=== PATIENT | female | born 1980 | race American Indian/Alaskan Native ===

== ENCOUNTER 2016-07-14 02:54 | Inpatient (IN) | payer MEDICARE, OTHER ==
[2016-07-14 02:54] VITALS: BMI 37.5
[2016-07-14] MEDS ORDERED: Sodium Chloride 0.9% 1,000 ML IV ONE ×2 (03:44→05:05)
[2016-07-14] MEDS ORDERED: Sodium Chloride 0.9% 1,000 ML ONE ×2 (04:02→06:30)
[2016-07-14 04:09] LABS: BASO % 0.5 % (0.0-2.0); EOS # 0.5 K/uL (0.0-0.7); HEMATOCRIT 38.5 % (34.0-47.0); LYMPH # 2.4 K/uL (1.0-4.3); LYMPH % 27.1 % (20.0-40.0); MEAN CELL VOLUME 81.5 fL (81.0-99.0); MEAN CORPUSCULAR HEMOGLOBIN 26.3 pg (27.0-31.0); MEAN CORPUSCULAR HGB CONC 32.2 g/dL (33.0-37.0); MEAN PLATELET VOLUME 7.5 fL (7.2-11.7); MONO # 0.7 K/uL (0.0-0.8); RED CELL DISTRIBUTION WIDTH 15.6 % (11.5-14.5); WHITE BLOOD COUNT 8.7 K/uL (4.8-10.8)
[2016-07-14 04:21] LABS: POTASSIUM 4.3 mmol/L (3.6-5.2)
[2016-07-14 04:24] LABS: ALB/GLOB RATIO 0.7 (1.0-2.1); BILIRUBIN,TOTAL 0.3 mg/dL (0.2-1.3); CALCIUM 8.9 mg/dl (8.6-10.4); TOTAL PROTEIN 8.3 g/dL (6.3-8.3)
--- NOTE | 2016-07-14 05:17 | C.PDOC ---
History Of Present Illness 35 year old patient, with a past medical history of diabetes, hypertension, DVT , HIV, and peripheral edema, presents to the ED complaining of multiple episodes of persistent diarrhea for the past 1 week. Patient also complains of occasional episodes of vomiting, as well as diaphoretis, (but unsure if had a fever). Patient denies any abdominal pain, chest pain, shortness of breath, dysuria/hematuria. She admits to being non-compliant with HAART and is unsure of her CD4 count or viral load. Time Seen by Provider: 07/14/16 03:04 Chief Complaint (Nursing): GI Problem History Per: Patient History/Exam Limitations: no limitations Onset/Duration Of Symptoms: Persistent (1 week) Current Symptoms Are (Timing): Still Present Severity: Moderate Quality Of Discomfort: "Pain" Associated Symptoms: Nausea, Vomiting, Diarrhea, Other Exacerbating Factors: None Alleviating Factors: None Last Bowel Movement: Today Past Medical History Reviewed: Historical Data, Nursing Documentation, Vital Signs Vital Signs: Last Vital Signs Temp 97.9 F 07/15/16 08:00 Pulse 98 H 07/15/16 08:00 Resp 20 07/15/16 08:00 BP 136/88 07/15/16 08:00 Pulse Ox 98 07/15/16 08:00 - Medical History PMH: Depression, Diabetes, Deep Vein Thrombosis, HIV, HTN, Peripheral Edema, Chronic Pain Surgical History: - [facility] Procedures ANAL FISTULOTOMY (03/15/13) CENTRAL VENOUS CATHETER PLACEMENT WITH GUIDANCE (08/24/13) DEBRIDEMENT OF NAIL, NAIL BED OR NAIL FOLD (07/09/14) DETACHMENT AT LEFT 1ST TOE, COMPLETE, OPEN APPROACH (02/12/16) DETACHMENT AT LEFT 3RD TOE, COMPLETE, OPEN APPROACH (03/20/15) DETACHMENT AT LEFT 4TH TOE, COMPLETE, OPEN APPROACH (03/20/15) DETACHMENT AT LEFT FOOT, PARTIAL 3RD RAY, OPEN APPROACH (10/23/15) DETACHMENT AT LEFT FOOT, PARTIAL 4TH RAY, OPEN APPROACH (10/23/15) DRAINAGE OF BUTTOCK SUBCU/FASCIA, OPEN APPROACH (05/16/15) DRAINAGE OF LEFT FOOT, OPEN APPROACH (06/11/15) ELECTROCOAG RECT LES NEC (03/15/13) EXCIS DEBRIDE OF WOUND, INFECT, OR BURN (08/28/14) EXCISION OF L FOOT SUBCU/FASCIA, OPEN APPROACH (10/23/15) EXCISION OF LEFT FOOT SKIN, EXTERNAL APPROACH (06/27/15) EXCISION OF LEFT METATARSAL, OPEN APPROACH (02/12/16) EXCISION OF LEFT TOE PHALANX, OPEN APPROACH (02/12/16) EXCISION OF TOE NAIL, EXTERNAL APPROACH (02/12/16) INJECT ANTIBIOTIC (02/08/14) INJECT STEROID (02/09/12) INJECTION INTO JOINT (02/09/12) INSERTION OF INFUSION DEV INTO L SUBCLAV VEIN, PERC APPROACH (10/23/15) INSERTION OF INFUSION DEV INTO SUP VENA CAVA, PERC APPROACH (02/12/16) LOC EXC LES METATAR/TAR (12/09/13) OTH LOCAL EXC OR DEST OF LESION OR TISSUE OF ANUS (03/15/13) OTHER SKIN & SUBQ I D (10/24/14) PART OSTECT-METATAR/TAR (07/09/14) VASCULAR CATH IRRIGATION (01/10/14) VENOUS CATHETERIZATION NEC (01/18/14) Family History: States: ID, CAD, Diabetes, Hypertension - Social History Hx Tobacco Use: No Hx Alcohol Use: Yes Hx Substance Use: No - Immunization History Hx Tetanus Toxoid Vaccination: Yes Hx Influenza Vaccination: No Hx Pneumococcal Vaccination: Yes Review Of Systems Except As Marked, All Systems Reviewed And Found Negative. Constitutional: Positive for: Sweats. Negative for: Fever Cardiovascular: Negative for: Chest Pain, Palpitations Respiratory: Negative for: Cough, Shortness of Breath Gastrointestinal: Positive for: Nausea, Vomiting, Diarrhea. Negative for: Abdominal Pain Genitourinary: Negative for: Dysuria, Hematuria Physical Exam - Physical Exam Appears: Well, Non-toxic, No Acute Distress Skin: Warm, Dry Head: Normacephalic Eye(s): bilateral: Normal Inspection Oral Mucosa: Moist Throat: Normal Neck: Normal, Normal ROM, Supple Cardiovascular: Rhythm Regular (tachycardic) Respiratory: Normal Breath Sounds, No Rales, No Rhonchi, No Wheezing Gastrointestinal/Abdominal: Normal Exam, Bowel Sounds, Soft, No Tenderness, No Guarding, No Rebound, Other (obese) Back: Normal Inspection, No CVA Tenderness Extremity: Normal ROM Neurological/Psych: Oriented x3 Gait: Steady ED Course And Treatment - Laboratory Results Result Diagrams: 07/14/16 04:04 07/14/16 04:04 O2 Sat by Pulse Oximetry: 100 (RA) Pulse Ox Interpretation: Normal Progress Note: Blood work ordered and reviewed. Patient given IV NS bolus. Patient without abdominal pain currently, did not need pain medication. - Physician Consult Information Physician Contacted: Art Nathan Outcome Of Conversation: Spoke with Dr. Haven Nathan, agrees with admission for dehydration, acute renal failure, persistent diarrhea, HIV noncompliant with HAART. Dr. Del Valle is ID. Disposition - Disposition Disposition: HOSPITALIZED Disposition Time: 06:14 Condition: STABLE - Clinical Impression Clinical Impression: Dehydration, GAEL (acute kidney injury), Diarrhea, HIV (human immunodeficiency virus infection), Noncompliance with medication regimen - Scribe Statement The provider has reviewed the documentation as recorded by the Scribe Linda Nathan Provider Attestation: All medical record entries made by the Scribe were at my direction and personally dictated by me. I have reviewed the chart and agree that the record accurately reflects my personal performance of the history, physical exam, medical decision making, and the department course for this patient. I have also personally directed, reviewed, and agree with the discharge instructions and disposition. Decision To Admit - Pt Status Changed To: Hospital Disposition Of: Inpatient - Admit Certification Admit to Inpatient:: After my assessment, the patient will require hospitalization for at least two midnights. This is because of the severity of symptoms shown, intensity of services needed, and/or the medical risk in this patient being treated as an outpatient. - InPatient: Physician Admission Certification: I certify that this patient requires 2 or more midnights of care for the following reason:: see notes - . Bed Request Type: Regular Admitting Physician: Art Nathan Patient Diagnosis: Dehydration, GAEL (acute kidney injury), Diarrhea, HIV (human immunodeficiency virus infection), Noncompliance with medication regimen
[2016-07-14] MEDS ORDERED: Sodium Chloride 0.9% 0 ML IV ONE (06:30)
--- NOTE | 2016-07-14 10:08 | HP ---
This is a 35-year-old female, came to the Emergency Room with history of multiple episodes of persist ent diarrhea for the past week. The patient also complains of subscapular episodes of vomiting. Per the patient, also diaphoretic. The patient is unsure about the fever. The patient denies having an y abdominal pain, chest pain, or shortness of breath. No dysuria or hematuria. The patient reports she is noncompliant with her medications, and unsure about her CD4 count. REVIEW OF SYSTEMS: CARDIOVASCULAR SYSTEM: Negative for chest pain. RESPIRATORY SYSTEM: Positive for cough. No shortness of breath. GASTROINTESTINAL SYSTEM: As mentioned above. CENTRAL NERVOUS SYSTEM: Generalized weakness present. No loss of consciousness. No edema of the le gs. The patient has a history of osteomyelitis. No urinary complaints. All other systems are negative. PSYCHIATRICALLY: The patient is stable. PAST HISTORY: History of HIV positive, diabetes, hypertension, deep vein thrombosis, peripheral new a. Depression. Chronic pain. ALLERGIES: THE PATIENT IS ALLERGIC TO TYLENOL, ASPIRIN, KETOROLAC. FAMILY HISTORY: No known inherited disease. SOCIAL HISTORY: Alcohol use present. No tobacco, and denies IVDA. MEDICATIONS: Reviewed by me. On physical examination, this is a 35-year-old female, awake, alert, weak, with fatigue. Temperature 97.8, pulse 95, respiration 18, and blood pressure 125/87 mmHg, pulse ox is 100 at room a ir. HENT: Normal. JVP is flat. Carotids, no bruits. LUNGS: No rales, no wheezing. HEART: S1, S2 normal. No gallop, no murmur. ABDOMEN: Soft, nontender, no organomegaly. CENTRAL NERVOUS SYSTEM: No focal neurological deficits. SKIN: Dry and warm. On admission, white cell count is within normal limit. Hemoglobin is 12.4. BUN is 28, and creatinin e is 2.9. Blood sugar is 224. Potassium is 4.3. Chest x-ray is within normal limits. IMPRESSION: Severe dehydration. Acute renal failure. Persistent diarrhea. HIV positive. PLAN: The patient will be admitted to the floor. Will give IV fluids. Consult Dr. Del Valle for ID. Other workup as needed. Art Nathan MD cc: [phone] TT: 07/14/2016 10:07:33 jn
[2016-07-14 10:54] VITALS: RESP 20
[2016-07-14] MEDS: Sodium Chloride 0.9% 1,000 ML IV SCH ×2 (11:55→19:15)
--- NOTE | 2016-07-14 13:38 | CP.PCM.PN ---
Subjective - Date & Time of Evaluation Date of Evaluation: 07/14/16 Time of Evaluation: 13:35 - Subjective Subjective: FOUL SMELLING LT FOOT INF. AFEBRILE. DIARRHOEA. Objective - Vital Signs/Intake and Output Vital Signs (last 24 hours): Temp Pulse Resp BP Pulse Ox 98.3 F 77 20 137/94 H 99 07/14/16 10:30 07/14/16 10:30 07/14/16 10:30 07/14/16 10:30 07/14/16 10:30 - Medications Medications: Current Medications Sodium Chloride (Sodium Chloride 0.9%) 1,000 mls @ 100 mls/hr IV .Q10H [facility] Last Admin: 07/14/16 11:55 Dose: 100 mls/hr Insulin Aspart (Novolog) 0 unit SC ACHS [facility] PRN Reason: Protocol - Constitutional Appears: No Acute Distress, Chronically Ill - Eye Exam Eye Exam: Normal appearance, PERRL - ENT Exam ENT Exam: Normal Exam - Respiratory Exam Respiratory Exam: Clear to Ausculation Bilateral, NORMAL BREATHING PATTERN - Cardiovascular Exam Cardiovascular Exam: REGULAR RHYTHM, +S1, +S2 - GI/Abdominal Exam GI & Abdominal Exam: Soft, Normal Bowel Sounds - Neurological Exam Neurological Exam: Alert - Psychiatric Exam Psychiatric exam: Normal Affect, Normal Mood - Additional Findings Additional findings: LT FOOT INF. Assessment and Plan - Assessment and Plan (Free Text) Assessment: DEHYDRATION. DIARRHOEA. ARG. DM. LT FOOT OSTEO. Plan: ID AND PODIATRY EVAL.
--- NOTE | 2016-07-14 16:39 | CP.PCM.CON ---
History of Present Illness - History of Present Illness History of Present Illness: 35 y/o female well known by podiatry with left foot ulcerations. Patient presents to the hospital today due to having persistant diarrhea and vomitting for the past week. Patient states that she hasnt been following up with Dr. Coy or Eligio but has been trying to manage her wounds and has been changing her dressings at home. Patient states that she doenst feel like her infection is coming from her foot this tmie but rather feels like she has symptoms of food poisining. Patient denies having any chills or feeling febrile at home. Denies any trauma to the foot. Denies any other pedal complaints. Is present in a [place] DSD. Past Patient History - Infectious Disease Hx of Infectious Diseases: None - Past Medical History & Family History Past Medical History?: Yes - Past Social History Smoking Status: Light Smoker < 10 Cigarettes Daily - CARDIAC Hx Hypertension: Yes Hx Peripheral Edema: Yes - PULMONARY Hx Respiratory Disorders: No - NEUROLOGICAL Hx Neurological Disorder: No - HEENT Hx HEENT Problems: No - RENAL Hx Chronic Kidney Disease: No - HEMATOLOGICAL/ONCOLOGICAL Hx Human Immunodeficiency Virus (HIV): Yes - INTEGUMENTARY Hx Dermatological Problems: Yes Other/Comment: ULCER BOTTOM LEFT FOOT LEFT FOOT SUTURE LINES TOES - MUSCULOSKELETAL/RHEUMATOLOGICAL Hx Musculoskeletal Disorders: Yes Hx Falls: No Hx Osteomyelitis: Yes (LEFT FOOT, receiving daily infusion) - GASTROINTESTINAL Hx Gastrointestinal Disorders: No - GENITOURINARY/GYNECOLOGICAL Hx Genitourinary Disorders: No - PSYCHIATRIC Hx Depression: Yes Hx Substance Use: No - ANESTHESIA Hx Anesthesia: Yes Hx Anesthesia Reactions: No (unknown) Hx Malignant Hyperthermia: No Meds Allergies/Adverse Reactions: Allergies Allergy/AdvReac Type Severity Reaction Status Date / Time acetaminophen [From Tylenol] Allergy RASH Verified 04/25/16 14:37 aspirin Allergy RASH Verified 04/25/16 14:37 ketorolac tromethamine Allergy RASH Verified 04/25/16 14:37 [From Toradol] meperidine HCl [From Demerol] Allergy RASH Verified 04/25/16 14:37 oxycodone HCl [From Percocet] Allergy RASH Verified 04/25/16 14:37 peas Allergy ANAPHYLAXIS Verified 04/25/16 14:37 propoxyphene napsylate Allergy RASH Verified 04/25/16 14:37 [From Darvocet-N] - Medications Medications: Current Medications Amlodipine Besylate (Norvasc) 5 mg PO DAILY [facility] Heparin Sodium (Porcine) (Heparin) 5,000 units SC Q12 [facility] Home Med (Descovy 200-25 Mg Tablet) 1 tab PO DAILY [facility] Sodium Chloride (Sodium Chloride 0.9%) 1,000 mls @ 100 mls/hr IV .Q10H [facility] Last Admin: 07/14/16 11:55 Dose: 100 mls/hr Insulin Aspart (Novolog) 0 unit SC ACHS [facility] PRN Reason: Protocol Insulin Aspart (Novolog) 16 unit SC BID [facility] Insulin Glargine (Lantus) 16 unit SC HS [facility] Pneumococcal Polyvalent Vaccine (Pneumovax 23 Vaccine) 0.5 ml IM .ONCE ONE Stop: 07/17/16 14:01 Sertraline HCl (Zoloft) 50 mg PO DAILY [facility] Physical Exam - Constitutional Appears: Well, Non-toxic, No Acute Distress - Neurological Exam Neurological exam: Alert, Oriented x3 - Psychiatric Exam Psychiatric exam: Normal Affect, Normal Mood - Skin Skin Exam: Warm - Additional Findings Additional findings: Vasc: DP/PT non palp, Temp gradient wnl, Cap fill time diminished Derm: Porter grade 2 (possible 3?) present on the plantar aspect of the patients left foot, does not prob to bone, soft tissue felt, no undermining, (+ ) odor, no drainage, no purulence, no erythema, mild non pitting edema noted, small superficial lesion noted on plantar lateral aspect of the left foot, does not probe deep, fissured lesion, Neuro: Grossly diminished Ortho: Previous amputation. Results - Vital Signs Recent Vital Signs: Last Vital Signs Temp 97.5 F L 07/14/16 15:32 Pulse 90 07/14/16 15:32 Resp 20 07/14/16 15:32 BP 163/111 H 07/14/16 15:32 Pulse Ox 96 07/14/16 15:32 - Labs Result Diagrams: 07/14/16 04:04 07/14/16 04:04 Labs: Laboratory Results - last 24 hr 07/14/16 13:01 POC Glucose (mg/dL) 158 H Assessment & Plan - Assessment and Plan (Free Text) Assessment: 35 y/o female seen and evaluated with left foot porter grade 2 possible 3 ulceration. Plan: Patient evaluated and chart reviewed Discussed with Dr. Coy At this time foot does not appear clinically infected; although may need MRI to r/o any underlying OM. Order placed for new set of x-rays to be taken for beginning evaluation. Wound culture taken. Wound was flushed with betadine/saline mixture and redressed with betadine wet to dry and DSD. Will continue to follow while admitted
[2016-07-14] MEDS: (Novolog) Insulin Aspart, Recombinant 100 u/ml 10 ml vial SC SCH ×3 (17:24→22:00)
[2016-07-14] MEDS ORDERED: (Lantus) Insulin Glargine, Recombinant SC SCH (22:00)
[2016-07-15] MEDS: Sodium Chloride 0.9% 1,000 ML IV SCH (06:12)
[2016-07-15 09:58] VITALS: BP 136/88; PULSE 98; TEMP 97.9
[2016-07-15] MEDS ORDERED: DESCOVY PO SCH (10:00)
[2016-07-15] MEDS: (Novolog) Insulin Aspart, Recombinant 100 u/ml 10 ml vial SC SCH ×2 (10:23→10:47)
--- NOTE | 2016-07-15 10:48 | CP.PCM.PN ---
Subjective - Date & Time of Evaluation Date of Evaluation: 07/15/16 Time of Evaluation: 10:45 - Subjective Subjective: 35 y/o female with left foot ulceration with previous amputation. Patient is awake in bed stating she is frustrated that no one is treating her stomach as her diarrhea is still the worst problem she is facing. States that her foot feels fine at this time. Denies any actue overnight events. Denies any f/c/n/sob. Objective - Vital Signs/Intake and Output Vital Signs (last 24 hours): Temp Pulse Resp BP Pulse Ox 97.9 F 98 H 20 136/88 98 07/15/16 08:00 07/15/16 08:00 07/15/16 08:00 07/15/16 08:00 07/15/16 08:00 - Medications Medications: Current Medications Amlodipine Besylate (Norvasc) 5 mg PO DAILY [facility] Heparin Sodium (Porcine) (Heparin) 5,000 units SC Q12 [facility] Last Admin: 07/14/16 22:00 Dose: Not Given Home Med (Descovy 200-25 Mg Tablet) 1 tab PO DAILY [facility] Sodium Chloride (Sodium Chloride 0.9%) 1,000 mls @ 100 mls/hr IV .Q10H [facility] Last Admin: 07/15/16 06:12 Dose: Not Given Insulin Aspart (Novolog) 0 unit SC ACHS [facility] PRN Reason: Protocol Last Admin: 07/15/16 10:23 Dose: Not Given Insulin Aspart (Novolog) 16 unit SC BID [facility] Last Admin: 07/14/16 17:24 Dose: Not Given Insulin Glargine (Lantus) 16 unit SC HS [facility] Last Admin: 07/14/16 22:00 Dose: Not Given Pneumococcal Polyvalent Vaccine (Pneumovax 23 Vaccine) 0.5 ml IM .ONCE ONE Stop: 07/17/16 14:01 Sertraline HCl (Zoloft) 50 mg PO DAILY [facility] - Constitutional Appears: Well, Non-toxic - Neurological Exam Neurological Exam: Alert, Awake, Oriented x3 - Psychiatric Exam Psychiatric exam: Normal Affect, Normal Mood - Skin Skin Exam: Normal Color, Warm - Additional Findings Additional findings: Vasc: DP/PT non palp, Temp gradient wnl, Cap fill time diminished Derm: Porter grade 2 present on the plantar aspect of the patients left foot, does not prob to bone, soft tissue felt, no undermining, (+) odor, no drainage, no purulence, no erythema, mild non pitting edema noted, small superficial lesion noted on plantar lateral aspect of the left foot, does not probe deep, fissured lesion, Neuro: Grossly diminished Ortho: Previous amputation. Assessment and Plan - Assessment and Plan (Free Text) Assessment: 35 y/o female with right foot ulcerations secondary to diabetes. Plan: Patient evaluated and chart reviewed. Discussed with Dr. Coy. Discussed with Dr. Del Valle Labs evaluated; x-rays evaluated; will await final read At this time foot appears to be stable clinically; there is some bony overgrowth /chronic osteo picture on the xrays Will await culture from foot; Redressed with betadine wet to dry and DSD. Will continue to follow while admitted.
--- NOTE | 2016-07-15 11:08 | CP.PCM.PN ---
Subjective - Date & Time of Evaluation Date of Evaluation: 07/15/16 Time of Evaluation: 11:08 - Subjective Subjective: alert and oriented x3, no acute distress noted. Objective - Vital Signs/Intake and Output Vital Signs (last 24 hours): Temp Pulse Resp BP Pulse Ox 97.9 F 98 H 20 136/88 98 07/15/16 08:00 07/15/16 08:00 07/15/16 08:00 07/15/16 08:00 07/15/16 08:00 - Medications Medications: Current Medications Amlodipine Besylate (Norvasc) 5 mg PO DAILY [facility] Last Admin: 07/15/16 10:42 Dose: 5 mg Heparin Sodium (Porcine) (Heparin) 5,000 units SC Q12 [facility] Last Admin: 07/15/16 10:47 Dose: Not Given Home Med (Descovy 200-25 Mg Tablet) 1 tab PO DAILY [facility] Sodium Chloride (Sodium Chloride 0.9%) 1,000 mls @ 100 mls/hr IV .Q10H [facility] Last Admin: 07/15/16 06:12 Dose: Not Given Insulin Aspart (Novolog) 0 unit SC ACHS [facility] PRN Reason: Protocol Last Admin: 07/15/16 10:23 Dose: Not Given Insulin Aspart (Novolog) 16 unit SC BID [facility] Last Admin: 07/15/16 10:47 Dose: Not Given Insulin Glargine (Lantus) 16 unit SC HS [facility] Last Admin: 07/14/16 22:00 Dose: Not Given Pneumococcal Polyvalent Vaccine (Pneumovax 23 Vaccine) 0.5 ml IM .ONCE ONE Stop: 07/17/16 14:01 Sertraline HCl (Zoloft) 50 mg PO DAILY [facility] Last Admin: 07/15/16 10:42 Dose: 50 mg Assessment and Plan - Assessment and Plan (Free Text) Assessment: Patient notified very angry and un co-operative with needed treatments and threatening to go home. Tried to help and support but says he is unhappy with everything here and will go to some other hospital. Refused sign AMA form also.
--- NOTE | 2016-07-15 12:53 | CP.PCM.PN ---
Subjective - Date & Time of Evaluation Date of Evaluation: 07/15/16 Time of Evaluation: 10:00 - Subjective Subjective: PT NON CO-OPERATIVE. REFUSING IV FLUIDS. NO COMPLAINTS. Objective - Vital Signs/Intake and Output Vital Signs (last 24 hours): Temp Pulse Resp BP Pulse Ox 97.9 F 98 H 20 136/88 98 07/15/16 08:00 07/15/16 08:00 07/15/16 08:00 07/15/16 08:00 07/15/16 08:00 - Constitutional Appears: Non-toxic, No Acute Distress, Chronically Ill - Eye Exam Eye Exam: Normal appearance - ENT Exam ENT Exam: Normal Exam - Respiratory Exam Respiratory Exam: Clear to Ausculation Bilateral, NORMAL BREATHING PATTERN - Cardiovascular Exam Cardiovascular Exam: REGULAR RHYTHM, +S1, +S2 - GI/Abdominal Exam GI & Abdominal Exam: Soft, Normal Bowel Sounds - Extremities Exam Extremities Exam: Full ROM, Normal Capillary Refill, Normal Inspection. absent : Joint Swelling, Pedal Edema - Back Exam Back Exam: NORMAL INSPECTION - Neurological Exam Neurological Exam: Alert, Awake, CN II-XII Intact, Normal Gait, Oriented x3 Assessment and Plan - Assessment and Plan (Free Text) Assessment: DEHYDRATION. Plan: PT SIGNED OUT AMA.
--- NOTE | 2016-07-16 09:58 | RAD ---
PROCEDURE: Left Foot Radiographs. HISTORY: eval OM left foot COMPARISON: 02/21/2016 FINDINGS: BONES: The patient is amputation the 1st distal phalanges. Postop partial bony resections of the 2nd 3rd 4th and 5th proximal phalanges and corresponding distal metatarsals are renoted. The callus formation is exuberant over the 2nd through 5th metatarsal postop sites. Since the prior exam, minimal increased sclerosis -affects proximal phalanx and generalized increased density/ sclerosis of the exuberant callus formation is suggested. No gross interval periosteal reaction is appreciated. No gross osseous interval focal destruction apparent. The findings are believe insensitive for assessing for chronic osteomyelitis. No gross focal acute aggressive osteomyelitis is appreciated. If there is concern for any ulcer and regional focal osteomyelitis, an MRI may be more sensitive in evaluating for possible osteomyelitis JOINTS: Altered as above SOFT TISSUES: Normal. Soft tissues are grossly altered with edema and probable plantar lateral ulcer formation suggested. This is likely if present much more clinically evident than radiographically. OTHER FINDINGS: None. IMPRESSION: Extensive postop bony and soft tissue changes as detailed . No gross osseous interval focal destruction apparent. The findings are believed insensitive for assessing for chronic osteomyelitis given the sclerotic changes. No gross focal acute aggressive appearing osteomyelitis is appreciated. If there is concern for any ulcer and an associated regional focal osteomyelitis, an MRI may be more sensitive in evaluating for possible osteomyelitis there.
[2016-07-17] MEDS ORDERED: Pneumococcal 23-Valent Vaccine IM ONE (14:00)
[2016-07-19 18:19] VITALS: O2SAT 100
== END 2016-07-15 11:30 | disposition left against medical advice (07) | DRG 683 ==
LOC: C.ER 02:54 → C.9E 06:14 → C.5T 09:58 → C.7T 07-15 02:00 → C.5T 07-15 08:11
PROVIDERS: ADMIT Internal Medicine; ATTEND Internal Medicine
DX: N17.9 Acute kidney failure, unspecified (principal); I82.409 Acute embolism and thrombosis of unspecified deep veins of unspecified lower extremity; E11.621 Type 2 diabetes mellitus with foot ulcer; M86.9 Osteomyelitis, unspecified; E86.0 Dehydration; I10 Essential (primary) hypertension; Z21 Asymptomatic human immunodeficiency virus [HIV] infection status; Z91.14 Patient's other noncompliance with medication regimen; F32.9 Major depressive disorder, single episode, unspecified; F17.210 Nicotine dependence, cigarettes, uncomplicated; L97.529 Non-pressure chronic ulcer of other part of left foot with unspecified severity; Z79.4 Long term (current) use of insulin; E11.69 Type 2 diabetes mellitus with other specified complication

== ENCOUNTER 2016-10-29 14:24 | Inpatient (IN) | payer MEDICARE ==
[2016-10-29 14:24] VITALS: BMI 37.5
[2016-10-29] MEDS ORDERED: Piperacillin/Tazobact 3.375 GM in Sodium Chloride 100 ML IVPB STA (16:33)
--- NOTE | 2016-10-29 16:34 | C.PDOC ---
History Of Present Illness 36-year-old transgender female, PMHx includes Depression, Diabetes, Deep Vein Thrombosis, HIV, HTN, Peripheral Edema, and Chronic Pain, presents to the emergency department with complaints of left foot pain and swelling for the past 3-4 days. Patient states she took a tablet of Augmentin with no improvement. Notes difficulty walking due to pain. Time Seen by Provider: 10/29/16 15:55 Chief Complaint (Nursing): Fever History Per: Patient History/Exam Limitations: no limitations Onset/Duration Of Symptoms: Days Current Symptoms Are (Timing): Still Present Past Medical History Reviewed: Historical Data, Nursing Documentation, Vital Signs Vital Signs: Last Vital Signs Temp 98.4 F 10/29/16 18:50 Pulse 106 H 10/29/16 18:50 Resp 20 10/29/16 18:50 BP 106/72 10/29/16 18:50 Pulse Ox 97 10/29/16 19:07 - Medical History PMH: Depression, Diabetes, Deep Vein Thrombosis, HIV, HTN, Peripheral Edema, Chronic Pain Surgical History: - [facility] Procedures ANAL FISTULOTOMY (03/15/13) CENTRAL VENOUS CATHETER PLACEMENT WITH GUIDANCE (08/24/13) DEBRIDEMENT OF NAIL, NAIL BED OR NAIL FOLD (07/09/14) DETACHMENT AT LEFT 1ST TOE, COMPLETE, OPEN APPROACH (02/12/16) DETACHMENT AT LEFT 3RD TOE, COMPLETE, OPEN APPROACH (03/20/15) DETACHMENT AT LEFT 4TH TOE, COMPLETE, OPEN APPROACH (03/20/15) DETACHMENT AT LEFT FOOT, PARTIAL 3RD RAY, OPEN APPROACH (10/23/15) DETACHMENT AT LEFT FOOT, PARTIAL 4TH RAY, OPEN APPROACH (10/23/15) DRAINAGE OF BUTTOCK SUBCU/FASCIA, OPEN APPROACH (05/16/15) DRAINAGE OF LEFT FOOT, OPEN APPROACH (06/11/15) ELECTROCOAG RECT LES NEC (03/15/13) EXCIS DEBRIDE OF WOUND, INFECT, OR BURN (08/28/14) EXCISION OF L FOOT SUBCU/FASCIA, OPEN APPROACH (10/23/15) EXCISION OF LEFT FOOT SKIN, EXTERNAL APPROACH (06/27/15) EXCISION OF LEFT METATARSAL, OPEN APPROACH (02/12/16) EXCISION OF LEFT TOE PHALANX, OPEN APPROACH (02/12/16) EXCISION OF TOE NAIL, EXTERNAL APPROACH (02/12/16) INJECT ANTIBIOTIC (02/08/14) INJECT STEROID (02/09/12) INJECTION INTO JOINT (02/09/12) INSERTION OF INFUSION DEV INTO L SUBCLAV VEIN, PERC APPROACH (10/23/15) INSERTION OF INFUSION DEV INTO SUP VENA CAVA, PERC APPROACH (02/12/16) LOC EXC LES METATAR/TAR (12/09/13) OTH LOCAL EXC OR DEST OF LESION OR TISSUE OF ANUS (03/15/13) OTHER SKIN & SUBQ I D (10/24/14) PART OSTECT-METATAR/TAR (07/09/14) VASCULAR CATH IRRIGATION (01/10/14) VENOUS CATHETERIZATION NEC (01/18/14) Family History: States: [place], CAD, Diabetes, Hypertension - Social History Hx Tobacco Use: No Hx Alcohol Use: Yes Hx Substance Use: No - Immunization History Hx Tetanus Toxoid Vaccination: Yes Hx Influenza Vaccination: No Hx Pneumococcal Vaccination: Yes Review Of Systems Constitutional: Negative for: Fever, Chills Cardiovascular: Negative for: Chest Pain Respiratory: Negative for: Shortness of Breath Gastrointestinal: Negative for: Nausea, Vomiting Musculoskeletal: Positive for: Foot Pain Neurological: Negative for: Weakness, Numbness Physical Exam - Physical Exam Appears: No Acute Distress, Other (awake and alert non-toxic appearing) Skin: Warm, Dry, No Rash Head: Atraumatic, Normacephalic Eye(s): bilateral: Normal Inspection Lips: Normal Appearing Neck: Normal ROM Chest: Symmetrical Cardiovascular: Rhythm Regular, No Murmur Respiratory: Normal Breath Sounds, No Accessory Muscle Use, No Rales, No Rhonchi Gastrointestinal/Abdominal: Soft, No Tenderness Extremity: Other (Left leg markedly enlarged compared to right, there is a healing large venous stasis ulcer to left lateral leg. Left foot: cracked ulcer with foul smelling discharge and swelling) Pulses: Left Dorsalis Pedis: Normal, Right Dorsalis Pedis: Normal Neurological/Psych: Oriented x3, Normal Speech, Normal Cognition ED Course And Treatment - Laboratory Results Result Diagrams: 10/29/16 17:12 10/29/16 17:12 O2 Sat by Pulse Oximetry: 97 Medical Decision Making Medical Decision Making: pt with foot ulcer; fever. dm, hiv. for admission for iv antibiotics and podiattry consult Disposition Discussed With : Art Nathan Doctor Will See Patient In The: Hospital - Disposition Disposition: HOSPITALIZED Disposition Time: 17:14 Condition: STABLE - Clinical Impression Clinical Impression: Ulcer of foot, Diabetic foot infection - PA / INBOUND CALL CENTER REPRESENTATIVE / Resident Statement MD/DO has reviewed & agrees with the documentation as recorded. - Scribe Statement The provider has reviewed the documentation as recorded by the Scribe (Gerald Dobbs) All medical record entries made by the Scribe were at my direction and personally dictated by me. I have reviewed the chart and agree that the record accurately reflects my personal performance of the history, physical exam, medical decision making, and the department course for this patient. I have also personally directed, reviewed, and agree with the discharge instructions and disposition. Decision To Admit - Pt Status Changed To: Hospital Disposition Of: Inpatient - Admit Certification Admit to Inpatient:: After my assessment, the patient will require hospitalization for at least two midnights. This is because of the severity of symptoms shown, intensity of services needed, and/or the medical risk in this patient being treated as an outpatient. - InPatient: Physician Admission Certification:: for parenteral antibiotics for foot infection - . Bed Request Type: Regular Admitting Physician: Art Nathan Patient Diagnosis: Ulcer of foot, Diabetic foot infection
[2016-10-29] MEDS ORDERED: Dakin's Topical 0.25%-Half Strength (480 ml) TOP STA (16:52)
[2016-10-29 17:16] LABS: BASO % 0.2 % (0.0-2.0); EOS # 0.1 K/uL (0.0-0.7); EOS % 0.8 % (0.0-4.0); HEMOGLOBIN 10.8 g/dL (11.0-16.0); LYMPH # 1.6 K/uL (1.0-4.3); LYMPH % 15.2 % (20.0-40.0); MEAN CELL VOLUME 83.5 fL (81.0-99.0); MEAN CORPUSCULAR HEMOGLOBIN 27.6 pg (27.0-31.0); MEAN PLATELET VOLUME 7.3 fL (7.2-11.7); MONO # 1.2 K/uL (0.0-0.8); NEUT # 7.9 K/uL (1.8-7.0); NEUT % 72.8 % (50.0-75.0); NRBC % 0.1 % (0.0-2.0); RBC 3.92 Mil/uL (3.80-5.20); RED CELL DISTRIBUTION WIDTH 15.2 % (11.5-14.5); WHITE BLOOD COUNT 10.8 K/uL (4.8-10.8)
[2016-10-29 17:23] LABS: ALBUMIN 3.1 g/dL (3.5-5.0)
[2016-10-29 17:26] LABS: ALB/GLOB RATIO 0.6 (1.0-2.1)
[2016-10-29 17:27] LABS: CALCIUM 8.3 mg/dl (8.6-10.4)
--- NOTE | 2016-10-29 18:03 | CP.PCM.CON ---
<HarshaAliyah - Last Filed: 10/29/16 17:58> History of Present Illness - History of Present Illness History of Present Illness: 36 y/o female with pmhx of Depression, Diabetes, Deep Vein Thrombosis, HIV, HTN , Peripheral Edema, Chronic Pain, seen at bedside in the ED for left foot/leg diabetic ulcerations. Patient is well known to Dr. Coy and has been admitted for the same condition many times in the past. Patient reports fever chills x 3 days and noticed pain in her foot. She states that she has not been able to keep her food down and therefore has not been taking any of her insulin. Patient denies any trauma to her feet. She denies any other pedal complaints at this time. Review of Systems - Constitutional Constitutional: As Per HPI Past Patient History - Infectious Disease Hx of Infectious Diseases: None - Past Medical History & Family History Past Medical History?: Yes - Past Social History Smoking Status: Light Smoker < 10 Cigarettes Daily - CARDIAC Hx Hypertension: Yes Hx Peripheral Edema: Yes - PULMONARY Hx Respiratory Disorders: No - NEUROLOGICAL Hx Neurological Disorder: No - HEENT Hx HEENT Problems: No - RENAL Hx Chronic Kidney Disease: No - HEMATOLOGICAL/ONCOLOGICAL Hx Human Immunodeficiency Virus (HIV): Yes - INTEGUMENTARY Hx Dermatological Problems: Yes Other/Comment: ULCER BOTTOM LEFT FOOT LEFT FOOT SUTURE LINES TOES - MUSCULOSKELETAL/RHEUMATOLOGICAL Hx Musculoskeletal Disorders: Yes Hx Falls: No Hx Osteomyelitis: Yes (LEFT FOOT, receiving daily infusion) - GASTROINTESTINAL Hx Gastrointestinal Disorders: No - GENITOURINARY/GYNECOLOGICAL Hx Genitourinary Disorders: No - PSYCHIATRIC Hx Depression: Yes Hx Substance Use: No - ANESTHESIA Hx Anesthesia: Yes Hx Anesthesia Reactions: No (unknown) Hx Malignant Hyperthermia: No Meds Allergies/Adverse Reactions: Allergies Allergy/AdvReac Type Severity Reaction Status Date / Time acetaminophen [From Tylenol] Allergy RASH Verified 10/29/16 14:43 aspirin Allergy RASH Verified 10/29/16 14:43 ketorolac tromethamine Allergy RASH Verified 10/29/16 14:43 [From Toradol] meperidine HCl [From Demerol] Allergy RASH Verified 10/29/16 14:43 oxycodone HCl [From Percocet] Allergy RASH Verified 10/29/16 14:43 peas Allergy ANAPHYLAXIS Verified 10/29/16 14:43 propoxyphene napsylate Allergy RASH Verified 10/29/16 14:43 [From Shan-[place]] - Medications Medications: Current Medications Vancomycin HCl 1 gm/ Sodium (Chloride) 250 mls @ 166.7 mls/hr IVPB STAT STA Stop: 10/29/16 18:02 Physical Exam - Constitutional Appears: Well, Non-toxic, No Acute Distress - Extremities Exam Additional comments: Vasc: DP/PT non palp, Temp gradient wnl, Cap fill time diminished Derm: Porter grade 2 present on the plantar aspect of the patients left foot, does not prob to bone, soft tissue felt, no undermining, (+) odor, no drainage, no purulence, no erythema, mild non pitting edema noted, superficial lesion noted on lateral aspect of the left leg, does not probe deep, mixed fibro- granular base Neuro: Grossly diminished Ortho: Previous amputation. - Neurological Exam Neurological exam: Alert, Oriented x3 - Psychiatric Exam Psychiatric exam: Normal Affect, Normal Mood Results - Vital Signs Recent Vital Signs: Last Vital Signs Temp 102.3 F H 10/29/16 14:40 Pulse 121 H 10/29/16 14:40 Resp 20 10/29/16 14:40 BP 154/100 H 10/29/16 14:40 Pulse Ox 97 10/29/16 17:22 - Labs Result Diagrams: 10/29/16 17:12 10/29/16 17:12 Labs: Laboratory Results - last 24 hr 10/29/16 10/29/16 17:12 17:12 WBC 10.8 RBC 3.92 Hgb 10.8 L Hct 32.7 L MCV 83.5 D MCH 27.6 MCHC 33.0 RDW 15.2 H Plt Count 258 MPV 7.3 Neut % (Auto) 72.8 Lymph % (Auto) 15.2 L Morrow % (Auto) 11.0 H Eos % (Auto) 0.8 Baso % (Auto) 0.2 Neut # 7.9 H Lymph # 1.6 Morrow # 1.2 H Eos # 0.1 Baso # 0.0 Sodium 134 Potassium 4.6 Chloride 103 Carbon Dioxide 17 L Anion Gap 19 BUN 27 H Creatinine 2.6 H Est GFR ( Amer) 25 Est GFR (Non-Af Amer) 21 Random Glucose 170 H Calcium 8.3 L Total Bilirubin 0.8 AST 31 ALT 27 Alkaline Phosphatase 111 Total Protein 8.6 H Albumin 3.1 L Globulin 5.5 H Albumin/Globulin Ratio 0.6 L Assessment & Plan - Assessment and Plan (Free Text) Assessment: 36 y/o female seen in the ED for left foot / leg ulceration secondary to diabetes Plan: patient evaluated and chart reviewed discussed in detail with attending Dr. Coy labs and vitals reviewed; WBC 10.8, Tmax 102.3 applied dakins solution, DSD to left leg wound cx taken f/u blood cx f/u x rays patient to be admitted for IV abx ID consulted- Dr. Del Valle will continue to follow while patient remains in house <Kalpesh Coy - Last Filed: 11/02/16 09:04> Meds - Medications Medications: Current Medications Amlodipine Besylate (Norvasc) 5 mg PO DAILY [facility] Last Admin: 11/01/16 09:10 Dose: Not Given Diphenhydramine HCl (Benadryl) 25 mg PO Q6 PRN PRN Reason: Itching / Pruritus Last Admin: 11/02/16 06:11 Dose: 25 mg Heparin Sodium (Porcine) (Heparin) 5,000 units SC Q12 [facility] Last Admin: 11/01/16 21:58 Dose: Not Given Piperacillin Sod/Tazobactam Sod (Zosyn 3.375 Gm Iv Premix) 3.375 gm in 50 mls @ 100 mls/hr IVPB Q8H [facility] Last Admin: 11/02/16 01:15 Dose: 100 mls/hr Daptomycin 860 mg/ Sodium (Chloride) 100 mls @ 100 mls/hr IV Q24H [facility] Stop: 11/04/16 21:01 Last Admin: 11/01/16 21:12 Dose: 100 mls/hr Lactated Ringer's (Lactated Ringer's) 1,000 mls @ 100 mls/hr IV .Q10H [facility] Last Admin: 11/01/16 18:33 Dose: 100 mls/hr Insulin Aspart (Novolog) 0 unit SC ACHS [facility] PRN Reason: Protocol Last Admin: 11/02/16 07:58 Dose: Not Given Insulin Glargine (Lantus) 12 unit SC HS [facility] Last Admin: 11/01/16 23:03 Dose: Not Given Morphine Sulfate (Morphine) 2 mg IVP Q6H PRN PRN Reason: Pain, moderate (4-7) Last Admin: 11/02/16 06:20 Dose: 2 mg Ondansetron HCl (Zofran Inj) 4 mg IVP Q6H PRN PRN Reason: nausea and vomiting Sertraline HCl (Zoloft) 50 mg PO DAILY [facility] Last Admin: 11/01/16 10:26 Dose: 50 mg Sodium Hypochlorite (Dakins Solution 0.25%) 0 ml TOP DAILY [facility] Last Admin: 11/01/16 09:08 Dose: Not Given Results - Vital Signs Recent Vital Signs: Last Vital Signs Temp 97.6 F 11/02/16 08:41 Pulse 79 11/02/16 08:41 Resp 20 11/02/16 08:41 BP 159/89 H 11/02/16 08:41 Pulse Ox 98 11/02/16 08:41 - Labs Result Diagrams: 10/29/16 17:12 11/02/16 07:13 Labs: Laboratory Results - last 24 hr 11/01/16 11/01/16 11/01/16 11:27 14:10 14:10 PT 12.9 H INR 1.2 Sodium 139 Potassium 4.3 Chloride 105 Carbon Dioxide 22 Anion Gap 16 BUN 29 H Creatinine 3.0 H Est GFR ( Amer) 21 Est GFR (Non-Af Amer) 18 POC Glucose (mg/dL) 99 Random Glucose 107 H Fasting Glucose 107 H Calcium 8.5 L Total Bilirubin 0.6 AST 23 ALT 24 Alkaline Phosphatase 104 Total Protein 7.9 Albumin 2.7 L Globulin 5.2 H Albumin/Globulin Ratio 0.5 L 11/01/16 11/01/16 11/01/16 16:53 21:06 22:55 PT INR Sodium Potassium Chloride Carbon Dioxide Anion Gap BUN Creatinine Est GFR ( Amer) Est GFR (Non-Af Amer) POC Glucose (mg/dL) 176 H 118 H 159 H Random Glucose Fasting Glucose Calcium Total Bilirubin AST ALT Alkaline Phosphatase Total Protein Albumin Globulin Albumin/Globulin Ratio 11/02/16 11/02/16 07:13 07:13 PT INR Sodium 139 Potassium 4.5 Chloride 104 Carbon Dioxide 24 Anion Gap 16 BUN 32 H Creatinine 3.0 H Est GFR ( Amer) 21 Est GFR (Non-Af Amer) 18 POC Glucose (mg/dL) 116 H Random Glucose 116 H Fasting Glucose Calcium 8.4 L Total Bilirubin 0.5 AST 22 ALT 20 Alkaline Phosphatase 95 Total Protein 7.7 Albumin 2.7 L Globulin 5.1 H Albumin/Globulin Ratio 0.5 L Assessment & Plan - Assessment and Plan (Free Text) Plan: labs and findings reviewed . will discuss with Dr Del Valle .Dr Coy .
[2016-10-29] MEDS ORDERED: Piperacillin/Tazobact 3.375 gm 100 ML IVPB ONE (18:22)
[2016-10-29] MEDS ORDERED: Morphine 4 MG/ML VIAL ONE (18:22)
--- NOTE | 2016-10-29 18:50 | CP.PCM.CON ---
History of Present Illness - History of Present Illness History of Present Illness: 36 y/o female with pmhx of Depression, Diabetes, Deep Vein Thrombosis, HIV, HTN , Peripheral Edema, Chronic Pain, seen at bedside in the ED for left foot/leg diabetic ulcerations. Review of Systems - Constitutional Constitutional: As Per HPI - EENT Eyes: absent: As Per HPI, Blind Spots, Blurred Vision, Change in Vision, Decreased Night Vision, Diplopia, Discharge, Dry Eye, Exophthalmos, Floaters, Irritation, Itchy Eyes, Loss of Peripheral Vision, Pain, Photophobia, Requires Corrective Lenses, Sees Flashes, Spots in Vision, Tunnel Vision, Other Visual Disturbances, Loss of Vision, Other Ears: absent: As Per HPI, Decreased Hearing, Ear Discharge, Ear Pain, Tinnitus, Abnormal Hearing, Disequilibrium, Dizziness, Other Nose/Mouth/Throat: absent: As Per HPI, Epistaxis, Nasal Congestion, Nasal Discharge, Nasal Obstruction, Nasal Trauma, Nose Pain, Post Nasal Drip, Sinus Pain, Sinus Pressure, Bleeding Gums, Change in Voice, Dental Pain, Dry Mouth, Dysphagia, Halitosis, Hoarsness, Lip Swelling, Mouth Lesions, Mouth Pain, Odynophagia, Sore Throat, Throat Swelling, Tongue Swelling, Facial Pain, Neck Pain, Neck Mass, Other - Breasts Breasts: absent: As Per HPI, Change in Shape, Mass, Pain, Nipple Discharge, Nipple Inversion, Skin Changes, Swelling, Other - Cardiovascular Cardiovascular: absent: As Per HPI, Acrocyanosis, Chest Pain, Chest Pain at Rest , Chest Pain with Activity, Claudication, Diaphoresis, Dyspnea, Dyspnea on Exertion, Edema, Irregular Heart Rhythm, Pain Radiating to Arm/Neck/Jaw, Leg Edema, Leg Ulcers, Lightheadedness, Orthopnea, Palpitations, Paroxysmal Nocturnal Dyspnea, Pedal Edema, Radiating Pain, Rapid Heart Rate, Slow Heart Rate, Syncope, Other - Respiratory Respiratory: absent: As Per HPI, Cough, Dyspnea, Hemoptysis, Dyspnea on Exertion , Wheezing, Snoring, Stridor, Pain on Inspiration, Chest Congestion, Excessive Mucous Production, Change in Mucous Color, Pain with Coughing, Other - Gastrointestinal Gastrointestinal: absent: As Per HPI, Abdominal Pain, Belching, Bloating, Change in Bowel Habits, Change in Stool Character, Coffee Ground Emesis, Constipation, Cramping, Diarrhea, Dyspepsia, Dysphagia, Early Satiety, Excessive Flatus, Fecal Incontinence, Heartburn, Hematemesis, Hematochezia, Loose Stools, Melena, Nausea, Odynophagia, Temesmus, Vomiting, Other - Genitourinary Genitourinary: absent: As Per HPI, Change in Urinary Stream, Difficulty Urinating, Dysuria, Flank Pain, Hematuria, Pyuria, Nocturia, Urinary Incontinence, Urinary Frequency, Urinary Hesitance, Urinary Urgency, Voiding Freq/Small Amts, Freq UTI, Hx Renal/Bladder Calculi, Hx /Renal Surgery, Bladder Distension, Other - Reproductive: Female Reproductive:Female: absent: As Per HPI, Amenorrhea, Amenorrhea/ Control, Currently Menstual, Cycle <21 Days, Cycle >35 Days, Cycle Variable, Menses 1-7 Days, Menses >/= 8 Days, Menses Variable, Cycle > 4 Weeks Between, No Menses for 6 Months, Heavy Menses, Light Menses, Normal Menses, Spotting Between Cycles , S/P Hysterectomy, Menopausal, Post Menopausal, Premenarche, Abnormal Vaginal Bleeding, Dysmenorrhea, Dyspareunia, Genital Lesions, Genital Pruritis, Pelvic Pain, Prolapse Symptoms, Sexual Dysfunction, Vaginal Discharge, Vaginal Dryness , Vaginal Odor, Vaginal Pruritis, Other - Menstruation Menstruation: absent: As Per HPI, Amenorrhea, Amenorrhea/ Control, Currently Menstual, Cycle <21 Days, Cycle >35 Days, Cycle Variable, Menses 1-7 Days, Menses >/= 8 Days, Menses Variable, Cycle > 4 Weeks Between, No Menses for 6 Months, Heavy Menses, Light Menses, Normal Menses, Spotting Between Cycles , S/P Hysterectomy, Menopausal, Post Menopausal, Premenarche, Abnormal Vaginal Bleeding, Dysmenorrhea, Other - Musculoskeletal Musculoskeletal: As Per HPI - Integumentary Integumentary: As Per HPI - Neurological Neurological: absent: As Per HPI, Abnormal Gait, Abnormal Hearing, Abnormal Movements, Abnormal Speech, Behavioral Changes, Burning Sensations, Confusion, Convulsions, Disequilibrium, Dizziness, Numbness, Focal Weakness, Frequent Falls , Headaches, Lack of Coordination, Loss of Vision, Memory Loss, Paresthesias, Radicular Pain, Restless Legs, Sensory Deficit, Syncope, Tingling, Tremor, Vertigo, Weakness, Other Visual Disturbances, Other - Psychiatric Psychiatric: absent: As Per HPI, Abnormal Sleep Pattern, Anhedonia, Anxiety, Auditory Hallucinations, Behavioral Changes, Change in Appetite, Change in Libido, Confusion, Depression, Difficulty Concentrating, Hallucinations, Homicidal Ideation, Hopelessness, Irritability, Memory Loss, Mood Swings, Panic Attacks, Paranoia, Suicidal Ideation, Visual Hallucinations, Tactile Hallucinations, Other - Endocrine Endocrine: absent: As Per HPI, Change in Body Appearance, Change in Libido, Cold Intolorance, Deepening of Voice, Excessive Sweating, Fatigue, Flushing, Heat Intolorance, Increase in Ring/Shoe/Hat Size, Palpitations, Polydipsia, Polyphagia, Polyuria, Other - Hematologic/Lymphatic Hematologic: absent: As Per HPI, Easy Bleeding, Easy Bruising, Lymphadenopathy, Other Past Patient History - Infectious Disease Hx of Infectious Diseases: None - Past Medical History & Family History Past Medical History?: Yes - Past Social History Smoking Status: Light Smoker < 10 Cigarettes Daily - CARDIAC Hx Hypertension: Yes Hx Peripheral Edema: Yes - PULMONARY Hx Respiratory Disorders: No - NEUROLOGICAL Hx Neurological Disorder: No - HEENT Hx HEENT Problems: No - RENAL Hx Chronic Kidney Disease: No - HEMATOLOGICAL/ONCOLOGICAL Hx Human Immunodeficiency Virus (HIV): Yes - INTEGUMENTARY Hx Dermatological Problems: Yes Other/Comment: ULCER BOTTOM LEFT FOOT LEFT FOOT SUTURE LINES TOES - MUSCULOSKELETAL/RHEUMATOLOGICAL Hx Musculoskeletal Disorders: Yes Hx Falls: No Hx Osteomyelitis: Yes (LEFT FOOT, receiving daily infusion) - GASTROINTESTINAL Hx Gastrointestinal Disorders: No - GENITOURINARY/GYNECOLOGICAL Hx Genitourinary Disorders: No - PSYCHIATRIC Hx Depression: Yes Hx Substance Use: No - ANESTHESIA Hx Anesthesia: Yes Hx Anesthesia Reactions: No (unknown) Hx Malignant Hyperthermia: No Meds Allergies/Adverse Reactions: Allergies Allergy/AdvReac Type Severity Reaction Status Date / Time acetaminophen [From Tylenol] Allergy RASH Verified 10/29/16 14:43 aspirin Allergy RASH Verified 10/29/16 14:43 ketorolac tromethamine Allergy RASH Verified 10/29/16 14:43 [From Toradol] meperidine HCl [From Demerol] Allergy RASH Verified 10/29/16 14:43 oxycodone HCl [From Percocet] Allergy RASH Verified 10/29/16 14:43 peas Allergy ANAPHYLAXIS Verified 10/29/16 14:43 propoxyphene napsylate Allergy RASH Verified 10/29/16 14:43 [From Darvocet-N] - Medications Medications: Current Medications Piperacillin Sod/Tazobactam (Sod 3.375 gm/ Sodium Chloride) 100 mls @ 200 mls/ hr IVPB Q8H [facility] Physical Exam - Constitutional Appears: Non-toxic, Chronically Ill - Head Exam Head Exam: NORMOCEPHALIC - Eye Exam Eye Exam: PERRL. absent: Scleral icterus - ENT Exam ENT Exam: Mucous Membranes Dry, Normal External Ear Exam - Neck Exam Neck exam: Negative for: Lymphadenopathy - Respiratory Exam Respiratory Exam: Decreased Breath Sounds, Rhonchi - Cardiovascular Exam Cardiovascular Exam: REGULAR RHYTHM, +S1, +S2 - GI/Abdominal Exam GI & Abdominal Exam: Diminished Bowel Sounds, Soft. absent: Tenderness - Rectal Exam Rectal Exam: Deferred - Exam Exam: NORMAL INSPECTION - Extremities Exam Extremities exam: Positive for: calf tenderness, pedal edema, tenderness. Negative for: pedal pulses present - Back Exam Back exam: absent: CVA tenderness (L), CVA tenderness (R) - Neurological Exam Neurological exam: Alert, CN II-XII Intact, Oriented x3, Reflexes Normal - Psychiatric Exam Psychiatric exam: Normal Mood - Skin Skin Exam: Dry Results - Vital Signs Recent Vital Signs: Last Vital Signs Temp 102.3 F H 10/29/16 14:40 Pulse 121 H 10/29/16 14:40 Resp 20 10/29/16 14:40 BP 154/100 H 10/29/16 14:40 Pulse Ox 97 10/29/16 17:22 - Labs Result Diagrams: 10/29/16 17:12 10/29/16 17:12 Labs: Laboratory Results - last 24 hr 10/29/16 10/29/16 17:12 17:12 WBC 10.8 RBC 3.92 Hgb 10.8 L Hct 32.7 L MCV 83.5 D MCH 27.6 MCHC 33.0 RDW 15.2 H Plt Count 258 MPV 7.3 Neut % (Auto) 72.8 Lymph % (Auto) 15.2 L Jack % (Auto) 11.0 H Eos % (Auto) 0.8 Baso % (Auto) 0.2 Neut # 7.9 H Lymph # 1.6 Jack # 1.2 H Eos # 0.1 Baso # 0.0 Sodium 134 Potassium 4.6 Chloride 103 Carbon Dioxide 17 L Anion Gap 19 BUN 27 H Creatinine 2.6 H Est GFR ( Amer) 25 Est GFR (Non-Af Amer) 21 Random Glucose 170 H Calcium 8.3 L Total Bilirubin 0.8 AST 31 ALT 27 Alkaline Phosphatase 111 Total Protein 8.6 H Albumin 3.1 L Globulin 5.5 H Albumin/Globulin Ratio 0.6 L Assessment & Plan (1) Diabetic foot infection Status: Acute (2) Ulcer of foot Status: Acute (3) GAEL (acute kidney injury) Status: Acute Priority: Medium (4) Abscess and cellulitis Status: Acute (5) Dehydration Status: Acute (6) Morbid obesity with BMI of 40.0-44.9, adult Status: Acute (7) Depression Status: Chronic (8) HIV (human immunodeficiency virus infection) Status: Chronic - Assessment and Plan (Free Text) Assessment: await cultures 'may need 6 weeks iv rx may need or DEBRIDEMENT
[2016-10-29] MEDS ORDERED: Vancomycin 1 GM 1 GM/250 ML BAG IVPB ONE (20:15)
[2016-10-29] MEDS: (Lantus) Insulin Glargine, Recombinant SC SCH (23:15)
[2016-10-29] MEDS: Morphine 4 MG/ML VIAL IVP PRN (23:22)
[2016-10-30] MEDS: Piperacill/Tazo 3.375gm in Dex 3.375 GM/50 ML BAG IVPB SCH ×3 (02:50→17:41)
[2016-10-30] MEDS: Morphine 4 MG/ML VIAL IVP PRN ×4 (05:40→23:41)
[2016-10-30] MEDS: (Novolog) Insulin Aspart, Recombinant 100 u/ml 10 ml vial SC SCH ×4 (07:40→21:19)
--- NOTE | 2016-10-30 11:44 | RAD ---
PROCEDURE: Left Foot Radiographs. HISTORY: swollen foot with ulcer COMPARISON: 07/15/2016. FINDINGS: BONES: No significant change with respect to osseous structures, multiple surgical sites with respect to osteotomies and 1st digit resection. JOINTS: No significant interval change compared to the prior examination(s). SOFT TISSUES: Profound soft tissue swelling, plantar ulcers again identified. No obvious/ apparent air within the soft tissues. OTHER FINDINGS: None. IMPRESSION: Markedly swollen soft tissues, plantar ulcer, no compelling evidence radiographically for acute osteomyelitis.
--- NOTE | 2016-10-30 12:16 | CP.PCM.PN ---
Subjective - Date & Time of Evaluation Date of Evaluation: 10/30/16 Time of Evaluation: 12:13 - Subjective Subjective: 36 y/o female seen at bedside in the ED for left foot/leg diabetic ulcerations. Patient denies any acute events overnight. She states she was able to get decent sleep last night. Patient denies any trauma to her feet. She denies any other pedal complaints at this time. Objective - Vital Signs/Intake and Output Vital Signs (last 24 hours): Temp Pulse Resp BP Pulse Ox 98 F 100 H 20 137/84 99 10/30/16 07:30 10/30/16 07:30 10/30/16 07:30 10/30/16 07:30 10/30/16 07:30 Intake and Output: 10/30/16 10/30/16 06:59 18:59 Intake Total 590 Output Total 650 Balance -60 - Medications Medications: Current Medications Amlodipine Besylate (Norvasc) 5 mg PO DAILY [facility] Last Admin: 10/30/16 09:35 Dose: 5 mg Diphenhydramine HCl (Benadryl) 25 mg PO Q6 PRN PRN Reason: Itching / Pruritus Last Admin: 10/30/16 11:41 Dose: 25 mg Heparin Sodium (Porcine) (Heparin) 5,000 units SC Q12 [facility] Last Admin: 10/30/16 09:36 Dose: Not Given Piperacillin Sod/Tazobactam Sod (Zosyn 3.375 Gm Iv Premix) 3.375 gm in 50 mls @ 100 mls/hr IVPB Q8H [facility] Last Admin: 10/30/16 09:35 Dose: 100 mls/hr Insulin Aspart (Novolog) 0 unit SC ACHS [facility] PRN Reason: Protocol Last Admin: 10/30/16 11:55 Dose: Not Given Insulin Glargine (Lantus) 12 unit SC HS [facility] Last Admin: 10/29/16 23:15 Dose: 12 units Morphine Sulfate (Morphine) 2 mg IVP Q6H PRN PRN Reason: Pain, moderate (4-7) Last Admin: 10/30/16 11:41 Dose: 2 mg Pneumococcal Polyvalent Vaccine (Pneumovax 23 Vaccine) 0.5 ml IM .ONCE ONE Stop: 11/01/16 10:01 Sertraline HCl (Zoloft) 50 mg PO DAILY [facility] Last Admin: 10/30/16 09:35 Dose: 50 mg - Labs Labs: 10/29/16 17:12 10/29/16 17:12 - Constitutional Appears: Well, Non-toxic, No Acute Distress - Extremities Exam Additional comments: Vasc: DP/PT non palp, Temp gradient wnl, Cap fill time diminished Derm: Porter grade 2 present on the plantar aspect of the patients left foot, does not prob to bone, soft tissue felt, no undermining, (+) odor, no drainage, no purulence, no erythema, mild non pitting edema noted, superficial lesion noted on lateral aspect of the left leg, does not probe deep, mixed fibro- granular base Neuro: Grossly diminished Ortho: Previous amputation. - Neurological Exam Neurological Exam: Alert, Awake, Oriented x3 - Psychiatric Exam Psychiatric exam: Normal Affect, Normal Mood Assessment and Plan - Assessment and Plan (Free Text) Assessment: 36 y/o female seen in the ED for left foot / leg ulceration secondary to diabetes Plan: patient evaluated and chart reviewed discussed in detail with attending Dr. Coy labs and vitals reviewed; WBC 10.8 (10/29/16), afebrile applied xeroform DSD to left leg wound cx taken- prelim gram negative rachell Rx dakins solution f/u blood cx x rays show soft tissue swelling, no evidence of acute OM cont. IV abx as per ID will continue to follow while patient remains in house
--- NOTE | 2016-10-30 12:30 | CP.PCM.PN ---
Subjective - Date & Time of Evaluation Date of Evaluation: 10/30/16 Time of Evaluation: 12:26 - Subjective Subjective: CONDITION SAME . LT FOOT INFECTION PRESENT AFEBRILE. LT FEMORAL DVT.. BUN/CREARININE ELEVATED. START COUMADIN PO. PT REFUSES IV MEDS. Objective - Vital Signs/Intake and Output Vital Signs (last 24 hours): Temp Pulse Resp BP Pulse Ox 98 F 100 H 20 137/84 99 10/30/16 07:30 10/30/16 07:30 10/30/16 07:30 10/30/16 07:30 10/30/16 07:30 Intake and Output: 10/30/16 10/30/16 06:59 18:59 Intake Total 590 Output Total 650 Balance -60 - Medications Medications: Current Medications Amlodipine Besylate (Norvasc) 5 mg PO DAILY [facility] Last Admin: 10/30/16 09:35 Dose: 5 mg Diphenhydramine HCl (Benadryl) 25 mg PO Q6 PRN PRN Reason: Itching / Pruritus Last Admin: 10/30/16 11:41 Dose: 25 mg Heparin Sodium (Porcine) (Heparin) 5,000 units SC Q12 [facility] Last Admin: 10/30/16 09:36 Dose: Not Given Piperacillin Sod/Tazobactam Sod (Zosyn 3.375 Gm Iv Premix) 3.375 gm in 50 mls @ 100 mls/hr IVPB Q8H [facility] Last Admin: 10/30/16 09:35 Dose: 100 mls/hr Insulin Aspart (Novolog) 0 unit SC ACHS [facility] PRN Reason: Protocol Last Admin: 10/30/16 11:55 Dose: Not Given Insulin Glargine (Lantus) 12 unit SC HS [facility] Last Admin: 10/29/16 23:15 Dose: 12 units Morphine Sulfate (Morphine) 2 mg IVP Q6H PRN PRN Reason: Pain, moderate (4-7) Last Admin: 10/30/16 11:41 Dose: 2 mg Pneumococcal Polyvalent Vaccine (Pneumovax 23 Vaccine) 0.5 ml IM .ONCE ONE Stop: 11/01/16 10:01 Sertraline HCl (Zoloft) 50 mg PO DAILY [facility] Last Admin: 10/30/16 09:35 Dose: 50 mg Sodium Hypochlorite (Dakins Solution 0.25%) 0 ml TOP DAILY [facility] - Labs Labs: 10/29/16 17:12 10/29/16 17:12 - Constitutional Appears: No Acute Distress, Chronically Ill - Eye Exam Eye Exam: Normal appearance, PERRL - ENT Exam ENT Exam: Mucous Membranes Moist - Respiratory Exam Respiratory Exam: Clear to Ausculation Bilateral, NORMAL BREATHING PATTERN - Cardiovascular Exam Cardiovascular Exam: REGULAR RHYTHM, +S1, +S2 - GI/Abdominal Exam GI & Abdominal Exam: Soft, Normal Bowel Sounds - Extremities Exam Additional comments: LT LOWER EXT SWELLING PRESENT. CELLULITIS AND ULCER. - Neurological Exam Neurological Exam: Alert, Awake, CN II-XII Intact, Normal Gait, Oriented x3 Assessment and Plan - Assessment and Plan (Free Text) Assessment: LT FOOT ULCER. DIABETIC ULCER. CRF. Plan: FOR IV ANTIBIOTIC AND PODIETRY F/U. COUMADIN PO.
[2016-10-30 13:52] LABS: INR 1.1; PROTHROMBIN TIME 12.4 SECONDS (9.7-12.2)
--- NOTE | 2016-10-30 14:45 | CP.PCM.CON ---
History of Present Illness - History of Present Illness History of Present Illness: 36 y/o transgender female with pmhx of Depression, Diabetes, Deep Vein Thrombosis, HIV, HTN, Peripheral Edema, Chronic Pain, seen at bedside in the ED for left foot/leg diabetic ulcerations. Patient is well known to Dr. Coy and has been admitted for the same condition many times in the past. Patient reports fever chills x 3 days and noticed pain in her foot. She states that she has not been able to keep her food down and therefore has not been taking any of her insulin. Patient denies any trauma to her feet. She denies any other pedal complaints at this time. PMH: CKD- STAGE UNKNOWN BY PATIENT HIV DM TYPE 2 MORBID OBESITY HTN PVD WITH CHRONIC LEFT FOOT ULCER DEPRESSION DVT left le in remote past PSH: LEFT TOE #1 AMPUTATION IVC FILTER Review of Systems - Constitutional Constitutional: As Per HPI, Weakness - EENT Eyes: Blurred Vision, Change in Vision Ears: absent: As Per HPI, Decreased Hearing, Ear Discharge, Ear Pain, Tinnitus, Abnormal Hearing, Disequilibrium, Dizziness, Other Nose/Mouth/Throat: absent: As Per HPI, Epistaxis, Nasal Congestion, Nasal Discharge, Nasal Obstruction, Nasal Trauma, Nose Pain, Post Nasal Drip, Sinus Pain, Sinus Pressure, Bleeding Gums, Change in Voice, Dental Pain, Dry Mouth, Dysphagia, Halitosis, Hoarsness, Lip Swelling, Mouth Lesions, Mouth Pain, Odynophagia, Sore Throat, Throat Swelling, Tongue Swelling, Facial Pain, Neck Pain, Neck Mass, Other - Cardiovascular Cardiovascular: Pedal Edema - Respiratory Respiratory: absent: As Per HPI, Cough, Dyspnea, Hemoptysis, Dyspnea on Exertion , Wheezing, Snoring, Stridor, Pain on Inspiration, Chest Congestion, Excessive Mucous Production, Change in Mucous Color, Pain with Coughing, Other - Gastrointestinal Gastrointestinal: absent: As Per HPI, Abdominal Pain, Belching, Bloating, Change in Bowel Habits, Change in Stool Character, Coffee Ground Emesis, Constipation, Cramping, Diarrhea, Dyspepsia, Dysphagia, Early Satiety, Excessive Flatus, Fecal Incontinence, Heartburn, Hematemesis, Hematochezia, Loose Stools, Melena, Nausea, Odynophagia, Temesmus, Vomiting, Other - Genitourinary Genitourinary: Urinary Frequency - Musculoskeletal Musculoskeletal: Muscle Weakness, Radiating Pain into Limb, Stiffness - Integumentary Integumentary: As Per HPI - Neurological Neurological: absent: As Per HPI, Abnormal Gait, Abnormal Hearing, Abnormal Movements, Abnormal Speech, Behavioral Changes, Burning Sensations, Confusion, Convulsions, Disequilibrium, Dizziness, Numbness, Focal Weakness, Frequent Falls , Headaches, Lack of Coordination, Loss of Vision, Memory Loss, Paresthesias, Radicular Pain, Restless Legs, Sensory Deficit, Syncope, Tingling, Tremor, Vertigo, Weakness, Other Visual Disturbances, Other - Psychiatric Psychiatric: Depression Past Patient History - Infectious Disease Hx of Infectious Diseases: None - Past Medical History & Family History Past Medical History?: Yes Past Family History: Reviewed and not pertinent - Past Social History Smoking Status: Current Some Days Smoker Chewing Tobacco Use: No Cigar Use: No Alcohol: Occasional Drugs: Cannabis Home Situation {Lives}: Alone - CARDIAC Hx Hypertension: Yes Hx Peripheral Edema: Yes - PULMONARY Hx Respiratory Disorders: No - NEUROLOGICAL Hx Neurological Disorder: No - HEENT Hx HEENT Problems: No - RENAL Hx Chronic Kidney Disease: Yes - ENDOCRINE/METABOLIC Hx Diabetes Mellitus Type 2: Yes - HEMATOLOGICAL/ONCOLOGICAL Hx Human Immunodeficiency Virus (HIV): Yes - INTEGUMENTARY Hx Dermatological Problems: Yes Other/Comment: ULCER BOTTOM LEFT FOOT LEFT FOOT SUTURE LINES TOES - MUSCULOSKELETAL/RHEUMATOLOGICAL Hx Musculoskeletal Disorders: Yes Hx Falls: No Hx Osteomyelitis: Yes (LEFT FOOT, receiving daily infusion) - GASTROINTESTINAL Hx Gastrointestinal Disorders: No - GENITOURINARY/GYNECOLOGICAL Hx Genitourinary Disorders: No - PSYCHIATRIC Hx Depression: Yes Hx Substance Use: No - SURGICAL HISTORY Hx Amputation: Yes (Left great toe) - ANESTHESIA Hx Anesthesia: Yes Hx Anesthesia Reactions: No (unknown) Hx Malignant Hyperthermia: No Meds Allergies/Adverse Reactions: Allergies Allergy/AdvReac Type Severity Reaction Status Date / Time acetaminophen [From Tylenol] Allergy RASH Verified 10/29/16 14:43 aspirin Allergy RASH Verified 10/29/16 14:43 ketorolac tromethamine Allergy RASH Verified 10/29/16 14:43 [From Toradol] meperidine HCl [From Demerol] Allergy RASH Verified 10/29/16 14:43 oxycodone HCl [From Percocet] Allergy RASH Verified 10/29/16 14:43 peas Allergy ANAPHYLAXIS Verified 10/29/16 14:43 propoxyphene napsylate Allergy RASH Verified 10/29/16 14:43 [From Kianna] - Medications Medications: Current Medications Amlodipine Besylate (Norvasc) 5 mg PO DAILY [facility] Last Admin: 10/30/16 09:35 Dose: 5 mg Diphenhydramine HCl (Benadryl) 25 mg PO Q6 PRN PRN Reason: Itching / Pruritus Last Admin: 10/30/16 11:41 Dose: 25 mg Heparin Sodium (Porcine) (Heparin) 5,000 units SC Q12 [facility] Last Admin: 10/30/16 09:36 Dose: Not Given Piperacillin Sod/Tazobactam Sod (Zosyn 3.375 Gm Iv Premix) 3.375 gm in 50 mls @ 100 mls/hr IVPB Q8H [facility] Last Admin: 10/30/16 09:35 Dose: 100 mls/hr Insulin Aspart (Novolog) 0 unit SC ACHS [facility] PRN Reason: Protocol Last Admin: 10/30/16 11:55 Dose: Not Given Insulin Glargine (Lantus) 12 unit SC HS [facility] Last Admin: 10/29/16 23:15 Dose: 12 units Morphine Sulfate (Morphine) 2 mg IVP Q6H PRN PRN Reason: Pain, moderate (4-7) Last Admin: 10/30/16 11:41 Dose: 2 mg Pneumococcal Polyvalent Vaccine (Pneumovax 23 Vaccine) 0.5 ml IM .ONCE ONE Stop: 11/01/16 10:01 Sertraline HCl (Zoloft) 50 mg PO DAILY [facility] Last Admin: 10/30/16 09:35 Dose: 50 mg Sodium Hypochlorite (Dakins Solution 0.25%) 0 ml TOP DAILY [facility] Warfarin Sodium (Coumadin) 10 mg PO 1800 [facility] Stop: 10/30/16 18:01 Physical Exam - Constitutional Appears: No Acute Distress, Chronically Ill - Head Exam Head Exam: ATRAUMATIC, NORMAL INSPECTION - Eye Exam Eye Exam: EOMI, Normal appearance - Neck Exam Neck exam: Positive for: Normal Inspection. Negative for: Tenderness - Respiratory Exam Respiratory Exam: Clear to Auscultation Bilateral, NORMAL BREATHING PATTERN - Cardiovascular Exam Cardiovascular Exam: REGULAR RHYTHM, +S1 - GI/Abdominal Exam GI & Abdominal Exam: Soft. absent: Tenderness - Extremities Exam Extremities exam: Positive for: pedal edema. Negative for: tenderness - Neurological Exam Neurological exam: CN II-XII Intact, Oriented x3 - Skin Skin Exam: Dry, Warm Results - Vital Signs Recent Vital Signs: Last Vital Signs Temp 98.6 F 10/30/16 08:00 Pulse 100 H 10/30/16 08:00 Resp 20 10/30/16 08:00 BP 137/84 10/30/16 08:00 Pulse Ox 99 10/30/16 08:00 - Labs Result Diagrams: 10/29/16 17:12 10/29/16 17:12 Labs: Laboratory Results - last 24 hr 10/29/16 10/29/16 10/29/16 17:12 17:12 22:49 WBC 10.8 RBC 3.92 Hgb 10.8 L Hct 32.7 L MCV 83.5 D MCH 27.6 MCHC 33.0 RDW 15.2 H Plt Count 258 MPV 7.3 Neut % (Auto) 72.8 Lymph % (Auto) 15.2 L Greene % (Auto) 11.0 H Eos % (Auto) 0.8 Baso % (Auto) 0.2 Neut # 7.9 H Lymph # 1.6 Greene # 1.2 H Eos # 0.1 Baso # 0.0 PT INR Sodium 134 Potassium 4.6 Chloride 103 Carbon Dioxide 17 L Anion Gap 19 BUN 27 H Creatinine 2.6 H Est GFR ( Amer) 25 Est GFR (Non-Af Amer) 21 POC Glucose (mg/dL) 302 H Random Glucose 170 H Calcium 8.3 L Total Bilirubin 0.8 AST 31 ALT 27 Alkaline Phosphatase 111 Total Protein 8.6 H Albumin 3.1 L Globulin 5.5 H Albumin/Globulin Ratio 0.6 L 10/30/16 10/30/16 10/30/16 07:16 11:33 13:38 WBC RBC Hgb Hct MCV MCH MCHC RDW Plt Count MPV Neut % (Auto) Lymph % (Auto) Greene % (Auto) Eos % (Auto) Baso % (Auto) Neut # Lymph # Greene # Eos # Baso # PT 12.4 H INR 1.1 Sodium Potassium Chloride Carbon Dioxide Anion Gap BUN Creatinine Est GFR ( Amer) Est GFR (Non-Af Amer) POC Glucose (mg/dL) 148 H 150 H Random Glucose Calcium Total Bilirubin AST ALT Alkaline Phosphatase Total Protein Albumin Globulin Albumin/Globulin Ratio Assessment & Plan (1) Diabetic foot infection Status: Acute (2) GAEL (acute kidney injury) Status: Acute Priority: Medium (3) HIV (human immunodeficiency virus infection) Status: Chronic - Assessment and Plan (Free Text) Plan: RECENT RENAL US- NORMAL CHECK FOR PROTEINURIA Serial chemistries Oral fluid hydration encouraged Wound care IV ABs as per ID
--- NOTE | 2016-10-30 15:22 | VASCLAB ---
PROCEDURE: Left Lower Extremity Venous Duplex Exam. HISTORY: calf pain PRIORS: None. TECHNIQUE: Left common femoral, femoral, popliteal and posterior tibial, peroneal and great saphenous veins were evaluated. Flow was assessed with color Doppler, compressibility, assessment of phasic flow and augmentation response. Report prepared by ALEX Chery, RVT FINDINGS: LEFT: 1. Common Femoral Vein: 1.1. Compressibility - Fully compressible: Thrombus - None : Flow - Phasic: Augmentation -Normal: Reflux - None. 2. Femoral Vein: 2.1. Compressibility - Partial: Thrombus - Chronic: Flow - Reduced : Augmentation -Reduced: Reflux - None. 3. Popliteal Vein: 3.1. Compressibility - Partial: Thrombus - Reduced : Flow - Reduced : Augmentation -Reduced: Reflux - None. 4. Posterior Tibial Vein: 4.1. Compressibility - Fully compressible: Thrombus - None: Flow - Phasic: Augmentation -Normal: Reflux - None. 5. Peroneal Vein: 5.1. Compressibility - Fully compressible: Thrombus - None: Flow - Phasic: Augmentation -Normal: Reflux - None. 6. Great Saphenous Vein: 6.1. Compressibility - Fully compressible: Thrombus - None: Flow - Phasic: Augmentation - Normal: Reflux - None. OTHER FINDINGS: Multiple vascular masses noted in the left groin. 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 Normal venous flow noted in the right common femoral vein.
--- NOTE | 2016-10-30 17:17 | CP.PCM.PN ---
Subjective - Date & Time of Evaluation Date of Evaluation: 10/30/16 Time of Evaluation: 07:00 - Subjective Subjective: 36 y/o transgender female with pmhx of Depression, Diabetes, Deep Vein Thrombosis, HIV, HTN, Peripheral Edema, Chronic Pain, seen at bedside in the ED for left foot/leg diabetic ulcerations. Patient is well known to Dr. Coy and has been admitted for the same condition many times in the past. ON MULTIPLE OCCASIONS HAS BEEN TREATED WITH IV ANTIBIOTICS OUT PT BUT WOULD FREQUENTLY MISS APPOINTMENTS AND NOT FOLLOW RECOMMENDATIONS Patient reports fever chills x 3 days and noticed pain in her foot. She states that she has not been able to keep her food down and therefore has not been taking any of her insulin. PMH: CKD HIV DM TYPE 2 MORBID OBESITY HTN PVD WITH CHRONIC LEFT FOOT ULCER DEPRESSION DVT left le in remote past PSH: LEFT TOE #1 AMPUTATION IVC FILTER Objective - Vital Signs/Intake and Output Vital Signs (last 24 hours): Temp Pulse Resp BP Pulse Ox 100.9 F H 119 H 20 172/101 H 99 10/30/16 17:03 10/30/16 17:03 10/30/16 17:03 10/30/16 17:03 10/30/16 17:03 Intake and Output: 10/30/16 10/30/16 06:59 18:59 Intake Total 590 530 Output Total 650 350 Balance -60 180 - Medications Medications: Current Medications Amlodipine Besylate (Norvasc) 5 mg PO DAILY [facility] Last Admin: 10/30/16 09:35 Dose: 5 mg Diphenhydramine HCl (Benadryl) 25 mg PO Q6 PRN PRN Reason: Itching / Pruritus Last Admin: 10/30/16 11:41 Dose: 25 mg Heparin Sodium (Porcine) (Heparin) 5,000 units SC Q12 [facility] Last Admin: 10/30/16 09:36 Dose: Not Given Piperacillin Sod/Tazobactam Sod (Zosyn 3.375 Gm Iv Premix) 3.375 gm in 50 mls @ 100 mls/hr IVPB Q8H [facility] Last Admin: 10/30/16 09:35 Dose: 100 mls/hr Insulin Aspart (Novolog) 0 unit SC ACHS [facility] PRN Reason: Protocol Last Admin: 10/30/16 11:55 Dose: Not Given Insulin Glargine (Lantus) 12 unit SC HS [facility] Last Admin: 10/29/16 23:15 Dose: 12 units Morphine Sulfate (Morphine) 2 mg IVP Q6H PRN PRN Reason: Pain, moderate (4-7) Last Admin: 10/30/16 11:41 Dose: 2 mg Pneumococcal Polyvalent Vaccine (Pneumovax 23 Vaccine) 0.5 ml IM .ONCE ONE Stop: 11/01/16 10:01 Sertraline HCl (Zoloft) 50 mg PO DAILY [facility] Last Admin: 10/30/16 09:35 Dose: 50 mg Sodium Hypochlorite (Dakins Solution 0.25%) 0 ml TOP DAILY [facility] Warfarin Sodium (Coumadin) 10 mg PO 1800 [facility] Stop: 10/30/16 18:01 - Labs Labs: 10/29/16 17:12 10/29/16 17:12 PT 12.4 SECONDS (9.7-12.2) H 10/30/16 13:38 INR 1.1 10/30/16 13:38 - Constitutional Appears: Non-toxic, Chronically Ill - Head Exam Head Exam: NORMOCEPHALIC - Eye Exam Eye Exam: PERRL. absent: Scleral icterus - ENT Exam ENT Exam: Mucous Membranes Dry - Neck Exam Neck Exam: absent: Lymphadenopathy - Respiratory Exam Respiratory Exam: Decreased Breath Sounds - Cardiovascular Exam Cardiovascular Exam: REGULAR RHYTHM - GI/Abdominal Exam GI & Abdominal Exam: Distended, Soft - Rectal Exam Rectal Exam: Deferred - Exam Exam: NORMAL INSPECTION - Extremities Exam Extremities Exam: Calf Tenderness, Pedal Edema, Tenderness Additional comments: Vasc: DP/PT non palp, Temp gradient wnl, Cap fill time diminished Derm: Porter grade 2 present on the plantar aspect of the patients left foot, does not prob to bone, soft tissue felt, no undermining, (+) odor, no drainage, no purulence, no erythema, mild non pitting edema noted, superficial lesion noted on lateral aspect of the left leg, does not probe deep, mixed fibro- granular base Neuro: Grossly diminished Ortho: Previous amputation. - Back Exam Back Exam: absent: CVA tenderness (L), CVA tenderness (R) Assessment and Plan (1) Diabetic foot infection Status: Acute (2) Ulcer of foot Status: Acute (3) GAEL (acute kidney injury) Status: Acute (4) Abscess and cellulitis Status: Acute (5) Dehydration Status: Acute (6) Morbid obesity with BMI of 40.0-44.9, adult Status: Acute (7) Depression Status: Chronic (8) HIV (human immunodeficiency virus infection) Status: Chronic - Assessment and Plan (Free Text) Assessment: CONSIDER MRI LEFT FOOT WILL NEED OR DEBRIDEMENT MAY NEED MARKETER ANTIBIOTICS HIV RX ON HOLD- PHARMACY DOESNT STOCK NON NEPHROTOXIC TAF
[2016-10-30 18:54] LABS: SQUAMOUS EPITHIAL < 1 /hpf (0-5); URINE BACTERIA RARE (<OCC); URINE BILIRUBIN NEGATIVE (NEGATIVE); URINE BLOOD 1+ (NEGATIVE); URINE CLARITY Clear (Clear); URINE COLOR Yellow (YELLOW); URINE GLUCOSE (UA) 1+ mg/dL (Normal); URINE LEUKOCYTE ESTERASE NEG Leu/uL (Negative); URINE NITRATE NEGATIVE (NEGATIVE); URINE PROTEIN 3+ mg/dL (NEGATIVE); URINE UROBILINOGEN NORMAL mg/dL (0.2-1.0)
--- NOTE | 2016-10-30 21:16 | HP ---
HISTORY OF PRESENT ILLNESS: This is a 36-year-old transgender female came to the emergency room with history of left leg swelling and severe pain. The patient also claims she has infection their. The patient was given Augmentin and it is not helping, so she came to the emergency room. The patient also complain of fever. No history of chest pain. No shortness of breath. REVIEW OF SYSTEMS: CARDIOVASCULAR: Negative for chest pain. RESPIRATORY: Negative for shortness of breath. GASTROINTESTINAL: Negative for nausea, vomiting or abdominal pain. CENTRAL NERVOUS SYSTEM: Negative for focal neurological complaints. EXTREMITIES: The patient has left foot infection and cellulitis. . PSYCHIATRIC: The patient is anxious. GENITOURINARY: No urinary complaints. All other systems negative. PAST MEDICAL HISTORY: History of depression, diabetes, deep vein thrombosis, HIV, hypertension, peripheral edema and chronic pain. ALLERGIES: THE PATIENT IS ALLERGIC TO ACETAMINOPHEN, ASPIRIN, KETOROLAC. FAMILY HISTORY: No known family history. SOCIAL HISTORY: No tobacco use. The patient uses alcohol. No substance abuse. MEDICATIONS: Diphenhydramine, morphine, ibuprofen, insulin, vancomycin, Zoloft and piperacillin. PHYSICAL EXAMINATION GENERAL: This is a 36-year-old transgender female, alert and oriented. VITAL SIGNS: Temperature 98.4, pulse 106, respirations 20, blood pressure 106/72 mmHg and pulse ox is 97% at room air. HEENT: Normal. NECK: JVP is flat. Carotids, no bruits. LUNGS: No rales. No wheezing. HEART: S1 and S2 normal. No gallop. No murmur. ABDOMEN: Soft and nontender. No organomegaly. CENTRAL NERVOUS SYSTEM: No focal neurological deficits. EXTREMITIES: Left lower extremity is markedly enlarged compare to the right. There is a healing large venostasis ulcer to left lateral leg. Left foot __DIABETIC___ ulcer with foul-smelling discharge and swelling. Peripheral pulses are normal. LABORATORY DATA: On admission, white cell count is normal and hemoglobin is 10.8. BUN 27 and creatinine is 2.6. Blood sugar 170. IMPRESSION: Left foot ulcer. Diabetic foot ulcer. Rule out osteomyelitis. PLAN: The patient will be admitted to the floor. We will get consult with Dr. Coy and Dr. Del Valle. We will give IV antibiotics. Other workup as advised by Dr. Del Valle and Dr. Coy. Art Nathan MD [facility] # [id number] [facility]
[2016-10-30] MEDS: (Lantus) Insulin Glargine, Recombinant SC SCH (21:40)
[2016-10-30 22:06] LABS: HEPATITIS B SURFACE AG NEGATIVE (NEGATIVE)
[2016-10-30 22:12] LABS: HEPATITIS A IGM NEGATIVE (NEGATIVE); HEPATITIS B CORE AB NEGATIVE (NEGATIVE)
[2016-10-30 22:24] LABS: HEPATITIS C ANTIBODY NEGATIVE (NEGATIVE)
[2016-10-31] MEDS: Piperacill/Tazo 3.375gm in Dex 3.375 GM/50 ML BAG IVPB SCH ×3 (01:39→17:57)
[2016-10-31] MEDS: Morphine 4 MG/ML VIAL IVP PRN ×3 (05:41→17:54)
[2016-10-31 07:13] LABS: INR 1.2; PROTHROMBIN TIME 13.3 SECONDS (9.7-12.2)
[2016-10-31 08:00] LABS: ALB/GLOB RATIO 0.6 (1.0-2.1); ALBUMIN 2.7 g/dL (3.5-5.0); ALT/SGPT 21 U/L (9-52); AST/SGOT 25 U/L (14-36); BLOOD UREA NITROGEN 30 mg/dL (7-17); CALCIUM 8.4 mg/dl (8.6-10.4); GFR AFRICAN-AMERICAN 22; GFR NON-AFRICAN AMERICAN 18; MAGNESIUM 1.7 mg/dL (1.6-2.3)
[2016-10-31] MEDS: (Novolog) Insulin Aspart, Recombinant 100 u/ml 10 ml vial SC SCH ×4 (08:12→21:54)
[2016-10-31 08:31] LABS: HEPATITIS B SURFACE AG NEGATIVE (NEGATIVE)
[2016-10-31 08:48] LABS: HEPATITIS C ANTIBODY NEGATIVE (NEGATIVE)
[2016-10-31] MEDS: Dakin's Topical 0.25%-Half Strength (480 ml) TOP SCH (10:12)
--- NOTE | 2016-10-31 10:52 | CP.PCM.PN ---
Subjective - Date & Time of Evaluation Date of Evaluation: 10/31/16 Time of Evaluation: 10:49 - Subjective Subjective: FEBRILE. LT FOOT SWOLLEN AND PAINFUL. ID, PODIETRY AND RENAL EVAL NOTED. Objective - Vital Signs/Intake and Output Vital Signs (last 24 hours): Temp Pulse Resp BP Pulse Ox 98.5 F 85 20 115/70 96 10/31/16 08:00 10/31/16 08:00 10/31/16 08:00 10/31/16 08:00 10/31/16 08:00 Intake and Output: 10/31/16 10/31/16 06:59 18:59 Intake Total 840 Output Total 1100 Balance -260 - Medications Medications: Current Medications Amlodipine Besylate (Norvasc) 5 mg PO DAILY [facility] Last Admin: 10/31/16 10:09 Dose: 5 mg Diphenhydramine HCl (Benadryl) 25 mg PO Q6 PRN PRN Reason: Itching / Pruritus Last Admin: 10/31/16 05:41 Dose: 25 mg Heparin Sodium (Porcine) (Heparin) 5,000 units SC Q12 [facility] Last Admin: 10/31/16 10:06 Dose: Not Given Piperacillin Sod/Tazobactam Sod (Zosyn 3.375 Gm Iv Premix) 3.375 gm in 50 mls @ 100 mls/hr IVPB Q8H [facility] Last Admin: 10/31/16 10:09 Dose: 100 mls/hr Daptomycin 860 mg/ Sodium (Chloride) 100 mls @ 100 mls/hr IV Q24H [facility] Stop: 11/04/16 21:01 Last Admin: 10/30/16 20:29 Dose: 100 mls/hr Ibuprofen (Motrin Tab) 400 mg PO Q8H PRN PRN Reason: Fever >100.4 F Last Admin: 10/30/16 20:15 Dose: 400 mg Insulin Aspart (Novolog) 0 unit SC ACHS [facility] PRN Reason: Protocol Last Admin: 10/31/16 08:12 Dose: Not Given Insulin Glargine (Lantus) 12 unit SC HS [facility] Last Admin: 10/30/16 21:40 Dose: Not Given Morphine Sulfate (Morphine) 2 mg IVP Q6H PRN PRN Reason: Pain, moderate (4-7) Last Admin: 10/31/16 05:41 Dose: 2 mg Ondansetron HCl (Zofran Inj) 4 mg IVP Q6H PRN PRN Reason: nausea and vomiting Pneumococcal Polyvalent Vaccine (Pneumovax 23 Vaccine) 0.5 ml IM .ONCE ONE Stop: 11/01/16 10:01 Sertraline HCl (Zoloft) 50 mg PO DAILY [facility] Last Admin: 10/31/16 10:09 Dose: 50 mg Sodium Hypochlorite (Dakins Solution 0.25%) 0 ml TOP DAILY [facility] Last Admin: 10/31/16 10:12 Dose: 1 applic - Labs Labs: 10/29/16 17:12 10/31/16 06:56 PT 13.3 SECONDS (9.7-12.2) H 10/31/16 06:56 INR 1.2 10/31/16 06:56 - Constitutional Appears: In Acute Distress, Chronically Ill - Eye Exam Eye Exam: Normal appearance, PERRL - ENT Exam ENT Exam: Mucous Membranes Moist - Respiratory Exam Respiratory Exam: Clear to Ausculation Bilateral, NORMAL BREATHING PATTERN - Cardiovascular Exam Cardiovascular Exam: REGULAR RHYTHM, +S1, +S2 - GI/Abdominal Exam GI & Abdominal Exam: Soft, Normal Bowel Sounds - Extremities Exam Extremities Exam: Pedal Edema - Back Exam Back Exam: NORMAL INSPECTION - Neurological Exam Neurological Exam: Alert, Awake, CN II-XII Intact, Normal Gait, Oriented x3 Assessment and Plan - Assessment and Plan (Free Text) Assessment: CELLULITIS LT FOOT , DIABETIC ULCER. Plan: FOR OR TOMORROW. I AND D. CT IV ANTIBIOTICS. HOLD COUMADIN TODAY.
--- NOTE | 2016-10-31 11:04 | CP.PCM.PN ---
<Claudia Guallpa - Last Filed: 10/31/16 14:32> Subjective - Date & Time of Evaluation Date of Evaluation: 10/31/16 Time of Evaluation: 11:03 - Subjective Subjective: 36 y/o female seen at bedside with Dr. Coy for left foot and posterior leg ulcerations. Patient denies any acute events overnight. Patient denies any trauma to her feet but states that she has been noticing the fluid blister on her left foot getting bigger. Patient notes that she has had decreased appetite over the last 24 hours. Patient admits to spiking a fever last night that has since gone down, and also admits to experiencing chills. Patient denies N/V/ SOB. She denies any other pedal complaints at this time. Objective - Vital Signs/Intake and Output Vital Signs (last 24 hours): Temp Pulse Resp BP Pulse Ox 98.5 F 85 20 115/70 96 10/31/16 08:00 10/31/16 08:00 10/31/16 08:00 10/31/16 08:00 10/31/16 08:00 Intake and Output: 10/31/16 10/31/16 06:59 18:59 Intake Total 840 Output Total 1100 Balance -260 - Medications Medications: Current Medications Amlodipine Besylate (Norvasc) 5 mg PO DAILY [facility] Last Admin: 10/31/16 10:09 Dose: 5 mg Diphenhydramine HCl (Benadryl) 25 mg PO Q6 PRN PRN Reason: Itching / Pruritus Last Admin: 10/31/16 05:41 Dose: 25 mg Heparin Sodium (Porcine) (Heparin) 5,000 units SC Q12 [facility] Last Admin: 10/31/16 10:06 Dose: Not Given Piperacillin Sod/Tazobactam Sod (Zosyn 3.375 Gm Iv Premix) 3.375 gm in 50 mls @ 100 mls/hr IVPB Q8H [facility] Last Admin: 10/31/16 10:09 Dose: 100 mls/hr Daptomycin 860 mg/ Sodium (Chloride) 100 mls @ 100 mls/hr IV Q24H [facility] Stop: 11/04/16 21:01 Last Admin: 10/30/16 20:29 Dose: 100 mls/hr Ibuprofen (Motrin Tab) 400 mg PO Q8H PRN PRN Reason: Fever >100.4 F Last Admin: 10/30/16 20:15 Dose: 400 mg Insulin Aspart (Novolog) 0 unit SC ACHS [facility] PRN Reason: Protocol Last Admin: 10/31/16 08:12 Dose: Not Given Insulin Glargine (Lantus) 12 unit SC HS [facility] Last Admin: 10/30/16 21:40 Dose: Not Given Morphine Sulfate (Morphine) 2 mg IVP Q6H PRN PRN Reason: Pain, moderate (4-7) Last Admin: 10/31/16 05:41 Dose: 2 mg Ondansetron HCl (Zofran Inj) 4 mg IVP Q6H PRN PRN Reason: nausea and vomiting Pneumococcal Polyvalent Vaccine (Pneumovax 23 Vaccine) 0.5 ml IM .ONCE ONE Stop: 11/01/16 10:01 Sertraline HCl (Zoloft) 50 mg PO DAILY [facility] Last Admin: 10/31/16 10:09 Dose: 50 mg Sodium Hypochlorite (Dakins Solution 0.25%) 0 ml TOP DAILY [facility] Last Admin: 10/31/16 10:12 Dose: 1 applic - Labs Labs: 10/29/16 17:12 10/31/16 06:56 PT 13.3 SECONDS (9.7-12.2) H 10/31/16 06:56 INR 1.2 10/31/16 06:56 - Constitutional Appears: Well, Non-toxic, No Acute Distress - Extremities Exam Additional comments: Left lower extremity focused examination: Vasc: DP/PT pulses non palpable, Temp gradient warm to cool from proximal to distal. Capillary fill time is diminished. Mild to moderate non-pitting edema noted to L foot Derm: Porter grade 2 ulceration present at plantar lateral midfoot. Adjacent soft tissue at plantar lateral midfoot exhibits bogginess and fluctuance with fluid-filled soft tissue pocket noted. Positive malodor. No active drainage, no purulence, no erythema, no undermining. Superficial ulceration noted on lateral aspect of the left leg, does not probe deep, mixed fibro-granular base Neuro: Protective sensation grossly diminished Ortho: Hx of hallux amputation - Neurological Exam Neurological Exam: Alert, Awake, Oriented x3 - Psychiatric Exam Psychiatric exam: Normal Affect, Normal Mood Assessment and Plan - Assessment and Plan (Free Text) Assessment: 36 y/o female seen at bedside for left foot and leg ulcerations secondary to diabetes Plan: Pt seen and evaluated at bedside with attending Dr. Coy Chart, labs and vitals reviewed- afebrile (102.5 last night, down to 98.5), WBC 10.8 Pt to go to OR tomorrow morning for I&D of L foot possible abscess at 8am Medical clearance requested- thank you Anticoagulants held at this time NPO order placed for midnight tonight CXR and EKG ordered PT eval ordered for non-WB status to L foot following surgery tomorrow Podiatry will see in AM prior to OR <Kalpesh Coy - Last Filed: 11/02/16 09:01> Subjective - Subjective Subjective: pt seen at bedside with resident . agree with finding .labs reviewed .Dr Coy Objective - Vital Signs/Intake and Output Vital Signs (last 24 hours): Temp Pulse Resp BP Pulse Ox 97.6 F 79 20 159/89 H 98 11/02/16 08:41 11/02/16 08:41 11/02/16 08:41 11/02/16 08:41 11/02/16 08:41 Intake and Output: 11/02/16 11/02/16 06:59 18:59 Intake Total 1840 Output Total 800 Balance 1040 - Medications Medications: Current Medications Amlodipine Besylate (Norvasc) 5 mg PO DAILY [facility] Last Admin: 11/01/16 09:10 Dose: Not Given Diphenhydramine HCl (Benadryl) 25 mg PO Q6 PRN PRN Reason: Itching / Pruritus Last Admin: 11/02/16 06:11 Dose: 25 mg Heparin Sodium (Porcine) (Heparin) 5,000 units SC Q12 [facility] Last Admin: 11/01/16 21:58 Dose: Not Given Piperacillin Sod/Tazobactam Sod (Zosyn 3.375 Gm Iv Premix) 3.375 gm in 50 mls @ 100 mls/hr IVPB Q8H [facility] Last Admin: 11/02/16 01:15 Dose: 100 mls/hr Daptomycin 860 mg/ Sodium (Chloride) 100 mls @ 100 mls/hr IV Q24H [facility] Stop: 11/04/16 21:01 Last Admin: 11/01/16 21:12 Dose: 100 mls/hr Lactated Ringer's (Lactated Ringer's) 1,000 mls @ 100 mls/hr IV .Q10H [facility] Last Admin: 11/01/16 18:33 Dose: 100 mls/hr Insulin Aspart (Novolog) 0 unit SC ACHS [facility] PRN Reason: Protocol Last Admin: 11/02/16 07:58 Dose: Not Given Insulin Glargine (Lantus) 12 unit SC HS [facility] Last Admin: 11/01/16 23:03 Dose: Not Given Morphine Sulfate (Morphine) 2 mg IVP Q6H PRN PRN Reason: Pain, moderate (4-7) Last Admin: 11/02/16 06:20 Dose: 2 mg Ondansetron HCl (Zofran Inj) 4 mg IVP Q6H PRN PRN Reason: nausea and vomiting Sertraline HCl (Zoloft) 50 mg PO DAILY [facility] Last Admin: 11/01/16 10:26 Dose: 50 mg Sodium Hypochlorite (Dakins Solution 0.25%) 0 ml TOP DAILY [facility] Last Admin: 11/01/16 09:08 Dose: Not Given - Labs Labs: 10/29/16 17:12 11/02/16 07:13 PT 12.9 SECONDS (9.7-12.2) H 11/01/16 14:10 INR 1.2 11/01/16 14:10
--- NOTE | 2016-10-31 11:39 | CP.PCM.PN ---
Subjective - Date & Time of Evaluation Date of Evaluation: 10/31/16 Time of Evaluation: 11:36 - Subjective Subjective: 36 y/o transgender female with pmhx of Depression, Diabetes, Deep Vein Thrombosis, HIV, HTN, Peripheral Edema, Chronic Pain, seen at bedside in the ED for left foot/leg diabetic ulcerations. Patient is well known to Dr. Coy and has been admitted for the same condition many times in the past. Patient reports fever chills x 3 days and noticed pain in her foot. She states that she has not been able to keep her food down and therefore has not been taking any of her insulin. Patient denies any trauma to her feet. She denies any other pedal complaints at this time. 10/31 Notes reviewed Comfortable in bed No overnight events No pain Tolerating diet No fever or chills reported No cp or palp, no sob or cough No n/v/d Discussed CKD with patient Ros: 12 point ros negative unless described in hpi PMH: CKD- STAGE UNKNOWN BY PATIENT HIV DM TYPE 2 MORBID OBESITY HTN PVD WITH CHRONIC LEFT FOOT ULCER DEPRESSION DVT left le in remote past PSH: LEFT TOE #1 AMPUTATION Objective - Vital Signs/Intake and Output Vital Signs (last 24 hours): Temp Pulse Resp BP Pulse Ox 98.5 F 85 20 115/70 96 10/31/16 08:00 10/31/16 08:00 10/31/16 08:00 10/31/16 08:00 10/31/16 08:00 Intake and Output: 10/31/16 10/31/16 06:59 18:59 Intake Total 840 Output Total 1100 Balance -260 - Medications Medications: Current Medications Amlodipine Besylate (Norvasc) 5 mg PO DAILY [facility] Last Admin: 10/31/16 10:09 Dose: 5 mg Diphenhydramine HCl (Benadryl) 25 mg PO Q6 PRN PRN Reason: Itching / Pruritus Last Admin: 10/31/16 05:41 Dose: 25 mg Heparin Sodium (Porcine) (Heparin) 5,000 units SC Q12 [facility] Last Admin: 10/31/16 10:06 Dose: Not Given Piperacillin Sod/Tazobactam Sod (Zosyn 3.375 Gm Iv Premix) 3.375 gm in 50 mls @ 100 mls/hr IVPB Q8H [facility] Last Admin: 10/31/16 10:09 Dose: 100 mls/hr Daptomycin 860 mg/ Sodium (Chloride) 100 mls @ 100 mls/hr IV Q24H [facility] Stop: 11/04/16 21:01 Last Admin: 10/30/16 20:29 Dose: 100 mls/hr Ibuprofen (Motrin Tab) 400 mg PO Q8H PRN PRN Reason: Fever >100.4 F Last Admin: 10/30/16 20:15 Dose: 400 mg Insulin Aspart (Novolog) 0 unit SC ACHS [facility] PRN Reason: Protocol Last Admin: 10/31/16 08:12 Dose: Not Given Insulin Glargine (Lantus) 12 unit SC HS [facility] Last Admin: 10/30/16 21:40 Dose: Not Given Morphine Sulfate (Morphine) 2 mg IVP Q6H PRN PRN Reason: Pain, moderate (4-7) Last Admin: 10/31/16 05:41 Dose: 2 mg Ondansetron HCl (Zofran Inj) 4 mg IVP Q6H PRN PRN Reason: nausea and vomiting Pneumococcal Polyvalent Vaccine (Pneumovax 23 Vaccine) 0.5 ml IM .ONCE ONE Stop: 11/01/16 10:01 Sertraline HCl (Zoloft) 50 mg PO DAILY [facility] Last Admin: 10/31/16 10:09 Dose: 50 mg Sodium Hypochlorite (Dakins Solution 0.25%) 0 ml TOP DAILY [facility] Last Admin: 10/31/16 10:12 Dose: 1 applic - Labs Labs: 10/29/16 17:12 10/31/16 06:56 PT 13.3 SECONDS (9.7-12.2) H 10/31/16 06:56 INR 1.2 10/31/16 06:56 - Constitutional Appears: Well, Non-toxic - Head Exam Head Exam: ATRAUMATIC, NORMAL INSPECTION - Eye Exam Eye Exam: EOMI, Normal appearance - ENT Exam ENT Exam: Mucous Membranes Moist, Normal Oropharynx - Neck Exam Neck Exam: absent: Lymphadenopathy, Thyromegaly - Respiratory Exam Respiratory Exam: Clear to Ausculation Bilateral. absent: Rales, Rhonchi, Wheezes - Cardiovascular Exam Cardiovascular Exam: RRR, +S1, +S2. absent: Rubs - GI/Abdominal Exam GI & Abdominal Exam: Soft, Normal Bowel Sounds - Neurological Exam Neurological Exam: Alert, Oriented x3 Assessment and Plan (1) Diabetic foot infection Status: Acute (2) GAEL (acute kidney injury) Status: Acute (3) Hypertension Status: Acute - Assessment and Plan (Free Text) Assessment: Acute on chronic kidney disease Renal function and electrolytes stable Bp controlled Stop nsaids Continue current care
--- NOTE | 2016-10-31 15:23 | RAD ---
HISTORY: medical clearance prior to sx tomorrow I D L foot COMPARISON: 02/12/2016. FINDINGS: LUNGS: The lungs are well inflated and clear. PLEURA: No significant pleural effusion identified, no pneumothorax apparent. CARDIOVASCULAR: There is borderline cardiomegaly. OSSEOUS STRUCTURES: No significant abnormalities. VISUALIZED UPPER ABDOMEN: Normal. OTHER FINDINGS: None. IMPRESSION: No active pulmonary disease.
[2016-10-31] MEDS ORDERED: Morphine 4 MG/ML VIAL IVP STA (21:41)
[2016-10-31] MEDS: (Lantus) Insulin Glargine, Recombinant SC SCH (21:55)
[2016-11-01] MEDS: Piperacill/Tazo 3.375gm in Dex 3.375 GM/50 ML BAG IVPB SCH ×3 (02:05→18:27)
[2016-11-01] MEDS: Morphine 4 MG/ML VIAL IVP PRN ×3 (03:10→18:26)
--- NOTE | 2016-11-01 07:53 | CP.PCM.PN ---
Subjective - Date & Time of Evaluation Date of Evaluation: 11/01/16 Time of Evaluation: 07:52 - Subjective Subjective: 36 y/o diabetic transgender female seen at bedside this morning prior to going to the OR for I&D of left foot infected ulceration with possible abscess. Patient confirms NPO status and has not had anything to eat or drink since last night. Objective - Vital Signs/Intake and Output Vital Signs (last 24 hours): Temp Pulse Resp BP Pulse Ox 98.6 F 88 18 113/69 100 10/31/16 23:00 10/31/16 23:00 10/31/16 23:00 10/31/16 23:00 10/31/16 23:00 Intake and Output: 11/01/16 11/01/16 06:59 18:59 Intake Total 710 Output Total 1500 Balance -790 - Medications Medications: Current Medications Amlodipine Besylate (Norvasc) 5 mg PO DAILY [facility] Last Admin: 10/31/16 10:09 Dose: 5 mg Diphenhydramine HCl (Benadryl) 25 mg PO Q6 PRN PRN Reason: Itching / Pruritus Last Admin: 11/01/16 03:10 Dose: 25 mg Heparin Sodium (Porcine) (Heparin) 5,000 units SC Q12 [facility] Last Admin: 10/31/16 21:54 Dose: Not Given Piperacillin Sod/Tazobactam Sod (Zosyn 3.375 Gm Iv Premix) 3.375 gm in 50 mls @ 100 mls/hr IVPB Q8H [facility] Last Admin: 11/01/16 02:05 Dose: 100 mls/hr Daptomycin 860 mg/ Sodium (Chloride) 100 mls @ 100 mls/hr IV Q24H [facility] Stop: 11/04/16 21:01 Last Admin: 10/31/16 21:45 Dose: 100 mls/hr Insulin Aspart (Novolog) 0 unit SC ACHS [facility] PRN Reason: Protocol Last Admin: 10/31/16 21:54 Dose: Not Given Insulin Glargine (Lantus) 12 unit SC HS [facility] Last Admin: 10/31/16 21:55 Dose: Not Given Morphine Sulfate (Morphine) 2 mg IVP Q6H PRN PRN Reason: Pain, moderate (4-7) Last Admin: 11/01/16 03:10 Dose: 2 mg Ondansetron HCl (Zofran Inj) 4 mg IVP Q6H PRN PRN Reason: nausea and vomiting Pneumococcal Polyvalent Vaccine (Pneumovax 23 Vaccine) 0.5 ml IM .ONCE ONE Stop: 11/01/16 10:01 Sertraline HCl (Zoloft) 50 mg PO DAILY [facility] Last Admin: 10/31/16 10:09 Dose: 50 mg Sodium Hypochlorite (Dakins Solution 0.25%) 0 ml TOP DAILY [facility] Last Admin: 10/31/16 10:12 Dose: 1 applic - Labs Labs: 10/29/16 17:12 10/31/16 06:56 PT 13.3 SECONDS (9.7-12.2) H 10/31/16 06:56 INR 1.2 10/31/16 06:56 - Constitutional Appears: Well, Non-toxic, No Acute Distress - Extremities Exam Additional comments: Vasc: DP/PT pulses non palpable, Temp gradient warm to cool from proximal to distal. Capillary fill time is diminished. Mild to moderate non-pitting edema noted to L foot Derm: Light brown strikethrough noted through entirety of dressing and on patient bed. Porter grade 2 ulceration present at plantar lateral midfoot. Adjacent soft tissue at plantar lateral midfoot exhibits bogginess and fluctuance with fluid-filled soft tissue pocket noted that is now open and draining light brown discharge. Lateral aspect of fluid pocket drains blood with extravasation of soft tissue through opening. Malodor noted to plantar lateral midfoot ulcerations. No purulence, no erythema, no undermining. Superficial ulceration noted on lateral aspect of the left leg, does not probe deep, mixed fibro-granular base Neuro: Protective sensation grossly diminished Ortho: Hx of hallux amputation - Neurological Exam Neurological Exam: Alert, Awake, Oriented x3 - Psychiatric Exam Psychiatric exam: Normal Affect, Normal Mood Assessment and Plan - Assessment and Plan (Free Text) Assessment: 36 y/o female seen at bedside for left foot and leg ulcerations secondary to diabetes Plan: Pt seen and evaluated at bedside prior to transport Discussed with attending Dr. Coy Dressed left foot and leg with ABD and DSD Pt to go to OR this morning for I&D of left foot ulceration with excisional debridement of non-viable soft tissue Addressed all questions and concerns of patient NPO status confirmed by patient - did not eat or drink anything since last night Pt will remain in house following procedure Podiatry will continue to follow
[2016-11-01] MEDS ORDERED: Bupivacaine HCl 0.5% PF (10 ml) Inj ONE (07:57)
[2016-11-01] MEDS ORDERED: Lidocaine 1% Inj (20ml) ONE (07:57)
[2016-11-01] MEDS: (Novolog) Insulin Aspart, Recombinant 100 u/ml 10 ml vial SC SCH ×4 (08:10→21:20)
[2016-11-01] MEDS ORDERED: Lactated Ringer's 1,000 ML IV ONE ×2 (08:10→09:08)
[2016-11-01] MEDS ORDERED: Propofol 10 mg/ml Inj (20 ML) ONE ×2 (08:15→08:32)
[2016-11-01] MEDS ORDERED: Midazolam 2 MG/2 ML VIAL ONE (08:15)
[2016-11-01] MEDS: Dakin's Topical 0.25%-Half Strength (480 ml) TOP SCH (09:08)
[2016-11-01] MEDS ORDERED: HYDROmorphone 0.5 mg/0.5 ml ISec IVP PRN (09:09)
--- NOTE | 2016-11-01 09:11 | PCM.SURG1 ---
Surgeon's Initial Post Op Note - Surgeon's Notes Surgeon: Dr. Kalpesh Coy Manager Company: Dr. Nathan PGY-1, Dr. Guallpa PGY-1 Type of Anesthesia: IV Sedation Anesthesia Administered By: Dr. Hernandez Pre-Operative Diagnosis: left foot infected diabetic ulcer with abscess Operative Findings: see operative report. I: 10 cc 1:1 mix of 1% Lidocaine plain and 0.5% Marcaine plain Post-Operative Diagnosis: left foot infected diabetic ulcer with abscess Operation Performed: incision and drainage of left foot infected diabetic ulcer with abscess Specimen/Specimens Removed: none Estimated Blood Loss: EBL {In ML}: 35 Blood Products Given: N/A Drains Used: No Drains Post-Op Condition: Good Date of Surgery/Procedure: 11/01/16 Time of Surgery/Procedure: 08:30
[2016-11-01] MEDS ORDERED: Pneumococcal 23-Valent Vaccine IM ONE (10:00)
[2016-11-01] MEDS: Lactated Ringer's 1,000 ML IV SCH ×2 (10:27→18:33)
--- NOTE | 2016-11-01 10:46 | RAD ---
PROCEDURE: Left Foot Radiographs. HISTORY: s/p left foot surgery COMPARISON: 10/29/2016. FINDINGS: BONES: There has been no significant change in the appearance of the foot with amputation of the little toe and great toe and chronic osteomyelitis in the heads of the 2nd 3rd and 4th metatarsals. JOINTS: Normal. SOFT TISSUES: There is severe soft tissue swelling in the foot with soft tissue irregularity in the forefoot. OTHER FINDINGS: None. IMPRESSION: Diffuse soft tissue swelling in the foot with soft tissue irregularity in the forefoot most compatible with cellulitis. No change in the appearance of the bones. No definite evidence of acute osteomyelitis.
[2016-11-01 14:31] LABS: ALBUMIN 2.7 g/dL (3.5-5.0)
[2016-11-01 14:32] LABS: INR 1.2; PROTHROMBIN TIME 12.9 SECONDS (9.7-12.2)
[2016-11-01 14:34] LABS: ALB/GLOB RATIO 0.5 (1.0-2.1)
[2016-11-01 14:35] LABS: CALCIUM 8.5 mg/dl (8.6-10.4)
--- NOTE | 2016-11-01 18:23 | CP.PCM.PN ---
Subjective - Date & Time of Evaluation Date of Evaluation: 11/01/16 Time of Evaluation: 07:00 - Subjective Subjective: S/P DEBRIDEMENT LEFT FOOT ABSCESS BLOOD C/S + WOUND GROWING PROTEUS IV RX IN PROGRESS ZYVOX ADDED Objective - Vital Signs/Intake and Output Vital Signs (last 24 hours): Temp Pulse Resp BP Pulse Ox 98.7 F 106 H 20 132/83 98 11/01/16 16:00 11/01/16 16:00 11/01/16 16:00 11/01/16 16:00 11/01/16 16:00 Intake and Output: 11/01/16 11/01/16 06:59 18:59 Intake Total 710 290 Output Total 1500 Balance -790 290 - Medications Medications: Current Medications Amlodipine Besylate (Norvasc) 5 mg PO DAILY [facility] Last Admin: 11/01/16 09:10 Dose: Not Given Diphenhydramine HCl (Benadryl) 25 mg PO Q6 PRN PRN Reason: Itching / Pruritus Last Admin: 11/01/16 12:15 Dose: 25 mg Heparin Sodium (Porcine) (Heparin) 5,000 units SC Q12 [facility] Last Admin: 11/01/16 09:08 Dose: Not Given Piperacillin Sod/Tazobactam Sod (Zosyn 3.375 Gm Iv Premix) 3.375 gm in 50 mls @ 100 mls/hr IVPB Q8H [facility] Last Admin: 11/01/16 10:25 Dose: 100 mls/hr Daptomycin 860 mg/ Sodium (Chloride) 100 mls @ 100 mls/hr IV Q24H [facility] Stop: 11/04/16 21:01 Last Admin: 10/31/16 21:45 Dose: 100 mls/hr Lactated Ringer's (Lactated Ringer's) 1,000 mls @ 100 mls/hr IV .Q10H [facility] Last Admin: 11/01/16 10:27 Dose: 100 mls/hr Insulin Aspart (Novolog) 0 unit SC ACHS [facility] PRN Reason: Protocol Last Admin: 11/01/16 11:44 Dose: Not Given Insulin Glargine (Lantus) 12 unit SC HS [facility] Last Admin: 10/31/16 21:55 Dose: Not Given Morphine Sulfate (Morphine) 2 mg IVP Q6H PRN PRN Reason: Pain, moderate (4-7) Last Admin: 11/01/16 12:15 Dose: 2 mg Ondansetron HCl (Zofran Inj) 4 mg IVP Q6H PRN PRN Reason: nausea and vomiting Sertraline HCl (Zoloft) 50 mg PO DAILY [facility] Last Admin: 11/01/16 10:26 Dose: 50 mg Sodium Hypochlorite (Dakins Solution 0.25%) 0 ml TOP DAILY [facility] Last Admin: 11/01/16 09:08 Dose: Not Given - Labs Labs: 10/29/16 17:12 11/01/16 14:10 PT 12.9 SECONDS (9.7-12.2) H 11/01/16 14:10 INR 1.2 11/01/16 14:10 - Constitutional Appears: Non-toxic, Chronically Ill - Head Exam Head Exam: NORMOCEPHALIC - Eye Exam Eye Exam: PERRL. absent: Scleral icterus - ENT Exam ENT Exam: Mucous Membranes Dry - Neck Exam Neck Exam: absent: Lymphadenopathy - Respiratory Exam Respiratory Exam: Decreased Breath Sounds, Clear to Ausculation Bilateral - Cardiovascular Exam Cardiovascular Exam: REGULAR RHYTHM, +S1, +S2 - GI/Abdominal Exam GI & Abdominal Exam: Distended - Rectal Exam Rectal Exam: Deferred - Exam Exam: NORMAL INSPECTION - Extremities Exam Extremities Exam: Pedal Edema, Tenderness. absent: Calf Tenderness - Back Exam Back Exam: absent: CVA tenderness (L), CVA tenderness (R) - Neurological Exam Neurological Exam: Alert, Awake, Oriented x3 - Psychiatric Exam Psychiatric exam: Normal Mood - Skin Skin Exam: Dry Assessment and Plan (1) Diabetic foot infection Status: Acute (2) Ulcer of foot Status: Acute (3) GAEL (acute kidney injury) Status: Acute (4) Abscess and cellulitis Status: Acute (5) Dehydration Status: Acute (6) Morbid obesity with BMI of 40.0-44.9, adult Status: Acute (7) Depression Status: Chronic (8) HIV (human immunodeficiency virus infection) Status: Chronic - Assessment and Plan (Free Text) Assessment: CONSIDER MRI LEFT FOOT MAY NEED FINANCIAL PLANNING ASSISTANT IV ANTIBIOTICS
[2016-11-01] MEDS: (Lantus) Insulin Glargine, Recombinant SC SCH (23:03)
[2016-11-02] MEDS: Morphine 4 MG/ML VIAL IVP PRN ×4 (00:26→18:24)
[2016-11-02] MEDS: Piperacill/Tazo 3.375gm in Dex 3.375 GM/50 ML BAG IVPB SCH ×3 (01:15→18:27)
[2016-11-02 07:48] LABS: ALBUMIN 2.7 g/dL (3.5-5.0)
[2016-11-02 07:51] LABS: ALB/GLOB RATIO 0.5 (1.0-2.1)
[2016-11-02 07:52] LABS: CALCIUM 8.4 mg/dl (8.6-10.4)
[2016-11-02] MEDS: (Novolog) Insulin Aspart, Recombinant 100 u/ml 10 ml vial SC SCH ×4 (07:58→21:43)
[2016-11-02] MEDS: Dakin's Topical 0.25%-Half Strength (480 ml) TOP SCH (10:41)
--- NOTE | 2016-11-02 11:48 | CP.PCM.PN ---
Subjective - Date & Time of Evaluation Date of Evaluation: 11/02/16 Time of Evaluation: 11:45 - Subjective Subjective: S/P LEFT FOOT DEBRIDEMENT OF WOUND/ABSCESS Feels same, lethargic No dyspnea, CPs, n, v, fevers, chills, HAs + cultures- on IV ABs Creat increased to 3.0 Urine spot protein elevated Objective - Vital Signs/Intake and Output Vital Signs (last 24 hours): Temp Pulse Resp BP Pulse Ox 97.6 F 79 20 159/89 H 98 11/02/16 08:41 11/02/16 08:41 11/02/16 08:41 11/02/16 08:41 11/02/16 08:41 Intake and Output: 11/02/16 11/02/16 06:59 18:59 Intake Total 1840 Output Total 800 Balance 1040 - Medications Medications: Current Medications Amlodipine Besylate (Norvasc) 5 mg PO DAILY [facility] Last Admin: 11/02/16 10:35 Dose: 5 mg Diphenhydramine HCl (Benadryl) 25 mg PO Q6 PRN PRN Reason: Itching / Pruritus Last Admin: 11/02/16 06:11 Dose: 25 mg Piperacillin Sod/Tazobactam Sod (Zosyn 3.375 Gm Iv Premix) 3.375 gm in 50 mls @ 100 mls/hr IVPB Q8H [facility] Last Admin: 11/02/16 10:35 Dose: 100 mls/hr Daptomycin 860 mg/ Sodium (Chloride) 100 mls @ 100 mls/hr IV Q24H [facility] Stop: 11/04/16 21:01 Last Admin: 11/01/16 21:12 Dose: 100 mls/hr Lactated Ringer's (Lactated Ringer's) 1,000 mls @ 100 mls/hr IV .Q10H [facility] Last Admin: 11/01/16 18:33 Dose: 100 mls/hr Insulin Aspart (Novolog) 0 unit SC ACHS [facility] PRN Reason: Protocol Last Admin: 11/02/16 07:58 Dose: Not Given Insulin Glargine (Lantus) 12 unit SC HS [facility] Last Admin: 11/01/16 23:03 Dose: Not Given Morphine Sulfate (Morphine) 2 mg IVP Q6H PRN PRN Reason: Pain, moderate (4-7) Last Admin: 11/02/16 06:20 Dose: 2 mg Ondansetron HCl (Zofran Inj) 4 mg IVP Q6H PRN PRN Reason: nausea and vomiting Sertraline HCl (Zoloft) 50 mg PO DAILY [facility] Last Admin: 11/02/16 10:35 Dose: 50 mg Sodium Hypochlorite (Dakins Solution 0.25%) 0 ml TOP DAILY [facility] Last Admin: 11/02/16 10:41 Dose: Not Given - Labs Labs: 10/29/16 17:12 11/02/16 07:13 PT 12.9 SECONDS (9.7-12.2) H 11/01/16 14:10 INR 1.2 11/01/16 14:10 - Constitutional Appears: No Acute Distress, Chronically Ill - Head Exam Head Exam: ATRAUMATIC, NORMAL INSPECTION - Eye Exam Eye Exam: EOMI, Normal appearance - Neck Exam Neck Exam: Normal Inspection. absent: Tenderness - Respiratory Exam Respiratory Exam: Clear to Ausculation Bilateral, NORMAL BREATHING PATTERN - Cardiovascular Exam Cardiovascular Exam: REGULAR RHYTHM, +S1 - GI/Abdominal Exam GI & Abdominal Exam: Soft. absent: Tenderness - Extremities Exam Extremities Exam: Normal Inspection, Pedal Edema - Neurological Exam Neurological Exam: Alert, CN II-XII Intact - Skin Skin Exam: Dry, Warm Assessment and Plan (1) Diabetic foot infection Status: Acute (2) GAEL (acute kidney injury) Status: Acute (3) HIV (human immunodeficiency virus infection) Status: Chronic - Assessment and Plan (Free Text) Plan: Trial fluids serial chemistries IV ABs check protein excretion rate
--- NOTE | 2016-11-02 12:23 | CP.PCM.PN ---
Subjective - Date & Time of Evaluation Date of Evaluation: 11/02/16 Time of Evaluation: 08:00 - Subjective Subjective: wound growing proteus blood isolate may be a contaminant Objective - Vital Signs/Intake and Output Vital Signs (last 24 hours): Temp Pulse Resp BP Pulse Ox 97.6 F 79 20 159/89 H 98 11/02/16 08:41 11/02/16 08:41 11/02/16 08:41 11/02/16 08:41 11/02/16 08:41 Intake and Output: 11/02/16 11/02/16 06:59 18:59 Intake Total 1840 Output Total 800 Balance 1040 - Medications Medications: Current Medications Amlodipine Besylate (Norvasc) 5 mg PO DAILY [facility] Last Admin: 11/02/16 10:35 Dose: 5 mg Diphenhydramine HCl (Benadryl) 25 mg PO Q6 PRN PRN Reason: Itching / Pruritus Last Admin: 11/02/16 06:11 Dose: 25 mg Piperacillin Sod/Tazobactam Sod (Zosyn 3.375 Gm Iv Premix) 3.375 gm in 50 mls @ 100 mls/hr IVPB Q8H [facility] Last Admin: 11/02/16 10:35 Dose: 100 mls/hr Daptomycin 860 mg/ Sodium (Chloride) 100 mls @ 100 mls/hr IV Q24H [facility] Stop: 11/04/16 21:01 Last Admin: 11/01/16 21:12 Dose: 100 mls/hr Lactated Ringer's (Lactated Ringer's) 1,000 mls @ 100 mls/hr IV .Q10H [facility] Last Admin: 11/01/16 18:33 Dose: 100 mls/hr Sodium Chloride (Sodium Chloride 0.9%) 1,000 mls @ 75 mls/hr IV .[id number] [facility] Stop: 11/03/16 12:00 Insulin Aspart (Novolog) 0 unit SC ACHS [facility] PRN Reason: Protocol Last Admin: 11/02/16 07:58 Dose: Not Given Insulin Glargine (Lantus) 12 unit SC HS [facility] Last Admin: 11/01/16 23:03 Dose: Not Given Morphine Sulfate (Morphine) 2 mg IVP Q6H PRN PRN Reason: Pain, moderate (4-7) Last Admin: 11/02/16 06:20 Dose: 2 mg Ondansetron HCl (Zofran Inj) 4 mg IVP Q6H PRN PRN Reason: nausea and vomiting Sertraline HCl (Zoloft) 50 mg PO DAILY [facility] Last Admin: 11/02/16 10:35 Dose: 50 mg Sodium Hypochlorite (Dakins Solution 0.25%) 0 ml TOP DAILY [facility] Last Admin: 11/02/16 10:41 Dose: Not Given - Labs Labs: 10/29/16 17:12 11/02/16 07:13 PT 12.9 SECONDS (9.7-12.2) H 11/01/16 14:10 INR 1.2 11/01/16 14:10 - Constitutional Appears: Non-toxic, Chronically Ill - Head Exam Head Exam: NORMOCEPHALIC - Eye Exam Eye Exam: PERRL. absent: Scleral icterus - ENT Exam ENT Exam: Mucous Membranes Dry - Neck Exam Neck Exam: absent: Lymphadenopathy - Respiratory Exam Respiratory Exam: Decreased Breath Sounds, Clear to Ausculation Bilateral - Cardiovascular Exam Cardiovascular Exam: REGULAR RHYTHM - GI/Abdominal Exam GI & Abdominal Exam: Distended, Soft - Rectal Exam Rectal Exam: Deferred Assessment and Plan (1) Diabetic foot infection Status: Acute (2) Ulcer of foot Status: Acute (3) GAEL (acute kidney injury) Status: Acute (4) Abscess and cellulitis Status: Acute (5) Dehydration Status: Acute (6) Morbid obesity with BMI of 40.0-44.9, adult Status: Acute (7) Depression Status: Chronic (8) HIV (human immunodeficiency virus infection) Status: Chronic - Assessment and Plan (Free Text) Plan: cont iv rx and wound care to discuss options with podiatry may need further debridement ?
--- NOTE | 2016-11-02 12:33 | CP.PCM.PN ---
Subjective - Date & Time of Evaluation Date of Evaluation: 11/02/16 Time of Evaluation: 12:28 - Subjective Subjective: RENAL W/U IN PROGRESS. RENAL FUNCTION DETERIORATING. LT FOOT INF PRESENT. CHRONIC. Objective - Vital Signs/Intake and Output Vital Signs (last 24 hours): Temp Pulse Resp BP Pulse Ox 97.6 F 79 20 159/89 H 98 11/02/16 08:41 11/02/16 08:41 11/02/16 08:41 11/02/16 08:41 11/02/16 08:41 Intake and Output: 11/02/16 11/02/16 06:59 18:59 Intake Total 1840 Output Total 800 Balance 1040 - Medications Medications: Current Medications Amlodipine Besylate (Norvasc) 5 mg PO DAILY [facility] Last Admin: 11/02/16 10:35 Dose: 5 mg Diphenhydramine HCl (Benadryl) 25 mg PO Q6 PRN PRN Reason: Itching / Pruritus Last Admin: 11/02/16 06:11 Dose: 25 mg Piperacillin Sod/Tazobactam Sod (Zosyn 3.375 Gm Iv Premix) 3.375 gm in 50 mls @ 100 mls/hr IVPB Q8H [facility] Last Admin: 11/02/16 10:35 Dose: 100 mls/hr Daptomycin 860 mg/ Sodium (Chloride) 100 mls @ 100 mls/hr IV Q24H [facility] Stop: 11/04/16 21:01 Last Admin: 11/01/16 21:12 Dose: 100 mls/hr Lactated Ringer's (Lactated Ringer's) 1,000 mls @ 100 mls/hr IV .Q10H [facility] Last Admin: 11/01/16 18:33 Dose: 100 mls/hr Sodium Chloride (Sodium Chloride 0.9%) 1,000 mls @ 75 mls/hr IV .[id number] [facility] Stop: 11/03/16 12:00 Insulin Aspart (Novolog) 0 unit SC ACHS [facility] PRN Reason: Protocol Last Admin: 11/02/16 07:58 Dose: Not Given Insulin Glargine (Lantus) 12 unit SC HS [facility] Last Admin: 11/01/16 23:03 Dose: Not Given Morphine Sulfate (Morphine) 2 mg IVP Q6H PRN PRN Reason: Pain, moderate (4-7) Last Admin: 11/02/16 06:20 Dose: 2 mg Ondansetron HCl (Zofran Inj) 4 mg IVP Q6H PRN PRN Reason: nausea and vomiting Sertraline HCl (Zoloft) 50 mg PO DAILY [facility] Last Admin: 11/02/16 10:35 Dose: 50 mg Sodium Hypochlorite (Dakins Solution 0.25%) 0 ml TOP DAILY [facility] Last Admin: 11/02/16 10:41 Dose: Not Given - Labs Labs: 10/29/16 17:12 11/02/16 07:13 PT 12.9 SECONDS (9.7-12.2) H 11/01/16 14:10 INR 1.2 11/01/16 14:10 - Constitutional Appears: No Acute Distress, Chronically Ill - Eye Exam Eye Exam: Normal appearance, PERRL - ENT Exam ENT Exam: Mucous Membranes Moist - Respiratory Exam Respiratory Exam: Clear to Ausculation Bilateral, NORMAL BREATHING PATTERN - Cardiovascular Exam Cardiovascular Exam: REGULAR RHYTHM, +S1, +S2 - GI/Abdominal Exam GI & Abdominal Exam: Soft, Normal Bowel Sounds. absent: Tenderness - Extremities Exam Additional comments: LT LEG ULCER, POST OP I AND D. - Back Exam Back Exam: NORMAL INSPECTION - Neurological Exam Neurological Exam: Alert, Awake, CN II-XII Intact, Normal Gait, Oriented x3 - Psychiatric Exam Psychiatric exam: Normal Affect, Normal Mood Assessment and Plan - Assessment and Plan (Free Text) Assessment: LT LEG ULCER. CRF. STAPH COAGULASE (BLOOD C/S POSITIVE.) WOUND C/S PROTEUS INF. Plan: DICCUSSED FOR PICK LINE. NEEDS TIME TO DECIDE. FOR IV ANTIBIOTICS.
[2016-11-02] MEDS: Sodium Chloride 0.9% 1,000 ML IV SCH (12:46)
[2016-11-02 14:16] LABS: INR 1.1
[2016-11-02 14:40] LABS: CALCIUM 8.4 mg/dl (8.6-10.4)
[2016-11-02] MEDS: Lactated Ringer's 1,000 ML IV SCH (15:32)
[2016-11-02] MEDS: (Lantus) Insulin Glargine, Recombinant SC SCH (21:44)
[2016-11-03] MEDS: Lactated Ringer's 1,000 ML IV SCH (01:15)
[2016-11-03] MEDS: Sodium Chloride 0.9% 1,000 ML IV SCH (01:40)
[2016-11-03] MEDS: Morphine 4 MG/ML VIAL IVP PRN ×4 (02:49→21:17)
[2016-11-03] MEDS: Piperacill/Tazo 3.375gm in Dex 3.375 GM/50 ML BAG IVPB SCH ×3 (02:49→18:13)
[2016-11-03] MEDS: (Novolog) Insulin Aspart, Recombinant 100 u/ml 10 ml vial SC SCH ×4 (07:30→21:21)
[2016-11-03 08:45] LABS: % CD4 (T HELPER CELL) 26 Percent (30-61); % CD8 (SUPPRESSOR T CELL) 60 Percent (12-42); ABSOLUTE CD4 CELLS 269 Cells/mcL (490-1740); ABSOLUTE CD8 CELLS 614 Cells/mcL (180-1170); ABSOLUTE LYMPHOCYTES 1030 Cells/mcL (850-3900); HELPER/SUPPRESSOR RATIO 0.44 Ratio (0.86-5.00)
[2016-11-03 08:55] LABS: ALBUMIN 2.9 g/dL (3.5-5.0)
[2016-11-03 08:58] LABS: ALB/GLOB RATIO 0.5 (1.0-2.1)
[2016-11-03 08:59] LABS: CALCIUM 8.9 mg/dl (8.6-10.4)
[2016-11-03] MEDS: Dakin's Topical 0.25%-Half Strength (480 ml) TOP SCH (09:00)
--- NOTE | 2016-11-03 09:22 | CP.PCM.PN ---
Addendum entered and electronically signed by Miranda Frausto DPM 11/03/16 17: 19: Pt to OR Wednesday afternoon for debridement Pt needs medical optimization prior to procedure Original Note: <Miranda Frausto - Last Filed: 11/03/16 14:30> Subjective - Date & Time of Evaluation Date of Evaluation: 11/03/16 Time of Evaluation: 09:22 - Subjective Subjective: 36 y/o diabetic transgender female seen at bedside this morning with attending, Dr. Coy 2 days s/p left foot I and D. Patient NAD and AAOx3. She admits to some pain to the left foot. She admits to some nausea this morning, but denies any v/f/c/sob/cp. Objective - Vital Signs/Intake and Output Vital Signs (last 24 hours): Temp Pulse Resp BP Pulse Ox 97.9 F 70 20 139/72 98 11/03/16 08:09 11/03/16 08:09 11/03/16 08:09 11/03/16 08:09 11/03/16 08:09 Intake and Output: 11/03/16 11/03/16 06:59 18:59 Intake Total 300 Output Total 800 Balance -500 - Medications Medications: Current Medications Amlodipine Besylate (Norvasc) 5 mg PO DAILY [facility] Last Admin: 11/02/16 10:35 Dose: 5 mg Diphenhydramine HCl (Benadryl) 25 mg PO Q6 PRN PRN Reason: Itching / Pruritus Last Admin: 11/02/16 18:47 Dose: 25 mg Piperacillin Sod/Tazobactam Sod (Zosyn 3.375 Gm Iv Premix) 3.375 gm in 50 mls @ 100 mls/hr IVPB Q8H [facility] Last Admin: 11/03/16 02:49 Dose: 100 mls/hr Daptomycin 860 mg/ Sodium (Chloride) 100 mls @ 100 mls/hr IV Q24H [facility] Stop: 11/04/16 21:01 Last Admin: 11/02/16 21:43 Dose: 100 mls/hr Lactated Ringer's (Lactated Ringer's) 1,000 mls @ 100 mls/hr IV .Q10H [facility] Last Admin: 11/03/16 01:15 Dose: Not Given Sodium Chloride (Sodium Chloride 0.9%) 1,000 mls @ 75 mls/hr IV .[id number] [facility] Stop: 11/03/16 12:00 Last Admin: 11/03/16 01:40 Dose: Not Given Insulin Aspart (Novolog) 0 unit SC ACHS [facility] PRN Reason: Protocol Last Admin: 11/03/16 07:30 Dose: Not Given Insulin Glargine (Lantus) 12 unit SC HS [facility] Last Admin: 11/02/16 21:44 Dose: 12 units Morphine Sulfate (Morphine) 2 mg IVP Q6H PRN PRN Reason: Pain, moderate (4-7) Last Admin: 11/03/16 08:39 Dose: 2 mg Ondansetron HCl (Zofran Inj) 4 mg IVP Q6H PRN PRN Reason: nausea and vomiting Last Admin: 11/03/16 08:45 Dose: 4 mg Sertraline HCl (Zoloft) 50 mg PO DAILY [facility] Last Admin: 11/02/16 10:35 Dose: 50 mg Sodium Hypochlorite (Dakins Solution 0.25%) 0 ml TOP DAILY [facility] Last Admin: 11/02/16 10:41 Dose: Not Given - Labs Labs: 10/29/16 17:12 11/03/16 08:04 PT 12.0 SECONDS (9.7-12.2) 11/02/16 13:55 INR 1.1 11/02/16 13:55 - Constitutional Appears: Non-toxic, No Acute Distress - Extremities Exam Additional comments: left lower extremity focused exam: Vasc: DPand PT pulses non palpable, Temp gradient warm to cool from proximal to distal. Capillary fill time is diminished. Mild to moderate non-pitting edema noted to L foot Derm: Ulceration noted to the lateral aspect of foot by the 5th metatarsal, measuring approximately 3 cm by 4 cm by 5 cm. No malodor noted. No purulence, no erythema, no undermining. Sanguineous drainage noted from the ulceration noted. Superficial ulceration noted on lateral aspect of the left leg, does not probe deep, mixed fibro-granular base Neuro: Protective sensation grossly diminished Ortho: Hx of hallux amputation - Neurological Exam Neurological Exam: Alert, Awake, Oriented x3 - Psychiatric Exam Psychiatric exam: Normal Affect, Normal Mood Assessment and Plan - Assessment and Plan (Free Text) Assessment: 36 y/o female 2 days s/p left foot I and D and left leg ulcerations secondary to diabetes Plan: Pt seen and evaluated at bedside with attending, Dr. Anneliese richardson, chart, vitals reviewed Left foot cleansed with normal sterile saline and dressed with 1/2 inch iodoform packing, xeroform, DSD, kerlix, RAFFY Left foot MRI ordered Continue IV abx per ID post op wound culture shows no growth Pt to get PICC Podiatry will continue to follow <Kalpesh Coy - Last Filed: 11/04/16 17:13> Objective - Vital Signs/Intake and Output Vital Signs (last 24 hours): Temp Pulse Resp BP Pulse Ox 97.8 F 75 20 148/01 L 100 11/04/16 08:00 11/04/16 08:00 11/04/16 08:00 11/04/16 08:00 11/04/16 08:00 Intake and Output: 11/04/16 11/04/16 06:59 18:59 Intake Total 1130 360 Output Total 800 700 Balance 330 -340 - Medications Medications: Current Medications Amlodipine Besylate (Norvasc) 5 mg PO DAILY [facility] Last Admin: 11/04/16 09:26 Dose: 5 mg Diphenhydramine HCl (Benadryl) 25 mg PO Q6 PRN PRN Reason: Itching / Pruritus Last Admin: 11/04/16 11:29 Dose: 25 mg Piperacillin Sod/Tazobactam Sod (Zosyn 3.375 Gm Iv Premix) 3.375 gm in 50 mls @ 100 mls/hr IVPB Q8H [facility] Last Admin: 11/04/16 09:27 Dose: 100 mls/hr Daptomycin 860 mg/ Sodium (Chloride) 100 mls @ 100 mls/hr IV Q24H [facility] Stop: 11/04/16 21:01 Last Admin: 11/03/16 21:22 Dose: 100 mls/hr Sodium Chloride (Sodium Chloride 0.45%) 1,000 mls @ 60 mls/hr IV .[id number] [facility] Last Admin: 11/04/16 09:22 Dose: Not Given Insulin Aspart (Novolog) 0 unit SC ACHS [facility] PRN Reason: Protocol Last Admin: 11/04/16 12:48 Dose: Not Given Insulin Glargine (Lantus) 12 unit SC HS [facility] Last Admin: 11/03/16 21:22 Dose: 12 units Morphine Sulfate (Morphine) 2 mg IVP Q6H PRN PRN Reason: Pain, moderate (4-7) Last Admin: 11/04/16 11:31 Dose: 2 mg Ondansetron HCl (Zofran Inj) 4 mg IVP Q6H PRN PRN Reason: nausea and vomiting Last Admin: 11/03/16 08:45 Dose: 4 mg Sertraline HCl (Zoloft) 50 mg PO DAILY [facility] Last Admin: 11/04/16 09:27 Dose: 50 mg Sodium Hypochlorite (Dakins Solution 0.25%) 0 ml TOP DAILY [facility] Last Admin: 11/04/16 11:34 Dose: Not Given - Labs Labs: 10/29/16 17:12 11/04/16 08:01 PT 12.0 SECONDS (9.7-12.2) 11/02/16 13:55 INR 1.1 11/02/16 13:55 Assessment and Plan - Assessment and Plan (Free Text) Plan: pt seen at bedside s/p debridement with resident . deep defect at 5th met area . to order MRI .continue rx as per Dr Del Valle. DR Coy
--- NOTE | 2016-11-03 09:36 | PCM.OP ---
Operative Report - Operative Report Date of Surgery/Procedure: 11/01/16 Time of Surgery/Procedure: 08:30 Surgeon: Dr. Kalpesh Coy Scrap Drop Engineer: Dr. Larisa Nathan, Dr. Claudia uGallpa Anesthesia/Sedation: IV Sedation Pre-Operative Diagnosis: left foot infected diabetic ulcer with abscess Post-Operative Diagnosis: left foot infected diabetic ulcer with abscess Indication for Surgery: The patient is a 36 year-old female with the above diagnoses. The patient signed the consent after careful explanation of risks, benefits, complication and alternatives for surgical procedure. No guarantees were given nor implied. Pt receiving IV zosyn on the floors and the last dose was given 6 hours before the procedure. NPO status was confirmed prior to taking pt to the OR. Operative Findings: See Operative report Procedure/Operation Description: Preparation: The patient was brought to the operating room and placed on the operating room table in supine position. No tourniquet was used. After induction of IV sedation, the patient received a total of 10 mL of 1:1 mixture of 0.5% Marcaine and 1% lidocaine plain in local block fashion to the left foot. Once local anesthesia was achieved, the left foot was then prepped and draped in usual sterile manner. Pt did not receive pre-operative IV antibiotic because patient was receiving IV zosyn on the floors. Procedure: Attention was then directed to the plantar lateral aspect of the left midfoot where fluid-filled soft tissue pocket noted with a small opening. There was minimal drainage noted from the site. A 4 cm linear longitudinal incision was made over the midfoot wound using a #15 blade. Wound cultures were taken from the site at this point. A curved hemostat was used next to open up the surrounding soft tissue. There was approximately 35 CC of serosanguinous drainage elicited from the site. At this time, there was tracking noted from the plantar lateral midfoot. Next utilizing a Simpulse of 3L of normal saline, the area was mechanically dbrded. Excisional debridement of hyperkeratotic tissue surrounding the wound was performed using sterile # 15 blade. The wound was packed with 1 inch iodoform packing, dressed with 4x4 gauze, kerlix and coban. The attending Dr. Coy was present during the case. Estimated Blood Loss: 35 cc Blood Replaced: none Sponge/Instrument Count: none Drains: none Complications: none Specimen: Wound cultures were taken Discharge & Condition: The patient tolerated the anesthesia and procedure well and was escorted to the recovery room with vital signs stable and neurovascular status intact to the left foot. This patient will follow up with Dr. Coy on the floor.
--- NOTE | 2016-11-03 11:39 | CP.PCM.PN ---
Subjective - Date & Time of Evaluation Date of Evaluation: 11/03/16 Time of Evaluation: 08:00 - Subjective Subjective: went for i and d rx renewed Objective - Vital Signs/Intake and Output Vital Signs (last 24 hours): Temp Pulse Resp BP Pulse Ox 97.9 F 70 20 139/72 98 11/03/16 08:09 11/03/16 08:09 11/03/16 08:09 11/03/16 08:09 11/03/16 08:09 Intake and Output: 11/03/16 11/03/16 06:59 18:59 Intake Total 300 Output Total 800 Balance -500 - Medications Medications: Current Medications Amlodipine Besylate (Norvasc) 5 mg PO DAILY [facility] Last Admin: 11/02/16 10:35 Dose: 5 mg Diphenhydramine HCl (Benadryl) 25 mg PO Q6 PRN PRN Reason: Itching / Pruritus Last Admin: 11/02/16 18:47 Dose: 25 mg Piperacillin Sod/Tazobactam Sod (Zosyn 3.375 Gm Iv Premix) 3.375 gm in 50 mls @ 100 mls/hr IVPB Q8H [facility] Last Admin: 11/03/16 02:49 Dose: 100 mls/hr Daptomycin 860 mg/ Sodium (Chloride) 100 mls @ 100 mls/hr IV Q24H [facility] Stop: 11/04/16 21:01 Last Admin: 11/02/16 21:43 Dose: 100 mls/hr Sodium Chloride (Sodium Chloride 0.9%) 1,000 mls @ 75 mls/hr IV .[id number] [facility] Stop: 11/03/16 12:00 Last Admin: 11/03/16 01:40 Dose: Not Given Insulin Aspart (Novolog) 0 unit SC ACHS [facility] PRN Reason: Protocol Last Admin: 11/03/16 07:30 Dose: Not Given Insulin Glargine (Lantus) 12 unit SC HS [facility] Last Admin: 11/02/16 21:44 Dose: 12 units Morphine Sulfate (Morphine) 2 mg IVP Q6H PRN PRN Reason: Pain, moderate (4-7) Last Admin: 11/03/16 08:39 Dose: 2 mg Ondansetron HCl (Zofran Inj) 4 mg IVP Q6H PRN PRN Reason: nausea and vomiting Last Admin: 11/03/16 08:45 Dose: 4 mg Sertraline HCl (Zoloft) 50 mg PO DAILY [facility] Last Admin: 11/02/16 10:35 Dose: 50 mg Sodium Hypochlorite (Dakins Solution 0.25%) 0 ml TOP DAILY [facility] Last Admin: 11/02/16 10:41 Dose: Not Given - Labs Labs: 10/29/16 17:12 11/03/16 08:04 PT 12.0 SECONDS (9.7-12.2) 11/02/16 13:55 INR 1.1 11/02/16 13:55 - Constitutional Appears: Non-toxic, Chronically Ill - Head Exam Head Exam: NORMOCEPHALIC - Eye Exam Eye Exam: absent: Scleral icterus - ENT Exam ENT Exam: Mucous Membranes Dry - Neck Exam Neck Exam: absent: Lymphadenopathy - Respiratory Exam Respiratory Exam: Decreased Breath Sounds - Cardiovascular Exam Cardiovascular Exam: REGULAR RHYTHM - GI/Abdominal Exam GI & Abdominal Exam: Distended - Rectal Exam Rectal Exam: Deferred - Exam Exam: NORMAL INSPECTION Assessment and Plan (1) Diabetic foot infection Status: Acute (2) Ulcer of foot Status: Acute (3) GAEL (acute kidney injury) Status: Acute (4) Abscess and cellulitis Status: Acute (5) Dehydration Status: Acute (6) Morbid obesity with BMI of 40.0-44.9, adult Status: Acute (7) Depression Status: Chronic (8) HIV (human immunodeficiency virus infection) Status: Chronic - Assessment and Plan (Free Text) Assessment: cont iv antibiotics and wound care may need ALBERT and PiCC to discuss with dr REYES
--- NOTE | 2016-11-03 12:46 | CP.PCM.PN ---
Subjective - Date & Time of Evaluation Date of Evaluation: 11/03/16 Time of Evaluation: 12:43 - Subjective Subjective: s/p I&D of left foot on iv fluids labs noted pt comfortable not in pain. doesnt want to talk or answer questions Objective - Vital Signs/Intake and Output Vital Signs (last 24 hours): Temp Pulse Resp BP Pulse Ox 97.9 F 70 20 139/72 98 11/03/16 08:09 11/03/16 08:09 11/03/16 08:09 11/03/16 08:09 11/03/16 08:09 Intake and Output: 11/03/16 11/03/16 06:59 18:59 Intake Total 300 Output Total 800 Balance -500 - Medications Medications: Current Medications Amlodipine Besylate (Norvasc) 5 mg PO DAILY [facility] Last Admin: 11/03/16 12:17 Dose: 5 mg Diphenhydramine HCl (Benadryl) 25 mg PO Q6 PRN PRN Reason: Itching / Pruritus Last Admin: 11/02/16 18:47 Dose: 25 mg Piperacillin Sod/Tazobactam Sod (Zosyn 3.375 Gm Iv Premix) 3.375 gm in 50 mls @ 100 mls/hr IVPB Q8H [facility] Last Admin: 11/03/16 12:16 Dose: 100 mls/hr Daptomycin 860 mg/ Sodium (Chloride) 100 mls @ 100 mls/hr IV Q24H [facility] Stop: 11/04/16 21:01 Last Admin: 11/02/16 21:43 Dose: 100 mls/hr Insulin Aspart (Novolog) 0 unit SC ACHS [facility] PRN Reason: Protocol Last Admin: 11/03/16 12:23 Dose: Not Given Insulin Glargine (Lantus) 12 unit SC HS [facility] Last Admin: 11/02/16 21:44 Dose: 12 units Morphine Sulfate (Morphine) 2 mg IVP Q6H PRN PRN Reason: Pain, moderate (4-7) Last Admin: 11/03/16 08:39 Dose: 2 mg Ondansetron HCl (Zofran Inj) 4 mg IVP Q6H PRN PRN Reason: nausea and vomiting Last Admin: 11/03/16 08:45 Dose: 4 mg Sertraline HCl (Zoloft) 50 mg PO DAILY [facility] Last Admin: 11/03/16 12:17 Dose: 50 mg Sodium Hypochlorite (Dakins Solution 0.25%) 0 ml TOP DAILY [facility] Last Admin: 11/02/16 10:41 Dose: Not Given - Labs Labs: 10/29/16 17:12 11/03/16 08:04 PT 12.0 SECONDS (9.7-12.2) 11/02/16 13:55 INR 1.1 11/02/16 13:55 - Constitutional Appears: Non-toxic, No Acute Distress - Head Exam Head Exam: NORMAL INSPECTION - Eye Exam Eye Exam: Normal appearance - ENT Exam ENT Exam: Mucous Membranes Moist, Normal Exam - Neck Exam Neck Exam: Normal Inspection - Respiratory Exam Respiratory Exam: Clear to Ausculation Bilateral, NORMAL BREATHING PATTERN - Cardiovascular Exam Cardiovascular Exam: RRR - GI/Abdominal Exam GI & Abdominal Exam: Distended, Soft - Extremities Exam Additional comments: Lt leg edematous, in dressing - Neurological Exam Neurological Exam: Alert, Oriented x3 Assessment and Plan (1) Diabetic foot infection Status: Acute (2) GAEL (acute kidney injury) Status: Acute (3) Abscess and cellulitis Status: Acute (4) Diabetes mellitus type 1, uncontrolled, insulin dependent Status: Acute (5) Hypertension Status: Acute - Assessment and Plan (Free Text) Assessment: improving renal function maintain iv fluids
--- NOTE | 2016-11-03 12:49 | CP.PCM.PN ---
Subjective - Date & Time of Evaluation Date of Evaluation: 11/03/16 Time of Evaluation: 12:47 - Subjective Subjective: CONDITION SAME. AGREED FOR PICC LINE. Objective - Vital Signs/Intake and Output Vital Signs (last 24 hours): Temp Pulse Resp BP Pulse Ox 97.9 F 70 20 139/72 98 11/03/16 08:09 11/03/16 08:09 11/03/16 08:09 11/03/16 08:09 11/03/16 08:09 Intake and Output: 11/03/16 11/03/16 06:59 18:59 Intake Total 300 Output Total 800 Balance -500 - Medications Medications: Current Medications Amlodipine Besylate (Norvasc) 5 mg PO DAILY [facility] Last Admin: 11/03/16 12:17 Dose: 5 mg Diphenhydramine HCl (Benadryl) 25 mg PO Q6 PRN PRN Reason: Itching / Pruritus Last Admin: 11/02/16 18:47 Dose: 25 mg Piperacillin Sod/Tazobactam Sod (Zosyn 3.375 Gm Iv Premix) 3.375 gm in 50 mls @ 100 mls/hr IVPB Q8H [facility] Last Admin: 11/03/16 12:16 Dose: 100 mls/hr Daptomycin 860 mg/ Sodium (Chloride) 100 mls @ 100 mls/hr IV Q24H [facility] Stop: 11/04/16 21:01 Last Admin: 11/02/16 21:43 Dose: 100 mls/hr Insulin Aspart (Novolog) 0 unit SC ACHS [facility] PRN Reason: Protocol Last Admin: 11/03/16 12:23 Dose: Not Given Insulin Glargine (Lantus) 12 unit SC HS [facility] Last Admin: 11/02/16 21:44 Dose: 12 units Morphine Sulfate (Morphine) 2 mg IVP Q6H PRN PRN Reason: Pain, moderate (4-7) Last Admin: 11/03/16 08:39 Dose: 2 mg Ondansetron HCl (Zofran Inj) 4 mg IVP Q6H PRN PRN Reason: nausea and vomiting Last Admin: 11/03/16 08:45 Dose: 4 mg Sertraline HCl (Zoloft) 50 mg PO DAILY [facility] Last Admin: 11/03/16 12:17 Dose: 50 mg Sodium Hypochlorite (Dakins Solution 0.25%) 0 ml TOP DAILY [facility] Last Admin: 11/02/16 10:41 Dose: Not Given - Labs Labs: 10/29/16 17:12 11/03/16 08:04 PT 12.0 SECONDS (9.7-12.2) 11/02/16 13:55 INR 1.1 11/02/16 13:55 - Constitutional Appears: No Acute Distress, Chronically Ill - Eye Exam Eye Exam: Normal appearance, PERRL - ENT Exam ENT Exam: Mucous Membranes Moist - Respiratory Exam Respiratory Exam: Clear to Ausculation Bilateral - Cardiovascular Exam Cardiovascular Exam: REGULAR RHYTHM, +S1, +S2 - GI/Abdominal Exam GI & Abdominal Exam: Soft, Normal Bowel Sounds - Extremities Exam Additional comments: SAME - Back Exam Back Exam: NORMAL INSPECTION - Neurological Exam Neurological Exam: Alert, Awake, CN II-XII Intact, Normal Gait, Oriented x3 Assessment and Plan - Assessment and Plan (Free Text) Assessment: LT FOOT ULCER. CELLULITIS. CRF. DM. Plan: FOR PICC LINE. MRI LT FOOT. IV ANTIBIOTICS.
--- NOTE | 2016-11-03 13:46 | MRI ---
MRI left foot History: Osteomyelitis. Comparison: 11/01/2016 Technique: Multi-echo multiplanar sequences were performed through the left foot without the use of intravenous contrast. Findings: Marked deformities of the left foot including resection of the 1st digit to the metatarsal head. Deformities of the 2nd through 5th metatarsal bones with osteotomies of the 2nd through 5th metatarsal heads and shafts. Marked cortical productive change and heterotopic bone seen at the metatarsal shafts and heads at that level. Adjacent bony destructive changes noted at the bases of the 2nd through 5th proximal phalanges. Prominent soft tissue ulceration seen at the lateral foot at the base of the 5th metatarsal bone extending into the volar soft tissues with prominent phlegmon and/or abscess collection measuring up to 5.9 x 1.9 centimeters. Prominent signal abnormality seen within the 5th metatarsal remnant demonstrating decreased T1 signal and increased STIR signal consistent with acute osteomyelitis. Patchy reactive bone marrow edema with mild patchy decreased T1 signal seen within 3rd and 4th metatarsal shafts, nonspecific. Prominent proliferative heterotopic bone formation at this level which may represent changes of chronic osteomyelitis and or neuropathic change. Prominent fluid collection noted at the volar base of the 2nd metatarsal shaft measuring up to 3.0 x 1.3 centimeters with internal synovial debris and hypertrophy. Reactive edema seen within the 2nd metatarsal shaft with some mild patchy decreased T1 signal, nonspecific ; although, superimposed acute on chronic osteomyelitic changes cannot be excluded. In addition, there is prominent signal abnormality seen within the 2nd proximal phalanx with patchy decreased T1 signal and increased STIR signal for which acute osteomyelitis cannot entirely be excluded. Resection of the 1st digit to the metatarsal head. Cortical destructive changes at the 1st distal metatarsal remnant with increased STIR signal. These changes may represent postsurgical changes however acute superimposed infectious changes cannot be excluded. Fraying with increased signal seen at the Lisfranc ligament suggestive for partial tearing. Nonspecific patchy reactive edema seen throughout the midfoot including the middle cuneiform bone, lateral aspect of the cuboid bone, lateral aspect of the navicular bone, and lateral aspect of the calcaneus. These changes are nonspecific and again superimposed acute infectious or inflammatory changes cannot be excluded. Impression: 1. Marked deformities of the left foot including resection of the 1st digit to the metatarsal head. Deformities of the 2nd through 5th metatarsal bones with osteotomies of the 2nd through 5th metatarsal heads and shafts. Marked cortical productive change and heterotopic bone seen at the metatarsal shafts and heads at that level. Adjacent bony destructive changes noted at the bases of the 2nd through 5th proximal phalanges. 2. Prominent soft tissue ulceration seen at the lateral foot at the base of the 5th metatarsal bone extending into the volar soft tissues with prominent phlegmon and/or abscess collection measuring up to 5.9 x 1.9 centimeters. 3. Prominent signal abnormality seen within the 5th metatarsal remnant demonstrating decreased T1 signal and increased STIR signal consistent with acute osteomyelitis. 4. Patchy reactive bone marrow edema with mild patchy decreased T1 signal seen within 3rd and 4th metatarsal shafts, nonspecific. Prominent proliferative heterotopic bone formation at this level which may represent changes of chronic osteomyelitis and or neuropathic change. 5. Prominent fluid collection noted at the volar base of the 2nd metatarsal shaft measuring up to 3.0 x 1.3 centimeters with internal synovial debris and hypertrophy. Reactive edema seen within the 2nd metatarsal shaft with some mild patchy decreased T1 signal, nonspecific ; although, superimposed acute on chronic osteomyelitic changes cannot be excluded. In addition, there is prominent signal abnormality seen within the 2nd proximal phalanx with patchy decreased T1 signal and increased STIR signal for which acute osteomyelitis cannot entirely be excluded. 6. Resection of the 1st digit to the metatarsal head. Cortical destructive changes at the 1st distal metatarsal remnant with increased STIR signal. These changes may represent postsurgical changes however acute superimposed infectious changes cannot be excluded. 7. Fraying with increased signal seen at the Lisfranc ligament suggestive for partial tearing. 8. Nonspecific patchy reactive edema seen throughout the midfoot including the middle cuneiform bone, lateral aspect of the cuboid bone, lateral aspect of the navicular bone, and lateral aspect of the calcaneus. These changes are nonspecific and again superimposed acute infectious or inflammatory changes cannot be excluded.
[2016-11-03] MEDS ORDERED: Sodium Chloride 0.9% 1,000 ML IV SCH (15:15)
[2016-11-03 15:52] LABS: URINE 24 HOUR TOTAL PROTEIN 14632.8 mg/24hr (42-225)
[2016-11-03] MEDS: Sodium Chloride 0.45% 1,000 ML IV SCH (18:12)
[2016-11-03] MEDS: (Lantus) Insulin Glargine, Recombinant SC SCH (21:22)
[2016-11-04] MEDS: Piperacill/Tazo 3.375gm in Dex 3.375 GM/50 ML BAG IVPB SCH ×3 (03:01→17:55)
[2016-11-04] MEDS: Morphine 4 MG/ML VIAL IVP PRN ×3 (03:10→18:01)
[2016-11-04] MEDS: (Novolog) Insulin Aspart, Recombinant 100 u/ml 10 ml vial SC SCH ×4 (08:07→21:49)
[2016-11-04 08:34] LABS: CALCIUM 8.8 mg/dl (8.6-10.4)
[2016-11-04] MEDS: Sodium Chloride 0.45% 1,000 ML IV SCH (09:22)
[2016-11-04] MEDS: Dakin's Topical 0.25%-Half Strength (480 ml) TOP SCH (11:34)
--- NOTE | 2016-11-04 12:36 | CP.PCM.PN ---
Subjective - Date & Time of Evaluation Date of Evaluation: 11/04/16 Time of Evaluation: 12:30 - Subjective Subjective: 36 y/o diabetic transgender female seen at bedside this morning 3 days s/p left foot I and D. Patient NAD and AAOx3. She admits to some pain to the left foot. She denies any n/v/f/c/sob/cp. SHe is aware that Wednesday afternoon she is going to the OR for a wound debridement and is agreeable. Objective - Vital Signs/Intake and Output Vital Signs (last 24 hours): Temp Pulse Resp BP Pulse Ox 97.8 F 75 20 148/01 L 100 11/04/16 08:00 11/04/16 08:00 11/04/16 08:00 11/04/16 08:00 11/04/16 08:00 Intake and Output: 11/04/16 11/04/16 06:59 18:59 Intake Total 1130 Output Total 800 Balance 330 - Medications Medications: Current Medications Amlodipine Besylate (Norvasc) 5 mg PO DAILY [facility] Last Admin: 11/04/16 09:26 Dose: 5 mg Diphenhydramine HCl (Benadryl) 25 mg PO Q6 PRN PRN Reason: Itching / Pruritus Last Admin: 11/04/16 11:29 Dose: 25 mg Piperacillin Sod/Tazobactam Sod (Zosyn 3.375 Gm Iv Premix) 3.375 gm in 50 mls @ 100 mls/hr IVPB Q8H [facility] Last Admin: 11/04/16 09:27 Dose: 100 mls/hr Daptomycin 860 mg/ Sodium (Chloride) 100 mls @ 100 mls/hr IV Q24H [facility] Stop: 11/04/16 21:01 Last Admin: 11/03/16 21:22 Dose: 100 mls/hr Sodium Chloride (Sodium Chloride 0.45%) 1,000 mls @ 60 mls/hr IV .[id number] [facility] Last Admin: 11/04/16 09:22 Dose: Not Given Insulin Aspart (Novolog) 0 unit SC ACHS [facility] PRN Reason: Protocol Last Admin: 11/04/16 08:07 Dose: Not Given Insulin Glargine (Lantus) 12 unit SC HS [facility] Last Admin: 11/03/16 21:22 Dose: 12 units Morphine Sulfate (Morphine) 2 mg IVP Q6H PRN PRN Reason: Pain, moderate (4-7) Last Admin: 11/04/16 11:31 Dose: 2 mg Ondansetron HCl (Zofran Inj) 4 mg IVP Q6H PRN PRN Reason: nausea and vomiting Last Admin: 11/03/16 08:45 Dose: 4 mg Sertraline HCl (Zoloft) 50 mg PO DAILY [facility] Last Admin: 11/04/16 09:27 Dose: 50 mg Sodium Hypochlorite (Dakins Solution 0.25%) 0 ml TOP DAILY [facility] Last Admin: 11/04/16 11:34 Dose: Not Given - Labs Labs: 10/29/16 17:12 11/04/16 08:01 PT 12.0 SECONDS (9.7-12.2) 11/02/16 13:55 INR 1.1 11/02/16 13:55 - Constitutional Appears: Well, Non-toxic, No Acute Distress - Extremities Exam Additional comments: left lower extremity focused exam: Vasc: DP and PT pulses non-palpable, Temp gradient warm to cool from proximal to distal. Capillary fill time is diminished. Mild to moderate non-pitting edema noted to L foot Derm: Ulceration noted to the lateral aspect of foot by the 5th metatarsal, measuring approximately 3 cm by 4 cm by 5 cm. No malodor noted. No purulence, no erythema, no undermining. Sanguineous drainage noted from the ulceration noted. Superficial ulceration noted on lateral aspect of the left leg, does not probe deep, mixed fibro-granular base Neuro: Protective sensation grossly diminished Ortho: Hx of hallux amputation - Neurological Exam Neurological Exam: Alert, Awake, Oriented x3 - Psychiatric Exam Psychiatric exam: Normal Affect, Normal Mood Assessment and Plan - Assessment and Plan (Free Text) Assessment: 36 y/o female 3 days s/p left foot I and D and left leg ulcerations secondary to diabetes Plan: Pt seen and evaluated Discussed with attending, Dr. Coy lab, chart, vitals reviewed Left foot cleansed with normal sterile saline and dressed with 1/2 inch iodoform packing, xeroform, DSD, kerlix, RAFFY Left foot MRI impressions include: Prominent soft tissue ulceration seen at the lateral foot at the base of the 5th metatarsal bone extending into the volar soft tissues with prominent phlegmon and/or abscess collection measuring up to 5.9 x 1.9 centimeters. Continue IV abx per ID Pt to get PICC Patient to OR Wednesday11/06/16 afternoon (after 3:30 pm) for left foot debridement Patient to be NPO after 6:30 am breakfast tray on 11/06/16 medical optimization needed Discussed with MADDIE Lopez anticoagulation to be held prior Podiatry will continue to follow
--- NOTE | 2016-11-04 12:38 | CP.PCM.PN ---
Subjective - Date & Time of Evaluation Date of Evaluation: 11/04/16 Time of Evaluation: 12:34 - Subjective Subjective: AFEBRILE. LRG PAIN PRESENT. CH CELLULITIS PRESENT. ABSCESS PRESENT. Objective - Vital Signs/Intake and Output Vital Signs (last 24 hours): Temp Pulse Resp BP Pulse Ox 97.8 F 75 20 148/01 L 100 11/04/16 08:00 11/04/16 08:00 11/04/16 08:00 11/04/16 08:00 11/04/16 08:00 Intake and Output: 11/04/16 11/04/16 06:59 18:59 Intake Total 1130 Output Total 800 Balance 330 - Medications Medications: Current Medications Amlodipine Besylate (Norvasc) 5 mg PO DAILY [facility] Last Admin: 11/04/16 09:26 Dose: 5 mg Diphenhydramine HCl (Benadryl) 25 mg PO Q6 PRN PRN Reason: Itching / Pruritus Last Admin: 11/04/16 11:29 Dose: 25 mg Piperacillin Sod/Tazobactam Sod (Zosyn 3.375 Gm Iv Premix) 3.375 gm in 50 mls @ 100 mls/hr IVPB Q8H [facility] Last Admin: 11/04/16 09:27 Dose: 100 mls/hr Daptomycin 860 mg/ Sodium (Chloride) 100 mls @ 100 mls/hr IV Q24H [facility] Stop: 11/04/16 21:01 Last Admin: 11/03/16 21:22 Dose: 100 mls/hr Sodium Chloride (Sodium Chloride 0.45%) 1,000 mls @ 60 mls/hr IV .[id number] [facility] Last Admin: 11/04/16 09:22 Dose: Not Given Insulin Aspart (Novolog) 0 unit SC ACHS [facility] PRN Reason: Protocol Last Admin: 11/04/16 08:07 Dose: Not Given Insulin Glargine (Lantus) 12 unit SC HS [facility] Last Admin: 11/03/16 21:22 Dose: 12 units Morphine Sulfate (Morphine) 2 mg IVP Q6H PRN PRN Reason: Pain, moderate (4-7) Last Admin: 11/04/16 11:31 Dose: 2 mg Ondansetron HCl (Zofran Inj) 4 mg IVP Q6H PRN PRN Reason: nausea and vomiting Last Admin: 11/03/16 08:45 Dose: 4 mg Sertraline HCl (Zoloft) 50 mg PO DAILY [facility] Last Admin: 11/04/16 09:27 Dose: 50 mg Sodium Hypochlorite (Dakins Solution 0.25%) 0 ml TOP DAILY [facility] Last Admin: 11/04/16 11:34 Dose: Not Given - Labs Labs: 10/29/16 17:12 11/04/16 08:01 PT 12.0 SECONDS (9.7-12.2) 11/02/16 13:55 INR 1.1 11/02/16 13:55 - Constitutional Appears: No Acute Distress, Chronically Ill - Eye Exam Eye Exam: Normal appearance, PERRL - ENT Exam ENT Exam: Mucous Membranes Moist - Respiratory Exam Respiratory Exam: Clear to Ausculation Bilateral, NORMAL BREATHING PATTERN - Cardiovascular Exam Cardiovascular Exam: REGULAR RHYTHM, +S1, +S2 - GI/Abdominal Exam GI & Abdominal Exam: Soft, Normal Bowel Sounds - Back Exam Back Exam: NORMAL INSPECTION - Neurological Exam Neurological Exam: Alert, Awake, CN II-XII Intact, Normal Gait, Oriented x3 - Psychiatric Exam Psychiatric exam: Normal Affect, Normal Mood Assessment and Plan - Assessment and Plan (Free Text) Assessment: ABSCESS LT FOOT. CH ULCER. HTN. HIV. Plan: WAS FOR PICC LINE. PT REFUSED, WANTED TO BE DONE BY [facility] ONLY. FOR I AND D ON WEDNESDAY. CT IV ANTIBIOTICS. PT MEDICALLY CLEARED FOR OR.
--- NOTE | 2016-11-04 14:49 | CP.PCM.PN ---
Subjective - Date & Time of Evaluation Date of Evaluation: 11/04/16 Time of Evaluation: 14:00 - Subjective Subjective: for OR on wednesday for picc line no acute events labs with improvement no fever no chest pain no sob good appetite no urinary issues no edema no rash no joint pain no headache Objective - Vital Signs/Intake and Output Vital Signs (last 24 hours): Temp Pulse Resp BP Pulse Ox 97.8 F 75 20 148/01 L 100 11/04/16 08:00 11/04/16 08:00 11/04/16 08:00 11/04/16 08:00 11/04/16 08:00 Intake and Output: 11/04/16 11/04/16 06:59 18:59 Intake Total 1130 360 Output Total 800 700 Balance 330 -340 - Medications Medications: Current Medications Amlodipine Besylate (Norvasc) 5 mg PO DAILY [facility] Last Admin: 11/04/16 09:26 Dose: 5 mg Diphenhydramine HCl (Benadryl) 25 mg PO Q6 PRN PRN Reason: Itching / Pruritus Last Admin: 11/04/16 11:29 Dose: 25 mg Piperacillin Sod/Tazobactam Sod (Zosyn 3.375 Gm Iv Premix) 3.375 gm in 50 mls @ 100 mls/hr IVPB Q8H [facility] Last Admin: 11/04/16 09:27 Dose: 100 mls/hr Daptomycin 860 mg/ Sodium (Chloride) 100 mls @ 100 mls/hr IV Q24H [facility] Stop: 11/04/16 21:01 Last Admin: 11/03/16 21:22 Dose: 100 mls/hr Sodium Chloride (Sodium Chloride 0.45%) 1,000 mls @ 60 mls/hr IV .[id number] [facility] Last Admin: 11/04/16 09:22 Dose: Not Given Insulin Aspart (Novolog) 0 unit SC ACHS [facility] PRN Reason: Protocol Last Admin: 11/04/16 12:48 Dose: Not Given Insulin Glargine (Lantus) 12 unit SC HS [facility] Last Admin: 11/03/16 21:22 Dose: 12 units Morphine Sulfate (Morphine) 2 mg IVP Q6H PRN PRN Reason: Pain, moderate (4-7) Last Admin: 11/04/16 11:31 Dose: 2 mg Ondansetron HCl (Zofran Inj) 4 mg IVP Q6H PRN PRN Reason: nausea and vomiting Last Admin: 11/03/16 08:45 Dose: 4 mg Sertraline HCl (Zoloft) 50 mg PO DAILY [facility] Last Admin: 11/04/16 09:27 Dose: 50 mg Sodium Hypochlorite (Dakins Solution 0.25%) 0 ml TOP DAILY [facility] Last Admin: 11/04/16 11:34 Dose: Not Given - Labs Labs: 10/29/16 17:12 11/04/16 08:01 PT 12.0 SECONDS (9.7-12.2) 11/02/16 13:55 INR 1.1 11/02/16 13:55 - Constitutional Appears: Non-toxic, No Acute Distress - Eye Exam Eye Exam: EOMI - ENT Exam ENT Exam: Mucous Membranes Moist - Neck Exam Neck Exam: Full ROM. absent: Lymphadenopathy - Respiratory Exam Respiratory Exam: Clear to Ausculation Bilateral. absent: Accessory Muscle Use - Cardiovascular Exam Cardiovascular Exam: REGULAR RHYTHM. absent: Rubs - GI/Abdominal Exam GI & Abdominal Exam: Soft, Normal Bowel Sounds. absent: Guarding - Neurological Exam Neurological Exam: Alert, Oriented x3 Assessment and Plan - Assessment and Plan (Free Text) Assessment: ckd diabetic foot ulcer on iv ab wound care ongoing OR on Wednesday avoid nephrotoxic agents trend labs
--- NOTE | 2016-11-04 16:19 | CP.PCM.PN ---
Subjective - Date & Time of Evaluation Date of Evaluation: 11/04/16 Time of Evaluation: 07:00 - Subjective Subjective: no new positive cultures c/o pain left foot iv rx in progress for OR on wednesday discussed with dr walters Objective - Vital Signs/Intake and Output Vital Signs (last 24 hours): Temp Pulse Resp BP Pulse Ox 97.8 F 75 20 148/01 L 100 11/04/16 08:00 11/04/16 08:00 11/04/16 08:00 11/04/16 08:00 11/04/16 08:00 Intake and Output: 11/04/16 11/04/16 06:59 18:59 Intake Total 1130 360 Output Total 800 700 Balance 330 -340 - Medications Medications: Current Medications Amlodipine Besylate (Norvasc) 5 mg PO DAILY [facility] Last Admin: 11/04/16 09:26 Dose: 5 mg Diphenhydramine HCl (Benadryl) 25 mg PO Q6 PRN PRN Reason: Itching / Pruritus Last Admin: 11/04/16 11:29 Dose: 25 mg Piperacillin Sod/Tazobactam Sod (Zosyn 3.375 Gm Iv Premix) 3.375 gm in 50 mls @ 100 mls/hr IVPB Q8H [facility] Last Admin: 11/04/16 09:27 Dose: 100 mls/hr Daptomycin 860 mg/ Sodium (Chloride) 100 mls @ 100 mls/hr IV Q24H [facility] Stop: 11/04/16 21:01 Last Admin: 11/03/16 21:22 Dose: 100 mls/hr Sodium Chloride (Sodium Chloride 0.45%) 1,000 mls @ 60 mls/hr IV .[id number] [facility] Last Admin: 11/04/16 09:22 Dose: Not Given Insulin Aspart (Novolog) 0 unit SC ACHS [facility] PRN Reason: Protocol Last Admin: 11/04/16 12:48 Dose: Not Given Insulin Glargine (Lantus) 12 unit SC HS [facility] Last Admin: 11/03/16 21:22 Dose: 12 units Morphine Sulfate (Morphine) 2 mg IVP Q6H PRN PRN Reason: Pain, moderate (4-7) Last Admin: 11/04/16 11:31 Dose: 2 mg Ondansetron HCl (Zofran Inj) 4 mg IVP Q6H PRN PRN Reason: nausea and vomiting Last Admin: 11/03/16 08:45 Dose: 4 mg Sertraline HCl (Zoloft) 50 mg PO DAILY [facility] Last Admin: 11/04/16 09:27 Dose: 50 mg Sodium Hypochlorite (Dakins Solution 0.25%) 0 ml TOP DAILY [facility] Last Admin: 11/04/16 11:34 Dose: Not Given - Labs Labs: 10/29/16 17:12 11/04/16 08:01 PT 12.0 SECONDS (9.7-12.2) 11/02/16 13:55 INR 1.1 11/02/16 13:55 - Constitutional Appears: Non-toxic - Head Exam Head Exam: NORMOCEPHALIC - Eye Exam Eye Exam: PERRL - ENT Exam ENT Exam: Mucous Membranes Dry - Neck Exam Neck Exam: absent: Lymphadenopathy - Respiratory Exam Respiratory Exam: Decreased Breath Sounds, Clear to Ausculation Bilateral - Cardiovascular Exam Cardiovascular Exam: REGULAR RHYTHM, +S1, +S2 - GI/Abdominal Exam GI & Abdominal Exam: Distended, Soft - Rectal Exam Rectal Exam: Deferred Assessment and Plan (1) Diabetic foot infection Status: Acute (2) Ulcer of foot Status: Acute (3) GAEL (acute kidney injury) Status: Acute (4) Abscess and cellulitis Status: Acute (5) Dehydration Status: Acute (6) Morbid obesity with BMI of 40.0-44.9, adult Status: Acute (7) Depression Status: Chronic (8) HIV (human immunodeficiency virus infection) Status: Chronic
[2016-11-04] MEDS: (Lantus) Insulin Glargine, Recombinant SC SCH (21:48)
[2016-11-05] MEDS: Piperacill/Tazo 3.375gm in Dex 3.375 GM/50 ML BAG IVPB SCH ×3 (02:05→17:07)
[2016-11-05] MEDS: Sodium Chloride 0.45% 1,000 ML IV SCH (02:08)
[2016-11-05 07:39] LABS: BASO # 0.1 K/uL (0.0-0.2); BASO % 0.8 % (0.0-2.0); EOS # 0.2 K/uL (0.0-0.7); EOS % 3.4 % (0.0-4.0); HEMOGLOBIN 9.8 g/dL (11.0-16.0); LYMPH % 32.7 % (20.0-40.0); MEAN CELL VOLUME 82.9 fL (81.0-99.0); MEAN CORPUSCULAR HEMOGLOBIN 26.7 pg (27.0-31.0); MEAN CORPUSCULAR HGB CONC 32.2 g/dL (33.0-37.0); MEAN PLATELET VOLUME 7.3 fL (7.2-11.7); MONO # 0.8 K/uL (0.0-0.8); MONO % 13.1 % (0.0-10.0); NEUT # 3.1 K/uL (1.8-7.0); NRBC % 0.2 % (0.0-2.0); RBC 3.68 Mil/uL (3.80-5.20); RED CELL DISTRIBUTION WIDTH 15.2 % (11.5-14.5); WHITE BLOOD COUNT 6.2 K/uL (4.8-10.8)
[2016-11-05 07:52] LABS: ALB/GLOB RATIO 0.6 (1.0-2.1); ALBUMIN 2.8 g/dL (3.5-5.0); CALCIUM 8.4 mg/dl (8.6-10.4)
[2016-11-05] MEDS: (Novolog) Insulin Aspart, Recombinant 100 u/ml 10 ml vial SC SCH ×4 (08:55→22:09)
[2016-11-05] MEDS: Dakin's Topical 0.25%-Half Strength (480 ml) TOP SCH (09:26)
--- NOTE | 2016-11-05 11:12 | CP.PCM.PN ---
Subjective - Date & Time of Evaluation Date of Evaluation: 11/05/16 Time of Evaluation: 11:10 - Subjective Subjective: plan for or on wednesday noted on iv fluids no n/v/d/cp/sob/rash/headache labs noted Objective - Vital Signs/Intake and Output Vital Signs (last 24 hours): Temp Pulse Resp BP Pulse Ox 98.6 F 71 20 163/76 H 99 11/05/16 00:00 11/05/16 00:00 11/05/16 00:00 11/05/16 00:00 11/05/16 00:00 Intake and Output: 11/05/16 11/05/16 06:59 18:59 Intake Total 800 Output Total 650 Balance 150 - Medications Medications: Current Medications Amlodipine Besylate (Norvasc) 5 mg PO DAILY [facility] Last Admin: 11/05/16 09:25 Dose: 5 mg Diphenhydramine HCl (Benadryl) 25 mg PO Q6 PRN PRN Reason: Itching / Pruritus Last Admin: 11/05/16 05:58 Dose: 25 mg Piperacillin Sod/Tazobactam Sod (Zosyn 3.375 Gm Iv Premix) 3.375 gm in 50 mls @ 100 mls/hr IVPB Q8H [facility] Last Admin: 11/05/16 09:25 Dose: 100 mls/hr Insulin Aspart (Novolog) 0 unit SC ACHS [facility] PRN Reason: Protocol Last Admin: 11/05/16 08:55 Dose: Not Given Insulin Glargine (Lantus) 12 unit SC HS [facility] Last Admin: 11/04/16 21:48 Dose: 12 units Morphine Sulfate (Morphine) 2 mg IVP Q6H PRN PRN Reason: Pain, moderate (4-7) Last Admin: 11/05/16 06:01 Dose: 2 mg Ondansetron HCl (Zofran Inj) 4 mg IVP Q6H PRN PRN Reason: nausea and vomiting Last Admin: 11/03/16 08:45 Dose: 4 mg Sertraline HCl (Zoloft) 50 mg PO DAILY [facility] Last Admin: 11/05/16 09:25 Dose: 50 mg Sodium Hypochlorite (Dakins Solution 0.25%) 0 ml TOP DAILY [facility] Last Admin: 11/05/16 09:26 Dose: Not Given - Labs Labs: 11/05/16 07:10 11/05/16 07:10 PT 12.0 SECONDS (9.7-12.2) 11/02/16 13:55 INR 1.1 11/02/16 13:55 - Constitutional Appears: Non-toxic, No Acute Distress - Head Exam Head Exam: NORMAL INSPECTION - Eye Exam Eye Exam: Normal appearance - ENT Exam ENT Exam: Mucous Membranes Moist, Normal Exam - Neck Exam Neck Exam: Normal Inspection - Respiratory Exam Respiratory Exam: Clear to Ausculation Bilateral, NORMAL BREATHING PATTERN - Cardiovascular Exam Cardiovascular Exam: REGULAR RHYTHM, RRR - GI/Abdominal Exam GI & Abdominal Exam: Soft, Normal Bowel Sounds - Extremities Exam Extremities Exam: Pedal Edema (L>R, left foot in dressing) - Neurological Exam Neurological Exam: Alert, Awake, Oriented x3 Assessment and Plan (1) Diabetic foot infection Status: Acute (2) GAEL (acute kidney injury) Status: Acute (3) Abscess and cellulitis Status: Acute (4) Diabetes mellitus type 1, uncontrolled, insulin dependent Status: Acute (5) Hypertension Status: Acute - Assessment and Plan (Free Text) Assessment: improving renal function, monitor daily chems dc iv fluids. may restart when npo
--- NOTE | 2016-11-05 11:36 | CP.PCM.PN ---
Subjective - Date & Time of Evaluation Date of Evaluation: 11/05/16 Time of Evaluation: 11:36 - Subjective Subjective: 36 y/o diabetic transgender female was seen at bedside with attending, Dr. Coy 4 days s/p left foot I and D. Patient NAD and AAOx3. She admits to some pain to the left foot. She denies any n/v/f/c/sob/cp. She is aware that tomorrow afternoon she is going to the OR for a wound debridement and is agreeable. Objective - Vital Signs/Intake and Output Vital Signs (last 24 hours): Temp Pulse Resp BP Pulse Ox 98.6 F 71 20 163/76 H 99 11/05/16 00:00 11/05/16 00:00 11/05/16 00:00 11/05/16 00:00 11/05/16 00:00 Intake and Output: 11/05/16 11/05/16 06:59 18:59 Intake Total 800 Output Total 650 Balance 150 - Medications Medications: Current Medications Amlodipine Besylate (Norvasc) 5 mg PO DAILY [facility] Last Admin: 11/05/16 09:25 Dose: 5 mg Diphenhydramine HCl (Benadryl) 25 mg PO Q6 PRN PRN Reason: Itching / Pruritus Last Admin: 11/05/16 05:58 Dose: 25 mg Piperacillin Sod/Tazobactam Sod (Zosyn 3.375 Gm Iv Premix) 3.375 gm in 50 mls @ 100 mls/hr IVPB Q8H [facility] Last Admin: 11/05/16 09:25 Dose: 100 mls/hr Insulin Aspart (Novolog) 0 unit SC ACHS [facility] PRN Reason: Protocol Last Admin: 11/05/16 08:55 Dose: Not Given Insulin Glargine (Lantus) 12 unit SC HS [facility] Last Admin: 11/04/16 21:48 Dose: 12 units Morphine Sulfate (Morphine) 2 mg IVP Q6H PRN PRN Reason: Pain, moderate (4-7) Last Admin: 11/05/16 06:01 Dose: 2 mg Ondansetron HCl (Zofran Inj) 4 mg IVP Q6H PRN PRN Reason: nausea and vomiting Last Admin: 11/03/16 08:45 Dose: 4 mg Sertraline HCl (Zoloft) 50 mg PO DAILY [facility] Last Admin: 11/05/16 09:25 Dose: 50 mg Sodium Hypochlorite (Dakins Solution 0.25%) 0 ml TOP DAILY [facility] Last Admin: 11/05/16 09:26 Dose: Not Given - Labs Labs: 11/05/16 07:10 11/05/16 07:10 PT 12.0 SECONDS (9.7-12.2) 11/02/16 13:55 INR 1.1 11/02/16 13:55 - Constitutional Appears: Well, Non-toxic, No Acute Distress - Extremities Exam Additional comments: left lower extremity focused exam: Vasc: DP and PT pulses non-palpable, Temp gradient warm to cool from proximal to distal. Capillary fill time is diminished. Mild to moderate non-pitting edema noted to L foot Derm: Ulceration noted to the lateral aspect of foot by the 5th metatarsal, measuring approximately 3 cm by 4 cm by 5 cm. No malodor noted. No purulence, no erythema, no undermining. Sanguineous drainage noted from the ulceration noted. 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 Coy lab, chart, vitals reviewed Left foot cleansed with normal sterile saline and dressed with 1/2 inch iodoform packing, xeroform, DSD, kerlix, RAFFY Left foot MRI impressions include: Prominent soft tissue ulceration seen at the lateral foot at the base of the 5th metatarsal bone extending into the volar soft tissues with prominent phlegmon and/or abscess collection measuring up to 5.9 x 1.9 centimeters. Continue IV abx per ID Patient to OR Wednesday11/06/16 afternoon (after 3:30 pm) for left foot debridement Patient to be NPO after 7 am breakfast tray on 11/06/16 medical optimization in chart Discussed with MADDIE Lopez anticoagulation to be held prior Podiatry will continue to follow
--- NOTE | 2016-11-05 12:43 | CP.PCM.PN ---
Subjective - Date & Time of Evaluation Date of Evaluation: 11/05/16 Time of Evaluation: 12:40 - Subjective Subjective: CONDITION SAME. FOR I AND D. TOMORROW LT FOOT INF. Objective - Vital Signs/Intake and Output Vital Signs (last 24 hours): Temp Pulse Resp BP Pulse Ox 98.6 F 71 20 163/76 H 99 11/05/16 00:00 11/05/16 00:00 11/05/16 00:00 11/05/16 00:00 11/05/16 00:00 Intake and Output: 11/05/16 11/05/16 06:59 18:59 Intake Total 800 Output Total 650 Balance 150 - Medications Medications: Current Medications Amlodipine Besylate (Norvasc) 5 mg PO DAILY [facility] Last Admin: 11/05/16 09:25 Dose: 5 mg Diphenhydramine HCl (Benadryl) 25 mg PO Q6 PRN PRN Reason: Itching / Pruritus Last Admin: 11/05/16 05:58 Dose: 25 mg Piperacillin Sod/Tazobactam Sod (Zosyn 3.375 Gm Iv Premix) 3.375 gm in 50 mls @ 100 mls/hr IVPB Q8H [facility] Last Admin: 11/05/16 09:25 Dose: 100 mls/hr Insulin Aspart (Novolog) 0 unit SC ACHS [facility] PRN Reason: Protocol Last Admin: 11/05/16 08:55 Dose: Not Given Insulin Glargine (Lantus) 12 unit SC HS [facility] Last Admin: 11/04/16 21:48 Dose: 12 units Morphine Sulfate (Morphine) 2 mg IVP Q6H PRN PRN Reason: Pain, moderate (4-7) Last Admin: 11/05/16 06:01 Dose: 2 mg Ondansetron HCl (Zofran Inj) 4 mg IVP Q6H PRN PRN Reason: nausea and vomiting Last Admin: 11/03/16 08:45 Dose: 4 mg Sertraline HCl (Zoloft) 50 mg PO DAILY [facility] Last Admin: 11/05/16 09:25 Dose: 50 mg Sodium Hypochlorite (Dakins Solution 0.25%) 0 ml TOP DAILY [facility] Last Admin: 11/05/16 09:26 Dose: Not Given - Labs Labs: 11/05/16 07:10 11/05/16 07:10 PT 12.0 SECONDS (9.7-12.2) 11/02/16 13:55 INR 1.1 11/02/16 13:55 - Constitutional Appears: No Acute Distress, Chronically Ill - Eye Exam Eye Exam: Normal appearance, PERRL - ENT Exam ENT Exam: Mucous Membranes Moist - Respiratory Exam Respiratory Exam: Clear to Ausculation Bilateral, NORMAL BREATHING PATTERN - Cardiovascular Exam Cardiovascular Exam: REGULAR RHYTHM, +S1, +S2 - GI/Abdominal Exam GI & Abdominal Exam: Soft, Normal Bowel Sounds - Back Exam Back Exam: NORMAL INSPECTION - Neurological Exam Neurological Exam: Alert, Awake, CN II-XII Intact, Normal Gait, Oriented x3 Assessment and Plan - Assessment and Plan (Free Text) Assessment: SAME. Plan: FOR I AND D. IV ABTS. PICC LINE.
[2016-11-05] MEDS: (Lantus) Insulin Glargine, Recombinant SC SCH (22:08)
[2016-11-06] MEDS: Piperacill/Tazo 3.375gm in Dex 3.375 GM/50 ML BAG IVPB SCH ×3 (01:11→18:57)
[2016-11-06] MEDS: (Novolog) Insulin Aspart, Recombinant 100 u/ml 10 ml vial SC SCH ×4 (08:00→22:35)
--- NOTE | 2016-11-06 09:09 | CP.PCM.PN ---
Subjective - Date & Time of Evaluation Date of Evaluation: 11/06/16 Time of Evaluation: 09:07 - Subjective Subjective: CONSENT (SIGNED BY ASSEMBLY MANAGER SAADIA AND PT ) IN CHART FROM 11/03/16 HOWEVER THERE IS NO WITNESS. NEW PICC LINE CONSENT SIGNED WITH PT AND PRIMARY RN STELLA. FINN PICC RN AT BEDSIDE FOR INSERTION NOW. RISKS AND BENEFITS OF PICC LINE INSERTION FOR IV ABX DISCUSSED AND PT VERBALIZES UNDERSTANDING. ALL CONCERNS AND QUESTIONS DISCUSSED. NO FURTHER ORDERS. Objective - Vital Signs/Intake and Output Vital Signs (last 24 hours): Temp Pulse Resp BP Pulse Ox 98 F 65 21 149/99 H 98 11/06/16 08:11 11/06/16 08:11 11/06/16 08:11 11/06/16 08:11 11/06/16 08:11 Intake and Output: 11/06/16 11/06/16 06:59 18:59 Intake Total 350 Output Total 1 Balance 349 - Medications Medications: Current Medications Amlodipine Besylate (Norvasc) 5 mg PO DAILY [facility] Last Admin: 11/05/16 09:25 Dose: 5 mg Diphenhydramine HCl (Benadryl) 25 mg PO Q6 PRN PRN Reason: Itching / Pruritus Last Admin: 11/06/16 07:06 Dose: 25 mg Piperacillin Sod/Tazobactam Sod (Zosyn 3.375 Gm Iv Premix) 3.375 gm in 50 mls @ 100 mls/hr IVPB Q8H [facility] Last Admin: 11/06/16 01:11 Dose: 100 mls/hr Insulin Aspart (Novolog) 0 unit SC ACHS [facility] PRN Reason: Protocol Last Admin: 11/05/16 22:09 Dose: Not Given Insulin Glargine (Lantus) 12 unit SC HS [facility] Last Admin: 11/05/16 22:08 Dose: Not Given Morphine Sulfate (Morphine) 2 mg IVP Q6H PRN PRN Reason: Pain, moderate (4-7) Last Admin: 11/06/16 07:11 Dose: 2 mg Ondansetron HCl (Zofran Inj) 4 mg IVP Q6H PRN PRN Reason: nausea and vomiting Last Admin: 11/03/16 08:45 Dose: 4 mg Sertraline HCl (Zoloft) 50 mg PO DAILY [facility] Last Admin: 11/05/16 09:25 Dose: 50 mg Sodium Hypochlorite (Dakins Solution 0.25%) 0 ml TOP DAILY [facility] Last Admin: 11/05/16 09:26 Dose: Not Given - Labs Labs: 11/05/16 07:10 11/05/16 07:10 PT 12.0 SECONDS (9.7-12.2) 11/02/16 13:55 INR 1.1 11/02/16 13:55
[2016-11-06] MEDS: Dakin's Topical 0.25%-Half Strength (480 ml) TOP SCH (11:00)
--- NOTE | 2016-11-06 11:10 | CP.PCM.PN ---
Subjective - Date & Time of Evaluation Date of Evaluation: 11/06/16 Time of Evaluation: 11:10 - Subjective Subjective: 36 year old transgender female patient was seen at bedside this morning regarding left foot ulcer. Patient NAD, AAOx3. Patient admits she has been NPO since 8:00 am. She is aware and agreeable for procedure today. She denies any n/v/f/c/sob/cp. Objective - Vital Signs/Intake and Output Vital Signs (last 24 hours): Temp Pulse Resp BP Pulse Ox 98 F 65 21 149/99 H 98 11/06/16 08:11 11/06/16 08:11 11/06/16 08:11 11/06/16 08:11 11/06/16 08:11 Intake and Output: 11/06/16 11/06/16 06:59 18:59 Intake Total 350 Output Total 1 Balance 349 - Medications Medications: Current Medications Amlodipine Besylate (Norvasc) 5 mg PO DAILY [facility] Last Admin: 11/05/16 09:25 Dose: 5 mg Diphenhydramine HCl (Benadryl) 25 mg PO Q6 PRN PRN Reason: Itching / Pruritus Last Admin: 11/06/16 07:06 Dose: 25 mg Piperacillin Sod/Tazobactam Sod (Zosyn 3.375 Gm Iv Premix) 3.375 gm in 50 mls @ 100 mls/hr IVPB Q8H [facility] Last Admin: 11/06/16 01:11 Dose: 100 mls/hr Insulin Aspart (Novolog) 0 unit SC [facility] PRN Reason: Protocol Last Admin: 11/06/16 08:00 Dose: Not Given Insulin Glargine (Lantus) 12 unit SC HS [facility] Last Admin: 11/05/16 22:08 Dose: Not Given Morphine Sulfate (Morphine) 2 mg IVP Q6H PRN PRN Reason: Pain, moderate (4-7) Last Admin: 11/06/16 07:11 Dose: 2 mg Ondansetron HCl (Zofran Inj) 4 mg IVP Q6H PRN PRN Reason: nausea and vomiting Last Admin: 11/03/16 08:45 Dose: 4 mg Sertraline HCl (Zoloft) 50 mg PO DAILY [facility] Last Admin: 11/05/16 09:25 Dose: 50 mg Sodium Hypochlorite (Dakins Solution 0.25%) 0 ml TOP DAILY [facility] Last Admin: 11/05/16 09:26 Dose: Not Given - Labs Labs: 11/05/16 07:10 11/05/16 07:10 PT 12.0 SECONDS (9.7-12.2) 11/02/16 13:55 INR 1.1 11/02/16 13:55 - Constitutional Appears: Well, Non-toxic, No Acute Distress - Extremities Exam Additional comments: dressing to left LE c/d/i - Neurological Exam Neurological Exam: Alert, Awake, Oriented x3 - Psychiatric Exam Psychiatric exam: Normal Affect, Normal Mood Assessment and Plan - Assessment and Plan (Free Text) Assessment: 36 y/o female 5 days s/p left foot I and D and left leg ulcerations secondary to diabetes Plan: Pt was seen and examined Pt NPO status was confirmed All Pre-op testing and clearance was in the chart Pt has exhausted all conservative treatment at this time and is opting for surgical intervention Pt was explained procedure and post-operative course All pt's questions were answered to satisfaction No guarantees were made Pt understands all risks, benefits and complications of procedure Pt to OR around 3:30 pm today for left foot debridement Pt will follow-up with Dr. Coy Podiatry will continue to follow patient while in house
--- NOTE | 2016-11-06 11:22 | RAD ---
HISTORY: Verify RIGHT PICC COMPARISON: 10/31/2016 FINDINGS: LUNGS: No active pulmonary disease. PLEURA: No significant pleural effusion identified, no pneumothorax apparent. CARDIOVASCULAR: Mild cardiomegaly. New right PICC catheter terminating in the region of the superior vena cava. OSSEOUS STRUCTURES: No significant abnormalities. VISUALIZED UPPER ABDOMEN: Normal. OTHER FINDINGS: None. IMPRESSION: New right PICC catheter terminating in the region of superior vena cava. Otherwise no change
[2016-11-06 13:43] LABS: HEMOGLOBIN 11.2 g/dL (11.0-16.0); MEAN CELL VOLUME 83.4 fL (81.0-99.0); MEAN CORPUSCULAR HEMOGLOBIN 27.9 pg (27.0-31.0); MEAN CORPUSCULAR HGB CONC 33.4 g/dL (33.0-37.0); MEAN PLATELET VOLUME 7.1 fL (7.2-11.7); RBC 4.01 Mil/uL (3.80-5.20); RED CELL DISTRIBUTION WIDTH 15.8 % (11.5-14.5); WHITE BLOOD COUNT 6.7 K/uL (4.8-10.8)
--- NOTE | 2016-11-06 13:44 | CP.PCM.PN ---
Subjective - Date & Time of Evaluation Date of Evaluation: 11/06/16 Time of Evaluation: 13:43 - Subjective Subjective: CONDITION SAME. ABSCESS LT FOOT. AFEBRILE. Objective - Vital Signs/Intake and Output Vital Signs (last 24 hours): Temp Pulse Resp BP Pulse Ox 98 F 65 21 149/99 H 98 11/06/16 08:11 11/06/16 08:11 11/06/16 08:11 11/06/16 08:11 11/06/16 08:11 Intake and Output: 11/06/16 11/06/16 06:59 18:59 Intake Total 350 Output Total 1 Balance 349 - Medications Medications: Current Medications Amlodipine Besylate (Norvasc) 5 mg PO DAILY [facility] Last Admin: 11/06/16 11:00 Dose: 5 mg Diphenhydramine HCl (Benadryl) 25 mg PO Q6 PRN PRN Reason: Itching / Pruritus Last Admin: 11/06/16 07:06 Dose: 25 mg Piperacillin Sod/Tazobactam Sod (Zosyn 3.375 Gm Iv Premix) 3.375 gm in 50 mls @ 100 mls/hr IVPB Q8H [facility] Last Admin: 11/06/16 11:00 Dose: 100 mls/hr Insulin Aspart (Novolog) 0 unit SC ACHS [facility] PRN Reason: Protocol Last Admin: 11/06/16 12:46 Dose: Not Given Insulin Glargine (Lantus) 12 unit SC HS [facility] Last Admin: 11/05/16 22:08 Dose: Not Given Morphine Sulfate (Morphine) 2 mg IVP Q6H PRN PRN Reason: Pain, moderate (4-7) Last Admin: 11/06/16 13:23 Dose: 2 mg Ondansetron HCl (Zofran Inj) 4 mg IVP Q6H PRN PRN Reason: nausea and vomiting Last Admin: 11/03/16 08:45 Dose: 4 mg Sertraline HCl (Zoloft) 50 mg PO DAILY [facility] Last Admin: 11/06/16 11:00 Dose: 50 mg Sodium Hypochlorite (Dakins Solution 0.25%) 0 ml TOP DAILY [facility] Last Admin: 11/06/16 11:00 Dose: Not Given - Labs Labs: 11/05/16 07:10 11/05/16 07:10 PT 12.0 SECONDS (9.7-12.2) 11/02/16 13:55 INR 1.1 11/02/16 13:55 - Constitutional Appears: No Acute Distress, Chronically Ill - Eye Exam Eye Exam: Normal appearance - ENT Exam ENT Exam: Mucous Membranes Moist - Neck Exam Neck Exam: Normal Inspection - Respiratory Exam Respiratory Exam: Clear to Ausculation Bilateral, NORMAL BREATHING PATTERN - Cardiovascular Exam Cardiovascular Exam: REGULAR RHYTHM, +S1, +S2 - GI/Abdominal Exam GI & Abdominal Exam: Soft, Normal Bowel Sounds - Back Exam Back Exam: NORMAL INSPECTION - Neurological Exam Neurological Exam: Alert, Awake, CN II-XII Intact, Normal Gait, Oriented x3 Assessment and Plan - Assessment and Plan (Free Text) Assessment: BEFORE. Plan: FOR OR TODAY.
[2016-11-06 13:58] LABS: CALCIUM 9.2 mg/dl (8.6-10.4)
[2016-11-06] MEDS ORDERED: Bupivacaine HCl 0.5% PF (10 ml) Inj ONE (15:46)
[2016-11-06] MEDS ORDERED: Lidocaine 1% Inj (20ml) ONE (15:46)
[2016-11-06] MEDS ORDERED: Propofol 10 mg/ml Inj (20 ML) ONE ×2 (16:36→17:00)
[2016-11-06] MEDS ORDERED: Midazolam 2 MG/2 ML VIAL ONE (16:36)
[2016-11-06] MEDS ORDERED: Lactated Ringer's 1,000 ML IV ONE (16:55)
[2016-11-06] MEDS ORDERED: HYDROmorphone 0.5 mg/0.5 ml ISec IVP PRN (17:42)
--- NOTE | 2016-11-06 17:50 | PCM.SURG1 ---
Surgeon's Initial Post Op Note - Surgeon's Notes Surgeon: Dr. Coy Milling Machine Set Up Operator: Dr. Lamine Lam PGY1, Dr. Miranda Frausto PGY2 Type of Anesthesia: IV Sedation, Local Anesthesia Administered By: Dr. Davis Pre-Operative Diagnosis: Ulceration with underlying abscess of left foot Operative Findings: None Post-Operative Diagnosis: Same Operation Performed: See dictation. I- 20 cc 1:1 lidocaine 1% plain, marcaine 0.5% plain. M- 1/4" iodoform packing Specimen/Specimens Removed: Bone left fifth metatarsal, soft tissue left foot Estimated Blood Loss: EBL {In ML}: 20 Drains Used: No Drains Post-Op Condition: Good Date of Surgery/Procedure: 11/06/16 Time of Surgery/Procedure: 17:50
--- NOTE | 2016-11-06 19:06 | CP.PCM.PN ---
Subjective - Date & Time of Evaluation Date of Evaluation: 11/06/16 Time of Evaluation: 08:00 - Subjective Subjective: await OR cultures cont iv rx for now Objective - Vital Signs/Intake and Output Vital Signs (last 24 hours): Temp Pulse Resp BP Pulse Ox 97.8 F 67 9 L 110/70 97 11/06/16 18:15 11/06/16 18:15 11/06/16 18:15 11/06/16 18:15 11/06/16 18:15 Intake and Output: 11/06/16 11/07/16 18:59 06:59 Intake Total 150 Balance 150 - Medications Medications: Current Medications Amlodipine Besylate (Norvasc) 5 mg PO DAILY [facility] Last Admin: 11/06/16 11:00 Dose: 5 mg Diphenhydramine HCl (Benadryl) 25 mg PO Q6 PRN PRN Reason: Itching / Pruritus Last Admin: 11/06/16 07:06 Dose: 25 mg Hydromorphone HCl (Dilaudid) 0.5 mg IVP Q10M PRN PRN Reason: Pain, moderate (4-7) Stop: 11/06/16 19:42 Piperacillin Sod/Tazobactam Sod (Zosyn 3.375 Gm Iv Premix) 3.375 gm in 50 mls @ 100 mls/hr IVPB Q8H [facility] Last Admin: 11/06/16 18:57 Dose: 100 mls/hr Daptomycin 860 mg/ Sodium (Chloride) 100 mls @ 100 mls/hr IV Q24H [facility] Last Admin: 11/06/16 15:04 Dose: 100 mls/hr Insulin Aspart (Novolog) 0 unit SC ACHS [facility] PRN Reason: Protocol Last Admin: 11/06/16 12:46 Dose: Not Given Insulin Glargine (Lantus) 12 unit SC HS [facility] Last Admin: 11/05/16 22:08 Dose: Not Given Morphine Sulfate (Morphine) 2 mg IVP Q6H PRN PRN Reason: Pain, moderate (4-7) Last Admin: 11/06/16 13:23 Dose: 2 mg Ondansetron HCl (Zofran Inj) 4 mg IVP Q6H PRN PRN Reason: nausea and vomiting Last Admin: 11/03/16 08:45 Dose: 4 mg Sertraline HCl (Zoloft) 50 mg PO DAILY [facility] Last Admin: 11/06/16 11:00 Dose: 50 mg Sodium Hypochlorite (Dakins Solution 0.25%) 0 ml TOP DAILY [facility] Last Admin: 11/06/16 11:00 Dose: Not Given - Labs Labs: 11/06/16 13:34 11/06/16 13:34 PT 12.0 SECONDS (9.7-12.2) 11/02/16 13:55 INR 1.1 11/02/16 13:55 - Constitutional Appears: Non-toxic, Chronically Ill - Head Exam Head Exam: NORMOCEPHALIC - Eye Exam Eye Exam: PERRL - ENT Exam ENT Exam: Mucous Membranes Dry, Normal External Ear Exam - Neck Exam Neck Exam: absent: Lymphadenopathy - Respiratory Exam Respiratory Exam: Decreased Breath Sounds - Cardiovascular Exam Cardiovascular Exam: REGULAR RHYTHM - GI/Abdominal Exam GI & Abdominal Exam: Distended, Soft Assessment and Plan (1) Diabetic foot infection Status: Acute (2) Ulcer of foot Status: Acute (3) GAEL (acute kidney injury) Status: Acute (4) Abscess and cellulitis Status: Acute (5) Dehydration Status: Acute (6) Morbid obesity with BMI of 40.0-44.9, adult Status: Acute (7) Depression Status: Chronic (8) HIV (human immunodeficiency virus infection) Status: Chronic
[2016-11-06] MEDS ORDERED: Vancomycin 1 gm/NS 200 ml 1 GM/200 ML BAG IVPB SCH (20:00)
[2016-11-06] MEDS: Morphine 4 MG/ML VIAL IVP PRN (20:38)
[2016-11-06] MEDS: (Lantus) Insulin Glargine, Recombinant SC SCH (22:16)
[2016-11-07] MEDS: Piperacill/Tazo 3.375gm in Dex 3.375 GM/50 ML BAG IVPB SCH ×3 (02:39→18:07)
[2016-11-07] MEDS: Morphine 4 MG/ML VIAL IVP PRN ×4 (02:43→23:58)
[2016-11-07 07:50] LABS: CALCIUM 8.4 mg/dl (8.6-10.4)
[2016-11-07] MEDS: (Novolog) Insulin Aspart, Recombinant 100 u/ml 10 ml vial SC SCH ×4 (07:59→22:23)
[2016-11-07 08:34] VITALS: RESP 20
[2016-11-07] MEDS: Dakin's Topical 0.25%-Half Strength (480 ml) TOP SCH (10:04)
--- NOTE | 2016-11-07 10:59 | CP.PCM.PN ---
Subjective - Date & Time of Evaluation Date of Evaluation: 11/07/16 Time of Evaluation: 10:56 - Subjective Subjective: CONDITION SAME. LT FOOT INF. CRF. DM. HIV. Objective - Vital Signs/Intake and Output Vital Signs (last 24 hours): Temp Pulse Resp BP Pulse Ox 98.1 F 87 20 161/98 H 98 11/07/16 08:00 11/07/16 08:00 11/07/16 08:00 11/07/16 08:00 11/07/16 08:00 Intake and Output: 11/07/16 11/07/16 06:59 18:59 Intake Total 1840 50 Output Total 800 300 Balance 1040 -250 - Medications Medications: Current Medications Amlodipine Besylate (Norvasc) 5 mg PO DAILY [facility] Last Admin: 11/07/16 09:55 Dose: 5 mg Diphenhydramine HCl (Benadryl) 25 mg PO Q6 PRN PRN Reason: Itching / Pruritus Last Admin: 11/07/16 09:55 Dose: 25 mg Piperacillin Sod/Tazobactam Sod (Zosyn 3.375 Gm Iv Premix) 3.375 gm in 50 mls @ 100 mls/hr IVPB Q8H [facility] Last Admin: 11/07/16 09:55 Dose: 100 mls/hr Vancomycin/Sodium Chloride (Vancocin) 1 gm in 200 mls @ 133 mls/hr IVPB Q72H [facility] Stop: 11/11/16 20:01 Last Admin: 11/06/16 20:34 Dose: 133 mls/hr Insulin Aspart (Novolog) 0 unit SC [facility] PRN Reason: Protocol Last Admin: 11/07/16 07:59 Dose: Not Given Insulin Glargine (Lantus) 12 unit SC HS [facility] Last Admin: 11/06/16 22:16 Dose: 12 units Morphine Sulfate (Morphine) 2 mg IVP Q6H PRN PRN Reason: Pain, moderate (4-7) Last Admin: 11/07/16 09:55 Dose: 2 mg Ondansetron HCl (Zofran Inj) 4 mg IVP Q6H PRN PRN Reason: nausea and vomiting Last Admin: 11/03/16 08:45 Dose: 4 mg Sertraline HCl (Zoloft) 50 mg PO DAILY [facility] Last Admin: 11/07/16 09:55 Dose: 50 mg Sodium Hypochlorite (Dakins Solution 0.25%) 0 ml TOP DAILY [facility] Last Admin: 11/07/16 10:04 Dose: Not Given Warfarin Sodium (Coumadin) 10 mg PO 1800 [facility] Stop: 11/07/16 18:01 - Labs Labs: 11/06/16 13:34 11/07/16 07:15 PT 12.0 SECONDS (9.7-12.2) 11/02/16 13:55 INR 1.1 11/02/16 13:55 - Constitutional Appears: No Acute Distress, Chronically Ill - Eye Exam Eye Exam: Normal appearance Pupil Exam: PERRL - ENT Exam ENT Exam: Mucous Membranes Moist - Neck Exam Neck Exam: Normal Inspection - Respiratory Exam Respiratory Exam: Clear to Ausculation Bilateral, NORMAL BREATHING PATTERN - Cardiovascular Exam Cardiovascular Exam: REGULAR RHYTHM, +S1, +S2 - GI/Abdominal Exam GI & Abdominal Exam: Soft, Normal Bowel Sounds - Back Exam Back Exam: NORMAL INSPECTION - Neurological Exam Neurological Exam: Alert, Awake, CN II-XII Intact, Normal Gait, Oriented x3 Assessment and Plan - Assessment and Plan (Free Text) Assessment: LT FOOT INF. Plan: FOR IV ANTIBIOTICS. COUMADIN FOR DVT.
--- NOTE | 2016-11-07 12:18 | CP.PCM.PN ---
Subjective - Date & Time of Evaluation Date of Evaluation: 11/07/16 Time of Evaluation: 12:16 - Subjective Subjective: 36 y/o transgender female with pmhx of Depression, Diabetes, Deep Vein Thrombosis, HIV, HTN, Peripheral Edema, Chronic Pain, seen at bedside in the ED for left foot/leg diabetic ulcerations. Patient is well known to Dr. Coy and has been admitted for the same condition many times in the past. Patient reports fever chills x 3 days and noticed pain in her foot. She states that she has not been able to keep her food down and therefore has not been taking any of her insulin. Patient denies any trauma to her feet. She denies any other pedal complaints at this time. 11/07 Notes reviewed Comfortable in bed No overnight events No pain Surgical menagement noted Tolerating diet No fever or chills reported No cp or palp, no sob or cough No n/v/d Discussed CKD with patient again Tolerating all medication Ros: 12 point ros negative unless described in hpi Objective - Vital Signs/Intake and Output Vital Signs (last 24 hours): Temp Pulse Resp BP Pulse Ox 98.1 F 87 20 161/98 H 98 11/07/16 08:00 11/07/16 08:00 11/07/16 08:00 11/07/16 08:00 11/07/16 08:00 Intake and Output: 11/07/16 11/07/16 06:59 18:59 Intake Total 1840 50 Output Total 800 300 Balance 1040 -250 - Medications Medications: Current Medications Amlodipine Besylate (Norvasc) 5 mg PO DAILY [facility] Last Admin: 11/07/16 09:55 Dose: 5 mg Diphenhydramine HCl (Benadryl) 25 mg PO Q6 PRN PRN Reason: Itching / Pruritus Last Admin: 11/07/16 09:55 Dose: 25 mg Piperacillin Sod/Tazobactam Sod (Zosyn 3.375 Gm Iv Premix) 3.375 gm in 50 mls @ 100 mls/hr IVPB Q8H [facility] Last Admin: 11/07/16 09:55 Dose: 100 mls/hr Vancomycin/Sodium Chloride (Vancocin) 1 gm in 200 mls @ 133 mls/hr IVPB Q72H [facility] Stop: 11/11/16 20:01 Last Admin: 11/06/16 20:34 Dose: 133 mls/hr Insulin Aspart (Novolog) 0 unit SC ACHS [facility] PRN Reason: Protocol Last Admin: 11/07/16 07:59 Dose: Not Given Insulin Glargine (Lantus) 12 unit SC HS [facility] Last Admin: 11/06/16 22:16 Dose: 12 units Morphine Sulfate (Morphine) 2 mg IVP Q6H PRN PRN Reason: Pain, moderate (4-7) Last Admin: 11/07/16 09:55 Dose: 2 mg Ondansetron HCl (Zofran Inj) 4 mg IVP Q6H PRN PRN Reason: nausea and vomiting Last Admin: 11/03/16 08:45 Dose: 4 mg Sertraline HCl (Zoloft) 50 mg PO DAILY [facility] Last Admin: 11/07/16 09:55 Dose: 50 mg Sodium Hypochlorite (Dakins Solution 0.25%) 0 ml TOP DAILY [facility] Last Admin: 11/07/16 10:04 Dose: Not Given Warfarin Sodium (Coumadin) 10 mg PO 1800 [facility] Stop: 11/07/16 18:01 - Labs Labs: 11/06/16 13:34 11/07/16 07:15 PT 12.0 SECONDS (9.7-12.2) 11/02/16 13:55 INR 1.1 11/02/16 13:55 - Constitutional Appears: Well, Non-toxic - Head Exam Head Exam: ATRAUMATIC, NORMOCEPHALIC - Eye Exam Eye Exam: EOMI, Normal appearance - ENT Exam ENT Exam: Mucous Membranes Moist, Normal Oropharynx - Respiratory Exam Respiratory Exam: NORMAL BREATHING PATTERN. absent: Rales, Rhonchi, Wheezes - Cardiovascular Exam Cardiovascular Exam: REGULAR RHYTHM, +S1, +S2 - GI/Abdominal Exam GI & Abdominal Exam: Soft, Normal Bowel Sounds - Extremities Exam Extremities Exam: absent: Joint Swelling, Pedal Edema - Neurological Exam Neurological Exam: Alert, Awake, Oriented x3 - Skin Skin Exam: Intact Additional comments: dressings in place Assessment and Plan (1) Diabetic foot infection Status: Acute (2) GAEL (acute kidney injury) Status: Acute (3) Hypertension Status: Acute - Assessment and Plan (Free Text) Assessment: Renal function improving slowly Stable ckd Electrolytes acceptable Bp labile Maintain current medications Wound care per surgery Complete abx
[2016-11-07 14:28] LABS: PROTHROMBIN TIME 11.6 SECONDS (9.7-12.2)
--- NOTE | 2016-11-07 15:07 | CP.PCM.PN ---
Subjective - Date & Time of Evaluation Date of Evaluation: 11/07/16 Time of Evaluation: 12:04 - Subjective Subjective: Patient is a 36 year old female who is 1 day s/p right foot wound debridement. Patient states that she is feeling well and denies any acute overnight events. Patient states that pain at surgical site is mild. Patient is AAOx3 and NAD. Patient denies any further pedal complaints at this time. Patient denies N/V/F/C /CP/SOB. Objective - Vital Signs/Intake and Output Vital Signs (last 24 hours): Temp Pulse Resp BP Pulse Ox 98.1 F 87 20 161/98 H 98 11/07/16 08:00 11/07/16 08:00 11/07/16 08:00 11/07/16 08:00 11/07/16 08:00 Intake and Output: 11/07/16 11/07/16 06:59 18:59 Intake Total 1840 50 Output Total 800 300 Balance 1040 -250 - Medications Medications: Current Medications Amlodipine Besylate (Norvasc) 5 mg PO DAILY [facility] Last Admin: 11/07/16 09:55 Dose: 5 mg Diphenhydramine HCl (Benadryl) 25 mg PO Q6 PRN PRN Reason: Itching / Pruritus Last Admin: 11/07/16 09:55 Dose: 25 mg Piperacillin Sod/Tazobactam Sod (Zosyn 3.375 Gm Iv Premix) 3.375 gm in 50 mls @ 100 mls/hr IVPB Q8H [facility] Last Admin: 11/07/16 09:55 Dose: 100 mls/hr Vancomycin/Sodium Chloride (Vancocin) 1 gm in 200 mls @ 133 mls/hr IVPB Q72H [facility] Stop: 11/11/16 20:01 Last Admin: 11/06/16 20:34 Dose: 133 mls/hr Insulin Aspart (Novolog) 0 unit SC ACHS [facility] PRN Reason: Protocol Last Admin: 11/07/16 12:35 Dose: Not Given Insulin Glargine (Lantus) 12 unit SC HS [facility] Last Admin: 11/06/16 22:16 Dose: 12 units Morphine Sulfate (Morphine) 2 mg IVP Q6H PRN PRN Reason: Pain, moderate (4-7) Last Admin: 11/07/16 09:55 Dose: 2 mg Ondansetron HCl (Zofran Inj) 4 mg IVP Q6H PRN PRN Reason: nausea and vomiting Last Admin: 11/03/16 08:45 Dose: 4 mg Sertraline HCl (Zoloft) 50 mg PO DAILY [facility] Last Admin: 11/07/16 09:55 Dose: 50 mg Sodium Hypochlorite (Dakins Solution 0.25%) 0 ml TOP DAILY [facility] Last Admin: 11/07/16 10:04 Dose: Not Given Warfarin Sodium (Coumadin) 10 mg PO 1800 [facility] Stop: 11/07/16 18:01 - Labs Labs: 11/06/16 13:34 11/07/16 07:15 PT 11.6 SECONDS (9.7-12.2) 11/07/16 14:11 INR 1.0 11/07/16 14:11 - Constitutional Appears: Well, Non-toxic, No Acute Distress - Extremities Exam Additional comments: left lower extremity focused exam: Vasc: DP and PT pulses non-palpable, Temp gradient warm to cool from proximal to distal. Capillary fill time is diminished. Mild to moderate non-pitting edema noted to L foot Derm: Ulceration noted to the lateral aspect of left foot by the 5th metatarsal , measuring approximately 3 cm by 4 cm by 5 cm. No malodor noted. No purulence, no erythema, no undermining. Packing noted within surgical site. 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 Coy Labs, charts and vitals reviewed Left foot wound dressed with xeroform, DSD, kirlix and RAFFY Patient to continue IV abx per ID Intraoperative wound and bone cx pending Patient clear to be D/C from podiatric stand point Podiatry will continue to monitor while in house
--- NOTE | 2016-11-07 15:21 | RAD ---
Left foot three views History: Status post left foot surgery. Comparison: 11/01/2016 Findings: Postsurgical changes with reticulation and bandaging seen at the lateral mid foot. Again identified is the 1st digit resected to the metatarsal head. Prominent bony destructive changes at the 2nd through 4th metatarsal heads with proliferative bone formation seen at that level. Bony destructive changes noted at the 2nd MTP as well as DIP joint spaces. Patchy increased sclerosis with productive change at the base of the 4th proximal phalanx. Resection of the 5th digit to the metatarsal base. Patchy sclerosis within the remnant 5th metatarsal base. Prominent air in the subcutaneous edema within the overlying subcutaneous soft tissues. Prominent soft tissue swelling throughout the mid and forefoot. Impression: Postsurgical changes as described above.
[2016-11-07] MEDS: (Lantus) Insulin Glargine, Recombinant SC SCH (22:24)
--- NOTE | 2016-11-07 23:42 | OP ---
PROCEDURE DATE: 11/06/2016 PREOPERATIVE DIAGNOSIS: Ulceration with underlying abscess of the left foot. POSTOPERATIVE DIAGNOSIS: Ulceration with underlying abscess of the left foot. PROCEDURE: Left foot wound and bone debridement. SURGEON: Kalpesh Coy DPM [employer] TECHNICIAN: Dr. Lamine Lam, PGY1 and Dr. Miranda rFausto, PGY2. TYPE OF ANESTHESIA: IV sedation with local. ANESTHESIA ADMINISTERED BY: Dr. Rooney. INDICATIONS: The patient is a 36-year-old female with the above diagnosis. The patient has exhausted all conservative treatment at this time and now requires surgical intervention. The patient signed the consent after careful explanation of risks, benefits, complications and alternatives for surgical procedure. No guarantees were given nor implied. NPO status was confirmed prior to taking the patient to the OR. PREPARATION: The patient was brought into the operating room and placed on the operating room table in a supine position. Timeout was performed for identification of the correct patient and procedure. After induction of IV sedation a local block consisting of 20 mL of 1:1 mixture of 1% Lidocaine plain and 0.5% Marcaine plain was administered to the soft tissue surrounding the patient's left foot ulceration. Left lower extremity was then prepped and draped in a normal sterile manner and procedure was begun. No Tourniquet was used during the procedure. DESCRIPTION OF PROCEDURE: Attention was then directed to the lateral aspect of the left mid foot where the ulcer was located. The ulcer measures approximately 5 cm x 3 cm x 0.4 cm with tunneling noted plantarly. Using Misonix curette handle on setting 7 the ulcer was excisionally debrided of all nonviable tissue until fresh and healthy bleeding, granular tissue appeared. No purulent drainage was expressed from the ulcer. Attention was then directed to the exposed bone within the ulceration. Using the Misonix bone rasp handle on setting 7 all visible, nonviable bone was debrided until only healthy viable bone remained. This area was then copiously irrigated with normal sterile saline utilizing a bulb syringe. Surgical site was then packed with 1/4 inch Iodosorb packing and dressed with Xeroform, 4x4 gauze, two ABDs, Kerlix and Coban. POSTOPERATIVE CONDITION: The patient tolerated the anesthesia and procedure well and was escorted to the recovery room with vital signs stable and neurovascular status intact to the left lower extremity. The patient is to be nonweightbearing to left lower extremity. The patient will continue to be followed while in-house. Lamine Lam DPM [facility]
[2016-11-08] MEDS: Piperacill/Tazo 3.375gm in Dex 3.375 GM/50 ML BAG IVPB SCH ×2 (02:06→10:27)
[2016-11-08] MEDS: Morphine 4 MG/ML VIAL IVP PRN ×3 (05:48→18:08)
[2016-11-08] MEDS: (Novolog) Insulin Aspart, Recombinant 100 u/ml 10 ml vial SC SCH ×4 (08:20→21:50)
[2016-11-08] MEDS: Dakin's Topical 0.25%-Half Strength (480 ml) TOP SCH (10:30)
--- NOTE | 2016-11-08 15:37 | CP.PCM.PN ---
Subjective - Date & Time of Evaluation Date of Evaluation: 11/08/16 Time of Evaluation: 09:00 - Subjective Subjective: afebrile rx in progress Objective - Vital Signs/Intake and Output Vital Signs (last 24 hours): Temp Pulse Resp BP Pulse Ox 97.7 F 70 20 138/86 100 11/08/16 08:00 11/08/16 08:00 11/08/16 08:00 11/08/16 08:00 11/08/16 08:00 - Medications Medications: Current Medications Amlodipine Besylate (Norvasc) 5 mg PO DAILY [facility] Last Admin: 11/08/16 10:26 Dose: 5 mg Diphenhydramine HCl (Benadryl) 25 mg PO Q6 PRN PRN Reason: Itching / Pruritus Last Admin: 11/08/16 12:04 Dose: 25 mg Piperacillin Sod/Tazobactam Sod (Zosyn 3.375 Gm Iv Premix) 3.375 gm in 50 mls @ 100 mls/hr IVPB Q8H [facility] Last Admin: 11/08/16 10:27 Dose: 100 mls/hr Vancomycin/Sodium Chloride (Vancocin) 1 gm in 200 mls @ 133 mls/hr IVPB Q72H [facility] Stop: 11/11/16 20:01 Last Admin: 11/06/16 20:34 Dose: 133 mls/hr Insulin Aspart (Novolog) 0 unit SC ACHS [facility] PRN Reason: Protocol Last Admin: 11/08/16 11:54 Dose: Not Given Insulin Glargine (Lantus) 12 unit SC HS [facility] Last Admin: 11/07/16 22:24 Dose: 12 units Morphine Sulfate (Morphine) 2 mg IVP Q6H PRN PRN Reason: Pain, moderate (4-7) Last Admin: 11/08/16 12:03 Dose: 2 mg Ondansetron HCl (Zofran Inj) 4 mg IVP Q6H PRN PRN Reason: nausea and vomiting Last Admin: 11/03/16 08:45 Dose: 4 mg Sertraline HCl (Zoloft) 50 mg PO DAILY [facility] Last Admin: 11/08/16 10:26 Dose: 50 mg Sodium Hypochlorite (Dakins Solution 0.25%) 0 ml TOP DAILY [facility] Last Admin: 11/08/16 10:30 Dose: Not Given - Labs Labs: 08/04/17 13:34 11/07/16 07:15 PT 11.6 SECONDS (9.7-12.2) 11/07/16 14:11 INR 1.0 11/07/16 14:11 - Constitutional Appears: Non-toxic, Chronically Ill - Head Exam Head Exam: NORMOCEPHALIC - Eye Exam Eye Exam: PERRL - ENT Exam ENT Exam: Mucous Membranes Dry - Neck Exam Neck Exam: absent: Lymphadenopathy, Thyromegaly - Respiratory Exam Respiratory Exam: Decreased Breath Sounds, Clear to Ausculation Bilateral - Cardiovascular Exam Cardiovascular Exam: REGULAR RHYTHM - GI/Abdominal Exam GI & Abdominal Exam: Distended - Rectal Exam Rectal Exam: Deferred - Exam Exam: NORMAL INSPECTION - Extremities Exam Extremities Exam: Pedal Edema Additional comments: left lower extremity focused exam: Vasc: DP and PT pulses non-palpable, Temp gradient warm to cool from proximal to distal. Capillary fill time is diminished. Mild to moderate non-pitting edema noted to L foot Derm: Ulceration noted to the lateral aspect of left foot by the 5th metatarsal , measuring approximately 3 cm by 4 cm by 5 cm. No malodor noted. No purulence, no erythema, no undermining. Packing noted within surgical site. 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 - Back Exam Back Exam: absent: CVA tenderness (L), CVA tenderness (R) - Neurological Exam Neurological Exam: Alert, Awake, Oriented x3 - Psychiatric Exam Psychiatric exam: Normal Mood - Skin Skin Exam: Dry Assessment and Plan (1) Diabetic foot infection Status: Acute (2) Ulcer of foot Status: Acute (3) GAEL (acute kidney injury) Status: Acute (4) Abscess and cellulitis Status: Acute (5) Dehydration Status: Acute (6) Morbid obesity with BMI of 40.0-44.9, adult Status: Acute (7) Depression Status: Chronic (8) HIV (human immunodeficiency virus infection) Status: Chronic - Assessment and Plan (Free Text) Assessment: for d/c on IV Vanco/ Cefepime once cleared by Dr Haven Nathan and Dr Coy rx for 6 weeks
--- NOTE | 2016-11-08 15:43 | CP.PCM.PN ---
Subjective - Date & Time of Evaluation Date of Evaluation: 11/08/16 Time of Evaluation: 12:00 - Subjective Subjective: CONDITION SAME. AFEBRILE. Objective - Vital Signs/Intake and Output Vital Signs (last 24 hours): Temp Pulse Resp BP Pulse Ox 97.7 F 70 20 138/86 100 11/08/16 08:00 11/08/16 08:00 11/08/16 08:00 11/08/16 08:00 11/08/16 08:00 - Medications Medications: Current Medications Amlodipine Besylate (Norvasc) 5 mg PO DAILY [facility] Last Admin: 11/08/16 10:26 Dose: 5 mg Diphenhydramine HCl (Benadryl) 25 mg PO Q6 PRN PRN Reason: Itching / Pruritus Last Admin: 11/08/16 12:04 Dose: 25 mg Vancomycin/Sodium Chloride (Vancocin) 1 gm in 200 mls @ 133 mls/hr IVPB Q72H [facility] Stop: 11/11/16 20:01 Last Admin: 11/06/16 20:34 Dose: 133 mls/hr Cefepime HCl 2 gm/ Sodium (Chloride) 50 mls @ 100 mls/hr IVPB Q24H [facility] Insulin Aspart (Novolog) 0 unit SC ACHS [facility] PRN Reason: Protocol Last Admin: 11/08/16 11:54 Dose: Not Given Insulin Glargine (Lantus) 12 unit SC HS [facility] Last Admin: 11/07/16 22:24 Dose: 12 units Morphine Sulfate (Morphine) 2 mg IVP Q6H PRN PRN Reason: Pain, moderate (4-7) Last Admin: 11/08/16 12:03 Dose: 2 mg Ondansetron HCl (Zofran Inj) 4 mg IVP Q6H PRN PRN Reason: nausea and vomiting Last Admin: 11/03/16 08:45 Dose: 4 mg Sertraline HCl (Zoloft) 50 mg PO DAILY [facility] Last Admin: 11/08/16 10:26 Dose: 50 mg Sodium Hypochlorite (Dakins Solution 0.25%) 0 ml TOP DAILY [facility] Last Admin: 11/08/16 10:30 Dose: Not Given - Labs Labs: 11/06/16 13:34 11/07/16 07:15 PT 11.6 SECONDS (9.7-12.2) 11/07/16 14:11 INR 1.0 11/07/16 14:11 - Constitutional Appears: Non-toxic, No Acute Distress, Chronically Ill - Eye Exam Eye Exam: Normal appearance, PERRL - ENT Exam ENT Exam: Mucous Membranes Moist - Respiratory Exam Respiratory Exam: Clear to Ausculation Bilateral, NORMAL BREATHING PATTERN - Cardiovascular Exam Cardiovascular Exam: REGULAR RHYTHM, +S1, +S2 - GI/Abdominal Exam GI & Abdominal Exam: Soft, Normal Bowel Sounds - Back Exam Back Exam: NORMAL INSPECTION - Neurological Exam Neurological Exam: Alert, Awake, CN II-XII Intact, Normal Gait, Oriented x3 - Psychiatric Exam Psychiatric exam: Normal Affect, Normal Mood
--- NOTE | 2016-11-08 15:48 | CP.PCM.PN ---
Subjective - Date & Time of Evaluation Date of Evaluation: 11/08/16 Time of Evaluation: 12:45 - Subjective Subjective: Patient is a 36 year old female who is 2 days s/p left foot wound debridement. Patient states that she is feeling well and denies any acute overnight events. Patient states that pain at surgical site is mild. Patient is AAOx3 and NAD. Patient denies any further pedal complaints at this time. Patient denies N/V/F/C /CP/SOB. Objective - Vital Signs/Intake and Output Vital Signs (last 24 hours): Temp Pulse Resp BP Pulse Ox 97.7 F 70 20 138/86 100 11/08/16 08:00 11/08/16 08:00 11/08/16 08:00 11/08/16 08:00 11/08/16 08:00 - Medications Medications: Current Medications Amlodipine Besylate (Norvasc) 5 mg PO DAILY [facility] Last Admin: 11/08/16 10:26 Dose: 5 mg Diphenhydramine HCl (Benadryl) 25 mg PO Q6 PRN PRN Reason: Itching / Pruritus Last Admin: 11/08/16 12:04 Dose: 25 mg Vancomycin/Sodium Chloride (Vancocin) 1 gm in 200 mls @ 133 mls/hr IVPB Q72H [facility] Stop: 11/11/16 20:01 Last Admin: 11/06/16 20:34 Dose: 133 mls/hr Cefepime HCl 2 gm/ Sodium (Chloride) 50 mls @ 100 mls/hr IVPB Q24H [facility] Insulin Aspart (Novolog) 0 unit SC ACHS [facility] PRN Reason: Protocol Last Admin: 11/08/16 11:54 Dose: Not Given Insulin Glargine (Lantus) 12 unit SC HS [facility] Last Admin: 11/07/16 22:24 Dose: 12 units Morphine Sulfate (Morphine) 2 mg IVP Q6H PRN PRN Reason: Pain, moderate (4-7) Last Admin: 11/08/16 12:03 Dose: 2 mg Ondansetron HCl (Zofran Inj) 4 mg IVP Q6H PRN PRN Reason: nausea and vomiting Last Admin: 11/03/16 08:45 Dose: 4 mg Sertraline HCl (Zoloft) 50 mg PO DAILY [facility] Last Admin: 11/08/16 10:26 Dose: 50 mg Sodium Hypochlorite (Dakins Solution 0.25%) 0 ml TOP DAILY [facility] Last Admin: 11/08/16 10:30 Dose: Not Given - Labs Labs: 11/06/16 13:34 11/07/16 07:15 PT 11.6 SECONDS (9.7-12.2) 11/07/16 14:11 INR 1.0 11/07/16 14:11 - Constitutional Appears: Well, Non-toxic, No Acute Distress - Extremities Exam Additional comments: left lower extremity focused exam: Vasc: DP and PT pulses non-palpable, Temp gradient warm to cool from proximal to distal. Capillary fill time is diminished. Mild to moderate non-pitting edema noted to L foot Derm: Ulceration noted to the lateral aspect of left foot by the 5th metatarsal , measuring approximately 2.8 cm by 3.7 cm by 4.5 cm. No malodor noted. No purulence, no erythema, no undermining. Packing noted within surgical site. 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 Coy Packing advanced from surgical site Left foot wound dressed with xeroform, DSD, kirlix and ARFFY Intraoperative wound and bone cx pending Patient to be DC home tomorrow on IV Vanco and Cefepime x [address] Del Valle Patient clear to be D/C from podiatric stand point Podiatry will continue to monitor while in house
[2016-11-08] MEDS ORDERED: Cefepime 2 GM in Sodium Chloride 0.9% 100 ML IVPB SCH (17:00)
[2016-11-08] MEDS: (Lantus) Insulin Glargine, Recombinant SC SCH (21:49)
[2016-11-09] MEDS: Morphine 4 MG/ML VIAL IVP PRN ×3 (00:01→11:46)
[2016-11-09] MEDS: (Novolog) Insulin Aspart, Recombinant 100 u/ml 10 ml vial SC SCH ×2 (08:34→11:44)
--- NOTE | 2016-11-09 11:19 | CP.PCM.PN ---
Subjective - Date & Time of Evaluation Date of Evaluation: 11/09/16 Time of Evaluation: 11:16 - Subjective Subjective: Wounds bandaged; no c/o pains from wound Urine study confirms nephrotic syndrome- over 14 gms proteinuria last creat 2.2 stable CKD HTN mod high Objective - Vital Signs/Intake and Output Vital Signs (last 24 hours): Temp Pulse Resp BP Pulse Ox 98.9 F 112 H 20 147/94 H 98 11/08/16 16:00 11/08/16 16:00 11/08/16 16:00 11/08/16 16:00 11/08/16 16:00 Intake and Output: 11/09/16 11/09/16 06:59 18:59 Intake Total 350 Output Total 700 Balance -350 - Medications Medications: Current Medications Amlodipine Besylate (Norvasc) 5 mg PO DAILY [facility] Last Admin: 11/08/16 10:26 Dose: 5 mg Diphenhydramine HCl (Benadryl) 25 mg PO Q6 PRN PRN Reason: Itching / Pruritus Last Admin: 11/09/16 06:09 Dose: 25 mg Vancomycin/Sodium Chloride (Vancocin) 1 gm in 200 mls @ 133 mls/hr IVPB Q72H [facility] Stop: 11/11/16 20:01 Last Admin: 11/06/16 20:34 Dose: 133 mls/hr Cefepime HCl 2 gm/ Sodium (Chloride) 100 mls @ 100 mls/hr IVPB Q24H [facility] Last Admin: 11/08/16 18:07 Dose: 100 mls/hr Insulin Aspart (Novolog) 0 unit SC ACHS [facility] PRN Reason: Protocol Last Admin: 11/09/16 08:34 Dose: Not Given Insulin Glargine (Lantus) 12 unit SC HS [facility] Last Admin: 11/08/16 21:49 Dose: 12 units Morphine Sulfate (Morphine) 2 mg IVP Q6H PRN PRN Reason: Pain, moderate (4-7) Last Admin: 11/09/16 06:09 Dose: 2 mg Ondansetron HCl (Zofran Inj) 4 mg IVP Q6H PRN PRN Reason: nausea and vomiting Last Admin: 11/03/16 08:45 Dose: 4 mg Sertraline HCl (Zoloft) 50 mg PO DAILY [facility] Last Admin: 11/08/16 10:26 Dose: 50 mg Sodium Hypochlorite (Dakins Solution 0.25%) 0 ml TOP DAILY [facility] Last Admin: 11/08/16 10:30 Dose: Not Given - Labs Labs: 11/06/16 13:34 11/07/16 07:15 PT 11.6 SECONDS (9.7-12.2) 11/07/16 14:11 INR 1.0 11/07/16 14:11 - Constitutional Appears: No Acute Distress, Chronically Ill - Head Exam Head Exam: ATRAUMATIC, NORMAL INSPECTION - Eye Exam Eye Exam: EOMI, Normal appearance - Neck Exam Neck Exam: Normal Inspection. absent: Tenderness - Respiratory Exam Respiratory Exam: Clear to Ausculation Bilateral, NORMAL BREATHING PATTERN - Cardiovascular Exam Cardiovascular Exam: REGULAR RHYTHM, +S1 - GI/Abdominal Exam GI & Abdominal Exam: Soft. absent: Tenderness - Extremities Exam Extremities Exam: Pedal Edema. absent: Tenderness - Neurological Exam Neurological Exam: Awake, CN II-XII Intact - Skin Skin Exam: Dry, Warm Assessment and Plan (1) Diabetic foot infection Status: Acute (2) GAEL (acute kidney injury) Status: Acute (3) HIV (human immunodeficiency virus infection) Status: Chronic (4) Type 2 diabetes mellitus with diabetic nephropathy Status: Acute (5) Nephrotic syndrome Status: Acute - Assessment and Plan (Free Text) Plan: Repeat chemistries If renal function stable- add small dose diuretics for HTN, edema control
[2016-11-09] MEDS: Dakin's Topical 0.25%-Half Strength (480 ml) TOP SCH (11:32)
--- NOTE | 2016-11-09 12:43 | CP.PCM.PN ---
Subjective - Date & Time of Evaluation Date of Evaluation: 11/09/16 Time of Evaluation: 12:40 - Subjective Subjective: CONDITION SAME. AFEBRILE. ID EVAL NOTED. FOR DISCHARGE HOME WITH IV ABTS VANCO AND CEFIPIME FOR 6 WKS. Objective - Vital Signs/Intake and Output Vital Signs (last 24 hours): Temp Pulse Resp BP Pulse Ox 98.9 F 112 H 20 147/94 H 98 11/08/16 16:00 11/08/16 16:00 11/08/16 16:00 11/08/16 16:00 11/08/16 16:00 Intake and Output: 11/09/16 11/09/16 06:59 18:59 Intake Total 350 Output Total 700 Balance -350 - Medications Medications: Current Medications Amlodipine Besylate (Norvasc) 5 mg PO DAILY [facility] Last Admin: 11/09/16 11:31 Dose: 5 mg Diphenhydramine HCl (Benadryl) 25 mg PO Q6 PRN PRN Reason: Itching / Pruritus Last Admin: 11/09/16 11:46 Dose: 25 mg Vancomycin/Sodium Chloride (Vancocin) 1 gm in 200 mls @ 133 mls/hr IVPB Q72H [facility] Stop: 11/11/16 20:01 Last Admin: 11/06/16 20:34 Dose: 133 mls/hr Cefepime HCl 2 gm/ Sodium (Chloride) 100 mls @ 100 mls/hr IVPB Q24H [facility] Last Admin: 11/08/16 18:07 Dose: 100 mls/hr Insulin Aspart (Novolog) 0 unit SC ACHS [facility] PRN Reason: Protocol Last Admin: 11/09/16 11:44 Dose: 2 unit Insulin Glargine (Lantus) 12 unit SC HS [facility] Last Admin: 11/08/16 21:49 Dose: 12 units Morphine Sulfate (Morphine) 2 mg IVP Q6H PRN PRN Reason: Pain, moderate (4-7) Last Admin: 11/09/16 11:46 Dose: 2 mg Ondansetron HCl (Zofran Inj) 4 mg IVP Q6H PRN PRN Reason: nausea and vomiting Last Admin: 11/03/16 08:45 Dose: 4 mg Sertraline HCl (Zoloft) 50 mg PO DAILY [facility] Last Admin: 11/09/16 11:31 Dose: 50 mg Sodium Hypochlorite (Dakins Solution 0.25%) 0 ml TOP DAILY [facility] Last Admin: 11/09/16 11:32 Dose: Not Given - Labs Labs: 11/06/16 13:34 11/07/16 07:15 PT 11.6 SECONDS (9.7-12.2) 11/07/16 14:11 INR 1.0 11/07/16 14:11 - Constitutional Appears: No Acute Distress, Chronically Ill - Eye Exam Eye Exam: Normal appearance - ENT Exam ENT Exam: Mucous Membranes Moist - Respiratory Exam Respiratory Exam: Clear to Ausculation Bilateral, NORMAL BREATHING PATTERN - Cardiovascular Exam Cardiovascular Exam: REGULAR RHYTHM, +S1, +S2 - GI/Abdominal Exam GI & Abdominal Exam: Soft, Normal Bowel Sounds - Extremities Exam Additional comments: LT FOOT ULCER IMPROVING. - Neurological Exam Neurological Exam: Alert, Awake, CN II-XII Intact, Normal Gait, Oriented x3 Assessment and Plan - Assessment and Plan (Free Text) Assessment: LT FOOT ULCER. HIV. DM. HTN. CRF. NEPHROTIC SYNDROME. Plan: FOR D/C HOME. IV ANTIBIOTICS FOR 6 WKS. COUMADIN MANOHAR DVT LT LEG. F/U DR. MCKEON AND DR. REYES.
[2016-11-09 13:30] LABS: CALCIUM 8.7 mg/dl (8.6-10.4)
--- NOTE | 2016-11-09 13:40 | CP.PCM.PN ---
Subjective - Date & Time of Evaluation Date of Evaluation: 11/09/16 Time of Evaluation: 13:40 - Subjective Subjective: PT SEEN BY DR. Haven ZEE AND CLEARED FOR D/C HOME TODAY. PER DR. ZEE GIVE RX FOR COUMADIN 5 MG PO QD WITH INR CHECK ON WEDNESDAY (11/16/16); TO [facility]. HAND HEEL SEAT FITTER DISCUSSED WITH DR. MCKEON REGARDING ABX DURATION; PT TO BE ON MAXIPIME 2 GM IV QD X6 WEEKS (11/09/16 UNTIL 12/21/16) AND VANCO 1 GM IV Q72 HRS X6 WEEKS (11/09/16 UNTIL 12/21/16). PER DR. MCKEON, ALSO HAVE [facility] DO WEEKLY BMP FOR RENAL FX AND VANCO TROUGH. HAND HEEL SEAT FITTER WROTE AND GAVE CM MIKIE P. RX FOR ALL LABS. PT TO BE D/C WITH PICC LINE. I DISCUSSED ALL D/C PLANS AND INFORMATION WITH PT AND PT VERBALIZES UNDERSTANDING. TO F/U WITH DR. MCKEON AND DR. REYES IN 1 WEEK. NO FURTHER ORDERS. Objective - Vital Signs/Intake and Output Vital Signs (last 24 hours): Temp Pulse Resp BP Pulse Ox 98.9 F 112 H 20 147/94 H 98 11/08/16 16:00 11/08/16 16:00 11/08/16 16:00 11/08/16 16:00 11/08/16 16:00 Intake and Output: 11/09/16 11/09/16 06:59 18:59 Intake Total 350 Output Total 700 Balance -350 - Medications Medications: Current Medications Amlodipine Besylate (Norvasc) 5 mg PO DAILY [facility] Last Admin: 11/09/16 11:31 Dose: 5 mg Diphenhydramine HCl (Benadryl) 25 mg PO Q6 PRN PRN Reason: Itching / Pruritus Last Admin: 11/09/16 11:46 Dose: 25 mg Vancomycin/Sodium Chloride (Vancocin) 1 gm in 200 mls @ 133 mls/hr IVPB Q72H [facility] Stop: 11/11/16 20:01 Last Admin: 11/06/16 20:34 Dose: 133 mls/hr Cefepime HCl 2 gm/ Sodium (Chloride) 100 mls @ 100 mls/hr IVPB Q24H [facility] Last Admin: 11/08/16 18:07 Dose: 100 mls/hr Insulin Aspart (Novolog) 0 unit SC ACHS [facility] PRN Reason: Protocol Last Admin: 11/09/16 11:44 Dose: 2 unit Insulin Glargine (Lantus) 12 unit SC HS [facility] Last Admin: 11/08/16 21:49 Dose: 12 units Morphine Sulfate (Morphine) 2 mg IVP Q6H PRN PRN Reason: Pain, moderate (4-7) Last Admin: 11/09/16 11:46 Dose: 2 mg Ondansetron HCl (Zofran Inj) 4 mg IVP Q6H PRN PRN Reason: nausea and vomiting Last Admin: 11/03/16 08:45 Dose: 4 mg Sertraline HCl (Zoloft) 50 mg PO DAILY [facility] Last Admin: 11/09/16 11:31 Dose: 50 mg Sodium Hypochlorite (Dakins Solution 0.25%) 0 ml TOP DAILY [facility] Last Admin: 11/09/16 11:32 Dose: Not Given - Labs Labs: 11/06/16 13:34 11/09/16 13:08 PT 11.6 SECONDS (9.7-12.2) 11/07/16 14:11 INR 1.0 11/07/16 14:11
--- NOTE | 2016-11-09 14:25 | CP.PCM.PN ---
Subjective - Date & Time of Evaluation Date of Evaluation: 11/09/16 Time of Evaluation: 14:22 - Subjective Subjective: 36 year old transgender female was seen at bedside 3 days s/p left foot wound debridement. Patient states that she is feeling well and denies any acute overnight events. Patient is AAOx3 and NAD. Patient denies any further pedal complaints at this time. Patient states that she is going home today. Patient denies N/V/F/C/CP/SOB. Objective - Vital Signs/Intake and Output Vital Signs (last 24 hours): Temp Pulse Resp BP Pulse Ox 98.9 F 112 H 20 147/94 H 98 11/08/16 16:00 11/08/16 16:00 11/08/16 16:00 11/08/16 16:00 11/08/16 16:00 Intake and Output: 11/09/16 11/09/16 06:59 18:59 Intake Total 350 480 Output Total 700 400 Balance -350 80 - Medications Medications: Current Medications Amlodipine Besylate (Norvasc) 5 mg PO DAILY [facility] Last Admin: 11/09/16 11:31 Dose: 5 mg Diphenhydramine HCl (Benadryl) 25 mg PO Q6 PRN PRN Reason: Itching / Pruritus Last Admin: 11/09/16 11:46 Dose: 25 mg Vancomycin/Sodium Chloride (Vancocin) 1 gm in 200 mls @ 133 mls/hr IVPB Q72H [facility] Stop: 11/11/16 20:01 Last Admin: 11/06/16 20:34 Dose: 133 mls/hr Cefepime HCl 2 gm/ Sodium (Chloride) 100 mls @ 100 mls/hr IVPB Q24H [facility] Last Admin: 11/08/16 18:07 Dose: 100 mls/hr Insulin Aspart (Novolog) 0 unit SC ACHS [facility] PRN Reason: Protocol Last Admin: 11/09/16 11:44 Dose: 2 unit Insulin Glargine (Lantus) 12 unit SC HS [facility] Last Admin: 11/08/16 21:49 Dose: 12 units Morphine Sulfate (Morphine) 2 mg IVP Q6H PRN PRN Reason: Pain, moderate (4-7) Last Admin: 11/09/16 11:46 Dose: 2 mg Ondansetron HCl (Zofran Inj) 4 mg IVP Q6H PRN PRN Reason: nausea and vomiting Last Admin: 11/03/16 08:45 Dose: 4 mg Sertraline HCl (Zoloft) 50 mg PO DAILY [facility] Last Admin: 11/09/16 11:31 Dose: 50 mg Sodium Hypochlorite (Dakins Solution 0.25%) 0 ml TOP DAILY [facility] Last Admin: 11/09/16 11:32 Dose: Not Given - Labs Labs: 11/06/16 13:34 11/09/16 13:08 PT 11.6 SECONDS (9.7-12.2) 11/07/16 14:11 INR 1.0 11/07/16 14:11 - Constitutional Appears: Well, Non-toxic, No Acute Distress - Extremities Exam Additional comments: left lower extremity focused exam: Vasc: DP and PT pulses non-palpable, Temp gradient warm to cool from proximal to distal. Capillary fill time is diminished. Mild to moderate non-pitting edema noted to L foot Derm: Ulceration noted to the lateral aspect of left foot by the 5th metatarsal , measuring approximately 2.8 cm by 3.7 cm by 4.5 cm. No malodor noted. No purulence, no erythema, no undermining. Packing noted within surgical site. 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 Coy lab, chart, vitals reviewed left foot surgical site cleansed with normal sterile saline Left foot wound dressed with 1/2 inch packing, xeroform, DSD, kerlix and RAFFY Patient to be DC home today on IV Vanco and Cefepime x [address] Del Valle Surgical shoe ordered and to be warn at all times while ambulating Patient to follow up with Dr. Coy on Wednesday in the [facility] Patient clear to be D/C from podiatry stand point Podiatry will continue to monitor while in house
[2016-11-09 16:37] VITALS: BP 142/105; PULSE 92; TEMP 98.4; O2SAT 99
== END 2016-11-09 17:30 | disposition home or self-care (01) | DRG 264 ==
LOC: C.ER 14:24 → C.9E 17:11 → C.5T 19:23 → C.9E 20:09 → C.3T 21:00
PROVIDERS: ADMIT Internal Medicine; ATTEND Internal Medicine
PROC: 0HBNXZZ Excision of Left Foot Skin, External Approach (ICD-10-PCS; 2016-11-01)
PROC: 0QBP0ZZ Excision of Left Metatarsal, Open Approach (ICD-10-PCS; 2016-11-06)
PROC: 02HV33Z Insertion of Infusion Device into Superior Vena Cava, Percutaneous Approach (ICD-10-PCS; principal; 2016-11-06 17:15)
DX: E11.51 Type 2 diabetes mellitus with diabetic peripheral angiopathy without gangrene (principal); N17.9 Acute kidney failure, unspecified; B20 Human immunodeficiency virus [HIV] disease; L03.116 Cellulitis of left lower limb; Z68.41 Body mass index [BMI] 40.0-44.9, adult; E11.21 Type 2 diabetes mellitus with diabetic nephropathy; L02.612 Cutaneous abscess of left foot; E11.22 Type 2 diabetes mellitus with diabetic chronic kidney disease; E11.621 Type 2 diabetes mellitus with foot ulcer; E66.01 Morbid (severe) obesity due to excess calories; L97.529 Non-pressure chronic ulcer of other part of left foot with unspecified severity; F32.9 Major depressive disorder, single episode, unspecified; Z21 Asymptomatic human immunodeficiency virus [HIV] infection status; L98.499 Non-pressure chronic ulcer of skin of other sites with unspecified severity; Z79.4 Long term (current) use of insulin; I87.2 Venous insufficiency (chronic) (peripheral); Z86.718 Personal history of other venous thrombosis and embolism; Z79.01 Long term (current) use of anticoagulants; I12.9 Hypertensive chronic kidney disease with stage 1 through stage 4 chronic kidney disease, or unspecified chronic kidney disease; N18.9 Chronic kidney disease, unspecified; F17.210 Nicotine dependence, cigarettes, uncomplicated; Z89.422 Acquired absence of other left toe(s); E11.628 Type 2 diabetes mellitus with other skin complications; E86.0 Dehydration; E11.65 Type 2 diabetes mellitus with hyperglycemia

== ENCOUNTER 2017-03-01 14:07 | Emergency (ER) | payer MEDICARE ==
[2017-03-01 14:07] VITALS: BMI 37.1
[2017-03-01 14:47] VITALS: BP 156/96; PULSE 118; RESP 18; TEMP 98.4; O2SAT 97
--- NOTE | 2017-03-01 15:58 | C.PDOC ---
History Of Present Illness 35 year old patient, with a past medical history of IDDM,HTN, DVT, HIV, and peripheral edema, presents to the ED complaining of multiple episodes of persistent watery diarrhea associated with intermittent vomiting 2-3 times daily for the past 3 week. Patient denies fever, chills, change in appetite, CP , SOB, dyspnea, diaphoresis, abdominal pain, hematemesis, melena, hematoschezia , denies dysuria/hematuria. She admits to being non-compliant with HAART and is unsure of her CD4 count or viral load. While interview patient, pt eating skittles, drinking water. FYI: Pt was seen in ED multiple times due to same complaints. After my initial evaluation, was told by RN, pt became agitated , aggressive, yelling at multiple ED staff, " Im going to administration to complaint. I am regular here". Time Seen by Provider: 03/01/17 15:27 Chief Complaint (Nursing): GI Problem History Per: Patient Past Medical History Reviewed: Historical Data, Nursing Documentation, Vital Signs Vital Signs: Last Vital Signs Temp 98.4 F 03/01/17 14:44 Pulse 118 H 03/01/17 14:44 Resp 18 03/01/17 14:44 BP 156/96 H 03/01/17 14:44 Pulse Ox 97 03/01/17 17:05 - Medical History PMH: Depression, Diabetes, Deep Vein Thrombosis, HIV, HTN, Peripheral Edema, Chronic Pain Denies: Chronic Kidney Disease Other PMH: Obesity Surgical History: - [facility] Procedures ANAL FISTULOTOMY (03/15/13) CENTRAL VENOUS CATHETER PLACEMENT WITH GUIDANCE (08/24/13) DEBRIDEMENT OF NAIL, NAIL BED OR NAIL FOLD (07/09/14) DETACHMENT AT LEFT 1ST TOE, COMPLETE, OPEN APPROACH (02/12/16) DETACHMENT AT LEFT 3RD TOE, COMPLETE, OPEN APPROACH (03/20/15) DETACHMENT AT LEFT 4TH TOE, COMPLETE, OPEN APPROACH (03/20/15) DETACHMENT AT LEFT FOOT, PARTIAL 3RD RAY, OPEN APPROACH (10/23/15) DETACHMENT AT LEFT FOOT, PARTIAL 4TH RAY, OPEN APPROACH (10/23/15) DRAINAGE OF BUTTOCK SUBCU/FASCIA, OPEN APPROACH (05/16/15) DRAINAGE OF LEFT FOOT, OPEN APPROACH (06/11/15) ELECTROCOAG RECT LES NEC (03/15/13) EXCIS DEBRIDE OF WOUND, INFECT, OR BURN (08/28/14) EXCISION OF L FOOT SUBCU/FASCIA, OPEN APPROACH (10/23/15) EXCISION OF LEFT FOOT SKIN, EXTERNAL APPROACH (10/29/16) EXCISION OF LEFT METATARSAL, OPEN APPROACH (10/29/16) EXCISION OF LEFT TOE PHALANX, OPEN APPROACH (02/12/16) EXCISION OF TOE NAIL, EXTERNAL APPROACH (02/12/16) INJECT ANTIBIOTIC (02/08/14) INJECT STEROID (02/09/12) INJECTION INTO JOINT (02/09/12) INSERTION OF INFUSION DEV INTO L SUBCLAV VEIN, PERC APPROACH (10/23/15) INSERTION OF INFUSION DEV INTO SUP VENA CAVA, PERC APPROACH (10/29/16) LOC EXC LES METATAR/TAR (12/09/13) OTH LOCAL EXC OR DEST OF LESION OR TISSUE OF ANUS (03/15/13) OTHER SKIN & SUBQ I D (10/24/14) PART OSTECT-METATAR/TAR (07/09/14) VASCULAR CATH IRRIGATION (01/10/14) VENOUS CATHETERIZATION NEC (01/18/14) Family History: States: [place], CAD, Diabetes, Hypertension - Social History Hx Tobacco Use: No Hx Alcohol Use: Yes Hx Substance Use: No - Immunization History Hx Tetanus Toxoid Vaccination: Yes Hx Influenza Vaccination: No Hx Pneumococcal Vaccination: Yes Review Of Systems Except As Marked, All Systems Reviewed And Found Negative. Constitutional: Negative for: Fever, Chills Eyes: Negative for: Vision Change ENT: Negative for: Throat Pain Cardiovascular: Negative for: Chest Pain, Palpitations Respiratory: Negative for: Cough, Shortness of Breath, Wheezing Gastrointestinal: Positive for: Vomiting, Diarrhea. Negative for: Abdominal Pain, Melena, Hematochezia, Hematemesis Genitourinary: Negative for: Dysuria, Frequency Musculoskeletal: Negative for: Neck Pain, Back Pain Skin: Negative for: Rash Neurological: Negative for: Weakness, Numbness, Altered Mental Status Physical Exam - Physical Exam Appears: Well, No Acute Distress Skin: Normal Color, Warm, Dry, No Rash Head: Normacephalic Eye(s): bilateral: PERRL Ear(s): Bilateral: Normal Nose: No Flaring, No Discharge Oral Mucosa: Moist, No Drooling Throat: No Drooling Neck: Supple Cardiovascular: Rhythm Regular Respiratory: No Decreased Breath Sounds, No Accessory Muscle Use, No Stridor, No Wheezing Gastrointestinal/Abdominal: Soft, No Tenderness, No Distention, No Guarding, No Rebound Back: No CVA Tenderness Extremity: No Calf Tenderness Neurological/Psych: Oriented x3, Normal Speech ED Course And Treatment O2 Sat by Pulse Oximetry: 97 Progress Note: I tried to talk to patient and explain the process in ED, slight delay in care due to volume. Pt became moew agressive, calling people names " asshole". Pt eloped ED prior complete medical evaluation and treatment. Disposition - Disposition Disposition: ELOPEMENT - ER ONLY Disposition Time: 15:45 Condition: GOOD Forms: [facility] (Haitian) - Clinical Impression Clinical Impression: Vomiting, Diarrhea
[2017-03-01] MEDS ORDERED: Sodium Chloride 0.9% 1,000 ML IV ONE (15:59)
== END 2017-03-01 15:45 | disposition left against medical advice (07) ==
LOC: C.ER 14:07
DX: R19.7 Diarrhea, unspecified (principal); R11.10 Vomiting, unspecified

== ENCOUNTER 2017-06-02 18:19 | Inpatient (IN) | payer MEDICARE ==
[2017-06-02 18:20] VITALS: BMI 41.8
--- NOTE | 2017-06-02 19:31 | C.PDOC ---
History Of Present Illness 36 y/o female, with history of diabetes, presents to the ER for evaluation of left foot pain. Patient states that the pain is constant. Patient reports that her osteomylitis is not controlled. Patient denies having fever and chills. Of note,patient states that he has been sent by Dr. Del Valle to the ER who would like for him to be admitted under Dr. Haven Nathan. Time Seen by Provider: 06/02/17 19:30 Chief Complaint (Nursing): Lower Extremity Problem/Injury History Per: Patient History/Exam Limitations: no limitations Onset/Duration Of Symptoms: Hrs Current Symptoms Are (Timing): Still Present Severity: Moderate Pain Scale Rating Of: 4 Recent travel outside of the [place]: No Additional History Per: Patient - Ankle/Foot Description Of Injury: Other (ulceration) Past Medical History Reviewed: Historical Data, Nursing Documentation, Vital Signs Vital Signs: Last Vital Signs Temp 98.4 F 06/02/17 18:56 Pulse 98 H 06/02/17 18:56 Resp 16 06/02/17 18:56 BP 165/113 H 06/02/17 18:56 Pulse Ox 100 06/02/17 20:16 - Medical History PMH: Depression, Diabetes, Deep Vein Thrombosis, HIV, HTN, Peripheral Edema, Chronic Pain Denies: Chronic Kidney Disease Surgical History: Other Surgeries: Hx of surgeries - [facility] Procedures ANAL FISTULOTOMY (03/15/13) CENTRAL VENOUS CATHETER PLACEMENT WITH GUIDANCE (08/24/13) DEBRIDEMENT OF NAIL, NAIL BED OR NAIL FOLD (07/09/14) DETACHMENT AT LEFT 1ST TOE, COMPLETE, OPEN APPROACH (02/12/16) DETACHMENT AT LEFT 3RD TOE, COMPLETE, OPEN APPROACH (03/20/15) DETACHMENT AT LEFT 4TH TOE, COMPLETE, OPEN APPROACH (03/20/15) DETACHMENT AT LEFT FOOT, PARTIAL 3RD RAY, OPEN APPROACH (10/23/15) DETACHMENT AT LEFT FOOT, PARTIAL 4TH RAY, OPEN APPROACH (10/23/15) DRAINAGE OF BUTTOCK SUBCU/FASCIA, OPEN APPROACH (05/16/15) DRAINAGE OF LEFT FOOT, OPEN APPROACH (06/11/15) ELECTROCOAG RECT LES NEC (03/15/13) EXCIS DEBRIDE OF WOUND, INFECT, OR BURN (08/28/14) EXCISION OF L FOOT SUBCU/FASCIA, OPEN APPROACH (10/23/15) EXCISION OF LEFT FOOT SKIN, EXTERNAL APPROACH (10/29/16) EXCISION OF LEFT METATARSAL, OPEN APPROACH (10/29/16) EXCISION OF LEFT TOE PHALANX, OPEN APPROACH (02/12/16) EXCISION OF TOE NAIL, EXTERNAL APPROACH (02/12/16) INJECT ANTIBIOTIC (02/08/14) INJECT STEROID (02/09/12) INJECTION INTO JOINT (02/09/12) INSERTION OF INFUSION DEV INTO L SUBCLAV VEIN, PERC APPROACH (10/23/15) INSERTION OF INFUSION DEV INTO SUP VENA CAVA, PERC APPROACH (10/29/16) LOC EXC LES METATAR/TAR (12/09/13) OTH LOCAL EXC OR DEST OF LESION OR TISSUE OF ANUS (03/15/13) OTHER SKIN & SUBQ I D (10/24/14) PART OSTECT-METATAR/TAR (07/09/14) VASCULAR CATH IRRIGATION (01/10/14) VENOUS CATHETERIZATION NEC (01/18/14) Family History: States: [place], CAD, Diabetes, Hypertension - Social History Hx Tobacco Use: No Hx Alcohol Use: Yes Hx Substance Use: No - Immunization History Hx Tetanus Toxoid Vaccination: Yes Hx Influenza Vaccination: No Hx Pneumococcal Vaccination: Yes Review Of Systems Constitutional: Negative for: Fever, Chills Cardiovascular: Negative for: Chest Pain Respiratory: Negative for: Shortness of Breath Gastrointestinal: Negative for: Nausea, Vomiting, Abdominal Pain Musculoskeletal: Positive for: Foot Pain (left foot pain) Skin: Positive for: Lesions Neurological: Negative for: Weakness Psych: Negative for: Anxiety Physical Exam - Physical Exam Appears: Non-toxic, No Acute Distress Skin: Warm Head: Normacephalic Eye(s): bilateral: Normal Inspection Neck: Supple Chest: Symmetrical Cardiovascular: Rhythm Regular Respiratory: No Decreased Breath Sounds, No Accessory Muscle Use, No Rales, No Rhonchi, No Wheezing Gastrointestinal/Abdominal: Soft, No Tenderness, Other (obese) Back: Normal Inspection Extremity: Other (patient does not want left foot to be unwrapped because she is afraid of developing a greater infection) Pulses: Right Dorsalis Pedis: Normal Neurological/Psych: Oriented x3, Normal Speech, Normal Motor, Normal Sensation Gait: Steady ED Course And Treatment - Laboratory Results Result Diagrams: 06/02/17 19:48 06/02/17 19:48 O2 Sat by Pulse Oximetry: 100 (RA) Pulse Ox Interpretation: Normal Progress Note: Labs and UA ordered. Disposition Discussed With Dr.: Art Nathan Comment: accepted the pt on his service and took over the care at 9 PM Doctor Will See Patient In The: Hospital Counseled Patient/Family Regarding: Studies Performed, Diagnosis - Disposition Disposition: HOSPITALIZED Disposition Time: 19:31 Condition: FAIR Forms: [facility] (Korean) - POA Present On Arrival: Poor Glycemic Control - Clinical Impression Clinical Impression: Chronic ulcer of left leg, Uncontrolled diabetes mellitus, Osteomyelitis of ankle or foot, acute, Diabetic foot infection - Scribe Statement The provider has reviewed the documentation as recorded by the Hughibe Mary Grace Unger Provider Attestation: All medical record entries made by the Scribe were at my direction and personally dictated by me. I have reviewed the chart and agree that the record accurately reflects my personal performance of the history, physical exam, medical decision making, and the department course for this patient. I have also personally directed, reviewed, and agree with the discharge instructions and disposition. Decision To Admit - Pt Status Changed To: Hospital Disposition Of: Inpatient - Admit Certification Admit to Inpatient:: After my assessment, the patient will require hospitalization for at least two midnights. This is because of the severity of symptoms shown, intensity of services needed, and/or the medical risk in this patient being treated as an outpatient. - InPatient: Physician Admission Certification: I certify that this patient requires 2 or more midnights of care for the following reason:: After my assessment, the patient will require hospitalization for at least two midnights. This is because of the severity of symptoms shown, intensity of services needed, and/or the medical risk in this patient being treated as an outpatient. - . Bed Request Type: Regular Admitting Physician: Art Nathan Patient Diagnosis: Chronic ulcer of left leg, Uncontrolled diabetes mellitus, Osteomyelitis of ankle or foot, acute, Diabetic foot infection
[2017-06-02 19:53] LABS: BASO # 0.1 K/uL (0.0-0.2); BASO % 1.1 % (0.0-2.0); EOS # 0.2 K/uL (0.0-0.7); EOS % 3.5 % (0.0-4.0); HEMOGLOBIN 11.9 g/dL (11.0-16.0); LYMPH # 2.3 K/uL (1.0-4.3); LYMPH % 32.5 % (20.0-40.0); MEAN CELL VOLUME 87.7 fL (81.0-99.0); MEAN PLATELET VOLUME 7.5 fL (7.2-11.7); MONO # 0.6 K/uL (0.0-0.8); MONO % 8.4 % (0.0-10.0); NEUT # 3.9 K/uL (1.8-7.0); NEUT % 54.5 % (50.0-75.0); NRBC % 0.1 % (0.0-2.0); RBC 4.11 Mil/uL (3.80-5.20); RED CELL DISTRIBUTION WIDTH 15.5 % (11.5-14.5); WHITE BLOOD COUNT 7.1 K/uL (4.8-10.8)
[2017-06-02 20:01] LABS: PROTHROMBIN TIME 11.3 SECONDS (9.7-12.2)
[2017-06-02 20:04] LABS: VENOUS BLOOD GAS BASE EXCESS -4.3 mmol/L (0.0-2.0); VENOUS BLOOD GAS PCO2 52 mmHg (40-60); VENOUS BLOOD GAS PO2 18 mm/Hg (30-55); VENOUS BLOOD PH 7.26 (7.32-7.43)
[2017-06-02 20:05] LABS: ALB/GLOB RATIO 0.7 (1.0-2.1); ALBUMIN 3.5 g/dL (3.5-5.0); CALCIUM 8.8 mg/dl (8.6-10.4)
--- NOTE | 2017-06-02 21:27 | CP.PCM.CON ---
History of Present Illness - History of Present Illness History of Present Illness: Podiatry Consult note for Dr. Coy 36 year old female with PMHx including DM, DVT, HIV, HTN was seen in the ED for complaint of left foot pain. Patient is well known to Dr. Coy. She states that she is having fevers but denies any n/v/c/sob/cp. Patient states that she does not want her dressing removed at this time as she is not in a private room but agrees that in the morning she will have the dressing taken off and her foot examined. She states that she feels the infection coming on, and admits to pain in her foot. Past Patient History - Infectious Disease Hx of Infectious Diseases: None - Past Medical History & Family History Past Medical History?: Yes - Past Social History Smoking Status: Light Smoker < 10 Cigarettes Daily - CARDIAC Hx Hypertension: Yes Hx Peripheral Edema: Yes - PULMONARY Hx Respiratory Disorders: No - NEUROLOGICAL Hx Neurological Disorder: No - HEENT Hx HEENT Problems: No - RENAL Hx Chronic Kidney Disease: No - HEMATOLOGICAL/ONCOLOGICAL Hx Human Immunodeficiency Virus (HIV): Yes - INTEGUMENTARY Hx Dermatological Problems: Yes Other/Comment: ULCER BOTTOM LEFT FOOT LEFT FOOT SUTURE LINES TOES - MUSCULOSKELETAL/RHEUMATOLOGICAL Hx Musculoskeletal Disorders: Yes Hx Falls: No Hx Osteomyelitis: Yes (LEFT FOOT, receiving daily infusion) - GASTROINTESTINAL Hx Gastrointestinal Disorders: No - GENITOURINARY/GYNECOLOGICAL Hx Genitourinary Disorders: No - PSYCHIATRIC Hx Depression: Yes Hx Substance Use: No - ANESTHESIA Hx Anesthesia: Yes Hx Anesthesia Reactions: No (unknown) Hx Malignant Hyperthermia: No Meds Allergies/Adverse Reactions: Allergies Allergy/AdvReac Type Severity Reaction Status Date / Time acetaminophen [From Tylenol] Allergy RASH Verified 06/02/17 19:00 aspirin Allergy RASH Verified 06/02/17 19:00 ketorolac tromethamine Allergy RASH Verified 06/02/17 19:00 [From Toradol] meperidine HCl [From Demerol] Allergy RASH Verified 06/02/17 19:00 oxycodone HCl [From Percocet] Allergy RASH Verified 06/02/17 19:00 peas Allergy ANAPHYLAXIS Verified 06/02/17 19:00 propoxyphene napsylate Allergy RASH Verified 06/02/17 19:00 [From Darvocet-N] - Medications Medications: Current Medications Amlodipine Besylate (Norvasc) 5 mg PO DAILY [facility] Home Med (Descovy 200-25 Mg Tablet) 1 tab PO DAILY [facility] Home Med (Insulin Lispro [Humalog]) 16 units SQ BID [facility] Insulin Glargine (Lantus) 16 unit SC HS [facility] Sertraline HCl (Zoloft) 50 mg PO DAILY [facility] Physical Exam - Constitutional Appears: Well, Non-toxic, No Acute Distress - Extremities Exam Additional comments: patient seen with shoes on both feet - Neurological Exam Neurological exam: Alert, Oriented x3 - Psychiatric Exam Psychiatric exam: Normal Affect, Normal Mood Results - Vital Signs Recent Vital Signs: Last Vital Signs Temp 98.4 F 06/02/17 18:56 Pulse 98 H 06/02/17 18:56 Resp 16 06/02/17 18:56 BP 165/113 H 06/02/17 18:56 Pulse Ox 100 06/02/17 21:11 - Labs Result Diagrams: 06/02/17 19:48 06/02/17 19:48 Labs: Laboratory Results - last 24 hr 06/02/17 06/02/17 06/02/17 19:48 19:48 19:48 WBC 7.1 RBC 4.11 Hgb 11.9 Hct 36.0 MCV 87.7 D MCH 29.0 MCHC 33.0 RDW 15.5 H Plt Count 295 D MPV 7.5 Neut % (Auto) 54.5 Lymph % (Auto) 32.5 [place] % (Auto) 8.4 Eos % (Auto) 3.5 Baso % (Auto) 1.1 Neut # (Auto) 3.9 Lymph # (Auto) 2.3 [place] # (Auto) 0.6 Eos # (Auto) 0.2 Baso # (Auto) 0.1 PT 11.3 INR 1.0 APTT 30 pO2 VBG pH VBG pCO2 VBG HCO3 VBG Total CO2 VBG O2 Sat (Calc) VBG Base Excess VBG Potassium Glucose Lactate Sodium 139 Potassium 3.7 Chloride 108 H Carbon Dioxide 22 Anion Gap 14 BUN 19 H Creatinine 2.7 H Est GFR ( Amer) 24 Est GFR (Non-Af Amer) 20 Random Glucose 191 H Calcium 8.8 Total Bilirubin 0.4 AST 26 ALT 27 Alkaline Phosphatase 103 Total Protein 8.6 H Albumin 3.5 D Globulin 5.1 H Albumin/Globulin Ratio 0.7 L Venous Blood Potassium 02/28/18 20:00 WBC RBC Hgb Hct MCV MCH MCHC RDW Plt Count MPV Neut % (Auto) Lymph % (Auto) [place] % (Auto) Eos % (Auto) Baso % (Auto) Neut # (Auto) Lymph # (Auto) [place] # (Auto) Eos # (Auto) Baso # (Auto) PT INR APTT pO2 18 L VBG pH 7.26 L VBG pCO2 52 VBG HCO3 19.5 VBG Total CO2 24.9 VBG O2 Sat (Calc) 30.2 L VBG Base Excess -4.3 L VBG Potassium 3.6 Glucose 194 H Lactate 1.2 Sodium 139.0 Potassium Chloride 107.0 Carbon Dioxide Anion Gap BUN Creatinine Est GFR ( Amer) Est GFR (Non-Af Amer) Random Glucose Calcium Total Bilirubin AST ALT Alkaline Phosphatase Total Protein Albumin Globulin Albumin/Globulin Ratio Venous Blood Potassium 3.6 Assessment & Plan - Assessment and Plan (Free Text) Assessment: 36 year old female with chronic ulcers of the left lower extremity Plan: patient examined and evaluated discussed in detail with attending, Dr. Coy lab, chart, vitals reviewed pain medication per primary podiatry will continue to follow patient while in house
[2017-06-02] MEDS ORDERED: Morphine 4 MG/ML VIAL ONE (22:02)
[2017-06-02] MEDS ORDERED: (Lantus) Insulin Glargine, Recombinant SC ONE (22:17)
[2017-06-02] MEDS: (Lantus) Insulin Glargine, Recombinant SC SCH (22:17)
--- NOTE | 2017-06-03 08:06 | HP ---
HISTORY OF PRESENT ILLNESS: This is a 36-year-old black female, who came to the emergency room. The patient was sent to the emergency room by Dr. Del Valle for possible osteomyelitis. The patient states that she has pain in the left foot, which is constant. The patient reports that her osteomyelitis is not controlled. The patient denies having any fever or chills. No history of chest pain. REVIEW OF SYSTEMS: CARDIOVASCULAR: Negative for chest pain. RESPIRATORY: Negative for shortness of breath. GI: Negative for nausea, vomiting, abdominal pain. [employer]ING ROOM: No focal neurological complaints offered. EXTREMITIES: No edema of the leg. Left leg, pain present. BACK: No back ache. GENITOURINARY: No urinary complaints. PSYCHIATRIC: The patient is stable. PAST HISTORY: History of hypertension, diabetes, depression, deep vein thrombosis, HIV positive, peripheral edema, chronic pain, mild renal insufficiency. The patient's medications are reviewed by me. FAMILY HISTORY: No known inherited disease. ALLERGIES: THE PATIENT IS ALLERGIC TO TYLENOL, ASPIRIN, AND KETOROLAC. SOCIAL HISTORY: Nonsmoker. Nonalcoholic. No IVDA. PHYSICAL EXAMINATION GENERAL: This is a 36-year-old black female, awake, alert, comfortable. VITAL SIGNS: Temperature 98.4, pulse 98, respirations 16, blood pressure 165/113 mmHg, pulse ox is 100% on room air. HEENT: Normal. NECK: JVP is flat. Carotids, no bruits. LUNGS: No rales. No wheezing. HEART: S1, S2 normal. No gallop. No murmur. ABDOMEN: Soft, nontender, no organomegaly. [employer]ING ROOM: No focal neurological deficits. EXTREMITIES: Left foot infection present and she has bandage around. LABORATORY DATA: On admission, lab work shows normal white cell count, hemoglobin 11.9, BUN 19, and creatinine is 2.7. Potassium is 3.7, blood sugar is 191. IMPRESSION: Chronic left leg ulcer, uncontrolled diabetes mellitus, osteomyelitis of left foot, acute diabetic foot infection, accelerated blood pressure, and renal insufficiency. PLAN: The patient will be admitted to the floor. We will get consult with Dr. Del Valle and Dr. Coy. We will continue on the medications. Other workup as needed. Art Nathan MD
[2017-06-03] MEDS ORDERED: DESCOVY PO SCH (10:00)
[2017-06-03] MEDS ORDERED: INSULIN LISPRO 16 UNIT SQ SCH ×2 (10:00→18:00)
[2017-06-03] MEDS ORDERED: (Novolog) Insulin Aspart, Recombinant 100 u/ml 10 ml vial ONE (10:11)
--- NOTE | 2017-06-03 11:27 | CP.PCM.PN ---
Subjective - Date & Time of Evaluation Date of Evaluation: 06/03/17 Time of Evaluation: 11:27 - Subjective Subjective: Podiatry Progress note for Dr. Coy 36 year old female was seen at bedside with attending, Dr. Coy regarding left foot ulcerations. Patient is AAOx3 and NAD. Patient denies any further pedal complaints at this time. Patient denies N/V/F/C/CP/SOB. Objective - Vital Signs/Intake and Output Vital Signs (last 24 hours): Temp Pulse Resp BP Pulse Ox 98.4 F 96 H 18 162/88 H 98 06/02/17 18:56 06/03/17 07:21 06/03/17 07:21 06/03/17 07:21 06/03/17 07:21 - Medications Medications: Current Medications Amlodipine Besylate (Norvasc) 5 mg PO DAILY [facility] Last Admin: 06/03/17 10:04 Dose: 5 mg Heparin Sodium (Porcine) (Heparin) 5,000 units SC Q12 [facility] Last Admin: 06/03/17 10:12 Dose: Not Given Home Med (Insulin Lispro [Humalog]) 16 units SQ BID [facility] Last Admin: 06/03/17 10:12 Dose: 16 units Home Med (Descovy 200-25 Mg Tablet) 1 tab PO DAILY [facility] Insulin Aspart (Novolog) 0 unit SC ACHS [facility] PRN Reason: Protocol Insulin Glargine (Lantus) 16 unit SC HS [facility] Last Admin: 06/02/17 22:17 Dose: 16 units Morphine Sulfate (Morphine) 4 mg IVP Q6 PRN PRN Reason: Pain, severe (8-10) Sertraline HCl (Zoloft) 50 mg PO DAILY [facility] Last Admin: 06/03/17 10:04 Dose: 50 mg - Labs Labs: 06/02/17 19:48 06/02/17 19:48 PT 11.3 SECONDS (9.7-12.2) 06/02/17 19:48 INR 1.0 06/02/17 19:48 APTT 30 SECONDS (21-34) 06/02/17 19:48 - Constitutional Appears: Well, Non-toxic, No Acute Distress - Extremities Exam Additional comments: left lower extremity focused exam: Vasc: DP and PT pulses non-palpable, Temp gradient warm to cool from proximal to distal. Capillary fill time is diminished. Mild to moderate non-pitting edema noted to L foot Derm: Ulceration noted to the lateral aspect of left foot by the 5th metatarsal. No malodor noted. No purulence, no erythema, no undermining. Superficial ulceration noted on lateral aspect of the left leg measuring approximately 10 cm by 5 cm with a granular/fibrotic base, no maldor, no drainage noted. Open ulceration noted to the plantar aspect of the left foot measuring approximately 5 cm by 5 cm with granular/fibrotic base, mild amount of drainage noted, mild malodor odor, Neuro: Protective sensation grossly diminished Ortho: Tenderness on palpation to plantar aspect of left foot - Neurological Exam Neurological Exam: Alert, Awake, Oriented x3 - Psychiatric Exam Psychiatric exam: Normal Affect, Normal Mood Assessment and Plan - Assessment and Plan (Free Text) Assessment: 36 year old female with left foot ulcerations with a history of OM Plan: Patient seen and evaluated at bedside,with Dr. Coy lab, chart, vitals reviewed left foot surgical site cleansed with normal sterile saline Left foot wound dressed with xeroform, DSD, kerlix and RAFFY Surgical shoe ordered and to be warn at all times while ambulating Wound culture obtained Xray pending Patient to OR tomorrow afternoon for left foot bone spur removal pending medical optimization Podiatry will continue to monitor while in house
[2017-06-03] MEDS: (Novolog) Insulin Aspart, Recombinant 100 u/ml 10 ml vial SC SCH ×3 (11:43→22:00)
[2017-06-03] MEDS ORDERED: Morphine 4 MG/ML VIAL ONE (11:55)
[2017-06-03] MEDS: Morphine 4 MG/ML VIAL IVP PRN ×2 (12:05→20:27)
--- NOTE | 2017-06-03 12:07 | CP.PCM.PN ---
Subjective - Date & Time of Evaluation Date of Evaluation: 06/03/17 Time of Evaluation: 12:05 - Subjective Subjective: PT C/O MILD LT FOOT PAIN. EVALUATED BY DR. REYES. FOR BONE SPUR REMOVAL YESTERDAY. AFEBRILE. Objective - Vital Signs/Intake and Output Vital Signs (last 24 hours): Temp Pulse Resp BP Pulse Ox 98.4 F 95 H 18 152/94 H 100 06/02/17 18:56 06/03/17 11:42 06/03/17 11:42 06/03/17 11:42 06/03/17 11:42 - Medications Medications: Current Medications Amlodipine Besylate (Norvasc) 5 mg PO DAILY [facility] Last Admin: 06/03/17 10:04 Dose: 5 mg Heparin Sodium (Porcine) (Heparin) 5,000 units SC Q12 [facility] Last Admin: 06/03/17 10:12 Dose: Not Given Home Med (Insulin Lispro [Humalog]) 16 units SQ BID [facility] Last Admin: 06/03/17 10:12 Dose: 16 units Home Med (Descovy 200-25 Mg Tablet) 1 tab PO DAILY [facility] Insulin Aspart (Novolog) 0 unit SC ACHS [facility] PRN Reason: Protocol Last Admin: 06/03/17 11:43 Dose: Not Given Insulin Glargine (Lantus) 16 unit SC HS [facility] Last Admin: 06/02/17 22:17 Dose: 16 units Morphine Sulfate (Morphine) 4 mg IVP Q6 PRN PRN Reason: Pain, severe (8-10) Sertraline HCl (Zoloft) 50 mg PO DAILY [facility] Last Admin: 06/03/17 10:04 Dose: 50 mg - Labs Labs: 06/02/17 19:48 06/02/17 19:48 PT 11.3 SECONDS (9.7-12.2) 06/02/17 19:48 INR 1.0 06/02/17 19:48 APTT 30 SECONDS (21-34) 06/02/17 19:48 - Constitutional Appears: No Acute Distress, Chronically Ill - Eye Exam Eye Exam: Normal appearance, PERRL - ENT Exam ENT Exam: Mucous Membranes Moist - Respiratory Exam Respiratory Exam: Clear to Ausculation Bilateral, NORMAL BREATHING PATTERN - Cardiovascular Exam Cardiovascular Exam: REGULAR RHYTHM, +S1, +S2 - GI/Abdominal Exam GI & Abdominal Exam: Soft, Normal Bowel Sounds - Back Exam Additional comments: LT FOOT INF. CELLULITIS. R/O OSTEOMYELITIS. - Neurological Exam Neurological Exam: Alert, Awake, CN II-XII Intact, Normal Gait, Oriented x3 - Psychiatric Exam Psychiatric exam: Normal Affect, Normal Mood Assessment and Plan - Assessment and Plan (Free Text) Assessment: LT FOOT ULCER, DIABETIC, R/O OSTEO. Plan: CT PRESENT MANAGEMENT.
--- NOTE | 2017-06-03 12:55 | CP.PCM.PN ---
Subjective - Date & Time of Evaluation Date of Evaluation: 06/03/17 Time of Evaluation: 12:52 - Subjective Subjective: PT SEEN IN THE ER (HOLDING FOR BED ON THE FLOOR) BY PODIATRY AND ADMITTING MDS. PT IS SCHEDULED FOR OR PROCEDURE TOMORROW AFTERNOON WITH DR. REYES. WILL HOLD HEPARIN OF NOW UNTIL AFTER PROCEDURE AND CLEARED BY PODIATRY TO RESTART. ALSO, PER DR. Alanna ZEE, THE PT IS MEDICALLY STABLE AND CLEARED FOR SURGICAL PROCEDURE TOMORROW. NO FURTHER ORDERS AT THIS TIME. Objective - Vital Signs/Intake and Output Vital Signs (last 24 hours): Temp Pulse Resp BP Pulse Ox 98.4 F 95 H 18 152/94 H 100 06/02/17 18:56 06/03/17 11:42 06/03/17 11:42 06/03/17 11:42 06/03/17 11:42 - Medications Medications: Current Medications Amlodipine Besylate (Norvasc) 5 mg PO DAILY [facility] Last Admin: 06/03/17 10:04 Dose: 5 mg Heparin Sodium (Porcine) (Heparin) 5,000 units SC Q12 [facility] Last Admin: 06/03/17 10:12 Dose: Not Given Home Med (Insulin Lispro [Humalog]) 16 units SQ BID [facility] Last Admin: 06/03/17 10:12 Dose: 16 units Home Med (Descovy 200-25 Mg Tablet) 1 tab PO DAILY [facility] Insulin Aspart (Novolog) 0 unit SC ACHS [facility] PRN Reason: Protocol Last Admin: 06/03/17 11:43 Dose: Not Given Insulin Glargine (Lantus) 16 unit SC HS [facility] Last Admin: 06/02/17 22:17 Dose: 16 units Morphine Sulfate (Morphine) 4 mg IVP Q6 PRN PRN Reason: Pain, severe (8-10) Last Admin: 06/03/17 12:05 Dose: 4 mg Sertraline HCl (Zoloft) 50 mg PO DAILY [facility] Last Admin: 06/03/17 10:04 Dose: 50 mg - Labs Labs: 06/02/17 19:48 06/02/17 19:48 PT 11.3 SECONDS (9.7-12.2) 06/02/17 19:48 INR 1.0 06/02/17 19:48 APTT 30 SECONDS (21-34) 06/02/17 19:48
--- NOTE | 2017-06-03 13:19 | RAD ---
PROCEDURE: Left Foot Radiographs. HISTORY: left foot ulcer COMPARISON: 10/29/2006 FINDINGS: BONES: Status post 1st digit station for metatarsal phalangeal joint level. The 2nd 3rd 4th 5th metatarsal prior surgical changes including portions of the 4th and 5th proximal phalanx are similar in appearance Distal post resected osseous sclerotic fusion from 2nd through 4th digit JOINTS: Tibiotalar joint arthrosis SOFT TISSUES: Exuberant soft tissue swelling with multiple ulcers mostly plantar mostly lateral apparent. Overlying bandaging present OTHER FINDINGS: None. IMPRESSION: No interval periosteal reaction or interval cortical destruction seen to strongly suggest interval osteomyelitis. Soft tissue findings consistent with ulcers and cellulitis
--- NOTE | 2017-06-03 18:53 | CP.PCM.CON ---
History of Present Illness - History of Present Illness History of Present Illness: 36 year old female with PMHx including DM, DVT, HIV, HTN was seen in the ED for complaint of left foot pain. Patient is well known to Dr. Coy. She states that she is having fevers but denies any n/v/c/sob/cp. long hx of noncompliance last seen approx 3 mos ago- never followed up now with worsening infection left foot/ chronic OM and renal failure will adjust antivirals, check t cells and viral load poor prognosis may need 6 weeks iv rx await or cultures Review of Systems - Review of Systems All systems: reviewed and no additional remarkable complaints except - Constitutional Constitutional: As Per HPI - EENT Eyes: Blurred Vision, Decreased Night Vision. absent: As Per HPI, Blind Spots, Change in Vision, Diplopia, Discharge, Dry Eye, Exophthalmos, Floaters, Irritation, Itchy Eyes, Loss of Peripheral Vision, Pain, Photophobia, Requires Corrective Lenses, Sees Flashes, Spots in Vision, Tunnel Vision, Other Visual Disturbances, Loss of Vision, Other Ears: absent: As Per HPI, Decreased Hearing, Ear Discharge, Ear Pain, Tinnitus, Abnormal Hearing, Disequilibrium, Dizziness, Other Nose/Mouth/Throat: absent: As Per HPI, Epistaxis, Nasal Congestion, Nasal Discharge, Nasal Obstruction, Nasal Trauma, Nose Pain, Post Nasal Drip, Sinus Pain, Sinus Pressure, Bleeding Gums, Change in Voice, Dental Pain, Dry Mouth, Dysphagia, Halitosis, Hoarsness, Lip Swelling, Mouth Lesions, Mouth Pain, Odynophagia, Sore Throat, Throat Swelling, Tongue Swelling, Facial Pain, Neck Pain, Neck Mass, Other - Breasts Breasts: absent: As Per HPI, Change in Shape, Mass, Pain, Nipple Discharge, Nipple Inversion, Skin Changes, Swelling, Other - Cardiovascular Cardiovascular: absent: As Per HPI, Acrocyanosis, Chest Pain, Chest Pain at Rest , Chest Pain with Activity, Claudication, Diaphoresis, Dyspnea, Dyspnea on Exertion, Edema, Irregular Heart Rhythm, Pain Radiating to Arm/Neck/Jaw, Leg Edema, Leg Ulcers, Lightheadedness, Orthopnea, Palpitations, Paroxysmal Nocturnal Dyspnea, Pedal Edema, Radiating Pain, Rapid Heart Rate, Slow Heart Rate, Syncope, Other - Respiratory Respiratory: absent: As Per HPI, Cough, Dyspnea, Hemoptysis, Dyspnea on Exertion , Wheezing, Snoring, Stridor, Pain on Inspiration, Chest Congestion, Excessive Mucous Production, Change in Mucous Color, Pain with Coughing, Other - Gastrointestinal Gastrointestinal: absent: As Per HPI, Abdominal Pain, Belching, Bloating, Change in Bowel Habits, Change in Stool Character, Coffee Ground Emesis, Constipation, Cramping, Diarrhea, Dyspepsia, Dysphagia, Early Satiety, Excessive Flatus, Fecal Incontinence, Heartburn, Hematemesis, Hematochezia, Loose Stools, Melena, Nausea, Odynophagia, Temesmus, Vomiting, Other - Genitourinary Genitourinary: absent: As Per HPI, Change in Urinary Stream, Difficulty Urinating, Dysuria, Flank Pain, Hematuria, Pyuria, Nocturia, Urinary Incontinence, Urinary Frequency, Urinary Hesitance, Urinary Urgency, Voiding Freq/Small Amts, Freq UTI, Hx Renal/Bladder Calculi, Hx /Renal Surgery, Bladder Distension, Other - Reproductive: Female Reproductive:Female: absent: As Per HPI, Amenorrhea, Amenorrhea/ Control, Currently Menstual, Cycle <21 Days, Cycle >35 Days, Cycle Variable, Menses 1-7 Days, Menses >/= 8 Days, Menses Variable, Cycle > 4 Weeks Between, No Menses for 6 Months, Heavy Menses, Light Menses, Normal Menses, Spotting Between Cycles , S/P Hysterectomy, Menopausal, Post Menopausal, Premenarche, Abnormal Vaginal Bleeding, Dysmenorrhea, Dyspareunia, Genital Lesions, Genital Pruritis, Pelvic Pain, Prolapse Symptoms, Sexual Dysfunction, Vaginal Discharge, Vaginal Dryness , Vaginal Odor, Vaginal Pruritis, Other - Menstruation Menstruation: absent: As Per HPI, Amenorrhea, Amenorrhea/ Control, Currently Menstual, Cycle <21 Days, Cycle >35 Days, Cycle Variable, Menses 1-7 Days, Menses >/= 8 Days, Menses Variable, Cycle > 4 Weeks Between, No Menses for 6 Months, Heavy Menses, Light Menses, Normal Menses, Spotting Between Cycles , S/P Hysterectomy, Menopausal, Post Menopausal, Premenarche, Abnormal Vaginal Bleeding, Dysmenorrhea, Other - Musculoskeletal Musculoskeletal: As Per HPI - Integumentary Integumentary: As Per HPI, Skin Pain, Wounds - Neurological Neurological: absent: As Per HPI, Abnormal Gait, Abnormal Hearing, Abnormal Movements, Abnormal Speech, Behavioral Changes, Burning Sensations, Confusion, Convulsions, Disequilibrium, Dizziness, Numbness, Focal Weakness, Frequent Falls , Headaches, Lack of Coordination, Loss of Vision, Memory Loss, Paresthesias, Radicular Pain, Restless Legs, Sensory Deficit, Syncope, Tingling, Tremor, Vertigo, Weakness, Other Visual Disturbances, Other - Psychiatric Psychiatric: absent: As Per HPI, Abnormal Sleep Pattern, Anhedonia, Anxiety, Auditory Hallucinations, Behavioral Changes, Change in Appetite, Change in Libido, Confusion, Depression, Difficulty Concentrating, Hallucinations, Homicidal Ideation, Hopelessness, Irritability, Memory Loss, Mood Swings, Panic Attacks, Paranoia, Suicidal Ideation, Visual Hallucinations, Tactile Hallucinations, Other - Endocrine Endocrine: absent: As Per HPI, Change in Body Appearance, Change in Libido, Cold Intolorance, Deepening of Voice, Excessive Sweating, Fatigue, Flushing, Heat Intolorance, Increase in Ring/Shoe/Hat Size, Palpitations, Polydipsia, Polyphagia, Polyuria, Other - Hematologic/Lymphatic Hematologic: absent: As Per HPI, Easy Bleeding, Easy Bruising, Lymphadenopathy, Other Past Patient History - Infectious Disease Hx of Infectious Diseases: None - Past Medical History & Family History Past Medical History?: Yes - Past Social History Smoking Status: Light Smoker < 10 Cigarettes Daily - CARDIAC Hx Cardiac Disorders: Yes Hx Hypertension: Yes Hx Peripheral Edema: Yes - PULMONARY Hx Respiratory Disorders: No - NEUROLOGICAL Hx Neurological Disorder: No - HEENT Hx HEENT Problems: No - RENAL Hx Chronic Kidney Disease: No - ENDOCRINE/METABOLIC Hx Endocrine Disorders: Yes Hx Diabetes Mellitus Type 2: Yes - HEMATOLOGICAL/ONCOLOGICAL Hx Blood Disorders: Yes Hx Human Immunodeficiency Virus (HIV): Yes - INTEGUMENTARY Hx Dermatological Problems: Yes Other/Comment: ULCER BOTTOM LEFT FOOT LEFT FOOT SUTURE LINES TOES - MUSCULOSKELETAL/RHEUMATOLOGICAL Hx Musculoskeletal Disorders: Yes Hx Falls: No Hx Osteomyelitis: Yes (LEFT FOOT, receiving daily infusion) - GASTROINTESTINAL Hx Gastrointestinal Disorders: No - GENITOURINARY/GYNECOLOGICAL Hx Genitourinary Disorders: No - PSYCHIATRIC Hx Psychophysiologic Disorder: Yes Hx Depression: Yes Hx Substance Use: No - SURGICAL HISTORY Other/Comment: left big toe amputation - ANESTHESIA Hx Anesthesia Reactions: No (unknown) Meds Allergies/Adverse Reactions: Allergies Allergy/AdvReac Type Severity Reaction Status Date / Time acetaminophen [From Tylenol] Allergy RASH Verified 06/02/17 19:00 aspirin Allergy RASH Verified 06/02/17 19:00 ketorolac tromethamine Allergy RASH Verified 06/02/17 19:00 [From Toradol] meperidine HCl [From Demerol] Allergy RASH Verified 06/02/17 19:00 oxycodone HCl [From Percocet] Allergy RASH Verified 06/02/17 19:00 peas Allergy ANAPHYLAXIS Verified 06/02/17 19:00 propoxyphene napsylate Allergy RASH Verified 06/02/17 19:00 [From Darvocet-N] - Medications Medications: Current Medications Abacavir Sulfate (Ziagen) 300 mg PO BID [facility] TO [facility] Amlodipine Besylate (Norvasc) 5 mg PO DAILY [facility] Last Admin: 06/03/17 10:04 Dose: 5 mg Diphenhydramine HCl (Benadryl) 50 mg PO Q6 PRN PRN Reason: itchiness Dolutegravir Sodium (Tivicay) 50 mg PO ONCE NR Heparin Sodium (Porcine) (Heparin) 5,000 units SC Q12 [facility] Last Admin: 06/03/17 10:12 Dose: Not Given Home Med (Descovy 200-25 Mg Tablet) 1 tab PO DAILY [facility] Insulin Aspart (Novolog) 0 unit SC ACHS [facility] PRN Reason: Protocol Last Admin: 06/03/17 11:43 Dose: Not Given Insulin Glargine (Lantus) 16 unit SC HS [facility] Last Admin: 06/02/17 22:17 Dose: 16 units Lamivudine (Epivir) 150 mg PO DAILY [facility] Morphine Sulfate (Morphine) 4 mg IVP Q6 PRN PRN Reason: Pain, severe (8-10) Last Admin: 06/03/17 12:05 Dose: 4 mg Sertraline HCl (Zoloft) 50 mg PO DAILY [facility] Last Admin: 06/03/17 10:04 Dose: 50 mg Physical Exam - Constitutional Appears: Non-toxic, Chronically Ill - Head Exam Head Exam: NORMOCEPHALIC - Eye Exam Eye Exam: PERRL. absent: Scleral icterus - ENT Exam ENT Exam: Mucous Membranes Dry - Neck Exam Neck exam: Negative for: Lymphadenopathy - Respiratory Exam Respiratory Exam: Decreased Breath Sounds, Clear to Auscultation Bilateral - Cardiovascular Exam Cardiovascular Exam: REGULAR RHYTHM, +S1, +S2 - GI/Abdominal Exam GI & Abdominal Exam: Diminished Bowel Sounds, Soft. absent: Tenderness - Rectal Exam Rectal Exam: Deferred - Exam Exam: NORMAL INSPECTION - Extremities Exam Extremities exam: Positive for: pedal edema, tenderness. Negative for: calf tenderness, pedal pulses present - Back Exam Back exam: absent: CVA tenderness (L), CVA tenderness (R) - Neurological Exam Neurological exam: Alert, CN II-XII Intact, Oriented x3, Reflexes Normal - Psychiatric Exam Psychiatric exam: Depressed - Skin Skin Exam: Dry Results - Vital Signs Recent Vital Signs: Last Vital Signs Temp 98.2 F 06/03/17 15:13 Pulse 88 06/03/17 15:13 Resp 18 06/03/17 15:13 BP 162/90 H 06/03/17 15:13 Pulse Ox 97 06/03/17 15:13 - Labs Result Diagrams: 06/02/17 19:48 06/02/17 19:48 Labs: Laboratory Results - last 24 hr 06/02/17 06/02/17 06/02/17 19:48 19:48 19:48 WBC 7.1 RBC 4.11 Hgb 11.9 Hct 36.0 MCV 87.7 D MCH 29.0 MCHC 33.0 RDW 15.5 H Plt Count 295 D MPV 7.5 Neut % (Auto) 54.5 Lymph % (Auto) 32.5 Stark % (Auto) 8.4 Eos % (Auto) 3.5 Baso % (Auto) 1.1 Neut # (Auto) 3.9 Lymph # (Auto) 2.3 Stark # (Auto) 0.6 Eos # (Auto) 0.2 Baso # (Auto) 0.1 PT 11.3 INR 1.0 APTT 30 pO2 VBG pH VBG pCO2 VBG HCO3 VBG Total CO2 VBG O2 Sat (Calc) VBG Base Excess VBG Potassium Glucose Lactate Sodium 139 Potassium 3.7 Chloride 108 H Carbon Dioxide 22 Anion Gap 14 BUN 19 H Creatinine 2.7 H Est GFR ( Amer) 24 Est GFR (Non-Af Amer) 20 POC Glucose (mg/dL) Random Glucose 191 H Calcium 8.8 Total Bilirubin 0.4 AST 26 ALT 27 Alkaline Phosphatase 103 Total Protein 8.6 H Albumin 3.5 D Globulin 5.1 H Albumin/Globulin Ratio 0.7 L Venous Blood Potassium 06/02/17 06/03/17 06/03/17 20:00 00:17 07:22 WBC RBC Hgb Hct MCV MCH MCHC RDW Plt Count MPV Neut % (Auto) Lymph % (Auto) Stark % (Auto) Eos % (Auto) Baso % (Auto) Neut # (Auto) Lymph # (Auto) Stark # (Auto) Eos # (Auto) Baso # (Auto) PT INR APTT pO2 18 L VBG pH 7.26 L VBG pCO2 52 VBG HCO3 19.5 VBG Total CO2 24.9 VBG O2 Sat (Calc) 30.2 L VBG Base Excess -4.3 L VBG Potassium 3.6 Glucose 194 H Lactate 1.2 Sodium 139.0 Potassium Chloride 107.0 Carbon Dioxide Anion Gap BUN Creatinine Est GFR ( Amer) Est GFR (Non-Af Amer) POC Glucose (mg/dL) 163 H 140 H Random Glucose Calcium Total Bilirubin AST ALT Alkaline Phosphatase Total Protein Albumin Globulin Albumin/Globulin Ratio Venous Blood Potassium 3.6 06/03/17 11:40 WBC RBC Hgb Hct MCV MCH MCHC RDW Plt Count MPV Neut % (Auto) Lymph % (Auto) Stark % (Auto) Eos % (Auto) Baso % (Auto) Neut # (Auto) Lymph # (Auto) Stark # (Auto) Eos # (Auto) Baso # (Auto) PT INR APTT pO2 VBG pH VBG pCO2 VBG HCO3 VBG Total CO2 VBG O2 Sat (Calc) VBG Base Excess VBG Potassium Glucose Lactate Sodium Potassium Chloride Carbon Dioxide Anion Gap BUN Creatinine Est GFR ( Amer) Est GFR (Non-Af Amer) POC Glucose (mg/dL) 114 H Random Glucose Calcium Total Bilirubin AST ALT Alkaline Phosphatase Total Protein Albumin Globulin Albumin/Globulin Ratio Venous Blood Potassium Assessment & Plan (1) Diabetic foot infection Status: Acute (2) Osteomyelitis of ankle or foot, acute Status: Acute (3) Chronic ulcer of left leg Status: Chronic Priority: Medium Onset Date: 02/13/16 (4) Uncontrolled diabetes mellitus Status: Chronic (5) GAEL (acute kidney injury) Status: Acute Priority: Medium (6) Abscess and cellulitis Status: Acute - Assessment and Plan (Free Text) Assessment: poor prognosis from outset may need BKA adjust iv antibiotics consider 6 weeks iv rx consider vascular consult
[2017-06-03] MEDS: Piperacill/Tazo 2.25gm in Dex 2.25 GM/50 ML BAG IVPB SCH (20:00)
[2017-06-03] MEDS: (Lantus) Insulin Glargine, Recombinant SC SCH (22:03)
[2017-06-04] MEDS: Piperacill/Tazo 2.25gm in Dex 2.25 GM/50 ML BAG IVPB SCH ×3 (02:48→17:59)
[2017-06-04] MEDS: Morphine 4 MG/ML VIAL IVP PRN ×4 (02:51→21:58)
[2017-06-04] MEDS: (Novolog) Insulin Aspart, Recombinant 100 u/ml 10 ml vial SC SCH ×4 (08:10→21:55)
--- NOTE | 2017-06-04 08:27 | CP.PCM.PN ---
Subjective - Date & Time of Evaluation Date of Evaluation: 06/04/17 Time of Evaluation: 08:27 - Subjective Subjective: Podiatry Progress note for Dr. Coy 36 year old female was seen resting comfortably at bedside regarding left foot ulcers. Patient states that she does not want to have surgery today as she did not get breakfast and does not want to wait until 5 pm to eat. Patient understands that surgery will be rescheduled for Wednesday06/07/17, will be NPO after midnight Wednesday. Denies any n/v/f/c/sob/cp. Objective - Vital Signs/Intake and Output Vital Signs (last 24 hours): Temp Pulse Resp BP Pulse Ox 98.5 F 99 H 20 162/90 H 97 06/04/17 00:00 06/04/17 00:00 06/04/17 00:00 06/03/17 15:13 06/04/17 00:00 - Medications Medications: Current Medications Abacavir Sulfate (Ziagen) 300 mg PO BID [facility] Last Admin: 06/03/17 19:00 Dose: Not Given Amlodipine Besylate (Norvasc) 5 mg PO DAILY [facility] Last Admin: 06/03/17 10:04 Dose: 5 mg Diphenhydramine HCl (Benadryl) 50 mg PO Q6 PRN PRN Reason: itchiness Last Admin: 06/03/17 20:27 Dose: 50 mg Dolutegravir Sodium (Tivicay) 50 mg PO DAILY [facility] Last Admin: 06/03/17 17:00 Dose: Not Given Heparin Sodium (Porcine) (Heparin) 5,000 units SC Q12 [facility] Last Admin: 06/03/17 10:12 Dose: Not Given Piperacillin Sod/Tazobactam Sod (Zosyn 2.25 Gm Iv Premix) 2.25 gm in 50 mls @ 100 mls/hr IVPB Q8H [facility] Last Admin: 06/04/17 02:48 Dose: 100 mls/hr Insulin Aspart (Novolog) 0 unit SC ACHS [facility] PRN Reason: Protocol Last Admin: 06/04/17 08:10 Dose: Not Given Insulin Glargine (Lantus) 16 unit SC HS [facility] Last Admin: 06/03/17 22:03 Dose: 16 units Lamivudine (Epivir) 150 mg PO DAILY [facility] Morphine Sulfate (Morphine) 4 mg IVP Q6 PRN PRN Reason: Pain, severe (8-10) Last Admin: 06/04/17 02:51 Dose: 4 mg Sertraline HCl (Zoloft) 50 mg PO DAILY [facility] Last Admin: 06/03/17 10:04 Dose: 50 mg - Labs Labs: 06/02/17 19:48 06/02/17 19:48 PT 11.3 SECONDS (9.7-12.2) 06/02/17 19:48 INR 1.0 06/02/17 19:48 APTT 30 SECONDS (21-34) 06/02/17 19:48 - Constitutional Appears: Well, Non-toxic, No Acute Distress - Extremities Exam Additional comments: dressing c/d/i - Neurological Exam Neurological Exam: Alert, Awake, Oriented x3 - Psychiatric Exam Psychiatric exam: Normal Affect, Normal Mood Assessment and Plan - Assessment and Plan (Free Text) Assessment: 36 year old female with left foot ulcers Plan: Patient seen and evaluated at bedside,with Dr. Coy lab, chart, vitals reviewed dressing left intact Surgical shoe ordered and to be warn at all times while ambulating Wound culture-pending Xray IMPRESSION:No interval periosteal reaction or interval cortical destruction seen to strongly suggest interval osteomyelitis. Soft tissue findings consistent with ulcers and cellulitis Patient to OR Wednesday06/07/17 at 7:45 for left foot bone spur removal optimization in chart NPO after midnight Wednesday Podiatry will continue to monitor while in house
[2017-06-04] MEDS ORDERED: DESCOVY PO SCH (10:00)
--- NOTE | 2017-06-04 13:15 | CP.PCM.PN ---
Subjective - Date & Time of Evaluation Date of Evaluation: 06/04/17 Time of Evaluation: 13:12 - Subjective Subjective: PT WAS FOR OR THIS AM. ATE FOOD. SO CANCELLED. AFEBRILE. Objective - Vital Signs/Intake and Output Vital Signs (last 24 hours): Temp Pulse Resp BP Pulse Ox 98.2 F 95 H 20 182/126 H 99 06/04/17 08:00 06/04/17 08:00 06/04/17 08:00 06/04/17 08:00 06/04/17 08:00 - Medications Medications: Current Medications Abacavir Sulfate (Ziagen) 300 mg PO BID [facility]PLAC[facility] BY [facility] Last Admin: 06/04/17 09:23 Dose: Not Given Amlodipine Besylate (Norvasc) 5 mg PO DAILY [facility] Last Admin: 06/04/17 09:18 Dose: 5 mg Diphenhydramine HCl (Benadryl) 50 mg PO Q6 PRN PRN Reason: itchiness Last Admin: 06/03/17 20:27 Dose: 50 mg Dolutegravir Sodium (Tivicay) 50 mg PO DAILY [facility] BY [facility] Last Admin: 06/04/17 09:23 Dose: Not Given Heparin Sodium (Porcine) (Heparin) 5,000 units SC Q12 [facility]PLACED BY [facility] Last Admin: 06/04/17 09:55 Dose: Not Given Piperacillin Sod/Tazobactam Sod (Zosyn 2.25 Gm Iv Premix) 2.25 gm in 50 mls @ 100 mls/hr IVPB Q8H REPLACED BY [facility] Last Admin: 06/04/17 11:45 Dose: 100 mls/hr Insulin Aspart (Novolog) 0 unit SC ACHS REPLACED BY [facility] PRN Reason: Protocol Last Admin: 06/04/17 12:28 Dose: Not Given Insulin Glargine (Lantus) 16 unit SC HS REPLACED BY [facility] Last Admin: 06/03/17 22:03 Dose: 16 units Lamivudine (Epivir) 150 mg PO DAILY [facility] Last Admin: 06/04/17 09:24 Dose: Not Given Morphine Sulfate (Morphine) 4 mg IVP Q6 PRN PRN Reason: Pain, severe (8-10) Last Admin: 06/04/17 09:25 Dose: 4 mg Sertraline HCl (Zoloft) 50 mg PO DAILY [facility] Last Admin: 06/04/17 09:18 Dose: 50 mg - Labs Labs: 06/02/17 19:48 06/02/17 19:48 PT 11.3 SECONDS (9.7-12.2) 06/02/17 19:48 INR 1.0 06/02/17 19:48 APTT 30 SECONDS (21-34) 06/02/17 19:48 - Constitutional Appears: No Acute Distress, Chronically Ill - Eye Exam Eye Exam: PERRL - ENT Exam ENT Exam: Mucous Membranes Moist - Neck Exam Neck Exam: Full ROM, Normal Inspection. absent: Lymphadenopathy - Respiratory Exam Respiratory Exam: Clear to Ausculation Bilateral, NORMAL BREATHING PATTERN - Cardiovascular Exam Cardiovascular Exam: REGULAR RHYTHM, +S1, +S2. absent: Murmur - GI/Abdominal Exam GI & Abdominal Exam: Soft, Normal Bowel Sounds. absent: Tenderness - Extremities Exam Additional comments: LT FOOT ULCER. - Neurological Exam Neurological Exam: Alert, Awake, CN II-XII Intact, Normal Gait, Oriented x3 - Psychiatric Exam Psychiatric exam: Normal Affect, Normal Mood Assessment and Plan - Assessment and Plan (Free Text) Assessment: OSTEO LT FOOT. CRF. Plan: CT PRESENT TREATMENT.
[2017-06-04 14:04] LABS: SQUAMOUS EPITHIAL 5 /hpf (0-5); URINE BILIRUBIN NEGATIVE (NEGATIVE); URINE BLOOD 1+ (NEGATIVE); URINE CLARITY Hazy (Clear); URINE COLOR Yellow (YELLOW); URINE GLUCOSE (UA) NORMAL (Normal); URINE LEUKOCYTE ESTERASE NEG Leu/uL (Negative); URINE PROTEIN 3+ mg/dL (NEGATIVE); URINE UROBILINOGEN NORMAL mg/dL (0.2-1.0)
--- NOTE | 2017-06-04 18:36 | CP.PCM.PN ---
Subjective - Date & Time of Evaluation Date of Evaluation: 06/04/17 Time of Evaluation: 09:00 - Subjective Subjective: c/o severe pain + GAEL rx in prggress for infected foot refusing antivirals - very non compliant Objective - Vital Signs/Intake and Output Vital Signs (last 24 hours): Temp Pulse Resp BP Pulse Ox 98.1 F 91 H 20 146/79 93 L 06/04/17 16:22 06/04/17 16:22 06/04/17 16:22 06/04/17 16:22 06/04/17 16:22 Intake and Output: 06/04/17 06/04/17 06:59 18:59 Intake Total 530 Balance 530 - Medications Medications: Current Medications Abacavir Sulfate (Ziagen) 300 mg PO BID [facility] Last Admin: 06/04/17 17:58 Dose: Not Given Amlodipine Besylate (Norvasc) 5 mg PO DAILY [facility] Last Admin: 06/04/17 09:18 Dose: 5 mg Carvedilol (Coreg) 6.25 mg PO BID [facility] Last Admin: 06/04/17 17:56 Dose: 6.25 mg Diphenhydramine HCl (Benadryl) 50 mg PO Q6 PRN PRN Reason: itchiness Last Admin: 06/03/17 20:27 Dose: 50 mg Dolutegravir Sodium (Tivicay) 50 mg PO DAILY [facility] Last Admin: 06/04/17 09:23 Dose: Not Given Heparin Sodium (Porcine) (Heparin) 5,000 units SC Q12 [facility] Last Admin: 06/04/17 09:55 Dose: Not Given Piperacillin Sod/Tazobactam Sod (Zosyn 2.25 Gm Iv Premix) 2.25 gm in 50 mls @ 100 mls/hr IVPB Q8H [facility] Last Admin: 06/04/17 17:59 Dose: 100 mls/hr Insulin Aspart (Novolog) 0 unit SC ACHS [facility] PRN Reason: Protocol Last Admin: 06/04/17 16:30 Dose: Not Given Insulin Glargine (Lantus) 16 unit SC HS [facility] Last Admin: 06/03/17 22:03 Dose: 16 units Lamivudine (Epivir) 150 mg PO DAILY [facility] Last Admin: 06/04/17 09:24 Dose: Not Given Morphine Sulfate (Morphine) 4 mg IVP Q6 PRN PRN Reason: Pain, severe (8-10) Last Admin: 06/04/17 15:35 Dose: 4 mg Sertraline HCl (Zoloft) 50 mg PO DAILY [facility] Last Admin: 06/04/17 09:18 Dose: 50 mg - Labs Labs: 06/02/17 19:48 06/02/17 19:48 PT 11.3 SECONDS (9.7-12.2) 06/02/17 19:48 INR 1.0 06/02/17 19:48 APTT 30 SECONDS (21-34) 06/02/17 19:48 - Constitutional Appears: Non-toxic, Chronically Ill - Head Exam Head Exam: NORMOCEPHALIC - Eye Exam Eye Exam: PERRL. absent: Scleral icterus - ENT Exam ENT Exam: Mucous Membranes Dry - Neck Exam Neck Exam: absent: Lymphadenopathy - Respiratory Exam Respiratory Exam: Decreased Breath Sounds - Cardiovascular Exam Cardiovascular Exam: REGULAR RHYTHM - GI/Abdominal Exam GI & Abdominal Exam: Distended - Rectal Exam Rectal Exam: Deferred - Exam Exam: NORMAL INSPECTION - Extremities Exam Extremities Exam: Pedal Edema, Tenderness. absent: Calf Tenderness Additional comments: left foot infected ++ pulses + - Back Exam Back Exam: absent: CVA tenderness (L), CVA tenderness (R), paraspinal tenderness - Neurological Exam Neurological Exam: Alert, Awake, Oriented x3 Neuro motor strength exam: Left Upper Extremity: 5, Right Upper Extremity: 5, Left Lower Extremity: 5, Right Lower Extremity: 5 - Psychiatric Exam Psychiatric exam: Depressed - Skin Skin Exam: Dry Assessment and Plan (1) Diabetic foot infection Status: Acute (2) Osteomyelitis of ankle or foot, acute Status: Acute (3) Chronic ulcer of left leg Status: Chronic (4) Uncontrolled diabetes mellitus Status: Chronic (5) GAEL (acute kidney injury) Status: Acute (6) Abscess and cellulitis Status: Acute - Assessment and Plan (Free Text) Assessment: consider vascular eval await renal eval and endocrine cont iv rx poor prognosis for ;limb salvage
--- NOTE | 2017-06-04 19:22 | CP.PCM.CON ---
History of Present Illness - History of Present Illness History of Present Illness: pt is seen and examined, full consult is dictated #[id number] Past Patient History - Infectious Disease Hx of Infectious Diseases: None - Past Medical History & Family History Past Medical History?: Yes - Past Social History Smoking Status: Light Smoker < 10 Cigarettes Daily - CARDIAC Hx Cardiac Disorders: Yes Hx Hypertension: Yes Hx Peripheral Edema: Yes - PULMONARY Hx Respiratory Disorders: No - NEUROLOGICAL Hx Neurological Disorder: No - HEENT Hx HEENT Problems: No - RENAL Hx Chronic Kidney Disease: No - ENDOCRINE/METABOLIC Hx Endocrine Disorders: Yes Hx Diabetes Mellitus Type 2: Yes - HEMATOLOGICAL/ONCOLOGICAL Hx Blood Disorders: Yes Hx Human Immunodeficiency Virus (HIV): Yes - INTEGUMENTARY Hx Dermatological Problems: Yes Other/Comment: ULCER BOTTOM LEFT FOOT LEFT FOOT SUTURE LINES TOES - MUSCULOSKELETAL/RHEUMATOLOGICAL Hx Musculoskeletal Disorders: Yes Hx Falls: No Hx Osteomyelitis: Yes (LEFT FOOT, receiving daily infusion) - GASTROINTESTINAL Hx Gastrointestinal Disorders: No - GENITOURINARY/GYNECOLOGICAL Hx Genitourinary Disorders: No - PSYCHIATRIC Hx Psychophysiologic Disorder: Yes Hx Depression: Yes Hx Substance Use: No - SURGICAL HISTORY Other/Comment: left big toe amputation - ANESTHESIA Hx Anesthesia Reactions: No (unknown) Meds Allergies/Adverse Reactions: Allergies Allergy/AdvReac Type Severity Reaction Status Date / Time acetaminophen [From Tylenol] Allergy RASH Verified 06/02/17 19:00 aspirin Allergy RASH Verified 06/02/17 19:00 ketorolac tromethamine Allergy RASH Verified 06/02/17 19:00 [From Toradol] meperidine HCl [From Demerol] Allergy RASH Verified 06/02/17 19:00 oxycodone HCl [From Percocet] Allergy RASH Verified 06/02/17 19:00 peas Allergy ANAPHYLAXIS Verified 06/02/17 19:00 propoxyphene napsylate Allergy RASH Verified 06/02/17 19:00 [From Darvocet-N] - Medications Medications: Current Medications Abacavir Sulfate (Ziagen) 300 mg PO BID [facility] Last Admin: 06/04/17 17:58 Dose: Not Given Amlodipine Besylate (Norvasc) 5 mg PO DAILY [facility] Last Admin: 06/04/17 09:18 Dose: 5 mg Carvedilol (Coreg) 6.25 mg PO BID [facility] Last Admin: 06/04/17 17:56 Dose: 6.25 mg Diphenhydramine HCl (Benadryl) 50 mg PO Q6 PRN PRN Reason: itchiness Last Admin: 06/03/17 20:27 Dose: 50 mg Dolutegravir Sodium (Tivicay) 50 mg PO DAILY [facility] Last Admin: 06/04/17 09:23 Dose: Not Given Heparin Sodium (Porcine) (Heparin) 5,000 units SC Q12 [facility] Last Admin: 06/04/17 09:55 Dose: Not Given Piperacillin Sod/Tazobactam Sod (Zosyn 2.25 Gm Iv Premix) 2.25 gm in 50 mls @ 100 mls/hr IVPB Q8H [facility] Last Admin: 06/04/17 17:59 Dose: 100 mls/hr Insulin Aspart (Novolog) 0 unit SC ACHS [facility] PRN Reason: Protocol Last Admin: 06/04/17 16:30 Dose: Not Given Insulin Glargine (Lantus) 16 unit SC HS [facility] Last Admin: 06/03/17 22:03 Dose: 16 units Lamivudine (Epivir) 150 mg PO DAILY [facility] Last Admin: 06/04/17 09:24 Dose: Not Given Morphine Sulfate (Morphine) 4 mg IVP Q6 PRN PRN Reason: Pain, severe (8-10) Last Admin: 06/04/17 15:35 Dose: 4 mg Sertraline HCl (Zoloft) 50 mg PO DAILY [facility] Last Admin: 06/04/17 09:18 Dose: 50 mg Results - Vital Signs Recent Vital Signs: Last Vital Signs Temp 98.1 F 06/04/17 16:22 Pulse 91 H 06/04/17 16:22 Resp 20 06/04/17 16:22 BP 146/79 06/04/17 16:22 Pulse Ox 93 L 06/04/17 16:22 - Labs Result Diagrams: 06/02/17 19:48 06/02/17 19:48 Labs: Laboratory Results - last 24 hr 06/03/17 06/03/17 06/04/17 17:04 22:00 07:25 POC Glucose (mg/dL) 127 H 132 H 87 Urine Color Urine Clarity Urine pH Ur Specific [place] Urine Protein Urine Glucose (UA) Urine Ketones Urine Blood Urine Nitrate Urine Bilirubin Urine Urobilinogen Ur Leukocyte Esterase Urine WBC (Auto) Urine RBC (Auto) Ur Squamous Epith Cells 06/04/17 06/04/17 06/04/17 11:56 13:55 16:14 POC Glucose (mg/dL) 128 H 128 H Urine Color Yellow Urine Clarity Hazy Urine pH 5.0 Ur Specific [place] 1.016 Urine Protein 3+ H Urine Glucose (UA) Normal Urine Ketones Negative Urine Blood 1+ H Urine Nitrate Negative Urine Bilirubin Negative Urine Urobilinogen Normal Ur Leukocyte Esterase Neg Urine WBC (Auto) 2 Urine RBC (Auto) 5 H Ur Squamous Epith Cells 5
[2017-06-04] MEDS: (Lantus) Insulin Glargine, Recombinant SC SCH (21:53)
[2017-06-04 23:08] LABS: URINE CREATININE 62.4 mg/dL
[2017-06-05] MEDS: Piperacill/Tazo 2.25gm in Dex 2.25 GM/50 ML BAG IVPB SCH ×3 (02:20→21:00)
[2017-06-05] MEDS: Morphine 4 MG/ML VIAL IVP PRN ×2 (07:50→14:17)
[2017-06-05] MEDS: (Novolog) Insulin Aspart, Recombinant 100 u/ml 10 ml vial SC SCH ×4 (07:50→21:35)
--- NOTE | 2017-06-05 09:50 | CON ---
DATE: RENAL CONSULTATION LOCATION: The patient is located in room 354, bed A. REQUESTED BY: Art Nathan MD REASON FOR RENAL CONSULTATION: Increased BUN and creatinine; proteinuria, massive; for further evaluation. HISTORY OF PRESENT ILLNESS: Mrs. Johnson is a 36-year-old obese, young, transgender female with a past medical history significant for longstanding diabetes since age of about 17, hypertension, HIV positive, and osteomyelitis of the right leg, was admitted with right leg pain and pain is constant. Denies any fever or chills. Denies any nausea, vomiting or diarrhea. Denies any abdominal pain. Denies any dysuria or frequency. PAST MEDICAL HISTORY: Significant for longstanding hypertension, diabetes, depression, DVT, peripheral edema, chronic kidney disease, and HIV positive. PAST SURGICAL HISTORY: Status post detachment of the left first toe, third toe, and fourth toe, and left foot partial third ray and also left foot partial fourth ray amputation; and also drainage of gluteal abscess. ALLERGIES: ALLERGIC TO ASPIRIN, TYLENOL, KETOROLAC, TROMETHAMINE, AND MEPERIDINE. SOCIAL HISTORY: The patient is a smoker, smokes half-a-pack a day since age 15 and also social alcohol use and also uses marijuana. PERSONAL HISTORY: Transgender female. FAMILY HISTORY: Nonsignificant. CURRENT MEDICATIONS: Include as follows: Benadryl 50 mg p.o. q.6 hours, Coreg 6.25 mg p.o. b.i.d., Epivir 150 mg p.o. daily, subcutaneous heparin 5000 q.12 hours, Lantus 16 units subcutaneously at bedtime, morphine 4 mg IV q.6 hours, Norvasc 5 mg p.o. daily, NovoLog, Tivicay 50 mg p.o. daily, Ziagen 300 mg p.o. b.i.d., Zoloft 50 mg p.o. daily, and Zosyn 2.25 gm IV q.8 hours. REVIEW OF THE SYSTEMS: Significant for leg pain, right leg. All other review of systems are reviewed and negative. Also noncompliant with the medications. The patient does not like to take the pills and any medications as per the patient. PHYSICAL EXAMINATION: VITAL SIGNS: As follows: Blood pressure 146/79, pulse 91, respirations 20, temperature 98.1, and saturations 93%. Height 6 feet 3 inches and weight is 296 pounds. GENERAL: Ms. Johnson is a 36-year-old transgender female, well built, well nourished, not in any distress. HEENT: Pupils normal, reactive to light and accommodation. Conjunctivae pink. Sclerae anicteric. Tongue is moist. Trachea is midline. LUNGS: Symmetric on both sides. Bilateral breath sounds present. Clear on auscultation. CARDIOVASCULAR: Vaughan at the fifth intercostal space, midclavicular line. S1 and S2 audible. No murmur or gallop. ABDOMEN: Normal in appearance, soft, tympanic. No guarding. No rigidity. No hepatosplenomegaly. CENTRAL NERVOUS SYSTEM: The patient is alert, awake, and oriented x3. Nonfocal neuro examination. Cranial nerves II through XII grossly intact. Sensory and motor system is within normal limits. EXTREMITIES: No cyanosis, no clubbing, no edema. The patient has dressing done on the left foot.rt leg normal LABORATORY DATA: Includes as follows: As of 06/02/2017: WBC 7.1, hemoglobin 11.9, hematocrit is 36, and platelets 295. PT 11.3, PTT 30. ABG; pH 7.26, pO2 of 18, pCO2 of 52, bicarb 19, and saturation 30. Sodium 139, potassium is 3.7, chloride 108, CO2 of 22, BUN 19, creatinine 2.7, glucose 181, and calcium 8.8. Total bili 0.4, AST 26, ALT 27, alkaline phosphatase 103. Total protein 8.6. Albumin is 3.5. Urinalysis as of 06/04/2017, yellow, hazy, pH 5, specific gravity 1.013, protein 3+, glucose normal, ketones negative, blood 1+, nitrites negative, bilirubin negative, urobilinogen normal, leukocyte esterase negative, wbc 2, rbc 5. Review of other labs from the previous admissions and review of the EMR: Serology as of 10/31/2016: HIV-1 RNA PCR 4.39 logs and hepatitis A IgM antibody is negative and hepatitis B surface antigen negative. Hepatitis B core antibody IgM is negative and hep C antibody is negative. CD4 count and T-cell count as of 10/31/2016: CD4 is 26% and absolute CD4 count is 269. CD4/CD8 ratio is 0.44. Other reports as of 02/09/2012, serum creatinine is 1.0. As of 12/14/2013, serum creatinine 1.6, and as of 08/31/2014, serum creatinine is 1.6, and as of 10/27/2014, serum creatinine 2.0. As of 07/14/2016, serum creatinine 2.9. As of 11/01/2016, creatinine was 3.0. 11/02/2016, creatinine 3.1. As of 11/09/2016, serum creatinine was 2.3. Other reports: Renal ultrasound as of 02/24/2016: Right kidney measures 11.4 x 5 cm, normal echogenicity. No calculus, mass, or hydronephrosis. Left kidney, 12.9 x 6.6 cm, normal echogenicity, no calculus, mass, or hydronephrosis. Lower extremity MRI as of 11/03/2016: Impression: Marked deformities of the left foot including resection of the first digit to the metatarsal head and deformities of the second through fifth metatarsal bones with osteotomies of the second through fifth metatarsal heads and shafts, marked cortical productive changes and heterotrophic bone seen in the metatarsal shafts and heads at level, adjacent bony destructive changes noted at the base of the second through fifth proximal phalanges. Prominent soft tissue ulceration seen at the lateral foot at the base of the fifth metatarsal bone extending into the volar soft tissue with prominent phlegmon and/or abscess collection measuring up to 5.0 x 1.0 cm. Prominent signal abnormality seen within the fifth metatarsal remnant, demarcating decreased T1 signal and increased STIR signal consistent with acute osteomyelitis, patchy reactive bone marrow edema with mild patchy decreased T1 signal seen within the third and fourth metatarsal shafts, nonspecific prominent proliferative heterotropic bone formation at this level which may represent changes of chronic osteomyelitis and again neuropathic change. Prominent fluid collection noted at the volar base of the second metatarsal shaft measuring 3.0 x 1.3 cm with internal synovial debris and hypertropic reactive edema seen within the second metatarsal shaft with some mild patchy decreased T1 signal, nonspecific, although superimposed [id number] osteomyelitis changes cannot be excluded. In addition, there is a prominent signal abnormality seen within the second proximal phalanx with patchy decreased T1 signal and increased STIR signal for which acute osteomyelitis cannot be entirely excluded. X-ray of the foot as of 06/03/2017: X-ray of the left foot radiograph, status post first digitization of metatarsal phalanges joint level and second, third, fourth, fifth metatarsal prior surgical changes including portion of the fourth and fifth proximal phalanx are similar in appearance. No interval periosteal reaction or interval cortical destructions seen to strongly suggest interval osteomyelitic soft tissue findings consistent with the ulcers and cellulitis. As of 06/03/2017, wound cultures are pending. As of 04/21/2017, wound cultures positive for staph, coagulase negative. ASSESSMENT AND PLAN: In summary, Mrs. Johnson is a 36-year-old young female transgender with hypertension, diabetes, human immunodeficiency virus positive, and massive proteinuria. 24-hour urine protein more than 14.6 gm on 11/03/2016 with increasing BUN and creatinine. 1. Chronic kidney disease 3 most likely secondary to diabetic nephropathy. Cannot rule out underlying human immunodeficiency virus associated nephropathy. 2. Chronic osteomyelitis of left leg, rule out neuropathic joint. 3. Uncontrolled diabetes. 4. Hypertension. 5. Human immunodeficiency virus, noncompliant with any of the medications as per the patient. The patient had partial workup in the past with hepatitis was negative. Consider to check MIKIE, C3, C4, and UPEP if the patient allows and also check PTH intact level. Discussed with the patient regarding the need for controlling the blood pressure and diabetes. Otherwise, the patient can lose renal function about 1% every month due to massive proteinuria with other comorbid conditions. We will follow up with you. The patient does not want any kidney biopsy at this time. Thank you for allowing me to participate in your patient's care. Weston Brambila MD [facility]
--- NOTE | 2017-06-05 10:58 | CP.PCM.PN ---
Subjective - Date & Time of Evaluation Date of Evaluation: 06/05/17 Time of Evaluation: 10:55 - Subjective Subjective: PT HAS HIGH BP. NO HEADACHES. CRF. CH OM OF LT FOOT. DM. HIV. Objective - Vital Signs/Intake and Output Vital Signs (last 24 hours): Temp Pulse Resp BP Pulse Ox 97.9 F 95 H 20 172/105 H 96 06/05/17 07:00 06/05/17 07:00 06/05/17 07:00 06/05/17 07:00 06/05/17 07:00 Intake and Output: 06/05/17 06/05/17 06:59 18:59 Intake Total 800 Balance 800 - Medications Medications: Current Medications Abacavir Sulfate (Ziagen) 300 mg PO BID [facility] Last Admin: 06/05/17 09:55 Dose: Not Given Amlodipine Besylate (Norvasc) 5 mg PO DAILY [facility] Last Admin: 06/05/17 09:35 Dose: 5 mg Carvedilol (Coreg) 6.25 mg PO BID [facility] Last Admin: 06/05/17 09:35 Dose: 6.25 mg Diphenhydramine HCl (Benadryl) 50 mg PO Q6 PRN PRN Reason: itchiness Last Admin: 06/04/17 21:58 Dose: 50 mg Dolutegravir Sodium (Tivicay) 50 mg PO DAILY [facility] Last Admin: 06/05/17 09:55 Dose: Not Given Heparin Sodium (Porcine) (Heparin) 5,000 units SC Q12 [facility] Last Admin: 06/05/17 09:54 Dose: Not Given Piperacillin Sod/Tazobactam Sod (Zosyn 2.25 Gm Iv Premix) 2.25 gm in 50 mls @ 100 mls/hr IVPB Q8H [facility] Last Admin: 06/05/17 10:16 Dose: 100 mls/hr Insulin Aspart (Novolog) 0 unit SC ACHS [facility] PRN Reason: Protocol Last Admin: 06/05/17 07:50 Dose: Not Given Insulin Glargine (Lantus) 16 unit SC HS [facility] Last Admin: 06/04/17 21:53 Dose: 16 units Lamivudine (Epivir) 150 mg PO DAILY [facility] Last Admin: 06/05/17 09:54 Dose: Not Given Morphine Sulfate (Morphine) 4 mg IVP Q6 PRN PRN Reason: Pain, severe (8-10) Last Admin: 06/05/17 07:50 Dose: 4 mg Sertraline HCl (Zoloft) 50 mg PO DAILY [facility] Last Admin: 06/05/17 09:35 Dose: 50 mg - Labs Labs: 06/02/17 19:48 06/04/17 22:51 PT 11.3 SECONDS (9.7-12.2) 06/02/17 19:48 INR 1.0 06/02/17 19:48 APTT 30 SECONDS (21-34) 06/02/17 19:48 - Constitutional Appears: Well - Head Exam Head Exam: ATRAUMATIC, NORMAL INSPECTION, NORMOCEPHALIC - Eye Exam Eye Exam: EOMI, Normal appearance, PERRL Pupil Exam: NORMAL ACCOMODATION, PERRL - ENT Exam ENT Exam: Mucous Membranes Moist, Normal Exam - Neck Exam Neck Exam: Full ROM, Normal Inspection. absent: Lymphadenopathy - Respiratory Exam Respiratory Exam: Clear to Ausculation Bilateral, NORMAL BREATHING PATTERN - Cardiovascular Exam Cardiovascular Exam: REGULAR RHYTHM, +S1, +S2. absent: Murmur - GI/Abdominal Exam GI & Abdominal Exam: Soft, Normal Bowel Sounds. absent: Tenderness - Neurological Exam Neurological Exam: Alert, Awake, CN II-XII Intact, Normal Gait, Oriented x3 - Psychiatric Exam Psychiatric exam: Normal Affect, Normal Mood Assessment and Plan - Assessment and Plan (Free Text) Assessment: HTN. OM LT FOOT. DM CRF. Plan: FOR BP MEDS. PODIETRY F/U.
[2017-06-05 12:14] LABS: BASO % 0.5 % (0.0-2.0); EOS # 0.4 K/uL (0.0-0.7); EOS % 5.9 % (0.0-4.0); HEMOGLOBIN 11.4 g/dL (11.0-16.0); LYMPH # 2.2 K/uL (1.0-4.3); MEAN CELL VOLUME 87.6 fL (81.0-99.0); MEAN CORPUSCULAR HEMOGLOBIN 29.6 pg (27.0-31.0); MEAN CORPUSCULAR HGB CONC 33.7 g/dL (33.0-37.0); MEAN PLATELET VOLUME 7.5 fL (7.2-11.7); MONO # 0.6 K/uL (0.0-0.8); MONO % 9.8 % (0.0-10.0); NEUT # 2.8 K/uL (1.8-7.0); NEUT % 46.8 % (50.0-75.0); RBC 3.84 Mil/uL (3.80-5.20); RED CELL DISTRIBUTION WIDTH 15.6 % (11.5-14.5)
[2017-06-05 12:33] LABS: CALCIUM 8.8 mg/dl (8.6-10.4)
--- NOTE | 2017-06-05 16:43 | CP.PCM.PN ---
Subjective - Date & Time of Evaluation Date of Evaluation: 06/05/17 Time of Evaluation: 16:42 - Subjective Subjective: pt is seen and examined, follow up consult is dictated #[id number] Objective - Vital Signs/Intake and Output Vital Signs (last 24 hours): Temp Pulse Resp BP Pulse Ox 97.9 F 95 H 20 172/105 H 96 06/05/17 07:00 06/05/17 07:00 06/05/17 07:00 06/05/17 07:00 06/05/17 07:00 Intake and Output: 06/05/17 06/05/17 06:59 18:59 Intake Total 800 650 Balance 800 650 - Medications Medications: Current Medications Abacavir Sulfate (Ziagen) 300 mg PO BID [facility] Last Admin: 06/05/17 09:55 Dose: Not Given Amlodipine Besylate (Norvasc) 5 mg PO DAILY [facility] Last Admin: 06/05/17 09:35 Dose: 5 mg Carvedilol (Coreg) 12.5 mg PO BID [facility] Diphenhydramine HCl (Benadryl) 50 mg PO Q6 PRN PRN Reason: itchiness Last Admin: 06/04/17 21:58 Dose: 50 mg Dolutegravir Sodium (Tivicay) 50 mg PO DAILY [facility] Last Admin: 06/05/17 09:55 Dose: Not Given Heparin Sodium (Porcine) (Heparin) 5,000 units SC Q12 [facility] Last Admin: 06/05/17 09:54 Dose: Not Given Piperacillin Sod/Tazobactam Sod (Zosyn 2.25 Gm Iv Premix) 2.25 gm in 50 mls @ 100 mls/hr IVPB Q8H [facility] Last Admin: 06/05/17 10:16 Dose: 100 mls/hr Insulin Aspart (Novolog) 0 unit SC ACHS [facility] PRN Reason: Protocol Last Admin: 06/05/17 12:16 Dose: Not Given Insulin Glargine (Lantus) 16 unit SC HS [facility] Last Admin: 06/04/17 21:53 Dose: 16 units Lamivudine (Epivir) 150 mg PO DAILY [facility] Last Admin: 06/05/17 09:54 Dose: Not Given Morphine Sulfate (Morphine) 4 mg IVP Q6 PRN PRN Reason: Pain, severe (8-10) Last Admin: 03/03/18 14:17 Dose: 4 mg Sertraline HCl (Zoloft) 50 mg PO DAILY [facility] Last Admin: 06/05/17 09:35 Dose: 50 mg - Labs Labs: 06/05/17 12:03 06/05/17 12:03 PT 11.3 SECONDS (9.7-12.2) 06/02/17 19:48 INR 1.0 06/02/17 19:48 APTT 30 SECONDS (21-34) 06/02/17 19:48
--- NOTE | 2017-06-05 17:47 | CP.PCM.PN ---
Subjective - Date & Time of Evaluation Date of Evaluation: 06/05/17 Time of Evaluation: 11:35 - Subjective Subjective: Podiatry Progress Note - Dr. Coy 36 year old female patient seen and evaluated at bedside for left lower extremity ulcerations. Patient hemodynamically stable and NAD. Patient offers no complaints to LLE today. States she has been ambulating without any issues, but has been ambulating on her dressing without any shoes. Patient also reports 2 days ago she noticed that her nail on her right 2nd digit fell off; unknown if she hit her toe. Patient noticed bleeding yesterday however bleeding has stopped today. Patient denies any pain to right 2nd toe. Patient aware she is scheduled for surgery 06/07/17, and will be NPO after midnight. Denies N/V /F/D/C/SOB. Objective - Vital Signs/Intake and Output Vital Signs (last 24 hours): Temp Pulse Resp BP Pulse Ox 97.9 F 95 H 20 160/88 H 96 06/05/17 07:00 06/05/17 07:00 06/05/17 07:00 06/05/17 17:41 06/05/17 07:00 Intake and Output: 06/05/17 06/05/17 06:59 18:59 Intake Total 800 650 Balance 800 650 - Medications Medications: Current Medications Abacavir Sulfate (Ziagen) 300 mg PO BID [facility] Last Admin: 06/05/17 17:41 Dose: 300 mg Amlodipine Besylate (Norvasc) 5 mg PO DAILY [facility] Last Admin: 06/05/17 09:35 Dose: 5 mg Carvedilol (Coreg) 12.5 mg PO BID [facility] Last Admin: 06/05/17 17:41 Dose: 12.5 mg Diphenhydramine HCl (Benadryl) 50 mg PO Q6 PRN PRN Reason: itchiness Last Admin: 06/04/17 21:58 Dose: 50 mg Dolutegravir Sodium (Tivicay) 50 mg PO DAILY [facility] Last Admin: 06/05/17 09:55 Dose: Not Given Heparin Sodium (Porcine) (Heparin) 5,000 units SC Q12 [facility] Last Admin: 06/05/17 09:54 Dose: Not Given Piperacillin Sod/Tazobactam Sod (Zosyn 2.25 Gm Iv Premix) 2.25 gm in 50 mls @ 100 mls/hr IVPB Q8H [facility] Last Admin: 06/05/17 10:16 Dose: 100 mls/hr Insulin Aspart (Novolog) 0 unit SC ACHS [facility] PRN Reason: Protocol Last Admin: 06/05/17 16:30 Dose: Not Given Insulin Glargine (Lantus) 16 unit SC HS [facility] Last Admin: 06/04/17 21:53 Dose: 16 units Lamivudine (Epivir) 150 mg PO DAILY [facility] Last Admin: 06/05/17 09:54 Dose: Not Given Morphine Sulfate (Morphine) 4 mg IVP Q6 PRN PRN Reason: Pain, severe (8-10) Last Admin: 06/05/17 14:17 Dose: 4 mg Sertraline HCl (Zoloft) 50 mg PO DAILY [facility] Last Admin: 06/05/17 09:35 Dose: 50 mg - Labs Labs: 06/05/17 12:03 06/05/17 12:03 PT 11.3 SECONDS (9.7-12.2) 06/02/17 19:48 INR 1.0 06/02/17 19:48 APTT 30 SECONDS (21-34) 06/02/17 19:48 - Constitutional Appears: Well, Non-toxic, No Acute Distress - Extremities Exam Additional comments: Dressing to LLE dirty, intact Vasc: DP and PT pulses non-palpable , Temp gradient warm to warm from proximal to distal. Capillary fill time is diminished. Mild to moderate non-pitting edema noted to L foot. No edema noted to right 2nd digit. Derm: Ulceration noted to the lateral aspect of left foot sub 5th metatarsal. No malodor noted. No purulence, no erythema, no undermining. Superficial ulceration noted on lateral aspect of the left leg measuring approximately 10 cm by 5 cm with a granular/fibrotic base with minimal serosanguinous drainage noted; absent purulence and malodor. Ulceration noted to the plantar aspect of the left foot measuring approximately 5 cm by 5 cm with granular/fibrotic base, mild amount of drainage noted, mild malodor odor present. Total avulsion of right nail 2 with exposed nail bed; dried, crusted blood present along nail grooves; absent erythema; no drainage, no purulence, no fluctuance, no clinical suspicions for active infection. Neuro: Protective sensation grossly diminished Ortho: Tenderness on palpation to plantar aspect of left foot - Neurological Exam Neurological Exam: Alert, Awake, Oriented x3 - Psychiatric Exam Psychiatric exam: Normal Affect, Normal Mood Assessment and Plan - Assessment and Plan (Free Text) Assessment: 36 year old female with left lower extremity ulcerations Plan: Patient seen and evaluated at bedside with attending, Dr. Coy Afebrile, WBC 6.0 Xray IMPRESSION:No interval periosteal reaction or interval cortical destruction seen to strongly suggest interval osteomyelitis. Soft tissue findings consistent with ulcers and cellulitis Continue local wound care - saline flush, xeroform, DSD LLE; saline flush, 4x4 right 2nd digit Patient to keep dressing clean/dry/intact, no WB on dressing Patient to WBAT in surgical shoe LLE, to be worn at all times - patient remains noncompliant despite education Left foot wound culture (prelim) - gram negative rachell, gram positive cocci, corynebacterium Patient to OR Wednesday06/07/17 at 7:45 for left foot bone spur removal optimization in chart NPO after midnight Wednesday Heparin held however patient continues to refuse administration despite education Podiatry will continue to follow while patient in house
[2017-06-05] MEDS: (Lantus) Insulin Glargine, Recombinant SC SCH (21:35)
[2017-06-06] MEDS: Morphine 4 MG/ML VIAL IVP PRN ×4 (02:50→23:28)
[2017-06-06] MEDS: Piperacill/Tazo 2.25gm in Dex 2.25 GM/50 ML BAG IVPB SCH ×3 (02:50→19:00)
--- NOTE | 2017-06-06 03:15 | PN ---
DATE: 06/05/2017 The patient is located in room 354, bed A. REQUESTED BY: Art Nathan M.D. SUBJECTIVE: Ms. Johnson is a 36-year-old young transgender female with past medical history significant for longstanding diabetes, hypertension, HIV positive, nephrotic range proteinuria, noncompliant to medication, was admitted with chronic osteomyelitis of the left leg and the patient denies any dizziness. Denies any chest pain or palpitation. Denies any fever or cough. No abdominal pain. No nausea, vomiting, or diarrhea. PHYSICAL EXAMINATION VITAL SIGNS: Include as follows: Blood pressure 149/91, pulse 89, respirations 20, temperature 98, and saturations 98%. Height 6 feet 3 inches and weight is 296 pounds. GENERAL: Ms. Johnson is a 36-year-old young transgender female, well built, well nourished, not in any distress. HEENT: Pupils normal, reactive to light and accommodation. Conjunctivae pink. Sclerae anicteric. Tongue is moist. Trachea is midline. LUNGS: Symmetric on both sides. Bilateral breath sounds present. Clear on auscultation. CARDIOVASCULAR: [place] at the fifth intercostal space, midclavicular line. S1 and S2 audible. No murmur or gallop. ABDOMEN: Normal in appearance, soft, tympanic. No guarding. No rigidity. No hepatosplenomegaly. CENTRAL NERVOUS SYSTEM: The patient is alert, awake, and oriented x3. Nonfocal neuro examination. Cranial nerves II through XII grossly intact. Sensory and motor system is within normal limits. EXTREMITIES: The patient has a dressing to the left leg. Leg was slightly swollen. Right leg, no edema. CURRENT MEDICATIONS: Include as follows: Benadryl 50 mg p.o. q.6 hours, Coreg 12.5 mg p.o. b.i.d., Epivir 150 mg p.o. daily, subcutaneous heparin 5000 units q.12 hours on hold, Lantus 16 units subcutaneously at bedtime, morphine 4 mg IV q.6 hours, Norvasc 5 mg daily, Tivicay 50 mg p.o. daily, Ziagen 300 mg p.o. b.i.d., Zoloft 50 mg p.o. daily, and Zosyn 2.25 gm IV q.8 hours. LABORATORY DATA: Include as follows: As of 06/05/2017, WBC 6.0, hemoglobin 11.4, hematocrit is 33.7, platelets 272, sodium 141, potassium 4.6, chloride 108, CO2 27, BUN 30, creatinine 2.9, glucose 145, calcium 8.8, and 24-hour urine collection volume is 2300 and creatinine clearance is 3.6, and serum creatinine 2.7. As of 06/05/2018, compliment level C3 is 104, C4 is 16 and 24-hour urine protein is pending and UPEP is pending. X-ray of the foot as of 06/03/2017, left foot radiograph status post first digit station for metatarsophalangeal joint level and the second, third, fourth, and fifth metatarsal prior surgical changes including portions of the fourth and fifth proximal phalanx similar in appearance. No interval periosteal reaction or interval cortical destruction seen strongly suggest interval osteomyelitis. Soft tissue findings consistent with ulcers and cellulitis. ASSESSMENT AND PLAN: In summary, Ms. Johnson is a 36-year-old young transgender female with hypertension, diabetes, human immunodeficiency virus-positive, depression, chronic osteomyelitis of the left leg with ulcers and cellulitis, was admitted with pain and low GFR, proteinuria, and increased BUN and creatinine. 1. Chronic kidney disease, stage III big, most likely secondary to diabetic nephropathy, cannot rule out underlying chronic human immunodeficiency virus associated nephropathy. 2. Uncontrolled diabetes. 3. Hypertension. 4. Human immunodeficiency virus. 5. Chronic osteomyelitis of the leg. Continue antibiotics and ask for Infectious Disease recommendation, Dr. Del Valle. Continue antiretroviral medications. We will follow up with you. Thank you for allowing me to participate in you patient's care. Weston Brambila MD [facility]
[2017-06-06 05:10] LABS: % CD4 (T HELPER CELL) 17 Percent (30-61); % CD8 (SUPPRESSOR T CELL) 70 Percent (12-42); ABSOLUTE CD4 CELLS 267 Cells/mcL (490-1740); ABSOLUTE CD8 CELLS 1125 Cells/mcL (180-1170); ABSOLUTE LYMPHOCYTES 1612 Cells/mcL (850-3900); HELPER/SUPPRESSOR RATIO 0.24 Ratio (0.86-5.00)
[2017-06-06] MEDS: (Novolog) Insulin Aspart, Recombinant 100 u/ml 10 ml vial SC SCH ×4 (08:23→22:00)
--- NOTE | 2017-06-06 12:11 | CP.PCM.PN ---
Subjective - Date & Time of Evaluation Date of Evaluation: 06/06/17 Time of Evaluation: 12:11 - Subjective Subjective: Podiatry Progress Note - Dr. Coy 36 year old female patient seen and evaluated at bedside for left lower extremity ulcerations and traumatically avulsed right 2nd digit nail. Patient resting in bed comfortably, NAD. No acute events overnight. Patient refusing dressing change today despite maximal encouragement. Patient aware she is scheduled for surgery tomorrow, and will be NPO after midnight. Denies N/V/F/D/C /SOB. Objective - Vital Signs/Intake and Output Vital Signs (last 24 hours): Temp Pulse Resp BP Pulse Ox 97.9 F 69 20 169/94 H 100 06/06/17 09:46 06/06/17 09:46 06/06/17 09:46 06/06/17 09:46 06/06/17 09:46 Intake and Output: 06/06/17 06/06/17 06:59 18:59 Intake Total 820 Output Total 850 Balance -30 - Medications Medications: Current Medications Abacavir Sulfate (Ziagen) 300 mg PO BID [facility] Last Admin: 06/06/17 10:08 Dose: Not Given Amlodipine Besylate (Norvasc) 5 mg PO DAILY [facility] Last Admin: 06/06/17 09:35 Dose: 5 mg Carvedilol (Coreg) 12.5 mg PO BID [facility] Last Admin: 06/06/17 09:35 Dose: 12.5 mg Diphenhydramine HCl (Benadryl) 50 mg PO Q6 PRN PRN Reason: itchiness Last Admin: 06/04/17 21:58 Dose: 50 mg Dolutegravir Sodium (Tivicay) 50 mg PO DAILY [facility] Last Admin: 06/06/17 10:08 Dose: Not Given Heparin Sodium (Porcine) (Heparin) 5,000 units SC Q12 [facility] Last Admin: 06/05/17 21:34 Dose: 5,000 units Piperacillin Sod/Tazobactam Sod (Zosyn 2.25 Gm Iv Premix) 2.25 gm in 50 mls @ 100 mls/hr IVPB Q8H [facility] Last Admin: 06/06/17 11:05 Dose: 100 mls/hr Insulin Aspart (Novolog) 0 unit SC ACHS [facility] PRN Reason: Protocol Last Admin: 06/06/17 08:23 Dose: Not Given Insulin Glargine (Lantus) 16 unit SC HS [facility] Last Admin: 06/05/17 21:35 Dose: 16 units Lamivudine (Epivir) 150 mg PO DAILY [facility] Last Admin: 06/06/17 10:07 Dose: Not Given Morphine Sulfate (Morphine) 4 mg IVP Q6 PRN PRN Reason: Pain, severe (8-10) Last Admin: 06/06/17 09:35 Dose: 4 mg Sertraline HCl (Zoloft) 50 mg PO DAILY [facility] Last Admin: 06/06/17 09:35 Dose: 50 mg - Labs Labs: 06/05/17 12:03 06/05/17 12:03 PT 11.3 SECONDS (9.7-12.2) 06/02/17 19:48 INR 1.0 06/02/17 19:48 APTT 30 SECONDS (21-34) 06/02/17 19:48 - Constitutional Appears: Well, Non-toxic, No Acute Distress - Extremities Exam Additional comments: Dressings intact - Neurological Exam Neurological Exam: Alert, Awake, Oriented x3 - Psychiatric Exam Psychiatric exam: Normal Affect, Normal Mood Assessment and Plan - Assessment and Plan (Free Text) Assessment: 36 year old female with 1) left lower extremity ulcerations 2) traumatically avulsed right 2nd digit nail, stable Plan: Patient seen and evaluated at bedside Discussed with attending, Dr. Coy Afebriarchana Xray IMPRESSION:No interval periosteal reaction or interval cortical destruction seen to strongly suggest interval osteomyelitis. Soft tissue findings consistent with ulcers and cellulitis Patient refused physical exam and dressing change despite maximal encouragement Patient to keep dressing clean/dry/intact, no WB on dressing Patient to WBAT in surgical shoe LLE, to be worn at all times - patient remains noncompliant despite education Left foot wound culture - (prelim) pseudomonas paucimobilis, gram positive cocci , corynebacterium species Patient to OR tomorrow, Wednesday06/07/17 @ 7:45 for left foot bone spur removal optimization in chart NPO @ mn Heparin held however patient continues to refuse administration despite education Podiatry will continue to follow while patient in house
--- NOTE | 2017-06-06 14:02 | CP.PCM.PN ---
Subjective - Date & Time of Evaluation Date of Evaluation: 06/06/17 Time of Evaluation: 08:00 - Subjective Subjective: STATES SHE IS REFUSING ANTIVIRALS IV ANTIBIOTICS REORDERED Objective - Vital Signs/Intake and Output Vital Signs (last 24 hours): Temp Pulse Resp BP Pulse Ox 97.9 F 69 20 169/94 H 100 06/06/17 09:46 06/06/17 09:46 06/06/17 09:46 06/06/17 09:46 06/06/17 09:46 Intake and Output: 06/06/17 06/06/17 06:59 18:59 Intake Total 820 Output Total 850 Balance -30 - Medications Medications: Current Medications Abacavir Sulfate (Ziagen) 300 mg PO BID [facility] Last Admin: 06/06/17 10:08 Dose: Not Given Amlodipine Besylate (Norvasc) 5 mg PO DAILY [facility] Last Admin: 06/06/17 09:35 Dose: 5 mg Carvedilol (Coreg) 12.5 mg PO BID [facility] Last Admin: 06/06/17 09:35 Dose: 12.5 mg Diphenhydramine HCl (Benadryl) 50 mg PO Q6 PRN PRN Reason: itchiness Last Admin: 06/04/17 21:58 Dose: 50 mg Dolutegravir Sodium (Tivicay) 50 mg PO DAILY [facility] Last Admin: 06/06/17 10:08 Dose: Not Given Heparin Sodium (Porcine) (Heparin) 5,000 units SC Q12 [facility] Last Admin: 06/05/17 21:34 Dose: 5,000 units Piperacillin Sod/Tazobactam Sod (Zosyn 2.25 Gm Iv Premix) 2.25 gm in 50 mls @ 100 mls/hr IVPB Q8H [facility] Last Admin: 06/06/17 11:05 Dose: 100 mls/hr Insulin Aspart (Novolog) 0 unit SC ACHS [facility] PRN Reason: Protocol Last Admin: 06/06/17 12:30 Dose: Not Given Insulin Glargine (Lantus) 16 unit SC HS [facility] Last Admin: 06/05/17 21:35 Dose: 16 units Lamivudine (Epivir) 150 mg PO DAILY [facility] Last Admin: 06/06/17 10:07 Dose: Not Given Morphine Sulfate (Morphine) 4 mg IVP Q6 PRN PRN Reason: Pain, severe (8-10) Last Admin: 06/06/17 09:35 Dose: 4 mg Sertraline HCl (Zoloft) 50 mg PO DAILY [facility] Last Admin: 06/06/17 09:35 Dose: 50 mg - Labs Labs: 06/05/17 12:03 06/05/17 12:03 PT 11.3 SECONDS (9.7-12.2) 06/02/17 19:48 INR 1.0 06/02/17 19:48 APTT 30 SECONDS (21-34) 06/02/17 19:48 - Constitutional Appears: Chronically Ill - Head Exam Head Exam: NORMAL INSPECTION - Eye Exam Eye Exam: PERRL - ENT Exam ENT Exam: Mucous Membranes Dry - Neck Exam Neck Exam: absent: Lymphadenopathy - Respiratory Exam Respiratory Exam: Decreased Breath Sounds - Cardiovascular Exam Cardiovascular Exam: REGULAR RHYTHM - GI/Abdominal Exam GI & Abdominal Exam: Distended, Soft - Rectal Exam Rectal Exam: Deferred - Exam Exam: NORMAL INSPECTION - Extremities Exam Extremities Exam: Full ROM. absent: Normal Capillary Refill Additional comments: Dressing to LLE dirty, intact Vasc: DP and PT pulses non-palpable , Temp gradient warm to warm from proximal to distal. Capillary fill time is diminished. Mild to moderate non-pitting edema noted to L foot. No edema noted to right 2nd digit. Derm: Ulceration noted to the lateral aspect of left foot sub 5th metatarsal. No malodor noted. No purulence, no erythema, no undermining. Superficial ulceration noted on lateral aspect of the left leg measuring approximately 10 cm by 5 cm with a granular/fibrotic base with minimal serosanguinous drainage noted; absent purulence and malodor. Ulceration noted to the plantar aspect of the left foot measuring approximately 5 cm by 5 cm with granular/fibrotic base, mild amount of drainage noted, mild malodor odor present. Total avulsion of right nail 2 with exposed nail bed; dried, crusted blood present along nail grooves; absent erythema; no drainage, no purulence, no fluctuance, no clinical suspicions for active infection. Neuro: Protective sensation grossly diminished - Back Exam Back Exam: absent: CVA tenderness (L), CVA tenderness (R) Assessment and Plan (1) Diabetic foot infection Status: Acute (2) Osteomyelitis of ankle or foot, acute Status: Acute (3) Chronic ulcer of left leg Status: Chronic (4) Uncontrolled diabetes mellitus Status: Chronic (5) GAEL (acute kidney injury) Status: Acute (6) Abscess and cellulitis Status: Acute - Assessment and Plan (Free Text) Assessment: CONT IV ANTIBIOTICS AND WOUND CARE AWAIT T CELLS AND VIRAL LOAD FOR OR IN AM
[2017-06-06] MEDS: (Lantus) Insulin Glargine, Recombinant SC SCH (23:28)
[2017-06-07] MEDS: Piperacill/Tazo 2.25gm in Dex 2.25 GM/50 ML BAG IVPB SCH ×3 (03:45→19:00)
[2017-06-07] MEDS: Morphine 4 MG/ML VIAL IVP PRN ×4 (05:00→23:30)
[2017-06-07] MEDS ORDERED: ceFAZolin 1 gm in NS 0 GM/0 ML BAG IVPB ONE (07:31)
[2017-06-07] MEDS ORDERED: Lidocaine 1% Inj (20ml) ONE (07:31)
[2017-06-07] MEDS ORDERED: Bupivacaine HCl 0.5% PF (10 ml) Inj ONE (07:31)
--- NOTE | 2017-06-07 07:47 | CP.PCM.PN ---
Subjective - Date & Time of Evaluation Date of Evaluation: 06/07/17 Time of Evaluation: 08:48 - Subjective Subjective: Podiatry Progress Note - Dr. Coy 36 year old female patient seen and evaluated at bedside for left lower extremity ulcerations and traumatically avulsed right 2nd digit nail. Patient resting in bed comfortably, NAD. No acute events overnight. Patient is due for Left foot wound debridement with resection of bone today 7: 45am. Anesthesiologist Dr. Luke had noticed that patient was chewing gum and then swallowed it while obtaining anesthesia consent. Anesthesiologist recommends to push surgery to 9:30am for any deep sedation. Patient was again advised not to eat or drink anything before the surgery. Patient and podiatry team agrees with the surgery plan for 9:30am. Denies N/V/F/D/C/SOB. Objective - Vital Signs/Intake and Output Vital Signs (last 24 hours): Temp Pulse Resp BP Pulse Ox 98.6 F 84 20 167/98 H 99 06/07/17 06:00 06/07/17 06:00 06/07/17 06:00 06/07/17 06:15 06/07/17 06:00 Intake and Output: 06/07/17 06/07/17 06:59 18:59 Intake Total 570 Balance 570 - Medications Medications: Current Medications Abacavir Sulfate (Ziagen) 300 mg PO BID [facility] Last Admin: 06/06/17 17:50 Dose: 300 mg Amlodipine Besylate (Norvasc) 5 mg PO DAILY [facility] Last Admin: 06/06/17 09:35 Dose: 5 mg Carvedilol (Coreg) 12.5 mg PO BID [facility] Last Admin: 06/07/17 06:15 Dose: 12.5 mg Diphenhydramine HCl (Benadryl) 50 mg PO Q6 PRN PRN Reason: itchiness Last Admin: 06/04/17 21:58 Dose: 50 mg Dolutegravir Sodium (Tivicay) 50 mg PO DAILY [facility] Last Admin: 06/06/17 10:08 Dose: Not Given Heparin Sodium (Porcine) (Heparin) 5,000 units SC Q12 [facility] Last Admin: 06/05/17 21:34 Dose: 5,000 units Piperacillin Sod/Tazobactam Sod (Zosyn 2.25 Gm Iv Premix) 2.25 gm in 50 mls @ 100 mls/hr IVPB Q8H [facility] Last Admin: 06/07/17 03:45 Dose: 100 mls/hr Insulin Aspart (Novolog) 0 unit SC ACHS [facility] PRN Reason: Protocol Last Admin: 06/06/17 17:51 Dose: Not Given Insulin Glargine (Lantus) 16 unit SC HS [facility] Last Admin: 06/06/17 23:28 Dose: Not Given Lamivudine (Epivir) 150 mg PO DAILY [facility] Last Admin: 06/06/17 10:07 Dose: Not Given Morphine Sulfate (Morphine) 4 mg IVP Q6 PRN PRN Reason: Pain, severe (8-10) Last Admin: 06/07/17 05:00 Dose: 4 mg Sertraline HCl (Zoloft) 50 mg PO DAILY [facility] Last Admin: 06/06/17 09:35 Dose: 50 mg - Labs Labs: 06/05/17 12:03 06/05/17 12:03 PT 11.3 SECONDS (9.7-12.2) 06/02/17 19:48 INR 1.0 06/02/17 19:48 APTT 30 SECONDS (21-34) 06/02/17 19:48 - Constitutional Appears: Well, Non-toxic, No Acute Distress - Head Exam Head Exam: ATRAUMATIC - Extremities Exam Additional comments: Left lower extremity exam Dressings intact - Neurological Exam Neurological Exam: Alert, Awake - Psychiatric Exam Psychiatric exam: Normal Affect, Normal Mood - Skin Skin Exam: Normal Color, Warm Assessment and Plan - Assessment and Plan (Free Text) Assessment: 36 year old female with 1) left lower extremity ulcerations 2) traumatically avulsed right 2nd digit nail, stable Plan: Patient seen and evaluated at bedside Discussed with attending, Dr. Coy Afebrile Xray IMPRESSION: Possible osteomyelitis; not definitive. Soft tissue findings consistent with ulcers and cellulitis Patient refused physical exam and dressing change despite maximal encouragement Patient to keep dressing clean/dry/intact, no WB on dressing Patient to WBAT in surgical shoe LLE, to be worn at all times - patient remains noncompliant despite repeated education Left foot wound culture - (prelim) pseudomonas paucimobilis, gram positive cocci , corynebacterium species Patient to OR today 9:30am; case pushed 2hours per anesthesiologist Dr. Luke ( Patient swallowed gum) optimization in chart NPO @ mn Heparin held Podiatry will continue to follow while patient in house
[2017-06-07] MEDS: (Novolog) Insulin Aspart, Recombinant 100 u/ml 10 ml vial SC SCH ×4 (08:14→22:35)
[2017-06-07] MEDS ORDERED: Piperacillin/Tazobact 3.375 gm 100 ML IVPB ONE (09:39)
[2017-06-07] MEDS ORDERED: Midazolam 2 MG/2 ML VIAL ONE ×2 (09:42→10:16)
[2017-06-07] MEDS ORDERED: Propofol 10 mg/ml Inj (20 ML) ONE ×2 (09:42→10:03)
--- NOTE | 2017-06-07 11:07 | PCM.SURG1 ---
Surgeon's Initial Post Op Note - Surgeon's Notes Surgeon: Dr. Kalpesh Coy DPM [employer] Data Entry: Dr. Larisa Nathan DPM PGY-1 Type of Anesthesia: IV Sedation, Local Anesthesia Administered By: Dr. Ti COPPOLA Pre-Operative Diagnosis: Osteomyelitis of the left foot 5th metatarsal Operative Findings: See dictation. M: 1/4 inch iodoform packing, 3-0 vicryl, 3- 0 nylone. I: 18 cc of 1:1 1% lidocaine plain : 0.5% marcain plain - pre-op. T : 39 min at midcal[place] level Post-Operative Diagnosis: Same Operation Performed: Left foot 5th metatarsal resection Specimen/Specimens Removed: left foot 5th metatarsal Estimated Blood Loss: EBL {In ML}: 30 Blood Products Given: N/A Drains Used: No Drains Post-Op Condition: Good Date of Surgery/Procedure: 06/07/17 Time of Surgery/Procedure: 11:11
[2017-06-07] MEDS ORDERED: HYDROmorphone 0.5 mg/0.5 ml ISec IVP PRN (11:10)
--- NOTE | 2017-06-07 12:19 | CP.PCM.PN ---
Subjective - Date & Time of Evaluation Date of Evaluation: 06/06/17 Time of Evaluation: 11:00 - Subjective Subjective: CONDITION SAME. AFEBRILE. FOR OR IN THE MORNING. Objective - Vital Signs/Intake and Output Vital Signs (last 24 hours): Temp Pulse Resp BP Pulse Ox 97.6 F 64 10 L 141/88 98 06/07/17 11:30 06/07/17 11:30 06/07/17 11:30 06/07/17 11:30 06/07/17 11:30 Intake and Output: 06/07/17 06/07/17 06:59 18:59 Intake Total 570 450 Balance 570 450 - Medications Medications: Current Medications Abacavir Sulfate (Ziagen) 300 mg PO BID [facility] Last Admin: 06/07/17 10:05 Dose: Not Given Amlodipine Besylate (Norvasc) 5 mg PO DAILY [facility] Last Admin: 06/07/17 10:05 Dose: Not Given Carvedilol (Coreg) 12.5 mg PO BID [facility] Last Admin: 06/07/17 10:05 Dose: Not Given Diphenhydramine HCl (Benadryl) 50 mg PO Q6 PRN PRN Reason: itchiness Last Admin: 06/04/17 21:58 Dose: 50 mg Dolutegravir Sodium (Tivicay) 50 mg PO DAILY [facility] Last Admin: 06/07/17 10:05 Dose: Not Given Heparin Sodium (Porcine) (Heparin) 5,000 units SC Q12 [facility] Last Admin: 06/05/17 21:34 Dose: 5,000 units Hydromorphone HCl (Dilaudid) 0.5 mg IVP Q10M PRN PRN Reason: Pain, moderate (4-7) Stop: 06/07/17 13:11 Piperacillin Sod/Tazobactam Sod (Zosyn 2.25 Gm Iv Premix) 2.25 gm in 50 mls @ 100 mls/hr IVPB Q8H [facility] Last Admin: 06/07/17 10:15 Dose: 50 mls Lactated Ringer's (Lactated Ringer's) 1,000 mls @ 150 mls/hr IV .Q6H40M [facility] Insulin Aspart (Novolog) 0 unit SC ACHS [facility] PRN Reason: Protocol Last Admin: 06/07/17 08:14 Dose: Not Given Insulin Glargine (Lantus) 16 unit SC HS [facility] Last Admin: 06/06/17 23:28 Dose: Not Given Lamivudine (Epivir) 150 mg PO DAILY [facility] Last Admin: 06/07/17 10:05 Dose: Not Given Morphine Sulfate (Morphine) 4 mg IVP Q6 PRN PRN Reason: Pain, severe (8-10) Ondansetron HCl (Zofran Inj) 4 mg IVP ONCE PRN PRN Reason: Nausea/Vomiting Stop: 06/07/17 13:12 Sertraline HCl (Zoloft) 50 mg PO DAILY [facility] Last Admin: 06/07/17 10:06 Dose: Not Given - Labs Labs: 06/05/17 12:03 06/05/17 12:03 PT 11.3 SECONDS (9.7-12.2) 06/02/17 19:48 INR 1.0 06/02/17 19:48 APTT 30 SECONDS (21-34) 06/02/17 19:48 - Constitutional Appears: No Acute Distress, Chronically Ill - Eye Exam Eye Exam: PERRL - ENT Exam ENT Exam: Mucous Membranes Moist, Normal Exam - Neck Exam Neck Exam: Full ROM, Normal Inspection. absent: Lymphadenopathy - Respiratory Exam Respiratory Exam: Clear to Ausculation Bilateral, NORMAL BREATHING PATTERN - Cardiovascular Exam Cardiovascular Exam: REGULAR RHYTHM, +S1, +S2. absent: Murmur - GI/Abdominal Exam GI & Abdominal Exam: Soft, Normal Bowel Sounds. absent: Tenderness - Extremities Exam Extremities Exam: Full ROM, Normal Capillary Refill, Normal Inspection. absent : Joint Swelling, Pedal Edema - Back Exam Back Exam: NORMAL INSPECTION Assessment and Plan - Assessment and Plan (Free Text) Assessment: OM LT FOOT. Plan: FOR OR BY DR. REYES.
--- NOTE | 2017-06-07 12:21 | CP.PCM.PN ---
Subjective - Date & Time of Evaluation Date of Evaluation: 06/07/17 Time of Evaluation: 12:19 - Subjective Subjective: POST OP. AWAKE COMFORTABLE. MILD FOOT PAIN. AFEBRILE. BP WNL. Objective - Vital Signs/Intake and Output Vital Signs (last 24 hours): Temp Pulse Resp BP Pulse Ox 97.6 F 64 10 L 141/88 98 06/07/17 11:30 06/07/17 11:30 06/07/17 11:30 06/07/17 11:30 06/07/17 11:30 Intake and Output: 06/07/17 06/07/17 06:59 18:59 Intake Total 570 450 Balance 570 450 - Medications Medications: Current Medications Abacavir Sulfate (Ziagen) 300 mg PO BID [facility] Last Admin: 06/07/17 10:05 Dose: Not Given Amlodipine Besylate (Norvasc) 5 mg PO DAILY [facility] Last Admin: 06/07/17 10:05 Dose: Not Given Carvedilol (Coreg) 12.5 mg PO BID [facility] Last Admin: 06/07/17 10:05 Dose: Not Given Diphenhydramine HCl (Benadryl) 50 mg PO Q6 PRN PRN Reason: itchiness Last Admin: 06/04/17 21:58 Dose: 50 mg Dolutegravir Sodium (Tivicay) 50 mg PO DAILY [facility] Last Admin: 06/07/17 10:05 Dose: Not Given Heparin Sodium (Porcine) (Heparin) 5,000 units SC Q12 [facility] Last Admin: 06/05/17 21:34 Dose: 5,000 units Hydromorphone HCl (Dilaudid) 0.5 mg IVP Q10M PRN PRN Reason: Pain, moderate (4-7) Stop: 06/07/17 13:11 Piperacillin Sod/Tazobactam Sod (Zosyn 2.25 Gm Iv Premix) 2.25 gm in 50 mls @ 100 mls/hr IVPB Q8H [facility] Last Admin: 06/07/17 10:15 Dose: 50 mls Lactated Ringer's (Lactated Ringer's) 1,000 mls @ 150 mls/hr IV .Q6H40M [facility] Insulin Aspart (Novolog) 0 unit SC ACHS [facility] PRN Reason: Protocol Last Admin: 06/07/17 08:14 Dose: Not Given Insulin Glargine (Lantus) 16 unit SC HS [facility] Last Admin: 06/06/17 23:28 Dose: Not Given Lamivudine (Epivir) 150 mg PO DAILY [facility] Last Admin: 06/07/17 10:05 Dose: Not Given Morphine Sulfate (Morphine) 4 mg IVP Q6 PRN PRN Reason: Pain, severe (8-10) Ondansetron HCl (Zofran Inj) 4 mg IVP ONCE PRN PRN Reason: Nausea/Vomiting Stop: 06/07/17 13:12 Sertraline HCl (Zoloft) 50 mg PO DAILY [facility] Last Admin: 06/07/17 10:06 Dose: Not Given - Labs Labs: 06/05/17 12:03 06/05/17 12:03 PT 11.3 SECONDS (9.7-12.2) 06/02/17 19:48 INR 1.0 06/02/17 19:48 APTT 30 SECONDS (21-34) 06/02/17 19:48 - Constitutional Appears: No Acute Distress, Chronically Ill - Eye Exam Eye Exam: EOMI, Normal appearance, PERRL Pupil Exam: NORMAL ACCOMODATION, PERRL - ENT Exam ENT Exam: Mucous Membranes Moist, Normal Exam - Neck Exam Neck Exam: Full ROM, Normal Inspection. absent: Lymphadenopathy - Respiratory Exam Respiratory Exam: Clear to Ausculation Bilateral, NORMAL BREATHING PATTERN - Cardiovascular Exam Cardiovascular Exam: REGULAR RHYTHM, +S1, +S2. absent: Murmur - GI/Abdominal Exam GI & Abdominal Exam: Soft, Normal Bowel Sounds. absent: Tenderness - Extremities Exam Extremities Exam: Full ROM, Normal Capillary Refill, Normal Inspection. absent : Joint Swelling, Pedal Edema - Back Exam Back Exam: NORMAL INSPECTION Assessment and Plan - Assessment and Plan (Free Text) Assessment: STABLE. Plan: CT IV ANTIBIOTICS.
--- NOTE | 2017-06-07 12:37 | CP.PCM.PN ---
Subjective - Date & Time of Evaluation Date of Evaluation: 06/07/17 Time of Evaluation: 06:00 - Subjective Subjective: s/p OR cont IV rx Objective - Vital Signs/Intake and Output Vital Signs (last 24 hours): Temp Pulse Resp BP Pulse Ox 97.6 F 64 10 L 141/88 98 06/07/17 11:30 06/07/17 11:30 06/07/17 11:30 06/07/17 11:30 06/07/17 11:30 Intake and Output: 06/07/17 06/07/17 06:59 18:59 Intake Total 570 450 Balance 570 450 - Medications Medications: Current Medications Abacavir Sulfate (Ziagen) 300 mg PO BID [facility] Last Admin: 06/07/17 10:05 Dose: Not Given Amlodipine Besylate (Norvasc) 5 mg PO DAILY [facility] Last Admin: 06/07/17 10:05 Dose: Not Given Carvedilol (Coreg) 12.5 mg PO BID [facility] Last Admin: 06/07/17 10:05 Dose: Not Given Diphenhydramine HCl (Benadryl) 50 mg PO Q6 PRN PRN Reason: itchiness Last Admin: 06/04/17 21:58 Dose: 50 mg Dolutegravir Sodium (Tivicay) 50 mg PO DAILY [facility] Last Admin: 06/07/17 10:05 Dose: Not Given Heparin Sodium (Porcine) (Heparin) 5,000 units SC Q12 [facility] Last Admin: 06/05/17 21:34 Dose: 5,000 units Hydromorphone HCl (Dilaudid) 0.5 mg IVP Q10M PRN PRN Reason: Pain, moderate (4-7) Stop: 06/07/17 13:11 Piperacillin Sod/Tazobactam Sod (Zosyn 2.25 Gm Iv Premix) 2.25 gm in 50 mls @ 100 mls/hr IVPB Q8H [facility] Last Admin: 06/07/17 10:15 Dose: 50 mls Lactated Ringer's (Lactated Ringer's) 1,000 mls @ 150 mls/hr IV .Q6H40M [facility] Insulin Aspart (Novolog) 0 unit SC ACHS [facility] PRN Reason: Protocol Last Admin: 06/07/17 12:31 Dose: Not Given Insulin Glargine (Lantus) 16 unit SC HS [facility] Last Admin: 06/06/17 23:28 Dose: Not Given Lamivudine (Epivir) 150 mg PO DAILY [facility] Last Admin: 06/07/17 10:05 Dose: Not Given Morphine Sulfate (Morphine) 4 mg IVP Q6 PRN PRN Reason: Pain, severe (8-10) Ondansetron HCl (Zofran Inj) 4 mg IVP ONCE PRN PRN Reason: Nausea/Vomiting Stop: 06/07/17 13:12 Sertraline HCl (Zoloft) 50 mg PO DAILY [facility] Last Admin: 06/07/17 10:06 Dose: Not Given - Labs Labs: 06/05/17 12:03 06/05/17 12:03 PT 11.3 SECONDS (9.7-12.2) 06/02/17 19:48 INR 1.0 06/02/17 19:48 APTT 30 SECONDS (21-34) 06/02/17 19:48 - Constitutional Appears: Non-toxic, Chronically Ill - Head Exam Head Exam: NORMOCEPHALIC - Eye Exam Eye Exam: PERRL - ENT Exam ENT Exam: Mucous Membranes Dry - Neck Exam Neck Exam: absent: Lymphadenopathy - Respiratory Exam Respiratory Exam: Decreased Breath Sounds - Cardiovascular Exam Cardiovascular Exam: REGULAR RHYTHM - GI/Abdominal Exam GI & Abdominal Exam: Distended, Soft - Rectal Exam Rectal Exam: Deferred Assessment and Plan (1) Diabetic foot infection Status: Acute (2) Osteomyelitis of ankle or foot, acute Status: Acute (3) Chronic ulcer of left leg Status: Chronic (4) Uncontrolled diabetes mellitus Status: Chronic (5) GAEL (acute kidney injury) Status: Acute (6) Abscess and cellulitis Status: Acute
[2017-06-07] MEDS: Lactated Ringer's 1,000 ML IV SCH (12:38)
[2017-06-07 17:16] VITALS: RESP 20
--- NOTE | 2017-06-07 17:33 | RAD ---
Left foot radiographs Indication: Status post left foot surgery Comparison: Left foot radiographs performed 06/03/17 Findings: Extensive postsurgical changes and abnormalities of the left foot. The patient has undergone 1st digit amputation at the metatarsophalangeal joint level. The 2nd, 3rd, 4th, and 5th metatarsals demonstrate prior surgical changes. Apparent interval additional resection at the level of the 5th metatarsal. Marked soft tissue swelling. Lucency at the level of the 5th metatarsal may reflect air status post recent surgery. No evidence of radiopaque foreign body. Regions of patchy increased sclerosis and productive changes re-identified. Impression: Postsurgical changes as described above.
--- NOTE | 2017-06-07 18:10 | CP.PCM.PN ---
Subjective - Date & Time of Evaluation Date of Evaluation: 06/07/17 Time of Evaluation: 18:09 - Subjective Subjective: pt is seen and examined, follow up consult is dictated #[id number] Objective - Vital Signs/Intake and Output Vital Signs (last 24 hours): Temp Pulse Resp BP Pulse Ox 98.8 F 90 20 161/91 H 98 06/07/17 17:13 06/07/17 17:13 06/07/17 17:13 06/07/17 17:46 06/07/17 17:13 Intake and Output: 06/07/17 06/07/17 06:59 18:59 Intake Total 570 1350 Balance 570 1350 - Medications Medications: Current Medications Abacavir Sulfate (Ziagen) 300 mg PO BID [facility] Last Admin: 06/07/17 17:45 Dose: 300 mg Amlodipine Besylate (Norvasc) 5 mg PO DAILY [facility] Last Admin: 06/07/17 10:05 Dose: Not Given Carvedilol (Coreg) 12.5 mg PO BID [facility] Last Admin: 06/07/17 17:46 Dose: 12.5 mg Diphenhydramine HCl (Benadryl) 50 mg PO Q6 PRN PRN Reason: itchiness Last Admin: 06/04/17 21:58 Dose: 50 mg Dolutegravir Sodium (Tivicay) 50 mg PO DAILY [facility] Last Admin: 06/07/17 10:05 Dose: Not Given Heparin Sodium (Porcine) (Heparin) 5,000 units SC Q12 [facility] Last Admin: 06/05/17 21:34 Dose: 5,000 units Piperacillin Sod/Tazobactam Sod (Zosyn 2.25 Gm Iv Premix) 2.25 gm in 50 mls @ 100 mls/hr IVPB Q8H [facility] Last Admin: 06/07/17 10:15 Dose: 50 mls Lactated Ringer's (Lactated Ringer's) 1,000 mls @ 150 mls/hr IV .Q6H40M [facility] Last Admin: 06/07/17 12:38 Dose: 150 mls/hr Insulin Aspart (Novolog) 0 unit SC ACHS [facility] PRN Reason: Protocol Last Admin: 06/07/17 17:47 Dose: Not Given Insulin Glargine (Lantus) 16 unit SC HS [facility] Last Admin: 06/06/17 23:28 Dose: Not Given Lamivudine (Epivir) 150 mg PO DAILY [facility] Last Admin: 06/07/17 10:05 Dose: Not Given Morphine Sulfate (Morphine) 4 mg IVP Q6 PRN PRN Reason: Pain, severe (8-10) Last Admin: 06/07/17 17:43 Dose: 4 mg Sertraline HCl (Zoloft) 50 mg PO DAILY [facility] Last Admin: 06/07/17 10:06 Dose: Not Given - Labs Labs: 06/05/17 12:03 06/05/17 12:03 PT 11.3 SECONDS (9.7-12.2) 06/02/17 19:48 INR 1.0 06/02/17 19:48 APTT 30 SECONDS (21-34) 06/02/17 19:48
[2017-06-07] MEDS: (Lantus) Insulin Glargine, Recombinant SC SCH (22:34)
[2017-06-08] MEDS: Lactated Ringer's 1,000 ML IV SCH ×4 (00:30→20:35)
[2017-06-08] MEDS: Piperacill/Tazo 2.25gm in Dex 2.25 GM/50 ML BAG IVPB SCH ×3 (03:43→19:36)
[2017-06-08] MEDS: Morphine 4 MG/ML VIAL IVP PRN ×4 (04:35→19:40)
--- NOTE | 2017-06-08 06:49 | PN ---
DATE: 06/07/2017 FOLLOWUP RENAL CONSULTATION HISTORY OF PRESENT ILLNESS: Mrs. Johnson is a 36 years old young obese female transgender with past medical history significant for hypertension, diabetes, HIV positive, chronic kidney disease, massive proteinuria more than 4 grams in the last 24-hour urine collection with chronic osteomyelitis of the leg who was admitted with pain and swelling of the left leg. The patient is not in distress, complains of cough and feeling chills this evening. No fever. No chest pain. No palpitation. No nausea, vomiting, or diarrhea. PHYSICAL EXAMINATION: VITAL SIGNS: As follows, blood pressure 160/91, pulse 90, respirations 20, temperature 98.8, saturation 98%. Height 6 feet 3 inches and weight is 296 pounds. GENERAL: Mrs. Johnson is 36 years old young female, transgender, well built, well nourished, not in distress. HEENT: Pupils normal and reactive to light and accommodation. Conjunctivae pink. Sclerae anicteric. Tongue is moist. Trachea midline. LUNGS: Symmetric on both sides. Bilateral breath sounds present. Clear on auscultation. CVS: [place] at the fifth intercostal space of intermediate midclavicular line. S1, S2 audible. No murmur. No gallop. ABDOMEN: Normal in appearance, soft, tympanic. No guarding. No rigidity. No hepatosplenomegaly. MEDICAL INSURANCE CLAIMS SPECIALIST: The patient is alert, awake, and oriented x3. Nonfocal neuro examination. Cranial nerves II through XII grossly intact. Sensory and motor system is within normal limits. EXTREMITIES: The patient has a dressing to the left leg and left leg was slightly swollen. CURRENT MEDICATIONS: Include as follows, Benadryl 50 mg p.o. q.6 hours, Coreg 12.5 mg p.o. b.i.d., Epivir 150 mg p.o. daily, heparin on hold, Ringer's lactate at 150 mL per hour, Lantus 60 units subcu at bedtime, morphine 4 mg IV q.6 hours p.r.n., amlodipine 5 mg p.o. daily, 50 mg p.o. daily, Abacavir Sulfate which is Ziagen 300 mg p.o. b.i.d., Zoloft 50 mg p.o. daily, Zosyn 2.25 gm IV q.8 hours. LABORATORY DATA: No new labs are available for today, and Accu-Cheks 113, 96, and 122. X-ray of the foot as of 06/07/2017, extensive postsurgical changes and abnormalities of the left foot. The patient has undergone first digit amputation at the metatarsophalangeal joint level; and second, third, fourth, fifth metatarsal demonstrate prior surgical changes at apparent interval, additional resection at the level of the fifth metatarsal, marked soft tissue swelling and lucency at the level of the fifth metatarsal may reflect status post recent surgery, no a evidence of radio-opaque foreign body. IMPRESSION: In summary, Mrs. Johnson is 36 years old young transgender female with hypertension, diabetes, chronic kidney disease, proteinuria, human immunodeficiency virus positive, chronic osteomyelitis of the leg who was admitted with pain and swelling of the left foot, found to have osteomyelitis of the left fifth metatarsal. The patient underwent left fifth metatarsal resection today. 1. Chronic kidney disease stage III, most likely secondary to diabetic nephropathy, cannot rule out underlying human immunodeficiency virus associated nephropathy. 2. Hypertension. 3. Human immunodeficiency virus. Continue antiretroviral medication as per Dr. Del Valle. 4. Left foot osteomyelitis, status post amputation of the left fifth metatarsal. Continue the analgesics as needed and follow with Podiatry. We will follow with you. Thank you for allowing me to participate in your patient's care. MIKIE was negative. C3 and C4 within normal limits. Awaiting for the 24-hour urine collection and UPEP results. Weston Brambila MD
[2017-06-08] MEDS: (Novolog) Insulin Aspart, Recombinant 100 u/ml 10 ml vial SC SCH ×4 (08:13→21:36)
--- NOTE | 2017-06-08 09:48 | OP ---
PROCEDURE DATE: 06/07/2017 SURGEON: Kalpesh Coy DPM INVENTORY ANALYST: Larisa Nathan DPM, PGY-1 ANESTHESIA ADMINISTERED BY: Dr. Luke. TYPE OF ANESTHESIA: IV sedation with local. PREOPERATIVE DIAGNOSIS: Left foot fifth metatarsal osteomyelitis. POSTOPERATIVE DIAGNOSIS: Left foot fifth metatarsal osteomyelitis. NAME OF THE PROCEDURE: Left foot fifth metatarsal resection. INDICATIONS: The patient is a 36-year-old female with the above diagnosis. The patient has exhausted all conservative treatment at this time and now requires surgical intervention. The patient signed the consent after careful explanation of risks, benefits, complications, and alternatives for surgical procedure. No guarantees were given nor implied, n.p.o. status was confirmed prior to taking the patient to the OR. PREPARATION: The patient was brought into the operating room table and was placed on the operating room table in supine position. A timeout was performed for identification of the correct patient and the procedure. The patient received a total of 18 mL of 1:1 mixture of 1% lidocaine plain and 0.5% Marcaine plain in a local ring block fashion to the left lateral foot. Tourniquet was applied at the mid calf level. Once the anesthesia was achieved, the left foot was then prepped and draped in a normal sterile manner and the procedure began. DESCRIPTION OF PROCEDURE: Esmarch was used to exsanguinate the blood and the tourniquet was inflated at 250 mmHg pressure. Attention was then directed to the patient's left lateral foot where an incision was planned using a marking pen, which extended from the level of MTPJ to the base of the fifth metatarsal. Using a #15 blade, a linear incision was made down to the level of the bone on the planned incision site. Next utilizing a periosteal ibarra elevator, all the periosteal tissue was carefully resected off fifth metatarsal. At this time, a towel clamp was utilized to stabilize the fifth metatarsal and a sagittal saw was used to resect the fifth metatarsal. The fifth metatarsal was resected into multiple fragments due to the incision placement and scar and thickened subcutaneous tissue. All the devitalized tissue and the bone were then passed from the operative field to pathology. All the spicules were removed using Rongeur. All the bony edges were smoothened using sagittal saw to prevent any pressure points. The wound was then flushed with copious amount of sterile normal saline. The subcutaneous tissue was then reapproximated with 3-0 Vicryl. Next, a 3-0 Prolene was used to reapproximate the skin with the simple suture technique. Small incision was left open proximally where a 0.25 inch iodoform packing was inserted. The surgical site was then dressed with Xeroform, 4x4 gauze, ABD cling and Coban. Another layer of Kerlix and Coban was used. The tourniquet was then let down at 39 minutes. POSTOPERATIVE CONDITION: The patient tolerated the anesthesia and procedure well and was escorted to the recovery room with vital signs stable and neurovascular status intact to the left foot. The patient will return to the floor where the patient will be followed up daily. Larisa Nathan DPM Kalpesh Coy DPM [facility]
--- NOTE | 2017-06-08 10:58 | CP.PCM.PN ---
Subjective - Date & Time of Evaluation Date of Evaluation: 06/08/17 Time of Evaluation: 10:58 - Subjective Subjective: pt is seen and examined, follow up consult is dictated #[id number] Objective - Vital Signs/Intake and Output Vital Signs (last 24 hours): Temp Pulse Resp BP Pulse Ox 101 F H 91 H 20 165/85 H 97 06/08/17 08:34 06/08/17 08:34 06/08/17 08:34 06/08/17 10:12 06/08/17 08:34 Intake and Output: 06/08/17 06/08/17 06:59 18:59 Intake Total 600 290 Output Total 1800 Balance -1200 290 - Medications Medications: Current Medications Abacavir Sulfate (Ziagen) 300 mg PO BID [facility] Last Admin: 06/08/17 10:13 Dose: 300 mg Amlodipine Besylate (Norvasc) 5 mg PO DAILY [facility] Last Admin: 06/08/17 10:12 Dose: 5 mg Carvedilol (Coreg) 12.5 mg PO BID [facility] Last Admin: 06/08/17 10:12 Dose: 12.5 mg Diphenhydramine HCl (Benadryl) 50 mg PO Q6 PRN PRN Reason: itchiness Last Admin: 06/04/17 21:58 Dose: 50 mg Dolutegravir Sodium (Tivicay) 50 mg PO DAILY [facility] Last Admin: 06/08/17 10:13 Dose: 50 mg Heparin Sodium (Porcine) (Heparin) 5,000 units SC Q12 [facility] Last Admin: 06/05/17 21:34 Dose: 5,000 units Piperacillin Sod/Tazobactam Sod (Zosyn 2.25 Gm Iv Premix) 2.25 gm in 50 mls @ 100 mls/hr IVPB Q8H [facility] Last Admin: 06/08/17 10:17 Dose: 100 mls/hr Lactated Ringer's (Lactated Ringer's) 1,000 mls @ 150 mls/hr IV .Q6H40M [facility] Last Admin: 06/08/17 07:17 Dose: Not Given Insulin Aspart (Novolog) 0 unit SC ACHS [facility] PRN Reason: Protocol Last Admin: 06/08/17 08:13 Dose: Not Given Insulin Glargine (Lantus) 16 unit SC HS [facility] Last Admin: 06/07/17 22:34 Dose: Not Given Lamivudine (Epivir) 150 mg PO DAILY [facility] Last Admin: 06/08/17 10:25 Dose: 150 mg Morphine Sulfate (Morphine) 4 mg IVP Q6 PRN PRN Reason: Pain, severe (8-10) Last Admin: 06/08/17 10:41 Dose: 4 mg Sertraline HCl (Zoloft) 50 mg PO DAILY [facility] Last Admin: 06/08/17 10:12 Dose: 50 mg - Labs Labs: 06/05/17 12:03 06/05/17 12:03 PT 11.3 SECONDS (9.7-12.2) 06/02/17 19:48 INR 1.0 06/02/17 19:48 APTT 30 SECONDS (21-34) 06/02/17 19:48
[2017-06-08 11:27] LABS: HEMOGLOBIN 10.2 g/dL (11.0-16.0); MEAN CELL VOLUME 86.8 fL (81.0-99.0); MEAN CORPUSCULAR HEMOGLOBIN 29.2 pg (27.0-31.0); MEAN CORPUSCULAR HGB CONC 33.7 g/dL (33.0-37.0); MEAN PLATELET VOLUME 7.7 fL (7.2-11.7); RBC 3.49 Mil/uL (3.80-5.20); RED CELL DISTRIBUTION WIDTH 14.7 % (11.5-14.5); WHITE BLOOD COUNT 7.1 K/uL (4.8-10.8)
--- NOTE | 2017-06-08 11:36 | CP.PCM.PN ---
Subjective - Date & Time of Evaluation Date of Evaluation: 06/08/17 Time of Evaluation: 11:33 - Subjective Subjective: C/O LOSS OF APPETITE. FATIGUE. FEBRILE AND COUGH. S/P FOOT SURGERY. Objective - Vital Signs/Intake and Output Vital Signs (last 24 hours): Temp Pulse Resp BP Pulse Ox 101 F H 91 H 20 165/85 H 97 06/08/17 08:34 06/08/17 08:34 06/08/17 08:34 06/08/17 10:12 06/08/17 08:34 Intake and Output: 06/08/17 06/08/17 06:59 18:59 Intake Total 600 290 Output Total 1800 Balance -1200 290 - Medications Medications: Current Medications Abacavir Sulfate (Ziagen) 300 mg PO BID [facility] Last Admin: 06/08/17 10:13 Dose: 300 mg Amlodipine Besylate (Norvasc) 5 mg PO DAILY [facility] Last Admin: 06/08/17 10:12 Dose: 5 mg Carvedilol (Coreg) 12.5 mg PO BID [facility] Last Admin: 06/08/17 10:12 Dose: 12.5 mg Diphenhydramine HCl (Benadryl) 50 mg PO Q6 PRN PRN Reason: itchiness Last Admin: 06/04/17 21:58 Dose: 50 mg Dolutegravir Sodium (Tivicay) 50 mg PO DAILY [facility] Last Admin: 06/08/17 10:13 Dose: 50 mg Guaifenesin (Robitussin) 200 mg PO Q6H PRN PRN Reason: Cough and congestion Heparin Sodium (Porcine) (Heparin) 5,000 units SC Q12 [facility] Last Admin: 06/05/17 21:34 Dose: 5,000 units Piperacillin Sod/Tazobactam Sod (Zosyn 2.25 Gm Iv Premix) 2.25 gm in 50 mls @ 100 mls/hr IVPB Q8H [facility] Last Admin: 06/08/17 10:17 Dose: 100 mls/hr Lactated Ringer's (Lactated Ringer's) 1,000 mls @ 150 mls/hr IV .Q6H40M [facility] Last Admin: 06/08/17 07:17 Dose: Not Given Ibuprofen (Motrin Tab) 400 mg PO Q6H PRN PRN Reason: Fever >100.4 F Insulin Aspart (Novolog) 0 unit SC ACHS [facility] PRN Reason: Protocol Last Admin: 06/08/17 08:13 Dose: Not Given Insulin Glargine (Lantus) 16 unit SC HS [facility] Last Admin: 06/07/17 22:34 Dose: Not Given Lamivudine (Epivir) 150 mg PO DAILY [facility] Last Admin: 06/08/17 10:25 Dose: 150 mg Morphine Sulfate (Morphine) 4 mg IVP Q6 PRN PRN Reason: Pain, severe (8-10) Last Admin: 06/08/17 10:41 Dose: 4 mg Sertraline HCl (Zoloft) 50 mg PO DAILY [facility] Last Admin: 06/08/17 10:12 Dose: 50 mg - Labs Labs: 06/08/17 11:18 06/05/17 12:03 PT 11.3 SECONDS (9.7-12.2) 06/02/17 19:48 INR 1.0 06/02/17 19:48 APTT 30 SECONDS (21-34) 06/02/17 19:48 - Constitutional Appears: No Acute Distress, Chronically Ill - Eye Exam Eye Exam: Normal appearance, PERRL - ENT Exam ENT Exam: Mucous Membranes Moist - Respiratory Exam Respiratory Exam: Clear to Ausculation Bilateral, NORMAL BREATHING PATTERN - Cardiovascular Exam Cardiovascular Exam: REGULAR RHYTHM, +S1, +S2. absent: Murmur - GI/Abdominal Exam GI & Abdominal Exam: Soft, Normal Bowel Sounds. absent: Tenderness - Extremities Exam Extremities Exam: Full ROM, Normal Capillary Refill, Normal Inspection. absent : Joint Swelling, Pedal Edema - Back Exam Back Exam: NORMAL INSPECTION - Neurological Exam Neurological Exam: Alert, Awake, CN II-XII Intact, Normal Gait, Oriented x3 Assessment and Plan - Assessment and Plan (Free Text) Assessment: FEVER. COUGH. S/P FOOT SURGERY. CRF. DM. HIV. Plan: FOR IV ANTIBIOTICS. FOOT CARE.
[2017-06-08 11:40] LABS: CALCIUM 8.1 mg/dl (8.6-10.4)
[2017-06-08] MEDS: guaiFENesin DM 100 mg-10 mg/5 ml UD PO PRN (11:52)
--- NOTE | 2017-06-08 13:05 | CP.PCM.PN ---
Subjective - Date & Time of Evaluation Date of Evaluation: 06/08/17 Time of Evaluation: 13:01 - Subjective Subjective: Podiatry Progress Note - Dr. Coy 36 year old female patient 1 day s/p Left foot 1st ray resection was seen at bedside today. Patient resting in bed comfortably, NAD. No acute events overnight. Patient states he feels mild pain to the surgical site, tolerable with current medication. Patient in better mood today, and is cooperative with dressing changes. No other pedal complaints. Denies N/V/F/D/C/SOB. Objective - Vital Signs/Intake and Output Vital Signs (last 24 hours): Temp Pulse Resp BP Pulse Ox 101 F H 91 H 20 165/85 H 97 06/08/17 08:34 06/08/17 08:34 06/08/17 08:34 06/08/17 10:12 06/08/17 08:34 Intake and Output: 06/08/17 06/08/17 06:59 18:59 Intake Total 600 290 Output Total 1800 Balance -1200 290 - Medications Medications: Current Medications Abacavir Sulfate (Ziagen) 300 mg PO BID [facility] Last Admin: 06/08/17 10:13 Dose: 300 mg Amlodipine Besylate (Norvasc) 5 mg PO DAILY [facility] Last Admin: 06/08/17 10:12 Dose: 5 mg Carvedilol (Coreg) 12.5 mg PO BID [facility] Last Admin: 06/08/17 10:12 Dose: 12.5 mg Diphenhydramine HCl (Benadryl) 50 mg PO Q6 PRN PRN Reason: itchiness Last Admin: 06/04/17 21:58 Dose: 50 mg Dolutegravir Sodium (Tivicay) 50 mg PO DAILY [facility] Last Admin: 06/08/17 10:13 Dose: 50 mg Guaifenesin (Robitussin) 200 mg PO Q6H PRN PRN Reason: Cough and congestion Guaifenesin/Dextromethorphan (Robitussin Dm) 5 ml PO Q4H PRN PRN Reason: Cough Last Admin: 06/08/17 11:52 Dose: 5 ml Heparin Sodium (Porcine) (Heparin) 5,000 units SC Q12 [facility] Last Admin: 06/05/17 21:34 Dose: 5,000 units Piperacillin Sod/Tazobactam Sod (Zosyn 2.25 Gm Iv Premix) 2.25 gm in 50 mls @ 100 mls/hr IVPB Q8H [facility] Last Admin: 06/08/17 10:17 Dose: 100 mls/hr Lactated Ringer's (Lactated Ringer's) 1,000 mls @ 150 mls/hr IV .Q6H40M [facility] Last Admin: 06/08/17 07:17 Dose: Not Given Ibuprofen (Motrin Tab) 400 mg PO Q6H PRN PRN Reason: Fever >100.4 F Last Admin: 06/08/17 11:49 Dose: 400 mg Insulin Aspart (Novolog) 0 unit SC ACHS [facility] PRN Reason: Protocol Last Admin: 06/08/17 11:38 Dose: Not Given Insulin Glargine (Lantus) 16 unit SC HS [facility] Last Admin: 06/07/17 22:34 Dose: Not Given Lamivudine (Epivir) 150 mg PO DAILY [facility] Last Admin: 06/08/17 10:25 Dose: 150 mg Morphine Sulfate (Morphine) 4 mg IVP Q4 [facility] Sertraline HCl (Zoloft) 50 mg PO DAILY [facility] Last Admin: 06/08/17 10:12 Dose: 50 mg - Labs Labs: 06/08/17 11:18 06/08/17 11:18 PT 11.3 SECONDS (9.7-12.2) 06/02/17 19:48 INR 1.0 06/02/17 19:48 APTT 30 SECONDS (21-34) 06/02/17 19:48 - Constitutional Appears: Well, Non-toxic, No Acute Distress - Head Exam Head Exam: ATRAUMATIC - Extremities Exam Additional comments: Dressing to LLE dirty, intact Derm: Medial foot: Incision site to medial aspect of Left foot well coapted with all sutures intact. Packing strip still intact. No purulent discharge noted. Slight mal-odor present. Mild sero-sanguinous drainage noted. Mild erythema noted around the surgical site. Lateral leg: Superficial ulceration noted on lateral aspect of the left leg measuring approximately 10 cm by 5 cm with a granular/fibrotic base with minimal serosanguinous drainage noted; absent purulence and malodor. Total avulsion of right nail 2 with exposed nail bed; dried, crusted blood present along nail grooves; absent erythema; no drainage, no purulence, no fluctuance, no clinical suspicions for active infection. Vasc: DP and PT pulses non-palpable , Temp gradient warm to warm from proximal to distal. Capillary fill time is diminished. Mild to moderate non-pitting edema noted to L foot. No edema noted to right 2nd digit. Neuro: Protective sensation grossly diminished Ortho: Tenderness on palpation to plantar aspect of left foot - Neurological Exam Neurological Exam: Alert, Awake, Oriented x3 - Psychiatric Exam Psychiatric exam: Normal Affect, Normal Mood - Skin Skin Exam: Normal Color, Warm Assessment and Plan - Assessment and Plan (Free Text) Assessment: 36 year old female 1 day s/p Left 1st ray amputation Plan: Patient seen and evaluated at bedside with attending, Dr. Coy Afebrile, WBC 7.1 Continue local wound care - saline flush, xeroform, DSD, RAFFY Patient to keep dressing clean/dry/intact, no WB on dressing Patient to WBAT in surgical shoe LLE, to be worn at all times - patient remains noncompliant despite education Left foot wound culture (prelim) - gram negative rachell, gram positive cocci, corynebacterium Podiatry will continue to follow while patient in house
[2017-06-08] MEDS: guaiFENesin 200 mg/10 ml Syrup UD PO PRN (18:52)
--- NOTE | 2017-06-08 20:17 | CP.PCM.PN ---
Subjective - Date & Time of Evaluation Date of Evaluation: 06/08/17 Time of Evaluation: 09:00 - Subjective Subjective: 1 day s/p Left foot 1st ray resection Objective - Vital Signs/Intake and Output Vital Signs (last 24 hours): Temp Pulse Resp BP Pulse Ox 97.9 F 73 20 157/85 H 98 06/08/17 17:28 06/08/17 17:28 06/08/17 17:28 06/08/17 18:52 06/08/17 17:28 Intake and Output: 06/08/17 06/09/17 18:59 06:59 Intake Total 840 Output Total 450 Balance 390 - Medications Medications: Current Medications Abacavir Sulfate (Ziagen) 300 mg PO BID [facility] Last Admin: 06/08/17 18:52 Dose: 300 mg Amlodipine Besylate (Norvasc) 5 mg PO DAILY [facility] Last Admin: 06/08/17 10:12 Dose: 5 mg Carvedilol (Coreg) 12.5 mg PO BID [facility] Last Admin: 06/08/17 18:52 Dose: 12.5 mg Diphenhydramine HCl (Benadryl) 50 mg PO Q6 PRN PRN Reason: itchiness Last Admin: 06/04/17 21:58 Dose: 50 mg Dolutegravir Sodium (Tivicay) 50 mg PO DAILY [facility] Last Admin: 06/08/17 10:13 Dose: 50 mg Guaifenesin (Robitussin) 200 mg PO Q6H PRN PRN Reason: Cough and congestion Last Admin: 06/08/17 18:52 Dose: 200 mg Guaifenesin/Dextromethorphan (Robitussin Dm) 5 ml PO Q4H PRN PRN Reason: Cough Last Admin: 06/08/17 11:52 Dose: 5 ml Heparin Sodium (Porcine) (Heparin) 5,000 units SC Q12 [facility] Last Admin: 06/05/17 21:34 Dose: 5,000 units Piperacillin Sod/Tazobactam Sod (Zosyn 2.25 Gm Iv Premix) 2.25 gm in 50 mls @ 100 mls/hr IVPB Q8H [facility] Last Admin: 06/08/17 19:36 Dose: 100 mls/hr Lactated Ringer's (Lactated Ringer's) 1,000 mls @ 150 mls/hr IV .Q6H40M [facility] Last Admin: 06/08/17 14:26 Dose: Not Given Ibuprofen (Motrin Tab) 400 mg PO Q6H PRN PRN Reason: Fever >100.4 F Last Admin: 06/08/17 11:49 Dose: 400 mg Insulin Aspart (Novolog) 0 unit SC ACHS [facility] PRN Reason: Protocol Last Admin: 06/08/17 16:55 Dose: Not Given Insulin Glargine (Lantus) 16 unit SC HS [facility] Last Admin: 06/07/17 22:34 Dose: Not Given Lamivudine (Epivir) 150 mg PO DAILY [facility] Last Admin: 06/08/17 10:25 Dose: 150 mg Morphine Sulfate (Morphine) 4 mg IVP Q4 PRN PRN Reason: Pain, severe (8-10) Last Admin: 06/08/17 14:25 Dose: 4 mg Sertraline HCl (Zoloft) 50 mg PO DAILY [facility] Last Admin: 06/08/17 10:12 Dose: 50 mg - Labs Labs: 06/08/17 11:18 06/08/17 11:18 PT 11.3 SECONDS (9.7-12.2) 06/02/17 19:48 INR 1.0 06/02/17 19:48 APTT 30 SECONDS (21-34) 06/02/17 19:48 - Constitutional Appears: Non-toxic, Chronically Ill - Head Exam Head Exam: NORMOCEPHALIC - Eye Exam Eye Exam: absent: Scleral icterus - ENT Exam ENT Exam: Mucous Membranes Dry - Neck Exam Neck Exam: absent: Lymphadenopathy - Respiratory Exam Respiratory Exam: Decreased Breath Sounds - Cardiovascular Exam Cardiovascular Exam: REGULAR RHYTHM - GI/Abdominal Exam GI & Abdominal Exam: Distended, Soft - Rectal Exam Rectal Exam: Deferred Assessment and Plan (1) Diabetic foot infection Status: Acute (2) Osteomyelitis of ankle or foot, acute Status: Acute (3) Chronic ulcer of left leg Status: Chronic (4) Uncontrolled diabetes mellitus Status: Chronic (5) GAEL (acute kidney injury) Status: Acute (6) Abscess and cellulitis Status: Acute - Assessment and Plan (Free Text) Assessment: noncompliant with antivirals- offered alternative regimen refusing IV antibiotics in progress consider ALBERT for 6 weeks rx if OK with Dr Coy
[2017-06-08] MEDS: (Lantus) Insulin Glargine, Recombinant SC SCH (21:37)
[2017-06-09] MEDS: Morphine 4 MG/ML VIAL IVP PRN ×5 (02:39→21:36)
[2017-06-09] MEDS: guaiFENesin 200 mg/10 ml Syrup UD PO PRN (02:39)
[2017-06-09] MEDS: Piperacill/Tazo 2.25gm in Dex 2.25 GM/50 ML BAG IVPB SCH ×3 (02:40→18:00)
--- NOTE | 2017-06-09 03:00 | PN ---
DATE: 06/08/2017 FOLLOWUP RENAL CONSULTATION LOCATION: The patient is located in room 354 bed A. REQUESTED BY: Art Nathan M.D. REASON FOR FOLLOWUP: Chronic kidney disease and proteinuria, for further evaluation. HISTORY OF PRESENT ILLNESS: Ms. Johnson is a 36-year-old young transgender female with past medical history significant for longstanding hypertension, diabetes, HIV positive, chronic osteomyelitis of the left leg, was admitted with pain and swelling of the leg. The patient is being treated for possible osteomyelitis and status post left fifth metatarsal resection yesterday. The patient complains of decreased appetite. No chest pain. No palpitation. No fever. No cough. No shortness of breath. No nausea or vomiting. PHYSICAL EXAMINATION: VITAL SIGNS: As follows, blood pressure this morning 165/85, pulse 91, respirations 20, temperature 101, saturation 97%. Height 6 feet 3 inches and weight is 296 pounds. BMI 37. GENERAL: Ms. Johnson is a 36-year-old young transgender female, well built, well nourished, not in distress. HEENT: Pupils normal, reactive to light and accommodation. Conjunctivae pink. Sclerae anicteric. Tongue is moist. Trachea is midline. LUNGS: Symmetric on both sides. Bilateral breath sounds present. Clear on auscultation. CVS: [place] at the fifth intercostal space, midclavicular area. S1 and S1 audible. No murmur or gallop. ABDOMEN: Normal in appearance, soft, tympanic. No guarding. No rigidity. No hepatosplenomegaly. SHAREPOINT SPECIALIST: The patient is alert, awake, oriented x3. Nonfocal neuro examination. Cranial nerves II through XII grossly intact. Sensory and motor system is within normal limits. EXTREMITIES: No cyanosis, no clubbing, no edema on the right leg. The patient has swelling of the left leg and also the patient has a dressing to the left foot. MEDICATIONS: Her current medications include as follows; Benadryl 50 mg p.o. q.6h., Coreg 12.5 mg p.o. b.i.d., Epivir 150 mg p.o. daily, subcu heparin on hold, Ringer's lactate IV fluids 150 mL/hour, Lantus 16 units subcu at bedtime, morphine 4 mg IV q. 4h. p.r.n., ibuprofen 400 mg p.o. q.6h. p.r.n., Norvasc 5 mg p.o. daily, NovoLog insulin per sliding scale, guaifenesin 200 mg p.o. q.6h., Robitussin DM 5 mL p.o. q. 4h., Tivicay 50 mg p.o. daily, Ziagen which is abacavir 300 mg p.o. b.i.d., Zoloft 50 mg p.o. daily, and Zosyn 2.25 g IV q. 8h. LABORATORY DATA: Include as follows, as of 06/08/2017, WBC 7.1, hemoglobin 10.0, hematocrit is 30.3, platelets 221,000. Sodium 136, potassium 4.4, chloride 105, CO2 24, BUN 35, creatinine is 3, glucose 108, calcium is 8.1 and Accu-Chek 105 and 137. Wound culture from the left foot positive for Pseudomonas and also staph coag negative and Corynebacterium species. HIV-1 RNA PCR 4.9 log copies/mL and MIKIE is negative. C3 and C4 is within normal. C3 is 104, C4 is 116. ASSESSMENT: In summary, Ms. Johnson is a 36-year-old young transgender female with hypertension, diabetes, HIV positive, noncompliance with medications, chronic osteomyelitis, and multiple surgeries was admitted with swelling and pain and status post amputation of the left fifth metatarsal on 06/07/2017 with massive proteinuria, increased BUN and creatinine. 1. Chronic kidney disease stage IV, most likely secondary to diabetic nephropathy, cannot rule out HIV associated nephropathy. 2. Hypertension. 3. Diabetes. 4. Osteomyelitis of the leg, status post amputation of the left fifth metatarsal. PLAN: Continue IV antibiotics, Zosyn, and follow the wound culture reports. Continue her blood pressure medications Coreg 12.5 mg p.o. b.i.d. and titrate as needed. Consider ARBs for massive proteinuria. Avoid nephrotoxic agents. We will follow with you. Follow up with ID. Thank you for allowing me to participate in your patient's care. Weston Brambila MD
[2017-06-09] MEDS: Lactated Ringer's 1,000 ML IV SCH ×4 (03:15→19:51)
[2017-06-09] MEDS: (Novolog) Insulin Aspart, Recombinant 100 u/ml 10 ml vial SC SCH ×4 (08:04→22:00)
[2017-06-09] MEDS: guaiFENesin DM 100 mg-10 mg/5 ml UD PO PRN (09:38)
--- NOTE | 2017-06-09 09:40 | CP.PCM.PN ---
Subjective - Date & Time of Evaluation Date of Evaluation: 06/09/17 Time of Evaluation: 09:40 - Subjective Subjective: pt is seen and examined,follow up consult is dictated #[id number] consider to increase norvasc to 10 qd, add losartan Objective - Vital Signs/Intake and Output Vital Signs (last 24 hours): Temp Pulse Resp BP Pulse Ox 98.4 F 98 H 20 163/119 H 95 06/09/17 09:39 06/09/17 09:39 06/09/17 09:39 06/09/17 09:39 06/09/17 09:39 Intake and Output: 06/09/17 06/09/17 06:59 18:59 Intake Total 1090 Balance 1090 - Medications Medications: Current Medications Abacavir Sulfate (Ziagen) 300 mg PO BID [facility] Last Admin: 06/09/17 09:36 Dose: 300 mg Amlodipine Besylate (Norvasc) 5 mg PO DAILY [facility] Last Admin: 06/09/17 09:37 Dose: 5 mg Carvedilol (Coreg) 12.5 mg PO BID [facility] Last Admin: 06/09/17 09:37 Dose: 12.5 mg Diphenhydramine HCl (Benadryl) 50 mg PO Q6 PRN PRN Reason: itchiness Last Admin: 06/09/17 02:58 Dose: 50 mg Dolutegravir Sodium (Tivicay) 50 mg PO DAILY [facility] Last Admin: 06/09/17 09:37 Dose: 50 mg Guaifenesin (Robitussin) 200 mg PO Q6H PRN PRN Reason: Cough and congestion Last Admin: 06/09/17 02:39 Dose: 200 mg Guaifenesin/Dextromethorphan (Robitussin Dm) 5 ml PO Q4H PRN PRN Reason: Cough Last Admin: 06/09/17 09:38 Dose: 5 ml Heparin Sodium (Porcine) (Heparin) 5,000 units SC Q12 [facility] Last Admin: 06/05/17 21:34 Dose: 5,000 units Piperacillin Sod/Tazobactam Sod (Zosyn 2.25 Gm Iv Premix) 2.25 gm in 50 mls @ 100 mls/hr IVPB Q8H [facility] Last Admin: 06/09/17 02:40 Dose: 100 mls/hr Lactated Ringer's (Lactated Ringer's) 1,000 mls @ 150 mls/hr IV .Q6H40M [facility] Last Admin: 06/09/17 03:15 Dose: Not Given Ibuprofen (Motrin Tab) 400 mg PO Q6H PRN PRN Reason: Fever >100.4 F Last Admin: 06/08/17 11:49 Dose: 400 mg Insulin Aspart (Novolog) 0 unit SC ACHS [facility] PRN Reason: Protocol Last Admin: 06/09/17 08:04 Dose: Not Given Insulin Glargine (Lantus) 16 unit SC HS [facility] Last Admin: 06/08/17 21:37 Dose: Not Given Lamivudine (Epivir) 150 mg PO DAILY [facility] Last Admin: 06/09/17 09:39 Dose: 150 mg Morphine Sulfate (Morphine) 4 mg IVP Q4 PRN PRN Reason: Pain, severe (8-10) Last Admin: 06/09/17 06:34 Dose: 4 mg Sertraline HCl (Zoloft) 50 mg PO DAILY [facility] Last Admin: 06/09/17 09:38 Dose: 50 mg - Labs Labs: 06/08/17 11:18 06/08/17 11:18 PT 11.3 SECONDS (9.7-12.2) 06/02/17 19:48 INR 1.0 06/02/17 19:48 APTT 30 SECONDS (21-34) 06/02/17 19:48
--- NOTE | 2017-06-09 10:26 | CP.PCM.PN ---
Subjective - Date & Time of Evaluation Date of Evaluation: 06/09/17 Time of Evaluation: 10:23 - Subjective Subjective: Podiatry Progress Note - Dr. Coy 36 year old female patient 2 days s/p Left foot 1st ray resection was seen at bedside today. Patient resting in bed comfortably, NAD. No acute events overnight. Dressing to Left lower extremity remains c/d/i. Patient admits to mild pain to left foot surgical site. No other pedal complaints. Denies N/V/F/D/ C/SOB. Objective - Vital Signs/Intake and Output Vital Signs (last 24 hours): Temp Pulse Resp BP Pulse Ox 98.4 F 98 H 20 163/119 H 95 06/09/17 09:39 06/09/17 09:39 06/09/17 09:39 06/09/17 09:39 06/09/17 09:39 Intake and Output: 06/09/17 06/09/17 06:59 18:59 Intake Total 1090 Balance 1090 - Medications Medications: Current Medications Abacavir Sulfate (Ziagen) 300 mg PO BID [facility] Last Admin: 06/09/17 09:36 Dose: 300 mg Amlodipine Besylate (Norvasc) 5 mg PO DAILY [facility] Last Admin: 06/09/17 09:37 Dose: 5 mg Carvedilol (Coreg) 12.5 mg PO BID [facility] Last Admin: 06/09/17 09:37 Dose: 12.5 mg Diphenhydramine HCl (Benadryl) 50 mg PO Q6 PRN PRN Reason: itchiness Last Admin: 06/09/17 02:58 Dose: 50 mg Dolutegravir Sodium (Tivicay) 50 mg PO DAILY [facility] Last Admin: 06/09/17 09:37 Dose: 50 mg Guaifenesin (Robitussin) 200 mg PO Q6H PRN PRN Reason: Cough and congestion Last Admin: 06/09/17 02:39 Dose: 200 mg Guaifenesin/Dextromethorphan (Robitussin Dm) 5 ml PO Q4H PRN PRN Reason: Cough Last Admin: 06/09/17 09:38 Dose: 5 ml Heparin Sodium (Porcine) (Heparin) 5,000 units SC Q12 [facility] Last Admin: 06/05/17 21:34 Dose: 5,000 units Piperacillin Sod/Tazobactam Sod (Zosyn 2.25 Gm Iv Premix) 2.25 gm in 50 mls @ 100 mls/hr IVPB Q8H [facility] Last Admin: 06/09/17 02:40 Dose: 100 mls/hr Lactated Ringer's (Lactated Ringer's) 1,000 mls @ 150 mls/hr IV .Q6H40M [facility] Last Admin: 06/09/17 03:15 Dose: Not Given Ibuprofen (Motrin Tab) 400 mg PO Q6H PRN PRN Reason: Fever >100.4 F Last Admin: 06/08/17 11:49 Dose: 400 mg Insulin Aspart (Novolog) 0 unit SC ACHS [facility] PRN Reason: Protocol Last Admin: 06/09/17 08:04 Dose: Not Given Insulin Glargine (Lantus) 16 unit SC HS [facility] Last Admin: 06/08/17 21:37 Dose: Not Given Lamivudine (Epivir) 150 mg PO DAILY [facility] Last Admin: 06/09/17 09:39 Dose: 150 mg Morphine Sulfate (Morphine) 4 mg IVP Q4 PRN PRN Reason: Pain, severe (8-10) Last Admin: 06/09/17 06:34 Dose: 4 mg Sertraline HCl (Zoloft) 50 mg PO DAILY [facility] Last Admin: 06/09/17 09:38 Dose: 50 mg - Labs Labs: 06/08/17 11:18 06/08/17 11:18 PT 11.3 SECONDS (9.7-12.2) 06/02/17 19:48 INR 1.0 06/02/17 19:48 APTT 30 SECONDS (21-34) 06/02/17 19:48 - Constitutional Appears: Well, Non-toxic, No Acute Distress - Head Exam Head Exam: ATRAUMATIC - Extremities Exam Additional comments: Dressing to LLE dirty, intact Derm: Medial foot: Incision site to medial aspect of Left foot well coapted with all sutures intact. Packing strip still intact. No purulent discharge noted. Slight mal-odor present. Mild sero-sanguinous drainage noted. Mild erythema noted around the surgical site. Lateral leg: Superficial ulceration noted on lateral aspect of the left leg measuring approximately 10 cm by 5 cm with a granular/fibrotic base with minimal serosanguinous drainage noted; absent purulence and malodor. Total avulsion of right nail 2 with exposed nail bed; dried, crusted blood present along nail grooves; absent erythema; no drainage, no purulence, no fluctuance, no clinical suspicions for active infection. Vasc: DP and PT pulses non-palpable , Temp gradient warm to warm from proximal to distal. Capillary fill time is diminished. Mild to moderate non-pitting edema noted to L foot. No edema noted to right 2nd digit. Neuro: Protective sensation grossly diminished Ortho: Tenderness on palpation to plantar aspect of left foot - Neurological Exam Neurological Exam: Alert, Awake, Oriented x3 - Psychiatric Exam Psychiatric exam: Normal Affect, Normal Mood - Skin Skin Exam: Normal Color, Warm Assessment and Plan - Assessment and Plan (Free Text) Assessment: 36 year old female 2 day s/p Left 1st ray amputation Plan: Patient seen and evaluated at bedside with attending, Dr. Coy Afebrile Continue local wound care - saline flush, xeroform, DSD, RAFFY Patient to keep dressing clean/dry/intact, no WB on dressing Patient to WBAT in surgical shoe LLE, to be worn at all times - patient remains noncompliant despite education Left foot wound culture (prelim) - gram negative rachell, gram positive cocci, corynebacterium Podiatry will continue to follow while patient in house
--- NOTE | 2017-06-09 17:54 | CP.PCM.PN ---
Subjective - Date & Time of Evaluation Date of Evaluation: 06/09/17 Time of Evaluation: 14:00 - Subjective Subjective: CONDITION REMAINS STABLE. PODIETRY EVAL NOTED. AFEBRILE. NON COMPLIENT TO THE TREATMENT. Objective - Vital Signs/Intake and Output Vital Signs (last 24 hours): Temp Pulse Resp BP Pulse Ox 98.3 F 90 20 134/85 97 06/09/17 15:35 06/09/17 15:35 06/09/17 15:35 06/09/17 15:35 06/09/17 15:35 Intake and Output: 06/09/17 06/09/17 06:59 18:59 Intake Total 1090 650 Balance 1090 650 - Medications Medications: Current Medications Abacavir Sulfate (Ziagen) 300 mg PO BID [facility] Last Admin: 06/09/17 09:36 Dose: 300 mg Amlodipine Besylate (Norvasc) 5 mg PO DAILY [facility] Last Admin: 06/09/17 09:37 Dose: 5 mg Carvedilol (Coreg) 12.5 mg PO BID [facility] Last Admin: 06/09/17 09:37 Dose: 12.5 mg Diphenhydramine HCl (Benadryl) 50 mg PO Q6 PRN PRN Reason: itchiness Last Admin: 06/09/17 16:27 Dose: 50 mg Dolutegravir Sodium (Tivicay) 50 mg PO DAILY [facility] Last Admin: 06/09/17 09:37 Dose: 50 mg Guaifenesin (Robitussin) 200 mg PO Q6H PRN PRN Reason: Cough and congestion Last Admin: 06/09/17 02:39 Dose: 200 mg Guaifenesin/Dextromethorphan (Robitussin Dm) 5 ml PO Q4H PRN PRN Reason: Cough Last Admin: 06/09/17 09:38 Dose: 5 ml Heparin Sodium (Porcine) (Heparin) 5,000 units SC Q12 [facility] Last Admin: 06/05/17 21:34 Dose: 5,000 units Piperacillin Sod/Tazobactam Sod (Zosyn 2.25 Gm Iv Premix) 2.25 gm in 50 mls @ 100 mls/hr IVPB Q8H [facility] Last Admin: 06/09/17 11:09 Dose: 100 mls/hr Lactated Ringer's (Lactated Ringer's) 1,000 mls @ 150 mls/hr IV .Q6H40M [facility] Last Admin: 06/09/17 12:32 Dose: 150 mls/hr Ibuprofen (Motrin Tab) 400 mg PO Q6H PRN PRN Reason: Fever >100.4 F Last Admin: 06/08/17 11:49 Dose: 400 mg Insulin Aspart (Novolog) 0 unit SC ACHS [facility] PRN Reason: Protocol Last Admin: 06/09/17 16:37 Dose: 1 unit Insulin Glargine (Lantus) 16 unit SC HS [facility] Last Admin: 06/08/17 21:37 Dose: Not Given Lamivudine (Epivir) 150 mg PO DAILY [facility] Last Admin: 06/09/17 09:39 Dose: 150 mg Morphine Sulfate (Morphine) 4 mg IVP Q4 PRN PRN Reason: Pain, severe (8-10) Last Admin: 06/09/17 16:25 Dose: 4 mg Sertraline HCl (Zoloft) 50 mg PO DAILY [facility] Last Admin: 06/09/17 09:38 Dose: 50 mg - Labs Labs: 06/08/17 11:18 06/08/17 11:18 PT 11.3 SECONDS (9.7-12.2) 06/02/17 19:48 INR 1.0 06/02/17 19:48 APTT 30 SECONDS (21-34) 06/02/17 19:48 - Constitutional Appears: No Acute Distress, Chronically Ill - Eye Exam Eye Exam: PERRL - ENT Exam ENT Exam: Mucous Membranes Moist, Normal Exam - Neck Exam Neck Exam: Full ROM, Normal Inspection. absent: Lymphadenopathy - Respiratory Exam Respiratory Exam: Clear to Ausculation Bilateral, NORMAL BREATHING PATTERN - Cardiovascular Exam Cardiovascular Exam: REGULAR RHYTHM, +S1, +S2. absent: Murmur - GI/Abdominal Exam GI & Abdominal Exam: Soft, Normal Bowel Sounds. absent: Tenderness - Extremities Exam Extremities Exam: Full ROM, Normal Capillary Refill, Normal Inspection. absent : Joint Swelling, Pedal Edema - Back Exam Back Exam: NORMAL INSPECTION - Neurological Exam Neurological Exam: Alert, Awake, CN II-XII Intact, Normal Gait, Oriented x3 Assessment and Plan - Assessment and Plan (Free Text) Assessment: WOUND INF. OSTEOMYELITIS FOOT. S/P SURGERY. Plan: WILL DISCUSS WITH DR. MCKEON FOR FURTHER PLAN.
[2017-06-09] MEDS: (Lantus) Insulin Glargine, Recombinant SC SCH (21:47)
[2017-06-10] MEDS: Morphine 4 MG/ML VIAL IVP PRN ×5 (01:25→19:46)
[2017-06-10] MEDS: Piperacill/Tazo 2.25gm in Dex 2.25 GM/50 ML BAG IVPB SCH ×3 (02:37→18:35)
[2017-06-10] MEDS: Lactated Ringer's 1,000 ML IV SCH ×5 (02:37→19:45)
--- NOTE | 2017-06-10 07:19 | PN ---
DATE: 06/09/2017 FOLLOWUP RENAL CONSULTATION LOCATION: Patient is located in room 354, bed A. REQUESTED BY: Dr. Art Nathan. REASON FOR FOLLOWUP: Chronic kidney disease and massive proteinuria. HISTORY OF PRESENT ILLNESS: Mrs. Johnson is 36 years old young transgender female with a past medical history significant for longstanding diabetes, HIV positive, chronic osteomyelitis who was admitted with pain and swelling of the left foot, multiple ambulation in the past, was found to have osteomyelitis and status post fifth metatarsal resection. The patient is not in acute distress. Denies any complaints today except occasional cough. PHYSICAL EXAMINATION: VITAL SIGNS: Include as follows: Blood pressure 151/86, pulse 89, respirations 20, temperature 98.4, saturation 97%. Height 6 feet 2 inches. Weight is 296 pounds. GENERAL: Mrs. Johnson is 36 years old young transgender female, well built, well nourished, not in acute distress. HEENT: Pupils normal and reactive to light and accommodation. Conjunctivae pink. Sclerae anicteric. Tongue is moist. Trachea is midline. LUNGS: Symmetric on both sides. Bilateral breath sounds present. Clear on auscultation. CVS: [place] at the fifth intercostal space midclavicular line. S1, S2 audible. No murmur. No gallop. ABDOMEN: Normal in appearance, soft, tympanic. No guarding. No rigidity. No hepatosplenomegaly. OUTSIDE PARTS SALESMAN: The patient is alert, awake, and oriented x3. Nonfocal neuro examination. Cranial nerves II through XII grossly intact. Sensory and motor system is within normal limits. EXTREMITIES: No cyanosis, no clubbing, no edema on the right leg, patient has a swelling in the left foot and left leg. MEDICATIONS: Her current medications include as follows: Benadryl 50 mg p.o. q.6 hours, Coreg 12.5 mg p.o. b.i.d., Epivir 50 mg p.o. daily, subcu heparin on hold, Ringer's lactate 150 mL IV q.6 hours, Lantus 16 units subcu at bedtime, morphine sulphate 4 mg IV q.4 hours, ibuprofen 400 mg p.o. q.6 hours p.r.n. for pain, Norvasc 5 mg p.o. daily, Robitussin 200 mg p.o. q.6 hours, Robitussin DM 5 mL p.o. q.4 hours p.r.n., Tivicay 50 mg p.o. daily, and abacavir sulphate 300 mg p.o. b.i.d., Zoloft 50 mg p.o. daily, and Zosyn 2.25 gm IV q.8 hours. LABORATORY DATA: No new labs are available; and Accu-Cheks 96, 192, 158 IMPRESSION: In summary, Mrs. Johnson is 36 years old young female transgender, who was admitted with a longstanding hypertension, diabetes, chronic kidney disease, proteinuria more than 14 grams, human immunodeficiency virus positive, noncompliance with medication, depression who was admitted with a pain and swelling of the left leg and found to have osteomyelitis questionable, status post resection of the left fifth metatarsal. 1. Chronic kidney disease stage IIIB, most likely secondary to diabetic nephropathy, cannot rule out underlying human immunodeficiency virus associated nephropathy. 2. Hypertension. 3. Left foot infection, questionable osteomyelitis, status post resection of the left fifth metatarsal. Continue intravenous antibiotics as per Infectious Disease recommendation, Zosyn 2.25 gm intravenous q.8 hours and check urine protein electrophoresis and increase Norvasc to 10 mg as needed for control of the blood pressure and consider to add Losartan 25 mg and titrate as needed. We will follow with you. Thank you for allowing me to participate in your patient's care. Weston Brambila MD cc: 06/10/2017 AARON
[2017-06-10] MEDS: (Novolog) Insulin Aspart, Recombinant 100 u/ml 10 ml vial SC SCH ×4 (08:21→22:09)
--- NOTE | 2017-06-10 09:25 | CP.PCM.PN ---
Subjective - Date & Time of Evaluation Date of Evaluation: 06/10/17 Time of Evaluation: 09:22 - Subjective Subjective: Podiatry Progress Note - Dr. Coy 36 year old female patient 3 days s/p Left foot 1st ray resection was seen at bedside today. Dressing to Left lower extremity remains c/d/i. Patient resting in bed comfortably, AAOx3, NAD. Patient admits to mild pain to left foot surgical site. No other pedal complaints. Denies N/V/F/D/C/SOB. Objective - Vital Signs/Intake and Output Vital Signs (last 24 hours): Temp Pulse Resp BP Pulse Ox 98.6 F 91 H 20 161/100 H 97 06/10/17 07:50 06/10/17 07:50 06/10/17 07:50 06/10/17 07:50 06/10/17 07:50 Intake and Output: 06/10/17 06/10/17 06:59 18:59 Intake Total 1650 1200 Output Total 1400 Balance 1650 -200 - Medications Medications: Current Medications Abacavir Sulfate (Ziagen) 300 mg PO BID [facility] Last Admin: 06/09/17 18:09 Dose: Not Given Amlodipine Besylate (Norvasc) 5 mg PO DAILY [facility] Last Admin: 06/09/17 09:37 Dose: 5 mg Carvedilol (Coreg) 12.5 mg PO BID [facility] Last Admin: 06/09/17 17:57 Dose: 12.5 mg Diphenhydramine HCl (Benadryl) 50 mg PO Q6 PRN PRN Reason: itchiness Last Admin: 06/10/17 01:25 Dose: 50 mg Dolutegravir Sodium (Tivicay) 50 mg PO DAILY [facility] Last Admin: 06/09/17 09:37 Dose: 50 mg Guaifenesin (Robitussin) 200 mg PO Q6H PRN PRN Reason: Cough and congestion Last Admin: 06/09/17 02:39 Dose: 200 mg Guaifenesin/Dextromethorphan (Robitussin Dm) 5 ml PO Q4H PRN PRN Reason: Cough Last Admin: 06/09/17 09:38 Dose: 5 ml Heparin Sodium (Porcine) (Heparin) 5,000 units SC Q12 [facility] Last Admin: 06/05/17 21:34 Dose: 5,000 units Piperacillin Sod/Tazobactam Sod (Zosyn 2.25 Gm Iv Premix) 2.25 gm in 50 mls @ 100 mls/hr IVPB Q8H [facility] Last Admin: 06/10/17 02:37 Dose: 100 mls/hr Lactated Ringer's (Lactated Ringer's) 1,000 mls @ 150 mls/hr IV .Q6H40M [facility] Last Admin: 06/10/17 05:46 Dose: Not Given Ibuprofen (Motrin Tab) 400 mg PO Q6H PRN PRN Reason: Fever >100.4 F Last Admin: 06/08/17 11:49 Dose: 400 mg Insulin Aspart (Novolog) 0 unit SC ACHS [facility] PRN Reason: Protocol Last Admin: 06/10/17 08:21 Dose: Not Given Insulin Glargine (Lantus) 16 unit SC HS [facility] Last Admin: 06/09/17 21:47 Dose: Not Given Lamivudine (Epivir) 150 mg PO DAILY [facility] Last Admin: 06/09/17 09:39 Dose: 150 mg Morphine Sulfate (Morphine) 4 mg IVP Q4 PRN PRN Reason: Pain, severe (8-10) Last Admin: 06/10/17 05:15 Dose: 4 mg Sertraline HCl (Zoloft) 50 mg PO DAILY [facility] Last Admin: 06/09/17 09:38 Dose: 50 mg - Labs Labs: 06/08/17 11:18 06/08/17 11:18 PT 11.3 SECONDS (9.7-12.2) 06/02/17 19:48 INR 1.0 06/02/17 19:48 APTT 30 SECONDS (21-34) 06/02/17 19:48 - Constitutional Appears: Well, Non-toxic, No Acute Distress - Head Exam Head Exam: ATRAUMATIC - Extremities Exam Additional comments: Dressing to LLE dirty, intact Derm: Medial foot: Incision site to medial aspect of Left foot well coapted with all sutures intact. Packing strip still intact. No purulent discharge noted. Slight mal-odor present. Mild sero-sanguinous drainage noted. Mild erythema noted around the surgical site. Lateral leg: Superficial ulceration noted on lateral aspect of the left leg measuring approximately 10 cm by 5 cm with a granular/fibrotic base with minimal serosanguinous drainage noted; absent purulence and malodor. Total avulsion of right nail 2 with exposed nail bed; dried, crusted blood present along nail grooves; absent erythema; no drainage, no purulence, no fluctuance, no clinical suspicions for active infection. Vasc: DP and PT pulses non-palpable , Temp gradient warm to warm from proximal to distal. Capillary fill time is diminished. Mild to moderate non-pitting edema noted to L foot. No edema noted to right 2nd digit. Neuro: Protective sensation grossly diminished Ortho: Tenderness on palpation to plantar aspect of left foot - Neurological Exam Neurological Exam: Alert, Awake, Oriented x3 - Psychiatric Exam Psychiatric exam: Normal Affect, Normal Mood Assessment and Plan - Assessment and Plan (Free Text) Assessment: 36 year old female 3 days s/p Left 1st ray Partial amputation Plan: Patient seen and evaluated at bedside with attending, Dr. Coy Afebrile Continue local wound care - saline flush, xeroform, DSD, RAFFY Patient to keep dressing clean/dry/intact, no WB on dressing Patient to WBAT in surgical shoe LLE, to be worn at all times - patient remains noncompliant despite education Left foot wound culture FINAL - psedumonas Paucimobilis, coagulase Neg Staphylococcus, corynebacterium Podiatry will continue to follow while patient in house
--- NOTE | 2017-06-10 09:48 | CP.PCM.PN ---
Subjective - Date & Time of Evaluation Date of Evaluation: 06/10/17 Time of Evaluation: 09:48 - Subjective Subjective: pt is seen and examined, follow up consult is dictated #[id number] daisy on ckd-3, anemia, d/c nsaids check urine lytes, od=sm cr, esinophils Objective - Vital Signs/Intake and Output Vital Signs (last 24 hours): Temp Pulse Resp BP Pulse Ox 98.6 F 91 H 20 161/100 H 97 06/10/17 07:50 06/10/17 07:50 06/10/17 07:50 06/10/17 07:50 06/10/17 07:50 Intake and Output: 06/10/17 06/10/17 06:59 18:59 Intake Total 1650 1200 Output Total 1400 Balance 1650 -200 - Medications Medications: Current Medications Abacavir Sulfate (Ziagen) 300 mg PO BID [facility] Last Admin: 06/09/17 18:09 Dose: Not Given Amlodipine Besylate (Norvasc) 5 mg PO DAILY [facility] Last Admin: 06/09/17 09:37 Dose: 5 mg Carvedilol (Coreg) 12.5 mg PO BID [facility] Last Admin: 06/09/17 17:57 Dose: 12.5 mg Diphenhydramine HCl (Benadryl) 50 mg PO Q6 PRN PRN Reason: itchiness Last Admin: 06/10/17 01:25 Dose: 50 mg Dolutegravir Sodium (Tivicay) 50 mg PO DAILY [facility] Last Admin: 06/09/17 09:37 Dose: 50 mg Guaifenesin (Robitussin) 200 mg PO Q6H PRN PRN Reason: Cough and congestion Last Admin: 06/09/17 02:39 Dose: 200 mg Guaifenesin/Dextromethorphan (Robitussin Dm) 5 ml PO Q4H PRN PRN Reason: Cough Last Admin: 06/09/17 09:38 Dose: 5 ml Heparin Sodium (Porcine) (Heparin) 5,000 units SC Q12 [facility] Last Admin: 06/05/17 21:34 Dose: 5,000 units Piperacillin Sod/Tazobactam Sod (Zosyn 2.25 Gm Iv Premix) 2.25 gm in 50 mls @ 100 mls/hr IVPB Q8H [facility] Last Admin: 06/10/17 02:37 Dose: 100 mls/hr Lactated Ringer's (Lactated Ringer's) 1,000 mls @ 150 mls/hr IV .Q6H40M [facility] Last Admin: 06/10/17 05:46 Dose: Not Given Ibuprofen (Motrin Tab) 400 mg PO Q6H PRN PRN Reason: Fever >100.4 F Last Admin: 06/08/17 11:49 Dose: 400 mg Insulin Aspart (Novolog) 0 unit SC ACHS [facility] PRN Reason: Protocol Last Admin: 06/10/17 08:21 Dose: Not Given Insulin Glargine (Lantus) 16 unit SC HS [facility] Last Admin: 06/09/17 21:47 Dose: Not Given Lamivudine (Epivir) 150 mg PO DAILY [facility] Last Admin: 06/09/17 09:39 Dose: 150 mg Morphine Sulfate (Morphine) 4 mg IVP Q4 PRN PRN Reason: Pain, severe (8-10) Last Admin: 06/10/17 05:15 Dose: 4 mg Sertraline HCl (Zoloft) 50 mg PO DAILY [facility] Last Admin: 06/09/17 09:38 Dose: 50 mg - Labs Labs: 06/08/17 11:18 06/08/17 11:18 PT 11.3 SECONDS (9.7-12.2) 06/02/17 19:48 INR 1.0 06/02/17 19:48 APTT 30 SECONDS (21-34) 06/02/17 19:48
[2017-06-10 11:26] LABS: BASO % 0.7 % (0.0-2.0); EOS # 0.3 K/uL (0.0-0.7); EOS % 5.1 % (0.0-4.0); HEMOGLOBIN 9.8 g/dL (11.0-16.0); LYMPH # 1.9 K/uL (1.0-4.3); LYMPH % 35.6 % (20.0-40.0); MEAN CELL VOLUME 87.2 fL (81.0-99.0); MEAN CORPUSCULAR HEMOGLOBIN 29.6 pg (27.0-31.0); MEAN CORPUSCULAR HGB CONC 33.9 g/dL (33.0-37.0); MEAN PLATELET VOLUME 7.7 fL (7.2-11.7); MONO # 0.7 K/uL (0.0-0.8); MONO % 13.6 % (0.0-10.0); NEUT # 2.4 K/uL (1.8-7.0); RBC 3.32 Mil/uL (3.80-5.20); RED CELL DISTRIBUTION WIDTH 14.8 % (11.5-14.5); WHITE BLOOD COUNT 5.3 K/uL (4.8-10.8)
[2017-06-10 11:39] LABS: CALCIUM 8.2 mg/dl (8.6-10.4)
--- NOTE | 2017-06-10 12:11 | CP.PCM.PN ---
Subjective - Date & Time of Evaluation Date of Evaluation: 06/10/17 Time of Evaluation: 12:07 - Subjective Subjective: DISCUSSED WITH PT FOR FURTHER MANAGEMENT. NEEDS ALBERT OR OUT PATIENT IV ABT THERAPY. PATIENT FLATLY REFUSES BOTH. AND CLAIMS HE WILL NOT TAKE ANTIBIOTICS AT HOME ALSO. MEDICALLY STABLE. GETTING LOCAL DRESSING DONE AND IV ANTIBIOTICS. HE WILL GO HOME WEDNESDAY. REFUSES PICC LINE. Objective - Vital Signs/Intake and Output Vital Signs (last 24 hours): Temp Pulse Resp BP Pulse Ox 98.6 F 91 H 20 161/100 H 97 06/10/17 07:50 06/10/17 07:50 06/10/17 07:50 06/10/17 10:42 06/10/17 07:50 Intake and Output: 06/10/17 06/10/17 06:59 18:59 Intake Total 1650 1200 Output Total 1400 Balance 1650 -200 - Medications Medications: Current Medications Abacavir Sulfate (Ziagen) 300 mg PO BID [facility] Last Admin: 06/10/17 10:41 Dose: 300 mg Amlodipine Besylate (Norvasc) 5 mg PO DAILY [facility] Last Admin: 06/10/17 10:42 Dose: 5 mg Carvedilol (Coreg) 12.5 mg PO BID [facility] Last Admin: 06/10/17 10:42 Dose: 12.5 mg Diphenhydramine HCl (Benadryl) 50 mg PO Q6 PRN PRN Reason: itchiness Last Admin: 06/10/17 10:43 Dose: 50 mg Dolutegravir Sodium (Tivicay) 50 mg PO DAILY [facility] Last Admin: 06/10/17 10:41 Dose: 50 mg Guaifenesin (Robitussin) 200 mg PO Q6H PRN PRN Reason: Cough and congestion Last Admin: 06/09/17 02:39 Dose: 200 mg Guaifenesin/Dextromethorphan (Robitussin Dm) 5 ml PO Q4H PRN PRN Reason: Cough Last Admin: 06/09/17 09:38 Dose: 5 ml Heparin Sodium (Porcine) (Heparin) 5,000 units SC Q12 [facility] Last Admin: 06/10/17 10:44 Dose: Not Given Piperacillin Sod/Tazobactam Sod (Zosyn 2.25 Gm Iv Premix) 2.25 gm in 50 mls @ 100 mls/hr IVPB Q8H [facility] Last Admin: 06/10/17 10:50 Dose: 100 mls/hr Lactated Ringer's (Lactated Ringer's) 1,000 mls @ 150 mls/hr IV .Q6H40M [facility] Last Admin: 06/10/17 10:43 Dose: 150 mls/hr Ibuprofen (Motrin Tab) 400 mg PO Q6H PRN PRN Reason: Fever >100.4 F Last Admin: 06/08/17 11:49 Dose: 400 mg Insulin Aspart (Novolog) 0 unit SC ACHS [facility] PRN Reason: Protocol Last Admin: 06/10/17 08:21 Dose: Not Given Insulin Glargine (Lantus) 16 unit SC HS [facility] Last Admin: 06/09/17 21:47 Dose: Not Given Lamivudine (Epivir) 150 mg PO DAILY [facility] Last Admin: 06/10/17 10:42 Dose: 150 mg Morphine Sulfate (Morphine) 4 mg IVP Q4 PRN PRN Reason: Pain, severe (8-10) Last Admin: 06/10/17 10:40 Dose: 4 mg Sertraline HCl (Zoloft) 50 mg PO DAILY [facility] Last Admin: 06/10/17 10:43 Dose: 50 mg - Labs Labs: 06/10/17 11:12 06/10/17 11:12 PT 11.3 SECONDS (9.7-12.2) 06/02/17 19:48 INR 1.0 06/02/17 19:48 APTT 30 SECONDS (21-34) 06/02/17 19:48 - Constitutional Appears: No Acute Distress, Chronically Ill - Eye Exam Eye Exam: EOMI, Normal appearance, PERRL Pupil Exam: NORMAL ACCOMODATION, PERRL - ENT Exam ENT Exam: Mucous Membranes Moist, Normal Exam - Neck Exam Neck Exam: Full ROM, Normal Inspection. absent: Lymphadenopathy - Respiratory Exam Respiratory Exam: Clear to Ausculation Bilateral, NORMAL BREATHING PATTERN - Cardiovascular Exam Cardiovascular Exam: REGULAR RHYTHM, +S1, +S2. absent: Murmur - GI/Abdominal Exam GI & Abdominal Exam: Soft, Normal Bowel Sounds. absent: Tenderness - Extremities Exam Additional comments: LT FOOT INF PRESENT. - Neurological Exam Neurological Exam: Alert, Awake, CN II-XII Intact, Normal Gait, Oriented x3 Assessment and Plan - Assessment and Plan (Free Text) Assessment: LT FOOT ULCER WITH OM. Plan: CT PRESENT TREATMENT. IV ANTIBIOTICS.
[2017-06-10] MEDS: guaiFENesin 200 mg/10 ml Syrup UD PO PRN (12:47)
--- NOTE | 2017-06-10 18:23 | CP.PCM.PN ---
Subjective - Date & Time of Evaluation Date of Evaluation: 06/10/17 Time of Evaluation: 09:00 - Subjective Subjective: refusing ARV rx now refusing PICC for OM will cont IV rx here for jnow- to discuss with Dr Coy Objective - Vital Signs/Intake and Output Vital Signs (last 24 hours): Temp Pulse Resp BP Pulse Ox 98.6 F 91 H 20 163/100 H 97 06/10/17 07:50 06/10/17 07:50 06/10/17 07:50 06/10/17 17:28 06/10/17 07:50 Intake and Output: 06/10/17 06/10/17 06:59 18:59 Intake Total 1650 2775 Output Total 1400 Balance 1650 1375 - Medications Medications: Current Medications Abacavir Sulfate (Ziagen) 300 mg PO BID [facility] Last Admin: 06/10/17 17:29 Dose: 300 mg Amlodipine Besylate (Norvasc) 10 mg PO DAILY [facility] Carvedilol (Coreg) 25 mg PO BID [facility] Last Admin: 06/10/17 17:28 Dose: 25 mg Diphenhydramine HCl (Benadryl) 50 mg PO Q6 PRN PRN Reason: itchiness Last Admin: 06/10/17 10:43 Dose: 50 mg Dolutegravir Sodium (Tivicay) 50 mg PO DAILY [facility] Last Admin: 06/10/17 10:41 Dose: 50 mg Guaifenesin/Dextromethorphan (Robitussin Dm) 5 ml PO Q4H PRN PRN Reason: Cough Last Admin: 06/09/17 09:38 Dose: 5 ml Heparin Sodium (Porcine) (Heparin) 5,000 units SC Q12 [facility] Last Admin: 06/10/17 10:44 Dose: Not Given Piperacillin Sod/Tazobactam Sod (Zosyn 2.25 Gm Iv Premix) 2.25 gm in 50 mls @ 100 mls/hr IVPB Q8H [facility] Last Admin: 06/10/17 10:50 Dose: 100 mls/hr Ibuprofen (Motrin Tab) 400 mg PO Q6H PRN PRN Reason: Fever >100.4 F Last Admin: 06/08/17 11:49 Dose: 400 mg Insulin Aspart (Novolog) 0 unit SC ACHS [facility] PRN Reason: Protocol Last Admin: 06/10/17 17:32 Dose: 2 unit Insulin Glargine (Lantus) 16 unit SC HS [facility] Last Admin: 06/09/17 21:47 Dose: Not Given Lamivudine (Epivir) 150 mg PO DAILY [facility] Last Admin: 06/10/17 10:42 Dose: 150 mg Morphine Sulfate (Morphine) 4 mg IVP Q4 PRN PRN Reason: Pain, severe (8-10) Last Admin: 06/10/17 15:52 Dose: 4 mg Pantoprazole Sodium (Protonix Inj) 40 mg IVP DAILY [facility] Last Admin: 06/10/17 15:00 Dose: Not Given Sertraline HCl (Zoloft) 50 mg PO DAILY [facility] Last Admin: 06/10/17 10:43 Dose: 50 mg - Labs Labs: 06/10/17 11:12 06/10/17 11:12 PT 11.3 SECONDS (9.7-12.2) 06/02/17 19:48 INR 1.0 06/02/17 19:48 APTT 30 SECONDS (21-34) 06/02/17 19:48 - Constitutional Appears: Non-toxic, Chronically Ill - Head Exam Head Exam: NORMOCEPHALIC - Eye Exam Eye Exam: PERRL - ENT Exam ENT Exam: Mucous Membranes Dry - Neck Exam Neck Exam: absent: Lymphadenopathy - Respiratory Exam Respiratory Exam: Decreased Breath Sounds - Cardiovascular Exam Cardiovascular Exam: REGULAR RHYTHM - GI/Abdominal Exam GI & Abdominal Exam: Distended - Rectal Exam Rectal Exam: Deferred - Exam Exam: NORMAL INSPECTION - Extremities Exam Extremities Exam: Pedal Edema, Tenderness. absent: Calf Tenderness - Back Exam Back Exam: absent: CVA tenderness (L), CVA tenderness (R) - Neurological Exam Neurological Exam: Alert, Awake, CN II-XII Intact, Oriented x3 Neuro motor strength exam: Left Upper Extremity: 4, Right Upper Extremity: 4, Left Lower Extremity: 4, Right Lower Extremity: 4 - Psychiatric Exam Psychiatric exam: Normal Mood - Skin Skin Exam: Dry Assessment and Plan (1) Diabetic foot infection Status: Acute (2) Osteomyelitis of ankle or foot, acute Status: Acute (3) Chronic ulcer of left leg Status: Chronic (4) Uncontrolled diabetes mellitus Status: Chronic (5) GAEL (acute kidney injury) Status: Acute (6) Abscess and cellulitis Status: Acute - Assessment and Plan (Free Text) Assessment: refusing iv picc line for om discussed risks/ options including , amputation
[2017-06-10] MEDS: (Lantus) Insulin Glargine, Recombinant SC SCH (22:11)
[2017-06-11] MEDS: Morphine 4 MG/ML VIAL IVP PRN ×6 (00:19→21:48)
--- NOTE | 2017-06-11 03:16 | PN ---
DATE: 06/10/2017 FOLLOWUP RENAL CONSULTATION LOCATION: Room 354, bed A. REQUESTED BY: Art Nathan MD REASON FOR FOLLOWUP: Chronic kidney disease and for further evaluation. HISTORY OF PRESENT ILLNESS: Ms. Johnson is a 36-year-old young transgender female with a past medical history significant for longstanding hypertension, diabetes, HIV positive, depression and chronic osteomyelitis of the left leg, multiple surgeries, who was admitted with swelling and pain and status post fifth metatarsal amputation. The patient is not in acute distress. Complains of occasional cough. No chest pain. No palpitation. No fever. No cough. The patient has cough but no expectoration. No abdominal pain. No nausea, vomiting, or diarrhea. PHYSICAL EXAMINATION: VITAL SIGNS: As follows; this morning, blood pressure 161/100, pulse 91, respirations 20, temperature 98.6, saturation 97%. Height 6 feet 3 inches and weight is 296. GENERAL: Ms. Johnson is a 36-year-old young transgender female, well built, well nourished, not in acute distress. HEENT: Pupils normal, reactive to accommodation. Conjunctivae pink. Sclerae anicteric. Tongue is moist and trachea is midline. LUNGS: Symmetric on both sides. Bilateral breath sounds present. Clear on auscultation. CVS: [place] at the fifth intercostal space, midclavicular line. S1, S2 audible. No murmur or gallop. ABDOMEN: Normal in appearance, soft, tympanitic. No guarding, no rigidity. No hepatosplenomegaly. CHARGE AUDITOR: The patient is alert, awake and oriented x3. Nonfocal. On examination cranial nerves II through grossly intact. Sensory and motor system is within normal limits. EXTREMITIES: No cyanosis, no clubbing, no edema on the right leg. The patient has swelling of the left leg and the patient has a dressing to the left foot. CURRENT MEDICATIONS: Include as follows, Benadryl 50 mg p.o. every 6 hours p.r.n. and Coreg 25 mg p.o. b.i.d. and Epivir 150 mg p.o. daily and subcu heparin 5000 every 12 hours and Lantus 16 units subcu at bedtime, morphine 4 mg IV every 4 hours p.r.n. and ibuprofen 400 mg of p.o. every 6 hours p.r.n. amlodipine 10 mg p.o. daily and Zosyn 2.25 g IV every 8 hours and Protonix 40 mg IV daily, Robitussin DM 5 mL p.o. every 4 hours p.r.n. and Tivicay 50 mg p.o. daily and abacavir 300 mg p.o. b.i.d. and Zoloft 50 mg p.o. daily. LABORATORY DATA: Include as follows as of 06/10/2017, WBC 5.3, hemoglobin 9.8, hematocrit is 29, platelets 191. Sodium 137, potassium is 4.4, chloride 105, CO2 of 23, BUN 33, creatinine 3.5, glucose 163, calcium 8.2. SUMMARY: Ms. Johnson is a 36-year-old young obese transgender female with hypertension, diabetes and human immunodeficiency virus positive, depression and osteomyelitis of the foot and multiple surgeries with a baseline creatinine 2.7 on admission 06/02/2017 and on 06/05/2017 went up to 2.0, on 06/08/2017 went up to 3.0, and as of 06/10/2017 creatinine 3.5. 1. Acute renal failure on chronic kidney disease most likely secondary to foot infection. 2. Anemia secondary to chronic kidney disease rule out iron-deficiency anemia. 3. Osteomyelitis, status post amputation of the left fifth metatarsal. 4. Hypertension. 5. Uncontrolled diabetes. 6. Human immunodeficiency virus. Increasing serum creatinine most likely secondary to acute tubular necrosis secondary to sepsis secondary to the left foot infection, cannot rule out interstitial nephritis secondary to antibiotics. PLAN: We will check urine lytes, osmolality, urine creatinine and urine for eosinophils and DC on steroids at this time. We will follow with you. Thank you for allowing me to participate in your patient's care and will followup BMP in a.m., and also we will add Epogen 10,000 units three times a week Wednesday, Wednesday and Wednesday, hold for hemoglobin more than 11. Weston Brambila MD
[2017-06-11] MEDS: Piperacill/Tazo 2.25gm in Dex 2.25 GM/50 ML BAG IVPB SCH ×3 (04:00→18:59)
[2017-06-11 07:55] LABS: CALCIUM 8.6 mg/dl (8.6-10.4)
[2017-06-11] MEDS: (Novolog) Insulin Aspart, Recombinant 100 u/ml 10 ml vial SC SCH ×4 (08:18→22:34)
--- NOTE | 2017-06-11 13:03 | CP.PCM.PN ---
Subjective - Date & Time of Evaluation Date of Evaluation: 06/11/17 Time of Evaluation: 13:00 - Subjective Subjective: CONDITION SAME. AFEBRILE. REFUSES ALBERT, PICC LINE, OUT PT ABTS. STABLE. Objective - Vital Signs/Intake and Output Vital Signs (last 24 hours): Temp Pulse Resp BP Pulse Ox 98.7 F 88 20 172/113 H 99 06/11/17 08:23 06/11/17 08:23 06/11/17 08:23 06/11/17 09:07 06/11/17 08:23 Intake and Output: 06/11/17 06/11/17 06:59 18:59 Intake Total 450 Output Total 800 Balance -350 - Medications Medications: Current Medications Abacavir Sulfate (Ziagen) 300 mg PO BID [facility] Last Admin: 06/11/17 09:16 Dose: 300 mg Amlodipine Besylate (Norvasc) 10 mg PO DAILY [facility] Last Admin: 06/11/17 09:06 Dose: 10 mg Carvedilol (Coreg) 25 mg PO BID [facility] Last Admin: 06/11/17 09:07 Dose: 25 mg Clonidine HCl (Catapres) 0.1 mg PO BID [facility] Last Admin: 06/11/17 09:06 Dose: 0.1 mg Diphenhydramine HCl (Benadryl) 50 mg PO Q6 PRN PRN Reason: itchiness Last Admin: 06/11/17 12:25 Dose: 50 mg Dolutegravir Sodium (Tivicay) 50 mg PO DAILY [facility] Last Admin: 06/11/17 09:17 Dose: 50 mg Guaifenesin/Dextromethorphan (Robitussin Dm) 5 ml PO Q4H PRN PRN Reason: Cough Last Admin: 06/09/17 09:38 Dose: 5 ml Heparin Sodium (Porcine) (Heparin) 5,000 units SC Q12 [facility] Last Admin: 06/11/17 09:07 Dose: 5,000 units Piperacillin Sod/Tazobactam Sod (Zosyn 2.25 Gm Iv Premix) 2.25 gm in 50 mls @ 100 mls/hr IVPB Q8H [facility] Last Admin: 06/11/17 11:18 Dose: 100 mls/hr Ibuprofen (Motrin Tab) 400 mg PO Q6H PRN PRN Reason: Fever >100.4 F Last Admin: 06/08/17 11:49 Dose: 400 mg Insulin Aspart (Novolog) 0 unit SC ACHS [facility] PRN Reason: Protocol Last Admin: 06/11/17 12:25 Dose: 4 unit Insulin Glargine (Lantus) 16 unit SC HS [facility] Last Admin: 06/10/17 22:11 Dose: 16 units Lamivudine (Epivir) 150 mg PO DAILY [facility] Last Admin: 06/11/17 09:33 Dose: 150 mg Morphine Sulfate (Morphine) 4 mg IVP Q4 PRN PRN Reason: Pain, severe (8-10) Last Admin: 06/11/17 12:24 Dose: 4 mg Pantoprazole Sodium (Protonix Inj) 40 mg IVP DAILY [facility] Last Admin: 06/11/17 09:20 Dose: Not Given Sertraline HCl (Zoloft) 50 mg PO DAILY [facility] Last Admin: 06/11/17 09:06 Dose: 50 mg - Labs Labs: 06/10/17 11:12 06/11/17 07:09 PT 11.3 SECONDS (9.7-12.2) 06/02/17 19:48 INR 1.0 06/02/17 19:48 APTT 30 SECONDS (21-34) 06/02/17 19:48 - Constitutional Appears: No Acute Distress, Chronically Ill - Eye Exam Eye Exam: EOMI, Normal appearance, PERRL Pupil Exam: NORMAL ACCOMODATION, PERRL - ENT Exam ENT Exam: Mucous Membranes Moist, Normal Exam - Respiratory Exam Respiratory Exam: Clear to Ausculation Bilateral, NORMAL BREATHING PATTERN - Cardiovascular Exam Cardiovascular Exam: REGULAR RHYTHM, +S1, +S2. absent: Murmur - GI/Abdominal Exam GI & Abdominal Exam: Soft, Normal Bowel Sounds. absent: Tenderness - Extremities Exam Extremities Exam: Full ROM, Normal Capillary Refill, Normal Inspection. absent : Joint Swelling, Pedal Edema - Back Exam Back Exam: NORMAL INSPECTION - Neurological Exam Neurological Exam: Alert, Awake, CN II-XII Intact, Normal Gait, Oriented x3 Assessment and Plan - Assessment and Plan (Free Text) Assessment: SAME. WOUND INF [place]. Plan: DISCUSSED WITH PT. WILL BE DISCHARGED HOME IN AM. PO ANTIBIOTICS.
--- NOTE | 2017-06-11 14:34 | CP.PCM.PN ---
Subjective - Date & Time of Evaluation Date of Evaluation: 06/11/17 Time of Evaluation: 14:31 - Subjective Subjective: Podiatry Progress Note - Dr. Coy 36 year old female patient 4 days s/p Left foot 1st ray resection was seen at bedside today. Patient resting in bed comfortably, AAOx3, NAD. Patient admits to mild pain to left foot surgical site. Dressing to Left lower extremity remains c/d/i. No other pedal complaints. Denies N/V/F/D/C/SOB. Objective - Vital Signs/Intake and Output Vital Signs (last 24 hours): Temp Pulse Resp BP Pulse Ox 98.7 F 88 20 172/113 H 99 06/11/17 08:23 06/11/17 08:23 06/11/17 08:23 06/11/17 09:07 06/11/17 08:23 Intake and Output: 06/11/17 06/11/17 06:59 18:59 Intake Total 450 Output Total 800 Balance -350 - Medications Medications: Current Medications Abacavir Sulfate (Ziagen) 300 mg PO BID [facility] Last Admin: 06/11/17 09:16 Dose: 300 mg Amlodipine Besylate (Norvasc) 10 mg PO DAILY [facility] Last Admin: 06/11/17 09:06 Dose: 10 mg Carvedilol (Coreg) 25 mg PO BID [facility] Last Admin: 06/11/17 09:07 Dose: 25 mg Clonidine HCl (Catapres) 0.1 mg PO BID [facility] Last Admin: 06/11/17 09:06 Dose: 0.1 mg Diphenhydramine HCl (Benadryl) 50 mg PO Q6 PRN PRN Reason: itchiness Last Admin: 06/11/17 12:25 Dose: 50 mg Dolutegravir Sodium (Tivicay) 50 mg PO DAILY [facility] Last Admin: 06/11/17 09:17 Dose: 50 mg Guaifenesin/Dextromethorphan (Robitussin Dm) 5 ml PO Q4H PRN PRN Reason: Cough Last Admin: 06/09/17 09:38 Dose: 5 ml Heparin Sodium (Porcine) (Heparin) 5,000 units SC Q12 [facility] Last Admin: 06/11/17 09:07 Dose: 5,000 units Piperacillin Sod/Tazobactam Sod (Zosyn 2.25 Gm Iv Premix) 2.25 gm in 50 mls @ 100 mls/hr IVPB Q8H [facility] Last Admin: 06/11/17 11:18 Dose: 100 mls/hr Ibuprofen (Motrin Tab) 400 mg PO Q6H PRN PRN Reason: Fever >100.4 F Last Admin: 06/08/17 11:49 Dose: 400 mg Insulin Aspart (Novolog) 0 unit SC ACHS [facility] PRN Reason: Protocol Last Admin: 06/11/17 12:25 Dose: 4 unit Insulin Glargine (Lantus) 16 unit SC HS [facility] Last Admin: 06/10/17 22:11 Dose: 16 units Lamivudine (Epivir) 150 mg PO DAILY [facility] Last Admin: 06/11/17 09:33 Dose: 150 mg Morphine Sulfate (Morphine) 4 mg IVP Q4 PRN PRN Reason: Pain, severe (8-10) Last Admin: 06/11/17 12:24 Dose: 4 mg Pantoprazole Sodium (Protonix Inj) 40 mg IVP DAILY [facility] Last Admin: 06/11/17 09:20 Dose: Not Given Sertraline HCl (Zoloft) 50 mg PO DAILY [facility] Last Admin: 06/11/17 09:06 Dose: 50 mg - Labs Labs: 06/10/17 11:12 06/11/17 07:09 PT 11.3 SECONDS (9.7-12.2) 06/02/17 19:48 INR 1.0 06/02/17 19:48 APTT 30 SECONDS (21-34) 06/02/17 19:48 - Constitutional Appears: Well, Non-toxic, No Acute Distress - Head Exam Head Exam: ATRAUMATIC - Extremities Exam Additional comments: Dressing to LLE dirty, intact Derm: Medial foot: Incision site to medial aspect of Left foot well coapted with all sutures intact. Packing strip still intact. No purulent discharge noted. Slight mal-odor present. Mild sero-sanguinous drainage noted. Mild erythema noted around the surgical site. Lateral leg: Superficial ulceration noted on lateral aspect of the left leg measuring approximately 10 cm by 5 cm with a granular/fibrotic base with minimal serosanguinous drainage noted; absent purulence and malodor. Total avulsion of right nail 2 with exposed nail bed; dried, crusted blood present along nail grooves; absent erythema; no drainage, no purulence, no fluctuance, no clinical suspicions for active infection. Vasc: DP and PT pulses non-palpable , Temp gradient warm to warm from proximal to distal. Capillary fill time is diminished. Mild to moderate non-pitting edema noted to L foot. No edema noted to right 2nd digit. Neuro: Protective sensation grossly diminished Ortho: Tenderness on palpation to plantar aspect of left foot - Neurological Exam Neurological Exam: Alert, Awake, Oriented x3 - Psychiatric Exam Psychiatric exam: Normal Affect, Normal Mood Assessment and Plan - Assessment and Plan (Free Text) Assessment: 36 year old female 4 days s/p Left 1st ray Partial amputation Plan: Patient seen and evaluated at bedside this AM discussed in detail with attending, Dr. Coy Afebrile Continue local wound care - saline flush, xeroform, DSD, RAFFY Patient to keep dressing clean/dry/intact, no WB on dressing Patient to WBAT in surgical shoe LLE, to be worn at all times - patient remains noncompliant despite education Continue IV Abx Left foot wound culture FINAL - psedumonas Paucimobilis, coagulase Neg Staphylococcus, corynebacterium Podiatry will continue to follow while patient in house
--- NOTE | 2017-06-11 15:18 | CP.PCM.PN ---
Subjective - Date & Time of Evaluation Date of Evaluation: 06/11/17 Time of Evaluation: 15:32 - Subjective Subjective: Alert, orientedx3, NAD. Objective - Vital Signs/Intake and Output Vital Signs (last 24 hours): Temp Pulse Resp BP Pulse Ox 98.7 F 88 20 110/70 99 06/11/17 08:23 06/11/17 08:23 06/11/17 08:23 06/11/17 10:00 06/11/17 08:23 Intake and Output: 06/11/17 06/11/17 06:59 18:59 Intake Total 450 Output Total 800 Balance -350 - Medications Medications: Current Medications Abacavir Sulfate (Ziagen) 300 mg PO BID [facility] Last Admin: 06/11/17 09:16 Dose: 300 mg Amlodipine Besylate (Norvasc) 10 mg PO DAILY [facility] Last Admin: 06/11/17 09:06 Dose: 10 mg Carvedilol (Coreg) 25 mg PO BID [facility] Last Admin: 06/11/17 09:07 Dose: 25 mg Clonidine HCl (Catapres) 0.1 mg PO BID [facility] Last Admin: 06/11/17 09:06 Dose: 0.1 mg Diphenhydramine HCl (Benadryl) 50 mg PO Q6 PRN PRN Reason: itchiness Last Admin: 06/11/17 12:25 Dose: 50 mg Dolutegravir Sodium (Tivicay) 50 mg PO DAILY [facility] Last Admin: 06/11/17 09:17 Dose: 50 mg Guaifenesin/Dextromethorphan (Robitussin Dm) 5 ml PO Q4H PRN PRN Reason: Cough Last Admin: 06/09/17 09:38 Dose: 5 ml Heparin Sodium (Porcine) (Heparin) 5,000 units SC Q12 [facility] Last Admin: 06/11/17 14:32 Dose: Not Given Piperacillin Sod/Tazobactam Sod (Zosyn 2.25 Gm Iv Premix) 2.25 gm in 50 mls @ 100 mls/hr IVPB Q8H [facility] Last Admin: 06/11/17 11:18 Dose: 100 mls/hr Ibuprofen (Motrin Tab) 400 mg PO Q6H PRN PRN Reason: Fever >100.4 F Last Admin: 06/08/17 11:49 Dose: 400 mg Insulin Aspart (Novolog) 0 unit SC ACHS [facility] PRN Reason: Protocol Last Admin: 06/11/17 12:25 Dose: 4 unit Insulin Glargine (Lantus) 16 unit SC HS [facility] Last Admin: 06/10/17 22:11 Dose: 16 units Lamivudine (Epivir) 150 mg PO DAILY [facility] Last Admin: 06/11/17 09:33 Dose: 150 mg Morphine Sulfate (Morphine) 4 mg IVP Q4 PRN PRN Reason: Pain, severe (8-10) Last Admin: 06/11/17 12:24 Dose: 4 mg Pantoprazole Sodium (Protonix Inj) 40 mg IVP DAILY [facility] Last Admin: 06/11/17 09:20 Dose: Not Given Sertraline HCl (Zoloft) 50 mg PO DAILY [facility] Last Admin: 06/11/17 09:06 Dose: 50 mg - Labs Labs: 06/10/17 11:12 06/11/17 07:09 PT 11.3 SECONDS (9.7-12.2) 06/02/17 19:48 INR 1.0 06/02/17 19:48 APTT 30 SECONDS (21-34) 06/02/17 19:48 Assessment and Plan - Assessment and Plan (Free Text) Assessment: Patient with osteomyelitis to left foot, post op, on iv antibiotics , noncompliant, refusing the PICC line and 6weeks antibiotics treatment as advised by DR Del Valle. Expressed that she wants to go home in the morning. Will put discharge orders as per DR Haven Nathan with 6 weeks of cipro as per DR Del Valle. Advised to follow up with DR Coy in the office Wednesday or Wednesday. To wear the surgical shoe to left foot all the time. Advised to follow up with PMD in 1 week.
--- NOTE | 2017-06-11 18:23 | CP.PCM.PN ---
Subjective - Date & Time of Evaluation Date of Evaluation: 06/11/17 Time of Evaluation: 07:00 - Subjective Subjective: refusing Home IV rx and ALBERT laquita fever / chills Objective - Vital Signs/Intake and Output Vital Signs (last 24 hours): Temp Pulse Resp BP Pulse Ox 98.1 F 84 20 131/75 97 06/11/17 15:15 06/11/17 15:15 06/11/17 15:15 06/11/17 15:15 06/11/17 15:15 Intake and Output: 06/11/17 06/11/17 06:59 18:59 Intake Total 1000 Output Total 800 Balance 200 - Medications Medications: Current Medications Abacavir Sulfate (Ziagen) 300 mg PO BID [facility] Last Admin: 06/11/17 09:16 Dose: 300 mg Amlodipine Besylate (Norvasc) 10 mg PO DAILY [facility] Last Admin: 06/11/17 09:06 Dose: 10 mg Carvedilol (Coreg) 25 mg PO BID [facility] Last Admin: 06/11/17 09:07 Dose: 25 mg Clonidine HCl (Catapres) 0.1 mg PO BID [facility] Last Admin: 06/11/17 09:06 Dose: 0.1 mg Diphenhydramine HCl (Benadryl) 50 mg PO Q6 PRN PRN Reason: itchiness Last Admin: 06/11/17 12:25 Dose: 50 mg Dolutegravir Sodium (Tivicay) 50 mg PO DAILY [facility] Last Admin: 06/11/17 09:17 Dose: 50 mg Guaifenesin/Dextromethorphan (Robitussin Dm) 5 ml PO Q4H PRN PRN Reason: Cough Last Admin: 06/09/17 09:38 Dose: 5 ml Heparin Sodium (Porcine) (Heparin) 5,000 units SC Q12 [facility] Last Admin: 06/11/17 14:32 Dose: Not Given Piperacillin Sod/Tazobactam Sod (Zosyn 2.25 Gm Iv Premix) 2.25 gm in 50 mls @ 100 mls/hr IVPB Q8H [facility] Last Admin: 06/11/17 11:18 Dose: 100 mls/hr Ibuprofen (Motrin Tab) 400 mg PO Q6H PRN PRN Reason: Fever >100.4 F Last Admin: 06/08/17 11:49 Dose: 400 mg Insulin Aspart (Novolog) 0 unit SC ACHS [facility] PRN Reason: Protocol Last Admin: 06/11/17 17:12 Dose: Not Given Insulin Glargine (Lantus) 16 unit SC HS [facility] Last Admin: 06/10/17 22:11 Dose: 16 units Lamivudine (Epivir) 150 mg PO DAILY [facility] Last Admin: 06/11/17 09:33 Dose: 150 mg Morphine Sulfate (Morphine) 4 mg IVP Q4 PRN PRN Reason: Pain, severe (8-10) Last Admin: 06/11/17 17:11 Dose: 4 mg Pantoprazole Sodium (Protonix Inj) 40 mg IVP DAILY [facility] Last Admin: 06/11/17 09:20 Dose: Not Given Sertraline HCl (Zoloft) 50 mg PO DAILY [facility] Last Admin: 06/11/17 09:06 Dose: 50 mg - Labs Labs: 06/10/17 11:12 06/11/17 07:09 PT 11.3 SECONDS (9.7-12.2) 06/02/17 19:48 INR 1.0 06/02/17 19:48 APTT 30 SECONDS (21-34) 06/02/17 19:48 - Constitutional Appears: Non-toxic, Chronically Ill - Head Exam Head Exam: NORMOCEPHALIC - Eye Exam Eye Exam: PERRL - ENT Exam ENT Exam: Mucous Membranes Dry - Neck Exam Neck Exam: absent: Lymphadenopathy - Respiratory Exam Respiratory Exam: Decreased Breath Sounds - Cardiovascular Exam Cardiovascular Exam: REGULAR RHYTHM - GI/Abdominal Exam GI & Abdominal Exam: Distended, Soft - Rectal Exam Rectal Exam: Deferred - Exam Exam: NORMAL INSPECTION Assessment and Plan (1) Diabetic foot infection Status: Acute (2) Osteomyelitis of ankle or foot, acute Status: Acute (3) Chronic ulcer of left leg Status: Chronic (4) Uncontrolled diabetes mellitus Status: Chronic (5) GAEL (acute kidney injury) Status: Acute (6) Abscess and cellulitis Status: Acute - Assessment and Plan (Free Text) Assessment: poor prognosis for limb salvage pt to follow with dr Coy
[2017-06-11] MEDS: (Lantus) Insulin Glargine, Recombinant SC SCH (22:33)
[2017-06-12] MEDS: Morphine 4 MG/ML VIAL IVP PRN ×4 (01:37→14:03)
[2017-06-12] MEDS: guaiFENesin DM 100 mg-10 mg/5 ml UD PO PRN ×3 (01:38→14:04)
[2017-06-12] MEDS: Piperacill/Tazo 2.25gm in Dex 2.25 GM/50 ML BAG IVPB SCH ×2 (02:07→10:10)
[2017-06-12 08:25] VITALS: BP 167/96; PULSE 88; TEMP 98.6; O2SAT 96
[2017-06-12] MEDS: (Novolog) Insulin Aspart, Recombinant 100 u/ml 10 ml vial SC SCH ×2 (10:11→12:52)
--- NOTE | 2017-06-12 10:41 | CP.PCM.PN ---
Subjective - Date & Time of Evaluation Date of Evaluation: 06/12/17 Time of Evaluation: 10:38 - Subjective Subjective: STABLE Objective - Vital Signs/Intake and Output Vital Signs (last 24 hours): Temp Pulse Resp BP Pulse Ox 98.6 F 88 20 167/96 H 96 06/12/17 08:24 06/12/17 08:24 06/12/17 08:24 06/12/17 10:03 06/12/17 08:24 Intake and Output: 06/12/17 06/12/17 06:59 18:59 Intake Total 700 Balance 700 - Medications Medications: Current Medications Abacavir Sulfate (Ziagen) 300 mg PO BID [facility] Last Admin: 06/12/17 10:04 Dose: 300 mg Amlodipine Besylate (Norvasc) 10 mg PO DAILY [facility] Last Admin: 06/12/17 10:00 Dose: 10 mg Carvedilol (Coreg) 25 mg PO BID [facility] Last Admin: 06/12/17 10:03 Dose: 25 mg Clonidine HCl (Catapres) 0.1 mg PO BID [facility] Last Admin: 06/12/17 10:00 Dose: 0.1 mg Diphenhydramine HCl (Benadryl) 50 mg PO Q6 PRN PRN Reason: itchiness Last Admin: 06/12/17 01:37 Dose: 50 mg Dolutegravir Sodium (Tivicay) 50 mg PO DAILY [facility] Last Admin: 06/12/17 10:04 Dose: 50 mg Guaifenesin/Dextromethorphan (Robitussin Dm) 5 ml PO Q4H PRN PRN Reason: Cough Last Admin: 06/12/17 10:05 Dose: 5 ml Heparin Sodium (Porcine) (Heparin) 5,000 units SC Q12 [facility] Last Admin: 06/12/17 10:11 Dose: Not Given Piperacillin Sod/Tazobactam Sod (Zosyn 2.25 Gm Iv Premix) 2.25 gm in 50 mls @ 100 mls/hr IVPB Q8H [facility] Last Admin: 06/12/17 10:10 Dose: 100 mls/hr Ibuprofen (Motrin Tab) 400 mg PO Q6H PRN PRN Reason: Fever >100.4 F Last Admin: 06/08/17 11:49 Dose: 400 mg Insulin Aspart (Novolog) 0 unit SC ACHS [facility] PRN Reason: Protocol Last Admin: 06/12/17 10:11 Dose: Not Given Insulin Glargine (Lantus) 16 unit SC HS [facility] Last Admin: 06/11/17 22:33 Dose: Not Given Lamivudine (Epivir) 150 mg PO DAILY [facility] Last Admin: 06/12/17 10:04 Dose: 150 mg Morphine Sulfate (Morphine) 4 mg IVP Q4 PRN PRN Reason: Pain, severe (8-10) Last Admin: 06/12/17 10:00 Dose: 4 mg Pantoprazole Sodium (Protonix Inj) 40 mg IVP DAILY [facility] Last Admin: 06/12/17 10:11 Dose: Not Given Sertraline HCl (Zoloft) 50 mg PO DAILY [facility] Last Admin: 06/12/17 10:00 Dose: 50 mg - Labs Labs: 06/10/17 11:12 06/11/17 07:09 PT 11.3 SECONDS (9.7-12.2) 06/02/17 19:48 INR 1.0 06/02/17 19:48 APTT 30 SECONDS (21-34) 06/02/17 19:48 - Constitutional Appears: No Acute Distress, Chronically Ill - Eye Exam Eye Exam: EOMI, Normal appearance, PERRL Pupil Exam: NORMAL ACCOMODATION, PERRL - ENT Exam ENT Exam: Mucous Membranes Moist, Normal Exam - Neck Exam Neck Exam: Full ROM, Normal Inspection. absent: Lymphadenopathy - Respiratory Exam Respiratory Exam: Clear to Ausculation Bilateral, NORMAL BREATHING PATTERN - Cardiovascular Exam Cardiovascular Exam: REGULAR RHYTHM, +S1, +S2. absent: Murmur - GI/Abdominal Exam GI & Abdominal Exam: Soft, Normal Bowel Sounds. absent: Tenderness - Exam Exam: Circumcision, NORMAL INSPECTION External exam: NORMAL EXTERNAL EXAM Speculum exam: NORMAL SPECULUM EXAM Bimanual exam: NORMAL BIMANUAL EXAM - Extremities Exam Extremities Exam: Full ROM, Normal Capillary Refill, Normal Inspection. absent : Joint Swelling, Pedal Edema - Back Exam Back Exam: NORMAL INSPECTION Assessment and Plan - Assessment and Plan (Free Text) Assessment: DIABETIC FOOT ULCER. OM. Plan: DISCHARGE HOME. F/U WITH DR. MCKEON.
--- NOTE | 2017-06-12 11:22 | CP.PCM.PN ---
Subjective - Date & Time of Evaluation Date of Evaluation: 06/12/17 Time of Evaluation: 11:19 - Subjective Subjective: Podiatry Progress Note - Dr. Coy 36 year old female patient 5 days s/p Left foot 1st ray resection was seen at bedside today. Patient resting in bed comfortably, AAOx3, NAD. Patient admits to mild pain to left foot surgical site. Dressing to Left lower extremity remains c/d/i. No other pedal complaints. Denies N/V/F/D/C/SOB. Objective - Vital Signs/Intake and Output Vital Signs (last 24 hours): Temp Pulse Resp BP Pulse Ox 98.6 F 88 20 167/96 H 96 06/12/17 08:24 06/12/17 08:24 06/12/17 08:24 06/12/17 10:03 06/12/17 08:24 Intake and Output: 06/12/17 06/12/17 06:59 18:59 Intake Total 700 Balance 700 - Medications Medications: Current Medications Abacavir Sulfate (Ziagen) 300 mg PO BID [facility] Last Admin: 06/12/17 10:04 Dose: 300 mg Amlodipine Besylate (Norvasc) 10 mg PO DAILY [facility] Last Admin: 06/12/17 10:00 Dose: 10 mg Carvedilol (Coreg) 25 mg PO BID [facility] Last Admin: 06/12/17 10:03 Dose: 25 mg Clonidine HCl (Catapres) 0.1 mg PO BID [facility] Last Admin: 06/12/17 10:00 Dose: 0.1 mg Diphenhydramine HCl (Benadryl) 50 mg PO Q6 PRN PRN Reason: itchiness Last Admin: 06/12/17 01:37 Dose: 50 mg Dolutegravir Sodium (Tivicay) 50 mg PO DAILY [facility] Last Admin: 06/12/17 10:04 Dose: 50 mg Guaifenesin/Dextromethorphan (Robitussin Dm) 5 ml PO Q4H PRN PRN Reason: Cough Last Admin: 06/12/17 10:05 Dose: 5 ml Heparin Sodium (Porcine) (Heparin) 5,000 units SC Q12 [facility] Last Admin: 06/12/17 10:11 Dose: Not Given Piperacillin Sod/Tazobactam Sod (Zosyn 2.25 Gm Iv Premix) 2.25 gm in 50 mls @ 100 mls/hr IVPB Q8H [facility] Last Admin: 06/12/17 10:10 Dose: 100 mls/hr Ibuprofen (Motrin Tab) 400 mg PO Q6H PRN PRN Reason: Fever >100.4 F Last Admin: 06/08/17 11:49 Dose: 400 mg Insulin Aspart (Novolog) 0 unit SC ACHS [facility] PRN Reason: Protocol Last Admin: 06/12/17 10:11 Dose: Not Given Insulin Glargine (Lantus) 16 unit SC HS [facility] Last Admin: 06/11/17 22:33 Dose: Not Given Lamivudine (Epivir) 150 mg PO DAILY [facility] Last Admin: 06/12/17 10:04 Dose: 150 mg Morphine Sulfate (Morphine) 4 mg IVP Q4 PRN PRN Reason: Pain, severe (8-10) Last Admin: 06/12/17 10:00 Dose: 4 mg Pantoprazole Sodium (Protonix Inj) 40 mg IVP DAILY [facility] Last Admin: 06/12/17 10:11 Dose: Not Given Sertraline HCl (Zoloft) 50 mg PO DAILY [facility] Last Admin: 06/12/17 10:00 Dose: 50 mg - Labs Labs: 06/10/17 11:12 06/11/17 07:09 PT 11.3 SECONDS (9.7-12.2) 06/02/17 19:48 INR 1.0 06/02/17 19:48 APTT 30 SECONDS (21-34) 06/02/17 19:48 - Constitutional Appears: Well, Non-toxic, No Acute Distress - Extremities Exam Additional comments: Dressing to LLE dirty, intact Derm: Medial foot: Incision site to medial aspect of Left foot well coapted with all sutures intact. Packing strip still intact. No purulent discharge noted. Slight mal-odor present. Mild sero-sanguinous drainage noted. Mild erythema noted around the surgical site. Lateral leg: Superficial ulceration noted on lateral aspect of the left leg measuring approximately 10 cm by 5 cm with a granular/fibrotic base with minimal serosanguinous drainage noted; absent purulence and malodor. Total avulsion of right nail 2 with exposed nail bed; dried, crusted blood present along nail grooves; absent erythema; no drainage, no purulence, no fluctuance, no clinical suspicions for active infection. Vasc: DP and PT pulses non-palpable , Temp gradient warm to warm from proximal to distal. Capillary fill time is diminished. Mild to moderate non-pitting edema noted to L foot. No edema noted to right 2nd digit. Neuro: Protective sensation grossly diminished Ortho: Tenderness on palpation to plantar aspect of left foot - Neurological Exam Neurological Exam: Alert, Awake, Oriented x3 - Psychiatric Exam Psychiatric exam: Normal Affect, Normal Mood Assessment and Plan - Assessment and Plan (Free Text) Assessment: 36 year old female 5 days s/p Left 1st ray Partial amputation Plan: Patient seen and evaluated at bedside this AM with attending Dr. Anneliese Raman applied xeroform, DSD, RAFFY Patient to keep dressing clean/dry/intact, no WB on dressing Patient to WBAT in surgical shoe LLE, to be worn at all times - patient remains noncompliant despite education Continue IV Abx Left foot wound culture FINAL - psedumonas Paucimobilis, coagulase Neg Staphylococcus, corynebacterium bone cx- negative for acute OM patient stable from podiatry standpoint Podiatry will continue to follow while patient in house
--- NOTE | 2017-06-12 14:19 | CP.PCM.PN ---
Subjective - Date & Time of Evaluation Date of Evaluation: 06/12/17 Time of Evaluation: 14:18 - Subjective Subjective: pt is seen and examined, follow up consult is dictated #[id number] Objective - Vital Signs/Intake and Output Vital Signs (last 24 hours): Temp Pulse Resp BP Pulse Ox 98.6 F 88 20 167/96 H 96 06/12/17 08:24 06/12/17 08:24 06/12/17 08:24 06/12/17 10:03 06/12/17 08:24 Intake and Output: 06/12/17 06/12/17 06:59 18:59 Intake Total 700 Balance 700 - Medications Medications: Current Medications Abacavir Sulfate (Ziagen) 300 mg PO BID [facility] Last Admin: 06/12/17 10:04 Dose: 300 mg Amlodipine Besylate (Norvasc) 10 mg PO DAILY [facility] Last Admin: 06/12/17 10:00 Dose: 10 mg Carvedilol (Coreg) 25 mg PO BID [facility] Last Admin: 06/12/17 10:03 Dose: 25 mg Clonidine HCl (Catapres) 0.1 mg PO BID [facility] Last Admin: 06/12/17 10:00 Dose: 0.1 mg Diphenhydramine HCl (Benadryl) 50 mg PO Q6 PRN PRN Reason: itchiness Last Admin: 06/12/17 14:04 Dose: 50 mg Dolutegravir Sodium (Tivicay) 50 mg PO DAILY [facility] Last Admin: 06/12/17 10:04 Dose: 50 mg Guaifenesin/Dextromethorphan (Robitussin Dm) 5 ml PO Q4H PRN PRN Reason: Cough Last Admin: 06/12/17 14:04 Dose: 5 ml Heparin Sodium (Porcine) (Heparin) 5,000 units SC Q12 [facility] Last Admin: 06/12/17 10:11 Dose: Not Given Piperacillin Sod/Tazobactam Sod (Zosyn 2.25 Gm Iv Premix) 2.25 gm in 50 mls @ 100 mls/hr IVPB Q8H [facility] Last Admin: 06/12/17 10:10 Dose: 100 mls/hr Ibuprofen (Motrin Tab) 400 mg PO Q6H PRN PRN Reason: Fever >100.4 F Last Admin: 06/08/17 11:49 Dose: 400 mg Insulin Aspart (Novolog) 0 unit SC ACHS [facility] PRN Reason: Protocol Last Admin: 06/12/17 12:52 Dose: 2 unit Insulin Glargine (Lantus) 16 unit SC HS [facility] Last Admin: 06/11/17 22:33 Dose: Not Given Lamivudine (Epivir) 150 mg PO DAILY [facility] Last Admin: 06/12/17 10:04 Dose: 150 mg Morphine Sulfate (Morphine) 4 mg IVP Q4 PRN PRN Reason: Pain, severe (8-10) Last Admin: 06/12/17 14:03 Dose: 4 mg Pantoprazole Sodium (Protonix Inj) 40 mg IVP DAILY [facility] Last Admin: 06/12/17 10:11 Dose: Not Given Sertraline HCl (Zoloft) 50 mg PO DAILY [facility] Last Admin: 06/12/17 10:00 Dose: 50 mg - Labs Labs: 06/10/17 11:12 06/11/17 07:09 PT 11.3 SECONDS (9.7-12.2) 06/02/17 19:48 INR 1.0 06/02/17 19:48 APTT 30 SECONDS (21-34) 06/02/17 19:48
--- NOTE | 2017-06-13 00:06 | CON ---
DATE: 06/12/2017 FOLLOWUP RENAL CONSULTATION LOCATION: The patient is located in room 354, bed A. REQUESTED BY: Art Nathan MD REASON FOR RENAL CONSULTATION: Acute renal failure, chronic kidney disease, and nephrotic-range proteinuria. HISTORY OF PRESENT ILLNESS: Mrs. Johnson is a 36-year-old young transgender -Wallis[place] female with a past medical history significant for longstanding hypertension, diabetes, osteomyelitis of the foot on the left side, multiple surgeries and HIV positive, was admitted with a pain and swelling of the left foot and subsequently the patient underwent amputation of the left fifth metatarsal resection. The patient is on IV antibiotics. Patient is not in acute distress. Denies any headache, dizziness. Denies any chest pain or palpitation. Denies any fever or cough. No abdominal pain. No nausea, vomiting, diarrhea. PHYSICAL EXAMINATION: VITAL SIGNS: As follows; blood pressure 130/80 and repeat 167/96, pulse 88, respirations 20, temperature 98.6, saturation 96%. Height 6 feet 3 inches and weight is 296. GENERAL: Mrs. Johnson is a 36-year-old young transgender female, well built, well nourished, not in distress. HEENT: Pupils normal and reactive to light and accommodation. Conjunctivae pink. Sclerae anicteric. Tongue is moist. NECK: Trachea is midline. LUNGS: Symmetric on both sides. Bilateral breath sounds present. Clear on auscultation. CVS: [place] at the fifth intercostal space of intermediate midclavicular line. S1, S2 audible. No murmur or gallop. ABDOMEN: Normal in appearance, soft, tympanic. No guarding. No rigidity. No hepatosplenomegaly. SECURITY ALARM TECHNICIAN: The patient is alert, awake, oriented x3. Nonfocal neuro examination. Cranial nerves II through XII grossly intact. Sensory and motor system is within normal limits. EXTREMITIES: No cyanosis, no clubbing, no edema on the right side. The patient has swelling of the left leg and dressing to the left foot. CURRENT MEDICATIONS: Include as follows; amlodipine 5 mg p.o. daily, Zoloft 50 mg p.o. daily, Humalog 16 units subcu b.i.d., Lantus 16 units subcu at bedtime, and ciprofloxacin 250 mg p.o. b.i.d. LABORATORY DATA: Include as follows, as of 06/11/2017; sodium 138, potassium 4.6, chloride 104, CO of 23, BUN 36, creatinine 3.6, glucose 136, and calcium 8.6. Accu-Cheks 175, 335, 170, 144 and 131 today. This morning Accu-Chek is 131 and her creatinine as of 06/02/2017 of 2.7, as of 06/05/2017 creatinine 2.9, as of 06/10/2017 creatinine 3.5, as of 06/11/2017 creatinine 3.6. Wound cultures from the left foot is positive for Pseudomonas, staph coag negative and Corynebacterium. Blood culture x2 negative day #5. IMPRESSION: In summary, Mrs. Johnson is a 36-year-old young transgender -Wallis[place] female with hypertension, diabetes, human immunodeficiency virus positive, osteomyelitis of the foot status post resection of the fifth metatarsal, on IV antibiotics with increased BUN, creatinine and proteinuria, 3+ in UA and blood 1+. 1. Acute renal failure on chronic kidney disease, cannot rule out acute tubular necrosis versus interstitial nephritis secondary to medications. 2. Hypertension. 3. Uncontrolled diabetes. 4. Osteomyelitis of the foot status post resection of the fifth metatarsal. 5. Human immunodeficiency virus positive. PLAN: Continue her current medications. Follow up with PMD after discharge. The patient can be followed as an outpatient in the office. Cannot rule out underlying diabetic nephropathy versus HIV-associated nephropathy. We will follow with you. Thank you for allowing me to participate in your patient's care. Weston Brambila MD [facility]
--- NOTE | 2017-06-19 06:41 | DS ---
HISTORY OF PRESENT ILLNESS: This is a 36-year-old black female with transgender history, was referred to the emergency room for left foot pain. The patient was seen by Dr. Del Valle and Dr. Coy. The patient has chronic left toe infections with diabetic ulcer and minimal discharge. No history of fever. The patient is HIV positive. The patient's medications are reviewed. The patient was admitted in the hospital for osteomyelitis of the left big toe. During the hospital course, the patient was awake, alert, oriented, and comfortable. No fever. PHYSICAL EXAMINATION: VITAL SIGNS: Within normal limits. LUNGS: Clear. HEART: Within normal limits. ABDOMEN: No nausea or vomiting. EXTREMITIES: Left foot, the patient has chronic cellulitis and dry skin with open ulcer on the big toe. Dr. Coy and Dr. Del Valle were consulted. The patient has partial amputation of the big toe done. The patient continued on IV antibiotics. The patient needed to be on IV antibiotics for longer time, but patient refused PICC line and subacute and outpatient management for IV antibiotics. The patient was discharged home with followup by Dr. Del Valle and Dr. Coy. FINAL DIAGNOSES: 1. Left big toe chronic diabetic ulcer. 2. Osteomyelitis of the big toe. 3. Diabetes. 4. Chronic renal failure. 5. Human immunodeficiency virus positive. Art Nathan MD
== END 2017-06-12 17:20 | disposition home or self-care (01) | DRG 987 ==
LOC: C.ER 18:19 → C.9E 21:05 → C.3T 06-03 15:03
PROVIDERS: ADMIT Internal Medicine; ATTEND Internal Medicine
PROC: 0QTP0ZZ Resection of Left Metatarsal, Open Approach (ICD-10-PCS; principal; 2017-06-07 07:45)
DX: E11.621 Type 2 diabetes mellitus with foot ulcer (principal); A41.9 Sepsis, unspecified organism; M86.172 Other acute osteomyelitis, left ankle and foot; N17.0 Acute kidney failure with tubular necrosis; R65.20 Severe sepsis without septic shock; N18.4 Chronic kidney disease, stage 4 (severe); I82.402 Acute embolism and thrombosis of unspecified deep veins of left lower extremity; L03.116 Cellulitis of left lower limb; E11.21 Type 2 diabetes mellitus with diabetic nephropathy; L97.929 Non-pressure chronic ulcer of unspecified part of left lower leg with unspecified severity; L97.529 Non-pressure chronic ulcer of other part of left foot with unspecified severity; E11.69 Type 2 diabetes mellitus with other specified complication; E11.622 Type 2 diabetes mellitus with other skin ulcer; E11.40 Type 2 diabetes mellitus with diabetic neuropathy, unspecified; S91.204A Unspecified open wound of right lesser toe(s) with damage to nail, initial encounter; D63.1 Anemia in chronic kidney disease; E11.22 Type 2 diabetes mellitus with diabetic chronic kidney disease; F32.9 Major depressive disorder, single episode, unspecified; E11.65 Type 2 diabetes mellitus with hyperglycemia; I12.9 Hypertensive chronic kidney disease with stage 1 through stage 4 chronic kidney disease, or unspecified chronic kidney disease; F17.210 Nicotine dependence, cigarettes, uncomplicated; Z91.19 Patient's noncompliance with other medical treatment and regimen; Z89.412 Acquired absence of left great toe; Z88.6 Allergy status to analgesic agent; F64.9 Gender identity disorder, unspecified; R80.9 Proteinuria, unspecified; X58.XXXA Exposure to other specified factors, initial encounter; B96.5 Pseudomonas (aeruginosa) (mallei) (pseudomallei) as the cause of diseases classified elsewhere; Z79.4 Long term (current) use of insulin; Z21 Asymptomatic human immunodeficiency virus [HIV] infection status

== ENCOUNTER 2017-07-05 21:14 | Inpatient (IN) | payer MEDICARE ==
[2017-07-05 21:14] VITALS: BMI 41.8
[2017-07-05] MEDS ORDERED: Piperacillin/Tazobact 3.375 gm 100 ML IV STA (22:10)
--- NOTE | 2017-07-05 22:12 | C.PDOC ---
History Of Present Illness 36-year-old genetic female presents to the ED with chronic left foot osteomyelitis. Of note, patient is transgender and identifies as male. Patient was recently admitted 06/07-06/12 and left AMA refusing a PICC line for chronic antibiotics and subacute rehab. Pt does not know any meds she is on. States she is being seen by Dr. Coy every Wednesday. Patient has chronically swollen left leg with pain that she states is only relieved by Morphine. Left lower leg with IVC filter, and hx of DVT. Time Seen by Provider: 07/05/17 21:39 Chief Complaint (Nursing): Lower Extremity Problem/Injury History Per: Patient History/Exam Limitations: no limitations Onset/Duration Of Symptoms: Days Current Symptoms Are (Timing): Still Present Past Medical History Reviewed: Historical Data, Nursing Documentation, Vital Signs Vital Signs: Last Vital Signs Temp 102 F H 07/05/17 21:32 Pulse 91 H 07/05/17 21:32 Resp 20 07/05/17 21:32 BP 163/86 H 07/05/17 21:32 Pulse Ox 98 07/05/17 22:59 - Medical History PMH: Depression, Diabetes, Deep Vein Thrombosis, HIV, HTN, Peripheral Edema, Chronic Pain Denies: Chronic Kidney Disease Surgical History: Other Surgeries: Left foot surgery, Left toe amputation - [facility] Procedures ANAL FISTULOTOMY (03/15/13) CENTRAL VENOUS CATHETER PLACEMENT WITH GUIDANCE (08/24/13) DEBRIDEMENT OF NAIL, NAIL BED OR NAIL FOLD (07/09/14) DETACHMENT AT LEFT 1ST TOE, COMPLETE, OPEN APPROACH (02/12/16) DETACHMENT AT LEFT 3RD TOE, COMPLETE, OPEN APPROACH (03/20/15) DETACHMENT AT LEFT 4TH TOE, COMPLETE, OPEN APPROACH (03/20/15) DETACHMENT AT LEFT FOOT, PARTIAL 3RD RAY, OPEN APPROACH (10/23/15) DETACHMENT AT LEFT FOOT, PARTIAL 4TH RAY, OPEN APPROACH (10/23/15) DRAINAGE OF BUTTOCK SUBCU/FASCIA, OPEN APPROACH (05/16/15) DRAINAGE OF LEFT FOOT, OPEN APPROACH (06/11/15) ELECTROCOAG RECT LES NEC (03/15/13) EXCIS DEBRIDE OF WOUND, INFECT, OR BURN (08/28/14) EXCISION OF L FOOT SUBCU/FASCIA, OPEN APPROACH (10/23/15) EXCISION OF LEFT FOOT SKIN, EXTERNAL APPROACH (10/29/16) EXCISION OF LEFT METATARSAL, OPEN APPROACH (10/29/16) EXCISION OF LEFT TOE PHALANX, OPEN APPROACH (02/12/16) EXCISION OF TOE NAIL, EXTERNAL APPROACH (02/12/16) INJECT ANTIBIOTIC (02/08/14) INJECT STEROID (02/09/12) INJECTION INTO JOINT (02/09/12) INSERTION OF INFUSION DEV INTO L SUBCLAV VEIN, PERC APPROACH (10/23/15) INSERTION OF INFUSION DEV INTO SUP VENA CAVA, PERC APPROACH (10/29/16) LOC EXC LES METATAR/TAR (12/09/13) OTH LOCAL EXC OR DEST OF LESION OR TISSUE OF ANUS (03/15/13) OTHER SKIN & SUBQ I D (10/24/14) PART OSTECT-METATAR/TAR (07/09/14) RESECTION OF LEFT METATARSAL, OPEN APPROACH (06/02/17) VASCULAR CATH IRRIGATION (01/10/14) VENOUS CATHETERIZATION NEC (01/18/14) Family History: States: ID, CAD, Diabetes, Hypertension - Social History Hx Tobacco Use: No Hx Alcohol Use: Yes Hx Substance Use: Yes (OCCASIONALLY) - Immunization History Hx Tetanus Toxoid Vaccination: Yes Hx Influenza Vaccination: No Hx Pneumococcal Vaccination: Yes Review Of Systems Except As Marked, All Systems Reviewed And Found Negative. Constitutional: Positive for: Fever. Negative for: Chills Respiratory: Negative for: Shortness of Breath Musculoskeletal: Positive for: Leg Pain (and chronic swelling, left leg) Neurological: Negative for: Weakness, Numbness Physical Exam - Physical Exam Appears: Non-toxic, No Acute Distress, Other (Morbidly obese) Skin: Warm, Dry Head: Atraumatic, Normacephalic Eye(s): bilateral: Normal Inspection, PERRL, EOMI Oral Mucosa: Moist Neck: Normal ROM, Supple Chest: Symmetrical Cardiovascular: Rhythm Regular, No Murmur Respiratory: Normal Breath Sounds, No Accessory Muscle Use, No Rhonchi, No Wheezing Gastrointestinal/Abdominal: Soft, No Tenderness, No Guarding Extremity: Tenderness (of the left lower extremity from the mid-tibia up), Swelling (chronic increased swelling of left upper leg, no erythema), Other ( left lower leg with lichenification, foul smelling flap to the plantar surface, sutures in place. + Amputated left toes, foul-smelling pus coming from the wound ) Pulses: Left Dorsalis Pedis: Normal, Right Dorsalis Pedis: Normal Neurological/Psych: Oriented x3, Normal Speech ED Course And Treatment - Laboratory Results Result Diagrams: 07/05/17 23:07 07/05/17 23:07 Lab Interpretation: Abnormal (+ anemia, + leukocytosis, + reactive elev plts, + chronic renal failure) ECG: Interpreted By Me ECG Rhythm: Sinus Tachycardia ECG Interpretation: Abnormal Rate From EC O2 Sat by Pulse Oximetry: 98 (RA) Pulse Ox Interpretation: Normal - Radiology CXR: Interpreted by Me, Viewed By Me CXR Interpretation: Yes: Cardiomegaly - Other Rad Left foot X-ray X-Ray: Interpreted by Me, Viewed By Me Interpretation: + osteomyelitis Reevaluation Time: 23:58 Reassessment Condition: Improved Medical Decision Making Medical Decision Makin:00 Discussed case w/ Dr. Del Valle, ID consult, recommends IV vanco and zosyn Time: 22:07 Initial Plan: * EKG * Labs * CXR * X-ray of left foot * NSS IV fluids * Morphine 4 mg IV * IV Vancomycin * IV Zosyn Spoke with Dr. Coy for podiatry consult, will see patient in the AM 22:[address] Haven Nathan, recommends Lovenox 40mg subq and will ultrasound leg in the morning to rule out DVT. OK to admit 0000: L foot osteomyelitis: persistent with leukocytosis and foul smelling discharge restart Vanco/Zosyn Dr Del Valle to follow for ID Dr. Coy recommends amputation, pt has refused in light of failing tx for osteomyelitis this may be a best option. L leg edema elevated d-dimer may be related to infection or new DVT pt refused lovenox SQ w informed consent, "because it makes me nauseated" consider doppler US L leg in AM Uncontrolled DM RISS Anemia: Chronic Chronic renal failure ? related to HIV, DM, HTN prior Renal consults appreciated Disposition Doctor Will See Patient In The: Hospital Counseled Patient/Family Regarding: Studies Performed, Diagnosis - Disposition Disposition: HOSPITALIZED Disposition Time: 22:17 Condition: FAIR - Clinical Impression Clinical Impression: Obesities, morbid, HIV (human immunodeficiency virus infection), Diabetic foot infection, Diabetes mellitus type 1, uncontrolled, insulin dependent, Leg edema , left - Scribe Statement The provider has reviewed the documentation as recorded by the Scribe (Padma Altman) Provider Attestation: All medical record entries made by the Scribe were at my direction and personally dictated by me. I have reviewed the chart and agree that the record accurately reflects my personal performance of the history, physical exam, medical decision making, and the department course for this patient. I have also personally directed, reviewed, and agree with the discharge instructions and disposition.
[2017-07-05] MEDS ORDERED: Vancomycin 1 GM 1 GM/250 ML BAG IV SCH (22:15)
[2017-07-05] MEDS ORDERED: Sodium Chloride 0.9% 1,000 ML IV ONE (22:18)
[2017-07-05] MEDS ORDERED: Enoxaparin 40 mg Syringe SC STA (22:18)
[2017-07-05] MEDS ORDERED: Piperacill/Tazo 3.375gm in Dex 3.375 GM/50 ML BAG IVPB ONE (23:00)
[2017-07-05 23:09] LABS: BASO # 0.1 K/uL (0.0-0.2); BASO % 0.6 % (0.0-2.0); EOS # 0.5 K/uL (0.0-0.7); EOS % 3.5 % (0.0-4.0); HEMOGLOBIN 8.1 g/dL (11.0-16.0); LYMPH # 2.2 K/uL (1.0-4.3); LYMPH % 14.7 % (20.0-40.0); MEAN CELL VOLUME 85.8 fL (81.0-99.0); MEAN CORPUSCULAR HEMOGLOBIN 28.7 pg (27.0-31.0); MEAN CORPUSCULAR HGB CONC 33.5 g/dL (33.0-37.0); MEAN PLATELET VOLUME 6.9 fL (7.2-11.7); MONO # 1.3 K/uL (0.0-0.8); MONO % 8.7 % (0.0-10.0); NEUT # 10.7 K/uL (1.8-7.0); NEUT % 72.5 % (50.0-75.0); NRBC % 0.1 % (0.0-2.0); RBC 2.82 Mil/uL (3.80-5.20); RED CELL DISTRIBUTION WIDTH 14.7 % (11.5-14.5); WHITE BLOOD COUNT 14.7 K/uL (4.8-10.8)
[2017-07-05] MEDS ORDERED: Morphine 4 MG/ML VIAL ONE (23:14)
[2017-07-05] MEDS ORDERED: Enoxaparin 40 mg Syringe ONE (23:14)
[2017-07-05] MEDS ORDERED: Vancomycin 1 gm/NS 200 ml 1 GM/200 ML BAG IVPB ONE (23:15)
[2017-07-05 23:22] LABS: ALB/GLOB RATIO 0.5 (1.0-2.1); ALBUMIN 3.1 g/dL (3.5-5.0); CALCIUM 8.7 mg/dl (8.6-10.4)
[2017-07-05 23:25] LABS: INR 1.3; PROTHROMBIN TIME 14.4 SECONDS (9.7-12.2)
[2017-07-05 23:34] LABS: TROPONIN I 0.061 ng/mL (0.00-0.120)
[2017-07-05 23:34] LABS: SQUAMOUS EPITHIAL 1 /hpf (0-5); URINE AMORPHOUS SEDIMENT RARE /ul (<OCC); URINE BACTERIA RARE (<OCC); URINE BILIRUBIN NEGATIVE (NEGATIVE); URINE BLOOD 2+ (NEGATIVE); URINE CLARITY Hazy (Clear); URINE COLOR Yellow (YELLOW); URINE GLUCOSE (UA) 1+ mg/dL (Normal); URINE LEUKOCYTE ESTERASE NEG Leu/uL (Negative); URINE PROTEIN 3+ mg/dL (NEGATIVE); URINE UROBILINOGEN NORMAL mg/dL (0.2-1.0)
[2017-07-05 23:47] LABS: BARBITURATES, UR NEGATIVE (NEGATIVE); BENZODIAZEPINES, UR NEGATIVE (NEGATIVE); OPIATES, UR NEGATIVE (NEGATIVE); PHENCYCLIDINE, UR NEGATIVE (NEGATIVE)
[2017-07-06] MEDS ORDERED: Morphine 4 MG/ML VIAL IV ONE (04:00)
--- NOTE | 2017-07-06 09:55 | RAD ---
PROCEDURE: Left Foot Radiographs. HISTORY: COMPARISON: None06/03/2017. FINDINGS: BONES: Extensive postsurgical changes along the 2nd 3rd 4th and 5th metatarsal phalangeal joints renoted. Compared to the 06/03/2017 study the mineralization of the proximal 5th metatarsal as seen previously is not appreciated on this exam as dense in its mineralization. Surgical resection here and/or interval progressive osteomyelitis, accentuated at this site is a consideration. This patient has clinically suspect chronic osteomyelitis. There are lucencies in the soft tissues consistent with interval surgical intervention. No diffuse tiny bubbles of gas-forming cellulitis seen. However a gas-forming cellulitis is not excluded -clinical correlation is needed particularly regarding any interval surgical intervention bordering the 5th metatarsal. The history is not available regarding any additional recent surgery since the prior exam. JOINTS: Postsurgical changes as above SOFT TISSUES: Abnormal fuse soft tissue swelling with multiple large pockets of gas present. Interval surgical intervention and or focal gas forming collections are not excluded. Clinical correlation is essential with regard to any interval surgical intervention here. No tiny diffuse bubbles of gas-forming cellulitis noted OTHER FINDINGS: None. IMPRESSION: Interval changes in this patient with prior extensive postsurgical changes an a clinically suspect chronic osteomyelitis status are noted. The interval changes are accentuated around the 5th metatarsal proximal base as detailed above. Clinical correlation is essential particular regarding any interval surgical intervention since the 06/03/2017 study if no such interval surgical intervention has occurred and interval progressive osteomyelitis particularly affecting this 5th metatarsal base needs to be considered with extensive overlying soft tissue changes consistent with concomitant cellulitis detailed above.
[2017-07-06] MEDS ORDERED: [UNRECOGNIZED DRUG - OTHER] PO SCH (10:00)
[2017-07-06] MEDS: Morphine 4 MG/ML VIAL IV PRN ×3 (10:19→23:55)
[2017-07-06] MEDS: (Novolog) Insulin Aspart, Recombinant 100 u/ml 10 ml vial SC SCH ×2 (10:46→17:52)
--- NOTE | 2017-07-06 11:00 | CP.PCM.CON ---
History of Present Illness - History of Present Illness History of Present Illness: pt is seen and examined, full consult is dictated #[id number] 1. Justin on ckd 2. nephrotic range proteinuria r/o DM nephropathy 3. left foot infection, r/o OM 4. Fever, r/o sepsis 5. HTN 6. DM 7. nausea, vomitings, r/o gastroparesis start ivf 1/2 ns at 100 ml/hr check blood c/s, urine c/s iv abx a sper ID follow up with podiatry Past Patient History - Infectious Disease Hx of Infectious Diseases: None - Past Medical History & Family History Past Medical History?: Yes - Past Social History Smoking Status: Former Smoker - CARDIAC Hx Hypertension: Yes Hx Peripheral Edema: Yes - PULMONARY Hx Respiratory Disorders: No - NEUROLOGICAL Hx Neurological Disorder: No - HEENT Hx HEENT Problems: No - RENAL Hx Chronic Kidney Disease: No - HEMATOLOGICAL/ONCOLOGICAL Hx Human Immunodeficiency Virus (HIV): Yes - INTEGUMENTARY Hx Dermatological Problems: Yes Other/Comment: ULCER BOTTOM LEFT FOOT LEFT FOOT SUTURE LINES TOES - MUSCULOSKELETAL/RHEUMATOLOGICAL Hx Musculoskeletal Disorders: Yes Hx Falls: No Hx Osteomyelitis: Yes (LEFT FOOT, receiving daily infusion) - GASTROINTESTINAL Hx Gastrointestinal Disorders: No - GENITOURINARY/GYNECOLOGICAL Hx Genitourinary Disorders: No - PSYCHIATRIC Hx Depression: Yes Hx Substance Use: Yes (OCCASIONALLY) - ANESTHESIA Hx Anesthesia: Yes Hx Anesthesia Reactions: No (unknown) Meds Allergies/Adverse Reactions: Allergies Allergy/AdvReac Type Severity Reaction Status Date / Time acetaminophen [From Tylenol] Allergy RASH Verified 07/05/17 21:39 aspirin Allergy RASH Verified 07/05/17 21:39 hydromorphone [From Dilaudid] Allergy Verified 07/05/17 21:39 ketorolac tromethamine Allergy RASH Verified 07/05/17 21:39 [From Toradol] meperidine HCl [From Demerol] Allergy RASH Verified 07/05/17 21:39 oxycodone HCl [From Percocet] Allergy RASH Verified 07/05/17 21:39 peas Allergy ANAPHYLAXIS Verified 07/05/17 21:39 propoxyphene napsylate Allergy RASH Verified 07/05/17 21:39 [From Darvocet-N] - Medications Medications: Current Medications Amlodipine Besylate (Norvasc) 5 mg PO DAILY [facility]OMARA Last Admin: 07/06/17 10:19 Dose: 5 mg Home Med (Emtricitab/Rilpiviri/Tenof Ala [Odefsey Tablet]) 1 each PO DAILY [facility] Insulin Aspart (Novolog) 16 unit SC BID [facility] Insulin Glargine (Lantus) 16 unit SC HS [facility] Morphine Sulfate (Morphine) 4 mg IV Q6 PRN PRN Reason: Pain, severe (8-10) Last Admin: 07/06/17 10:19 Dose: 4 mg Sertraline HCl (Zoloft) 50 mg PO DAILY [facility] Last Admin: 07/06/17 10:19 Dose: 50 mg Results - Vital Signs Recent Vital Signs: Last Vital Signs Temp 98.2 F 07/06/17 07:00 Pulse 96 H 07/06/17 07:00 Resp 18 07/06/17 07:00 BP 132/82 07/06/17 07:00 Pulse Ox 96 07/06/17 07:00 - Labs Result Diagrams: 07/05/17 23:07 07/05/17 23:07 Labs: Laboratory Results - last 24 hr 07/05/17 07/05/17 07/05/17 23:07 23:07 23:07 WBC 14.7 H D RBC 2.82 L Hgb 8.1 L Hct 24.2 L MCV 85.8 MCH 28.7 MCHC 33.5 RDW 14.7 H Plt Count 423 H D MPV 6.9 L Neut % (Auto) 72.5 Lymph % (Auto) 14.7 L [place] % (Auto) 8.7 Eos % (Auto) 3.5 Baso % (Auto) 0.6 Neut # (Auto) 10.7 H Lymph # (Auto) 2.2 [place] # (Auto) 1.3 H Eos # (Auto) 0.5 Baso # (Auto) 0.1 PT 14.4 H INR 1.3 APTT 25 D-Dimer, Quantitative 2892 H Sodium 142 Potassium 4.7 Chloride 105 Carbon Dioxide 21 L Anion Gap 21 H BUN 33 H Creatinine 3.9 H Est GFR ( Amer) 16 Est GFR (Non-Af Amer) 13 POC Glucose (mg/dL) Random Glucose 111 H Calcium 8.7 Total Bilirubin 0.9 AST 27 ALT 11 Alkaline Phosphatase 103 Troponin I 0.0610 NT-Pro-B Natriuret Pep 1770 H Total Protein 9.1 H Albumin 3.1 L Globulin 6.0 H Albumin/Globulin Ratio 0.5 L Urine Color Urine Clarity Urine pH Ur Specific [place] Urine Protein Urine Glucose (UA) Urine Ketones Urine Blood Urine Nitrate Urine Bilirubin Urine Urobilinogen Ur Leukocyte Esterase Urine WBC (Auto) Urine RBC (Auto) Ur Squamous Epith Cells Amorphous Sediment Urine Bacteria Urine Opiates Screen Urine Methadone Screen Ur Barbiturates Screen Ur Phencyclidine Scrn Ur Amphetamines Screen U Benzodiazepines Scrn U Oth Cocaine Metabols U Cannabinoids Screen 07/05/17 07/05/17 07/06/17 23:27 23:27 06:34 WBC RBC Hgb Hct MCV MCH MCHC RDW Plt Count MPV Neut % (Auto) Lymph % (Auto) [place] % (Auto) Eos % (Auto) Baso % (Auto) Neut # (Auto) Lymph # (Auto) [place] # (Auto) Eos # (Auto) Baso # (Auto) PT INR APTT D-Dimer, Quantitative Sodium Potassium Chloride Carbon Dioxide Anion Gap BUN Creatinine Est GFR ( Amer) Est GFR (Non-Af Amer) POC Glucose (mg/dL) 160 H Random Glucose Calcium Total Bilirubin AST ALT Alkaline Phosphatase Troponin I NT-Pro-B Natriuret Pep Total Protein Albumin Globulin Albumin/Globulin Ratio Urine Color Yellow Urine Clarity Hazy Urine pH 6.0 Ur Specific [place] 1.017 Urine Protein 3+ H Urine Glucose (UA) 1+ Urine Ketones Negative Urine Blood 2+ H Urine Nitrate Negative Urine Bilirubin Negative Urine Urobilinogen Normal Ur Leukocyte Esterase Neg Urine WBC (Auto) 4 Urine RBC (Auto) 29 H Ur Squamous Epith Cells 1 Amorphous Sediment Rare H Urine Bacteria Rare Urine Opiates Screen Negative Urine Methadone Screen Negative Ur Barbiturates Screen Negative Ur Phencyclidine Scrn Negative Ur Amphetamines Screen Negative U Benzodiazepines Scrn Negative U Oth Cocaine Metabols Negative U Cannabinoids Screen Positive H
--- NOTE | 2017-07-06 11:06 | CP.PCM.CON ---
History of Present Illness - History of Present Illness History of Present Illness: 36 year old female with PMHx including DM, DVT, HIV, HTN was seen in the ED for complaint of left foot pain., assoc nausea and vomiting x 3 weeks Patient is well known to Dr. Coy. She states that she is having fevers but denies any n/v /c/sob/cp. refused IV antibiotics and ALBERT last admission long hx of noncompliance last seen approx 3 mos ago- never followed up now with worsening infection left foot/ chronic OM and renal failure will adjust antivirals, check t cells and viral load poor prognosis may need 6 weeks iv rx await or cultures Review of Systems - Review of Systems All systems: reviewed and no additional remarkable complaints except - Constitutional Constitutional: As Per HPI - EENT Eyes: Blurred Vision, Decreased Night Vision. absent: As Per HPI, Blind Spots, Change in Vision, Diplopia, Discharge, Dry Eye, Exophthalmos, Floaters, Irritation, Itchy Eyes, Loss of Peripheral Vision, Pain, Photophobia, Requires Corrective Lenses, Sees Flashes, Spots in Vision, Tunnel Vision, Other Visual Disturbances, Loss of Vision, Other Ears: absent: As Per HPI, Decreased Hearing, Ear Discharge, Ear Pain, Tinnitus, Abnormal Hearing, Disequilibrium, Dizziness, Other Nose/Mouth/Throat: absent: As Per HPI, Epistaxis, Nasal Congestion, Nasal Discharge, Nasal Obstruction, Nasal Trauma, Nose Pain, Post Nasal Drip, Sinus Pain, Sinus Pressure, Bleeding Gums, Change in Voice, Dental Pain, Dry Mouth, Dysphagia, Halitosis, Hoarsness, Lip Swelling, Mouth Lesions, Mouth Pain, Odynophagia, Sore Throat, Throat Swelling, Tongue Swelling, Facial Pain, Neck Pain, Neck Mass, Other - Breasts Breasts: absent: As Per HPI, Change in Shape, Mass, Pain, Nipple Discharge, Nipple Inversion, Skin Changes, Swelling, Other - Cardiovascular Cardiovascular: absent: As Per HPI, Acrocyanosis, Chest Pain, Chest Pain at Rest , Chest Pain with Activity, Claudication, Diaphoresis, Dyspnea, Dyspnea on Exertion, Edema, Irregular Heart Rhythm, Pain Radiating to Arm/Neck/Jaw, Leg Edema, Leg Ulcers, Lightheadedness, Orthopnea, Palpitations, Paroxysmal Nocturnal Dyspnea, Pedal Edema, Radiating Pain, Rapid Heart Rate, Slow Heart Rate, Syncope, Other - Respiratory Respiratory: absent: As Per HPI, Cough, Dyspnea, Hemoptysis, Dyspnea on Exertion , Wheezing, Snoring, Stridor, Pain on Inspiration, Chest Congestion, Excessive Mucous Production, Change in Mucous Color, Pain with Coughing, Other - Gastrointestinal Gastrointestinal: absent: As Per HPI, Abdominal Pain, Belching, Bloating, Change in Bowel Habits, Change in Stool Character, Coffee Ground Emesis, Constipation, Cramping, Diarrhea, Dyspepsia, Dysphagia, Early Satiety, Excessive Flatus, Fecal Incontinence, Heartburn, Hematemesis, Hematochezia, Loose Stools, Melena, Nausea, Odynophagia, Temesmus, Vomiting, Other - Genitourinary Genitourinary: absent: As Per HPI, Change in Urinary Stream, Difficulty Urinating, Dysuria, Flank Pain, Hematuria, Pyuria, Nocturia, Urinary Incontinence, Urinary Frequency, Urinary Hesitance, Urinary Urgency, Voiding Freq/Small Amts, Freq UTI, Hx Renal/Bladder Calculi, Hx /Renal Surgery, Bladder Distension, Other - Reproductive: Female Reproductive:Female: absent: As Per HPI, Amenorrhea, Amenorrhea/ Control, Currently Menstual, Cycle <21 Days, Cycle >35 Days, Cycle Variable, Menses 1-7 Days, Menses >/= 8 Days, Menses Variable, Cycle > 4 Weeks Between, No Menses for 6 Months, Heavy Menses, Light Menses, Normal Menses, Spotting Between Cycles , S/P Hysterectomy, Menopausal, Post Menopausal, Premenarche, Abnormal Vaginal Bleeding, Dysmenorrhea, Dyspareunia, Genital Lesions, Genital Pruritis, Pelvic Pain, Prolapse Symptoms, Sexual Dysfunction, Vaginal Discharge, Vaginal Dryness , Vaginal Odor, Vaginal Pruritis, Other - Menstruation Menstruation: absent: As Per HPI, Amenorrhea, Amenorrhea/ Control, Currently Menstual, Cycle <21 Days, Cycle >35 Days, Cycle Variable, Menses 1-7 Days, Menses >/= 8 Days, Menses Variable, Cycle > 4 Weeks Between, No Menses for 6 Months, Heavy Menses, Light Menses, Normal Menses, Spotting Between Cycles , S/P Hysterectomy, Menopausal, Post Menopausal, Premenarche, Abnormal Vaginal Bleeding, Dysmenorrhea, Other - Musculoskeletal Musculoskeletal: As Per HPI - Integumentary Integumentary: As Per HPI, Skin Pain, Wounds - Neurological Neurological: absent: As Per HPI, Abnormal Gait, Abnormal Hearing, Abnormal Movements, Abnormal Speech, Behavioral Changes, Burning Sensations, Confusion, Convulsions, Disequilibrium, Dizziness, Numbness, Focal Weakness, Frequent Falls , Headaches, Lack of Coordination, Loss of Vision, Memory Loss, Paresthesias, Radicular Pain, Restless Legs, Sensory Deficit, Syncope, Tingling, Tremor, Vertigo, Weakness, Other Visual Disturbances, Other - Psychiatric Psychiatric: absent: As Per HPI, Abnormal Sleep Pattern, Anhedonia, Anxiety, Auditory Hallucinations, Behavioral Changes, Change in Appetite, Change in Libido, Confusion, Depression, Difficulty Concentrating, Hallucinations, Homicidal Ideation, Hopelessness, Irritability, Memory Loss, Mood Swings, Panic Attacks, Paranoia, Suicidal Ideation, Visual Hallucinations, Tactile Hallucinations, Other - Endocrine Endocrine: absent: As Per HPI, Change in Body Appearance, Change in Libido, Cold Intolorance, Deepening of Voice, Excessive Sweating, Fatigue, Flushing, Heat Intolorance, Increase in Ring/Shoe/Hat Size, Palpitations, Polydipsia, Polyphagia, Polyuria, Other - Hematologic/Lymphatic Hematologic: absent: As Per HPI, Easy Bleeding, Easy Bruising, Lymphadenopathy, Other Past Patient History - Infectious Disease Hx of Infectious Diseases: None - Past Medical History & Family History Past Medical History?: Yes - Past Social History Smoking Status: Former Smoker - CARDIAC Hx Hypertension: Yes Hx Peripheral Edema: Yes - PULMONARY Hx Respiratory Disorders: No - NEUROLOGICAL Hx Neurological Disorder: No - HEENT Hx HEENT Problems: No - RENAL Hx Chronic Kidney Disease: No - HEMATOLOGICAL/ONCOLOGICAL Hx Human Immunodeficiency Virus (HIV): Yes - INTEGUMENTARY Hx Dermatological Problems: Yes Other/Comment: ULCER BOTTOM LEFT FOOT LEFT FOOT SUTURE LINES TOES - MUSCULOSKELETAL/RHEUMATOLOGICAL Hx Musculoskeletal Disorders: Yes Hx Falls: No Hx Osteomyelitis: Yes (LEFT FOOT, receiving daily infusion) - GASTROINTESTINAL Hx Gastrointestinal Disorders: No - GENITOURINARY/GYNECOLOGICAL Hx Genitourinary Disorders: No - PSYCHIATRIC Hx Depression: Yes Hx Substance Use: Yes (OCCASIONALLY) - ANESTHESIA Hx Anesthesia: Yes Hx Anesthesia Reactions: No (unknown) Meds Allergies/Adverse Reactions: Allergies Allergy/AdvReac Type Severity Reaction Status Date / Time acetaminophen [From Tylenol] Allergy RASH Verified 07/05/17 21:39 aspirin Allergy RASH Verified 07/05/17 21:39 hydromorphone [From Dilaudid] Allergy Verified 07/05/17 21:39 ketorolac tromethamine Allergy RASH Verified 07/05/17 21:39 [From Toradol] meperidine HCl [From Demerol] Allergy RASH Verified 07/05/17 21:39 oxycodone HCl [From Percocet] Allergy RASH Verified 07/05/17 21:39 peas Allergy ANAPHYLAXIS Verified 07/05/17 21:39 propoxyphene napsylate Allergy RASH Verified 07/05/17 21:39 [From Darvocet-N] - Medications Medications: Current Medications Amlodipine Besylate (Norvasc) 5 mg PO DAILY [facility] Last Admin: 07/06/17 10:19 Dose: 5 mg Home Med (Emtricitab/Rilpiviri/Tenof Ala [Odefsey Tablet]) 1 each PO DAILY [facility] Sodium Chloride (Sodium Chloride 0.45%) 1,000 mls @ 100 mls/hr IV .Q10H [facility] Insulin Aspart (Novolog) 16 unit SC BID [facility] Insulin Glargine (Lantus) 16 unit SC HS [facility] Morphine Sulfate (Morphine) 4 mg IV Q6 PRN PRN Reason: Pain, severe (8-10) Last Admin: 07/06/17 10:19 Dose: 4 mg Sertraline HCl (Zoloft) 50 mg PO DAILY [facility] Last Admin: 07/06/17 10:19 Dose: 50 mg Physical Exam - Constitutional Appears: Non-toxic, Chronically Ill - Head Exam Head Exam: ATRAUMATIC, NORMOCEPHALIC - Eye Exam Eye Exam: PERRL. absent: Scleral icterus - ENT Exam ENT Exam: Mucous Membranes Dry, Normal External Ear Exam, Normal Oropharynx - Neck Exam Neck exam: Negative for: Lymphadenopathy, Thyromegaly - Respiratory Exam Respiratory Exam: Decreased Breath Sounds, Rhonchi - Cardiovascular Exam Cardiovascular Exam: REGULAR RHYTHM, +S1, +S2 - GI/Abdominal Exam GI & Abdominal Exam: Diminished Bowel Sounds, Soft. absent: Guarding, Rebound, Rigid - Rectal Exam Rectal Exam: Deferred - Exam Exam: NORMAL INSPECTION - Extremities Exam Extremities exam: Positive for: pedal pulses present. Negative for: calf tenderness, pedal edema, tenderness - Neurological Exam Neurological exam: Alert, CN II-XII Intact, Oriented x3, Reflexes Normal - Psychiatric Exam Psychiatric exam: Depressed - Skin Additional comments: swelling and deformity Left foot with foul smelling drainge Results - Vital Signs Recent Vital Signs: Last Vital Signs Temp 98.2 F 07/06/17 07:00 Pulse 96 H 07/06/17 07:00 Resp 18 07/06/17 07:00 BP 132/82 07/06/17 07:00 Pulse Ox 96 07/06/17 07:00 - Labs Result Diagrams: 07/05/17 23:07 07/05/17 23:07 Labs: Laboratory Results - last 24 hr 07/05/17 07/05/17 07/05/17 23:07 23:07 23:07 WBC 14.7 H D RBC 2.82 L Hgb 8.1 L Hct 24.2 L MCV 85.8 MCH 28.7 MCHC 33.5 RDW 14.7 H Plt Count 423 H D MPV 6.9 L Neut % (Auto) 72.5 Lymph % (Auto) 14.7 L [place] % (Auto) 8.7 Eos % (Auto) 3.5 Baso % (Auto) 0.6 Neut # (Auto) 10.7 H Lymph # (Auto) 2.2 [place] # (Auto) 1.3 H Eos # (Auto) 0.5 Baso # (Auto) 0.1 PT 14.4 H INR 1.3 APTT 25 D-Dimer, Quantitative 2892 H Sodium 142 Potassium 4.7 Chloride 105 Carbon Dioxide 21 L Anion Gap 21 H BUN 33 H Creatinine 3.9 H Est GFR ( Amer) 16 Est GFR (Non-Af Amer) 13 POC Glucose (mg/dL) Random Glucose 111 H Calcium 8.7 Total Bilirubin 0.9 AST 27 ALT 11 Alkaline Phosphatase 103 Troponin I 0.0610 NT-Pro-B Natriuret Pep 1770 H Total Protein 9.1 H Albumin 3.1 L Globulin 6.0 H Albumin/Globulin Ratio 0.5 L Urine Color Urine Clarity Urine pH Ur Specific [place] Urine Protein Urine Glucose (UA) Urine Ketones Urine Blood Urine Nitrate Urine Bilirubin Urine Urobilinogen Ur Leukocyte Esterase Urine WBC (Auto) Urine RBC (Auto) Ur Squamous Epith Cells Amorphous Sediment Urine Bacteria Urine Opiates Screen Urine Methadone Screen Ur Barbiturates Screen Ur Phencyclidine Scrn Ur Amphetamines Screen U Benzodiazepines Scrn U Oth Cocaine Metabols U Cannabinoids Screen 07/05/17 07/05/17 07/06/17 23:27 23:27 06:34 WBC RBC Hgb Hct MCV MCH MCHC RDW Plt Count MPV Neut % (Auto) Lymph % (Auto) [place] % (Auto) Eos % (Auto) Baso % (Auto) Neut # (Auto) Lymph # (Auto) [place] # (Auto) Eos # (Auto) Baso # (Auto) PT INR APTT D-Dimer, Quantitative Sodium Potassium Chloride Carbon Dioxide Anion Gap BUN Creatinine Est GFR ( Amer) Est GFR (Non-Af Amer) POC Glucose (mg/dL) 160 H Random Glucose Calcium Total Bilirubin AST ALT Alkaline Phosphatase Troponin I NT-Pro-B Natriuret Pep Total Protein Albumin Globulin Albumin/Globulin Ratio Urine Color Yellow Urine Clarity Hazy Urine pH 6.0 Ur Specific [place] 1.017 Urine Protein 3+ H Urine Glucose (UA) 1+ Urine Ketones Negative Urine Blood 2+ H Urine Nitrate Negative Urine Bilirubin Negative Urine Urobilinogen Normal Ur Leukocyte Esterase Neg Urine WBC (Auto) 4 Urine RBC (Auto) 29 H Ur Squamous Epith Cells 1 Amorphous Sediment Rare H Urine Bacteria Rare Urine Opiates Screen Negative Urine Methadone Screen Negative Ur Barbiturates Screen Negative Ur Phencyclidine Scrn Negative Ur Amphetamines Screen Negative U Benzodiazepines Scrn Negative U Oth Cocaine Metabols Negative U Cannabinoids Screen Positive H Assessment & Plan (1) Gangrene associated with type 2 diabetes mellitus Status: Acute (2) Gangrene associated with type 2 diabetes mellitus Status: Acute (3) Diabetes mellitus type 1, uncontrolled, insulin dependent Status: Acute (4) Diabetic foot infection Status: Acute (5) Leg edema, left Status: Acute (6) HIV (human immunodeficiency virus infection) Status: Chronic (7) Obesities, morbid Status: Chronic (8) GAEL (acute kidney injury) Status: Acute Priority: Medium (9) Abscess and cellulitis Status: Acute - Assessment and Plan (Free Text) Assessment: recc : GI Renal and psych eval checjk cultures IV antibiotics hydration poor prognosis
--- NOTE | 2017-07-06 11:14 | CARD ---
APPROVED REPORT EKG Measurement Heart [id number] ND [id number] <Conclusion> Sinus tachycardia Rightward axis Septal infarct, age undetermined Abnormal ECG
--- NOTE | 2017-07-06 11:39 | RAD ---
PROCEDURE: CHEST RADIOGRAPH, 1 VIEW HISTORY: SOB COMPARISON: None available. FINDINGS: LUNGS: Clear. PLEURA: No pneumothorax or pleural fluid seen. CARDIOVASCULAR: Cardiomegaly. No evidence of acute, significant cardiovascular disease. OSSEOUS STRUCTURES: No significant abnormalities. VISUALIZED UPPER ABDOMEN: Normal. OTHER FINDINGS: None. IMPRESSION: No active disease. No acute/significant interval changes. Concordant results with the preliminary interpretation rendered by the emergency department physician procedure.
[2017-07-06] MEDS: Sodium Chloride 0.45% 1,000 ML IV SCH ×3 (12:00→22:42)
[2017-07-06] MEDS: Cefepime IV 1 gm in Dextrose 1 GM/50 ML BAG IVPB SCH (13:14)
--- NOTE | 2017-07-06 13:27 | CP.PCM.PN ---
Subjective - Date & Time of Evaluation Date of Evaluation: 07/06/17 Time of Evaluation: 13:25 - Subjective Subjective: CONDITION SAME. FOOT PAIN PRESENT. LT FOOT INF. O/M. Objective - Vital Signs/Intake and Output Vital Signs (last 24 hours): Temp Pulse Resp BP Pulse Ox 98.2 F 96 H 18 132/82 96 07/06/17 07:00 07/06/17 07:00 07/06/17 07:00 07/06/17 07:00 07/06/17 07:00 - Medications Medications: Current Medications Amlodipine Besylate (Norvasc) 5 mg PO DAILY [facility] Last Admin: 07/06/17 10:19 Dose: 5 mg Home Med (Patient's Own Medication) 1 tab PO DAILY [facility] Sodium Chloride (Sodium Chloride 0.45%) 1,000 mls @ 100 mls/hr IV .Q10H [facility] Last Admin: 07/06/17 12:00 Dose: 100 mls/hr Cefepime HCl (Maxipime Iv 1 Gm Premix) 1 gm in 50 mls @ 100 mls/hr IVPB Q24H [id number] PRN Reason: Protocol Last Admin: 07/06/17 13:14 Dose: 100 mls/hr Insulin Aspart (Novolog) 16 unit SC BID [facility] Last Admin: 07/06/17 10:46 Dose: Not Given Insulin Glargine (Lantus) 16 unit SC HS [facility] Morphine Sulfate (Morphine) 4 mg IV Q6 PRN PRN Reason: Pain, severe (8-10) Last Admin: 07/06/17 10:19 Dose: 4 mg Sertraline HCl (Zoloft) 50 mg PO DAILY [facility] Last Admin: 07/06/17 10:19 Dose: 50 mg - Labs Labs: 07/05/17 23:07 07/05/17 23:07 PT 14.4 SECONDS (9.7-12.2) H 07/05/17 23:07 INR 1.3 07/05/17 23:07 APTT 25 SECONDS (21-34) 07/05/17 23:07 - Constitutional Appears: No Acute Distress, Chronically Ill - Eye Exam Eye Exam: PERRL - ENT Exam ENT Exam: Mucous Membranes Moist - Respiratory Exam Respiratory Exam: Clear to Ausculation Bilateral, NORMAL BREATHING PATTERN - Cardiovascular Exam Cardiovascular Exam: REGULAR RHYTHM, +S1, +S2. absent: Murmur - GI/Abdominal Exam GI & Abdominal Exam: Soft, Normal Bowel Sounds. absent: Tenderness - Extremities Exam Extremities Exam: Full ROM, Normal Capillary Refill, Normal Inspection. absent : Joint Swelling, Pedal Edema - Back Exam Back Exam: NORMAL INSPECTION - Neurological Exam Neurological Exam: Alert, Awake, CN II-XII Intact, Normal Gait, Oriented x3 Assessment and Plan - Assessment and Plan (Free Text) Assessment: LT FOOT OPEN ULCER. CRF. HIV. NON COMPLIANCE. Plan: PER DR. MCKEON.
[2017-07-06] MEDS: ODEFSEY PO SCH (13:35)
--- NOTE | 2017-07-06 13:47 | CP.PCM.CON ---
History of Present Illness - History of Present Illness History of Present Illness: Podiatry consult note- Dr. Coy This is a 36 yo transgender patient (identified as female) w/ pmhx DM, DVT, HIV , HTN who was seen at the bedside today for left foot infection. Pt is well- known to Dr. Coy. Patient has been non-compliant and has refused Dr. Coy's recommendations or a partial foot amputation and refuses to go to [facility]. Pt says she last saw Dr. Coy last week in the wound care center but her left foot is now getting worse and complains of a foul odor. She reports minimal pain to the foot but has noticed drainage. Of note pt had surgery 06/07/17 for resection of infected 5th metatarsal. Pt admits to nausea and vomitting, denies f,c,sob,cp or weakness. offers no further complaints. Review of Systems - Review of Systems Review of Systems: all systems reviewed and found negative outside hpi Past Patient History - Infectious Disease Hx of Infectious Diseases: None - Past Medical History & Family History Past Medical History?: Yes - Past Social History Smoking Status: Former Smoker - CARDIAC Hx Hypertension: Yes Hx Peripheral Edema: Yes - PULMONARY Hx Respiratory Disorders: No - NEUROLOGICAL Hx Neurological Disorder: No - HEENT Hx HEENT Problems: No - RENAL Hx Chronic Kidney Disease: No - HEMATOLOGICAL/ONCOLOGICAL Hx Human Immunodeficiency Virus (HIV): Yes - INTEGUMENTARY Hx Dermatological Problems: Yes Other/Comment: ULCER BOTTOM LEFT FOOT LEFT FOOT SUTURE LINES TOES - MUSCULOSKELETAL/RHEUMATOLOGICAL Hx Musculoskeletal Disorders: Yes Hx Falls: No Hx Osteomyelitis: Yes (LEFT FOOT, receiving daily infusion) - GASTROINTESTINAL Hx Gastrointestinal Disorders: No - GENITOURINARY/GYNECOLOGICAL Hx Genitourinary Disorders: No - PSYCHIATRIC Hx Depression: Yes Hx Substance Use: Yes (OCCASIONALLY) - ANESTHESIA Hx Anesthesia: Yes Hx Anesthesia Reactions: No (unknown) Meds Allergies/Adverse Reactions: Allergies Allergy/AdvReac Type Severity Reaction Status Date / Time acetaminophen [From Tylenol] Allergy RASH Verified 07/05/17 21:39 aspirin Allergy RASH Verified 07/05/17 21:39 hydromorphone [From Dilaudid] Allergy Verified 07/05/17 21:39 ketorolac tromethamine Allergy RASH Verified 07/05/17 21:39 [From Toradol] meperidine HCl [From Demerol] Allergy RASH Verified 07/05/17 21:39 oxycodone HCl [From Percocet] Allergy RASH Verified 07/05/17 21:39 peas Allergy ANAPHYLAXIS Verified 07/05/17 21:39 propoxyphene napsylate Allergy RASH Verified 07/05/17 21:39 [From Darvocet-N] - Medications Medications: Current Medications Amlodipine Besylate (Norvasc) 5 mg PO DAILY [facility] Last Admin: 07/06/17 10:19 Dose: 5 mg Home Med (Patient's Own Medication) 1 tab PO DAILY [facility] Last Admin: 07/06/17 13:35 Dose: 1 tab Sodium Chloride (Sodium Chloride 0.45%) 1,000 mls @ 100 mls/hr IV .Q10H [facility] Last Admin: 07/06/17 12:00 Dose: 100 mls/hr Cefepime HCl (Maxipime Iv 1 Gm Premix) 1 gm in 50 mls @ 100 mls/hr IVPB Q24H [facility] PRN Reason: Protocol Last Admin: 07/06/17 13:14 Dose: 100 mls/hr Insulin Aspart (Novolog) 16 unit SC BID [facility] Last Admin: 07/06/17 10:46 Dose: Not Given Insulin Glargine (Lantus) 16 unit SC HS [facility] Morphine Sulfate (Morphine) 4 mg IV Q6 PRN PRN Reason: Pain, severe (8-10) Last Admin: 07/06/17 10:19 Dose: 4 mg Sertraline HCl (Zoloft) 50 mg PO DAILY [facility] Last Admin: 07/06/17 10:19 Dose: 50 mg Physical Exam - Constitutional Appears: Non-toxic, No Acute Distress - Extremities Exam Extremities exam: Negative for: calf tenderness Additional comments: Left lower ext exam: VASC- DP pulse is palpable, PT pulses is non-palpable due to edema, cap refill < 3 sec to digits 1-4, 3+ pitting edema is noted to dorsum of foot and anterior leg NEURO- gross and protective pedal sensation are intact DERM- surgical site to plantar-lateral foot is coapted with sutures intact, there is slight serous drainage noted from surgical site, there is an ulceration noted to distal lateral leg meausres approx. 3.0x5.0x0.3cm with mixed fibrogranular base, neg PTB, + malodor, neg fluctuance MSK-slight tenderness to palp of leg and foot wounds - Neurological Exam Neurological exam: Alert, CN II-XII Intact, Oriented x3 - Psychiatric Exam Psychiatric exam: Normal Affect, Normal Mood Results - Vital Signs Recent Vital Signs: Last Vital Signs Temp 98.2 F 07/06/17 07:00 Pulse 96 H 07/06/17 07:00 Resp 18 07/06/17 07:00 BP 132/82 07/06/17 07:00 Pulse Ox 96 07/06/17 07:00 - Labs Result Diagrams: 07/05/17 23:07 07/05/17 23:07 Labs: Laboratory Results - last 24 hr 07/05/17 07/05/17 07/05/17 23:07 23:07 23:07 WBC 14.7 H D RBC 2.82 L Hgb 8.1 L Hct 24.2 L MCV 85.8 MCH 28.7 MCHC 33.5 RDW 14.7 H Plt Count 423 H D MPV 6.9 L Neut % (Auto) 72.5 Lymph % (Auto) 14.7 L [place] % (Auto) 8.7 Eos % (Auto) 3.5 Baso % (Auto) 0.6 Neut # (Auto) 10.7 H Lymph # (Auto) 2.2 [place] # (Auto) 1.3 H Eos # (Auto) 0.5 Baso # (Auto) 0.1 PT 14.4 H INR 1.3 APTT 25 D-Dimer, Quantitative 2892 H Sodium 142 Potassium 4.7 Chloride 105 Carbon Dioxide 21 L Anion Gap 21 H BUN 33 H Creatinine 3.9 H Est GFR ( Amer) 16 Est GFR (Non-Af Amer) 13 POC Glucose (mg/dL) Random Glucose 111 H Calcium 8.7 Total Bilirubin 0.9 AST 27 ALT 11 Alkaline Phosphatase 103 Troponin I 0.0610 NT-Pro-B Natriuret Pep 1770 H Total Protein 9.1 H Albumin 3.1 L Globulin 6.0 H Albumin/Globulin Ratio 0.5 L Urine Color Urine Clarity Urine pH Ur Specific [place] Urine Protein Urine Glucose (UA) Urine Ketones Urine Blood Urine Nitrate Urine Bilirubin Urine Urobilinogen Ur Leukocyte Esterase Urine WBC (Auto) Urine RBC (Auto) Ur Squamous Epith Cells Amorphous Sediment Urine Bacteria Urine Opiates Screen Urine Methadone Screen Ur Barbiturates Screen Ur Phencyclidine Scrn Ur Amphetamines Screen U Benzodiazepines Scrn U Oth Cocaine Metabols U Cannabinoids Screen 07/05/17 07/05/17 07/06/17 23:27 23:27 06:34 WBC RBC Hgb Hct MCV MCH MCHC RDW Plt Count MPV Neut % (Auto) Lymph % (Auto) [place] % (Auto) Eos % (Auto) Baso % (Auto) Neut # (Auto) Lymph # (Auto) [place] # (Auto) Eos # (Auto) Baso # (Auto) PT INR APTT D-Dimer, Quantitative Sodium Potassium Chloride Carbon Dioxide Anion Gap BUN Creatinine Est GFR ( Amer) Est GFR (Non-Af Amer) POC Glucose (mg/dL) 160 H Random Glucose Calcium Total Bilirubin AST ALT Alkaline Phosphatase Troponin I NT-Pro-B Natriuret Pep Total Protein Albumin Globulin Albumin/Globulin Ratio Urine Color Yellow Urine Clarity Hazy Urine pH 6.0 Ur Specific [place] 1.017 Urine Protein 3+ H Urine Glucose (UA) 1+ Urine Ketones Negative Urine Blood 2+ H Urine Nitrate Negative Urine Bilirubin Negative Urine Urobilinogen Normal Ur Leukocyte Esterase Neg Urine WBC (Auto) 4 Urine RBC (Auto) 29 H Ur Squamous Epith Cells 1 Amorphous Sediment Rare H Urine Bacteria Rare Urine Opiates Screen Negative Urine Methadone Screen Negative Ur Barbiturates Screen Negative Ur Phencyclidine Scrn Negative Ur Amphetamines Screen Negative U Benzodiazepines Scrn Negative U Oth Cocaine Metabols Negative U Cannabinoids Screen Positive H 07/06/17 11:05 WBC RBC Hgb Hct MCV MCH MCHC RDW Plt Count MPV Neut % (Auto) Lymph % (Auto) [place] % (Auto) Eos % (Auto) Baso % (Auto) Neut # (Auto) Lymph # (Auto) [place] # (Auto) Eos # (Auto) Baso # (Auto) PT INR APTT D-Dimer, Quantitative Sodium Potassium Chloride Carbon Dioxide Anion Gap BUN Creatinine Est GFR ( Amer) Est GFR (Non-Af Amer) POC Glucose (mg/dL) 166 H Random Glucose Calcium Total Bilirubin AST ALT Alkaline Phosphatase Troponin I NT-Pro-B Natriuret Pep Total Protein Albumin Globulin Albumin/Globulin Ratio Urine Color Urine Clarity Urine pH Ur Specific [place] Urine Protein Urine Glucose (UA) Urine Ketones Urine Blood Urine Nitrate Urine Bilirubin Urine Urobilinogen Ur Leukocyte Esterase Urine WBC (Auto) Urine RBC (Auto) Ur Squamous Epith Cells Amorphous Sediment Urine Bacteria Urine Opiates Screen Urine Methadone Screen Ur Barbiturates Screen Ur Phencyclidine Scrn Ur Amphetamines Screen U Benzodiazepines Scrn U Oth Cocaine Metabols U Cannabinoids Screen Assessment & Plan - Assessment and Plan (Free Text) Assessment: 36 yo female patient with chronic left foot OM 2/2 uncontrolled diabetic neuropathy Plan: Pt S&E at bedside with Dr. Coy present Chart, labs and vitals reviewed: tmax overnight 102.4, afebrile currently. L foot x-rays reviewed: signal changes consistent with possible OM of 5th metatarsal base. LLE MRI ordered (r/o abscess) IV abx as per ID Wound dressed with betadine, DSD Podiatry will follow
--- NOTE | 2017-07-06 15:58 | CP.PCM.CON ---
<William Yeboah - Last Filed: 07/06/17 15:46> History of Present Illness - History of Present Illness History of Present Illness: PGY5 GI Fellow Consult Note Patient is a 36yo transgender female with PMHx significant for uncontrolled DM ( most recent A1c 11.1 in 2016), HIV (CD4 267 on 06/04/17), HIV, HTN, CKD, osteomyelitis, DVT who presented to the ED with complaint of fever/chills and non-healing left foot wounds. Our service has been consulted for assistance with the patient's ongoing nausea and vomiting. The patient states that 3-4 weeks ago she developed productive cough while hospitalized for ongoing issues with her left foot. In the time since, she has developed significant posttussive emesis, often times with undigested food. For the last year, patient admits to difficulty with digestion of meals, feeling like food "sits" in her upper abdomen and won't pass. Heartburn/reflux occurs with typical triggers such as citrus fruit, onion and alcohol and she was using Prilosec as needed with modest relief. Since admission, the patient has been again started on antibiotics and podiatry, infectious disease and nephrology are following her case. She denies constipation, fever, chills, abdominal pain, dysphagia, odynophagia, NSAID use. PMHx: See HPI PSHx: Left 3-5th metatarsal amputation, IVC filter FHx: Multiple non-first degree relatives with unknown cancers Social: +Tobacco use, +marijuana use, Rare EtOH use Endo: No prior endoscopic evaluations 12 system ROS performed and negative except where stated. Past Patient History - Infectious Disease Hx of Infectious Diseases: None - Past Medical History & Family History Past Medical History?: Yes - Past Social History Smoking Status: Former Smoker - CARDIAC Hx Hypertension: Yes Hx Peripheral Edema: Yes - PULMONARY Hx Respiratory Disorders: No - NEUROLOGICAL Hx Neurological Disorder: No - HEENT Hx HEENT Problems: No - RENAL Hx Chronic Kidney Disease: No - HEMATOLOGICAL/ONCOLOGICAL Hx Human Immunodeficiency Virus (HIV): Yes - INTEGUMENTARY Hx Dermatological Problems: Yes Other/Comment: ULCER BOTTOM LEFT FOOT LEFT FOOT SUTURE LINES TOES - MUSCULOSKELETAL/RHEUMATOLOGICAL Hx Musculoskeletal Disorders: Yes Hx Falls: No Hx Osteomyelitis: Yes (LEFT FOOT, receiving daily infusion) - GASTROINTESTINAL Hx Gastrointestinal Disorders: No - GENITOURINARY/GYNECOLOGICAL Hx Genitourinary Disorders: No - PSYCHIATRIC Hx Depression: Yes Hx Substance Use: Yes (OCCASIONALLY) - ANESTHESIA Hx Anesthesia: Yes Hx Anesthesia Reactions: No (unknown) Meds Allergies/Adverse Reactions: Allergies Allergy/AdvReac Type Severity Reaction Status Date / Time acetaminophen [From Tylenol] Allergy RASH Verified 07/05/17 21:39 aspirin Allergy RASH Verified 07/05/17 21:39 hydromorphone [From Dilaudid] Allergy Verified 07/05/17 21:39 ketorolac tromethamine Allergy RASH Verified 07/05/17 21:39 [From Toradol] meperidine HCl [From Demerol] Allergy RASH Verified 07/05/17 21:39 oxycodone HCl [From Percocet] Allergy RASH Verified 07/05/17 21:39 peas Allergy ANAPHYLAXIS Verified 07/05/17 21:39 propoxyphene napsylate Allergy RASH Verified 07/05/17 21:39 [From Darvocet-N] - Medications Medications: Current Medications Amlodipine Besylate (Norvasc) 5 mg PO DAILY [facility] Last Admin: 07/06/17 10:19 Dose: 5 mg Home Med (Patient's Own Medication) 1 tab PO DAILY [facility] Last Admin: 07/06/17 13:35 Dose: 1 tab Sodium Chloride (Sodium Chloride 0.45%) 1,000 mls @ 100 mls/hr IV .Q10H [facility] Last Admin: 07/06/17 12:00 Dose: 100 mls/hr Cefepime HCl (Maxipime Iv 1 Gm Premix) 1 gm in 50 mls @ 100 mls/hr IVPB Q24H [facility] PRN Reason: Protocol Last Admin: 07/06/17 13:14 Dose: 100 mls/hr Insulin Aspart (Novolog) 16 unit SC BID [facility] Last Admin: 07/06/17 10:46 Dose: Not Given Insulin Glargine (Lantus) 16 unit SC HS [facility] Morphine Sulfate (Morphine) 4 mg IV Q6 PRN PRN Reason: Pain, severe (8-10) Last Admin: 07/06/17 10:19 Dose: 4 mg Sertraline HCl (Zoloft) 50 mg PO DAILY [facility] Last Admin: 07/06/17 10:19 Dose: 50 mg Physical Exam - Constitutional Appears: Non-toxic, No Acute Distress, Other (obese) - Eye Exam Eye Exam: EOMI, PERRL - ENT Exam ENT Exam: Mucous Membranes Moist - Respiratory Exam Respiratory Exam: Rales (L>R). absent: Clear to Auscultation Bilateral, Rhonchi , Wheezes - Cardiovascular Exam Cardiovascular Exam: RRR, +S1, +S2 - GI/Abdominal Exam GI & Abdominal Exam: Normal Bowel Sounds, Soft. absent: Distended, Firm, Guarding, Organomegaly, Rigid, Tenderness - Extremities Exam Additional comments: Left leg with significant edema, absent 3-5th digits on left foot - Neurological Exam Neurological exam: Alert, Oriented x3 - Psychiatric Exam Psychiatric exam: Normal Affect, Normal Mood - Skin Skin Exam: Dry, Warm Additional comments: excoriations on arms, abdomen Results - Vital Signs Recent Vital Signs: Last Vital Signs Temp 98.2 F 07/06/17 07:00 Pulse 96 H 07/06/17 07:00 Resp 18 07/06/17 07:00 BP 132/82 07/06/17 07:00 Pulse Ox 96 07/06/17 07:00 - Labs Result Diagrams: 07/05/17 23:07 07/05/17 23:07 Labs: Laboratory Results - last 24 hr 07/05/17 07/05/17 07/05/17 23:07 23:07 23:07 WBC 14.7 H D RBC 2.82 L Hgb 8.1 L Hct 24.2 L MCV 85.8 MCH 28.7 MCHC 33.5 RDW 14.7 H Plt Count 423 H D MPV 6.9 L Neut % (Auto) 72.5 Lymph % (Auto) 14.7 L [place] % (Auto) 8.7 Eos % (Auto) 3.5 Baso % (Auto) 0.6 Neut # (Auto) 10.7 H Lymph # (Auto) 2.2 [place] # (Auto) 1.3 H Eos # (Auto) 0.5 Baso # (Auto) 0.1 PT 14.4 H INR 1.3 APTT 25 D-Dimer, Quantitative 2892 H Sodium 142 Potassium 4.7 Chloride 105 Carbon Dioxide 21 L Anion Gap 21 H BUN 33 H Creatinine 3.9 H Est GFR ( Amer) 16 Est GFR (Non-Af Amer) 13 POC Glucose (mg/dL) Random Glucose 111 H Calcium 8.7 Total Bilirubin 0.9 AST 27 ALT 11 Alkaline Phosphatase 103 Troponin I 0.0610 NT-Pro-B Natriuret Pep 1770 H Total Protein 9.1 H Albumin 3.1 L Globulin 6.0 H Albumin/Globulin Ratio 0.5 L Urine Color Urine Clarity Urine pH Ur Specific Lithia Urine Protein Urine Glucose (UA) Urine Ketones Urine Blood Urine Nitrate Urine Bilirubin Urine Urobilinogen Ur Leukocyte Esterase Urine WBC (Auto) Urine RBC (Auto) Ur Squamous Epith Cells Amorphous Sediment Urine Bacteria Urine Opiates Screen Urine Methadone Screen Ur Barbiturates Screen Ur Phencyclidine Scrn Ur Amphetamines Screen U Benzodiazepines Scrn U Oth Cocaine Metabols U Cannabinoids Screen 07/05/17 07/05/17 07/06/17 23:27 23:27 06:34 WBC RBC Hgb Hct MCV MCH MCHC RDW Plt Count MPV Neut % (Auto) Lymph % (Auto) [place] % (Auto) Eos % (Auto) Baso % (Auto) Neut # (Auto) Lymph # (Auto) [place] # (Auto) Eos # (Auto) Baso # (Auto) PT INR APTT D-Dimer, Quantitative Sodium Potassium Chloride Carbon Dioxide Anion Gap BUN Creatinine Est GFR ( Amer) Est GFR (Non-Af Amer) POC Glucose (mg/dL) 160 H Random Glucose Calcium Total Bilirubin AST ALT Alkaline Phosphatase Troponin I NT-Pro-B Natriuret Pep Total Protein Albumin Globulin Albumin/Globulin Ratio Urine Color Yellow Urine Clarity Hazy Urine pH 6.0 Ur Specific Lithia 1.017 Urine Protein 3+ H Urine Glucose (UA) 1+ Urine Ketones Negative Urine Blood 2+ H Urine Nitrate Negative Urine Bilirubin Negative Urine Urobilinogen Normal Ur Leukocyte Esterase Neg Urine WBC (Auto) 4 Urine RBC (Auto) 29 H Ur Squamous Epith Cells 1 Amorphous Sediment Rare H Urine Bacteria Rare Urine Opiates Screen Negative Urine Methadone Screen Negative Ur Barbiturates Screen Negative Ur Phencyclidine Scrn Negative Ur Amphetamines Screen Negative U Benzodiazepines Scrn Negative U Oth Cocaine Metabols Negative U Cannabinoids Screen Positive H 07/06/17 11:05 WBC RBC Hgb Hct MCV MCH MCHC RDW Plt Count MPV Neut % (Auto) Lymph % (Auto) [place] % (Auto) Eos % (Auto) Baso % (Auto) Neut # (Auto) Lymph # (Auto) [place] # (Auto) Eos # (Auto) Baso # (Auto) PT INR APTT D-Dimer, Quantitative Sodium Potassium Chloride Carbon Dioxide Anion Gap BUN Creatinine Est GFR ( Amer) Est GFR (Non-Af Amer) POC Glucose (mg/dL) 166 H Random Glucose Calcium Total Bilirubin AST ALT Alkaline Phosphatase Troponin I NT-Pro-B Natriuret Pep Total Protein Albumin Globulin Albumin/Globulin Ratio Urine Color Urine Clarity Urine pH Ur Specific Lithia Urine Protein Urine Glucose (UA) Urine Ketones Urine Blood Urine Nitrate Urine Bilirubin Urine Urobilinogen Ur Leukocyte Esterase Urine WBC (Auto) Urine RBC (Auto) Ur Squamous Epith Cells Amorphous Sediment Urine Bacteria Urine Opiates Screen Urine Methadone Screen Ur Barbiturates Screen Ur Phencyclidine Scrn Ur Amphetamines Screen U Benzodiazepines Scrn U Oth Cocaine Metabols U Cannabinoids Screen Assessment & Plan - Assessment and Plan (Free Text) Assessment: Patient is a 36yo transgender female with PMHx significant for uncontrolled DM ( most recent A1c 11.1 in 2015), HIV (CD4 267 on 06/04/17), HIV, HTN, CKD, osteomyelitis, DVT who presented to the ED with complaint of fever/chills and non-healing left foot wounds. Our service has been consulted for assistance with the patient's ongoing nausea and vomiting. -Posttussive emesis -Nausea/vomiting -Early satiety -GERD -Uncontrolled DM -GAEL on CKD -HIV Plan: -Ongoing nausea/vomiting - noted at bedside with differential including diabetic gastroparesis, uremia, medication side effect (antibiotics), GERD -Recommend symptomatic treatment of cough - cough suppressants/lozenges as tolerated -Pantoprazole 40mg PO QAMAC -Strict glycemic control, check A1c -Appreciate nephrology consultation and ongoing treatment of GAEL with uremia and one possible underlying cause of nausea/vomiting -6 small meals, low fiber/fat diet -If symptoms do not improve, consider changing antibiotic coverage if possible -Given multitude of symptoms, would benefit from EGD once acute medical issues have improved/stabilized - Date & Time Date: 07/06/17 Time: 15:30 <Napoleon Hdez - Last Filed: 07/06/17 16:18> Meds - Medications Medications: Current Medications Amlodipine Besylate (Norvasc) 5 mg PO DAILY [facility] Last Admin: 07/06/17 10:19 Dose: 5 mg Home Med (Patient's Own Medication) 1 tab PO DAILY [facility] Last Admin: 07/06/17 13:35 Dose: 1 tab Sodium Chloride (Sodium Chloride 0.45%) 1,000 mls @ 100 mls/hr IV .Q10H [facility] Last Admin: 07/06/17 12:00 Dose: 100 mls/hr Cefepime HCl (Maxipime Iv 1 Gm Premix) 1 gm in 50 mls @ 100 mls/hr IVPB Q24H [facility] PRN Reason: Protocol Last Admin: 07/06/17 13:14 Dose: 100 mls/hr Insulin Aspart (Novolog) 16 unit SC BID [facility] Last Admin: 07/06/17 10:46 Dose: Not Given Insulin Glargine (Lantus) 16 unit SC HS [facility] Morphine Sulfate (Morphine) 4 mg IV Q6 PRN PRN Reason: Pain, severe (8-10) Last Admin: 07/06/17 10:19 Dose: 4 mg Sertraline HCl (Zoloft) 50 mg PO DAILY [facility] Last Admin: 07/06/17 10:19 Dose: 50 mg Results - Vital Signs Recent Vital Signs: Last Vital Signs Temp 98.2 F 07/06/17 07:00 Pulse 96 H 07/06/17 07:00 Resp 18 07/06/17 07:00 BP 132/82 07/06/17 07:00 Pulse Ox 96 07/06/17 07:00 - Labs Result Diagrams: 07/05/17 23:07 07/05/17 23:07 Labs: Laboratory Results - last 24 hr 07/05/17 07/05/17 07/05/17 23:07 23:07 23:07 WBC 14.7 H D RBC 2.82 L Hgb 8.1 L Hct 24.2 L MCV 85.8 MCH 28.7 MCHC 33.5 RDW 14.7 H Plt Count 423 H D MPV 6.9 L Neut % (Auto) 72.5 Lymph % (Auto) 14.7 L [place] % (Auto) 8.7 Eos % (Auto) 3.5 Baso % (Auto) 0.6 Neut # (Auto) 10.7 H Lymph # (Auto) 2.2 [place] # (Auto) 1.3 H Eos # (Auto) 0.5 Baso # (Auto) 0.1 PT 14.4 H INR 1.3 APTT 25 D-Dimer, Quantitative 2892 H Sodium 142 Potassium 4.7 Chloride 105 Carbon Dioxide 21 L Anion Gap 21 H BUN 33 H Creatinine 3.9 H Est GFR ( Amer) 16 Est GFR (Non-Af Amer) 13 POC Glucose (mg/dL) Random Glucose 111 H Calcium 8.7 Total Bilirubin 0.9 AST 27 ALT 11 Alkaline Phosphatase 103 Troponin I 0.0610 NT-Pro-B Natriuret Pep 1770 H Total Protein 9.1 H Albumin 3.1 L Globulin 6.0 H Albumin/Globulin Ratio 0.5 L Urine Color Urine Clarity Urine pH Ur Specific Lithia Urine Protein Urine Glucose (UA) Urine Ketones Urine Blood Urine Nitrate Urine Bilirubin Urine Urobilinogen Ur Leukocyte Esterase Urine WBC (Auto) Urine RBC (Auto) Ur Squamous Epith Cells Amorphous Sediment Urine Bacteria Urine Opiates Screen Urine Methadone Screen Ur Barbiturates Screen Ur Phencyclidine Scrn Ur Amphetamines Screen U Benzodiazepines Scrn U Oth Cocaine Metabols U Cannabinoids Screen 07/05/17 07/05/17 07/06/17 23:27 23:27 06:34 WBC RBC Hgb Hct MCV MCH MCHC RDW Plt Count MPV Neut % (Auto) Lymph % (Auto) [place] % (Auto) Eos % (Auto) Baso % (Auto) Neut # (Auto) Lymph # (Auto) [place] # (Auto) Eos # (Auto) Baso # (Auto) PT INR APTT D-Dimer, Quantitative Sodium Potassium Chloride Carbon Dioxide Anion Gap BUN Creatinine Est GFR ( Amer) Est GFR (Non-Af Amer) POC Glucose (mg/dL) 160 H Random Glucose Calcium Total Bilirubin AST ALT Alkaline Phosphatase Troponin I NT-Pro-B Natriuret Pep Total Protein Albumin Globulin Albumin/Globulin Ratio Urine Color Yellow Urine Clarity Hazy Urine pH 6.0 Ur Specific Lithia 1.017 Urine Protein 3+ H Urine Glucose (UA) 1+ Urine Ketones Negative Urine Blood 2+ H Urine Nitrate Negative Urine Bilirubin Negative Urine Urobilinogen Normal Ur Leukocyte Esterase Neg Urine WBC (Auto) 4 Urine RBC (Auto) 29 H Ur Squamous Epith Cells 1 Amorphous Sediment Rare H Urine Bacteria Rare Urine Opiates Screen Negative Urine Methadone Screen Negative Ur Barbiturates Screen Negative Ur Phencyclidine Scrn Negative Ur Amphetamines Screen Negative U Benzodiazepines Scrn Negative U Oth Cocaine Metabols Negative U Cannabinoids Screen Positive H 07/06/17 11:05 WBC RBC Hgb Hct MCV MCH MCHC RDW Plt Count MPV Neut % (Auto) Lymph % (Auto) [place] % (Auto) Eos % (Auto) Baso % (Auto) Neut # (Auto) Lymph # (Auto) [place] # (Auto) Eos # (Auto) Baso # (Auto) PT INR APTT D-Dimer, Quantitative Sodium Potassium Chloride Carbon Dioxide Anion Gap BUN Creatinine Est GFR ( Amer) Est GFR (Non-Af Amer) POC Glucose (mg/dL) 166 H Random Glucose Calcium Total Bilirubin AST ALT Alkaline Phosphatase Troponin I NT-Pro-B Natriuret Pep Total Protein Albumin Globulin Albumin/Globulin Ratio Urine Color Urine Clarity Urine pH Ur Specific Lithia Urine Protein Urine Glucose (UA) Urine Ketones Urine Blood Urine Nitrate Urine Bilirubin Urine Urobilinogen Ur Leukocyte Esterase Urine WBC (Auto) Urine RBC (Auto) Ur Squamous Epith Cells Amorphous Sediment Urine Bacteria Urine Opiates Screen Urine Methadone Screen Ur Barbiturates Screen Ur Phencyclidine Scrn Ur Amphetamines Screen U Benzodiazepines Scrn U Oth Cocaine Metabols U Cannabinoids Screen Attending/Attestation - Attestation I have personally seen and examined this patient.: Yes I have fully participated in the care of the patient.: Yes I have reviewed all pertinent clinical information: Yes Notes (Text): 07/06/17 16:09 I have seen and examined patient with GI fellow. Agree with above documentation with the following additions. In brief, this is a 36 year old transgender female with medical history of obesity (BMI 35), uncontrolled DM, CKD, PVD, HIV (last CD4 count 267 one month ago), polysubstance abuse, who presented to hospital with complaint of fever/chills, and non-healing lower extremity wound, currently undergoing treatment for osteomyelitis. GI called for evaluation of nausea and vomiting. She describes persistent symptoms over the past one month that began with cough which would eventually lead to vomiting. She also reports difficulty with digestion over the past one year along with intermittent heartburn symptoms. She reports a significant weight loss which has been intentional over the past one year but otherwise denies diarrhea, rectal bleeding, change in bowel habits. Uncontrolled DM HIV CKD PVD Osteomyelitis Nausea, vomiting - differential includes gastroparesis, uremia, peptic ulcer disease, medication related (antibiotics), etc. - Suggest small frequent meals throughout the course of the day - Optimize blood glucose control - Begin once daily PPI therapy - Anti-emetic therapy PRN - Would consider anti-tussive medication, continue with lozenges for time being - Continue with antibiotic therapy, consider adjusting medication if symptoms persist - Patient would likely benefit from EGD given long standing reflux symptoms in setting of HIV, though would defer procedure until patient medically optimized. Will continue to monitor patient clinical course
[2017-07-06 18:41] LABS: CREATININE, RANDOM URINE 92.1 mg/dL
--- NOTE | 2017-07-06 18:46 | HP ---
HISTORY OF PRESENT ILLNESS: This is a 36-year-old transgender female, who came to the emergency room with history of chronic left foot osteomyelitis. The patient claims she has a foul smell from the left foot ulcer. The patient has this chronic left foot diabetic ulcer for a while. The patient is being treated for osteomyelitis. The patient was admitted in June from 06/07/2017 to 06/12/2017 for the same and she refused to continue treatment with PICC line or at subacute rehab. The patient was discharged home on p.o. antibiotics. The patient does not remember her medications. The patient states that she is being seen by Dr. Coy every Wednesday. The patient has chronically swollen left leg and pain that she states is only relieved by morphine. Left lower leg with inferior vena cava filter and history of DVT. No history of fever. REVIEW OF SYSTEMS: CARDIOVASCULAR: Negative for chest pain. RESPIRATORY: Negative for shortness of breath. GI: Negative for nausea, vomiting, abdominal pain. TIRE TRUCKER: No focal neurological complaints offered. EXTREMITIES: The patient has left foot chronic ulcer with osteomyelitis of the big toe. FAMILY HISTORY: No known inherited disease. SOCIAL HISTORY: The patient denies smoking. No IVD abuse. ALLERGIES: THE PATIENT IS ALLERGIC TO TYLENOL, HYDROMORPHONE, ASPIRIN. PAST MEDICAL HISTORY: History of hypertension, chronic renal failure, deep vein thrombosis with inferior vena cava filter. HIV positive. Hypertension. Chronic pain. MEDICATIONS: Reviewed by me. PHYSICAL EXAMINATION: GENERAL/VITAL SIGNS: This is a 36-year-old female transgender with temperature 102 degrees Fahrenheit, pulse 91 per minute, respirations 20, and blood pressure 163/86 mmHg, pulse ox is 98% on room air. HEENT: Normal. JVP is flat. Carotids, no bruits. LUNGS: No rales, no wheezing. HEART: S1, S2 normal. No gallop, no murmur. ABDOMEN: Soft, nontender. No organomegaly seen. TIRE TRUCKER: No focal neurological deficit. EXTREMITIES: Left foot chronic ulcer with osteomyelitis. Cellulitis is present. LABORATORY DATA: On admission, white cell count is elevated at 14.7. BUN 33, creatinine 3.9, potassium is 4.7. Blood sugar 111. EKG: Sinus tachycardia. IMPRESSION: 1. Chronic left foot diabetic ulcer. 2. Osteomyelitis. 3. Chronic renal failure. 4. Hypertension. 5. Diabetes. 6. Human Immunodeficiency Virus positive. PLAN: The patient will be admitted to the floor. We will get consult with Dr. Coy and Dr. Del Valle. We will give IV antibiotics. Other workup as needed. Art Nathan MD
[2017-07-06] MEDS: (Lantus) Insulin Glargine, Recombinant SC SCH (22:42)
[2017-07-07] MEDS: Morphine 4 MG/ML VIAL IV PRN ×5 (06:16→23:24)
[2017-07-07] MEDS: Sodium Chloride 0.45% 1,000 ML IV SCH ×4 (08:15→22:11)
--- NOTE | 2017-07-07 08:54 | CON ---
DATE: 07/06/2017 RENAL CONSULTATION LOCATION: The patient is located in room 568, bed B. REASON FOR CONSULTATION AND FOLLOWUP: Acute renal failure, chronic kidney disease, diabetic nephropathy, fever, osteomyelitis of the left foot, and Charcot's foot. HISTORY OF PRESENT ILLNESS: Mrs. Johnson is a 36-year-old, but transgender female with a past medical history significant for longstanding diabetes, hypertension, DVT, depression, HIV positive, Charcot's left foot, and chronic osteomyelitis of the foot, status post debridement a few weeks ago, left toe amputation, who was admitted with chief complaints of chronic left foot pain and swelling and drainage, who was recently admitted on 06/07/2017 and discharged on 06/12/2017, left AMA, refusing PICC line and chronic antibiotics and subacute rehab. Now, the patient was admitted with fever of 102, and also associated with nausea and vomiting for the last 3 weeks, unable to hold any food. Denies any dysphagia or odynophagia. Renal consult was requested for increase in BUN and creatinine. Her baseline creatinine is about 2.2, 2.5. The patient is not in acute distress, sometimes very irritable. PAST MEDICAL HISTORY: Significant for depression, diabetes, DVT, hypertension, HIV positive, osteomyelitis of the leg, and also Charcot's left foot and amputation of the toes. Amputation of the left first toe on 02/12/2016 and third toe amputation on 03/20/2015, and fourth toe amputation on 03/20/2015, partial third ray amputation on 10/23/2015 and partial fourth toe amputation fourth ray on 10/23/2015. ALLERGIES: The patient is allergic to aspirin, acetaminophen, hydromorphone, ketorolac, oxycodone, peas, Darvocet, and aspirin. SOCIAL HISTORY: Denies smoking. Occasional alcohol use and drug abuse occasional. FAMILY HISTORY: Not significant. PERSONAL HISTORY: A transgender female. CURRENT MEDICATIONS: Include as follows: Lantus 16 units subcu at bedtime, cefepime 1 gm every 24 hours, and morphine 4 mg IV every 6 hours p.r.n., amlodipine 5 mg p.o. daily, NovoLog 16 units subcu b.i.d., IV fluids, half-normal saline at 100 mL/hour, Zoloft 50 mg p.o. daily, Odefsey 200 mg/25 mg/25 mg one tablet p.o. daily. REVIEW OF SYSTEMS: Significant for fever, pain and swelling of the left foot, and drainage, and also fever, nausea, vomiting for 3 weeks. All other review of systems reviewed and are negative except as mentioned. PHYSICAL EXAMINATION: VITAL SIGNS: As follows: Blood pressure this morning 132/82, pulse 96, respirations 18, temperature 98.2, and T-max is 102.6. Height is 6 feet 3 inches, and weight is 280 pounds. GENERAL: Mrs. Johnson is a 36-year-old young obese transgender female. HEENT: Pupils normal and reactive to light and accommodation. Conjunctivae pink. Sclerae anicteric. Tongue is moist and trachea is midline. LUNGS: Symmetric on both sides. Bilateral breath sounds present. Clear to auscultation. CVS: [place] at the fifth intercostal space, midclavicular line. S1, S2 audible. No murmur or gallop. ABDOMEN: Normal in appearance. Soft, tympanic. No guarding. No rigidity. No hepatosplenomegaly. PASSENGER BRAKEMAN: The patient is alert, awake, and oriented x3. NEUROLOGIC: Nonfocal neuro examination. Cranial nerves II through XII grossly intact. Sensory and motor system is within normal limits. EXTREMITIES: No cyanosis, no clubbing, no edema on the right leg. The patient has swelling of the left leg up to the knee joint and also left foot is also swollen and foul-smelling drainage. LABORATORY DATA: Include as follows: As of 07/05/2017, WBC 14.7, hemoglobin 8.1, hematocrit is 24.2, platelets of 423. PT 14.4, INR 1.3, PTT 25, and D-dimer 2896. Sodium 142, potassium 4.7, chloride 105, CO2 21, BUN 33, creatinine 3.9, glucose is 111, calcium is 8.7. Total bili 0.9, AST 27, ALT 11, alkaline phosphatase 103. Troponin 0.061. ProBNP was 1770. Total protein 9.1, albumin is 3.1, globulin 6.0. Urinalysis: Yellow, hazy, pH 6, and specific gravity 1.017, protein 3+, glucose 1+, ketones negative, blood 2+, nitrites negative, bilirubin negative, urobilinogen normal, leukocyte esterase negative, wbc's 4, rbc's 29, bacteria is rare. Urine toxic screen positive for cannabinoids and urine osmolality 360. Urine sodium is 67, and urine creatinine is 92.1. Other laboratory data as of 07/05/2017: Chest x-ray: No active disease. No acute significant interval change. X-ray of the foot as of 07/05/2017, extensive postsurgical changes along the second, third, fourth, and fifth metatarsophalangeal joints re-noted. IMPRESSION: Interval changes in this patient with prior extensive postsurgical changes and clinical suspicion of chronic osteomyelitis, status noted. The interval changes are accentuated around the fifth metatarsal proximal base as detailed and clinical correlation is essential, particularly regarding any interval surgical interventions since 06/03/2017 study. If no such interval surgical interventions have occurred, an interval progressive osteomyelitis particularly affecting this fifth metatarsal base needs to be considered with extensive overlying soft tissue changes consistent with a concomitant cellulitis. Review of the labs from the last admission: HIV RNA, quantitative, PCR 4.19 and MIKIE was negative as of 06/05/2017, C3 104 and C4 is 16. CD-4 count was 267 and CD4/CD8 ratio was 0.24. As of 06/04/2017, creatinine clearance was 36 mL. As of 05/13/2017, serum creatinine 2.7. As of 06/05/2017, 2.9. As of 06/10/2017, serum creatinine was 3.5. As of 06/11/2017, serum creatinine 3.6. As of 07/05/2017, serum creatinine 3.9. RPR was nonreactive as of 08/29/2014 and hepatitis C antibody IgM is negative as of 10/30/2016, hepatitis B surface antigen was negative, hepatitis B core antibody was negative. Hepatitis C antibody was negative as of 10/31/2016. As of 11/03/2016, 24-hour urine volume was 4675 and 24-hour urine protein was 14.63 gm. In summary, Mrs. Johnson is a 36-year-old young transgender female with longstanding diabetes, hypertension, Human Immunodeficiency Virus positive, drug abuse, ethanol abuse, chronic osteomyelitis of the left foot, multiple surgeries and amputation of the toes, was admitted with fever and also nausea, vomiting, unable to hold food for the last 2 to 3 weeks since discharge from the hospital and also fever and foul-smelling drainage from the left foot and swelling of the left foot. 1. Acute renal failure on chronic kidney disease stage IIIB. 2. Nephrotic range proteinuria, rule out diabetic nephropathy, rule out chronic glomerulonephritis, such as focal segmental glomerulosclerosis or Human Immunodeficiency Virus associated nephropathy. 3. Hypertension. 4. Anemia, most likely secondary to chronic kidney disease. 5. Uncontrolled diabetes. 5. Osteomyelitis of the left foot. PLAN: Continue IV fluids and half-normal saline at 100 mL/hour and continue antibiotics as per ID recommendations, Dr. Del Valle. Follow up with GI consult to rule out gastroparesis, rule out gastritis, rule out H. pylori. Check hemoglobin A1c and follow BMP. Follow up with Psych. Continue Zoloft. Overall prognosis is guarded. We will follow with you. Check hemoglobin A1c and lipid profile also. Case discussed with Dr. Del Valle in rounds. Thank you for allowing me to participate in your patient's care. Weston Brambila MD
[2017-07-07] MEDS: ODEFSEY PO SCH (09:43)
[2017-07-07] MEDS: Pantoprazole 40 mg EC Tab PO SCH (09:44)
[2017-07-07] MEDS: (Novolog) Insulin Aspart, Recombinant 100 u/ml 10 ml vial SC SCH ×2 (09:47→18:47)
--- NOTE | 2017-07-07 11:08 | CP.PCM.PN ---
Subjective - Date & Time of Evaluation Date of Evaluation: 07/07/17 Time of Evaluation: 10:00 - Subjective Subjective: Podiatry progress note- Dr. Coy 36 yo transgender patient seen at bedside today regarding diabetic infection of the left foot. Pt denies any pain or discomfort to the leg or foot today. Pt says she feels a little better today, however does admit to a fever overnight and vomitting. Pt refuses dressing change this morning as it was already done earlier today. She denies c/sob/cp/weakness or dizziness at this time. Objective - Vital Signs/Intake and Output Vital Signs (last 24 hours): Temp Pulse Resp BP Pulse Ox 97.8 F 105 H 18 151/94 H 96 07/07/17 07:00 07/07/17 07:00 07/07/17 07:00 07/07/17 07:00 07/07/17 07:00 Intake and Output: 07/07/17 07/07/17 06:59 18:59 Intake Total 900 800 Output Total 800 Balance 100 800 - Medications Medications: Current Medications Amlodipine Besylate (Norvasc) 5 mg PO DAILY [facility] [place] Last Admin: 07/07/17 09:44 Dose: 5 mg Home Med (Patient's Own Medication) 1 tab PO DAILY [facility] [place] Last Admin: 07/07/17 09:43 Dose: 1 tab Sodium Chloride (Sodium Chloride 0.45%) 1,000 mls @ 100 mls/hr IV .Q10H [facility] Last Admin: 07/07/17 09:49 Dose: 100 mls/hr Cefepime HCl (Maxipime Iv 1 Gm Premix) 1 gm in 50 mls @ 100 mls/hr IVPB Q24H [facility] PRN Reason: Protocol Last Admin: 07/06/17 13:14 Dose: 100 mls/hr Insulin Aspart (Novolog) 16 unit SC BID [facility] [place] Last Admin: 07/07/17 09:47 Dose: 16 unit Insulin Glargine (Lantus) 16 unit SC HS [facility] [place] Last Admin: 07/06/17 22:42 Dose: Not Given Morphine Sulfate (Morphine) 4 mg IV Q4 PRN PRN Reason: Pain, severe (8-10) Last Admin: 07/07/17 11:05 Dose: 4 mg Ondansetron HCl (Zofran Tab) 4 mg PO Q6H PRN PRN Reason: Nausea/Vomiting Last Admin: 07/07/17 06:17 Dose: 4 mg Pantoprazole Sodium (Protonix Ec Tab) 40 mg PO DAILY [facility] [place] Last Admin: 07/07/17 09:44 Dose: 40 mg Sertraline HCl (Zoloft) 50 mg PO DAILY [facility] [place] Last Admin: 07/07/17 09:44 Dose: 50 mg - Labs Labs: 07/05/17 23:07 07/05/17 23:07 PT 14.4 SECONDS (9.7-12.2) H 07/05/17 23:07 INR 1.3 07/05/17 23:07 APTT 25 SECONDS (21-34) 07/05/17 23:07 - Constitutional Appears: Non-toxic, No Acute Distress - Neurological Exam Neurological Exam: Alert, Awake, Oriented x3 - Psychiatric Exam Psychiatric exam: Normal Affect, Normal Mood Assessment and Plan - Assessment and Plan (Free Text) Assessment: 36 yo female patient with chronic left foot OM 2/2 uncontrolled diabetic neuropathy Plan: Pt S&E at bedside Plan discussed with attending Dr. Coy chart, labs and vitals reviewed: tmax overnight 101.4 (Afebrile now) LLE MRI taken: Findings suggestive of extensive OM affecting the tarsal bones diffusely an the proximal to mid 2nd and 3rd metatarsals w/o definite fracture apparent. Extensive tenosynovitis affects the 2nd extensor digitorum tendon complex and mild to mildly affects the 3rd and 4th extensor digitorum tendons. Possible sympathetic plantar fasciitis. Dorsal greater than plantar cellulitis without definitive abscess. MRI or CT with contrast is more sensitive for abscess than unenhanced MRI. Podiatry recommends TMA, however patient continues to refuse this and refuses ALBERT IV abx as per ID Podiatry will follow
--- NOTE | 2017-07-07 11:30 | CP.PCM.PN ---
<William Yeboah - Last Filed: 07/07/17 13:45> Subjective - Date & Time of Evaluation Date of Evaluation: 07/07/17 Time of Evaluation: 06:45 - Subjective Subjective: PGY5 GI Fellow Progress Note Patient seen and examined bedside this morning. The patient states that she is feeling somewhat better today and has had no episodes of vomiting since our last visit. Denies any issues overnight. 12 system ROS performed and negative except where stated. Objective - Vital Signs/Intake and Output Vital Signs (last 24 hours): Temp Pulse Resp BP Pulse Ox 97.8 F 105 H 18 151/94 H 96 07/07/17 07:00 07/07/17 07:00 07/07/17 07:00 07/07/17 07:00 07/07/17 07:00 Intake and Output: 07/07/17 07/07/17 06:59 18:59 Intake Total 900 800 Output Total 800 Balance 100 800 - Medications Medications: Current Medications Amlodipine Besylate (Norvasc) 5 mg PO DAILY [facility] Last Admin: 07/07/17 09:44 Dose: 5 mg Home Med (Patient's Own Medication) 1 tab PO DAILY [facility] Last Admin: 07/07/17 09:43 Dose: 1 tab Sodium Chloride (Sodium Chloride 0.45%) 1,000 mls @ 100 mls/hr IV .Q10H [facility] Last Admin: 07/07/17 09:49 Dose: 100 mls/hr Cefepime HCl (Maxipime Iv 1 Gm Premix) 1 gm in 50 mls @ 100 mls/hr IVPB Q24H [facility] PRN Reason: Protocol Last Admin: 07/06/17 13:14 Dose: 100 mls/hr Insulin Aspart (Novolog) 16 unit SC BID [facility] Last Admin: 07/07/17 09:47 Dose: 16 unit Insulin Glargine (Lantus) 16 unit SC HS [facility] Last Admin: 07/06/17 22:42 Dose: Not Given Morphine Sulfate (Morphine) 4 mg IV Q4 PRN PRN Reason: Pain, severe (8-10) Last Admin: 07/07/17 11:05 Dose: 4 mg Ondansetron HCl (Zofran Tab) 4 mg PO Q6H PRN PRN Reason: Nausea/Vomiting Last Admin: 07/07/17 06:17 Dose: 4 mg Pantoprazole Sodium (Protonix Ec Tab) 40 mg PO DAILY [facility] Last Admin: 07/07/17 09:44 Dose: 40 mg Sertraline HCl (Zoloft) 50 mg PO DAILY [facility] Last Admin: 07/07/17 09:44 Dose: 50 mg - Labs Labs: 07/05/17 23:07 07/05/17 23:07 PT 14.4 SECONDS (9.7-12.2) H 07/05/17 23:07 INR 1.3 07/05/17 23:07 APTT 25 SECONDS (21-34) 07/05/17 23:07 - Constitutional Appears: Non-toxic, No Acute Distress - Eye Exam Eye Exam: EOMI, PERRL - ENT Exam ENT Exam: Mucous Membranes Moist - Respiratory Exam Respiratory Exam: Rales. absent: Clear to Ausculation Bilateral, Rhonchi, Wheezes - Cardiovascular Exam Cardiovascular Exam: RRR, +S1, +S2 - GI/Abdominal Exam GI & Abdominal Exam: Soft, Normal Bowel Sounds. absent: Distended, Firm, Guarding, Rigid, Tenderness, Organomegaly - Extremities Exam Additional comments: left LE edema noted, left LE digits 3-5 amputated - Neurological Exam Neurological Exam: Alert, Awake, Oriented x3 - Psychiatric Exam Psychiatric exam: Normal Affect, Normal Mood - Skin Skin Exam: Dry, Warm Assessment and Plan - Assessment and Plan (Free Text) Assessment: Patient is a 36yo transgender female with PMHx significant for uncontrolled DM ( most recent A1c 11.1 in 2015), HIV (CD4 267 on 06/04/17), HIV, HTN, CKD, osteomyelitis, DVT who presented to the ED with complaint of fever/chills and non-healing left foot wounds. Our service has been consulted for assistance with the patient's ongoing nausea and vomiting. -Posttussive emesis -Nausea/vomiting -Early satiety -GERD -Uncontrolled DM -GAEL on CKD -HIV Plan: -Symptoms improved with symptomatic treatment thusfar -Continue conservative therapy with antiemetics as tolerated by patient -Pantoprazole 40mg PO QAMAC -A1c noted to be 8.8, significantly improved from prior -6 small meals, low fat/fiber -Strict glycemic control, check A1c -Consider cough suppressant if needed -Nephrology consult for ongoing GAEL/CKD -May benefit from outpatient endoscopic evaluation <Napoleon Hdez - Last Filed: 07/07/17 16:05> Objective - Vital Signs/Intake and Output Vital Signs (last 24 hours): Temp Pulse Resp BP Pulse Ox 97.8 F 105 H 18 151/94 H 96 07/07/17 07:00 07/07/17 07:00 07/07/17 07:00 07/07/17 07:00 07/07/17 07:00 Intake and Output: 07/07/17 07/07/17 06:59 18:59 Intake Total 900 1100 Output Total 800 400 Balance 100 700 - Medications Medications: Current Medications Amlodipine Besylate (Norvasc) 5 mg PO DAILY [facility] Last Admin: 07/07/17 09:44 Dose: 5 mg Home Med (Patient's Own Medication) 1 tab PO DAILY [facility] Last Admin: 07/07/17 09:43 Dose: 1 tab Sodium Chloride (Sodium Chloride 0.45%) 1,000 mls @ 100 mls/hr IV .Q10H [facility] Last Admin: 07/07/17 09:49 Dose: 100 mls/hr Cefepime HCl (Maxipime Iv 1 Gm Premix) 1 gm in 50 mls @ 100 mls/hr IVPB Q24H [facility] PRN Reason: Protocol Last Admin: 07/07/17 12:03 Dose: 100 mls/hr Insulin Aspart (Novolog) 16 unit SC BID [facility] Last Admin: 07/07/17 09:47 Dose: 16 unit Insulin Glargine (Lantus) 16 unit SC HS [facility] Last Admin: 07/06/17 22:42 Dose: Not Given Morphine Sulfate (Morphine) 4 mg IV Q4 PRN PRN Reason: Pain, severe (8-10) Last Admin: 07/07/17 15:08 Dose: 4 mg Ondansetron HCl (Zofran Tab) 4 mg PO Q6H PRN PRN Reason: Nausea/Vomiting Last Admin: 07/07/17 15:07 Dose: 4 mg Pantoprazole Sodium (Protonix Ec Tab) 40 mg PO DAILY [facility] Last Admin: 07/07/17 09:44 Dose: 40 mg Sertraline HCl (Zoloft) 50 mg PO DAILY [facility] Last Admin: 07/07/17 09:44 Dose: 50 mg - Labs Labs: 07/05/17 23:07 04/02/18 23:07 PT 14.4 SECONDS (9.7-12.2) H 07/05/17 23:07 INR 1.3 07/05/17 23:07 APTT 25 SECONDS (21-34) 07/05/17 23:07 Attending/Attestation - Attestation I have personally seen and examined this patient.: Yes I have fully participated in the care of the patient.: Yes I have reviewed all pertinent clinical information, including history, physical exam and plan: Yes Notes (Text): 07/07/17 16:01 I have seen and examined patient with GI fellow. No acute events overnight, she is seen resting in bed comfortably. Her abdominal pain has subsided and she has not had any recurrent vomiting over the past 24 hours. She denies nausea, fever/chills. Tolerating PO diet without difficulty. Review of vitals from today shows tachycardia and elevated BP. HIV DM Obesity CKD DVT Osteomyelitis Nausea, vomiting - resolved - Continue with small frequent meals throughout the day - Anti-emetic therapy PRN - Continue with PPI therapy - Maintain strict glycemic control - Follow up nephrology recommendations regarding CKD - Discussed with patient regarding need to be seated upright during and following meal consumption as well as specific dietary modification. No further planned GI interventions, will sign off case. Suggest additional outpatient follow up, please reconsult as necessary, thank you.
[2017-07-07] MEDS: Cefepime IV 1 gm in Dextrose 1 GM/50 ML BAG IVPB SCH (12:03)
--- NOTE | 2017-07-07 13:06 | CP.PCM.PN ---
Subjective - Date & Time of Evaluation Date of Evaluation: 07/07/17 Time of Evaluation: 13:04 - Subjective Subjective: CONDITION REMAINS SAME. FOOT INF PRESENT. AFEBRILE. Objective - Vital Signs/Intake and Output Vital Signs (last 24 hours): Temp Pulse Resp BP Pulse Ox 97.8 F 105 H 18 151/94 H 96 07/07/17 07:00 07/07/17 07:00 07/07/17 07:00 07/07/17 07:00 07/07/17 07:00 Intake and Output: 07/07/17 07/07/17 06:59 18:59 Intake Total 900 800 Output Total 800 Balance 100 800 - Medications Medications: Current Medications Amlodipine Besylate (Norvasc) 5 mg PO DAILY [facility] Last Admin: 07/07/17 09:44 Dose: 5 mg Home Med (Patient's Own Medication) 1 tab PO DAILY [facility] Last Admin: 07/07/17 09:43 Dose: 1 tab Sodium Chloride (Sodium Chloride 0.45%) 1,000 mls @ 100 mls/hr IV .Q10H [facility] Last Admin: 07/07/17 09:49 Dose: 100 mls/hr Cefepime HCl (Maxipime Iv 1 Gm Premix) 1 gm in 50 mls @ 100 mls/hr IVPB Q24H [facility] PRN Reason: Protocol Last Admin: 07/07/17 12:03 Dose: 100 mls/hr Insulin Aspart (Novolog) 16 unit SC BID [facility] Last Admin: 07/07/17 09:47 Dose: 16 unit Insulin Glargine (Lantus) 16 unit SC HS [facility] Last Admin: 07/06/17 22:42 Dose: Not Given Morphine Sulfate (Morphine) 4 mg IV Q4 PRN PRN Reason: Pain, severe (8-10) Last Admin: 07/07/17 11:05 Dose: 4 mg Ondansetron HCl (Zofran Tab) 4 mg PO Q6H PRN PRN Reason: Nausea/Vomiting Last Admin: 07/07/17 06:17 Dose: 4 mg Pantoprazole Sodium (Protonix Ec Tab) 40 mg PO DAILY [facility] Last Admin: 07/07/17 09:44 Dose: 40 mg Sertraline HCl (Zoloft) 50 mg PO DAILY [facility] Last Admin: 07/07/17 09:44 Dose: 50 mg - Labs Labs: 07/05/17 23:07 07/05/17 23:07 PT 14.4 SECONDS (9.7-12.2) H 07/05/17 23:07 INR 1.3 07/05/17 23:07 APTT 25 SECONDS (21-34) 07/05/17 23:07 - Constitutional Appears: No Acute Distress, Chronically Ill - Eye Exam Eye Exam: EOMI, Normal appearance, PERRL Pupil Exam: NORMAL ACCOMODATION, PERRL - ENT Exam ENT Exam: Mucous Membranes Moist, Normal Exam - Neck Exam Neck Exam: Full ROM, Normal Inspection. absent: Lymphadenopathy - Respiratory Exam Respiratory Exam: Clear to Ausculation Bilateral, NORMAL BREATHING PATTERN - Cardiovascular Exam Cardiovascular Exam: REGULAR RHYTHM, +S1, +S2. absent: Murmur - GI/Abdominal Exam GI & Abdominal Exam: Soft, Normal Bowel Sounds. absent: Tenderness - Neurological Exam Neurological Exam: Alert, Awake, CN II-XII Intact, Normal Gait, Oriented x3 - Psychiatric Exam Psychiatric exam: Normal Affect, Normal Mood Assessment and Plan - Assessment and Plan (Free Text) Assessment: LT FOOT INF. O/M. CRF. HTN. Plan: MRI FOOT DONE REPORT AWAITING. FOR PAIN MANAGEMENT. IV ANTIBIOTICS.
--- NOTE | 2017-07-07 15:15 | MRI ---
PROCEDURE: MRI Left Foot HISTORY: Pain. COMPARISON: None available. TECHNIQUE: Multiecho multiplanar sequences were performed through the left foot without the use of intravenous contrast. FINDINGS: BONES: No fracture. Normal marrow signal. Markedly abnormal Marrow signal is identified suspicious for edema throughout all the tarsal bones with the navicular affected but less so than all the remaining tarsal bones. Further, edematous changes seen associated with the proximal 2nd and 3rd metatarsals extending to the mid diaphysis level. The pattern does not appear to affect the 1st metatarsal bone. Edematous changes within the Marrow are suggestive of likely osteomyelitis, especially given light of the extensive cellulitis pattern throughout the dorsal greater than plantar foot subcutaneous and deep soft tissues. Myositis is not excluded throughout the musculature of the plantar foot however. MUSCLES: As above. SOFT TISSUES: As above. LISFRANC LIGAMENT: No definitive disruption or appreciable. PLANTAR PLATE: Plantar plate is difficult to identify on this may be a function of edema related to local cellulitis, sympathetic plantar fasciitis potentially. EXTENSOR TENDONS: Prominent fluid has collected surrounding the 2nd, 3rd and 4th extensor digitorum tendons suggestive of tenosynovitis without definite tear. FLEXOR TENDONS: No definite flexor tendon tear appreciable. OTHER FINDINGS: None. CARTILAGE:: Relatively prominent chondromalacia is appreciate throughout the remaining midfoot joints diffusely. IMPRESSION: Findings suggestive of extensive osteomyelitis affecting the tarsal bones diffusely an the proximal to mid 2nd and 3rd metatarsals without definite fracture apparent. Extensive tenosynovitis affects the 2nd extensor digitorum tendon complex and mild to mildly affects the 3rd and 4th extensor digitorum tendons. Possible sympathetic plantar fasciitis. Dorsal greater than plantar cellulitis without definitive abscess. MRI or CT with contrast is more sensitive for abscess than unenhanced MRI. Great toe and 5th metatarsal prior amputations reiterated.
--- NOTE | 2017-07-07 18:06 | CP.PCM.PN ---
Subjective - Date & Time of Evaluation Date of Evaluation: 07/07/17 Time of Evaluation: 08:00 - Subjective Subjective: improving with zofran and treatment of necrotizing infection left foot would consider repeat imaging and OR debridement recc: endocrine eval Cont iv antibiotics consider eval for dedicated AIDS facility in [place] Objective - Vital Signs/Intake and Output Vital Signs (last 24 hours): Temp Pulse Resp BP Pulse Ox 99.0 F 111 H 21 168/92 H 95 07/07/17 15:00 07/07/17 15:00 07/07/17 15:00 07/07/17 15:00 07/07/17 15:00 Intake and Output: 07/07/17 07/07/17 06:59 18:59 Intake Total 900 1100 Output Total 800 400 Balance 100 700 - Medications Medications: Current Medications Amlodipine Besylate (Norvasc) 5 mg PO DAILY [facility] Last Admin: 07/07/17 09:44 Dose: 5 mg Home Med (Patient's Own Medication) 1 tab PO DAILY [facility] Last Admin: 07/07/17 09:43 Dose: 1 tab Sodium Chloride (Sodium Chloride 0.45%) 1,000 mls @ 100 mls/hr IV .Q10H [facility] Last Admin: 07/07/17 09:49 Dose: 100 mls/hr Cefepime HCl (Maxipime Iv 1 Gm Premix) 1 gm in 50 mls @ 100 mls/hr IVPB Q24H [facility] PRN Reason: Protocol Last Admin: 07/07/17 12:03 Dose: 100 mls/hr Insulin Aspart (Novolog) 16 unit SC BID [facility] Last Admin: 07/07/17 09:47 Dose: 16 unit Insulin Glargine (Lantus) 16 unit SC HS [facility] Last Admin: 07/06/17 22:42 Dose: Not Given Morphine Sulfate (Morphine) 4 mg IV Q4 PRN PRN Reason: Pain, severe (8-10) Last Admin: 07/07/17 15:08 Dose: 4 mg Ondansetron HCl (Zofran Tab) 4 mg PO Q6H PRN PRN Reason: Nausea/Vomiting Last Admin: 07/07/17 15:07 Dose: 4 mg Pantoprazole Sodium (Protonix Ec Tab) 40 mg PO DAILY [facility] Last Admin: 07/07/17 09:44 Dose: 40 mg Sertraline HCl (Zoloft) 50 mg PO DAILY [facility] Last Admin: 07/07/17 09:44 Dose: 50 mg - Labs Labs: 07/05/17 23:07 07/05/17 23:07 PT 14.4 SECONDS (9.7-12.2) H 07/05/17 23:07 INR 1.3 07/05/17 23:07 APTT 25 SECONDS (21-34) 07/05/17 23:07 - Constitutional Appears: Non-toxic, Chronically Ill - Head Exam Head Exam: NORMOCEPHALIC - Eye Exam Eye Exam: PERRL - ENT Exam ENT Exam: Mucous Membranes Dry - Neck Exam Neck Exam: absent: Lymphadenopathy - Respiratory Exam Respiratory Exam: Decreased Breath Sounds - Cardiovascular Exam Cardiovascular Exam: REGULAR RHYTHM - GI/Abdominal Exam GI & Abdominal Exam: Distended - Rectal Exam Rectal Exam: Deferred - Exam Exam: NORMAL INSPECTION - Extremities Exam Extremities Exam: Pedal Edema Additional comments: foul smelling wound left foot - Back Exam Back Exam: absent: CVA tenderness (L), CVA tenderness (R) Assessment and Plan (1) Gangrene associated with type 2 diabetes mellitus Status: Acute (2) Gangrene associated with type 2 diabetes mellitus Status: Acute (3) Diabetes mellitus type 1, uncontrolled, insulin dependent Status: Acute (4) Diabetic foot infection Status: Acute (5) Leg edema, left Status: Acute (6) HIV (human immunodeficiency virus infection) Status: Chronic (7) Obesities, morbid Status: Chronic (8) GAEL (acute kidney injury) Status: Acute (9) Abscess and cellulitis Status: Acute
--- NOTE | 2017-07-07 19:31 | CP.PCM.PN ---
Subjective - Date & Time of Evaluation Date of Evaluation: 07/07/17 Time of Evaluation: 19:30 - Subjective Subjective: pt is seen and examined, follow up consult is dictated #[id number] Objective - Vital Signs/Intake and Output Vital Signs (last 24 hours): Temp Pulse Resp BP Pulse Ox 99.0 F 111 H 21 168/92 H 95 07/07/17 15:00 07/07/17 15:00 07/07/17 15:00 07/07/17 15:00 07/07/17 15:00 Intake and Output: 07/07/17 07/08/17 18:59 06:59 Intake Total 1100 Output Total 400 Balance 700 - Medications Medications: Current Medications Amlodipine Besylate (Norvasc) 5 mg PO DAILY [facility] Last Admin: 07/07/17 09:44 Dose: 5 mg Home Med (Patient's Own Medication) 1 tab PO DAILY [facility] Last Admin: 07/07/17 09:43 Dose: 1 tab Sodium Chloride (Sodium Chloride 0.45%) 1,000 mls @ 100 mls/hr IV .Q10H [facility] Last Admin: 07/07/17 18:49 Dose: Not Given Cefepime HCl (Maxipime Iv 1 Gm Premix) 1 gm in 50 mls @ 100 mls/hr IVPB Q24H [facility] PRN Reason: Protocol Last Admin: 07/07/17 12:03 Dose: 100 mls/hr Insulin Aspart (Novolog) 16 unit SC BID [facility] Last Admin: 07/07/17 18:47 Dose: 16 unit Insulin Glargine (Lantus) 16 unit SC HS [facility] Last Admin: 07/06/17 22:42 Dose: Not Given Morphine Sulfate (Morphine) 4 mg IV Q4 PRN PRN Reason: Pain, severe (8-10) Last Admin: 07/07/17 19:10 Dose: 4 mg Ondansetron HCl (Zofran Tab) 4 mg PO Q6H PRN PRN Reason: Nausea/Vomiting Last Admin: 07/07/17 15:07 Dose: 4 mg Pantoprazole Sodium (Protonix Ec Tab) 40 mg PO DAILY [facility] Last Admin: 07/07/17 09:44 Dose: 40 mg Sertraline HCl (Zoloft) 50 mg PO DAILY [facility] Last Admin: 07/07/17 09:44 Dose: 50 mg - Labs Labs: 07/05/17 23:07 07/05/17 23:07 PT 14.4 SECONDS (9.7-12.2) H 07/05/17 23:07 INR 1.3 07/05/17 23:07 APTT 25 SECONDS (21-34) 07/05/17 23:07
[2017-07-07] MEDS: (Lantus) Insulin Glargine, Recombinant SC SCH (22:10)
[2017-07-08] MEDS: Morphine 4 MG/ML VIAL IV PRN ×5 (03:29→19:27)
[2017-07-08] MEDS: Sodium Chloride 0.45% 1,000 ML IV SCH ×4 (03:36→23:15)
--- NOTE | 2017-07-08 03:58 | PN ---
DATE: FOLLOWUP RENAL CONSULTATION LOCATION: The patient is located in room 568, bed B. REQUESTED BY: Art Nathan MD REASON FOR FOLLOWUP: Acute renal failure, chronic kidney disease, nephrotic range proteinuria. HISTORY OF PRESENT ILLNESS: Mrs. Johnson is a 36 years old young transgender female with a past medical history significant for longstanding hypertension, diabetes, Charcot's foot osteomyelitis of the left foot with multiple amputations who was admitted and discharged against AMA few weeks ago after treating osteomyelitis and refusing antibiotics and PICC line. Now, the patient was admitted with chief complaints of nausea and vomiting for 3 weeks and fever on and off and T-max 102.6 on admission, and also swelling of the leg and drainage. Initial renal consult requested for worsening renal function. The patient is not in distress. Complains of vomiting x1 this evening. Denies any chest pain or palpitation. Denies any headache, dizziness. Denies any dysuria or frequency. PHYSICAL EXAMINATION: VITAL SINGS: As follows, blood pressure 168/92, pulse 111, respirations 21, temperature 99, saturation 95%. Height 6 feet 3 inches and weight is 280 pounds. BMI 35. GENERAL: Mrs. Johnson is 36 years old young, transgender female, well built, well nourished, not in distress, masculine appearance. HEENT: Pupils normal and reactive to light and accommodation. Conjunctivae pink. Sclerae anicteric. Tongue is moist. Trachea is midline. LUNGS: Bilateral breath sounds present. Clear on auscultation. CVS: [place] at the fifth intercostal space, midclavicular line. S1, S2 audible. No murmur or gallop. ABDOMEN: Normal in appearance. Soft, tympanic. No guarding. No rigidity. No hepatosplenomegaly. LIVESTOCK RANCH HAND: The patient is alert, awake, and oriented x3. Nonfocal neuro examination. Cranial nerves II through XII grossly intact. Sensory and motor system is within normal limits. EXTREMITIES: No cyanosis, no clubbing, no edema of the right leg, and the patient has swelling of the left leg and also left foot. The patient has a dressing to the foot. CURRENT MEDICATIONS: Include as follows: Lantus 60 units subcutaneously at bedtime, cefepime 1 gm every 24 hours, morphine sulfate 4 mg IV every 4 hours p.r.n., Nephro-Rosario 1 tablet daily, amlodipine 5 mg p.o. daily, NovoLog 16 units subcu b.i.d., Procrit 10,000 units 3 times a week, Protonix 40 mg p.o. daily, and IV fluids half-normal saline at 100 mL/hour, Zofran 4 mg p.o. every 6 hours p.r.n., and Zoloft 50 mg p.o. daily, and also the patient is on Odefsey 1 tablet daily. LABORATORY DATA: Hemoglobin A1c 8.8. Accu-Cheks today, 220, 150, 79, 145, and 159. Blood culture x2 negative day one, and urine culture negative. MRI of the lower extremity as of 07/07/2017, impression, findings suggestive of extensive osteomyelitis affecting the tarsal bones diffusely and the proximal to mid second and third metatarsals without definite fracture. Apparent extensive tenosynovitis affects the second extensor digitorum tendon complex and mildly affects the third and fourth extensor digitorum tendons. Possible sympathetic plantar fascia, dorsal greater than plantar cellulitis without definitive abscess. MRI and CT with contrast is more sensitive for abscess than unenhanced MRI. Great toe and fifth metatarsal prior amputations reiterated. IMPRESSION: In summary, Mrs. Johnson is a 36 years old transgender female with longstanding hypertension, diabetes, and Charcot's foot with multiple surgeries and osteomyelitis who was recently admitted and signed out AMA, refusing IV antibiotics and PICC line placement, now admitted with fever and worsening left leg pain and swelling and increased BUN and creatinine, low H and H. 1. Acute renal failure, on chronic kidney disease stage III and nephrotic range proteinuria, most likely secondary to diabetic nephropathy, cannot rule out underlying chronic glomerulonephritis, human immunodeficiency virus associated nephropathy, or focal segmental glomerulosclerosis. 2. Hypertension. 3. Anemia most likely secondary to multifactorial, secondary to sepsis, and chronic kidney disease, cannot rule out iron-deficiency anemia. 4. Uncontrolled diabetes. 5. Osteomyelitis of the foot with Charcot's foot on the left side. Continue IV antibiotics as per Dr. Del Valle and follow with Podiatry for further management. We will start Procrit 10,000 units three times a week, Wednesday, , Wednesday, and Nephrocaps 1 tablet p.o. daily. We will check iron TIBC, ferritin level, PTH, and phosphorus level. CBC and BMP in a.m. We will follow with you. Thank you for allowing me to participate in your patient's care Weston Brambila MD
[2017-07-08 07:54] LABS: HEMOGLOBIN 7.5 g/dL (11.0-16.0); MEAN CELL VOLUME 86.2 fL (81.0-99.0); MEAN CORPUSCULAR HEMOGLOBIN 28.5 pg (27.0-31.0); RBC 2.63 Mil/uL (3.80-5.20); RED CELL DISTRIBUTION WIDTH 15.1 % (11.5-14.5); WHITE BLOOD COUNT 11.5 K/uL (4.8-10.8)
[2017-07-08] MEDS: Multivitamin Vitamin B Complex (Nephro-Vite) Tab PO SCH (08:04)
[2017-07-08 08:09] LABS: IRON 15 ug/dL (37-170)
[2017-07-08 08:18] LABS: ALB/GLOB RATIO 0.5 (1.0-2.1); ALBUMIN 2.7 g/dL (3.5-5.0); CALCIUM 8.5 mg/dl (8.6-10.4)
[2017-07-08 08:19] LABS: % IRON SATURATION 8 (20-55); TOTAL IRON BINDING CAPACITY 191 ug/dL (250-450)
[2017-07-08] MEDS: (Novolog) Insulin Aspart, Recombinant 100 u/ml 10 ml vial SC SCH ×2 (09:16→17:16)
[2017-07-08] MEDS: Pantoprazole 40 mg EC Tab PO SCH (09:16)
[2017-07-08] MEDS: ODEFSEY PO SCH (09:18)
[2017-07-08] MEDS: Epoetin Alfa 10,000 unit/ml Dialysis SC SCH (09:18)
--- NOTE | 2017-07-08 10:39 | CP.PCM.PN ---
Subjective - Date & Time of Evaluation Date of Evaluation: 07/08/17 Time of Evaluation: 12:00 - Subjective Subjective: Podiatry progress note- Dr. Coy 36 yo transgender patient seen at bedside today w/ Dr. Coy present for diabetic infection L foot. Pt reports some minimal clear drainage from the left leg. Says that she had a fever again last night (tmax 102.1), however feels better now. Denies any pain or discomfort to the left leg. Pt continues to adamantly refuse against any amputations of L foot, however she says she may "think about doing it in the future". Objective - Vital Signs/Intake and Output Vital Signs (last 24 hours): Temp Pulse Resp BP Pulse Ox 98.4 F 103 H 18 138/84 97 07/08/17 07:15 07/08/17 07:15 07/08/17 07:15 07/08/17 07:15 07/08/17 07:15 - Medications Medications: Current Medications Amlodipine Besylate (Norvasc) 5 mg PO DAILY [facility] Last Admin: 07/08/17 09:15 Dose: 5 mg Epoetin Anival (Procrit) 10,000 unit SC TTS [facility] Last Admin: 07/08/17 09:18 Dose: 10,000 unit Home Med (Patient's Own Medication) 1 tab PO DAILY [facility] Last Admin: 07/08/17 09:18 Dose: 1 tab Sodium Chloride (Sodium Chloride 0.45%) 1,000 mls @ 100 mls/hr IV .Q10H [facility] Last Admin: 07/08/17 03:36 Dose: Not Given Cefepime HCl (Maxipime Iv 1 Gm Premix) 1 gm in 50 mls @ 100 mls/hr IVPB Q24H [facility] PRN Reason: Protocol Last Admin: 07/07/17 12:03 Dose: 100 mls/hr Insulin Aspart (Novolog) 16 unit SC BID [facility] Last Admin: 07/08/17 09:16 Dose: 16 unit Insulin Glargine (Lantus) 16 unit SC HS [facility] Last Admin: 07/07/17 22:10 Dose: 16 unit Morphine Sulfate (Morphine) 4 mg IV Q4 PRN PRN Reason: Pain, severe (8-10) Last Admin: 07/08/17 07:33 Dose: 4 mg Ondansetron HCl (Zofran Tab) 4 mg PO Q6H PRN PRN Reason: Nausea/Vomiting Last Admin: 07/07/17 23:32 Dose: 4 mg Pantoprazole Sodium (Protonix Ec Tab) 40 mg PO DAILY [facility] Last Admin: 07/08/17 09:16 Dose: 40 mg Sertraline HCl (Zoloft) 50 mg PO DAILY [facility] Last Admin: 07/08/17 09:15 Dose: 50 mg Vitamin B Complex/Vit C/Folic Acid (Nephro-Rosario) 1 tab PO 0800 [facility] Last Admin: 07/08/17 08:04 Dose: 1 tab - Labs Labs: 07/08/17 07:48 07/08/17 07:48 PT 14.4 SECONDS (9.7-12.2) H 07/05/17 23:07 INR 1.3 07/05/17 23:07 APTT 25 SECONDS (21-34) 07/05/17 23:07 - Constitutional Appears: Non-toxic, No Acute Distress - Extremities Exam Extremities Exam: absent: Calf Tenderness Additional comments: LLE: dressing appears c/d/i VASC- DP pulse is palpable, PT pulses is non-palpable due to edema, cap refill < 3 sec to digits 1-4, 3+ pitting edema is noted to dorsum of foot and anterior leg NEURO- gross and protective pedal sensation are intact DERM- surgical site to plantar-lateral foot is coapted with sutures intact, there is slight serous drainage noted from surgical site, there is an ulceration noted to distal lateral leg meausres approx. 3.0x5.0x0.3cm with mixed fibrogranular base, neg PTB, + malodor, neg fluctuance MSK-slight tenderness to palp of leg and foot wounds - Neurological Exam Neurological Exam: Alert, Awake, Oriented x3 - Psychiatric Exam Psychiatric exam: Normal Affect, Normal Mood Assessment and Plan - Assessment and Plan (Free Text) Assessment: 36 yo female patient with chronic left foot OM 2/2 uncontrolled diabetic neuropathy Plan: Pt S&E at bedside with Dr. Coy present chart, labs and vitals reviewed: tmax overnight 102.1 (Afebrile now), wbc 11.5 LLE MRI: Findings suggestive of extensive OM affecting the tarsal bones diffusely an the proximal to mid 2nd and 3rd metatarsals w/o definite fracture apparent. Extensive tenosynovitis affects the 2nd extensor digitorum tendon complex and mild to mildly affects the 3rd and 4th extensor digitorum tendons. Possible sympathetic plantar fasciitis. Dorsal greater than plantar cellulitis without definitive abscess. MRI or CT with contrast is more sensitive for abscess than unenhanced MRI. Podiatry continues to recommend TMA L foot in light of MRI findings, however pt continues to refuse c/w IV abx, f/u ID recs, may need PICC line? No plans for surgical intervention at this time will follow
[2017-07-08] MEDS: Cefepime IV 1 gm in Dextrose 1 GM/50 ML BAG IVPB SCH (11:54)
--- NOTE | 2017-07-08 13:00 | CP.PCM.PN ---
Subjective - Date & Time of Evaluation Date of Evaluation: 07/08/17 Time of Evaluation: 12:57 - Subjective Subjective: DISCUSSED WITH ROLLER BEARING INSPECTOR, PATIENT FEBRILE. LT FOOT CELLULITIS+O/M. ANEMIA HB 7.5. DISCUSSED WITH DR. Nic LONDON AND DR. HERNANDEZ. Objective - Vital Signs/Intake and Output Vital Signs (last 24 hours): Temp Pulse Resp BP Pulse Ox 98.4 F 98 H 18 120/76 97 07/08/17 07:15 07/08/17 09:19 07/08/17 07:15 07/08/17 09:19 07/08/17 07:15 - Medications Medications: Current Medications Amlodipine Besylate (Norvasc) 5 mg PO DAILY [facility] Last Admin: 07/08/17 09:15 Dose: 5 mg Epoetin Anival (Procrit) 10,000 unit SC TTS [facility] Last Admin: 07/08/17 09:18 Dose: 10,000 unit Home Med (Patient's Own Medication) 1 tab PO DAILY [facility] Last Admin: 07/08/17 09:18 Dose: 1 tab Sodium Chloride (Sodium Chloride 0.45%) 1,000 mls @ 100 mls/hr IV .Q10H [facility] Last Admin: 07/08/17 03:36 Dose: Not Given Cefepime HCl (Maxipime Iv 1 Gm Premix) 1 gm in 50 mls @ 100 mls/hr IVPB Q24H [facility] PRN Reason: Protocol Last Admin: 07/08/17 11:54 Dose: 100 mls/hr Insulin Aspart (Novolog) 16 unit SC BID [facility] Last Admin: 07/08/17 09:16 Dose: 16 unit Insulin Glargine (Lantus) 16 unit SC HS [facility] Last Admin: 07/07/17 22:10 Dose: 16 unit Morphine Sulfate (Morphine) 4 mg IV Q4 PRN PRN Reason: Pain, severe (8-10) Last Admin: 07/08/17 11:26 Dose: 4 mg Ondansetron HCl (Zofran Tab) 4 mg PO Q6H PRN PRN Reason: Nausea/Vomiting Last Admin: 07/07/17 23:32 Dose: 4 mg Pantoprazole Sodium (Protonix Ec Tab) 40 mg PO DAILY [facility] Last Admin: 07/08/17 09:16 Dose: 40 mg Sertraline HCl (Zoloft) 50 mg PO DAILY [facility] Last Admin: 07/08/17 09:15 Dose: 50 mg Vitamin B Complex/Vit C/Folic Acid (Nephro-Roasrio) 1 tab PO 0800 [facility] Last Admin: 07/08/17 08:04 Dose: 1 tab - Labs Labs: 07/08/17 07:48 07/08/17 07:48 PT 14.4 SECONDS (9.7-12.2) H 07/05/17 23:07 INR 1.3 07/05/17 23:07 APTT 25 SECONDS (21-34) 07/05/17 23:07 - Constitutional Appears: No Acute Distress, Chronically Ill - Head Exam Head Exam: ATRAUMATIC, NORMAL INSPECTION, NORMOCEPHALIC - Eye Exam Eye Exam: EOMI, Normal appearance, PERRL Pupil Exam: NORMAL ACCOMODATION, PERRL - ENT Exam ENT Exam: Mucous Membranes Moist, Normal Exam - Neck Exam Neck Exam: Full ROM, Normal Inspection. absent: Lymphadenopathy - Respiratory Exam Respiratory Exam: Clear to Ausculation Bilateral, NORMAL BREATHING PATTERN - Cardiovascular Exam Cardiovascular Exam: REGULAR RHYTHM, +S1, +S2. absent: Murmur - GI/Abdominal Exam GI & Abdominal Exam: Soft, Normal Bowel Sounds. absent: Tenderness - Extremities Exam Additional comments: CELLULITIS AND ULCER LT FOOT. - Neurological Exam Neurological Exam: Alert, Awake, CN II-XII Intact, Normal Gait, Oriented x3 - Psychiatric Exam Psychiatric exam: Normal Affect, Normal Mood Assessment and Plan - Assessment and Plan (Free Text) Assessment: O/M LT FOOT. CRF. ANEMIA. Plan: CT PRESENT TREATMENT. MAY NEED BLOOD TRANSFUSION. CT OTHER TREATMENT.
--- NOTE | 2017-07-08 16:23 | CP.PCM.PN ---
Subjective - Date & Time of Evaluation Date of Evaluation: 07/08/17 Time of Evaluation: 16:23 - Subjective Subjective: pt is seen and examined, follow up consult is dictated #[id number] Objective - Vital Signs/Intake and Output Vital Signs (last 24 hours): Temp Pulse Resp BP Pulse Ox 105 F H 105 H 18 125/79 96 07/08/17 16:00 07/08/17 16:00 07/08/17 16:00 07/08/17 16:00 07/08/17 16:00 Intake and Output: 07/08/17 07/08/17 06:59 18:59 Intake Total 650 Output Total 350 Balance 300 - Medications Medications: Current Medications Amlodipine Besylate (Norvasc) 5 mg PO DAILY [facility] Last Admin: 07/08/17 09:15 Dose: 5 mg Epoetin Anival (Procrit) 10,000 unit SC TTS [facility] Last Admin: 07/08/17 09:18 Dose: 10,000 unit Home Med (Patient's Own Medication) 1 tab PO DAILY [facility] Last Admin: 07/08/17 09:18 Dose: 1 tab Sodium Chloride (Sodium Chloride 0.45%) 1,000 mls @ 100 mls/hr IV .Q10H [facility] Last Admin: 07/08/17 15:56 Dose: 100 mls/hr Cefepime HCl (Maxipime Iv 1 Gm Premix) 1 gm in 50 mls @ 100 mls/hr IVPB Q24H [facility] PRN Reason: Protocol Last Admin: 07/08/17 11:54 Dose: 100 mls/hr Ibuprofen (Motrin Tab) 400 mg PO Q6 PRN PRN Reason: Fever >100.4 F Insulin Aspart (Novolog) 16 unit SC BID [facility] Last Admin: 07/08/17 09:16 Dose: 16 unit Insulin Glargine (Lantus) 16 unit SC HS [facility] Last Admin: 07/07/17 22:10 Dose: 16 unit Morphine Sulfate (Morphine) 4 mg IV Q4 PRN PRN Reason: Pain, severe (8-10) Last Admin: 07/08/17 15:25 Dose: 4 mg Ondansetron HCl (Zofran Tab) 4 mg PO Q6H PRN PRN Reason: Nausea/Vomiting Last Admin: 07/07/17 23:32 Dose: 4 mg Pantoprazole Sodium (Protonix Ec Tab) 40 mg PO DAILY [facility] Last Admin: 07/08/17 09:16 Dose: 40 mg Sertraline HCl (Zoloft) 50 mg PO DAILY [facility] Last Admin: 07/08/17 09:15 Dose: 50 mg Vitamin B Complex/Vit C/Folic Acid (Nephro-Rosario) 1 tab PO 0800 [facility] Last Admin: 07/08/17 08:04 Dose: 1 tab - Labs Labs: 07/08/17 07:48 07/08/17 07:48 PT 14.4 SECONDS (9.7-12.2) H 07/05/17 23:07 INR 1.3 07/05/17 23:07 APTT 25 SECONDS (21-34) 07/05/17 23:07
[2017-07-08] MEDS: (Lantus) Insulin Glargine, Recombinant SC SCH (22:01)
[2017-07-09] MEDS: Morphine 4 MG/ML VIAL IV PRN ×6 (00:28→20:51)
--- NOTE | 2017-07-09 02:59 | PN ---
DATE: FOLLOWUP RENAL CONSULTATION LOCATION: The patient is located in room 568, bed B. REQUESTED BY: Art Nathan MD REASON FOR FOLLOWUP: Acute renal failure, chronic kidney disease, nephrotic range proteinuria, anemia, left foot infection. HISTORY OF PRESENT ILLNESS: Mrs. Johnson is a 36-year-old young transgender female with a past medical history significant for longstanding hypertension, diabetes, Charcot's foot on the left, and also osteomyelitis with multiple surgeries and amputation of the toes, who was admitted with fever and also nausea, vomiting, and swelling of the left foot. The patient refused previously IV antibiotics and PICC line placement prior to this admission. The patient is not in any acute distress. Denies any vomiting. Denies any nausea. Denies any chest pain or palpitation. Denies any shortness of breath. PHYSICAL EXAMINATION: VITAL SIGNS: Her vital signs include as follows, blood pressure 125/79, pulse 105, respirations 18, temperature 98.2, saturation 96%. Height of 6 feet 3 inches and weight is 280 pounds. GENERAL: Mrs. Johnson is a 36-year-old young transgender female, well built, well nourished, not in distress. HEENT: Pupils normal and reactive to light and accommodation. Conjunctivae pink. Sclerae anicteric. Tongue is moist. Trachea is midline. LUNGS: Symmetric on both sides. Bilateral breath sounds present. Clear on auscultation. CVS: [place] at the fifth intercostal space, midclavicular line. S1, S2 audible. No murmur or gallop. ABDOMEN: Normal in appearance, soft, tympanic. No guarding. No rigidity. No hepatosplenomegaly. INVESTIGATIONS CHIEF: The patient is alert, awake, oriented x3. Nonfocal neuro examination. Cranial nerves II through XII grossly intact. Sensory and motor system within normal limits. EXTREMITIES: No edema, no cyanosis on the right leg. The patient has swelling of the left leg and also the patient has a dressing to the left foot. Right leg is normal. MEDICATIONS: Her current medications include as follows: Lantus 16 units subcu at bedtime, cefepime 1 gm every 24 hours, morphine 4 mg IV every 4 hours p.r.n., ibuprofen 400 mg p.o. every 6 hours p.r.n., Nephro-Rosario 1 tablet daily, amlodipine 5 mg p.o. daily, Odefsey 1 tablet daily, Procrit 10,000 units subcu three times a week, Protonix 40 mg p.o. daily, IV fluids half-normal saline at 100 mL/hour, Zofran 4 mg p.o. every 6 hours p.r.n., Zoloft 50 mg p.o. daily. LABORATORY DATA: Other laboratory data as of 07/08/2017, WBC 11.5, hemoglobin 7.5, hematocrit is 22.7, platelets 450. Sodium 137, potassium 4.5, chloride 107, CO2 of 20, BUN 32, creatinine 3.8, glucose 168, calcium 8.5, phosphorus 4.1, iron is 15, TIBC is 195, saturation is 8%, ferritin 248. Total bili 0.4. AST 25, ALT 13, alkaline phos of 127, total protein 7.9, albumin is 2.7. Hemoglobin A1c as of 07/07/2017 is 8.8. IMPRESSION: In summary, Mrs. Johnson is a 36-year-old young transgender female with history of hypertension, diabetes, human immunodeficiency virus positive, proteinuria, massive anemia, Charcot's left foot, and osteomyelitis, multiple surgeries with fever, nausea, vomiting, and worsening renal function, and swelling of the left foot. 1. Acute renal failure on chronic kidney disease, most likely secondary to acute tubular necrosis versus progression of the chronic kidney disease. 2. Chronic kidney disease is most likely secondary to having nephropathy, cannot rule out human immunodeficiency virus associated nephropathy or focal segmental glomerulosclerosis. 3. Hypertension. 4. Anemia secondary to renal failure and also iron-deficiency anemia. 5. Osteomyelitis of the left foot. PLAN: Continue IV antibiotics as per ID recommendations and also we will continue Procrit three times a week and Nephro-Rosario and also we will start IV iron, Ferrlecit 125 mg IV piggyback daily, starting from tomorrow. We will follow with you. Thank you for allowing me to participate in your patient's care, and consider to transfuse as needed if H and H continued to drop. Case discussed with nurse practitioner in rounds also. Weston Brambila MD
[2017-07-09] MEDS: Sodium Chloride 0.45% 1,000 ML IV SCH ×3 (04:28→11:55)
[2017-07-09] MEDS: Pantoprazole 40 mg EC Tab PO SCH (09:21)
[2017-07-09] MEDS: Multivitamin Vitamin B Complex (Nephro-Vite) Tab PO SCH (09:22)
[2017-07-09] MEDS: (Novolog) Insulin Aspart, Recombinant 100 u/ml 10 ml vial SC SCH ×2 (09:22→17:10)
[2017-07-09] MEDS: ODEFSEY PO SCH ×2 (09:23→09:49)
--- NOTE | 2017-07-09 10:07 | CP.PCM.PN ---
Subjective - Date & Time of Evaluation Date of Evaluation: 07/09/17 Time of Evaluation: 10:06 - Subjective Subjective: pt is seen and examined, follow up consult is dictated #[id number] Objective - Vital Signs/Intake and Output Vital Signs (last 24 hours): Temp Pulse Resp BP Pulse Ox 99.6 F 113 H 18 120/73 96 07/09/17 07:05 07/09/17 07:05 07/09/17 07:05 07/09/17 07:05 07/09/17 07:05 Intake and Output: 07/09/17 07/09/17 06:59 18:59 Intake Total 1800 Output Total 800 Balance 1000 - Medications Medications: Current Medications Amlodipine Besylate (Norvasc) 5 mg PO DAILY [facility] Last Admin: 07/09/17 09:21 Dose: 5 mg Epoetin Anival (Procrit) 10,000 unit SC TTS [facility] Last Admin: 07/08/17 09:18 Dose: 10,000 unit Home Med (Patient's Own Medication) 1 tab PO DAILY [facility] Last Admin: 07/09/17 09:49 Dose: Not Given Sodium Chloride (Sodium Chloride 0.45%) 1,000 mls @ 100 mls/hr IV .Q10H [facility] Last Admin: 07/09/17 04:28 Dose: 100 mls/hr Cefepime HCl (Maxipime Iv 1 Gm Premix) 1 gm in 50 mls @ 100 mls/hr IVPB Q24H [facility] PRN Reason: Protocol Last Admin: 07/08/17 11:54 Dose: 100 mls/hr Ibuprofen (Motrin Tab) 400 mg PO Q6 PRN PRN Reason: Fever >100.4 F Insulin Aspart (Novolog) 16 unit SC BID [facility] Last Admin: 07/09/17 09:22 Dose: 16 unit Insulin Glargine (Lantus) 16 unit SC HS [facility] Last Admin: 07/08/17 22:01 Dose: Not Given Morphine Sulfate (Morphine) 4 mg IV Q4 PRN PRN Reason: Pain, severe (8-10) Last Admin: 07/09/17 04:23 Dose: 4 mg Ondansetron HCl (Zofran Tab) 4 mg PO Q6H PRN PRN Reason: Nausea/Vomiting Last Admin: 07/09/17 00:31 Dose: 4 mg Pantoprazole Sodium (Protonix Ec Tab) 40 mg PO DAILY [facility] Last Admin: 07/09/17 09:21 Dose: 40 mg Sertraline HCl (Zoloft) 50 mg PO DAILY [facility] Last Admin: 07/09/17 09:21 Dose: 50 mg Vitamin B Complex/Vit C/Folic Acid (Nephro-Rosario) 1 tab PO 0800 [facility] Last Admin: 07/09/17 09:22 Dose: 1 tab - Labs Labs: 07/08/17 07:48 07/08/17 07:48 PT 14.4 SECONDS (9.7-12.2) H 07/05/17 23:07 INR 1.3 07/05/17 23:07 APTT 25 SECONDS (21-34) 07/05/17 23:07
--- NOTE | 2017-07-09 11:49 | RAD ---
HISTORY: verify right PICC COMPARISON: No prior. FINDINGS: Interval placement right-sided PICC line the tip of which lies in the right subclavian vein subjacent to the proximal 1/3 of the right clavicle. LUNGS: The there appears to be mild bibasilar atelectasis right greater than left. PLEURA: No significant pleural effusion identified, no pneumothorax apparent. CARDIOVASCULAR: Marked cardiomegaly. OSSEOUS STRUCTURES: No significant abnormalities. VISUALIZED UPPER ABDOMEN: Normal. OTHER FINDINGS: None. IMPRESSION: Interval placement right-sided PICC line the tip of which lies in the right subclavian vein subjacent 2 the proximal 1/3 of the right clavicle. Marked cardiomegaly. Mild bibasilar atelectasis right greater than left.
[2017-07-09] MEDS: Cefepime IV 1 gm in Dextrose 1 GM/50 ML BAG IVPB SCH (11:54)
--- NOTE | 2017-07-09 12:19 | CP.PCM.PN ---
Subjective - Date & Time of Evaluation Date of Evaluation: 07/09/17 Time of Evaluation: 12:17 - Subjective Subjective: PT HAS PICC LINE DONE BUT NEEDS REPOSITIONING. FEBRILE. O/M LT FOOT. Objective - Vital Signs/Intake and Output Vital Signs (last 24 hours): Temp Pulse Resp BP Pulse Ox 99.6 F 113 H 18 120/73 96 07/09/17 07:05 07/09/17 07:05 07/09/17 07:05 07/09/17 07:05 07/09/17 07:05 Intake and Output: 07/09/17 07/09/17 06:59 18:59 Intake Total 1800 Output Total 800 Balance 1000 - Medications Medications: Current Medications Amlodipine Besylate (Norvasc) 5 mg PO DAILY [facility] Last Admin: 07/09/17 09:21 Dose: 5 mg Epoetin Anival (Procrit) 10,000 unit SC TTS [facility] Last Admin: 07/08/17 09:18 Dose: 10,000 unit Home Med (Patient's Own Medication) 1 tab PO DAILY [facility] Last Admin: 07/09/17 09:49 Dose: Not Given Cefepime HCl (Maxipime Iv 1 Gm Premix) 1 gm in 50 mls @ 100 mls/hr IVPB Q24H [facility] PRN Reason: Protocol Last Admin: 07/09/17 11:54 Dose: 100 mls/hr Ibuprofen (Motrin Tab) 400 mg PO Q6 PRN PRN Reason: Fever >100.4 F Insulin Aspart (Novolog) 16 unit SC BID [facility] Last Admin: 07/09/17 09:22 Dose: 16 unit Insulin Glargine (Lantus) 16 unit SC HS [facility] Last Admin: 07/08/17 22:01 Dose: Not Given Morphine Sulfate (Morphine) 4 mg IV Q4 PRN PRN Reason: Pain, severe (8-10) Last Admin: 07/09/17 11:48 Dose: 4 mg Ondansetron HCl (Zofran Tab) 4 mg PO Q6H PRN PRN Reason: Nausea/Vomiting Last Admin: 07/09/17 00:31 Dose: 4 mg Pantoprazole Sodium (Protonix Ec Tab) 40 mg PO DAILY [facility] Last Admin: 07/09/17 09:21 Dose: 40 mg Sertraline HCl (Zoloft) 50 mg PO DAILY [facility] Last Admin: 07/09/17 09:21 Dose: 50 mg Vitamin B Complex/Vit C/Folic Acid (Nephro-Rosario) 1 tab PO 0800 [facility] Last Admin: 07/09/17 09:22 Dose: 1 tab - Labs Labs: 07/08/17 07:48 07/08/17 07:48 PT 14.4 SECONDS (9.7-12.2) H 07/05/17 23:07 INR 1.3 07/05/17 23:07 APTT 25 SECONDS (21-34) 07/05/17 23:07 - Constitutional Appears: No Acute Distress, Chronically Ill - Eye Exam Eye Exam: PERRL - ENT Exam ENT Exam: Mucous Membranes Moist, Normal Exam - Respiratory Exam Respiratory Exam: Clear to Ausculation Bilateral, NORMAL BREATHING PATTERN - Cardiovascular Exam Cardiovascular Exam: REGULAR RHYTHM, +S1, +S2. absent: Murmur - GI/Abdominal Exam GI & Abdominal Exam: Soft, Normal Bowel Sounds. absent: Tenderness - Extremities Exam Additional comments: SAME. - Back Exam Back Exam: NORMAL INSPECTION - Neurological Exam Neurological Exam: Alert, Awake, CN II-XII Intact, Normal Gait, Oriented x3 Assessment and Plan - Assessment and Plan (Free Text) Assessment: O/M LT FOOT. ANEMIA. Plan: CT PRESENT TREATMENT.
[2017-07-09 12:37] LABS: BASO % 0.3 % (0.0-2.0); EOS # 0.6 K/uL (0.0-0.7); EOS % 4.1 % (0.0-4.0); HEMOGLOBIN 7.7 g/dL (11.0-16.0); LYMPH # 2.4 K/uL (1.0-4.3); MEAN CELL VOLUME 86.4 fL (81.0-99.0); MEAN CORPUSCULAR HEMOGLOBIN 28.4 pg (27.0-31.0); MEAN CORPUSCULAR HGB CONC 32.9 g/dL (33.0-37.0); MEAN PLATELET VOLUME 6.7 fL (7.2-11.7); MONO # 1.4 K/uL (0.0-0.8); MONO % 9.9 % (0.0-10.0); NEUT # 9.8 K/uL (1.8-7.0); NEUT % 68.7 % (50.0-75.0); NRBC % 0.1 % (0.0-2.0); RBC 2.71 Mil/uL (3.80-5.20); RED CELL DISTRIBUTION WIDTH 14.9 % (11.5-14.5); WHITE BLOOD COUNT 14.2 K/uL (4.8-10.8)
[2017-07-09 12:57] LABS: ALB/GLOB RATIO 0.5 (1.0-2.1)
--- NOTE | 2017-07-09 18:34 | CP.PCM.PN ---
Subjective - Date & Time of Evaluation Date of Evaluation: 07/09/17 Time of Evaluation: 07:00 - Subjective Subjective: c/o no food all day left foot swollen with foul smelling drainage / pus needs BKA but refuses has been off HAART rx for weaks due to vomiting but never called ON multiple occasions skipped infusions of antibiotics in past refuses [facility] Objective - Vital Signs/Intake and Output Vital Signs (last 24 hours): Temp Pulse Resp BP Pulse Ox 99.6 F 125 H 20 139/82 95 07/09/17 18:09 07/09/17 18:09 07/09/17 18:09 07/09/17 18:09 07/09/17 16:28 Intake and Output: 07/09/17 07/09/17 06:59 18:59 Intake Total 1800 Output Total 800 200 Balance 1000 -200 - Medications Medications: Current Medications Amlodipine Besylate (Norvasc) 5 mg PO DAILY [facility] BEDS [facility] Last Admin: 07/09/17 09:21 Dose: 5 mg Epoetin Anival (Procrit) 10,000 unit SC TTS [facility]S [facility] 234 BEDS AT [facility] Last Admin: 07/08/17 09:18 Dose: 10,000 unit Home Med (Patient's Own Medication) 1 tab PO DAILY [facility] 234 BEDS AT [facility] Last Admin: 07/09/17 09:49 Dose: Not Given Cefepime HCl (Maxipime Iv 1 Gm Premix) 1 gm in 50 mls @ 100 mls/hr IVPB Q24H [facility] PRN Reason: Protocol Last Admin: 07/09/17 11:54 Dose: 100 mls/hr Ibuprofen (Motrin Tab) 400 mg PO Q6 PRN PRN Reason: Fever >100.4 F Last Admin: 07/09/17 16:56 Dose: 400 mg Insulin Aspart (Novolog) 16 unit SC BID [facility] 234 BEDS AT [facility] Last Admin: 07/09/17 17:10 Dose: Not Given Insulin Glargine (Lantus) 16 unit SC HS COUNTS [facility]CLUDE 234 BEDS AT [facility] Last Admin: 07/08/17 22:01 Dose: Not Given Morphine Sulfate (Morphine) 4 mg IV Q4 PRN PRN Reason: Pain, severe (8-10) Last Admin: 07/09/17 16:50 Dose: 4 mg Ondansetron HCl (Zofran Tab) 4 mg PO Q6H PRN PRN Reason: Nausea/Vomiting Last Admin: 07/09/17 16:50 Dose: 4 mg Pantoprazole Sodium (Protonix Ec Tab) 40 mg PO DAILY [facility] 234 BEDS [facility] Last Admin: 07/09/17 09:21 Dose: 40 mg Sertraline HCl (Zoloft) 50 mg PO DAILY [facility] 234 BEDS [facility] Last Admin: 07/09/17 09:21 Dose: 50 mg Vitamin B Complex/Vit C/Folic Acid (Nephro-Rosario) 1 tab PO 0800 [facility] 234 BEDS [facility] Last Admin: 07/09/17 09:22 Dose: 1 tab - Labs Labs: 07/09/17 12:33 07/09/17 12:33 PT 14.4 SECONDS (9.7-12.2) H 07/05/17 23:07 INR 1.3 07/05/17 23:07 APTT 25 SECONDS (21-34) 07/05/17 23:07 - Constitutional Appears: Chronically Ill - Head Exam Head Exam: NORMOCEPHALIC - Eye Exam Eye Exam: absent: Scleral icterus - ENT Exam ENT Exam: Mucous Membranes Dry - Neck Exam Neck Exam: absent: Lymphadenopathy - Respiratory Exam Respiratory Exam: Decreased Breath Sounds, Rhonchi - Cardiovascular Exam Cardiovascular Exam: REGULAR RHYTHM, +S1, +S2 - GI/Abdominal Exam GI & Abdominal Exam: Distended, Soft. absent: Tenderness - Rectal Exam Rectal Exam: Deferred - Exam Exam: NORMAL INSPECTION - Extremities Exam Extremities Exam: Pedal Edema - Back Exam Back Exam: absent: CVA tenderness (L), CVA tenderness (R) - Neurological Exam Neurological Exam: Alert, Awake - Psychiatric Exam Psychiatric exam: Depressed Assessment and Plan (1) Gangrene associated with type 2 diabetes mellitus Status: Acute (2) Gangrene associated with type 2 diabetes mellitus Status: Acute (3) Diabetes mellitus type 1, uncontrolled, insulin dependent Status: Acute (4) Diabetic foot infection Status: Acute (5) Leg edema, left Status: Acute (6) HIV (human immunodeficiency virus infection) Status: Chronic (7) Obesities, morbid Status: Chronic (8) GAEL (acute kidney injury) Status: Acute (9) Abscess and cellulitis Status: Acute - Assessment and Plan (Free Text) Assessment: consider psych eval cont IV rx and wound care consider BKA
[2017-07-09] MEDS: (Lantus) Insulin Glargine, Recombinant SC SCH (21:43)
[2017-07-10] MEDS: Morphine 4 MG/ML VIAL IV PRN ×7 (00:49→20:15)
--- NOTE | 2017-07-10 02:46 | PN ---
DATE: 07/09/2017 FOLLOWUP RENAL CONSULTATION LOCATION: The patient is located in room 568, bed B. REQUESTED BY: Art Nathan MD REASON FOR FOLLOWUP: Acute renal failure, chronic kidney disease. HISTORY OF PRESENT ILLNESS: Mrs. Johnson is 36 years old young transgender female with a past medical history significant for HIV positive, hypertension, diabetes, nephrotic range proteinuria, chronic kidney disease, Charcot's foot and osteomyelitis of the left foot who was admitted with fever, nausea, vomiting. The patient is being treated for possible left foot infection and osteomyelitis. The patient is not feeling well and patient is upset this morning. Denies any chest pain or palpitation. Denies any fever or cough. No shortness of breath. PHYSICAL EXAMINATION: VITAL SIGNS: As follows, blood pressure this morning 120/73, pulse 113, respirations 18, temperature 99.6, saturation 96%. Height 6 feet 3 inches and weight is 280 pounds. BMI 35. GENERAL: Mrs. Johnson is 36 years old young transgender female, well-built, well-nourished, not in distress. Looks male in external appearance. HEENT: Pupils normal and reactive to light and accommodation. Conjunctivae pink. Sclerae anicteric. Tongue is moist. Trachea is midline. LUNGS: Symmetric on both sides. Bilateral breath sounds present. Clear on auscultation. CVS: Mongo at the fifth intercostal space, midclavicular line. S1, S2 audible. No murmur or gallop. ABDOMEN: Normal in appearance. Soft. Tympanic. No guarding. No rigidity. No hepatosplenomegaly. [employer]: The patient is alert, awake, and oriented x3. Nonfocal neuro examination. Cranial nerves II through XII grossly intact. Sensory and motor system within normal limits. EXTREMITIES: No cyanosis, no clubbing, no edema on the right leg. The patient has swelling of the left leg up to knee joint, and also has swelling of the left foot. Also the patient has a dressing to the left foot. CURRENT MEDICATIONS: Include as follows, Lantus 16 units subcu at bedtime, cefepime 1 gm every 24 hours, morphine sulfate 4 mg IV every 4 hours, ibuprofen 400 mg p.o. every 6 hours, Nephro-Rosario 1 tablet daily, amlodipine 5 mg daily, NovoLog for sliding scale, Odefsey 1 tablet daily, Procrit 10,000 units three times a week, Protonix 40 mg p.o. daily, Zofran 4 mg p.o. every 4 hours p.r.n., Zoloft 50 mg p.o. daily. LABORATORY DATA: Include as follows, as of 07/09/2017, WBC 14.2, hemoglobin 7.7, hematocrit is 23.4, platelets 478. Sodium 137, potassium 4.7, chloride 107, CO2 of 19, BUN 33, creatinine 3.9, glucose 99, calcium is 9, total bili 0.4, AST 27, ALT 7, alkaline phosphatase 159, total protein 8.7, albumin is 3, iron is 15, TIBC is 191, saturation is 8%, ferritin 248 and PTH intact level is 138. IMPRESSION: In summary, Mrs. Johnson is a 36 years old young transgender female with hypertension, diabetes, HIV positive, Charcot's foot, and osteomyelitis of the left foot who was admitted with fever, nausea, vomiting, and also history of depression. 1. Acute renal failure, on chronic kidney disease stage III, cannot rule out progression of the chronic kidney disease to stage IV, rule out diabetic nephropathy versus chronic glomerulonephritis such as focal segmental glomerulosclerosis versus human immunodeficiency virus associated nephropathy. 2. Hypertension. 3. Osteomyelitis of the left foot. 4. Anemia secondary to renal failure and iron deficiency. 5. Secondary hyperparathyroidism secondary to renal failure. PLAN: Continue Procrit three times a week. Continue Nephro-Rosario 1 tablet daily. We will add Ferrlecit 125 mg IV daily x8 doses. Consider transfusion of 1 unit packed RBC. The patient agrees. Continue IV antibiotics as per ID recommendations. We will follow with you. Thank you for allowing me to participate in your patient's care. We will also order calcitriol 0.25 mcg p.o. daily three times a week. Weston Brambila MD
[2017-07-10] MEDS: Multivitamin Vitamin B Complex (Nephro-Vite) Tab PO SCH (08:50)
[2017-07-10] MEDS: Pantoprazole 40 mg EC Tab PO SCH (09:10)
[2017-07-10] MEDS: (Novolog) Insulin Aspart, Recombinant 100 u/ml 10 ml vial SC SCH ×2 (09:10→17:34)
[2017-07-10] MEDS: Ferric Sodium Gluconat Complex 62.5 mg/5 ml Vial IVPB SCH (09:11)
[2017-07-10] MEDS: Epoetin Alfa 10,000 unit/ml Dialysis SC SCH (09:11)
[2017-07-10] MEDS: ODEFSEY PO SCH (09:12)
[2017-07-10] MEDS: Cefepime IV 1 gm in Dextrose 1 GM/50 ML BAG IVPB SCH (11:07)
--- NOTE | 2017-07-10 11:09 | CP.PCM.PN ---
Subjective - Date & Time of Evaluation Date of Evaluation: 07/10/17 Time of Evaluation: 11:07 - Subjective Subjective: CONDITION REMAINS SAME. DISCUSSED WITH PLAN OF TREATMENT. AGREES FOR OUT PT IV ABT THERAPY. PICC LINE FIXING IN PROGRESS. AFEBRILE. Objective - Vital Signs/Intake and Output Vital Signs (last 24 hours): Temp Pulse Resp BP Pulse Ox 98.7 F 106 H 18 157/98 H 95 07/10/17 07:25 07/10/17 07:25 07/10/17 07:25 07/10/17 07:25 07/10/17 07:25 Intake and Output: 07/10/17 07/10/17 06:59 18:59 Intake Total 600 Balance 600 - Medications Medications: Current Medications Amlodipine Besylate (Norvasc) 5 mg PO DAILY [facility] Last Admin: 07/10/17 09:10 Dose: 5 mg Calcitriol (Rocaltrol) 0.25 mcg PO TTS [facility] Last Admin: 07/10/17 09:10 Dose: 0.25 mcg Epoetin Anival (Procrit) 10,000 unit SC TTS [facility] Last Admin: 07/10/17 09:11 Dose: 10,000 unit Ferric Sodium Gluconate Complex (Ferrlecit) 125 mg IVPB DAILY [facility] Stop: 07/18/17 10:01 Last Admin: 07/10/17 09:11 Dose: 125 mg Home Med (Patient's Own Medication) 1 tab PO DAILY [facility] Last Admin: 07/10/17 09:12 Dose: 1 tab Cefepime HCl (Maxipime Iv 1 Gm Premix) 1 gm in 50 mls @ 100 mls/hr IVPB Q24H [facility] PRN Reason: Protocol Last Admin: 07/09/17 11:54 Dose: 100 mls/hr Ibuprofen (Motrin Tab) 400 mg PO Q6 PRN PRN Reason: Fever >100.4 F Last Admin: 07/09/17 16:56 Dose: 400 mg Insulin Aspart (Novolog) 16 unit SC BID [facility] Last Admin: 07/10/17 09:10 Dose: 16 unit Insulin Glargine (Lantus) 16 unit SC HS [facility] Last Admin: 07/09/17 21:43 Dose: 16 unit Morphine Sulfate (Morphine) 4 mg IV Q4 PRN PRN Reason: Pain, severe (8-10) Last Admin: 07/10/17 09:11 Dose: 4 mg Ondansetron HCl (Zofran Tab) 4 mg PO Q6H PRN PRN Reason: Nausea/Vomiting Last Admin: 07/09/17 16:50 Dose: 4 mg Pantoprazole Sodium (Protonix Ec Tab) 40 mg PO DAILY [facility] Last Admin: 07/10/17 09:10 Dose: 40 mg Sertraline HCl (Zoloft) 50 mg PO DAILY [facility] Last Admin: 07/10/17 09:10 Dose: 50 mg Vitamin B Complex/Vit C/Folic Acid (Nephro-Rosario) 1 tab PO 0800 [facility] Last Admin: 07/10/17 08:50 Dose: 1 tab - Labs Labs: 07/09/17 12:33 07/09/17 12:33 PT 14.4 SECONDS (9.7-12.2) H 07/05/17 23:07 INR 1.3 07/05/17 23:07 APTT 25 SECONDS (21-34) 07/05/17 23:07 - Constitutional Appears: No Acute Distress, Chronically Ill - Eye Exam Eye Exam: PERRL - ENT Exam ENT Exam: Mucous Membranes Moist, Normal Exam - Neck Exam Neck Exam: Full ROM, Normal Inspection. absent: Lymphadenopathy - Respiratory Exam Respiratory Exam: Clear to Ausculation Bilateral, NORMAL BREATHING PATTERN - Cardiovascular Exam Cardiovascular Exam: REGULAR RHYTHM, +S1, +S2. absent: Murmur - GI/Abdominal Exam GI & Abdominal Exam: Soft, Normal Bowel Sounds. absent: Tenderness - Extremities Exam Extremities Exam: Full ROM, Normal Capillary Refill, Normal Inspection. absent : Joint Swelling, Pedal Edema - Neurological Exam Neurological Exam: Alert, Awake, CN II-XII Intact, Normal Gait, Oriented x3 - Psychiatric Exam Psychiatric exam: Normal Affect, Normal Mood Assessment and Plan - Assessment and Plan (Free Text) Assessment: SAME O/M LT FOOT. CRF. HTN. Plan: FOR IV ABTS.
--- NOTE | 2017-07-10 12:01 | CP.PCM.PN ---
Subjective - Date & Time of Evaluation Date of Evaluation: 07/10/17 Time of Evaluation: 12:01 - Subjective Subjective: Podiatry progress note- Dr. Coy 36F seen and evaluated at bedside for left foot diabetic infection. Patient agitated, complaining of moderate pain to LLE today. Refusing dressing change to right great toe; when asked about R toe injury patient refusing to disclose HPI. Still refusing amputations to LLE. Objective - Vital Signs/Intake and Output Vital Signs (last 24 hours): Temp Pulse Resp BP Pulse Ox 98.7 F 106 H 18 157/98 H 95 07/10/17 07:25 07/10/17 07:25 07/10/17 07:25 07/10/17 07:25 07/10/17 07:25 Intake and Output: 07/10/17 07/10/17 06:59 18:59 Intake Total 600 Balance 600 - Medications Medications: Current Medications Amlodipine Besylate (Norvasc) 5 mg PO DAILY [facility] Last Admin: 07/10/17 09:10 Dose: 5 mg Calcitriol (Rocaltrol) 0.25 mcg PO TTS [facility] Last Admin: 07/10/17 09:10 Dose: 0.25 mcg Epoetin Anival (Procrit) 10,000 unit SC TTS [facility] Last Admin: 07/10/17 09:11 Dose: 10,000 unit Ferric Sodium Gluconate Complex (Ferrlecit) 125 mg IVPB DAILY [facility] Stop: 07/18/17 10:01 Last Admin: 07/10/17 09:11 Dose: 125 mg Home Med (Patient's Own Medication) 1 tab PO DAILY [facility] Last Admin: 07/10/17 09:12 Dose: 1 tab Cefepime HCl (Maxipime Iv 1 Gm Premix) 1 gm in 50 mls @ 100 mls/hr IVPB Q24H [facility] PRN Reason: Protocol Last Admin: 07/10/17 11:07 Dose: 100 mls/hr Ibuprofen (Motrin Tab) 400 mg PO Q6 PRN PRN Reason: Fever >100.4 F Last Admin: 07/09/17 16:56 Dose: 400 mg Insulin Aspart (Novolog) 16 unit SC BID [facility] Last Admin: 07/10/17 09:10 Dose: 16 unit Insulin Glargine (Lantus) 16 unit SC HS [facility] Last Admin: 07/09/17 21:43 Dose: 16 unit Morphine Sulfate (Morphine) 4 mg IV Q4 PRN PRN Reason: Pain, severe (8-10) Last Admin: 07/10/17 09:11 Dose: 4 mg Ondansetron HCl (Zofran Tab) 4 mg PO Q6H PRN PRN Reason: Nausea/Vomiting Last Admin: 07/09/17 16:50 Dose: 4 mg Pantoprazole Sodium (Protonix Ec Tab) 40 mg PO DAILY [facility] Last Admin: 07/10/17 09:10 Dose: 40 mg Sertraline HCl (Zoloft) 50 mg PO DAILY [facility] Last Admin: 07/10/17 09:10 Dose: 50 mg Vitamin B Complex/Vit C/Folic Acid (Nephro-Rosario) 1 tab PO 0800 [facility] Last Admin: 07/10/17 08:50 Dose: 1 tab - Labs Labs: 07/09/17 12:33 07/09/17 12:33 PT 14.4 SECONDS (9.7-12.2) H 07/05/17 23:07 INR 1.3 07/05/17 23:07 APTT 25 SECONDS (21-34) 07/05/17 23:07 - Constitutional Appears: Well, Non-toxic, No Acute Distress - Extremities Exam Additional comments: LLE: dressing appears c/d/i VASC- DP pulse is palpable, PT pulses is non-palpable due to edema, cap refill < 3 sec to digits 1-4, 3+ pitting edema is noted to dorsum of foot and anterior leg NEURO- gross and protective pedal sensation are intact DERM- surgical site to plantar-lateral foot is coapted with sutures intact with moderate amount of maceration periwound, there is slight serous drainage noted from surgical site with foul odor present. Ulceration noted to distal lateral leg meausres approx. 3.0x5.0x0.3cm with mixed fibrogranular base, neg PTB, + malodor, neg fluctuance MSK-PAin on palp of leg and foot wounds - Neurological Exam Neurological Exam: Alert, Awake, Oriented x3 - Psychiatric Exam Psychiatric exam: Agitated Assessment and Plan - Assessment and Plan (Free Text) Assessment: 36 yo female patient with chronic left foot OM 2/2 uncontrolled diabetic neuropathy Plan: Pt S&E at bedside with Dr. Coy present Afebrile, WBC trending upwards @ 14.5 LLE MRI: Findings suggestive of extensive OM affecting the tarsal bones diffusely an the proximal to mid 2nd and 3rd metatarsals w/o definite fracture apparent. Extensive tenosynovitis affects the 2nd extensor digitorum tendon complex and mild to mildly affects the 3rd and 4th extensor digitorum tendons. Possible sympathetic plantar fasciitis. Dorsal greater than plantar cellulitis without definitive abscess. MRI or CT with contrast is more sensitive for abscess than unenhanced MRI. Podiatry continues to recommend TMA L foot in light of MRI findings, however refusing despite education therefore no plans for surgical intervention at present C/w abx per ID - Cefepime 1g IV qd; patient has extensive history of skipping infusions of abx Podiatry will continue to follow
[2017-07-10 14:06] LABS: BASO # 0.1 K/uL (0.0-0.2); BASO % 0.8 % (0.0-2.0); EOS # 0.8 K/uL (0.0-0.7); EOS % 5.4 % (0.0-4.0); HEMOGLOBIN 8.6 g/dL (11.0-16.0); LYMPH # 2.8 K/uL (1.0-4.3); LYMPH % 19.6 % (20.0-40.0); MEAN CELL VOLUME 87.3 fL (81.0-99.0); MEAN CORPUSCULAR HEMOGLOBIN 28.1 pg (27.0-31.0); MEAN CORPUSCULAR HGB CONC 32.2 g/dL (33.0-37.0); MEAN PLATELET VOLUME 7.9 fL (7.2-11.7); MONO # 1.3 K/uL (0.0-0.8); MONO % 9.2 % (0.0-10.0); NEUT # 9.4 K/uL (1.8-7.0); NRBC % 0.3 % (0.0-2.0); RBC 3.08 Mil/uL (3.80-5.20); RED CELL DISTRIBUTION WIDTH 15.7 % (11.5-14.5); WHITE BLOOD COUNT 14.5 K/uL (4.8-10.8)
[2017-07-10 14:16] LABS: ALB/GLOB RATIO 0.5 (1.0-2.1); ALBUMIN 3.1 g/dL (3.5-5.0); CALCIUM 9.3 mg/dl (8.6-10.4)
--- NOTE | 2017-07-10 17:00 | CP.PCM.PN ---
Subjective - Date & Time of Evaluation Date of Evaluation: 07/10/17 Time of Evaluation: 16:59 - Subjective Subjective: pt is seen and examined, follow up consult is dictated #[id number] Objective - Vital Signs/Intake and Output Vital Signs (last 24 hours): Temp Pulse Resp BP Pulse Ox 98.7 F 106 H 18 157/98 H 95 07/10/17 07:25 07/10/17 07:25 07/10/17 07:25 07/10/17 07:25 07/10/17 07:25 Intake and Output: 07/10/17 07/10/17 06:59 18:59 Intake Total 600 550 Balance 600 550 - Medications Medications: Current Medications Amlodipine Besylate (Norvasc) 5 mg PO DAILY [facility] Last Admin: 07/10/17 09:10 Dose: 5 mg Calcitriol (Rocaltrol) 0.25 mcg PO TTS [facility] Last Admin: 07/10/17 09:10 Dose: 0.25 mcg Epoetin Anival (Procrit) 10,000 unit SC TTS [facility] Last Admin: 07/10/17 09:11 Dose: 10,000 unit Ferric Sodium Gluconate Complex (Ferrlecit) 125 mg IVPB DAILY [facility] Stop: 07/18/17 10:01 Last Admin: 07/10/17 09:11 Dose: 125 mg Home Med (Patient's Own Medication) 1 tab PO DAILY [facility] Last Admin: 07/10/17 09:12 Dose: 1 tab Cefepime HCl (Maxipime Iv 1 Gm Premix) 1 gm in 50 mls @ 100 mls/hr IVPB Q24H XIOMARA PRN Reason: Protocol Last Admin: 07/10/17 11:07 Dose: 100 mls/hr Ibuprofen (Motrin Tab) 400 mg PO Q6 PRN PRN Reason: Fever >100.4 F Last Admin: 07/10/17 16:51 Dose: 400 mg Insulin Aspart (Novolog) 16 unit SC BID [facility] Last Admin: 07/10/17 09:10 Dose: 16 unit Insulin Glargine (Lantus) 16 unit SC HS [facility] Last Admin: 07/09/17 21:43 Dose: 16 unit Morphine Sulfate (Morphine) 4 mg IV Q4 PRN PRN Reason: Pain, severe (8-10) Last Admin: 07/10/17 16:15 Dose: 4 mg Ondansetron HCl (Zofran Tab) 4 mg PO Q6H PRN PRN Reason: Nausea/Vomiting Last Admin: 07/10/17 16:15 Dose: 4 mg Pantoprazole Sodium (Protonix Ec Tab) 40 mg PO DAILY [facility] Last Admin: 07/10/17 09:10 Dose: 40 mg Sertraline HCl (Zoloft) 50 mg PO DAILY [facility] Last Admin: 07/10/17 09:10 Dose: 50 mg Vitamin B Complex/Vit C/Folic Acid (Nephro-Rosario) 1 tab PO 0800 [facility] Last Admin: 07/10/17 08:50 Dose: 1 tab - Labs Labs: 07/10/17 13:57 07/10/17 13:57 PT 14.4 SECONDS (9.7-12.2) H 07/05/17 23:07 INR 1.3 07/05/17 23:07 APTT 25 SECONDS (21-34) 07/05/17 23:07
[2017-07-10] MEDS: (Lantus) Insulin Glargine, Recombinant SC SCH (22:16)
[2017-07-11] MEDS: Morphine 4 MG/ML VIAL IV PRN ×6 (00:13→23:50)
--- NOTE | 2017-07-11 03:47 | PN ---
DATE: 07/10/2017 The patient is located in room 568, bed B. SUBJECTIVE: Mrs. Johnson is a 36-year-old young transgender female with a past medical history significant for HIV positive, hypertension, diabetes for more than 20 years with Charcot's foot, was noncompliant with medications, and depression, was admitted with fever, nausea, vomiting, worsening renal function, low H and H, and also left leg swelling and pain. The patient is being treated for possible left foot infection and osteomyelitis, on IV antibiotics. The patient is not in distress today. Denies any nausea or vomiting. Today, he able to tolerate p.o. intake. Denies any urinary symptoms. PHYSICAL EXAMINATION; VITAL SIGNS: As follows: Blood pressure 149/79, pulse 125, respiration 20, temperature 101.7, saturation 94%, height 6 feet 3 inches and weight is 280 pounds. GENERAL: Mrs. Johnson is a 36-year-old transgender female, well built, well nourished, not in distress. HEENT: Pupils normal and reactive to light and accommodation. Conjunctivae pink. Sclerae anicteric. Tongue is moist. Trachea is midline. LUNGS: Symmetric on both sides. Bilateral breath sounds present. Clear on auscultation. CVS: [place] at the fifth intercostal space, midclavicular line. S1 and S2 audible. No murmur or gallop. ABDOMEN: Normal in appearance, soft, tympanic. No guarding. No hepatosplenomegaly. ORTHODONTIST ASSISTANT: The patient is alert, awake, oriented x3. Nonfocal neuro examination. Cranial nerves II-XII grossly intact. Sensory and motor system is within normal limits. EXTREMITIES: No cyanosis, no clubbing, no edema on the right leg. The patient has swelling of the left leg up to the knee joint and also dressing to the left foot. CURRENT MEDICATIONS: Include as follows: Ferrlecit 125 mg IV piggyback daily, Lantus 16 units at bedtime, cefepime 1 gm daily, morphine sulfate 4 mg IV q.4 hours, ibuprofen 400 mg p.o. q.6 hours, Nephro-Rosario 1 tablet daily, Norvasc 5 mg p.o. daily, Odefsey 1 tablet p.o. daily, Procrit 10,000 units three times a week, Protonix 40 mg p.o. daily, Rocaltrol 0.25 mcg p.o. three times a week, Zofran 4 mg p.o. q.4 hours p.r.n., and Zoloft 50 mg p.o. daily. LABORATORY DATA: Include as follows: WBC 14, hemoglobin 8.6, hematocrit is 26.9, platelets 527. Sodium 140, potassium 4.9, chloride 107, CO2 is 17, BUN 35, creatinine 3.8, glucose 69, calcium 9.3. Total bili 0.4, AST 30, ALT 18, alkaline phos of 199, total protein 9.5, albumin is 3.1. In summary, Mrs. Johnson is a 36-year-old young transgender female with HIV positive, hypertension, diabetes, nephrotic range proteinuria, increased BUN and creatinine and low H and H and low bicarb, and left foot infection. 1. Acute renal failure on chronic kidney disease most likely secondary to diabetic nephropathy, cannot rule out underlying HIV associated nephropathy of FSGS. 2. Hypertension. 3. Anemia secondary to renal failure and iron deficiency. 4. Metabolic acidosis secondary to renal failure. 5. Left foot infection, rule out osteomyelitis. We will continue cefepime as per ID recommendation. Continue Epogen, Nephro-Rosario, and IV Ferrlecit. 6. Secondary hyperparathyroidism. We will continue calcitriol 0.25 mcg p.o. three times a week. Continue to monitor electrolytes and also H and H. We will add sodium bicarbonate 650 mg p.o. t.i.d. Thank you for allowing me to participate in your patient's care. Weston Brambila MD
[2017-07-11] MEDS: Multivitamin Vitamin B Complex (Nephro-Vite) Tab PO SCH (08:00)
[2017-07-11] MEDS ORDERED: Vancomycin 1 gm/NS 200 ml 1 GM/200 ML BAG IVPB STA (08:14)
[2017-07-11] MEDS ORDERED: Sulfamethoxazole/Trimethoprim 160 MG in Dextrose 5% In Water 250 ML IVPB SCH (08:30)
[2017-07-11 08:46] LABS: VENOUS BLOOD GAS BASE EXCESS -15.3 mmol/L (0.0-2.0); VENOUS BLOOD GAS PCO2 24 mmHg (40-60); VENOUS BLOOD GAS PO2 57 mm/Hg (30-55); VENOUS BLOOD PH 7.24 (7.32-7.43)
--- NOTE | 2017-07-11 08:56 | PCM.RRT ---
SECRETARY Nurses Assessment - Situation SECRETARY Location:: Med/Surg SECRETARY Reason for Call: Tachycardia, Hypertension SECRETARY Called By: RN - Respiratory SECRETARY Delivery Method: Face Mask @% - Diagnostic Test Ordered EKG: Yes Chest X-Ray: Yes - Stat Labs Ordered SECRETARY Stat Labs Ordered: LACTIC ACID, BLOOD C&S X2 - Sepsis Screen Part 1 Sepsis Screen Part 1: Temperature over 100.6F - Constitutional Appears: Non-toxic, Agitated, Chronically Ill - Head Head Exam: ATRAUMATIC, NORMOCEPHALIC - Eyes Eye Exam: EOMI - Cardiovascular Exam Cardiovascular Exam: Tachycardia - GI/Abdominal Exam GI & Abdominal Exam: Soft - Neurological Exam Neurological Exam: Alert, Awake - Extremities Exam Additional comments: left foot wrapped in gauze with betadyne Plan - Assessment of Findings&Treatment Plan SECRETARY called for HR 170s, temp 102.9, BP 141/86. Patient allergic to Tylenol and toradol. Patient confirms these allergies. Patient cooled with ice packs in b/ l axillae. Patient given fluid bolus, one dose vancomycin IVPB. Patient given bactrim IVPB for pneumocystis coverage due to history HIV and lapse in HAART therapy, for which patient follows with ID, Dr. Del Valle. Prior chest xray reviewed from 07/09/17, which was done to evaluate midline placement, sub-optimal study. Repeat chest xray ordered. Stat EKG performed, showing sinus tachycardia at 153bpm. Patient began vomiting and was given reglan 10mg IVP. Patient also given ativan 2mg IVP. Patient resting comfortably and hear rate decreased to 130s, 140s. VBG shock drawn, blood cultures drawn, urine culture ordered, as well as procalcitonin. VBG shock shows lactate 0.9, other labs pending. Call placed to primary attending, Dr. Art Nathan.
--- NOTE | 2017-07-11 09:27 | RAD ---
Chest x-ray single frontal view History: Sepsis. Comparison: 07/09/2017 Findings: Right midaxillary line extending into the right mid axillary vein. Clinical correlation as to positioning. Devices project over the left vivian thorax. Diffuse increased interstitial lung markings suggestive for edema and or infiltrate. More confluent consolidative changes seen within the right infrahilar region and left lung base. Cardiomegaly. Impression: Right midaxillary line extending into the right mid axillary vein. Clinical correlation as to positioning. Devices project over the left vivian thorax. Diffuse increased interstitial lung markings suggestive for edema and or infiltrate. More confluent consolidative changes seen within the right infrahilar region and left lung base. Cardiomegaly.
[2017-07-11] MEDS: (Novolog) Insulin Aspart, Recombinant 100 u/ml 10 ml vial SC SCH ×2 (10:59→17:19)
[2017-07-11] MEDS: Sulfamethoxazole/Trimethoprim 80 MG in Dextrose 5% In Water 100 ML IVPB SCH ×2 (11:00→21:25)
[2017-07-11] MEDS: Pantoprazole 40 mg EC Tab PO SCH (11:00)
[2017-07-11] MEDS: Saccharomyces Boulardi 250 mg Cap PO SCH ×2 (11:00→17:27)
[2017-07-11] MEDS: Ferric Sodium Gluconat Complex 62.5 mg/5 ml Vial IVPB SCH (11:00)
[2017-07-11] MEDS: ODEFSEY PO SCH (11:01)
[2017-07-11 12:02] LABS: ALB/GLOB RATIO 0.5 (1.0-2.1); ALBUMIN 2.7 g/dL (3.5-5.0); BASO % 0.4 % (0.0-2.0); CALCIUM 8.7 mg/dl (8.6-10.4); EOS # 0.5 K/uL (0.0-0.7); EOS % 3.7 % (0.0-4.0); HEMOGLOBIN 7.2 g/dL (11.0-16.0); LYMPH # 1.5 K/uL (1.0-4.3); LYMPH % 10.6 % (20.0-40.0); MEAN CORPUSCULAR HGB CONC 32.5 g/dL (33.0-37.0); MONO # 1.9 K/uL (0.0-0.8); MONO % 13.7 % (0.0-10.0); NEUT % 71.6 % (50.0-75.0); NRBC % 0.4 % (0.0-2.0); RBC 2.59 Mil/uL (3.80-5.20); RED CELL DISTRIBUTION WIDTH 15.4 % (11.5-14.5)
[2017-07-11] MEDS: Cefepime IV 1 gm in Dextrose 1 GM/50 ML BAG IVPB SCH (14:03)
--- NOTE | 2017-07-11 15:26 | CP.PCM.PN ---
Subjective - Date & Time of Evaluation Date of Evaluation: 07/11/17 Time of Evaluation: 15:25 - Subjective Subjective: pt is seen and examined, follow up consult is dictated #[id number] d/c ivf, ibuprofen add lasix 40 mg po qd check echo for lvef, r/o vegetations Objective - Vital Signs/Intake and Output Vital Signs (last 24 hours): Temp Pulse Resp BP Pulse Ox 99.4 F 105 H 18 141/86 91 L 07/11/17 10:10 07/11/17 10:10 07/11/17 10:10 07/11/17 07:15 07/11/17 07:15 Intake and Output: 07/11/17 07/11/17 06:59 18:59 Intake Total 800 650 Output Total 500 Balance 800 150 - Medications Medications: Current Medications Amlodipine Besylate (Norvasc) 5 mg PO DAILY [facility] Last Admin: 07/11/17 11:01 Dose: 5 mg Calcitriol (Rocaltrol) 0.25 mcg PO TTS [facility] Last Admin: 07/10/17 09:10 Dose: 0.25 mcg Epoetin Anival (Procrit) 10,000 unit SC TTS [facility] Last Admin: 07/10/17 09:11 Dose: 10,000 unit Ferric Sodium Gluconate Complex (Ferrlecit) 125 mg IVPB DAILY [facility] Stop: 07/18/17 10:01 Last Admin: 07/11/17 11:00 Dose: 125 mg Home Med (Patient's Own Medication) 1 tab PO DAILY [facility] Last Admin: 07/11/17 11:01 Dose: 1 tab Cefepime HCl (Maxipime Iv 1 Gm Premix) 1 gm in 50 mls @ 100 mls/hr IVPB Q24H XIOMARA PRN Reason: Protocol Last Admin: 07/11/17 14:03 Dose: 100 mls/hr Trimethoprim/Sulfamethoxazole (80 mg/ Dextrose) 100 mls @ 100 mls/hr IVPB Q12H XIOMARA PRN Reason: Protocol Last Admin: 07/11/17 11:00 Dose: 100 mls/hr Ibuprofen (Motrin Tab) 400 mg PO Q6 PRN PRN Reason: Fever >100.4 F Last Admin: 07/10/17 16:51 Dose: 400 mg Insulin Aspart (Novolog) 16 unit SC BID [facility] Last Admin: 07/11/17 10:59 Dose: 16 unit Insulin Glargine (Lantus) 16 unit SC HS [facility] Last Admin: 07/10/17 22:16 Dose: 16 unit Metoclopramide HCl (Reglan) 10 mg IVP ACHS PRN PRN Reason: Nausea/Vomiting Last Admin: 07/11/17 08:30 Dose: 10 mg Morphine Sulfate (Morphine) 4 mg IV Q4 PRN PRN Reason: Pain, severe (8-10) Last Admin: 07/11/17 14:49 Dose: 4 mg Ondansetron HCl (Zofran Tab) 4 mg PO Q6H PRN PRN Reason: Nausea/Vomiting Last Admin: 07/10/17 16:15 Dose: 4 mg Pantoprazole Sodium (Protonix Ec Tab) 40 mg PO DAILY [facility] Last Admin: 07/11/17 11:00 Dose: 40 mg Saccharomyces Boulardii (Florastor) 250 mg PO BID [facility] Last Admin: 07/11/17 11:00 Dose: 250 mg Sertraline HCl (Zoloft) 50 mg PO DAILY [facility] Last Admin: 07/11/17 11:00 Dose: 50 mg Vitamin B Complex/Vit C/Folic Acid (Nephro-Rosario) 1 tab PO 0800 [facility] Last Admin: 07/11/17 08:00 Dose: 1 tab - Labs Labs: 07/11/17 11:30 07/11/17 11:30 PT 14.4 SECONDS (9.7-12.2) H 07/05/17 23:07 INR 1.3 07/05/17 23:07 APTT 25 SECONDS (21-34) 07/05/17 23:07
--- NOTE | 2017-07-11 15:39 | CP.PCM.PN ---
Subjective - Date & Time of Evaluation Date of Evaluation: 07/11/17 Time of Evaluation: 08:00 - Subjective Subjective: S/P RAPID RESPONSE HAS PUS AND BLOOD DRAINING =FROM LEFT FOOT IV RX IN PROGRESS REFUSED AMPUTATION NEEDS I AND D POOR PROGNOSIS CARDIO ON BOARD Objective - Vital Signs/Intake and Output Vital Signs (last 24 hours): Temp Pulse Resp BP Pulse Ox 99.4 F 105 H 18 141/86 91 L 07/11/17 10:10 07/11/17 10:10 07/11/17 10:10 07/11/17 07:15 07/11/17 07:15 Intake and Output: 07/11/17 07/11/17 06:59 18:59 Intake Total 800 650 Output Total 500 Balance 800 150 - Medications Medications: Current Medications Amlodipine Besylate (Norvasc) 5 mg PO DAILY [facility] Last Admin: 07/11/17 11:01 Dose: 5 mg Calcitriol (Rocaltrol) 0.25 mcg PO TTS [facility] Last Admin: 07/10/17 09:10 Dose: 0.25 mcg Epoetin Anival (Procrit) 10,000 unit SC TTS [facility] Last Admin: 07/10/17 09:11 Dose: 10,000 unit Ferric Sodium Gluconate Complex (Ferrlecit) 125 mg IVPB DAILY [facility] Stop: 07/18/17 10:01 Last Admin: 07/11/17 11:00 Dose: 125 mg Home Med (Patient's Own Medication) 1 tab PO DAILY [facility] Last Admin: 07/11/17 11:01 Dose: 1 tab Cefepime HCl (Maxipime Iv 1 Gm Premix) 1 gm in 50 mls @ 100 mls/hr IVPB Q24H XIOMARA PRN Reason: Protocol Last Admin: 07/11/17 14:03 Dose: 100 mls/hr Trimethoprim/Sulfamethoxazole (80 mg/ Dextrose) 100 mls @ 100 mls/hr IVPB Q12H XIOMARA PRN Reason: Protocol Last Admin: 07/11/17 11:00 Dose: 100 mls/hr Ibuprofen (Motrin Tab) 400 mg PO Q6 PRN PRN Reason: Fever >100.4 F Last Admin: 07/10/17 16:51 Dose: 400 mg Insulin Aspart (Novolog) 16 unit SC BID [facility] Last Admin: 07/11/17 10:59 Dose: 16 unit Insulin Glargine (Lantus) 16 unit SC HS [facility] Last Admin: 07/10/17 22:16 Dose: 16 unit Metoclopramide HCl (Reglan) 10 mg IVP ACHS PRN PRN Reason: Nausea/Vomiting Last Admin: 07/11/17 08:30 Dose: 10 mg Morphine Sulfate (Morphine) 4 mg IV Q4 PRN PRN Reason: Pain, severe (8-10) Last Admin: 07/11/17 14:49 Dose: 4 mg Ondansetron HCl (Zofran Tab) 4 mg PO Q6H PRN PRN Reason: Nausea/Vomiting Last Admin: 07/10/17 16:15 Dose: 4 mg Pantoprazole Sodium (Protonix Ec Tab) 40 mg PO DAILY [facility] Last Admin: 07/11/17 11:00 Dose: 40 mg Saccharomyces Boulardii (Florastor) 250 mg PO BID [facility] Last Admin: 07/11/17 11:00 Dose: 250 mg Sertraline HCl (Zoloft) 50 mg PO DAILY [facility] Last Admin: 07/11/17 11:00 Dose: 50 mg Vitamin B Complex/Vit C/Folic Acid (Nephro-Rosario) 1 tab PO 0800 [facility] Last Admin: 07/11/17 08:00 Dose: 1 tab - Labs Labs: 07/11/17 11:30 07/11/17 11:30 PT 14.4 SECONDS (9.7-12.2) H 07/05/17 23:07 INR 1.3 07/05/17 23:07 APTT 25 SECONDS (21-34) 07/05/17 23:07 - Constitutional Appears: Toxic, No Acute Distress - Head Exam Head Exam: NORMOCEPHALIC - Eye Exam Eye Exam: PERRL. absent: Scleral icterus - ENT Exam ENT Exam: Mucous Membranes Dry, Normal External Ear Exam - Neck Exam Neck Exam: absent: Lymphadenopathy - Respiratory Exam Respiratory Exam: Decreased Breath Sounds - Cardiovascular Exam Cardiovascular Exam: REGULAR RHYTHM, +S1, +S2 - GI/Abdominal Exam GI & Abdominal Exam: Distended, Soft - Rectal Exam Rectal Exam: Deferred - Exam Exam: NORMAL INSPECTION - Extremities Exam Extremities Exam: Pedal Edema, Tenderness. absent: Calf Tenderness - Back Exam Back Exam: absent: CVA tenderness (L), CVA tenderness (R) - Neurological Exam Neurological Exam: Alert, Awake, CN II-XII Intact - Psychiatric Exam Psychiatric exam: Depressed - Skin Skin Exam: Dry Assessment and Plan (1) Gangrene associated with type 2 diabetes mellitus Status: Acute (2) Gangrene associated with type 2 diabetes mellitus Status: Acute (3) Diabetes mellitus type 1, uncontrolled, insulin dependent Status: Acute (4) Diabetic foot infection Status: Acute (5) Leg edema, left Status: Acute (6) HIV (human immunodeficiency virus infection) Status: Chronic (7) Obesities, morbid Status: Chronic (8) GAEL (acute kidney injury) Status: Acute (9) Abscess and cellulitis Status: Acute - Assessment and Plan (Free Text) Assessment: S/P RAPID RESPONSE HAS PUS AND BLOOD DRAINING =FROM LEFT FOOT IV RX IN PROGRESS REFUSED AMPUTATION NEEDS I AND D POOR PROGNOSIS CARDIO ON BOARD
--- NOTE | 2017-07-11 19:08 | CP.PCM.PN ---
Subjective - Date & Time of Evaluation Date of Evaluation: 07/11/17 Time of Evaluation: 19:08 - Subjective Subjective: Podiatry progress note- Dr. Figueroa/Anneliese 36F seen and evaluated at bedside for left foot diabetic infection. Pt had HSE MANAGER called this AM. Patient reports increased pain and drainage from left foot. Patient previously refusing amputations to LLE however since HSE MANAGER was called patient agreeable to I&D and TMA L foot. Offers no other complaints. Objective - Vital Signs/Intake and Output Vital Signs (last 24 hours): Temp Pulse Resp BP Pulse Ox 98.4 F 106 H 20 124/81 94 L 07/11/17 16:16 07/11/17 16:16 07/11/17 16:16 07/11/17 16:16 07/11/17 16:16 Intake and Output: 07/11/17 07/12/17 18:59 06:59 Intake Total 650 Output Total 500 Balance 150 - Medications Medications: Current Medications Amlodipine Besylate (Norvasc) 5 mg PO DAILY [facility] Last Admin: 07/11/17 11:01 Dose: 5 mg Calcitriol (Rocaltrol) 0.25 mcg PO TTS [facility] Last Admin: 07/10/17 09:10 Dose: 0.25 mcg Epoetin Anival (Procrit) 10,000 unit SC TTS [facility] Last Admin: 07/10/17 09:11 Dose: 10,000 unit Ferric Sodium Gluconate Complex (Ferrlecit) 125 mg IVPB DAILY [facility] Stop: 07/18/17 10:01 Last Admin: 07/11/17 11:00 Dose: 125 mg Home Med (Patient's Own Medication) 1 tab PO DAILY [facility] Last Admin: 07/11/17 11:01 Dose: 1 tab Cefepime HCl (Maxipime Iv 1 Gm Premix) 1 gm in 50 mls @ 100 mls/hr IVPB Q24H XIOMARA PRN Reason: Protocol Last Admin: 07/11/17 14:03 Dose: 100 mls/hr Trimethoprim/Sulfamethoxazole (80 mg/ Dextrose) 100 mls @ 100 mls/hr IVPB Q12H XIOMARA PRN Reason: Protocol Last Admin: 07/11/17 11:00 Dose: 100 mls/hr Ibuprofen (Motrin Tab) 400 mg PO Q6 PRN PRN Reason: Fever >100.4 F Last Admin: 07/10/17 16:51 Dose: 400 mg Insulin Aspart (Novolog) 16 unit SC BID [facility] Last Admin: 07/11/17 17:19 Dose: Not Given Insulin Glargine (Lantus) 16 unit SC HS [facility] Last Admin: 07/10/17 22:16 Dose: 16 unit Metoclopramide HCl (Reglan) 10 mg IVP ACHS PRN PRN Reason: Nausea/Vomiting Last Admin: 07/11/17 08:30 Dose: 10 mg Morphine Sulfate (Morphine) 4 mg IV Q4 PRN PRN Reason: Pain, severe (8-10) Last Admin: 07/11/17 14:49 Dose: 4 mg Ondansetron HCl (Zofran Tab) 4 mg PO Q6H PRN PRN Reason: Nausea/Vomiting Last Admin: 07/10/17 16:15 Dose: 4 mg Pantoprazole Sodium (Protonix Ec Tab) 40 mg PO DAILY [facility] Last Admin: 07/11/17 11:00 Dose: 40 mg Saccharomyces Boulardii (Florastor) 250 mg PO BID [facility] Last Admin: 07/11/17 17:27 Dose: 250 mg Sertraline HCl (Zoloft) 50 mg PO DAILY [facility] Last Admin: 07/11/17 11:00 Dose: 50 mg Vitamin B Complex/Vit C/Folic Acid (Nephro-Rosario) 1 tab PO 0800 [facility] Last Admin: 07/11/17 08:00 Dose: 1 tab - Labs Labs: 07/11/17 11:30 07/11/17 11:30 PT 14.4 SECONDS (9.7-12.2) H 07/05/17 23:07 INR 1.3 07/05/17 23:07 APTT 25 SECONDS (21-34) 07/05/17 23:07 - Constitutional Appears: Well, Non-toxic, No Acute Distress - Extremities Exam Additional comments: LLE: Dressing saturated with purulence in left foot VASC- DP pulse non-palpable secondary to edema, PT pulses is non-palpable due to edema, cap refill < 3 sec to digits 1-4, 3+ pitting edema is noted to dorsum of foot and anterior leg NEURO- gross and protective pedal sensation are intact DERM- Abscess noted dorsally at base of digits; when lanced approximately 5cc of purulence was able to be expressed. Surgical site to plantar-lateral foot is coapted with sutures intact with moderate amount of maceration periwound, there is moderate purulent drainage noted from surgical site with foul odor present. Ulceration noted dorsally over surgical incision extending down to bone, noted to have a 100% granular base and maceration periwound; malodor present; serosanguinous drainage able to be expressed. Ulceration noted to distal lateral leg meausres approx. 3.0x5.0x0.3cm with mixed fibrogranular base, neg PTB, + malodor, neg fluctuance. MSK- Pain on palpation leg ulcer, surgical incision, foot ulcer, and absces - Neurological Exam Neurological Exam: Alert, Awake, Oriented x3 - Psychiatric Exam Psychiatric exam: Normal Affect, Normal Mood Assessment and Plan - Assessment and Plan (Free Text) Assessment: 36 yo female patient with L foot abscess abscess and chronic OM 2/2 uncontrolled diabetic neuropathy Plan: Patient seen and evaluated at bedside Discussed with attending, Dr. Figueroa who is covering for Dr. Coy Febrile Tmax 102.9, leukocytosis 14.0 LLE MRI: Findings suggestive of extensive OM affecting the tarsal bones diffusely an the proximal to mid 2nd and 3rd metatarsals w/o definite fracture apparent. Extensive tenosynovitis affects the 2nd extensor digitorum tendon complex and mild to mildly affects the 3rd and 4th extensor digitorum tendons. Possible sympathetic plantar fasciitis. Dorsal greater than plantar cellulitis without definitive abscess. MRI or CT with contrast is more sensitive for abscess than unenhanced MRI. L foot and tib/fib XR (07/11/17) reveals ST emphysema along dorsum of foot, no emphysema noted proximally in leg Bedside I&D performed, approximately 5cc of purulence able to be expressed; WCx taken Patient agreeable to surgical intervention. Discussed with patient risks, benefits, alternatives, and complications to procedure and she wishes to proceed To OR tomorrow w/plan for 7:45 start L foot I&D with possible TMA -NPO @ [place] -Per Dr. Figueroa, due to severity of patient's condition, surgical intervention must proceed despite pre-operative workup; discussed with Dr. Nathan who agrees with plan Continue abx per ID - Cefepime 1g IV qd, Bactrim 80mg IV Prognosis poor Podiatry will continue to follow
[2017-07-11] MEDS: (Lantus) Insulin Glargine, Recombinant SC SCH (21:00)
--- NOTE | 2017-07-11 21:09 | CP.PCM.PN ---
Subjective - Date & Time of Evaluation Date of Evaluation: 07/11/17 Time of Evaluation: 11:20 - Subjective Subjective: FEBRILE. TACHYCARDIC. LEG PAIN. Objective - Vital Signs/Intake and Output Vital Signs (last 24 hours): Temp Pulse Resp BP Pulse Ox 98.4 F 106 H 20 124/81 94 L 07/11/17 16:16 07/11/17 16:16 07/11/17 16:16 07/11/17 16:16 07/11/17 16:16 Intake and Output: 07/11/17 07/12/17 18:59 06:59 Intake Total 650 Output Total 500 Balance 150 - Medications Medications: Current Medications Amlodipine Besylate (Norvasc) 5 mg PO DAILY [facility] Last Admin: 07/11/17 11:01 Dose: 5 mg Calcitriol (Rocaltrol) 0.25 mcg PO TTS [facility] Last Admin: 07/10/17 09:10 Dose: 0.25 mcg Epoetin Anival (Procrit) 10,000 unit SC TTS [facility] Last Admin: 07/10/17 09:11 Dose: 10,000 unit Ferric Sodium Gluconate Complex (Ferrlecit) 125 mg IVPB DAILY [facility] Stop: 07/18/17 10:01 Last Admin: 07/11/17 11:00 Dose: 125 mg Home Med (Patient's Own Medication) 1 tab PO DAILY [facility] Last Admin: 07/11/17 11:01 Dose: 1 tab Cefepime HCl (Maxipime Iv 1 Gm Premix) 1 gm in 50 mls @ 100 mls/hr IVPB Q24H [facility] PRN Reason: Protocol Last Admin: 07/11/17 14:03 Dose: 100 mls/hr Trimethoprim/Sulfamethoxazole (80 mg/ Dextrose) 100 mls @ 100 mls/hr IVPB Q12H [facility] PRN Reason: Protocol Last Admin: 07/11/17 11:00 Dose: 100 mls/hr Insulin Aspart (Novolog) 16 unit SC BID [facility] Last Admin: 07/11/17 17:19 Dose: Not Given Insulin Glargine (Lantus) 16 unit SC HS [facility] Last Admin: 07/11/17 21:00 Dose: Not Given Metoclopramide HCl (Reglan) 10 mg IVP ACHS PRN PRN Reason: Nausea/Vomiting Last Admin: 07/11/17 08:30 Dose: 10 mg Morphine Sulfate (Morphine) 4 mg IV Q4 PRN PRN Reason: Pain, severe (8-10) Last Admin: 07/11/17 19:51 Dose: 4 mg Ondansetron HCl (Zofran Tab) 4 mg PO Q6H PRN PRN Reason: Nausea/Vomiting Last Admin: 07/11/17 19:51 Dose: 4 mg Pantoprazole Sodium (Protonix Ec Tab) 40 mg PO DAILY [facility] Last Admin: 07/11/17 11:00 Dose: 40 mg Saccharomyces Boulardii (Florastor) 250 mg PO BID [facility] Last Admin: 07/11/17 17:27 Dose: 250 mg Sertraline HCl (Zoloft) 50 mg PO DAILY [facility] Last Admin: 07/11/17 11:00 Dose: 50 mg Vitamin B Complex/Vit C/Folic Acid (Nephro-Rosario) 1 tab PO 0800 [facility] Last Admin: 07/11/17 08:00 Dose: 1 tab - Labs Labs: 07/11/17 11:30 07/11/17 11:30 PT 14.4 SECONDS (9.7-12.2) H 07/05/17 23:07 INR 1.3 07/05/17 23:07 APTT 25 SECONDS (21-34) 07/05/17 23:07 - Constitutional Appears: No Acute Distress, Chronically Ill - Eye Exam Eye Exam: EOMI, Normal appearance, PERRL Pupil Exam: NORMAL ACCOMODATION, PERRL - ENT Exam ENT Exam: Mucous Membranes Moist, Normal Exam - Neck Exam Neck Exam: Full ROM, Normal Inspection. absent: Lymphadenopathy - Respiratory Exam Respiratory Exam: Clear to Ausculation Bilateral, NORMAL BREATHING PATTERN - Cardiovascular Exam Cardiovascular Exam: REGULAR RHYTHM, +S1, +S2. absent: Murmur - GI/Abdominal Exam GI & Abdominal Exam: Soft, Normal Bowel Sounds. absent: Tenderness - Back Exam Back Exam: NORMAL INSPECTION - Neurological Exam Neurological Exam: Alert, Awake, CN II-XII Intact, Normal Gait, Oriented x3 Assessment and Plan - Assessment and Plan (Free Text) Assessment: O/M LT FOOT. CRF. R/O SEPSIS. Plan: FOR OR TOMORROW. MEDICALLY CLEARED. IV ANTIBIOTICS.
--- NOTE | 2017-07-12 00:36 | PN ---
DATE: 07/11/2017 FOLLOWUP RENAL CONSULTATION LOCATION: The patient is located in room 568, bed B. REQUESTED BY: Art Nathan MD REASON FOR FOLLOWUP: Acute renal failure, chronic kidney disease. HISTORY OF PRESENT ILLNESS: Mrs. Johnson is a 36 years old young transgender female, with a past medical history significant for HIV positive, hypertension, diabetes, nephrotic range proteinuria, chronic kidney disease, Charcot's left foot with swelling and pain who was admitted with fever, nausea, vomiting, initially was started on IV antibiotics for possible osteomyelitis and infected left foot, so foot cultures are negative. 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 The patient is not in distress at this time. Denies resting comfortably. Denies any chest pain. Denies any abdominal pain. PHYSICAL EXAMINATION: VITAL SIGNS: This afternoon as follows, blood pressure 124/81, pulse 106, respirations 20, temperature 98.4, saturation 94%. Height 6 feet 3 inches and weight is 280 pounds. GENERAL: Mrs. Johnson is 36 years old young transgender female, well-built, well-nourished, not in distress. HEENT: Pupils normal and reactive to light and accommodation. Conjunctivae pink. Sclerae anicteric. Tongue is moist. Trachea is midline. LUNGS: Symmetric on both sides. Bilateral breath sounds present. Clear to auscultation. CVS: [place]illiard at the fifth intercostal space, midclavicular line. S1, S2 audible. No murmur or gallop. ABDOMEN: Normal in appearance, soft, tympanic. No guarding. No rigidity. No hepatosplenomegaly. 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 Nonfocal neuro examination. Cranial nerves II through XII grossly intact. Sensory and motor system is within normal limits. EXTREMITIES: No cyanosis, no clubbing, no edema on the right leg, and the patient has swelling of the left leg, and also left foot. MEDICATIONS: Her current medications include as follows, Ativan 2 mg IV x1 dose, Bactrim 80 mg every 12 hours, ferric gluconate 125 mg IV piggyback daily, Florastor 250 mg p.o. b.i.d., Lantus 16 units subcu at bedtime, cefepime 1 gm every 24 hours, morphine 4 mg IV every 4 hours p.r.n., ibuprofen 400 mg p.o. every 6 hours p.r.n., Nephro-Rosario 1 tablet daily, amlodipine 5 mg p.o. daily, Odefsey 1 tablet p.o. daily, Procrit 10,000 units 3 times a week, Protonix 40 mg daily, Reglan 10 mg IV p.r.n., Rocaltrol 0.25 mcg p.o. three times a week, and vancomycin 1 gm stat, Zofran 4 mg p.o. every 6 hours p.r.n., and Zoloft 50 mg p.o. daily. LABORATORY DATA: Include as follows, WBC 14, hemoglobin 7.2, hematocrit is 22.3, platelets 499. VBG, pH 7.24, pO2 of 57, pCO2 of 24, bicarb 12.6, and saturation 92.5. Sodium 136, potassium 5.2, chloride 105, CO2 of 21, BUN 37, creatinine 4.3, glucose 150, and calcium 8.7. Total bili 0.5, AST 24, ALT 18, alkaline phosphatase 167, total protein 8.3, albumin is 2.7. Influenza A and B antibodies negative. Chest x-ray as of 07/11/2017, right mid axillary line extending into the right mid axillary vein and diffuse increased interstitial lung markings suggestive for edema and/or infiltrate, more confluent conservative changes seen within the right infrahilar region and left lung base, cardiomegaly. IMPRESSION: In summary, Mrs. Johnson is a 36 years old young transgender female with human immunodeficiency virus positive, hypertension, diabetes, nephrotic range proteinuria, chronic kidney disease, Charcot's foot with osteomyelitis of the left foot who was admitted with fever and nausea, vomiting, low H and H. 1. Acute renal failure, on chronic kidney disease, most likely secondary to secondary to acute tubular necrosis, secondary to sepsis, secondary to chronic osteomyelitis of the fifth left foot. 2. Anemia secondary to renal failure and iron deficiency. 3. Mild metabolic acidosis. 4. Nephrotic range proteinuria, most likely secondary to underlying diabetic nephropathy, cannot rule out human immunodeficiency virus associated nephropathy or focal segmental glomerulosclerosis. 5. Uncontrolled diabetes. 6. Secondary hyperparathyroidism. Continue calcitriol 3 times a week. PLAN: Continue IV antibiotics as per ID recommendation. Continue Procrit, Nephro-Rosario. Discontinue IV fluids. Discontinue ibuprofen, and continue to monitor the potassium and renal function. We will add Lasix 40 mg p.o. daily and check echocardiogram for left ventricle ejection fraction and to rule out any vegetation. Thank you for allowing me to participate in your patient's care. Weston Brambila MD
[2017-07-12] MEDS: Morphine 4 MG/ML VIAL IV PRN ×4 (03:45→20:26)
[2017-07-12] MEDS ORDERED: Bupivacaine 0.25% Inj(30mL) ONE (07:33)
[2017-07-12] MEDS ORDERED: Propofol 10 mg/ml Inj (20 ML) ONE (07:57)
[2017-07-12] MEDS ORDERED: Midazolam 2 MG/2 ML VIAL ONE (07:57)
[2017-07-12] MEDS ORDERED: VANCOMYCIN IVPB SCH (08:00)
[2017-07-12] MEDS ORDERED: VANCOMYCIN IR SCH (08:00)
[2017-07-12] MEDS ORDERED: SODIUM CHLORIDE 0.9% IVPB SCH (08:00)
[2017-07-12] MEDS ORDERED: Bupivacaine HCl 0.5% PF (30 ml) Inj ONE (08:00)
[2017-07-12] MEDS ORDERED: SODIUM CHLORIDE 0.9% IR SCH (08:00)
[2017-07-12] MEDS: Lidocaine 2% MPF (5 ml) Inj ONE ×2 (08:15→11:00)
[2017-07-12] MEDS: Multivitamin Vitamin B Complex (Nephro-Vite) Tab PO SCH (08:30)
--- NOTE | 2017-07-12 08:31 | RAD ---
PROCEDURE: Left Foot Radiographs. HISTORY: left foot infection r/o gas COMPARISON: Left foot radiographs 07/05/2017. FINDINGS: BONES: Limited emphysematous changes remain at the midfoot laterally, proximal to it a bony deformity which fuses the 2nd through 5th metatarsal bones distally. Trace gas is also questioned at the interface between [place] axillary osteotomy highest cortex surrounding the 2nd metatarsal phalangeal joint. No increased gas production is appreciated though diffuse soft tissue edema is seen throughout the left foot once again. Multifocal osteotomies are again seen throughout the bases of the 2nd through proximal phalanges and the distal 1st metatarsal bone and likely the 2nd 3rd and 4th metatarsal bones distally with great toe again seen resected as well as the 5th metatarsal bone. JOINTS: As above. SOFT TISSUES: As above. OTHER FINDINGS: None. IMPRESSION: Postoperative changes are seen primarily throughout the forefoot including including amputation great toe and the 5th metatarsal bone. Numerous osteotomies as discussed above with residual gas seen at the midfoot laterally as well as likely in the interspace between osteotomies of the distal 2nd metatarsal bone and proximal phalanx 2nd digit. If osteomyelitis is of concern follow-up MRI is strongly advised. Diffuse cellulitis again evident.
[2017-07-12] MEDS ORDERED: Morphine 4 MG/ML VIAL IVP PRN (08:32)
[2017-07-12] MEDS ORDERED: Phenylephrine 10 mg/ml Inj ONE (08:33)
--- NOTE | 2017-07-12 08:34 | RAD ---
PROCEDURE: Radiographs of the left tibia and fibula. HISTORY: LLE infection r/o gas COMPARISON: None available. TECHNIQUE: Frontal and lateral views obtained. FINDINGS: BONES: No fracture or destructive lesion. JOINT SPACES: Unremarkable. OTHER FINDINGS: Mild soft tissue edema surrounds the ankle in the subcutaneous fat of the distal leg diffusely. Dermal calcifications are appreciated medial to the medial malleolus and incidental note is made of gas in the dorsal midfoot soft tissues UE postoperative or potentially infectious unless there is some history of penetrating injury here. Clinically correlate further. IMPRESSION: No acute fracture dislocation left tibia or fibula. No periosteal changes are appreciated or erosive changes to suggest osteomyelitis of either of these structures either. Diffuse the cellulitis seen at the distal leg soft tissues as well as nonspecific dermal calcifications likely in the skin overlying the medial malleolus. Emphysematous changes in the midfoot dorsal soft tissues may in fact and may indicate infectious or posttraumatic change. Clinically correlate further.
--- NOTE | 2017-07-12 08:51 | PCM.SURG1 ---
Surgeon's Initial Post Op Note - Surgeon's Notes Surgeon: Dr. Ken Tilley DPM Operating System Programmer: Dr. Larisa Nathan DPM PGY-1 Type of Anesthesia: General LMA, Local Anesthesia Administered By: Dr. 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 M: 1/4 inch iodoform packing. 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
[2017-07-12] MEDS ORDERED: SODIUM CHLORIDE 0.9% IR ONE (09:15)
[2017-07-12] MEDS ORDERED: VANCOMYCIN IR ONE (09:15)
[2017-07-12] MEDS: (Novolog) Insulin Aspart, Recombinant 100 u/ml 10 ml vial SC SCH ×2 (10:30→18:45)
[2017-07-12] MEDS: ODEFSEY PO SCH (11:00)
[2017-07-12] MEDS: Pantoprazole 40 mg EC Tab PO SCH (11:00)
[2017-07-12] MEDS: Sulfamethoxazole/Trimethoprim 80 MG in Dextrose 5% In Water 100 ML IVPB SCH ×2 (11:07)
[2017-07-12] MEDS: Saccharomyces Boulardi 250 mg Cap PO SCH ×2 (11:11→17:55)
--- NOTE | 2017-07-12 11:30 | CP.PCM.PN ---
Subjective - Date & Time of Evaluation Date of Evaluation: 07/09/17 Time of Evaluation: 16:24 - Subjective Subjective: DISCUSSED WITH AAKASH PICC RN THIS AFTERNOON NEED FOR IR TO EVALUATE PT'S PICC LINE THAT WAS INSERTED AT THE BEDSIDE. PER AAKASH IT IS NOT IN THE PROPER PLACE AND NEEDS TO BE ADJUSTED OR REMOVED/REINSERTED BY VITALIY COPPOLA. RN HOSPITAL CALLED BY IR , DR. VIVAR, AND PER DR. VIVAR THE PICC IS IN THE PROPER PLACE FOR IVFS AND IV ABX , WHICH THE PT IS RECEIVING. PER DR. VIVAR, NO NEED TO REMOVE OR ADJUST THE PLACEMENT OF THE EXISTING PICC LINE AND REQUESTED RN HOSPITAL D/C ORDER FOR IR. ORDER STOPPED. I DISCUSSED THIS WITH THE 3P-11P RN CARING FOR PT. NO FURTHER ORDERS. Objective - Vital Signs/Intake and Output Vital Signs (last 24 hours): Temp Pulse Resp BP Pulse Ox 97.8 F 99 H 20 143/81 96 07/12/17 10:28 07/12/17 10:28 07/12/17 10:28 07/12/17 10:28 07/12/17 10:28 Intake and Output: 07/12/17 07/12/17 06:59 18:59 Intake Total 600 100 Balance 600 100 - Medications Medications: Current Medications Amlodipine Besylate (Norvasc) 5 mg PO DAILY [facility] Last Admin: 07/12/17 11:00 Dose: 5 mg Calcitriol (Rocaltrol) 0.25 mcg PO TTS [facility] Last Admin: 07/10/17 09:10 Dose: 0.25 mcg Epoetin Anival (Procrit) 10,000 unit SC TTS [facility] Last Admin: 07/10/17 09:11 Dose: 10,000 unit Ferric Sodium Gluconate Complex (Ferrlecit) 125 mg IVPB DAILY [facility] Stop: 07/18/17 10:01 Last Admin: 07/11/17 11:00 Dose: 125 mg Home Med (Patient's Own Medication) 1 tab PO DAILY [facility] Last Admin: 07/12/17 11:00 Dose: 1 tab Cefepime HCl (Maxipime Iv 1 Gm Premix) 1 gm in 50 mls @ 100 mls/hr IVPB Q24H [facility] PRN Reason: Protocol Last Admin: 07/11/17 14:03 Dose: 100 mls/hr Vancomycin HCl 1 gm/ Sodium (Chloride) 1,000 mls @ 166.7 mls/hr IR ONCE ONE PRN Reason: Protocol Stop: 07/12/17 15:14 Insulin Aspart (Novolog) 16 unit SC BID [facility] Last Admin: 07/12/17 10:30 Dose: Not Given Insulin Glargine (Lantus) 16 unit SC HS [facility] Last Admin: 07/11/17 21:00 Dose: Not Given Metoclopramide HCl (Reglan) 10 mg IVP ACHS PRN PRN Reason: Nausea/Vomiting Last Admin: 07/11/17 08:30 Dose: 10 mg Morphine Sulfate (Morphine) 4 mg IV Q4 PRN PRN Reason: Pain, severe (8-10) Last Admin: 07/12/17 03:45 Dose: 4 mg Ondansetron HCl (Zofran Tab) 4 mg PO Q6H PRN PRN Reason: Nausea/Vomiting Last Admin: 07/11/17 19:51 Dose: 4 mg Pantoprazole Sodium (Protonix Ec Tab) 40 mg PO DAILY [facility] Last Admin: 07/12/17 11:00 Dose: 40 mg Saccharomyces Boulardii (Florastor) 250 mg PO BID [facility] Last Admin: 07/12/17 11:11 Dose: 250 mg Sertraline HCl (Zoloft) 50 mg PO DAILY [facility] Last Admin: 07/12/17 11:00 Dose: 50 mg Vitamin B Complex/Vit C/Folic Acid (Nephro-Rosario) 1 tab PO 0800 [facility] Last Admin: 07/12/17 08:30 Dose: Not Given - Labs Labs: 07/11/17 11:30 07/11/17 11:30 PT 14.4 SECONDS (9.7-12.2) H 07/05/17 23:07 INR 1.3 07/05/17 23:07 APTT 25 SECONDS (21-34) 07/05/17 23:07
--- NOTE | 2017-07-12 11:40 | CP.PCM.PN ---
Subjective - Date & Time of Evaluation Date of Evaluation: 07/12/17 Time of Evaluation: 10:00 - Subjective Subjective: events noted s/p debridement await OR cultures Objective - Vital Signs/Intake and Output Vital Signs (last 24 hours): Temp Pulse Resp BP Pulse Ox 97.8 F 99 H 20 143/81 96 07/12/17 10:28 07/12/17 10:28 07/12/17 10:28 07/12/17 10:28 07/12/17 10:28 Intake and Output: 07/12/17 07/12/17 06:59 18:59 Intake Total 600 100 Balance 600 100 - Medications Medications: Current Medications Amlodipine Besylate (Norvasc) 5 mg PO DAILY [facility] Last Admin: 07/12/17 11:00 Dose: 5 mg Calcitriol (Rocaltrol) 0.25 mcg PO TTS [facility] Last Admin: 07/10/17 09:10 Dose: 0.25 mcg Epoetin Anival (Procrit) 10,000 unit SC TTS [facility] Last Admin: 07/10/17 09:11 Dose: 10,000 unit Ferric Sodium Gluconate Complex (Ferrlecit) 125 mg IVPB DAILY [facility] Stop: 07/18/17 10:01 Last Admin: 07/11/17 11:00 Dose: 125 mg Home Med (Patient's Own Medication) 1 tab PO DAILY [facility] Last Admin: 07/12/17 11:00 Dose: 1 tab Cefepime HCl (Maxipime Iv 1 Gm Premix) 1 gm in 50 mls @ 100 mls/hr IVPB Q24H [facility] PRN Reason: Protocol Last Admin: 07/11/17 14:03 Dose: 100 mls/hr Vancomycin HCl 1 gm/ Sodium (Chloride) 1,000 mls @ 166.7 mls/hr IR ONCE ONE PRN Reason: Protocol Stop: 07/12/17 15:14 Insulin Aspart (Novolog) 16 unit SC BID [facility] Last Admin: 07/12/17 10:30 Dose: Not Given Insulin Glargine (Lantus) 16 unit SC HS [facility] Last Admin: 07/11/17 21:00 Dose: Not Given Metoclopramide HCl (Reglan) 10 mg IVP ACHS PRN PRN Reason: Nausea/Vomiting Last Admin: 07/11/17 08:30 Dose: 10 mg Morphine Sulfate (Morphine) 4 mg IV Q4 PRN PRN Reason: Pain, severe (8-10) Last Admin: 07/12/17 03:45 Dose: 4 mg Ondansetron HCl (Zofran Tab) 4 mg PO Q6H PRN PRN Reason: Nausea/Vomiting Last Admin: 07/11/17 19:51 Dose: 4 mg Pantoprazole Sodium (Protonix Ec Tab) 40 mg PO DAILY [facility] Last Admin: 07/12/17 11:00 Dose: 40 mg Saccharomyces Boulardii (Florastor) 250 mg PO BID [facility] Last Admin: 07/12/17 11:11 Dose: 250 mg Sertraline HCl (Zoloft) 50 mg PO DAILY [facility] Last Admin: 07/12/17 11:00 Dose: 50 mg Vitamin B Complex/Vit C/Folic Acid (Nephro-Rosario) 1 tab PO 0800 [facility] Last Admin: 07/12/17 08:30 Dose: Not Given - Labs Labs: 07/11/17 11:30 07/11/17 11:30 PT 14.4 SECONDS (9.7-12.2) H 07/05/17 23:07 INR 1.3 07/05/17 23:07 APTT 25 SECONDS (21-34) 07/05/17 23:07 Assessment and Plan (1) Gangrene associated with type 2 diabetes mellitus Status: Acute (2) Gangrene associated with type 2 diabetes mellitus Status: Acute (3) Diabetes mellitus type 1, uncontrolled, insulin dependent Status: Acute (4) Diabetic foot infection Status: Acute (5) Leg edema, left Status: Acute (6) HIV (human immunodeficiency virus infection) Status: Chronic (7) Obesities, morbid Status: Chronic (8) GAEL (acute kidney injury) Status: Acute (9) Abscess and cellulitis Status: Acute
[2017-07-12] MEDS: Ferric Sodium Gluconat Complex 62.5 mg/5 ml Vial IVPB SCH (12:00)
[2017-07-12] MEDS: Cefepime IV 1 gm in Dextrose 1 GM/50 ML BAG IVPB SCH (12:00)
--- NOTE | 2017-07-12 13:04 | CP.PCM.PN ---
Subjective - Date & Time of Evaluation Date of Evaluation: 07/12/17 Time of Evaluation: 13:02 - Subjective Subjective: PT WENT FOR OR, ID DONE. AFEBRILE. LEG PAIN PRESENT. Objective - Vital Signs/Intake and Output Vital Signs (last 24 hours): Temp Pulse Resp BP Pulse Ox 97.8 F 99 H 20 143/81 96 07/12/17 10:28 07/12/17 10:28 07/12/17 10:28 07/12/17 10:28 07/12/17 10:28 Intake and Output: 07/12/17 07/12/17 06:59 18:59 Intake Total 600 100 Balance 600 100 - Medications Medications: Current Medications Amlodipine Besylate (Norvasc) 5 mg PO DAILY [facility] Last Admin: 07/12/17 11:00 Dose: 5 mg Calcitriol (Rocaltrol) 0.25 mcg PO TTS [facility] Last Admin: 07/10/17 09:10 Dose: 0.25 mcg Epoetin Anival (Procrit) 10,000 unit SC TTS [facility] Last Admin: 07/10/17 09:11 Dose: 10,000 unit Ferric Sodium Gluconate Complex (Ferrlecit) 125 mg IVPB DAILY [facility] Stop: 07/18/17 10:01 Last Admin: 07/11/17 11:00 Dose: 125 mg Home Med (Patient's Own Medication) 1 tab PO DAILY [facility] Last Admin: 07/12/17 11:00 Dose: 1 tab Cefepime HCl (Maxipime Iv 1 Gm Premix) 1 gm in 50 mls @ 100 mls/hr IVPB Q24H [facility] PRN Reason: Protocol Last Admin: 07/11/17 14:03 Dose: 100 mls/hr Vancomycin HCl 1 gm/ Sodium (Chloride) 1,000 mls @ 166.7 mls/hr IR ONCE ONE PRN Reason: Protocol Stop: 07/12/17 15:14 Insulin Aspart (Novolog) 16 unit SC BID [facility] Last Admin: 07/12/17 10:30 Dose: Not Given Insulin Glargine (Lantus) 16 unit SC HS [facility] Last Admin: 07/11/17 21:00 Dose: Not Given Metoclopramide HCl (Reglan) 10 mg IVP ACHS PRN PRN Reason: Nausea/Vomiting Last Admin: 07/11/17 08:30 Dose: 10 mg Morphine Sulfate (Morphine) 4 mg IV Q4 PRN PRN Reason: Pain, severe (8-10) Last Admin: 07/12/17 12:23 Dose: 4 mg Ondansetron HCl (Zofran Tab) 4 mg PO Q6H PRN PRN Reason: Nausea/Vomiting Last Admin: 07/11/17 19:51 Dose: 4 mg Pantoprazole Sodium (Protonix Ec Tab) 40 mg PO DAILY [facility] Last Admin: 07/12/17 11:00 Dose: 40 mg Saccharomyces Boulardii (Florastor) 250 mg PO BID [facility] Last Admin: 07/12/17 11:11 Dose: 250 mg Sertraline HCl (Zoloft) 50 mg PO DAILY [facility] Last Admin: 07/12/17 11:00 Dose: 50 mg Vitamin B Complex/Vit C/Folic Acid (Nephro-Rosario) 1 tab PO 0800 [facility] Last Admin: 07/12/17 08:30 Dose: Not Given - Labs Labs: 07/11/17 11:30 07/11/17 11:30 PT 14.4 SECONDS (9.7-12.2) H 07/05/17 23:07 INR 1.3 07/05/17 23:07 APTT 25 SECONDS (21-34) 07/05/17 23:07 - Constitutional Appears: No Acute Distress, Chronically Ill - Eye Exam Eye Exam: EOMI, Normal appearance, PERRL Pupil Exam: NORMAL ACCOMODATION, PERRL - ENT Exam ENT Exam: Mucous Membranes Moist, Normal Exam - Neck Exam Neck Exam: Full ROM, Normal Inspection. absent: Lymphadenopathy - Respiratory Exam Respiratory Exam: Clear to Ausculation Bilateral, NORMAL BREATHING PATTERN - Cardiovascular Exam Cardiovascular Exam: REGULAR RHYTHM, +S1, +S2. absent: Murmur - GI/Abdominal Exam GI & Abdominal Exam: Soft, Normal Bowel Sounds. absent: Tenderness - Extremities Exam Extremities Exam: Full ROM, Normal Capillary Refill, Normal Inspection. absent : Joint Swelling, Pedal Edema - Back Exam Back Exam: NORMAL INSPECTION - Neurological Exam Neurological Exam: Alert, Awake, CN II-XII Intact, Normal Gait, Oriented x3 Assessment and Plan - Assessment and Plan (Free Text) Assessment: LT FOOT O/M AND ABSCESS. CRF ANEMIA. 7.2. Plan: FOR IV ANTIBIOTICS.
[2017-07-12 14:01] LABS: BASO % 0.3 % (0.0-2.0); EOS # 0.6 K/uL (0.0-0.7); EOS % 4.4 % (0.0-4.0); HEMOGLOBIN 7.5 g/dL (11.0-16.0); LYMPH # 1.6 K/uL (1.0-4.3); LYMPH % 11.2 % (20.0-40.0); MEAN CELL VOLUME 86.4 fL (81.0-99.0); MEAN CORPUSCULAR HEMOGLOBIN 28.4 pg (27.0-31.0); MEAN CORPUSCULAR HGB CONC 32.9 g/dL (33.0-37.0); MONO # 1.4 K/uL (0.0-0.8); MONO % 9.6 % (0.0-10.0); NEUT # 10.9 K/uL (1.8-7.0); NEUT % 74.5 % (50.0-75.0); NRBC % 0.1 % (0.0-2.0); RBC 2.64 Mil/uL (3.80-5.20); RED CELL DISTRIBUTION WIDTH 15.5 % (11.5-14.5); WHITE BLOOD COUNT 14.6 K/uL (4.8-10.8)
[2017-07-12 14:23] LABS: ALB/GLOB RATIO 0.5 (1.0-2.1); CALCIUM 9.1 mg/dl (8.6-10.4)
[2017-07-12] MEDS ORDERED: Sod Polystyrene Sulf 15 gm/60 ml Susp PO ONE (15:38)
--- NOTE | 2017-07-12 16:42 | CP.PCM.CON ---
<Trey Nichols - Last Filed: 07/12/17 20:12> History of Present Illness - History of Present Illness History of Present Illness: PGY-[address] Mcneal's cardiology service: 36yo transgender female with PMHx significant for uncontrolled DM (most recent A1c 11.1 in 2015), HIV (CD4 267 on 06/04/17), HIV, HTN, CKD, osteomyelitis, DVT ( IVC filter placement in LLE) who presented to the ED on 07/05/17 for treatment of left foot diabetic infection/osteomyelitis. Patient was recently admitted 06/07- and left AMA refusing a PICC line for chronic antibiotics. Patient has been non-compliant as outpatient and has refused Dr. Coy's recommendations of partial foot amputation and refuses to go to [facility]. Through course pt has been treated on IV antibiotics by ID Dr. Del Valle. On 07/11, PRODUCTION ADMINISTRATIVE ASSISTANT called for HR in 170s, fever (Tmax 102.9). Patient given bactrim IVPB for pneumocystis coverage due to history HIV and lapse in HAART therapy. Stat EKG performed, showing sinus tachycardia at 153bpm. VBG shock showed lactate of 0.9. Procalcitonin 18. Pt seen and examined at bedside. Pt denies chest pain, SOB, palpitations, but admits /10 leg pain and some anxiety pre-procedure. She is for debridement today with Dr. Coy's team. HR better controlled today. Nursing reports pt afebrile overnight. PMHx: uncontrolled DM (most recent A1c 11.1 in 2015), HIV (CD4 267 on 06/04/17), HIV, HTN, CKD, osteomyelitis, DVT (IVC filter placement in LLE) PSHx: Left 3-5th metatarsal amputation, IVC filter FHx: Multiple non-first degree relatives with unknown cancers Social: +Tobacco use, +marijuana use, Rare EtOH use Endo: No prior endoscopic evaluations Review of Systems - Constitutional Constitutional: absent: Chills, Fever, Night Sweats - EENT Eyes: absent: Change in Vision Nose/Mouth/Throat: absent: Post Nasal Drip - Cardiovascular Cardiovascular: absent: Chest Pain, Dyspnea - Respiratory Respiratory: absent: Cough, Dyspnea - Gastrointestinal Gastrointestinal: Nausea. absent: Abdominal Pain, Vomiting - Genitourinary Genitourinary: absent: Dysuria - Musculoskeletal Musculoskeletal: absent: Numbness, Tingling - Neurological Neurological: absent: Confusion - Psychiatric Psychiatric: Anxiety - Endocrine Endocrine: absent: Fatigue Past Patient History - Infectious Disease Hx of Infectious Diseases: None - Past Medical History & Family History Past Medical History?: Yes - Past Social History Smoking Status: Former Smoker - CARDIAC Hx Hypertension: Yes Hx Peripheral Edema: Yes - PULMONARY Hx Respiratory Disorders: No - NEUROLOGICAL Hx Neurological Disorder: No - HEENT Hx HEENT Problems: No - RENAL Hx Chronic Kidney Disease: No - HEMATOLOGICAL/ONCOLOGICAL Hx Human Immunodeficiency Virus (HIV): Yes - INTEGUMENTARY Hx Dermatological Problems: Yes Other/Comment: ULCER BOTTOM LEFT FOOT LEFT FOOT SUTURE LINES TOES - MUSCULOSKELETAL/RHEUMATOLOGICAL Hx Musculoskeletal Disorders: Yes Hx Falls: No Hx Osteomyelitis: Yes (LEFT FOOT, receiving daily infusion) - GASTROINTESTINAL Hx Gastrointestinal Disorders: No - GENITOURINARY/GYNECOLOGICAL Hx Genitourinary Disorders: No - PSYCHIATRIC Hx Depression: Yes Hx Substance Use: Yes (OCCASIONALLY) - ANESTHESIA Hx Anesthesia: Yes Hx Anesthesia Reactions: No (unknown) Meds Allergies/Adverse Reactions: Allergies Allergy/AdvReac Type Severity Reaction Status Date / Time acetaminophen [From Tylenol] Allergy RASH Verified 07/05/17 21:39 aspirin Allergy RASH Verified 07/05/17 21:39 hydromorphone [From Dilaudid] Allergy Verified 07/05/17 21:39 ketorolac tromethamine Allergy RASH Verified 07/05/17 21:39 [From Toradol] meperidine HCl [From Demerol] Allergy RASH Verified 07/05/17 21:39 oxycodone HCl [From Percocet] Allergy RASH Verified 07/05/17 21:39 peas Allergy ANAPHYLAXIS Verified 07/05/17 21:39 propoxyphene napsylate Allergy RASH Verified 07/05/17 21:39 [From Darvocet-N] - Medications Medications: Current Medications Amlodipine Besylate (Norvasc) 5 mg PO DAILY [facility] Last Admin: 07/12/17 11:00 Dose: 5 mg Calcitriol (Rocaltrol) 0.25 mcg PO TTS [facility] Last Admin: 07/10/17 09:10 Dose: 0.25 mcg Epoetin Anival (Procrit) 10,000 unit SC TTS [facility] Last Admin: 07/10/17 09:11 Dose: 10,000 unit Ferric Sodium Gluconate Complex (Ferrlecit) 125 mg IVPB DAILY [facility] Stop: 07/18/17 10:01 Last Admin: 07/12/17 12:00 Dose: Not Given Home Med (Patient's Own Medication) 1 tab PO DAILY [facility] Last Admin: 07/12/17 11:00 Dose: 1 tab Cefepime HCl (Maxipime Iv 1 Gm Premix) 1 gm in 50 mls @ 100 mls/hr IVPB Q24H [facility] PRN Reason: Protocol Last Admin: 07/12/17 12:00 Dose: Not Given Insulin Aspart (Novolog) 16 unit SC BID [facility] Last Admin: 07/12/17 10:30 Dose: Not Given Insulin Glargine (Lantus) 16 unit SC HS [facility] Last Admin: 07/11/17 21:00 Dose: Not Given Metoclopramide HCl (Reglan) 10 mg IVP ACHS PRN PRN Reason: Nausea/Vomiting Last Admin: 07/11/17 08:30 Dose: 10 mg Morphine Sulfate (Morphine) 4 mg IV Q4 PRN PRN Reason: Pain, severe (8-10) Last Admin: 07/12/17 16:26 Dose: 4 mg Ondansetron HCl (Zofran Tab) 4 mg PO Q6H PRN PRN Reason: Nausea/Vomiting Last Admin: 07/11/17 19:51 Dose: 4 mg Pantoprazole Sodium (Protonix Ec Tab) 40 mg PO DAILY [facility] Last Admin: 07/12/17 11:00 Dose: 40 mg Saccharomyces Boulardii (Florastor) 250 mg PO BID [facility] Last Admin: 07/12/17 11:11 Dose: 250 mg Sertraline HCl (Zoloft) 50 mg PO DAILY [facility] Last Admin: 07/12/17 11:00 Dose: 50 mg Vitamin B Complex/Vit C/Folic Acid (Nephro-Rosario) 1 tab PO 0800 [facility] Last Admin: 07/12/17 08:30 Dose: Not Given Physical Exam - Constitutional Appears: No Acute Distress, Chronically Ill - Head Exam Head Exam: ATRAUMATIC, NORMAL INSPECTION - Eye Exam Eye Exam: EOMI. absent: Scleral icterus Pupil Exam: PERRL - ENT Exam ENT Exam: Mucous Membranes Moist - Respiratory Exam Respiratory Exam: Clear to Auscultation Bilateral, NORMAL BREATHING PATTERN - Cardiovascular Exam Cardiovascular Exam: Tachycardia, +S1, +S2. absent: Systolic Murmur - GI/Abdominal Exam GI & Abdominal Exam: Normal Bowel Sounds, Soft. absent: Tenderness - Extremities Exam Extremities exam: Positive for: pedal edema, tenderness. Negative for: normal inspection Additional comments: Dressing recently changed - purulent left foot drainage, odor DP/PT pulses non-palpable - Back Exam Back exam: absent: CVA tenderness (L), CVA tenderness (R) - Neurological Exam Neurological exam: Alert, Oriented x3 - Psychiatric Exam Psychiatric exam: Normal Affect - Skin Skin Exam: Normal Color, Warm Results - Vital Signs Recent Vital Signs: Last Vital Signs Temp 98.6 F 07/12/17 15:58 Pulse 100 H 07/12/17 15:58 Resp 18 07/12/17 15:58 BP 139/75 07/12/17 15:58 Pulse Ox 95 07/12/17 15:58 - Labs Result Diagrams: 07/12/17 13:50 07/12/17 13:50 Labs: Laboratory Results - last 24 hr 07/11/17 07/11/17 07/12/17 11:30 21:05 10:08 WBC RBC Hgb Hct MCV MCH MCHC RDW Plt Count MPV Neut % (Auto) Lymph % (Auto) [place] % (Auto) Eos % (Auto) Baso % (Auto) Neut # (Auto) Lymph # (Auto) [place] # (Auto) Eos # (Auto) Baso # (Auto) Sodium Potassium Chloride Carbon Dioxide Anion Gap BUN Creatinine Est GFR ( Amer) Est GFR (Non-Af Amer) POC Glucose (mg/dL) 111 H 144 H Random Glucose Calcium Total Bilirubin AST ALT Alkaline Phosphatase Total Protein Albumin Globulin Albumin/Globulin Ratio Procalcitonin 18.34 H TSH 3rd Generation 07/12/17 07/12/17 07/12/17 11:19 13:50 13:50 WBC 14.6 H RBC 2.64 L Hgb 7.5 L Hct 22.8 L MCV 86.4 MCH 28.4 MCHC 32.9 L RDW 15.5 H Plt Count 566 H MPV 7.0 L Neut % (Auto) 74.5 Lymph % (Auto) 11.2 L [place] % (Auto) 9.6 Eos % (Auto) 4.4 H Baso % (Auto) 0.3 Neut # (Auto) 10.9 H Lymph # (Auto) 1.6 [place] # (Auto) 1.4 H Eos # (Auto) 0.6 Baso # (Auto) 0.0 Sodium 141 Potassium 5.5 H Chloride 106 Carbon Dioxide 21 L Anion Gap 20 BUN 46 H Creatinine 4.8 H Est GFR ( Amer) 12 Est GFR (Non-Af Amer) 10 POC Glucose (mg/dL) 129 H Random Glucose 134 H Calcium 9.1 Total Bilirubin 0.5 AST 32 ALT 15 Alkaline Phosphatase 214 H D Total Protein 8.9 H Albumin 3.0 L Globulin 5.9 H Albumin/Globulin Ratio 0.5 L Procalcitonin TSH 3rd Generation 5.65 H 07/12/17 16:16 WBC RBC Hgb Hct MCV MCH MCHC RDW Plt Count MPV Neut % (Auto) Lymph % (Auto) [place] % (Auto) Eos % (Auto) Baso % (Auto) Neut # (Auto) Lymph # (Auto) [place] # (Auto) Eos # (Auto) Baso # (Auto) Sodium Potassium Chloride Carbon Dioxide Anion Gap BUN Creatinine Est GFR ( Amer) Est GFR (Non-Af Amer) POC Glucose (mg/dL) 205 H Random Glucose Calcium Total Bilirubin AST ALT Alkaline Phosphatase Total Protein Albumin Globulin Albumin/Globulin Ratio Procalcitonin TSH 3rd Generation Assessment & Plan - Assessment and Plan (Free Text) Plan: Tachyacrdia Etiology: Sepsis-based, non-cardiogenic EKG (07/11/17): 153 bpm; sinus tach; no acute ST/T wave changes CXR (07/11/17): Diffuse increased interstitial lung markings suggestive for edema/ infiltrate. More confluent consolidative changes within right infrahilar region/ left lung base. TSH 5.65 (elevated) f/u troponin, ECHO f/u pancultures continue IV antibiotics per ID continue treatment of leg wounds per Dr. Tilley/Anneliese Nichols PGY-2 Discussed with attending, Dr. Mcneal <Ja Mcneal - Last Filed: 07/12/17 23:41> Meds - Medications Medications: Current Medications Amlodipine Besylate (Norvasc) 5 mg PO DAILY [facility] Last Admin: 07/12/17 11:00 Dose: 5 mg Calcitriol (Rocaltrol) 0.25 mcg PO TTS [facility] Last Admin: 07/10/17 09:10 Dose: 0.25 mcg Epoetin Anival (Procrit) 10,000 unit SC TTS [facility] Last Admin: 07/10/17 09:11 Dose: 10,000 unit Ferric Sodium Gluconate Complex (Ferrlecit) 125 mg IVPB DAILY [facility] Stop: 07/18/17 10:01 Last Admin: 07/12/17 12:00 Dose: Not Given Home Med (Patient's Own Medication) 1 tab PO DAILY [facility] Last Admin: 07/12/17 11:00 Dose: 1 tab Cefepime HCl (Maxipime Iv 1 Gm Premix) 1 gm in 50 mls @ 100 mls/hr IVPB Q24H [facility] PRN Reason: Protocol Last Admin: 07/12/17 12:00 Dose: Not Given Insulin Aspart (Novolog) 16 unit SC BID [facility] Last Admin: 07/12/17 18:45 Dose: 16 unit Insulin Glargine (Lantus) 16 unit SC HS [facility] Last Admin: 07/12/17 21:49 Dose: Not Given Metoclopramide HCl (Reglan) 10 mg IVP ACHS PRN PRN Reason: Nausea/Vomiting Last Admin: 07/11/17 08:30 Dose: 10 mg Morphine Sulfate (Morphine) 4 mg IV Q4 PRN PRN Reason: Pain, severe (8-10) Last Admin: 07/12/17 20:26 Dose: 4 mg Ondansetron HCl (Zofran Tab) 4 mg PO Q6H PRN PRN Reason: Nausea/Vomiting Last Admin: 07/11/17 19:51 Dose: 4 mg Pantoprazole Sodium (Protonix Ec Tab) 40 mg PO DAILY [facility] Last Admin: 07/12/17 11:00 Dose: 40 mg Saccharomyces Boulardii (Florastor) 250 mg PO BID [facility] Last Admin: 07/12/17 17:55 Dose: 250 mg Sertraline HCl (Zoloft) 50 mg PO DAILY [facility] Last Admin: 07/12/17 11:00 Dose: 50 mg Vitamin B Complex/Vit C/Folic Acid (Nephro-Rosario) 1 tab PO 0800 [facility] Last Admin: 07/12/17 08:30 Dose: Not Given Results - Vital Signs Recent Vital Signs: Last Vital Signs Temp 98.6 F 07/12/17 15:58 Pulse 100 H 07/12/17 15:58 Resp 18 07/12/17 15:58 BP 139/75 07/12/17 15:58 Pulse Ox 95 07/12/17 15:58 - Labs Result Diagrams: 07/12/17 13:50 07/12/17 13:50 Labs: Laboratory Results - last 24 hr 07/12/17 07/12/17 07/12/17 10:08 11:19 13:50 WBC 14.6 H RBC 2.64 L Hgb 7.5 L Hct 22.8 L MCV 86.4 MCH 28.4 MCHC 32.9 L RDW 15.5 H Plt Count 566 H MPV 7.0 L Neut % (Auto) 74.5 Lymph % (Auto) 11.2 L [place] % (Auto) 9.6 Eos % (Auto) 4.4 H Baso % (Auto) 0.3 Neut # (Auto) 10.9 H Lymph # (Auto) 1.6 [place] # (Auto) 1.4 H Eos # (Auto) 0.6 Baso # (Auto) 0.0 Sodium Potassium Chloride Carbon Dioxide Anion Gap BUN Creatinine Est GFR ( Amer) Est GFR (Non-Af Amer) POC Glucose (mg/dL) 144 H 129 H Random Glucose Calcium Total Bilirubin AST ALT Alkaline Phosphatase Total Creatine Kinase CK-MB (Mass) Troponin I Total Protein Albumin Globulin Albumin/Globulin Ratio TSH 3rd Generation 07/12/17 07/12/17 07/12/17 13:50 16:16 18:41 WBC RBC Hgb Hct MCV MCH MCHC RDW Plt Count MPV Neut % (Auto) Lymph % (Auto) [place] % (Auto) Eos % (Auto) Baso % (Auto) Neut # (Auto) Lymph # (Auto) [place] # (Auto) Eos # (Auto) Baso # (Auto) Sodium 141 Potassium 5.5 H Chloride 106 Carbon Dioxide 21 L Anion Gap 20 BUN 46 H Creatinine 4.8 H Est GFR ( Amer) 12 Est GFR (Non-Af Amer) 10 POC Glucose (mg/dL) 205 H Random Glucose 134 H Calcium 9.1 Total Bilirubin 0.5 AST 32 ALT 15 Alkaline Phosphatase 214 H D Total Creatine Kinase 121 CK-MB (Mass) 2.25 Troponin I 0.0440 Total Protein 8.9 H Albumin 3.0 L Globulin 5.9 H Albumin/Globulin Ratio 0.5 L TSH 3rd Generation 5.65 H 07/12/17 07/12/17 07/12/17 21:41 21:43 22:02 WBC RBC Hgb Hct MCV MCH MCHC RDW Plt Count MPV Neut % (Auto) Lymph % (Auto) [place] % (Auto) Eos % (Auto) Baso % (Auto) Neut # (Auto) Lymph # (Auto) [place] # (Auto) Eos # (Auto) Baso # (Auto) Sodium Potassium Chloride Carbon Dioxide Anion Gap BUN Creatinine Est GFR ( Amer) Est GFR (Non-Af Amer) POC Glucose (mg/dL) 67 64 L 75 Random Glucose Calcium Total Bilirubin AST ALT Alkaline Phosphatase Total Creatine Kinase CK-MB (Mass) Troponin I Total Protein Albumin Globulin Albumin/Globulin Ratio TSH 3rd Generation Assessment & Plan - Assessment and Plan (Free Text) Plan: Patient seen and evaluated by me Plan of care d/w the durable medical equipment technician and as documented
--- NOTE | 2017-07-12 16:50 | CP.PCM.PN ---
Subjective - Date & Time of Evaluation Date of Evaluation: 07/12/17 Time of Evaluation: 12:00 - Subjective Subjective: NIGHT CUSTODIAN CALLED BY AAKASH PICC RN QUESTIONING WHY PICC NOT ADJUSTED ON WEDNESDAY REQUESTED. I NOTIFIED AAKASH OF MY CONVERSATION WITH DR. VIVAR IN [facility] (SEE MY PREVIOUS PROGRESS NOTE). PER AAKASH PICC MUST BE REMOVED. NEW ORDER PLACED TODAY WITH IR. LEFT NOTE IN ORDER COMMENT SECTION FOR IR TO CONTACT AAKASH FOR ANY QUESTIONS REGARDING ORDER. NO FURTHER ORDERS. Objective - Vital Signs/Intake and Output Vital Signs (last 24 hours): Temp Pulse Resp BP Pulse Ox 98.6 F 100 H 18 139/75 95 07/12/17 15:58 07/12/17 15:58 07/12/17 15:58 07/12/17 15:58 07/12/17 15:58 Intake and Output: 07/12/17 07/12/17 06:59 18:59 Intake Total 600 100 Balance 600 100 - Medications Medications: Current Medications Amlodipine Besylate (Norvasc) 5 mg PO DAILY [facility] Last Admin: 07/12/17 11:00 Dose: 5 mg Calcitriol (Rocaltrol) 0.25 mcg PO TTS [facility] Last Admin: 07/10/17 09:10 Dose: 0.25 mcg Epoetin Anival (Procrit) 10,000 unit SC TTS [facility] Last Admin: 07/10/17 09:11 Dose: 10,000 unit Ferric Sodium Gluconate Complex (Ferrlecit) 125 mg IVPB DAILY [facility] Stop: 07/18/17 10:01 Last Admin: 07/12/17 12:00 Dose: Not Given Home Med (Patient's Own Medication) 1 tab PO DAILY [facility] Last Admin: 07/12/17 11:00 Dose: 1 tab Cefepime HCl (Maxipime Iv 1 Gm Premix) 1 gm in 50 mls @ 100 mls/hr IVPB Q24H [facility] PRN Reason: Protocol Last Admin: 07/12/17 12:00 Dose: Not Given Insulin Aspart (Novolog) 16 unit SC BID [facility] Last Admin: 07/12/17 10:30 Dose: Not Given Insulin Glargine (Lantus) 16 unit SC HS [facility] Last Admin: 07/11/17 21:00 Dose: Not Given Metoclopramide HCl (Reglan) 10 mg IVP ACHS PRN PRN Reason: Nausea/Vomiting Last Admin: 07/11/17 08:30 Dose: 10 mg Morphine Sulfate (Morphine) 4 mg IV Q4 PRN PRN Reason: Pain, severe (8-10) Last Admin: 07/12/17 16:26 Dose: 4 mg Ondansetron HCl (Zofran Tab) 4 mg PO Q6H PRN PRN Reason: Nausea/Vomiting Last Admin: 07/11/17 19:51 Dose: 4 mg Pantoprazole Sodium (Protonix Ec Tab) 40 mg PO DAILY [facility] Last Admin: 07/12/17 11:00 Dose: 40 mg Saccharomyces Boulardii (Florastor) 250 mg PO BID [facility] Last Admin: 07/12/17 11:11 Dose: 250 mg Sertraline HCl (Zoloft) 50 mg PO DAILY [facility] Last Admin: 07/12/17 11:00 Dose: 50 mg Vitamin B Complex/Vit C/Folic Acid (Nephro-Rosario) 1 tab PO 0800 [facility] Last Admin: 07/12/17 08:30 Dose: Not Given - Labs Labs: 07/12/17 13:50 07/12/17 13:50 PT 14.4 SECONDS (9.7-12.2) H 07/05/17 23:07 INR 1.3 07/05/17 23:07 APTT 25 SECONDS (21-34) 07/05/17 23:07
--- NOTE | 2017-07-12 18:58 | CP.PCM.PN ---
Subjective - Date & Time of Evaluation Date of Evaluation: 07/12/17 Time of Evaluation: 18:58 - Subjective Subjective: pt is seen and examined, follow up consult is dictated #[id number] Objective - Vital Signs/Intake and Output Vital Signs (last 24 hours): Temp Pulse Resp BP Pulse Ox 98.6 F 100 H 18 139/75 95 07/12/17 15:58 07/12/17 15:58 07/12/17 15:58 07/12/17 15:58 07/12/17 15:58 Intake and Output: 07/12/17 07/12/17 06:59 18:59 Intake Total 600 100 Balance 600 100 - Medications Medications: Current Medications Amlodipine Besylate (Norvasc) 5 mg PO DAILY [facility] Last Admin: 07/12/17 11:00 Dose: 5 mg Calcitriol (Rocaltrol) 0.25 mcg PO TTS [facility] Last Admin: 07/10/17 09:10 Dose: 0.25 mcg Epoetin Anival (Procrit) 10,000 unit SC TTS [facility] Last Admin: 07/10/17 09:11 Dose: 10,000 unit Ferric Sodium Gluconate Complex (Ferrlecit) 125 mg IVPB DAILY [facility] Stop: 07/18/17 10:01 Last Admin: 07/12/17 12:00 Dose: Not Given Home Med (Patient's Own Medication) 1 tab PO DAILY [facility] Last Admin: 07/12/17 11:00 Dose: 1 tab Cefepime HCl (Maxipime Iv 1 Gm Premix) 1 gm in 50 mls @ 100 mls/hr IVPB Q24H [facility] PRN Reason: Protocol Last Admin: 07/12/17 12:00 Dose: Not Given Insulin Aspart (Novolog) 16 unit SC BID [facility] Last Admin: 07/12/17 10:30 Dose: Not Given Insulin Glargine (Lantus) 16 unit SC HS [facility] Last Admin: 07/11/17 21:00 Dose: Not Given Metoclopramide HCl (Reglan) 10 mg IVP ACHS PRN PRN Reason: Nausea/Vomiting Last Admin: 07/11/17 08:30 Dose: 10 mg Morphine Sulfate (Morphine) 4 mg IV Q4 PRN PRN Reason: Pain, severe (8-10) Last Admin: 07/12/17 16:26 Dose: 4 mg Ondansetron HCl (Zofran Tab) 4 mg PO Q6H PRN PRN Reason: Nausea/Vomiting Last Admin: 07/11/17 19:51 Dose: 4 mg Pantoprazole Sodium (Protonix Ec Tab) 40 mg PO DAILY [facility] Last Admin: 07/12/17 11:00 Dose: 40 mg Saccharomyces Boulardii (Florastor) 250 mg PO BID [facility] Last Admin: 07/12/17 17:55 Dose: 250 mg Sertraline HCl (Zoloft) 50 mg PO DAILY [facility] Last Admin: 07/12/17 11:00 Dose: 50 mg Vitamin B Complex/Vit C/Folic Acid (Nephro-Rosario) 1 tab PO 0800 [facility] Last Admin: 07/12/17 08:30 Dose: Not Given - Labs Labs: 07/12/17 13:50 07/12/17 13:50 PT 14.4 SECONDS (9.7-12.2) H 07/05/17 23:07 INR 1.3 07/05/17 23:07 APTT 25 SECONDS (21-34) 07/05/17 23:07
[2017-07-12 19:04] LABS: CK-MB 2.25 ng/mL (0.0-3.38); TROPONIN I 0.044 ng/mL (0.00-0.120)
[2017-07-12] MEDS: (Lantus) Insulin Glargine, Recombinant SC SCH (21:49)
[2017-07-13] MEDS: Morphine 4 MG/ML VIAL IV PRN ×6 (00:25→23:09)
--- NOTE | 2017-07-13 01:19 | PN ---
DATE: 07/12/2017 FOLLOWUP RENAL [id number]/09/2018LOCATION: The patient is located in room 568, bed B. REQUESTED BY: Art Nathan MD HISTORY OF PRESENT ILLNESS: Mrs. Johnson is a 36 years old young transgender female with history of HIV positive, hypertension, diabetes, Charcot's foot, chronic osteomyelitis of the left foot who was admitted with fever, nausea, vomiting on and off, and also found to have low H and H and worsening renal function. The patient underwent debridement of the left leg this afternoon. The patient is not in distress. Denies any vomiting today. No chest pain or palpitation. No shortness of breath. PHYSICAL EXAMINATION: VITAL SIGNS: This afternoon as follows, blood pressure 139/75, pulse 100, respirations 18, temperature 98.6, saturation 95%. Height 6 feet 3 inches and weight is 280 pounds. GENERAL: Mrs. Johnson is a 36 years old young transgender female, well-built, well-nourished, not in acute distress. HEENT: Pupils normal and reactive to light and accommodation. Conjunctivae pink. Sclerae anicteric. Tongue is moist. Trachea is midline. LUNGS: Symmetric on both sides. Bilateral breath sounds present. Clear to auscultation. CVS: [place] at the fifth intercostal space, midclavicular line. S1, S2 audible. No murmur or gallop. ABDOMEN: Normal in appearance, soft, tympanic. No guarding. No rigidity. No hepatosplenomegaly. PIGMENT MAKING SUPERVISOR: The patient is alert, awake, oriented x3. Nonfocal neuro examination. Cranial nerves II through XII grossly intact. Sensory and motor system is within normal limits. EXTREMITIES: No cyanosis, no clubbing, no edema on the right leg. The patient has a dressing to the left leg and it is slightly soaked with fresh blood. MEDICATIONS: Her current medications include as follows: Ferrlecit 125 mg IV daily, Florastor 250 mg p.o. b.i.d., Lantus 16 units subcu at bedtime, cefepime 1 gm every 24 hours, morphine 400 mg IV every 4 hours, Nephro-Rosario 1 tablet daily, amlodipine 5 mg daily, NovoLog 16 units subcu b.i.d., Odefsey 1 tablet daily, Procrit 10,000 units 3 times a week, Protonix 40 mg p.o. daily, Reglan 10 mg IV a.c. at bedtime, Rocaltrol 0.25 mcg p.o. three times a week, Zofran 4 mg p.o. every 6 hours, and Zoloft 50 mg p.o. daily. The patient is off of Bactrim. LABORATORY DATA: Include as follows, as of 07/12/2017, WBC 14.6, hemoglobin 7.5, hematocrit is 22.8, platelets 566. Sodium 141, potassium 5.5, chloride 106, CO2 of 21, BUN 46, creatinine 4.8, glucose 134, calcium 9.1. Total bili 0.5, AST 32, ALT 15, alkaline phosphatase 214, CPK 121. CK-MB 2.25. Troponin 0.044. Total protein 8.9, albumin is 3.0. TSH is 5.65. As of 07/05/2017, blood culture x2 negative day five and urine culture is negative as of 07/06/2017, and blood culture x1, two sets are negative as of 07/11/2017. Urine culture again is negative as of 07/11/2017. Wound culture from the left foot is pending from 07/11/2017 and also from 07/12/2017. IMPRESSION: In summary, Mrs. Johnson is a 36 years old young transgender female with human immunodeficiency virus positive, hypertension, diabetes, Charcot's foot, osteomyelitis of the left foot with fever on and off, was admitted with nausea, vomiting, and increased BUN and creatinine. 1. Acute renal failure on chronic kidney disease, rule out acute tubular necrosis secondary to sepsis. 2. Chronic kidney disease, most likely secondary to diabetic nephropathy, cannot rule out underlying chronic glomerulonephritis such as focal segmental glomerulosclerosis or human immunodeficiency virus associated nephropathy. 3. Hypertension. 4. Anemia. 5. Left foot infection. 6. Hyperkalemia, most likely secondary to worsening renal function and Bactrim. The patient is off Bactrim now and continue IV antibiotics as per Dr. Del Valle. Continue Procrit. Continue Nephro-Rosario. Continue calcitriol for secondary hyperparathyroidism. Consider to transfuse if needed. Thank you for allowing me to participate in your patient's care. Check echocardiogram for left ventricle ejection fraction Weston Brambila MD [facility] # [id number]
--- NOTE | 2017-07-13 05:17 | OP ---
PROCEDURE DATE: 07/12/2017 PREOPERATIVE DIAGNOSIS: Left foot soft tissue emphysema. POSTOPERATIVE DIAGNOSIS: Left foot soft tissue emphysema. PROCEDURE: Incision and drainage with removal of nonviable soft tissue of the left foot. SURGEON: Ken Figueroa DPM COW TESTER: Larisa Nathan DPM, PGY-1. TYPE OF ANESTHESIA: LMA with local. ANESTHESIOLOGIST: Dr. Lopez. INDICATIONS: The patient is a 36-year-old female with the above diagnosis. The patient had exhausted all conservative treatment at this time, and now required surgical intervention. The patient signed the consent after careful explanation of risks, benefits, complications, and alternatives for the surgical procedure. No guarantees were given nor implied. PREPARATION: The patient was brought into the operating room and placed on the operating room table in supine position. Timeout was performed for identification of the correct patient and procedure. DESCRIPTION OF PROCEDURE: After the induction of LMA, the patient received total of 20 mL of 1:1 mixture of 2% lidocaine plain and 0.5% Marcaine plain in a local block type fashion to the left forefoot. Once local anesthesia was achieved, the left foot was then prepped and draped in normal sterile manner. No tourniquet was used during this procedure of incision and drainage with the removal of nonviable soft tissue of the left foot. Attention was directed towards the dorsum of the left foot at the level of the second metatarsal where a bulla with fluctuance in the subcutaneous tissue was noted. Straight incision down to the subdermal level was made over the bulla using a #10 blade, using a straight fat pocket of abscess was found and punctured. All of the sinus tract were opened. Sinus tract was exposed to the lateral aspect of the foot, where another open wound was noted. Pressures were applied in all directions from proximal to distal and distal to proximal to remove all of the purulent drainage from the incision site of the wound, approximately 15 mL of purulent drainage was expressed. All of the nonviable soft tissue was surgically debrided using iris scissors. At that time, using a pulse lavage, the incision was irrigated with vancomycin and through saline. Deep wound cultures were taken at this time. Surgical site was left open and tacked with 0.25 inch iodoform packing and dressed with 4 x 4 ABD Kerlix. POSTOPERATIVE CONDITION: The patient tolerated the anesthesia and the procedure well and was escorted to the recovery room with vital signs stable and neurovascular status intact to the left foot. This patient to weight bear as tolerated to the left foot with surgical shoe. The patient will return to the floor where she will be followed up by Podiatry. Larisa Nathan DPM
[2017-07-13 08:07] LABS: BASO # 0.1 K/uL (0.0-0.2); BASO % 1.1 % (0.0-2.0); EOS # 0.7 K/uL (0.0-0.7); EOS % 5.2 % (0.0-4.0); LYMPH # 2.2 K/uL (1.0-4.3); LYMPH % 16.6 % (20.0-40.0); MEAN CELL VOLUME 85.4 fL (81.0-99.0); MEAN CORPUSCULAR HEMOGLOBIN 28.4 pg (27.0-31.0); MEAN CORPUSCULAR HGB CONC 33.3 g/dL (33.0-37.0); MEAN PLATELET VOLUME 7.1 fL (7.2-11.7); MONO # 1.6 K/uL (0.0-0.8); MONO % 12.5 % (0.0-10.0); NEUT # 8.5 K/uL (1.8-7.0); NEUT % 64.6 % (50.0-75.0); NRBC % 0.2 % (0.0-2.0); RBC 2.32 Mil/uL (3.80-5.20); RED CELL DISTRIBUTION WIDTH 15.7 % (11.5-14.5); WHITE BLOOD COUNT 13.2 K/uL (4.8-10.8)
[2017-07-13 08:15] LABS: ALB/GLOB RATIO 0.5 (1.0-2.1); ALBUMIN 2.6 g/dL (3.5-5.0); CALCIUM 8.5 mg/dl (8.6-10.4)
[2017-07-13 08:17] LABS: HEMOGLOBIN 6.6 g/dL (11.0-16.0)
[2017-07-13] MEDS: Multivitamin Vitamin B Complex (Nephro-Vite) Tab PO SCH (08:37)
--- NOTE | 2017-07-13 10:35 | PCM.SURG1 ---
Surgeon's Initial Post Op Note - Surgeon's Notes Surgeon: Tremaine Barnes MD Professor Of Theatre: NONE Type of Anesthesia: Local Pre-Operative Diagnosis: Gangrene foot Operative Findings: Existing picc is coilied at entry site and axilla. Patent right basilic vein on US. Post-Operative Diagnosis: Gangrene foot Operation Performed: Dual lumen picc placement right basilic vein, 47 cm. Tip is in the SVC. Specimen/Specimens Removed: Existing picc Estimated Blood Loss: EBL {In ML}: 15 Blood Products Given: N/A Drains Used: No Drains Post-Op Condition: Fair Date of Surgery/Procedure: 07/13/17 Time of Surgery/Procedure: 10:30
--- NOTE | 2017-07-13 10:36 | CP.PCM.PN ---
Subjective - Date & Time of Evaluation Date of Evaluation: 07/13/17 Time of Evaluation: 10:36 - Subjective Subjective: follow up consult is dictated #[id number] Objective - Vital Signs/Intake and Output Vital Signs (last 24 hours): Temp Pulse Resp BP Pulse Ox 99.5 F 110 H 20 130/76 95 07/13/17 07:41 07/13/17 07:41 07/13/17 07:41 07/13/17 07:41 07/13/17 07:41 Intake and Output: 07/13/17 07/13/17 06:59 18:59 Intake Total 500 Output Total 1000 Balance -500 - Medications Medications: Current Medications Amlodipine Besylate (Norvasc) 5 mg PO DAILY [facility] Last Admin: 07/12/17 11:00 Dose: 5 mg Calcitriol (Rocaltrol) 0.25 mcg PO TTS [facility] Last Admin: 07/10/17 09:10 Dose: 0.25 mcg Epoetin Anival (Procrit) 10,000 unit SC TTS [facility] Last Admin: 07/10/17 09:11 Dose: 10,000 unit Ferric Sodium Gluconate Complex (Ferrlecit) 125 mg IVPB DAILY [facility] Stop: 07/18/17 10:01 Last Admin: 07/12/17 12:00 Dose: Not Given Home Med (Patient's Own Medication) 1 tab PO DAILY [facility] Last Admin: 07/12/17 11:00 Dose: 1 tab Cefepime HCl (Maxipime Iv 1 Gm Premix) 1 gm in 50 mls @ 100 mls/hr IVPB Q24H XIOMARA PRN Reason: Protocol Last Admin: 07/12/17 12:00 Dose: Not Given Insulin Aspart (Novolog) 16 unit SC BID [facility] Last Admin: 07/12/17 18:45 Dose: 16 unit Insulin Glargine (Lantus) 16 unit SC HS [facility] Last Admin: 07/12/17 21:49 Dose: Not Given Metoclopramide HCl (Reglan) 10 mg IVP ACHS PRN PRN Reason: Nausea/Vomiting Last Admin: 07/11/17 08:30 Dose: 10 mg Morphine Sulfate (Morphine) 4 mg IV Q4 PRN PRN Reason: Pain, severe (8-10) Last Admin: 07/13/17 08:33 Dose: 4 mg Ondansetron HCl (Zofran Tab) 4 mg PO Q6H PRN PRN Reason: Nausea/Vomiting Last Admin: 07/11/17 19:51 Dose: 4 mg Pantoprazole Sodium (Protonix Ec Tab) 40 mg PO DAILY [facility] Last Admin: 07/12/17 11:00 Dose: 40 mg Saccharomyces Boulardii (Florastor) 250 mg PO BID [facility] Last Admin: 07/12/17 17:55 Dose: 250 mg Sertraline HCl (Zoloft) 50 mg PO DAILY [facility] Last Admin: 07/12/17 11:00 Dose: 50 mg Vitamin B Complex/Vit C/Folic Acid (Nephro-Rosario) 1 tab PO 0800 [facility] Last Admin: 07/13/17 08:37 Dose: 1 tab - Labs Labs: 07/13/17 07:57 07/13/17 07:57 PT 14.4 SECONDS (9.7-12.2) H 07/05/17 23:07 INR 1.3 07/05/17 23:07 APTT 25 SECONDS (21-34) 07/05/17 23:07
[2017-07-13] MEDS ORDERED: Morphine 4 MG/ML VIAL IVP STA (10:58)
--- NOTE | 2017-07-13 11:05 | CP.PCM.PN ---
Subjective - Date & Time of Evaluation Date of Evaluation: 07/13/17 Time of Evaluation: 11:02 - Subjective Subjective: BACK FROM IR. PICC LINE DONE. C/O SEVERE LEG PAIN LEVEL8 ANEMIA PRESENT. HB 6.5 Objective - Vital Signs/Intake and Output Vital Signs (last 24 hours): Temp Pulse Resp BP Pulse Ox 99.5 F 110 H 20 130/76 95 07/13/17 07:41 07/13/17 07:41 07/13/17 07:41 07/13/17 07:41 07/13/17 07:41 Intake and Output: 07/13/17 07/13/17 06:59 18:59 Intake Total 500 Output Total 1000 Balance -500 - Medications Medications: Current Medications Amlodipine Besylate (Norvasc) 5 mg PO DAILY [facility] Last Admin: 07/12/17 11:00 Dose: 5 mg Calcitriol (Rocaltrol) 0.25 mcg PO TTS [facility] Last Admin: 07/10/17 09:10 Dose: 0.25 mcg Epoetin Anivla (Procrit) 10,000 unit SC TTS [facility] Last Admin: 07/10/17 09:11 Dose: 10,000 unit Ferric Sodium Gluconate Complex (Ferrlecit) 125 mg IVPB DAILY [facility] Stop: 07/18/17 10:01 Last Admin: 07/12/17 12:00 Dose: Not Given Home Med (Patient's Own Medication) 1 tab PO DAILY [facility] Last Admin: 07/12/17 11:00 Dose: 1 tab Cefepime HCl (Maxipime Iv 1 Gm Premix) 1 gm in 50 mls @ 100 mls/hr IVPB Q24H XIOMARA PRN Reason: Protocol Last Admin: 07/12/17 12:00 Dose: Not Given Insulin Aspart (Novolog) 16 unit SC BID [facility] Last Admin: 07/12/17 18:45 Dose: 16 unit Insulin Glargine (Lantus) 16 unit SC HS [facility] Last Admin: 07/12/17 21:49 Dose: Not Given Metoclopramide HCl (Reglan) 10 mg IVP ACHS PRN PRN Reason: Nausea/Vomiting Last Admin: 07/11/17 08:30 Dose: 10 mg Morphine Sulfate (Morphine) 4 mg IV Q4 PRN PRN Reason: Pain, severe (8-10) Last Admin: 07/13/17 08:33 Dose: 4 mg Ondansetron HCl (Zofran Tab) 4 mg PO Q6H PRN PRN Reason: Nausea/Vomiting Last Admin: 07/11/17 19:51 Dose: 4 mg Pantoprazole Sodium (Protonix Ec Tab) 40 mg PO DAILY [facility] Last Admin: 07/12/17 11:00 Dose: 40 mg Saccharomyces Boulardii (Florastor) 250 mg PO BID [facility] Last Admin: 07/12/17 17:55 Dose: 250 mg Sertraline HCl (Zoloft) 50 mg PO DAILY [facility] Last Admin: 07/12/17 11:00 Dose: 50 mg Vitamin B Complex/Vit C/Folic Acid (Nephro-Rosario) 1 tab PO 0800 [facility] Last Admin: 07/13/17 08:37 Dose: 1 tab - Labs Labs: 07/13/17 07:57 07/13/17 07:57 PT 14.4 SECONDS (9.7-12.2) H 07/05/17 23:07 INR 1.3 07/05/17 23:07 APTT 25 SECONDS (21-34) 07/05/17 23:07 - Constitutional Appears: No Acute Distress, Chronically Ill - Eye Exam Eye Exam: EOMI, Normal appearance, PERRL Pupil Exam: NORMAL ACCOMODATION, PERRL - ENT Exam ENT Exam: Mucous Membranes Moist, Normal Exam - Neck Exam Neck Exam: Full ROM, Normal Inspection. absent: Lymphadenopathy - Respiratory Exam Respiratory Exam: Clear to Ausculation Bilateral, NORMAL BREATHING PATTERN - Cardiovascular Exam Cardiovascular Exam: REGULAR RHYTHM, +S1, +S2. absent: Murmur - GI/Abdominal Exam GI & Abdominal Exam: Soft, Normal Bowel Sounds. absent: Tenderness - Extremities Exam Extremities Exam: Full ROM, Normal Capillary Refill, Normal Inspection. absent : Joint Swelling, Pedal Edema - Back Exam Back Exam: NORMAL INSPECTION - Neurological Exam Neurological Exam: Alert, Awake, CN II-XII Intact, Normal Gait, Oriented x3 - Psychiatric Exam Psychiatric exam: Normal Affect, Normal Mood Assessment and Plan - Assessment and Plan (Free Text) Assessment: O/M LT FOOT. ANEMIA. CRF. Plan: FOR BLOOD TRANSFUSION. CT IV ABTS. PODIETRY F/U.
[2017-07-13] MEDS: (Novolog) Insulin Aspart, Recombinant 100 u/ml 10 ml vial SC SCH ×2 (11:09→18:00)
[2017-07-13] MEDS: Epoetin Alfa 10,000 unit/ml Dialysis SC SCH (11:10)
[2017-07-13] MEDS: Ferric Sodium Gluconat Complex 62.5 mg/5 ml Vial IVPB SCH (11:11)
[2017-07-13] MEDS: ODEFSEY PO SCH (11:13)
[2017-07-13] MEDS: Saccharomyces Boulardi 250 mg Cap PO SCH ×2 (11:13→19:00)
[2017-07-13] MEDS: Pantoprazole 40 mg EC Tab PO SCH (11:14)
--- NOTE | 2017-07-13 11:41 | CP.PCM.PN ---
Subjective - Date & Time of Evaluation Date of Evaluation: 07/13/17 Time of Evaluation: 10:00 - Subjective Subjective: discussed on rounds vanco random ordered may need HD discussed with dr Hauser Objective - Vital Signs/Intake and Output Vital Signs (last 24 hours): Temp Pulse Resp BP Pulse Ox 99.5 F 110 H 20 130/76 95 07/13/17 07:41 07/13/17 07:41 07/13/17 07:41 07/13/17 07:41 07/13/17 07:41 Intake and Output: 07/13/17 07/13/17 06:59 18:59 Intake Total 500 Output Total 1000 Balance -500 - Medications Medications: Current Medications Amlodipine Besylate (Norvasc) 5 mg PO DAILY [facility] Last Admin: 07/13/17 11:12 Dose: 5 mg Calcitriol (Rocaltrol) 0.25 mcg PO TTS [facility] Last Admin: 07/13/17 11:12 Dose: 0.25 mcg Epoetin Anival (Procrit) 10,000 unit SC TTS [facility] Last Admin: 07/13/17 11:10 Dose: 10,000 unit Ferric Sodium Gluconate Complex (Ferrlecit) 125 mg IVPB DAILY [facility] Stop: 07/18/17 10:01 Last Admin: 07/13/17 11:11 Dose: 125 mg Home Med (Patient's Own Medication) 1 tab PO DAILY [facility] Last Admin: 07/13/17 11:13 Dose: 1 tab Cefepime HCl (Maxipime Iv 1 Gm Premix) 1 gm in 50 mls @ 100 mls/hr IVPB Q24H XIOMARA PRN Reason: Protocol Last Admin: 07/12/17 12:00 Dose: Not Given Insulin Aspart (Novolog) 16 unit SC BID [facility] Last Admin: 07/13/17 11:09 Dose: 16 unit Insulin Glargine (Lantus) 16 unit SC HS [facility] Last Admin: 07/12/17 21:49 Dose: Not Given Metoclopramide HCl (Reglan) 10 mg IVP ACHS PRN PRN Reason: Nausea/Vomiting Last Admin: 07/11/17 08:30 Dose: 10 mg Morphine Sulfate (Morphine) 4 mg IV Q4 PRN PRN Reason: Pain, severe (8-10) Last Admin: 07/13/17 08:33 Dose: 4 mg Ondansetron HCl (Zofran Tab) 4 mg PO Q6H PRN PRN Reason: Nausea/Vomiting Last Admin: 07/11/17 19:51 Dose: 4 mg Pantoprazole Sodium (Protonix Ec Tab) 40 mg PO DAILY [facility] Last Admin: 07/13/17 11:14 Dose: 40 mg Saccharomyces Boulardii (Florastor) 250 mg PO BID [facility] Last Admin: 07/13/17 11:13 Dose: 250 mg Sertraline HCl (Zoloft) 50 mg PO DAILY [facility] Last Admin: 07/13/17 11:13 Dose: 50 mg Vitamin B Complex/Vit C/Folic Acid (Nephro-Rosario) 1 tab PO 0800 [facility] Last Admin: 07/13/17 08:37 Dose: 1 tab - Labs Labs: 07/13/17 07:57 07/13/17 07:57 PT 14.4 SECONDS (9.7-12.2) H 07/05/17 23:07 INR 1.3 07/05/17 23:07 APTT 25 SECONDS (21-34) 07/05/17 23:07 - Constitutional Appears: Non-toxic, Chronically Ill - Head Exam Head Exam: NORMOCEPHALIC - Eye Exam Eye Exam: PERRL. absent: Scleral icterus - ENT Exam ENT Exam: Mucous Membranes Dry - Neck Exam Neck Exam: absent: Lymphadenopathy - Respiratory Exam Respiratory Exam: Decreased Breath Sounds - Cardiovascular Exam Cardiovascular Exam: REGULAR RHYTHM - GI/Abdominal Exam GI & Abdominal Exam: Distended - Rectal Exam Rectal Exam: Deferred - Exam Exam: NORMAL INSPECTION - Extremities Exam Extremities Exam: Pedal Edema - Back Exam Back Exam: absent: CVA tenderness (L), CVA tenderness (R) - Neurological Exam Neurological Exam: Alert, Awake, Oriented x3 Assessment and Plan (1) Gangrene associated with type 2 diabetes mellitus Status: Acute (2) Gangrene associated with type 2 diabetes mellitus Status: Acute (3) Diabetes mellitus type 1, uncontrolled, insulin dependent Status: Acute (4) Diabetic foot infection Status: Acute (5) Leg edema, left Status: Acute (6) HIV (human immunodeficiency virus infection) Status: Chronic (7) Obesities, morbid Status: Chronic (8) GAEL (acute kidney injury) Status: Acute (9) Abscess and cellulitis Status: Acute
--- NOTE | 2017-07-13 11:45 | CP.PCM.PN ---
Subjective - Date & Time of Evaluation Date of Evaluation: 07/13/17 Time of Evaluation: 12:45 - Subjective Subjective: Podiatry Progress Note- Dr. Figueroa Pt seen at bedside today 1 day s/p I&D in OR for L diabetic foot infection with Dr. Figueroa. Pt just returned from IR for replacement of PICC line at time of visit. Pt does complain of some tenderness to the left leg and foot today, well controlled with pain meds. Denies f/n/v/c/sob/cp/deep calf pain at this time. Reports an uneventful overnight course. No other complaints today. Objective - Vital Signs/Intake and Output Vital Signs (last 24 hours): Temp Pulse Resp BP Pulse Ox 99.5 F 110 H 20 130/76 95 07/13/17 07:41 07/13/17 07:41 07/13/17 07:41 07/13/17 07:41 07/13/17 07:41 Intake and Output: 07/13/17 07/13/17 06:59 18:59 Intake Total 500 Output Total 1000 Balance -500 - Medications Medications: Current Medications Amlodipine Besylate (Norvasc) 5 mg PO DAILY [facility] Last Admin: 07/13/17 11:12 Dose: 5 mg Calcitriol (Rocaltrol) 0.25 mcg PO TTS [facility] Last Admin: 07/13/17 11:12 Dose: 0.25 mcg Epoetin Anival (Procrit) 10,000 unit SC TTS [facility] Last Admin: 07/13/17 11:10 Dose: 10,000 unit Ferric Sodium Gluconate Complex (Ferrlecit) 125 mg IVPB DAILY [facility] Stop: 07/18/17 10:01 Last Admin: 07/13/17 11:11 Dose: 125 mg Home Med (Patient's Own Medication) 1 tab PO DAILY [facility] Last Admin: 07/13/17 11:13 Dose: 1 tab Cefepime HCl (Maxipime Iv 1 Gm Premix) 1 gm in 50 mls @ 100 mls/hr IVPB Q24H [facility] PRN Reason: Protocol Last Admin: 07/12/17 12:00 Dose: Not Given Insulin Aspart (Novolog) 16 unit SC BID [facility] Last Admin: 07/13/17 11:09 Dose: 16 unit Insulin Glargine (Lantus) 16 unit SC HS [facility] Last Admin: 07/12/17 21:49 Dose: Not Given Metoclopramide HCl (Reglan) 10 mg IVP ACHS PRN PRN Reason: Nausea/Vomiting Last Admin: 07/11/17 08:30 Dose: 10 mg Morphine Sulfate (Morphine) 4 mg IV Q4 PRN PRN Reason: Pain, severe (8-10) Last Admin: 07/13/17 08:33 Dose: 4 mg Ondansetron HCl (Zofran Tab) 4 mg PO Q6H PRN PRN Reason: Nausea/Vomiting Last Admin: 07/11/17 19:51 Dose: 4 mg Pantoprazole Sodium (Protonix Ec Tab) 40 mg PO DAILY [facility] Last Admin: 07/13/17 11:14 Dose: 40 mg Saccharomyces Boulardii (Florastor) 250 mg PO BID [facility] Last Admin: 07/13/17 11:13 Dose: 250 mg Sertraline HCl (Zoloft) 50 mg PO DAILY [facility] Last Admin: 07/13/17 11:13 Dose: 50 mg Vitamin B Complex/Vit C/Folic Acid (Nephro-Rosario) 1 tab PO 0800 [facility] Last Admin: 07/13/17 08:37 Dose: 1 tab - Labs Labs: 07/13/17 07:57 07/13/17 07:57 PT 14.4 SECONDS (9.7-12.2) H 07/05/17 23:07 INR 1.3 07/05/17 23:07 APTT 25 SECONDS (21-34) 07/05/17 23:07 - Constitutional Appears: Non-toxic, No Acute Distress - Extremities Exam Extremities Exam: absent: Calf Tenderness Additional comments: LLE: VASC- DP pulse faintly palpable, skin temp runs warm to warm, cap refill < 4 sec , 3+ pitting edema is noted to dorsum of foot DERM- moderate serosanguinous drainage is noted to bandage, there is a full- thickness ulceration noted to dorsal aspect of foot which measures 0.5x4.0x1.5cm (no active drainage, neg purulence, neg malodor with mixed fibrogranular base which tracks proximally 0.5cm , macerated border), there is a 2nd full-thickness ulceration noted to dorsal-lateral aspect of 5th metatarsal amputation site measures 1.0x4.0x1.5cm with mixed fibrogranular base and somewhat macerated border (no active drainage, no purulence, neg malodor, neg tracking), third ulceration noted just plantar to the 2nd wound measures 0.5x1.0x1.0 cm (mixed fibrogranular base, macerated border, neg tracking, minimal serosang drainage), superficial lceration noted to distal lateral leg meausres approx. 3.0x5.0x0.3cm with mixed fibrogranular base, neg PTB, neg fluctuance, gross lichenification of pedal skin NEURO- gross and protective pedal sensation are diminished MSK- tenderness noted to palp of wound sites - Neurological Exam Neurological Exam: Alert, Awake, Oriented x3 - Psychiatric Exam Psychiatric exam: Normal Affect, Normal Mood Assessment and Plan - Assessment and Plan (Free Text) Assessment: 36 yo female pt POD #1 I&D L foot 2/2 diabetic foot infection Plan: Pt S&E at bedside Plan discussed with Dr. Figueroa (covering for Dr. Coy while out of [facility]) Chart reviewed: wbc trending down 13.2 today (down from 14.6) afeb (tmax this AM 99.5) Wounds flushed with sterile saline and redressed with betadine soaked gauze, ABD , kerlix c/w IV abx per ID, s/p replacement PICC today f/u intra-op wound cultures f/u ID recs will follow
[2017-07-13] MEDS: Cefepime IV 1 gm in Dextrose 1 GM/50 ML BAG IVPB SCH (12:11)
--- NOTE | 2017-07-13 12:51 | US ---
PROCEDURE: Date of procedure: 07/13/2017 Procedure: 1. Placement of a right arm PICC with ultrasound and fluoroscopic guidance, CPT 73196 2. PICC tip confirmation with spot radiograph and is in the superior vena cava Medications: 3cc 1 percent lidocaine Total Fluoro time: 52.6 seconds Radiation: 3.15 MGy EBL: 10 cc HISTORY: Infection requiring long-term IV antibiotics TECHNIQUE: Following informed consent and procedure time-out, the patient was placed supine on the interventional table and the right arm prepped and draped in the usual sterile fashion. Ultrasound showed a patent and compressible right basilic vein. After the skin was anesthetized with lidocaine, the basilic vein was accessed with micro micropuncture technique using ultrasound guidance. A guidewire was then advanced under fluoroscopic guidance into the superior vena cava. An image documenting ultrasound guidance for vascular access was permanently saved. The length of the dual-lumen 5 K[place]ili PICC was trimmed to 47 centimeters and advanced through a peel-away sheath. The PICC was position with tip of PICC confirm a spot radiograph the superior vena cava. The PICC was secured to the patient's skin. The PICC was flushed. A biopatch and sterile dressing was applied. IMPRESSION: Placement of a dual-lumen 5 Kisw[place]ili PICC trimmed to 47 centimeters via right basilic vein. The tip of the PICC is confirmed with spot radiograph and is in the superior vena cava.
--- NOTE | 2017-07-13 18:41 | CARD ---
APPROVED REPORT EXAM: Two-dimensional and M-mode echocardiogram with Doppler and color Doppler. Other Information Quality : GoodRhythm : Tachycardia INDICATION HIV RISK FACTORS Hypertension Obesity Diabetes 2D DIMENSIONS IVSd1.9 (0.7-1.1cm)LVDd4.8 (3.9-5.9cm) PWd2.1 (0.7-1.1cm)LVDs2.9 (2.5-4.0cm) FS (%) 40.4 %LVEF (%)71.0 (>50%) M-Mode DIMENSIONS RVDd2.57 (2.1-3.2cm)Left Atrium (MM)4.10 (2.5-4.0cm) IVSd1.44 (0.7-1.1cm)Aortic Root3.59 (2.2-3.7cm) LVDd6.11 (4.0-5.6cm)Aortic Cusp Exc.2.45 (1.5-2.0cm) PWd1.41 (0.7-1.1cm)FS (%) 40 % LVDs3.65 (2.0-3.8cm)LVEF (%)70 (>50%) Mitral Valve MV E Zabhujoi54.9cm/sMV A Smfhjept052.2cm/sE/A ratio0.6 TDI E/Lateral E'0.0E/Medial E'0.0 Tricuspid Valve TR Peak [id number]/sTR Peak Gr.[id number] LEFT VENTRICLE The left ventricle is normal size. There is mild to moderate concentric left ventricular hypertrophy. Left ventricle systolic function is normal. The Ejection Fraction is >70%. There is normal LV segmental wall motion. Tissue Doppler imaging reveals abnormal left ventricular diastolic dysfunction. RIGHT VENTRICLE The right ventricle is normal size. There is normal right ventricular wall thickness. The right ventricular systolic function is normal. ATRIA The left atrium size is normal. The right atrium size is normal. The interatrial septum is intact with no evidence for an atrial septal defect. AORTIC VALVE The aortic valve is normal in structure. No aortic regurgitation is present. There is no aortic valvular stenosis. MITRAL VALVE The mitral valve is normal in structure. There is no evidence of mitral valve prolapse. There is no mitral valve stenosis. Mitral regurgitation is mild. TRICUSPID VALVE The tricuspid valve is normal in structure. There is mild tricuspid regurgitation. Right ventricular systolic pressure is estimated at 50-60 mmHg. There is moderate pulmonary hypertension. PULMONIC VALVE The pulmonic valve is not well visualized. There is mild pulmonic valvular regurgitation. GREAT VESSELS The aortic root is normal in size. PERICARDIAL EFFUSION There is no significant pericardial effusion. <Conclusion> Left ventricle systolic function is normal. The Ejection Fraction is >70%. Hypertensive heart disease. Diastolic dysfunction. No aortic regurgitation is present. Mitral regurgitation is mild. There is mild tricuspid regurgitation. There is moderate pulmonary hypertension. There is mild pulmonic valvular regurgitation.
--- NOTE | 2017-07-13 19:30 | CARD ---
APPROVED REPORT EKG Measurement Heart [id number] <Conclusion> Sinus tachycardia Nonspecific ST abnormality Abnormal ECG
[2017-07-13] MEDS: (Lantus) Insulin Glargine, Recombinant SC SCH (21:40)
--- NOTE | 2017-07-14 01:04 | CP.PCM.PN ---
Subjective - Date & Time of Evaluation Date of Evaluation: 07/13/17 Time of Evaluation: 18:10 - Subjective Subjective: Patient seen and evaluated Denies chest pain and dyspnea Stable hemodynamics Objective - Vital Signs/Intake and Output Vital Signs (last 24 hours): Temp Pulse Resp BP Pulse Ox 98.3 F 105 H 18 161/93 H 95 07/13/17 23:10 07/13/17 23:10 07/13/17 23:10 07/13/17 23:10 07/13/17 15:41 Intake and Output: 07/13/17 07/14/17 18:59 06:59 Intake Total 325 1275 Balance 325 1275 - Medications Medications: Current Medications Amlodipine Besylate (Norvasc) 5 mg PO DAILY [facility] Last Admin: 07/13/17 11:12 Dose: 5 mg Calcitriol (Rocaltrol) 0.25 mcg PO TTS [facility] Last Admin: 07/13/17 11:12 Dose: 0.25 mcg Epoetin Anival (Procrit) 10,000 unit SC TTS [facility] Last Admin: 07/13/17 11:10 Dose: 10,000 unit Ferric Sodium Gluconate Complex (Ferrlecit) 125 mg IVPB DAILY [facility] Stop: 07/18/17 10:01 Last Admin: 07/13/17 11:11 Dose: 125 mg Home Med (Patient's Own Medication) 1 tab PO DAILY [facility] Last Admin: 07/13/17 11:13 Dose: 1 tab Cefepime HCl (Maxipime Iv 1 Gm Premix) 1 gm in 50 mls @ 100 mls/hr IVPB Q24H [facility] PRN Reason: Protocol Last Admin: 07/13/17 12:11 Dose: 100 mls/hr Insulin Aspart (Novolog) 16 unit SC BID [facility] Last Admin: 07/13/17 18:00 Dose: Not Given Insulin Glargine (Lantus) 16 unit SC HS [facility] Last Admin: 07/13/17 21:40 Dose: 16 unit Metoclopramide HCl (Reglan) 10 mg IVP ACHS PRN PRN Reason: Nausea/Vomiting Last Admin: 07/11/17 08:30 Dose: 10 mg Morphine Sulfate (Morphine) 4 mg IV Q4 PRN PRN Reason: Pain, severe (8-10) Last Admin: 07/13/17 23:09 Dose: 4 mg Ondansetron HCl (Zofran Tab) 4 mg PO Q6H PRN PRN Reason: Nausea/Vomiting Last Admin: 07/11/17 19:51 Dose: 4 mg Pantoprazole Sodium (Protonix Ec Tab) 40 mg PO DAILY [facility] Last Admin: 07/13/17 11:14 Dose: 40 mg Saccharomyces Boulardii (Florastor) 250 mg PO BID [facility] Last Admin: 07/13/17 19:00 Dose: 250 mg Sertraline HCl (Zoloft) 50 mg PO DAILY [facility] Last Admin: 07/13/17 11:13 Dose: 50 mg Vitamin B Complex/Vit C/Folic Acid (Nephro-Rosario) 1 tab PO 0800 [facility] Last Admin: 07/13/17 08:37 Dose: 1 tab - Labs Labs: 07/13/17 07:57 07/13/17 07:57 PT 14.4 SECONDS (9.7-12.2) H 07/05/17 23:07 INR 1.3 07/05/17 23:07 APTT 25 SECONDS (21-34) 07/05/17 23:07
--- NOTE | 2017-07-14 02:54 | PN ---
DATE: 07/13/2017 FOLLOWUP RENAL CONSULTATION LOCATION: The patient is located in room 568, bed B. HISTORY OF PRESENT ILLNESS: Mrs. Johnson is a 36 years old young, transgender female with a past medical history significant for HIV positive, hypertension, diabetes, Charcot's foot, nephrotic range proteinuria, chronic kidney disease, anemia, secondary hyperparathyroidism who was admitted with a fever and pain and swelling of the left foot, noncompliance with medications and IV antibiotics, signed out AMA during her last admission, refused IV antibiotics and PICC line. The patient was admitted with fever, nausea, vomiting. The patient underwent debridement of the left foot yesterday. The patient is very upset this morning, does not want to be examined, does not want to talk to anybody this morning, asks to leave the room. PHYSICAL EXAMINATION: VITAL SIGNS: This morning, blood pressure 130/76, pulse 110, respirations 20, temperature 99.5, saturation 95%. Height 6 feet 3 inches, weight is 280 pounds. GENERAL: Refused to be examined. The patient has a dressing to the left foot. The patient is alert, awake, and oriented x3. NEUROLOGIC: Nonfocal neuro examination. Grossly refusing to be examined at this time. MEDICATIONS: Include Ferrlecit 125 mg daily, Florastor 250 mg p.o. b.i.d., Lantus 16 units subcu at bedtime, cefepime 1 gm daily, morphine sulfate 4 mg IV every 4 hours p.r.n., Nephro-Rosario 1 tablet daily, amlodipine 5 mg daily, Odefsey 1 tablet p.o. daily, Procrit 10,000 units three times a week, Protonix 40 mg p.o. daily, Reglan 10 mg IV a.c. and at bedtime, Rocaltrol 0.25 mcg p.o. three times a week, Zoloft 50 mg p.o. daily, Zofran 4 mg p.o. every 6 hours. LABORATORY DATA: Include as follows, as of 07/13/2017, WBC 13.2, hemoglobin 6.6, hematocrit is 19.8, platelets 531. Sodium 138, potassium 5.2, chloride 108, CO2 of 21, BUN 44, creatinine 4.7, glucose 179, calcium 8.5. Total bili 0.4, AST 28, ALT 12, alkaline phosphatase 208. Total protein 7.8, albumin is 2.6. IMPRESSION: In summary, Mrs. Johnson is a 36 years old young transgender female with human immunodeficiency virus positive, hypertension, diabetes, chronic kidney disease, anemia, second hyperparathyroidism, osteomyelitis of the foot, fever on and off, status post debridement of the left foot. 1. Acute renal failure, on chronic kidney disease stage III versus progression of chronic kidney disease. 2. Nephrotic range proteinuria, rule out diabetic nephropathy versus human immunodeficiency virus associated nephropathy versus chronic glomerulonephritis such as focal segmental glomerulonephritis. 3. Anemia. H and H are very low. Consider type and cross and transfuse as needed. Consider GI loss or bleeding. We will consider GI evaluation and followup, and also consider hematology evaluation. 4. Secondary hyperparathyroidism. Continue calcitriol three times a week. 5. Hypertension. 6. Osteomyelitis of the foot. Continue IV antibiotics as per ID recommendations. Overall prognosis is guarded. The patient is very noncompliant. The patient is screaming, and she is claiming she is going to [facility] and requesting to get out of the room this morning. Consider to follow up with Psych for further evaluation. Thank you for allowing me to participate in your patient's care. Weston Brambila MD
[2017-07-14] MEDS: Morphine 4 MG/ML VIAL IV PRN ×5 (04:24→21:07)
[2017-07-14 07:57] LABS: MEAN CORPUSCULAR HGB CONC 34.1 g/dL (33.0-37.0); RED CELL DISTRIBUTION WIDTH 15.6 % (11.5-14.5)
[2017-07-14 08:14] LABS: BASO # 0.1 K/uL (0.0-0.2); BASO % 0.8 % (0.0-2.0); EOS % 5.5 % (0.0-4.0); HEMOGLOBIN 8.4 g/dL (11.0-16.0); LYMPH # 3.1 K/uL (1.0-4.3); LYMPH % 16.8 % (20.0-40.0); MEAN CELL VOLUME 85.9 fL (81.0-99.0); MEAN CORPUSCULAR HEMOGLOBIN 29.3 pg (27.0-31.0); MEAN PLATELET VOLUME 7.6 fL (7.2-11.7); MONO # 1.9 K/uL (0.0-0.8); MONO % 10.2 % (0.0-10.0); NEUT # 12.4 K/uL (1.8-7.0); NEUT % 66.7 % (50.0-75.0); NRBC % 0.6 % (0.0-2.0); RBC 2.85 Mil/uL (3.80-5.20); WHITE BLOOD COUNT 18.6 K/uL (4.8-10.8)
[2017-07-14 08:19] LABS: ALB/GLOB RATIO 0.5 (1.0-2.1); ALBUMIN 2.7 g/dL (3.5-5.0); CALCIUM 8.9 mg/dl (8.6-10.4)
[2017-07-14] MEDS: Multivitamin Vitamin B Complex (Nephro-Vite) Tab PO SCH (08:26)
--- NOTE | 2017-07-14 09:30 | CP.PCM.PN ---
Subjective - Date & Time of Evaluation Date of Evaluation: 07/14/17 Time of Evaluation: 09:26 - Subjective Subjective: Patient seen . full note will be dictated..clinically improving.. Objective - Vital Signs/Intake and Output Vital Signs (last 24 hours): Temp Pulse Resp BP Pulse Ox 98.3 F 120 H 18 152/101 H 96 07/14/17 07:25 07/14/17 07:25 07/14/17 07:25 07/14/17 07:25 07/14/17 07:25 Intake and Output: 07/14/17 07/14/17 06:59 18:59 Intake Total 1375 Output Total 2200 750 Balance -825 -750 - Medications Medications: Current Medications Amlodipine Besylate (Norvasc) 5 mg PO DAILY [facility] Last Admin: 07/13/17 11:12 Dose: 5 mg Calcitriol (Rocaltrol) 0.25 mcg PO TTS [facility] Last Admin: 07/13/17 11:12 Dose: 0.25 mcg Epoetin Anival (Procrit) 10,000 unit SC TTS [facility] Last Admin: 07/13/17 11:10 Dose: 10,000 unit Ferric Sodium Gluconate Complex (Ferrlecit) 125 mg IVPB DAILY [facility] Stop: 07/18/17 10:01 Last Admin: 07/13/17 11:11 Dose: 125 mg Home Med (Patient's Own Medication) 1 tab PO DAILY [facility] Last Admin: 07/13/17 11:13 Dose: 1 tab Cefepime HCl (Maxipime Iv 1 Gm Premix) 1 gm in 50 mls @ 100 mls/hr IVPB Q24H [facility] PRN Reason: Protocol Last Admin: 07/13/17 12:11 Dose: 100 mls/hr Insulin Aspart (Novolog) 16 unit SC BID [facility] Last Admin: 07/13/17 18:00 Dose: Not Given Insulin Glargine (Lantus) 16 unit SC HS [facility] Last Admin: 07/13/17 21:40 Dose: 16 unit Metoclopramide HCl (Reglan) 10 mg IVP ACHS PRN PRN Reason: Nausea/Vomiting Last Admin: 07/11/17 08:30 Dose: 10 mg Morphine Sulfate (Morphine) 4 mg IV Q4 PRN PRN Reason: Pain, severe (8-10) Last Admin: 07/14/17 08:25 Dose: 4 mg Ondansetron HCl (Zofran Tab) 4 mg PO Q6H PRN PRN Reason: Nausea/Vomiting Last Admin: 07/11/17 19:51 Dose: 4 mg Pantoprazole Sodium (Protonix Ec Tab) 40 mg PO DAILY [facility] Last Admin: 07/13/17 11:14 Dose: 40 mg Saccharomyces Boulardii (Florastor) 250 mg PO BID [facility] Last Admin: 07/13/17 19:00 Dose: 250 mg Sertraline HCl (Zoloft) 50 mg PO DAILY [facility] Last Admin: 07/13/17 11:13 Dose: 50 mg Vitamin B Complex/Vit C/Folic Acid (Nephro-Rosario) 1 tab PO 0800 [facility] Last Admin: 07/13/17 08:37 Dose: 1 tab - Labs Labs: 07/14/17 07:25 07/14/17 07:25 PT 14.4 SECONDS (9.7-12.2) H 07/05/17 23:07 INR 1.3 07/05/17 23:07 APTT 25 SECONDS (21-34) 07/05/17 23:07 Assessment and Plan - Assessment and Plan (Free Text) Assessment: ANEMIA ...MULTIFACTORIAL ANEMIA OF CHRONIC DISEASE ANEMIA 2* CHRONIC KIDNEY DISEASE SUGGEST: AGREE WITH IRON AND FOLIC ACID SUPPLEMENTS SUGGEST PROCRIT 01017 UNITS MON, WED AND WEDNESDAY UNTILL HEMOGLOBIN IS AROUND 11 ..
[2017-07-14] MEDS ORDERED: Morphine 4 MG/ML VIAL IVP STA (10:00)
[2017-07-14] MEDS: Ferric Sodium Gluconat Complex 62.5 mg/5 ml Vial IVPB SCH (10:17)
[2017-07-14] MEDS: Saccharomyces Boulardi 250 mg Cap PO SCH ×2 (10:17→17:06)
[2017-07-14] MEDS: Pantoprazole 40 mg EC Tab PO SCH (10:18)
[2017-07-14] MEDS: ODEFSEY PO SCH (10:19)
[2017-07-14] MEDS: (Novolog) Insulin Aspart, Recombinant 100 u/ml 10 ml vial SC SCH ×2 (10:20→17:14)
--- NOTE | 2017-07-14 10:36 | CP.PCM.PN ---
Subjective - Date & Time of Evaluation Date of Evaluation: 07/14/17 Time of Evaluation: 11:45 - Subjective Subjective: Podiatry Progress Note- Dr. Figueroa Pt seen at bedside today 2 days s/p I&D in OR for L diabetic foot infection with Dr. Figueroa. Pt seen at bedside. Pt reports 7/10 pain to the left leg today, relieved with morphine. Denies any acute overnight events. Denies f/n/v/c /sob/cp at this time. No further complaints. Objective - Vital Signs/Intake and Output Vital Signs (last 24 hours): Temp Pulse Resp BP Pulse Ox 98.3 F 120 H 18 152/101 H 96 07/14/17 07:25 07/14/17 07:25 07/14/17 07:25 07/14/17 07:25 07/14/17 07:25 Intake and Output: 07/14/17 07/14/17 06:59 18:59 Intake Total 1375 Output Total 2200 750 Balance -825 -750 - Medications Medications: Current Medications Amlodipine Besylate (Norvasc) 5 mg PO DAILY [facility] Last Admin: 07/14/17 10:17 Dose: 5 mg Calcitriol (Rocaltrol) 0.25 mcg PO TTS [facility] Last Admin: 07/13/17 11:12 Dose: 0.25 mcg Epoetin Anival (Procrit) 10,000 unit SC TTS [facility] Last Admin: 07/13/17 11:10 Dose: 10,000 unit Ferric Sodium Gluconate Complex (Ferrlecit) 125 mg IVPB DAILY [facility] Stop: 07/18/17 10:01 Last Admin: 07/14/17 10:17 Dose: 125 mg Home Med (Patient's Own Medication) 1 tab PO DAILY [facility] Last Admin: 07/14/17 10:19 Dose: 1 tab Cefepime HCl (Maxipime Iv 1 Gm Premix) 1 gm in 50 mls @ 100 mls/hr IVPB Q24H [facility] PRN Reason: Protocol Last Admin: 07/13/17 12:11 Dose: 100 mls/hr Insulin Aspart (Novolog) 16 unit SC BID [facility] Last Admin: 07/14/17 10:20 Dose: 16 unit Insulin Glargine (Lantus) 16 unit SC HS [facility] Last Admin: 07/13/17 21:40 Dose: 16 unit Metoclopramide HCl (Reglan) 10 mg IVP ACHS PRN PRN Reason: Nausea/Vomiting Last Admin: 07/11/17 08:30 Dose: 10 mg Morphine Sulfate (Morphine) 4 mg IV Q4 PRN PRN Reason: Pain, severe (8-10) Last Admin: 07/14/17 08:25 Dose: 4 mg Ondansetron HCl (Zofran Tab) 4 mg PO Q6H PRN PRN Reason: Nausea/Vomiting Last Admin: 07/11/17 19:51 Dose: 4 mg Pantoprazole Sodium (Protonix Ec Tab) 40 mg PO DAILY [facility] Last Admin: 07/14/17 10:18 Dose: 40 mg Saccharomyces Boulardii (Florastor) 250 mg PO BID [facility] Last Admin: 07/14/17 10:17 Dose: 250 mg Sertraline HCl (Zoloft) 50 mg PO DAILY [facility] Last Admin: 07/14/17 10:18 Dose: 50 mg Vitamin B Complex/Vit C/Folic Acid (Nephro-Rosario) 1 tab PO 0800 [facility] Last Admin: 07/14/17 08:26 Dose: 1 tab - Labs Labs: 07/14/17 07:25 07/14/17 07:25 PT 14.4 SECONDS (9.7-12.2) H 07/05/17 23:07 INR 1.3 07/05/17 23:07 APTT 25 SECONDS (21-34) 07/05/17 23:07 - Constitutional Appears: Non-toxic, No Acute Distress - Extremities Exam Extremities Exam: absent: Calf Tenderness Additional comments: LLE: moderate sero-sanguinous drainage noted to outer bandage today VASC- DP pulse faintly palpable, skin temp runs warm to warm, cap refill < 4 sec , 3+ pitting edema is noted to dorsum of foot DERM- there is a full-thickness ulceration noted to dorsal aspect of foot which measures 0.5x4.0x1.5cm (no active drainage, neg purulence, neg malodor with mixed fibrogranular base which tracks proximally 0.5cm , macerated border) , there is a 2nd full-thickness ulceration noted to dorsal-lateral aspect of 5th metatarsal amputation site measures 1.0x4.0x1.5cm with mixed fibrogranular base and somewhat macerated border (no active drainage, no purulence, neg malodor, neg tracking), third ulceration noted just plantar to the 2nd wound measures 0.5x1.0x1.0 cm (mixed fibrogranular base, macerated border, neg tracking, minimal serosang drainage), superficial lceration noted to distal lateral leg meausres approx. 3.0x5.0x0.3cm with mixed fibrogranular base, neg PTB, neg fluctuance, gross lichenification of pedal skin NEURO- gross and protective pedal sensation are diminished MSK- tenderness noted to palp of wound sites - Neurological Exam Neurological Exam: Alert, Awake, Oriented x3 - Psychiatric Exam Psychiatric exam: Normal Affect, Normal Mood Assessment and Plan - Assessment and Plan (Free Text) Assessment: 36 yo female pt POD #2 I&D L foot 2/2 diabetic foot infection Plan: Pt S&E at bedside Discussed with attending Dr. Figueroa (covering Dr. Coy) Wounds flushed with sterile saline and redressed with betadine soaked gauze, extra ABD's, kerlix c/w IV abx per ID (cefepime) will require outpatient PICC line antibiotics Pt refused any amputations at this time. will follow
[2017-07-14] MEDS: Cefepime IV 1 gm in Dextrose 1 GM/50 ML BAG IVPB SCH (11:49)
--- NOTE | 2017-07-14 11:56 | CP.PCM.PN ---
Subjective - Date & Time of Evaluation Date of Evaluation: 07/14/17 Time of Evaluation: 11:53 - Subjective Subjective: CONDITIION IMPROVING. AFEBRILE. GENERAL DEBILITY PRESENT. ANEMIA MULTI FACTORIAL. HB 8.4. PICC LINE IN PLACE. Objective - Vital Signs/Intake and Output Vital Signs (last 24 hours): Temp Pulse Resp BP Pulse Ox 98.3 F 120 H 18 124/62 96 07/14/17 07:25 07/14/17 07:25 07/14/17 07:25 07/14/17 10:42 07/14/17 07:25 Intake and Output: 07/14/17 07/14/17 06:59 18:59 Intake Total 1375 Output Total 2200 750 Balance -825 -750 - Medications Medications: Current Medications Amlodipine Besylate (Norvasc) 5 mg PO DAILY [facility] Last Admin: 07/14/17 10:17 Dose: 5 mg Calcitriol (Rocaltrol) 0.25 mcg PO TTS [facility] Last Admin: 07/13/17 11:12 Dose: 0.25 mcg Epoetin Anival (Procrit) 10,000 unit SC TTS [facility] Last Admin: 07/13/17 11:10 Dose: 10,000 unit Ferric Sodium Gluconate Complex (Ferrlecit) 125 mg IVPB DAILY [facility] Stop: 07/18/17 10:01 Last Admin: 07/14/17 10:17 Dose: 125 mg Home Med (Patient's Own Medication) 1 tab PO DAILY [facility] Last Admin: 07/14/17 10:19 Dose: 1 tab Cefepime HCl (Maxipime Iv 1 Gm Premix) 1 gm in 50 mls @ 100 mls/hr IVPB Q24H [facility] PRN Reason: Protocol Last Admin: 07/14/17 11:49 Dose: 100 mls/hr Insulin Aspart (Novolog) 16 unit SC BID [facility] Last Admin: 07/14/17 10:20 Dose: 16 unit Insulin Glargine (Lantus) 16 unit SC HS [facility] Last Admin: 07/13/17 21:40 Dose: 16 unit Metoclopramide HCl (Reglan) 10 mg IVP ACHS PRN PRN Reason: Nausea/Vomiting Last Admin: 07/11/17 08:30 Dose: 10 mg Morphine Sulfate (Morphine) 4 mg IV Q4 PRN PRN Reason: Pain, severe (8-10) Last Admin: 07/14/17 08:25 Dose: 4 mg Ondansetron HCl (Zofran Tab) 4 mg PO Q6H PRN PRN Reason: Nausea/Vomiting Last Admin: 07/11/17 19:51 Dose: 4 mg Pantoprazole Sodium (Protonix Ec Tab) 40 mg PO DAILY [facility] Last Admin: 07/14/17 10:18 Dose: 40 mg Saccharomyces Boulardii (Florastor) 250 mg PO BID [facility] Last Admin: 07/14/17 10:17 Dose: 250 mg Sertraline HCl (Zoloft) 50 mg PO DAILY [facility] Last Admin: 07/14/17 10:18 Dose: 50 mg Vitamin B Complex/Vit C/Folic Acid (Nephro-Rosario) 1 tab PO 0800 [facility] Last Admin: 07/14/17 08:26 Dose: 1 tab - Labs Labs: 07/14/17 07:25 07/14/17 07:25 PT 14.4 SECONDS (9.7-12.2) H 07/05/17 23:07 INR 1.3 07/05/17 23:07 APTT 25 SECONDS (21-34) 07/05/17 23:07 - Constitutional Appears: No Acute Distress, Chronically Ill - Eye Exam Eye Exam: EOMI, Normal appearance, PERRL Pupil Exam: NORMAL ACCOMODATION, PERRL - ENT Exam ENT Exam: Mucous Membranes Moist, Normal Exam - Neck Exam Neck Exam: Full ROM, Normal Inspection. absent: Lymphadenopathy - Respiratory Exam Respiratory Exam: Clear to Ausculation Bilateral, NORMAL BREATHING PATTERN - Cardiovascular Exam Cardiovascular Exam: REGULAR RHYTHM, +S1, +S2. absent: Murmur - GI/Abdominal Exam GI & Abdominal Exam: Soft, Normal Bowel Sounds. absent: Tenderness - Extremities Exam Additional comments: PER PODIETRY. - Neurological Exam Neurological Exam: Alert, Awake, CN II-XII Intact, Normal Gait, Oriented x3 - Psychiatric Exam Psychiatric exam: Normal Affect, Normal Mood Assessment and Plan - Assessment and Plan (Free Text) Assessment: O/M LT FOOT. CRF. Plan: CT PRESENT TREATMENT. FOR OUT PT IV ABTS.
--- NOTE | 2017-07-14 15:56 | CP.PCM.PN ---
Subjective - Date & Time of Evaluation Date of Evaluation: 07/14/17 Time of Evaluation: 15:56 - Subjective Subjective: DISCUSSED D/C PLANNING AND ABX WITH DR. MCKEON. CEFEPIME 1 GM IV DAILY AND VANCO 500 MG Q72 HOURS X 6-[address] MCKEON. MUST GET NEPHRO CLEARANCE FOR VANCO X 6-8 WEEKS FIRST; LEFT MESSAGE FOR DR. RIVERA BUT NO RESPONSE YET. + PICC IN PLACE NOW. PT C/O NOT BEING ABLE TO WALK; HAS BEEN IN BED MOST DAYS OF THIS ADMISSION. PHYSICAL THERAPY EVAL AND RECOMMENDATIONS REQUESTED, STILL PENDING EVAL. PT HAS A CANE AT HOME BUT MAY NEED WALKER FOR ASSISTANCE SHORT-TERM. PT AWARE OF THIS PLAN; STILL REFUSING REHAB FOR WOUND CARE AND IV ABX. PT ONLY AGREES FOR HOME WITH OUTPATIENT INFUSION CENTER FOR ABX AND WOUND CARE CENTER AT [place]. POOR SUPPORT SYSTEM. DISCUSSED AT LENGTH AND RECOMMENDED ORGANIZATIONS LIKE [facility]; HOWEVER, PT STATES SHE USED TO WORK WITH THEM AND LEFT ON "BAD TERMS." WILL F/U WITH PT TOMORROW. LABS ORDERED FOR THE AM. PENDING RANDOM VANCO LEVEL (ORDERED AND DONE, NO RESULT SEEN). PENDING VANCO RESULT, WILL ORDER DOSE TOMORROW (LAST DOSE GIVEN ON 07/12/17). NO FURTHER ORDERS. Objective - Vital Signs/Intake and Output Vital Signs (last 24 hours): Temp Pulse Resp BP Pulse Ox 98.3 F 107 H 18 153/89 H 96 07/14/17 07:25 07/14/17 10:16 07/14/17 07:25 07/14/17 10:16 07/14/17 07:25 Intake and Output: 07/14/17 07/14/17 06:59 18:59 Intake Total 1375 Output Total 2200 750 Balance -825 -750 - Medications Medications: Current Medications Amlodipine Besylate (Norvasc) 5 mg PO DAILY [facility] Last Admin: 07/14/17 10:17 Dose: 5 mg Calcitriol (Rocaltrol) 0.25 mcg PO TTS [facility] Last Admin: 07/13/17 11:12 Dose: 0.25 mcg Epoetin Anival (Procrit) 10,000 unit SC TTS [facility] Last Admin: 07/13/17 11:10 Dose: 10,000 unit Ferric Sodium Gluconate Complex (Ferrlecit) 125 mg IVPB DAILY [facility] Stop: 07/18/17 10:01 Last Admin: 07/14/17 10:17 Dose: 125 mg Home Med (Patient's Own Medication) 1 tab PO DAILY [facility] Last Admin: 07/14/17 10:19 Dose: 1 tab Cefepime HCl (Maxipime Iv 1 Gm Premix) 1 gm in 50 mls @ 100 mls/hr IVPB Q24H [facility] PRN Reason: Protocol Last Admin: 07/14/17 11:49 Dose: 100 mls/hr Insulin Aspart (Novolog) 16 unit SC BID [facility] Last Admin: 07/14/17 10:20 Dose: 16 unit Insulin Glargine (Lantus) 16 unit SC HS [facility] Last Admin: 07/13/17 21:40 Dose: 16 unit Metoclopramide HCl (Reglan) 10 mg IVP ACHS PRN PRN Reason: Nausea/Vomiting Last Admin: 07/11/17 08:30 Dose: 10 mg Morphine Sulfate (Morphine) 4 mg IV Q4 PRN PRN Reason: Pain, severe (8-10) Last Admin: 07/14/17 12:50 Dose: 4 mg Ondansetron HCl (Zofran Tab) 4 mg PO Q6H PRN PRN Reason: Nausea/Vomiting Last Admin: 07/11/17 19:51 Dose: 4 mg Pantoprazole Sodium (Protonix Ec Tab) 40 mg PO DAILY [facility] Last Admin: 07/14/17 10:18 Dose: 40 mg Saccharomyces Boulardii (Florastor) 250 mg PO BID [facility] Last Admin: 07/14/17 10:17 Dose: 250 mg Sertraline HCl (Zoloft) 50 mg PO DAILY [facility] Last Admin: 07/14/17 10:18 Dose: 50 mg Vitamin B Complex/Vit C/Folic Acid (Nephro-Rosario) 1 tab PO 0800 [facility] Last Admin: 07/14/17 08:26 Dose: 1 tab - Labs Labs: 07/14/17 07:25 07/14/17 07:25 PT 14.4 SECONDS (9.7-12.2) H 07/05/17 23:07 INR 1.3 07/05/17 23:07 APTT 25 SECONDS (21-34) 07/05/17 23:07
--- NOTE | 2017-07-14 17:43 | CP.PCM.PN ---
Subjective - Date & Time of Evaluation Date of Evaluation: 07/14/17 Time of Evaluation: 08:00 - Subjective Subjective: c/o pain awake alert NAD Objective - Vital Signs/Intake and Output Vital Signs (last 24 hours): Temp Pulse Resp BP Pulse Ox 99.2 F 106 H 21 156/99 H 95 07/14/17 16:07 07/14/17 16:34 07/14/17 16:07 07/14/17 16:34 07/14/17 16:07 Intake and Output: 07/14/17 07/14/17 06:59 18:59 Intake Total 1375 650 Output Total 2200 750 Balance -825 -100 - Medications Medications: Current Medications Amlodipine Besylate (Norvasc) 5 mg PO DAILY [facility] Last Admin: 07/14/17 10:17 Dose: 5 mg Calcitriol (Rocaltrol) 0.25 mcg PO TTS [facility] Last Admin: 07/13/17 11:12 Dose: 0.25 mcg Epoetin Anival (Procrit) 10,000 unit SC TTS [facility] Last Admin: 07/13/17 11:10 Dose: 10,000 unit Ferric Sodium Gluconate Complex (Ferrlecit) 125 mg IVPB DAILY [facility] Stop: 07/18/17 10:01 Last Admin: 07/14/17 10:17 Dose: 125 mg Home Med (Patient's Own Medication) 1 tab PO DAILY [facility] Last Admin: 07/14/17 10:19 Dose: 1 tab Cefepime HCl (Maxipime Iv 1 Gm Premix) 1 gm in 50 mls @ 100 mls/hr IVPB Q24H [facility] PRN Reason: Protocol Last Admin: 07/14/17 11:49 Dose: 100 mls/hr Insulin Aspart (Novolog) 16 unit SC BID [facility] Last Admin: 07/14/17 17:14 Dose: Not Given Insulin Glargine (Lantus) 16 unit SC HS [facility] Last Admin: 07/13/17 21:40 Dose: 16 unit Metoclopramide HCl (Reglan) 10 mg IVP ACHS PRN PRN Reason: Nausea/Vomiting Last Admin: 07/11/17 08:30 Dose: 10 mg Morphine Sulfate (Morphine) 4 mg IV Q4 PRN PRN Reason: Pain, severe (8-10) Last Admin: 07/14/17 17:06 Dose: 4 mg Ondansetron HCl (Zofran Tab) 4 mg PO Q6H PRN PRN Reason: Nausea/Vomiting Last Admin: 07/11/17 19:51 Dose: 4 mg Pantoprazole Sodium (Protonix Ec Tab) 40 mg PO DAILY [facility] Last Admin: 07/14/17 10:18 Dose: 40 mg Saccharomyces Boulardii (Florastor) 250 mg PO BID [facility] Last Admin: 07/14/17 17:06 Dose: 250 mg Sertraline HCl (Zoloft) 50 mg PO DAILY [facility] Last Admin: 07/14/17 10:18 Dose: 50 mg Vitamin B Complex/Vit C/Folic Acid (Nephro-Rosario) 1 tab PO 0800 [facility] Last Admin: 07/14/17 08:26 Dose: 1 tab - Labs Labs: 07/14/17 07:25 07/14/17 07:25 PT 14.4 SECONDS (9.7-12.2) H 07/05/17 23:07 INR 1.3 07/05/17 23:07 APTT 25 SECONDS (21-34) 07/05/17 23:07 - Constitutional Appears: Non-toxic, Chronically Ill - Head Exam Head Exam: NORMOCEPHALIC - Eye Exam Eye Exam: PERRL - ENT Exam ENT Exam: Mucous Membranes Dry - Neck Exam Neck Exam: absent: Lymphadenopathy - Respiratory Exam Respiratory Exam: Decreased Breath Sounds - Cardiovascular Exam Cardiovascular Exam: REGULAR RHYTHM - GI/Abdominal Exam GI & Abdominal Exam: Distended, Soft - Rectal Exam Rectal Exam: Deferred - Exam Exam: NORMAL INSPECTION - Extremities Exam Extremities Exam: Pedal Edema, Tenderness. absent: Calf Tenderness Additional comments: left foot and leg are massively swollen - Back Exam Back Exam: absent: CVA tenderness (L), CVA tenderness (R) - Neurological Exam Neurological Exam: Alert, Awake, Oriented x3 - Psychiatric Exam Psychiatric exam: Depressed Assessment and Plan (1) Gangrene associated with type 2 diabetes mellitus Status: Acute (2) Gangrene associated with type 2 diabetes mellitus Status: Acute (3) Diabetes mellitus type 1, uncontrolled, insulin dependent Status: Acute (4) Diabetic foot infection Status: Acute (5) Leg edema, left Status: Acute (6) HIV (human immunodeficiency virus infection) Status: Chronic (7) Obesities, morbid Status: Chronic (8) GAEL (acute kidney injury) Status: Acute (9) Abscess and cellulitis Status: Acute - Assessment and Plan (Free Text) Assessment: consider venous doppler r/o DVT cont iv rx 6-8 weeks poor prognosis refuseds amputation at this time
--- NOTE | 2017-07-14 18:54 | CP.PCM.PN ---
Subjective - Date & Time of Evaluation Date of Evaluation: 07/14/17 Time of Evaluation: 18:54 - Subjective Subjective: pt is seen and examined, follow up consult is dictated #[id number] Objective - Vital Signs/Intake and Output Vital Signs (last 24 hours): Temp Pulse Resp BP Pulse Ox 99.2 F 106 H 21 156/99 H 95 07/14/17 16:07 07/14/17 16:34 07/14/17 16:07 07/14/17 16:34 07/14/17 16:07 Intake and Output: 07/14/17 07/14/17 06:59 18:59 Intake Total 1375 650 Output Total 2200 750 Balance -825 -100 - Medications Medications: Current Medications Amlodipine Besylate (Norvasc) 5 mg PO DAILY [facility] Last Admin: 07/14/17 10:17 Dose: 5 mg Calcitriol (Rocaltrol) 0.25 mcg PO TTS [facility] Last Admin: 07/13/17 11:12 Dose: 0.25 mcg Epoetin Anival (Procrit) 10,000 unit SC TTS [facility] Last Admin: 07/13/17 11:10 Dose: 10,000 unit Ferric Sodium Gluconate Complex (Ferrlecit) 125 mg IVPB DAILY [facility] Stop: 07/18/17 10:01 Last Admin: 07/14/17 10:17 Dose: 125 mg Home Med (Patient's Own Medication) 1 tab PO DAILY [facility] Last Admin: 07/14/17 10:19 Dose: 1 tab Cefepime HCl (Maxipime Iv 1 Gm Premix) 1 gm in 50 mls @ 100 mls/hr IVPB Q24H [facility] PRN Reason: Protocol Last Admin: 07/14/17 11:49 Dose: 100 mls/hr Vancomycin/Sodium Chloride (Vancomycin 1 Gm/Ns 200 Ml) 1 gm in 200 mls @ 133.333 mls/hr IVPB Q48H [facility] PRN Reason: Protocol Stop: 07/19/17 19:01 Insulin Aspart (Novolog) 16 unit SC BID [facility] Last Admin: 07/14/17 17:14 Dose: Not Given Insulin Glargine (Lantus) 16 unit SC HS [facility] Last Admin: 07/13/17 21:40 Dose: 16 unit Metoclopramide HCl (Reglan) 10 mg IVP ACHS PRN PRN Reason: Nausea/Vomiting Last Admin: 07/11/17 08:30 Dose: 10 mg Morphine Sulfate (Morphine) 4 mg IV Q4 PRN PRN Reason: Pain, severe (8-10) Last Admin: 07/14/17 17:06 Dose: 4 mg Ondansetron HCl (Zofran Tab) 4 mg PO Q6H PRN PRN Reason: Nausea/Vomiting Last Admin: 07/11/17 19:51 Dose: 4 mg Pantoprazole Sodium (Protonix Ec Tab) 40 mg PO DAILY [facility] Last Admin: 07/14/17 10:18 Dose: 40 mg Saccharomyces Boulardii (Florastor) 250 mg PO BID [facility] Last Admin: 07/14/17 17:06 Dose: 250 mg Sertraline HCl (Zoloft) 50 mg PO DAILY [facility] Last Admin: 07/14/17 10:18 Dose: 50 mg Vitamin B Complex/Vit C/Folic Acid (Nephro-Rosario) 1 tab PO 0800 [facility] Last Admin: 07/14/17 08:26 Dose: 1 tab - Labs Labs: 07/14/17 07:25 07/14/17 07:25 PT 14.4 SECONDS (9.7-12.2) H 07/05/17 23:07 INR 1.3 07/05/17 23:07 APTT 25 SECONDS (21-34) 07/05/17 23:07
[2017-07-14] MEDS: Vancomycin 1 gm/NS 200 ml 1 GM/200 ML BAG IVPB SCH (19:07)
[2017-07-14] MEDS: (Lantus) Insulin Glargine, Recombinant SC SCH (21:14)
[2017-07-14 21:20] LABS: ALPHA-1-GLOBULIN (PEP) 0.7 g/dL (0.2-0.3)
[2017-07-15] MEDS: Morphine 4 MG/ML VIAL IV PRN ×6 (01:03→21:50)
--- NOTE | 2017-07-15 02:23 | PN ---
DATE: 07/14/2017 FOLLOWUP RENAL CONSULTATION LOCATION: The patient is located in room 568, bed B. REQUESTED BY: Art Nathan MD REASON FOR FOLLOWUP: Acute renal failure, chronic kidney disease, for further evaluation. HISTORY OF PRESENT ILLNESS: Mrs. Johnson is 36 years old young transgender female with a past medical history significant for longstanding hypertension, diabetes, HIV positive, Charcot's foot left side, osteomyelitis, nephrotic range proteinuria, chronic kidney disease stage III who was admitted with initially fever, cough, nausea, vomiting, and subsequently, the patient was found to have worsening renal function and being treated for possible osteomyelitis of the left foot, status post wound debridement 2 days ago. The patient was found to have a low H and H yesterday, and does have 2 units of packed RBC, now H and H is stable. The patient is not in acute distress today. The patient is more cooperative, not in distress, still complains of severe pain in the left leg. PHYSICAL EXAMINATION: VITAL SIGNS: As follows, blood pressure 156/99, pulse 106, respiratory rate 21, temperature 99.2. Height 6 feet 3 inches and weight is 280 pounds. GENERAL: Mrs. Johnson is a 36 years old young transgender female, moderately built, moderately nourished, not in distress. HEENT: Pupils normal and reactive to light and accommodation. Conjunctivae pink. Sclerae anicteric. Tongue is moist. Trachea is midline. LUNGS: Symmetric on both sides. Bilateral breath sounds present. Clear to auscultation. CVS: Strang at the fifth intercostal space, midclavicular line. S1, S2 audible. No murmur or gallop. ABDOMEN: Normal in appearance, soft, tympanic. No guarding. No rigidity. No hepatosplenomegaly. HEAD OF QUALITY: The patient is alert, awake, and oriented x3. Nonfocal neuro examination. Cranial nerves II through XII grossly intact. Sensory and motor system is within normal limit. EXTREMITIES: No cyanosis, no clubbing, no edema on the right leg. The patient has a swelling of the left leg and left foot, up to the knee joint. MEDICATIONS: Current medications include as follows, ferrous gluconate 125 mg IV daily, Florastor 250 mg p.o. b.i.d., Lantus 16 units subcu at bedtime, cefepime 1 gm IV piggyback every 24 hours, morphine sulfate 4 mg IV every 4 hours p.r.n., Nephro-Rosario 1 tablet daily, Norvasc 5 mg p.o. daily, NovoLog 16 units subcu b.i.d., Odefsey 1 tablet daily, Procrit 10,000 units three times a week, Protonix 40 mg p.o. daily, Reglan 10 mg IV , Rocaltrol 0.25 mcg p.o. three times a week, vancomycin 1 gm every 48 hours, Zofran 4 mg p.o. every 6 hours p.r.n., Zoloft 50 mg p.o. daily. LABORATORY DATA: Include as follows, as of 07/14/2017, WBC 18.6, hemoglobin 8.5, hematocrit is 24.5, platelets 523. Sodium 140, potassium 5.2, chloride 107, CO of 23, BUN 46, creatinine 4.4, glucose 131, calcium 8.9. Total bili 0.5, AST 28, ALT 17, alkaline phosphatase 196, total protein 8.6, albumin 2.7. Random vancomycin level less than 5. Left foot wound culture positive for gram positive cocci. IMPRESSION: In summary, Mrs. Johnson is a 36 years old young transgender female with human immunodeficiency virus positive, hypertension, diabetes, Charcot's foot, osteomyelitis of the left foot, increased BUN and creatinine, low H and H. 1. Acute renal failure, on chronic kidney disease versus progression of the chronic kidney disease. 2. Proteinuria. Rule out diabetic nephropathy, rule out human immunodeficiency virus associated nephropathy, rule out chronic glomerulonephritis such as focal segmental glomerulonephritis. 3. Anemia, status post transfusion of 2 units of packed RBC, H and H are stable. 4. Secondary hyperparathyroidism. 5. Hypertension. 6. Uncontrolled diabetes. 7. Human immunodeficiency virus positive. PLAN: We will continue Procrit. Continue IV Ferrlecit and also continue Rocaltrol. Followup H and H and repeat BMP in a.m. We will follow with you. Thank you for allowing me to participate in your patient's care. Weston Brambila MD [facility] # [phone]
--- NOTE | 2017-07-15 06:07 | CP.PCM.PN ---
Subjective - Date & Time of Evaluation Date of Evaluation: 07/14/17 Time of Evaluation: 19:35 - Subjective Subjective: Patient seen and evaluated Cardiac point of view stable HR and BP under control No cardiac syptoms Objective - Vital Signs/Intake and Output Vital Signs (last 24 hours): Temp Pulse Resp BP Pulse Ox 99.1 F 106 H 20 158/94 H 99 07/14/17 23:00 07/14/17 23:00 07/14/17 23:00 07/14/17 23:00 07/14/17 23:00 Intake and Output: 07/14/17 07/15/17 18:59 06:59 Intake Total 650 1200 Output Total 750 Balance -100 1200 - Medications Medications: Current Medications Amlodipine Besylate (Norvasc) 5 mg PO DAILY [facility] Last Admin: 07/14/17 10:17 Dose: 5 mg Calcitriol (Rocaltrol) 0.25 mcg PO TTS [facility] Last Admin: 07/13/17 11:12 Dose: 0.25 mcg Epoetin Anival (Procrit) 10,000 unit SC TTS [facility] Last Admin: 07/13/17 11:10 Dose: 10,000 unit Ferric Sodium Gluconate Complex (Ferrlecit) 125 mg IVPB DAILY [facility] Stop: 07/18/17 10:01 Last Admin: 07/14/17 10:17 Dose: 125 mg Home Med (Patient's Own Medication) 1 tab PO DAILY [facility] Last Admin: 07/14/17 10:19 Dose: 1 tab Cefepime HCl (Maxipime Iv 1 Gm Premix) 1 gm in 50 mls @ 100 mls/hr IVPB Q24H [facility] PRN Reason: Protocol Last Admin: 07/14/17 11:49 Dose: 100 mls/hr Vancomycin/Sodium Chloride (Vancomycin 1 Gm/Ns 200 Ml) 1 gm in 200 mls @ 133.333 mls/hr IVPB Q48H [facility] PRN Reason: Protocol Stop: 07/19/17 19:01 Last Admin: 07/14/17 19:07 Dose: 133.333 mls/hr Insulin Aspart (Novolog) 16 unit SC BID [facility] Last Admin: 07/14/17 17:14 Dose: Not Given Insulin Glargine (Lantus) 16 unit SC HS [facility] Last Admin: 07/14/17 21:14 Dose: 16 unit Metoclopramide HCl (Reglan) 10 mg IVP ACHS PRN PRN Reason: Nausea/Vomiting Last Admin: 07/11/17 08:30 Dose: 10 mg Morphine Sulfate (Morphine) 4 mg IV Q4 PRN PRN Reason: Pain, severe (8-10) Last Admin: 07/15/17 04:58 Dose: 4 mg Ondansetron HCl (Zofran Tab) 4 mg PO Q6H PRN PRN Reason: Nausea/Vomiting Last Admin: 07/11/17 19:51 Dose: 4 mg Pantoprazole Sodium (Protonix Ec Tab) 40 mg PO DAILY [facility] Last Admin: 07/14/17 10:18 Dose: 40 mg Saccharomyces Boulardii (Florastor) 250 mg PO BID [facility] Last Admin: 07/14/17 17:06 Dose: 250 mg Sertraline HCl (Zoloft) 50 mg PO DAILY [facility] Last Admin: 07/14/17 10:18 Dose: 50 mg Vitamin B Complex/Vit C/Folic Acid (Nephro-Rosario) 1 tab PO 0800 [facility] Last Admin: 07/14/17 08:26 Dose: 1 tab - Labs Labs: 07/14/17 07:25 07/14/17 07:25 PT 14.4 SECONDS (9.7-12.2) H 07/05/17 23:07 INR 1.3 07/05/17 23:07 APTT 25 SECONDS (21-34) 07/05/17 23:07
[2017-07-15] MEDS: Multivitamin Vitamin B Complex (Nephro-Vite) Tab PO SCH (08:07)
[2017-07-15] MEDS: Ferric Sodium Gluconat Complex 62.5 mg/5 ml Vial IVPB SCH (09:29)
[2017-07-15] MEDS: Saccharomyces Boulardi 250 mg Cap PO SCH ×2 (09:29→17:35)
[2017-07-15] MEDS: ODEFSEY PO SCH (09:30)
[2017-07-15] MEDS: Pantoprazole 40 mg EC Tab PO SCH (09:39)
[2017-07-15] MEDS: Epoetin Alfa 10,000 unit/ml Dialysis SC SCH ×2 (10:57→10:58)
[2017-07-15] MEDS: (Novolog) Insulin Aspart, Recombinant 100 u/ml 10 ml vial SC SCH ×3 (11:00→21:18)
[2017-07-15] MEDS: Cefepime IV 1 gm in Dextrose 1 GM/50 ML BAG IVPB SCH (12:04)
--- NOTE | 2017-07-15 12:05 | CP.PCM.PN ---
Subjective - Date & Time of Evaluation Date of Evaluation: 07/15/17 Time of Evaluation: 12:05 - Subjective Subjective: pt is seen and examined, follow up consult is dictated #[id number] Objective - Vital Signs/Intake and Output Vital Signs (last 24 hours): Temp Pulse Resp BP Pulse Ox 98.6 F 102 H 20 149/88 97 07/15/17 09:09 07/15/17 10:56 07/15/17 09:09 07/15/17 10:56 07/15/17 09:09 Intake and Output: 07/15/17 07/15/17 06:59 18:59 Intake Total 1200 Output Total 2900 Balance -1700 - Medications Medications: Current Medications Amlodipine Besylate (Norvasc) 10 mg PO DAILY [facility] Last Admin: 07/15/17 10:10 Dose: Not Given Calcitriol (Rocaltrol) 0.25 mcg PO TTS [facility] Last Admin: 07/15/17 09:28 Dose: 0.25 mcg Epoetin Anival (Procrit) 10,000 unit SC TTS [facility] Last Admin: 07/15/17 10:58 Dose: Not Given Ferric Sodium Gluconate Complex (Ferrlecit) 125 mg IVPB DAILY [facility] Stop: 07/18/17 10:01 Last Admin: 07/15/17 09:29 Dose: 125 mg Home Med (Patient's Own Medication) 1 tab PO DAILY [facility] Last Admin: 07/15/17 09:30 Dose: 1 tab Cefepime HCl (Maxipime Iv 1 Gm Premix) 1 gm in 50 mls @ 100 mls/hr IVPB Q24H [facility] PRN Reason: Protocol Last Admin: 07/15/17 12:04 Dose: 100 mls/hr Vancomycin/Sodium Chloride (Vancomycin 1 Gm/Ns 200 Ml) 1 gm in 200 mls @ 133.333 mls/hr IVPB Q48H [facility] PRN Reason: Protocol Stop: 07/19/17 19:01 Last Admin: 07/14/17 19:07 Dose: 133.333 mls/hr Insulin Aspart (Novolog) 16 unit SC BID [facility] Last Admin: 07/15/17 11:00 Dose: Not Given Insulin Glargine (Lantus) 16 unit SC HS [facility] Last Admin: 07/14/17 21:14 Dose: 16 unit Labetalol HCl (Trandate) 200 mg PO Q8H [facility] Last Admin: 07/15/17 10:57 Dose: 200 mg Metoclopramide HCl (Reglan) 10 mg IVP ACHS PRN PRN Reason: Nausea/Vomiting Last Admin: 07/15/17 09:41 Dose: 10 mg Morphine Sulfate (Morphine) 4 mg IV Q4 PRN PRN Reason: Pain, severe (8-10) Last Admin: 07/15/17 09:29 Dose: 4 mg Ondansetron HCl (Zofran Tab) 4 mg PO Q6H PRN PRN Reason: Nausea/Vomiting Last Admin: 07/11/17 19:51 Dose: 4 mg Pantoprazole Sodium (Protonix Ec Tab) 40 mg PO DAILY [facility] Last Admin: 07/15/17 09:39 Dose: 40 mg Saccharomyces Boulardii (Florastor) 250 mg PO BID [facility] Last Admin: 07/15/17 09:29 Dose: 250 mg Sertraline HCl (Zoloft) 50 mg PO DAILY [facility] Last Admin: 07/15/17 09:29 Dose: 50 mg Vitamin B Complex/Vit C/Folic Acid (Nephro-Rosario) 1 tab PO 0800 [facility] Last Admin: 07/15/17 08:07 Dose: 1 tab - Labs Labs: 07/14/17 07:25 07/14/17 07:25 PT 14.4 SECONDS (9.7-12.2) H 07/05/17 23:07 INR 1.3 07/05/17 23:07 APTT 25 SECONDS (21-34) 07/05/17 23:07
--- NOTE | 2017-07-15 12:43 | CP.PCM.PN ---
Subjective - Date & Time of Evaluation Date of Evaluation: 07/15/17 Time of Evaluation: 11:00 - Subjective Subjective: Podiatry Progress Note- Dr. Figueroa Pt seen at bedside today 3 days s/p I&D in OR for L diabetic foot infection with Dr. Figueroa. Pt seen at bedside today. Reports L leg pain, however controlled with the morphine. Pt states that she was started on vanco yesterday. Denies f/n/v/c/sob/cp at this time. Objective - Vital Signs/Intake and Output Vital Signs (last 24 hours): Temp Pulse Resp BP Pulse Ox 98.6 F 102 H 20 149/88 97 07/15/17 09:09 07/15/17 10:56 07/15/17 09:09 07/15/17 10:56 07/15/17 09:09 Intake and Output: 07/15/17 07/15/17 06:59 18:59 Intake Total 1200 Output Total 2900 Balance -1700 - Medications Medications: Current Medications Amlodipine Besylate (Norvasc) 10 mg PO DAILY [facility] Last Admin: 07/15/17 10:10 Dose: Not Given Calcitriol (Rocaltrol) 0.25 mcg PO TTS [facility] Last Admin: 07/15/17 09:28 Dose: 0.25 mcg Epoetin Anival (Procrit) 10,000 unit SC TTS [facility] Last Admin: 07/15/17 10:58 Dose: Not Given Ferric Sodium Gluconate Complex (Ferrlecit) 125 mg IVPB DAILY [facility] Stop: 07/18/17 10:01 Last Admin: 07/15/17 09:29 Dose: 125 mg Home Med (Patient's Own Medication) 1 tab PO DAILY [facility] Last Admin: 07/15/17 09:30 Dose: 1 tab Cefepime HCl (Maxipime Iv 1 Gm Premix) 1 gm in 50 mls @ 100 mls/hr IVPB Q24H [facility] PRN Reason: Protocol Last Admin: 07/15/17 12:04 Dose: 100 mls/hr Vancomycin/Sodium Chloride (Vancomycin 1 Gm/Ns 200 Ml) 1 gm in 200 mls @ 133.333 mls/hr IVPB Q48H [facility] PRN Reason: Protocol Stop: 07/19/17 19:01 Last Admin: 07/14/17 19:07 Dose: 133.333 mls/hr Insulin Aspart (Novolog) 16 unit SC BID [facility] Last Admin: 07/15/17 11:00 Dose: Not Given Insulin Aspart (Novolog) 0 unit SC ACHS [facility] PRN Reason: Protocol Insulin Glargine (Lantus) 16 unit SC HS [facility] Last Admin: 07/14/17 21:14 Dose: 16 unit Labetalol HCl (Trandate) 200 mg PO Q8H [facility] Last Admin: 07/15/17 10:57 Dose: 200 mg Metoclopramide HCl (Reglan) 10 mg IVP ACHS PRN PRN Reason: Nausea/Vomiting Last Admin: 07/15/17 09:41 Dose: 10 mg Morphine Sulfate (Morphine) 4 mg IV Q4 PRN PRN Reason: Pain, severe (8-10) Last Admin: 07/15/17 09:29 Dose: 4 mg Ondansetron HCl (Zofran Tab) 4 mg PO Q6H PRN PRN Reason: Nausea/Vomiting Last Admin: 07/11/17 19:51 Dose: 4 mg Pantoprazole Sodium (Protonix Ec Tab) 40 mg PO DAILY [facility] Last Admin: 07/15/17 09:39 Dose: 40 mg Saccharomyces Boulardii (Florastor) 250 mg PO BID [facility] Last Admin: 07/15/17 09:29 Dose: 250 mg Sertraline HCl (Zoloft) 50 mg PO DAILY [facility] Last Admin: 07/15/17 09:29 Dose: 50 mg Vitamin B Complex/Vit C/Folic Acid (Nephro-Rosario) 1 tab PO 0800 [facility] Last Admin: 07/15/17 08:07 Dose: 1 tab - Labs Labs: 07/14/17 07:25 07/14/17 07:25 PT 14.4 SECONDS (9.7-12.2) H 07/05/17 23:07 INR 1.3 07/05/17 23:07 APTT 25 SECONDS (21-34) 07/05/17 23:07 - Constitutional Appears: Non-toxic, No Acute Distress - Extremities Exam Extremities Exam: absent: Calf Tenderness Additional comments: LLE: moderate sero-sanguinous drainage noted to outer bandage today VASC- DP pulse faintly palpable, skin temp runs warm to warm, cap refill < 4 sec , 3+ pitting edema is noted to dorsum of foot DERM- there is a full-thickness ulceration noted to dorsal aspect of foot which measures 0.5x4.0x1.5cm (no active drainage, neg purulence, neg malodor with mixed fibrogranular base which tracks proximally 0.5cm , macerated border) , there is a 2nd full-thickness ulceration noted to dorsal-lateral aspect of 5th metatarsal amputation site measures 1.0x4.0x1.5cm with mixed fibrogranular base and somewhat macerated border (no active drainage, no purulence, neg malodor, neg tracking), third ulceration noted just plantar to the 2nd wound measures 0.5x1.0x1.0 cm (mixed fibrogranular base, macerated border, neg tracking, minimal serosang drainage), superficial lceration noted to distal lateral leg meausres approx. 3.0x5.0x0.3cm with mixed fibrogranular base, neg PTB, neg fluctuance, gross lichenification of pedal skin NEURO- gross and protective pedal sensation are diminished MSK- tenderness noted to palp of wound sites - Neurological Exam Neurological Exam: Alert, Awake, Oriented x3 - Psychiatric Exam Psychiatric exam: Normal Affect, Normal Mood Assessment and Plan - Assessment and Plan (Free Text) Assessment: 36 yo female pt POD #3 I&D L foot 2/2 diabetic foot infection (improving) Plan: Pt S&E at bedside d/w Dr. Figueroa Wounds flushed with sterile saline and redressed with betadine soaked gauze, extra ABD's, kerlix c/w IV abx per ID (cefepime and vanco) Per Dr. Del Valle, will require 6-8 weeks IV abx stable, will follow
--- NOTE | 2017-07-15 12:48 | CP.PCM.PN ---
Subjective - Date & Time of Evaluation Date of Evaluation: 07/15/17 Time of Evaluation: 12:46 - Subjective Subjective: PT FELT UNEASINESS IN THE AM. BS LOW. BP HIGH. LT FOOT SAME. BMP PT REFUSED.A AFEBRILE. Objective - Vital Signs/Intake and Output Vital Signs (last 24 hours): Temp Pulse Resp BP Pulse Ox 98.6 F 102 H 20 149/88 97 07/15/17 09:09 07/15/17 10:56 07/15/17 09:09 07/15/17 10:56 07/15/17 09:09 Intake and Output: 07/15/17 07/15/17 06:59 18:59 Intake Total 1200 Output Total 2900 Balance -1700 - Medications Medications: Current Medications Amlodipine Besylate (Norvasc) 10 mg PO DAILY [facility] Last Admin: 07/15/17 10:10 Dose: Not Given Calcitriol (Rocaltrol) 0.25 mcg PO TTS [facility] Last Admin: 07/15/17 09:28 Dose: 0.25 mcg Epoetin Anival (Procrit) 10,000 unit SC TTS [facility] Last Admin: 07/15/17 10:58 Dose: Not Given Ferric Sodium Gluconate Complex (Ferrlecit) 125 mg IVPB DAILY [facility] Stop: 07/18/17 10:01 Last Admin: 07/15/17 09:29 Dose: 125 mg Home Med (Patient's Own Medication) 1 tab PO DAILY [facility] Last Admin: 07/15/17 09:30 Dose: 1 tab Cefepime HCl (Maxipime Iv 1 Gm Premix) 1 gm in 50 mls @ 100 mls/hr IVPB Q24H [facility] PRN Reason: Protocol Last Admin: 07/15/17 12:04 Dose: 100 mls/hr Vancomycin/Sodium Chloride (Vancomycin 1 Gm/Ns 200 Ml) 1 gm in 200 mls @ 133.333 mls/hr IVPB Q48H [facility] PRN Reason: Protocol Stop: 07/19/17 19:01 Last Admin: 07/14/17 19:07 Dose: 133.333 mls/hr Insulin Aspart (Novolog) 16 unit SC BID [facility] Last Admin: 07/15/17 11:00 Dose: Not Given Insulin Aspart (Novolog) 0 unit SC ACHS [facility] PRN Reason: Protocol Insulin Glargine (Lantus) 16 unit SC HS [facility] Last Admin: 07/14/17 21:14 Dose: 16 unit Labetalol HCl (Trandate) 200 mg PO Q8H [facility] Last Admin: 07/15/17 10:57 Dose: 200 mg Metoclopramide HCl (Reglan) 10 mg IVP ACHS PRN PRN Reason: Nausea/Vomiting Last Admin: 07/15/17 09:41 Dose: 10 mg Morphine Sulfate (Morphine) 4 mg IV Q4 PRN PRN Reason: Pain, severe (8-10) Last Admin: 07/15/17 09:29 Dose: 4 mg Ondansetron HCl (Zofran Tab) 4 mg PO Q6H PRN PRN Reason: Nausea/Vomiting Last Admin: 07/11/17 19:51 Dose: 4 mg Pantoprazole Sodium (Protonix Ec Tab) 40 mg PO DAILY [facility] Last Admin: 07/15/17 09:39 Dose: 40 mg Saccharomyces Boulardii (Florastor) 250 mg PO BID [facility] Last Admin: 07/15/17 09:29 Dose: 250 mg Sertraline HCl (Zoloft) 50 mg PO DAILY [facility] Last Admin: 07/15/17 09:29 Dose: 50 mg Vitamin B Complex/Vit C/Folic Acid (Nephro-Rosario) 1 tab PO 0800 [facility] Last Admin: 07/15/17 08:07 Dose: 1 tab - Labs Labs: 07/14/17 07:25 07/14/17 07:25 PT 14.4 SECONDS (9.7-12.2) H 07/05/17 23:07 INR 1.3 07/05/17 23:07 APTT 25 SECONDS (21-34) 07/05/17 23:07 - Constitutional Appears: No Acute Distress, Chronically Ill - Eye Exam Eye Exam: EOMI, Normal appearance, PERRL Pupil Exam: NORMAL ACCOMODATION, PERRL - ENT Exam ENT Exam: Mucous Membranes Moist, Normal Exam - Neck Exam Neck Exam: Full ROM, Normal Inspection. absent: Lymphadenopathy - Respiratory Exam Respiratory Exam: Clear to Ausculation Bilateral, NORMAL BREATHING PATTERN - Cardiovascular Exam Cardiovascular Exam: REGULAR RHYTHM, +S1, +S2. absent: Murmur - Extremities Exam Extremities Exam: Full ROM, Normal Capillary Refill, Normal Inspection. absent : Joint Swelling, Pedal Edema - Neurological Exam Neurological Exam: Alert, Awake, CN II-XII Intact, Normal Gait, Oriented x3 - Psychiatric Exam Psychiatric exam: Normal Affect, Normal Mood Assessment and Plan - Assessment and Plan (Free Text) Assessment: O/M LT FOOT. CRF. HTN HYPOGLYCEMIA. ANEMIA. Plan: CONTROL BS AND BP. IV ABTS.
--- NOTE | 2017-07-15 18:50 | CP.PCM.PN ---
Subjective - Date & Time of Evaluation Date of Evaluation: 07/15/17 Time of Evaluation: 07:00 - Subjective Subjective: wound still oozing iv rx in progress cultures noted may need OR / debridement again poor prognosis Objective - Vital Signs/Intake and Output Vital Signs (last 24 hours): Temp Pulse Resp BP Pulse Ox 98.5 F 92 H 20 148/91 H 96 07/15/17 16:04 07/15/17 17:37 07/15/17 16:04 07/15/17 17:37 07/15/17 16:04 Intake and Output: 07/15/17 07/15/17 06:59 18:59 Intake Total 1200 600 Output Total 2900 1500 Balance -1700 -900 - Medications Medications: Current Medications Amlodipine Besylate (Norvasc) 10 mg PO DAILY [facility] Last Admin: 07/15/17 10:10 Dose: Not Given Calcitriol (Rocaltrol) 0.25 mcg PO TTS [facility] Last Admin: 07/15/17 09:28 Dose: 0.25 mcg Epoetin Anival (Procrit) 10,000 unit SC TTS [facility] Last Admin: 07/15/17 10:58 Dose: Not Given Ferric Sodium Gluconate Complex (Ferrlecit) 125 mg IVPB DAILY [facility] Stop: 07/18/17 10:01 Last Admin: 07/15/17 09:29 Dose: 125 mg Home Med (Patient's Own Medication) 1 tab PO DAILY [facility] Last Admin: 07/15/17 09:30 Dose: 1 tab Cefepime HCl (Maxipime Iv 1 Gm Premix) 1 gm in 50 mls @ 100 mls/hr IVPB Q24H [facility] PRN Reason: Protocol Last Admin: 07/15/17 12:04 Dose: 100 mls/hr Vancomycin/Sodium Chloride (Vancomycin 1 Gm/Ns 200 Ml) 1 gm in 200 mls @ 133.333 mls/hr IVPB Q48H [facility] PRN Reason: Protocol Stop: 07/19/17 19:01 Last Admin: 07/14/17 19:07 Dose: 133.333 mls/hr Insulin Aspart (Novolog) 16 unit SC BID [facility] Last Admin: 07/15/17 11:00 Dose: Not Given Insulin Aspart (Novolog) 0 unit SC ACHS [facility] PRN Reason: Protocol Last Admin: 07/15/17 17:36 Dose: 1 unit Insulin Glargine (Lantus) 16 unit SC HS [facility] Last Admin: 07/14/17 21:14 Dose: 16 unit Labetalol HCl (Trandate) 200 mg PO Q8H [facility] Last Admin: 07/15/17 17:36 Dose: 200 mg Metoclopramide HCl (Reglan) 10 mg IVP ACHS PRN PRN Reason: Nausea/Vomiting Last Admin: 07/15/17 09:41 Dose: 10 mg Morphine Sulfate (Morphine) 4 mg IV Q4 PRN PRN Reason: Pain, severe (8-10) Last Admin: 07/15/17 17:36 Dose: 4 mg Ondansetron HCl (Zofran Tab) 4 mg PO Q6H PRN PRN Reason: Nausea/Vomiting Last Admin: 07/11/17 19:51 Dose: 4 mg Pantoprazole Sodium (Protonix Ec Tab) 40 mg PO DAILY [facility] Last Admin: 07/15/17 09:39 Dose: 40 mg Saccharomyces Boulardii (Florastor) 250 mg PO BID [facility] Last Admin: 07/15/17 17:35 Dose: 250 mg Sertraline HCl (Zoloft) 50 mg PO DAILY [facility] Last Admin: 07/15/17 09:29 Dose: 50 mg Vitamin B Complex/Vit C/Folic Acid (Nephro-Rosario) 1 tab PO 0800 [facility] Last Admin: 07/15/17 08:07 Dose: 1 tab - Labs Labs: 07/14/17 07:25 07/14/17 07:25 PT 14.4 SECONDS (9.7-12.2) H 07/05/17 23:07 INR 1.3 07/05/17 23:07 APTT 25 SECONDS (21-34) 07/05/17 23:07 - Constitutional Appears: Non-toxic, Chronically Ill - Head Exam Head Exam: NORMOCEPHALIC - Eye Exam Eye Exam: PERRL. absent: Scleral icterus - ENT Exam ENT Exam: Mucous Membranes Dry - Neck Exam Neck Exam: absent: Lymphadenopathy - Respiratory Exam Respiratory Exam: Decreased Breath Sounds - Cardiovascular Exam Cardiovascular Exam: REGULAR RHYTHM - GI/Abdominal Exam GI & Abdominal Exam: Distended Assessment and Plan (1) Gangrene associated with type 2 diabetes mellitus Status: Acute (2) Gangrene associated with type 2 diabetes mellitus Status: Acute (3) Diabetes mellitus type 1, uncontrolled, insulin dependent Status: Acute (4) Diabetic foot infection Status: Acute (5) Leg edema, left Status: Acute (6) HIV (human immunodeficiency virus infection) Status: Chronic (7) Obesities, morbid Status: Chronic (8) GAEL (acute kidney injury) Status: Acute (9) Abscess and cellulitis Status: Acute - Assessment and Plan (Free Text) Assessment: await podiatry re-eval cont iv rx and wound care refuses amputation
[2017-07-15 19:33] LABS: BASO # 0.1 K/uL (0.0-0.2); BASO % 0.6 % (0.0-2.0); EOS # 0.5 K/uL (0.0-0.7); EOS % 4.7 % (0.0-4.0); LYMPH # 2.1 K/uL (1.0-4.3); LYMPH % 18.5 % (20.0-40.0); MEAN CELL VOLUME 85.9 fL (81.0-99.0); MEAN CORPUSCULAR HEMOGLOBIN 28.4 pg (27.0-31.0); MEAN CORPUSCULAR HGB CONC 33.1 g/dL (33.0-37.0); MEAN PLATELET VOLUME 6.4 fL (7.2-11.7); MONO # 1.2 K/uL (0.0-0.8); MONO % 10.3 % (0.0-10.0); NEUT # 7.6 K/uL (1.8-7.0); NEUT % 65.9 % (50.0-75.0); NRBC % 0.1 % (0.0-2.0); RBC 2.81 Mil/uL (3.80-5.20); RED CELL DISTRIBUTION WIDTH 15.5 % (11.5-14.5); WHITE BLOOD COUNT 11.6 K/uL (4.8-10.8)
[2017-07-15 19:46] LABS: CALCIUM 8.6 mg/dl (8.6-10.4)
[2017-07-15] MEDS: (Lantus) Insulin Glargine, Recombinant SC SCH (21:50)
--- NOTE | 2017-07-15 23:32 | CP.PCM.PN ---
Subjective - Date & Time of Evaluation Date of Evaluation: 07/15/17 Time of Evaluation: 20:35 - Subjective Subjective: Patient remains hemodynamically stable Objective - Vital Signs/Intake and Output Vital Signs (last 24 hours): Temp Pulse Resp BP Pulse Ox 98.5 F 86 20 120/87 96 07/15/17 16:04 07/15/17 20:35 07/15/17 16:04 07/15/17 20:35 07/15/17 16:04 Intake and Output: 07/15/17 07/16/17 18:59 06:59 Intake Total 600 800 Output Total 1500 Balance -900 800 - Medications Medications: Current Medications Amlodipine Besylate (Norvasc) 10 mg PO DAILY [facility] Last Admin: 07/15/17 10:10 Dose: Not Given Calcitriol (Rocaltrol) 0.25 mcg PO TTS [facility] Last Admin: 07/15/17 09:28 Dose: 0.25 mcg Epoetin Anival (Procrit) 10,000 unit SC TTS [facility] Last Admin: 07/15/17 10:58 Dose: Not Given Ferric Sodium Gluconate Complex (Ferrlecit) 125 mg IVPB DAILY [facility] Stop: 07/18/17 10:01 Last Admin: 07/15/17 09:29 Dose: 125 mg Home Med (Patient's Own Medication) 1 tab PO DAILY [facility] Last Admin: 07/15/17 09:30 Dose: 1 tab Cefepime HCl (Maxipime Iv 1 Gm Premix) 1 gm in 50 mls @ 100 mls/hr IVPB Q24H [facility] PRN Reason: Protocol Last Admin: 07/15/17 12:04 Dose: 100 mls/hr Vancomycin/Sodium Chloride (Vancomycin 1 Gm/Ns 200 Ml) 1 gm in 200 mls @ 133.333 mls/hr IVPB Q48H [facility] PRN Reason: Protocol Stop: 07/19/17 19:01 Last Admin: 07/14/17 19:07 Dose: 133.333 mls/hr Insulin Aspart (Novolog) 16 unit SC BID [facility] Last Admin: 07/15/17 11:00 Dose: Not Given Insulin Aspart (Novolog) 0 unit SC ACHS [facility] PRN Reason: Protocol Last Admin: 07/15/17 21:18 Dose: Not Given Insulin Glargine (Lantus) 16 unit SC HS [facility] Last Admin: 07/15/17 21:50 Dose: 16 unit Labetalol HCl (Trandate) 200 mg PO Q8H [facility] Last Admin: 07/15/17 17:36 Dose: 200 mg Metoclopramide HCl (Reglan) 10 mg IVP ACHS PRN PRN Reason: Nausea/Vomiting Last Admin: 07/15/17 09:41 Dose: 10 mg Morphine Sulfate (Morphine) 4 mg IV Q4 PRN PRN Reason: Pain, severe (8-10) Last Admin: 07/15/17 21:50 Dose: 4 mg Ondansetron HCl (Zofran Tab) 4 mg PO Q6H PRN PRN Reason: Nausea/Vomiting Last Admin: 07/11/17 19:51 Dose: 4 mg Pantoprazole Sodium (Protonix Ec Tab) 40 mg PO DAILY [facility] Last Admin: 07/15/17 09:39 Dose: 40 mg Saccharomyces Boulardii (Florastor) 250 mg PO BID [facility] Last Admin: 07/15/17 17:35 Dose: 250 mg Sertraline HCl (Zoloft) 50 mg PO DAILY [facility] Last Admin: 07/15/17 09:29 Dose: 50 mg Vitamin B Complex/Vit C/Folic Acid (Nephro-Rosario) 1 tab PO 0800 [facility] Last Admin: 07/15/17 08:07 Dose: 1 tab - Labs Labs: 07/15/17 19:29 07/15/17 19:29 PT 14.4 SECONDS (9.7-12.2) H 07/05/17 23:07 INR 1.3 07/05/17 23:07 APTT 25 SECONDS (21-34) 07/05/17 23:07
[2017-07-16] MEDS: Morphine 4 MG/ML VIAL IV PRN ×6 (01:45→22:12)
--- NOTE | 2017-07-16 06:35 | PN ---
DATE: 07/15/2017. FOLLOWUP RENAL CONSULTATION LOCATION: Room 568, bed B. REQUESTED BY: Dr. Art Nathan. HISTORY OF PRESENT ILLNESS: Mrs. Johnson is a 36 years old young transgender female with a history of hypertension, diabetes, Charcot's foot, osteomyelitis, anemia, acute renal failure, chronic kidney disease, proteinuria was admitted with fever and nausea, vomiting and also left leg swelling. The patient is being treated for the left foot infection, possible osteomyelitis, status post debridement and also found to have a worsening renal function and low H and H is status post transfusion of 2 units packed RBC. The patient is feeling much better this morning, not in distress. Denies any chest pain or palpitation. Denies any fever or cough. No abdominal pain. No nausea, vomiting, diarrhea. PHYSICAL EXAMINATION: VITAL SIGNS: As follows; blood pressure this morning 149/88, pulse 102, respiration 20, temperature 98.5, saturation 96%. Height 6 feet 3 inches and weight is 280 pounds. GENERAL: Mrs. Johnson is 36 years old young transgender female, well-built, well-nourished, not in distress. HEENT: Pupils normal, reactive to light and accommodation. Conjunctivae pink. Sclerae anicteric. Tongue is moist. Trachea is midline. LUNGS: Symmetric on both sides. Bilateral breath sounds present. Clear to auscultation. CVS: [place] at the fifth intercostal space, midclavicular line. S1 and S2 audible. No murmur or gallop. ABDOMEN: Normal in appearance, soft, tympanic. No guarding, no rigidity. No hepatosplenomegaly. PROFESSOR OF SURGERY: The patient is alert, awake, oriented x3. Nonfocal neuro examination. Cranial nerves II through XII grossly intact. Sensory and motor system is within normal limits. EXTREMITIES: No cyanosis, no clubbing, no edema on the right leg. The patient has swelling of the left leg and also up to the knee joint. CURRENT MEDICATIONS: Include as follows; Ferrlecit 125 mg IV daily, Florastor 250 mg p.o. b.i.d., Lantus 16 units subcu at bedtime, cefepime 1 gm daily, morphine sulfate 4 mg IV every 4 hours p.r.n., Nephro-Rosario 1 tablet daily, amlodipine 10 mg p.o. daily, NovoLog on hold, Odefsey 1 tablet daily, Procrit 10,000 units three times a week, Reglan 10 mg IV a.c. and at bedtime, Rocaltrol 0.25 mcg p.o. three times a week, labetalol 200 mg p.o. every 8 hours, vancomycin 1 gm every 48 hours, Zofran 4 mg p.o. every 6 hours, Zoloft 10 mg p.o. daily and amlodipine was increased from 5 mg to 10 mg this morning. LABORATORY DATA: Include as follows as of 07/15/2017; WBC 11.6, hemoglobin 8, hematocrit is 24.1, platelets 559. Sodium 139, potassium 5.3, chloride 107, CO2 21, BUN 44, creatinine 3.8, glucose 178, calcium 8.6. ASSESSMENT AND PLAN: In summary, Mrs. Johnson is 36 years old young transgender female with hypertension and diabetes uncontrolled, human immunodeficiency virus positive, Charcot's foot, renal failure, anemia, proteinuria and left foot infection. 1. Acute renal failure on chronic kidney disease most likely secondary to acute tubular necrosis secondary to left foot infection. 2. Anemia secondary to renal failure and iron-deficiency, rule-out gastrointestinal bleed, ulcer. 3. Hypertension. 4. Uncontrolled diabetes. 5. Left foot infection. Continue antibiotics, meropenem and vancomycin as per Dr. Del Valle . Started on labetalol 200 mg p.o. every 8 hours. Will continue to monitor BMP. Continue calcitriol, continue IV Ferrlecit, continue Procrit and also Nephro-Rosario. 6. 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 Continue calcitriol three times a week. We will follow with you. Thank you for allowing me to participate in your patient's care. Weston Brambila MD
[2017-07-16] MEDS: (Novolog) Insulin Aspart, Recombinant 100 u/ml 10 ml vial SC SCH ×4 (07:54→21:35)
[2017-07-16 07:57] LABS: HEMOGLOBIN 7.7 g/dL (11.0-16.0); MEAN CELL VOLUME 86.2 fL (81.0-99.0); MEAN CORPUSCULAR HGB CONC 33.7 g/dL (33.0-37.0); MEAN PLATELET VOLUME 6.7 fL (7.2-11.7); RBC 2.66 Mil/uL (3.80-5.20); RED CELL DISTRIBUTION WIDTH 15.6 % (11.5-14.5); WHITE BLOOD COUNT 12.5 K/uL (4.8-10.8)
[2017-07-16 08:13] LABS: CALCIUM 8.6 mg/dl (8.6-10.4)
[2017-07-16] MEDS ORDERED: Sod Polystyrene Sulf 15 gm/60 ml Susp PO ONE (08:46)
[2017-07-16] MEDS: Multivitamin Vitamin B Complex (Nephro-Vite) Tab PO SCH (08:47)
[2017-07-16] MEDS: Pantoprazole 40 mg EC Tab PO SCH (10:04)
[2017-07-16] MEDS: Saccharomyces Boulardi 250 mg Cap PO SCH ×2 (10:04→17:03)
[2017-07-16] MEDS: Ferric Sodium Gluconat Complex 62.5 mg/5 ml Vial IVPB SCH (10:04)
[2017-07-16] MEDS: ODEFSEY PO SCH (10:05)
--- NOTE | 2017-07-16 10:33 | CP.PCM.PN ---
Subjective - Date & Time of Evaluation Date of Evaluation: 07/16/17 Time of Evaluation: 11:00 - Subjective Subjective: Podiatry Progress Note- Dr. Figueroa Pt seen at bedside today 4 days s/p I&D in OR for L diabetic foot infection with Dr. Figueroa. Pt denies any acute events overnight. Reports improved leg and foot pain today. Denies f/n/v/c/sob/cp at this time. No other complaints. Objective - Vital Signs/Intake and Output Vital Signs (last 24 hours): Temp Pulse Resp BP Pulse Ox 99.8 F H 97 H 20 142/88 97 07/15/17 23:00 07/15/17 23:00 07/15/17 23:00 07/15/17 23:00 07/15/17 23:00 Intake and Output: 07/16/17 07/16/17 06:59 18:59 Intake Total 800 Output Total 1800 Balance -1000 - Medications Medications: Current Medications Amlodipine Besylate (Norvasc) 10 mg PO DAILY [facility] Last Admin: 07/16/17 10:03 Dose: 10 mg Calcitriol (Rocaltrol) 0.25 mcg PO TTS [facility] Last Admin: 07/15/17 09:28 Dose: 0.25 mcg Epoetin Anival (Procrit) 10,000 unit SC TTS [facility] Last Admin: 07/15/17 10:58 Dose: Not Given Ferric Sodium Gluconate Complex (Ferrlecit) 125 mg IVPB DAILY [facility] Stop: 07/18/17 10:01 Last Admin: 07/16/17 10:04 Dose: 125 mg Home Med (Patient's Own Medication) 1 tab PO DAILY [facility] Last Admin: 07/16/17 10:05 Dose: 1 tab Cefepime HCl (Maxipime Iv 1 Gm Premix) 1 gm in 50 mls @ 100 mls/hr IVPB Q24H [facility] PRN Reason: Protocol Last Admin: 07/15/17 12:04 Dose: 100 mls/hr Vancomycin/Sodium Chloride (Vancomycin 1 Gm/Ns 200 Ml) 1 gm in 200 mls @ 133.333 mls/hr IVPB Q48H [facility] PRN Reason: Protocol Stop: 07/19/17 19:01 Last Admin: 07/14/17 19:07 Dose: 133.333 mls/hr Insulin Aspart (Novolog) 16 unit SC BID [facility] Last Admin: 07/15/17 11:00 Dose: Not Given Insulin Aspart (Novolog) 0 unit SC ACHS [facility] PRN Reason: Protocol Last Admin: 07/16/17 07:54 Dose: Not Given Insulin Glargine (Lantus) 16 unit SC HS [facility] Last Admin: 07/15/17 21:50 Dose: 16 unit Labetalol HCl (Trandate) 200 mg PO Q8H [facility] Last Admin: 07/16/17 10:04 Dose: 200 mg Metoclopramide HCl (Reglan) 10 mg IVP ACHS PRN PRN Reason: Nausea/Vomiting Last Admin: 07/16/17 10:09 Dose: 10 mg Morphine Sulfate (Morphine) 4 mg IV Q4 PRN PRN Reason: Pain, severe (8-10) Last Admin: 07/16/17 09:59 Dose: 4 mg Ondansetron HCl (Zofran Tab) 4 mg PO Q6H PRN PRN Reason: Nausea/Vomiting Last Admin: 07/11/17 19:51 Dose: 4 mg Pantoprazole Sodium (Protonix Ec Tab) 40 mg PO DAILY [facility] Last Admin: 07/16/17 10:04 Dose: 40 mg Saccharomyces Boulardii (Florastor) 250 mg PO BID [facility] Last Admin: 07/16/17 10:04 Dose: 250 mg Sertraline HCl (Zoloft) 50 mg PO DAILY [facility] Last Admin: 07/16/17 10:04 Dose: 50 mg Vitamin B Complex/Vit C/Folic Acid (Nephro-Rosario) 1 tab PO 0800 [facility] Last Admin: 07/16/17 08:47 Dose: Not Given - Labs Labs: 07/16/17 07:49 07/16/17 07:49 PT 14.4 SECONDS (9.7-12.2) H 07/05/17 23:07 INR 1.3 07/05/17 23:07 APTT 25 SECONDS (21-34) 07/05/17 23:07 - Constitutional Appears: Non-toxic, No Acute Distress - Extremities Exam Extremities Exam: absent: Calf Tenderness Additional comments: LLE: light sero-sanguinous drainage noted to outer bandage today VASC- DP pulse faintly palpable, skin temp runs warm to warm, cap refill < 4 sec , 3+ pitting edema is noted to dorsum of foot DERM- there is a full-thickness ulceration noted to dorsal aspect of foot which measures 0.5x4.0x1.5cm (no active drainage, neg purulence, neg malodor with mixed fibrogranular base which tracks proximally 0.5cm , macerated border) , there is a 2nd full-thickness ulceration noted to dorsal-lateral aspect of 5th metatarsal amputation site measures 1.0x4.0x1.5cm with mixed fibrogranular base and somewhat macerated border (no active drainage, no purulence, neg malodor, neg tracking), third ulceration noted just plantar to the 2nd wound measures 0.5x1.0x1.0 cm (mixed fibrogranular base, macerated border, neg tracking, minimal serosang drainage), superficial ulceration noted to distal lateral leg measures approx. 3.0x5.0x0.3cm with mixed fibrogranular base, neg PTB, neg fluctuance, gross lichenification of pedal skin NEURO- gross and protective pedal sensation are diminished MSK- tenderness noted to palp of wound sites - Neurological Exam Neurological Exam: Alert, Awake, Oriented x3 - Psychiatric Exam Psychiatric exam: Normal Affect, Normal Mood Assessment and Plan - Assessment and Plan (Free Text) Assessment: 36 yo female pt POD #4 I&D L foot 2/2 diabetic foot infection (improving) Plan: Pt S&E at bedside d/w Dr. Figueroa pt is cleared for PWB to L heel as tolerated with surgical shoe Wounds flushed with sterile saline and redressed with betadine soaked gauze, extra ABD's, kerlix c/w IV abx per ID (cefepime and vanco) will require 6-8 weeks IV abx Pt will need to f/u with Dr. Coy in the wound care center next wednesday stable, will follow
--- NOTE | 2017-07-16 11:23 | CP.PCM.PN ---
Subjective - Date & Time of Evaluation Date of Evaluation: 07/16/17 Time of Evaluation: 11:23 - Subjective Subjective: pt is seen and examined, follow up consult is dictated #[phone] agree with kayexalate will increase epogen check stool for ob f/u cbc, bmp in am low, low k+ diet Objective - Vital Signs/Intake and Output Vital Signs (last 24 hours): Temp Pulse Resp BP Pulse Ox 99.8 F H 97 H 20 142/88 97 07/15/17 23:00 07/15/17 23:00 07/15/17 23:00 07/15/17 23:00 07/15/17 23:00 Intake and Output: 07/16/17 07/16/17 06:59 18:59 Intake Total 800 Output Total 1800 Balance -1000 - Medications Medications: Current Medications Amlodipine Besylate (Norvasc) 10 mg PO DAILY [facility] Last Admin: 07/16/17 10:03 Dose: 10 mg Calcitriol (Rocaltrol) 0.25 mcg PO TTS [facility] Last Admin: 07/15/17 09:28 Dose: 0.25 mcg Epoetin Anival (Procrit) 10,000 unit SC TTS [facility] Last Admin: 07/15/17 10:58 Dose: Not Given Ferric Sodium Gluconate Complex (Ferrlecit) 125 mg IVPB DAILY [facility] Stop: 07/18/17 10:01 Last Admin: 07/16/17 10:04 Dose: 125 mg Home Med (Patient's Own Medication) 1 tab PO DAILY [facility] Last Admin: 07/16/17 10:05 Dose: 1 tab Cefepime HCl (Maxipime Iv 1 Gm Premix) 1 gm in 50 mls @ 100 mls/hr IVPB Q24H [facility] PRN Reason: Protocol Last Admin: 07/15/17 12:04 Dose: 100 mls/hr Vancomycin/Sodium Chloride (Vancomycin 1 Gm/Ns 200 Ml) 1 gm in 200 mls @ 133.333 mls/hr IVPB Q48H [facility] PRN Reason: Protocol Stop: 07/19/17 19:01 Last Admin: 07/14/17 19:07 Dose: 133.333 mls/hr Insulin Aspart (Novolog) 16 unit SC BID [facility] Last Admin: 07/15/17 11:00 Dose: Not Given Insulin Aspart (Novolog) 0 unit SC ACHS [facility] PRN Reason: Protocol Last Admin: 07/16/17 07:54 Dose: Not Given Insulin Glargine (Lantus) 16 unit SC HS [facility] Last Admin: 07/15/17 21:50 Dose: 16 unit Labetalol HCl (Trandate) 200 mg PO Q8H [facility] Last Admin: 07/16/17 10:04 Dose: 200 mg Metoclopramide HCl (Reglan) 10 mg IVP ACHS PRN PRN Reason: Nausea/Vomiting Last Admin: 07/16/17 10:09 Dose: 10 mg Morphine Sulfate (Morphine) 4 mg IV Q4 PRN PRN Reason: Pain, severe (8-10) Last Admin: 07/16/17 09:59 Dose: 4 mg Ondansetron HCl (Zofran Tab) 4 mg PO Q6H PRN PRN Reason: Nausea/Vomiting Last Admin: 07/11/17 19:51 Dose: 4 mg Pantoprazole Sodium (Protonix Ec Tab) 40 mg PO DAILY [facility] Last Admin: 07/16/17 10:04 Dose: 40 mg Saccharomyces Boulardii (Florastor) 250 mg PO BID [facility] Last Admin: 07/16/17 10:04 Dose: 250 mg Sertraline HCl (Zoloft) 50 mg PO DAILY [facility] Last Admin: 07/16/17 10:04 Dose: 50 mg Vitamin B Complex/Vit C/Folic Acid (Nephro-Rosario) 1 tab PO 0800 [facility] Last Admin: 07/16/17 08:47 Dose: Not Given - Labs Labs: 07/16/17 07:49 07/16/17 07:49 PT 14.4 SECONDS (9.7-12.2) H 07/05/17 23:07 INR 1.3 07/05/17 23:07 APTT 25 SECONDS (21-34) 07/05/17 23:07
--- NOTE | 2017-07-16 12:28 | CP.PCM.PN ---
Subjective - Date & Time of Evaluation Date of Evaluation: 07/16/17 Time of Evaluation: 12:24 - Subjective Subjective: CONDITION REMAINS SAME. AFEBRILE. BP HIGH. BUN CREATININE 44/3.8 K 5.6 LT FOOT SAME. ANEMIA PRESENT HB DROPPED TO 7.7 Objective - Vital Signs/Intake and Output Vital Signs (last 24 hours): Temp Pulse Resp BP Pulse Ox 98.5 F 98 H 18 166/98 H 98 07/16/17 10:02 07/16/17 10:02 07/16/17 10:02 07/16/17 10:02 07/16/17 10:02 Intake and Output: 07/16/17 07/16/17 06:59 18:59 Intake Total 800 Output Total 1800 Balance -1000 - Medications Medications: Current Medications Amlodipine Besylate (Norvasc) 10 mg PO DAILY [facility] Last Admin: 07/16/17 10:03 Dose: 10 mg Calcitriol (Rocaltrol) 0.25 mcg PO TTS [facility] Last Admin: 07/15/17 09:28 Dose: 0.25 mcg Epoetin Anival (Procrit) 10,000 unit SC TTS [facility] Last Admin: 07/15/17 10:58 Dose: Not Given Ferric Sodium Gluconate Complex (Ferrlecit) 125 mg IVPB DAILY [facility] Stop: 07/18/17 10:01 Last Admin: 07/16/17 10:04 Dose: 125 mg Home Med (Patient's Own Medication) 1 tab PO DAILY [facility] Last Admin: 07/16/17 10:05 Dose: 1 tab Cefepime HCl (Maxipime Iv 1 Gm Premix) 1 gm in 50 mls @ 100 mls/hr IVPB Q24H [facility] PRN Reason: Protocol Last Admin: 07/15/17 12:04 Dose: 100 mls/hr Vancomycin/Sodium Chloride (Vancomycin 1 Gm/Ns 200 Ml) 1 gm in 200 mls @ 133.333 mls/hr IVPB Q48H [facility] PRN Reason: Protocol Stop: 07/19/17 19:01 Last Admin: 07/14/17 19:07 Dose: 133.333 mls/hr Insulin Aspart (Novolog) 16 unit SC BID [facility] Last Admin: 07/15/17 11:00 Dose: Not Given Insulin Aspart (Novolog) 0 unit SC ACHS [facility] PRN Reason: Protocol Last Admin: 07/16/17 07:54 Dose: Not Given Insulin Glargine (Lantus) 16 unit SC HS [facility] Last Admin: 07/15/17 21:50 Dose: 16 unit Labetalol HCl (Trandate) 200 mg PO Q8H [facility] Last Admin: 07/16/17 10:04 Dose: 200 mg Metoclopramide HCl (Reglan) 10 mg IVP ACHS PRN PRN Reason: Nausea/Vomiting Last Admin: 07/16/17 10:09 Dose: 10 mg Morphine Sulfate (Morphine) 4 mg IV Q4 PRN PRN Reason: Pain, severe (8-10) Last Admin: 07/16/17 09:59 Dose: 4 mg Ondansetron HCl (Zofran Tab) 4 mg PO Q6H PRN PRN Reason: Nausea/Vomiting Last Admin: 07/11/17 19:51 Dose: 4 mg Pantoprazole Sodium (Protonix Ec Tab) 40 mg PO DAILY [facility] Last Admin: 07/16/17 10:04 Dose: 40 mg Saccharomyces Boulardii (Florastor) 250 mg PO BID [facility] Last Admin: 07/16/17 10:04 Dose: 250 mg Sertraline HCl (Zoloft) 50 mg PO DAILY [facility] Last Admin: 07/16/17 10:04 Dose: 50 mg Vitamin B Complex/Vit C/Folic Acid (Nephro-Rosario) 1 tab PO 0800 [facility] Last Admin: 07/16/17 08:47 Dose: Not Given - Labs Labs: 07/16/17 07:49 07/16/17 07:49 PT 14.4 SECONDS (9.7-12.2) H 07/05/17 23:07 INR 1.3 07/05/17 23:07 APTT 25 SECONDS (21-34) 07/05/17 23:07 - Constitutional Appears: No Acute Distress, Chronically Ill - Eye Exam Eye Exam: EOMI, Normal appearance, PERRL Pupil Exam: NORMAL ACCOMODATION, PERRL - ENT Exam ENT Exam: Mucous Membranes Moist, Normal Exam - Neck Exam Neck Exam: Full ROM, Normal Inspection. absent: Lymphadenopathy - Respiratory Exam Respiratory Exam: Clear to Ausculation Bilateral, NORMAL BREATHING PATTERN - Cardiovascular Exam Cardiovascular Exam: REGULAR RHYTHM, +S1, +S2. absent: Murmur - GI/Abdominal Exam GI & Abdominal Exam: Soft, Normal Bowel Sounds. absent: Tenderness - Extremities Exam Extremities Exam: Full ROM, Normal Capillary Refill, Normal Inspection. absent : Joint Swelling, Pedal Edema - Back Exam Back Exam: NORMAL INSPECTION - Neurological Exam Neurological Exam: Alert, Awake, CN II-XII Intact, Normal Gait, Oriented x3 - Psychiatric Exam Psychiatric exam: Normal Affect, Normal Mood Assessment and Plan - Assessment and Plan (Free Text) Assessment: LT FOOT O/M. CRF. Plan: STOOL FOR GUIAC. OBSERVE RENAL FUNCTION. IV ANTIBIOTICS.
[2017-07-16] MEDS: Cefepime IV 1 gm in Dextrose 1 GM/50 ML BAG IVPB SCH (14:17)
--- NOTE | 2017-07-16 15:23 | CP.PCM.PN ---
Subjective - Date & Time of Evaluation Date of Evaluation: 07/16/17 Time of Evaluation: 09:00 - Subjective Subjective: seen on rounds iv rx renewed Objective - Vital Signs/Intake and Output Vital Signs (last 24 hours): Temp Pulse Resp BP Pulse Ox 98.5 F 98 H 18 166/98 H 98 07/16/17 10:02 07/16/17 10:02 07/16/17 10:02 07/16/17 10:02 07/16/17 10:02 Intake and Output: 07/16/17 07/16/17 06:59 18:59 Intake Total 800 Output Total 1800 1500 Balance -1000 -1500 - Medications Medications: Current Medications Amlodipine Besylate (Norvasc) 10 mg PO DAILY [facility] Last Admin: 07/16/17 10:03 Dose: 10 mg Calcitriol (Rocaltrol) 0.25 mcg PO TTS [facility] Last Admin: 07/15/17 09:28 Dose: 0.25 mcg Epoetin Anival (Procrit) 10,000 unit SC TTS [facility] Last Admin: 07/15/17 10:58 Dose: Not Given Ferric Sodium Gluconate Complex (Ferrlecit) 125 mg IVPB DAILY [facility] Stop: 07/18/17 10:01 Last Admin: 07/16/17 10:04 Dose: 125 mg Home Med (Patient's Own Medication) 1 tab PO DAILY [facility] Last Admin: 07/16/17 10:05 Dose: 1 tab Cefepime HCl (Maxipime Iv 1 Gm Premix) 1 gm in 50 mls @ 100 mls/hr IVPB Q24H [facility] PRN Reason: Protocol Last Admin: 07/16/17 14:17 Dose: 100 mls/hr Vancomycin/Sodium Chloride (Vancomycin 1 Gm/Ns 200 Ml) 1 gm in 200 mls @ 133.333 mls/hr IVPB Q48H [facility] PRN Reason: Protocol Stop: 07/19/17 19:01 Last Admin: 07/14/17 19:07 Dose: 133.333 mls/hr Insulin Aspart (Novolog) 16 unit SC BID [facility] Last Admin: 07/15/17 11:00 Dose: Not Given Insulin Aspart (Novolog) 0 unit SC ACHS [facility] PRN Reason: Protocol Last Admin: 07/16/17 12:24 Dose: Not Given Insulin Glargine (Lantus) 16 unit SC HS [facility] Last Admin: 07/15/17 21:50 Dose: 16 unit Labetalol HCl (Trandate) 200 mg PO Q8H [facility] Last Admin: 07/16/17 10:04 Dose: 200 mg Metoclopramide HCl (Reglan) 10 mg IVP ACHS PRN PRN Reason: Nausea/Vomiting Last Admin: 07/16/17 10:09 Dose: 10 mg Morphine Sulfate (Morphine) 4 mg IV Q4 PRN PRN Reason: Pain, severe (8-10) Last Admin: 07/16/17 14:07 Dose: 4 mg Ondansetron HCl (Zofran Tab) 4 mg PO Q6H PRN PRN Reason: Nausea/Vomiting Last Admin: 07/11/17 19:51 Dose: 4 mg Pantoprazole Sodium (Protonix Ec Tab) 40 mg PO DAILY [facility] Last Admin: 07/16/17 10:04 Dose: 40 mg Saccharomyces Boulardii (Florastor) 250 mg PO BID [facility] Last Admin: 07/16/17 10:04 Dose: 250 mg Sertraline HCl (Zoloft) 50 mg PO DAILY [facility] Last Admin: 07/16/17 10:04 Dose: 50 mg Vitamin B Complex/Vit C/Folic Acid (Nephro-Rosario) 1 tab PO 0800 [facility] Last Admin: 07/16/17 08:47 Dose: Not Given - Labs Labs: 07/16/17 07:49 07/16/17 07:49 PT 14.4 SECONDS (9.7-12.2) H 07/05/17 23:07 INR 1.3 07/05/17 23:07 APTT 25 SECONDS (21-34) 07/05/17 23:07 - Constitutional Appears: Non-toxic, Chronically Ill - Head Exam Head Exam: NORMOCEPHALIC - Eye Exam Eye Exam: absent: Scleral icterus - ENT Exam ENT Exam: Mucous Membranes Dry - Neck Exam Neck Exam: absent: Lymphadenopathy - Respiratory Exam Respiratory Exam: Decreased Breath Sounds - Cardiovascular Exam Cardiovascular Exam: REGULAR RHYTHM - GI/Abdominal Exam GI & Abdominal Exam: Distended - Rectal Exam Rectal Exam: Deferred - Exam Exam: NORMAL INSPECTION - Extremities Exam Extremities Exam: Pedal Edema, Tenderness - Back Exam Back Exam: absent: CVA tenderness (L), paraspinal tenderness - Neurological Exam Neurological Exam: Alert, Awake, Oriented x3 Assessment and Plan (1) Gangrene associated with type 2 diabetes mellitus Status: Acute (2) Gangrene associated with type 2 diabetes mellitus Status: Acute (3) Diabetes mellitus type 1, uncontrolled, insulin dependent Status: Acute (4) Diabetic foot infection Status: Acute (5) Leg edema, left Status: Acute (6) HIV (human immunodeficiency virus infection) Status: Chronic (7) Obesities, morbid Status: Chronic (8) GAEL (acute kidney injury) Status: Acute (9) Abscess and cellulitis Status: Acute
--- NOTE | 2017-07-16 16:04 | CP.PCM.PN ---
Subjective - Date & Time of Evaluation Date of Evaluation: 07/16/17 Time of Evaluation: 16:00 - Subjective Subjective: DISCHARGE PLANNING DISCUSSED WITH DR. MCKEON, DR. RIVERA, AND DR. Alanna EZE. PER DR. MCKEON, WE WILL CONTINUE CEFEPIME 1GM IV DAIOY X8 WEEKS AND VANCO (DOSE TO BE DETERMINED IF OK PER DR. RIVERA). I DISCUSSED WITH DR. KWAN AND HE IS IN AGREEMENT WITH THE 8 WEEKS OF CEFEPIME AND VANCO 1 GM IV Q48 HOURS X8 WEEKS WITH WEEKLY CBC, BMP, AND RANDOM VANCO LEVELS. RX PRINTED BY ME AND LEFT IN PT'S CHART. ALSO DISCUSSED WITH DR. IRVING, POD RESIDENT, AND OK TO DO WEIGHT BEARING TO HEEL WITH PHY THER. DISCUSSED PLAN WITH Darrell ZEE; WILL D/C PT WEDNESDAY OR WEDNESDAY THE LATEST, [facility] DOES NOT START NEW PTTS OVER WEEKENDS. WILL F/U ON WEDNESDAY. NO FURTHER ORDERS. Objective - Vital Signs/Intake and Output Vital Signs (last 24 hours): Temp Pulse Resp BP Pulse Ox 98.5 F 98 H 18 166/98 H 98 07/16/17 10:02 07/16/17 10:02 07/16/17 10:02 07/16/17 10:02 07/16/17 10:02 Intake and Output: 07/16/17 07/16/17 06:59 18:59 Intake Total 800 Output Total 1800 1500 Balance -1000 -1500 - Medications Medications: Current Medications Amlodipine Besylate (Norvasc) 10 mg PO DAILY [facility] Last Admin: 07/16/17 10:03 Dose: 10 mg Calcitriol (Rocaltrol) 0.25 mcg PO TTS [facility] Last Admin: 07/15/17 09:28 Dose: 0.25 mcg Epoetin Anival (Procrit) 10,000 unit SC TTS [facility] Last Admin: 07/15/17 10:58 Dose: Not Given Ferric Sodium Gluconate Complex (Ferrlecit) 125 mg IVPB DAILY [facility] Stop: 07/18/17 10:01 Last Admin: 07/16/17 10:04 Dose: 125 mg Home Med (Patient's Own Medication) 1 tab PO DAILY [facility] Last Admin: 07/16/17 10:05 Dose: 1 tab Cefepime HCl (Maxipime Iv 1 Gm Premix) 1 gm in 50 mls @ 100 mls/hr IVPB Q24H [facility] PRN Reason: Protocol Last Admin: 07/16/17 14:17 Dose: 100 mls/hr Vancomycin/Sodium Chloride (Vancomycin 1 Gm/Ns 200 Ml) 1 gm in 200 mls @ 133.333 mls/hr IVPB Q48H [facility] PRN Reason: Protocol Stop: 07/19/17 19:01 Last Admin: 07/14/17 19:07 Dose: 133.333 mls/hr Insulin Aspart (Novolog) 16 unit SC BID [facility] Last Admin: 07/15/17 11:00 Dose: Not Given Insulin Aspart (Novolog) 0 unit SC ACHS [facility] PRN Reason: Protocol Last Admin: 07/16/17 12:24 Dose: Not Given Insulin Glargine (Lantus) 16 unit SC HS [facility] Last Admin: 07/15/17 21:50 Dose: 16 unit Labetalol HCl (Trandate) 200 mg PO Q8H [facility] Last Admin: 07/16/17 10:04 Dose: 200 mg Metoclopramide HCl (Reglan) 10 mg IVP ACHS PRN PRN Reason: Nausea/Vomiting Last Admin: 07/16/17 10:09 Dose: 10 mg Morphine Sulfate (Morphine) 4 mg IV Q4 PRN PRN Reason: Pain, severe (8-10) Last Admin: 07/16/17 14:07 Dose: 4 mg Ondansetron HCl (Zofran Tab) 4 mg PO Q6H PRN PRN Reason: Nausea/Vomiting Last Admin: 07/11/17 19:51 Dose: 4 mg Pantoprazole Sodium (Protonix Ec Tab) 40 mg PO DAILY [facility] Last Admin: 07/16/17 10:04 Dose: 40 mg Saccharomyces Boulardii (Florastor) 250 mg PO BID [facility] Last Admin: 07/16/17 10:04 Dose: 250 mg Sertraline HCl (Zoloft) 50 mg PO DAILY [facility] Last Admin: 07/16/17 10:04 Dose: 50 mg Vitamin B Complex/Vit C/Folic Acid (Nephro-Rosario) 1 tab PO 0800 [facility] Last Admin: 07/16/17 08:47 Dose: Not Given - Labs Labs: 07/16/17 07:49 07/16/17 07:49 PT 14.4 SECONDS (9.7-12.2) H 07/05/17 23:07 INR 1.3 07/05/17 23:07 APTT 25 SECONDS (21-34) 07/05/17 23:07
[2017-07-16] MEDS: Vancomycin 1 gm/NS 200 ml 1 GM/200 ML BAG IVPB SCH (18:08)
[2017-07-16] MEDS: (Lantus) Insulin Glargine, Recombinant SC SCH (22:26)
[2017-07-17] MEDS: Morphine 4 MG/ML VIAL IV PRN ×6 (02:11→23:49)
--- NOTE | 2017-07-17 05:01 | PN ---
DATE: 07/16/2017 FOLLOWUP RENAL CONSULTATION LOCATION: The patient is located in room 568, bed B. REQUESTED BY: Art Nathan MD REASON FOR FOLLOWUP: Acute renal failure, chronic kidney disease, anemia, secondary hyperparathyroidism. SUBJECTIVE: Mrs. Mazariegos is a 36-year-old young transgender female with a past medical history significant for hypertension, HIV positive, diabetes, Charcot's foot, osteomyelitis, anemia, proteinuria, chronic kidney disease, was admitted with fever, nausea, vomiting, status post debridement of the left foot and also status post transfusion of 2 units packed RBCs. The patient is not in acute distress. Denies any headache or dizziness. Denies any chest pain or palpitation. Denies any fever or cough today. No abdominal pain. No nausea, vomiting, or diarrhea. The patient is on IV antibiotics. PHYSICAL EXAMINATION: VITAL SIGNS: As follows: Blood pressure this morning 166/98, pulse 98, respirations 18, temperature 98.5, saturation 98%. Height 6 feet 3 inches, and weight is 280 pounds. GENERAL: Mrs. mazariegos is a 36-year-old young transgender female, well-built, well-nourished, not in distress. HEENT: Pupils normal and reactive to light and accommodation. Conjunctivae pink. Sclerae are anicteric. Tongue is moist. NECK: Trachea is midline. LUNGS: Symmetric on both sides. Bilateral breath sounds present. Clear on auscultation. CVS: [place] at the fifth intercostal space, midclavicular line. S1, S2 audible. No murmur or gallop. ABDOMEN: Normal in appearance, soft, tympanic. No guarding. No rigidity. No hepatosplenomegaly. ROAD OILER: The patient is alert, awake, and oriented x3. NEUROLOGIC: Nonfocal neuro examination. Cranial nerves II through XII grossly intact. Sensory and motor system is within normal limits. EXTREMITIES: No cyanosis, no clubbing, no edema on the right leg. The patient has a swelling of the left foot and Charcot's foot and also has swelling of the left leg up to the knee joint. CURRENT MEDICATIONS: Include as follows: Ferrous gluconate 125 mg IV piggyback daily, Florastor 250 mg p.o. b.i.d., Lantus 60 units subcu at bedtime, cefepime 1 gm daily, morphine sulfate 4 mg IV every 4 hours p.r.n., Nephro-Rosario 1 tablet daily, amlodipine 10 mg daily, NovoLog insulin per sliding scale, 1 tablet p.o. daily, Procrit 10,000 units three times a week, Protonix 40 mg p.o. daily, Reglan 10 mg IV at bedtime, and Rocaltrol 0.25 mcg three times a week, labetalol 200 mg p.o. every 8 hours, vancomycin 1 gm every 48 hours, Zofran 4 mg p.o. every 6 hours p.r.n., Zoloft 50 mg p.o. daily. LABORATORY DATA: Include as follows: As of 07/16/2017, WBC 12.5, hemoglobin 7.7, hematocrit 22.9, platelets 581. Sodium 139, potassium 5.6, chloride 104, 123, BUN 43, creatinine 3.2, glucose 125, calcium 8.6. ASSESSMENT AND PLAN: In summary, Mrs. Mazariegos is 36-year-old young transgender female with HIV positive, hypertension, diabetes, proteinuria, anemia, chronic kidney disease, Charcot's foot, osteomyelitis of the left foot, on IV antibiotics, meropenem, and vancomycin. 1. Acute renal failure on chronic kidney disease, stage 3, most likely secondary to acute tubular necrosis secondary to sepsis. 2. Nephrotic range proteinuria, most likely secondary to diabetic nephropathy, cannot rule out underlying human immunodeficiency, nephropathy, or focal segmental glomerulosclerosis. 3. Anemia secondary to renal failure, and also iron deficiency anemia. Continue Ferrlecit and Nephro-Rosario and Procrit. We will increase Procrit to 20,000 units three times a week and check stool for occult blood. 4. Hypertension, blood pressure is still high. Continue amlodipine and continue labetalol 200 mg p.o. every 8 hours, and low sodium, low potassium diet. 5. Osteomyelitis of the left foot, status post debridement. Continue antibiotics, vancomycin and meropenem. 6. Diabetes. Continue Lantus and follow-up Accu-Cheks. 7. Secondary hyperparathyroidism. Continue calcitriol three times a week, for possible discharge early next week once she is set up for outpatient IV antibiotic therapy. We will follow with you. Thank you for allowing me to participate in your patient's care. Overall prognosis is guarded. Case discussed with the nurse practitioner regarding the plan and also discussed with Dr. Art Nathan in rounds. Weston Brambila MD
[2017-07-17] MEDS: (Novolog) Insulin Aspart, Recombinant 100 u/ml 10 ml vial SC SCH ×4 (07:40→23:00)
[2017-07-17] MEDS: Multivitamin Vitamin B Complex (Nephro-Vite) Tab PO SCH (10:01)
[2017-07-17] MEDS: Ferric Sodium Gluconat Complex 62.5 mg/5 ml Vial IVPB SCH (10:01)
[2017-07-17] MEDS: Pantoprazole 40 mg EC Tab PO SCH (10:01)
[2017-07-17] MEDS: Saccharomyces Boulardi 250 mg Cap PO SCH ×2 (10:01→17:47)
[2017-07-17] MEDS: ODEFSEY PO SCH (10:02)
[2017-07-17] MEDS: Epoetin Alfa 10,000 unit/ml Dialysis SC SCH (10:02)
[2017-07-17 10:20] LABS: HEMOGLOBIN 7.7 g/dL (11.0-16.0); MEAN CELL VOLUME 86.7 fL (81.0-99.0); MEAN CORPUSCULAR HEMOGLOBIN 29.2 pg (27.0-31.0); MEAN CORPUSCULAR HGB CONC 33.6 g/dL (33.0-37.0); MEAN PLATELET VOLUME 6.6 fL (7.2-11.7); RBC 2.64 Mil/uL (3.80-5.20); RED CELL DISTRIBUTION WIDTH 15.8 % (11.5-14.5); WHITE BLOOD COUNT 11.5 K/uL (4.8-10.8)
[2017-07-17 10:43] LABS: CALCIUM 8.6 mg/dl (8.6-10.4)
--- NOTE | 2017-07-17 10:50 | CP.PCM.PN ---
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 AGREE WITH THE PLAN. FOR OUT PT ANTIBIOTIC THERAPY. ANRICIPATE DISCHARGE WEDNESDAY. AFEBRILE. BP STILL HIGH. Objective - Vital Signs/Intake and Output Vital Signs (last 24 hours): Temp Pulse Resp BP Pulse Ox 98.6 F 92 H 18 175/95 H 99 07/17/17 07:00 07/17/17 09:57 07/17/17 07:00 07/17/17 09:57 07/17/17 07:00 Intake and Output: 07/17/17 07/17/17 06:59 18:59 Intake Total 1600 Output Total 800 Balance 800 - Medications Medications: Current Medications Amlodipine Besylate (Norvasc) 10 mg PO DAILY [facility] Last Admin: 07/17/17 10:01 Dose: 10 mg Calcitriol (Rocaltrol) 0.25 mcg PO TTS [facility] Last Admin: 07/17/17 10:01 Dose: 0.25 mcg Epoetin Anival (Procrit) 10,000 unit SC TTS [facility] Last Admin: 07/17/17 10:02 Dose: 10,000 unit Ferric Sodium Gluconate Complex (Ferrlecit) 125 mg IVPB DAILY [facility] Stop: 07/18/17 10:01 Last Admin: 07/17/17 10:01 Dose: 125 mg Home Med (Patient's Own Medication) 1 tab PO DAILY [facility] Last Admin: 07/17/17 10:02 Dose: 1 tab Cefepime HCl (Maxipime Iv 1 Gm Premix) 1 gm in 50 mls @ 100 mls/hr IVPB Q24H [facility] PRN Reason: Protocol Last Admin: 07/16/17 14:17 Dose: 100 mls/hr Vancomycin/Sodium Chloride (Vancomycin 1 Gm/Ns 200 Ml) 1 gm in 200 mls @ 133.333 mls/hr IVPB Q48H [facility] PRN Reason: Protocol Stop: 07/19/17 19:01 Last Admin: 07/16/17 18:08 Dose: 133.333 mls/hr Insulin Aspart (Novolog) 16 unit SC BID [facility] Last Admin: 07/15/17 11:00 Dose: Not Given Insulin Aspart (Novolog) 0 unit SC ACHS [facility] PRN Reason: Protocol Last Admin: 07/17/17 07:40 Dose: Not Given Insulin Glargine (Lantus) 16 unit SC HS [facility] Last Admin: 07/16/17 22:26 Dose: 16 unit Labetalol HCl (Trandate) 200 mg PO Q8H [facility] Last Admin: 07/17/17 10:01 Dose: 200 mg Metoclopramide HCl (Reglan) 10 mg IVP ACHS PRN PRN Reason: Nausea/Vomiting Last Admin: 07/16/17 10:09 Dose: 10 mg Morphine Sulfate (Morphine) 4 mg IV Q4 PRN PRN Reason: Pain, severe (8-10) Last Admin: 07/17/17 09:58 Dose: 4 mg Ondansetron HCl (Zofran Tab) 4 mg PO Q6H PRN PRN Reason: Nausea/Vomiting Last Admin: 07/11/17 19:51 Dose: 4 mg Pantoprazole Sodium (Protonix Ec Tab) 40 mg PO DAILY [facility] Last Admin: 07/17/17 10:01 Dose: 40 mg Saccharomyces Boulardii (Florastor) 250 mg PO BID [facility] Last Admin: 07/17/17 10:01 Dose: 250 mg Sertraline HCl (Zoloft) 50 mg PO DAILY [facility] Last Admin: 07/17/17 10:01 Dose: 50 mg Vitamin B Complex/Vit C/Folic Acid (Nephro-Rosario) 1 tab PO 0800 [facility] Last Admin: 07/17/17 10:01 Dose: 1 tab - Labs Labs: 07/17/17 10:17 07/17/17 10:17 PT 14.4 SECONDS (9.7-12.2) H 07/05/17 23:07 INR 1.3 07/05/17 23:07 APTT 25 SECONDS (21-34) 07/05/17 23:07 - Constitutional Appears: No Acute Distress, Chronically Ill - Eye Exam Eye Exam: EOMI, Normal appearance, PERRL Pupil Exam: NORMAL ACCOMODATION, PERRL - ENT Exam ENT Exam: Mucous Membranes Moist, Normal Exam - Neck Exam Neck Exam: Full ROM, Normal Inspection. absent: Lymphadenopathy - Respiratory Exam Respiratory Exam: Clear to Ausculation Bilateral, NORMAL BREATHING PATTERN - Cardiovascular Exam Cardiovascular Exam: REGULAR RHYTHM, +S1, +S2. absent: Murmur - GI/Abdominal Exam GI & Abdominal Exam: Soft, Normal Bowel Sounds. absent: Tenderness - Neurological Exam Neurological Exam: Alert, Awake, CN II-XII Intact, Normal Gait, Oriented x3 - Psychiatric Exam Psychiatric exam: Normal Affect, Normal Mood Assessment and Plan - Assessment and Plan (Free Text) Assessment: SAME. Plan: CT PRESENT TREATMENT.
[2017-07-17] MEDS: Cefepime IV 1 gm in Dextrose 1 GM/50 ML BAG IVPB SCH (11:35)
[2017-07-17] MEDS ORDERED: EPOETIN ALFA 10,000 UNIT/ML ML SC ONE (14:43)
--- NOTE | 2017-07-17 14:46 | CP.PCM.PN ---
Subjective - Date & Time of Evaluation Date of Evaluation: 07/17/17 Time of Evaluation: 14:45 - Subjective Subjective: pt is seen and examined, follow up consult is dictated #[id number] add lasix 40 mg po daily Objective - Vital Signs/Intake and Output Vital Signs (last 24 hours): Temp Pulse Resp BP Pulse Ox 98.6 F 92 H 18 175/95 H 99 07/17/17 07:00 07/17/17 09:57 07/17/17 07:00 07/17/17 09:57 07/17/17 07:00 Intake and Output: 07/17/17 07/17/17 06:59 18:59 Intake Total 1600 550 Output Total 800 Balance 800 550 - Medications Medications: Current Medications Amlodipine Besylate (Norvasc) 10 mg PO DAILY [facility] Last Admin: 07/17/17 10:01 Dose: 10 mg Calcitriol (Rocaltrol) 0.25 mcg PO TTS [facility] Last Admin: 07/17/17 10:01 Dose: 0.25 mcg Epoetin Anival (Procrit) 10,000 unit SC ONCE ONE Stop: 07/17/17 14:44 Epoetin Anival (Procrit) 20,000 unit SC TTS [facility] Ferric Sodium Gluconate Complex (Ferrlecit) 125 mg IVPB DAILY [facility] Stop: 07/18/17 10:01 Last Admin: 07/17/17 10:01 Dose: 125 mg Home Med (Patient's Own Medication) 1 tab PO DAILY [facility] Last Admin: 07/17/17 10:02 Dose: 1 tab Cefepime HCl (Maxipime Iv 1 Gm Premix) 1 gm in 50 mls @ 100 mls/hr IVPB Q24H [facility] PRN Reason: Protocol Last Admin: 07/17/17 11:35 Dose: 100 mls/hr Vancomycin/Sodium Chloride (Vancomycin 1 Gm/Ns 200 Ml) 1 gm in 200 mls @ 133.333 mls/hr IVPB Q48H [facility] PRN Reason: Protocol Stop: 07/19/17 19:01 Last Admin: 07/16/17 18:08 Dose: 133.333 mls/hr Insulin Aspart (Novolog) 16 unit SC BID [facility] Last Admin: 07/15/17 11:00 Dose: Not Given Insulin Aspart (Novolog) 0 unit SC ACHS [facility] PRN Reason: Protocol Last Admin: 07/17/17 11:18 Dose: Not Given Insulin Glargine (Lantus) 16 unit SC HS [facility] Last Admin: 07/16/17 22:26 Dose: 16 unit Labetalol HCl (Trandate) 200 mg PO Q8H [facility] Last Admin: 07/17/17 10:01 Dose: 200 mg Metoclopramide HCl (Reglan) 10 mg IVP ACHS PRN PRN Reason: Nausea/Vomiting Last Admin: 07/16/17 10:09 Dose: 10 mg Morphine Sulfate (Morphine) 4 mg IV Q4 PRN PRN Reason: Pain, severe (8-10) Last Admin: 07/17/17 13:59 Dose: 4 mg Ondansetron HCl (Zofran Tab) 4 mg PO Q6H PRN PRN Reason: Nausea/Vomiting Last Admin: 07/11/17 19:51 Dose: 4 mg Pantoprazole Sodium (Protonix Ec Tab) 40 mg PO DAILY [facility] Last Admin: 07/17/17 10:01 Dose: 40 mg Saccharomyces Boulardii (Florastor) 250 mg PO BID [facility] Last Admin: 07/17/17 10:01 Dose: 250 mg Sertraline HCl (Zoloft) 50 mg PO DAILY [facility] Last Admin: 07/17/17 10:01 Dose: 50 mg Vitamin B Complex/Vit C/Folic Acid (Nephro-Rosario) 1 tab PO 0800 [facility] Last Admin: 07/17/17 10:01 Dose: 1 tab - Labs Labs: 07/17/17 10:17 07/17/17 10:17 PT 14.4 SECONDS (9.7-12.2) H 07/05/17 23:07 INR 1.3 07/05/17 23:07 APTT 25 SECONDS (21-34) 07/05/17 23:07
--- NOTE | 2017-07-17 15:54 | CP.PCM.PN ---
Subjective - Date & Time of Evaluation Date of Evaluation: 07/17/17 Time of Evaluation: 13:00 - Subjective Subjective: Podiatry Progress Note- Dr. Reynolds/Dr. Coy 36 year old female seen and evaluated at bedside 5 days s/p I&D in OR for L diabetic foot infection with Dr. Figueroa. Patient seen resting comfortably in bed, in NAD, and AA0x3. Patient reports she is doing well. Denies acute overnight events. Complains of same pain to the left LE, reports have improved since admission. Denies f/n/v/c/sob/cp at this time. No pain with calf squeeze. No other complaints. Objective - Vital Signs/Intake and Output Vital Signs (last 24 hours): Temp Pulse Resp BP Pulse Ox 98.6 F 92 H 18 175/95 H 99 07/17/17 07:00 07/17/17 09:57 07/17/17 07:00 07/17/17 09:57 07/17/17 07:00 Intake and Output: 07/17/17 07/17/17 06:59 18:59 Intake Total 1600 550 Output Total 800 Balance 800 550 - Medications Medications: Current Medications Amlodipine Besylate (Norvasc) 10 mg PO DAILY [facility] Last Admin: 07/17/17 10:01 Dose: 10 mg Calcitriol (Rocaltrol) 0.25 mcg PO TTS [facility] Last Admin: 07/17/17 10:01 Dose: 0.25 mcg Epoetin Anival (Procrit) 20,000 unit SC TTS [facility] Ferric Sodium Gluconate Complex (Ferrlecit) 125 mg IVPB DAILY [facility] Stop: 07/18/17 10:01 Last Admin: 07/17/17 10:01 Dose: 125 mg Home Med (Patient's Own Medication) 1 tab PO DAILY [facility] Last Admin: 07/17/17 10:02 Dose: 1 tab Cefepime HCl (Maxipime Iv 1 Gm Premix) 1 gm in 50 mls @ 100 mls/hr IVPB Q24H [facility] PRN Reason: Protocol Last Admin: 07/17/17 11:35 Dose: 100 mls/hr Vancomycin/Sodium Chloride (Vancomycin 1 Gm/Ns 200 Ml) 1 gm in 200 mls @ 133.333 mls/hr IVPB Q48H [facility] PRN Reason: Protocol Stop: 07/19/17 19:01 Last Admin: 07/16/17 18:08 Dose: 133.333 mls/hr Insulin Aspart (Novolog) 16 unit SC BID [facility] Last Admin: 07/15/17 11:00 Dose: Not Given Insulin Aspart (Novolog) 0 unit SC ACHS [facility] PRN Reason: Protocol Last Admin: 07/17/17 11:18 Dose: Not Given Insulin Glargine (Lantus) 16 unit SC HS [facility] Last Admin: 07/16/17 22:26 Dose: 16 unit Labetalol HCl (Trandate) 200 mg PO Q8H [facility] Last Admin: 07/17/17 10:01 Dose: 200 mg Metoclopramide HCl (Reglan) 10 mg IVP ACHS PRN PRN Reason: Nausea/Vomiting Last Admin: 07/16/17 10:09 Dose: 10 mg Morphine Sulfate (Morphine) 4 mg IV Q4 PRN PRN Reason: Pain, severe (8-10) Last Admin: 07/17/17 13:59 Dose: 4 mg Ondansetron HCl (Zofran Tab) 4 mg PO Q6H PRN PRN Reason: Nausea/Vomiting Last Admin: 07/11/17 19:51 Dose: 4 mg Pantoprazole Sodium (Protonix Ec Tab) 40 mg PO DAILY [facility] Last Admin: 07/17/17 10:01 Dose: 40 mg Saccharomyces Boulardii (Florastor) 250 mg PO BID [facility] Last Admin: 07/17/17 10:01 Dose: 250 mg Sertraline HCl (Zoloft) 50 mg PO DAILY [facility] Last Admin: 07/17/17 10:01 Dose: 50 mg Vitamin B Complex/Vit C/Folic Acid (Nephro-Rosario) 1 tab PO 0800 [facility] Last Admin: 07/17/17 10:01 Dose: 1 tab - Labs Labs: 07/17/17 10:17 07/17/17 10:17 PT 14.4 SECONDS (9.7-12.2) H 07/05/17 23:07 INR 1.3 07/05/17 23:07 APTT 25 SECONDS (21-34) 07/05/17 23:07 - Constitutional Appears: Well, Non-toxic, No Acute Distress - Extremities Exam Extremities Exam: absent: Calf Tenderness Additional comments: LLE: light sero-sanguinous drainage noted to outer bandage VASC- DP pulse faintly palpable, skin temp runs warm to warm, cap refill < 4 sec , 3+ pitting edema is noted to dorsum of foot DERM- there is a full-thickness ulceration noted to dorsal aspect of foot which measures 0.5x4.0x1.5cm (no active drainage, neg purulence, neg malodor with mixed fibrogranular base which tracks proximally 0.5cm , macerated border) , there is a 2nd full-thickness ulceration noted to dorsal-lateral aspect of 5th metatarsal amputation site measures 1.0x4.0x1.5cm with mixed fibrogranular base and somewhat macerated border (no active drainage, no purulence, neg malodor, neg tracking), third ulceration noted just plantar to the 2nd wound measures 0.5x1.0x1.0 cm (mixed fibrogranular base, macerated border, neg tracking, minimal serosang drainage), superficial ulceration noted to distal lateral leg measures approx. 3.0x5.0x0.3cm with mixed fibrogranular base, neg PTB, neg fluctuance, gross lichenification of pedal skin NEURO- gross and protective pedal sensation are diminished MSK- tenderness noted to palp of wound sites - Neurological Exam Neurological Exam: Alert, Awake, Oriented x3 - Psychiatric Exam Psychiatric exam: Normal Affect, Normal Mood Assessment and Plan - Assessment and Plan (Free Text) Assessment: 36 yo female POD #5 I&D L foot 2/2 diabetic foot infection (improving) Plan: Pt S&E at bedside d/w Dr. Figueroa pt is cleared for PWB to L heel as tolerated with surgical shoe Wounds flushed with sterile saline and redressed with betadine soaked gauze, extra ABD's, kerlix c/w IV abx per ID (cefepime and vanco) will require 6-8 weeks IV abx Pt will need to f/u with Dr. Coy in the wound care center next wednesday stable, will follow
[2017-07-17] MEDS: (Lantus) Insulin Glargine, Recombinant SC SCH (22:33)
--- NOTE | 2017-07-18 03:16 | PN ---
DATE: 07/17/2017 The patient is located in room 568, bed B. REQUESTED BY: Dr. Art Nathan. REASON FOR FOLLOWUP: Acute renal failure, chronic kidney disease, anemia. SUBJECTIVE: Mrs. Johnson is a 36-year-old young transgender female with a past medical history significant for longstanding hypertension, diabetes, Charcot foot, nephrotic range proteinuria, anemia, osteomyelitis of the foot, was admitted with fever, nausea, vomiting on admission, and subsequently, the patient was found to have worsening renal function, anemia requiring transfusion. The patient is feeling better today, not in distress. Good urine output. No chest pain or palpitation. No fever. No cough. No abdominal pain. No nausea, vomiting, diarrhea. PHYSICAL EXAMINATION: VITAL SIGNS: Blood pressure 177/100, pulse 91, respirations 18, temperature 98.6, saturation 99%. Height 6 feet 3 inches and weight is 280 pounds. GENERAL: Mrs. Johnson is a 36-year-old young transgender female, looks male in external appearance, well built, well nourished, not in distress. HEENT: Pupils normal and reactive to light and accommodation. Conjunctivae pink. Sclerae anicteric. Tongue is moist. Trachea is midline. LUNGS: Symmetric on both sides. Bilateral breath sounds present. Clear to auscultation. CVS: [place] at the fifth intercostal space, midclavicular area. S1 and S2 audible. No murmur or gallop. ABDOMEN: Normal in appearance, soft, tympanic. No guarding. No rigidity. No hepatosplenomegaly. HOSPICE [employer]ICAL MARKETER: The patient is alert, awake, and oriented x3. Nonfocal neuro examination. Cranial nerves II through XII grossly intact. Sensory and motor system is within normal limits. EXTREMITIES: No cyanosis, no clubbing, no edema on the right leg. The patient has swelling of the left leg and left foot. The patient also has a dressing to the left foot. MEDICATIONS: Her current medications include as follows; Ferrlecit 125 mg IV daily, Florastor 250 mg p.o. b.i.d., Lantus 60 units subcu at bedtime, cefepime 1 gm daily, morphine sulfate 4 mg IV every 4 hours, Nephro-Rosario 1 tablet daily, amlodipine 10 mg daily, NovoLog for sliding scale, Odefsey 1 tablet p.o. daily, Procrit 20,000 units three times a week, Protonix 40 mg daily, Reglan 10 mg daily, Rocaltrol 0.25 mcg p.o. three times a week, labetalol 200 mg p.o. every 8 hours, vancomycin 1 gm daily, Zoloft 4 mg p.o. every 6 hours, sertraline 50 mg p.o. daily. LABORATORY DATA: Her laboratory data include as follows: WBC 11.5, hemoglobin 7.7, hematocrit is 22.9, platelets 538. Sodium 138, potassium 5.1, chloride 107, CO2 is 24, BUN 39, creatinine 3.3, glucose 110, calcium 8.6. Stool for occult blood is negative. Vancomycin random level is 10.97. ASSESSMENT/PLAN: In summary, Mrs. Johnson is a 36-year-old young transgender female with hypertension, diabetes, human immunodeficiency virus positive, anemia, proteinuria, and chronic renal failure, being treated for osteomyelitis of the left foot and Charcot foot. 1. Acute renal failure on chronic kidney disease, most likely secondary to left foot infection and sepsis. Renal function is slightly better. 2. Status post hyperkalemia. 3. Hypertension, uncontrolled. Increase the labetalol to 400 mg p.o. every 8 hours and add Lasix 20 mg p.o. b.i.d. for better control of hypertension. 4. Uncontrolled diabetes. 5. Anemia. 6. Second hyperparathyroidism. 7. Charcot's foot and osteomyelitis. Continue vancomycin and get Zosyn. Continue Procrit, Ferrlecit, and then calcitriol. We will follow with you. Thank you for allowing me to participate in your patient's care. Weston Brambila MD
[2017-07-18] MEDS: Morphine 4 MG/ML VIAL IV PRN ×6 (03:22→23:48)
[2017-07-18] MEDS: (Novolog) Insulin Aspart, Recombinant 100 u/ml 10 ml vial SC SCH ×4 (07:47→21:40)
[2017-07-18 07:50] LABS: MEAN CORPUSCULAR HEMOGLOBIN 29.3 pg (27.0-31.0); MEAN CORPUSCULAR HGB CONC 33.6 g/dL (33.0-37.0); MEAN PLATELET VOLUME 6.5 fL (7.2-11.7); RBC 2.74 Mil/uL (3.80-5.20); RED CELL DISTRIBUTION WIDTH 15.5 % (11.5-14.5); WHITE BLOOD COUNT 12.4 K/uL (4.8-10.8)
[2017-07-18 08:01] LABS: CALCIUM 8.8 mg/dl (8.6-10.4)
[2017-07-18] MEDS: Pantoprazole 40 mg EC Tab PO SCH (10:04)
[2017-07-18] MEDS: Saccharomyces Boulardi 250 mg Cap PO SCH ×2 (10:04→18:37)
[2017-07-18] MEDS: ODEFSEY PO SCH (10:05)
[2017-07-18] MEDS: Multivitamin Vitamin B Complex (Nephro-Vite) Tab PO SCH (10:05)
[2017-07-18] MEDS: Ferric Sodium Gluconat Complex 62.5 mg/5 ml Vial IVPB SCH (10:05)
[2017-07-18] MEDS: Cefepime IV 1 gm in Dextrose 1 GM/50 ML BAG IVPB SCH (11:23)
--- NOTE | 2017-07-18 16:22 | CP.PCM.PN ---
Subjective - Date & Time of Evaluation Date of Evaluation: 07/18/17 Time of Evaluation: 16:21 - Subjective Subjective: CONDITION REMAINS SAME. Objective - Vital Signs/Intake and Output Vital Signs (last 24 hours): Temp Pulse Resp BP Pulse Ox 98.5 F 93 H 18 143/88 96 07/18/17 15:00 07/18/17 15:00 07/18/17 15:00 07/18/17 15:00 07/18/17 15:00 Intake and Output: 07/18/17 07/18/17 06:59 18:59 Output Total 750 Balance -750 - Medications Medications: Current Medications Amlodipine Besylate (Norvasc) 10 mg PO DAILY [facility] Last Admin: 07/18/17 10:05 Dose: 10 mg Calcitriol (Rocaltrol) 0.25 mcg PO TTS [facility] Last Admin: 07/17/17 10:01 Dose: 0.25 mcg Epoetin Anival (Procrit) 20,000 unit SC TTS [facility] Home Med (Patient's Own Medication) 1 tab PO DAILY [facility] Last Admin: 07/18/17 10:05 Dose: 1 tab Cefepime HCl (Maxipime Iv 1 Gm Premix) 1 gm in 50 mls @ 100 mls/hr IVPB Q24H [facility] PRN Reason: Protocol Last Admin: 07/18/17 11:23 Dose: 100 mls/hr Vancomycin/Sodium Chloride (Vancomycin 1 Gm/Ns 200 Ml) 1 gm in 200 mls @ 133.333 mls/hr IVPB Q48H [facility] PRN Reason: Protocol Stop: 07/19/17 19:01 Last Admin: 07/16/17 18:08 Dose: 133.333 mls/hr Insulin Aspart (Novolog) 16 unit SC BID [facility] Last Admin: 07/15/17 11:00 Dose: Not Given Insulin Aspart (Novolog) 0 unit SC ACHS [facility] PRN Reason: Protocol Last Admin: 07/18/17 11:24 Dose: Not Given Insulin Glargine (Lantus) 16 unit SC HS [facility] Last Admin: 07/17/17 22:33 Dose: 16 unit Labetalol HCl (Trandate) 200 mg PO Q8H [facility] Last Admin: 07/18/17 10:04 Dose: 200 mg Metoclopramide HCl (Reglan) 10 mg IVP ACHS PRN PRN Reason: Nausea/Vomiting Last Admin: 07/18/17 15:25 Dose: 10 mg Morphine Sulfate (Morphine) 4 mg IV Q4 PRN PRN Reason: Pain, severe (8-10) Last Admin: 07/18/17 15:25 Dose: 4 mg Ondansetron HCl (Zofran Tab) 4 mg PO Q6H PRN PRN Reason: Nausea/Vomiting Last Admin: 07/11/17 19:51 Dose: 4 mg Pantoprazole Sodium (Protonix Ec Tab) 40 mg PO DAILY [facility] Last Admin: 07/18/17 10:04 Dose: 40 mg Saccharomyces Boulardii (Florastor) 250 mg PO BID [facility] Last Admin: 07/18/17 10:04 Dose: 250 mg Sertraline HCl (Zoloft) 50 mg PO DAILY [facility] Last Admin: 07/18/17 10:05 Dose: 50 mg Vitamin B Complex/Vit C/Folic Acid (Nephro-Rosario) 1 tab PO 0800 [facility] Last Admin: 07/18/17 10:05 Dose: 1 tab - Labs Labs: 07/18/17 07:41 07/18/17 07:41 PT 14.4 SECONDS (9.7-12.2) H 07/05/17 23:07 INR 1.3 07/05/17 23:07 APTT 25 SECONDS (21-34) 07/05/17 23:07 - Constitutional Appears: No Acute Distress, Chronically Ill - Eye Exam Eye Exam: EOMI, Normal appearance, PERRL Pupil Exam: NORMAL ACCOMODATION, PERRL - ENT Exam ENT Exam: Mucous Membranes Moist, Normal Exam - Neck Exam Neck Exam: Full ROM, Normal Inspection. absent: Lymphadenopathy - Respiratory Exam Respiratory Exam: Clear to Ausculation Bilateral, NORMAL BREATHING PATTERN - Cardiovascular Exam Cardiovascular Exam: REGULAR RHYTHM, +S1, +S2. absent: Murmur - Extremities Exam Extremities Exam: Full ROM, Normal Capillary Refill, Normal Inspection. absent : Joint Swelling, Pedal Edema - Neurological Exam Neurological Exam: Alert, Awake, CN II-XII Intact, Normal Gait, Oriented x3 Assessment and Plan - Assessment and Plan (Free Text) Assessment: OM LT FOOT CRF. Plan: CT PRESENT TREATMENT.
--- NOTE | 2017-07-18 16:34 | CP.PCM.PN ---
Subjective - Date & Time of Evaluation Date of Evaluation: 07/18/17 Time of Evaluation: 16:59 - Subjective Subjective: Podiatry Progress Note- Dr. Reynolds/Dr. Coy 36 year old female seen and evaluated at bedside 6 days s/p I&D in OR for L diabetic foot infection with Dr. Figuerao. Patient seen resting comfortably in bed, in NAD, and AA0x3. Patient reports that she is feeling tired today. Denies acute overnight events. Complains of same pain to the left LE, reports have improved since admission. Denies f/n/v/c/sob/cp at this time. No pain with calf squeeze. No other complaints. Objective - Vital Signs/Intake and Output Vital Signs (last 24 hours): Temp Pulse Resp BP Pulse Ox 98.5 F 93 H 18 143/88 96 07/18/17 15:00 07/18/17 15:00 07/18/17 15:00 07/18/17 15:00 07/18/17 15:00 Intake and Output: 07/18/17 07/18/17 06:59 18:59 Output Total 750 Balance -750 - Medications Medications: Current Medications Amlodipine Besylate (Norvasc) 10 mg PO DAILY [facility] Last Admin: 07/18/17 10:05 Dose: 10 mg Calcitriol (Rocaltrol) 0.25 mcg PO TTS [facility] Last Admin: 07/17/17 10:01 Dose: 0.25 mcg Epoetin Anival (Procrit) 20,000 unit SC TTS [facility] Home Med (Patient's Own Medication) 1 tab PO DAILY [facility] Last Admin: 07/18/17 10:05 Dose: 1 tab Cefepime HCl (Maxipime Iv 1 Gm Premix) 1 gm in 50 mls @ 100 mls/hr IVPB Q24H [facility] PRN Reason: Protocol Last Admin: 07/18/17 11:23 Dose: 100 mls/hr Vancomycin/Sodium Chloride (Vancomycin 1 Gm/Ns 200 Ml) 1 gm in 200 mls @ 133.333 mls/hr IVPB Q48H [facility] PRN Reason: Protocol Stop: 07/19/17 19:01 Last Admin: 07/16/17 18:08 Dose: 133.333 mls/hr Insulin Aspart (Novolog) 16 unit SC BID [facility] Last Admin: 07/15/17 11:00 Dose: Not Given Insulin Aspart (Novolog) 0 unit SC ACHS [facility] PRN Reason: Protocol Last Admin: 07/18/17 11:24 Dose: Not Given Insulin Glargine (Lantus) 16 unit SC HS [facility] Last Admin: 07/17/17 22:33 Dose: 16 unit Labetalol HCl (Trandate) 200 mg PO Q8H [facility] Last Admin: 07/18/17 10:04 Dose: 200 mg Metoclopramide HCl (Reglan) 10 mg IVP ACHS PRN PRN Reason: Nausea/Vomiting Last Admin: 07/18/17 15:25 Dose: 10 mg Morphine Sulfate (Morphine) 4 mg IV Q4 PRN PRN Reason: Pain, severe (8-10) Last Admin: 07/18/17 15:25 Dose: 4 mg Ondansetron HCl (Zofran Tab) 4 mg PO Q6H PRN PRN Reason: Nausea/Vomiting Last Admin: 07/11/17 19:51 Dose: 4 mg Pantoprazole Sodium (Protonix Ec Tab) 40 mg PO DAILY [facility] Last Admin: 07/18/17 10:04 Dose: 40 mg Saccharomyces Boulardii (Florastor) 250 mg PO BID [facility] Last Admin: 07/18/17 10:04 Dose: 250 mg Sertraline HCl (Zoloft) 50 mg PO DAILY [facility] Last Admin: 07/18/17 10:05 Dose: 50 mg Vitamin B Complex/Vit C/Folic Acid (Nephro-Rosario) 1 tab PO 0800 [facility] Last Admin: 07/18/17 10:05 Dose: 1 tab - Labs Labs: 07/18/17 07:41 07/18/17 07:41 PT 14.4 SECONDS (9.7-12.2) H 07/05/17 23:07 INR 1.3 07/05/17 23:07 APTT 25 SECONDS (21-34) 07/05/17 23:07 - Constitutional Appears: Well, Non-toxic, No Acute Distress - Extremities Exam Extremities Exam: absent: Calf Tenderness Additional comments: LLE: light sero-sanguinous drainage noted to outer bandage VASC- DP pulse faintly palpable, skin temp runs warm to warm, cap refill < 4 sec , 3+ pitting edema is noted to dorsum of foot DERM- there is a full-thickness ulceration noted to dorsal aspect of foot which measures 0.5x4.0x1.5cm (no active drainage, neg purulence, neg malodor with mixed fibrogranular base which tracks proximally 0.5cm , macerated border) , there is a 2nd full-thickness ulceration noted to dorsal-lateral aspect of 5th metatarsal amputation site measures 1.0x4.0x1.5cm with mixed fibrogranular base and somewhat macerated border (no active drainage, no purulence, neg malodor, neg tracking), third ulceration noted just plantar to the 2nd wound measures 0.5x1.0x1.0 cm (mixed fibrogranular base, macerated border, neg tracking, minimal serosang drainage), superficial ulceration noted to distal lateral leg measures approx. 3.0x5.0x0.3cm with mixed fibrogranular base, neg PTB, neg fluctuance, gross lichenification of pedal skin NEURO- gross and protective pedal sensation are diminished MSK- tenderness noted to palp of wound sites - Neurological Exam Neurological Exam: Alert, Awake Neuro motor strength exam: Left Upper Extremity: 0, Right Upper Extremity: 0, Left Lower Extremity: 0, Right Lower Extremity: 0 Assessment and Plan - Assessment and Plan (Free Text) Assessment: 36 yo female POD #5 I&D L foot 2/2 diabetic foot infection (improving) Plan: Pt S&E at bedside d/w Dr. Figueroa pt is cleared for PWB to L heel as tolerated with surgical shoe Leukocytosis at 12.4, afebrile Wounds flushed with sterile saline and redressed with betadine soaked gauze, extra ABD's, kerlix c/w IV abx per ID (cefepime and vanco) will require 6-8 weeks IV abx Pt will need to f/u with Dr. Coy in the wound care center next wednesday stable, will follow
--- NOTE | 2017-07-18 17:58 | CP.PCM.PN ---
Subjective - Date & Time of Evaluation Date of Evaluation: 07/18/17 Time of Evaluation: 10:00 - Subjective Subjective: 36 year old female seen and evaluated at bedside 6 days s/p I&D in OR for L diabetic foot infection with Dr. Figueroa. Patient seen resting comfortably in bed, in NAD, and AA0x3. Objective - Vital Signs/Intake and Output Vital Signs (last 24 hours): Temp Pulse Resp BP Pulse Ox 98.5 F 93 H 18 143/88 96 07/18/17 15:00 07/18/17 15:00 07/18/17 15:00 07/18/17 15:00 07/18/17 15:00 Intake and Output: 07/18/17 07/18/17 06:59 18:59 Output Total 750 Balance -750 - Medications Medications: Current Medications Amlodipine Besylate (Norvasc) 10 mg PO DAILY [facility] Last Admin: 07/18/17 10:05 Dose: 10 mg Artificial Tears (Artificial Tears) 0 ml OU QID PRN PRN Reason: DRY EYES Calcitriol (Rocaltrol) 0.25 mcg PO TTS [facility] Last Admin: 07/17/17 10:01 Dose: 0.25 mcg Epoetin Anival (Procrit) 20,000 unit SC TTS [facility] Home Med (Patient's Own Medication) 1 tab PO DAILY [facility] Last Admin: 07/18/17 10:05 Dose: 1 tab Cefepime HCl (Maxipime Iv 1 Gm Premix) 1 gm in 50 mls @ 100 mls/hr IVPB Q24H [facility] PRN Reason: Protocol Last Admin: 07/18/17 11:23 Dose: 100 mls/hr Vancomycin/Sodium Chloride (Vancomycin 1 Gm/Ns 200 Ml) 1 gm in 200 mls @ 133.333 mls/hr IVPB Q48H [facility] PRN Reason: Protocol Stop: 07/19/17 19:01 Last Admin: 07/16/17 18:08 Dose: 133.333 mls/hr Insulin Aspart (Novolog) 16 unit SC BID [facility] Last Admin: 07/15/17 11:00 Dose: Not Given Insulin Aspart (Novolog) 0 unit SC ACHS [facility] PRN Reason: Protocol Last Admin: 07/18/17 11:24 Dose: Not Given Insulin Glargine (Lantus) 16 unit SC HS [facility] Last Admin: 07/17/17 22:33 Dose: 16 unit Labetalol HCl (Trandate) 200 mg PO Q8H [facility] Last Admin: 07/18/17 10:04 Dose: 200 mg Metoclopramide HCl (Reglan) 10 mg IVP ACHS PRN PRN Reason: Nausea/Vomiting Last Admin: 07/18/17 15:25 Dose: 10 mg Morphine Sulfate (Morphine) 4 mg IV Q4 PRN PRN Reason: Pain, severe (8-10) Last Admin: 07/18/17 15:25 Dose: 4 mg Ondansetron HCl (Zofran Tab) 4 mg PO Q6H PRN PRN Reason: Nausea/Vomiting Last Admin: 07/11/17 19:51 Dose: 4 mg Pantoprazole Sodium (Protonix Ec Tab) 40 mg PO DAILY [facility] Last Admin: 07/18/17 10:04 Dose: 40 mg Saccharomyces Boulardii (Florastor) 250 mg PO BID [facility] Last Admin: 07/18/17 10:04 Dose: 250 mg Sertraline HCl (Zoloft) 50 mg PO DAILY [facility] Last Admin: 07/18/17 10:05 Dose: 50 mg Vitamin B Complex/Vit C/Folic Acid (Nephro-Rosario) 1 tab PO 0800 [facility] Last Admin: 07/18/17 10:05 Dose: 1 tab - Labs Labs: 07/18/17 07:41 07/18/17 07:41 PT 14.4 SECONDS (9.7-12.2) H 07/05/17 23:07 INR 1.3 07/05/17 23:07 APTT 25 SECONDS (21-34) 07/05/17 23:07 - Constitutional Appears: Non-toxic, Chronically Ill - Head Exam Head Exam: NORMOCEPHALIC - Eye Exam Eye Exam: PERRL. absent: Scleral icterus - ENT Exam ENT Exam: Mucous Membranes Dry - Neck Exam Neck Exam: absent: Lymphadenopathy - Respiratory Exam Respiratory Exam: Decreased Breath Sounds - Cardiovascular Exam Cardiovascular Exam: REGULAR RHYTHM - GI/Abdominal Exam GI & Abdominal Exam: Distended - Rectal Exam Rectal Exam: Deferred - Exam Exam: NORMAL INSPECTION - Extremities Exam Extremities Exam: absent: Pedal Edema - Back Exam Back Exam: absent: CVA tenderness (L), CVA tenderness (R) - Neurological Exam Neurological Exam: Alert, Awake, Oriented x3 Neuro motor strength exam: Left Upper Extremity: 3, Right Upper Extremity: 3, Left Lower Extremity: 3, Right Lower Extremity: 3 - Psychiatric Exam Psychiatric exam: Depressed - Skin Skin Exam: Dry Assessment and Plan (1) Gangrene associated with type 2 diabetes mellitus Status: Acute (2) Gangrene associated with type 2 diabetes mellitus Status: Acute (3) Diabetes mellitus type 1, uncontrolled, insulin dependent Status: Acute (4) Diabetic foot infection Status: Acute (5) Leg edema, left Status: Acute (6) HIV (human immunodeficiency virus infection) Status: Chronic (7) Obesities, morbid Status: Chronic (8) GAEL (acute kidney injury) Status: Acute (9) Abscess and cellulitis Status: Acute - Assessment and Plan (Free Text) Assessment: cont iv antibiotics and wound care
[2017-07-18] MEDS: Aritificial Tears (15ml) OU PRN (18:37)
[2017-07-18] MEDS: Vancomycin 1 gm/NS 200 ml 1 GM/200 ML BAG IVPB SCH (18:37)
--- NOTE | 2017-07-18 19:23 | CP.PCM.PN ---
Subjective - Date & Time of Evaluation Date of Evaluation: 07/18/17 Time of Evaluation: 19:23 - Subjective Subjective: pt is seen and examined, follow up consult is dictated #[id number] Objective - Vital Signs/Intake and Output Vital Signs (last 24 hours): Temp Pulse Resp BP Pulse Ox 98.5 F 93 H 18 143/88 96 07/18/17 15:00 07/18/17 15:00 07/18/17 15:00 07/18/17 15:00 07/18/17 15:00 Intake and Output: 07/18/17 07/19/17 18:59 06:59 Output Total 750 400 Balance -750 -400 - Medications Medications: Current Medications Amlodipine Besylate (Norvasc) 10 mg PO DAILY [facility] Last Admin: 07/18/17 10:05 Dose: 10 mg Artificial Tears (Artificial Tears) 0 ml OU QID PRN PRN Reason: DRY EYES Last Admin: 07/18/17 18:37 Dose: 1 drop Calcitriol (Rocaltrol) 0.25 mcg PO TTS [facility] Last Admin: 07/17/17 10:01 Dose: 0.25 mcg Epoetin Anival (Procrit) 20,000 unit SC TTS [facility] Home Med (Patient's Own Medication) 1 tab PO DAILY [facility] Last Admin: 07/18/17 10:05 Dose: 1 tab Cefepime HCl (Maxipime Iv 1 Gm Premix) 1 gm in 50 mls @ 100 mls/hr IVPB Q24H [facility] PRN Reason: Protocol Last Admin: 07/18/17 11:23 Dose: 100 mls/hr Vancomycin/Sodium Chloride (Vancomycin 1 Gm/Ns 200 Ml) 1 gm in 200 mls @ 133.333 mls/hr IVPB Q48H [facility] PRN Reason: Protocol Stop: 07/19/17 19:01 Last Admin: 07/18/17 18:37 Dose: 133.333 mls/hr Insulin Aspart (Novolog) 16 unit SC BID [facility] Last Admin: 07/15/17 11:00 Dose: Not Given Insulin Aspart (Novolog) 0 unit SC ACHS [facility] PRN Reason: Protocol Last Admin: 07/18/17 11:24 Dose: Not Given Insulin Glargine (Lantus) 16 unit SC HS [facility] Last Admin: 07/17/17 22:33 Dose: 16 unit Labetalol HCl (Trandate) 300 mg PO Q8H [facility] Metoclopramide HCl (Reglan) 10 mg IVP ACHS PRN PRN Reason: Nausea/Vomiting Last Admin: 07/18/17 15:25 Dose: 10 mg Morphine Sulfate (Morphine) 4 mg IV Q4 PRN PRN Reason: Pain, severe (8-10) Last Admin: 07/18/17 15:25 Dose: 4 mg Ondansetron HCl (Zofran Tab) 4 mg PO Q6H PRN PRN Reason: Nausea/Vomiting Last Admin: 07/11/17 19:51 Dose: 4 mg Pantoprazole Sodium (Protonix Ec Tab) 40 mg PO DAILY [facility] Last Admin: 07/18/17 10:04 Dose: 40 mg Saccharomyces Boulardii (Florastor) 250 mg PO BID [facility] Last Admin: 07/18/17 18:37 Dose: 250 mg Sertraline HCl (Zoloft) 50 mg PO DAILY [facility] Last Admin: 07/18/17 10:05 Dose: 50 mg Vitamin B Complex/Vit C/Folic Acid (Nephro-Rosario) 1 tab PO 0800 [facility] Last Admin: 07/18/17 10:05 Dose: 1 tab - Labs Labs: 07/18/17 07:41 07/18/17 07:41 PT 14.4 SECONDS (9.7-12.2) H 07/05/17 23:07 INR 1.3 07/05/17 23:07 APTT 25 SECONDS (21-34) 07/05/17 23:07
[2017-07-18] MEDS: (Lantus) Insulin Glargine, Recombinant SC SCH (21:41)
[2017-07-19] MEDS: Morphine 4 MG/ML VIAL IV PRN ×3 (03:36→11:51)
--- NOTE | 2017-07-19 04:16 | PN ---
DATE: 07/18/2017 FOLLOWUP RENAL CONSULTATION LOCATION: The patient is located in room 568, bed B. REQUESTED BY: Art Nathan MD REASON FOR FOLLOWUP: Acute renal failure, chronic kidney disease, anemia, for followup. HISTORY OF PRESENT ILLNESS: Mrs. Johnson is a 36 years old young transgender female with a past medical history significant for hypertension, diabetes, HIV positive with Charcot's left foot and osteomyelitis who was admitted with fever, cough, nausea and vomiting. Subsequently, the patient was found to have elevated BUN and creatinine and left foot infection and anemia, status post transfusion of 2 units of packed RBC during this admission and also worsening renal function, status post hyperkalemia, being treated for osteomyelitis, status post debridement of the wound left foot. The patient denies any complaints today. PHYSICAL EXAMINATION: VITAL SIGNS: As follows, blood pressure 143/88, pulse 93, respirations 18, temperature 98.5, saturation 96%, height 6 feet 3 inches, and weight is 280 pounds. HEENT: On physical exam, Mrs. Johnson is 36 years old young transgender female, well-built, well-nourished, not in distress. HEENT: Pupils normal and reactive to light and accommodation. Conjunctivae pink. Sclerae anicteric. Tongue is moist. Trachea is midline. LUNGS: Symmetric on both sides. Bilateral breath sounds present. Clear to auscultation. CVS: [place] at the fifth intercostal space, midclavicular line. S1, S2 audible. No murmur or gallop. ABDOMEN: Normal in appearance. Soft, tympanic. No guarding. No rigidity. No hepatosplenomegaly. 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 Nonfocal neuro examination. Cranial nerves II through XII grossly intact. Sensory and motor system is within normal limits. EXTREMITIES : No cyanosis, no clubbing, no edema of the right leg. The patient has a swelling of the left leg and dressing to the left foot. MEDICATIONS: His current medications include as follows, Artificial Tears, Florastor 250 mg p.o. b.i.d., Lantus 16 units subcu at bedtime, cefepime 1 gm daily, morphine sulfate 4 mg IV every 4 hours, Nephro-Rosario 1 tablet daily, amlodipine 10 mg daily, NovoLog on hold, Odefsey 1 tablet daily, Epogen 10,000 units three times a week, Protonix 40 mg p.o. daily, Reglan 10 mg IV push p.r.n., Rocaltrol 0.25 mcg three times a week, labetalol 200 mg p.o. every 8 hours, vancomycin 1 gm daily, Zofran 4 mg p.o. every 6 hours, Zoloft 50 mg p.o. daily. LABORATORY DATA: Include as follows, as of 07/18/2017, WBC 12.4, hemoglobin 8, hematocrit is 23.8, platelets 581. Sodium 137, potassium 5, chloride 106, CO of 24, BUN 40, creatinine 3.5, glucose 105, calcium 8.8. IMPRESSION: In summary, Mrs. Johnson is 36 years old young transgender female with hypertension, diabetes, human immunodeficiency virus positive, Charcot's foot, osteomyelitis of the left foot, low hemoglobin and hematocrit, increased BUN and creatinine, massive proteinuria, and status post hyperkalemia. 1. Acute renal failure on chronic kidney disease, most likely secondary to secondary to acute tubular necrosis and infection of the left foot. 2. Uncontrolled hypertension. 3. Uncontrolled diabetes. 4. Anemia secondary to iron-deficiency and renal failure and infection. Continue amlodipine 10 mg daily and will increase labetalol to 300 mg p.o. every 8 hours. Continue Procrit. Continue Nephro-Rosario. 5. Secondary hyperparathyroidism. Continue calcitriol three times a week. 6. Osteomyelitis of the left foot. Continue antibiotics, meropenem 1 gm and also vancomycin as per ID recommendations. Renal function is relatively stable at this time. Thank you for allowing me to participate in your patient's care. Weston Brambila MD
[2017-07-19 07:55] LABS: MEAN CELL VOLUME 88.4 fL (81.0-99.0); MEAN CORPUSCULAR HEMOGLOBIN 29.5 pg (27.0-31.0); MEAN CORPUSCULAR HGB CONC 33.3 g/dL (33.0-37.0); MEAN PLATELET VOLUME 6.8 fL (7.2-11.7); RBC 2.71 Mil/uL (3.80-5.20); RED CELL DISTRIBUTION WIDTH 15.7 % (11.5-14.5); WHITE BLOOD COUNT 12.3 K/uL (4.8-10.8)
[2017-07-19] MEDS: (Novolog) Insulin Aspart, Recombinant 100 u/ml 10 ml vial SC SCH ×4 (08:13→21:23)
[2017-07-19 08:16] LABS: CALCIUM 8.7 mg/dl (8.6-10.4)
[2017-07-19] MEDS: Saccharomyces Boulardi 250 mg Cap PO SCH ×3 (09:27→17:00)
[2017-07-19] MEDS: Multivitamin Vitamin B Complex (Nephro-Vite) Tab PO SCH (09:28)
[2017-07-19] MEDS: Pantoprazole 40 mg EC Tab PO SCH (09:28)
[2017-07-19] MEDS: ODEFSEY PO SCH (09:29)
[2017-07-19] MEDS ORDERED: Sod Polystyrene Sulf 15 gm/60 ml Susp PO ONE (10:00)
[2017-07-19] MEDS: Cefepime IV 1 gm in Dextrose 1 GM/50 ML BAG IVPB SCH (11:54)
--- NOTE | 2017-07-19 12:51 | CP.PCM.PN ---
Subjective - Date & Time of Evaluation Date of Evaluation: 07/19/17 Time of Evaluation: 12:49 - Subjective Subjective: condition remains same. afebrile. bun 44/creat 4.3 k 5.9 bp fluctuating. lt foot same. Objective - Vital Signs/Intake and Output Vital Signs (last 24 hours): Temp Pulse Resp BP Pulse Ox 98.3 F 90 20 142/76 95 07/19/17 07:40 07/19/17 07:40 07/19/17 07:40 07/19/17 07:40 07/19/17 07:40 Intake and Output: 07/19/17 07/19/17 06:59 18:59 Output Total 400 1000 Balance -400 -1000 - Medications Medications: Current Medications Amlodipine Besylate (Norvasc) 10 mg PO DAILY [facility] Last Admin: 07/19/17 09:28 Dose: 10 mg Artificial Tears (Artificial Tears) 0 ml OU QID PRN PRN Reason: DRY EYES Last Admin: 07/18/17 18:37 Dose: 1 drop Calcitriol (Rocaltrol) 0.25 mcg PO TTS [facility] Last Admin: 07/17/17 10:01 Dose: 0.25 mcg Epoetin Anival (Procrit) 20,000 unit SC TTS [facility] Home Med (Patient's Own Medication) 1 tab PO DAILY [facility] Last Admin: 07/19/17 09:29 Dose: 1 tab Cefepime HCl (Maxipime Iv 1 Gm Premix) 1 gm in 50 mls @ 100 mls/hr IVPB Q24H [facility] PRN Reason: Protocol Last Admin: 07/19/17 11:54 Dose: 100 mls/hr Vancomycin/Sodium Chloride (Vancomycin 1 Gm/Ns 200 Ml) 1 gm in 200 mls @ 133.333 mls/hr IVPB Q48H [facility] PRN Reason: Protocol Stop: 07/19/17 19:01 Last Admin: 07/18/17 18:37 Dose: 133.333 mls/hr Insulin Aspart (Novolog) 16 unit SC BID [facility] Last Admin: 07/15/17 11:00 Dose: Not Given Insulin Aspart (Novolog) 0 unit SC ACHS [facility] PRN Reason: Protocol Last Admin: 07/19/17 08:13 Dose: Not Given Insulin Glargine (Lantus) 16 unit SC HS [facility] Last Admin: 07/18/17 21:41 Dose: 16 unit Labetalol HCl (Trandate) 300 mg PO Q8H [facility] Last Admin: 07/19/17 11:55 Dose: 300 mg Metoclopramide HCl (Reglan) 10 mg IVP ACHS PRN PRN Reason: Nausea/Vomiting Last Admin: 07/19/17 09:40 Dose: 10 mg Morphine Sulfate (Morphine) 4 mg IV Q4 PRN PRN Reason: Pain, severe (8-10) Last Admin: 07/19/17 11:51 Dose: 4 mg Ondansetron HCl (Zofran Tab) 4 mg PO Q6H PRN PRN Reason: Nausea/Vomiting Last Admin: 07/11/17 19:51 Dose: 4 mg Pantoprazole Sodium (Protonix Ec Tab) 40 mg PO DAILY [facility] Last Admin: 07/19/17 09:28 Dose: 40 mg Saccharomyces Boulardii (Florastor) 250 mg PO BID [facility] Last Admin: 07/19/17 09:27 Dose: 250 mg Sertraline HCl (Zoloft) 50 mg PO DAILY [facility] Last Admin: 07/19/17 09:28 Dose: 50 mg Vitamin B Complex/Vit C/Folic Acid (Nephro-Rosario) 1 tab PO 0800 [facility] Last Admin: 07/19/17 09:28 Dose: 1 tab - Labs Labs: 07/19/17 07:48 07/19/17 07:48 PT 14.4 SECONDS (9.7-12.2) H 07/05/17 23:07 INR 1.3 07/05/17 23:07 APTT 25 SECONDS (21-34) 07/05/17 23:07 - Constitutional Appears: No Acute Distress, Chronically Ill - Eye Exam Eye Exam: EOMI, Normal appearance, PERRL Pupil Exam: NORMAL ACCOMODATION, PERRL - ENT Exam ENT Exam: Mucous Membranes Moist, Normal Exam - Neck Exam Neck Exam: Full ROM, Normal Inspection. absent: Lymphadenopathy - Respiratory Exam Respiratory Exam: Clear to Ausculation Bilateral, NORMAL BREATHING PATTERN - Cardiovascular Exam Cardiovascular Exam: REGULAR RHYTHM, +S1, +S2. absent: Murmur - GI/Abdominal Exam GI & Abdominal Exam: Soft, Normal Bowel Sounds. absent: Tenderness - Neurological Exam Neurological Exam: Alert, Awake, CN II-XII Intact, Normal Gait, Oriented x3 - Psychiatric Exam Psychiatric exam: Normal Affect, Normal Mood Assessment and Plan - Assessment and Plan (Free Text) Assessment: om lt foot. crf. htn. Plan: ct present management. for out pt abts.
[2017-07-19 15:04] LABS: ALBUMIN 39.7 Relative %; ALPHA-1 GLOBULIN 5.4 Relative %
[2017-07-19 15:23] LABS: BARBITURATES, UR NEGATIVE (NEGATIVE); BENZODIAZEPINES, UR NEGATIVE (NEGATIVE); PHENCYCLIDINE, UR NEGATIVE (NEGATIVE)
[2017-07-19 15:36] LABS: OPIATES, UR POSITIVE (NEGATIVE)
[2017-07-19] MEDS: Morphine 4 MG/ML VIAL IVP PRN ×2 (16:00→20:13)
--- NOTE | 2017-07-19 18:41 | CP.PCM.PN ---
Subjective - Date & Time of Evaluation Date of Evaluation: 07/19/17 Time of Evaluation: 18:40 - Subjective Subjective: pt is seen and examined, follow up consult is dictated #[id number] Objective - Vital Signs/Intake and Output Vital Signs (last 24 hours): Temp Pulse Resp BP Pulse Ox 98.3 F 85 20 160/80 H 95 07/19/17 15:00 07/19/17 15:00 07/19/17 15:00 07/19/17 15:00 07/19/17 15:00 Intake and Output: 07/19/17 07/19/17 06:59 18:59 Intake Total 840 Output Total 400 1000 Balance -400 -160 - Medications Medications: Current Medications Amlodipine Besylate (Norvasc) 10 mg PO DAILY [facility] Last Admin: 07/19/17 09:28 Dose: 10 mg Artificial Tears (Artificial Tears) 0 ml OU QID PRN PRN Reason: DRY EYES Last Admin: 07/18/17 18:37 Dose: 1 drop Calcitriol (Rocaltrol) 0.25 mcg PO TTS [facility] Last Admin: 07/17/17 10:01 Dose: 0.25 mcg Epoetin Anival (Procrit) 20,000 unit SC TTS [facility] Home Med (Patient's Own Medication) 1 tab PO DAILY [facility] Last Admin: 07/19/17 09:29 Dose: 1 tab Cefepime HCl (Maxipime Iv 1 Gm Premix) 1 gm in 50 mls @ 100 mls/hr IVPB Q24H [facility] PRN Reason: Protocol Last Admin: 07/19/17 11:54 Dose: 100 mls/hr Vancomycin/Sodium Chloride (Vancomycin 1 Gm/Ns 200 Ml) 1 gm in 200 mls @ 133.333 mls/hr IVPB Q48H [facility] PRN Reason: Protocol Stop: 07/19/17 19:01 Last Admin: 07/18/17 18:37 Dose: 133.333 mls/hr Insulin Aspart (Novolog) 16 unit SC BID [facility] Last Admin: 07/15/17 11:00 Dose: Not Given Insulin Aspart (Novolog) 0 unit SC ACHS [facility] PRN Reason: Protocol Last Admin: 07/19/17 16:37 Dose: Not Given Insulin Glargine (Lantus) 16 unit SC HS [facility] Last Admin: 07/18/17 21:41 Dose: 16 unit Labetalol HCl (Trandate) 300 mg PO Q8H [facility] Last Admin: 07/19/17 11:55 Dose: 300 mg Metoclopramide HCl (Reglan) 10 mg IVP ACHS PRN PRN Reason: Nausea/Vomiting Last Admin: 07/19/17 09:40 Dose: 10 mg Morphine Sulfate (Morphine) 4 mg IVP Q4 PRN PRN Reason: Pain, severe (8-10) Last Admin: 07/19/17 16:00 Dose: 4 mg Ondansetron HCl (Zofran Tab) 4 mg PO Q6H PRN PRN Reason: Nausea/Vomiting Last Admin: 07/11/17 19:51 Dose: 4 mg Pantoprazole Sodium (Protonix Ec Tab) 40 mg PO DAILY [facility] Last Admin: 07/19/17 09:28 Dose: 40 mg Saccharomyces Boulardii (Florastor) 250 mg PO BID [facility] Last Admin: 07/19/17 17:00 Dose: 250 mg Sertraline HCl (Zoloft) 50 mg PO DAILY [facility] Last Admin: 07/19/17 09:28 Dose: 50 mg Vitamin B Complex/Vit C/Folic Acid (Nephro-Rosario) 1 tab PO 0800 [facility] Last Admin: 07/19/17 09:28 Dose: 1 tab - Labs Labs: 07/19/17 07:48 07/19/17 07:48 PT 14.4 SECONDS (9.7-12.2) H 07/05/17 23:07 INR 1.3 07/05/17 23:07 APTT 25 SECONDS (21-34) 07/05/17 23:07
[2017-07-19] MEDS: Sodium Chloride 0.45% 1,000 ML IV SCH (19:04)
[2017-07-19] MEDS: Aritificial Tears (15ml) OU PRN (20:17)
[2017-07-19] MEDS: (Lantus) Insulin Glargine, Recombinant SC SCH (21:29)
[2017-07-20] MEDS: Morphine 4 MG/ML VIAL IVP PRN ×4 (00:05→12:41)
--- NOTE | 2017-07-20 03:30 | PN ---
DATE: 07/19/2017 FOLLOWUP RENAL CONSULTATION LOCATION: Te patient is located in room 568, bed B. REQUESTED BY: Art Nathan MD REASON FOR FOLLOWUP: Acute renal failure, hyperkalemia, uncontrolled hypertension. HISTORY OF PRESENT ILLNESS: Mrs. Johnson is a 36 years old young transgender female with a past medical history significant for longstanding hypertension, diabetes, HIV positive, nephrotic range proteinuria, anemia, second hyperparathyroidism, chronic kidney disease who was admitted with nonhealing left leg infection and also Charcot's foot, fever, nausea, vomiting. The patient is being treated for possible osteomyelitis of the left foot, status post debridement, and also status post transfusion of packed RBC for low H and H. The patient is noncompliant with diet, and the patient is being treated for hyperkalemia. His potassium this morning is 5.9. The patient is not in acute distress. Denies any chest pain or palpitation. Denies any fever, cough. No abdominal pain. No nausea, vomiting, diarrhea. PHYSICAL EXAMINATION: Vital signs: As follows, blood pressure this afternoon 160/80, pulse 85, respirations 20, temperature 98.3, saturation 95%. Height 6 feet 3 inches and weight is 280 pounds. GENERAL: On physical exam, Mrs. Johnson is a 36-year-old transgender female, well-built, well-nourished, not in distress. HEENT: Pupils normal and reactive to light and accommodation. Conjunctiva pink. Sclerae anicteric. Tongue is moist. Trachea is midline. LUNGS: Symmetric on both sides. Bilateral breath sounds present. Clear to auscultation. CVS: [place] at the fifth intercostal space, midclavicular line. S1, S2 audible. No murmur or gallop. ABDOMEN: Normal in appearance, soft, tympanic. No guarding. No rigidity. No hepatosplenomegaly. 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 Nonfocal neuro examination. Cranial nerves II through XII grossly intact. Sensory and motor system is within normal limits. EXTREMITIES: No cyanosis, no clubbing, no edema on the right leg. The patient's left leg is swollen and also the patient has a dressing to the left foot. MEDICATIONS: His current medications include as follows, Artificial Tears, Florastor 250 mg p.o. b.i.d., Lantus 16 units subcu at bedtime, cefepime 1 gm daily, morphine 4 mg IV every 4 hours p.r.n., Nephro-Rosario 1 tablet daily, amlodipine 10 mg p.o. daily, NovoLog, Odefsey 1 tablet daily, Epogen 20,000 units subcu three times a week, Protonix 40 mg p.o. daily, and Reglan 10 mg IV at a.c. and at bedtime, Rocaltrol 0.25 mcg three times a week, and labetalol 300 mg p.o. every 8 hours, Zofran 4 mg p.o. every 4 hours p.r.n., and Zoloft 50 mg p.o. daily. LABORATORY DATA: Include as follows: WBC is 12.3, hemoglobin 8, hematocrit is 23.9, platelets 558. Sodium 136, potassium 5.9, chloride 105, CO2 of 22, BUN 44, creatinine 4.3, glucose 149, calcium 8.7. Urine toxic screen is positive for opiates. IMPRESSION: In summary, Mrs. Johnson is 36 years old young transgender female with human immunodeficiency virus positive, hypertension, diabetes, anemia, proteinuria, chronic kidney disease, secondary hyperparathyroidism, status post transfusion with increasing BUN, creatinine, and Charcot's foot and osteomyelitis. 1. Acute renal failure, on chronic kidney disease, rule out acute tubular necrosis, rule out acute interstitial nephritis secondary to antibiotic. 2. Hypertension. Blood pressure is still uncontrolled. 3. Anemia secondary to renal failure, rule out iron-deficiency anemia. 5. Second hyperparathyroidism. Continue Rocaltrol 0.25 mg three times a week. 6. Anemia. Continue Epogen 20,000 units and also Nephro-Rosario 1 tablet p.o. daily. 7. Hyperkalemia, secondary to renal function and also noncompliance with diet. We will give Kayexalate 30 gm p.o. x1 dose and we will start IV fluids, half-normal saline at 70 mL/hour, and repeat BMP in a.m., and also we will place him on a low-sodium, low-potassium diet. Discussed with the patient regarding directed complaints. We will follow with you. Thank you for allowing me to participate in your patient's care. Continue antibiotics as per ID recommendation. Weston Brambila MD
[2017-07-20 07:36] VITALS: BP 151/85; PULSE 87; RESP 18; TEMP 98.4; O2SAT 97
[2017-07-20] MEDS: (Novolog) Insulin Aspart, Recombinant 100 u/ml 10 ml vial SC SCH ×2 (07:49→11:34)
[2017-07-20 08:27] LABS: CALCIUM 8.9 mg/dl (8.6-10.4)
[2017-07-20] MEDS: Saccharomyces Boulardi 250 mg Cap PO SCH (09:04)
[2017-07-20] MEDS: Pantoprazole 40 mg EC Tab PO SCH (09:04)
[2017-07-20] MEDS: Multivitamin Vitamin B Complex (Nephro-Vite) Tab PO SCH (09:04)
[2017-07-20] MEDS: Sodium Chloride 0.45% 1,000 ML IV SCH (09:11)
[2017-07-20] MEDS: ODEFSEY PO SCH (09:12)
[2017-07-20] MEDS ORDERED: Epoetin Alfa 10,000 unit/ml Dialysis SC SCH (10:00)
--- NOTE | 2017-07-20 10:58 | CP.PCM.PN ---
Subjective - Date & Time of Evaluation Date of Evaluation: 07/20/17 Time of Evaluation: 08:00 - Subjective Subjective: pain less no fever Objective - Vital Signs/Intake and Output Vital Signs (last 24 hours): Temp Pulse Resp BP Pulse Ox 98.4 F 87 18 151/85 H 97 07/20/17 07:00 07/20/17 07:00 07/20/17 07:00 07/20/17 07:00 07/20/17 07:00 Intake and Output: 07/20/17 07/20/17 06:59 18:59 Intake Total 1280 Output Total 800 500 Balance 480 -500 - Medications Medications: Current Medications Amlodipine Besylate (Norvasc) 10 mg PO DAILY [facility] Last Admin: 07/20/17 09:04 Dose: 10 mg Artificial Tears (Artificial Tears) 0 ml OU QID PRN PRN Reason: DRY EYES Last Admin: 07/19/17 20:17 Dose: 1 drop Calcitriol (Rocaltrol) 0.25 mcg PO TTS [facility] Last Admin: 07/20/17 09:04 Dose: 0.25 mcg Epoetin Anival (Procrit) 20,000 unit SC TTS [facility] Last Admin: 07/20/17 09:04 Dose: 20,000 unit Home Med (Patient's Own Medication) 1 tab PO DAILY [facility] Last Admin: 07/20/17 09:12 Dose: 1 tab Cefepime HCl (Maxipime Iv 1 Gm Premix) 1 gm in 50 mls @ 100 mls/hr IVPB Q24H [facility] PRN Reason: Protocol Last Admin: 07/19/17 11:54 Dose: 100 mls/hr Sodium Chloride (Sodium Chloride 0.45%) 1,000 mls @ 70 mls/hr IV .[id number] [facility] Last Admin: 07/20/17 09:11 Dose: Not Given Insulin Aspart (Novolog) 16 unit SC BID [facility] Last Admin: 07/15/17 11:00 Dose: Not Given Insulin Aspart (Novolog) 0 unit SC ACHS [facility] PRN Reason: Protocol Last Admin: 07/20/17 07:49 Dose: Not Given Insulin Glargine (Lantus) 16 unit SC HS [facility] Last Admin: 07/19/17 21:29 Dose: 16 unit Labetalol HCl (Trandate) 300 mg PO Q8H [facility] Last Admin: 07/20/17 04:29 Dose: 300 mg Metoclopramide HCl (Reglan) 10 mg IVP ACHS PRN PRN Reason: Nausea/Vomiting Last Admin: 07/19/17 09:40 Dose: 10 mg Morphine Sulfate (Morphine) 4 mg IVP Q4 PRN PRN Reason: Pain, severe (8-10) Last Admin: 07/20/17 09:04 Dose: 4 mg Ondansetron HCl (Zofran Tab) 4 mg PO Q6H PRN PRN Reason: Nausea/Vomiting Last Admin: 07/11/17 19:51 Dose: 4 mg Pantoprazole Sodium (Protonix Ec Tab) 40 mg PO DAILY [facility] Last Admin: 07/20/17 09:04 Dose: 40 mg Saccharomyces Boulardii (Florastor) 250 mg PO BID [facility] Last Admin: 07/20/17 09:04 Dose: 250 mg Sertraline HCl (Zoloft) 50 mg PO DAILY [facility] Last Admin: 07/20/17 09:04 Dose: 50 mg Vitamin B Complex/Vit C/Folic Acid (Nephro-Rosario) 1 tab PO 0800 [facility] Last Admin: 07/20/17 09:04 Dose: 1 tab - Labs Labs: 07/19/17 07:48 07/20/17 07:53 PT 14.4 SECONDS (9.7-12.2) H 07/05/17 23:07 INR 1.3 07/05/17 23:07 APTT 25 SECONDS (21-34) 07/05/17 23:07 - Constitutional Appears: Non-toxic, Chronically Ill - Head Exam Head Exam: NORMOCEPHALIC - Eye Exam Eye Exam: PERRL - ENT Exam ENT Exam: Mucous Membranes Dry - Neck Exam Neck Exam: absent: Lymphadenopathy - Respiratory Exam Respiratory Exam: Decreased Breath Sounds - Cardiovascular Exam Cardiovascular Exam: REGULAR RHYTHM - GI/Abdominal Exam GI & Abdominal Exam: Distended - Rectal Exam Rectal Exam: Deferred Assessment and Plan (1) Gangrene associated with type 2 diabetes mellitus Status: Acute (2) Gangrene associated with type 2 diabetes mellitus Status: Acute (3) Diabetes mellitus type 1, uncontrolled, insulin dependent Status: Acute (4) Diabetic foot infection Status: Acute (5) Leg edema, left Status: Acute (6) HIV (human immunodeficiency virus infection) Status: Chronic (7) Obesities, morbid Status: Chronic (8) GAEL (acute kidney injury) Status: Acute (9) Abscess and cellulitis Status: Acute
[2017-07-20] MEDS: Cefepime IV 1 gm in Dextrose 1 GM/50 ML BAG IVPB SCH (11:37)
--- NOTE | 2017-07-20 12:10 | CP.PCM.PN ---
Subjective - Date & Time of Evaluation Date of Evaluation: 07/20/17 Time of Evaluation: 12:09 - Subjective Subjective: pt is seen and examined, follow up consult is dictated #[id number] Objective - Vital Signs/Intake and Output Vital Signs (last 24 hours): Temp Pulse Resp BP Pulse Ox 98.4 F 87 18 151/85 H 97 07/20/17 07:00 07/20/17 07:00 07/20/17 07:00 07/20/17 07:00 07/20/17 07:00 Intake and Output: 07/20/17 07/20/17 06:59 18:59 Intake Total 1280 Output Total 800 500 Balance 480 -500 - Medications Medications: Current Medications Amlodipine Besylate (Norvasc) 10 mg PO DAILY [facility] Last Admin: 07/20/17 09:04 Dose: 10 mg Artificial Tears (Artificial Tears) 0 ml OU QID PRN PRN Reason: DRY EYES Last Admin: 07/19/17 20:17 Dose: 1 drop Calcitriol (Rocaltrol) 0.25 mcg PO TTS [facility] Last Admin: 07/20/17 09:04 Dose: 0.25 mcg Epoetin Anival (Procrit) 20,000 unit SC TTS [facility] Last Admin: 07/20/17 09:04 Dose: 20,000 unit Home Med (Patient's Own Medication) 1 tab PO DAILY [facility] Last Admin: 07/20/17 09:12 Dose: 1 tab Cefepime HCl (Maxipime Iv 1 Gm Premix) 1 gm in 50 mls @ 100 mls/hr IVPB Q24H [facility] PRN Reason: Protocol Last Admin: 07/20/17 11:37 Dose: 100 mls/hr Sodium Chloride (Sodium Chloride 0.45%) 1,000 mls @ 70 mls/hr IV .[id number] [facility] Last Admin: 07/20/17 09:11 Dose: Not Given Insulin Aspart (Novolog) 16 unit SC BID [facility] Last Admin: 07/15/17 11:00 Dose: Not Given Insulin Aspart (Novolog) 0 unit SC ACHS [facility] PRN Reason: Protocol Last Admin: 07/20/17 11:34 Dose: Not Given Insulin Glargine (Lantus) 16 unit SC HS [facility] Last Admin: 07/19/17 21:29 Dose: 16 unit Labetalol HCl (Trandate) 300 mg PO Q8H [facility] Last Admin: 07/20/17 11:37 Dose: 300 mg Metoclopramide HCl (Reglan) 10 mg IVP ACHS PRN PRN Reason: Nausea/Vomiting Last Admin: 07/19/17 09:40 Dose: 10 mg Morphine Sulfate (Morphine) 4 mg IVP Q4 PRN PRN Reason: Pain, severe (8-10) Last Admin: 07/20/17 09:04 Dose: 4 mg Ondansetron HCl (Zofran Tab) 4 mg PO Q6H PRN PRN Reason: Nausea/Vomiting Last Admin: 07/11/17 19:51 Dose: 4 mg Pantoprazole Sodium (Protonix Ec Tab) 40 mg PO DAILY [facility] Last Admin: 07/20/17 09:04 Dose: 40 mg Saccharomyces Boulardii (Florastor) 250 mg PO BID [facility] Last Admin: 07/20/17 09:04 Dose: 250 mg Sertraline HCl (Zoloft) 50 mg PO DAILY [facility] Last Admin: 07/20/17 09:04 Dose: 50 mg Vitamin B Complex/Vit C/Folic Acid (Nephro-Rosario) 1 tab PO 0800 [facility] Last Admin: 07/20/17 09:04 Dose: 1 tab - Labs Labs: 07/19/17 07:48 07/20/17 07:53 PT 14.4 SECONDS (9.7-12.2) H 07/05/17 23:07 INR 1.3 07/05/17 23:07 APTT 25 SECONDS (21-34) 07/05/17 23:07
--- NOTE | 2017-07-20 12:18 | CP.PCM.PN ---
Subjective - Date & Time of Evaluation Date of Evaluation: 07/20/17 Time of Evaluation: 12:18 - Subjective Subjective: PT SEEN BY DR. MCKEON TODAY AND CLEARED FOR D/C. ALSO CLEARED BY DR. Haven ZEE AND DR. RENE. WILL START [facility] TOMORROW MORNING AT 0830. ALL ARRANGEMENTS MADE BY EMILIANA WELCH. QUAD CANE AT BEDSIDE FOR AMBULATION ASSISTANCE. ALL RX GIVEN TO PT AND DISCUSSED AT LENGTH. PT ALREADY HAS F/U APPT WITH DR. MCKEON FOR AUGUST 17 AT 1645 (THIS WAS THE EARLIEST APPT PER BULLDOZER/LOADER/COMPACTOR/SCRAPER). PT TO ALSO F/U WITH DR. REYES IN THE OFFICE ON WEDNESDAY; DRESSING CHANGED TODAY BY PODIATRY RESIDENT. 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 NO FURTHER ORDERS. -FOLLOW UP WITH DR. MCKEON IN THE OFFICE WITHIN 7 DAYS OF DISCHARGE---CALL THE OFFICE TOMORROW TO MAKE AN APPT. -YOU HAVE ALREADY BEEN SCHEDULED TO START 8 WEEKS OF IV ANTIBIOTICS AT THE INFUSION CENTER. MAKE SURE YOU COME EVERYDAY TO GET THE ANTIBIOTICS THAT HAVE BEEN ORDERED BY DR. MCKEON. -EVERY WEDNESDAY THE INFUSION CENTER NURSE WILL COLLECT BLOOD WORK AND SEND TO DR. MCKEON'S OFFICE. THE BLOOD WORK WILL CHECK YOU ANEMIA, KIDNEY FUNCTION, AND VANCOMYCIN LEVELS. -FOLLOW UP WITH DR. REYES IN THE WOUND CARE CENTER IN [place] ON WEDNESDAY. -TRAIN BRAKE OPERATOR YOUR PRESCRIPTIONS THIS AFTERNOON. -IF YOU HAVE ANY FURTHER QUESTIONS OR CONCERNS, CONTACT DR. MCKEON. Objective - Vital Signs/Intake and Output Vital Signs (last 24 hours): Temp Pulse Resp BP Pulse Ox 98.4 F 87 18 151/85 H 97 07/20/17 07:00 07/20/17 07:00 07/20/17 07:00 07/20/17 07:00 07/20/17 07:00 Intake and Output: 07/20/17 07/20/17 06:59 18:59 Intake Total 1280 Output Total 800 500 Balance 480 -500 - Medications Medications: Current Medications Amlodipine Besylate (Norvasc) 10 mg PO DAILY [facility] Last Admin: 07/20/17 09:04 Dose: 10 mg Artificial Tears (Artificial Tears) 0 ml OU QID PRN PRN Reason: DRY EYES Last Admin: 07/19/17 20:17 Dose: 1 drop Calcitriol (Rocaltrol) 0.25 mcg PO TTS [facility] Last Admin: 07/20/17 09:04 Dose: 0.25 mcg Epoetin Anival (Procrit) 20,000 unit SC TTS [facility] Last Admin: 07/20/17 09:04 Dose: 20,000 unit Home Med (Patient's Own Medication) 1 tab PO DAILY [facility] Last Admin: 07/20/17 09:12 Dose: 1 tab Cefepime HCl (Maxipime Iv 1 Gm Premix) 1 gm in 50 mls @ 100 mls/hr IVPB Q24H [facility] PRN Reason: Protocol Last Admin: 07/20/17 11:37 Dose: 100 mls/hr Sodium Chloride (Sodium Chloride 0.45%) 1,000 mls @ 70 mls/hr IV .[id number] [facility] Last Admin: 07/20/17 09:11 Dose: Not Given Insulin Aspart (Novolog) 16 unit SC BID [facility] Last Admin: 07/15/17 11:00 Dose: Not Given Insulin Aspart (Novolog) 0 unit SC ACHS [facility] PRN Reason: Protocol Last Admin: 07/20/17 11:34 Dose: Not Given Insulin Glargine (Lantus) 16 unit SC HS [facility] Last Admin: 07/19/17 21:29 Dose: 16 unit Labetalol HCl (Trandate) 300 mg PO Q8H [facility] Last Admin: 07/20/17 11:37 Dose: 300 mg Metoclopramide HCl (Reglan) 10 mg IVP ACHS PRN PRN Reason: Nausea/Vomiting Last Admin: 07/19/17 09:40 Dose: 10 mg Morphine Sulfate (Morphine) 4 mg IVP Q4 PRN PRN Reason: Pain, severe (8-10) Last Admin: 07/20/17 09:04 Dose: 4 mg Ondansetron HCl (Zofran Tab) 4 mg PO Q6H PRN PRN Reason: Nausea/Vomiting Last Admin: 07/11/17 19:51 Dose: 4 mg Pantoprazole Sodium (Protonix Ec Tab) 40 mg PO DAILY [facility] Last Admin: 07/20/17 09:04 Dose: 40 mg Saccharomyces Boulardii (Florastor) 250 mg PO BID [facility] Last Admin: 07/20/17 09:04 Dose: 250 mg Sertraline HCl (Zoloft) 50 mg PO DAILY [facility] Last Admin: 07/20/17 09:04 Dose: 50 mg Vitamin B Complex/Vit C/Folic Acid (Nephro-Rosario) 1 tab PO 0800 [facility] Last Admin: 07/20/17 09:04 Dose: 1 tab - Labs Labs: 07/19/17 07:48 07/20/17 07:53 PT 14.4 SECONDS (9.7-12.2) H 07/05/17 23:07 INR 1.3 07/05/17 23:07 APTT 25 SECONDS (21-34) 07/05/17 23:07
--- NOTE | 2017-07-20 12:47 | CP.PCM.PN ---
Subjective - Date & Time of Evaluation Date of Evaluation: 07/20/17 Time of Evaluation: 12:45 - Subjective Subjective: AFEBRILE. LT FOOT OM AND ULCER OK. LABS OK. Objective - Vital Signs/Intake and Output Vital Signs (last 24 hours): Temp Pulse Resp BP Pulse Ox 98.4 F 87 18 151/85 H 97 07/20/17 07:00 07/20/17 07:00 07/20/17 07:00 07/20/17 07:00 07/20/17 07:00 Intake and Output: 07/20/17 07/20/17 06:59 18:59 Intake Total 1280 Output Total 800 500 Balance 480 -500 - Medications Medications: Current Medications Amlodipine Besylate (Norvasc) 10 mg PO DAILY [facility] Last Admin: 07/20/17 09:04 Dose: 10 mg Artificial Tears (Artificial Tears) 0 ml OU QID PRN PRN Reason: DRY EYES Last Admin: 07/19/17 20:17 Dose: 1 drop Calcitriol (Rocaltrol) 0.25 mcg PO TTS [facility] Last Admin: 07/20/17 09:04 Dose: 0.25 mcg Epoetin Anival (Procrit) 20,000 unit SC TTS [facility] Last Admin: 07/20/17 09:04 Dose: 20,000 unit Home Med (Patient's Own Medication) 1 tab PO DAILY [facility] Last Admin: 07/20/17 09:12 Dose: 1 tab Cefepime HCl (Maxipime Iv 1 Gm Premix) 1 gm in 50 mls @ 100 mls/hr IVPB Q24H [facility] PRN Reason: Protocol Last Admin: 07/20/17 11:37 Dose: 100 mls/hr Sodium Chloride (Sodium Chloride 0.45%) 1,000 mls @ 70 mls/hr IV .[id number] [facility] Last Admin: 07/20/17 09:11 Dose: Not Given Insulin Aspart (Novolog) 16 unit SC BID [facility] Last Admin: 07/15/17 11:00 Dose: Not Given Insulin Aspart (Novolog) 0 unit SC ACHS [facility] PRN Reason: Protocol Last Admin: 07/20/17 11:34 Dose: Not Given Insulin Glargine (Lantus) 16 unit SC HS [facility] Last Admin: 07/19/17 21:29 Dose: 16 unit Labetalol HCl (Trandate) 300 mg PO Q8H [facility] Last Admin: 07/20/17 11:37 Dose: 300 mg Metoclopramide HCl (Reglan) 10 mg IVP ACHS PRN PRN Reason: Nausea/Vomiting Last Admin: 07/19/17 09:40 Dose: 10 mg Morphine Sulfate (Morphine) 4 mg IVP Q4 PRN PRN Reason: Pain, severe (8-10) Last Admin: 07/20/17 12:41 Dose: 4 mg Ondansetron HCl (Zofran Tab) 4 mg PO Q6H PRN PRN Reason: Nausea/Vomiting Last Admin: 07/11/17 19:51 Dose: 4 mg Pantoprazole Sodium (Protonix Ec Tab) 40 mg PO DAILY [facility] Last Admin: 07/20/17 09:04 Dose: 40 mg Saccharomyces Boulardii (Florastor) 250 mg PO BID [facility] Last Admin: 07/20/17 09:04 Dose: 250 mg Sertraline HCl (Zoloft) 50 mg PO DAILY [facility] Last Admin: 07/20/17 09:04 Dose: 50 mg Vitamin B Complex/Vit C/Folic Acid (Nephro-Rosario) 1 tab PO 0800 [facility] Last Admin: 07/20/17 09:04 Dose: 1 tab - Labs Labs: 07/19/17 07:48 07/20/17 07:53 PT 14.4 SECONDS (9.7-12.2) H 07/05/17 23:07 INR 1.3 07/05/17 23:07 APTT 25 SECONDS (21-34) 07/05/17 23:07 - Constitutional Appears: No Acute Distress, Chronically Ill - Eye Exam Eye Exam: EOMI, Normal appearance, PERRL Pupil Exam: NORMAL ACCOMODATION, PERRL - ENT Exam ENT Exam: Mucous Membranes Moist, Normal Exam - Neck Exam Neck Exam: Full ROM, Normal Inspection. absent: Lymphadenopathy - Respiratory Exam Respiratory Exam: Clear to Ausculation Bilateral, NORMAL BREATHING PATTERN - Cardiovascular Exam Cardiovascular Exam: REGULAR RHYTHM, +S1, +S2. absent: Murmur - GI/Abdominal Exam GI & Abdominal Exam: Soft, Normal Bowel Sounds. absent: Tenderness - Back Exam Back Exam: NORMAL INSPECTION - Neurological Exam Neurological Exam: Alert, Awake, CN II-XII Intact, Normal Gait, Oriented x3 Assessment and Plan - Assessment and Plan (Free Text) Assessment: OM LT FOOT. CHRONIC ULCER DM. CRF. HTN. Plan: FOR IV ABTS OUT PT. FOR DISCHARGE HOME. F/U WITH DR. MCKEON AND DR. REYES.
--- NOTE | 2017-07-20 14:52 | CP.PCM.PN ---
Subjective - Date & Time of Evaluation Date of Evaluation: 07/20/17 Time of Evaluation: 12:00 - Subjective Subjective: Podiatry Progress Note- Dr. Reynolds/Dr. Coy 36 year old female seen and evaluated at bedside 8 days s/p I&D in OR for L diabetic foot infection. Patient seen resting comfortably in bed, in NAD, and AA0x3. Patient reports that she is feeling tired today. Denies acute overnight events. Complains of same pain to the left LE, reports have improved since procedure. Denies f/n/v/c/sob/cp at this time. No pain with calf squeeze. No other complaints. Objective - Vital Signs/Intake and Output Vital Signs (last 24 hours): Temp Pulse Resp BP Pulse Ox 98.4 F 87 18 151/85 H 97 07/20/17 07:00 07/20/17 07:00 07/20/17 07:00 07/20/17 07:00 07/20/17 07:00 Intake and Output: 07/20/17 07/20/17 06:59 18:59 Intake Total 1280 Output Total 800 500 Balance 480 -500 - Labs Labs: 07/19/17 07:48 07/20/17 07:53 PT 14.4 SECONDS (9.7-12.2) H 07/05/17 23:07 INR 1.3 07/05/17 23:07 APTT 25 SECONDS (21-34) 07/05/17 23:07 - Constitutional Appears: Well, Non-toxic, No Acute Distress - Extremities Exam Additional comments: LLE: light sero-sanguinous drainage noted to outer bandage VASC- DP pulse faintly palpable, skin temp runs warm to warm, cap refill < 4 sec , 3+ pitting edema is noted to dorsum of foot DERM- Full-thickness ulceration noted to dorsal aspect of foot which measures 0.5x4.0x1.5cm (no active drainage, neg purulence, neg malodor with mixed fibrogranular base which tracks proximally 0.5cm , macerated border), there is a 2nd full-thickness ulceration noted to dorsal-lateral aspect of 5th metatarsal amputation site measures 1.0x4.0x1.5cm with mixed fibrogranular base and somewhat macerated border (no active drainage, no purulence, neg malodor, neg tracking), third ulceration noted just plantar to the 2nd wound measures 0.5x1.0x1.0 cm (mixed fibrogranular base, macerated border, neg tracking, minimal serosang drainage), superficial ulceration noted to distal lateral leg measures approx. 3.0x5.0x0.3cm with mixed fibrogranular base. Lateral midfoot surgical site with all sutrures intact, boggy periwound maceration noted, no productive drainage or discharge expressed. neg PTB, neg fluctuance, gross lichenification of pedal skin NEURO- gross and protective pedal sensation are diminished MSK- tenderness noted to palp of wound sites - Neurological Exam Neurological Exam: Alert, Awake, Oriented x3 - Psychiatric Exam Psychiatric exam: Normal Affect, Normal Mood Assessment and Plan - Assessment and Plan (Free Text) Assessment: 36 yo female POD #8 I&D L foot 2/2 diabetic foot infection (improving) Plan: Pt S&E at bedside. Discussed with attending, Dr. Coy, who endorsed the following plan. pt is cleared for PWB to L heel as tolerated with surgical shoe Leukocytosis at 12.3, afebrile Wounds flushed with sterile saline and redressed with betadine soaked gauze, extra ABD's, kerlix. Cane assisted ambulation recommended. 8 weekd of IV abx per ID at infusion center. Pt will f/u with Dr. Coy in [facility] wednesday07/21/17 after discharge. Pt is stable form podiatry standpoint for discharge.
--- NOTE | 2017-07-21 01:35 | PN ---
DATE: 07/20/2017 FOLLOWUP RENAL CONSULTATION LOCATION: The patient is located in room 568, bed B. REQUESTED BY: Art Nathan MD REASON FOR FOLLOWUP: Acute renal failure, chronic kidney disease, anemia, second hyperparathyroidism, nephrotic range proteinuria. HISTORY OF PRESENT ILLNESS: Mrs. Johnson is a 36 years old transgender female with a past medical history significant for HIV positive, hypertension, diabetes, nephrotic range proteinuria, anemia, secondary hyperparathyroidism, Charcot's foot, status post debridement of the left foot, being treated for osteomyelitis, on antibiotics, vancomycin and cefepime. The patient is not in acute distress. Denies any headache, dizziness. Denies any chest pain or palpitation. Denies any fever or cough. No abdominal pain. No nausea, vomiting, diarrhea. PHYSICAL EXAMINATION: VITAL SIGNS: As follows, blood pressure 129/74, pulse 85, respirations 20, temperature 98. Vital signs this morning, blood pressure 151/85, pulse 87, respirations 18, temperature 98.4. GENERAL: Mrs. Johnson is a 36 years old young transgender female, well-built, well-nourished, not in distress. HEENT: Pupils normal and reactive to light and accommodation. Conjunctivae pink. Sclerae anicteric. Tongue is moist. Trachea is midline. LUNGS: Symmetric on both sides. Bilateral breath sounds present. Clear to auscultation. CVS: [place] at the fifth intercostal space, midclavicular line. S1, S2 audible. No murmur or gallop. ABDOMEN: Normal in appearance, soft, tympanic. No guarding. No rigidity. No hepatosplenomegaly. 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 Nonfocal neuro examination. Cranial nerves II through XII grossly intact. Sensory and motor system is within normal limits. EXTREMITIES: No cyanosis, no clubbing, no edema on the right leg. The patient has a dressing to the left foot and also swelling of the left leg. MEDICATIONS: Her medications include amlodipine 5 mg daily, Odefsey, vancomycin 1 gm every 48 hours, Zoloft 50 mg p.o. daily, calcitriol 0.25 mcg three times a week, cefepime 1 gm daily, labetalol 300 mg p.o. every 8 hours, Zoloft 4 mg p.o. every 6 hours p.r.n., Nephro-Rosario 1 tablet p.o. daily, also Epogen 20,000 units subcu three times a week. LABORATORY DATA: This morning as follows: Sodium of 137, potassium 4.7, chloride 104, CO2 of 21, BUN 43, creatinine 4, glucose 78, calcium 8.9. IMPRESSION: In summary, Mrs. Johnson is 36 years old transgender female with human immunodeficiency virus positive, hypertension, diabetes, nephrotic range proteinuria, anemia, secondary hyperparathyroidism, Charcot's foot, osteomyelitis of the left foot, hyperkalemia. 1. Acute renal failure, chronic kidney disease, most likely secondary to acute tubular necrosis secondary to left foot infection. 2. Hypertension. 3. Uncontrolled diabetes. 4. Anemia secondary to renal failure and infection and iron deficiency anemia, status post IV iron x8 doses. Continue the Epogen three times a week 20,000 units and continue Nephro-Rosario. 5. Secondary hyperparathyroidism. Continue calcitriol three times a week 0.25 mcg. 6. Charcot's foot with osteomyelitis. Continue cefepime and vancomycin. Renal function is stable. is slightly better today. Continue low sodium, low potassium diet. Discussed with the patient regarding the possible need to monitor her diet and dietary compliance. Overall prognosis is guarded at this time. The patient may need to go on renal replacement therapy in the near future if renal function does not improve. Thank you for allowing me to participate in your patient's care and for possible discharge to home and will come to the outpatient IV antibiotic therapy as per ID recommendations and follow the vancomycin level. Follow up BMP. Discuss with the nurse practitioner in rounds. Weston Brambila MD
== END 2017-07-20 13:40 | disposition home or self-care (01) | DRG 969 ==
LOC: C.ER 21:14 → C.9E 22:17 → C.5S 22:17
PROVIDERS: ADMIT Internal Medicine; ATTEND Internal Medicine
PROC: 02HV33Z Insertion of Infusion Device into Superior Vena Cava, Percutaneous Approach (ICD-10-PCS; principal; 2017-07-09)
PROC: 0J9R00Z Drainage of Left Foot Subcutaneous Tissue and Fascia with Drainage Device, Open Approach (ICD-10-PCS; 2017-07-12)
PROC: 0JBR0ZZ Excision of Left Foot Subcutaneous Tissue and Fascia, Open Approach (ICD-10-PCS; 2017-07-12)
PROC: 02HV33Z Insertion of Infusion Device into Superior Vena Cava, Percutaneous Approach (ICD-10-PCS; 2017-07-13)
PROC: B548ZZA Ultrasonography of Superior Vena Cava, Guidance (ICD-10-PCS; 2017-07-13)
DX: A41.9 Sepsis, unspecified organism (principal); B20 Human immunodeficiency virus [HIV] disease; N17.0 Acute kidney failure with tubular necrosis; M86.672 Other chronic osteomyelitis, left ankle and foot; L03.116 Cellulitis of left lower limb; E11.52 Type 2 diabetes mellitus with diabetic peripheral angiopathy with gangrene; I96 Gangrene, not elsewhere classified; E87.2 Acidosis; N25.81 Secondary hyperparathyroidism of renal origin; N17.9 Acute kidney failure, unspecified; E11.69 Type 2 diabetes mellitus with other specified complication; M14.679 Charcot's joint, unspecified ankle and foot; N18.3 Chronic kidney disease, stage 3 (moderate); Z79.4 Long term (current) use of insulin; I25.10 Atherosclerotic heart disease of native coronary artery without angina pectoris; I12.9 Hypertensive chronic kidney disease with stage 1 through stage 4 chronic kidney disease, or unspecified chronic kidney disease; F64.9 Gender identity disorder, unspecified; F41.9 Anxiety disorder, unspecified; E11.65 Type 2 diabetes mellitus with hyperglycemia; D50.9 Iron deficiency anemia, unspecified; D63.1 Anemia in chronic kidney disease; E11.22 Type 2 diabetes mellitus with diabetic chronic kidney disease; N18.9 Chronic kidney disease, unspecified; Z87.891 Personal history of nicotine dependence; E87.5 Hyperkalemia; E66.01 Morbid (severe) obesity due to excess calories; L97.529 Non-pressure chronic ulcer of other part of left foot with unspecified severity; F12.10 Cannabis abuse, uncomplicated; F11.10 Opioid abuse, uncomplicated

== ENCOUNTER 2017-07-30 15:54 | Inpatient (IN) | payer MEDICARE ==
[2017-07-30 15:54] VITALS: BMI 36.2
--- NOTE | 2017-07-30 16:41 | C.PDOC ---
History Of Present Illness 36 y/o transgender female with history of DM, DVT, HTN, HIV, and Osteomyelitis on left foot presents to ED for draining unhealed wound to left foot. Patient states she saw Dr. Coy 2 days ago and everything was "ok". Today she notes that the wound is draining "everywhere". (+) subjective "low grade fever" Denies chest pain, sob, nausea, vomiting or any other complaints at this time. Time Seen by Provider: 07/30/17 16:15 Chief Complaint (Nursing): Abnormal Skin Integrity History Per: Patient History/Exam Limitations: no limitations Onset/Duration Of Symptoms: Days Current Symptoms Are (Timing): Still Present Location Of Injury: Left: Foot Past Medical History Reviewed: Historical Data, Nursing Documentation, Vital Signs Vital Signs: Last Vital Signs Temp 98.2 F 08/01/17 15:25 Pulse 96 H 08/01/17 15:25 Resp 20 08/01/17 15:25 BP 143/84 08/01/17 15:25 Pulse Ox 99 08/01/17 22:30 - Medical History PMH: Depression, Diabetes, Deep Vein Thrombosis, HIV, HTN, Peripheral Edema, Chronic Pain Surgical History: No Surg Hx - [facility] Procedures ANAL FISTULOTOMY (03/15/13) CENTRAL VENOUS CATHETER PLACEMENT WITH GUIDANCE (08/24/13) DEBRIDEMENT OF NAIL, NAIL BED OR NAIL FOLD (07/09/14) DETACHMENT AT LEFT 1ST TOE, COMPLETE, OPEN APPROACH (02/12/16) DETACHMENT AT LEFT 3RD TOE, COMPLETE, OPEN APPROACH (03/20/15) DETACHMENT AT LEFT 4TH TOE, COMPLETE, OPEN APPROACH (03/20/15) DETACHMENT AT LEFT FOOT, PARTIAL 3RD RAY, OPEN APPROACH (10/23/15) DETACHMENT AT LEFT FOOT, PARTIAL 4TH RAY, OPEN APPROACH (10/23/15) DRAIN OF L FOOT SUBCU/FASCIA WITH DRAIN DEV, OPEN APPROACH (07/05/17) DRAINAGE OF BUTTOCK SUBCU/FASCIA, OPEN APPROACH (05/16/15) DRAINAGE OF LEFT FOOT, OPEN APPROACH (06/11/15) ELECTROCOAG RECT LES NEC (03/15/13) EXCIS DEBRIDE OF WOUND, INFECT, OR BURN (08/28/14) EXCISION OF L FOOT SUBCU/FASCIA, OPEN APPROACH (07/05/17) EXCISION OF LEFT FOOT SKIN, EXTERNAL APPROACH (10/29/16) EXCISION OF LEFT METATARSAL, OPEN APPROACH (10/29/16) EXCISION OF LEFT TOE PHALANX, OPEN APPROACH (02/12/16) EXCISION OF TOE NAIL, EXTERNAL APPROACH (02/12/16) INJECT ANTIBIOTIC (02/08/14) INJECT STEROID (02/09/12) INJECTION INTO JOINT (02/09/12) INSERTION OF INFUSION DEV INTO L SUBCLAV VEIN, PERC APPROACH (10/23/15) INSERTION OF INFUSION DEV INTO SUP VENA CAVA, PERC APPROACH (07/05/17) LOC EXC LES METATAR/TAR (12/09/13) OTH LOCAL EXC OR DEST OF LESION OR TISSUE OF ANUS (03/15/13) OTHER SKIN & SUBQ I D (10/24/14) PART OSTECT-METATAR/TAR (07/09/14) RESECTION OF LEFT METATARSAL, OPEN APPROACH (06/02/17) ULTRASONOGRAPHY OF SUPERIOR VENA CAVA, GUIDANCE (07/05/17) VASCULAR CATH IRRIGATION (01/10/14) VENOUS CATHETERIZATION NEC (01/18/14) Family History: States: [place], CAD, Diabetes, Hypertension - Social History Hx Tobacco Use: No Hx Alcohol Use: No Hx Substance Use: Yes (OCCASIONALLY) - Immunization History Hx Tetanus Toxoid Vaccination: Yes Hx Influenza Vaccination: No Hx Pneumococcal Vaccination: Yes Review Of Systems Constitutional: Positive for: Fever. Negative for: Chills Cardiovascular: Negative for: Chest Pain Respiratory: Negative for: Shortness of Breath Gastrointestinal: Negative for: Nausea, Vomiting Skin: Negative for: Rash Physical Exam - Physical Exam Appears: Well, Non-toxic, No Acute Distress Skin: Warm, Dry Head: Atraumatic, Normacephalic Eye(s): bilateral: Normal Inspection, EOMI Nose: Normal Oral Mucosa: Moist Neck: Normal, Normal ROM, Supple Chest: Symmetrical Cardiovascular: Rhythm Regular Respiratory: Normal Breath Sounds Gastrointestinal/Abdominal: Normal Exam, Soft, No Tenderness, Other (obese) Back: Normal Inspection Extremity: Other ((+) large left foot with foul odor and wet dressing. When dressing removed multiple ulcerations. (+) discharge (+) multiple toe amputation ) Neurological/Psych: Oriented x3, Normal Speech ED Course And Treatment - Laboratory Results Result Diagrams: 08/01/17 11:16 08/01/17 09:17 O2 Sat by Pulse Oximetry: 99 (RA) Progress Note: Pt request Morphine for pain, "Im allergic to everything else.". Case discussed with Dr. coy, who instructs admission for OR tomorrow. Notes pt has not been complaint with infusions. Case discussed with Dr Del Valle who requests admission to Dr Haven Nathan. Case discussed with Dr Nathan, agreed upon admission. Labs evaluated. Anemia baseline: 8, today 7.5 mildly below. BUN/CR elevated baseline. Carbon dioxide 17: maintance fluids ordered. No WBC. Pt was given Maxipime and Vanco today at infusion center. Disposition - Disposition Disposition: HOSPITALIZED Disposition Time: 18:36 Condition: STABLE - Clinical Impression Clinical Impression: Anemia, Chronic ulcer of left leg, HIV disease, Osteomyelitis of ankle or foot , acute - PA / PHOTOGRAPHIC SPECIALIST / Resident Statement MD/DO has reviewed & agrees with the documentation as recorded. - Scribe Statement The provider has reviewed the documentation as recorded by the Hughibjoey Hahn All medical record entries made by the Hughibjoey were at my direction and personally dictated by me. I have reviewed the chart and agree that the record accurately reflects my personal performance of the history, physical exam, medical decision making, and the department course for this patient. I have also personally directed, reviewed, and agree with the discharge instructions and disposition.
[2017-07-30] MEDS ORDERED: Sodium Chloride 0.9% 1,000 ML IV SCH (16:45)
[2017-07-30 17:46] LABS: BASO # 0.1 K/uL (0.0-0.2); BASO % 0.7 % (0.0-2.0); EOS # 0.5 K/uL (0.0-0.7); EOS % 4.9 % (0.0-4.0); HEMOGLOBIN 7.5 g/dL (11.0-16.0); LYMPH # 1.7 K/uL (1.0-4.3); LYMPH % 15.7 % (20.0-40.0); MEAN CORPUSCULAR HEMOGLOBIN 28.7 pg (27.0-31.0); MEAN CORPUSCULAR HGB CONC 33.4 g/dL (33.0-37.0); MEAN PLATELET VOLUME 6.5 fL (7.2-11.7); MONO % 9.5 % (0.0-10.0); NEUT # 7.4 K/uL (1.8-7.0); NEUT % 69.2 % (50.0-75.0); RBC 2.63 Mil/uL (3.80-5.20); WHITE BLOOD COUNT 10.7 K/uL (4.8-10.8)
[2017-07-30 17:47] LABS: MEAN CELL VOLUME 85.8 fL (81.0-99.0)
[2017-07-30 18:07] LABS: ALB/GLOB RATIO 0.5 (1.0-2.1); ALBUMIN 2.6 g/dL (3.5-5.0); ALT/SGPT < 6 U/L (9-52); AST/SGOT 23 U/L (14-36); BLOOD UREA NITROGEN 48 mg/dL (7-17); CALCIUM 8.2 mg/dl (8.6-10.4); GFR AFRICAN-AMERICAN 18; GFR NON-AFRICAN AMERICAN 15
[2017-07-30] MEDS ORDERED: Morphine 4 MG/ML VIAL ONE (18:27)
[2017-07-30] MEDS ORDERED: Sodium Chloride 0.9% 1,000 ML ONE (18:28)
[2017-07-30] MEDS ORDERED: Sodium Chloride 0.9% 1,000 ML IV ONE (18:32)
--- NOTE | 2017-07-30 18:45 | RAD ---
PROCEDURE: CHEST RADIOGRAPH, 1 VIEW HISTORY: picc placement COMPARISON: 07/11/2017 FINDINGS: LUNGS: Clear. PLEURA: No pneumothorax or pleural fluid seen. CARDIOVASCULAR: Normal heart size. New right PICC catheter terminates in the region of superior vena cava. OSSEOUS STRUCTURES: No significant abnormalities. VISUALIZED UPPER ABDOMEN: Normal. OTHER FINDINGS: None. IMPRESSION: New right PICC catheter terminating in the region of the superior vena cava. No infiltrate.
[2017-07-30] MEDS ORDERED: Morphine 4 MG/ML VIAL IV PRN (21:23)
[2017-07-30] MEDS: Vancomycin 1 gm/NS 200 ml 1 GM/200 ML BAG IVPB STA ×2 (22:47→22:55)
--- NOTE | 2017-07-31 02:41 | HP ---
HISTORY OF PRESENT ILLNESS: This is a 36-year-old transgender female, came to the emergency room with history of diabetes, DVT, hypertension, HIV positive, osteomyelitis of the left foot and depression, presented ____ Infusion Center of draining unhealed wound of left foot. The patient states that she saw Dr. Coy 2 days ago and reports low-grade fever. Denies chest pain, shortness of breath, nausea, vomiting or abdominal pain. REVIEW OF SYSTEMS: CARDIOVASCULAR: Negative for chest pain. RESPIRATORY: Negative for shortness of breath. GI: Negative for nausea, vomiting,abdominal pain. [employer]: No focal neurological complaints offered. EXTREMITIES: Chronic left foot infection present with osteomyelitis. : No urinary complaints. PAST HISTORY: History of chronic osteomyelitis of the left foot, depression, diabetes, deep vein thrombosis, HIV, positive, hypertension, peripheral edema, diabetes and chronic renal failure. ALLERGIES: THE PATIENT IS ALLERGIC TO TYLENOL, ASPIRIN AND HYDROMORPHONE. FAMILY HISTORY: No known inherited disease. SOCIAL HISTORY: Nonsmoker. Nonalcoholic. No IVDA. PHYSICAL EXAMINATION: GENERAL: This is a 36-year-old transgender female, alert, oriented,comfortable. VITAL SIGNS: Temperature 99.5, pulse 112, respirations 18, blood pressure 137/86 mmHg, pulse ox is 99% on room air. HEENT: Normal. NECK: JVP is flat. Carotids, no bruits. LUNGS: No rales, no wheezing. HEART: S1 and S2 normal. No gallops, no murmurs. ABDOMEN: Soft, nontender. No organomegaly. [employer]: Nonfocal. NEUROLOGIC: No deficits. EXTREMITIES: Left foot has chronic infection with osteomyelitis. LABORATORY DATA: Repeat lab work shows hemoglobin is 7.5, hematocrit 22.5. BUN 48, creatinine 3.4, potassium 4.7. IMPRESSION: Left foot osteomyelitis, nonhealing diabetic foot ulcer, chronic renal failure, hypertension. PLAN: The patient will be admitted to the floor. We will give IV antibiotics. Consult with Dr. Del Valle. Consult with Dr. Coy. The patient is cleared for OR tomorrow. Art Nathan MD
[2017-07-31] MEDS: (Novolog) Insulin Aspart, Recombinant 100 u/ml 10 ml vial SC SCH ×4 (07:35→18:34)
[2017-07-31] MEDS: (Novolin R) Insulin Human Regular 100 units/ml vial SC SCH ×4 (07:35→22:45)
[2017-07-31] MEDS: Multivitamin Vitamin B Complex (Nephro-Vite) Tab PO SCH (08:00)
[2017-07-31] MEDS: Labetalol Hydrochloride 300 mg Tab PO SCH ×2 (08:58→16:33)
[2017-07-31] MEDS ORDERED: Bupivacaine HCl 0.5% PF (30 ml) Inj ONE (09:22)
[2017-07-31] MEDS ORDERED: Lidocaine 2% MPF (5 ml) Inj ONE (09:22)
[2017-07-31] MEDS ORDERED: Midazolam 2 MG/2 ML VIAL ONE (09:26)
[2017-07-31] MEDS ORDERED: Propofol 10 mg/ml Inj (20 ML) ONE ×2 (09:26→10:06)
[2017-07-31] MEDS: Saccharomyces Boulardi 250 mg Cap PO SCH ×2 (10:15→17:52)
--- NOTE | 2017-07-31 10:24 | PCM.SURG1 ---
Surgeon's Initial Post Op Note - Surgeon's Notes Surgeon: Dr. Coy Principal Investigator: Dr. Claudia Guallpa PGY-1 Type of Anesthesia: IV Sedation, Local Anesthesia Administered By: Dr. Lopez Pre-Operative Diagnosis: left foot non-healing infected diabetic ulceration with abscess formation and underlying osteomyelitis Operative Findings: I: 20cc 0.5% Marcaine plain, 10cc 1% Lidocaine plain. M: 1/ 2" iodoform packing, 2 deep wound cultures. DSD, FLORINDA, Janak Post-Operative Diagnosis: same Operation Performed: left foot incision and drainage of ulceration with abscess and sinus tract Specimen/Specimens Removed: none Estimated Blood Loss: EBL {In ML}: 20 Blood Products Given: N/A Drains Used: No Drains Post-Op Condition: Good Date of Surgery/Procedure: 07/31/17 Time of Surgery/Procedure: 10:24
--- NOTE | 2017-07-31 10:36 | CP.PCM.PN ---
Subjective - Date & Time of Evaluation Date of Evaluation: 07/31/17 Time of Evaluation: 10:34 - Subjective Subjective: PT WENT TO OR FOR SURGERY LT FOOT . NO FEVER. Objective - Vital Signs/Intake and Output Vital Signs (last 24 hours): Temp Pulse Resp BP Pulse Ox 97 F L 83 18 110/68 98 07/31/17 10:15 07/31/17 10:15 07/31/17 10:15 07/31/17 10:15 07/31/17 10:15 Intake and Output: 07/31/17 07/31/17 06:59 18:59 Output Total 1000 Balance -1000 - Medications Medications: Current Medications Abacavir Sulfate (Ziagen) 300 mg PO BID [facility] PRN Reason: Protocol Last Admin: 07/31/17 10:18 Dose: Not Given Amlodipine Besylate (Norvasc) 10 mg PO DAILY [facility] Last Admin: 07/31/17 08:58 Dose: 10 mg Calcitriol (Rocaltrol) 0.25 mcg PO TTS [facility] Last Admin: 07/31/17 10:17 Dose: Not Given Dolutegravir Sodium (Tivicay) 50 mg PO DAILY [facility] PRN Reason: Protocol Last Admin: 07/31/17 10:18 Dose: Not Given Cefepime HCl 1 gm/ Dextrose 50 mls @ 100 mls/hr IVPB DAILY [facility] PRN Reason: Protocol Last Admin: 07/31/17 10:15 Dose: Not Given Insulin Aspart (Novolog) 16 unit SC BID [facility] Last Admin: 07/31/17 10:17 Dose: Not Given Insulin Glargine (Lantus) 16 unit SC HS [facility] Insulin Human Regular (Novolin R) 0 unit SC ACHS [facility] PRN Reason: Protocol Last Admin: 07/31/17 07:35 Dose: Not Given Labetalol HCl (Normodyne) 300 mg PO Q8H [facility] Last Admin: 07/31/17 08:58 Dose: 300 mg Lamivudine (Epivir) 150 mg PO DAILY [facility] PRN Reason: Protocol Last Admin: 07/31/17 10:15 Dose: Not Given Morphine Sulfate (Morphine) 2 mg IV Q4 PRN PRN Reason: Pain, severe (8-10) Last Admin: 07/31/17 03:38 Dose: 2 mg Morphine Sulfate (Morphine) 1 mg IVP Q15M PRN PRN Reason: Pain, severe (8-10) Stop: 07/31/17 11:19 Ondansetron HCl (Zofran Inj) 4 mg IVP Q8 [facility] Last Admin: 07/31/17 08:13 Dose: 4 mg Ondansetron HCl (Zofran Inj) 4 mg IVP ONCE PRN PRN Reason: Nausea/Vomiting Stop: 07/31/17 11:12 Saccharomyces Boulardii (Florastor) 250 mg PO BID [facility] Last Admin: 07/31/17 10:15 Dose: Not Given Sertraline HCl (Zoloft) 50 mg PO DAILY [facility] Last Admin: 07/31/17 10:18 Dose: Not Given Vitamin B Complex/Vit C/Folic Acid (Nephro-Rosario) 1 tab PO 0800 [facility] - Labs Labs: 07/30/17 17:43 07/30/17 17:43 - Constitutional Appears: No Acute Distress, Chronically Ill - Eye Exam Eye Exam: EOMI, Normal appearance, PERRL Pupil Exam: NORMAL ACCOMODATION, PERRL - ENT Exam ENT Exam: Mucous Membranes Moist, Normal Exam - Respiratory Exam Respiratory Exam: Clear to Ausculation Bilateral, NORMAL BREATHING PATTERN - Cardiovascular Exam Cardiovascular Exam: REGULAR RHYTHM, +S1, +S2. absent: Murmur - GI/Abdominal Exam GI & Abdominal Exam: Soft, Normal Bowel Sounds. absent: Tenderness - Extremities Exam Extremities Exam: Full ROM, Normal Capillary Refill, Normal Inspection. absent : Joint Swelling, Pedal Edema - Back Exam Back Exam: NORMAL INSPECTION Assessment and Plan - Assessment and Plan (Free Text) Assessment: OM LT FOOT. CRF. ANEMIA. Plan: CT PRESENT TREATMENT.
--- NOTE | 2017-07-31 14:06 | CP.PCM.PN ---
Subjective - Date & Time of Evaluation Date of Evaluation: 07/31/17 Time of Evaluation: 14:06 - Subjective Subjective: pt is seen and examined, follow up consult is dictated #[id number] Objective - Vital Signs/Intake and Output Vital Signs (last 24 hours): Temp Pulse Resp BP Pulse Ox 97 F L 83 19 135/72 99 07/31/17 10:15 07/31/17 10:45 07/31/17 10:45 07/31/17 10:45 07/31/17 10:45 Intake and Output: 07/31/17 07/31/17 06:59 18:59 Intake Total 50 Output Total 1000 Balance -950 - Medications Medications: Current Medications Abacavir Sulfate (Ziagen) 300 mg PO BID [facility] PRN Reason: Protocol Last Admin: 07/31/17 10:18 Dose: Not Given Amlodipine Besylate (Norvasc) 10 mg PO DAILY [facility] Last Admin: 07/31/17 08:58 Dose: 10 mg Calcitriol (Rocaltrol) 0.25 mcg PO TTS [facility] Last Admin: 07/31/17 10:17 Dose: Not Given Dolutegravir Sodium (Tivicay) 50 mg PO DAILY [facility] PRN Reason: Protocol Last Admin: 07/31/17 10:18 Dose: Not Given Cefepime HCl 1 gm/ Dextrose 50 mls @ 100 mls/hr IVPB DAILY [facility] PRN Reason: Protocol Last Admin: 07/31/17 10:15 Dose: Not Given Insulin Aspart (Novolog) 16 unit SC BID [facility] Last Admin: 07/31/17 10:17 Dose: Not Given Insulin Glargine (Lantus) 16 unit SC HS [facility] Insulin Human Regular (Novolin R) 0 unit SC ACHS [facility] PRN Reason: Protocol Last Admin: 07/31/17 12:11 Dose: Not Given Labetalol HCl (Normodyne) 300 mg PO Q8H [facility] Last Admin: 07/31/17 08:58 Dose: 300 mg Lamivudine (Epivir) 150 mg PO DAILY [facility] PRN Reason: Protocol Last Admin: 07/31/17 10:15 Dose: Not Given Morphine Sulfate (Morphine) 2 mg IV Q4 PRN PRN Reason: Pain, severe (8-10) Last Admin: 07/31/17 03:38 Dose: 2 mg Ondansetron HCl (Zofran Inj) 4 mg IVP Q8 [facility] Last Admin: 07/31/17 08:13 Dose: 4 mg Saccharomyces Boulardii (Florastor) 250 mg PO BID [facility] Last Admin: 07/31/17 10:15 Dose: Not Given Sertraline HCl (Zoloft) 50 mg PO DAILY [facility] Last Admin: 07/31/17 10:18 Dose: Not Given Vitamin B Complex/Vit C/Folic Acid (Nephro-Rosario) 1 tab PO 0800 [facility] Last Admin: 07/31/17 08:00 Dose: Not Given - Labs Labs: 07/30/17 17:43 07/30/17 17:43
[2017-07-31] MEDS ORDERED: Epoetin Alfa Dialysis 20000 UNIT/ML Inj SC ONE (14:07)
[2017-07-31] MEDS: (Lantus) Insulin Glargine, Recombinant SC SCH (22:45)
[2017-08-01] MEDS: Labetalol Hydrochloride 300 mg Tab PO SCH ×3 (00:28→16:00)
[2017-08-01] MEDS: Multivitamin Vitamin B Complex (Nephro-Vite) Tab PO SCH (08:09)
[2017-08-01] MEDS: (Novolin R) Insulin Human Regular 100 units/ml vial SC SCH ×4 (08:10→22:00)
[2017-08-01 09:51] LABS: ALB/GLOB RATIO 0.5 (1.0-2.1); ALBUMIN 2.5 g/dL (3.5-5.0); CALCIUM 8.4 mg/dl (8.6-10.4)
[2017-08-01] MEDS: (Novolog) Insulin Aspart, Recombinant 100 u/ml 10 ml vial SC SCH ×2 (10:48→17:52)
[2017-08-01] MEDS: Saccharomyces Boulardi 250 mg Cap PO SCH ×2 (10:48→17:50)
[2017-08-01 11:19] LABS: BASO % 0.4 % (0.0-2.0); EOS # 0.5 K/uL (0.0-0.7); EOS % 4.4 % (0.0-4.0); LYMPH # 1.9 K/uL (1.0-4.3); LYMPH % 18.7 % (20.0-40.0); MEAN CELL VOLUME 86.3 fL (81.0-99.0); MEAN CORPUSCULAR HEMOGLOBIN 28.7 pg (27.0-31.0); MEAN CORPUSCULAR HGB CONC 33.3 g/dL (33.0-37.0); MEAN PLATELET VOLUME 6.5 fL (7.2-11.7); MONO % 9.7 % (0.0-10.0); NEUT # 6.8 K/uL (1.8-7.0); NEUT % 66.8 % (50.0-75.0); RBC 2.28 Mil/uL (3.80-5.20); RED CELL DISTRIBUTION WIDTH 16.2 % (11.5-14.5); WHITE BLOOD COUNT 10.1 K/uL (4.8-10.8)
[2017-08-01 11:30] LABS: HEMOGLOBIN 6.6 g/dL (11.0-16.0)
--- NOTE | 2017-08-01 12:41 | CP.PCM.CON ---
History of Present Illness - History of Present Illness History of Present Illness: 36 y/o transgender female with history of DM, DVT, HTN, HIV, Osteomyelitis on left foot and depression presents to ED sent from Infusion center for draining unhealed wound to left foot. Patient states she saw Dr. Coy 2 days ago and reports low grade fever, denies chest pain, sob, nausea, vomiting or any other complaints at this time. Went to OR for I and D now back on IV antibiotics Missed several doses IV rx refuses amputation despite explained risks - Medical History PMH: Depression, Diabetes, Deep Vein Thrombosis, HIV, HTN, Peripheral Edema, Chronic Pain long hx of noncompliance now with worsening infection left foot/ chronic OM and renal failure Review of Systems - Review of Systems All systems: reviewed and no additional remarkable complaints except - Constitutional Constitutional: As Per HPI - EENT Eyes: Blurred Vision, Decreased Night Vision. absent: As Per HPI, Blind Spots, Change in Vision, Diplopia, Discharge, Dry Eye, Exophthalmos, Floaters, Irritation, Itchy Eyes, Loss of Peripheral Vision, Pain, Photophobia, Requires Corrective Lenses, Sees Flashes, Spots in Vision, Tunnel Vision, Other Visual Disturbances, Loss of Vision, Other Ears: absent: As Per HPI, Decreased Hearing, Ear Discharge, Ear Pain, Tinnitus, Abnormal Hearing, Disequilibrium, Dizziness, Other Nose/Mouth/Throat: absent: As Per HPI, Epistaxis, Nasal Congestion, Nasal Discharge, Nasal Obstruction, Nasal Trauma, Nose Pain, Post Nasal Drip, Sinus Pain, Sinus Pressure, Bleeding Gums, Change in Voice, Dental Pain, Dry Mouth, Dysphagia, Halitosis, Hoarsness, Lip Swelling, Mouth Lesions, Mouth Pain, Odynophagia, Sore Throat, Throat Swelling, Tongue Swelling, Facial Pain, Neck Pain, Neck Mass, Other - Breasts Breasts: absent: As Per HPI, Change in Shape, Mass, Pain, Nipple Discharge, Nipple Inversion, Skin Changes, Swelling, Other - Cardiovascular Cardiovascular: absent: As Per HPI, Acrocyanosis, Chest Pain, Chest Pain at Rest , Chest Pain with Activity, Claudication, Diaphoresis, Dyspnea, Dyspnea on Exertion, Edema, Irregular Heart Rhythm, Pain Radiating to Arm/Neck/Jaw, Leg Edema, Leg Ulcers, Lightheadedness, Orthopnea, Palpitations, Paroxysmal Nocturnal Dyspnea, Pedal Edema, Radiating Pain, Rapid Heart Rate, Slow Heart Rate, Syncope, Other - Respiratory Respiratory: absent: As Per HPI, Cough, Dyspnea, Hemoptysis, Dyspnea on Exertion , Wheezing, Snoring, Stridor, Pain on Inspiration, Chest Congestion, Excessive Mucous Production, Change in Mucous Color, Pain with Coughing, Other - Gastrointestinal Gastrointestinal: absent: As Per HPI, Abdominal Pain, Belching, Bloating, Change in Bowel Habits, Change in Stool Character, Coffee Ground Emesis, Constipation, Cramping, Diarrhea, Dyspepsia, Dysphagia, Early Satiety, Excessive Flatus, Fecal Incontinence, Heartburn, Hematemesis, Hematochezia, Loose Stools, Melena, Nausea, Odynophagia, Temesmus, Vomiting, Other - Genitourinary Genitourinary: absent: As Per HPI, Change in Urinary Stream, Difficulty Urinating, Dysuria, Flank Pain, Hematuria, Pyuria, Nocturia, Urinary Incontinence, Urinary Frequency, Urinary Hesitance, Urinary Urgency, Voiding Freq/Small Amts, Freq UTI, Hx Renal/Bladder Calculi, Hx /Renal Surgery, Bladder Distension, Other - Reproductive: Female Reproductive:Female: absent: As Per HPI, Amenorrhea, Amenorrhea/ Control, Currently Menstual, Cycle <21 Days, Cycle >35 Days, Cycle Variable, Menses 1-7 Days, Menses >/= 8 Days, Menses Variable, Cycle > 4 Weeks Between, No Menses for 6 Months, Heavy Menses, Light Menses, Normal Menses, Spotting Between Cycles , S/P Hysterectomy, Menopausal, Post Menopausal, Premenarche, Abnormal Vaginal Bleeding, Dysmenorrhea, Dyspareunia, Genital Lesions, Genital Pruritis, Pelvic Pain, Prolapse Symptoms, Sexual Dysfunction, Vaginal Discharge, Vaginal Dryness , Vaginal Odor, Vaginal Pruritis, Other - Menstruation Menstruation: absent: As Per HPI, Amenorrhea, Amenorrhea/ Control, Currently Menstual, Cycle <21 Days, Cycle >35 Days, Cycle Variable, Menses 1-7 Days, Menses >/= 8 Days, Menses Variable, Cycle > 4 Weeks Between, No Menses for 6 Months, Heavy Menses, Light Menses, Normal Menses, Spotting Between Cycles , S/P Hysterectomy, Menopausal, Post Menopausal, Premenarche, Abnormal Vaginal Bleeding, Dysmenorrhea, Other - Musculoskeletal Musculoskeletal: As Per HPI - Integumentary Integumentary: As Per HPI, Skin Pain, Wounds - Neurological Neurological: absent: As Per HPI, Abnormal Gait, Abnormal Hearing, Abnormal Movements, Abnormal Speech, Behavioral Changes, Burning Sensations, Confusion, Convulsions, Disequilibrium, Dizziness, Numbness, Focal Weakness, Frequent Falls , Headaches, Lack of Coordination, Loss of Vision, Memory Loss, Paresthesias, Radicular Pain, Restless Legs, Sensory Deficit, Syncope, Tingling, Tremor, Vertigo, Weakness, Other Visual Disturbances, Other - Psychiatric Psychiatric: absent: As Per HPI, Abnormal Sleep Pattern, Anhedonia, Anxiety, Auditory Hallucinations, Behavioral Changes, Change in Appetite, Change in Libido, Confusion, Depression, Difficulty Concentrating, Hallucinations, Homicidal Ideation, Hopelessness, Irritability, Memory Loss, Mood Swings, Panic Attacks, Paranoia, Suicidal Ideation, Visual Hallucinations, Tactile Hallucinations, Other - Endocrine Endocrine: absent: As Per HPI, Change in Body Appearance, Change in Libido, Cold Intolorance, Deepening of Voice, Excessive Sweating, Fatigue, Flushing, Heat Intolorance, Increase in Ring/Shoe/Hat Size, Palpitations, Polydipsia, Polyphagia, Polyuria, Other - Hematologic/Lymphatic Hematologic: absent: As Per HPI, Easy Bleeding, Easy Bruising, Lymphadenopathy, Other Past Patient History - Infectious Disease Hx of Infectious Diseases: None - Past Medical History & Family History Past Medical History?: Yes - Past Social History Smoking Status: cigars - CARDIAC Hx Hypertension: Yes Hx Peripheral Edema: Yes - PULMONARY Hx Respiratory Disorders: No - NEUROLOGICAL Hx Neurological Disorder: No - HEENT Hx HEENT Problems: No - RENAL Hx Chronic Kidney Disease: No - HEMATOLOGICAL/ONCOLOGICAL Hx Human Immunodeficiency Virus (HIV): Yes - INTEGUMENTARY Hx Dermatological Problems: Yes Other/Comment: ULCER BOTTOM LEFT FOOT LEFT FOOT SUTURE LINES TOES - MUSCULOSKELETAL/RHEUMATOLOGICAL Hx Musculoskeletal Disorders: Yes Hx Falls: Yes Hx Osteomyelitis: Yes (LEFT FOOT, receiving daily infusion) - GASTROINTESTINAL Hx Gastrointestinal Disorders: No - GENITOURINARY/GYNECOLOGICAL Hx Genitourinary Disorders: No - PSYCHIATRIC Hx Depression: Yes Hx Substance Use: Yes (OCCASIONALLY) - ANESTHESIA Hx Anesthesia: Yes Hx Anesthesia Reactions: No (unknown) Meds Allergies/Adverse Reactions: Allergies Allergy/AdvReac Type Severity Reaction Status Date / Time acetaminophen [From Tylenol] Allergy RASH Verified 07/30/17 16:06 aspirin Allergy RASH Verified 07/30/17 16:06 hydromorphone [From Dilaudid] Allergy Verified 07/30/17 16:06 ketorolac tromethamine Allergy RASH Verified 07/30/17 16:06 [From Toradol] meperidine HCl [From Demerol] Allergy RASH Verified 07/30/17 16:06 oxycodone HCl [From Percocet] Allergy RASH Verified 07/30/17 16:06 peas Allergy ANAPHYLAXIS Verified 07/30/17 16:06 propoxyphene napsylate Allergy RASH Verified 07/30/17 16:06 [From Darvocet-N] - Medications Medications: Current Medications Abacavir Sulfate (Ziagen) 300 mg PO BID [facility] PRN Reason: Protocol Last Admin: 08/01/17 10:50 Dose: 300 mg Amlodipine Besylate (Norvasc) 10 mg PO DAILY [facility] Last Admin: 08/01/17 10:53 Dose: Not Given Calcitriol (Rocaltrol) 0.25 mcg PO TTS [facility] Last Admin: 07/31/17 10:17 Dose: Not Given Dolutegravir Sodium (Tivicay) 50 mg PO DAILY [facility] PRN Reason: Protocol Last Admin: 08/01/17 10:50 Dose: 50 mg Epoetin Anival (Procrit) 20,000 unit SC TTS [facility] Cefepime HCl 1 gm/ Dextrose 50 mls @ 100 mls/hr IVPB DAILY [facility] PRN Reason: Protocol Last Admin: 08/01/17 10:49 Dose: 100 mls/hr Insulin Aspart (Novolog) 16 unit SC BID [facility] Last Admin: 08/01/17 10:48 Dose: Not Given Insulin Glargine (Lantus) 16 unit SC HS [facility] Last Admin: 07/31/17 22:45 Dose: Not Given Insulin Human Regular (Novolin R) 0 unit SC ACHS [facility] PRN Reason: Protocol Last Admin: 08/01/17 12:06 Dose: 3 unit Labetalol HCl (Normodyne) 300 mg PO Q8H [facility] Last Admin: 08/01/17 08:10 Dose: 300 mg Lamivudine (Epivir) 150 mg PO DAILY [facility] PRN Reason: Protocol Last Admin: 08/01/17 10:50 Dose: 150 mg Morphine Sulfate (Morphine) 2 mg IV Q4 PRN PRN Reason: Pain, severe (8-10) Last Admin: 08/01/17 11:50 Dose: 2 mg Ondansetron HCl (Zofran Inj) 4 mg IVP Q6H PRN PRN Reason: Nausea/Vomiting Last Admin: 08/01/17 08:08 Dose: 4 mg Saccharomyces Boulardii (Florastor) 250 mg PO BID [facility] Last Admin: 08/01/17 10:48 Dose: 250 mg Sertraline HCl (Zoloft) 50 mg PO DAILY [facility] Last Admin: 08/01/17 10:48 Dose: 50 mg Sodium Bicarbonate (Sodium Bicarbonate Tab) 650 mg PO Q8 [facility] Last Admin: 08/01/17 06:11 Dose: 650 mg Vitamin B Complex/Vit C/Folic Acid (Nephro-Rosario) 1 tab PO 0800 [facility] Last Admin: 08/01/17 08:09 Dose: 1 tab Physical Exam - Constitutional Appears: Chronically Ill - Head Exam Head Exam: ATRAUMATIC - Eye Exam Eye Exam: PERRL - ENT Exam ENT Exam: Mucous Membranes Dry - Neck Exam Neck exam: Negative for: Lymphadenopathy - Respiratory Exam Respiratory Exam: Decreased Breath Sounds - Cardiovascular Exam Cardiovascular Exam: REGULAR RHYTHM - GI/Abdominal Exam GI & Abdominal Exam: Diminished Bowel Sounds, Soft. absent: Tenderness - Rectal Exam Rectal Exam: Deferred - Exam Exam: NORMAL INSPECTION - Extremities Exam Extremities exam: Positive for: pedal edema, tenderness, pedal pulses present. Negative for: calf tenderness - Back Exam Back exam: absent: CVA tenderness (L), CVA tenderness (R) - Neurological Exam Neurological exam: Alert, CN II-XII Intact, Oriented x3, Reflexes Normal - Psychiatric Exam Psychiatric exam: Normal Mood - Skin Skin Exam: Dry Results - Vital Signs Recent Vital Signs: Last Vital Signs Temp 98.8 F 08/01/17 08:00 Pulse 92 H 08/01/17 08:00 Resp 20 08/01/17 08:00 BP 146/88 08/01/17 08:00 Pulse Ox 100 08/01/17 08:00 - Labs Result Diagrams: 08/01/17 11:16 08/01/17 09:17 Labs: Laboratory Results - last 24 hr 07/31/17 07/31/17 08/01/17 16:59 21:33 08:03 WBC RBC Hgb Hct MCV MCH MCHC RDW Plt Count MPV Neut % (Auto) Lymph % (Auto) Fannin % (Auto) Eos % (Auto) Baso % (Auto) Neut # (Auto) Lymph # (Auto) Fannin # (Auto) Eos # (Auto) Baso # (Auto) Sodium Potassium Chloride Carbon Dioxide Anion Gap BUN Creatinine Est GFR ( Amer) Est GFR (Non-Af Amer) POC Glucose (mg/dL) 207 H 164 H 126 H Random Glucose Calcium Total Bilirubin AST ALT Alkaline Phosphatase Total Protein Albumin Globulin Albumin/Globulin Ratio 08/01/17 08/01/17 08/01/17 09:17 11:00 11:16 WBC 10.1 RBC 2.28 L Hgb 6.6 L Hct 19.7 L MCV 86.3 MCH 28.7 MCHC 33.3 RDW 16.2 H Plt Count 443 H MPV 6.5 L Neut % (Auto) 66.8 Lymph % (Auto) 18.7 L Fannin % (Auto) 9.7 Eos % (Auto) 4.4 H Baso % (Auto) 0.4 Neut # (Auto) 6.8 Lymph # (Auto) 1.9 Fannin # (Auto) 1.0 H Eos # (Auto) 0.5 Baso # (Auto) 0.0 Sodium 138 Potassium 4.6 Chloride 109 H Carbon Dioxide 21 L Anion Gap 13 BUN 43 H Creatinine 3.2 H Est GFR ( Amer) 20 Est GFR (Non-Af Amer) 16 POC Glucose (mg/dL) 217 H Random Glucose 125 H Calcium 8.4 L Total Bilirubin 0.3 AST 33 ALT 14 Alkaline Phosphatase 141 H Total Protein 8.1 Albumin 2.5 L Globulin 5.6 H Albumin/Globulin Ratio 0.5 L Assessment & Plan (1) Anemia Status: Acute (2) Chronic ulcer of left leg Status: Chronic Priority: Medium Onset Date: 02/13/16 (3) HIV disease Status: Chronic (4) GAEL (acute kidney injury) Status: Acute Priority: Medium (5) Abscess and cellulitis Status: Acute - Assessment and Plan (Free Text) Assessment: unstable on feet- left foot needs amputation which pt refuses poor prognosis unsafe discharge
[2017-08-01] MEDS ORDERED: Vancomycin 1 gm/NS 200 ml 1 GM/200 ML BAG IVPB STA (12:48)
--- NOTE | 2017-08-01 12:53 | CP.PCM.PN ---
Subjective - Date & Time of Evaluation Date of Evaluation: 08/01/17 Time of Evaluation: 12:53 - Subjective Subjective: 36 y/o female seen at bedside 1 day s/p left foot incision and drainage of abscess and sinus tract with multiple infected diabetic ulcerations. Admits to having pain yesterday postoperatively and had a loraine night of sleep. At present is not having any pain and does not want dressing change as she does not want to feel more pain. Denies F/C/N/V/CP/SOB Objective - Vital Signs/Intake and Output Vital Signs (last 24 hours): Temp Pulse Resp BP Pulse Ox 98.8 F 92 H 20 146/88 100 08/01/17 08:00 08/01/17 08:00 08/01/17 08:00 08/01/17 08:00 08/01/17 08:00 Intake and Output: 08/01/17 08/01/17 06:59 18:59 Intake Total 240 200 Output Total 500 Balance 240 -300 - Medications Medications: Current Medications Abacavir Sulfate (Ziagen) 300 mg PO BID [facility] PRN Reason: Protocol Last Admin: 08/01/17 10:50 Dose: 300 mg Amlodipine Besylate (Norvasc) 10 mg PO DAILY [facility] Last Admin: 08/01/17 10:53 Dose: Not Given Calcitriol (Rocaltrol) 0.25 mcg PO TTS [facility] Last Admin: 07/31/17 10:17 Dose: Not Given Dolutegravir Sodium (Tivicay) 50 mg PO DAILY [facility] PRN Reason: Protocol Last Admin: 08/01/17 10:50 Dose: 50 mg Epoetin Anival (Procrit) 20,000 unit SC TTS [facility] Cefepime HCl 1 gm/ Dextrose 50 mls @ 100 mls/hr IVPB DAILY [facility] PRN Reason: Protocol Last Admin: 08/01/17 10:49 Dose: 100 mls/hr Vancomycin/Sodium Chloride (Vancomycin 1 Gm/Ns 200 Ml) 1 gm in 200 mls @ 133.333 mls/hr IVPB STAT STA PRN Reason: Protocol Stop: 08/01/17 14:17 Insulin Aspart (Novolog) 16 unit SC BID [facility] Last Admin: 08/01/17 10:48 Dose: Not Given Insulin Glargine (Lantus) 16 unit SC HS [facility] Last Admin: 07/31/17 22:45 Dose: Not Given Insulin Human Regular (Novolin R) 0 unit SC ACHS [facility] PRN Reason: Protocol Last Admin: 08/01/17 12:06 Dose: 3 unit Labetalol HCl (Normodyne) 300 mg PO Q8H [facility] Last Admin: 08/01/17 08:10 Dose: 300 mg Lamivudine (Epivir) 150 mg PO DAILY [facility] PRN Reason: Protocol Last Admin: 08/01/17 10:50 Dose: 150 mg Morphine Sulfate (Morphine) 2 mg IV Q4 PRN PRN Reason: Pain, severe (8-10) Last Admin: 08/01/17 11:50 Dose: 2 mg Ondansetron HCl (Zofran Inj) 4 mg IVP Q6H PRN PRN Reason: Nausea/Vomiting Last Admin: 08/01/17 08:08 Dose: 4 mg Saccharomyces Boulardii (Florastor) 250 mg PO BID [facility] Last Admin: 08/01/17 10:48 Dose: 250 mg Sertraline HCl (Zoloft) 50 mg PO DAILY [facility] Last Admin: 08/01/17 10:48 Dose: 50 mg Sodium Bicarbonate (Sodium Bicarbonate Tab) 650 mg PO Q8 [facility] Last Admin: 08/01/17 06:11 Dose: 650 mg Vitamin B Complex/Vit C/Folic Acid (Nephro-Rosario) 1 tab PO 0800 [facility] Last Admin: 08/01/17 08:09 Dose: 1 tab - Labs Labs: 08/01/17 11:16 08/01/17 09:17 - Constitutional Appears: Well, Non-toxic, No Acute Distress - Extremities Exam Additional comments: Left lower extremity dressing clean, dry and intact No strikethrough present - Neurological Exam Neurological Exam: Alert, Awake, Oriented x3 - Psychiatric Exam Psychiatric exam: Normal Affect, Normal Mood Assessment and Plan - Assessment and Plan (Free Text) Assessment: 36 y/o female 1 day s/p left foot incision and drainage of sinus tract and abscess secondary to infected diabetic ulcerations Plan: Pt seen and evaluated at bedside Discussed with attending Dr. Coy Labs and vitals reviewed - afebrile, WBC 10.1 Pt refusing dressing change - left intact Pt continues to refusing transmetatarsal amputation - informed that this will likely lead to eventual below knee amputation of wounds remain infected Pt known for noncompliance with IV abx infusions ID Dr. Del Valle on board, appreciate recs Continue pain mgt per primary team Informed patient that dressing must be changed tomorrow, pt agreed Will continue to follow patient while in house
--- NOTE | 2017-08-01 14:18 | CP.PCM.PN ---
Subjective - Date & Time of Evaluation Date of Evaluation: 08/01/17 Time of Evaluation: 14:18 - Subjective Subjective: pt is seen an examined, follow up consult is dictated #[phone] Objective - Vital Signs/Intake and Output Vital Signs (last 24 hours): Temp Pulse Resp BP Pulse Ox 98.8 F 92 H 20 146/88 100 08/01/17 08:00 08/01/17 08:00 08/01/17 08:00 08/01/17 08:00 08/01/17 08:00 Intake and Output: 08/01/17 08/01/17 06:59 18:59 Intake Total 240 200 Output Total 500 Balance 240 -300 - Medications Medications: Current Medications Abacavir Sulfate (Ziagen) 300 mg PO BID [facility] PRN Reason: Protocol Last Admin: 08/01/17 10:50 Dose: 300 mg Amlodipine Besylate (Norvasc) 10 mg PO DAILY [facility] Last Admin: 08/01/17 10:53 Dose: Not Given Calcitriol (Rocaltrol) 0.25 mcg PO TTS [facility] Last Admin: 07/31/17 10:17 Dose: Not Given Dolutegravir Sodium (Tivicay) 50 mg PO DAILY [facility] PRN Reason: Protocol Last Admin: 08/01/17 10:50 Dose: 50 mg Epoetin Anival (Procrit) 20,000 unit SC TTS [facility] Cefepime HCl 1 gm/ Dextrose 50 mls @ 100 mls/hr IVPB DAILY [facility] PRN Reason: Protocol Last Admin: 08/01/17 10:49 Dose: 100 mls/hr Insulin Aspart (Novolog) 16 unit SC BID [facility] Last Admin: 08/01/17 10:48 Dose: Not Given Insulin Glargine (Lantus) 16 unit SC HS [facility] Last Admin: 07/31/17 22:45 Dose: Not Given Insulin Human Regular (Novolin R) 0 unit SC ACHS [facility] PRN Reason: Protocol Last Admin: 08/01/17 12:06 Dose: 3 unit Labetalol HCl (Normodyne) 300 mg PO Q8H [facility] Last Admin: 08/01/17 08:10 Dose: 300 mg Lamivudine (Epivir) 150 mg PO DAILY [facility] PRN Reason: Protocol Last Admin: 08/01/17 10:50 Dose: 150 mg Morphine Sulfate (Morphine) 2 mg IV Q4 PRN PRN Reason: Pain, severe (8-10) Last Admin: 08/01/17 11:50 Dose: 2 mg Ondansetron HCl (Zofran Inj) 4 mg IVP Q6H PRN PRN Reason: Nausea/Vomiting Last Admin: 08/01/17 08:08 Dose: 4 mg Saccharomyces Boulardii (Florastor) 250 mg PO BID [facility] Last Admin: 08/01/17 10:48 Dose: 250 mg Sertraline HCl (Zoloft) 50 mg PO DAILY [facility] Last Admin: 08/01/17 10:48 Dose: 50 mg Sodium Bicarbonate (Sodium Bicarbonate Tab) 650 mg PO Q8 [facility] Last Admin: 08/01/17 06:11 Dose: 650 mg Vitamin B Complex/Vit C/Folic Acid (Nephro-Rosario) 1 tab PO 0800 [facility] Last Admin: 08/01/17 08:09 Dose: 1 tab - Labs Labs: 08/01/17 11:16 08/01/17 09:17
[2017-08-01 15:52] LABS: IRON 16 ug/dL (37-170)
[2017-08-01 16:01] LABS: % IRON SATURATION 9 (20-55); TOTAL IRON BINDING CAPACITY 188 ug/dL (250-450)
[2017-08-01 16:59] LABS: FOLATE 13.2 ng/mL
--- NOTE | 2017-08-01 19:31 | CP.PCM.PN ---
Subjective - Date & Time of Evaluation Date of Evaluation: 08/01/17 Time of Evaluation: 12:00 - Subjective Subjective: CHRONIC INF PRESENT. ANEMIA CRF. HTN. OM LT FOOT. Objective - Vital Signs/Intake and Output Vital Signs (last 24 hours): Temp Pulse Resp BP Pulse Ox 98.2 F 96 H 20 143/84 99 08/01/17 15:25 08/01/17 15:25 08/01/17 15:25 08/01/17 15:25 08/01/17 15:25 Intake and Output: 08/01/17 08/02/17 18:59 06:59 Intake Total 200 Output Total 500 Balance -300 - Medications Medications: Current Medications Abacavir Sulfate (Ziagen) 300 mg PO BID [facility] PRN Reason: Protocol Last Admin: 08/01/17 17:52 Dose: Not Given Amlodipine Besylate (Norvasc) 10 mg PO DAILY [facility] Last Admin: 08/01/17 10:53 Dose: Not Given Calcitriol (Rocaltrol) 0.25 mcg PO TTS [facility] Last Admin: 07/31/17 10:17 Dose: Not Given Dolutegravir Sodium (Tivicay) 50 mg PO DAILY [facility] PRN Reason: Protocol Last Admin: 08/01/17 10:50 Dose: 50 mg Epoetin Anival (Procrit) 20,000 unit SC TTS [facility] Ferric Sodium Gluconate Complex (Ferrlecit) 125 mg IVPB DAILY [facility] Stop: 08/10/17 10:01 Cefepime HCl 1 gm/ Dextrose 50 mls @ 100 mls/hr IVPB DAILY [facility] PRN Reason: Protocol Last Admin: 08/01/17 10:49 Dose: 100 mls/hr Insulin Aspart (Novolog) 16 unit SC BID [facility] Last Admin: 08/01/17 17:52 Dose: Not Given Insulin Glargine (Lantus) 16 unit SC HS [facility] Last Admin: 07/31/17 22:45 Dose: Not Given Insulin Human Regular (Novolin R) 0 unit SC ACHS [facility] PRN Reason: Protocol Last Admin: 08/01/17 16:30 Dose: Not Given Labetalol HCl (Normodyne) 300 mg PO Q8H [facility] Last Admin: 08/01/17 16:00 Dose: Not Given Lamivudine (Epivir) 150 mg PO DAILY [facility] PRN Reason: Protocol Last Admin: 08/01/17 10:50 Dose: 150 mg Morphine Sulfate (Morphine) 2 mg IV Q4 PRN PRN Reason: Pain, severe (8-10) Last Admin: 08/01/17 15:45 Dose: 2 mg Ondansetron HCl (Zofran Inj) 4 mg IVP Q6H PRN PRN Reason: Nausea/Vomiting Last Admin: 08/01/17 15:45 Dose: 4 mg Saccharomyces Boulardii (Florastor) 250 mg PO BID [facility] Last Admin: 08/01/17 17:50 Dose: Not Given Sertraline HCl (Zoloft) 50 mg PO DAILY [facility] Last Admin: 08/01/17 10:48 Dose: 50 mg Sodium Bicarbonate (Sodium Bicarbonate Tab) 650 mg PO Q8 [facility] Last Admin: 08/01/17 14:21 Dose: 650 mg Vitamin B Complex/Vit C/Folic Acid (Nephro-Rosario) 1 tab PO 0800 [facility] Last Admin: 08/01/17 08:09 Dose: 1 tab - Labs Labs: 08/01/17 11:16 08/01/17 09:17 - Constitutional Appears: No Acute Distress, Chronically Ill - Eye Exam Eye Exam: EOMI, Normal appearance, PERRL Pupil Exam: NORMAL ACCOMODATION, PERRL - ENT Exam ENT Exam: Mucous Membranes Moist, Normal Exam - Neck Exam Neck Exam: Full ROM, Normal Inspection. absent: Lymphadenopathy - Respiratory Exam Respiratory Exam: Clear to Ausculation Bilateral, NORMAL BREATHING PATTERN - Cardiovascular Exam Cardiovascular Exam: REGULAR RHYTHM, +S1, +S2. absent: Murmur - GI/Abdominal Exam GI & Abdominal Exam: Soft, Normal Bowel Sounds. absent: Tenderness - Extremities Exam Extremities Exam: Full ROM, Normal Capillary Refill, Normal Inspection. absent : Joint Swelling, Pedal Edema - Neurological Exam Neurological Exam: Alert, Awake, CN II-XII Intact, Normal Gait, Oriented x3 - Psychiatric Exam Psychiatric exam: Normal Affect, Normal Mood Assessment and Plan - Assessment and Plan (Free Text) Assessment: SAME. Plan: CT PRESENT MANAGEMENT. ABTS.
[2017-08-01] MEDS: (Lantus) Insulin Glargine, Recombinant SC SCH (21:48)
[2017-08-02] MEDS: Labetalol Hydrochloride 300 mg Tab PO SCH ×2 (00:11→16:37)
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
[2017-08-02] MEDS: (Novolin R) Insulin Human Regular 100 units/ml vial SC SCH ×4 (07:41→22:53)
[2017-08-02] MEDS: Ferric Sodium Gluconat Complex 62.5 mg/5 ml Vial IVPB SCH (09:20)
[2017-08-02] MEDS: (Novolog) Insulin Aspart, Recombinant 100 u/ml 10 ml vial SC SCH ×2 (09:22→17:53)
--- NOTE | 2017-08-02 10:34 | CP.PCM.PN ---
<Miranda Frausto - Last Filed: 08/02/17 16:26> Subjective - Date & Time of Evaluation Date of Evaluation: 08/02/17 Time of Evaluation: 10:32 - Subjective Subjective: Podiatry Progress note for Dr. Coy 36 y/o female seen at bedside with Dr. Coy 2 day s/p left foot incision and drainage of abscess and sinus tract with multiple infected diabetic ulcerations. Denies F/C/N/V/CP/SOB Objective - Vital Signs/Intake and Output Vital Signs (last 24 hours): Temp Pulse Resp BP Pulse Ox 98.4 F 79 18 179/79 H 95 08/02/17 07:10 08/02/17 07:10 08/02/17 07:10 08/02/17 07:10 08/02/17 07:10 Intake and Output: 08/02/17 08/02/17 06:59 18:59 Intake Total 150 Output Total 450 Balance -300 - Medications Medications: Current Medications Abacavir Sulfate (Ziagen) 300 mg PO BID [facility] PRN Reason: Protocol Last Admin: 08/01/17 17:52 Dose: Not Given Amlodipine Besylate (Norvasc) 10 mg PO DAILY REPLACED BY [facility] Last Admin: 08/01/17 10:53 Dose: Not Given Calcitriol (Rocaltrol) 0.25 mcg PO TTS REPLACED BY [facility] Last Admin: 07/31/17 10:17 Dose: Not Given Dolutegravir Sodium (Tivicay) 50 mg PO DAILY [facility]PLACED BY [facility] PRN Reason: Protocol Last Admin: 08/01/17 10:50 Dose: 50 mg Epoetin Anival (Procrit) 20,000 unit SC TTS REPLACED BY [facility] Ferric Sodium Gluconate Complex (Ferrlecit) 125 mg IVPB DAILY REPLACED BY [facility] Stop: 08/10/17 10:01 Last Admin: 08/02/17 09:20 Dose: 125 mg Cefepime HCl 1 gm/ Dextrose 50 mls @ 100 mls/hr IVPB DAILY REPLACED BY [facility] PRN Reason: Protocol Last Admin: 08/01/17 10:49 Dose: 100 mls/hr Insulin Aspart (Novolog) 16 unit SC BID REPLACED BY [facility] Last Admin: 08/02/17 09:22 Dose: Not Given Insulin Glargine (Lantus) 16 unit SC HS REPLACED BY [facility] Last Admin: 08/01/17 21:48 Dose: Not Given Insulin Human Regular (Novolin R) [address] [facility] REPLACED BY [facility] PRN Reason: Protocol Last Admin: 08/02/17 07:41 Dose: Not Given Labetalol HCl (Normodyne) 300 mg PO Q8H REPLACED BY [facility] Last Admin: 08/02/17 00:11 Dose: Not Given Lamivudine (Epivir) 150 mg PO DAILY REPLACED BY [facility] PRN Reason: Protocol Last Admin: 08/01/17 10:50 Dose: 150 mg Morphine Sulfate (Morphine) 2 mg IV Q4 PRN PRN Reason: Pain, severe (8-10) Last Admin: 08/02/17 09:17 Dose: 2 mg Ondansetron HCl (Zofran Inj) 4 mg IVP Q6H PRN PRN Reason: Nausea/Vomiting Last Admin: 08/01/17 15:45 Dose: 4 mg Saccharomyces Boulardii (Florastor) 250 mg PO BID REPLACED BY [facility] Last Admin: 08/01/17 17:50 Dose: Not Given Sertraline HCl (Zoloft) 50 mg PO DAILY REPLACED BY [facility] Last Admin: 08/01/17 10:48 Dose: 50 mg Sodium Bicarbonate (Sodium Bicarbonate Tab) 650 mg PO Q8 REPLACED BY [facility] Last Admin: 08/02/17 05:11 Dose: 650 mg Vitamin B Complex/Vit C/Folic Acid (Nephro-Rosario) 1 tab PO 0800 REPLACED BY [facility] Last Admin: 08/01/17 08:09 Dose: 1 tab - Labs Labs: 08/01/17 11:16 08/01/17 09:17 - Constitutional Appears: Well, Non-toxic, No Acute Distress - Extremities Exam Additional comments: Left lower extremity focused exam: VASC- DP pulse faintly palpable, skin temp runs warm to warm, cap refill < 4 sec , 3+ pitting edema is noted to dorsum of foot DERM- Full-thickness ulceration noted to dorsal aspect of foot which measures approximately 0.5x4.0x1.5cm (no active drainage, neg purulence, neg malodor with mixed fibrogranular base which tracks proximally 0.5cm , macerated border) , there is a 2nd full-thickness ulceration noted to dorsal-lateral aspect of 5th metatarsal amputation site measures 1.0x4.0x1.5cm with mixed fibrogranular base and somewhat macerated border (no active drainage, no purulence, neg malodor, neg tracking), third ulceration noted just plantar to the 2nd wound measures 0.5x1.0x1.0 cm (mixed fibrogranular base, macerated border, neg tracking, minimal serosang drainage), superficial ulceration noted to distal lateral leg measures approx. 3.0x5.0x0.3cm with mixed fibrogranular base. Lateral midfoot surgical site with all sutrures intact, boggy periwound maceration noted, no productive drainage or discharge expressed. neg PTB, neg fluctuance, gross lichenification of pedal skin NEURO- gross and protective pedal sensation are diminished MSK- tenderness noted to palp of wound sites - Neurological Exam Neurological Exam: Alert, Awake, Oriented x3 - Psychiatric Exam Psychiatric exam: Normal Affect, Normal Mood Assessment and Plan - Assessment and Plan (Free Text) Assessment: 36 y/o female 2 day s/p left foot incision and drainage of sinus tract and abscess secondary to infected diabetic ulcerations Plan: Pt seen and evaluated at bedside with attending Dr. Coy Labs and vitals reviewed - afebrile, WBC 10.1 Dressing changed with packing, 4x4, ABD, kerlix, RAFFY Pt continues to refusing transmetatarsal amputation - informed that this will likely lead to eventual below knee amputation of wounds remain infected Pt known for noncompliance with IV abx infusions ID Dr. Del Valle on board, appreciate recs Continue pain mgt per primary team Will continue to follow patient while in house <Kalpesh Coy - Last Filed: 08/02/17 21:15> Objective - Vital Signs/Intake and Output Vital Signs (last 24 hours): Temp Pulse Resp BP Pulse Ox 98.7 F 89 20 135/80 96 08/02/17 20:15 08/02/17 20:15 08/02/17 20:15 08/02/17 20:15 08/02/17 15:00 Intake and Output: 08/02/17 08/03/17 18:59 06:59 Intake Total 500 Output Total 450 Balance 50 - Medications Medications: Current Medications Abacavir Sulfate (Ziagen) 300 mg PO BID [facility] PRN Reason: Protocol Last Admin: 08/02/17 17:59 Dose: 300 mg Amlodipine Besylate (Norvasc) 10 mg PO DAILY [facility] Last Admin: 08/02/17 18:00 Dose: 10 mg Calcitriol (Rocaltrol) 0.25 mcg PO TTS [facility] Last Admin: 07/31/17 10:17 Dose: Not Given Dolutegravir Sodium (Tivicay) 50 mg PO DAILY REPLACED BY [facility] PRN Reason: Protocol Last Admin: 08/02/17 18:05 Dose: 50 mg Epoetin Anival (Procrit) 20,000 unit SC TTS REPLACED BY [facility] Ferric Sodium Gluconate Complex (Ferrlecit) 125 mg IVPB DAILY REPLACED BY [facility] Stop: 08/10/17 10:01 Last Admin: 08/02/17 09:20 Dose: 125 mg Cefepime HCl 1 gm/ Dextrose 50 mls @ 100 mls/hr IVPB DAILY REPLACED BY [facility] PRN Reason: Protocol Last Admin: 08/02/17 10:25 Dose: 100 mls/hr Insulin Aspart (Novolog) 16 unit SC BID REPLACED BY [facility] Last Admin: 08/02/17 17:53 Dose: Not Given Insulin Glargine (Lantus) 16 unit SC HS REPLACED BY [facility] Last Admin: 08/01/17 21:48 Dose: Not Given Insulin Human Regular (Novolin R) [address] [facility] REPLACED BY [facility] PRN Reason: Protocol Last Admin: 08/02/17 16:30 Dose: Not Given Labetalol HCl (Normodyne) 300 mg PO Q8H REPLACED BY [facility] Last Admin: 08/02/17 16:37 Dose: Not Given Lamivudine (Epivir) 150 mg PO DAILY REPLACED BY [facility] PRN Reason: Protocol Last Admin: 08/02/17 18:04 Dose: 150 mg Morphine Sulfate (Morphine) 2 mg IV Q4 PRN PRN Reason: Pain, severe (8-10) Last Admin: 08/02/17 18:00 Dose: 2 mg Ondansetron HCl (Zofran Inj) 4 mg IVP Q6H PRN PRN Reason: Nausea/Vomiting Last Admin: 08/02/17 17:59 Dose: 4 mg Saccharomyces Boulardii (Florastor) 250 mg PO BID REPLACED BY [facility] Last Admin: 08/02/17 17:59 Dose: 250 mg Sertraline HCl (Zoloft) 50 mg PO DAILY REPLACED BY [facility] Last Admin: 08/02/17 18:05 Dose: 50 mg Sodium Bicarbonate (Sodium Bicarbonate Tab) 650 mg PO Q8 REPLACED BY [facility] Last Admin: 08/02/17 16:36 Dose: 650 mg Vitamin B Complex/Vit C/Folic Acid (Nephro-Rosario) 1 tab PO 0800 REPLACED BY [facility] Last Admin: 08/02/17 17:59 Dose: 1 tab - Labs Labs: 08/02/17 14:21 08/02/17 14:21
--- NOTE | 2017-08-02 10:41 | CP.PCM.PN ---
Subjective - Date & Time of Evaluation Date of Evaluation: 08/02/17 Time of Evaluation: 07:00 - Subjective Subjective: await OR cultures IV rx in progress Objective - Vital Signs/Intake and Output Vital Signs (last 24 hours): Temp Pulse Resp BP Pulse Ox 98.4 F 79 18 179/79 H 95 08/02/17 07:10 08/02/17 07:10 08/02/17 07:10 08/02/17 07:10 08/02/17 07:10 Intake and Output: 08/02/17 08/02/17 06:59 18:59 Intake Total 150 Output Total 450 Balance -300 - Medications Medications: Current Medications Abacavir Sulfate (Ziagen) 300 mg PO BID [facility] PRN Reason: Protocol Last Admin: 08/01/17 17:52 Dose: Not Given Amlodipine Besylate (Norvasc) 10 mg PO DAILY [facility] Last Admin: 08/01/17 10:53 Dose: Not Given Calcitriol (Rocaltrol) 0.25 mcg PO TTS [facility] Last Admin: 07/31/17 10:17 Dose: Not Given Dolutegravir Sodium (Tivicay) 50 mg PO DAILY [facility] PRN Reason: Protocol Last Admin: 08/01/17 10:50 Dose: 50 mg Epoetin Anival (Procrit) 20,000 unit SC TTS [facility] Ferric Sodium Gluconate Complex (Ferrlecit) 125 mg IVPB DAILY [facility] Stop: 08/10/17 10:01 Last Admin: 08/02/17 09:20 Dose: 125 mg Cefepime HCl 1 gm/ Dextrose 50 mls @ 100 mls/hr IVPB DAILY [facility] PRN Reason: Protocol Last Admin: 08/01/17 10:49 Dose: 100 mls/hr Insulin Aspart (Novolog) 16 unit SC BID [facility] Last Admin: 08/02/17 09:22 Dose: Not Given Insulin Glargine (Lantus) 16 unit SC HS [facility] Last Admin: 08/01/17 21:48 Dose: Not Given Insulin Human Regular (Novolin R) 0 unit SC ACHS [facility] PRN Reason: Protocol Last Admin: 08/02/17 07:41 Dose: Not Given Labetalol HCl (Normodyne) 300 mg PO Q8H [facility] Last Admin: 08/02/17 00:11 Dose: Not Given Lamivudine (Epivir) 150 mg PO DAILY [facility] PRN Reason: Protocol Last Admin: 08/01/17 10:50 Dose: 150 mg Morphine Sulfate (Morphine) 2 mg IV Q4 PRN PRN Reason: Pain, severe (8-10) Last Admin: 08/02/17 09:17 Dose: 2 mg Ondansetron HCl (Zofran Inj) 4 mg IVP Q6H PRN PRN Reason: Nausea/Vomiting Last Admin: 08/01/17 15:45 Dose: 4 mg Saccharomyces Boulardii (Florastor) 250 mg PO BID [facility] Last Admin: 08/01/17 17:50 Dose: Not Given Sertraline HCl (Zoloft) 50 mg PO DAILY [facility] Last Admin: 08/01/17 10:48 Dose: 50 mg Sodium Bicarbonate (Sodium Bicarbonate Tab) 650 mg PO Q8 [facility] Last Admin: 08/02/17 05:11 Dose: 650 mg Vitamin B Complex/Vit C/Folic Acid (Nephro-Rosario) 1 tab PO 0800 [facility] Last Admin: 08/01/17 08:09 Dose: 1 tab - Labs Labs: 08/01/17 11:16 08/01/17 09:17 - Constitutional Appears: Non-toxic, Chronically Ill - Head Exam Head Exam: NORMOCEPHALIC - Eye Exam Eye Exam: PERRL - ENT Exam ENT Exam: Mucous Membranes Dry - Neck Exam Neck Exam: absent: Lymphadenopathy - Respiratory Exam Respiratory Exam: Decreased Breath Sounds - Cardiovascular Exam Cardiovascular Exam: REGULAR RHYTHM - GI/Abdominal Exam GI & Abdominal Exam: Distended - Rectal Exam Rectal Exam: Deferred - Exam Exam: NORMAL INSPECTION - Extremities Exam Extremities Exam: absent: Pedal Edema - Back Exam Back Exam: absent: CVA tenderness (L), CVA tenderness (R) - Neurological Exam Neurological Exam: Alert, Awake, Oriented x3 Neuro motor strength exam: Left Upper Extremity: 3, Right Upper Extremity: 3, Left Lower Extremity: 3, Right Lower Extremity: 3 - Psychiatric Exam Psychiatric exam: Depressed Assessment and Plan (1) Anemia Status: Acute (2) Chronic ulcer of left leg Status: Chronic (3) HIV disease Status: Chronic (4) GAEL (acute kidney injury) Status: Acute (5) Abscess and cellulitis Status: Acute
--- NOTE | 2017-08-02 12:24 | CP.PCM.PN ---
Subjective - Date & Time of Evaluation Date of Evaluation: 08/02/17 Time of Evaluation: 12:21 - Subjective Subjective: C/O LT FOOT PAIN. NO FEVER. ANEMIA PRESENT. CRF. Objective - Vital Signs/Intake and Output Vital Signs (last 24 hours): Temp Pulse Resp BP Pulse Ox 98.4 F 79 18 179/79 H 95 08/02/17 07:10 08/02/17 07:10 08/02/17 07:10 08/02/17 07:10 08/02/17 07:10 Intake and Output: 08/02/17 08/02/17 06:59 18:59 Intake Total 150 Output Total 450 Balance -300 - Medications Medications: Current Medications Abacavir Sulfate (Ziagen) 300 mg PO BID [facility] PRN Reason: Protocol Last Admin: 08/01/17 17:52 Dose: Not Given Amlodipine Besylate (Norvasc) 10 mg PO DAILY [facility] Last Admin: 08/01/17 10:53 Dose: Not Given Calcitriol (Rocaltrol) 0.25 mcg PO TTS [facility] Last Admin: 07/31/17 10:17 Dose: Not Given Dolutegravir Sodium (Tivicay) 50 mg PO DAILY [facility] PRN Reason: Protocol Last Admin: 08/01/17 10:50 Dose: 50 mg Epoetin Anival (Procrit) 20,000 unit SC TTS [facility] Ferric Sodium Gluconate Complex (Ferrlecit) 125 mg IVPB DAILY [facility] Stop: 08/10/17 10:01 Last Admin: 08/02/17 09:20 Dose: 125 mg Cefepime HCl 1 gm/ Dextrose 50 mls @ 100 mls/hr IVPB DAILY [facility] PRN Reason: Protocol Last Admin: 08/02/17 10:25 Dose: 100 mls/hr Insulin Aspart (Novolog) 16 unit SC BID [facility] Last Admin: 08/02/17 09:22 Dose: Not Given Insulin Glargine (Lantus) 16 unit SC HS [facility] Last Admin: 08/01/17 21:48 Dose: Not Given Insulin Human Regular (Novolin R) 0 unit SC ACHS [facility] PRN Reason: Protocol Last Admin: 08/02/17 12:03 Dose: Not Given Labetalol HCl (Normodyne) 300 mg PO Q8H [facility] Last Admin: 08/02/17 00:11 Dose: Not Given Lamivudine (Epivir) 150 mg PO DAILY [facility] PRN Reason: Protocol Last Admin: 08/01/17 10:50 Dose: 150 mg Morphine Sulfate (Morphine) 2 mg IV Q4 PRN PRN Reason: Pain, severe (8-10) Last Admin: 08/02/17 09:17 Dose: 2 mg Ondansetron HCl (Zofran Inj) 4 mg IVP Q6H PRN PRN Reason: Nausea/Vomiting Last Admin: 08/02/17 11:36 Dose: 4 mg Saccharomyces Boulardii (Florastor) 250 mg PO BID [facility] Last Admin: 08/01/17 17:50 Dose: Not Given Sertraline HCl (Zoloft) 50 mg PO DAILY [facility] Last Admin: 08/01/17 10:48 Dose: 50 mg Sodium Bicarbonate (Sodium Bicarbonate Tab) 650 mg PO Q8 [facility] Last Admin: 08/02/17 05:11 Dose: 650 mg Vitamin B Complex/Vit C/Folic Acid (Nephro-Rosario) 1 tab PO 0800 [facility] Last Admin: 08/01/17 08:09 Dose: 1 tab - Labs Labs: 08/01/17 11:16 08/01/17 09:17 - Constitutional Appears: No Acute Distress, Chronically Ill - Eye Exam Eye Exam: EOMI, Normal appearance, PERRL Pupil Exam: NORMAL ACCOMODATION, PERRL - ENT Exam ENT Exam: Mucous Membranes Moist, Normal Exam - Neck Exam Neck Exam: Full ROM, Normal Inspection. absent: Lymphadenopathy - Respiratory Exam Respiratory Exam: Clear to Ausculation Bilateral, NORMAL BREATHING PATTERN - Cardiovascular Exam Cardiovascular Exam: REGULAR RHYTHM, +S1, +S2. absent: Murmur - GI/Abdominal Exam GI & Abdominal Exam: Soft, Normal Bowel Sounds. absent: Tenderness - Extremities Exam Additional comments: SAME - Neurological Exam Neurological Exam: Alert, Awake, CN II-XII Intact, Normal Gait, Oriented x3 - Psychiatric Exam Psychiatric exam: Normal Affect, Normal Mood Assessment and Plan - Assessment and Plan (Free Text) Assessment: PT NOT COOPERATIVE. OM LT FOOT. ANEMIA. Plan: FOR BLOOD TRANSFUSION. CT IV ABTS.
[2017-08-02 14:30] LABS: BASO % 0.4 % (0.0-2.0); EOS # 0.5 K/uL (0.0-0.7); EOS % 4.4 % (0.0-4.0); HEMOGLOBIN 6.6 g/dL (11.0-16.0); LYMPH # 2.2 K/uL (1.0-4.3); LYMPH % 20.9 % (20.0-40.0); MEAN CELL VOLUME 85.4 fL (81.0-99.0); MEAN CORPUSCULAR HEMOGLOBIN 28.7 pg (27.0-31.0); MEAN CORPUSCULAR HGB CONC 33.6 g/dL (33.0-37.0); MONO # 1.1 K/uL (0.0-0.8); NEUT # 6.8 K/uL (1.8-7.0); NEUT % 64.3 % (50.0-75.0); RBC 2.31 Mil/uL (3.80-5.20); RED CELL DISTRIBUTION WIDTH 16.8 % (11.5-14.5); WHITE BLOOD COUNT 10.5 K/uL (4.8-10.8)
[2017-08-02 14:44] LABS: ALB/GLOB RATIO 0.5 (1.0-2.1); ALBUMIN 2.6 g/dL (3.5-5.0); CALCIUM 8.8 mg/dl (8.6-10.4)
--- NOTE | 2017-08-02 15:41 | RAD ---
PROCEDURE: Left Foot Radiographs. HISTORY: infection left foot COMPARISON: 11/06/2016, 06/03/2017, [id number] radiographs left foot FINDINGS: BONES: Stable postoperative changes. JOINTS: No significant interval change compared to the prior examination(s). SOFT TISSUES: The visualized left lower extremity including foot and ankle are markedly edematous, progressive compared to the prior study. There appear to be both plantar and ventral ulcers. There also appears to be air within the soft tissues at the tarsal metatarsal junctions. OTHER FINDINGS: None. IMPRESSION: Profound edema of progressive compared to the prior study. Deep ulcers particularly laterally. Air within the soft tissues suggestive of acute infectious process.
[2017-08-02] MEDS: Multivitamin Vitamin B Complex (Nephro-Vite) Tab PO SCH (17:59)
[2017-08-02] MEDS: Saccharomyces Boulardi 250 mg Cap PO SCH (17:59)
--- NOTE | 2017-08-02 20:14 | CP.PCM.PN ---
Subjective - Date & Time of Evaluation Date of Evaluation: 08/02/17 Time of Evaluation: 20:14 - Subjective Subjective: pt is seen and examined, follow up consult is dictated #[id number] will request hematology consult for anemia r/o MM Objective - Vital Signs/Intake and Output Vital Signs (last 24 hours): Temp Pulse Resp BP Pulse Ox 98.1 F 93 H 20 147/84 96 08/02/17 19:15 08/02/17 19:15 08/02/17 19:15 08/02/17 19:15 08/02/17 15:00 Intake and Output: 08/02/17 08/03/17 18:59 06:59 Intake Total 500 Output Total 450 Balance 50 - Medications Medications: Current Medications Abacavir Sulfate (Ziagen) 300 mg PO BID [facility] PRN Reason: Protocol Last Admin: 08/02/17 17:59 Dose: 300 mg Amlodipine Besylate (Norvasc) 10 mg PO DAILY [facility] Last Admin: 08/02/17 18:00 Dose: 10 mg Calcitriol (Rocaltrol) 0.25 mcg PO TTS [facility] Last Admin: 07/31/17 10:17 Dose: Not Given Dolutegravir Sodium (Tivicay) 50 mg PO DAILY [facility] PRN Reason: Protocol Last Admin: 08/02/17 18:05 Dose: 50 mg Epoetin Anival (Procrit) 20,000 unit SC TTS [facility] Ferric Sodium Gluconate Complex (Ferrlecit) 125 mg IVPB DAILY [facility] Stop: 08/10/17 10:01 Last Admin: 08/02/17 09:20 Dose: 125 mg Cefepime HCl 1 gm/ Dextrose 50 mls @ 100 mls/hr IVPB DAILY [facility] PRN Reason: Protocol Last Admin: 08/02/17 10:25 Dose: 100 mls/hr Insulin Aspart (Novolog) 16 unit SC BID [facility] Last Admin: 08/02/17 17:53 Dose: Not Given Insulin Glargine (Lantus) 16 unit SC HS [facility] Last Admin: 08/01/17 21:48 Dose: Not Given Insulin Human Regular (Novolin R) 0 unit SC ACHS [facility] PRN Reason: Protocol Last Admin: 08/02/17 16:30 Dose: Not Given Labetalol HCl (Normodyne) 300 mg PO Q8H [facility] Last Admin: 08/02/17 16:37 Dose: Not Given Lamivudine (Epivir) 150 mg PO DAILY [facility] PRN Reason: Protocol Last Admin: 08/02/17 18:04 Dose: 150 mg Morphine Sulfate (Morphine) 2 mg IV Q4 PRN PRN Reason: Pain, severe (8-10) Last Admin: 08/02/17 18:00 Dose: 2 mg Ondansetron HCl (Zofran Inj) 4 mg IVP Q6H PRN PRN Reason: Nausea/Vomiting Last Admin: 08/02/17 17:59 Dose: 4 mg Saccharomyces Boulardii (Florastor) 250 mg PO BID [facility] Last Admin: 08/02/17 17:59 Dose: 250 mg Sertraline HCl (Zoloft) 50 mg PO DAILY [facility] Last Admin: 08/02/17 18:05 Dose: 50 mg Sodium Bicarbonate (Sodium Bicarbonate Tab) 650 mg PO Q8 [facility] Last Admin: 08/02/17 16:36 Dose: 650 mg Vitamin B Complex/Vit C/Folic Acid (Nephro-Rosario) 1 tab PO 0800 [facility] Last Admin: 08/02/17 17:59 Dose: 1 tab - Labs Labs: 08/02/17 14:21 08/02/17 14:21
[2017-08-02] MEDS: (Lantus) Insulin Glargine, Recombinant SC SCH (22:22)
--- NOTE | 2017-08-02 22:24 | CP.PCM.CON ---
History of Present Illness - History of Present Illness History of Present Illness: 36 year old transgender female with a history of DM, HTN, HIV, CKD, chronic left foot osteomyelitis, admitted with worsening drainage from the left foot s/p I+D, with anemia, and monoclonal gammopathy. The patient hgb was found to be 6.6. She is currently s/p 1U PRBC and scheduled to receive a 2nd unit overnight. She does note to some oozing of blood from her infected foot. Otherwise, denies abnormal bleeding and bruising. Past medical history: DM, HTN, HIV, CKD, chronic left foot osteomyelitis Past surgical history: left foot I+D Family history: Denies hematologic and oncologic problems Social history: Smokes cigars, denies alcohol, smokes marijuana Allergies: Several, see list. Review of systems: All remaining review of systems including HEENT, cardiovascular, respiratory, gastrointestinal, genitourinary, musculoskeletal, dermatologic, neurologic, and psychiatric are negative unless mentioned in the HPI. Past Patient History - Infectious Disease Hx of Infectious Diseases: None - Past Medical History & Family History Past Medical History?: Yes - Past Social History Smoking Status: cigars - CARDIAC Hx Hypertension: Yes Hx Peripheral Edema: Yes - PULMONARY Hx Respiratory Disorders: No - NEUROLOGICAL Hx Neurological Disorder: No - HEENT Hx HEENT Problems: No - RENAL Hx Chronic Kidney Disease: No - HEMATOLOGICAL/ONCOLOGICAL Hx Human Immunodeficiency Virus (HIV): Yes - INTEGUMENTARY Hx Dermatological Problems: Yes Other/Comment: ULCER BOTTOM LEFT FOOT LEFT FOOT SUTURE LINES TOES - MUSCULOSKELETAL/RHEUMATOLOGICAL Hx Musculoskeletal Disorders: Yes Hx Falls: Yes Hx Osteomyelitis: Yes (LEFT FOOT, receiving daily infusion) - GASTROINTESTINAL Hx Gastrointestinal Disorders: No - GENITOURINARY/GYNECOLOGICAL Hx Genitourinary Disorders: No - PSYCHIATRIC Hx Depression: Yes Hx Substance Use: Yes (OCCASIONALLY) - ANESTHESIA Hx Anesthesia: Yes Hx Anesthesia Reactions: No (unknown) Meds Allergies/Adverse Reactions: Allergies Allergy/AdvReac Type Severity Reaction Status Date / Time acetaminophen [From Tylenol] Allergy RASH Verified 07/30/17 16:06 aspirin Allergy RASH Verified 07/30/17 16:06 hydromorphone [From Dilaudid] Allergy Verified 07/30/17 16:06 ketorolac tromethamine Allergy RASH Verified 07/30/17 16:06 [From Toradol] meperidine HCl [From Demerol] Allergy RASH Verified 07/30/17 16:06 oxycodone HCl [From Percocet] Allergy RASH Verified 07/30/17 16:06 peas Allergy ANAPHYLAXIS Verified 07/30/17 16:06 propoxyphene napsylate Allergy RASH Verified 07/30/17 16:06 [From Darvocet-N] - Medications Medications: Current Medications Abacavir Sulfate (Ziagen) 300 mg PO BID [facility] PRN Reason: Protocol Last Admin: 08/02/17 17:59 Dose: 300 mg Amlodipine Besylate (Norvasc) 10 mg PO DAILY [facility] Last Admin: 08/02/17 18:00 Dose: 10 mg Calcitriol (Rocaltrol) 0.25 mcg PO TTS [facility] Last Admin: 07/31/17 10:17 Dose: Not Given Dolutegravir Sodium (Tivicay) 50 mg PO DAILY [facility] PRN Reason: Protocol Last Admin: 08/02/17 18:05 Dose: 50 mg Epoetin Anival (Procrit) 20,000 unit SC TTS [facility] Ferric Sodium Gluconate Complex (Ferrlecit) 125 mg IVPB DAILY [facility] Stop: 08/10/17 10:01 Last Admin: 08/02/17 09:20 Dose: 125 mg Cefepime HCl 1 gm/ Dextrose 50 mls @ 100 mls/hr IVPB DAILY [facility] PRN Reason: Protocol Last Admin: 08/02/17 10:25 Dose: 100 mls/hr Insulin Aspart (Novolog) 16 unit SC BID [facility] Last Admin: 08/02/17 17:53 Dose: Not Given Insulin Glargine (Lantus) 16 unit SC HS [facility] Last Admin: 08/02/17 22:22 Dose: Not Given Insulin Human Regular (Novolin R) 0 unit SC ACHS [facility] PRN Reason: Protocol Last Admin: 08/02/17 16:30 Dose: Not Given Labetalol HCl (Normodyne) 300 mg PO Q8H [facility] Last Admin: 08/02/17 16:37 Dose: Not Given Lamivudine (Epivir) 150 mg PO DAILY [facility] PRN Reason: Protocol Last Admin: 08/02/17 18:04 Dose: 150 mg Morphine Sulfate (Morphine) 2 mg IV Q4 PRN PRN Reason: Pain, severe (8-10) Last Admin: 08/02/17 18:00 Dose: 2 mg Ondansetron HCl (Zofran Inj) 4 mg IVP Q6H PRN PRN Reason: Nausea/Vomiting Last Admin: 08/02/17 17:59 Dose: 4 mg Saccharomyces Boulardii (Florastor) 250 mg PO BID [facility] Last Admin: 08/02/17 17:59 Dose: 250 mg Sertraline HCl (Zoloft) 50 mg PO DAILY [facility] Last Admin: 08/02/17 18:05 Dose: 50 mg Sodium Bicarbonate (Sodium Bicarbonate Tab) 650 mg PO Q8 [facility] Last Admin: 08/02/17 22:22 Dose: Not Given Vitamin B Complex/Vit C/Folic Acid (Nephro-Rosario) 1 tab PO 0800 [facility] Last Admin: 08/02/17 17:59 Dose: 1 tab Physical Exam - Head Exam Head Exam: ATRAUMATIC - Eye Exam Eye Exam: Normal appearance - ENT Exam ENT Exam: Mucous Membranes Dry - Respiratory Exam Respiratory Exam: NORMAL BREATHING PATTERN - Cardiovascular Exam Cardiovascular Exam: +S1, +S2 - Extremities Exam Additional comments: left foot dressing - Neurological Exam Neurological exam: Oriented x3 - Psychiatric Exam Psychiatric exam: Normal Affect, Normal Mood - Skin Skin Exam: Warm Results - Vital Signs Recent Vital Signs: Last Vital Signs Temp 98.3 F 08/02/17 22:17 Pulse 99 H 08/02/17 22:17 Resp 20 08/02/17 22:17 BP 143/91 H 08/02/17 22:17 Pulse Ox 96 08/02/17 15:00 - Labs Result Diagrams: 08/02/17 14:21 08/02/17 14:21 Labs: Laboratory Results - last 24 hr 08/02/17 08/02/17 08/02/17 06:33 11:52 14:21 WBC 10.5 RBC 2.31 L Hgb 6.6 L Hct 19.7 L MCV 85.4 MCH 28.7 MCHC 33.6 RDW 16.8 H Plt Count 499 H MPV 6.0 L Neut % (Auto) 64.3 Lymph % (Auto) 20.9 [place] % (Auto) 10.0 Eos % (Auto) 4.4 H Baso % (Auto) 0.4 Neut # (Auto) 6.8 Lymph # (Auto) 2.2 [place] # (Auto) 1.1 H Eos # (Auto) 0.5 Baso # (Auto) 0.0 Sodium Potassium Chloride Carbon Dioxide Anion Gap BUN Creatinine Est GFR ( Amer) Est GFR (Non-Af Amer) POC Glucose (mg/dL) 114 H 105 Random Glucose Calcium Total Bilirubin AST ALT Alkaline Phosphatase Total Protein Albumin Globulin Albumin/Globulin Ratio Blood Type Antibody Screen 08/02/17 08/02/17 08/02/17 14:21 14:21 16:20 WBC RBC Hgb Hct MCV MCH MCHC RDW Plt Count MPV Neut % (Auto) Lymph % (Auto) [place] % (Auto) Eos % (Auto) Baso % (Auto) Neut # (Auto) Lymph # (Auto) [place] # (Auto) Eos # (Auto) Baso # (Auto) Sodium 143 Potassium 5.1 Chloride 110 H Carbon Dioxide 22 Anion Gap 16 BUN 40 H Creatinine 3.6 H Est GFR ( Amer) 17 Est GFR (Non-Af Amer) 14 POC Glucose (mg/dL) 142 H Random Glucose 113 H Calcium 8.8 Total Bilirubin 0.4 AST 32 ALT 16 Alkaline Phosphatase 151 H Total Protein 8.2 Albumin 2.6 L Globulin 5.5 H Albumin/Globulin Ratio 0.5 L Blood Type AB POSITIVE Antibody Screen Negative Assessment & Plan (1) Anemia Assessment and Plan: multifactorial anemia of chronic disease from osteomyelitis anemia of CKD anemia of HIV okay to add KIT to decrease transfusion requirements. Status: Acute (2) Monoclonal gammopathy Assessment and Plan: + monoclonal protein detected in urine will add free light chain assay will add skeletal survey to evaluate for lytic lesions will discuss with nephrology if the patient would benefit from a renal biopsy ? monoclonal protein deposition. Thank you for this interesting consult. Status: Acute
[2017-08-03] MEDS: Labetalol Hydrochloride 300 mg Tab PO SCH ×3 (00:43→16:11)
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
[2017-08-03 07:07] LABS: BASO # 0.1 K/uL (0.0-0.2); BASO % 0.5 % (0.0-2.0); EOS # 0.5 K/uL (0.0-0.7); HEMOGLOBIN 8.2 g/dL (11.0-16.0); LYMPH # 2.6 K/uL (1.0-4.3); LYMPH % 24.3 % (20.0-40.0); MEAN CELL VOLUME 84.6 fL (81.0-99.0); MEAN CORPUSCULAR HGB CONC 34.3 g/dL (33.0-37.0); MEAN PLATELET VOLUME 6.4 fL (7.2-11.7); MONO % 9.6 % (0.0-10.0); NEUT # 6.5 K/uL (1.8-7.0); NEUT % 60.6 % (50.0-75.0); NRBC % 0.1 % (0.0-2.0); RBC 2.83 Mil/uL (3.80-5.20); RED CELL DISTRIBUTION WIDTH 16.3 % (11.5-14.5); WHITE BLOOD COUNT 10.7 K/uL (4.8-10.8)
[2017-08-03 07:48] LABS: ALB/GLOB RATIO 0.5 (1.0-2.1); ALBUMIN 2.9 g/dL (3.5-5.0)
[2017-08-03] MEDS: (Novolin R) Insulin Human Regular 100 units/ml vial SC SCH ×4 (07:51→22:19)
[2017-08-03] MEDS: Multivitamin Vitamin B Complex (Nephro-Vite) Tab PO SCH (08:20)
--- NOTE | 2017-08-03 09:13 | CP.PCM.PN ---
Subjective - Date & Time of Evaluation Date of Evaluation: 08/03/17 Time of Evaluation: 09:12 - Subjective Subjective: pt is seen and examined, follow up consult is dictated #[id number] 1.ckd-4 2.anmia 3.htn 4.dm 5.om of left foot 6. sec.hpth check uif,sif, srum free light chains, b2 microglobulin to r/o MM may need bone marrow bx or kidney bx Objective - Vital Signs/Intake and Output Vital Signs (last 24 hours): Temp Pulse Resp BP Pulse Ox 98.3 F 92 H 18 149/98 H 98 08/03/17 07:40 08/03/17 07:40 08/03/17 07:40 08/03/17 07:40 08/03/17 07:40 Intake and Output: 08/03/17 08/03/17 06:59 18:59 Intake Total 975 Balance 975 - Medications Medications: Current Medications Abacavir Sulfate (Ziagen) 300 mg PO BID [facility] PRN Reason: Protocol Last Admin: 08/02/17 17:59 Dose: 300 mg Amlodipine Besylate (Norvasc) 10 mg PO DAILY [facility] Last Admin: 08/02/17 18:00 Dose: 10 mg Calcitriol (Rocaltrol) 0.25 mcg PO TTS [facility] Last Admin: 07/31/17 10:17 Dose: Not Given Dolutegravir Sodium (Tivicay) 50 mg PO DAILY [facility] PRN Reason: Protocol Last Admin: 08/02/17 18:05 Dose: 50 mg Epoetin Anival (Procrit) 20,000 unit SC TTS [facility] Ferric Sodium Gluconate Complex (Ferrlecit) 125 mg IVPB DAILY [facility] Stop: 08/10/17 10:01 Last Admin: 08/02/17 09:20 Dose: 125 mg Cefepime HCl 1 gm/ Dextrose 50 mls @ 100 mls/hr IVPB DAILY [facility] PRN Reason: Protocol Last Admin: 08/02/17 10:25 Dose: 100 mls/hr Insulin Aspart (Novolog) 16 unit SC BID [facility] Last Admin: 08/02/17 17:53 Dose: Not Given Insulin Glargine (Lantus) 16 unit SC HS [facility] Last Admin: 08/02/17 22:22 Dose: Not Given Insulin Human Regular (Novolin R) 0 unit SC ACHS [facility] PRN Reason: Protocol Last Admin: 08/03/17 07:51 Dose: Not Given Labetalol HCl (Normodyne) 300 mg PO Q8H [facility] Last Admin: 08/03/17 08:21 Dose: 300 mg Lamivudine (Epivir) 150 mg PO DAILY [facility] PRN Reason: Protocol Last Admin: 08/02/17 18:04 Dose: 150 mg Morphine Sulfate (Morphine) 2 mg IV Q4 PRN PRN Reason: Pain, severe (8-10) Last Admin: 08/03/17 08:21 Dose: 2 mg Ondansetron HCl (Zofran Inj) 4 mg IVP Q6H [facility] PRN Reason: Nausea/Vomiting Last Admin: 08/03/17 06:33 Dose: 4 mg Saccharomyces Boulardii (Florastor) 250 mg PO BID [facility] Last Admin: 08/02/17 17:59 Dose: 250 mg Sertraline HCl (Zoloft) 50 mg PO DAILY [facility] Last Admin: 08/02/17 18:05 Dose: 50 mg Sodium Bicarbonate (Sodium Bicarbonate Tab) 650 mg PO Q8 [facility] Last Admin: 08/03/17 06:13 Dose: 650 mg Vitamin B Complex/Vit C/Folic Acid (Nephro-Rosario) 1 tab PO 0800 [facility] Last Admin: 08/03/17 08:20 Dose: 1 tab - Labs Labs: 08/03/17 06:53 08/03/17 06:53
--- NOTE | 2017-08-03 10:20 | OP ---
PROCEDURE DATE: 07/31/2017 PREOPERATIVE DIAGNOSES: Left foot nonhealing infected diabetic ulceration with abscess and sinus tract formation with underlying osteomyelitis. POSTOPERATIVE DIAGNOSES: Left foot nonhealing infected diabetic ulceration with abscess and sinus tract formation with underlying osteomyelitis. SURGEON: Kalpesh Coy DPM OTR DRIVER: Claudia Guallpa PGY1 TYPE OF ANESTHESIA: IV sedation with local. ANESTHESIA ADMINISTERED BY: Dr. Lopez OPERATION PERFORMED: Left foot incision and drainage of ulceration with abscess and sinus tract formation. INDICATIONS: The patient is a 36-year-old female with the above diagnoses. The patient has exhausted all conservative measures at this time and now requires surgical intervention. The patient had signed the consent after careful explanation of risks, benefits, complications, and alternatives for surgical procedure. No guarantees were given or implied. N.p.o. status was confirmed prior to taking the patient to the operating room. The patient acknowledges that she has bone infection and adamantly refuses a transmetatarsal amputation. The patient has been repeatedly educated on the risk of sepsis and the high risk of her lower extremity recurrent infection eventually leading to a below-knee amputation. The patient acknowledges this information and still refuses any lower extremity amputation at this time. PREPARATION: The patient was brought into the operating room and placed on the operating room table in a supine position. A time-out was performed for identification of the correct patient and procedure. After induction of IV sedation, the patient received a total of 20 mL of 0.5% Marcaine plain and 10 mL of 1% lidocaine plain in an ankle block fashion to the left lower extremity. The left lower extremity was then prepped and draped in normal sterile manner and the procedure began. No tourniquet was used during that procedure. PROCEDURE: Attention was then directed to the dorsal and dorsolateral aspect of the patient's left foot, where three open ulcerations were noted. With the use of a freer elevator, it was noted that the dorsal central ulceration, measuring approximately 2 cm x 2 cm x 0.9 cm, probed and connected laterally to two additional open ulcerations on the lateral aspect of the patient's left mid foot. These two ulcerations measured 3 cm x 2cm x x 0.9 cm and 2 cm x 3.5 cm x 0.7 cm, respectively. All ulcerations probed down to the level of bone and connected, forming a sinus tract across the dorsal foot going laterally. At this time, a #15 blade was utilized to create an incision to the most medial ulceration, which lie at the dorsocentral mid foot. The incision extended the ulceration approximately 1 cm proximally in length and was carried down to the level of bone. At this time, approximately 10 mL of purulent drainage was expressed from the dorsocentral ulcerations where the incision was made. Next, attention was directed to the most lateral ulceration on the dorsal lateral mid foot at approximately at the level of the fifth metatarsal base. Once again, a #15 blade was utilized to create an incision, extending the proximal side of the ulceration approximately 1 cm in length. This incision was made down to the level of bone. An additional 5 mL of purulent drainage was expressed at this time from this ulceration site. Next, pulse lavage was utilized to copiously irrigate the ulceration sites and sinus tract with sterile saline. Two deep wound cultures were then obtained, one from the dorsocentral mid foot ulceration and one from the most lateral ulceration at the level of the fifth metatarsal base. At this time, half inch iodoform packing was utilized to pack sinus tract as well as all ulcerations. The left foot was then dressed with a dry sterile dressing, abdominal pad, and a [place] outer dressing. POSTOPERATIVE CONDITION: The patient tolerated the anesthesia and procedure well and was escorted to the recovery room with vital signs stable and neurovascular status intact to the left foot. The patient will return to floor and Dr. Coy will continue to follow up. Upon discharge, the patient will follow up with Dr. Coy in the wound care center in one week. Claudia Guallpa DPM [facility]
[2017-08-03] MEDS: Saccharomyces Boulardi 250 mg Cap PO SCH ×2 (10:51→17:32)
[2017-08-03] MEDS: Ferric Sodium Gluconat Complex 62.5 mg/5 ml Vial IVPB SCH (10:52)
[2017-08-03] MEDS: (Novolog) Insulin Aspart, Recombinant 100 u/ml 10 ml vial SC SCH ×2 (10:53→18:11)
--- NOTE | 2017-08-03 10:57 | CP.PCM.PN ---
Subjective - Date & Time of Evaluation Date of Evaluation: 08/03/17 Time of Evaluation: 07:00 - Subjective Subjective: needs TMA Objective - Vital Signs/Intake and Output Vital Signs (last 24 hours): Temp Pulse Resp BP Pulse Ox 98.3 F 92 H 18 149/98 H 98 08/03/17 07:40 08/03/17 07:40 08/03/17 07:40 08/03/17 07:40 08/03/17 07:40 Intake and Output: 08/03/17 08/03/17 06:59 18:59 Intake Total 975 Balance 975 - Medications Medications: Current Medications Abacavir Sulfate (Ziagen) 300 mg PO BID [facility] PRN Reason: Protocol Last Admin: 08/03/17 10:51 Dose: 300 mg Amlodipine Besylate (Norvasc) 10 mg PO DAILY [facility] Last Admin: 08/03/17 10:51 Dose: 10 mg Calcitriol (Rocaltrol) 0.25 mcg PO TTS [facility] Last Admin: 08/03/17 10:51 Dose: 0.25 mcg Dolutegravir Sodium (Tivicay) 50 mg PO DAILY [facility] PRN Reason: Protocol Last Admin: 08/03/17 10:51 Dose: 50 mg Epoetin Anival (Procrit) 20,000 unit SC TTS [facility] Ferric Sodium Gluconate Complex (Ferrlecit) 125 mg IVPB DAILY [facility] Stop: 08/10/17 10:01 Last Admin: 08/03/17 10:52 Dose: 125 mg Cefepime HCl 1 gm/ Dextrose 50 mls @ 100 mls/hr IVPB DAILY [facility] PRN Reason: Protocol Last Admin: 08/03/17 10:52 Dose: 100 mls/hr Insulin Aspart (Novolog) 16 unit SC BID [facility] Last Admin: 08/03/17 10:53 Dose: 16 unit Insulin Glargine (Lantus) 16 unit SC HS [facility] Last Admin: 08/02/17 22:22 Dose: Not Given Insulin Human Regular (Novolin R) 0 unit SC ACHS [facility] PRN Reason: Protocol Last Admin: 08/03/17 07:51 Dose: Not Given Labetalol HCl (Normodyne) 300 mg PO Q8H [facility] Last Admin: 08/03/17 08:21 Dose: 300 mg Lamivudine (Epivir) 150 mg PO DAILY [facility] PRN Reason: Protocol Last Admin: 08/03/17 10:51 Dose: 150 mg Morphine Sulfate (Morphine) 2 mg IV Q4 PRN PRN Reason: Pain, severe (8-10) Last Admin: 08/03/17 08:21 Dose: 2 mg Ondansetron HCl (Zofran Inj) 4 mg IVP Q6H [facility] PRN Reason: Nausea/Vomiting Last Admin: 08/03/17 06:33 Dose: 4 mg Saccharomyces Boulardii (Florastor) 250 mg PO BID [facility] Last Admin: 08/03/17 10:51 Dose: 250 mg Sertraline HCl (Zoloft) 50 mg PO DAILY [facility] Last Admin: 08/03/17 10:51 Dose: 50 mg Sodium Bicarbonate (Sodium Bicarbonate Tab) 650 mg PO Q8 [facility] Last Admin: 08/03/17 06:13 Dose: 650 mg Sodium Hypochlorite (Dakins Solution 0.125%) 0 appl TOP DAILY [facility] Last Admin: 08/03/17 10:54 Dose: 20 appl Vitamin B Complex/Vit C/Folic Acid (Nephro-Rosario) 1 tab PO 0800 [facility] Last Admin: 08/03/17 08:20 Dose: 1 tab - Labs Labs: 08/03/17 06:53 08/03/17 06:53 - Constitutional Appears: Non-toxic, Chronically Ill - Head Exam Head Exam: NORMOCEPHALIC - Eye Exam Eye Exam: PERRL. absent: Scleral icterus - ENT Exam ENT Exam: Mucous Membranes Dry - Neck Exam Neck Exam: absent: Lymphadenopathy - Respiratory Exam Respiratory Exam: Decreased Breath Sounds - Cardiovascular Exam Cardiovascular Exam: REGULAR RHYTHM - GI/Abdominal Exam GI & Abdominal Exam: Distended - Rectal Exam Rectal Exam: Deferred - Exam Exam: NORMAL INSPECTION - Extremities Exam Extremities Exam: Pedal Edema - Back Exam Back Exam: absent: CVA tenderness (L), CVA tenderness (R) Assessment and Plan (1) Anemia Status: Acute (2) Chronic ulcer of left leg Status: Chronic (3) HIV disease Status: Chronic (4) GAEL (acute kidney injury) Status: Acute (5) Abscess and cellulitis Status: Acute
--- NOTE | 2017-08-03 11:18 | CP.PCM.PN ---
Subjective - Date & Time of Evaluation Date of Evaluation: 08/03/17 Time of Evaluation: 11:18 - Subjective Subjective: Podiatry Progress note for Dr. Coy 36 year old female seen at bedside 3 day s/p left foot incision and drainage of abscess and sinus tract with multiple infected diabetic ulcerations. She currently denies any pain to her foot. She is seen resting comfortably at bedside. Denies F/C/N/V/CP/SOB Objective - Vital Signs/Intake and Output Vital Signs (last 24 hours): Temp Pulse Resp BP Pulse Ox 98.3 F 92 H 18 149/98 H 98 08/03/17 07:40 08/03/17 07:40 08/03/17 07:40 08/03/17 07:40 08/03/17 07:40 Intake and Output: 08/03/17 08/03/17 06:59 18:59 Intake Total 975 Balance 975 - Medications Medications: Current Medications Abacavir Sulfate (Ziagen) 300 mg PO BID [facility] PRN Reason: Protocol Last Admin: 08/03/17 10:51 Dose: 300 mg Amlodipine Besylate (Norvasc) 10 mg PO DAILY [facility] Last Admin: 08/03/17 10:51 Dose: 10 mg Calcitriol (Rocaltrol) 0.25 mcg PO TTS [facility] Last Admin: 08/03/17 10:51 Dose: 0.25 mcg Dolutegravir Sodium (Tivicay) 50 mg PO DAILY [facility] PRN Reason: Protocol Last Admin: 08/03/17 10:51 Dose: 50 mg Epoetin Anival (Procrit) 20,000 unit SC TTS [facility] Ferric Sodium Gluconate Complex (Ferrlecit) 125 mg IVPB DAILY [facility] Stop: 08/10/17 10:01 Last Admin: 08/03/17 10:52 Dose: 125 mg Cefepime HCl 1 gm/ Dextrose 50 mls @ 100 mls/hr IVPB DAILY [facility] PRN Reason: Protocol Last Admin: 08/03/17 10:52 Dose: 100 mls/hr Insulin Aspart (Novolog) 16 unit SC BID [facility] Last Admin: 08/03/17 10:53 Dose: Not Given Insulin Glargine (Lantus) 16 unit SC HS [facility] Last Admin: 08/02/17 22:22 Dose: Not Given Insulin Human Regular (Novolin R) 0 unit SC ACHS [facility] PRN Reason: Protocol Last Admin: 08/03/17 07:51 Dose: Not Given Labetalol HCl (Normodyne) 300 mg PO Q8H [facility] Last Admin: 08/03/17 08:21 Dose: 300 mg Lamivudine (Epivir) 150 mg PO DAILY [facility] PRN Reason: Protocol Last Admin: 08/03/17 10:51 Dose: 150 mg Morphine Sulfate (Morphine) 2 mg IV Q4 PRN PRN Reason: Pain, severe (8-10) Last Admin: 08/03/17 08:21 Dose: 2 mg Ondansetron HCl (Zofran Inj) 4 mg IVP Q6H PRN PRN Reason: Nausea/Vomiting Last Admin: 08/03/17 06:33 Dose: 4 mg Saccharomyces Boulardii (Florastor) 250 mg PO BID [facility] Last Admin: 08/03/17 10:51 Dose: 250 mg Sertraline HCl (Zoloft) 50 mg PO DAILY [facility] Last Admin: 08/03/17 10:51 Dose: 50 mg Sodium Bicarbonate (Sodium Bicarbonate Tab) 650 mg PO Q8 [facility] Last Admin: 08/03/17 06:13 Dose: 650 mg Sodium Hypochlorite (Dakins Solution 0.125%) 0 appl TOP DAILY [facility] Last Admin: 08/03/17 10:54 Dose: 20 appl Vitamin B Complex/Vit C/Folic Acid (Nephro-Rosario) 1 tab PO 0800 [facility] Last Admin: 08/03/17 08:20 Dose: 1 tab - Labs Labs: 08/03/17 06:53 08/03/17 06:53 - Constitutional Appears: Well, Non-toxic, No Acute Distress - Extremities Exam Additional comments: Left lower extremity focused exam: VASC- DP pulse faintly palpable, skin temp runs warm to warm, cap refill < 4 sec , 3+ pitting edema is noted to dorsum of foot DERM- Malodor noted to the entire foot. Full-thickness ulceration noted to dorsal aspect of foot which measures approximately 0.5 x 4.0 x1.5cm (no active drainage, neg purulence, with mixed fibrogranular base which tracks proximally 0.5 cm , macerated border), there is a 2nd full-thickness ulceration noted to dorsal-lateral aspect of 5th metatarsal amputation site measures 1.0x4.0x1.5cm with mixed fibrogranular base and somewhat macerated border (no active drainage , + purulence, ), third ulceration noted just plantar to the 2nd wound measures 0.5x1.0x1.0 cm (mixed fibrogranular base, macerated border, neg tracking, + purulent drainage), superficial ulceration noted to distal lateral leg measures approx. 3.0x5.0x0.3cm with mixed fibrogranular base. Lateral midfoot surgical site with all sutrures intact, boggy periwound maceration noted, gross lichenification of pedal skin NEURO- gross and protective pedal sensation are diminished MSK- tenderness noted to palp of wound sites - Neurological Exam Neurological Exam: Alert, Awake, Oriented x3 - Psychiatric Exam Psychiatric exam: Normal Affect, Normal Mood Assessment and Plan - Assessment and Plan (Free Text) Assessment: 36 y/o female 3 day s/p left foot incision and drainage of sinus tract and abscess secondary to infected diabetic ulcerations Plan: Pt seen and evaluated at bedside Discussed with attending Dr. Coy Labs and vitals reviewed - afebrile, WBC 10.7 Dressing changed with dakins W2D, 4x4, ABD, kerlix, RAFFY MRI of left foot ordered Discussed TMA with Dr. Del Valle presents, patient states that she will think about it Pt known for noncompliance with IV abx infusions ID Dr. Del Valle on board, appreciate recs Continue pain mgt per primary team Will continue to follow patient while in house
--- NOTE | 2017-08-03 11:47 | CP.PCM.PN ---
Subjective - Date & Time of Evaluation Date of Evaluation: 08/03/17 Time of Evaluation: 11:45 - Subjective Subjective: CONDITION SAME. AFEBRILE. BLOOD AND WOUND C/S COAGULASE NEG STAPH. Objective - Vital Signs/Intake and Output Vital Signs (last 24 hours): Temp Pulse Resp BP Pulse Ox 98.3 F 92 H 18 149/98 H 98 08/03/17 07:40 08/03/17 07:40 08/03/17 07:40 08/03/17 07:40 08/03/17 07:40 Intake and Output: 08/03/17 08/03/17 06:59 18:59 Intake Total 975 Balance 975 - Medications Medications: Current Medications Abacavir Sulfate (Ziagen) 300 mg PO BID [facility] PRN Reason: Protocol Last Admin: 08/03/17 10:51 Dose: 300 mg Amlodipine Besylate (Norvasc) 10 mg PO DAILY [facility] Last Admin: 08/03/17 10:51 Dose: 10 mg Calcitriol (Rocaltrol) 0.25 mcg PO TTS [facility] Last Admin: 08/03/17 10:51 Dose: 0.25 mcg Dolutegravir Sodium (Tivicay) 50 mg PO DAILY [facility] PRN Reason: Protocol Last Admin: 08/03/17 10:51 Dose: 50 mg Epoetin Anival (Procrit) 20,000 unit SC TTS [facility] Ferric Sodium Gluconate Complex (Ferrlecit) 125 mg IVPB DAILY [facility] Stop: 08/10/17 10:01 Last Admin: 08/03/17 10:52 Dose: 125 mg Cefepime HCl 1 gm/ Dextrose 50 mls @ 100 mls/hr IVPB DAILY [facility] PRN Reason: Protocol Last Admin: 08/03/17 10:52 Dose: 100 mls/hr Insulin Aspart (Novolog) 16 unit SC BID [facility] Last Admin: 08/03/17 10:53 Dose: Not Given Insulin Glargine (Lantus) 16 unit SC HS [facility] Last Admin: 08/02/17 22:22 Dose: Not Given Insulin Human Regular (Novolin R) 0 unit SC ACHS [facility] PRN Reason: Protocol Last Admin: 08/03/17 07:51 Dose: Not Given Labetalol HCl (Normodyne) 300 mg PO Q8H [facility] Last Admin: 08/03/17 08:21 Dose: 300 mg Lamivudine (Epivir) 150 mg PO DAILY [facility] PRN Reason: Protocol Last Admin: 08/03/17 10:51 Dose: 150 mg Morphine Sulfate (Morphine) 2 mg IV Q4 PRN PRN Reason: Pain, severe (8-10) Last Admin: 08/03/17 08:21 Dose: 2 mg Ondansetron HCl (Zofran Inj) 4 mg IVP Q6H PRN PRN Reason: Nausea/Vomiting Last Admin: 08/03/17 06:33 Dose: 4 mg Saccharomyces Boulardii (Florastor) 250 mg PO BID [facility] Last Admin: 08/03/17 10:51 Dose: 250 mg Sertraline HCl (Zoloft) 50 mg PO DAILY [facility] Last Admin: 08/03/17 10:51 Dose: 50 mg Sodium Bicarbonate (Sodium Bicarbonate Tab) 650 mg PO Q8 [facility] Last Admin: 08/03/17 06:13 Dose: 650 mg Sodium Hypochlorite (Dakins Solution 0.125%) 0 appl TOP DAILY [facility] Last Admin: 08/03/17 10:54 Dose: 20 appl Vitamin B Complex/Vit C/Folic Acid (Nephro-Rosario) 1 tab PO 0800 [facility] Last Admin: 08/03/17 08:20 Dose: 1 tab - Labs Labs: 08/03/17 06:53 08/03/17 06:53 - Constitutional Appears: No Acute Distress, Chronically Ill - Eye Exam Eye Exam: EOMI, Normal appearance, PERRL Pupil Exam: NORMAL ACCOMODATION, PERRL - ENT Exam ENT Exam: Mucous Membranes Moist, Normal Exam - Neck Exam Neck Exam: Full ROM, Normal Inspection. absent: Lymphadenopathy - Respiratory Exam Respiratory Exam: Clear to Ausculation Bilateral, NORMAL BREATHING PATTERN - Cardiovascular Exam Cardiovascular Exam: REGULAR RHYTHM, +S1, +S2. absent: Murmur - GI/Abdominal Exam GI & Abdominal Exam: Soft, Normal Bowel Sounds. absent: Tenderness - Extremities Exam Extremities Exam: Full ROM, Normal Capillary Refill, Normal Inspection. absent : Joint Swelling, Pedal Edema - Back Exam Back Exam: NORMAL INSPECTION Assessment and Plan - Assessment and Plan (Free Text) Assessment: SEPSIS COAG NEG STAPH. CRF. OM LT FOOT. ANEMIA. Plan: FOR IV ANTIBIOTICS. PT.
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
[2017-08-03] MEDS ORDERED: Morphine 4 MG/ML VIAL IV ONE (14:00)
[2017-08-03] MEDS: Epoetin Alfa Dialysis 20000 UNIT/ML Inj SC SCH (14:06)
--- NOTE | 2017-08-03 14:52 | MRI ---
MRI left foot History: Left foot wound. Comparison: None available. Technique: Multi-echo multiplanar sequences were performed through the left foot without the use of intravenous contrast. Findings: Markedly limited study as only the coronal T1 and STIR sequences were performed. The patient could not tolerate the study and the remainder of the sequences were not obtained. This is essentially a nondiagnostic study. Repeat study and or correlation with three-phase bone scan would be helpful if clinically indicated. Resection of the 1st digit to the level of the metatarsal. Prominent bony dysplastic changes with heterotopic bone formation seen at the level of the 2nd 3rd and 4th metatarsal bones. The 5th metatarsal shaft is not well visualized. Bony deformity of 2nd and 5th proximal phalanges. Prominent bony destructive changes seen at the level of the tarsal bones throughout which may represent an underlying Charcot arthropathy. Prominence of the interval of the 2nd 1st metatarsal bases suggestive for Lisfranc fracture dislocation. Prominent reticulation and edema seen within the circumferential subcutaneous soft tissues suggestive for cellulitis. Prominent soft tissue defect seen at the dorsal and lateral foot consistent with ulceration. Extensive signal abnormality seen throughout the visualized musculature suggestive for a myositis. Prominent signal abnormality seen within the mid to anterior calcaneus with patchy decreased T1 signal and increased STIR seen concerning for a possible acute osteomyelitis. Milder patchy reactive edema with some patchy decreased T1 signal seen within the mid to anterior talus which may represent an early acute and or developing acute osteomyelitis. Clinical correlation. Evaluation of the distal tibia and fibula is markedly limited given the lack coronal and sagittal sequences. Severe signal abnormality with exuberant reactive edema and prominent decreased T1 signal noted within the visualized tarsal bones including the cuneiform bones, navicular bone, and cuboid bones as well as the remnant 2nd 3rd 4th and 5th metatarsal bones which is suggestive for osteomyelitis possibly acute on chronic with superimposed osteonecrotic changes. Please note there is Lisfranc fracture dislocation and superimposed Charcot arthropathy. Patchy reactive edema noted in the 1st metatarsal shaft as well as scattered edema in the remnant phalanges of the 2nd through 5th digits which may be the sequelae of acute infectious and or inflammatory changes. Again repeat study and or correlation with three-phase bone scan may be helpful if clinically indicated. Mild tenosynovitis of the posterior tibial tendon sheath. Moderate tenosynovitis of the peroneal tendon sheaths. Impression: 1. Markedly limited study as only the coronal T1 and STIR sequences were performed. The patient could not tolerate the study and the remainder of the sequences were not obtained. This is essentially a nondiagnostic study. Repeat study and or correlation with three-phase bone scan would be helpful if clinically indicated. 2. Resection of the 1st digit to the level of the metatarsal. Prominent bony dysplastic changes with heterotopic bone formation seen at the level of the 2nd 3rd and 4th metatarsal bones. The 5th metatarsal shaft is not well visualized. Bony deformity of 2nd and 5th proximal phalanges. Prominent bony destructive changes seen at the level of the tarsal bones throughout which may represent an underlying Charcot arthropathy. Prominence of the interval of the 2nd 1st metatarsal bases suggestive for Lisfranc fracture dislocation. 3. Prominent reticulation and edema seen within the circumferential subcutaneous soft tissues suggestive for cellulitis. Prominent soft tissue defect seen at the dorsal and lateral foot consistent with ulceration. 4. Extensive signal abnormality seen throughout the visualized musculature suggestive for a myositis. 5. Prominent signal abnormality seen within the mid to anterior calcaneus with patchy decreased T1 signal and increased STIR seen concerning for a possible acute osteomyelitis. Milder patchy reactive edema with some patchy decreased T1 signal seen within the mid to anterior talus which may represent an early acute and or developing acute osteomyelitis. Clinical correlation. 6. Evaluation of the distal tibia and fibula is markedly limited given the lack coronal and sagittal sequences. 7. Severe signal abnormality with exuberant reactive edema and prominent decreased T1 signal noted within the visualized tarsal bones including the cuneiform bones, navicular bone, and cuboid bones as well as the remnant 2nd 3rd 4th and 5th metatarsal bones which is suggestive for osteomyelitis possibly acute on chronic with superimposed osteonecrotic changes. Please note there is Lisfranc fracture dislocation and superimposed Charcot arthropathy. 8. Patchy reactive edema noted in the 1st metatarsal shaft as well as scattered edema in the remnant phalanges of the 2nd through 5th digits which may be the sequelae of acute infectious and or inflammatory changes. Again repeat study and or correlation with three-phase bone scan may be helpful if clinically indicated. 9. Mild tenosynovitis of the posterior tibial tendon sheath. 10. Moderate tenosynovitis of the peroneal tendon sheaths.
[2017-08-03] MEDS ORDERED: Sod Polystyrene Sulf 15 gm/60 ml Susp PO ONE (16:15)
[2017-08-03] MEDS: (Lantus) Insulin Glargine, Recombinant SC SCH ×2 (22:12→22:14)
[2017-08-04] MEDS: Labetalol Hydrochloride 300 mg Tab PO SCH ×4 (00:39→23:40)
[2017-08-04] MEDS: (Novolin R) Insulin Human Regular 100 units/ml vial SC SCH ×4 (07:32→22:31)
[2017-08-04 07:49] LABS: BASO # 0.1 K/uL (0.0-0.2); BASO % 0.5 % (0.0-2.0); EOS # 0.4 K/uL (0.0-0.7); EOS % 3.9 % (0.0-4.0); HEMOGLOBIN 7.7 g/dL (11.0-16.0); LYMPH # 2.7 K/uL (1.0-4.3); LYMPH % 24.5 % (20.0-40.0); MEAN CELL VOLUME 84.9 fL (81.0-99.0); MEAN CORPUSCULAR HEMOGLOBIN 29.5 pg (27.0-31.0); MEAN CORPUSCULAR HGB CONC 34.7 g/dL (33.0-37.0); MEAN PLATELET VOLUME 6.4 fL (7.2-11.7); MONO # 1.3 K/uL (0.0-0.8); MONO % 11.4 % (0.0-10.0); NEUT # 6.5 K/uL (1.8-7.0); NEUT % 59.7 % (50.0-75.0); NRBC % 0.1 % (0.0-2.0); RBC 2.6 Mil/uL (3.80-5.20); RED CELL DISTRIBUTION WIDTH 16.3 % (11.5-14.5)
[2017-08-04] MEDS: Multivitamin Vitamin B Complex (Nephro-Vite) Tab PO SCH (08:13)
[2017-08-04 08:14] LABS: ALB/GLOB RATIO 0.5 (1.0-2.1); ALBUMIN 2.8 g/dL (3.5-5.0); CALCIUM 8.9 mg/dl (8.6-10.4)
[2017-08-04] MEDS: Saccharomyces Boulardi 250 mg Cap PO SCH ×2 (10:14→18:46)
[2017-08-04] MEDS: (Novolog) Insulin Aspart, Recombinant 100 u/ml 10 ml vial SC SCH ×2 (10:15→17:57)
[2017-08-04] MEDS: Ferric Sodium Gluconat Complex 62.5 mg/5 ml Vial IVPB SCH (10:15)
--- NOTE | 2017-08-04 10:40 | CP.PCM.PN ---
Subjective - Date & Time of Evaluation Date of Evaluation: 08/04/17 Time of Evaluation: 10:40 - Subjective Subjective: Podiatry Progress note for Dr. Cyo 36 year old female seen at bedside 4 day s/p left foot incision and drainage of abscess and sinus tract with multiple infected diabetic ulcerations. She currently denies any pain to her foot. She is seen resting comfortably at bedside. She states that she was unable to tolerate the MRI yesterday. Denies F/ C/N/V/CP/SOB Objective - Vital Signs/Intake and Output Vital Signs (last 24 hours): Temp Pulse Resp BP Pulse Ox 98.4 F 88 18 135/73 96 08/04/17 07:30 08/04/17 07:30 08/04/17 07:30 08/04/17 07:30 08/04/17 07:30 Intake and Output: 08/04/17 08/04/17 06:59 18:59 Intake Total 400 Balance 400 - Medications Medications: Current Medications Abacavir Sulfate (Ziagen) 300 mg PO BID [facility] PRN Reason: Protocol Last Admin: 08/04/17 10:14 Dose: 300 mg Amlodipine Besylate (Norvasc) 10 mg PO DAILY [facility] Last Admin: 08/04/17 10:14 Dose: 10 mg Calcitriol (Rocaltrol) 0.25 mcg PO TTS [facility] Last Admin: 08/03/17 10:51 Dose: 0.25 mcg Dolutegravir Sodium (Tivicay) 50 mg PO DAILY [facility] PRN Reason: Protocol Last Admin: 08/04/17 10:13 Dose: 50 mg Epoetin Anival (Procrit) 20,000 unit SC TTS [facility] Last Admin: 08/03/17 14:06 Dose: 20,000 unit Ferric Sodium Gluconate Complex (Ferrlecit) 125 mg IVPB DAILY [facility] Stop: 08/10/17 10:01 Last Admin: 08/04/17 10:15 Dose: 125 mg Cefepime HCl 1 gm/ Dextrose 50 mls @ 100 mls/hr IVPB DAILY [facility] PRN Reason: Protocol Last Admin: 08/04/17 10:16 Dose: 100 mls/hr Insulin Aspart (Novolog) 16 unit SC BID [facility] Last Admin: 08/04/17 10:15 Dose: Not Given Insulin Glargine (Lantus) 16 unit SC HS [facility] Last Admin: 08/03/17 22:14 Dose: Not Given Insulin Human Regular (Novolin R) 0 unit SC ACHS [facility] PRN Reason: Protocol Last Admin: 08/04/17 07:32 Dose: Not Given Labetalol HCl (Normodyne) 300 mg PO Q8H [facility] Last Admin: 08/04/17 10:14 Dose: 300 mg Lamivudine (Epivir) 150 mg PO DAILY [facility] PRN Reason: Protocol Last Admin: 08/04/17 10:13 Dose: 150 mg Morphine Sulfate (Morphine) 2 mg IV Q4 PRN PRN Reason: Pain, severe (8-10) Last Admin: 08/04/17 10:15 Dose: 2 mg Ondansetron HCl (Zofran Inj) 4 mg IVP Q6H PRN PRN Reason: Nausea/Vomiting Last Admin: 08/04/17 06:03 Dose: 4 mg Saccharomyces Boulardii (Florastor) 250 mg PO BID [facility] Last Admin: 08/04/17 10:14 Dose: 250 mg Sertraline HCl (Zoloft) 50 mg PO DAILY [facility] Last Admin: 08/04/17 10:13 Dose: 50 mg Sodium Bicarbonate (Sodium Bicarbonate Tab) 650 mg PO Q8 [facility] Last Admin: 08/03/17 22:12 Dose: 650 mg Sodium Hypochlorite (Dakins Solution 0.125%) 0 appl TOP DAILY [facility] Last Admin: 08/04/17 10:18 Dose: 20 appl Vitamin B Complex/Vit C/Folic Acid (Nephro-Rosario) 1 tab PO 0800 [facility] Last Admin: 08/04/17 08:13 Dose: 1 tab - Labs Labs: 08/04/17 07:38 08/04/17 07:38 - Constitutional Appears: Well, Non-toxic, No Acute Distress - Extremities Exam Additional comments: Left lower extremity focused exam:strikethrough noted to the dressing with foul odor VASC- DP pulse faintly palpable, skin temp runs warm to warm, cap refill < 4 sec , 3+ pitting edema is noted to dorsum of foot DERM- Foul malodor noted to the entire foot. Full-thickness ulceration noted to dorsal aspect of foot which measures approximately 0.5 x 4.0 x1.5cm (no active drainage, neg purulence, with mixed fibrogranular base which tracks proximally 0.5 cm , macerated border), there is a 2nd full-thickness ulceration noted to dorsal-lateral aspect of 5th metatarsal amputation site measures 1.0x4.0x1.5cm with mixed fibrogranular base and somewhat macerated border ( + purulence, ), third ulceration noted just plantar to the 2nd wound measures 0.5x1.0x1.0 cm ( mixed fibrogranular base, macerated border, neg tracking, + purulent drainage), superficial ulceration noted to distal lateral leg measures approx. 3.0x5.0x0.3cm with mixed fibrogranular base. Lateral midfoot surgical site with all sutrures intact, boggy periwound maceration noted, gross lichenification of pedal skin NEURO- gross and protective pedal sensation are diminished MSK- tenderness noted to palp of wound sites - Neurological Exam Neurological Exam: Alert, Awake, Oriented x3 - Psychiatric Exam Psychiatric exam: Normal Affect, Normal Mood Assessment and Plan - Assessment and Plan (Free Text) Assessment: 36 y/o female 4 day s/p left foot incision and drainage of sinus tract and abscess secondary to infected diabetic ulcerations Plan: Pt seen and evaluated at bedside Discussed with attending Dr. Coy Labs and vitals reviewed - afebrile, WBC 11 Dressing changed with dakins W2D, 4x4, ABD, kerlix, RAFFY MRI of left foot ordered- study limited Discussed TMA with Dr. Del Valle presents, patient states that she will think about it Pt known for noncompliance with IV abx infusions ID Dr. Del Valle on board, appreciate recs Continue pain mgt per primary team Will continue to follow patient while in house
--- NOTE | 2017-08-04 13:09 | CP.PCM.PN ---
Subjective - Date & Time of Evaluation Date of Evaluation: 08/04/17 Time of Evaluation: 13:07 - Subjective Subjective: CONDITION REMAINS SAME. PICC LINE , NO BLOOD RETURN. FIXED. ANEMIA PRESENT. CRF STABLE. HTN WNL. AFEBRILE. SEPTIC. LT FOOT OM. Objective - Vital Signs/Intake and Output Vital Signs (last 24 hours): Temp Pulse Resp BP Pulse Ox 98.4 F 88 18 135/73 96 08/04/17 07:30 08/04/17 07:30 08/04/17 07:30 08/04/17 07:30 08/04/17 07:30 Intake and Output: 08/04/17 08/04/17 06:59 18:59 Intake Total 400 Balance 400 - Medications Medications: Current Medications Abacavir Sulfate (Ziagen) 300 mg PO BID [facility] PRN Reason: Protocol Last Admin: 08/04/17 10:14 Dose: 300 mg Amlodipine Besylate (Norvasc) 10 mg PO DAILY [facility] Last Admin: 08/04/17 10:14 Dose: 10 mg Calcitriol (Rocaltrol) 0.25 mcg PO TTS [facility] Last Admin: 08/03/17 10:51 Dose: 0.25 mcg Dolutegravir Sodium (Tivicay) 50 mg PO DAILY [facility] PRN Reason: Protocol Last Admin: 08/04/17 10:13 Dose: 50 mg Epoetin Anival (Procrit) 20,000 unit SC TTS [facility] Last Admin: 08/03/17 14:06 Dose: 20,000 unit Ferric Sodium Gluconate Complex (Ferrlecit) 125 mg IVPB DAILY [facility] Stop: 08/10/17 10:01 Last Admin: 08/04/17 10:15 Dose: 125 mg Cefepime HCl 1 gm/ Dextrose 50 mls @ 100 mls/hr IVPB DAILY [facility] PRN Reason: Protocol Last Admin: 08/04/17 10:16 Dose: 100 mls/hr Insulin Aspart (Novolog) 16 unit SC BID [facility] Last Admin: 08/04/17 10:15 Dose: Not Given Insulin Glargine (Lantus) 16 unit SC HS [facility] Last Admin: 08/03/17 22:14 Dose: Not Given Insulin Human Regular (Novolin R) 0 unit SC ACHS [facility] PRN Reason: Protocol Last Admin: 08/04/17 12:06 Dose: Not Given Labetalol HCl (Normodyne) 300 mg PO Q8H [facility] Last Admin: 08/04/17 10:14 Dose: 300 mg Lamivudine (Epivir) 150 mg PO DAILY [facility] PRN Reason: Protocol Last Admin: 08/04/17 10:13 Dose: 150 mg Morphine Sulfate (Morphine) 2 mg IV Q4 PRN PRN Reason: Pain, severe (8-10) Last Admin: 08/04/17 10:15 Dose: 2 mg Ondansetron HCl (Zofran Inj) 4 mg IVP Q6H PRN PRN Reason: Nausea/Vomiting Last Admin: 08/04/17 06:03 Dose: 4 mg Saccharomyces Boulardii (Florastor) 250 mg PO BID [facility] Last Admin: 08/04/17 10:14 Dose: 250 mg Sertraline HCl (Zoloft) 50 mg PO DAILY [facility] Last Admin: 08/04/17 10:13 Dose: 50 mg Sodium Bicarbonate (Sodium Bicarbonate Tab) 650 mg PO Q8 [facility] Last Admin: 08/03/17 22:12 Dose: 650 mg Sodium Hypochlorite (Dakins Solution 0.125%) 0 appl TOP DAILY [facility] Last Admin: 08/04/17 10:18 Dose: 20 appl Vitamin B Complex/Vit C/Folic Acid (Nephro-Rosario) 1 tab PO 0800 [facility] Last Admin: 08/04/17 08:13 Dose: 1 tab - Labs Labs: 08/04/17 07:38 08/04/17 07:38 - Constitutional Appears: No Acute Distress, Chronically Ill - Eye Exam Eye Exam: EOMI, Normal appearance, PERRL Pupil Exam: NORMAL ACCOMODATION, PERRL - ENT Exam ENT Exam: Mucous Membranes Moist, Normal Exam - Neck Exam Neck Exam: Full ROM, Normal Inspection. absent: Lymphadenopathy - Respiratory Exam Respiratory Exam: Clear to Ausculation Bilateral, NORMAL BREATHING PATTERN - Cardiovascular Exam Cardiovascular Exam: REGULAR RHYTHM, +S1, +S2. absent: Murmur - GI/Abdominal Exam GI & Abdominal Exam: Soft, Normal Bowel Sounds. absent: Tenderness - Extremities Exam Extremities Exam: Full ROM, Normal Capillary Refill, Normal Inspection. absent : Joint Swelling, Pedal Edema - Back Exam Back Exam: NORMAL INSPECTION - Neurological Exam Neurological Exam: Alert, Awake, CN II-XII Intact, Normal Gait, Oriented x3 - Psychiatric Exam Psychiatric exam: Normal Affect, Normal Mood Assessment and Plan - Assessment and Plan (Free Text) Assessment: ABOVE. Plan: CT IV ABTS.
--- NOTE | 2017-08-04 13:50 | CP.PCM.PN ---
Subjective - Date & Time of Evaluation Date of Evaluation: 08/04/17 Time of Evaluation: 10:00 - Subjective Subjective: events noted IV rx in progress to decide on amputuation Objective - Vital Signs/Intake and Output Vital Signs (last 24 hours): Temp Pulse Resp BP Pulse Ox 98.4 F 88 18 135/73 96 08/04/17 07:30 08/04/17 07:30 08/04/17 07:30 08/04/17 07:30 08/04/17 07:30 Intake and Output: 08/04/17 08/04/17 06:59 18:59 Intake Total 400 Balance 400 - Medications Medications: Current Medications Abacavir Sulfate (Ziagen) 300 mg PO BID [facility] PRN Reason: Protocol Last Admin: 08/04/17 10:14 Dose: 300 mg Amlodipine Besylate (Norvasc) 10 mg PO DAILY [facility] Last Admin: 08/04/17 10:14 Dose: 10 mg Calcitriol (Rocaltrol) 0.25 mcg PO TTS [facility] Last Admin: 08/03/17 10:51 Dose: 0.25 mcg Dolutegravir Sodium (Tivicay) 50 mg PO DAILY [facility] PRN Reason: Protocol Last Admin: 08/04/17 10:13 Dose: 50 mg Epoetin Anival (Procrit) 20,000 unit SC TTS [facility] Last Admin: 08/03/17 14:06 Dose: 20,000 unit Ferric Sodium Gluconate Complex (Ferrlecit) 125 mg IVPB DAILY [facility] Stop: 08/10/17 10:01 Last Admin: 08/04/17 10:15 Dose: 125 mg Cefepime HCl 1 gm/ Dextrose 50 mls @ 100 mls/hr IVPB DAILY [facility] PRN Reason: Protocol Last Admin: 08/04/17 10:16 Dose: 100 mls/hr Insulin Aspart (Novolog) 16 unit SC BID [facility] Last Admin: 08/04/17 10:15 Dose: Not Given Insulin Glargine (Lantus) 16 unit SC HS [facility] Last Admin: 08/03/17 22:14 Dose: Not Given Insulin Human Regular (Novolin R) 0 unit SC ACHS [facility] PRN Reason: Protocol Last Admin: 08/04/17 12:06 Dose: Not Given Labetalol HCl (Normodyne) 300 mg PO Q8H [facility] Last Admin: 08/04/17 10:14 Dose: 300 mg Lamivudine (Epivir) 150 mg PO DAILY [facility] PRN Reason: Protocol Last Admin: 08/04/17 10:13 Dose: 150 mg Morphine Sulfate (Morphine) 2 mg IV Q4 PRN PRN Reason: Pain, severe (8-10) Last Admin: 08/04/17 10:15 Dose: 2 mg Ondansetron HCl (Zofran Inj) 4 mg IVP Q6H PRN PRN Reason: Nausea/Vomiting Last Admin: 08/04/17 06:03 Dose: 4 mg Saccharomyces Boulardii (Florastor) 250 mg PO BID [facility] Last Admin: 08/04/17 10:14 Dose: 250 mg Sertraline HCl (Zoloft) 50 mg PO DAILY [facility] Last Admin: 08/04/17 10:13 Dose: 50 mg Sodium Bicarbonate (Sodium Bicarbonate Tab) 650 mg PO Q8 [facility] Last Admin: 08/03/17 22:12 Dose: 650 mg Sodium Hypochlorite (Dakins Solution 0.125%) 0 appl TOP DAILY [facility] Last Admin: 08/04/17 10:18 Dose: 20 appl Vitamin B Complex/Vit C/Folic Acid (Nephro-Rosario) 1 tab PO 0800 [facility] Last Admin: 08/04/17 08:13 Dose: 1 tab - Labs Labs: 08/04/17 07:38 08/04/17 07:38 - Constitutional Appears: Older Than Stated Age - Head Exam Head Exam: NORMOCEPHALIC - Eye Exam Eye Exam: absent: Scleral icterus - ENT Exam ENT Exam: Mucous Membranes Dry - Neck Exam Neck Exam: absent: Lymphadenopathy - Respiratory Exam Respiratory Exam: Decreased Breath Sounds - Cardiovascular Exam Cardiovascular Exam: REGULAR RHYTHM - GI/Abdominal Exam GI & Abdominal Exam: Distended Assessment and Plan (1) Anemia Status: Acute (2) Chronic ulcer of left leg Status: Chronic (3) HIV disease Status: Chronic (4) GAEL (acute kidney injury) Status: Acute (5) Abscess and cellulitis Status: Acute
[2017-08-04] MEDS: Vancomycin 1 gm/NS 200 ml 1 GM/200 ML BAG IVPB SCH (14:46)
--- NOTE | 2017-08-04 20:07 | CP.PCM.PN ---
Subjective - Date & Time of Evaluation Date of Evaluation: 08/04/17 Time of Evaluation: 20:07 - Subjective Subjective: pt is seen and examined, follow up consult is dictated #[id number] Objective - Vital Signs/Intake and Output Vital Signs (last 24 hours): Temp Pulse Resp BP Pulse Ox 98.7 F 97 H 18 155/91 H 97 08/04/17 15:00 08/04/17 15:00 08/04/17 15:00 08/04/17 15:00 08/04/17 15:00 Intake and Output: 08/04/17 08/05/17 18:59 06:59 Intake Total 550 Balance 550 - Medications Medications: Current Medications Abacavir Sulfate (Ziagen) 300 mg PO BID [facility] PRN Reason: Protocol Last Admin: 08/04/17 18:46 Dose: 300 mg Amlodipine Besylate (Norvasc) 10 mg PO DAILY [facility] Last Admin: 08/04/17 10:14 Dose: 10 mg Calcitriol (Rocaltrol) 0.25 mcg PO TTS [facility] Last Admin: 08/03/17 10:51 Dose: 0.25 mcg Dolutegravir Sodium (Tivicay) 50 mg PO DAILY [facility] PRN Reason: Protocol Last Admin: 08/04/17 10:13 Dose: 50 mg Epoetin Anival (Procrit) 20,000 unit SC TTS [facility] Last Admin: 08/03/17 14:06 Dose: 20,000 unit Ferric Sodium Gluconate Complex (Ferrlecit) 125 mg IVPB DAILY [facility] Stop: 08/10/17 10:01 Last Admin: 08/04/17 10:15 Dose: 125 mg Cefepime HCl 1 gm/ Dextrose 50 mls @ 100 mls/hr IVPB DAILY [facility] PRN Reason: Protocol Last Admin: 08/04/17 10:16 Dose: 100 mls/hr Vancomycin/Sodium Chloride (Vancomycin 1 Gm/Ns 200 Ml) 1 gm in 200 mls @ 133.333 mls/hr IVPB Q48H [facility] PRN Reason: Protocol Last Admin: 08/04/17 14:46 Dose: 133.333 mls/hr Insulin Aspart (Novolog) 16 unit SC BID [facility] Last Admin: 08/04/17 17:57 Dose: Not Given Insulin Glargine (Lantus) 16 unit SC HS [facility] Last Admin: 08/03/17 22:14 Dose: Not Given Insulin Human Regular (Novolin R) 0 unit SC ACHS [facility] PRN Reason: Protocol Last Admin: 08/04/17 18:53 Dose: 2 unit Labetalol HCl (Normodyne) 300 mg PO Q8H [facility] Last Admin: 08/04/17 16:45 Dose: 300 mg Lamivudine (Epivir) 150 mg PO DAILY [facility] PRN Reason: Protocol Last Admin: 08/04/17 10:13 Dose: 150 mg Morphine Sulfate (Morphine) 2 mg IV Q4 PRN PRN Reason: Pain, severe (8-10) Last Admin: 08/04/17 18:47 Dose: 2 mg Ondansetron HCl (Zofran Inj) 4 mg IVP Q6H PRN PRN Reason: Nausea/Vomiting Last Admin: 08/04/17 06:03 Dose: 4 mg Saccharomyces Boulardii (Florastor) 250 mg PO BID [facility] Last Admin: 08/04/17 18:46 Dose: 250 mg Sertraline HCl (Zoloft) 50 mg PO DAILY [facility] Last Admin: 08/04/17 10:13 Dose: 50 mg Sodium Bicarbonate (Sodium Bicarbonate Tab) 650 mg PO Q8 [facility] Last Admin: 08/04/17 14:46 Dose: 650 mg Sodium Hypochlorite (Dakins Solution 0.125%) 0 appl TOP DAILY [facility] Last Admin: 08/04/17 10:18 Dose: 20 appl Vitamin B Complex/Vit C/Folic Acid (Nephro-Rosario) 1 tab PO 0800 [facility] Last Admin: 08/04/17 08:13 Dose: 1 tab - Labs Labs: 08/04/17 07:38 08/04/17 07:38
--- NOTE | 2017-08-04 22:28 | CP.PCM.PN ---
Subjective - Date & Time of Evaluation Date of Evaluation: 08/04/17 Time of Evaluation: 13:20 - Subjective Subjective: Has pain in legs Objective - Vital Signs/Intake and Output Vital Signs (last 24 hours): Temp Pulse Resp BP Pulse Ox 98.7 F 97 H 18 155/91 H 97 08/04/17 15:00 08/04/17 15:00 08/04/17 15:00 08/04/17 15:00 08/04/17 15:00 Intake and Output: 08/04/17 08/05/17 18:59 06:59 Intake Total 550 Balance 550 - Medications Medications: Current Medications Abacavir Sulfate (Ziagen) 300 mg PO BID [facility] PRN Reason: Protocol Last Admin: 08/04/17 18:46 Dose: 300 mg Amlodipine Besylate (Norvasc) 10 mg PO DAILY [facility] Last Admin: 08/04/17 10:14 Dose: 10 mg Calcitriol (Rocaltrol) 0.25 mcg PO TTS [facility] Last Admin: 08/03/17 10:51 Dose: 0.25 mcg Dolutegravir Sodium (Tivicay) 50 mg PO DAILY [facility] PRN Reason: Protocol Last Admin: 08/04/17 10:13 Dose: 50 mg Epoetin Anival (Procrit) 20,000 unit SC TTS [facility] Last Admin: 08/03/17 14:06 Dose: 20,000 unit Ferric Sodium Gluconate Complex (Ferrlecit) 125 mg IVPB DAILY [facility] Stop: 08/10/17 10:01 Last Admin: 08/04/17 10:15 Dose: 125 mg Cefepime HCl 1 gm/ Dextrose 50 mls @ 100 mls/hr IVPB DAILY [facility] PRN Reason: Protocol Last Admin: 08/04/17 10:16 Dose: 100 mls/hr Vancomycin/Sodium Chloride (Vancomycin 1 Gm/Ns 200 Ml) 1 gm in 200 mls @ 133.333 mls/hr IVPB Q48H [facility] PRN Reason: Protocol Last Admin: 08/04/17 14:46 Dose: 133.333 mls/hr Insulin Aspart (Novolog) 16 unit SC BID [facility] Last Admin: 08/04/17 17:57 Dose: Not Given Insulin Glargine (Lantus) 16 unit SC HS [facility] Last Admin: 08/03/17 22:14 Dose: Not Given Insulin Human Regular (Novolin R) 0 unit SC [facility] PRN Reason: Protocol Last Admin: 08/04/17 18:53 Dose: 2 unit Labetalol HCl (Normodyne) 300 mg PO Q8H [facility] Last Admin: 08/04/17 16:45 Dose: 300 mg Lamivudine (Epivir) 150 mg PO DAILY [facility] PRN Reason: Protocol Last Admin: 08/04/17 10:13 Dose: 150 mg Morphine Sulfate (Morphine) 2 mg IV Q4 PRN PRN Reason: Pain, severe (8-10) Last Admin: 08/04/17 18:47 Dose: 2 mg Ondansetron HCl (Zofran Inj) 4 mg IVP Q6H PRN PRN Reason: Nausea/Vomiting Last Admin: 08/04/17 06:03 Dose: 4 mg Saccharomyces Boulardii (Florastor) 250 mg PO BID [facility] Last Admin: 08/04/17 18:46 Dose: 250 mg Sertraline HCl (Zoloft) 50 mg PO DAILY [facility] Last Admin: 08/04/17 10:13 Dose: 50 mg Sodium Bicarbonate (Sodium Bicarbonate Tab) 650 mg PO Q8 [facility] Last Admin: 08/04/17 14:46 Dose: 650 mg Sodium Hypochlorite (Dakins Solution 0.125%) 0 appl TOP DAILY [facility] Last Admin: 08/04/17 10:18 Dose: 20 appl Vitamin B Complex/Vit C/Folic Acid (Nephro-Rosario) 1 tab PO 0800 [facility] Last Admin: 08/04/17 08:13 Dose: 1 tab - Labs Labs: 08/04/17 07:38 08/04/17 07:38 - Head Exam Head Exam: ATRAUMATIC - Eye Exam Eye Exam: Normal appearance - ENT Exam ENT Exam: Mucous Membranes Dry - Respiratory Exam Respiratory Exam: NORMAL BREATHING PATTERN - Cardiovascular Exam Cardiovascular Exam: +S1, +S2 - GI/Abdominal Exam GI & Abdominal Exam: Normal Bowel Sounds Assessment and Plan (1) Anemia Assessment & Plan: multifactorial anemia of chronic disease from osteomyelitis anemia of CKD anemia of HIV on KIT to decrease transfusion requirements. Status: Acute (2) Monoclonal gammopathy Assessment & Plan: + monoclonal protein detected in urine f/u free light chain assay skeletal survey to evaluate for lytic lesions possible bone marrow +/- kidney biopsy pending above w/u Status: Acute
[2017-08-04] MEDS: (Lantus) Insulin Glargine, Recombinant SC SCH (22:52)
--- NOTE | 2017-08-05 03:44 | PN ---
DATE: 08/04/2017 LOCATION: The patient is located room 570, bed A. REQUESTED BY: Art Nathan MD REASON FOR FOLLOWUP: Acute renal failure, anemia. HISTORY OF PRESENT ILLNESS: Mrs. Johnson is a 36 years old young transgender female with a history of longstanding hypertension, diabetes, HIV positive, osteomyelitis of the left foot, Charcot's foot, anemia, renal failure, proteinuria, is being treated for possible osteomyelitis. The patient is not in acute distress and denies any chest pain or palpitation. Denies any fever or cough. No abdominal pain. No nausea, vomiting, diarrhea. PHYSICAL EXAMINATION: VITAL SIGNS: As follows, blood pressure 155/91, pulse 97, respirations 18, temperature 98.7, saturation 97%. Height 6 feet 3 inches, weight is 280 pounds. GENERAL: Mrs. Johnson is 36 years old young transgender female, well-built, well-nourished, not in distress. HEENT: Pupils normal and reactive to light and accommodation. Conjunctivae slightly pale. Sclerae anicteric. Tongue is moist. Trachea is midline. LUNGS: Symmetric on both sides. Bilateral breath sounds present. Clear to auscultation. CVS: [place] at the fifth intercostal space, midclavicular line. S1, S2 audible. No murmur or gallop. ABDOMEN: Normal in appearance, soft, tympanic. No guarding. No rigidity. No hepatosplenomegaly. DIGITIZER OPERATOR: The patient is alert, awake, and oriented x3. Nonfocal neuro examination. Cranial nerves II through XII grossly intact. Sensory and motor system is within normal limits. EXTREMITIES: No cyanosis, no clubbing, no edema on the right leg. The patient has a dressing to the left foot and also left leg was swollen below the knee joint. MEDICATIONS: Her current medications include as follows, cefepime 1 gm daily, Epivir 150 mg p.o. daily, Ferrlecit 125 mg daily, Florastor 250 mg p.o. b.i.d., Lantus 16 units subcu at bedtime, Nephro-Rosario 1 tablet daily, labetalol 300 mg p.o. every 8 hours, amlodipine 10 mg daily, Novolin R for sliding scale, NovoLog 16 units subcu b.i.d., Procrit 20,000 units subcu three times a week, sodium bicarb 650 mg p.o. every 8 hours, Tivicay 50 mg p.o. daily, vancomycin 1 gm every 48 hours, abacavir 300 mg p.o. b.i.d. LABORATORY DATA: Other laboratory data, WBC 11, hemoglobin 7.7, hematocrit is 22, platelets 498. Sodium 139, potassium 5.2, chloride 108, CO of 22, BUN 40, creatinine 4.2, glucose 105, calcium 8.9. Total bili 0.5, AST 40, ALT 18, alkaline phosphatase 190, total protein 8.4, albumin is 5.8, globulin 5.6. IMPRESSION: In summary, Mrs. Johnson is 36 years old young transgender female with diabetes, hypertension, human immunodeficiency virus positive, osteomyelitis of left foot, Charcot's foot, proteinuria, anemia, metabolic acidosis, and hyperkalemia, status post transfusion. 1. Acute renal failure on chronic kidney disease versus progression of the chronic kidney disease. Rule out diabetic nephropathy versus chronic glomerulonephritis as such as focal segmental glomerulonephritis, rule out multiple myeloma. 2. Anemia secondary to multifactorial iron-deficiency anemia, chronic kidney disease, and also with abnormal UPEP, rule out multiple myeloma. 3. Metabolic acidosis. 4. Second hyperparathyroidism. 5. Osteomyelitis of the foot. Continue cefepime and vancomycin. Follow up with human resources district manager, Dr. Mcfarlane. Follow up serum immunofixation, urine immunofixation, and serum free light chains, and beta-2 microglobulin. Overall prognosis is guarded. Thank you for allowing me to participate in your patient's care. Weston Brambila MD
[2017-08-05] MEDS: (Novolin R) Insulin Human Regular 100 units/ml vial SC SCH ×4 (07:30→21:57)
[2017-08-05 07:32] LABS: BASO # 0.1 K/uL (0.0-0.2); BASO % 0.5 % (0.0-2.0); EOS # 0.4 K/uL (0.0-0.7); EOS % 2.6 % (0.0-4.0); LYMPH # 1.9 K/uL (1.0-4.3); LYMPH % 13.8 % (20.0-40.0); MEAN CELL VOLUME 86.1 fL (81.0-99.0); MEAN CORPUSCULAR HEMOGLOBIN 28.7 pg (27.0-31.0); MEAN CORPUSCULAR HGB CONC 33.3 g/dL (33.0-37.0); MEAN PLATELET VOLUME 6.7 fL (7.2-11.7); MONO # 1.1 K/uL (0.0-0.8); MONO % 7.9 % (0.0-10.0); NEUT # 10.4 K/uL (1.8-7.0); NEUT % 75.2 % (50.0-75.0); NRBC % 0.1 % (0.0-2.0); RBC 2.77 Mil/uL (3.80-5.20); RED CELL DISTRIBUTION WIDTH 16.6 % (11.5-14.5); WHITE BLOOD COUNT 13.9 K/uL (4.8-10.8)
[2017-08-05 08:07] LABS: ALB/GLOB RATIO 0.5 (1.0-2.1); ALBUMIN 2.9 g/dL (3.5-5.0); CALCIUM 8.9 mg/dl (8.6-10.4)
[2017-08-05] MEDS: Multivitamin Vitamin B Complex (Nephro-Vite) Tab PO SCH (08:07)
[2017-08-05] MEDS: Labetalol Hydrochloride 300 mg Tab PO SCH ×2 (08:07→15:53)
[2017-08-05] MEDS: Ferric Sodium Gluconat Complex 62.5 mg/5 ml Vial IVPB SCH (10:39)
[2017-08-05] MEDS: Saccharomyces Boulardi 250 mg Cap PO SCH ×2 (10:40→18:54)
[2017-08-05] MEDS: (Novolog) Insulin Aspart, Recombinant 100 u/ml 10 ml vial SC SCH ×2 (10:48→18:00)
[2017-08-05] MEDS ORDERED: Sod Polystyrene Sulf 15 gm/60 ml Susp PO ONE (10:58)
--- NOTE | 2017-08-05 11:19 | CP.PCM.PN ---
Subjective - Date & Time of Evaluation Date of Evaluation: 08/05/17 Time of Evaluation: 11:18 - Subjective Subjective: pt is seen and examined, follow up consult is dictated #[id number] Objective - Vital Signs/Intake and Output Vital Signs (last 24 hours): Temp Pulse Resp BP Pulse Ox 98.5 F 94 H 20 135/81 97 08/05/17 08:00 08/05/17 08:00 08/05/17 08:00 08/05/17 08:00 08/05/17 08:00 Intake and Output: 08/05/17 08/05/17 06:59 18:59 Output Total 2100 Balance -2100 - Medications Medications: Current Medications Amlodipine Besylate (Norvasc) 10 mg PO DAILY [facility] Last Admin: 08/05/17 10:39 Dose: 10 mg Calcitriol (Rocaltrol) 0.25 mcg PO TTS [facility] Last Admin: 08/05/17 10:39 Dose: 0.25 mcg Dolutegravir Sodium (Tivicay) 50 mg PO DAILY [facility] PRN Reason: Protocol Last Admin: 08/05/17 10:49 Dose: Not Given Epoetin Anival (Procrit) 20,000 unit SC TTS [facility] Last Admin: 08/03/17 14:06 Dose: 20,000 unit Ferric Sodium Gluconate Complex (Ferrlecit) 125 mg IVPB DAILY [facility] Stop: 08/10/17 10:01 Last Admin: 08/05/17 10:39 Dose: 125 mg Cefepime HCl 1 gm/ Dextrose 50 mls @ 100 mls/hr IVPB DAILY [facility] PRN Reason: Protocol Last Admin: 08/05/17 10:39 Dose: 100 mls/hr Vancomycin/Sodium Chloride (Vancomycin 1 Gm/Ns 200 Ml) 1 gm in 200 mls @ 133.333 mls/hr IVPB Q48H [facility] PRN Reason: Protocol Last Admin: 08/04/17 14:46 Dose: 133.333 mls/hr Insulin Aspart (Novolog) 16 unit SC BID [facility] Last Admin: 08/05/17 10:48 Dose: Not Given Insulin Glargine (Lantus) 16 unit SC HS [facility] Last Admin: 08/04/17 22:52 Dose: Not Given Insulin Human Regular (Novolin R) 0 unit SC ACHS [facility] PRN Reason: Protocol Last Admin: 08/05/17 07:30 Dose: Not Given Labetalol HCl (Normodyne) 300 mg PO Q8H [facility] Last Admin: 08/05/17 08:07 Dose: 300 mg Morphine Sulfate (Morphine) 2 mg IV Q4 PRN PRN Reason: Pain, severe (8-10) Last Admin: 08/05/17 08:07 Dose: 2 mg Ondansetron HCl (Zofran Inj) 4 mg IVP Q6H PRN PRN Reason: Nausea/Vomiting Last Admin: 08/05/17 05:03 Dose: 4 mg Saccharomyces Boulardii (Florastor) 250 mg PO BID [facility] Last Admin: 08/05/17 10:40 Dose: 250 mg Sertraline HCl (Zoloft) 50 mg PO DAILY [facility] Last Admin: 08/05/17 10:39 Dose: 50 mg Sodium Bicarbonate (Sodium Bicarbonate Tab) 650 mg PO Q8 [facility] Last Admin: 08/05/17 06:22 Dose: 650 mg Sodium Hypochlorite (Dakins Solution 0.125%) 0 appl TOP DAILY [facility] Last Admin: 08/05/17 10:40 Dose: 20 appl Vitamin B Complex/Vit C/Folic Acid (Nephro-Rosario) 1 tab PO 0800 [facility] Last Admin: 08/05/17 08:07 Dose: 1 tab - Labs Labs: 08/05/17 07:13 08/05/17 07:13
--- NOTE | 2017-08-05 11:31 | CP.PCM.PN ---
Subjective - Date & Time of Evaluation Date of Evaluation: 08/05/17 Time of Evaluation: 11:31 - Subjective Subjective: Podiatry Progress note for Dr. Coy 36 year old female seen at bedside with attending, Dr. Coy 5 day s/p left foot incision and drainage of abscess and sinus tract with multiple infected diabetic ulcerations. She currently admits to pain in her foot. She is seen resting comfortably at bedside. She states that today she doesnt feel well and had a fever overnight. Denies F/C/N/V/CP/SOB Objective - Vital Signs/Intake and Output Vital Signs (last 24 hours): Temp Pulse Resp BP Pulse Ox 98.5 F 94 H 20 135/81 97 08/05/17 08:00 08/05/17 08:00 08/05/17 08:00 08/05/17 08:00 08/05/17 08:00 Intake and Output: 08/05/17 08/05/17 06:59 18:59 Output Total 2100 Balance -2100 - Medications Medications: Current Medications Amlodipine Besylate (Norvasc) 10 mg PO DAILY [facility] Last Admin: 08/05/17 10:39 Dose: 10 mg Calcitriol (Rocaltrol) 0.25 mcg PO TTS [facility] Last Admin: 08/05/17 10:39 Dose: 0.25 mcg Dolutegravir Sodium (Tivicay) 50 mg PO DAILY [facility] PRN Reason: Protocol Last Admin: 08/05/17 10:49 Dose: Not Given Epoetin Anival (Procrit) 20,000 unit SC TTS [facility] Last Admin: 08/03/17 14:06 Dose: 20,000 unit Ferric Sodium Gluconate Complex (Ferrlecit) 125 mg IVPB DAILY [facility] Stop: 08/10/17 10:01 Last Admin: 08/05/17 10:39 Dose: 125 mg Cefepime HCl 1 gm/ Dextrose 50 mls @ 100 mls/hr IVPB DAILY [facility] PRN Reason: Protocol Last Admin: 08/05/17 10:39 Dose: 100 mls/hr Vancomycin/Sodium Chloride (Vancomycin 1 Gm/Ns 200 Ml) 1 gm in 200 mls @ 133.333 mls/hr IVPB Q48H [facility] PRN Reason: Protocol Last Admin: 08/04/17 14:46 Dose: 133.333 mls/hr Insulin Aspart (Novolog) 16 unit SC BID [facility] Last Admin: 08/05/17 10:48 Dose: Not Given Insulin Glargine (Lantus) 16 unit SC HS [facility] Last Admin: 08/04/17 22:52 Dose: Not Given Insulin Human Regular (Novolin R) 0 unit SC ACHS [facility] PRN Reason: Protocol Last Admin: 08/05/17 07:30 Dose: Not Given Labetalol HCl (Normodyne) 300 mg PO Q8H [facility] Last Admin: 08/05/17 08:07 Dose: 300 mg Morphine Sulfate (Morphine) 2 mg IV Q4 PRN PRN Reason: Pain, severe (8-10) Last Admin: 08/05/17 08:07 Dose: 2 mg Ondansetron HCl (Zofran Inj) 4 mg IVP Q6H PRN PRN Reason: Nausea/Vomiting Last Admin: 08/05/17 05:03 Dose: 4 mg Saccharomyces Boulardii (Florastor) 250 mg PO BID [facility] Last Admin: 08/05/17 10:40 Dose: 250 mg Sertraline HCl (Zoloft) 50 mg PO DAILY [facility] Last Admin: 08/05/17 10:39 Dose: 50 mg Sodium Bicarbonate (Sodium Bicarbonate Tab) 650 mg PO Q8 [facility] Last Admin: 08/05/17 06:22 Dose: 650 mg Sodium Hypochlorite (Dakins Solution 0.125%) 0 appl TOP DAILY [facility] Last Admin: 08/05/17 10:40 Dose: 20 appl Vitamin B Complex/Vit C/Folic Acid (Nephro-Rosario) 1 tab PO 0800 [facility] Last Admin: 08/05/17 08:07 Dose: 1 tab - Labs Labs: 08/05/17 07:13 08/05/17 07:13 - Constitutional Appears: Non-toxic, No Acute Distress - Extremities Exam Additional comments: Left lower extremity focused exam:strikethrough noted to the dressing with foul odor VASC- DP pulse faintly palpable, skin temp runs warm to warm, cap refill < 4 sec , 3+ pitting edema is noted to dorsum of foot DERM- Foul malodor noted to the entire foot. Full-thickness ulceration noted to dorsal aspect of foot which measures approximately 0.5 x 4.0 x1.5cm (no active drainage, + purulence, with mixed fibrogranular base which tracks proximally 0.5 cm , macerated border), there is a 2nd full-thickness ulceration noted to dorsal-lateral aspect of 5th metatarsal amputation site measures 1.0x4.0x1.5cm with mixed fibrogranular base and somewhat macerated border ( + purulence, ), third ulceration noted just plantar to the 2nd wound measures 0.5x1.0x1.0 cm ( mixed fibrogranular base, macerated border, neg tracking, + purulent drainage), superficial ulceration noted to distal lateral leg measures approx. 3.0x5.0x0.3cm with mixed fibrogranular base. Lateral midfoot surgical site with all sutrures intact, boggy periwound maceration noted, gross lichenification of pedal skin NEURO- gross and protective pedal sensation are diminished MSK- tenderness noted to palp of wound sites - Neurological Exam Neurological Exam: Alert, Awake, Oriented x3 - Psychiatric Exam Psychiatric exam: Normal Affect, Normal Mood Assessment and Plan - Assessment and Plan (Free Text) Assessment: 36 y/o female 5 day s/p left foot incision and drainage of sinus tract and abscess secondary to infected diabetic ulcerations Plan: Pt seen and evaluated at bedside with attending Dr. Coy Labs and vitals reviewed - febrile overnight, WBC 13.9 Dressing changed with dakins W2D, 4x4, ABD, kerlix, RAFFY Patient is agreeable for TMA Patient to have TMA tomorrow at 7:30 am NPO after midnight medical optimization needed anti-coags held ID Dr. Del Valle on board, appreciate recs Continue pain mgt per primary team Will continue to follow patient while in house
--- NOTE | 2017-08-05 11:50 | CP.PCM.PN ---
Subjective - Date & Time of Evaluation Date of Evaluation: 08/05/17 Time of Evaluation: 11:47 - Subjective Subjective: FEBRILE. LEG PAIN PRESENT. SEPTIC. RECENT CULTURES ARE NEG. LEUKOCYTOSIS PRESENT. BP WNL.LT FOOT SAME. Objective - Vital Signs/Intake and Output Vital Signs (last 24 hours): Temp Pulse Resp BP Pulse Ox 98.5 F 94 H 20 135/81 97 08/05/17 08:00 08/05/17 08:00 08/05/17 08:00 08/05/17 08:00 08/05/17 08:00 Intake and Output: 08/05/17 08/05/17 06:59 18:59 Output Total 2100 Balance -2100 - Medications Medications: Current Medications Amlodipine Besylate (Norvasc) 10 mg PO DAILY [facility] Last Admin: 08/05/17 10:39 Dose: 10 mg Calcitriol (Rocaltrol) 0.25 mcg PO TTS [facility] Last Admin: 08/05/17 10:39 Dose: 0.25 mcg Dolutegravir Sodium (Tivicay) 50 mg PO DAILY [facility] PRN Reason: Protocol Last Admin: 08/05/17 10:49 Dose: Not Given Epoetin Anival (Procrit) 20,000 unit SC TTS [facility] Last Admin: 08/03/17 14:06 Dose: 20,000 unit Ferric Sodium Gluconate Complex (Ferrlecit) 125 mg IVPB DAILY [facility] Stop: 08/10/17 10:01 Last Admin: 08/05/17 10:39 Dose: 125 mg Cefepime HCl 1 gm/ Dextrose 50 mls @ 100 mls/hr IVPB DAILY [facility] PRN Reason: Protocol Last Admin: 08/05/17 10:39 Dose: 100 mls/hr Vancomycin/Sodium Chloride (Vancomycin 1 Gm/Ns 200 Ml) 1 gm in 200 mls @ 133.333 mls/hr IVPB Q48H [facility] PRN Reason: Protocol Last Admin: 08/04/17 14:46 Dose: 133.333 mls/hr Insulin Aspart (Novolog) 16 unit SC BID [facility] Last Admin: 08/05/17 10:48 Dose: Not Given Insulin Glargine (Lantus) 16 unit SC HS [facility] Last Admin: 08/04/17 22:52 Dose: Not Given Insulin Human Regular (Novolin R) 0 unit SC ACHS [facility] PRN Reason: Protocol Last Admin: 08/05/17 07:30 Dose: Not Given Labetalol HCl (Normodyne) 300 mg PO Q8H [facility] Last Admin: 08/05/17 08:07 Dose: 300 mg Morphine Sulfate (Morphine) 2 mg IV Q4 PRN PRN Reason: Pain, severe (8-10) Last Admin: 08/05/17 08:07 Dose: 2 mg Ondansetron HCl (Zofran Inj) 4 mg IVP Q6H PRN PRN Reason: Nausea/Vomiting Last Admin: 08/05/17 05:03 Dose: 4 mg Saccharomyces Boulardii (Florastor) 250 mg PO BID [facility] Last Admin: 08/05/17 10:40 Dose: 250 mg Sertraline HCl (Zoloft) 50 mg PO DAILY [facility] Last Admin: 08/05/17 10:39 Dose: 50 mg Sodium Bicarbonate (Sodium Bicarbonate Tab) 650 mg PO Q8 [facility] Last Admin: 08/05/17 06:22 Dose: 650 mg Sodium Hypochlorite (Dakins Solution 0.125%) 0 appl TOP DAILY [facility] Last Admin: 08/05/17 10:40 Dose: 20 appl Vitamin B Complex/Vit C/Folic Acid (Nephro-Rosario) 1 tab PO 0800 [facility] Last Admin: 08/05/17 08:07 Dose: 1 tab - Labs Labs: 08/05/17 07:13 08/05/17 07:13 - Constitutional Appears: No Acute Distress, Chronically Ill - Eye Exam Eye Exam: EOMI, Normal appearance, PERRL Pupil Exam: NORMAL ACCOMODATION, PERRL - ENT Exam ENT Exam: Mucous Membranes Moist, Normal Exam - Neck Exam Neck Exam: Full ROM, Normal Inspection. absent: Lymphadenopathy - Respiratory Exam Respiratory Exam: Clear to Ausculation Bilateral, NORMAL BREATHING PATTERN - Cardiovascular Exam Cardiovascular Exam: REGULAR RHYTHM, +S1, +S2. absent: Murmur - GI/Abdominal Exam GI & Abdominal Exam: Soft, Normal Bowel Sounds. absent: Tenderness - Extremities Exam Extremities Exam: Full ROM, Normal Capillary Refill, Normal Inspection. absent : Joint Swelling, Pedal Edema - Neurological Exam Neurological Exam: Alert, Awake, CN II-XII Intact, Normal Gait, Oriented x3 Assessment and Plan - Assessment and Plan (Free Text) Assessment: ABOVE. Plan: FOR IV ABTS. F/U WITH DR. MCKEON AND DR. REYES.
[2017-08-05] MEDS: Epoetin Alfa Dialysis 20000 UNIT/ML Inj SC SCH (13:42)
--- NOTE | 2017-08-05 14:13 | CP.PCM.PN ---
Subjective - Date & Time of Evaluation Date of Evaluation: 08/05/17 Time of Evaluation: 13:00 - Subjective Subjective: Has pain in leg Objective - Vital Signs/Intake and Output Vital Signs (last 24 hours): Temp Pulse Resp BP Pulse Ox 98.5 F 94 H 20 135/81 97 08/05/17 08:00 08/05/17 08:00 08/05/17 08:00 08/05/17 08:00 08/05/17 08:00 Intake and Output: 08/05/17 08/05/17 06:59 18:59 Output Total 2100 Balance -2100 - Medications Medications: Current Medications Amlodipine Besylate (Norvasc) 10 mg PO DAILY [facility] Last Admin: 08/05/17 10:39 Dose: 10 mg Calcitriol (Rocaltrol) 0.25 mcg PO TTS [facility] Last Admin: 08/05/17 10:39 Dose: 0.25 mcg Dolutegravir Sodium (Tivicay) 50 mg PO DAILY [facility] PRN Reason: Protocol Last Admin: 08/05/17 10:49 Dose: Not Given Epoetin Naival (Procrit) 20,000 unit SC TTS [facility] Last Admin: 08/05/17 13:42 Dose: 20,000 unit Ferric Sodium Gluconate Complex (Ferrlecit) 125 mg IVPB DAILY [facility] Stop: 08/10/17 10:01 Last Admin: 08/05/17 10:39 Dose: 125 mg Cefepime HCl 1 gm/ Dextrose 50 mls @ 100 mls/hr IVPB DAILY [facility] PRN Reason: Protocol Last Admin: 08/05/17 10:39 Dose: 100 mls/hr Vancomycin/Sodium Chloride (Vancomycin 1 Gm/Ns 200 Ml) 1 gm in 200 mls @ 133.333 mls/hr IVPB Q48H [facility] PRN Reason: Protocol Last Admin: 08/04/17 14:46 Dose: 133.333 mls/hr Insulin Aspart (Novolog) 16 unit SC BID [facility] Last Admin: 08/05/17 10:48 Dose: Not Given Insulin Glargine (Lantus) 16 unit SC HS [facility] Last Admin: 08/04/17 22:52 Dose: Not Given Insulin Human Regular (Novolin R) 0 unit SC ACHS [facility] PRN Reason: Protocol Last Admin: 08/05/17 11:58 Dose: 2 unit Labetalol HCl (Normodyne) 300 mg PO Q8H [facility] Last Admin: 08/05/17 08:07 Dose: 300 mg Morphine Sulfate (Morphine) 2 mg IV Q4 PRN PRN Reason: Pain, severe (8-10) Last Admin: 08/05/17 11:58 Dose: 2 mg Ondansetron HCl (Zofran Inj) 4 mg IVP Q6H PRN PRN Reason: Nausea/Vomiting Last Admin: 08/05/17 05:03 Dose: 4 mg Saccharomyces Boulardii (Florastor) 250 mg PO BID [facility] Last Admin: 08/05/17 10:40 Dose: 250 mg Sertraline HCl (Zoloft) 50 mg PO DAILY [facility] Last Admin: 08/05/17 10:39 Dose: 50 mg Sodium Bicarbonate (Sodium Bicarbonate Tab) 650 mg PO Q8 [facility] Last Admin: 08/05/17 06:22 Dose: 650 mg Sodium Hypochlorite (Dakins Solution 0.125%) 0 appl TOP DAILY [facility] Last Admin: 08/05/17 10:40 Dose: 20 appl Vitamin B Complex/Vit C/Folic Acid (Nephro-Rosario) 1 tab PO 0800 [facility] Last Admin: 08/05/17 08:07 Dose: 1 tab - Labs Labs: 08/05/17 07:13 08/05/17 07:13 - Head Exam Head Exam: ATRAUMATIC - Eye Exam Eye Exam: Normal appearance - ENT Exam ENT Exam: Mucous Membranes Dry - Respiratory Exam Respiratory Exam: NORMAL BREATHING PATTERN - Cardiovascular Exam Cardiovascular Exam: +S1, +S2 - GI/Abdominal Exam GI & Abdominal Exam: Normal Bowel Sounds Assessment and Plan (1) Anemia Assessment & Plan: multifactorial anemia of chronic disease from osteomyelitis anemia of CKD anemia of HIV on KIT to decrease transfusion requirements. Status: Acute (2) Monoclonal gammopathy Assessment & Plan: + monoclonal protein detected in urine f/u free light chain assay skeletal survey to evaluate for lytic lesions possible bone marrow +/- kidney biopsy pending above w/u Status: Acute
[2017-08-05 14:19] LABS: INR 1.3; PROTHROMBIN TIME 14.4 SECONDS (9.7-12.2)
--- NOTE | 2017-08-05 14:44 | CP.PCM.PN ---
Subjective - Date & Time of Evaluation Date of Evaluation: 08/05/17 Time of Evaluation: 14:44 - Subjective Subjective: PATIENT IS ADMITTING FOR DIABETIC FOOT ULCER/OSTEOMYELITIS AAOX3/ DENIES CHEST PAIN OR SOB NO SIGN OF DISTRESS NOTED AT THIS TIME Objective - Vital Signs/Intake and Output Vital Signs (last 24 hours): Temp Pulse Resp BP Pulse Ox 98.5 F 94 H 20 135/81 97 08/05/17 08:00 08/05/17 08:00 08/05/17 08:00 08/05/17 08:00 08/05/17 08:00 Intake and Output: 08/05/17 08/05/17 06:59 18:59 Output Total 2100 Balance -2100 - Medications Medications: Current Medications Amlodipine Besylate (Norvasc) 10 mg PO DAILY [facility] Last Admin: 08/05/17 10:39 Dose: 10 mg Calcitriol (Rocaltrol) 0.25 mcg PO TTS [facility] Last Admin: 08/05/17 10:39 Dose: 0.25 mcg Dolutegravir Sodium (Tivicay) 50 mg PO DAILY [facility] PRN Reason: Protocol Last Admin: 08/05/17 10:49 Dose: Not Given Epoetin Anival (Procrit) 20,000 unit SC TTS [facility] Last Admin: 08/05/17 13:42 Dose: 20,000 unit Ferric Sodium Gluconate Complex (Ferrlecit) 125 mg IVPB DAILY [facility] Stop: 08/10/17 10:01 Last Admin: 08/05/17 10:39 Dose: 125 mg Cefepime HCl 1 gm/ Dextrose 50 mls @ 100 mls/hr IVPB DAILY [facility] PRN Reason: Protocol Last Admin: 08/05/17 10:39 Dose: 100 mls/hr Vancomycin/Sodium Chloride (Vancomycin 1 Gm/Ns 200 Ml) 1 gm in 200 mls @ 133.333 mls/hr IVPB Q48H [facility] PRN Reason: Protocol Last Admin: 08/04/17 14:46 Dose: 133.333 mls/hr Insulin Aspart (Novolog) 16 unit SC BID [facility] Last Admin: 08/05/17 10:48 Dose: Not Given Insulin Glargine (Lantus) 16 unit SC HS [facility] Last Admin: 08/04/17 22:52 Dose: Not Given Insulin Human Regular (Novolin R) 0 unit SC ACHS [facility] PRN Reason: Protocol Last Admin: 08/05/17 11:58 Dose: 2 unit Labetalol HCl (Normodyne) 300 mg PO Q8H [facility] Last Admin: 08/05/17 08:07 Dose: 300 mg Morphine Sulfate (Morphine) 2 mg IV Q4 PRN PRN Reason: Pain, severe (8-10) Last Admin: 08/05/17 11:58 Dose: 2 mg Ondansetron HCl (Zofran Inj) 4 mg IVP Q6H PRN PRN Reason: Nausea/Vomiting Last Admin: 08/05/17 05:03 Dose: 4 mg Saccharomyces Boulardii (Florastor) 250 mg PO BID [facility] Last Admin: 08/05/17 10:40 Dose: 250 mg Sertraline HCl (Zoloft) 50 mg PO DAILY [facility] Last Admin: 08/05/17 10:39 Dose: 50 mg Sodium Bicarbonate (Sodium Bicarbonate Tab) 650 mg PO Q8 [facility] Last Admin: 08/05/17 14:18 Dose: 650 mg Sodium Hypochlorite (Dakins Solution 0.125%) 0 appl TOP DAILY [facility] Last Admin: 08/05/17 10:40 Dose: 20 appl Vitamin B Complex/Vit C/Folic Acid (Nephro-Rosario) 1 tab PO 0800 [facility] Last Admin: 08/05/17 08:07 Dose: 1 tab - Labs Labs: 08/05/17 07:13 08/05/17 07:13 PT 14.4 SECONDS (9.7-12.2) H 08/05/17 14:01 INR 1.3 08/05/17 14:01 APTT 34 SECONDS (21-34) 08/05/17 14:01 Assessment and Plan - Assessment and Plan (Free Text) Assessment: PATIENT SEEN AFEBRILE. LEG PAIN PRESENT. SEPTIC. RECENT CULTURES ARE NEG. LEUKOCYTOSIS PRESENT. BP WNL.LT FOOT SAME. PER DR MCKEON PATIENT IS CLEAR FOR SX PER DR RENE IS CLEAR FOR SX/ PATIENT REFUSED ANY INVASIVE RENAL INTERVENTION AT THIS TIME/ THE PROCEDURE OUTWEIGH THE RISK THEREFORE PATIENT WILL BENEFIT FROM IT AND CREATININE CANNOT BE IMPROVE AT THIS TIME. PER DR Alanna ZEE PATIENT IS MEDICALLY CLEAR FOR TMA TOMORROW
--- NOTE | 2017-08-05 19:14 | CP.PCM.PN ---
Subjective - Date & Time of Evaluation Date of Evaluation: 08/05/17 Time of Evaluation: 10:00 - Subjective Subjective: discussed on rounds agrres to TMA iv rx renewed Objective - Vital Signs/Intake and Output Vital Signs (last 24 hours): Temp Pulse Resp BP Pulse Ox 99.1 F 94 H 20 144/86 96 08/05/17 16:00 08/05/17 16:00 08/05/17 16:00 08/05/17 16:00 08/05/17 16:00 Intake and Output: 08/05/17 08/06/17 18:59 06:59 Intake Total 550 Balance 550 - Medications Medications: Current Medications Amlodipine Besylate (Norvasc) 10 mg PO DAILY [facility] Last Admin: 08/05/17 10:39 Dose: 10 mg Calcitriol (Rocaltrol) 0.25 mcg PO TTS [facility] Last Admin: 08/05/17 10:39 Dose: 0.25 mcg Dolutegravir Sodium (Tivicay) 50 mg PO DAILY [facility] PRN Reason: Protocol Last Admin: 08/05/17 10:49 Dose: Not Given Epoetin Anival (Procrit) 20,000 unit SC TTS [facility] Last Admin: 08/05/17 13:42 Dose: 20,000 unit Ferric Sodium Gluconate Complex (Ferrlecit) 125 mg IVPB DAILY [facility] Stop: 08/10/17 10:01 Last Admin: 08/05/17 10:39 Dose: 125 mg Cefepime HCl 1 gm/ Dextrose 50 mls @ 100 mls/hr IVPB DAILY [facility] PRN Reason: Protocol Last Admin: 08/05/17 10:39 Dose: 100 mls/hr Vancomycin/Sodium Chloride (Vancomycin 1 Gm/Ns 200 Ml) 1 gm in 200 mls @ 133.333 mls/hr IVPB Q48H [facility] PRN Reason: Protocol Last Admin: 08/04/17 14:46 Dose: 133.333 mls/hr Insulin Aspart (Novolog) 16 unit SC BID [facility] Last Admin: 08/05/17 18:00 Dose: Not Given Insulin Glargine (Lantus) 16 unit SC HS [facility] Last Admin: 08/04/17 22:52 Dose: Not Given Insulin Human Regular (Novolin R) 0 unit SC ACHS [facility] PRN Reason: Protocol Last Admin: 08/05/17 16:30 Dose: Not Given Labetalol HCl (Normodyne) 300 mg PO Q8H [facility] Last Admin: 08/05/17 15:53 Dose: 300 mg Morphine Sulfate (Morphine) 2 mg IV Q4 PRN PRN Reason: Pain, severe (8-10) Last Admin: 08/05/17 15:51 Dose: 2 mg Ondansetron HCl (Zofran Inj) 4 mg IVP Q6H PRN PRN Reason: Nausea/Vomiting Last Admin: 08/05/17 05:03 Dose: 4 mg Saccharomyces Boulardii (Florastor) 250 mg PO BID [facility] Last Admin: 08/05/17 10:40 Dose: 250 mg Sertraline HCl (Zoloft) 50 mg PO DAILY [facility] Last Admin: 08/05/17 10:39 Dose: 50 mg Sodium Bicarbonate (Sodium Bicarbonate Tab) 650 mg PO Q8 [facility] Last Admin: 08/05/17 14:18 Dose: 650 mg Sodium Hypochlorite (Dakins Solution 0.125%) 0 appl TOP DAILY [facility] Last Admin: 08/05/17 10:40 Dose: 20 appl Vitamin B Complex/Vit C/Folic Acid (Nephro-Rosario) 1 tab PO 0800 [facility] Last Admin: 08/05/17 08:07 Dose: 1 tab - Labs Labs: 08/05/17 07:13 08/05/17 07:13 PT 14.4 SECONDS (9.7-12.2) H 08/05/17 14:01 INR 1.3 08/05/17 14:01 APTT 34 SECONDS (21-34) 08/05/17 14:01 - Constitutional Appears: Non-toxic, Chronically Ill - Head Exam Head Exam: NORMOCEPHALIC - Eye Exam Eye Exam: PERRL - ENT Exam ENT Exam: Mucous Membranes Dry - Neck Exam Neck Exam: absent: Lymphadenopathy - Respiratory Exam Respiratory Exam: Decreased Breath Sounds - Cardiovascular Exam Cardiovascular Exam: REGULAR RHYTHM - GI/Abdominal Exam GI & Abdominal Exam: Distended Assessment and Plan (1) Anemia Status: Acute (2) Chronic ulcer of left leg Status: Chronic (3) HIV disease Status: Chronic (4) GAEL (acute kidney injury) Status: Acute (5) Abscess and cellulitis Status: Acute
[2017-08-05] MEDS: (Lantus) Insulin Glargine, Recombinant SC SCH (21:57)
[2017-08-06] MEDS: Labetalol Hydrochloride 300 mg Tab PO SCH ×4 (00:04→17:05)
--- NOTE | 2017-08-06 03:20 | PN ---
DATE: 08/05/2017 LOCATION: The patient is located in room 570, Bed A. REQUESTED BY: Art Nathan MD REASON FOR FOLLOWUP: Acute renal failure, hyperkalemia, chronic kidney disease, metabolic acidosis. HISTORY OF PRESENT ILLNESS: Mrs. Johnson is a 36-year-old young transgender female with hypertension, diabetes, noncompliance with medication, HIV positive, Charcot's foot, osteomyelitis of the left foot, nephrotic range proteinuria, anemia, metabolic acidosis, hyperkalemia secondary to hyperparathyroidism, worsening renal function who was admitted with left foot infection with noncompliance of IV antibiotics. The patient was not able to get IV antibiotics since discharged from the hospital last admission. The patient is also noncompliant with diet. Denies any complaints. Denies any shortness of breath. Denies any chest pain or palpitations. Denies any fever or cough. PHYSICAL EXAMINATION: VITAL SIGNS: As follows, this morning, blood pressure 135/81, pulse 94, respirations 20, temperature 98.5, saturation 97%. Height 6 feet 3 inches and weight is 280 pounds. GENERAL: Mrs. Johnson is a 36-year-old young transgender female, well built, well nourished, not in distress. Appears externally male. HEENT: Pupils are normal and reactive to accommodation. Conjunctivae pink. Sclerae anicteric. Tongue is moist. Trachea is midline. LUNGS: Symmetry on both sides. Bilateral breath sounds present. Clear to auscultation. CVS: [place] at the fifth intercostal space, midclavicular line. S1 and S2 audible. No murmur or gallop. ABDOMEN: Normal in appearance. Soft. Tympanic. No guarding. No rigidity. No hepatosplenomegaly. [employer]: The patient is alert, awake, and oriented x3. Nonfocal neuro examination. Cranial nerves II through XII grossly intact. Sensory and motor system is within normal limits. EXTREMITIES: No cyanosis, no clubbing, no edema on the right leg. The patient has a swelling of the left leg below the knee joint and also the patient has dressing to the right foot. CURRENT MEDICATIONS: Include as follows, cefepime 1 gm daily, Ferrlecit 125 mg daily, Florastor 250 mg p.o. b.i.d., Lantus 16 units subcu at bedtime, morphine sulfate 2 mg IV every 4 hours, Nephro-Benjamin one tablet daily, labetalol 300 mg p.o. every 8 hours, Norvasc 10 mg, Novolin R for sliding scale, NovoLog 16 units subcu b.i.d., Procrit 20,000 units three times a weeks, Rocaltrol 0.25 mcg three times a week, sodium bicarbonate 650 every 8 hours, Tivicay 50 mg daily, vancomycin 1 gm every 48 hours, Zofran 4 mg IV every 6 hours, Zoloft 50 mg p.o. daily, and Kayexalate 30 gm p.o. x1 dose this morning. LABORATORY DATA: Include as follows, as of 08/05/2017, WBC 13.9, hemoglobin 8, hematocrit 23.9, platelets 469. Sodium 137, potassium 5.6, chloride 105, CO2 of 21, BUN 41, creatinine 4.1, glucose 141, calcium 8.9, total bilirubin 0.6. AST 45, ALT 23, alkaline phosphatase 219, total protein 8.7, albumin 2.9. Stool for occult blood is 92. Serum immunofixation ____ lambda is present. dense follicular background while this may represent reactive or inflammatory process, developing plasma cell disorder cannot be excluded. Clinical correlation is suggested and if indicated repeat immunofixation testing in 3 to 6 months. [place]/Lambda ratio is 2.14 and kappa light chain is 885 and lambda light chain is 414. IMPRESSION: In summary, Mrs. Johnson is a 36-year-old young transgender female with hypertension, diabetes, human immunodeficiency virus positive, noncompliance with medication, Charcot's foot, osteomyelitis of the left foot, proteinuria, anemia, secondary hyperparathyroidism, metabolic acidosis, hyperkalemia, worsening renal function. ASSESSMENT: 1. Acute renal failure on chronic kidney disease versus progression of the chronic kidney disease, rule out diabetic nephropathy, rule out chronic glomerulonephritis, rule out multiple myeloma. 2. Anemia, secondary to iron deficiency and chronic kidney disease, cannot rule out multiple myeloma. 3. Hypertension. 4. Diabetes. 5. Secondary hyperparathyroidism. 6. Metabolic acidosis. 7. Hyperkalemia secondary to renal failure and noncompliance of the diet. 8 Agree with Kayexalate 30 gm p.o. x1 dose. Repeat potassium in a.m. Now the patient is agreeing for the left foot surgery, possible TMA. 9. Continue antihypertensive medication. 10. Continue using Epogen, Nephro-benjamin, and sodium bicarbonate. The patient is stable from the renal standpoint for surgery. Thank you for allowing me to participate in our patient's care. Follow up with Dr. Alanna Nathan for cardiology clearance and medical clearance and discussed with nurse practitioner in rounds. Weston Brambila MD
[2017-08-06 06:02] LABS: BASO # 0.1 K/uL (0.0-0.2); BASO % 0.4 % (0.0-2.0); EOS # 0.4 K/uL (0.0-0.7); EOS % 3.1 % (0.0-4.0); HEMOGLOBIN 7.4 g/dL (11.0-16.0); LYMPH % 20.7 % (20.0-40.0); MEAN CELL VOLUME 86.9 fL (81.0-99.0); MEAN CORPUSCULAR HEMOGLOBIN 28.1 pg (27.0-31.0); MEAN CORPUSCULAR HGB CONC 32.3 g/dL (33.0-37.0); MEAN PLATELET VOLUME 6.2 fL (7.2-11.7); MONO # 1.8 K/uL (0.0-0.8); MONO % 12.7 % (0.0-10.0); NEUT % 63.1 % (50.0-75.0); NRBC % 0.1 % (0.0-2.0); RBC 2.63 Mil/uL (3.80-5.20); WHITE BLOOD COUNT 14.2 K/uL (4.8-10.8)
[2017-08-06 06:15] LABS: ALB/GLOB RATIO 0.5 (1.0-2.1); ALBUMIN 2.8 g/dL (3.5-5.0); CALCIUM 8.7 mg/dl (8.6-10.4)
[2017-08-06] MEDS: (Novolin R) Insulin Human Regular 100 units/ml vial SC SCH ×4 (07:19→22:05)
[2017-08-06] MEDS: Multivitamin Vitamin B Complex (Nephro-Vite) Tab PO SCH (07:22)
[2017-08-06] MEDS ORDERED: Propofol 10 mg/ml Inj (20 ML) ONE ×3 (07:40→09:01)
[2017-08-06] MEDS ORDERED: Midazolam 2 MG/2 ML VIAL ONE ×2 (07:40→07:57)
[2017-08-06] MEDS: Lidocaine 2% MPF (5 ml) Inj ONE ×4 (08:09→08:33)
[2017-08-06] MEDS: Bupivacaine HCl 0.5% PF (30 ml) Inj ONE ×2 (08:09→08:32)
[2017-08-06] MEDS ORDERED: Lactated Ringer's 500 ML IV ONE (09:58)
--- NOTE | 2017-08-06 09:58 | PCM.SURG1 ---
Surgeon's Initial Post Op Note - Surgeon's Notes Surgeon: Dr. Coy, DPM Dough Braker: Jose Brand PGY1 Type of Anesthesia: IV Sedation, Local (30cc 1:1 mixture 2% lidocaine plain & 0.5% marcaine plain) Anesthesia Administered By: Dr. Starkey Pre-Operative Diagnosis: left foot non-healing infected diabetic ulceration with abscess formation and underlying osteomyelitis Operative Findings: See dictation. Materials: 2-0 vicryl, 3-0 vicryl, 3-0 nylon , 1/2" iodoform Post-Operative Diagnosis: Same Operation Performed: Left foot forefoot amputation Specimen/Specimens Removed: 1) left foot abscess wound culture #1. 2) left foot abscess wound culture #2. 3) left forefoot Estimated Blood Loss: EBL {In ML}: 15 Blood Products Given: N/A Post-Op Condition: Good Date of Surgery/Procedure: 08/06/17 Time of Surgery/Procedure: 10:00
[2017-08-06] MEDS: Ferric Sodium Gluconat Complex 62.5 mg/5 ml Vial IVPB SCH (10:18)
[2017-08-06] MEDS: Saccharomyces Boulardi 250 mg Cap PO SCH ×2 (10:18→17:05)
[2017-08-06] MEDS: (Novolog) Insulin Aspart, Recombinant 100 u/ml 10 ml vial SC SCH ×2 (10:19→17:20)
[2017-08-06] MEDS ORDERED: Morphine 4 MG/ML VIAL ONE (10:28)
--- NOTE | 2017-08-06 10:33 | RAD ---
PROCEDURE: Left Foot Radiographs. HISTORY: S/P LEFT FOREFOOT AMPUTATION COMPARISON: None. FINDINGS: BONES: S/p midfoot amputation. Irregular soft tissue with subcutaneous gas at the level of the amputation, consistent with recent surgical change. No acute fracture. JOINTS: Normal. SOFT TISSUES: Normal. OTHER FINDINGS: None. IMPRESSION: Midfoot amputation.
--- NOTE | 2017-08-06 11:33 | CP.PCM.PN ---
Subjective - Date & Time of Evaluation Date of Evaluation: 08/06/17 Time of Evaluation: 11:31 - Subjective Subjective: PT WENT FOR OR AMPUTATION OF TOE. SEPTIC CRF ANEMIA OF [facility] INF. DM HTN. Objective - Vital Signs/Intake and Output Vital Signs (last 24 hours): Temp Pulse Resp BP Pulse Ox 99.5 F 90 20 154/89 H 97 08/06/17 06:39 08/06/17 06:39 08/06/17 06:39 08/06/17 06:39 08/05/17 23:55 Intake and Output: 08/06/17 08/06/17 06:59 18:59 Intake Total 500 Output Total 1000 Balance -1000 500 - Medications Medications: Current Medications Amlodipine Besylate (Norvasc) 10 mg PO DAILY [facility] Last Admin: 08/06/17 10:19 Dose: Not Given Calcitriol (Rocaltrol) 0.25 mcg PO TTS [facility] Last Admin: 08/05/17 10:39 Dose: 0.25 mcg Dolutegravir Sodium (Tivicay) 50 mg PO DAILY [facility] PRN Reason: Protocol Last Admin: 08/06/17 10:19 Dose: Not Given Epoetin Anival (Procrit) 20,000 unit SC TTS [facility] Last Admin: 08/05/17 13:42 Dose: 20,000 unit Ferric Sodium Gluconate Complex (Ferrlecit) 125 mg IVPB DAILY [facility] Stop: 08/10/17 10:01 Last Admin: 08/06/17 10:18 Dose: Not Given Cefepime HCl 1 gm/ Dextrose 50 mls @ 100 mls/hr IVPB DAILY [facility] PRN Reason: Protocol Last Admin: 08/06/17 08:13 Dose: 50 mls Vancomycin/Sodium Chloride (Vancomycin 1 Gm/Ns 200 Ml) 1 gm in 200 mls @ 133.333 mls/hr IVPB Q48H [facility] PRN Reason: Protocol Last Admin: 08/04/17 14:46 Dose: 133.333 mls/hr Insulin Aspart (Novolog) 16 unit SC BID [facility] Last Admin: 08/06/17 10:19 Dose: Not Given Insulin Glargine (Lantus) 16 unit SC HS [facility] Last Admin: 08/05/17 21:57 Dose: Not Given Insulin Human Regular (Novolin R) 0 unit SC ACHS [facility] PRN Reason: Protocol Last Admin: 08/06/17 07:19 Dose: Not Given Labetalol HCl (Normodyne) 300 mg PO Q8H [facility] Last Admin: 08/06/17 07:22 Dose: Not Given Morphine Sulfate (Morphine) 2 mg IV Q4 PRN PRN Reason: Pain, severe (8-10) Last Admin: 08/06/17 05:57 Dose: 2 mg Ondansetron HCl (Zofran Inj) 4 mg IVP Q6H PRN PRN Reason: Nausea/Vomiting Last Admin: 08/05/17 05:03 Dose: 4 mg Saccharomyces Boulardii (Florastor) 250 mg PO BID [facility] Last Admin: 08/06/17 10:18 Dose: Not Given Sertraline HCl (Zoloft) 50 mg PO DAILY [facility] Last Admin: 08/06/17 10:19 Dose: Not Given Sodium Bicarbonate (Sodium Bicarbonate Tab) 650 mg PO Q8 [facility] Last Admin: 08/06/17 06:40 Dose: 650 mg Sodium Hypochlorite (Dakins Solution 0.125%) 0 appl TOP DAILY [facility] Last Admin: 08/06/17 10:18 Dose: Not Given Vitamin B Complex/Vit C/Folic Acid (Nephro-Rosario) 1 tab PO 0800 [facility] Last Admin: 08/06/17 07:22 Dose: Not Given - Labs Labs: 08/06/17 05:58 08/06/17 05:58 PT 14.4 SECONDS (9.7-12.2) H 08/05/17 14:01 INR 1.3 08/05/17 14:01 APTT 34 SECONDS (21-34) 08/05/17 14:01 - Constitutional Appears: No Acute Distress, Chronically Ill - Eye Exam Eye Exam: EOMI, Normal appearance, PERRL Pupil Exam: NORMAL ACCOMODATION, PERRL - ENT Exam ENT Exam: Mucous Membranes Moist, Normal Exam - Neck Exam Neck Exam: Full ROM, Normal Inspection. absent: Lymphadenopathy - Respiratory Exam Respiratory Exam: Clear to Ausculation Bilateral, NORMAL BREATHING PATTERN - Cardiovascular Exam Cardiovascular Exam: REGULAR RHYTHM, +S1, +S2. absent: Murmur - GI/Abdominal Exam GI & Abdominal Exam: Soft, Normal Bowel Sounds. absent: Tenderness - Back Exam Back Exam: NORMAL INSPECTION - Neurological Exam Neurological Exam: Alert, Awake, CN II-XII Intact, Normal Gait, Oriented x3 Assessment and Plan - Assessment and Plan (Free Text) Assessment: OM LT FOOT WITH SEPSIS. ANEMIA. Plan: PER DR. REYES. AND DR. MCKEON. IV ABTS.
--- NOTE | 2017-08-06 11:51 | CP.PCM.PN ---
Subjective - Date & Time of Evaluation Date of Evaluation: 08/06/17 Time of Evaluation: 11:50 - Subjective Subjective: pt is seen and examined, follow up consult is dictated #[id number] s/p surgery , Objective - Vital Signs/Intake and Output Vital Signs (last 24 hours): Temp Pulse Resp BP Pulse Ox 97.1 F L 67 73 H 111/54 L 96 08/06/17 11:00 08/06/17 11:00 08/06/17 11:00 08/06/17 11:00 08/06/17 11:00 Intake and Output: 08/06/17 08/06/17 06:59 18:59 Intake Total 500 Output Total 1000 Balance -1000 500 - Medications Medications: Current Medications Amlodipine Besylate (Norvasc) 10 mg PO DAILY [facility] Last Admin: 08/06/17 10:19 Dose: Not Given Calcitriol (Rocaltrol) 0.25 mcg PO TTS [facility] Last Admin: 08/05/17 10:39 Dose: 0.25 mcg Dolutegravir Sodium (Tivicay) 50 mg PO DAILY [facility] PRN Reason: Protocol Last Admin: 08/06/17 10:19 Dose: Not Given Epoetin Anival (Procrit) 20,000 unit SC TTS [facility] Last Admin: 08/05/17 13:42 Dose: 20,000 unit Ferric Sodium Gluconate Complex (Ferrlecit) 125 mg IVPB DAILY [facility] Stop: 08/10/17 10:01 Last Admin: 08/06/17 10:18 Dose: Not Given Cefepime HCl 1 gm/ Dextrose 50 mls @ 100 mls/hr IVPB DAILY [facility] PRN Reason: Protocol Last Admin: 08/06/17 08:13 Dose: 50 mls Vancomycin/Sodium Chloride (Vancomycin 1 Gm/Ns 200 Ml) 1 gm in 200 mls @ 133.333 mls/hr IVPB Q48H [facility] PRN Reason: Protocol Last Admin: 08/04/17 14:46 Dose: 133.333 mls/hr Insulin Aspart (Novolog) 16 unit SC BID [facility] Last Admin: 08/06/17 10:19 Dose: Not Given Insulin Glargine (Lantus) 16 unit SC HS [facility] Last Admin: 08/05/17 21:57 Dose: Not Given Insulin Human Regular (Novolin R) 0 unit SC ACHS [facility] PRN Reason: Protocol Last Admin: 08/06/17 07:19 Dose: Not Given Labetalol HCl (Normodyne) 300 mg PO Q8H [facility] Last Admin: 08/06/17 07:22 Dose: Not Given Morphine Sulfate (Morphine) 2 mg IV Q4 PRN PRN Reason: Pain, severe (8-10) Last Admin: 08/06/17 05:57 Dose: 2 mg Ondansetron HCl (Zofran Inj) 4 mg IVP Q6H PRN PRN Reason: Nausea/Vomiting Last Admin: 08/05/17 05:03 Dose: 4 mg Saccharomyces Boulardii (Florastor) 250 mg PO BID [facility] Last Admin: 08/06/17 10:18 Dose: Not Given Sertraline HCl (Zoloft) 50 mg PO DAILY [facility] Last Admin: 08/06/17 10:19 Dose: Not Given Sodium Bicarbonate (Sodium Bicarbonate Tab) 650 mg PO Q8 [facility] Last Admin: 08/06/17 06:40 Dose: 650 mg Sodium Hypochlorite (Dakins Solution 0.125%) 0 appl TOP DAILY [facility] Last Admin: 08/06/17 10:18 Dose: Not Given Vitamin B Complex/Vit C/Folic Acid (Nephro-Rosario) 1 tab PO 0800 [facility] Last Admin: 08/06/17 07:22 Dose: Not Given - Labs Labs: 08/06/17 05:58 08/06/17 05:58 PT 14.4 SECONDS (9.7-12.2) H 08/05/17 14:01 INR 1.3 08/05/17 14:01 APTT 34 SECONDS (21-34) 08/05/17 14:01
[2017-08-06] MEDS: Vancomycin 1 gm/NS 200 ml 1 GM/200 ML BAG IVPB SCH (13:48)
--- NOTE | 2017-08-06 18:04 | CP.PCM.PN ---
Subjective - Date & Time of Evaluation Date of Evaluation: 08/06/17 Time of Evaluation: 08:00 - Subjective Subjective: afeb c/o pain iv rx renewed Objective - Vital Signs/Intake and Output Vital Signs (last 24 hours): Temp Pulse Resp BP Pulse Ox 99.2 F 100 H 20 165/95 H 98 08/06/17 15:00 08/06/17 15:00 08/06/17 15:00 08/06/17 15:00 08/06/17 15:00 Intake and Output: 08/06/17 08/06/17 06:59 18:59 Intake Total 1100 Output Total 1000 500 Balance -1000 600 - Medications Medications: Current Medications Acetaminophen (Tylenol 325mg Tab) 650 mg PO ONCE PRN PRN Reason: Fever >100.4 F Amlodipine Besylate (Norvasc) 10 mg PO DAILY [facility] Last Admin: 08/06/17 10:19 Dose: Not Given Calcitriol (Rocaltrol) 0.25 mcg PO TTS [facility] Last Admin: 08/05/17 10:39 Dose: 0.25 mcg Dolutegravir Sodium (Tivicay) 50 mg PO DAILY [facility] PRN Reason: Protocol Last Admin: 08/06/17 10:19 Dose: Not Given Epoetin Anival (Procrit) 20,000 unit SC TTS [facility] Last Admin: 08/05/17 13:42 Dose: 20,000 unit Ferric Sodium Gluconate Complex (Ferrlecit) 125 mg IVPB DAILY [facility] Stop: 08/10/17 10:01 Last Admin: 08/06/17 10:18 Dose: Not Given Heparin Sodium (Porcine) (Heparin) 5,000 units SC Q12H [facility] Cefepime HCl 1 gm/ Dextrose 50 mls @ 100 mls/hr IVPB DAILY [facility] PRN Reason: Protocol Last Admin: 08/06/17 08:13 Dose: 50 mls Vancomycin/Sodium Chloride (Vancomycin 1 Gm/Ns 200 Ml) 1 gm in 200 mls @ 133.333 mls/hr IVPB Q48H [facility] PRN Reason: Protocol Last Admin: 08/06/17 13:48 Dose: 133.333 mls/hr Insulin Aspart (Novolog) 16 unit SC BID [facility] Last Admin: 08/06/17 17:20 Dose: Not Given Insulin Glargine (Lantus) 16 unit SC HS [facility] Last Admin: 08/05/17 21:57 Dose: Not Given Insulin Human Regular (Novolin R) 0 unit SC ACHS [facility] PRN Reason: Protocol Last Admin: 08/06/17 17:20 Dose: Not Given Labetalol HCl (Normodyne) 300 mg PO Q8H [facility] Last Admin: 08/06/17 17:05 Dose: 300 mg Morphine Sulfate (Morphine) 2 mg IV Q4 PRN PRN Reason: Pain, severe (8-10) Last Admin: 08/06/17 17:50 Dose: 2 mg Ondansetron HCl (Zofran Inj) 4 mg IVP Q6H PRN PRN Reason: Nausea/Vomiting Last Admin: 08/05/17 05:03 Dose: 4 mg Saccharomyces Boulardii (Florastor) 250 mg PO BID [facility] Last Admin: 08/06/17 17:05 Dose: 250 mg Sertraline HCl (Zoloft) 50 mg PO DAILY [facility] Last Admin: 08/06/17 10:19 Dose: Not Given Sodium Bicarbonate (Sodium Bicarbonate Tab) 650 mg PO Q8 [facility] Last Admin: 08/06/17 13:48 Dose: 650 mg Sodium Hypochlorite (Dakins Solution 0.125%) 0 appl TOP DAILY [facility] Last Admin: 08/06/17 10:18 Dose: Not Given Vitamin B Complex/Vit C/Folic Acid (Nephro-Rosario) 1 tab PO 0800 [facility] Last Admin: 08/06/17 07:22 Dose: Not Given - Labs Labs: 08/06/17 05:58 08/06/17 05:58 PT 14.4 SECONDS (9.7-12.2) H 08/05/17 14:01 INR 1.3 08/05/17 14:01 APTT 34 SECONDS (21-34) 08/05/17 14:01 - Constitutional Appears: Non-toxic, Chronically Ill - Head Exam Head Exam: NORMOCEPHALIC - Eye Exam Eye Exam: PERRL - ENT Exam ENT Exam: Mucous Membranes Dry - Neck Exam Neck Exam: absent: Lymphadenopathy - Respiratory Exam Respiratory Exam: Decreased Breath Sounds - Cardiovascular Exam Cardiovascular Exam: REGULAR RHYTHM - GI/Abdominal Exam GI & Abdominal Exam: Distended Assessment and Plan (1) Anemia Status: Acute (2) Chronic ulcer of left leg Status: Chronic (3) HIV disease Status: Chronic (4) GAEL (acute kidney injury) Status: Acute (5) Abscess and cellulitis Status: Acute
--- NOTE | 2017-08-06 21:46 | CP.PCM.PN ---
Subjective - Date & Time of Evaluation Date of Evaluation: 08/06/17 Time of Evaluation: 12:25 - Subjective Subjective: Has foot pain s/p amputation Objective - Vital Signs/Intake and Output Vital Signs (last 24 hours): Temp Pulse Resp BP Pulse Ox 99.2 F 100 H 20 165/95 H 98 08/06/17 15:00 08/06/17 15:00 08/06/17 15:00 08/06/17 15:00 08/06/17 15:00 Intake and Output: 08/06/17 08/07/17 18:59 06:59 Intake Total 1100 500 Output Total 500 Balance 600 500 - Medications Medications: Current Medications Acetaminophen (Tylenol 325mg Tab) 650 mg PO ONCE PRN PRN Reason: Fever >100.4 F Amlodipine Besylate (Norvasc) 10 mg PO DAILY [facility] Last Admin: 08/06/17 10:19 Dose: Not Given Calcitriol (Rocaltrol) 0.25 mcg PO TTS [facility] Last Admin: 08/05/17 10:39 Dose: 0.25 mcg Dolutegravir Sodium (Tivicay) 50 mg PO DAILY [facility] PRN Reason: Protocol Last Admin: 08/06/17 10:19 Dose: Not Given Epoetin Anival (Procrit) 20,000 unit SC TTS [facility] Last Admin: 08/05/17 13:42 Dose: 20,000 unit Ferric Sodium Gluconate Complex (Ferrlecit) 125 mg IVPB DAILY [facility] Stop: 08/10/17 10:01 Last Admin: 08/06/17 10:18 Dose: Not Given Heparin Sodium (Porcine) (Heparin) 5,000 units SC Q12H [facility] Cefepime HCl 1 gm/ Dextrose 50 mls @ 100 mls/hr IVPB DAILY [facility] PRN Reason: Protocol Last Admin: 08/06/17 08:13 Dose: 50 mls Vancomycin/Sodium Chloride (Vancomycin 1 Gm/Ns 200 Ml) 1 gm in 200 mls @ 133.333 mls/hr IVPB Q48H [facility] PRN Reason: Protocol Last Admin: 08/06/17 13:48 Dose: 133.333 mls/hr Insulin Aspart (Novolog) 16 unit SC BID [facility] Last Admin: 08/06/17 17:20 Dose: Not Given Insulin Glargine (Lantus) 16 unit SC HS [facility] Last Admin: 08/05/17 21:57 Dose: Not Given Insulin Human Regular (Novolin R) 0 unit SC ACHS [facility] PRN Reason: Protocol Last Admin: 08/06/17 17:20 Dose: Not Given Labetalol HCl (Normodyne) 300 mg PO Q8H [facility] Last Admin: 08/06/17 17:05 Dose: 300 mg Morphine Sulfate (Morphine) 2 mg IV Q4 PRN PRN Reason: Pain, severe (8-10) Last Admin: 08/06/17 17:50 Dose: 2 mg Ondansetron HCl (Zofran Inj) 4 mg IVP Q6H PRN PRN Reason: Nausea/Vomiting Last Admin: 08/06/17 19:22 Dose: 4 mg Saccharomyces Boulardii (Florastor) 250 mg PO BID [facility] Last Admin: 08/06/17 17:05 Dose: 250 mg Sertraline HCl (Zoloft) 50 mg PO DAILY [facility] Last Admin: 08/06/17 10:19 Dose: Not Given Sodium Bicarbonate (Sodium Bicarbonate Tab) 650 mg PO Q8 [facility] Last Admin: 08/06/17 13:48 Dose: 650 mg Sodium Hypochlorite (Dakins Solution 0.125%) 0 appl TOP DAILY [facility] Last Admin: 08/06/17 10:18 Dose: Not Given Vitamin B Complex/Vit C/Folic Acid (Nephro-Rosario) 1 tab PO 0800 [facility] Last Admin: 08/06/17 07:22 Dose: Not Given - Labs Labs: 08/06/17 05:58 08/06/17 05:58 PT 14.4 SECONDS (9.7-12.2) H 08/05/17 14:01 INR 1.3 08/05/17 14:01 APTT 34 SECONDS (21-34) 08/05/17 14:01 - Head Exam Head Exam: ATRAUMATIC - Eye Exam Eye Exam: Normal appearance - ENT Exam ENT Exam: Mucous Membranes Dry - Respiratory Exam Respiratory Exam: NORMAL BREATHING PATTERN - Cardiovascular Exam Cardiovascular Exam: +S1, +S2 - GI/Abdominal Exam GI & Abdominal Exam: Normal Bowel Sounds Assessment and Plan (1) Anemia Assessment & Plan: multifactorial anemia of chronic disease from osteomyelitis anemia of CKD anemia of HIV on KIT to decrease transfusion requirements. Status: Acute (2) Monoclonal gammopathy Assessment & Plan: + monoclonal protein detected in urine abnormal free light chain ratio skeletal survey to evaluate for lytic lesions possible bone marrow +/- kidney biopsy Status: Acute
[2017-08-06] MEDS: (Lantus) Insulin Glargine, Recombinant SC SCH (22:14)
[2017-08-07] MEDS: Labetalol Hydrochloride 300 mg Tab PO SCH ×3 (00:19→16:29)
--- NOTE | 2017-08-07 00:34 | PN ---
DATE: 08/06/2017 FOLLOWUP RENAL CONSULTATION LOCATION: The patient is located in room 570, Bed A. REQUESTED BY: Art Nathan MD REASON FOR CONSULTATION: Acute renal failure, chronic kidney disease. HISTORY OF PRESENT ILLNESS: Mrs. Johnson is a 36-year-old young transgender female with a past medical history significant for longstanding hypertension, diabetes, nephrotic range proteinuria, chronic kidney disease, anemia, hyperkalemia, metabolic acidosis, secondary hyperparathyroidism, HIV positive, noncompliance with medications who was admitted with worsening left foot infection and noncompliance with IV antibiotics. The patient is not in acute distress. The patient underwent left foot surgery this morning, status post forefoot amputation as per the Podiatry this morning. The patient is not in acute distress. PHYSICAL EXAMINATION: VITAL SIGNS: As follows, blood pressure 109/68, pulse 72, respirations 15, temperature 97.1, saturation 97%, height 6 feet 3 inches, and weight is 280 pounds, saturation 97%. GENERAL: Mrs. Johnson is 36 years old young transgender female, well-built, well-nourished, looks male external appearance. HEENT: Pupils normal and reactive to light and accommodation. Conjunctivae pink. Sclerae anicteric. Tongue is moist. Trachea is midline. LUNGS: Symmetric on both sides. Bilateral breath sounds present. Clear to auscultation. CVS: [place] at the fifth intercostal space, midclavicular line. S1, S2 audible. No murmur or gallop. ABDOMEN: Normal in appearance, soft, tympanic. No guarding. No rigidity. No hepatosplenomegaly. 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 Nonfocal neuro examination. Cranial nerves II through XII grossly intact. Sensory and motor system is within normal limits. EXTREMITIES: No cyanosis, no clubbing, no edema on the right leg. The patient has a dressing to the left foot, status post forefoot amputation. MEDICATIONS: Include as follows: Cefepime 1 gm daily, Ferrlecit 125 mg IV daily, Florastor 250 mg p.o. b.i.d., subcu heparin 5000 every 12 hours, Lantus 16 units subcu at bedtime, morphine 2 mg IV every 4 hours p.r.n., Nephro-Rosario 1 tablet daily, labetalol 300 mg p.o. every 8 hours, Norvasc 10 mg daily, Novolin R for sliding scale, NovoLog 16 units subcu b.i.d., Procrit 20,000 units three times a week, Rocaltrol 0.25 mcg p.o. three times a week, sodium bicarb 650 mg p.o. every 8 hours, Tivicay 50 mg p.o. daily, Tylenol, vancomycin, Zofran, and also Zoloft. LABORATORY DATA: Include as follows, as of 08/06/2017, WBC 14.2, hemoglobin 7.4, hematocrit is 22.9, platelets 456. Sodium 138, potassium 4.7, chloride 105, CO2 of 23, BUN of 38, creatinine 4.3, glucose 103, calcium 8.7. Total bili 0.5, AST 32, ALT 23, alkaline phosphatase 206, total protein 8.5, albumin is 2.8. Serum immunofixation lambda is present dense follicular background. [place]/Lambda ratio is 2.22. IMPRESSION: In summary, Mrs. Johnson is a 36 years old young transgender female with hypertension, diabetes, proteinuria, renal failure, anemia, secondary hyperparathyroidism, metabolic acidosis, hyperkalemia, human immunodeficiency virus, noncompliance with medications, Charcot's foot, osteomyelitis of the left foot, underwent forefoot amputation this morning. 1. Acute renal failure, chronic kidney disease versus progression of the chronic kidney disease secondary to chronic infection. 2. Anemia secondary to renal failure and iron deficiency. Cannot rule out human immunodeficiency virus, rule out multiple myeloma. 3. Hypertension. 4. Uncontrolled diabetes. 5. Charcot's foot with osteomyelitis, status post forefoot amputation this morning. Continue IV antibiotics as per ID recommendations. Continue to monitor BMP. Follow up with Hematology for further recommendation. Case discussed with Dr. Mcfarlane in rounds this morning. Thank you for allowing me to participate in your patient's care. Continue Procrit. Continue Nephro-Rosario, and also Rocaltrol, sodium bicarb, and Procrit. Weston Brambila MD
[2017-08-07 07:10] LABS: BASO # 0.1 K/uL (0.0-0.2); BASO % 0.7 % (0.0-2.0); EOS # 0.3 K/uL (0.0-0.7); EOS % 2.4 % (0.0-4.0); HEMOGLOBIN 6.6 g/dL (11.0-16.0); LYMPH % 21.2 % (20.0-40.0); MEAN CELL VOLUME 86.6 fL (81.0-99.0); MEAN CORPUSCULAR HEMOGLOBIN 28.7 pg (27.0-31.0); MEAN CORPUSCULAR HGB CONC 33.2 g/dL (33.0-37.0); MEAN PLATELET VOLUME 6.5 fL (7.2-11.7); MONO # 1.9 K/uL (0.0-0.8); MONO % 13.4 % (0.0-10.0); NEUT # 8.9 K/uL (1.8-7.0); NEUT % 62.3 % (50.0-75.0); NRBC % 0.1 % (0.0-2.0); RBC 2.3 Mil/uL (3.80-5.20); RED CELL DISTRIBUTION WIDTH 16.1 % (11.5-14.5); WHITE BLOOD COUNT 14.3 K/uL (4.8-10.8)
[2017-08-07 07:32] LABS: ALB/GLOB RATIO 0.5 (1.0-2.1); ALBUMIN 2.6 g/dL (3.5-5.0); CALCIUM 8.4 mg/dl (8.6-10.4)
[2017-08-07] MEDS: (Novolin R) Insulin Human Regular 100 units/ml vial SC SCH ×4 (08:28→22:03)
[2017-08-07] MEDS: Multivitamin Vitamin B Complex (Nephro-Vite) Tab PO SCH (09:00)
[2017-08-07] MEDS: Ferric Sodium Gluconat Complex 62.5 mg/5 ml Vial IVPB SCH (09:06)
[2017-08-07] MEDS: Saccharomyces Boulardi 250 mg Cap PO SCH ×2 (09:07→17:07)
[2017-08-07] MEDS: (Novolog) Insulin Aspart, Recombinant 100 u/ml 10 ml vial SC SCH ×2 (09:20→17:06)
--- NOTE | 2017-08-07 10:15 | CP.PCM.PN ---
Subjective - Date & Time of Evaluation Date of Evaluation: 08/07/17 Time of Evaluation: 10:13 - Subjective Subjective: AFEBRILE. LEG PAIN PRESENT. ANEMIA 6.6 LEUCOCYTOSIS. CRF. OM LEFT FOOT. TRANSMETA TARSAL AMP. Objective - Vital Signs/Intake and Output Vital Signs (last 24 hours): Temp Pulse Resp BP Pulse Ox 98.4 F 88 18 137/78 97 08/07/17 07:35 08/07/17 07:35 08/07/17 07:35 08/07/17 07:35 08/07/17 07:35 Intake and Output: 08/07/17 08/07/17 06:59 18:59 Intake Total 500 Balance 500 - Medications Medications: Current Medications Acetaminophen (Tylenol 325mg Tab) 650 mg PO ONCE PRN PRN Reason: Fever >100.4 F Amlodipine Besylate (Norvasc) 10 mg PO DAILY [facility] Last Admin: 08/07/17 09:07 Dose: 10 mg Calcitriol (Rocaltrol) 0.25 mcg PO TTS [facility] Last Admin: 08/07/17 09:27 Dose: 0.25 mcg Dolutegravir Sodium (Tivicay) 50 mg PO DAILY [facility] PRN Reason: Protocol Last Admin: 08/07/17 09:07 Dose: 50 mg Epoetin Anival (Procrit) 20,000 unit SC TTS [facility] Last Admin: 08/05/17 13:42 Dose: 20,000 unit Ferric Sodium Gluconate Complex (Ferrlecit) 125 mg IVPB DAILY [facility] Stop: 08/10/17 10:01 Last Admin: 08/07/17 09:06 Dose: 125 mg Heparin Sodium (Porcine) (Heparin) 5,000 units SC Q12H [facility] Last Admin: 08/07/17 09:07 Dose: 5,000 units Cefepime HCl 1 gm/ Dextrose 50 mls @ 100 mls/hr IVPB DAILY [facility] PRN Reason: Protocol Last Admin: 08/07/17 09:11 Dose: 100 mls/hr Vancomycin/Sodium Chloride (Vancomycin 1 Gm/Ns 200 Ml) 1 gm in 200 mls @ 133.333 mls/hr IVPB Q48H [facility] PRN Reason: Protocol Last Admin: 08/06/17 13:48 Dose: 133.333 mls/hr Insulin Aspart (Novolog) 16 unit SC BID [facility] Last Admin: 08/07/17 09:20 Dose: Not Given Insulin Glargine (Lantus) 16 unit SC HS [facility] Last Admin: 08/06/17 22:14 Dose: Not Given Insulin Human Regular (Novolin R) 0 unit SC ACHS [facility] PRN Reason: Protocol Last Admin: 08/07/17 08:28 Dose: Not Given Labetalol HCl (Normodyne) 300 mg PO Q8H [facility] Last Admin: 08/07/17 09:00 Dose: 300 mg Morphine Sulfate (Morphine) 2 mg IV Q4 PRN PRN Reason: Pain, severe (8-10) Last Admin: 08/07/17 06:14 Dose: 2 mg Ondansetron HCl (Zofran Inj) 4 mg IVP Q6H PRN PRN Reason: Nausea/Vomiting Last Admin: 08/06/17 19:22 Dose: 4 mg Saccharomyces Boulardii (Florastor) 250 mg PO BID [facility] Last Admin: 08/07/17 09:07 Dose: 250 mg Sertraline HCl (Zoloft) 50 mg PO DAILY [facility] Last Admin: 08/07/17 09:08 Dose: 50 mg Sodium Bicarbonate (Sodium Bicarbonate Tab) 650 mg PO Q8 [facility] Last Admin: 08/07/17 06:03 Dose: 650 mg Sodium Hypochlorite (Dakins Solution 0.125%) 0 appl TOP DAILY [facility] Last Admin: 08/06/17 10:18 Dose: Not Given Vitamin B Complex/Vit C/Folic Acid (Nephro-Rosario) 1 tab PO 0800 [facility] Last Admin: 08/07/17 09:00 Dose: 1 tab - Labs Labs: 08/07/17 07:00 08/07/17 07:00 PT 14.4 SECONDS (9.7-12.2) H 08/05/17 14:01 INR 1.3 08/05/17 14:01 APTT 34 SECONDS (21-34) 08/05/17 14:01 - Constitutional Appears: No Acute Distress, Chronically Ill - Eye Exam Eye Exam: EOMI, Normal appearance, PERRL Pupil Exam: NORMAL ACCOMODATION, PERRL - ENT Exam ENT Exam: Mucous Membranes Moist, Normal Exam - Neck Exam Neck Exam: Full ROM, Normal Inspection. absent: Lymphadenopathy - Respiratory Exam Respiratory Exam: Clear to Ausculation Bilateral, NORMAL BREATHING PATTERN - Cardiovascular Exam Cardiovascular Exam: REGULAR RHYTHM, +S1, +S2. absent: Murmur - GI/Abdominal Exam GI & Abdominal Exam: Soft, Normal Bowel Sounds. absent: Tenderness - Extremities Exam Extremities Exam: Full ROM, Normal Capillary Refill, Normal Inspection. absent : Joint Swelling, Pedal Edema - Neurological Exam Neurological Exam: Alert, Awake, CN II-XII Intact, Normal Gait, Oriented x3 - Psychiatric Exam Psychiatric exam: Normal Affect, Normal Mood Assessment and Plan - Assessment and Plan (Free Text) Assessment: ABOVE. Plan: CT PRESENT TREATMENT.
[2017-08-07] MEDS: Epoetin Alfa Dialysis 20000 UNIT/ML Inj SC SCH (10:22)
--- NOTE | 2017-08-07 13:06 | CP.PCM.PN ---
Subjective - Date & Time of Evaluation Date of Evaluation: 08/07/17 Time of Evaluation: 13:05 - Subjective Subjective: pt is seen and examined, follow up consult is dictated #[id number] consider transfusion Objective - Vital Signs/Intake and Output Vital Signs (last 24 hours): Temp Pulse Resp BP Pulse Ox 98.4 F 88 18 137/78 97 08/07/17 07:35 08/07/17 07:35 08/07/17 07:35 08/07/17 07:35 08/07/17 07:35 Intake and Output: 08/07/17 08/07/17 06:59 18:59 Intake Total 500 Balance 500 - Medications Medications: Current Medications Acetaminophen (Tylenol 325mg Tab) 650 mg PO ONCE PRN PRN Reason: Fever >100.4 F Amlodipine Besylate (Norvasc) 10 mg PO DAILY [facility] Last Admin: 08/07/17 09:07 Dose: 10 mg Calcitriol (Rocaltrol) 0.25 mcg PO TTS [facility] Last Admin: 08/07/17 09:27 Dose: 0.25 mcg Dolutegravir Sodium (Tivicay) 50 mg PO DAILY [facility] PRN Reason: Protocol Last Admin: 08/07/17 09:07 Dose: 50 mg Epoetin Anival (Procrit) 20,000 unit SC TTS [facility] Last Admin: 08/07/17 10:22 Dose: 20,000 unit Ferric Sodium Gluconate Complex (Ferrlecit) 125 mg IVPB DAILY [facility] Stop: 08/10/17 10:01 Last Admin: 08/07/17 09:06 Dose: 125 mg Heparin Sodium (Porcine) (Heparin) 5,000 units SC Q12H [facility] Last Admin: 08/07/17 09:07 Dose: 5,000 units Cefepime HCl 1 gm/ Dextrose 50 mls @ 100 mls/hr IVPB DAILY [facility] PRN Reason: Protocol Last Admin: 08/07/17 09:11 Dose: 100 mls/hr Vancomycin/Sodium Chloride (Vancomycin 1 Gm/Ns 200 Ml) 1 gm in 200 mls @ 133.333 mls/hr IVPB Q48H [facility] PRN Reason: Protocol Last Admin: 08/06/17 13:48 Dose: 133.333 mls/hr Insulin Aspart (Novolog) 16 unit SC BID [facility] Last Admin: 08/07/17 09:20 Dose: Not Given Insulin Glargine (Lantus) 16 unit SC HS [facility] Last Admin: 08/06/17 22:14 Dose: Not Given Insulin Human Regular (Novolin R) 0 unit SC ACHS [facility] PRN Reason: Protocol Last Admin: 08/07/17 12:16 Dose: Not Given Labetalol HCl (Normodyne) 300 mg PO Q8H [facility] Last Admin: 08/07/17 09:00 Dose: 300 mg Morphine Sulfate (Morphine) 2 mg IV Q4 PRN PRN Reason: Pain, severe (8-10) Last Admin: 08/07/17 10:17 Dose: 2 mg Ondansetron HCl (Zofran Inj) 4 mg IVP Q6H PRN PRN Reason: Nausea/Vomiting Last Admin: 08/06/17 19:22 Dose: 4 mg Saccharomyces Boulardii (Florastor) 250 mg PO BID [facility] Last Admin: 08/07/17 09:07 Dose: 250 mg Sertraline HCl (Zoloft) 50 mg PO DAILY [facility] Last Admin: 08/07/17 09:08 Dose: 50 mg Sodium Bicarbonate (Sodium Bicarbonate Tab) 650 mg PO Q8 [facility] Last Admin: 08/07/17 06:03 Dose: 650 mg Sodium Hypochlorite (Dakins Solution 0.125%) 0 appl TOP DAILY [facility] Last Admin: 08/07/17 10:24 Dose: Not Given Vitamin B Complex/Vit C/Folic Acid (Nephro-Rosario) 1 tab PO 0800 [facility] Last Admin: 08/07/17 09:00 Dose: 1 tab - Labs Labs: 08/07/17 07:00 08/07/17 07:00 PT 14.4 SECONDS (9.7-12.2) H 08/05/17 14:01 INR 1.3 08/05/17 14:01 APTT 34 SECONDS (21-34) 08/05/17 14:01
--- NOTE | 2017-08-07 15:52 | CP.PCM.PN ---
Subjective - Date & Time of Evaluation Date of Evaluation: 08/07/17 Time of Evaluation: 15:49 - Subjective Subjective: Podiatry Progress note for Dr. Coy 36 year old female seen at bedside 1 day s/p left foot Chopart's amputation. She is seen resting comfortably at bedside. Patient is AAOx3 and is in NAD. Denies of acute overnight events. Denies of putting any weight on the foot. Denies F/C/N/V/CP/SOB. Denies other pedal complains. Objective - Vital Signs/Intake and Output Vital Signs (last 24 hours): Temp Pulse Resp BP Pulse Ox 98.4 F 88 18 137/78 97 08/07/17 07:35 08/07/17 07:35 08/07/17 07:35 08/07/17 07:35 08/07/17 07:35 Intake and Output: 08/07/17 08/07/17 06:59 18:59 Intake Total 500 Balance 500 - Medications Medications: Current Medications Acetaminophen (Tylenol 325mg Tab) 650 mg PO ONCE PRN PRN Reason: Fever >100.4 F Amlodipine Besylate (Norvasc) 10 mg PO DAILY [facility] Last Admin: 08/07/17 09:07 Dose: 10 mg Calcitriol (Rocaltrol) 0.25 mcg PO TTS [facility] Last Admin: 08/07/17 09:27 Dose: 0.25 mcg Dolutegravir Sodium (Tivicay) 50 mg PO DAILY [facility] PRN Reason: Protocol Last Admin: 08/07/17 09:07 Dose: 50 mg Epoetin Anival (Procrit) 20,000 unit SC TTS [facility] Last Admin: 08/07/17 10:22 Dose: 20,000 unit Ferric Sodium Gluconate Complex (Ferrlecit) 125 mg IVPB DAILY [facility] Stop: 08/10/17 10:01 Last Admin: 08/07/17 09:06 Dose: 125 mg Heparin Sodium (Porcine) (Heparin) 5,000 units SC Q12H [facility] Last Admin: 08/07/17 09:07 Dose: 5,000 units Cefepime HCl 1 gm/ Dextrose 50 mls @ 100 mls/hr IVPB DAILY [facility] PRN Reason: Protocol Last Admin: 08/07/17 09:11 Dose: 100 mls/hr Vancomycin/Sodium Chloride (Vancomycin 1 Gm/Ns 200 Ml) 1 gm in 200 mls @ 133.333 mls/hr IVPB Q48H [facility] PRN Reason: Protocol Last Admin: 08/06/17 13:48 Dose: 133.333 mls/hr Insulin Aspart (Novolog) 16 unit SC BID [facility] Last Admin: 08/07/17 09:20 Dose: Not Given Insulin Glargine (Lantus) 16 unit SC HS [facility] Last Admin: 08/06/17 22:14 Dose: Not Given Insulin Human Regular (Novolin R) 0 unit SC ACHS [facility] PRN Reason: Protocol Last Admin: 08/07/17 12:16 Dose: Not Given Labetalol HCl (Normodyne) 300 mg PO Q8H [facility] Last Admin: 08/07/17 09:00 Dose: 300 mg Morphine Sulfate (Morphine) 2 mg IV Q4 PRN PRN Reason: Pain, severe (8-10) Last Admin: 08/07/17 14:17 Dose: 2 mg Ondansetron HCl (Zofran Inj) 4 mg IVP Q6H PRN PRN Reason: Nausea/Vomiting Last Admin: 08/06/17 19:22 Dose: 4 mg Saccharomyces Boulardii (Florastor) 250 mg PO BID [facility] Last Admin: 08/07/17 09:07 Dose: 250 mg Sertraline HCl (Zoloft) 50 mg PO DAILY [facility] Last Admin: 08/07/17 09:08 Dose: 50 mg Sodium Bicarbonate (Sodium Bicarbonate Tab) 650 mg PO Q8 [facility] Last Admin: 08/07/17 14:22 Dose: 650 mg Sodium Hypochlorite (Dakins Solution 0.125%) 0 appl TOP DAILY [facility] Last Admin: 08/07/17 10:24 Dose: Not Given Vitamin B Complex/Vit C/Folic Acid (Nephro-Rosario) 1 tab PO 0800 [facility] Last Admin: 08/07/17 09:00 Dose: 1 tab - Labs Labs: 08/07/17 07:00 08/07/17 07:00 PT 14.4 SECONDS (9.7-12.2) H 08/05/17 14:01 INR 1.3 08/05/17 14:01 APTT 34 SECONDS (21-34) 08/05/17 14:01 - Constitutional Appears: Well, Non-toxic, No Acute Distress - Extremities Exam Additional comments: Dressing is clean, dry intact with no strike through noted - Neurological Exam Neurological Exam: Alert, Awake, Oriented x3 - Psychiatric Exam Psychiatric exam: Normal Affect, Normal Mood Assessment and Plan - Assessment and Plan (Free Text) Assessment: 36 year old female patient seen 1 day s/p Chopart's amputation Plan: Pt seen and evaluated Discussed plan with attending Dr. Coy Labs and vitals reviewed - afebrile; WBC @ 14.3 Dressing from the OR remains c/d/i with no strike through ID Dr. Del Valle on board, appreciate recs Continue pain mgt per primary team Will continue to follow patient while in house
--- NOTE | 2017-08-07 19:17 | PN ---
DATE: 08/07/2017 The patient is located in room 570, bed A. Requested by Art Nathan MD REASON FOR FOLLOWUP Acute renal failure, anemia, chronic kidney disease, proteinuria. SUBJECTIVE: Mrs. Johnson is a 36-year-old young transgender female with a past medical history significant for longstanding hypertension, diabetes, HIV positive, chronic kidney disease stage IV, proteinuria, anemia, secondary hyperparathyroidism, metabolic acidosis, hyperkalemia on and off, Charcot's foot with a nonhealing left leg ulcer, being treated for osteomyelitis, noncompliant to medication and IV antibiotics, was admitted again with a nonhealing ulcer and left foot infection. The patient underwent transmetatarsal amputation yesterday, that is on 08/06/2017. The patient is not in acute distress. Denies any headache, dizziness. Denies any chest pain or palpitation. Denies any fever or cough. No abdominal pain. No nausea, vomiting, diarrhea. Denies any bleeding per rectum or any black stool or melena. PHYSICAL EXAMINATION: VITAL SIGNS: As follows: Blood pressure this morning 137/78, pulse 88, respiration 18, temperature 98.4, saturation 97%. Height 6 feet 3 inches and weight is 280 pounds. HEENT: Mrs. Johnson is a 36-year-old young transgender female, well built, well nourished, not in distress. External appearance as male, not in distress. HEENT: Pupils normal and reactive to light and accommodation. Conjunctivae pale. Sclerae anicteric. Tongue is moist. Trachea is midline. LUNGS: Symmetric on both sides. Bilateral breath sounds present. Clear to auscultation. CVS: [place] at the fifth intercostal space, midclavicular line. S1 and S2 audible. No murmur or gallop. ABDOMEN: Normal in appearance, soft, tympanic. No guarding. No rigidity. No hepatosplenomegaly. TYING MACHINE OPERATOR: The patient is alert, awake, oriented x3. Nonfocal neuro examination. Cranial nerves II through XII grossly intact. Sensory and motor systems are within normal limits. EXTREMITIES: No cyanosis, no clubbing, no edema on the right leg. Status post amputation of the left forefoot. The patient has a dressing present. CURRENT MEDICATIONS: Include as follows: Cefepime 1 gm daily, Ferrlecit 125 mg daily, Florastor 250 mg b.i.d., subcu heparin 5000 every 12 hours, Lantus 16 units subcu at bedtime, morphine 2 mg IV every 4 hours p.r.n., Nephro-Rosario 1 tablet daily, labetalol 300 mg p.o. every 8 hours, amlodipine 10 mg daily, Novolin R per sliding scale, NovoLog 16 units subcu b.i.d., Epogen 20,000 units three times a week, Rocaltrol 0.25 mcg three times a week, sodium bicarbonate 650 mg p.o. every 8 hours. 50 mg p.o. daily, Tylenol, vancomycin 1 gm IV piggyback every 48 hours, Zofran 4 mg IV every 6 hours. Zoloft 50 mg p.o. daily. LABORATORY DATA: Include as follows: As of 08/07/2017: WBC 14.3, hemoglobin 6.6, hematocrit is 19.9, platelets are 398. Sodium 135, potassium 4.7, chloride 104, CO2 is 21, BUN 36, creatinine 4.2, glucose 115, calcium 8.4. Total bilirubin 0.4, AST 42, ALT 19, alkaline phosphatase 231, total protein 7.8, albumin is 2.6, and vancomycin random level is 11.2. Stool for occult blood is negative as of 08/05/2017. In summary, Ms. Johnson is a 36-year-old young transgender female with hypertension, diabetes, proteinuria, renal failure, anemia, metabolic acidosis, and secondary hyperparathyroidism with Charcot's foot, status post amputation of the left forefoot with decreasing H and H. 1. Renal failure. [id number] kidney disease stage 4. Rule out ATN versus rule out progression of the chronic kidney disease. Rule out diabetic nephropathy. Rule out chronic GN such as FSGN, rule out multiple myeloma. 2. Anemia secondary to renal failure, iron deficiency and cannot rule out secondary to HIV. Rule out multiple myeloma. 3. Secondary hyperparathyroidism. 4. Metabolic acidosis. 5. Charcot's foot, status post amputation of the left forefoot. Continue her current medications, Procrit, calcitriol, sodium bicarbonate, antiretroviral medications, and IV Ferrlecit. Follow up with formation testing operator for further management regarding the anemia, may need a transfusion again. Rule out hemolysis. Consider to do hemodialysis workup. Overall prognosis is guarded. Consider to transfuse if formation testing operator agrees. Weston Brambila MD
[2017-08-07] MEDS: (Lantus) Insulin Glargine, Recombinant SC SCH (22:22)
[2017-08-08] MEDS: Labetalol Hydrochloride 300 mg Tab PO SCH ×3 (00:30→16:58)
--- NOTE | 2017-08-08 01:20 | CP.PCM.PN ---
Subjective - Date & Time of Evaluation Date of Evaluation: 08/07/17 Time of Evaluation: 16:00 - Subjective Subjective: Has some surgical site pain. Objective - Vital Signs/Intake and Output Vital Signs (last 24 hours): Temp Pulse Resp BP Pulse Ox 98.5 F 91 H 20 156/67 H 97 08/07/17 23:27 08/07/17 23:27 08/07/17 23:27 08/07/17 23:27 08/07/17 23:27 Intake and Output: 08/07/17 08/08/17 18:59 06:59 Intake Total 600 Balance 600 - Medications Medications: Current Medications Acetaminophen (Tylenol 325mg Tab) 650 mg PO ONCE PRN PRN Reason: Fever >100.4 F Amlodipine Besylate (Norvasc) 10 mg PO DAILY [facility] Last Admin: 08/07/17 09:07 Dose: 10 mg Calcitriol (Rocaltrol) 0.25 mcg PO TTS [facility] Last Admin: 08/07/17 09:27 Dose: 0.25 mcg Dolutegravir Sodium (Tivicay) 50 mg PO DAILY [facility] PRN Reason: Protocol Last Admin: 08/07/17 09:07 Dose: 50 mg Epoetin Anival (Procrit) 20,000 unit SC TTS [facility] Last Admin: 08/07/17 10:22 Dose: 20,000 unit Ferric Sodium Gluconate Complex (Ferrlecit) 125 mg IVPB DAILY [facility] Stop: 08/10/17 10:01 Last Admin: 08/07/17 09:06 Dose: 125 mg Heparin Sodium (Porcine) (Heparin) 5,000 units SC Q12H [facility] Last Admin: 08/07/17 22:21 Dose: 5,000 units Cefepime HCl 1 gm/ Dextrose 50 mls @ 100 mls/hr IVPB DAILY [facility] PRN Reason: Protocol Last Admin: 08/07/17 09:11 Dose: 100 mls/hr Vancomycin/Sodium Chloride (Vancomycin 1 Gm/Ns 200 Ml) 1 gm in 200 mls @ 133.333 mls/hr IVPB Q48H [facility] PRN Reason: Protocol Last Admin: 08/06/17 13:48 Dose: 133.333 mls/hr Insulin Aspart (Novolog) 16 unit SC BID [facility] Last Admin: 08/07/17 17:06 Dose: Not Given Insulin Glargine (Lantus) 16 unit SC HS [facility] Last Admin: 08/07/17 22:22 Dose: Not Given Insulin Human Regular (Novolin R) 0 unit SC ACHS [facility] PRN Reason: Protocol Last Admin: 08/07/17 22:03 Dose: Not Given Labetalol HCl (Normodyne) 300 mg PO Q8H [facility] Last Admin: 08/08/17 00:30 Dose: 300 mg Morphine Sulfate (Morphine) 2 mg IV Q4 PRN PRN Reason: Pain, severe (8-10) Last Admin: 08/07/17 22:20 Dose: 2 mg Ondansetron HCl (Zofran Inj) 4 mg IVP Q6H PRN PRN Reason: Nausea/Vomiting Last Admin: 08/06/17 19:22 Dose: 4 mg Saccharomyces Boulardii (Florastor) 250 mg PO BID [facility] Last Admin: 08/07/17 17:07 Dose: 250 mg Sertraline HCl (Zoloft) 50 mg PO DAILY [facility] Last Admin: 08/07/17 09:08 Dose: 50 mg Sodium Bicarbonate (Sodium Bicarbonate Tab) 650 mg PO Q8 [facility] Last Admin: 08/07/17 22:20 Dose: 650 mg Sodium Hypochlorite (Dakins Solution 0.125%) 0 appl TOP DAILY [facility] Last Admin: 08/07/17 10:24 Dose: Not Given Vitamin B Complex/Vit C/Folic Acid (Nephro-Rosario) 1 tab PO 0800 [facility] Last Admin: 08/07/17 09:00 Dose: 1 tab - Labs Labs: 08/07/17 07:00 08/07/17 07:00 PT 14.4 SECONDS (9.7-12.2) H 08/05/17 14:01 INR 1.3 08/05/17 14:01 APTT 34 SECONDS (21-34) 08/05/17 14:01 - Head Exam Head Exam: ATRAUMATIC - Eye Exam Eye Exam: Normal appearance - ENT Exam ENT Exam: Mucous Membranes Dry - Respiratory Exam Respiratory Exam: NORMAL BREATHING PATTERN - Cardiovascular Exam Cardiovascular Exam: +S1, +S2 - GI/Abdominal Exam GI & Abdominal Exam: Normal Bowel Sounds Assessment and Plan (1) Anemia Assessment & Plan: multifactorial anemia of chronic disease from osteomyelitis anemia of CKD anemia of HIV on KIT to decrease transfusion requirements. for 2U PRBC in AM Status: Acute (2) Monoclonal gammopathy Assessment & Plan: + monoclonal protein detected in urine abnormal free light chain ratio skeletal survey to evaluate for lytic lesions possible bone marrow +/- kidney biopsy Status: Acute
[2017-08-08] MEDS ORDERED: DiphenhydrAMINE 50 mg/ml Inj IVP STA (03:29)
[2017-08-08] MEDS: (Novolin R) Insulin Human Regular 100 units/ml vial SC SCH ×4 (07:46→22:02)
[2017-08-08] MEDS: Multivitamin Vitamin B Complex (Nephro-Vite) Tab PO SCH (08:39)
[2017-08-08] MEDS: Saccharomyces Boulardi 250 mg Cap PO SCH ×2 (10:33→16:59)
[2017-08-08] MEDS: Ferric Sodium Gluconat Complex 62.5 mg/5 ml Vial IVPB SCH (10:33)
[2017-08-08] MEDS: (Novolog) Insulin Aspart, Recombinant 100 u/ml 10 ml vial SC SCH ×2 (10:48→17:06)
--- NOTE | 2017-08-08 11:52 | CP.PCM.PN ---
Subjective - Date & Time of Evaluation Date of Evaluation: 08/08/17 Time of Evaluation: 10:20 - Subjective Subjective: afebrile. condition same. Objective - Vital Signs/Intake and Output Vital Signs (last 24 hours): Temp Pulse Resp BP Pulse Ox 98 F 89 18 117/74 99 08/08/17 11:02 08/08/17 11:02 08/08/17 11:02 08/08/17 11:02 08/08/17 08:42 Intake and Output: 08/08/17 08/08/17 06:59 18:59 Intake Total 600 325 Balance 600 325 - Medications Medications: Current Medications Acetaminophen (Tylenol 325mg Tab) 650 mg PO ONCE PRN PRN Reason: Fever >100.4 F Amlodipine Besylate (Norvasc) 10 mg PO DAILY [facility] Last Admin: 08/08/17 10:33 Dose: 10 mg Calcitriol (Rocaltrol) 0.25 mcg PO TTS [facility] Last Admin: 08/07/17 09:27 Dose: 0.25 mcg Epoetin Anival (Procrit) 20,000 unit SC TTS [facility] Last Admin: 08/07/17 10:22 Dose: 20,000 unit Ferric Sodium Gluconate Complex (Ferrlecit) 125 mg IVPB DAILY [facility] Stop: 08/10/17 10:01 Last Admin: 08/08/17 10:33 Dose: 125 mg Heparin Sodium (Porcine) (Heparin) 5,000 units SC Q12H [facility] Last Admin: 08/08/17 10:33 Dose: 5,000 units Cefepime HCl 1 gm/ Dextrose 50 mls @ 100 mls/hr IVPB DAILY [facility] PRN Reason: Protocol Last Admin: 08/08/17 10:34 Dose: 100 mls/hr Vancomycin/Sodium Chloride (Vancomycin 1 Gm/Ns 200 Ml) 1 gm in 200 mls @ 133.333 mls/hr IVPB Q48H [facility] PRN Reason: Protocol Last Admin: 08/06/17 13:48 Dose: 133.333 mls/hr Insulin Aspart (Novolog) 16 unit SC BID [facility] Last Admin: 08/08/17 10:48 Dose: Not Given Insulin Glargine (Lantus) 16 unit SC HS [facility] Last Admin: 08/07/17 22:22 Dose: Not Given Insulin Human Regular (Novolin R) 0 unit SC ACHS [facility] PRN Reason: Protocol Last Admin: 08/08/17 07:46 Dose: Not Given Labetalol HCl (Normodyne) 300 mg PO Q8H [facility] Last Admin: 08/08/17 08:39 Dose: 300 mg Morphine Sulfate (Morphine) 2 mg IV Q4 PRN PRN Reason: Pain, severe (8-10) Last Admin: 08/08/17 10:35 Dose: 2 mg Ondansetron HCl (Zofran Inj) 4 mg IVP Q6H PRN PRN Reason: Nausea/Vomiting Last Admin: 08/06/17 19:22 Dose: 4 mg Saccharomyces Boulardii (Florastor) 250 mg PO BID [facility] Last Admin: 08/08/17 10:33 Dose: 250 mg Sertraline HCl (Zoloft) 50 mg PO DAILY [facility] Last Admin: 08/08/17 10:33 Dose: 50 mg Sodium Bicarbonate (Sodium Bicarbonate Tab) 650 mg PO Q8 [facility] Last Admin: 08/08/17 06:29 Dose: 650 mg Sodium Hypochlorite (Dakins Solution 0.125%) 0 appl TOP DAILY [facility] Last Admin: 08/08/17 10:48 Dose: Not Given Vitamin B Complex/Vit C/Folic Acid (Nephro-Rosario) 1 tab PO 0800 [facility] Last Admin: 08/08/17 08:39 Dose: 1 tab - Labs Labs: 08/07/17 07:00 08/07/17 07:00 PT 14.4 SECONDS (9.7-12.2) H 08/05/17 14:01 INR 1.3 08/05/17 14:01 APTT 34 SECONDS (21-34) 08/05/17 14:01 - Constitutional Appears: No Acute Distress, Chronically Ill - Eye Exam Eye Exam: EOMI, Normal appearance, PERRL Pupil Exam: NORMAL ACCOMODATION, PERRL - ENT Exam ENT Exam: Mucous Membranes Moist, Normal Exam - Respiratory Exam Respiratory Exam: Clear to Ausculation Bilateral, NORMAL BREATHING PATTERN - Cardiovascular Exam Cardiovascular Exam: REGULAR RHYTHM, +S1, +S2. absent: Murmur - GI/Abdominal Exam GI & Abdominal Exam: Soft, Normal Bowel Sounds. absent: Tenderness - Extremities Exam Extremities Exam: Full ROM, Normal Capillary Refill, Normal Inspection. absent : Joint Swelling, Pedal Edema - Back Exam Back Exam: NORMAL INSPECTION - Neurological Exam Neurological Exam: Alert, Awake, CN II-XII Intact, Normal Gait, Oriented x3 Assessment and Plan - Assessment and Plan (Free Text) Assessment: same. Plan: ct present treatment.
--- NOTE | 2017-08-08 12:24 | CP.PCM.PN ---
Subjective - Date & Time of Evaluation Date of Evaluation: 08/08/17 Time of Evaluation: 12:24 - Subjective Subjective: pt is seen and examined, follow up consult is dictated #[id number] for prbc transfusion f/u bmp, cbc in am Objective - Vital Signs/Intake and Output Vital Signs (last 24 hours): Temp Pulse Resp BP Pulse Ox 98 F 89 18 117/74 99 08/08/17 11:02 08/08/17 11:02 08/08/17 11:02 08/08/17 11:02 08/08/17 08:42 Intake and Output: 08/08/17 08/08/17 06:59 18:59 Intake Total 600 325 Balance 600 325 - Medications Medications: Current Medications Acetaminophen (Tylenol 325mg Tab) 650 mg PO ONCE PRN PRN Reason: Fever >100.4 F Amlodipine Besylate (Norvasc) 10 mg PO DAILY [facility] Last Admin: 08/08/17 10:33 Dose: 10 mg Calcitriol (Rocaltrol) 0.25 mcg PO TTS [facility] Last Admin: 08/07/17 09:27 Dose: 0.25 mcg Epoetin Anival (Procrit) 20,000 unit SC TTS [facility] Last Admin: 08/07/17 10:22 Dose: 20,000 unit Ferric Sodium Gluconate Complex (Ferrlecit) 125 mg IVPB DAILY [facility] Stop: 08/10/17 10:01 Last Admin: 08/08/17 10:33 Dose: 125 mg Heparin Sodium (Porcine) (Heparin) 5,000 units SC Q12H [facility] Last Admin: 08/08/17 10:33 Dose: 5,000 units Cefepime HCl 1 gm/ Dextrose 50 mls @ 100 mls/hr IVPB DAILY [facility] PRN Reason: Protocol Last Admin: 08/08/17 10:34 Dose: 100 mls/hr Vancomycin/Sodium Chloride (Vancomycin 1 Gm/Ns 200 Ml) 1 gm in 200 mls @ 133.333 mls/hr IVPB Q48H [facility] PRN Reason: Protocol Last Admin: 08/06/17 13:48 Dose: 133.333 mls/hr Insulin Aspart (Novolog) 16 unit SC BID [facility] Last Admin: 08/08/17 10:48 Dose: Not Given Insulin Glargine (Lantus) 16 unit SC HS [facility] Last Admin: 08/07/17 22:22 Dose: Not Given Insulin Human Regular (Novolin R) 0 unit SC ACHS [facility] PRN Reason: Protocol Last Admin: 08/08/17 07:46 Dose: Not Given Labetalol HCl (Normodyne) 300 mg PO Q8H [facility] Last Admin: 08/08/17 08:39 Dose: 300 mg Morphine Sulfate (Morphine) 2 mg IV Q4 PRN PRN Reason: Pain, severe (8-10) Last Admin: 08/08/17 10:35 Dose: 2 mg Ondansetron HCl (Zofran Inj) 4 mg IVP Q6H PRN PRN Reason: Nausea/Vomiting Last Admin: 08/06/17 19:22 Dose: 4 mg Saccharomyces Boulardii (Florastor) 250 mg PO BID [facility] Last Admin: 08/08/17 10:33 Dose: 250 mg Sertraline HCl (Zoloft) 50 mg PO DAILY [facility] Last Admin: 08/08/17 10:33 Dose: 50 mg Sodium Bicarbonate (Sodium Bicarbonate Tab) 650 mg PO Q8 [facility] Last Admin: 08/08/17 06:29 Dose: 650 mg Sodium Hypochlorite (Dakins Solution 0.125%) 0 appl TOP DAILY [facility] Last Admin: 08/08/17 10:48 Dose: Not Given Vitamin B Complex/Vit C/Folic Acid (Nephro-Rosario) 1 tab PO 0800 [facility] Last Admin: 08/08/17 08:39 Dose: 1 tab - Labs Labs: 08/07/17 07:00 08/07/17 07:00 PT 14.4 SECONDS (9.7-12.2) H 08/05/17 14:01 INR 1.3 08/05/17 14:01 APTT 34 SECONDS (21-34) 08/05/17 14:01
[2017-08-08] MEDS: Vancomycin 1 gm/NS 200 ml 1 GM/200 ML BAG IVPB SCH (13:41)
--- NOTE | 2017-08-08 15:41 | CP.PCM.PN ---
Subjective - Date & Time of Evaluation Date of Evaluation: 08/08/17 Time of Evaluation: 11:00 - Subjective Subjective: rx renewed iv rx in progress Objective - Vital Signs/Intake and Output Vital Signs (last 24 hours): Temp Pulse Resp BP Pulse Ox 98 F 89 18 117/74 99 08/08/17 11:02 08/08/17 11:02 08/08/17 11:02 08/08/17 11:02 08/08/17 08:42 Intake and Output: 08/08/17 08/08/17 06:59 18:59 Intake Total 600 1450 Balance 600 1450 - Medications Medications: Current Medications Acetaminophen (Tylenol 325mg Tab) 650 mg PO ONCE PRN PRN Reason: Fever >100.4 F Amlodipine Besylate (Norvasc) 10 mg PO DAILY [facility] Last Admin: 08/08/17 10:33 Dose: 10 mg Calcitriol (Rocaltrol) 0.25 mcg PO TTS [facility] Last Admin: 08/07/17 09:27 Dose: 0.25 mcg Epoetin Anival (Procrit) 20,000 unit SC TTS [facility] Last Admin: 08/07/17 10:22 Dose: 20,000 unit Ferric Sodium Gluconate Complex (Ferrlecit) 125 mg IVPB DAILY [facility] Stop: 08/10/17 10:01 Last Admin: 08/08/17 10:33 Dose: 125 mg Heparin Sodium (Porcine) (Heparin) 5,000 units SC Q12H [facility] Last Admin: 08/08/17 10:33 Dose: 5,000 units Cefepime HCl 1 gm/ Dextrose 50 mls @ 100 mls/hr IVPB DAILY [facility] PRN Reason: Protocol Last Admin: 08/08/17 10:34 Dose: 100 mls/hr Vancomycin/Sodium Chloride (Vancomycin 1 Gm/Ns 200 Ml) 1 gm in 200 mls @ 133.333 mls/hr IVPB Q48H [facility] PRN Reason: Protocol Last Admin: 08/08/17 13:41 Dose: 133.333 mls/hr Insulin Aspart (Novolog) 16 unit SC BID [facility] Last Admin: 08/08/17 10:48 Dose: Not Given Insulin Glargine (Lantus) 16 unit SC HS [facility] Last Admin: 08/07/17 22:22 Dose: Not Given Insulin Human Regular (Novolin R) 0 unit SC ACHS [facility] PRN Reason: Protocol Last Admin: 08/08/17 12:25 Dose: 2 unit Labetalol HCl (Normodyne) 300 mg PO Q8H [facility] Last Admin: 08/08/17 08:39 Dose: 300 mg Morphine Sulfate (Morphine) 2 mg IV Q4 PRN PRN Reason: Pain, severe (8-10) Last Admin: 08/08/17 14:25 Dose: 2 mg Ondansetron HCl (Zofran Inj) 4 mg IVP Q6H PRN PRN Reason: Nausea/Vomiting Last Admin: 08/06/17 19:22 Dose: 4 mg Saccharomyces Boulardii (Florastor) 250 mg PO BID [facility] Last Admin: 08/08/17 10:33 Dose: 250 mg Sertraline HCl (Zoloft) 50 mg PO DAILY [facility] Last Admin: 08/08/17 10:33 Dose: 50 mg Sodium Bicarbonate (Sodium Bicarbonate Tab) 650 mg PO Q8 [facility] Last Admin: 08/08/17 13:41 Dose: 650 mg Sodium Hypochlorite (Dakins Solution 0.125%) 0 appl TOP DAILY [facility] Last Admin: 08/08/17 10:48 Dose: Not Given Vitamin B Complex/Vit C/Folic Acid (Nephro-Rosario) 1 tab PO 0800 [facility] Last Admin: 08/08/17 08:39 Dose: 1 tab - Labs Labs: 08/07/17 07:00 08/07/17 07:00 PT 14.4 SECONDS (9.7-12.2) H 08/05/17 14:01 INR 1.3 08/05/17 14:01 APTT 34 SECONDS (21-34) 08/05/17 14:01 - Constitutional Appears: Non-toxic - Head Exam Head Exam: NORMOCEPHALIC - Eye Exam Eye Exam: PERRL - ENT Exam ENT Exam: Mucous Membranes Dry - Neck Exam Neck Exam: absent: Lymphadenopathy - Respiratory Exam Respiratory Exam: Decreased Breath Sounds - Cardiovascular Exam Cardiovascular Exam: REGULAR RHYTHM Assessment and Plan (1) Anemia Status: Acute (2) Chronic ulcer of left leg Status: Chronic (3) HIV disease Status: Chronic (4) GAEL (acute kidney injury) Status: Acute (5) Abscess and cellulitis Status: Acute
--- NOTE | 2017-08-08 16:30 | CP.PCM.PN ---
Subjective - Date & Time of Evaluation Date of Evaluation: 08/08/17 Time of Evaluation: 16:21 - Subjective Subjective: Podiatry Progress note for Dr. Coy 36 year old female seen at bedside 2 days s/p left foot Chopart's amputation. She is seen resting comfortably at bedside. Patient is AAOx3 and is in NAD. Denies of acute overnight events. Reports that she walked a little today coming out of the bathroom. At the time of the visit there was sero-sanguineous drainage streaks on the floor from walking. Dressing had bloody discharge strike -through on the plantar lateral side. Denies of having pain at this time. Denies F/C/N/V/CP/SOB. Denies other pedal complains. Objective - Vital Signs/Intake and Output Vital Signs (last 24 hours): Temp Pulse Resp BP Pulse Ox 98.3 F 82 20 129/80 90 L 08/08/17 16:16 08/08/17 16:16 08/08/17 16:16 08/08/17 16:16 08/08/17 15:00 Intake and Output: 08/08/17 08/08/17 06:59 18:59 Intake Total 600 1450 Balance 600 1450 - Medications Medications: Current Medications Acetaminophen (Tylenol 325mg Tab) 650 mg PO ONCE PRN PRN Reason: Fever >100.4 F Amlodipine Besylate (Norvasc) 10 mg PO DAILY [facility] Last Admin: 08/08/17 10:33 Dose: 10 mg Calcitriol (Rocaltrol) 0.25 mcg PO TTS [facility] Last Admin: 08/07/17 09:27 Dose: 0.25 mcg Epoetin Anival (Procrit) 20,000 unit SC TTS [facility] Last Admin: 08/07/17 10:22 Dose: 20,000 unit Ferric Sodium Gluconate Complex (Ferrlecit) 125 mg IVPB DAILY [facility] Stop: 08/10/17 10:01 Last Admin: 08/08/17 10:33 Dose: 125 mg Heparin Sodium (Porcine) (Heparin) 5,000 units SC Q12H [facility] Last Admin: 08/08/17 10:33 Dose: 5,000 units Cefepime HCl 1 gm/ Dextrose 50 mls @ 100 mls/hr IVPB DAILY [facility] PRN Reason: Protocol Last Admin: 08/08/17 10:34 Dose: 100 mls/hr Vancomycin/Sodium Chloride (Vancomycin 1 Gm/Ns 200 Ml) 1 gm in 200 mls @ 133.333 mls/hr IVPB Q48H [facility] PRN Reason: Protocol Last Admin: 08/08/17 13:41 Dose: 133.333 mls/hr Insulin Aspart (Novolog) 16 unit SC BID [facility] Last Admin: 08/08/17 10:48 Dose: Not Given Insulin Glargine (Lantus) 16 unit SC HS [facility] Last Admin: 08/07/17 22:22 Dose: Not Given Insulin Human Regular (Novolin R) 0 unit SC ACHS [facility] PRN Reason: Protocol Last Admin: 08/08/17 12:25 Dose: 2 unit Labetalol HCl (Normodyne) 300 mg PO Q8H [facility] Last Admin: 08/08/17 08:39 Dose: 300 mg Morphine Sulfate (Morphine) 2 mg IV Q4 PRN PRN Reason: Pain, severe (8-10) Last Admin: 08/08/17 14:25 Dose: 2 mg Ondansetron HCl (Zofran Inj) 4 mg IVP Q6H PRN PRN Reason: Nausea/Vomiting Last Admin: 08/06/17 19:22 Dose: 4 mg Saccharomyces Boulardii (Florastor) 250 mg PO BID [facility] Last Admin: 08/08/17 10:33 Dose: 250 mg Sertraline HCl (Zoloft) 50 mg PO DAILY [facility] Last Admin: 08/08/17 10:33 Dose: 50 mg Sodium Bicarbonate (Sodium Bicarbonate Tab) 650 mg PO Q8 [facility] Last Admin: 08/08/17 13:41 Dose: 650 mg Sodium Hypochlorite (Dakins Solution 0.125%) 0 appl TOP DAILY [facility] Last Admin: 08/08/17 10:48 Dose: Not Given Vitamin B Complex/Vit C/Folic Acid (Nephro-Rosario) 1 tab PO 0800 [facility] Last Admin: 08/08/17 08:39 Dose: 1 tab - Labs Labs: 08/07/17 07:00 08/07/17 07:00 PT 14.4 SECONDS (9.7-12.2) H 08/05/17 14:01 INR 1.3 08/05/17 14:01 APTT 34 SECONDS (21-34) 08/05/17 14:01 - Constitutional Appears: Well, Non-toxic, No Acute Distress - Extremities Exam Additional comments: Left lower extremity focused exam: strikethrough noted to the dressing VASC- DP pulse faintly palpable, skin temp runs warm to warm, minimal non- pitting edema noted on the distal extremity proximal to the ankle joint DERM- Surgical site remains intact with surgical site well coapted, no dehiscence, capri surgical site appears macerated with gross lichenification of pedal skin, medial surgical site appears to less macerated, the lateral distal stump site has a circular opening which measures approx 1 cm x 1 cm with a significant amount of depth, sinus track through the open site tracks medially dorso-medially, proximally and distally, no active drainage up on pressure from all direction towards the opening, no malodor present NEURO- gross and protective pedal sensation are diminished MSK- minimal tenderness noted to palp of the surgical site - Neurological Exam Neurological Exam: Alert, Awake, Oriented x3 - Psychiatric Exam Psychiatric exam: Normal Affect, Normal Mood Assessment and Plan - Assessment and Plan (Free Text) Assessment: 36 year old female patient seen 2 days s/p Chopart's amputation Plan: Pt seen and evaluated Discussed plan with attending Dr. Coy Labs and vitals reviewed - afebrile; WBC @ 14.3 as of yesterday Dressing changed using 1/4 inch packing, betadine, xeroform, DSD, RAFFY Intra-op wound cultures: Coagulase Neg Staph ID Dr. Del Valle on board, appreciate recs Continue pain mgt per primary team Will continue to follow patient while in house
[2017-08-08] MEDS: (Lantus) Insulin Glargine, Recombinant SC SCH (22:02)
[2017-08-09] MEDS: Labetalol Hydrochloride 300 mg Tab PO SCH ×3 (00:04→17:52)
[2017-08-09] MEDS ORDERED: DiphenhydrAMINE 50 mg/ml Inj IVP STA ×2 (00:15→23:43)
--- NOTE | 2017-08-09 01:24 | PN ---
DATE: 08/08/2017 FOLLOWUP RENAL CONSULTATION LOCATION: The patient is located in room 570, bed A. REQUESTED BY: Art Nathan MD REASON FOR FOLLOWUP: Acute renal failure, chronic kidney disease. HISTORY OF PRESENT ILLNESS: Mrs. Johnson is 36 years old young transgender female with a past medical history significant for hypertension, diabetes, chronic kidney disease, proteinuria, HIV positive, noncompliance with medications, Charcot's foot, and osteomyelitis of the left foot with multiple admissions and worsening renal function who was admitted with chief complaints of unable to receive antibiotics and also drainage from the left foot. The patient subsequently underwent left forefoot amputation on Wednesday. The patient is not in acute distress, and denies any complaints. No chest pain. No palpitation. No fever. No cough. No abdominal nausea, vomiting, diarrhea. The patient was also found to have a low H and H again postop, and scheduled to receive 2 units of packed RBC. PHYSICAL EXAMINATION: VITAL SIGNS: As follows, blood pressure 117/74, pulse 81, respirations 20, temperature 98, saturation 90% on room air. Height 6 feet 3 inches and weight is 280 pounds. GENERAL: Mrs. Johnson is a 36 years old young old transgender female, well-built, well-nourished, not in distress. External appearance as a male. HEENT: Pupils normal and reactive to light and accommodation. Conjunctivae pale. Sclerae anicteric. Tongue is moist. Trachea is midline. LUNGS: Symmetric on both sides. Bilateral breath sounds present. Clear to auscultation. CVS: Centrahoma at the fifth intercostal space, midclavicular line. S1, S2 audible. No murmur or gallop. ABDOMEN: Normal in appearance, soft, tympanic. No guarding. No rigidity. No hepatosplenomegaly. PARTS MANAGER: The patient is alert, awake, and oriented x3. Nonfocal neuro examination. EXTREMITIES: No cyanosis, no clubbing, no edema on the right leg. The patient has a dressing to the left foot. MEDICATIONS: Current medications include as follows, cefepime 1 gm daily, Ferrlecit 125 mg IV piggyback daily, Florastor 250 mg p.o. b.i.d., subcu heparin 5000 every 12 hours, Lantus 16 units subcu at bedtime, morphine 2 mg IV every 4 hours, Nephro-Rosario 1 tablet daily, labetalol 300 mg p.o. every 8 hours, Norvasc 10 mg daily, Novolin R for sliding scale, NovoLog 16 units subcu b.i.d., Procrit 20,000 units subcu three times a week, calcitriol 0.25 mcg, sodium bicarb 650 mg p.o. every 8 hours, Tylenol, vancomycin 1 gm every 48 hours, Zofran 4 mg IV every 6 hours, Zoloft 50 mg p.o. daily. No new labs are available for today. Accu-Chek 179 and 90. Blood culture as of 08/03/2017 is negative x2 day 5, and wound culture positive for coag negative staphylococcus as of 08/06/2017. IMPRESSION: In summary, Mrs. Johnson is a 36 years old young transgender female with hypertension, diabetes, nephrotic range proteinuria, anemia, metabolic acidosis, hyperkalemia, secondary hyperparathyroidism, human immunodeficiency virus positive, Charcot's foot, status post amputation of the left forefoot and decreasing H and H, and scheduled for transfusion. 1. Acute renal failure, on chronic kidney disease versus progression of the chronic kidney disease, rule out acute tubular necrosis, rule out diabetic nephropathy, rule out chronic glomerulonephritis such as focal segmental glomerulonephritis. 2. Anemia most likely multifactorial, human immunodeficiency virus, chronic osteomyelitis, iron deficiency, and chronic kidney disease, cannot rule out myeloma. 3. Hypertension. 4. Diabetes. 5. Secondary hyperparathyroidism. Continue Procrit. Continue Nephro-Rosario. Continue Rocaltrol. 6. Osteomyelitis of the foot, status post amputation of the left forefoot. Wound culture positive for Staph coag negative. Continue IV antibiotics, meropenem, vancomycin. We will follow with you. Thank you for allowing me to participate in your patient's care. Repeat CBC, BMP in a.m. after transfusion, and also advised low-sodium, low potassium diet. Weston Brambila MD
[2017-08-09] MEDS: (Novolin R) Insulin Human Regular 100 units/ml vial SC SCH ×4 (07:16→21:32)
[2017-08-09] MEDS: Multivitamin Vitamin B Complex (Nephro-Vite) Tab PO SCH (08:32)
[2017-08-09] MEDS: Ferric Sodium Gluconat Complex 62.5 mg/5 ml Vial IVPB SCH (09:43)
[2017-08-09] MEDS: Saccharomyces Boulardi 250 mg Cap PO SCH ×2 (09:45→17:52)
[2017-08-09] MEDS: (Novolog) Insulin Aspart, Recombinant 100 u/ml 10 ml vial SC SCH ×2 (10:00→17:20)
[2017-08-09 11:06] LABS: BASO # 0.1 K/uL (0.0-0.2); BASO % 0.9 % (0.0-2.0); EOS # 0.6 K/uL (0.0-0.7); EOS % 5.5 % (0.0-4.0); HEMOGLOBIN 8.3 g/dL (11.0-16.0); LYMPH # 2.8 K/uL (1.0-4.3); MEAN CELL VOLUME 87.3 fL (81.0-99.0); MEAN CORPUSCULAR HEMOGLOBIN 29.5 pg (27.0-31.0); MEAN CORPUSCULAR HGB CONC 33.8 g/dL (33.0-37.0); MEAN PLATELET VOLUME 6.7 fL (7.2-11.7); NEUT # 6.3 K/uL (1.8-7.0); NEUT % 58.6 % (50.0-75.0); NRBC % 0.1 % (0.0-2.0); RBC 2.83 Mil/uL (3.80-5.20); RED CELL DISTRIBUTION WIDTH 16.3 % (11.5-14.5); WHITE BLOOD COUNT 10.7 K/uL (4.8-10.8)
[2017-08-09 11:16] LABS: ALB/GLOB RATIO 0.5 (1.0-2.1); ALBUMIN 2.8 g/dL (3.5-5.0); CALCIUM 8.9 mg/dl (8.6-10.4)
--- NOTE | 2017-08-09 11:46 | CP.PCM.PN ---
Subjective - Date & Time of Evaluation Date of Evaluation: 08/09/17 Time of Evaluation: 09:45 - Subjective Subjective: Podiatry Progress Dr. Coy 36 year old female seen at bedside today 3 days s/p L foot Chopart's amputation. Pt is seen with Dr. Coy present today. She denies any pain or discomfort at this time, feels well overall. Says that she has tried to keep foot elevated as much as possible, has been walking to go to bathroom, unclear as to whether patient has put weight on the affected foot. Denies f/n/v/c/sob/ cp at this time. No other pedal complaints today. Objective - Vital Signs/Intake and Output Vital Signs (last 24 hours): Temp Pulse Resp BP Pulse Ox 98.1 F 82 20 165/105 H 100 08/09/17 08:22 08/09/17 08:22 08/09/17 08:22 08/09/17 08:22 08/09/17 08:22 Intake and Output: 08/09/17 08/09/17 06:59 18:59 Intake Total 325 Balance 325 - Medications Medications: Current Medications Acetaminophen (Tylenol 325mg Tab) 650 mg PO ONCE PRN PRN Reason: Fever >100.4 F Amlodipine Besylate (Norvasc) 10 mg PO DAILY [facility] Last Admin: 08/09/17 09:44 Dose: 10 mg Calcitriol (Rocaltrol) 0.25 mcg PO TTS [facility] Last Admin: 08/07/17 09:27 Dose: 0.25 mcg Epoetin Anival (Procrit) 20,000 unit SC TTS [facility] Last Admin: 08/07/17 10:22 Dose: 20,000 unit Ferric Sodium Gluconate Complex (Ferrlecit) 125 mg IVPB DAILY [facility] Stop: 08/10/17 10:01 Last Admin: 08/09/17 09:43 Dose: 125 mg Heparin Sodium (Porcine) (Heparin) 5,000 units SC Q12H [facility] Last Admin: 08/09/17 09:43 Dose: 5,000 units Cefepime HCl 1 gm/ Dextrose 50 mls @ 100 mls/hr IVPB DAILY [facility] PRN Reason: Protocol Last Admin: 08/09/17 09:45 Dose: 100 mls/hr Vancomycin/Sodium Chloride (Vancomycin 1 Gm/Ns 200 Ml) 1 gm in 200 mls @ 133.333 mls/hr IVPB Q48H [facility] PRN Reason: Protocol Last Admin: 08/08/17 13:41 Dose: 133.333 mls/hr Insulin Aspart (Novolog) 16 unit SC BID [facility] Last Admin: 08/09/17 10:00 Dose: Not Given Insulin Glargine (Lantus) 16 unit SC HS [facility] Last Admin: 08/08/17 22:02 Dose: Not Given Insulin Human Regular (Novolin R) 0 unit SC ACHS [facility] PRN Reason: Protocol Last Admin: 08/09/17 07:16 Dose: Not Given Labetalol HCl (Normodyne) 300 mg PO Q8H [facility] Last Admin: 08/09/17 08:32 Dose: 300 mg Morphine Sulfate (Morphine) 2 mg IV Q4 PRN PRN Reason: Pain, severe (8-10) Last Admin: 08/09/17 08:30 Dose: 2 mg Ondansetron HCl (Zofran Inj) 4 mg IVP Q6H PRN PRN Reason: Nausea/Vomiting Last Admin: 08/06/17 19:22 Dose: 4 mg Saccharomyces Boulardii (Florastor) 250 mg PO BID [facility] Last Admin: 08/09/17 09:45 Dose: 250 mg Sertraline HCl (Zoloft) 50 mg PO DAILY [facility] Last Admin: 08/09/17 09:45 Dose: 50 mg Sodium Bicarbonate (Sodium Bicarbonate Tab) 650 mg PO Q8 [facility] Last Admin: 08/09/17 05:59 Dose: 650 mg Sodium Hypochlorite (Dakins Solution 0.125%) 0 appl TOP DAILY [facility] Last Admin: 08/09/17 09:59 Dose: Not Given Vitamin B Complex/Vit C/Folic Acid (Nephro-Rosario) 1 tab PO 0800 [facility] Last Admin: 08/09/17 08:32 Dose: 1 tab - Labs Labs: 08/09/17 10:44 08/09/17 10:44 PT 14.4 SECONDS (9.7-12.2) H 08/05/17 14:01 INR 1.3 08/05/17 14:01 APTT 34 SECONDS (21-34) 08/05/17 14:01 - Constitutional Appears: Non-toxic, No Acute Distress - Extremities Exam Extremities Exam: absent: Calf Tenderness Additional comments: LLE exam: dressing appears c/d/i with no strikethrough evident VASC- DP pulse faintly palpable, skin temp runs warm to warm, minimal non- pitting edema noted on the distal extremity proximal to the ankle joint DERM- surgical site remains intact with surgical site well coapted, no dehiscence, capri-surgical site appears macerated with gross lichenification of pedal skin, medial surgical site appears to less macerated, the lateral distal stump site has a circular opening which measures approx 1 cm x 1 cm with a significant amount of depth, sinus track through the open site tracks medially dorso-medially, proximally and distally, no active drainage up on pressure from all direction towards the opening, no malodor present NEURO- gross and protective pedal sensation are diminished MSK- minimal tenderness noted to palp of the surgical site - Neurological Exam Neurological Exam: Alert, Awake, Oriented x3 - Psychiatric Exam Psychiatric exam: Normal Affect, Normal Mood Assessment and Plan - Assessment and Plan (Free Text) Assessment: 36 year old female patient seen 3 days s/p Chopart's amputation Plan: Pt S/E at bedside with Dr. Coy present Labs and vitals reviewed - afebrile; WBC trending down 10.7 today packing left in place today, to be advanced tomorrow dressing change with betadine soaked 4/4, DSD, kerlix, RAFFY Intra-op wound cultures: Coagulase Neg Staph c/w IV abx as per ID Dr. Del Valle Continue pain mgt per primary team c/w NWB to LLE with crutches stable, will follow
--- NOTE | 2017-08-09 12:06 | CP.PCM.PN ---
Subjective - Date & Time of Evaluation Date of Evaluation: 08/09/17 Time of Evaluation: 12:04 - Subjective Subjective: WOUND INF. COAG NEG STAPH. ANEMIA. CRF. DM. Objective - Vital Signs/Intake and Output Vital Signs (last 24 hours): Temp Pulse Resp BP Pulse Ox 98.1 F 82 20 165/105 H 100 08/09/17 08:22 08/09/17 08:22 08/09/17 08:22 08/09/17 08:22 08/09/17 08:22 Intake and Output: 08/09/17 08/09/17 06:59 18:59 Intake Total 325 Balance 325 - Medications Medications: Current Medications Acetaminophen (Tylenol 325mg Tab) 650 mg PO ONCE PRN PRN Reason: Fever >100.4 F Amlodipine Besylate (Norvasc) 10 mg PO DAILY [facility] Last Admin: 08/09/17 09:44 Dose: 10 mg Calcitriol (Rocaltrol) 0.25 mcg PO TTS [facility] Last Admin: 08/07/17 09:27 Dose: 0.25 mcg Epoetin Anival (Procrit) 20,000 unit SC TTS [facility] Last Admin: 08/07/17 10:22 Dose: 20,000 unit Ferric Sodium Gluconate Complex (Ferrlecit) 125 mg IVPB DAILY [facility] Stop: 08/10/17 10:01 Last Admin: 08/09/17 09:43 Dose: 125 mg Heparin Sodium (Porcine) (Heparin) 5,000 units SC Q12H [facility] Last Admin: 08/09/17 09:43 Dose: 5,000 units Cefepime HCl 1 gm/ Dextrose 50 mls @ 100 mls/hr IVPB DAILY [facility] PRN Reason: Protocol Last Admin: 08/09/17 09:45 Dose: 100 mls/hr Vancomycin/Sodium Chloride (Vancomycin 1 Gm/Ns 200 Ml) 1 gm in 200 mls @ 133.333 mls/hr IVPB Q48H [facility] PRN Reason: Protocol Last Admin: 08/08/17 13:41 Dose: 133.333 mls/hr Insulin Aspart (Novolog) 16 unit SC BID [facility] Last Admin: 08/09/17 10:00 Dose: Not Given Insulin Glargine (Lantus) 16 unit SC HS [facility] Last Admin: 08/08/17 22:02 Dose: Not Given Insulin Human Regular (Novolin R) 0 unit SC ACHS [facility] PRN Reason: Protocol Last Admin: 08/09/17 11:56 Dose: Not Given Labetalol HCl (Normodyne) 300 mg PO Q8H [facility] Last Admin: 08/09/17 08:32 Dose: 300 mg Morphine Sulfate (Morphine) 2 mg IV Q4 PRN PRN Reason: Pain, severe (8-10) Last Admin: 08/09/17 08:30 Dose: 2 mg Ondansetron HCl (Zofran Inj) 4 mg IVP Q6H PRN PRN Reason: Nausea/Vomiting Last Admin: 08/06/17 19:22 Dose: 4 mg Saccharomyces Boulardii (Florastor) 250 mg PO BID [facility] Last Admin: 08/09/17 09:45 Dose: 250 mg Sertraline HCl (Zoloft) 50 mg PO DAILY [facility] Last Admin: 08/09/17 09:45 Dose: 50 mg Sodium Bicarbonate (Sodium Bicarbonate Tab) 650 mg PO Q8 [facility] Last Admin: 08/09/17 05:59 Dose: 650 mg Sodium Hypochlorite (Dakins Solution 0.125%) 0 appl TOP DAILY [facility] Last Admin: 08/09/17 09:59 Dose: Not Given Vitamin B Complex/Vit C/Folic Acid (Nephro-Rosario) 1 tab PO 0800 [facility] Last Admin: 08/09/17 08:32 Dose: 1 tab - Labs Labs: 08/09/17 10:44 08/09/17 10:44 PT 14.4 SECONDS (9.7-12.2) H 08/05/17 14:01 INR 1.3 08/05/17 14:01 APTT 34 SECONDS (21-34) 08/05/17 14:01 - Constitutional Appears: No Acute Distress, Chronically Ill - Eye Exam Eye Exam: EOMI, Normal appearance, PERRL Pupil Exam: NORMAL ACCOMODATION, PERRL - ENT Exam ENT Exam: Mucous Membranes Moist, Normal Exam - Respiratory Exam Respiratory Exam: Clear to Ausculation Bilateral, NORMAL BREATHING PATTERN - Cardiovascular Exam Cardiovascular Exam: REGULAR RHYTHM, +S1, +S2. absent: Murmur - GI/Abdominal Exam GI & Abdominal Exam: Soft, Normal Bowel Sounds. absent: Tenderness - Extremities Exam Extremities Exam: Full ROM, Normal Capillary Refill, Normal Inspection. absent : Joint Swelling, Pedal Edema - Back Exam Back Exam: NORMAL INSPECTION - Neurological Exam Neurological Exam: Alert, Awake, CN II-XII Intact, Normal Gait, Oriented x3 Assessment and Plan - Assessment and Plan (Free Text) Assessment: WOUND INF. CRF ANEMIA. Plan: PER DR. REYES. IV ABTS.
[2017-08-09] MEDS ORDERED: Sod Polystyrene Sulf 15 gm/60 ml Susp PO ONE (12:10)
--- NOTE | 2017-08-09 13:01 | CP.PCM.PN ---
Subjective - Date & Time of Evaluation Date of Evaluation: 08/09/17 Time of Evaluation: 13:00 - Subjective Subjective: pt is seen and examined, follow up consult is dictated #[id number] agree with clifton Objective - Vital Signs/Intake and Output Vital Signs (last 24 hours): Temp Pulse Resp BP Pulse Ox 98.1 F 82 20 165/105 H 100 08/09/17 08:22 08/09/17 08:22 08/09/17 08:22 08/09/17 08:22 08/09/17 08:22 Intake and Output: 08/09/17 08/09/17 06:59 18:59 Intake Total 325 Balance 325 - Medications Medications: Current Medications Acetaminophen (Tylenol 325mg Tab) 650 mg PO ONCE PRN PRN Reason: Fever >100.4 F Amlodipine Besylate (Norvasc) 10 mg PO DAILY [facility] Last Admin: 08/09/17 09:44 Dose: 10 mg Calcitriol (Rocaltrol) 0.25 mcg PO TTS [facility] Last Admin: 08/07/17 09:27 Dose: 0.25 mcg Epoetin Anival (Procrit) 20,000 unit SC TTS [facility] Last Admin: 08/07/17 10:22 Dose: 20,000 unit Ferric Sodium Gluconate Complex (Ferrlecit) 125 mg IVPB DAILY [facility] Stop: 08/10/17 10:01 Last Admin: 08/09/17 09:43 Dose: 125 mg Heparin Sodium (Porcine) (Heparin) 5,000 units SC Q12H [facility] Last Admin: 08/09/17 09:43 Dose: 5,000 units Cefepime HCl 1 gm/ Dextrose 50 mls @ 100 mls/hr IVPB DAILY [facility] PRN Reason: Protocol Last Admin: 08/09/17 09:45 Dose: 100 mls/hr Vancomycin/Sodium Chloride (Vancomycin 1 Gm/Ns 200 Ml) 1 gm in 200 mls @ 133.333 mls/hr IVPB Q48H [facility] PRN Reason: Protocol Last Admin: 08/08/17 13:41 Dose: 133.333 mls/hr Insulin Aspart (Novolog) 16 unit SC BID [facility] Last Admin: 08/09/17 10:00 Dose: Not Given Insulin Glargine (Lantus) 16 unit SC HS [facility] Last Admin: 08/08/17 22:02 Dose: Not Given Insulin Human Regular (Novolin R) 0 unit SC ACHS [facility] PRN Reason: Protocol Last Admin: 08/09/17 11:56 Dose: Not Given Labetalol HCl (Normodyne) 300 mg PO Q8H [facility] Last Admin: 08/09/17 08:32 Dose: 300 mg Morphine Sulfate (Morphine) 2 mg IV Q4 PRN PRN Reason: Pain, severe (8-10) Last Admin: 08/09/17 12:30 Dose: 2 mg Ondansetron HCl (Zofran Inj) 4 mg IVP Q6H PRN PRN Reason: Nausea/Vomiting Last Admin: 08/06/17 19:22 Dose: 4 mg Saccharomyces Boulardii (Florastor) 250 mg PO BID [facility] Last Admin: 08/09/17 09:45 Dose: 250 mg Sertraline HCl (Zoloft) 50 mg PO DAILY [facility] Last Admin: 08/09/17 09:45 Dose: 50 mg Sodium Bicarbonate (Sodium Bicarbonate Tab) 650 mg PO Q8 [facility] Last Admin: 08/09/17 05:59 Dose: 650 mg Sodium Hypochlorite (Dakins Solution 0.125%) 0 appl TOP DAILY [facility] Last Admin: 08/09/17 09:59 Dose: Not Given Vitamin B Complex/Vit C/Folic Acid (Nephro-Rosario) 1 tab PO 0800 [facility] Last Admin: 08/09/17 08:32 Dose: 1 tab - Labs Labs: 08/09/17 10:44 08/09/17 10:44 PT 14.4 SECONDS (9.7-12.2) H 08/05/17 14:01 INR 1.3 08/05/17 14:01 APTT 34 SECONDS (21-34) 08/05/17 14:01
--- NOTE | 2017-08-09 18:14 | OP ---
PROCEDURE DATE: 08/06/2017 SURGEON: Kalpesh Coy DPM OPERATOR MAINTAINER: Regine Brand DPM, PGY-1 ANESTHESIOLOGIST: Kirit Starkey DO TYPE OF ANESTHESIA: IV sedation with local, 30 mL of 1:1 mixture of 0.5% Marcaine plain and 2% lidocaine plain. PREOPERATIVE DIAGNOSIS: Left foot non-healing infected diabetic ulceration with abscess formation and underlying osteomyelitis POSTOPERATIVE DIAGNOSIS: Left foot non-healing infected diabetic ulceration with abscess formation and underlying osteomyelitis PROCEDURE: Left forefoot amputation. INDICATIONS: The patient is a 36-year-old female with the above diagnosis. The patient has exhausted all conservative treatment at this time and now requests surgical intervention. The patient signed the consent after careful explanation of risks, benefits, complications, and alternatives for surgical procedure and wishes to proceed. No guarantees were given nor implied. PREPARATION: The patient was brought into the operating room and placed on the operating room table in a supine position. A time-out was performed for identification of the correct patient and procedure. After the induction of IV sedation, approximately 30 mL of a 1:1 mixture of 0.5% Marcaine plain and 2% lidocaine plain was administered in an ankle block fashion to the left lower extremity. A pneumatic ankle tourniquet was applied in the supramalleolar position. The left foot was then prepped and draped in normal sterile manner and the procedure began. DESCRIPTION OF PROCEDURE: Attention was directed to the left foot where it was noted to have three ulcerations of varying stages along with lichenifications throughout the plantar aspect of the forefoot. Utilizing a #10 blade, a circumferential incision was made first dorsally at the metatarsal shafts, leaving more skin and soft tissue plantarly. The dorsal incision was deepened to the level of bone, exposing the metatarsal shafts. At this time, all soft tissue was freed from the shafts of the metatarsal using a periosteal elevator. The bone quality of the metatarsals appeared to be soft and brittle in nature. Upon freeing the soft tissue from the metatarsal, a pocket of purulence was released, located proximal to the metatarsal bases. Approximately 20 mL of purulence was able to be expressed. Two deep cultures were obtained and passed off the operative field to be sent to pathology. At this time, metatarsals 1 to 5 were disarticulated at each respective tarsometatarsal joint, then freed from the plantar flap, and the forefoot was passed off the operative field to be sent to pathology. Next, the proximal aspect of the amputated foot was explored to see if there were any further pockets of purulence. The left foot was noted to have purulence on the dorsal and medial aspects of the soft tissue area of the navicular; approximately 5 mL of purulence was able to be expressed surrounding the navicular. At this time, the navicular was noted to be soft and brittle in nature. It was then disarticulated from the talus. Similarly, the soft tissue surrounding the cuboid was explored to see if there were any remaining pockets of gas and purulence; approximately 5 mL of purulence was able to be expressed surrounding the cuboid. At this time, the cuboid was noted to be soft and brittle in nature. It was then disarticulated from the calcaneus. Both the navicular and cuboid were passed off the operative field to be sent to pathology. The articular surfaces of the talus and calcaneus were examined and noted to be hard in nature. Next using a pulse lavage, the remaining aspects of the left foot were then irrigated with 3L of normal saline. Next using Versajet II system on setting 10, the soft tissue was debrided, removing any remaining aspects of nonviable tissue. Utilizing a curved hemostat, all exposed tendons dorsally and plantarly were pulled distally and transected utilizing a 15 blade. Soft tissue was debulked from the plantar flap to allow for a suitable flap for closure. The plantar tissue was then reapproximated to the distal aspect of the left foot. Deep tissue was re-approximated using 2-0 Vicryl. The superficial subcutaneous tissues was re-approximated using 3-0 Vicryl, and then the skin was re-approximated using 3-0 nylon in a simple interrupted suture technique. The distal lateral aspect of the stump was not closed due to an existing ulceration. A half inch Iodoform packing was placed at the distal lateral stump. The left foot was then dressed with Xeroform, 4x4s, ABDs, Kerlix, Coban, and an RAFFY wrap. POSTOPERATIVE CONDITION: The patient tolerated the anesthesia and procedure well and was escorted to the recovery room with vital signs stable and neurovascular status intact to the left lower extremity. The patient is to be strictly nonweightbearing to the left lower extremity, with no out of bed privileges. Podiatry will continue to follow the patient while the patient remains in house. Regine Brand DPM Kalpesh Coy DPM [facility]
[2017-08-09] MEDS: (Lantus) Insulin Glargine, Recombinant SC SCH (22:07)
--- NOTE | 2017-08-09 22:43 | CP.PCM.PN ---
Subjective - Date & Time of Evaluation Date of Evaluation: 08/09/17 Time of Evaluation: 20:20 - Subjective Subjective: Has some surgical related pain. Objective - Vital Signs/Intake and Output Vital Signs (last 24 hours): Temp Pulse Resp BP Pulse Ox 98.2 F 79 20 152/90 H 100 08/09/17 16:17 08/09/17 17:45 08/09/17 16:17 08/09/17 17:45 08/09/17 08:22 Intake and Output: 08/09/17 08/10/17 18:59 06:59 Intake Total 450 500 Output Total 600 400 Balance -150 100 - Medications Medications: Current Medications Acetaminophen (Tylenol 325mg Tab) 650 mg PO ONCE PRN PRN Reason: Fever >100.4 F Amlodipine Besylate (Norvasc) 10 mg PO DAILY [facility] Last Admin: 08/09/17 09:44 Dose: 10 mg Calcitriol (Rocaltrol) 0.25 mcg PO TTS [facility] Last Admin: 08/07/17 09:27 Dose: 0.25 mcg Epoetin Anival (Procrit) 20,000 unit SC TTS [facility] Last Admin: 08/07/17 10:22 Dose: 20,000 unit Ferric Sodium Gluconate Complex (Ferrlecit) 125 mg IVPB DAILY [facility] Stop: 08/10/17 10:01 Last Admin: 08/09/17 09:43 Dose: 125 mg Heparin Sodium (Porcine) (Heparin) 5,000 units SC Q12H [facility] Last Admin: 08/09/17 22:06 Dose: 5,000 units Cefepime HCl 1 gm/ Dextrose 50 mls @ 100 mls/hr IVPB DAILY [facility] PRN Reason: Protocol Last Admin: 08/09/17 09:45 Dose: 100 mls/hr Vancomycin/Sodium Chloride (Vancomycin 1 Gm/Ns 200 Ml) 1 gm in 200 mls @ 133.333 mls/hr IVPB Q48H [facility] PRN Reason: Protocol Last Admin: 08/08/17 13:41 Dose: 133.333 mls/hr Insulin Aspart (Novolog) 16 unit SC BID [facility] Last Admin: 08/09/17 17:20 Dose: Not Given Insulin Glargine (Lantus) 16 unit SC HS [facility] Last Admin: 08/09/17 22:07 Dose: 16 unit Insulin Human Regular (Novolin R) 0 unit SC ACHS [facility] PRN Reason: Protocol Last Admin: 08/09/17 21:32 Dose: Not Given Labetalol HCl (Normodyne) 300 mg PO Q8H [facility] Last Admin: 08/09/17 17:52 Dose: 300 mg Morphine Sulfate (Morphine) 2 mg IV Q4 PRN PRN Reason: Pain, severe (8-10) Last Admin: 08/09/17 22:08 Dose: 2 mg Ondansetron HCl (Zofran Inj) 4 mg IVP Q6H PRN PRN Reason: Nausea/Vomiting Last Admin: 08/06/17 19:22 Dose: 4 mg Saccharomyces Boulardii (Florastor) 250 mg PO BID [facility] Last Admin: 08/09/17 17:52 Dose: 250 mg Sertraline HCl (Zoloft) 50 mg PO DAILY [facility] Last Admin: 08/09/17 09:45 Dose: 50 mg Sodium Bicarbonate (Sodium Bicarbonate Tab) 650 mg PO Q8 [facility] Last Admin: 08/09/17 22:07 Dose: 650 mg Sodium Hypochlorite (Dakins Solution 0.125%) 0 appl TOP DAILY [facility] Last Admin: 08/09/17 09:59 Dose: Not Given Vitamin B Complex/Vit C/Folic Acid (Nephro-Rosario) 1 tab PO 0800 [facility] Last Admin: 08/09/17 08:32 Dose: 1 tab - Labs Labs: 08/09/17 10:44 08/09/17 10:44 PT 14.4 SECONDS (9.7-12.2) H 08/05/17 14:01 INR 1.3 08/05/17 14:01 APTT 34 SECONDS (21-34) 08/05/17 14:01 - Head Exam Head Exam: ATRAUMATIC - Eye Exam Eye Exam: Normal appearance - ENT Exam ENT Exam: Mucous Membranes Dry - Respiratory Exam Respiratory Exam: NORMAL BREATHING PATTERN - Cardiovascular Exam Cardiovascular Exam: +S1, +S2 - GI/Abdominal Exam GI & Abdominal Exam: Normal Bowel Sounds Assessment and Plan (1) Anemia Assessment & Plan: multifactorial anemia of chronic disease from osteomyelitis anemia of CKD anemia of HIV on KIT to decrease transfusion requirements. transfusion support PRN Status: Acute (2) Monoclonal gammopathy Assessment & Plan: + monoclonal protein detected in urine abnormal free light chain ratio skeletal survey to evaluate for lytic lesions possible bone marrow +/- kidney biopsy Status: Acute
[2017-08-10] MEDS: Labetalol Hydrochloride 300 mg Tab PO SCH ×4 (00:04→23:52)
--- NOTE | 2017-08-10 03:03 | PN ---
DATE: 08/09/2017 FOLLOWUP RENAL CONSULTATION LOCATION: The patient is located in room 4 in 570, bed A. REQUESTED BY: Art Nathan MD REASON FOR FOLLOWUP: Acute renal failure, chronic kidney disease stage IV, anemia, secondary hyperparathyroidism, hyperkalemia, and metabolic acidosis. HISTORY OF PRESENT ILLNESS: Mrs. Johnson is a 36 years old young transgender -[place]ien female with a past medical history significant for longstanding hypertension, diabetes, HIV positive, nephrotic range proteinuria, chronic kidney disease, hyperkalemia, metabolic acidosis, anemia, secondary hyperparathyroidism, Charcot's foot with osteomyelitis of the left foot status post amputation of the forefoot amputation left side and also status post transfusion of PRBC x2 during this admission for anemia. The patient is not in acute distress. No complaints. No chest pain or palpitation. No fever. No cough. PHYSICAL EXAMINATION: VITAL SIGNS: This morning as follows; blood pressure 165/105, pulse 82, respirations 20, temperature 98.1, saturation 100%. Height 6 feet 3 inches and weight is 280 pounds. GENERAL: Mrs. Johnson is a 36 years old young transgender -[place] female with external male appearance, well built, well nourished, not in distress. HEENT: Pupils normal and reactive to light and accommodation. Conjunctivae pink. Sclerae anicteric. Tongue is moist. Trachea is midline. LUNGS: Symmetric on both sides. Bilateral breath sounds present. Clear to auscultation. CVS: [place] at the fifth intercostal space, midclavicular line. S1, S2 audible. No murmur or gallop. ABDOMEN: Normal in appearance, soft, tympanic. No guarding. No rigidity. No hepatosplenomegaly. BLUNGER: Patient is alert, awake, and oriented x3. Nonfocal neuro examination. Cranial nerves II through XII grossly intact. Sensory and motor system is within normal limits. EXTREMITIES: No cyanosis, no clubbing, no edema on the right leg. The patient has a dressing to the left leg. CURRENT MEDICATIONS: Include as follows; cefepime 1 gm daily, Ferrlecit 125 mg IV piggyback daily, Florastor 250 mg p.o. b.i.d., heparin 5000 units subcu every 12 hours, Lantus 16 units subcu at bedtime, morphine 2 mg IV every 4 hours p.r.n., Nephro-Rosario 1 tablet daily, labetalol 300 mg p.o. every 8 hours, amlodipine 10 mg daily, insulin aspart (NovoLog) 60 units subcu b.i.d., Procrit 20,000 units 3 times a week, calcitriol 0.25 mcg p.o. three times a week, sodium bicarb 650 mg p.o. every 8 hours, Tylenol and vancomycin 1 gm every 48 hours, Zofran 4 mg IV every 6 hours p.r.n., and Zoloft 50 mg p.o. daily. LABORATORY DATA: Include as follows as of 08/09/2017; WBC 10.7, hemoglobin 8.3, hematocrit is 24.7, platelets 443. Sodium 142, potassium 5.6, chloride 109, CO2 of 22, BUN 41, creatinine 4.0, glucose 92, calcium 8.9, total bili 0.6, AST 53, ALT 27, alkaline phosphatase 308, total protein 8.8, albumin is 2.8. Accu-Cheks 94, 121. Wound culture positive for Staph coag negative as of 08/06/2017. IMPRESSION AND PLAN: In summary, Mrs. Johnson is a 36 years old young transgender -[place] female with hypertension, diabetes, human immunodeficiency virus positive, noncompliance of medication, Charcot's foot, osteomyelitis status post amputation of the left forefoot, anemia, hyperkalemia, metabolic acidosis, secondary hyperparathyroidism status post multiple transfusions and positive monoclonal protein. 1. Acute renal failure on chronic kidney disease, rule out diabetic nephropathy, rule out chronic glomerulonephritis such as focal segmental glomerulonephritis rule out multiple myeloma. 2. Anemia secondary to renal failure, sepsis, chronic kidney disease, iron deficiency and human immunodeficiency virus, rule out multiple myeloma. The patient may need a bone marrow biopsy to rule out multiple myeloma. 3. Hypertension. Blood pressure is still high, continue Norvasc and labetalol and titrate as needed and also continue low-sodium, low-potassium diet. The patient is very noncompliant with diet. 4. Uncontrolled diabetes. 5. Secondary hyperparathyroidism. 6. Hyperkalemia. Agree with Kayexalate in this morning. Follow up BMP in a.m. Thank you for allowing me to participate in your patient's care. Weston Brambila MD [facility] # [id number]
[2017-08-10] MEDS: Multivitamin Vitamin B Complex (Nephro-Vite) Tab PO SCH (08:21)
[2017-08-10] MEDS: (Novolin R) Insulin Human Regular 100 units/ml vial SC SCH ×4 (08:22→21:26)
--- NOTE | 2017-08-10 08:57 | CP.PCM.PN ---
Subjective - Date & Time of Evaluation Date of Evaluation: 08/10/17 Time of Evaluation: 08:56 - Subjective Subjective: pt is seen and examined, follow up consult is dictated #[id number] Objective - Vital Signs/Intake and Output Vital Signs (last 24 hours): Temp Pulse Resp BP Pulse Ox 98.1 F 88 20 148/75 95 08/10/17 00:00 08/10/17 00:00 08/10/17 00:00 08/10/17 05:00 08/10/17 00:00 Intake and Output: 08/10/17 08/10/17 06:59 18:59 Intake Total 500 Output Total 400 Balance 100 - Medications Medications: Current Medications Acetaminophen (Tylenol 325mg Tab) 650 mg PO ONCE PRN PRN Reason: Fever >100.4 F Amlodipine Besylate (Norvasc) 10 mg PO DAILY [facility] Last Admin: 08/09/17 09:44 Dose: 10 mg Calcitriol (Rocaltrol) 0.25 mcg PO TTS [facility] Last Admin: 08/07/17 09:27 Dose: 0.25 mcg Epoetin Anival (Procrit) 20,000 unit SC TTS [facility] Last Admin: 08/07/17 10:22 Dose: 20,000 unit Ferric Sodium Gluconate Complex (Ferrlecit) 125 mg IVPB DAILY [facility] Stop: 08/10/17 10:01 Last Admin: 08/09/17 09:43 Dose: 125 mg Heparin Sodium (Porcine) (Heparin) 5,000 units SC Q12H [facility] Last Admin: 08/09/17 22:06 Dose: 5,000 units Cefepime HCl 1 gm/ Dextrose 50 mls @ 100 mls/hr IVPB DAILY [facility] PRN Reason: Protocol Last Admin: 08/09/17 09:45 Dose: 100 mls/hr Vancomycin/Sodium Chloride (Vancomycin 1 Gm/Ns 200 Ml) 1 gm in 200 mls @ 133.333 mls/hr IVPB Q48H [facility] PRN Reason: Protocol Last Admin: 08/08/17 13:41 Dose: 133.333 mls/hr Insulin Aspart (Novolog) 16 unit SC BID [facility] [place] Last Admin: 08/09/17 17:20 Dose: Not Given Insulin Glargine (Lantus) 16 unit SC HS [facility] [place] Last Admin: 08/09/17 22:07 Dose: 16 unit Insulin Human Regular (Novolin R) 0 unit SC ACHS [facility] PRN Reason: Protocol Last Admin: 08/09/17 21:32 Dose: Not Given Labetalol HCl (Normodyne) 300 mg PO Q8H [facility] [place] Last Admin: 08/10/17 00:04 Dose: 300 mg Morphine Sulfate (Morphine) 2 mg IV Q4 PRN PRN Reason: Pain, severe (8-10) Last Admin: 08/10/17 07:10 Dose: 2 mg Ondansetron HCl (Zofran Inj) 4 mg IVP Q6H PRN PRN Reason: Nausea/Vomiting Last Admin: 08/06/17 19:22 Dose: 4 mg Saccharomyces Boulardii (Florastor) 250 mg PO BID [facility] [place] Last Admin: 08/09/17 17:52 Dose: 250 mg Sertraline HCl (Zoloft) 50 mg PO DAILY [facility] [place] Last Admin: 08/09/17 09:45 Dose: 50 mg Sodium Bicarbonate (Sodium Bicarbonate Tab) 650 mg PO Q8 [facility] [place] Last Admin: 08/10/17 06:24 Dose: 650 mg Sodium Hypochlorite (Dakins Solution 0.125%) 0 appl TOP DAILY [facility] Last Admin: 08/09/17 09:59 Dose: Not Given Vitamin B Complex/Vit C/Folic Acid (Nephro-Rosario) 1 tab PO 0800 [facility] Last Admin: 08/09/17 08:32 Dose: 1 tab - Labs Labs: 08/09/17 10:44 08/09/17 10:44 PT 14.4 SECONDS (9.7-12.2) H 08/05/17 14:01 INR 1.3 08/05/17 14:01 APTT 34 SECONDS (21-34) 08/05/17 14:01
--- NOTE | 2017-08-10 09:43 | CP.PCM.PN ---
Subjective - Date & Time of Evaluation Date of Evaluation: 08/10/17 Time of Evaluation: 09:43 - Subjective Subjective: Podiatry Progress note for Dr. Coy 36 year old female seen at bedside today with attending, Dr. Coy 4 days s/p L foot Chopart's amputation. She denies any pain or discomfort at this time, feels well overall. Says that she has tried to keep foot elevated as much as possible. Discussed importance of remaining non-WB to LLE. Denies f/n/v/c/sob/ cp at this time. No other pedal complaints today. Objective - Vital Signs/Intake and Output Vital Signs (last 24 hours): Temp Pulse Resp BP Pulse Ox 98.7 F 81 20 167/95 H 100 08/10/17 07:30 08/10/17 07:30 08/10/17 07:30 08/10/17 07:30 08/10/17 07:30 Intake and Output: 08/10/17 08/10/17 06:59 18:59 Intake Total 500 Output Total 400 Balance 100 - Medications Medications: Current Medications Acetaminophen (Tylenol 325mg Tab) 650 mg PO ONCE PRN PRN Reason: Fever >100.4 F Amlodipine Besylate (Norvasc) 10 mg PO DAILY [facility] Last Admin: 08/09/17 09:44 Dose: 10 mg Calcitriol (Rocaltrol) 0.25 mcg PO TTS [facility] Last Admin: 08/07/17 09:27 Dose: 0.25 mcg Epoetin Anival (Procrit) 20,000 unit SC TTS [facility] Last Admin: 08/07/17 10:22 Dose: 20,000 unit Ferric Sodium Gluconate Complex (Ferrlecit) 125 mg IVPB DAILY [facility] Stop: 08/10/17 10:01 Last Admin: 08/09/17 09:43 Dose: 125 mg Heparin Sodium (Porcine) (Heparin) 5,000 units SC Q12H [facility] Last Admin: 08/09/17 22:06 Dose: 5,000 units Cefepime HCl 1 gm/ Dextrose 50 mls @ 100 mls/hr IVPB DAILY [facility] PRN Reason: Protocol Last Admin: 08/09/17 09:45 Dose: 100 mls/hr Vancomycin/Sodium Chloride (Vancomycin 1 Gm/Ns 200 Ml) 1 gm in 200 mls @ 133.333 mls/hr IVPB Q48H [facility] PRN Reason: Protocol Last Admin: 08/08/17 13:41 Dose: 133.333 mls/hr Insulin Aspart (Novolog) 16 unit SC BID [facility] Last Admin: 08/09/17 17:20 Dose: Not Given Insulin Glargine (Lantus) 16 unit SC HS [facility] Last Admin: 08/09/17 22:07 Dose: 16 unit Insulin Human Regular (Novolin R) 0 unit SC ACHS [facility] PRN Reason: Protocol Last Admin: 08/09/17 21:32 Dose: Not Given Labetalol HCl (Normodyne) 300 mg PO Q8H [facility] Last Admin: 08/10/17 00:04 Dose: 300 mg Morphine Sulfate (Morphine) 2 mg IV Q4 PRN PRN Reason: Pain, severe (8-10) Last Admin: 08/10/17 07:10 Dose: 2 mg Ondansetron HCl (Zofran Inj) 4 mg IVP Q6H PRN PRN Reason: Nausea/Vomiting Last Admin: 08/06/17 19:22 Dose: 4 mg Saccharomyces Boulardii (Florastor) 250 mg PO BID [facility] Last Admin: 08/09/17 17:52 Dose: 250 mg Sertraline HCl (Zoloft) 50 mg PO DAILY [facility] Last Admin: 08/09/17 09:45 Dose: 50 mg Sodium Bicarbonate (Sodium Bicarbonate Tab) 650 mg PO Q8 [facility] Last Admin: 08/10/17 06:24 Dose: 650 mg Sodium Hypochlorite (Dakins Solution 0.125%) 0 appl TOP DAILY [facility] Last Admin: 08/09/17 09:59 Dose: Not Given Vitamin B Complex/Vit C/Folic Acid (Nephro-Rosario) 1 tab PO 0800 [facility] Last Admin: 08/09/17 08:32 Dose: 1 tab - Labs Labs: 08/09/17 10:44 08/09/17 10:44 PT 14.4 SECONDS (9.7-12.2) H 08/05/17 14:01 INR 1.3 08/05/17 14:01 APTT 34 SECONDS (21-34) 08/05/17 14:01 - Constitutional Appears: Well, Non-toxic, No Acute Distress - Extremities Exam Additional comments: Left Lower Extremity exam: dressing appears c/d/i with no strikethrough evident VASC- DP pulse faintly palpable, skin temp runs warm to warm, minimal non- pitting edema noted on the distal extremity proximal to the ankle joint DERM- surgical site remains intact with surgical site well coapted, no dehiscence, capri-surgical site appears macerated with gross lichenification of pedal skin, medial surgical site appears to less macerated, the lateral distal stump site has a circular opening which measures approx 1 cm x 1 cm with a significant amount of depth, sinus track through the open site tracks medially dorsomedially, proximally and distally, no active drainage up on pressure from all direction towards the opening, no malodor present NEURO- gross and protective pedal sensation are diminished ORTHO- minimal tenderness noted to palp of the surgical site - Neurological Exam Neurological Exam: Alert, Awake, Oriented x3 - Psychiatric Exam Psychiatric exam: Normal Affect, Normal Mood Assessment and Plan - Assessment and Plan (Free Text) Assessment: 36 year old female patient seen 4 days s/p Chopart's amputation Plan: Patient examined and evaluated at bedside with Dr. Coy Labs and vitals reviewed - afebrile; WBC trending down 10.7 today packing left in place today, to be advanced tomorrow dressing change with betadine soaked /4, DSD, kerlix, coban Intra-op wound cultures: Coagulase Neg Staph c/w IV abx as per ID Dr. Del Valle Continue pain mgt per primary team c/w NWB to LLE with crutches stable, will follow
[2017-08-10] MEDS: Ferric Sodium Gluconat Complex 62.5 mg/5 ml Vial IVPB SCH (10:20)
[2017-08-10] MEDS: Saccharomyces Boulardi 250 mg Cap PO SCH ×2 (10:21→17:33)
[2017-08-10] MEDS: (Novolog) Insulin Aspart, Recombinant 100 u/ml 10 ml vial SC SCH ×2 (10:22→18:40)
--- NOTE | 2017-08-10 11:19 | CP.PCM.PN ---
Subjective - Date & Time of Evaluation Date of Evaluation: 08/10/17 Time of Evaluation: 09:00 - Subjective Subjective: s/p TMA improving Objective - Vital Signs/Intake and Output Vital Signs (last 24 hours): Temp Pulse Resp BP Pulse Ox 98.7 F 81 20 167/95 H 100 08/10/17 07:30 08/10/17 07:30 08/10/17 07:30 08/10/17 07:30 08/10/17 07:30 Intake and Output: 08/10/17 08/10/17 06:59 18:59 Intake Total 500 Output Total 400 Balance 100 - Medications Medications: Current Medications Acetaminophen (Tylenol 325mg Tab) 650 mg PO ONCE PRN PRN Reason: Fever >100.4 F Amlodipine Besylate (Norvasc) 10 mg PO DAILY [facility] Last Admin: 08/10/17 10:21 Dose: 10 mg Calcitriol (Rocaltrol) 0.25 mcg PO TTS [facility] Last Admin: 08/10/17 10:21 Dose: 0.25 mcg Epoetin Anival (Procrit) 20,000 unit SC TTS [facility] Last Admin: 08/07/17 10:22 Dose: 20,000 unit Heparin Sodium (Porcine) (Heparin) 5,000 units SC Q12H [facility] Last Admin: 08/10/17 10:21 Dose: 5,000 units Cefepime HCl 1 gm/ Dextrose 50 mls @ 100 mls/hr IVPB DAILY [facility] PRN Reason: Protocol Last Admin: 08/10/17 10:23 Dose: 100 mls/hr Vancomycin/Sodium Chloride (Vancomycin 1 Gm/Ns 200 Ml) 1 gm in 200 mls @ 133.333 mls/hr IVPB Q48H [facility] PRN Reason: Protocol Last Admin: 08/08/17 13:41 Dose: 133.333 mls/hr Insulin Aspart (Novolog) 16 unit SC BID [facility] Last Admin: 08/10/17 10:22 Dose: Not Given Insulin Glargine (Lantus) 16 unit SC HS [facility] Last Admin: 08/09/17 22:07 Dose: 16 unit Insulin Human Regular (Novolin R) 0 unit SC ACHS [facility] PRN Reason: Protocol Last Admin: 08/10/17 08:22 Dose: 2 unit Labetalol HCl (Normodyne) 300 mg PO Q8H [facility] Last Admin: 08/10/17 08:21 Dose: 300 mg Morphine Sulfate (Morphine) 2 mg IV Q4 PRN PRN Reason: Pain, severe (8-10) Last Admin: 08/10/17 07:10 Dose: 2 mg Ondansetron HCl (Zofran Inj) 4 mg IVP Q6H PRN PRN Reason: Nausea/Vomiting Last Admin: 08/06/17 19:22 Dose: 4 mg Saccharomyces Boulardii (Florastor) 250 mg PO BID [facility] Last Admin: 08/10/17 10:21 Dose: 250 mg Sertraline HCl (Zoloft) 50 mg PO DAILY [facility] Last Admin: 08/10/17 10:22 Dose: 50 mg Sodium Bicarbonate (Sodium Bicarbonate Tab) 650 mg PO Q8 [facility] Last Admin: 08/10/17 06:24 Dose: 650 mg Sodium Hypochlorite (Dakins Solution 0.125%) 0 appl TOP DAILY [facility] Last Admin: 08/10/17 10:23 Dose: 20 appl Vitamin B Complex/Vit C/Folic Acid (Nephro-Rosario) 1 tab PO 0800 [facility] Last Admin: 08/10/17 08:21 Dose: 1 tab - Labs Labs: 08/09/17 10:44 08/09/17 10:44 PT 14.4 SECONDS (9.7-12.2) H 08/05/17 14:01 INR 1.3 08/05/17 14:01 APTT 34 SECONDS (21-34) 08/05/17 14:01 - Constitutional Appears: Non-toxic, Chronically Ill - Head Exam Head Exam: NORMOCEPHALIC - Eye Exam Eye Exam: PERRL - ENT Exam ENT Exam: Mucous Membranes Dry - Neck Exam Neck Exam: absent: Lymphadenopathy - Respiratory Exam Respiratory Exam: Decreased Breath Sounds - Cardiovascular Exam Cardiovascular Exam: REGULAR RHYTHM - GI/Abdominal Exam GI & Abdominal Exam: Distended - Rectal Exam Rectal Exam: Deferred Assessment and Plan (1) Anemia Status: Acute (2) Chronic ulcer of left leg Status: Chronic (3) HIV disease Status: Chronic (4) GAEL (acute kidney injury) Status: Acute (5) Abscess and cellulitis Status: Acute
[2017-08-10] MEDS: Epoetin Alfa Dialysis 20000 UNIT/ML Inj SC SCH (11:20)
--- NOTE | 2017-08-10 12:35 | CP.PCM.PN ---
Subjective - Date & Time of Evaluation Date of Evaluation: 08/10/17 Time of Evaluation: 12:33 - Subjective Subjective: CONDITION SAME. HB 8.8 CRF. LT FOOT INF PRESENT. DISCUSSED WITH DR. JIN FOR ANEMIA. PT ADVISED BONE MARROW BIOPSY. REFUSES AT THIS TIME. Objective - Vital Signs/Intake and Output Vital Signs (last 24 hours): Temp Pulse Resp BP Pulse Ox 98.7 F 81 20 167/95 H 100 08/10/17 07:30 08/10/17 07:30 08/10/17 07:30 08/10/17 07:30 08/10/17 07:30 Intake and Output: 08/10/17 08/10/17 06:59 18:59 Intake Total 500 Output Total 400 Balance 100 - Medications Medications: Current Medications Acetaminophen (Tylenol 325mg Tab) 650 mg PO ONCE PRN PRN Reason: Fever >100.4 F Amlodipine Besylate (Norvasc) 10 mg PO DAILY [facility] Last Admin: 08/10/17 10:21 Dose: 10 mg Calcitriol (Rocaltrol) 0.25 mcg PO TTS [facility] Last Admin: 08/10/17 10:21 Dose: 0.25 mcg Epoetin Anival (Procrit) 20,000 unit SC TTS [facility] Last Admin: 08/10/17 11:20 Dose: 20,000 unit Heparin Sodium (Porcine) (Heparin) 5,000 units SC Q12H [facility] Last Admin: 08/10/17 10:21 Dose: 5,000 units Cefepime HCl 1 gm/ Dextrose 50 mls @ 100 mls/hr IVPB DAILY [facility] PRN Reason: Protocol Last Admin: 08/10/17 10:23 Dose: 100 mls/hr Vancomycin/Sodium Chloride (Vancomycin 1 Gm/Ns 200 Ml) 1 gm in 200 mls @ 133.333 mls/hr IVPB Q48H [facility] PRN Reason: Protocol Last Admin: 08/08/17 13:41 Dose: 133.333 mls/hr Insulin Aspart (Novolog) 16 unit SC BID [facility] Last Admin: 08/10/17 10:22 Dose: Not Given Insulin Glargine (Lantus) 16 unit SC HS [facility] Last Admin: 08/09/17 22:07 Dose: 16 unit Insulin Human Regular (Novolin R) 0 unit SC ACHS [facility] PRN Reason: Protocol Last Admin: 08/10/17 08:22 Dose: 2 unit Labetalol HCl (Normodyne) 300 mg PO Q8H [facility] Last Admin: 08/10/17 08:21 Dose: 300 mg Morphine Sulfate (Morphine) 2 mg IV Q4 PRN PRN Reason: Pain, severe (8-10) Last Admin: 08/10/17 11:20 Dose: 2 mg Ondansetron HCl (Zofran Inj) 4 mg IVP Q6H PRN PRN Reason: Nausea/Vomiting Last Admin: 08/06/17 19:22 Dose: 4 mg Saccharomyces Boulardii (Florastor) 250 mg PO BID [facility] Last Admin: 08/10/17 10:21 Dose: 250 mg Sertraline HCl (Zoloft) 50 mg PO DAILY [facility] Last Admin: 08/10/17 10:22 Dose: 50 mg Sodium Bicarbonate (Sodium Bicarbonate Tab) 650 mg PO Q8 [facility] Last Admin: 08/10/17 06:24 Dose: 650 mg Sodium Hypochlorite (Dakins Solution 0.125%) 0 appl TOP DAILY [facility] Last Admin: 08/10/17 10:23 Dose: 20 appl Vitamin B Complex/Vit C/Folic Acid (Nephro-Rosario) 1 tab PO 0800 [facility] Last Admin: 08/10/17 08:21 Dose: 1 tab - Labs Labs: 08/09/17 10:44 08/09/17 10:44 PT 14.4 SECONDS (9.7-12.2) H 08/05/17 14:01 INR 1.3 08/05/17 14:01 APTT 34 SECONDS (21-34) 08/05/17 14:01 - Constitutional Appears: No Acute Distress, Chronically Ill - Eye Exam Eye Exam: EOMI, Normal appearance, PERRL Pupil Exam: NORMAL ACCOMODATION, PERRL - ENT Exam ENT Exam: Mucous Membranes Moist, Normal Exam - Neck Exam Neck Exam: Full ROM, Normal Inspection. absent: Lymphadenopathy - Respiratory Exam Respiratory Exam: Clear to Ausculation Bilateral, NORMAL BREATHING PATTERN - Cardiovascular Exam Cardiovascular Exam: REGULAR RHYTHM, +S1, +S2. absent: Murmur - Extremities Exam Extremities Exam: Full ROM, Normal Capillary Refill, Normal Inspection. absent : Joint Swelling, Pedal Edema - Back Exam Back Exam: NORMAL INSPECTION - Neurological Exam Neurological Exam: Alert, Awake, CN II-XII Intact, Normal Gait, Oriented x3 - Psychiatric Exam Psychiatric exam: Normal Affect, Normal Mood Assessment and Plan - Assessment and Plan (Free Text) Assessment: SAME. Plan: CT PRESENT TREATMENT.
[2017-08-10] MEDS: Vancomycin 1 gm/NS 200 ml 1 GM/200 ML BAG IVPB SCH (14:17)
[2017-08-10] MEDS: Morphine 4 MG/ML VIAL IV PRN ×2 (17:33→21:56)
[2017-08-10] MEDS: (Lantus) Insulin Glargine, Recombinant SC SCH (21:58)
[2017-08-10] MEDS ORDERED: DiphenhydrAMINE 50 mg/ml Inj IVP STA (23:38)
[2017-08-11] MEDS: Morphine 4 MG/ML VIAL IV PRN ×6 (03:10→23:59)
[2017-08-11] MEDS: (Novolin R) Insulin Human Regular 100 units/ml vial SC SCH ×4 (07:31→21:34)
--- NOTE | 2017-08-11 08:30 | PN ---
DATE: 08/10/2017 FOLLOWUP RENAL CONSULTATION LOCATION: The patient is located in room number 572, bed A. REQUESTED BY: Art Nathan MD SUBJECTIVE: Mrs. Johnson is a 36-year-old young transgender female with a past medical history significant for hypertension, diabetes, proteinuria, chronic kidney disease, anemia, secondary hyperparathyroidism, metabolic acidosis with Charcot's foot and osteomyelitis of the left foot, noncompliance with the medication and treatment who was admitted with the her drainage from the left leg and subsequently, the patient underwent transmetatarsal amputation of the left foot, the last week Wednesday. The patient was also received transfusion 2 units of packed RBC, again second time during this admission. Now, the patient is not in acute distress and denies any complaints. Refusing bone marrow biopsy and does not want any biopsy. The patient claims she does not want to undergo all the procedures and does not want to be she feels like that. The patient is not in distress. PHYSICAL EXAMINATION: VITAL SIGNS: Blood pressure of 167/95, pulse of 81, respirations of 20, temperature of 98.7, and oxygen saturation of 100%. Height is 6 feet 3 inches and weight is 280 pounds. GENERAL: Mrs. Johnson is a 36-year-old young transgender female, well-built and well-nourished, not in distress. HEENT: Pupils are normal and reactive to light and accommodation. Conjunctivae are pink. Sclerae are anicteric. Tongue is moist. Trachea is midline. LUNGS: Symmetric on both sides. Bilateral breath sounds present. Clear on auscultation. CARDIOVASCULAR SYSTEM: Richardson at the fifth intercostal space, midclavicular line. S1 and S2 audible. No murmur or gallop. ABDOMEN: Normal in appearance, soft. and tympanic. No guarding. No rigidity. No hepatosplenomegaly. CENTRAL NERVOUS SYSTEM: The patient is alert, awake, and oriented x3. Nonfocal neuro examination. Cranial nerves II through XII grossly intact. Sensory and motor system is within normal limits. EXTREMITIES: No cyanosis. No clubbing. No edema on the right leg and status post TMA on the left leg and the patient has a dressing to the left . Left leg was swollen for longtime of below the knee. CURRENT MEDICATIONS: Include as follows; cefepime 1 mg daily, Florastor 250 mg p.o. b.i.d., subcutaneous heparin 5000 units every 12 hours, Lantus 16 units subcutaneous at bedtime and morphine 2 mg IV every 4 hours, Nephro-Rosario 1 tablet daily, labetalol 300 mg p.o. every 8 hours, amlodipine 10 mg daily, NovoLog 16 units subcutaneous b.i.d., Procrit 20,000 units subcutaneous three time a day, Rocaltrol 0.25 mcg three times a week, sodium bicarb 650 mg p.o. every 8 hours, Tylenol 650 p.r.n., vancomycin 1 g every 48 hours, Zofran 4 mg IV every 6 hours, and Zoloft 50 mg p.o. daily. LABORATORY DATA: No new labs available for today. Accu-Cheks of 121, 210 and 175. ASSESSMENT: In summary, Mrs. Johnson is a 36-year-old young transgender female with hypertension, diabetes, nephrotic range proteinuria, chronic kidney disease, anemia, metabolic acidosis, hyperkalemia, secondary hyperparathyroidism, Charcot's foot, osteomyelitis, status post left transmetatarsal amputation and multiple transfusions about three times in the last one month. Refusing bone marrow biopsy. 1. Acute renal failure on chronic kidney disease versus progression of chronic kidney disease now secondary to infection cannot rule out diabetic nephropathy, cannot rule out underlying chronic glomerulonephritis such as multiple myeloma. 2. Anemia secondary to multifactorial iron deficiency, chronic kidney disease, infection osteomyelitis and human immunodeficiency, cannot rule out multiple myeloma again. 3. Metabolic acidosis. Continue sodium bicarbonate three times a day 650 mg. 4. Secondary hyperparathyroidism. Continue Rocaltrol three times a week 0.25 mcg and continue antibiotics as per vancomycin and cefepime. Overall prognosis is extremely poor due to noncompliance and case discussed with . Thank you for allowing me to participate in your patient's care. Continue her current medications. management and followup the electrolytes and hemoglobin as per the primary team. Weston Brambila MD [facility] # [id number]
[2017-08-11] MEDS: Multivitamin Vitamin B Complex (Nephro-Vite) Tab PO SCH (08:46)
[2017-08-11] MEDS: Labetalol Hydrochloride 300 mg Tab PO SCH ×2 (08:46→16:58)
[2017-08-11] MEDS: Saccharomyces Boulardi 250 mg Cap PO SCH ×2 (09:46→16:59)
--- NOTE | 2017-08-11 09:54 | CP.PCM.PN ---
Subjective - Date & Time of Evaluation Date of Evaluation: 08/11/17 - Subjective Subjective: Hematology-Oncology Progress Note- Dr. Mcfarlane's service Objective - Vital Signs/Intake and Output Vital Signs (last 24 hours): Temp Pulse Resp BP Pulse Ox 98.1 F 79 20 179/98 H 100 08/11/17 08:09 08/11/17 08:09 08/11/17 08:09 08/11/17 08:09 08/11/17 08:09 - Medications Medications: Current Medications Acetaminophen (Tylenol 325mg Tab) 650 mg PO ONCE PRN PRN Reason: Fever >100.4 F Amlodipine Besylate (Norvasc) 10 mg PO DAILY [facility] Last Admin: 08/11/17 09:46 Dose: 10 mg Calcitriol (Rocaltrol) 0.25 mcg PO TTS [facility] Last Admin: 08/10/17 10:21 Dose: 0.25 mcg Epoetin Anival (Procrit) 20,000 unit SC TTS [facility] Last Admin: 08/10/17 11:20 Dose: 20,000 unit Heparin Sodium (Porcine) (Heparin) 5,000 units SC Q12H [facility] Last Admin: 08/11/17 09:47 Dose: 5,000 units Cefepime HCl 1 gm/ Dextrose 50 mls @ 100 mls/hr IVPB DAILY [facility] PRN Reason: Protocol Last Admin: 08/11/17 09:47 Dose: 100 mls/hr Vancomycin/Sodium Chloride (Vancomycin 1 Gm/Ns 200 Ml) 1 gm in 200 mls @ 133.333 mls/hr IVPB Q48H [facility] PRN Reason: Protocol Last Admin: 08/10/17 14:17 Dose: 133.333 mls/hr Insulin Aspart (Novolog) 16 unit SC BID [facility] Last Admin: 08/10/17 18:40 Dose: Not Given Insulin Glargine (Lantus) 16 unit SC HS [facility] Last Admin: 08/10/17 21:58 Dose: 16 unit Insulin Human Regular (Novolin R) 0 unit SC ACHS [facility] PRN Reason: Protocol Last Admin: 08/11/17 07:31 Dose: Not Given Labetalol HCl (Normodyne) 300 mg PO Q8H [facility] Last Admin: 08/11/17 08:46 Dose: 300 mg Morphine Sulfate (Morphine) 2 mg IV Q4 PRN PRN Reason: Pain, severe (8-10) Last Admin: 08/11/17 07:02 Dose: 2 mg Ondansetron HCl (Zofran Inj) 4 mg IVP Q6H PRN PRN Reason: Nausea/Vomiting Last Admin: 08/06/17 19:22 Dose: 4 mg Saccharomyces Boulardii (Florastor) 250 mg PO BID [facility] Last Admin: 08/11/17 09:46 Dose: 250 mg Sertraline HCl (Zoloft) 50 mg PO DAILY [facility] Last Admin: 08/11/17 09:46 Dose: 50 mg Sodium Bicarbonate (Sodium Bicarbonate Tab) 650 mg PO Q8 [facility] Last Admin: 08/11/17 05:34 Dose: 650 mg Sodium Hypochlorite (Dakins Solution 0.125%) 0 appl TOP DAILY [facility] Last Admin: 08/11/17 09:47 Dose: 20 appl Vitamin B Complex/Vit C/Folic Acid (Nephro-Rosario) 1 tab PO 0800 [facility] Last Admin: 08/11/17 08:46 Dose: 1 tab - Labs Labs: 08/09/17 10:44 08/09/17 10:44 PT 14.4 SECONDS (9.7-12.2) H 08/05/17 14:01 INR 1.3 08/05/17 14:01 APTT 34 SECONDS (21-34) 08/05/17 14:01 Assessment and Plan - Assessment and Plan (Free Text) Assessment: Anemia Assessment & Plan: Anemia likely secondary to chronic disease and immunosuppression Patient has a history of CKD, osteomyelitis and HIV Transfuse if Hgb drops or patient become symptomatic Status: Acute Monoclonal gammopathy Assessment & Plan: Monoclonal protein detected in urine Skeletal survey recommended to rule out lytic lesions Considerations for further biopsy Status: Acute Prophylactic Measure Assessment & Plan: Heparin Q12 SC GI prophylaxis not indicated Status: Acute
[2017-08-11] MEDS: (Novolog) Insulin Aspart, Recombinant 100 u/ml 10 ml vial SC SCH ×2 (10:06→17:00)
--- NOTE | 2017-08-11 12:09 | CP.PCM.PN ---
Subjective - Date & Time of Evaluation Date of Evaluation: 08/11/17 Time of Evaluation: 12:06 - Subjective Subjective: CONDITION SAME. AFEBRILE. BP HIGH. Objective - Vital Signs/Intake and Output Vital Signs (last 24 hours): Temp Pulse Resp BP Pulse Ox 98.1 F 79 20 179/98 H 100 08/11/17 08:09 08/11/17 08:09 08/11/17 08:09 08/11/17 08:09 08/11/17 08:09 - Medications Medications: Current Medications Acetaminophen (Tylenol 325mg Tab) 650 mg PO ONCE PRN PRN Reason: Fever >100.4 F Amlodipine Besylate (Norvasc) 10 mg PO DAILY [facility] Last Admin: 08/11/17 09:46 Dose: 10 mg Calcitriol (Rocaltrol) 0.25 mcg PO TTS [facility] Last Admin: 08/10/17 10:21 Dose: 0.25 mcg Epoetin Anival (Procrit) 20,000 unit SC TTS [facility] Last Admin: 08/10/17 11:20 Dose: 20,000 unit Heparin Sodium (Porcine) (Heparin) 5,000 units SC Q12H [facility] Last Admin: 08/11/17 09:47 Dose: 5,000 units Vancomycin/Sodium Chloride (Vancomycin 1 Gm/Ns 200 Ml) 1 gm in 200 mls @ 133.333 mls/hr IVPB Q48H [facility] PRN Reason: Protocol Last Admin: 08/10/17 14:17 Dose: 133.333 mls/hr Cefepime HCl 1 gm/ Dextrose 50 mls @ 100 mls/hr IVPB DAILY [facility] PRN Reason: Protocol Insulin Aspart (Novolog) 16 unit SC BID [facility] Last Admin: 08/11/17 10:06 Dose: Not Given Insulin Glargine (Lantus) 16 unit SC HS [facility] Last Admin: 08/10/17 21:58 Dose: 16 unit Insulin Human Regular (Novolin R) 0 unit SC ACHS [facility] PRN Reason: Protocol Last Admin: 08/11/17 11:07 Dose: Not Given Labetalol HCl (Normodyne) 300 mg PO Q8H [facility] Last Admin: 08/11/17 08:46 Dose: 300 mg Morphine Sulfate (Morphine) 2 mg IV Q4 PRN PRN Reason: Pain, severe (8-10) Last Admin: 08/11/17 11:04 Dose: 2 mg Ondansetron HCl (Zofran Inj) 4 mg IVP Q6H PRN PRN Reason: Nausea/Vomiting Last Admin: 08/11/17 11:59 Dose: 4 mg Saccharomyces Boulardii (Florastor) 250 mg PO BID [facility] Last Admin: 08/11/17 09:46 Dose: 250 mg Sertraline HCl (Zoloft) 50 mg PO DAILY [facility] Last Admin: 08/11/17 09:46 Dose: 50 mg Sodium Bicarbonate (Sodium Bicarbonate Tab) 650 mg PO Q8 [facility] Last Admin: 08/11/17 05:34 Dose: 650 mg Sodium Hypochlorite (Dakins Solution 0.125%) 0 appl TOP DAILY [facility] Last Admin: 08/11/17 09:47 Dose: 20 appl Vitamin B Complex/Vit C/Folic Acid (Nephro-Rosario) 1 tab PO 0800 [facility] Last Admin: 08/11/17 08:46 Dose: 1 tab - Labs Labs: 08/09/17 10:44 08/09/17 10:44 PT 14.4 SECONDS (9.7-12.2) H 08/05/17 14:01 INR 1.3 08/05/17 14:01 APTT 34 SECONDS (21-34) 08/05/17 14:01 - Constitutional Appears: No Acute Distress, Chronically Ill - Head Exam Head Exam: ATRAUMATIC, NORMAL INSPECTION, NORMOCEPHALIC - ENT Exam ENT Exam: Mucous Membranes Moist, Normal Exam - Neck Exam Neck Exam: Full ROM, Normal Inspection. absent: Lymphadenopathy - Respiratory Exam Respiratory Exam: Clear to Ausculation Bilateral, NORMAL BREATHING PATTERN - Cardiovascular Exam Cardiovascular Exam: REGULAR RHYTHM, +S1, +S2. absent: Murmur - GI/Abdominal Exam GI & Abdominal Exam: Soft, Normal Bowel Sounds. absent: Tenderness - Extremities Exam Extremities Exam: Full ROM, Normal Capillary Refill, Normal Inspection. absent : Joint Swelling, Pedal Edema - Back Exam Back Exam: NORMAL INSPECTION - Neurological Exam Neurological Exam: Alert, Awake, CN II-XII Intact, Normal Gait, Oriented x3 Assessment and Plan - Assessment and Plan (Free Text) Assessment: OM LT FOOT. ANEMIA. Plan: FOR IV ABTS. TWO DAYS REMAINED.
--- NOTE | 2017-08-11 12:18 | CP.PCM.PN ---
Subjective - Date & Time of Evaluation Date of Evaluation: 08/10/17 Time of Evaluation: 12:00 - Subjective Subjective: Has some pain at surgical site of foot Objective - Vital Signs/Intake and Output Vital Signs (last 24 hours): Temp Pulse Resp BP Pulse Ox 98.1 F 79 20 179/98 H 100 08/11/17 08:09 08/11/17 08:09 08/11/17 08:09 08/11/17 08:09 08/11/17 08:09 - Medications Medications: Current Medications Acetaminophen (Tylenol 325mg Tab) 650 mg PO ONCE PRN PRN Reason: Fever >100.4 F Alteplase, Recombinant (Cathflo 2 Mg Inj) 2 mg IV ONCE ONE Stop: 08/11/17 12:13 Amlodipine Besylate (Norvasc) 10 mg PO DAILY [facility] Last Admin: 08/11/17 09:46 Dose: 10 mg Calcitriol (Rocaltrol) 0.25 mcg PO TTS [facility] Last Admin: 08/10/17 10:21 Dose: 0.25 mcg Epoetin Anival (Procrit) 20,000 unit SC TTS [facility] Last Admin: 08/10/17 11:20 Dose: 20,000 unit Heparin Sodium (Porcine) (Heparin) 5,000 units SC Q12H [facility] Last Admin: 08/11/17 09:47 Dose: 5,000 units Vancomycin/Sodium Chloride (Vancomycin 1 Gm/Ns 200 Ml) 1 gm in 200 mls @ 133.333 mls/hr IVPB Q48H [facility] PRN Reason: Protocol Last Admin: 08/10/17 14:17 Dose: 133.333 mls/hr Cefepime HCl 1 gm/ Dextrose 50 mls @ 100 mls/hr IVPB DAILY [facility] PRN Reason: Protocol Insulin Aspart (Novolog) 16 unit SC BID [facility] Last Admin: 08/11/17 10:06 Dose: Not Given Insulin Glargine (Lantus) 16 unit SC HS [facility] Last Admin: 08/10/17 21:58 Dose: 16 unit Insulin Human Regular (Novolin R) 0 unit SC ACHS [facility] PRN Reason: Protocol Last Admin: 08/11/17 11:07 Dose: Not Given Labetalol HCl (Normodyne) 300 mg PO Q8H [facility] Last Admin: 08/11/17 08:46 Dose: 300 mg Morphine Sulfate (Morphine) 2 mg IV Q4 PRN PRN Reason: Pain, severe (8-10) Last Admin: 08/11/17 11:04 Dose: 2 mg Ondansetron HCl (Zofran Inj) 4 mg IVP Q6H PRN PRN Reason: Nausea/Vomiting Last Admin: 08/11/17 11:59 Dose: 4 mg Saccharomyces Boulardii (Florastor) 250 mg PO BID [facility] Last Admin: 08/11/17 09:46 Dose: 250 mg Sertraline HCl (Zoloft) 50 mg PO DAILY [facility] Last Admin: 08/11/17 09:46 Dose: 50 mg Sodium Bicarbonate (Sodium Bicarbonate Tab) 650 mg PO Q8 [facility] Last Admin: 08/11/17 05:34 Dose: 650 mg Sodium Hypochlorite (Dakins Solution 0.125%) 0 appl TOP DAILY [facility] Last Admin: 08/11/17 09:47 Dose: 20 appl Vitamin B Complex/Vit C/Folic Acid (Nephro-Rosario) 1 tab PO 0800 [facility] Last Admin: 08/11/17 08:46 Dose: 1 tab - Labs Labs: 08/09/17 10:44 08/09/17 10:44 PT 14.4 SECONDS (9.7-12.2) H 08/05/17 14:01 INR 1.3 08/05/17 14:01 APTT 34 SECONDS (21-34) 08/05/17 14:01 - Head Exam Head Exam: ATRAUMATIC - Eye Exam Eye Exam: Normal appearance - ENT Exam ENT Exam: Mucous Membranes Dry - Respiratory Exam Respiratory Exam: NORMAL BREATHING PATTERN - Cardiovascular Exam Cardiovascular Exam: +S1, +S2 - GI/Abdominal Exam GI & Abdominal Exam: Normal Bowel Sounds Assessment and Plan (1) Anemia Assessment & Plan: multifactorial anemia of chronic disease from osteomyelitis anemia of CKD anemia of HIV on KIT to decrease transfusion requirements. transfusion support PRN Status: Acute (2) Monoclonal gammopathy Assessment & Plan: + monoclonal protein detected in urine abnormal free light chain ratio skeletal survey to evaluate for lytic lesions possible bone marrow +/- kidney biopsy; discussed with the patient who prefers to not have a biopsy during this admission but will reconsider at a later date. Status: Acute
--- NOTE | 2017-08-11 12:19 | CP.PCM.PN ---
Subjective - Date & Time of Evaluation Date of Evaluation: 08/11/17 Time of Evaluation: 11:00 - Subjective Subjective: Has some foot pain. Objective - Vital Signs/Intake and Output Vital Signs (last 24 hours): Temp Pulse Resp BP Pulse Ox 98.1 F 79 20 179/98 H 100 08/11/17 08:09 08/11/17 08:09 08/11/17 08:09 08/11/17 08:09 08/11/17 08:09 - Medications Medications: Current Medications Acetaminophen (Tylenol 325mg Tab) 650 mg PO ONCE PRN PRN Reason: Fever >100.4 F Alteplase, Recombinant (Cathflo 2 Mg Inj) 2 mg IV ONCE ONE Stop: 08/11/17 12:13 Amlodipine Besylate (Norvasc) 10 mg PO DAILY [facility] Last Admin: 08/11/17 09:46 Dose: 10 mg Calcitriol (Rocaltrol) 0.25 mcg PO TTS [facility] Last Admin: 08/10/17 10:21 Dose: 0.25 mcg Epoetin Anival (Procrit) 20,000 unit SC TTS [facility] Last Admin: 08/10/17 11:20 Dose: 20,000 unit Heparin Sodium (Porcine) (Heparin) 5,000 units SC Q12H [facility] Last Admin: 08/11/17 09:47 Dose: 5,000 units Vancomycin/Sodium Chloride (Vancomycin 1 Gm/Ns 200 Ml) 1 gm in 200 mls @ 133.333 mls/hr IVPB Q48H [facility] PRN Reason: Protocol Last Admin: 08/10/17 14:17 Dose: 133.333 mls/hr Cefepime HCl 1 gm/ Dextrose 50 mls @ 100 mls/hr IVPB DAILY [facility] PRN Reason: Protocol Insulin Aspart (Novolog) 16 unit SC BID [facility] Last Admin: 08/11/17 10:06 Dose: Not Given Insulin Glargine (Lantus) 16 unit SC HS [facility] Last Admin: 08/10/17 21:58 Dose: 16 unit Insulin Human Regular (Novolin R) 0 unit SC ACHS [facility] PRN Reason: Protocol Last Admin: 08/11/17 11:07 Dose: Not Given Labetalol HCl (Normodyne) 300 mg PO Q8H [facility] Last Admin: 08/11/17 08:46 Dose: 300 mg Morphine Sulfate (Morphine) 2 mg IV Q4 PRN PRN Reason: Pain, severe (8-10) Last Admin: 08/11/17 11:04 Dose: 2 mg Ondansetron HCl (Zofran Inj) 4 mg IVP Q6H PRN PRN Reason: Nausea/Vomiting Last Admin: 08/11/17 11:59 Dose: 4 mg Saccharomyces Boulardii (Florastor) 250 mg PO BID [facility] Last Admin: 08/11/17 09:46 Dose: 250 mg Sertraline HCl (Zoloft) 50 mg PO DAILY [facility] Last Admin: 08/11/17 09:46 Dose: 50 mg Sodium Bicarbonate (Sodium Bicarbonate Tab) 650 mg PO Q8 [facility] Last Admin: 08/11/17 05:34 Dose: 650 mg Sodium Hypochlorite (Dakins Solution 0.125%) 0 appl TOP DAILY [facility] Last Admin: 08/11/17 09:47 Dose: 20 appl Vitamin B Complex/Vit C/Folic Acid (Nephro-Rosario) 1 tab PO 0800 [facility] Last Admin: 08/11/17 08:46 Dose: 1 tab - Labs Labs: 08/09/17 10:44 08/09/17 10:44 PT 14.4 SECONDS (9.7-12.2) H 08/05/17 14:01 INR 1.3 08/05/17 14:01 APTT 34 SECONDS (21-34) 08/05/17 14:01 - Head Exam Head Exam: ATRAUMATIC - Eye Exam Eye Exam: Normal appearance - ENT Exam ENT Exam: Mucous Membranes Dry - Respiratory Exam Respiratory Exam: NORMAL BREATHING PATTERN - Cardiovascular Exam Cardiovascular Exam: +S1, +S2 - GI/Abdominal Exam GI & Abdominal Exam: Normal Bowel Sounds Assessment and Plan (1) Anemia Assessment & Plan: multifactorial anemia of chronic disease from osteomyelitis anemia of CKD anemia of HIV on KIT to decrease transfusion requirements. transfusion support PRN Status: Acute (2) Monoclonal gammopathy Assessment & Plan: + monoclonal protein detected in urine abnormal free light chain ratio skeletal survey to evaluate for lytic lesions possible bone marrow +/- kidney biopsy; discussed with the patient who prefers to not have a biopsy during this admission but will reconsider at a later date. Status: Acute
--- NOTE | 2017-08-11 14:24 | CP.PCM.PN ---
Subjective - Date & Time of Evaluation Date of Evaluation: 08/11/17 Time of Evaluation: 14:23 - Subjective Subjective: Podiatry Progress note for Dr. Coy 36 year old female seen at bedside today 5 days s/p L foot Chopart's amputation. She denies any pain or discomfort at this time. Patient states that she has been vomitting and not feeling well today. Says that she has tried to keep foot elevated as much as possible. Discussed importance of remaining non- WB to LLE. Denies f/c/sob/cp at this time. No other pedal complaints today. Objective - Vital Signs/Intake and Output Vital Signs (last 24 hours): Temp Pulse Resp BP Pulse Ox 98.1 F 79 20 179/98 H 100 08/11/17 08:09 08/11/17 08:09 08/11/17 08:09 08/11/17 08:09 08/11/17 08:09 - Medications Medications: Current Medications Acetaminophen (Tylenol 325mg Tab) 650 mg PO ONCE PRN PRN Reason: Fever >100.4 F Amlodipine Besylate (Norvasc) 10 mg PO DAILY [facility] Last Admin: 08/11/17 09:46 Dose: 10 mg Calcitriol (Rocaltrol) 0.25 mcg PO TTS [facility] Last Admin: 08/10/17 10:21 Dose: 0.25 mcg Epoetin Anival (Procrit) 20,000 unit SC TTS [facility] Last Admin: 08/10/17 11:20 Dose: 20,000 unit Heparin Sodium (Porcine) (Heparin) 5,000 units SC Q12H [facility] Last Admin: 08/11/17 09:47 Dose: 5,000 units Vancomycin/Sodium Chloride (Vancomycin 1 Gm/Ns 200 Ml) 1 gm in 200 mls @ 133.333 mls/hr IVPB Q48H [facility] PRN Reason: Protocol Last Admin: 08/10/17 14:17 Dose: 133.333 mls/hr Cefepime HCl 1 gm/ Dextrose 50 mls @ 100 mls/hr IVPB DAILY [facility] PRN Reason: Protocol Insulin Aspart (Novolog) 16 unit SC BID [facility] Last Admin: 08/11/17 10:06 Dose: Not Given Insulin Glargine (Lantus) 16 unit SC HS [facility] Last Admin: 08/10/17 21:58 Dose: 16 unit Insulin Human Regular (Novolin R) 0 unit SC ACHS [facility] PRN Reason: Protocol Last Admin: 08/11/17 11:07 Dose: Not Given Labetalol HCl (Normodyne) 300 mg PO Q8H [facility] Last Admin: 08/11/17 08:46 Dose: 300 mg Morphine Sulfate (Morphine) 2 mg IV Q4 PRN PRN Reason: Pain, severe (8-10) Last Admin: 08/11/17 11:04 Dose: 2 mg Ondansetron HCl (Zofran Inj) 4 mg IVP Q6H PRN PRN Reason: Nausea/Vomiting Last Admin: 08/11/17 11:59 Dose: 4 mg Saccharomyces Boulardii (Florastor) 250 mg PO BID [facility] Last Admin: 08/11/17 09:46 Dose: 250 mg Sertraline HCl (Zoloft) 50 mg PO DAILY [facility] Last Admin: 08/11/17 09:46 Dose: 50 mg Sodium Bicarbonate (Sodium Bicarbonate Tab) 650 mg PO Q8 [facility] Last Admin: 08/11/17 05:34 Dose: 650 mg Sodium Hypochlorite (Dakins Solution 0.125%) 0 appl TOP DAILY [facility] Last Admin: 08/11/17 09:47 Dose: 20 appl Vitamin B Complex/Vit C/Folic Acid (Nephro-Rosario) 1 tab PO 0800 [facility] Last Admin: 08/11/17 08:46 Dose: 1 tab - Labs Labs: 08/09/17 10:44 08/09/17 10:44 PT 14.4 SECONDS (9.7-12.2) H 08/05/17 14:01 INR 1.3 08/05/17 14:01 APTT 34 SECONDS (21-34) 08/05/17 14:01 - Constitutional Appears: Well, Non-toxic, No Acute Distress - Extremities Exam Additional comments: Left Lower Extremity exam: dressing appears c/d/i with no strikethrough evident VASC- DP pulse faintly palpable, skin temp runs warm to warm, minimal non- pitting edema noted on the distal extremity proximal to the ankle joint DERM- surgical site remains intact with surgical site well coapted, no dehiscence, capri-surgical site appears macerated with gross lichenification of pedal skin, medial surgical site appears to less macerated, the lateral distal stump site has a circular opening which measures approx 1 cm x 1 cm with a significant amount of depth, sinus track through the open site tracks medially dorsomedially, proximally and distally, no active drainage up on pressure from all direction towards the opening, no malodor present NEURO- gross and protective pedal sensation are diminished ORTHO- minimal tenderness noted to palp of the surgical site - Neurological Exam Neurological Exam: Alert, Awake, Oriented x3 - Psychiatric Exam Psychiatric exam: Normal Affect, Normal Mood Assessment and Plan - Assessment and Plan (Free Text) Assessment: 36 year old female patient seen 5 days s/p Chopart's amputation Plan: Patient examined and evaluated at bedside with Dr. Coy Labs and vitals reviewed - afebrile packing advanced dressing change with betadine soaked /, DSD, kerlix, coban Intra-op wound cultures: Coagulase Neg Staph c/w IV abx as per ID Dr. Del Valle Continue pain mgt per primary team c/w NWB to LLE with walker stable, will follow
--- NOTE | 2017-08-11 15:20 | CP.PCM.PN ---
Subjective - Date & Time of Evaluation Date of Evaluation: 08/11/17 Time of Evaluation: 09:00 - Subjective Subjective: cultures noted IV rx in progress Objective - Vital Signs/Intake and Output Vital Signs (last 24 hours): Temp Pulse Resp BP Pulse Ox 98.1 F 79 20 179/98 H 100 08/11/17 08:09 08/11/17 08:09 08/11/17 08:09 08/11/17 08:09 08/11/17 08:09 - Medications Medications: Current Medications Acetaminophen (Tylenol 325mg Tab) 650 mg PO ONCE PRN PRN Reason: Fever >100.4 F Amlodipine Besylate (Norvasc) 10 mg PO DAILY [facility] Last Admin: 08/11/17 09:46 Dose: 10 mg Calcitriol (Rocaltrol) 0.25 mcg PO TTS [facility] Last Admin: 08/10/17 10:21 Dose: 0.25 mcg Epoetin Anival (Procrit) 20,000 unit SC TTS [facility] Last Admin: 08/10/17 11:20 Dose: 20,000 unit Heparin Sodium (Porcine) (Heparin) 5,000 units SC Q12H [facility] Last Admin: 08/11/17 09:47 Dose: 5,000 units Vancomycin/Sodium Chloride (Vancomycin 1 Gm/Ns 200 Ml) 1 gm in 200 mls @ 133.333 mls/hr IVPB Q48H [facility] PRN Reason: Protocol Last Admin: 08/10/17 14:17 Dose: 133.333 mls/hr Cefepime HCl 1 gm/ Dextrose 50 mls @ 100 mls/hr IVPB DAILY [facility] PRN Reason: Protocol Insulin Aspart (Novolog) 16 unit SC BID [facility] Last Admin: 08/11/17 10:06 Dose: Not Given Insulin Glargine (Lantus) 16 unit SC HS [facility] Last Admin: 08/10/17 21:58 Dose: 16 unit Insulin Human Regular (Novolin R) 0 unit SC ACHS [facility] PRN Reason: Protocol Last Admin: 08/11/17 11:07 Dose: Not Given Labetalol HCl (Normodyne) 300 mg PO Q8H [facility] Last Admin: 08/11/17 08:46 Dose: 300 mg Morphine Sulfate (Morphine) 2 mg IV Q4 PRN PRN Reason: Pain, severe (8-10) Last Admin: 08/11/17 11:04 Dose: 2 mg Ondansetron HCl (Zofran Inj) 4 mg IVP Q6H PRN PRN Reason: Nausea/Vomiting Last Admin: 08/11/17 11:59 Dose: 4 mg Saccharomyces Boulardii (Florastor) 250 mg PO BID [facility] Last Admin: 08/11/17 09:46 Dose: 250 mg Sertraline HCl (Zoloft) 50 mg PO DAILY [facility] Last Admin: 08/11/17 09:46 Dose: 50 mg Sodium Bicarbonate (Sodium Bicarbonate Tab) 650 mg PO Q8 [facility] Last Admin: 08/11/17 14:45 Dose: 650 mg Sodium Hypochlorite (Dakins Solution 0.125%) 0 appl TOP DAILY [facility] Last Admin: 08/11/17 09:47 Dose: 20 appl Vitamin B Complex/Vit C/Folic Acid (Nephro-Rosario) 1 tab PO 0800 [facility] Last Admin: 08/11/17 08:46 Dose: 1 tab - Labs Labs: 08/09/17 10:44 08/09/17 10:44 PT 14.4 SECONDS (9.7-12.2) H 08/05/17 14:01 INR 1.3 08/05/17 14:01 APTT 34 SECONDS (21-34) 08/05/17 14:01 - Constitutional Appears: Non-toxic, Chronically Ill - Head Exam Head Exam: NORMOCEPHALIC - Eye Exam Eye Exam: PERRL - ENT Exam ENT Exam: Mucous Membranes Dry - Neck Exam Neck Exam: absent: Lymphadenopathy - Respiratory Exam Respiratory Exam: Decreased Breath Sounds - Cardiovascular Exam Cardiovascular Exam: REGULAR RHYTHM - GI/Abdominal Exam GI & Abdominal Exam: Distended Assessment and Plan (1) Anemia Status: Acute (2) Chronic ulcer of left leg Status: Chronic (3) HIV disease Status: Chronic (4) GAEL (acute kidney injury) Status: Acute (5) Abscess and cellulitis Status: Acute - Assessment and Plan (Free Text) Assessment: cont wound care iv rx renewed
--- NOTE | 2017-08-11 18:53 | CP.PCM.PN ---
Subjective - Date & Time of Evaluation Date of Evaluation: 08/11/17 Time of Evaluation: 18:53 - Subjective Subjective: pt is seen and examined, follow up consult is dictated #[id number] Objective - Vital Signs/Intake and Output Vital Signs (last 24 hours): Temp Pulse Resp BP Pulse Ox 98.4 F 84 18 138/71 100 08/11/17 16:00 08/11/17 16:00 08/11/17 16:00 08/11/17 16:00 08/11/17 16:00 Intake and Output: 08/11/17 08/11/17 06:59 18:59 Intake Total 500 Output Total 800 Balance -300 - Medications Medications: Current Medications Acetaminophen (Tylenol 325mg Tab) 650 mg PO ONCE PRN PRN Reason: Fever >100.4 F Amlodipine Besylate (Norvasc) 10 mg PO DAILY [facility] Last Admin: 08/11/17 09:46 Dose: 10 mg Calcitriol (Rocaltrol) 0.25 mcg PO TTS [facility] Last Admin: 08/10/17 10:21 Dose: 0.25 mcg Epoetin Anival (Procrit) 20,000 unit SC TTS [facility] Last Admin: 08/10/17 11:20 Dose: 20,000 unit Heparin Sodium (Porcine) (Heparin) 5,000 units SC Q12H [facility] Last Admin: 08/11/17 09:47 Dose: 5,000 units Vancomycin/Sodium Chloride (Vancomycin 1 Gm/Ns 200 Ml) 1 gm in 200 mls @ 133.333 mls/hr IVPB Q48H [facility] PRN Reason: Protocol Last Admin: 08/10/17 14:17 Dose: 133.333 mls/hr Cefepime HCl 1 gm/ Dextrose 50 mls @ 100 mls/hr IVPB DAILY [facility] PRN Reason: Protocol Insulin Aspart (Novolog) 16 unit SC BID [facility] Last Admin: 08/11/17 17:00 Dose: Not Given Insulin Glargine (Lantus) 16 unit SC HS [facility] Last Admin: 08/10/17 21:58 Dose: 16 unit Insulin Human Regular (Novolin R) 0 unit SC ACHS [facility] PRN Reason: Protocol Last Admin: 08/11/17 16:09 Dose: Not Given Labetalol HCl (Normodyne) 300 mg PO Q8H [facility] Last Admin: 08/11/17 16:58 Dose: 300 mg Morphine Sulfate (Morphine) 2 mg IV Q4 PRN PRN Reason: Pain, severe (8-10) Last Admin: 08/11/17 15:52 Dose: 2 mg Ondansetron HCl (Zofran Inj) 4 mg IVP Q6H PRN PRN Reason: Nausea/Vomiting Last Admin: 08/11/17 11:59 Dose: 4 mg Saccharomyces Boulardii (Florastor) 250 mg PO BID [facility] Last Admin: 08/11/17 16:59 Dose: 250 mg Sertraline HCl (Zoloft) 50 mg PO DAILY [facility] Last Admin: 08/11/17 09:46 Dose: 50 mg Sodium Bicarbonate (Sodium Bicarbonate Tab) 650 mg PO Q8 [facility] Last Admin: 08/11/17 14:45 Dose: 650 mg Sodium Hypochlorite (Dakins Solution 0.125%) 0 appl TOP DAILY [facility] Last Admin: 08/11/17 09:47 Dose: 20 appl Vitamin B Complex/Vit C/Folic Acid (Nephro-Rosario) 1 tab PO 0800 [facility] Last Admin: 08/11/17 08:46 Dose: 1 tab - Labs Labs: 08/09/17 10:44 08/09/17 10:44 PT 14.4 SECONDS (9.7-12.2) H 08/05/17 14:01 INR 1.3 08/05/17 14:01 APTT 34 SECONDS (21-34) 08/05/17 14:01
[2017-08-11] MEDS: (Lantus) Insulin Glargine, Recombinant SC SCH (21:34)
[2017-08-11] MEDS ORDERED: DiphenhydrAMINE 50 mg/ml Inj IVP STA (23:59)
[2017-08-12] MEDS: Labetalol Hydrochloride 300 mg Tab PO SCH ×3 (00:55→17:06)
[2017-08-12] MEDS: Morphine 4 MG/ML VIAL IV PRN ×6 (03:25→22:47)
--- NOTE | 2017-08-12 03:45 | PN ---
DATE: 08/11/2017 The patient is located in room 570, bed A. Requested Yasemin Nathan MD REASON FOR FOLLOWUP: Acute renal failure, chronic kidney disease, anemia, metabolic acidosis, hyperkalemia. HISTORY: Mrs. Johnson is a 36-year-old young transgender female with a past medical history significant for longstanding hypertension, diabetes, HIV positive, Charcot's foot, osteomyelitis, nephrotic range proteinuria, chronic kidney disease, anemia, hyperkalemia, metabolic acidosis, status post transmetatarsal amputation of the left foot in the last week. The patient is not in distress. Denies any headache, dizziness. Denies any chest pain or palpitation. Denies any fever or cough. No abdominal pain. No nausea, vomiting, diarrhea. PHYSICAL EXAMINATION: VITAL SIGNS: As follows: Blood pressure 138/71, pulse 84, respiration 18, temperature 98.4, saturation 100%. Height 6 feet 3 inches, weight is 280 pounds. GENERAL: Mrs. Johnson is 36-year-old young transgender female, well built, well nourished, not in distress, appears externally male, not in distress. HEENT: Pupils normal and reactive to light and accommodation. Conjunctivae pink. Sclerae anicteric. Tongue is moist and trachea is midline. LUNGS: Symmetrical on both sides. Bilateral breath sounds present. Clear to auscultation. CVS: Harrison at the fifth intercostal space, midclavicular line. S1 and S2 audible. No murmur or gallop. ABDOMEN: Normal in appearance, soft, tympanic. No guarding. No hepatosplenomegaly. GLASS SCULLION: The patient is alert, awake, oriented x3. Nonfocal neuro examination. Cranial nerves II-XII grossly intact. Sensory and motor systems are within normal limits. EXTREMITIES: No cyanosis, no clubbing, no edema on the right side. The patient has a dressing to the left foot and left foreleg is swollen slightly below the knee joint. CURRENT MEDICATIONS: Include as follows: Cefepime 1 gm daily, Florastor 250 mg p.o. b.i.d., subcu heparin 5000 every 12 hours, Lantus 16 units subcu at bedtime, morphine 2 mg IV every 4 hours, Nephro-Rosario 1 tablet daily, labetalol 300 mg p.o. every 8 hours, amlodipine 10 mg daily, NovoLog 16 units subcu b.i.d., Epogen 20,000 three times a week, Rocaltrol 0.25 mcg three times a week, Tylenol 650 mg p.o. every 8 hours, sodium bicarb 650 mg p.o. every 8 hours, vancomycin 1 gm every 48 hours, Zofran 4 mg IV every 6 hours, Zoloft 50 mg p.o. daily. No new labs are available for today. Accu-Cheks 95, 98, 140, and 127. LABORATORY DATA: As of 08/09/2017, WBC 10.7, hemoglobin 8.3, hematocrit is 24.7, platelets 443. Sodium 142, potassium 5.6, chloride 107, CO2 of 22, BUN 41, creatinine is 4, glucose 308, calcium 8.9, total protein 8.8, albumin is 2.8. In summary, Mrs. Johnson is a 36-year-old young transgender female with hypertension, diabetes, HIV positive, noncompliance with medications, Charcot's foot, osteomyelitis of the left foot, anemia, proteinuria, metabolic acidosis, hyperkalemia, second hyperparathyroidism, and positive for proteinemia. 1. Acute renal failure on chronic kidney disease, rule out ATN secondary to osteomyelitis and chronic infection, cannot rule out diabetic nephropathy versus chronic GN such as FSGS or HIV associated nephropathy. 2. Anemia secondary to renal failure and iron deficiency, status post IV iron bolus 1 gm in 8 divided doses and continue Procrit and continue Nephro-Rosario. 3. Secondary hyperparathyroidism. Continue calcitriol 0.25 mcg three times a week. 4. Osteomyelitis. Continue antibiotics cefepime and vancomycin as per ID recommendations. 5. Status post hyperkalemia. No new labs for today. We will request labs tomorrow. We will follow with you. Thank you for allowing me to participate in your patient's care. Overall prognosis is guarded. Weston Brambila MD
[2017-08-12] MEDS: (Novolin R) Insulin Human Regular 100 units/ml vial SC SCH ×4 (07:28→22:05)
[2017-08-12] MEDS: Multivitamin Vitamin B Complex (Nephro-Vite) Tab PO SCH (08:15)
[2017-08-12] MEDS: Saccharomyces Boulardi 250 mg Cap PO SCH ×2 (09:16→17:06)
[2017-08-12] MEDS: (Novolog) Insulin Aspart, Recombinant 100 u/ml 10 ml vial SC SCH ×2 (09:17→17:11)
[2017-08-12] MEDS: Epoetin Alfa Dialysis 20000 UNIT/ML Inj SC SCH (10:51)
--- NOTE | 2017-08-12 11:15 | CP.PCM.PN ---
Subjective - Date & Time of Evaluation Date of Evaluation: 08/12/17 Time of Evaluation: 11:15 - Subjective Subjective: pt is seen and examined, follow up consult is dictated #[id number] check cbc, bmp Objective - Vital Signs/Intake and Output Vital Signs (last 24 hours): Temp Pulse Resp BP Pulse Ox 98.5 F 77 18 167/93 H 96 08/12/17 07:35 08/12/17 07:35 08/12/17 07:35 08/12/17 07:35 08/12/17 07:35 - Medications Medications: Current Medications Acetaminophen (Tylenol 325mg Tab) 650 mg PO ONCE PRN PRN Reason: Fever >100.4 F Amlodipine Besylate (Norvasc) 10 mg PO DAILY [facility] Last Admin: 08/12/17 09:16 Dose: 10 mg Calcitriol (Rocaltrol) 0.25 mcg PO TTS [facility] Last Admin: 08/12/17 09:15 Dose: 0.25 mcg Epoetin Anival (Procrit) 20,000 unit SC TTS [facility] Last Admin: 08/12/17 10:51 Dose: 20,000 unit Heparin Sodium (Porcine) (Heparin) 5,000 units SC Q12H [facility] Last Admin: 08/12/17 09:16 Dose: 5,000 units Vancomycin/Sodium Chloride (Vancomycin 1 Gm/Ns 200 Ml) 1 gm in 200 mls @ 133.333 mls/hr IVPB Q48H [facility] PRN Reason: Protocol Last Admin: 08/10/17 14:17 Dose: 133.333 mls/hr Cefepime HCl 1 gm/ Dextrose 50 mls @ 100 mls/hr IVPB DAILY [facility] PRN Reason: Protocol Last Admin: 08/12/17 10:53 Dose: 100 mls/hr Insulin Aspart (Novolog) 16 unit SC BID [facility] Last Admin: 08/12/17 09:17 Dose: Not Given Insulin Glargine (Lantus) 16 unit SC HS [facility] Last Admin: 08/11/17 21:34 Dose: Not Given Insulin Human Regular (Novolin R) 0 unit SC ACHS [facility] PRN Reason: Protocol Last Admin: 08/12/17 07:28 Dose: Not Given Labetalol HCl (Normodyne) 300 mg PO Q8H [facility] Last Admin: 08/12/17 08:15 Dose: 300 mg Morphine Sulfate (Morphine) 2 mg IV Q4 PRN PRN Reason: Pain, severe (8-10) Last Admin: 08/12/17 10:52 Dose: 2 mg Ondansetron HCl (Zofran Inj) 4 mg IVP Q6H PRN PRN Reason: Nausea/Vomiting Last Admin: 08/11/17 11:59 Dose: 4 mg Saccharomyces Boulardii (Florastor) 250 mg PO BID [facility] Last Admin: 08/12/17 09:16 Dose: 250 mg Sertraline HCl (Zoloft) 50 mg PO DAILY [facility] Last Admin: 08/12/17 09:15 Dose: 50 mg Sodium Bicarbonate (Sodium Bicarbonate Tab) 650 mg PO Q8 [facility] Last Admin: 08/12/17 06:40 Dose: 650 mg Sodium Hypochlorite (Dakins Solution 0.125%) 0 appl TOP DAILY [facility] Last Admin: 08/12/17 09:16 Dose: 20 appl Vitamin B Complex/Vit C/Folic Acid (Nephro-Rosario) 1 tab PO 0800 [facility] Last Admin: 08/12/17 08:15 Dose: 1 tab - Labs Labs: 08/09/17 10:44 08/09/17 10:44 PT 14.4 SECONDS (9.7-12.2) H 08/05/17 14:01 INR 1.3 08/05/17 14:01 APTT 34 SECONDS (21-34) 08/05/17 14:01
--- NOTE | 2017-08-12 11:22 | CP.PCM.PN ---
<Miranda Frausto - Last Filed: 08/12/17 11:18> Subjective - Date & Time of Evaluation Date of Evaluation: 08/12/17 Time of Evaluation: 11:18 - Subjective Subjective: Podiatry Progress note for Dr. Coy 36 year old female seen at bedside today with Dr. 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 She denies any pain or discomfort at this time. Says that she has tried to keep foot elevated as much as possible. Denies f/c/sob/cp at this time. No other pedal complaints today. Objective - Vital Signs/Intake and Output Vital Signs (last 24 hours): Temp Pulse Resp BP Pulse Ox 98.5 F 77 18 167/93 H 96 08/12/17 07:35 08/12/17 07:35 08/12/17 07:35 08/12/17 07:35 08/12/17 07:35 - Medications Medications: Current Medications Acetaminophen (Tylenol 325mg Tab) 650 mg PO ONCE PRN PRN Reason: Fever >100.4 F Amlodipine Besylate (Norvasc) 10 mg PO DAILY [facility] Last Admin: 08/12/17 09:16 Dose: 10 mg Calcitriol (Rocaltrol) 0.25 mcg PO TTS [facility] Last Admin: 08/12/17 09:15 Dose: 0.25 mcg Epoetin Anival (Procrit) 20,000 unit SC TTS [facility] Last Admin: 08/12/17 10:51 Dose: 20,000 unit Heparin Sodium (Porcine) (Heparin) 5,000 units SC Q12H [facility] Last Admin: 08/12/17 09:16 Dose: 5,000 units Vancomycin/Sodium Chloride (Vancomycin 1 Gm/Ns 200 Ml) 1 gm in 200 mls @ 133.333 mls/hr IVPB Q48H [facility] PRN Reason: Protocol Last Admin: 08/10/17 14:17 Dose: 133.333 mls/hr Cefepime HCl 1 gm/ Dextrose 50 mls @ 100 mls/hr IVPB DAILY [facility] PRN Reason: Protocol Last Admin: 08/12/17 10:53 Dose: 100 mls/hr Insulin Aspart (Novolog) 16 unit SC BID [facility] Last Admin: 08/12/17 09:17 Dose: Not Given Insulin Glargine (Lantus) 16 unit SC HS [facility] Last Admin: 08/11/17 21:34 Dose: Not Given Insulin Human Regular (Novolin R) 0 unit SC ACHS [facility] PRN Reason: Protocol Last Admin: 08/12/17 07:28 Dose: Not Given Labetalol HCl (Normodyne) 300 mg PO Q8H [facility] Last Admin: 08/12/17 08:15 Dose: 300 mg Morphine Sulfate (Morphine) 2 mg IV Q4 PRN PRN Reason: Pain, severe (8-10) Last Admin: 08/12/17 10:52 Dose: 2 mg Ondansetron HCl (Zofran Inj) 4 mg IVP Q6H PRN PRN Reason: Nausea/Vomiting Last Admin: 08/11/17 11:59 Dose: 4 mg Saccharomyces Boulardii (Florastor) 250 mg PO BID [facility] Last Admin: 08/12/17 09:16 Dose: 250 mg Sertraline HCl (Zoloft) 50 mg PO DAILY [facility] Last Admin: 08/12/17 09:15 Dose: 50 mg Sodium Bicarbonate (Sodium Bicarbonate Tab) 650 mg PO Q8 [facility] Last Admin: 08/12/17 06:40 Dose: 650 mg Sodium Hypochlorite (Dakins Solution 0.125%) 0 appl TOP DAILY [facility] Last Admin: 08/12/17 09:16 Dose: 20 appl Vitamin B Complex/Vit C/Folic Acid (Nephro-Rosario) 1 tab PO 0800 [facility] Last Admin: 08/12/17 08:15 Dose: 1 tab - Labs Labs: 08/09/17 10:44 08/09/17 10:44 PT 14.4 SECONDS (9.7-12.2) H 08/05/17 14:01 INR 1.3 08/05/17 14:01 APTT 34 SECONDS (21-34) 08/05/17 14:01 - Constitutional Appears: Well, Non-toxic, No Acute Distress - Extremities Exam Additional comments: Left Lower Extremity exam: dressing appears c/d/i with no strikethrough evident VASC- DP pulse faintly palpable, skin temp runs warm to warm, minimal non- pitting edema noted on the distal extremity proximal to the ankle joint DERM- surgical site remains intact with surgical site well coapted, no dehiscence, capri-surgical site appears macerated with gross lichenification of pedal skin, medial surgical site appears to less macerated, the lateral distal stump site has a circular opening which measures approx 1 cm x 1 cm with a significant amount of depth, sinus track through the open site tracks medially dorsomedially, proximally and distally, no active drainage up on pressure from all direction towards the opening, no malodor present NEURO- gross and protective pedal sensation are diminished ORTHO- minimal tenderness noted to palp of the surgical site - Neurological Exam Neurological Exam: Alert, Awake, Oriented x3 - Psychiatric Exam Psychiatric exam: Normal Affect, Normal Mood Assessment and Plan - Assessment and Plan (Free Text) Assessment: 36 year old female patient seen 6 days s/p Chopart's amputation Plan: Patient examined and evaluated at bedside with Dr. Coy Labs and vitals reviewed - afebrile packing removed dressing change with betadine soaked 4x4, DSD, kerlix, coban Intra-op wound cultures: Coagulase Neg Staph c/w IV abx as per ID Dr. Del Valle Continue pain mgt per primary team pt may be PWB to heel in surgical shoe with the assitance of a walker podiatry will cont to follow patient while in house <Kalpesh Coy - Last Filed: 08/13/17 06:55> Objective - Vital Signs/Intake and Output Vital Signs (last 24 hours): Temp Pulse Resp BP Pulse Ox 98.3 F 82 20 143/87 100 08/13/17 00:00 08/13/17 00:00 08/13/17 00:00 08/13/17 00:00 08/13/17 00:00 Intake and Output: 08/12/17 08/13/17 18:59 06:59 Intake Total 750 Output Total 700 Balance 50 - Medications Medications: Current Medications Acetaminophen (Tylenol 325mg Tab) 650 mg PO ONCE PRN PRN Reason: Fever >100.4 F Amlodipine Besylate (Norvasc) 10 mg PO DAILY [facility] Last Admin: 08/12/17 09:16 Dose: 10 mg Calcitriol (Rocaltrol) 0.25 mcg PO TTS [facility] Last Admin: 08/12/17 09:15 Dose: 0.25 mcg Diphenhydramine HCl (Benadryl) 50 mg IVP HS PRN PRN Reason: Insomnia Last Admin: 08/12/17 22:35 Dose: 50 mg Epoetin Anival (Procrit) 20,000 unit SC TTS [facility] Last Admin: 08/12/17 10:51 Dose: 20,000 unit Vancomycin/Sodium Chloride (Vancomycin 1 Gm/Ns 200 Ml) 1 gm in 200 mls @ 133.333 mls/hr IVPB Q48H [facility] PRN Reason: Protocol Last Admin: 08/12/17 14:48 Dose: 133.333 mls/hr Cefepime HCl 1 gm/ Dextrose 50 mls @ 100 mls/hr IVPB DAILY [facility] PRN Reason: Protocol Last Admin: 08/12/17 10:53 Dose: 100 mls/hr Insulin Aspart (Novolog) 16 unit SC BID [facility] Last Admin: 08/12/17 17:11 Dose: Not Given Insulin Glargine (Lantus) 16 unit SC HS [facility] Last Admin: 08/12/17 22:05 Dose: Not Given Insulin Human Regular (Novolin R) 0 unit SC ACHS [facility] PRN Reason: Protocol Last Admin: 08/12/17 22:05 Dose: Not Given Labetalol HCl (Normodyne) 300 mg PO Q8H [facility] Last Admin: 08/12/17 17:06 Dose: 300 mg Morphine Sulfate (Morphine) 2 mg IV Q4 PRN PRN Reason: Pain, severe (8-10) Last Admin: 08/13/17 02:50 Dose: 2 mg Ondansetron HCl (Zofran Inj) 4 mg IVP Q6H PRN PRN Reason: Nausea/Vomiting Last Admin: 08/11/17 11:59 Dose: 4 mg Saccharomyces Boulardii (Florastor) 250 mg PO BID [facility] Last Admin: 08/12/17 17:06 Dose: 250 mg Sertraline HCl (Zoloft) 50 mg PO DAILY [facility] Last Admin: 08/12/17 09:15 Dose: 50 mg Sodium Bicarbonate (Sodium Bicarbonate Tab) 650 mg PO Q8 [facility] Last Admin: 08/13/17 06:19 Dose: 650 mg Sodium Hypochlorite (Dakins Solution 0.125%) 0 appl TOP DAILY [facility] Last Admin: 08/12/17 09:16 Dose: 20 appl Vitamin B Complex/Vit C/Folic Acid (Nephro-Rosario) 1 tab PO 0800 [facility] Last Admin: 08/12/17 08:15 Dose: 1 tab - Labs Labs: 08/12/17 19:31 08/12/17 16:55 PT 14.4 SECONDS (9.7-12.2) H 08/05/17 14:01 INR 1.3 08/05/17 14:01 APTT 34 SECONDS (21-34) 08/05/17 14:01 Assessment and Plan - Assessment and Plan (Free Text) Plan: pt seen at bedside with resident .agree with above findings .Pt had to be changed to PWB heel for safety reasons as patient stated that there was a tendency to feel like falling . Case discussed with Dr Del Valle and continued antibiotics at sub acute x 3 wks however pt states that"I have to go home first to take care of some things and then come back" /DR Sam Coy
--- NOTE | 2017-08-12 13:02 | CP.PCM.PN ---
Subjective - Date & Time of Evaluation Date of Evaluation: 08/12/17 Time of Evaluation: 11:50 - Subjective Subjective: Feels tired. Objective - Vital Signs/Intake and Output Vital Signs (last 24 hours): Temp Pulse Resp BP Pulse Ox 98.5 F 77 18 167/93 H 96 08/12/17 07:35 08/12/17 07:35 08/12/17 07:35 08/12/17 07:35 08/12/17 07:35 - Medications Medications: Current Medications Acetaminophen (Tylenol 325mg Tab) 650 mg PO ONCE PRN PRN Reason: Fever >100.4 F Amlodipine Besylate (Norvasc) 10 mg PO DAILY [facility] Last Admin: 08/12/17 09:16 Dose: 10 mg Calcitriol (Rocaltrol) 0.25 mcg PO TTS [facility] Last Admin: 08/12/17 09:15 Dose: 0.25 mcg Epoetin Anival (Procrit) 20,000 unit SC TTS [facility] Last Admin: 08/12/17 10:51 Dose: 20,000 unit Heparin Sodium (Porcine) (Heparin) 5,000 units SC Q12H [facility] Last Admin: 08/12/17 09:16 Dose: 5,000 units Vancomycin/Sodium Chloride (Vancomycin 1 Gm/Ns 200 Ml) 1 gm in 200 mls @ 133.333 mls/hr IVPB Q48H [facility] PRN Reason: Protocol Last Admin: 08/10/17 14:17 Dose: 133.333 mls/hr Cefepime HCl 1 gm/ Dextrose 50 mls @ 100 mls/hr IVPB DAILY [facility] PRN Reason: Protocol Last Admin: 08/12/17 10:53 Dose: 100 mls/hr Insulin Aspart (Novolog) 16 unit SC BID [facility] Last Admin: 08/12/17 09:17 Dose: Not Given Insulin Glargine (Lantus) 16 unit SC HS [facility] Last Admin: 08/11/17 21:34 Dose: Not Given Insulin Human Regular (Novolin R) 0 unit SC ACHS [facility] PRN Reason: Protocol Last Admin: 08/12/17 12:01 Dose: 2 unit Labetalol HCl (Normodyne) 300 mg PO Q8H [facility] Last Admin: 08/12/17 08:15 Dose: 300 mg Morphine Sulfate (Morphine) 2 mg IV Q4 PRN PRN Reason: Pain, severe (8-10) Last Admin: 08/12/17 10:52 Dose: 2 mg Ondansetron HCl (Zofran Inj) 4 mg IVP Q6H PRN PRN Reason: Nausea/Vomiting Last Admin: 08/11/17 11:59 Dose: 4 mg Saccharomyces Boulardii (Florastor) 250 mg PO BID [facility] Last Admin: 08/12/17 09:16 Dose: 250 mg Sertraline HCl (Zoloft) 50 mg PO DAILY [facility] Last Admin: 08/12/17 09:15 Dose: 50 mg Sodium Bicarbonate (Sodium Bicarbonate Tab) 650 mg PO Q8 [facility] Last Admin: 08/12/17 06:40 Dose: 650 mg Sodium Hypochlorite (Dakins Solution 0.125%) 0 appl TOP DAILY [facility] Last Admin: 08/12/17 09:16 Dose: 20 appl Vitamin B Complex/Vit C/Folic Acid (Nephro-Rosario) 1 tab PO 0800 [facility] Last Admin: 08/12/17 08:15 Dose: 1 tab - Labs Labs: 08/09/17 10:44 08/09/17 10:44 PT 14.4 SECONDS (9.7-12.2) H 08/05/17 14:01 INR 1.3 08/05/17 14:01 APTT 34 SECONDS (21-34) 08/05/17 14:01 - Head Exam Head Exam: ATRAUMATIC - Eye Exam Eye Exam: Normal appearance - ENT Exam ENT Exam: Mucous Membranes Dry - Respiratory Exam Respiratory Exam: NORMAL BREATHING PATTERN - Cardiovascular Exam Cardiovascular Exam: +S1, +S2 - GI/Abdominal Exam GI & Abdominal Exam: Normal Bowel Sounds Assessment and Plan (1) Anemia Assessment & Plan: multifactorial anemia of chronic disease from osteomyelitis anemia of CKD anemia of HIV on KIT to decrease transfusion requirements. transfusion support PRN Status: Acute (2) Monoclonal gammopathy Assessment & Plan: + monoclonal protein detected in urine abnormal free light chain ratio skeletal survey to evaluate for lytic lesions possible bone marrow +/- kidney biopsy; discussed with the patient who prefers to not have a biopsy during this admission but will reconsider at a later date. Status: Acute
[2017-08-12] MEDS: Vancomycin 1 gm/NS 200 ml 1 GM/200 ML BAG IVPB SCH (14:48)
--- NOTE | 2017-08-12 15:39 | CP.PCM.PN ---
Subjective - Date & Time of Evaluation Date of Evaluation: 08/12/17 Time of Evaluation: 12:20 - Subjective Subjective: CONDITION SAME. AFEBRILE. Objective - Vital Signs/Intake and Output Vital Signs (last 24 hours): Temp Pulse Resp BP Pulse Ox 98.5 F 77 18 167/93 H 96 08/12/17 07:35 08/12/17 07:35 08/12/17 07:35 08/12/17 07:35 08/12/17 07:35 Intake and Output: 08/12/17 08/12/17 06:59 18:59 Intake Total 750 Output Total 700 Balance 50 - Medications Medications: Current Medications Acetaminophen (Tylenol 325mg Tab) 650 mg PO ONCE PRN PRN Reason: Fever >100.4 F Amlodipine Besylate (Norvasc) 10 mg PO DAILY [facility] Last Admin: 08/12/17 09:16 Dose: 10 mg Calcitriol (Rocaltrol) 0.25 mcg PO TTS [facility] Last Admin: 08/12/17 09:15 Dose: 0.25 mcg Epoetin Anival (Procrit) 20,000 unit SC TTS [facility] Last Admin: 08/12/17 10:51 Dose: 20,000 unit Vancomycin/Sodium Chloride (Vancomycin 1 Gm/Ns 200 Ml) 1 gm in 200 mls @ 133.333 mls/hr IVPB Q48H [facility] PRN Reason: Protocol Last Admin: 08/12/17 14:48 Dose: 133.333 mls/hr Cefepime HCl 1 gm/ Dextrose 50 mls @ 100 mls/hr IVPB DAILY [facility] PRN Reason: Protocol Last Admin: 08/12/17 10:53 Dose: 100 mls/hr Insulin Aspart (Novolog) 16 unit SC BID [facility] Last Admin: 08/12/17 09:17 Dose: Not Given Insulin Glargine (Lantus) 16 unit SC HS [facility] Last Admin: 08/11/17 21:34 Dose: Not Given Insulin Human Regular (Novolin R) 0 unit SC ACHS [facility] PRN Reason: Protocol Last Admin: 08/12/17 12:01 Dose: 2 unit Labetalol HCl (Normodyne) 300 mg PO Q8H [facility] Last Admin: 08/12/17 08:15 Dose: 300 mg Morphine Sulfate (Morphine) 2 mg IV Q4 PRN PRN Reason: Pain, severe (8-10) Last Admin: 08/12/17 14:48 Dose: 2 mg Ondansetron HCl (Zofran Inj) 4 mg IVP Q6H PRN PRN Reason: Nausea/Vomiting Last Admin: 08/11/17 11:59 Dose: 4 mg Saccharomyces Boulardii (Florastor) 250 mg PO BID [facility] Last Admin: 08/12/17 09:16 Dose: 250 mg Sertraline HCl (Zoloft) 50 mg PO DAILY [facility] Last Admin: 08/12/17 09:15 Dose: 50 mg Sodium Bicarbonate (Sodium Bicarbonate Tab) 650 mg PO Q8 [facility] Last Admin: 08/12/17 14:48 Dose: 650 mg Sodium Hypochlorite (Dakins Solution 0.125%) 0 appl TOP DAILY [facility] Last Admin: 08/12/17 09:16 Dose: 20 appl Vitamin B Complex/Vit C/Folic Acid (Nephro-Rosario) 1 tab PO 0800 [facility] Last Admin: 08/12/17 08:15 Dose: 1 tab - Labs Labs: 08/09/17 10:44 08/09/17 10:44 PT 14.4 SECONDS (9.7-12.2) H 08/05/17 14:01 INR 1.3 08/05/17 14:01 APTT 34 SECONDS (21-34) 08/05/17 14:01 - Constitutional Appears: No Acute Distress, Chronically Ill - Head Exam Head Exam: ATRAUMATIC, NORMAL INSPECTION, NORMOCEPHALIC - Eye Exam Eye Exam: EOMI, Normal appearance, PERRL Pupil Exam: NORMAL ACCOMODATION, PERRL - ENT Exam ENT Exam: Mucous Membranes Moist, Normal Exam - Neck Exam Neck Exam: Full ROM, Normal Inspection. absent: Lymphadenopathy - Respiratory Exam Respiratory Exam: Clear to Ausculation Bilateral, NORMAL BREATHING PATTERN - Cardiovascular Exam Cardiovascular Exam: REGULAR RHYTHM, +S1, +S2. absent: Murmur - GI/Abdominal Exam GI & Abdominal Exam: Soft, Normal Bowel Sounds. absent: Tenderness - Extremities Exam Extremities Exam: Full ROM, Normal Capillary Refill, Normal Inspection. absent : Joint Swelling, Pedal Edema - Back Exam Back Exam: NORMAL INSPECTION - Neurological Exam Neurological Exam: Alert, Awake, CN II-XII Intact, Normal Gait, Oriented x3 - Psychiatric Exam Psychiatric exam: Normal Affect, Normal Mood Assessment and Plan - Assessment and Plan (Free Text) Assessment: OM LT FOOT. CRF. Plan: CT PRESENT TREATMENT.
--- NOTE | 2017-08-12 17:15 | CP.PCM.PN ---
Subjective - Date & Time of Evaluation Date of Evaluation: 08/12/17 Time of Evaluation: 09:00 - Subjective Subjective: slow progress surgical TMA was done to buy time- feeling is that pt will eventually need BKA Objective - Vital Signs/Intake and Output Vital Signs (last 24 hours): Temp Pulse Resp BP Pulse Ox 98.2 F 72 20 138/72 95 08/12/17 16:00 08/12/17 16:00 08/12/17 16:00 08/12/17 16:00 08/12/17 16:00 Intake and Output: 08/12/17 08/12/17 06:59 18:59 Intake Total 750 Output Total 700 Balance 50 - Medications Medications: Current Medications Acetaminophen (Tylenol 325mg Tab) 650 mg PO ONCE PRN PRN Reason: Fever >100.4 F Amlodipine Besylate (Norvasc) 10 mg PO DAILY [facility] Last Admin: 08/12/17 09:16 Dose: 10 mg Calcitriol (Rocaltrol) 0.25 mcg PO TTS [facility] Last Admin: 08/12/17 09:15 Dose: 0.25 mcg Epoetin Anival (Procrit) 20,000 unit SC TTS [facility] Last Admin: 08/12/17 10:51 Dose: 20,000 unit Vancomycin/Sodium Chloride (Vancomycin 1 Gm/Ns 200 Ml) 1 gm in 200 mls @ 133.333 mls/hr IVPB Q48H [facility] PRN Reason: Protocol Last Admin: 08/12/17 14:48 Dose: 133.333 mls/hr Cefepime HCl 1 gm/ Dextrose 50 mls @ 100 mls/hr IVPB DAILY [facility] PRN Reason: Protocol Last Admin: 08/12/17 10:53 Dose: 100 mls/hr Insulin Aspart (Novolog) 16 unit SC BID [facility] Last Admin: 08/12/17 17:11 Dose: Not Given Insulin Glargine (Lantus) 16 unit SC HS [facility] Last Admin: 08/11/17 21:34 Dose: Not Given Insulin Human Regular (Novolin R) 0 unit SC ACHS [facility] PRN Reason: Protocol Last Admin: 08/12/17 17:10 Dose: 2 unit Labetalol HCl (Normodyne) 300 mg PO Q8H [facility] Last Admin: 08/12/17 17:06 Dose: 300 mg Morphine Sulfate (Morphine) 2 mg IV Q4 PRN PRN Reason: Pain, severe (8-10) Last Admin: 08/12/17 14:48 Dose: 2 mg Ondansetron HCl (Zofran Inj) 4 mg IVP Q6H PRN PRN Reason: Nausea/Vomiting Last Admin: 08/11/17 11:59 Dose: 4 mg Saccharomyces Boulardii (Florastor) 250 mg PO BID [facility] Last Admin: 08/12/17 17:06 Dose: 250 mg Sertraline HCl (Zoloft) 50 mg PO DAILY [facility] Last Admin: 08/12/17 09:15 Dose: 50 mg Sodium Bicarbonate (Sodium Bicarbonate Tab) 650 mg PO Q8 [facility] Last Admin: 08/12/17 14:48 Dose: 650 mg Sodium Hypochlorite (Dakins Solution 0.125%) 0 appl TOP DAILY [facility] Last Admin: 08/12/17 09:16 Dose: 20 appl Vitamin B Complex/Vit C/Folic Acid (Nephro-Rosario) 1 tab PO 0800 [facility] Last Admin: 08/12/17 08:15 Dose: 1 tab - Labs Labs: 08/09/17 10:44 08/09/17 10:44 PT 14.4 SECONDS (9.7-12.2) H 08/05/17 14:01 INR 1.3 08/05/17 14:01 APTT 34 SECONDS (21-34) 08/05/17 14:01 - Constitutional Appears: Chronically Ill - Head Exam Head Exam: NORMOCEPHALIC - Eye Exam Eye Exam: PERRL - ENT Exam ENT Exam: Mucous Membranes Dry - Neck Exam Neck Exam: absent: Lymphadenopathy - Respiratory Exam Respiratory Exam: Decreased Breath Sounds - Cardiovascular Exam Cardiovascular Exam: REGULAR RHYTHM - GI/Abdominal Exam GI & Abdominal Exam: Distended - Rectal Exam Rectal Exam: Deferred - Exam Exam: NORMAL INSPECTION - Extremities Exam Extremities Exam: Pedal Edema. absent: Calf Tenderness, Tenderness Additional comments: Left Lower Extremity exam: dressing appears c/d/i with no strikethrough evident VASC- DP pulse faintly palpable, skin temp runs warm to warm, minimal non- pitting edema noted on the distal extremity proximal to the ankle joint DERM- surgical site remains intact with surgical site well coapted, no dehiscence, capri-surgical site appears macerated with gross lichenification of pedal skin, medial surgical site appears to less macerated, the lateral distal stump site has a circular opening which measures approx 1 cm x 1 cm with a significant amount of depth, sinus track through the open site tracks medially dorsomedially, proximally and distally, no active drainage up on pressure from all direction towards the opening, no malodor present NEURO- gross and protective pedal sensation are diminished ORTHO- minimal tenderness noted to palp of the surgical site - Back Exam Back Exam: absent: CVA tenderness (L), CVA tenderness (R) - Neurological Exam Neurological Exam: Alert, Awake, Oriented x3 - Psychiatric Exam Psychiatric exam: Normal Mood - Skin Skin Exam: Dry Assessment and Plan (1) Anemia Status: Acute (2) Chronic ulcer of left leg Status: Chronic (3) HIV disease Status: Chronic (4) GAEL (acute kidney injury) Status: Acute (5) Abscess and cellulitis Status: Acute
[2017-08-12 17:31] LABS: CALCIUM 9.3 mg/dl (8.6-10.4)
[2017-08-12 19:39] LABS: MEAN CELL VOLUME 87.6 fL (81.0-99.0); MEAN CORPUSCULAR HGB CONC 33.1 g/dL (33.0-37.0); MEAN PLATELET VOLUME 6.3 fL (7.2-11.7); RBC 3.12 Mil/uL (3.80-5.20); RED CELL DISTRIBUTION WIDTH 16.5 % (11.5-14.5); WHITE BLOOD COUNT 12.4 K/uL (4.8-10.8)
[2017-08-12] MEDS ORDERED: Sod Polystyrene Sulf 15 gm/60 ml Susp PO ONE (21:26)
[2017-08-12] MEDS: (Lantus) Insulin Glargine, Recombinant SC SCH (22:05)
[2017-08-12] MEDS: DiphenhydrAMINE 50 mg/ml Inj IVP PRN (22:35)
--- NOTE | 2017-08-13 02:34 | PN ---
DATE: 08/12/2017 FOLLOWUP RENAL CONSULTATION LOCATION: The patient is located in room 570, Bed A. REQUESTED BY: Art Nathan MD REASON FOR FOLLOWUP: Acute renal failure, chronic kidney disease, anemia. HISTORY OF PRESENT ILLNESS: Mrs. Johnson is a 36-year-old young transgender female with a past medical history significant for longstanding hypertension, diabetes, HIV positive, Charcot's foot, osteomyelitis, anemia, nephrotic range proteinuria, increased BUN and creatinine, metabolic acidosis, secondary hyperparathyroidism, noncompliance with medications, diet, who was admitted with left foot drainage, and subsequently, the patient underwent a transmetatarsal amputation of the left leg. The patient is not in acute distress, and denies any headache, dizziness. Denies any chest pain or palpitation. Denies any fever or cough. No abdominal pain. No nausea, vomiting, diarrhea. PHYSICAL EXAMINATION: VITAL SIGNS: This morning, as follows, blood pressure 167/93, pulse 77, respirations 18, temperature 98.5, saturation 96%. Height 6 feet 3 inches, and weight is 280 pounds. GENERAL: Mrs. Johnson is 36 years old transgender female, well-built, well-nourished, looks male externally, not in distress. HEENT: Pupils normal and reactive to light and accommodation. Conjunctivae pink. Sclerae anicteric. Tongue is moist. Trachea is midline. LUNGS: Symmetric on both sides. Bilateral breath sounds present. Clear to auscultation. CVS: [place] at the fifth intercostal space, midclavicular line. S1, S2 audible. No murmur or gallop. ABDOMEN: Normal in appearance, soft, tympanic. No guarding. No rigidity. No hepatosplenomegaly. DRYWALL APPLICATOR: The patient is alert, awake, oriented x3. Nonfocal neuro examination. Cranial nerves II through XII grossly intact. Sensory and motor system is within normal limits. EXTREMITIES: No cyanosis, no clubbing, no edema on the right leg. The patient has a swelling of the left leg, below the knee joint. MEDICATIONS: Reviewed. Included cefepime 1 gm daily, Florastor 250 mg p.o. b.i.d., Lantus 16 units subcu at bedtime, morphine sulfate 2 mg IV every 4 hours, Nephro-Rosario 1 tablet daily, labetalol 300 every 8 hours, amlodipine 10 mg daily, NovoLog for sliding scale, NovoLog 16 units subcu b.i.d., Procrit 20,000 units three times a week, Rocaltrol 0.25 mcg p.o. three times a day, sodium bicarb 650 mg p.o. every 8 hours, Tylenol 650 p.o. p.r.n., vancomycin 1 gm every 48 hours, Zofran 4 mg IV every 6 hours, Zoloft 50 mg p.o. daily. LABORATORY DATA: Include as follows: As of 08/12/2017, WBC 12.4, hemoglobin 9, hematocrit is 27.3, platelets 484. Sodium 139, potassium 5.6, chloride 108, CO2 of 23, BUN 45, creatinine 3.7, glucose 132, calcium 9.3. IMPRESSION: In summary, Mrs. Johnson is a 36-year-old young transgender female with hypertension, diabetes, proteinuria, Charcot's right foot, osteomyelitis, human immunodeficiency virus positive, noncompliance with medications, hyperkalemia, metabolic acidosis, secondary hyperparathyroidism who was admitted with left leg foot drainage, and subsequently, the patient underwent transmetatarsal amputation. 1. Acute renal failure, on chronic kidney disease. 2. Proteinuria, rule out diabetic nephropathy, rule out chronic glomerulonephritis, rule out human immunodeficiency virus associated nephropathy, rule out multiple myeloma. 3. Anemia secondary to renal failure, iron deficiency, and human immunodeficiency virus, and also infection, cannot rule out multiple myeloma. 4. Hypertension. Blood pressure is stable. Continue labetalol and Norvasc. 5. Metabolic acidosis. Continue sodium bicarb. 6. Secondary hyperparathyroidism. Continue calcitriol 0.25 mcg three times a week. 7. Status post transmetatarsal amputation of the left foot. Continue IV antibiotics as per Dr. Del Valle, vancomycin and cefepime. 8. Hyperkalemia, secondary to renal failure, noncompliance with diet. We will give Kayexalate 30 gm p.o. x1 dose. We will follow with you. Weston Brambila MD [facility] # [id number]
[2017-08-13] MEDS: Morphine 4 MG/ML VIAL IV PRN ×4 (02:50→14:48)
[2017-08-13] MEDS: (Novolin R) Insulin Human Regular 100 units/ml vial SC SCH ×4 (07:39→21:52)
[2017-08-13 07:53] LABS: BASO # 0.1 K/uL (0.0-0.2); BASO % 0.8 % (0.0-2.0); EOS # 0.7 K/uL (0.0-0.7); EOS % 5.9 % (0.0-4.0); HEMOGLOBIN 9.1 g/dL (11.0-16.0); LYMPH # 2.8 K/uL (1.0-4.3); LYMPH % 24.1 % (20.0-40.0); MEAN CORPUSCULAR HGB CONC 32.9 g/dL (33.0-37.0); MEAN PLATELET VOLUME 6.3 fL (7.2-11.7); MONO % 8.3 % (0.0-10.0); NEUT # 7.1 K/uL (1.8-7.0); NEUT % 60.9 % (50.0-75.0); NRBC % 0.1 % (0.0-2.0); RBC 3.14 Mil/uL (3.80-5.20); RED CELL DISTRIBUTION WIDTH 16.1 % (11.5-14.5); WHITE BLOOD COUNT 11.7 K/uL (4.8-10.8)
[2017-08-13] MEDS: Multivitamin Vitamin B Complex (Nephro-Vite) Tab PO SCH (08:50)
[2017-08-13] MEDS: Labetalol Hydrochloride 300 mg Tab PO SCH ×3 (08:50→23:40)
--- NOTE | 2017-08-13 08:50 | CP.PCM.PN ---
Subjective - Date & Time of Evaluation Date of Evaluation: 08/13/17 Time of Evaluation: 08:50 - Subjective Subjective: pt is seen and examined, follow up consult is dictated #[id number] Objective - Vital Signs/Intake and Output Vital Signs (last 24 hours): Temp Pulse Resp BP Pulse Ox 98.3 F 82 20 143/87 100 08/13/17 00:00 08/13/17 00:00 08/13/17 00:00 08/13/17 00:00 08/13/17 00:00 - Medications Medications: Current Medications Acetaminophen (Tylenol 325mg Tab) 650 mg PO ONCE PRN PRN Reason: Fever >100.4 F Amlodipine Besylate (Norvasc) 10 mg PO DAILY [facility] Last Admin: 08/12/17 09:16 Dose: 10 mg Calcitriol (Rocaltrol) 0.25 mcg PO TTS [facility] Last Admin: 08/12/17 09:15 Dose: 0.25 mcg Diphenhydramine HCl (Benadryl) 50 mg IVP HS PRN PRN Reason: Insomnia Last Admin: 08/12/17 22:35 Dose: 50 mg Epoetin Anival (Procrit) 20,000 unit SC TTS [facility] Last Admin: 08/12/17 10:51 Dose: 20,000 unit Vancomycin/Sodium Chloride (Vancomycin 1 Gm/Ns 200 Ml) 1 gm in 200 mls @ 133.333 mls/hr IVPB Q48H [facility] PRN Reason: Protocol Last Admin: 08/12/17 14:48 Dose: 133.333 mls/hr Cefepime HCl 1 gm/ Dextrose 50 mls @ 100 mls/hr IVPB DAILY [facility] PRN Reason: Protocol Last Admin: 08/12/17 10:53 Dose: 100 mls/hr Insulin Aspart (Novolog) 16 unit SC BID [facility] Last Admin: 08/12/17 17:11 Dose: Not Given Insulin Glargine (Lantus) 16 unit SC HS [facility] Last Admin: 08/12/17 22:05 Dose: Not Given Insulin Human Regular (Novolin R) 0 unit SC ACHS [facility] PRN Reason: Protocol Last Admin: 08/13/17 07:39 Dose: Not Given Labetalol HCl (Normodyne) 300 mg PO Q8H [facility] Last Admin: 08/12/17 17:06 Dose: 300 mg Morphine Sulfate (Morphine) 2 mg IV Q4 PRN PRN Reason: Pain, severe (8-10) Last Admin: 08/13/17 06:50 Dose: 2 mg Ondansetron HCl (Zofran Inj) 4 mg IVP Q6H PRN PRN Reason: Nausea/Vomiting Last Admin: 08/11/17 11:59 Dose: 4 mg Saccharomyces Boulardii (Florastor) 250 mg PO BID [facility] Last Admin: 08/12/17 17:06 Dose: 250 mg Sertraline HCl (Zoloft) 50 mg PO DAILY [facility] Last Admin: 08/12/17 09:15 Dose: 50 mg Sodium Bicarbonate (Sodium Bicarbonate Tab) 650 mg PO Q8 [facility] Last Admin: 08/13/17 06:19 Dose: 650 mg Sodium Hypochlorite (Dakins Solution 0.125%) 0 appl TOP DAILY [facility] Last Admin: 08/12/17 09:16 Dose: 20 appl Vitamin B Complex/Vit C/Folic Acid (Nephro-Rosario) 1 tab PO 0800 [facility] Last Admin: 08/12/17 08:15 Dose: 1 tab - Labs Labs: 08/13/17 07:50 08/12/17 16:55 PT 14.4 SECONDS (9.7-12.2) H 08/05/17 14:01 INR 1.3 08/05/17 14:01 APTT 34 SECONDS (21-34) 08/05/17 14:01
--- NOTE | 2017-08-13 10:13 | CP.PCM.PN ---
Subjective - Date & Time of Evaluation Date of Evaluation: 08/13/17 Time of Evaluation: 10:13 - Subjective Subjective: Podiatry Progress note for Dr. 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 She denies any pain or discomfort at this time. She states that she did participate in physical therapy yesterday. Denies f/c/sob/cp at this time. No other pedal complaints today. Objective - Vital Signs/Intake and Output Vital Signs (last 24 hours): Temp Pulse Resp BP Pulse Ox 98.4 F 80 18 180/98 H 97 08/13/17 07:00 08/13/17 07:00 08/13/17 07:00 08/13/17 07:00 08/13/17 07:00 - Medications Medications: Current Medications Acetaminophen (Tylenol 325mg Tab) 650 mg PO ONCE PRN PRN Reason: Fever >100.4 F Amlodipine Besylate (Norvasc) 10 mg PO DAILY [facility] Last Admin: 08/12/17 09:16 Dose: 10 mg Calcitriol (Rocaltrol) 0.25 mcg PO TTS [facility] Last Admin: 08/12/17 09:15 Dose: 0.25 mcg Diphenhydramine HCl (Benadryl) 50 mg IVP HS PRN PRN Reason: Insomnia Last Admin: 08/12/17 22:35 Dose: 50 mg Epoetin Anival (Procrit) 20,000 unit SC TTS [facility] Last Admin: 08/12/17 10:51 Dose: 20,000 unit Vancomycin/Sodium Chloride (Vancomycin 1 Gm/Ns 200 Ml) 1 gm in 200 mls @ 133.333 mls/hr IVPB Q48H [facility] PRN Reason: Protocol Last Admin: 08/12/17 14:48 Dose: 133.333 mls/hr Cefepime HCl 1 gm/ Dextrose 50 mls @ 100 mls/hr IVPB DAILY [facility] PRN Reason: Protocol Last Admin: 08/12/17 10:53 Dose: 100 mls/hr Insulin Aspart (Novolog) 16 unit SC BID [facility] Last Admin: 08/12/17 17:11 Dose: Not Given Insulin Glargine (Lantus) 16 unit SC HS [facility] Last Admin: 08/12/17 22:05 Dose: Not Given Insulin Human Regular (Novolin R) 0 unit SC ACHS [facility] PRN Reason: Protocol Last Admin: 08/13/17 07:39 Dose: Not Given Labetalol HCl (Normodyne) 300 mg PO Q8H [facility] Last Admin: 08/13/17 08:50 Dose: 300 mg Morphine Sulfate (Morphine) 2 mg IV Q4 PRN PRN Reason: Pain, severe (8-10) Last Admin: 08/13/17 06:50 Dose: 2 mg Ondansetron HCl (Zofran Inj) 4 mg IVP Q6H PRN PRN Reason: Nausea/Vomiting Last Admin: 08/11/17 11:59 Dose: 4 mg Saccharomyces Boulardii (Florastor) 250 mg PO BID [facility] Last Admin: 08/12/17 17:06 Dose: 250 mg Sertraline HCl (Zoloft) 50 mg PO DAILY [facility] Last Admin: 08/12/17 09:15 Dose: 50 mg Sodium Bicarbonate (Sodium Bicarbonate Tab) 650 mg PO Q8 [facility] Last Admin: 08/13/17 06:19 Dose: 650 mg Sodium Hypochlorite (Dakins Solution 0.125%) 0 appl TOP DAILY [facility] Last Admin: 08/12/17 09:16 Dose: 20 appl Vitamin B Complex/Vit C/Folic Acid (Nephro-Rosario) 1 tab PO 0800 [facility] Last Admin: 08/13/17 08:50 Dose: 1 tab - Labs Labs: 08/13/17 07:50 08/12/17 16:55 PT 14.4 SECONDS (9.7-12.2) H 08/05/17 14:01 INR 1.3 08/05/17 14:01 APTT 34 SECONDS (21-34) 08/05/17 14:01 - Constitutional Appears: Well, Non-toxic, No Acute Distress - Extremities Exam Additional comments: Left Lower Extremity exam: dressing appears c/d/i with no strikethrough evident VASC- DP pulse faintly palpable, skin temp runs warm to warm, minimal non- pitting edema noted on the distal extremity proximal to the ankle joint DERM- surgical site remains intact with surgical site well coapted, no dehiscence, capri-surgical site appears macerated with gross lichenification of pedal skin, medial surgical site appears to less macerated, the lateral distal stump site has a circular opening which measures approx 1 cm x 1 cm with a significant amount of depth, sinus track through the open site tracks medially dorsomedially, proximally and distally, mild amount of sanginous drainage noted from wound, no malodor present NEURO- gross and protective pedal sensation are diminished ORTHO- minimal tenderness noted to palp of the surgical site - Neurological Exam Neurological Exam: Alert, Awake, Oriented x3 - Psychiatric Exam Psychiatric exam: Normal Affect, Normal Mood Assessment and Plan - Assessment and Plan (Free Text) Assessment: 36 year old female patient seen 7 days s/p Chopart's amputation Plan: Patient examined and evaluated at bedside Discussed with attending, Dr. Coy Labs and vitals reviewed - afebrile, WBC 11.7 dressing change with betadine soaked 4x4, DSD, kerlix, coban dressing to be changed daily Intra-op wound cultures: Coagulase Neg Staph c/w IV abx as per ID Dr. Del Valle Continue pain mgt per primary team pt may be PWB to heel in surgical shoe with the assistance of a walker podiatry will cont to follow patient while in house
[2017-08-13] MEDS: Saccharomyces Boulardi 250 mg Cap PO SCH ×2 (10:59→17:59)
[2017-08-13] MEDS: (Novolog) Insulin Aspart, Recombinant 100 u/ml 10 ml vial SC SCH ×2 (11:00→18:00)
--- NOTE | 2017-08-13 12:32 | CP.PCM.PN ---
Subjective - Date & Time of Evaluation Date of Evaluation: 08/13/17 Time of Evaluation: 12:29 - Subjective Subjective: PATIENT IS ADMITTED FOR DIABETIC FOOT ULCER S/P TMA DRESSING CHANGE BY PODIATRY PER DR MCKEON (ID) WANT TO CONTINUE ABX IV FOR 4 MORE WEEKS NEW PRESCRIPTION CEFEPIME 1 G IVPB DAILY FOR 4 WEEKS VANCO 1 G IVPB Q48H FOR 4 WEEKS Objective - Vital Signs/Intake and Output Vital Signs (last 24 hours): Temp Pulse Resp BP Pulse Ox 98.4 F 80 18 180/98 H 97 08/13/17 07:00 08/13/17 07:00 08/13/17 07:00 08/13/17 07:00 08/13/17 07:00 - Medications Medications: Current Medications Acetaminophen (Tylenol 325mg Tab) 650 mg PO ONCE PRN PRN Reason: Fever >100.4 F Amlodipine Besylate (Norvasc) 10 mg PO DAILY [facility] Last Admin: 08/13/17 10:59 Dose: 10 mg Calcitriol (Rocaltrol) 0.25 mcg PO TTS [facility] Last Admin: 08/12/17 09:15 Dose: 0.25 mcg Diphenhydramine HCl (Benadryl) 50 mg IVP HS PRN PRN Reason: Insomnia Last Admin: 08/12/17 22:35 Dose: 50 mg Epoetin Anival (Procrit) 20,000 unit SC TTS [facility] Last Admin: 08/12/17 10:51 Dose: 20,000 unit Vancomycin/Sodium Chloride (Vancomycin 1 Gm/Ns 200 Ml) 1 gm in 200 mls @ 133.333 mls/hr IVPB Q48H [facility] PRN Reason: Protocol Last Admin: 08/12/17 14:48 Dose: 133.333 mls/hr Cefepime HCl 1 gm/ Dextrose 50 mls @ 100 mls/hr IVPB DAILY [facility] PRN Reason: Protocol Last Admin: 08/13/17 10:59 Dose: 100 mls/hr Insulin Aspart (Novolog) 16 unit SC BID [facility] Last Admin: 08/13/17 11:00 Dose: Not Given Insulin Glargine (Lantus) 16 unit SC HS [facility] Last Admin: 08/12/17 22:05 Dose: Not Given Insulin Human Regular (Novolin R) 0 unit SC ACHS [facility] PRN Reason: Protocol Last Admin: 08/13/17 12:24 Dose: Not Given Labetalol HCl (Normodyne) 300 mg PO Q8H [facility] Last Admin: 08/13/17 08:50 Dose: 300 mg Morphine Sulfate (Morphine) 2 mg IV Q4 PRN PRN Reason: Pain, severe (8-10) Last Admin: 08/13/17 10:56 Dose: 2 mg Ondansetron HCl (Zofran Inj) 4 mg IVP Q6H PRN PRN Reason: Nausea/Vomiting Last Admin: 08/11/17 11:59 Dose: 4 mg Saccharomyces Boulardii (Florastor) 250 mg PO BID [facility] Last Admin: 08/13/17 10:59 Dose: 250 mg Sertraline HCl (Zoloft) 50 mg PO DAILY [facility] Last Admin: 08/13/17 10:59 Dose: 50 mg Sodium Bicarbonate (Sodium Bicarbonate Tab) 650 mg PO Q8 [facility] Last Admin: 08/13/17 06:19 Dose: 650 mg Sodium Hypochlorite (Dakins Solution 0.125%) 0 appl TOP DAILY [facility] Last Admin: 08/13/17 11:00 Dose: Not Given Vitamin B Complex/Vit C/Folic Acid (Nephro-Rosario) 1 tab PO 0800 [facility] Last Admin: 08/13/17 08:50 Dose: 1 tab - Labs Labs: 08/13/17 07:50 08/12/17 16:55 PT 14.4 SECONDS (9.7-12.2) H 08/05/17 14:01 INR 1.3 08/05/17 14:01 APTT 34 SECONDS (21-34) 08/05/17 14:01
--- NOTE | 2017-08-13 12:52 | CP.PCM.PN ---
Subjective - Date & Time of Evaluation Date of Evaluation: 08/13/17 Time of Evaluation: 12:50 - Subjective Subjective: CONDITION SAME. AFEBRILE. Objective - Vital Signs/Intake and Output Vital Signs (last 24 hours): Temp Pulse Resp BP Pulse Ox 98.4 F 80 18 180/98 H 97 08/13/17 07:00 08/13/17 07:00 08/13/17 07:00 08/13/17 07:00 08/13/17 07:00 - Medications Medications: Current Medications Acetaminophen (Tylenol 325mg Tab) 650 mg PO ONCE PRN PRN Reason: Fever >100.4 F Amlodipine Besylate (Norvasc) 10 mg PO DAILY [facility] Last Admin: 08/13/17 10:59 Dose: 10 mg Calcitriol (Rocaltrol) 0.25 mcg PO TTS [facility] Last Admin: 08/12/17 09:15 Dose: 0.25 mcg Diphenhydramine HCl (Benadryl) 50 mg IVP HS PRN PRN Reason: Insomnia Last Admin: 08/12/17 22:35 Dose: 50 mg Epoetin Anival (Procrit) 20,000 unit SC TTS [facility] Last Admin: 08/12/17 10:51 Dose: 20,000 unit Vancomycin/Sodium Chloride (Vancomycin 1 Gm/Ns 200 Ml) 1 gm in 200 mls @ 133.333 mls/hr IVPB Q48H [facility] PRN Reason: Protocol Last Admin: 08/12/17 14:48 Dose: 133.333 mls/hr Cefepime HCl 1 gm/ Dextrose 50 mls @ 100 mls/hr IVPB DAILY [facility] PRN Reason: Protocol Last Admin: 08/13/17 10:59 Dose: 100 mls/hr Insulin Aspart (Novolog) 16 unit SC BID [facility] Last Admin: 08/13/17 11:00 Dose: Not Given Insulin Glargine (Lantus) 16 unit SC HS [facility] Last Admin: 08/12/17 22:05 Dose: Not Given Insulin Human Regular (Novolin R) 0 unit SC ACHS [facility] PRN Reason: Protocol Last Admin: 08/13/17 12:24 Dose: Not Given Labetalol HCl (Normodyne) 300 mg PO Q8H [facility] Last Admin: 08/13/17 08:50 Dose: 300 mg Morphine Sulfate (Morphine) 2 mg IV Q4 PRN PRN Reason: Pain, severe (8-10) Last Admin: 08/13/17 10:56 Dose: 2 mg Ondansetron HCl (Zofran Inj) 4 mg IVP Q6H PRN PRN Reason: Nausea/Vomiting Last Admin: 08/11/17 11:59 Dose: 4 mg Saccharomyces Boulardii (Florastor) 250 mg PO BID [facility] Last Admin: 08/13/17 10:59 Dose: 250 mg Sertraline HCl (Zoloft) 50 mg PO DAILY [facility] Last Admin: 08/13/17 10:59 Dose: 50 mg Sodium Bicarbonate (Sodium Bicarbonate Tab) 650 mg PO Q8 [facility] Last Admin: 08/13/17 06:19 Dose: 650 mg Sodium Hypochlorite (Dakins Solution 0.125%) 0 appl TOP DAILY [facility] Last Admin: 08/13/17 11:00 Dose: Not Given Vitamin B Complex/Vit C/Folic Acid (Nephro-Rosario) 1 tab PO 0800 [facility] Last Admin: 08/13/17 08:50 Dose: 1 tab - Labs Labs: 08/13/17 07:50 08/12/17 16:55 PT 14.4 SECONDS (9.7-12.2) H 08/05/17 14:01 INR 1.3 08/05/17 14:01 APTT 34 SECONDS (21-34) 08/05/17 14:01 - Constitutional Appears: No Acute Distress, Chronically Ill - Eye Exam Eye Exam: EOMI, Normal appearance, PERRL Pupil Exam: NORMAL ACCOMODATION, PERRL - ENT Exam ENT Exam: Mucous Membranes Moist, Normal Exam - Neck Exam Neck Exam: Full ROM, Normal Inspection. absent: Lymphadenopathy - Respiratory Exam Respiratory Exam: Clear to Ausculation Bilateral, NORMAL BREATHING PATTERN - Cardiovascular Exam Cardiovascular Exam: REGULAR RHYTHM, +S1, +S2. absent: Murmur - GI/Abdominal Exam GI & Abdominal Exam: Soft, Normal Bowel Sounds. absent: Tenderness - Extremities Exam Extremities Exam: Full ROM, Normal Capillary Refill, Normal Inspection. absent : Joint Swelling, Pedal Edema - Back Exam Back Exam: NORMAL INSPECTION Assessment and Plan - Assessment and Plan (Free Text) Assessment: OM LT FOOT. Plan: FOR IV ABTS 4 WKS. DISCUSSED WITH PT FOR ALBERT. WILL ANSWER TOMORROW.
--- NOTE | 2017-08-13 13:19 | CP.PCM.PN ---
Subjective - Date & Time of Evaluation Date of Evaluation: 08/13/17 Time of Evaluation: 12:10 - Subjective Subjective: No complaints. Objective - Vital Signs/Intake and Output Vital Signs (last 24 hours): Temp Pulse Resp BP Pulse Ox 98.4 F 80 18 180/98 H 97 08/13/17 07:00 08/13/17 07:00 08/13/17 07:00 08/13/17 07:00 08/13/17 07:00 - Medications Medications: Current Medications Acetaminophen (Tylenol 325mg Tab) 650 mg PO ONCE PRN PRN Reason: Fever >100.4 F Amlodipine Besylate (Norvasc) 10 mg PO DAILY [facility] Last Admin: 08/13/17 10:59 Dose: 10 mg Calcitriol (Rocaltrol) 0.25 mcg PO TTS [facility] Last Admin: 08/12/17 09:15 Dose: 0.25 mcg Diphenhydramine HCl (Benadryl) 50 mg IVP HS PRN PRN Reason: Insomnia Last Admin: 08/12/17 22:35 Dose: 50 mg Epoetin Anival (Procrit) 20,000 unit SC TTS [facility] Last Admin: 08/12/17 10:51 Dose: 20,000 unit Vancomycin/Sodium Chloride (Vancomycin 1 Gm/Ns 200 Ml) 1 gm in 200 mls @ 133.333 mls/hr IVPB Q48H [facility] PRN Reason: Protocol Last Admin: 08/12/17 14:48 Dose: 133.333 mls/hr Cefepime HCl 1 gm/ Dextrose 50 mls @ 100 mls/hr IVPB DAILY [facility] PRN Reason: Protocol Last Admin: 08/13/17 10:59 Dose: 100 mls/hr Insulin Aspart (Novolog) 16 unit SC BID [facility] Last Admin: 08/13/17 11:00 Dose: Not Given Insulin Glargine (Lantus) 16 unit SC HS [facility] Last Admin: 08/12/17 22:05 Dose: Not Given Insulin Human Regular (Novolin R) 0 unit SC ACHS [facility] PRN Reason: Protocol Last Admin: 08/13/17 12:24 Dose: Not Given Labetalol HCl (Normodyne) 300 mg PO Q8H [facility] Last Admin: 08/13/17 08:50 Dose: 300 mg Morphine Sulfate (Morphine) 2 mg IV Q4 PRN PRN Reason: Pain, severe (8-10) Last Admin: 08/13/17 10:56 Dose: 2 mg Ondansetron HCl (Zofran Inj) 4 mg IVP Q6H PRN PRN Reason: Nausea/Vomiting Last Admin: 08/11/17 11:59 Dose: 4 mg Saccharomyces Boulardii (Florastor) 250 mg PO BID [facility] Last Admin: 08/13/17 10:59 Dose: 250 mg Sertraline HCl (Zoloft) 50 mg PO DAILY [facility] Last Admin: 08/13/17 10:59 Dose: 50 mg Sodium Bicarbonate (Sodium Bicarbonate Tab) 650 mg PO Q8 [facility] Last Admin: 08/13/17 06:19 Dose: 650 mg Sodium Hypochlorite (Dakins Solution 0.125%) 0 appl TOP DAILY [facility] Last Admin: 08/13/17 11:00 Dose: Not Given Vitamin B Complex/Vit C/Folic Acid (Nephro-Rosario) 1 tab PO 0800 [facility] Last Admin: 08/13/17 08:50 Dose: 1 tab - Labs Labs: 08/13/17 07:50 08/12/17 16:55 PT 14.4 SECONDS (9.7-12.2) H 08/05/17 14:01 INR 1.3 08/05/17 14:01 APTT 34 SECONDS (21-34) 08/05/17 14:01 - Head Exam Head Exam: ATRAUMATIC - Eye Exam Eye Exam: Normal appearance - ENT Exam ENT Exam: Mucous Membranes Dry - Respiratory Exam Respiratory Exam: NORMAL BREATHING PATTERN - Cardiovascular Exam Cardiovascular Exam: +S1, +S2 - GI/Abdominal Exam GI & Abdominal Exam: Normal Bowel Sounds Assessment and Plan (1) Anemia Assessment & Plan: multifactorial anemia of chronic disease from osteomyelitis anemia of CKD anemia of HIV on KIT to decrease transfusion requirements. transfusion support PRN Status: Acute (2) Monoclonal gammopathy Assessment & Plan: + monoclonal protein detected in urine abnormal free light chain ratio skeletal survey to evaluate for lytic lesions possible bone marrow +/- kidney biopsy; discussed with the patient who prefers to not have a biopsy during this admission but will reconsider at a later date. Status: Acute
[2017-08-13 16:11] LABS: ALB/GLOB RATIO 0.5 (1.0-2.1); CALCIUM 9.2 mg/dl (8.6-10.4)
--- NOTE | 2017-08-13 17:32 | CP.PCM.PN ---
Subjective - Date & Time of Evaluation Date of Evaluation: 08/13/17 Time of Evaluation: 08:00 - Subjective Subjective: RX IN PROGRESS REFUSING BKA NEEDS CONT RX Objective - Vital Signs/Intake and Output Vital Signs (last 24 hours): Temp Pulse Resp BP Pulse Ox 98.5 F 80 20 167/90 H 96 08/13/17 16:00 08/13/17 16:00 08/13/17 16:00 08/13/17 16:00 08/13/17 16:00 Intake and Output: 08/13/17 08/13/17 06:59 18:59 Intake Total 670 Balance 670 - Medications Medications: Current Medications Acetaminophen (Tylenol 325mg Tab) 650 mg PO ONCE PRN PRN Reason: Fever >100.4 F Amlodipine Besylate (Norvasc) 10 mg PO DAILY [facility] Last Admin: 08/13/17 10:59 Dose: 10 mg Calcitriol (Rocaltrol) 0.25 mcg PO TTS [facility] Last Admin: 08/12/17 09:15 Dose: 0.25 mcg Diphenhydramine HCl (Benadryl) 50 mg IVP HS PRN PRN Reason: Insomnia Last Admin: 08/12/17 22:35 Dose: 50 mg Epoetin Anival (Procrit) 20,000 unit SC TTS [facility] Last Admin: 08/12/17 10:51 Dose: 20,000 unit Vancomycin/Sodium Chloride (Vancomycin 1 Gm/Ns 200 Ml) 1 gm in 200 mls @ 133.333 mls/hr IVPB Q48H [facility] PRN Reason: Protocol Last Admin: 08/12/17 14:48 Dose: 133.333 mls/hr Cefepime HCl 1 gm/ Dextrose 50 mls @ 100 mls/hr IVPB DAILY [facility] PRN Reason: Protocol Last Admin: 08/13/17 10:59 Dose: 100 mls/hr Insulin Aspart (Novolog) 16 unit SC BID [facility] Last Admin: 08/13/17 11:00 Dose: Not Given Insulin Glargine (Lantus) 16 unit SC HS [facility] Last Admin: 08/12/17 22:05 Dose: Not Given Insulin Human Regular (Novolin R) 0 unit SC ACHS [facility] PRN Reason: Protocol Last Admin: 08/13/17 12:24 Dose: Not Given Labetalol HCl (Normodyne) 300 mg PO Q8H [facility] Last Admin: 08/13/17 08:50 Dose: 300 mg Morphine Sulfate (Morphine) 2 mg IV Q4 PRN PRN Reason: Pain, severe (8-10) Last Admin: 08/13/17 14:48 Dose: 2 mg Ondansetron HCl (Zofran Inj) 4 mg IVP Q6H PRN PRN Reason: Nausea/Vomiting Last Admin: 08/11/17 11:59 Dose: 4 mg Oxycodone HCl (Oxycodone Immediate Release Tab) 30 mg PO Q6H PRN PRN Reason: Pain, moderate (4-7) Saccharomyces Boulardii (Florastor) 250 mg PO BID [facility] Last Admin: 08/13/17 10:59 Dose: 250 mg Sertraline HCl (Zoloft) 50 mg PO DAILY [facility] Last Admin: 08/13/17 10:59 Dose: 50 mg Sodium Bicarbonate (Sodium Bicarbonate Tab) 650 mg PO Q8 [facility] Last Admin: 08/13/17 14:52 Dose: Not Given Sodium Hypochlorite (Dakins Solution 0.125%) 0 appl TOP DAILY [facility] Last Admin: 08/13/17 11:00 Dose: Not Given Vitamin B Complex/Vit C/Folic Acid (Nephro-Rosario) 1 tab PO 0800 [facility] Last Admin: 08/13/17 08:50 Dose: 1 tab - Labs Labs: 08/13/17 07:50 08/13/17 15:42 PT 14.4 SECONDS (9.7-12.2) H 08/05/17 14:01 INR 1.3 08/05/17 14:01 APTT 34 SECONDS (21-34) 08/05/17 14:01 - Constitutional Appears: Non-toxic, Chronically Ill - Head Exam Head Exam: NORMOCEPHALIC - Eye Exam Eye Exam: PERRL - ENT Exam ENT Exam: Mucous Membranes Dry - Neck Exam Neck Exam: absent: Lymphadenopathy - Respiratory Exam Respiratory Exam: Decreased Breath Sounds - Cardiovascular Exam Cardiovascular Exam: REGULAR RHYTHM - GI/Abdominal Exam GI & Abdominal Exam: Distended - Rectal Exam Rectal Exam: Deferred Assessment and Plan (1) Anemia Status: Acute (2) Chronic ulcer of left leg Status: Chronic (3) HIV disease Status: Chronic (4) GAEL (acute kidney injury) Status: Acute (5) Abscess and cellulitis Status: Acute
[2017-08-13] MEDS: oxyCODONE 30 mg Immediate Release Tab PO PRN (18:00)
[2017-08-13] MEDS: (Lantus) Insulin Glargine, Recombinant SC SCH (21:59)
[2017-08-14] MEDS: Labetalol Hydrochloride 300 mg Tab PO SCH ×4 (00:13→23:49)
[2017-08-14] MEDS: DiphenhydrAMINE 50 mg/ml Inj IVP PRN ×3 (00:14→20:18)
[2017-08-14] MEDS: oxyCODONE 30 mg Immediate Release Tab PO PRN ×4 (00:14→18:33)
[2017-08-14] MEDS: (Novolin R) Insulin Human Regular 100 units/ml vial SC SCH ×4 (07:29→21:49)
[2017-08-14 07:53] LABS: BASO # 0.1 K/uL (0.0-0.2); BASO % 1.2 % (0.0-2.0); EOS # 0.8 K/uL (0.0-0.7); EOS % 6.6 % (0.0-4.0); HEMOGLOBIN 9.3 g/dL (11.0-16.0); LYMPH # 3.4 K/uL (1.0-4.3); LYMPH % 29.6 % (20.0-40.0); MEAN CORPUSCULAR HEMOGLOBIN 29.4 pg (27.0-31.0); MEAN CORPUSCULAR HGB CONC 33.4 g/dL (33.0-37.0); MEAN PLATELET VOLUME 6.6 fL (7.2-11.7); MONO # 1.1 K/uL (0.0-0.8); NEUT # 6.1 K/uL (1.8-7.0); NEUT % 52.6 % (50.0-75.0); NRBC % 0.1 % (0.0-2.0); RBC 3.16 Mil/uL (3.80-5.20); RED CELL DISTRIBUTION WIDTH 16.8 % (11.5-14.5); WHITE BLOOD COUNT 11.5 K/uL (4.8-10.8)
[2017-08-14 08:09] LABS: ALB/GLOB RATIO 0.5 (1.0-2.1); ALBUMIN 3.2 g/dL (3.5-5.0); CALCIUM 9.2 mg/dl (8.6-10.4)
[2017-08-14] MEDS: Sodium Chloride 0.45% 1,000 ML IV SCH ×2 (09:11→21:26)
[2017-08-14] MEDS: Multivitamin Vitamin B Complex (Nephro-Vite) Tab PO SCH (09:14)
[2017-08-14] MEDS: Saccharomyces Boulardi 250 mg Cap PO SCH ×2 (09:14→18:34)
[2017-08-14] MEDS: Epoetin Alfa Dialysis 20000 UNIT/ML Inj SC SCH (09:17)
[2017-08-14] MEDS: (Novolog) Insulin Aspart, Recombinant 100 u/ml 10 ml vial SC SCH ×2 (09:17→18:34)
[2017-08-14] MEDS ORDERED: Sod Polystyrene Sulf 15 gm/60 ml Susp PO ONE (10:00)
--- NOTE | 2017-08-14 10:44 | CP.PCM.PN ---
Subjective - Date & Time of Evaluation Date of Evaluation: 08/14/17 Time of Evaluation: 10:42 - Subjective Subjective: CONDITION SAME. Objective - Vital Signs/Intake and Output Vital Signs (last 24 hours): Temp Pulse Resp BP Pulse Ox 98.1 F 79 20 120/56 L 98 08/14/17 08:32 08/14/17 08:32 08/14/17 08:32 08/14/17 08:32 08/14/17 08:32 - Medications Medications: Current Medications Acetaminophen (Tylenol 325mg Tab) 650 mg PO ONCE PRN PRN Reason: Fever >100.4 F Amlodipine Besylate (Norvasc) 10 mg PO DAILY [facility] Last Admin: 08/14/17 09:16 Dose: 10 mg Calcitriol (Rocaltrol) 0.25 mcg PO TTS [facility] Last Admin: 08/14/17 09:14 Dose: 0.25 mcg Diphenhydramine HCl (Benadryl) 50 mg IVP Q6H PRN PRN Reason: Insomnia Epoetin Ainval (Procrit) 20,000 unit SC TTS [facility] Last Admin: 08/14/17 09:17 Dose: Not Given Vancomycin/Sodium Chloride (Vancomycin 1 Gm/Ns 200 Ml) 1 gm in 200 mls @ 133.333 mls/hr IVPB Q48H [facility] PRN Reason: Protocol Last Admin: 08/12/17 14:48 Dose: 133.333 mls/hr Cefepime HCl 1 gm/ Dextrose 50 mls @ 100 mls/hr IVPB DAILY [facility] PRN Reason: Protocol Last Admin: 08/14/17 09:15 Dose: 100 mls/hr Sodium Chloride (Sodium Chloride 0.45%) 1,000 mls @ 80 mls/hr IV .[id number] [facility] Last Admin: 08/14/17 09:11 Dose: 80 mls/hr Insulin Aspart (Novolog) 16 unit SC BID [facility] Last Admin: 08/14/17 09:17 Dose: Not Given Insulin Glargine (Lantus) 16 unit SC HS [facility] Last Admin: 08/13/17 21:59 Dose: 16 unit Insulin Human Regular (Novolin R) 0 unit SC ACHS [facility] PRN Reason: Protocol Last Admin: 08/14/17 07:29 Dose: Not Given Labetalol HCl (Normodyne) 300 mg PO Q8H [facility] Last Admin: 08/14/17 08:31 Dose: Not Given Morphine Sulfate (Morphine) 2 mg IV Q4 PRN PRN Reason: Pain, severe (8-10) Last Admin: 08/13/17 14:48 Dose: 2 mg Ondansetron HCl (Zofran Inj) 4 mg IVP Q6H PRN PRN Reason: Nausea/Vomiting Last Admin: 08/11/17 11:59 Dose: 4 mg Oxycodone HCl (Oxycodone Immediate Release Tab) 30 mg PO Q6H PRN PRN Reason: Pain, moderate (4-7) Last Admin: 08/14/17 06:10 Dose: 30 mg Saccharomyces Boulardii (Florastor) 250 mg PO BID [facility] Last Admin: 08/14/17 09:14 Dose: 250 mg Sertraline HCl (Zoloft) 50 mg PO DAILY [facility] Last Admin: 08/14/17 09:14 Dose: 50 mg Sodium Bicarbonate (Sodium Bicarbonate Tab) 650 mg PO Q8 [facility] Last Admin: 08/14/17 06:10 Dose: 650 mg Sodium Hypochlorite (Dakins Solution 0.125%) 0 appl TOP DAILY [facility] Last Admin: 08/13/17 11:00 Dose: Not Given Vitamin B Complex/Vit C/Folic Acid (Nephro-Rosario) 1 tab PO 0800 [facility] Last Admin: 08/14/17 09:14 Dose: 1 tab - Labs Labs: 08/14/17 07:40 08/14/17 07:40 PT 14.4 SECONDS (9.7-12.2) H 08/05/17 14:01 INR 1.3 08/05/17 14:01 APTT 34 SECONDS (21-34) 08/05/17 14:01 - Constitutional Appears: No Acute Distress, Chronically Ill - Eye Exam Eye Exam: EOMI, Normal appearance, PERRL Pupil Exam: NORMAL ACCOMODATION, PERRL - ENT Exam ENT Exam: Mucous Membranes Moist, Normal Exam - Neck Exam Neck Exam: Full ROM, Normal Inspection. absent: Lymphadenopathy - Respiratory Exam Respiratory Exam: Clear to Ausculation Bilateral, NORMAL BREATHING PATTERN - Cardiovascular Exam Cardiovascular Exam: REGULAR RHYTHM, +S1, +S2. absent: Murmur - GI/Abdominal Exam GI & Abdominal Exam: Soft, Normal Bowel Sounds. absent: Tenderness - Extremities Exam Extremities Exam: Full ROM, Normal Capillary Refill, Normal Inspection. absent : Joint Swelling, Pedal Edema - Back Exam Back Exam: NORMAL INSPECTION - Neurological Exam Neurological Exam: Alert, Awake, CN II-XII Intact, Normal Gait, Oriented x3 Assessment and Plan - Assessment and Plan (Free Text) Assessment: OM LT FOOT. Plan: NO ANSWER GIVEN FOR ALBERT BY PT. CT ALL MEDS.
[2017-08-14] MEDS: Vancomycin 1 gm/NS 200 ml 1 GM/200 ML BAG IVPB SCH (13:36)
--- NOTE | 2017-08-14 14:26 | CP.PCM.PN ---
Subjective - Date & Time of Evaluation Date of Evaluation: 08/14/17 Time of Evaluation: 10:00 - Subjective Subjective: vanco levels ok iv rx renewed Objective - Vital Signs/Intake and Output Vital Signs (last 24 hours): Temp Pulse Resp BP Pulse Ox 98.1 F 79 20 120/56 L 98 08/14/17 08:32 08/14/17 08:32 08/14/17 08:32 08/14/17 08:32 08/14/17 08:32 - Medications Medications: Current Medications Acetaminophen (Tylenol 325mg Tab) 650 mg PO ONCE PRN PRN Reason: Fever >100.4 F Amlodipine Besylate (Norvasc) 10 mg PO DAILY [facility] Last Admin: 08/14/17 09:16 Dose: 10 mg Calcitriol (Rocaltrol) 0.25 mcg PO TTS [facility] Last Admin: 08/14/17 09:14 Dose: 0.25 mcg Diphenhydramine HCl (Benadryl) 50 mg IVP Q6H PRN PRN Reason: Insomnia Last Admin: 08/14/17 13:36 Dose: 50 mg Epoetin Anival (Procrit) 20,000 unit SC TTS [facility] Last Admin: 08/14/17 09:17 Dose: Not Given Vancomycin/Sodium Chloride (Vancomycin 1 Gm/Ns 200 Ml) 1 gm in 200 mls @ 133.333 mls/hr IVPB Q48H [facility] PRN Reason: Protocol Last Admin: 08/14/17 13:36 Dose: 133.333 mls/hr Cefepime HCl 1 gm/ Dextrose 50 mls @ 100 mls/hr IVPB DAILY [facility] PRN Reason: Protocol Last Admin: 08/14/17 09:15 Dose: 100 mls/hr Sodium Chloride (Sodium Chloride 0.45%) 1,000 mls @ 80 mls/hr IV .[id number] [facility] Last Admin: 08/14/17 09:11 Dose: 80 mls/hr Insulin Aspart (Novolog) 16 unit SC BID [facility] Last Admin: 08/14/17 09:17 Dose: Not Given Insulin Glargine (Lantus) 16 unit SC HS [facility] Last Admin: 08/13/17 21:59 Dose: 16 unit Insulin Human Regular (Novolin R) 0 unit SC ACHS [facility] PRN Reason: Protocol Last Admin: 08/14/17 12:14 Dose: Not Given Labetalol HCl (Normodyne) 300 mg PO Q8H [facility] Last Admin: 08/14/17 08:31 Dose: Not Given Morphine Sulfate (Morphine) 2 mg IV Q4 PRN PRN Reason: Pain, severe (8-10) Last Admin: 08/13/17 14:48 Dose: 2 mg Ondansetron HCl (Zofran Inj) 4 mg IVP Q6H PRN PRN Reason: Nausea/Vomiting Last Admin: 08/11/17 11:59 Dose: 4 mg Oxycodone HCl (Oxycodone Immediate Release Tab) 30 mg PO Q6H PRN PRN Reason: Pain, moderate (4-7) Last Admin: 08/14/17 12:25 Dose: 30 mg Saccharomyces Boulardii (Florastor) 250 mg PO BID [facility] Last Admin: 08/14/17 09:14 Dose: 250 mg Sertraline HCl (Zoloft) 50 mg PO DAILY [facility] Last Admin: 08/14/17 09:14 Dose: 50 mg Sodium Bicarbonate (Sodium Bicarbonate Tab) 650 mg PO Q8 [facility] Last Admin: 08/14/17 13:36 Dose: 650 mg Sodium Hypochlorite (Dakins Solution 0.125%) 0 appl TOP DAILY [facility] Last Admin: 08/14/17 09:14 Dose: Not Given Vitamin B Complex/Vit C/Folic Acid (Nephro-Rosario) 1 tab PO 0800 [facility] Last Admin: 08/14/17 09:14 Dose: 1 tab - Labs Labs: 08/14/17 07:40 08/14/17 07:40 PT 14.4 SECONDS (9.7-12.2) H 08/05/17 14:01 INR 1.3 08/05/17 14:01 APTT 34 SECONDS (21-34) 08/05/17 14:01 - Constitutional Appears: Non-toxic, Chronically Ill - Head Exam Head Exam: NORMOCEPHALIC - Eye Exam Eye Exam: PERRL - ENT Exam ENT Exam: Mucous Membranes Dry - Neck Exam Neck Exam: absent: Lymphadenopathy - Respiratory Exam Respiratory Exam: Decreased Breath Sounds - Cardiovascular Exam Cardiovascular Exam: REGULAR RHYTHM - GI/Abdominal Exam GI & Abdominal Exam: Distended, Soft - Rectal Exam Rectal Exam: Deferred - Exam Exam: NORMAL INSPECTION - Extremities Exam Extremities Exam: Pedal Edema - Back Exam Back Exam: absent: CVA tenderness (L), CVA tenderness (R) - Neurological Exam Neurological Exam: Alert, Awake, Oriented x3 Assessment and Plan (1) Anemia Status: Acute (2) Chronic ulcer of left leg Status: Chronic (3) HIV disease Status: Chronic (4) GAEL (acute kidney injury) Status: Acute (5) Abscess and cellulitis Status: Acute
--- NOTE | 2017-08-14 16:59 | CP.PCM.PN ---
Subjective - Date & Time of Evaluation Date of Evaluation: 08/14/17 Time of Evaluation: 16:58 - Subjective Subjective: pt is seen and examined, follow up consult is dictated #[id number] Objective - Vital Signs/Intake and Output Vital Signs (last 24 hours): Temp Pulse Resp BP Pulse Ox 98.1 F 80 20 133/76 98 08/14/17 08:32 08/14/17 09:12 08/14/17 08:32 08/14/17 09:12 08/14/17 08:32 - Medications Medications: Current Medications Acetaminophen (Tylenol 325mg Tab) 650 mg PO ONCE PRN PRN Reason: Fever >100.4 F Amlodipine Besylate (Norvasc) 10 mg PO DAILY [facility] Last Admin: 08/14/17 09:16 Dose: 10 mg Calcitriol (Rocaltrol) 0.25 mcg PO TTS [facility] Last Admin: 08/14/17 09:14 Dose: 0.25 mcg Diphenhydramine HCl (Benadryl) 50 mg IVP Q6H PRN PRN Reason: Insomnia Last Admin: 08/14/17 13:36 Dose: 50 mg Epoetin Anival (Procrit) 20,000 unit SC TTS [facility] Last Admin: 08/14/17 09:17 Dose: Not Given Vancomycin/Sodium Chloride (Vancomycin 1 Gm/Ns 200 Ml) 1 gm in 200 mls @ 133.333 mls/hr IVPB Q48H [facility] PRN Reason: Protocol Last Admin: 08/14/17 13:36 Dose: 133.333 mls/hr Cefepime HCl 1 gm/ Dextrose 50 mls @ 100 mls/hr IVPB DAILY [facility] PRN Reason: Protocol Last Admin: 08/14/17 09:15 Dose: 100 mls/hr Sodium Chloride (Sodium Chloride 0.45%) 1,000 mls @ 80 mls/hr IV .[id number] [facility] Last Admin: 08/14/17 09:11 Dose: 80 mls/hr Insulin Aspart (Novolog) 16 unit SC BID [facility] Last Admin: 08/14/17 09:17 Dose: Not Given Insulin Glargine (Lantus) 16 unit SC HS [facility] Last Admin: 08/13/17 21:59 Dose: 16 unit Insulin Human Regular (Novolin R) 0 unit SC ACHS [facility] PRN Reason: Protocol Last Admin: 08/14/17 12:14 Dose: Not Given Labetalol HCl (Normodyne) 300 mg PO Q8H [facility] Last Admin: 08/14/17 08:31 Dose: Not Given Morphine Sulfate (Morphine) 2 mg IV Q4 PRN PRN Reason: Pain, severe (8-10) Last Admin: 08/13/17 14:48 Dose: 2 mg Ondansetron HCl (Zofran Inj) 4 mg IVP Q6H PRN PRN Reason: Nausea/Vomiting Last Admin: 08/11/17 11:59 Dose: 4 mg Oxycodone HCl (Oxycodone Immediate Release Tab) 30 mg PO Q6H PRN PRN Reason: Pain, moderate (4-7) Last Admin: 08/14/17 12:25 Dose: 30 mg Saccharomyces Boulardii (Florastor) 250 mg PO BID [facility] Last Admin: 08/14/17 09:14 Dose: 250 mg Sertraline HCl (Zoloft) 50 mg PO DAILY [facility] Last Admin: 08/14/17 09:14 Dose: 50 mg Sodium Bicarbonate (Sodium Bicarbonate Tab) 650 mg PO Q8 [facility] Last Admin: 08/14/17 13:36 Dose: 650 mg Sodium Hypochlorite (Dakins Solution 0.125%) 0 appl TOP DAILY [facility] Last Admin: 08/14/17 09:14 Dose: Not Given Vitamin B Complex/Vit C/Folic Acid (Nephro-Rosario) 1 tab PO 0800 [facility] Last Admin: 08/14/17 09:14 Dose: 1 tab - Labs Labs: 08/14/17 07:40 08/14/17 07:40 PT 14.4 SECONDS (9.7-12.2) H 08/05/17 14:01 INR 1.3 08/05/17 14:01 APTT 34 SECONDS (21-34) 08/05/17 14:01
[2017-08-14] MEDS: (Lantus) Insulin Glargine, Recombinant SC SCH (21:49)
--- NOTE | 2017-08-14 22:17 | CP.PCM.PN ---
Subjective - Date & Time of Evaluation Date of Evaluation: 08/14/17 Time of Evaluation: 20:00 - Subjective Subjective: No complaints. Objective - Vital Signs/Intake and Output Vital Signs (last 24 hours): Temp Pulse Resp BP Pulse Ox 98.4 F 89 20 149/77 98 08/14/17 15:00 08/14/17 18:35 08/14/17 15:00 08/14/17 18:35 08/14/17 15:00 Intake and Output: 08/14/17 08/15/17 18:59 06:59 Intake Total 1160 Output Total 450 Balance 1160 -450 - Medications Medications: Current Medications Acetaminophen (Tylenol 325mg Tab) 650 mg PO ONCE PRN PRN Reason: Fever >100.4 F Amlodipine Besylate (Norvasc) 10 mg PO DAILY [facility] Last Admin: 08/14/17 09:16 Dose: 10 mg Calcitriol (Rocaltrol) 0.25 mcg PO TTS [facility] Last Admin: 08/14/17 09:14 Dose: 0.25 mcg Diphenhydramine HCl (Benadryl) 50 mg IVP Q6H PRN PRN Reason: Insomnia Last Admin: 08/14/17 20:18 Dose: 50 mg Epoetin Anival (Procrit) 20,000 unit SC TTS [facility] Last Admin: 08/14/17 09:17 Dose: Not Given Vancomycin/Sodium Chloride (Vancomycin 1 Gm/Ns 200 Ml) 1 gm in 200 mls @ 133.333 mls/hr IVPB Q48H [facility] PRN Reason: Protocol Last Admin: 08/14/17 13:36 Dose: 133.333 mls/hr Cefepime HCl 1 gm/ Dextrose 50 mls @ 100 mls/hr IVPB DAILY [facility] PRN Reason: Protocol Last Admin: 08/14/17 09:15 Dose: 100 mls/hr Sodium Chloride (Sodium Chloride 0.45%) 1,000 mls @ 80 mls/hr IV .[id number] [facility] Last Admin: 08/14/17 21:26 Dose: Not Given Insulin Aspart (Novolog) 16 unit SC BID [facility] Last Admin: 08/14/17 18:34 Dose: 16 unit Insulin Glargine (Lantus) 16 unit SC HS [facility] Last Admin: 08/14/17 21:49 Dose: Not Given Insulin Human Regular (Novolin R) 0 unit SC ACHS [facility] PRN Reason: Protocol Last Admin: 08/14/17 21:49 Dose: Not Given Labetalol HCl (Normodyne) 300 mg PO Q8H [facility] Last Admin: 08/14/17 18:34 Dose: 300 mg Morphine Sulfate (Morphine) 2 mg IV Q4 PRN PRN Reason: Pain, severe (8-10) Last Admin: 08/13/17 14:48 Dose: 2 mg Ondansetron HCl (Zofran Inj) 4 mg IVP Q6H PRN PRN Reason: Nausea/Vomiting Last Admin: 08/11/17 11:59 Dose: 4 mg Oxycodone HCl (Oxycodone Immediate Release Tab) 30 mg PO Q6H PRN PRN Reason: Pain, moderate (4-7) Last Admin: 08/14/17 18:33 Dose: 30 mg Saccharomyces Boulardii (Florastor) 250 mg PO BID [facility] Last Admin: 08/14/17 18:34 Dose: 250 mg Sertraline HCl (Zoloft) 50 mg PO DAILY [facility] Last Admin: 08/14/17 09:14 Dose: 50 mg Sodium Bicarbonate (Sodium Bicarbonate Tab) 650 mg PO Q8 [facility] Last Admin: 08/14/17 21:58 Dose: 650 mg Sodium Hypochlorite (Dakins Solution 0.125%) 0 appl TOP DAILY [facility] Last Admin: 08/14/17 09:14 Dose: Not Given Vitamin B Complex/Vit C/Folic Acid (Nephro-Rosario) 1 tab PO 0800 [facility] Last Admin: 08/14/17 09:14 Dose: 1 tab - Labs Labs: 08/14/17 07:40 08/14/17 07:40 PT 14.4 SECONDS (9.7-12.2) H 08/05/17 14:01 INR 1.3 08/05/17 14:01 APTT 34 SECONDS (21-34) 08/05/17 14:01 - Head Exam Head Exam: ATRAUMATIC - Eye Exam Eye Exam: Normal appearance - ENT Exam ENT Exam: Mucous Membranes Dry - Respiratory Exam Respiratory Exam: NORMAL BREATHING PATTERN - Cardiovascular Exam Cardiovascular Exam: +S1, +S2 - GI/Abdominal Exam GI & Abdominal Exam: Normal Bowel Sounds Assessment and Plan (1) Anemia Assessment & Plan: multifactorial anemia of chronic disease from osteomyelitis anemia of CKD anemia of HIV on KIT to decrease transfusion requirements. transfusion support PRN Status: Acute (2) Monoclonal gammopathy Assessment & Plan: + monoclonal protein detected in urine abnormal free light chain ratio skeletal survey to evaluate for lytic lesions possible bone marrow +/- kidney biopsy; discussed with the patient who prefers to not have a biopsy during this admission but will reconsider at a later date Status: Acute
--- NOTE | 2017-08-15 00:38 | PN ---
DATE: 08/14/2017 LOCATION: The patient is located in [address], bed A. REQUESTED BY: Art Nathan MD REASON FOR FOLLOWUP: Hyperkalemia, renal failure, and for further evaluation. SUBJECTIVE: Mrs. Johnson is a 36-year-old young transgender female with history of hypertension, diabetes, chronic kidney disease, proteinuria, anemia, acidosis, hyperkalemia, hyperparathyroidism, Charcot's foot, HIV, noncompliance with diet and medication, who was admitted with left leg swelling and drainage, and subsequently the patient underwent left foot transmetatarsal amputation. The patient is not in distress. Denies any chest pain or palpitation. Complains of problem with bowel movement, with Kayexalate. No abdominal pain. No shortness of breath. Claims she is ambulating. PHYSICAL EXAMINATION: VITAL SIGNS: This morning as follows: Blood pressure 120/56, pulse 79, respirations 20, temperature 98.1. Height 6 feet 3 inches, and weight is 280 pounds. GENERAL: Ms. Johnson is a 36-year-old transgender female, well-built, well-nourished, looks male on external appearance. HEENT: Pupils normal and reactive to light and accommodation. Conjunctivae pink. Sclerae anicteric. Tongue is moist. NECK: Trachea is midline. LUNGS: Symmetric on both sides. Bilateral breath sounds present. Clear to auscultation. CVS: [place] at the fifth intercostal space, midclavicular line. S1, S2 audible. No murmur or gallop. ABDOMEN: Normal in appearance, soft, tympanic. No guarding. No rigidity. No hepatosplenomegaly. AIRPORT GUIDE: The patient is alert, awake, and oriented x3. Nonfocal neuro examination. Cranial nerves II through XII grossly intact. Sensory and motor system are within normal limits. EXTREMITIES: Right leg, the patient has no cyanosis, no clubbing, no edema. Left leg, the patient has swelling of the leg below the knee joint and the patient also has a dressing to the left foot, status post transmetatarsal amputation. MEDICATIONS: Reviewed. Include Benadryl, cefepime, Florastor, Lantus, morphine, Nephro-Rosario, labetalol, amlodipine, NovoLog, oxycodone, Procrit, calcitriol, sodium bicarbonate, Tylenol, vancomycin, Zofran, and Zoloft. LABORATORY DATA: This morning as follows: WBC 11.5, hemoglobin 9.3, hematocrit is 27.8, platelets 489. Sodium 137, potassium 5.2, chloride 103, CO2 22, BUN 46, creatinine 3.8, glucose 89, calcium 9.2. Total bili 0.6, AST 79, ALT 20, alkaline phosphatase 272, total protein 9.3, albumin is 3.2. ASSESSMENT AND PLAN: In summary, Ms. Johnson is a 36-year-old young transgender female with hypertension, diabetes, massive proteinuria, chronic kidney disease stage 4, Charcot's foot, human immunodeficiency virus, anemia, secondary hyperparathyroidism, acidosis metabolic, hyperkalemia, status post left foot transmetatarsal amputation. 1. Acute renal failure on chronic kidney disease, most likely secondary to chronic infection and cannot rule out acute tubular necrosis versus progression of chronic kidney disease, rule out diabetic nephropathy versus chronic glomerulonephritis such as focal segmental glomerulosclerosis. 2. Anemia secondary to renal failure and infection, iron deficiency, status post intravenous iron treatment. Continue Procrit. Continue Nephro-Rosario. 3. Metabolic acidosis. Continue sodium bicarb three times a day 4. Hyperkalemia. Continue Kayexalate 30 g p.o. x1 dose and the patient may need three times a week. The patient is very noncompliant with the diet. 5. Secondary hyperparathyroidism. Continue calcitriol three times a week. Continue IV antibiotics as per Infectious Disease recommendations, cefepime and vancomycin. Overall prognosis is guarded. We will follow with you. Thank you for allowing me to participate in your patient's care. Weston Brambila MD
[2017-08-15] MEDS: DiphenhydrAMINE 50 mg/ml Inj IVP PRN ×4 (01:23→21:22)
[2017-08-15] MEDS: oxyCODONE 30 mg Immediate Release Tab PO PRN ×4 (01:23→20:16)
[2017-08-15] MEDS: (Novolin R) Insulin Human Regular 100 units/ml vial SC SCH ×4 (07:30→21:26)
[2017-08-15] MEDS: Multivitamin Vitamin B Complex (Nephro-Vite) Tab PO SCH (07:58)
[2017-08-15] MEDS: Labetalol Hydrochloride 300 mg Tab PO SCH ×3 (08:10→17:56)
[2017-08-15] MEDS: Saccharomyces Boulardi 250 mg Cap PO SCH ×2 (09:49→17:56)
[2017-08-15] MEDS: (Novolog) Insulin Aspart, Recombinant 100 u/ml 10 ml vial SC SCH ×2 (09:57→17:56)
[2017-08-15] MEDS: Sodium Chloride 0.45% 1,000 ML IV SCH ×2 (10:04→22:52)
--- NOTE | 2017-08-15 11:14 | CP.PCM.PN ---
Subjective - Date & Time of Evaluation Date of Evaluation: 08/15/17 Time of Evaluation: 11:14 - Subjective Subjective: Podiatry Progress note for Dr. Coy 36 year old female seen at bedside today 9 days s/p L foot Chopart's amputation (DOS 08/06/17). Patient resting in bed comfortably, NAD. No acute events overnight. Reports mild pain at amputation site however well-controlled. States she has been ambulating minimally and believes her LLE is more swollen due to increased weightbearing. Dressing to left foot remains clean/dry/intact. Denies N/V/F/D/C/SOB/ROBBINS/dizziness. Offers no other complaints. Objective - Vital Signs/Intake and Output Vital Signs (last 24 hours): Temp Pulse Resp BP Pulse Ox 98.8 F 86 20 123/82 96 08/15/17 07:55 08/15/17 07:55 08/15/17 07:55 08/15/17 07:55 08/15/17 07:55 Intake and Output: 08/15/17 08/15/17 06:59 18:59 Output Total 450 Balance -450 - Medications Medications: Current Medications Acetaminophen (Tylenol 325mg Tab) 650 mg PO ONCE PRN PRN Reason: Fever >100.4 F Amlodipine Besylate (Norvasc) 10 mg PO DAILY [facility] Last Admin: 08/15/17 09:49 Dose: 10 mg Calcitriol (Rocaltrol) 0.25 mcg PO TTS [facility] Last Admin: 08/14/17 09:14 Dose: 0.25 mcg Diphenhydramine HCl (Benadryl) 50 mg IVP Q6H PRN PRN Reason: Insomnia Last Admin: 08/15/17 07:58 Dose: 50 mg Epoetin Anival (Procrit) 20,000 unit SC TTS [facility] Last Admin: 08/14/17 09:17 Dose: Not Given Vancomycin/Sodium Chloride (Vancomycin 1 Gm/Ns 200 Ml) 1 gm in 200 mls @ 133.333 mls/hr IVPB Q48H [facility] PRN Reason: Protocol Last Admin: 08/14/17 13:36 Dose: 133.333 mls/hr Cefepime HCl 1 gm/ Dextrose 50 mls @ 100 mls/hr IVPB DAILY [facility] PRN Reason: Protocol Last Admin: 05/13/18 09:48 Dose: 100 mls/hr Sodium Chloride (Sodium Chloride 0.45%) 1,000 mls @ 80 mls/hr IV .[id number] [facility] Last Admin: 08/14/17 21:26 Dose: Not Given Insulin Aspart (Novolog) 16 unit SC BID [facility] Last Admin: 08/15/17 09:57 Dose: Not Given Insulin Glargine (Lantus) 16 unit SC HS [facility] Last Admin: 08/14/17 21:49 Dose: Not Given Insulin Human Regular (Novolin R) 0 unit SC ACHS [facility] PRN Reason: Protocol Last Admin: 08/15/17 07:30 Dose: Not Given Labetalol HCl (Normodyne) 300 mg PO Q8H [facility] Last Admin: 08/15/17 09:55 Dose: 300 mg Morphine Sulfate (Morphine) 2 mg IV Q4 PRN PRN Reason: Pain, severe (8-10) Last Admin: 08/13/17 14:48 Dose: 2 mg Ondansetron HCl (Zofran Inj) 4 mg IVP Q6H PRN PRN Reason: Nausea/Vomiting Last Admin: 08/11/17 11:59 Dose: 4 mg Oxycodone HCl (Oxycodone Immediate Release Tab) 30 mg PO Q6H PRN PRN Reason: Pain, moderate (4-7) Last Admin: 08/15/17 07:58 Dose: 30 mg Saccharomyces Boulardii (Florastor) 250 mg PO BID [facility] Last Admin: 08/15/17 09:49 Dose: 250 mg Sertraline HCl (Zoloft) 50 mg PO DAILY [facility] Last Admin: 08/15/17 09:49 Dose: 50 mg Sodium Bicarbonate (Sodium Bicarbonate Tab) 650 mg PO Q8 [facility] Last Admin: 08/15/17 06:45 Dose: 650 mg Sodium Hypochlorite (Dakins Solution 0.125%) 0 appl TOP DAILY [facility] Last Admin: 08/15/17 09:56 Dose: Not Given Vitamin B Complex/Vit C/Folic Acid (Nephro-Rosario) 1 tab PO 0800 [facility] Last Admin: 08/15/17 07:58 Dose: 1 tab - Labs Labs: 08/14/17 07:40 08/14/17 07:40 PT 14.4 SECONDS (9.7-12.2) H 08/05/17 14:01 INR 1.3 08/05/17 14:01 APTT 34 SECONDS (21-34) 08/05/17 14:01 - Constitutional Appears: Well, Non-toxic, No Acute Distress - Extremities Exam Additional comments: Left Lower Extremity exam: dressing appears c/d/i with no strikethrough evident VASC- DP pulse faintly palpable, skin temp runs warm to warm, nonpitting edema noted to left leg extending from knee joint distally into stump DERM- surgical site remains intact with surgical site well coapted along medial aspect with no evidence of wound dehiscence, plantarlateral surgical site appears macerated with gross lichenification of pedal skin; the lateral distal stump site has a circular opening which measures approx 1 cm x 1 cm which appears to be granulating inwards, mild amount of serosanginous drainage noted from wound, moderate malodor present NEURO- gross and protective pedal sensation are diminished ORTHO- minimal tenderness noted to palpation of the surgical site laterally and plantarly - Neurological Exam Neurological Exam: Alert, Awake, Oriented x3 - Psychiatric Exam Psychiatric exam: Normal Affect, Normal Mood Assessment and Plan - Assessment and Plan (Free Text) Assessment: 36 year old female patient seen 9 days s/p Chopart's amputation (DOS 08/06/17) Plan: Patient examined and evaluated at bedside Discussed with attending, Dr. Coy Labs and vitals reviewed - afebrile, WBC 11.5 Continue local wound care - saline cleanse, betadine soaked gauze, ABD, kerlix, coban Intra-op wound cultures: Coagulase Neg Staph c/w IV abx as per ID Dr. Del Valle Continue pain mgt per primary team Patient may be PWB to left heel in surgical shoe with the assistance of a walker Podiatry will continue to follow
--- NOTE | 2017-08-15 13:05 | CP.PCM.PN ---
Subjective - Date & Time of Evaluation Date of Evaluation: 08/15/17 Time of Evaluation: 10:00 - Subjective Subjective: CONDITION SAME. Objective - Vital Signs/Intake and Output Vital Signs (last 24 hours): Temp Pulse Resp BP Pulse Ox 98.8 F 85 20 119/74 96 08/15/17 07:55 08/15/17 11:35 08/15/17 07:55 08/15/17 11:35 08/15/17 07:55 Intake and Output: 08/15/17 08/15/17 06:59 18:59 Output Total 450 Balance -450 - Medications Medications: Current Medications Acetaminophen (Tylenol 325mg Tab) 650 mg PO ONCE PRN PRN Reason: Fever >100.4 F Amlodipine Besylate (Norvasc) 10 mg PO DAILY [facility] Last Admin: 08/15/17 09:49 Dose: 10 mg Calcitriol (Rocaltrol) 0.25 mcg PO TTS [facility] Last Admin: 08/14/17 09:14 Dose: 0.25 mcg Diphenhydramine HCl (Benadryl) 50 mg IVP Q6H PRN PRN Reason: Insomnia Last Admin: 08/15/17 07:58 Dose: 50 mg Epoetin Anival (Procrit) 20,000 unit SC TTS [facility] Last Admin: 08/14/17 09:17 Dose: Not Given Vancomycin/Sodium Chloride (Vancomycin 1 Gm/Ns 200 Ml) 1 gm in 200 mls @ 133.333 mls/hr IVPB Q48H [facility] PRN Reason: Protocol Last Admin: 08/14/17 13:36 Dose: 133.333 mls/hr Cefepime HCl 1 gm/ Dextrose 50 mls @ 100 mls/hr IVPB DAILY [facility] PRN Reason: Protocol Last Admin: 08/15/17 09:48 Dose: 100 mls/hr Sodium Chloride (Sodium Chloride 0.45%) 1,000 mls @ 80 mls/hr IV .[id number] [facility] Last Admin: 08/15/17 10:04 Dose: Not Given Insulin Aspart (Novolog) 16 unit SC BID [facility] Last Admin: 08/15/17 09:57 Dose: Not Given Insulin Glargine (Lantus) 16 unit SC HS [facility] Last Admin: 08/14/17 21:49 Dose: Not Given Insulin Human Regular (Novolin R) 0 unit SC ACHS [facility] PRN Reason: Protocol Last Admin: 08/15/17 11:43 Dose: Not Given Labetalol HCl (Normodyne) 300 mg PO Q8H [facility] Last Admin: 08/15/17 09:55 Dose: 300 mg Morphine Sulfate (Morphine) 2 mg IV Q4 PRN PRN Reason: Pain, severe (8-10) Last Admin: 08/13/17 14:48 Dose: 2 mg Ondansetron HCl (Zofran Inj) 4 mg IVP Q6H PRN PRN Reason: Nausea/Vomiting Last Admin: 08/11/17 11:59 Dose: 4 mg Oxycodone HCl (Oxycodone Immediate Release Tab) 30 mg PO Q6H PRN PRN Reason: Pain, moderate (4-7) Last Admin: 08/15/17 07:58 Dose: 30 mg Saccharomyces Boulardii (Florastor) 250 mg PO BID [facility] Last Admin: 08/15/17 09:49 Dose: 250 mg Sertraline HCl (Zoloft) 50 mg PO DAILY [facility] Last Admin: 08/15/17 09:49 Dose: 50 mg Sodium Bicarbonate (Sodium Bicarbonate Tab) 650 mg PO Q8 [facility] Last Admin: 08/15/17 06:45 Dose: 650 mg Sodium Hypochlorite (Dakins Solution 0.125%) 0 appl TOP DAILY [facility] Last Admin: 08/15/17 09:56 Dose: Not Given Vitamin B Complex/Vit C/Folic Acid (Nephro-Rosario) 1 tab PO 0800 [facility] Last Admin: 08/15/17 07:58 Dose: 1 tab - Labs Labs: 08/14/17 07:40 08/14/17 07:40 PT 14.4 SECONDS (9.7-12.2) H 08/05/17 14:01 INR 1.3 08/05/17 14:01 APTT 34 SECONDS (21-34) 08/05/17 14:01 - Constitutional Appears: No Acute Distress, Chronically Ill - ENT Exam ENT Exam: Mucous Membranes Moist, Normal Exam - Neck Exam Neck Exam: Full ROM, Normal Inspection. absent: Lymphadenopathy - Respiratory Exam Respiratory Exam: Clear to Ausculation Bilateral, NORMAL BREATHING PATTERN - Cardiovascular Exam Cardiovascular Exam: REGULAR RHYTHM, +S1, +S2. absent: Murmur - GI/Abdominal Exam GI & Abdominal Exam: Soft, Normal Bowel Sounds. absent: Tenderness - Extremities Exam Extremities Exam: Full ROM, Normal Capillary Refill, Normal Inspection. absent : Joint Swelling, Pedal Edema - Back Exam Back Exam: NORMAL INSPECTION - Neurological Exam Neurological Exam: Alert, Awake, CN II-XII Intact, Normal Gait, Oriented x3 - Psychiatric Exam Psychiatric exam: Normal Affect, Normal Mood Assessment and Plan - Assessment and Plan (Free Text) Assessment: OM LT FOOT. CRF. DM. Plan: CT IV ABTS.
[2017-08-15] MEDS: (Lantus) Insulin Glargine, Recombinant SC SCH (21:26)
[2017-08-16] MEDS: Labetalol Hydrochloride 300 mg Tab PO SCH ×3 (00:07→17:16)
[2017-08-16] MEDS: oxyCODONE 30 mg Immediate Release Tab PO PRN ×4 (02:24→20:09)
[2017-08-16 07:06] LABS: HEMOGLOBIN 8.7 g/dL (11.0-16.0); MEAN CELL VOLUME 89.2 fL (81.0-99.0); MEAN CORPUSCULAR HEMOGLOBIN 28.9 pg (27.0-31.0); MEAN CORPUSCULAR HGB CONC 32.4 g/dL (33.0-37.0); MEAN PLATELET VOLUME 6.5 fL (7.2-11.7); RBC 3.01 Mil/uL (3.80-5.20); RED CELL DISTRIBUTION WIDTH 17.7 % (11.5-14.5); WHITE BLOOD COUNT 11.4 K/uL (4.8-10.8)
[2017-08-16] MEDS: (Novolin R) Insulin Human Regular 100 units/ml vial SC SCH ×4 (07:29→21:48)
[2017-08-16] MEDS: Multivitamin Vitamin B Complex (Nephro-Vite) Tab PO SCH (08:16)
[2017-08-16 08:17] LABS: CALCIUM 9.2 mg/dl (8.6-10.4)
[2017-08-16] MEDS: DiphenhydrAMINE 50 mg/ml Inj IVP PRN ×3 (08:18→20:09)
--- NOTE | 2017-08-16 09:31 | PN ---
DATE: 08/13/2017 FOLLOWUP RENAL CONSULTATION LOCATION: The patient is located in room 570, bed A. REQUESTED BY: Dr. Art Nathan. REASON FOR FOLLOWUP: Acute renal failure, chronic kidney disease, nephrotic range proteinuria. SUBJECTIVE: Mrs. Johnson is a 36 years old young transgender female with a past medical history significant for longstanding hypertension, diabetes, nephrotic range proteinuria, Charcot's foot and osteomyelitis of the left foot, HIV positive, anemia, metabolic acidosis, secondary hyperparathyroidism, status post left foot transmetatarsal amputation about a week ago. The patient is not in acute distress. Denies any headache, dizziness. Denies any chest pain or palpitation. Denies any fever or cough. No abdominal pain. No nausea, vomiting, diarrhea. OBJECTIVE: VITAL SIGNS: This morning as follows; blood pressure 185/94, pulse is 78, respirations about 20, temperature 98.5, saturation 96%. Height 6 feet 3 inches and weight is 280 pounds. GENERAL: Mrs. Johnson is a 36 years old young transgender -[place] female with external appearance as male, not in distress, resting comfortably. HEENT: Pupils normal, reactive to light and accommodation. Conjunctivae pink. Sclerae anicteric. Tongue is moist. Trachea is midline. LUNGS: Symmetric on both sides. Bilateral breath sounds present. Clear to auscultation. CVS: [place] at the fifth intercostal space of intermediate midclavicular area. S1, S2 audible. No murmur or gallop. ABDOMEN: Normal in appearance, soft, tympanic. No guarding. No rigidity. No hepatosplenomegaly. TEST [employer]: The patient is alert, awake, oriented x3. Nonfocal neuro examination. EXTREMITIES: No cyanosis, no clubbing, no edema on the right leg. The patient has a dressing to the left foot and also left leg is slightly swollen compared to the right. CURRENT MEDICATIONS: Include as follows; Benadryl 50 mg IV push at bedtime p.r.n., cefepime 1 gm daily, Florastor 250 mg p.o. b.i.d., Lantus 16 units subcu at bedtime, morphine sulfate 2 mg IV every 4 hours p.r.n., Nephro-Rosario 1 tablet p.o. q.a.m., labetalol 300 mg p.o. every 6 hours, amlodipine 10 mg daily, Novolin R for sliding scale, NovoLog 16 units subcu b.i.d., oxycodone 30 mg p.o. every 6 hours p.r.n., Procrit 20,000 units three times a week, sodium bicarb 650 mg p.o. every 8 hours, Tylenol and vancomycin 1 gm every 48 hours, Zofran 4 mg IV every 6 hours, and Zoloft 50 mg p.o. daily. LABORATORY DATA: Include as follows, as of 08/13/2017; WBC 11.7, hemoglobin 9.1, hematocrit is 27.6, platelets 458 and as of 08/13/2017; sodium 141, potassium is 5, chloride 105, CO2 of 25, BUN 40, creatinine 3.5, glucose 180, calcium 9.2., total bili 0.5, AST 62, ALT 69, alkaline phosphatase 271, total protein 8.8, albumin is 3. Serum immunofixation as of 08/03/2017, a faint band with lambda is present, history of dense polyclonal background and urine immunofixation, a faint band in IgG and kappa is present, again history of dense polyclonal background. Couple lambda light chain analysis, no abnormal bands are present on immunofixation, no monoclonal proteins are detected, and free kappa lambda ratio is 2.22. IMPRESSION AND PLAN: In summary, Mrs. Johnson is a 36 years old young transgender female with a history of hypertension, diabetes, proteinuria, renal failure, human immunodeficiency virus positive, Charcot's left foot, osteomyelitis status post transmetatarsal amputation about a week ago with low H and H. 1. Acute renal failure on chronic kidney disease stage IV, rule out diabetic nephropathy, rule out chronic glomerulonephritis, rule out human immunodeficiency virus-associated nephropathy. 2. Anemia secondary to multifactorial secondary to iron-deficiency, chronic kidney disease and infections. 3. Metabolic acidosis. 4. Hyperkalemia, status post Kayexalate last night and repeat potassium this morning is within normal limits. 5. Secondary hyperparathyroidism. Continue calcitriol 0.25 mcg three times a week. 6. Status post transmetatarsal amputation of the left foot. Continue antibiotics as per Dr. Del Valle, cefepime and vancomycin. We will follow with you. Thank you for allowing me to participate in your patient's care. Renal function is slightly better and improving slowly. Weston Brambila MD
[2017-08-16] MEDS: Saccharomyces Boulardi 250 mg Cap PO SCH ×2 (09:40→17:16)
[2017-08-16] MEDS: Sodium Chloride 0.45% 1,000 ML IV SCH (09:53)
[2017-08-16] MEDS: (Novolog) Insulin Aspart, Recombinant 100 u/ml 10 ml vial SC SCH ×2 (10:23→17:19)
--- NOTE | 2017-08-16 11:48 | CP.PCM.PN ---
Subjective - Date & Time of Evaluation Date of Evaluation: 08/16/17 Time of Evaluation: 11:46 - Subjective Subjective: Podiatry Progress note for Dr. Coy 36 year old female seen at bedside today 10 days s/p L foot Chopart's amputation (DOS 08/06/17). Patient resting in bed comfortably, NAD. No acute events overnight. Reports mild pain at amputation site however well-controlled. States she has been ambulating minimally and believes her LLE is more swollen due to increased weightbearing. Dressing to left foot remains clean/dry/intact. Denies N/V/F/D/C/SOB today. Objective - Vital Signs/Intake and Output Vital Signs (last 24 hours): Temp Pulse Resp BP Pulse Ox 98.8 F 90 20 114/70 96 08/16/17 07:00 08/16/17 07:00 08/16/17 07:00 08/16/17 07:00 08/16/17 07:00 - Medications Medications: Current Medications Acetaminophen (Tylenol 325mg Tab) 650 mg PO ONCE PRN PRN Reason: Fever >100.4 F Amlodipine Besylate (Norvasc) 10 mg PO DAILY [facility] Last Admin: 08/16/17 09:41 Dose: Not Given Calcitriol (Rocaltrol) 0.25 mcg PO TTS [facility] Last Admin: 08/14/17 09:14 Dose: 0.25 mcg Diphenhydramine HCl (Benadryl) 50 mg IVP Q6H PRN PRN Reason: Insomnia Last Admin: 08/16/17 08:18 Dose: 50 mg Epoetin Anival (Procrit) 20,000 unit SC TTS [facility] Last Admin: 08/14/17 09:17 Dose: Not Given Vancomycin/Sodium Chloride (Vancomycin 1 Gm/Ns 200 Ml) 1 gm in 200 mls @ 133.333 mls/hr IVPB Q48H [facility] PRN Reason: Protocol Last Admin: 08/14/17 13:36 Dose: 133.333 mls/hr Cefepime HCl 1 gm/ Dextrose 50 mls @ 100 mls/hr IVPB DAILY [facility] PRN Reason: Protocol Last Admin: 08/15/17 09:48 Dose: 100 mls/hr Sodium Chloride (Sodium Chloride 0.45%) 1,000 mls @ 80 mls/hr IV .[id number] [facility] Last Admin: 05/14/18 09:53 Dose: 80 mls/hr Insulin Aspart (Novolog) 16 unit SC BID [facility] Last Admin: 08/16/17 10:23 Dose: Not Given Insulin Glargine (Lantus) 16 unit SC HS [facility] Last Admin: 08/15/17 21:26 Dose: Not Given Insulin Human Regular (Novolin R) 0 unit SC ACHS [facility] PRN Reason: Protocol Last Admin: 08/16/17 07:29 Dose: Not Given Labetalol HCl (Normodyne) 300 mg PO Q8H [facility] Last Admin: 08/16/17 07:59 Dose: Not Given Morphine Sulfate (Morphine) 2 mg IV Q4 PRN PRN Reason: Pain, severe (8-10) Last Admin: 08/13/17 14:48 Dose: 2 mg Oxycodone HCl (Oxycodone Immediate Release Tab) 30 mg PO Q6H PRN PRN Reason: Pain, moderate (4-7) Last Admin: 08/16/17 08:16 Dose: 30 mg Saccharomyces Boulardii (Florastor) 250 mg PO BID [facility] Last Admin: 08/16/17 09:40 Dose: 250 mg Sertraline HCl (Zoloft) 50 mg PO DAILY [facility] Last Admin: 08/16/17 09:40 Dose: 50 mg Vitamin B Complex/Vit C/Folic Acid (Nephro-Rosario) 1 tab PO 0800 [facility] Last Admin: 08/16/17 08:16 Dose: 1 tab - Labs Labs: 08/16/17 06:59 08/16/17 06:59 PT 14.4 SECONDS (9.7-12.2) H 08/05/17 14:01 INR 1.3 08/05/17 14:01 APTT 34 SECONDS (21-34) 08/05/17 14:01 - Constitutional Appears: Well, Non-toxic, No Acute Distress - Head Exam Head Exam: ATRAUMATIC - Extremities Exam Additional comments: Left Lower Extremity exam: dressing appears c/d/i with no strikethrough evident VASC- DP pulse faintly palpable, skin temp runs warm to warm, nonpitting edema noted to left leg extending from knee joint distally into stump DERM- surgical site remains intact with surgical site well coapted along medial aspect with no evidence of wound dehiscence, plantarlateral surgical site appears macerated with gross lichenification of pedal skin; the lateral distal stump site has a circular opening which measures approx 1 cm x 1 cm which appears to be granulating inwards, mild amount of serosanginous drainage noted from wound, moderate malodor present NEURO- gross and protective pedal sensation are diminished ORTHO- minimal tenderness noted to palpation of the surgical site laterally and plantarly - Neurological Exam Neurological Exam: Alert, Awake, Oriented x3 - Psychiatric Exam Psychiatric exam: Normal Affect, Normal Mood - Skin Skin Exam: Normal Color, Warm Assessment and Plan - Assessment and Plan (Free Text) Assessment: 36 year old female patient seen 10 days s/p Chopart's amputation (DOS 08/06/17) Plan: Patient examined and evaluated at bedside Discussed with attending, Dr. Coy Labs and vitals reviewed - afebrile, WBC 11.4 Continue local wound care - saline cleanse, betadine soaked gauze, ABD, kerlix, coban Intra-op wound cultures: Coagulase Neg Staph c/w IV abx as per ID Dr. Del Valle Continue pain mgt per primary team Patient may be PWB to left heel in surgical shoe with the assistance of a walker Podiatry will continue to follow
[2017-08-16 11:53] LABS: CREATININE, RANDOM URINE 139.1 mg/dL
--- NOTE | 2017-08-16 12:27 | CP.PCM.PN ---
Subjective - Date & Time of Evaluation Date of Evaluation: 08/16/17 Time of Evaluation: 12:25 - Subjective Subjective: pt is seen and examined, follow up consult is dictated #[id number] 1. Justin on ckd-4 2. hyperkalemia 3. htn 4. dm 5. Anemia 6. sec. hpth 7. met. acidosis kayexalate 30 gm po x1 may need hd if renal function continue to deteriorates Objective - Vital Signs/Intake and Output Vital Signs (last 24 hours): Temp Pulse Resp BP Pulse Ox 98.8 F 90 20 114/70 96 08/16/17 07:00 08/16/17 07:00 08/16/17 07:00 08/16/17 07:00 08/16/17 07:00 - Medications Medications: Current Medications Acetaminophen (Tylenol 325mg Tab) 650 mg PO ONCE PRN PRN Reason: Fever >100.4 F Amlodipine Besylate (Norvasc) 10 mg PO DAILY [facility] Last Admin: 08/16/17 09:41 Dose: Not Given Calcitriol (Rocaltrol) 0.25 mcg PO TTS [facility] Last Admin: 08/14/17 09:14 Dose: 0.25 mcg Diphenhydramine HCl (Benadryl) 50 mg IVP Q6H PRN PRN Reason: Insomnia Last Admin: 08/16/17 08:18 Dose: 50 mg Epoetin Anival (Procrit) 20,000 unit SC TTS [facility] Last Admin: 08/14/17 09:17 Dose: Not Given Cefepime HCl 1 gm/ Dextrose 50 mls @ 100 mls/hr IVPB DAILY [facility] PRN Reason: Protocol Last Admin: 08/15/17 09:48 Dose: 100 mls/hr Sodium Chloride (Sodium Chloride 0.45%) 1,000 mls @ 80 mls/hr IV .[id number] [facility] Last Admin: 08/16/17 09:53 Dose: 80 mls/hr Insulin Aspart (Novolog) 16 unit SC BID [facility] Last Admin: 08/16/17 10:23 Dose: Not Given Insulin Glargine (Lantus) 16 unit SC HS [facility] Last Admin: 08/15/17 21:26 Dose: Not Given Insulin Human Regular (Novolin R) 0 unit SC ACHS [facility] PRN Reason: Protocol Last Admin: 08/16/17 07:29 Dose: Not Given Labetalol HCl (Normodyne) 300 mg PO Q8H [facility] Last Admin: 08/16/17 07:59 Dose: Not Given Morphine Sulfate (Morphine) 2 mg IV Q4 PRN PRN Reason: Pain, severe (8-10) Last Admin: 08/13/17 14:48 Dose: 2 mg Oxycodone HCl (Oxycodone Immediate Release Tab) 30 mg PO Q6H PRN PRN Reason: Pain, moderate (4-7) Last Admin: 08/16/17 08:16 Dose: 30 mg Saccharomyces Boulardii (Florastor) 250 mg PO BID [facility] Last Admin: 08/16/17 09:40 Dose: 250 mg Sertraline HCl (Zoloft) 50 mg PO DAILY [facility] Last Admin: 08/16/17 09:40 Dose: 50 mg Vitamin B Complex/Vit C/Folic Acid (Nephro-Rosario) 1 tab PO 0800 [facility] Last Admin: 08/16/17 08:16 Dose: 1 tab - Labs Labs: 08/16/17 06:59 08/16/17 06:59 PT 14.4 SECONDS (9.7-12.2) H 08/05/17 14:01 INR 1.3 08/05/17 14:01 APTT 34 SECONDS (21-34) 08/05/17 14:01
[2017-08-16] MEDS ORDERED: Sod Polystyrene Sulf 15 gm/60 ml Susp PO ONE (12:46)
--- NOTE | 2017-08-16 12:48 | CP.PCM.PN ---
Subjective - Date & Time of Evaluation Date of Evaluation: 08/16/17 Time of Evaluation: 12:46 - Subjective Subjective: CONDITION SAME. AFEBRILE. Objective - Vital Signs/Intake and Output Vital Signs (last 24 hours): Temp Pulse Resp BP Pulse Ox 98.8 F 90 20 114/70 96 08/16/17 07:00 08/16/17 07:00 08/16/17 07:00 08/16/17 07:00 08/16/17 07:00 - Medications Medications: Current Medications Acetaminophen (Tylenol 325mg Tab) 650 mg PO ONCE PRN PRN Reason: Fever >100.4 F Amlodipine Besylate (Norvasc) 10 mg PO DAILY [facility] Last Admin: 08/16/17 09:41 Dose: Not Given Calcitriol (Rocaltrol) 0.25 mcg PO TTS [facility] Last Admin: 08/14/17 09:14 Dose: 0.25 mcg Diphenhydramine HCl (Benadryl) 50 mg IVP Q6H PRN PRN Reason: Insomnia Last Admin: 08/16/17 08:18 Dose: 50 mg Epoetin Anival (Procrit) 20,000 unit SC TTS [facility] Last Admin: 08/14/17 09:17 Dose: Not Given Cefepime HCl 1 gm/ Dextrose 50 mls @ 100 mls/hr IVPB DAILY [facility] PRN Reason: Protocol Last Admin: 08/15/17 09:48 Dose: 100 mls/hr Sodium Chloride (Sodium Chloride 0.45%) 1,000 mls @ 80 mls/hr IV .[id number] [facility] Last Admin: 08/16/17 09:53 Dose: 80 mls/hr Daptomycin 500 mg/ Sodium (Chloride) 100 mls @ 100 mls/hr IV Q48H [facility] PRN Reason: Protocol Stop: 08/21/17 12:46 Insulin Aspart (Novolog) 16 unit SC BID [facility] Last Admin: 08/16/17 10:23 Dose: Not Given Insulin Glargine (Lantus) 16 unit SC HS [facility] Last Admin: 08/15/17 21:26 Dose: Not Given Insulin Human Regular (Novolin R) 0 unit SC ACHS [facility] PRN Reason: Protocol Last Admin: 08/16/17 07:29 Dose: Not Given Labetalol HCl (Normodyne) 300 mg PO Q8H [facility] Last Admin: 08/16/17 07:59 Dose: Not Given Morphine Sulfate (Morphine) 2 mg IV Q4 PRN PRN Reason: Pain, severe (8-10) Last Admin: 08/13/17 14:48 Dose: 2 mg Oxycodone HCl (Oxycodone Immediate Release Tab) 30 mg PO Q6H PRN PRN Reason: Pain, moderate (4-7) Last Admin: 08/16/17 08:16 Dose: 30 mg Saccharomyces Boulardii (Florastor) 250 mg PO BID [facility] Last Admin: 08/16/17 09:40 Dose: 250 mg Sertraline HCl (Zoloft) 50 mg PO DAILY [facility] Last Admin: 08/16/17 09:40 Dose: 50 mg Vitamin B Complex/Vit C/Folic Acid (Nephro-Rosario) 1 tab PO 0800 [facility] Last Admin: 08/16/17 08:16 Dose: 1 tab - Labs Labs: 08/16/17 06:59 08/16/17 06:59 PT 14.4 SECONDS (9.7-12.2) H 08/05/17 14:01 INR 1.3 08/05/17 14:01 APTT 34 SECONDS (21-34) 08/05/17 14:01 - Constitutional Appears: No Acute Distress, Chronically Ill - Eye Exam Eye Exam: EOMI, Normal appearance, PERRL Pupil Exam: NORMAL ACCOMODATION, PERRL - ENT Exam ENT Exam: Mucous Membranes Moist, Normal Exam - Neck Exam Neck Exam: Full ROM, Normal Inspection. absent: Lymphadenopathy - Respiratory Exam Respiratory Exam: Clear to Ausculation Bilateral, NORMAL BREATHING PATTERN - Cardiovascular Exam Cardiovascular Exam: REGULAR RHYTHM, +S1, +S2. absent: Murmur - GI/Abdominal Exam GI & Abdominal Exam: Soft, Normal Bowel Sounds. absent: Tenderness - Extremities Exam Extremities Exam: Full ROM, Normal Capillary Refill, Normal Inspection. absent : Joint Swelling, Pedal Edema - Back Exam Back Exam: NORMAL INSPECTION - Neurological Exam Neurological Exam: Alert, Awake, CN II-XII Intact, Normal Gait, Oriented x3 - Psychiatric Exam Psychiatric exam: Normal Affect, Normal Mood Assessment and Plan - Assessment and Plan (Free Text) Assessment: OM LT FOOT. CRF. DM. Plan: CT PRESENT TREATMENT. FOR ALBERT.
--- NOTE | 2017-08-16 13:28 | CP.PCM.PN ---
Subjective - Date & Time of Evaluation Date of Evaluation: 08/16/17 Time of Evaluation: 10:00 - Subjective Subjective: renal worse d/c'd vanco add cubicin restart HIV meds Objective - Vital Signs/Intake and Output Vital Signs (last 24 hours): Temp Pulse Resp BP Pulse Ox 98.8 F 90 20 114/70 96 08/16/17 07:00 08/16/17 07:00 08/16/17 07:00 08/16/17 07:00 08/16/17 07:00 - Medications Medications: Current Medications Abacavir Sulfate (Ziagen) 300 mg PO BID [facility] PRN Reason: Protocol Stop: 09/03/19 10:00 Acetaminophen (Tylenol 325mg Tab) 650 mg PO ONCE PRN PRN Reason: Fever >100.4 F Amlodipine Besylate (Norvasc) 10 mg PO DAILY [facility] Last Admin: 08/16/17 09:41 Dose: Not Given Calcitriol (Rocaltrol) 0.25 mcg PO TTS [facility] Last Admin: 08/14/17 09:14 Dose: 0.25 mcg Diphenhydramine HCl (Benadryl) 50 mg IVP Q6H PRN PRN Reason: Insomnia Last Admin: 08/16/17 08:18 Dose: 50 mg Dolutegravir Sodium (Tivicay) 50 mg PO ONCE NR PRN Reason: Protocol Stop: 09/03/19 23:59 Epoetin Anival (Procrit) 20,000 unit SC TTS [facility] Last Admin: 08/14/17 09:17 Dose: Not Given Cefepime HCl 1 gm/ Dextrose 50 mls @ 100 mls/hr IVPB DAILY [facility] PRN Reason: Protocol Last Admin: 08/15/17 09:48 Dose: 100 mls/hr Daptomycin 500 mg/ Sodium (Chloride) 100 mls @ 100 mls/hr IV Q48H [facility] PRN Reason: Protocol Stop: 08/21/17 12:46 Sodium Bicarbonate 75 meq/ (Sodium Chloride) 1,000 mls @ 70 mls/hr IV .[id number] [facility] Insulin Aspart (Novolog) 16 unit SC BID [facility] Last Admin: 08/16/17 10:23 Dose: Not Given Insulin Glargine (Lantus) 16 unit SC HS [facility] Last Admin: 08/15/17 21:26 Dose: Not Given Insulin Human Regular (Novolin R) 0 unit SC ACHS [facility] PRN Reason: Protocol Last Admin: 08/16/17 12:15 Dose: Not Given Labetalol HCl (Normodyne) 300 mg PO Q8H [facility] Last Admin: 08/16/17 07:59 Dose: Not Given Lamivudine (Epivir) 150 mg PO DAILY [facility] PRN Reason: Protocol Stop: 09/03/19 08:00 Morphine Sulfate (Morphine) 2 mg IV Q4 PRN PRN Reason: Pain, severe (8-10) Last Admin: 08/13/17 14:48 Dose: 2 mg Oxycodone HCl (Oxycodone Immediate Release Tab) 30 mg PO Q6H PRN PRN Reason: Pain, moderate (4-7) Last Admin: 08/16/17 08:16 Dose: 30 mg Saccharomyces Boulardii (Florastor) 250 mg PO BID [facility] Last Admin: 08/16/17 09:40 Dose: 250 mg Sertraline HCl (Zoloft) 50 mg PO DAILY [facility] Last Admin: 08/16/17 09:40 Dose: 50 mg Vitamin B Complex/Vit C/Folic Acid (Nephro-Rosario) 1 tab PO 0800 [facility] Last Admin: 08/16/17 08:16 Dose: 1 tab - Labs Labs: 08/16/17 06:59 08/16/17 06:59 PT 14.4 SECONDS (9.7-12.2) H 08/05/17 14:01 INR 1.3 08/05/17 14:01 APTT 34 SECONDS (21-34) 08/05/17 14:01 - Constitutional Appears: Non-toxic, Chronically Ill - Head Exam Head Exam: NORMOCEPHALIC - Eye Exam Eye Exam: PERRL - ENT Exam ENT Exam: Mucous Membranes Dry - Neck Exam Neck Exam: absent: Lymphadenopathy - Respiratory Exam Respiratory Exam: Decreased Breath Sounds - Cardiovascular Exam Cardiovascular Exam: REGULAR RHYTHM Assessment and Plan (1) Anemia Status: Acute (2) Chronic ulcer of left leg Status: Chronic (3) HIV disease Status: Chronic (4) GAEL (acute kidney injury) Status: Acute (5) Abscess and cellulitis Status: Acute
[2017-08-16] MEDS: Sodium Bicarbonate 8.4% 75 MEQ in Sodium Chloride 0.45% 925 ML IV SCH (14:08)
[2017-08-16] MEDS: DAPTOmycin 500 MG in Sodium Chloride 0.9% 100 ML IV SCH (14:08)
[2017-08-16] MEDS: (Lantus) Insulin Glargine, Recombinant SC SCH (21:48)
[2017-08-16] MEDS: Morphine 4 MG/ML VIAL IV PRN (22:35)
[2017-08-17] MEDS: Labetalol Hydrochloride 300 mg Tab PO SCH ×4 (00:06→23:45)
[2017-08-17] MEDS: oxyCODONE 30 mg Immediate Release Tab PO PRN ×5 (01:36→23:45)
[2017-08-17] MEDS: DiphenhydrAMINE 50 mg/ml Inj IVP PRN ×2 (01:36→23:45)
[2017-08-17] MEDS: Sodium Bicarbonate 8.4% 75 MEQ in Sodium Chloride 0.45% 925 ML IV SCH (03:15)
[2017-08-17] MEDS: Morphine 4 MG/ML VIAL IV PRN (06:16)
[2017-08-17 07:17] LABS: MEAN CELL VOLUME 88.6 fL (81.0-99.0); MEAN CORPUSCULAR HEMOGLOBIN 29.6 pg (27.0-31.0); MEAN CORPUSCULAR HGB CONC 33.5 g/dL (33.0-37.0); MEAN PLATELET VOLUME 6.7 fL (7.2-11.7); RBC 2.71 Mil/uL (3.80-5.20); RED CELL DISTRIBUTION WIDTH 17.8 % (11.5-14.5)
--- NOTE | 2017-08-17 07:22 | PN ---
DATE: 08/16/2017 FOLLOWUP RENAL CONSULTATION LOCATION: Room 570, bed A. REQUESTED BY: Dr. Art Nathan. REASON FOR FOLLOWUP: Acute renal failure, hyperkalemia, for further evaluation. HISTORY OF PRESENT ILLNESS: Mrs. Johnson is a 36 years old young transgender female with a past medical history significant for longstanding hypertension, diabetes, chronic kidney disease, massive proteinuria, HIV positive, Charcot's foot, anemia, secondary hyperparathyroidism, metabolic acidosis, hyperkalemia, was admitted with drainage from the left foot, status post left foot transmetatarsal amputation more than a week ago, on IV antibiotics cefepime and vancomycin. The patient was not complaining any shortness of breath or chest pain. No palpitation. The patient was found to have elevated BUN and creatinine today. On Wednesday,creatinine was 3.8, now this morning creatinine was 5.8. Denies any urinary symptoms. No dysuria or frequency. PHYSICAL EXAMINATION: VITAL SIGNS: This morning as follows; blood pressure 114/70, pulse 90, respirations 20, temperature 98.8, saturations 96%. Height 6 feet 3 inches and weight is 280 pounds. GENERAL: Mrs. Johnson is a 36 years old young transgender female, well-built, well-nourished, not in distress, external appearance of male. HEENT: Pupils normal and reactive to light and accommodation. Conjunctivae pink. Sclerae anicteric. Tongue is moist. Trachea is midline. LUNGS: Symmetric on both sides. Bilateral breath sounds present. Clear to auscultation. CVS: [place] at the fifth intercostal space, midclavicular line. S1, S2 audible. No murmur or gallop. ABDOMEN: Normal in appearance, soft, tympanic. No guarding. No rigidity. No hepatosplenomegaly. TECHNICAL APPLICATIONS SCIENTIST: The patient is alert, awake and oriented x3. Nonfocal neuro examination. Cranial nerves II through XII grossly intact. Sensory and motor system are within normal limits. EXTREMITIES: No cyanosis, no clubbing, no edema on the right side. The patient has transmetatarsal amputation of the left leg and left leg is swollen from below the knee joint. CURRENT MEDICATIONS: Benadryl 50 mg IV every 6 hours, cefepime on hold since morning, daptomycin 500 mg IV piggyback every 48 hours, Epivir 150 mg p.o. daily, Florastor 250 mg p.o. b.i.d., Lantus 16 units subcu at bedtime, morphine 2 mg IV every 4 hours p.r.n., Nephro-Rosario 1 tablet daily, Labetalol 300 mg p.o. every 8 hours, amlodipine 10 mg daily, Novolin R for sliding scale, NovoLog 16 units subcu b.i.d., oxycodone 30 mg p.o. every 6 hours p.r.n., Procrit 20,000 units three times a week, Rocaltrol 0.25 mcg three times a week, sodium bicarbonate discontinued this morning, started on sodium bicarbonate 75 mEq in half normal saline at 70 mL per hour, Tivicay 50 mg p.o. daily, Tylenol 650 mg p.o., 300 mg p.o. b.i.d., and Zoloft 50 mg p.o. daily. LABORATORY DATA: As of 08/16/2017; WBC 11.4, hemoglobin 8.7, hematocrit is 26.9, platelets 433, sodium 133, potassium 5.5, chloride 102, CO2 18, anion gap 13, BUN 75, creatinine 5.8, glucose is 124, calcium 9.2. Urine for eosinophils are positive. Urine osmolality 330. Urine creatinine 139.1, urine sodium is 39, urine potassium is 38.1, and random vancomycin level is 12.2. Serum osmolality is 298. . ASSESSMENT: In summary, Mrs. Johnson is a 36 years old young female with hypertension, diabetes, proteinuria, chronic kidney disease, anemia, metabolic acidosis, hyperkalemia, secondary hyperparathyroidism, Charcot's foot status post transmetatarsal amputation with worsening renal function, now urine eosinophils are positive. 1. Acute renal failure on chronic kidney disease, rule out acute interstitial nephritis secondary to antibiotics vancomycin and cefepime, most likely vancomycin induced. 2. Hyperkalemia. 3. Hyperchloremic metabolic acidosis. 4. Anemia secondary to renal failure and infection and human immunodeficiency virus. 5. Secondary hyperparathyroidism. PLAN: Discontinue vancomycin and cefepime and started on daptomycin and we will also give Kayexalate 30 gm p.o. x1 dose. Discussed with the patient regarding the need to take Kayexalate and also repeat CBC, BMP in a.m. If renal function does not improve, the patient may need temporary hemodialysis. We will start IV fluids with bicarb 75 mEq in half normal saline at 70 mL per hour. Prognosis is guarded. Case discussed with Dr. Art Nathan in rounds this morning. Thank you for allowing me to participate in your patient's care. Weston Brambila MD
[2017-08-17] MEDS: (Novolin R) Insulin Human Regular 100 units/ml vial SC SCH ×4 (07:34→22:21)
[2017-08-17 07:46] LABS: ALB/GLOB RATIO 0.6 (1.0-2.1); ALBUMIN 3.1 g/dL (3.5-5.0); CALCIUM 8.6 mg/dl (8.6-10.4)
[2017-08-17] MEDS: Multivitamin Vitamin B Complex (Nephro-Vite) Tab PO SCH (08:41)
[2017-08-17] MEDS: Saccharomyces Boulardi 250 mg Cap PO SCH ×2 (10:51→17:33)
[2017-08-17] MEDS: (Novolog) Insulin Aspart, Recombinant 100 u/ml 10 ml vial SC SCH ×2 (10:52→17:16)
--- NOTE | 2017-08-17 11:28 | CP.PCM.PN ---
Subjective - Date & Time of Evaluation Date of Evaluation: 08/17/17 Time of Evaluation: 11:27 - Subjective Subjective: pt is seen and examined, follow up consult is dictated #[id number] Objective - Vital Signs/Intake and Output Vital Signs (last 24 hours): Temp Pulse Resp BP Pulse Ox 99.9 F H 103 H 18 125/73 96 08/17/17 07:15 08/17/17 07:15 08/17/17 07:15 08/17/17 07:15 08/17/17 07:15 Intake and Output: 08/17/17 08/17/17 06:59 18:59 Output Total 1350 Balance -1350 - Medications Medications: Current Medications Abacavir Sulfate (Ziagen) 300 mg PO BID [facility] PRN Reason: Protocol Stop: 09/03/19 10:00 Last Admin: 08/17/17 10:52 Dose: 300 mg Acetaminophen (Tylenol 325mg Tab) 650 mg PO ONCE PRN PRN Reason: Fever >100.4 F Amlodipine Besylate (Norvasc) 10 mg PO DAILY [facility] Last Admin: 08/17/17 10:51 Dose: 10 mg Calcitriol (Rocaltrol) 0.25 mcg PO TTS [facility] Last Admin: 08/17/17 10:51 Dose: 0.25 mcg Diphenhydramine HCl (Benadryl) 50 mg IVP Q6H PRN PRN Reason: Insomnia Last Admin: 08/17/17 01:36 Dose: 50 mg Dolutegravir Sodium (Tivicay) 50 mg PO DAILY [facility] PRN Reason: Protocol Last Admin: 08/17/17 10:51 Dose: 50 mg Epoetin Anival (Procrit) 20,000 unit SC TTS [facility] Last Admin: 08/14/17 09:17 Dose: Not Given Cefepime HCl 1 gm/ Dextrose 50 mls @ 100 mls/hr IVPB DAILY [facility] PRN Reason: Protocol Last Admin: 08/15/17 09:48 Dose: 100 mls/hr Daptomycin 500 mg/ Sodium (Chloride) 100 mls @ 100 mls/hr IV Q48H [facility] PRN Reason: Protocol Stop: 08/21/17 12:46 Last Admin: 08/16/17 14:08 Dose: 100 mls/hr Sodium Bicarbonate 75 meq/ (Sodium Chloride) 1,000 mls @ 70 mls/hr IV .[id number] [facility] Last Admin: 08/16/17 14:08 Dose: 70 mls/hr Insulin Aspart (Novolog) 16 unit SC BID [facility] Last Admin: 08/17/17 10:52 Dose: Not Given Insulin Glargine (Lantus) 16 unit SC HS [facility] Last Admin: 08/16/17 21:48 Dose: Not Given Insulin Human Regular (Novolin R) 0 unit SC ACHS [facility] PRN Reason: Protocol Last Admin: 08/17/17 07:34 Dose: Not Given Labetalol HCl (Normodyne) 300 mg PO Q8H [facility] Last Admin: 08/17/17 08:40 Dose: 300 mg Lamivudine (Epivir) 150 mg PO DAILY [facility] PRN Reason: Protocol Stop: 09/03/19 08:00 Last Admin: 08/17/17 10:52 Dose: 150 mg Morphine Sulfate (Morphine) 2 mg IV Q4 PRN PRN Reason: Pain, severe (8-10) Last Admin: 08/17/17 06:16 Dose: 2 mg Oxycodone HCl (Oxycodone Immediate Release Tab) 30 mg PO Q6H PRN PRN Reason: Pain, moderate (4-7) Last Admin: 08/17/17 08:41 Dose: 30 mg Saccharomyces Boulardii (Florastor) 250 mg PO BID [facility] Last Admin: 08/17/17 10:51 Dose: 250 mg Sertraline HCl (Zoloft) 50 mg PO DAILY [facility] Last Admin: 08/17/17 10:51 Dose: 50 mg Vitamin B Complex/Vit C/Folic Acid (Nephro-Rosario) 1 tab PO 0800 [facility] Last Admin: 08/17/17 08:41 Dose: 1 tab - Labs Labs: 08/17/17 07:13 08/17/17 07:13 PT 14.4 SECONDS (9.7-12.2) H 08/05/17 14:01 INR 1.3 08/05/17 14:01 APTT 34 SECONDS (21-34) 08/05/17 14:01
[2017-08-17] MEDS: Epoetin Alfa Dialysis 20000 UNIT/ML Inj SC SCH (12:00)
--- NOTE | 2017-08-17 12:28 | CP.PCM.PN ---
Subjective - Date & Time of Evaluation Date of Evaluation: 08/17/17 Time of Evaluation: 12:25 - Subjective Subjective: CONDITIONPOOR. BUN/CREAT GOING UP K 4.9 74/6.4 FEBRILE. PAIN IN THE LEG INCREASING, REQUESTING MORE OXYCODONE. DISCUSSED WITH RENAL AND ID. SO ABTS WERE CHANGED. Objective - Vital Signs/Intake and Output Vital Signs (last 24 hours): Temp Pulse Resp BP Pulse Ox 99.9 F H 103 H 18 125/73 96 08/17/17 07:15 08/17/17 07:15 08/17/17 07:15 08/17/17 07:15 08/17/17 07:15 Intake and Output: 08/17/17 08/17/17 06:59 18:59 Output Total 1350 Balance -1350 - Medications Medications: Current Medications Abacavir Sulfate (Ziagen) 300 mg PO BID [facility] PRN Reason: Protocol Stop: 09/03/19 10:00 Last Admin: 08/17/17 10:52 Dose: 300 mg Acetaminophen (Tylenol 325mg Tab) 650 mg PO ONCE PRN PRN Reason: Fever >100.4 F Amlodipine Besylate (Norvasc) 10 mg PO DAILY [facility] Last Admin: 08/17/17 10:51 Dose: 10 mg Calcitriol (Rocaltrol) 0.25 mcg PO TTS [facility] Last Admin: 08/17/17 10:51 Dose: 0.25 mcg Diphenhydramine HCl (Benadryl) 50 mg IVP Q6H PRN PRN Reason: Insomnia Last Admin: 08/17/17 01:36 Dose: 50 mg Dolutegravir Sodium (Tivicay) 50 mg PO DAILY [facility] PRN Reason: Protocol Last Admin: 08/17/17 10:51 Dose: 50 mg Epoetin Anival (Procrit) 20,000 unit SC TTS [facility] Last Admin: 08/14/17 09:17 Dose: Not Given Cefepime HCl 1 gm/ Dextrose 50 mls @ 100 mls/hr IVPB DAILY [facility] PRN Reason: Protocol Last Admin: 08/15/17 09:48 Dose: 100 mls/hr Daptomycin 500 mg/ Sodium (Chloride) 100 mls @ 100 mls/hr IV Q48H [facility] PRN Reason: Protocol Stop: 08/21/17 12:46 Last Admin: 08/16/17 14:08 Dose: 100 mls/hr Sodium Bicarbonate 75 meq/ (Sodium Chloride) 1,000 mls @ 70 mls/hr IV .[id number] [facility] Last Admin: 08/16/17 14:08 Dose: 70 mls/hr Insulin Aspart (Novolog) 16 unit SC BID [facility] Last Admin: 08/17/17 10:52 Dose: Not Given Insulin Glargine (Lantus) 16 unit SC HS [facility] Last Admin: 08/16/17 21:48 Dose: Not Given Insulin Human Regular (Novolin R) 0 unit SC ACHS [facility] PRN Reason: Protocol Last Admin: 08/17/17 12:18 Dose: Not Given Labetalol HCl (Normodyne) 300 mg PO Q8H [facility] Last Admin: 08/17/17 08:40 Dose: 300 mg Lamivudine (Epivir) 150 mg PO DAILY [facility] PRN Reason: Protocol Stop: 09/03/19 08:00 Last Admin: 08/17/17 10:52 Dose: 150 mg Oxycodone HCl (Oxycodone Immediate Release Tab) 30 mg PO Q6H PRN PRN Reason: Pain, moderate (4-7) Last Admin: 08/17/17 08:41 Dose: 30 mg Saccharomyces Boulardii (Florastor) 250 mg PO BID [facility] Last Admin: 08/17/17 10:51 Dose: 250 mg Sertraline HCl (Zoloft) 50 mg PO DAILY [facility] Last Admin: 08/17/17 10:51 Dose: 50 mg Vitamin B Complex/Vit C/Folic Acid (Nephro-Rosario) 1 tab PO 0800 [facility] Last Admin: 08/17/17 08:41 Dose: 1 tab - Labs Labs: 08/17/17 07:13 08/17/17 07:13 PT 14.4 SECONDS (9.7-12.2) H 08/05/17 14:01 INR 1.3 08/05/17 14:01 APTT 34 SECONDS (21-34) 08/05/17 14:01 - Constitutional Appears: No Acute Distress, Chronically Ill - Eye Exam Eye Exam: EOMI, Normal appearance, PERRL Pupil Exam: NORMAL ACCOMODATION, PERRL - ENT Exam ENT Exam: Mucous Membranes Moist, Normal Exam - Neck Exam Neck Exam: Full ROM, Normal Inspection. absent: Lymphadenopathy - Respiratory Exam Respiratory Exam: Clear to Ausculation Bilateral, NORMAL BREATHING PATTERN - Cardiovascular Exam Cardiovascular Exam: REGULAR RHYTHM, +S1, +S2. absent: Murmur - GI/Abdominal Exam GI & Abdominal Exam: Soft, Normal Bowel Sounds. absent: Tenderness - Extremities Exam Additional comments: OM SAME. - Back Exam Back Exam: NORMAL INSPECTION Assessment and Plan - Assessment and Plan (Free Text) Assessment: OM LT FOOT. CH PAIN. CRF. DM. HTN. Plan: OXYCODONE Q4H. CT OTHER TREATMENT.
--- NOTE | 2017-08-17 13:09 | CP.PCM.PN ---
Subjective - Date & Time of Evaluation Date of Evaluation: 08/17/17 Time of Evaluation: 10:06 - Subjective Subjective: Podiatry Progress note for Dr. Coy 36 year old female seen at bedside today 11 days s/p L foot Chopart's amputation (DOS 08/06/17). Patient resting in bed comfortably, NAD. AAOx3. Reports mild pain at amputation site however well-controlled. States she has been ambulating minimally and believes her LLE is more swollen due to increased weightbearing. Dressing to left foot remains clean/dry/intact. Patient's Dressing came off overnight and was replaced with RAFFY bandage from [facility]. Patient explains that it became loose by itself. Denies N/V/F/D/C/SOB today. Objective - Vital Signs/Intake and Output Vital Signs (last 24 hours): Temp Pulse Resp BP Pulse Ox 99.9 F H 103 H 18 125/73 96 08/17/17 07:15 08/17/17 07:15 08/17/17 07:15 08/17/17 07:15 08/17/17 07:15 Intake and Output: 08/17/17 08/17/17 06:59 18:59 Output Total 1350 Balance -1350 - Medications Medications: Current Medications Abacavir Sulfate (Ziagen) 300 mg PO BID [facility] PRN Reason: Protocol Stop: 09/03/19 10:00 Last Admin: 08/17/17 10:52 Dose: 300 mg Acetaminophen (Tylenol 325mg Tab) 650 mg PO ONCE PRN PRN Reason: Fever >100.4 F Amlodipine Besylate (Norvasc) 10 mg PO DAILY [facility] Last Admin: 08/17/17 10:51 Dose: 10 mg Calcitriol (Rocaltrol) 0.25 mcg PO TTS [facility] Last Admin: 08/17/17 10:51 Dose: 0.25 mcg Diphenhydramine HCl (Benadryl) 50 mg IVP Q6H PRN PRN Reason: Insomnia Last Admin: 08/17/17 01:36 Dose: 50 mg Dolutegravir Sodium (Tivicay) 50 mg PO DAILY [facility] PRN Reason: Protocol Last Admin: 08/17/17 10:51 Dose: 50 mg Epoetin Anival (Procrit) 20,000 unit SC TTS [facility] Last Admin: 08/14/17 09:17 Dose: Not Given Cefepime HCl 1 gm/ Dextrose 50 mls @ 100 mls/hr IVPB DAILY [facility] PRN Reason: Protocol Last Admin: 08/15/17 09:48 Dose: 100 mls/hr Daptomycin 500 mg/ Sodium (Chloride) 100 mls @ 100 mls/hr IV Q48H [facility] PRN Reason: Protocol Stop: 08/21/17 12:46 Last Admin: 08/16/17 14:08 Dose: 100 mls/hr Sodium Bicarbonate 75 meq/ (Sodium Chloride) 1,000 mls @ 70 mls/hr IV .[id number] [facility] Last Admin: 08/16/17 14:08 Dose: 70 mls/hr Insulin Aspart (Novolog) 16 unit SC BID [facility] Last Admin: 08/17/17 10:52 Dose: Not Given Insulin Glargine (Lantus) 16 unit SC HS [facility] Last Admin: 08/16/17 21:48 Dose: Not Given Insulin Human Regular (Novolin R) 0 unit SC ACHS [facility] PRN Reason: Protocol Last Admin: 08/17/17 12:18 Dose: Not Given Labetalol HCl (Normodyne) 300 mg PO Q8H [facility] Last Admin: 08/17/17 08:40 Dose: 300 mg Lamivudine (Epivir) 150 mg PO DAILY [facility] PRN Reason: Protocol Stop: 09/03/19 08:00 Last Admin: 08/17/17 10:52 Dose: 150 mg Oxycodone HCl (Oxycodone Immediate Release Tab) 30 mg PO Q4H PRN PRN Reason: Pain, moderate (4-7) Saccharomyces Boulardii (Florastor) 250 mg PO BID [facility] Last Admin: 08/17/17 10:51 Dose: 250 mg Sertraline HCl (Zoloft) 50 mg PO DAILY [facility] Last Admin: 08/17/17 10:51 Dose: 50 mg Vitamin B Complex/Vit C/Folic Acid (Nephro-Rosario) 1 tab PO 0800 [facility] Last Admin: 08/17/17 08:41 Dose: 1 tab - Labs Labs: 08/17/17 07:13 08/17/17 07:13 PT 14.4 SECONDS (9.7-12.2) H 08/05/17 14:01 INR 1.3 08/05/17 14:01 APTT 34 SECONDS (21-34) 08/05/17 14:01 - Constitutional Appears: Well, Non-toxic, No Acute Distress - Head Exam Head Exam: ATRAUMATIC - Extremities Exam Additional comments: Left Lower Extremity exam: dressing appears c/d/i with no strikethrough evident VASC- DP pulse faintly palpable, skin temp runs warm to warm, nonpitting edema noted to left leg extending from knee joint distally into stump DERM- surgical site remains intact with surgical site well coapted along medial aspect with no evidence of wound dehiscence, plantarlateral surgical site appears macerated with gross lichenification of pedal skin; the lateral distal stump site has a circular opening which measures approx 1 cm x 1 cm which appears to be granulating inwards, mild amount of serosanginous drainage noted from wound, moderate malodor present NEURO- gross and protective pedal sensation are diminished ORTHO- minimal tenderness noted to palpation of the surgical site laterally and plantarly - Neurological Exam Neurological Exam: Alert, Awake, Oriented x3 - Psychiatric Exam Psychiatric exam: Normal Affect, Normal Mood - Skin Skin Exam: Normal Color, Warm Assessment and Plan - Assessment and Plan (Free Text) Assessment: 36 year old female patient seen 11 days s/p Chopart's amputation (DOS 08/06/17) Plan: Patient examined and evaluated at bedside Discussed with attending, Dr. Coy Labs and vitals reviewed - afebrile, WBC 11.0 Continue local wound care - saline cleanse, betadine soaked gauze, ABD, kerlix, coban Intra-op wound cultures: Coagulase Neg Staph c/w IV abx as per ID Dr. Del Valle Continue pain mgt per primary team Patient may be PWB to left heel in surgical shoe with the assistance of a walker Podiatry will continue to follow
--- NOTE | 2017-08-17 21:28 | CP.PCM.PN ---
Subjective - Date & Time of Evaluation Date of Evaluation: 08/17/17 Time of Evaluation: 15:00 - Subjective Subjective: Has foot pain. Objective - Vital Signs/Intake and Output Vital Signs (last 24 hours): Temp Pulse Resp BP Pulse Ox 99.1 F 105 H 24 111/65 97 08/17/17 16:00 08/17/17 16:00 08/17/17 16:00 08/17/17 16:00 08/17/17 16:00 Intake and Output: 08/17/17 08/18/17 18:59 06:59 Intake Total 680 Balance 680 - Medications Medications: Current Medications Abacavir Sulfate (Ziagen) 300 mg PO BID [facility] PRN Reason: Protocol Stop: 09/03/19 10:00 Last Admin: 08/17/17 17:32 Dose: 300 mg Acetaminophen (Tylenol 325mg Tab) 650 mg PO ONCE PRN PRN Reason: Fever >100.4 F Amlodipine Besylate (Norvasc) 10 mg PO DAILY [facility] Last Admin: 08/17/17 10:51 Dose: 10 mg Calcitriol (Rocaltrol) 0.25 mcg PO TTS [facility] Last Admin: 08/17/17 10:51 Dose: 0.25 mcg Diphenhydramine HCl (Benadryl) 50 mg IVP Q6H PRN PRN Reason: Insomnia Last Admin: 08/17/17 01:36 Dose: 50 mg Dolutegravir Sodium (Tivicay) 50 mg PO DAILY [facility] PRN Reason: Protocol Last Admin: 08/17/17 10:51 Dose: 50 mg Epoetin Anival (Procrit) 20,000 unit SC TTS [facility] Last Admin: 08/17/17 12:00 Dose: 20,000 unit Cefepime HCl 1 gm/ Dextrose 50 mls @ 100 mls/hr IVPB DAILY [facility] PRN Reason: Protocol Last Admin: 08/15/17 09:48 Dose: 100 mls/hr Daptomycin 500 mg/ Sodium (Chloride) 100 mls @ 100 mls/hr IV Q48H [facility] PRN Reason: Protocol Stop: 08/21/17 12:46 Last Admin: 08/16/17 14:08 Dose: 100 mls/hr Sodium Bicarbonate 75 meq/ (Sodium Chloride) 1,000 mls @ 70 mls/hr IV .[id number] [facility] Last Admin: 08/16/17 14:08 Dose: 70 mls/hr Insulin Aspart (Novolog) 16 unit SC BID [facility] Last Admin: 08/17/17 17:16 Dose: Not Given Insulin Glargine (Lantus) 16 unit SC HS [facility] Last Admin: 08/16/17 21:48 Dose: Not Given Insulin Human Regular (Novolin R) 0 unit SC ACHS [facility] PRN Reason: Protocol Last Admin: 08/17/17 17:16 Dose: Not Given Labetalol HCl (Normodyne) 300 mg PO Q8H [facility] Last Admin: 08/17/17 16:45 Dose: Not Given Lamivudine (Epivir) 100 mg PO DAILY [facility] PRN Reason: Protocol Stop: 09/03/19 08:00 Oxycodone HCl (Oxycodone Immediate Release Tab) 30 mg PO Q4H PRN PRN Reason: Pain, moderate (4-7) Last Admin: 08/17/17 18:32 Dose: 30 mg Saccharomyces Boulardii (Florastor) 250 mg PO BID [facility] Last Admin: 08/17/17 17:33 Dose: 250 mg Sertraline HCl (Zoloft) 50 mg PO DAILY [facility] Last Admin: 08/17/17 10:51 Dose: 50 mg Vitamin B Complex/Vit C/Folic Acid (Nephro-Rosario) 1 tab PO 0800 [facility] Last Admin: 08/17/17 08:41 Dose: 1 tab - Labs Labs: 08/17/17 07:13 08/17/17 07:13 PT 14.4 SECONDS (9.7-12.2) H 08/05/17 14:01 INR 1.3 08/05/17 14:01 APTT 34 SECONDS (21-34) 08/05/17 14:01 - Head Exam Head Exam: ATRAUMATIC - Eye Exam Eye Exam: Normal appearance - ENT Exam ENT Exam: Mucous Membranes Dry - Respiratory Exam Respiratory Exam: NORMAL BREATHING PATTERN - Cardiovascular Exam Cardiovascular Exam: +S1, +S2 - GI/Abdominal Exam GI & Abdominal Exam: Normal Bowel Sounds Assessment and Plan (1) Anemia Assessment & Plan: multifactorial anemia of chronic disease from osteomyelitis anemia of CKD anemia of HIV on KIT to decrease transfusion requirements. transfusion support PRN Status: Acute (2) Monoclonal gammopathy Assessment & Plan: + monoclonal protein detected in urine abnormal free light chain ratio skeletal survey to evaluate for lytic lesions possible bone marrow +/- kidney biopsy; discussed with the patient who prefers to not have a biopsy during this admission but will reconsider at a later date Status: Acute
--- NOTE | 2017-08-17 21:29 | CP.PCM.PN ---
Subjective - Date & Time of Evaluation Date of Evaluation: 08/16/17 Time of Evaluation: 09:05 - Subjective Subjective: Has foot pain. Refused Procrit over the weekend Objective - Vital Signs/Intake and Output Vital Signs (last 24 hours): Temp Pulse Resp BP Pulse Ox 99.1 F 105 H 24 111/65 97 08/17/17 16:00 08/17/17 16:00 08/17/17 16:00 08/17/17 16:00 08/17/17 16:00 Intake and Output: 08/17/17 08/18/17 18:59 06:59 Intake Total 680 Balance 680 - Medications Medications: Current Medications Abacavir Sulfate (Ziagen) 300 mg PO BID [facility] PRN Reason: Protocol Stop: 09/03/19 10:00 Last Admin: 08/17/17 17:32 Dose: 300 mg Acetaminophen (Tylenol 325mg Tab) 650 mg PO ONCE PRN PRN Reason: Fever >100.4 F Amlodipine Besylate (Norvasc) 10 mg PO DAILY [facility] Last Admin: 08/17/17 10:51 Dose: 10 mg Calcitriol (Rocaltrol) 0.25 mcg PO TTS [facility] Last Admin: 08/17/17 10:51 Dose: 0.25 mcg Diphenhydramine HCl (Benadryl) 50 mg IVP Q6H PRN PRN Reason: Insomnia Last Admin: 08/17/17 01:36 Dose: 50 mg Dolutegravir Sodium (Tivicay) 50 mg PO DAILY [facility] PRN Reason: Protocol Last Admin: 08/17/17 10:51 Dose: 50 mg Epoetin Anival (Procrit) 20,000 unit SC TTS [facility] Last Admin: 08/17/17 12:00 Dose: 20,000 unit Cefepime HCl 1 gm/ Dextrose 50 mls @ 100 mls/hr IVPB DAILY [facility] PRN Reason: Protocol Last Admin: 08/15/17 09:48 Dose: 100 mls/hr Daptomycin 500 mg/ Sodium (Chloride) 100 mls @ 100 mls/hr IV Q48H [facility] PRN Reason: Protocol Stop: 08/21/17 12:46 Last Admin: 08/16/17 14:08 Dose: 100 mls/hr Sodium Bicarbonate 75 meq/ (Sodium Chloride) 1,000 mls @ 70 mls/hr IV .[id number] [facility] Last Admin: 08/16/17 14:08 Dose: 70 mls/hr Insulin Aspart (Novolog) 16 unit SC BID [facility] Last Admin: 08/17/17 17:16 Dose: Not Given Insulin Glargine (Lantus) 16 unit SC HS [facility] Last Admin: 08/16/17 21:48 Dose: Not Given Insulin Human Regular (Novolin R) 0 unit SC ACHS [facility] PRN Reason: Protocol Last Admin: 08/17/17 17:16 Dose: Not Given Labetalol HCl (Normodyne) 300 mg PO Q8H [facility] Last Admin: 08/17/17 16:45 Dose: Not Given Lamivudine (Epivir) 100 mg PO DAILY [facility] PRN Reason: Protocol Stop: 09/03/19 08:00 Oxycodone HCl (Oxycodone Immediate Release Tab) 30 mg PO Q4H PRN PRN Reason: Pain, moderate (4-7) Last Admin: 08/17/17 18:32 Dose: 30 mg Saccharomyces Boulardii (Florastor) 250 mg PO BID [facility] Last Admin: 08/17/17 17:33 Dose: 250 mg Sertraline HCl (Zoloft) 50 mg PO DAILY [facility] Last Admin: 08/17/17 10:51 Dose: 50 mg Vitamin B Complex/Vit C/Folic Acid (Nephro-Rosario) 1 tab PO 0800 [facility] Last Admin: 08/17/17 08:41 Dose: 1 tab - Labs Labs: 08/17/17 07:13 08/17/17 07:13 PT 14.4 SECONDS (9.7-12.2) H 08/05/17 14:01 INR 1.3 08/05/17 14:01 APTT 34 SECONDS (21-34) 08/05/17 14:01 - Head Exam Head Exam: ATRAUMATIC - Eye Exam Eye Exam: Normal appearance - ENT Exam ENT Exam: Mucous Membranes Dry - Respiratory Exam Respiratory Exam: NORMAL BREATHING PATTERN - Cardiovascular Exam Cardiovascular Exam: +S1, +S2 - GI/Abdominal Exam GI & Abdominal Exam: Normal Bowel Sounds Assessment and Plan (1) Anemia Assessment & Plan: multifactorial anemia of chronic disease from osteomyelitis anemia of CKD anemia of HIV on KIT to decrease transfusion requirements. transfusion support PRN Status: Acute (2) Monoclonal gammopathy Assessment & Plan: + monoclonal protein detected in urine abnormal free light chain ratio skeletal survey to evaluate for lytic lesions possible bone marrow +/- kidney biopsy; discussed with the patient who prefers to not have a biopsy during this admission but will reconsider at a later date Status: Acute
[2017-08-17] MEDS: (Lantus) Insulin Glargine, Recombinant SC SCH (22:21)
--- NOTE | 2017-08-18 02:42 | PN ---
DATE: 08/17/2017 FOLLOWUP RENAL CONSULTATION LOCATION: The patient is located in room 570, bed A. HISTORY OF PRESENT ILLNESS: Mrs. Johnson is a 36-year-old young transgender female with history of hypertension, diabetes, nephrotic range proteinuria, osteomyelitis of the foot, Charcot's foot, chronic kidney disease stage 4, anemia, secondary hyperparathyroidism, hyperkalemia, metabolic acidosis, was admitted with a nonhealing left foot ulcer and drainage and subsequently the patient underwent left foot transmetatarsal amputation. Her hospital course was complicated by metabolic acidosis, hyperkalemia, now with acute renal failure on chronic kidney disease with worsening renal function for the last 2-3 days. The patient denies any headache, dizziness. Denies any chest pain or palpitation. Denies any fever or cough. No abdominal pain. No nausea, vomiting, diarrhea. PHYSICAL EXAMINATION: VITAL SIGNS: This morning as follows; blood pressure 125/73, pulse 103, respiration 18, temperature 99.9, saturation 96%. Height 6 feet 3 inches, weight is 280 pounds. GENERAL: Mrs. Johnson is a 36 years old young transgender female, looks male, not in acute distress. HEENT: Pupils normal, react to light and accommodation. Conjunctivae pink. Sclerae anicteric. Tongue is moist and trachea is midline. LUNGS: Symmetric on both sides. Bilateral breath sounds present. Clear to auscultation. CVS: [place] at the fifth intercostal space, midclavicular line. S1 and S2 audible. No murmur or gallop. ABDOMEN: Normal in appearance, soft, tympanic. No guarding, no rigidity. No hepatosplenomegaly. WOOD SCALER: The patient is alert, awake, oriented x3. Nonfocal neuro examination. EXTREMITIES: No cyanosis, no clubbing, no edema on the right leg . The patient has a dressing to the left foot status post transmetatarsal amputation. The patient also has swelling of the left leg below the knee joint. CURRENT MEDICATIONS: Benadryl 50 mg IV every 6 hours, daptomycin 500 mg every 48 hours, Epivir 100 mg p.o. daily, Florastor 250 mg p.o. b.i.d., Lantus 16 units subcu at bedtime, Nephro-Rosario 1 tablet daily, labetalol 300 mg p.o. every 8 hours, amlodipine 10 mg p.o. daily, Novolin R for sliding scale, NovoLog 16 units subcu b.i.d., oxycodone 30 mg p.o. every 4 hours p.r.n., Procrit 20,000 units three times a week, Rocaltrol 0.25 mcg p.o. three times a week, sodium bicarb drip 75 mEq in half normal saline at 70 mL/hour, Tivicay 50 mg p.o. daily, Tylenol, abacavir 300 mg p.o. b.i.d., Zoloft 50 mg p.o. daily. LABORATORY DATA: WBC 11, hemoglobin 8, hematocrit is 24, platelets 393, sodium 133, potassium 4.9, chloride 101, CO2 18, BUN 74, creatinine 6.4, glucose 115, calcium 8.6, phosphorus 6.7 and AST 53, ALT 53, alkaline phos is 256. Total protein 8.6, albumin is 3.1. ASSESSMENT: In summary, Mrs. Johnson is a 36 years old young transgender female with hypertension, diabetes, nephrotic range proteinuria, chronic kidney disease stage 4, Charcot's foot, status post transmetatarsal amputation of the left foot about 10 days ago on IV antibiotic cefepime and vancomycin since admission with worsening renal function on hold off antibiotics cefepime and vancomycin for the last 24 hours, started on daptomycin. 1. Acute renal failure on chronic kidney disease stage 4, most likely secondary to acute interstitial nephritis, cannot rule out acute tubular necrosis less likely, chronic kidney disease is most likely secondary to diabetic nephropathy, cannot rule out underlying chronic glomerulonephritis such as focal segmental glomerulosclerosis or human immunodeficiency virus associated nephropathy. 2. Anemia secondary to chronic kidney disease and infection and human immunodeficiency virus. 3. Metabolic acidosis secondary to renal failure. 4. Status post hyperkalemia. The patient was given Kayexalate yesterday and potassium is within normal limits today. 5. Hypertension. 6. Diabetes. Sugars are under control. 7. Hyperphosphatemia most likely secondary to secondary hyperparathyroidism and acute renal failure. PLAN: Continue IV fluids half-normal saline with 75 mEq sodium bicarbonate at 70 mL/hour. Continue monitor BMP and CBC in a.m. The patient is refusing hemodialysis at this time, continue to monitor electrolytes and will add Renvela 800 mg p.o. t.i.d. We will follow with you. Thank you for allowing me to participate in your patient's care. Weston Brambila MD [facility] # [id number]
[2017-08-18] MEDS: oxyCODONE 30 mg Immediate Release Tab PO PRN ×5 (04:42→21:34)
[2017-08-18] MEDS: Sodium Bicarbonate 8.4% 75 MEQ in Sodium Chloride 0.45% 925 ML IV SCH ×2 (08:00→23:17)
[2017-08-18 08:25] LABS: ALB/GLOB RATIO 0.5 (1.0-2.1); ALBUMIN 2.9 g/dL (3.5-5.0); CALCIUM 9.1 mg/dl (8.6-10.4)
[2017-08-18] MEDS: (Novolin R) Insulin Human Regular 100 units/ml vial SC SCH ×4 (08:30→21:00)
[2017-08-18] MEDS ORDERED: Sod Polystyrene Sulf 15 gm/60 ml Susp PO ONE (08:54)
[2017-08-18] MEDS: Multivitamin Vitamin B Complex (Nephro-Vite) Tab PO SCH (09:00)
[2017-08-18] MEDS: Labetalol Hydrochloride 300 mg Tab PO SCH ×2 (09:00→16:28)
[2017-08-18] MEDS ORDERED: LamiVUDine 10 mg/ml Syringe PO SCH (10:00)
[2017-08-18] MEDS: Saccharomyces Boulardi 250 mg Cap PO SCH ×2 (10:56→17:53)
[2017-08-18] MEDS: (Novolog) Insulin Aspart, Recombinant 100 u/ml 10 ml vial SC SCH ×2 (10:57→17:46)
--- NOTE | 2017-08-18 12:37 | CP.PCM.PN ---
Subjective - Date & Time of Evaluation Date of Evaluation: 08/18/17 Time of Evaluation: 12:35 - Subjective Subjective: renal function deteriorating. bun90 creat 7.6 k 5.4 pt needs dialysis, pt refusing. febtile. Objective - Vital Signs/Intake and Output Vital Signs (last 24 hours): Temp Pulse Resp BP Pulse Ox 101.0 F H 106 H 20 125/53 L 97 08/18/17 06:00 08/18/17 00:00 08/18/17 00:00 08/18/17 00:00 08/18/17 00:00 Intake and Output: 08/18/17 08/18/17 06:59 18:59 Intake Total 1360 Balance 1360 - Medications Medications: Current Medications Abacavir Sulfate (Ziagen) 300 mg PO BID [facility] PRN Reason: Protocol Stop: 09/03/19 10:00 Last Admin: 08/18/17 10:49 Dose: 300 mg Amlodipine Besylate (Norvasc) 10 mg PO DAILY [facility] Last Admin: 08/18/17 10:56 Dose: 10 mg Calcitriol (Rocaltrol) 0.25 mcg PO TTS [facility] Last Admin: 08/17/17 10:51 Dose: 0.25 mcg Diphenhydramine HCl (Benadryl) 50 mg IVP Q6H PRN PRN Reason: Insomnia Last Admin: 08/17/17 23:45 Dose: 50 mg Dolutegravir Sodium (Tivicay) 50 mg PO DAILY [facility] PRN Reason: Protocol Last Admin: 08/18/17 10:50 Dose: 50 mg Epoetin Anival (Procrit) 20,000 unit SC TTS [facility] Last Admin: 08/17/17 12:00 Dose: 20,000 unit Cefepime HCl 1 gm/ Dextrose 50 mls @ 100 mls/hr IVPB DAILY [facility] PRN Reason: Protocol Last Admin: 08/15/17 09:48 Dose: 100 mls/hr Daptomycin 500 mg/ Sodium (Chloride) 100 mls @ 100 mls/hr IV Q48H [facility] PRN Reason: Protocol Stop: 08/21/17 12:46 Last Admin: 08/16/17 14:08 Dose: 100 mls/hr Sodium Bicarbonate 75 meq/ (Sodium Chloride) 1,000 mls @ 70 mls/hr IV .[id number] [facility] Last Admin: 08/18/17 08:00 Dose: 70 mls/hr Insulin Aspart (Novolog) 16 unit SC BID [facility] Last Admin: 08/18/17 10:57 Dose: Not Given Insulin Glargine (Lantus) 16 unit SC HS [facility] Last Admin: 08/17/17 22:21 Dose: Not Given Insulin Human Regular (Novolin R) 0 unit SC ACHS [facility] PRN Reason: Protocol Last Admin: 08/18/17 08:30 Dose: Not Given Labetalol HCl (Normodyne) 300 mg PO Q8H [facility] Last Admin: 08/18/17 09:00 Dose: 300 mg Lamivudine (Epivir) 100 mg PO DAILY [facility] PRN Reason: Protocol Stop: 09/03/19 08:00 Oxycodone HCl (Oxycodone Immediate Release Tab) 30 mg PO Q4H PRN PRN Reason: Pain, moderate (4-7) Last Admin: 08/18/17 09:08 Dose: 30 mg Saccharomyces Boulardii (Florastor) 250 mg PO BID [facility] Last Admin: 08/18/17 10:56 Dose: 250 mg Sertraline HCl (Zoloft) 50 mg PO DAILY [facility] Last Admin: 08/18/17 10:56 Dose: 50 mg Sevelamer Carbonate (Renvela) 800 mg PO TIDCC [facility] Last Admin: 08/18/17 09:00 Dose: 800 mg Vitamin B Complex/Vit C/Folic Acid (Nephro-Rosario) 1 tab PO 0800 [facility] Last Admin: 08/18/17 09:00 Dose: 1 tab - Labs Labs: 08/17/17 07:13 08/18/17 07:41 PT 14.4 SECONDS (9.7-12.2) H 08/05/17 14:01 INR 1.3 08/05/17 14:01 APTT 34 SECONDS (21-34) 08/05/17 14:01 - Constitutional Appears: No Acute Distress, Chronically Ill - Eye Exam Eye Exam: EOMI, Normal appearance, PERRL Pupil Exam: NORMAL ACCOMODATION, PERRL - ENT Exam ENT Exam: Mucous Membranes Moist, Normal Exam - Neck Exam Neck Exam: Full ROM, Normal Inspection. absent: Lymphadenopathy - Respiratory Exam Respiratory Exam: Clear to Ausculation Bilateral, NORMAL BREATHING PATTERN - Cardiovascular Exam Cardiovascular Exam: REGULAR RHYTHM, +S1, +S2. absent: Murmur - GI/Abdominal Exam GI & Abdominal Exam: Soft, Normal Bowel Sounds. absent: Tenderness - Extremities Exam Extremities Exam: Full ROM, Normal Capillary Refill, Normal Inspection. absent : Joint Swelling, Pedal Edema - Back Exam Back Exam: NORMAL INSPECTION - Neurological Exam Neurological Exam: Alert, Awake, CN II-XII Intact, Normal Gait, Oriented x3 Assessment and Plan - Assessment and Plan (Free Text) Assessment: same. Plan: for iv abts. medical renal treatment.
[2017-08-18] MEDS: DAPTOmycin 500 MG in Sodium Chloride 0.9% 100 ML IV SCH (13:45)
--- NOTE | 2017-08-18 15:53 | CP.PCM.PN ---
Subjective - Date & Time of Evaluation Date of Evaluation: 08/18/17 Time of Evaluation: 15:53 - Subjective Subjective: pt is een and examined, follow up consult is dictated # pt is refusing hemodialysis, pt is aware of risk of cardiac arrythmias and kayexalate 30 gm po x1 Objective - Vital Signs/Intake and Output Vital Signs (last 24 hours): Temp Pulse Resp BP Pulse Ox 101.0 F H 106 H 20 125/53 L 97 08/18/17 06:00 08/18/17 00:00 08/18/17 00:00 08/18/17 00:00 08/18/17 00:00 Intake and Output: 08/18/17 08/18/17 06:59 18:59 Intake Total 1360 400 Balance 1360 400 - Medications Medications: Current Medications Abacavir Sulfate (Ziagen) 300 mg PO BID [facility] PRN Reason: Protocol Stop: 09/03/19 10:00 Last Admin: 08/18/17 10:49 Dose: 300 mg Amlodipine Besylate (Norvasc) 10 mg PO DAILY [facility] Last Admin: 08/18/17 10:56 Dose: 10 mg Calcitriol (Rocaltrol) 0.25 mcg PO TTS [facility] Last Admin: 08/17/17 10:51 Dose: 0.25 mcg Diphenhydramine HCl (Benadryl) 50 mg IVP Q6H PRN PRN Reason: Insomnia Last Admin: 08/17/17 23:45 Dose: 50 mg Dolutegravir Sodium (Tivicay) 50 mg PO DAILY [facility] PRN Reason: Protocol Last Admin: 08/18/17 10:50 Dose: 50 mg Epoetin Anival (Procrit) 20,000 unit SC TTS [facility] Last Admin: 08/17/17 12:00 Dose: 20,000 unit Cefepime HCl 1 gm/ Dextrose 50 mls @ 100 mls/hr IVPB DAILY [facility] PRN Reason: Protocol Last Admin: 08/15/17 09:48 Dose: 100 mls/hr Daptomycin 500 mg/ Sodium (Chloride) 100 mls @ 100 mls/hr IV Q48H [facility] PRN Reason: Protocol Stop: 08/21/17 12:46 Last Admin: 08/18/17 13:45 Dose: 100 mls/hr Sodium Bicarbonate 75 meq/ (Sodium Chloride) 1,000 mls @ 70 mls/hr IV .[id number] [facility] Last Admin: 08/18/17 08:00 Dose: 70 mls/hr Insulin Aspart (Novolog) 16 unit SC BID [facility] Last Admin: 08/18/17 10:57 Dose: Not Given Insulin Glargine (Lantus) 16 unit SC HS [facility] Last Admin: 08/17/17 22:21 Dose: Not Given Insulin Human Regular (Novolin R) 0 unit SC ACHS [facility] PRN Reason: Protocol Last Admin: 08/18/17 12:00 Dose: Not Given Labetalol HCl (Normodyne) 300 mg PO Q8H [facility] Last Admin: 08/18/17 09:00 Dose: 300 mg Lamivudine (Epivir) 100 mg PO DAILY [facility] PRN Reason: Protocol Stop: 09/03/19 08:00 Last Admin: 08/18/17 10:00 Dose: Not Given Oxycodone HCl (Oxycodone Immediate Release Tab) 30 mg PO Q4H PRN PRN Reason: Pain, moderate (4-7) Last Admin: 08/18/17 13:55 Dose: 30 mg Saccharomyces Boulardii (Florastor) 250 mg PO BID [facility] Last Admin: 08/18/17 10:56 Dose: 250 mg Sertraline HCl (Zoloft) 50 mg PO DAILY [facility] Last Admin: 08/18/17 10:56 Dose: 50 mg Sevelamer Carbonate (Renvela) 800 mg PO TIDCC [facility] Last Admin: 08/18/17 13:00 Dose: 800 mg Vitamin B Complex/Vit C/Folic Acid (Nephro-Rosario) 1 tab PO 0800 [facility] Last Admin: 08/18/17 09:00 Dose: 1 tab - Labs Labs: 08/17/17 07:13 08/18/17 07:41 PT 14.4 SECONDS (9.7-12.2) H 08/05/17 14:01 INR 1.3 08/05/17 14:01 APTT 34 SECONDS (21-34) 08/05/17 14:01
--- NOTE | 2017-08-18 19:58 | CP.PCM.PN ---
Subjective - Date & Time of Evaluation Date of Evaluation: 08/18/17 Time of Evaluation: 06:00 - Subjective Subjective: still refusing HD HAART rx reordered prognosis poor Objective - Vital Signs/Intake and Output Vital Signs (last 24 hours): Temp Pulse Resp BP Pulse Ox 97.5 F L 98 H 20 115/65 97 08/18/17 16:00 08/18/17 16:00 08/18/17 16:00 08/18/17 16:00 08/18/17 16:00 Intake and Output: 08/18/17 08/19/17 18:59 06:59 Intake Total 400 Balance 400 - Medications Medications: Current Medications Abacavir Sulfate (Ziagen) 300 mg PO BID [facility] PRN Reason: Protocol Stop: 09/03/19 10:00 Last Admin: 08/18/17 17:53 Dose: 300 mg Amlodipine Besylate (Norvasc) 10 mg PO DAILY [facility] Last Admin: 08/18/17 10:56 Dose: 10 mg Calcitriol (Rocaltrol) 0.25 mcg PO TTS [facility] Last Admin: 08/17/17 10:51 Dose: 0.25 mcg Diphenhydramine HCl (Benadryl) 50 mg IVP Q6H PRN PRN Reason: Insomnia Last Admin: 08/17/17 23:45 Dose: 50 mg Dolutegravir Sodium (Tivicay) 50 mg PO DAILY [facility] PRN Reason: Protocol Last Admin: 08/18/17 10:50 Dose: 50 mg Epoetin Anival (Procrit) 20,000 unit SC TTS [facility] Last Admin: 08/17/17 12:00 Dose: 20,000 unit Cefepime HCl 1 gm/ Dextrose 50 mls @ 100 mls/hr IVPB DAILY [facility] PRN Reason: Protocol Last Admin: 08/15/17 09:48 Dose: 100 mls/hr Daptomycin 500 mg/ Sodium (Chloride) 100 mls @ 100 mls/hr IV Q48H [facility] PRN Reason: Protocol Stop: 08/21/17 12:46 Last Admin: 08/18/17 13:45 Dose: 100 mls/hr Sodium Bicarbonate 75 meq/ (Sodium Chloride) 1,000 mls @ 70 mls/hr IV .[id number] [facility] Last Admin: 08/18/17 08:00 Dose: 70 mls/hr Insulin Aspart (Novolog) 16 unit SC BID [facility] Last Admin: 08/18/17 17:46 Dose: Not Given Insulin Glargine (Lantus) 16 unit SC HS [facility] Last Admin: 08/17/17 22:21 Dose: Not Given Insulin Human Regular (Novolin R) 0 unit SC ACHS [facility] PRN Reason: Protocol Last Admin: 08/18/17 16:41 Dose: Not Given Labetalol HCl (Normodyne) 300 mg PO Q8H [facility] Last Admin: 08/18/17 16:28 Dose: Not Given Lamivudine (Epivir) 100 mg PO DAILY [facility] PRN Reason: Protocol Stop: 09/03/19 08:00 Last Admin: 08/18/17 10:00 Dose: Not Given Ondansetron HCl (Zofran Inj) 4 mg IVP Q6H PRN PRN Reason: Nausea/Vomiting Last Admin: 08/18/17 19:29 Dose: 4 mg Oxycodone HCl (Oxycodone Immediate Release Tab) 30 mg PO Q4H PRN PRN Reason: Pain, moderate (4-7) Last Admin: 08/18/17 17:53 Dose: 30 mg Saccharomyces Boulardii (Florastor) 250 mg PO BID [facility] Last Admin: 08/18/17 17:53 Dose: 250 mg Sertraline HCl (Zoloft) 50 mg PO DAILY [facility] Last Admin: 08/18/17 10:56 Dose: 50 mg Sevelamer Carbonate (Renvela) 800 mg PO TIDCC [facility] Last Admin: 08/18/17 17:53 Dose: 800 mg Vitamin B Complex/Vit C/Folic Acid (Nephro-Rosario) 1 tab PO 0800 [facility] Last Admin: 08/18/17 09:00 Dose: 1 tab - Labs Labs: 08/17/17 07:13 08/18/17 07:41 PT 14.4 SECONDS (9.7-12.2) H 08/05/17 14:01 INR 1.3 08/05/17 14:01 APTT 34 SECONDS (21-34) 08/05/17 14:01 - Constitutional Appears: Chronically Ill - Head Exam Head Exam: NORMOCEPHALIC - Eye Exam Eye Exam: PERRL - ENT Exam ENT Exam: Mucous Membranes Dry - Neck Exam Neck Exam: absent: Lymphadenopathy - Respiratory Exam Respiratory Exam: Decreased Breath Sounds - Cardiovascular Exam Cardiovascular Exam: REGULAR RHYTHM - GI/Abdominal Exam GI & Abdominal Exam: Distended - Rectal Exam Rectal Exam: Deferred - Exam Exam: NORMAL INSPECTION - Extremities Exam Extremities Exam: Pedal Edema - Back Exam Back Exam: absent: CVA tenderness (L), CVA tenderness (R) Assessment and Plan (1) Anemia Status: Acute (2) Chronic ulcer of left leg Status: Chronic (3) HIV disease Status: Chronic (4) GAEL (acute kidney injury) Status: Acute (5) Abscess and cellulitis Status: Acute
[2017-08-18] MEDS: (Lantus) Insulin Glargine, Recombinant SC SCH (21:00)
[2017-08-18] MEDS: DiphenhydrAMINE 50 mg/ml Inj IVP PRN (21:35)
--- NOTE | 2017-08-18 22:27 | CP.PCM.PN ---
Subjective - Date & Time of Evaluation Date of Evaluation: 08/18/17 Time of Evaluation: 20:00 - Subjective Subjective: Noted worsening renal function, declined dialysis Objective - Vital Signs/Intake and Output Vital Signs (last 24 hours): Temp Pulse Resp BP Pulse Ox 97.5 F L 98 H 20 115/65 97 08/18/17 16:00 08/18/17 16:00 08/18/17 16:00 08/18/17 16:00 08/18/17 16:00 Intake and Output: 08/18/17 08/19/17 18:59 06:59 Intake Total 400 Balance 400 - Medications Medications: Current Medications Abacavir Sulfate (Ziagen) 300 mg PO BID [facility] PRN Reason: Protocol Stop: 09/03/19 10:00 Last Admin: 08/18/17 17:53 Dose: 300 mg Amlodipine Besylate (Norvasc) 10 mg PO DAILY [facility] Last Admin: 08/18/17 10:56 Dose: 10 mg Calcitriol (Rocaltrol) 0.25 mcg PO TTS [facility] Last Admin: 08/17/17 10:51 Dose: 0.25 mcg Diphenhydramine HCl (Benadryl) 50 mg IVP Q6H PRN PRN Reason: Insomnia Last Admin: 08/18/17 21:35 Dose: 50 mg Dolutegravir Sodium (Tivicay) 50 mg PO DAILY [facility] PRN Reason: Protocol Last Admin: 08/18/17 10:50 Dose: 50 mg Epoetin Anival (Procrit) 20,000 unit SC TTS [facility] Last Admin: 08/17/17 12:00 Dose: 20,000 unit Cefepime HCl 1 gm/ Dextrose 50 mls @ 100 mls/hr IVPB DAILY [facility] PRN Reason: Protocol Last Admin: 08/15/17 09:48 Dose: 100 mls/hr Daptomycin 500 mg/ Sodium (Chloride) 100 mls @ 100 mls/hr IV Q48H [facility] PRN Reason: Protocol Stop: 08/21/17 12:46 Last Admin: 08/18/17 13:45 Dose: 100 mls/hr Sodium Bicarbonate 75 meq/ (Sodium Chloride) 1,000 mls @ 70 mls/hr IV .[id number] [facility] Last Admin: 08/18/17 08:00 Dose: 70 mls/hr Insulin Aspart (Novolog) 16 unit SC BID [facility] Last Admin: 08/18/17 17:46 Dose: Not Given Insulin Glargine (Lantus) 16 unit SC HS [facility] Last Admin: 08/18/17 21:00 Dose: Not Given Insulin Human Regular (Novolin R) 0 unit SC ACHS [facility] PRN Reason: Protocol Last Admin: 08/18/17 21:00 Dose: Not Given Labetalol HCl (Normodyne) 300 mg PO Q8H [facility] Last Admin: 08/18/17 16:28 Dose: Not Given Lamivudine (Epivir) 100 mg PO DAILY [facility] PRN Reason: Protocol Stop: 09/03/19 08:00 Last Admin: 08/18/17 10:00 Dose: Not Given Ondansetron HCl (Zofran Inj) 4 mg IVP Q6H PRN PRN Reason: Nausea/Vomiting Last Admin: 08/18/17 19:29 Dose: 4 mg Oxycodone HCl (Oxycodone Immediate Release Tab) 30 mg PO Q4H PRN PRN Reason: Pain, moderate (4-7) Last Admin: 08/18/17 21:34 Dose: 30 mg Saccharomyces Boulardii (Florastor) 250 mg PO BID [facility] Last Admin: 08/18/17 17:53 Dose: 250 mg Sertraline HCl (Zoloft) 50 mg PO DAILY [facility] Last Admin: 08/18/17 10:56 Dose: 50 mg Sevelamer Carbonate (Renvela) 800 mg PO TIDCC [facility] Last Admin: 08/18/17 17:53 Dose: 800 mg Vitamin B Complex/Vit C/Folic Acid (Nephro-Rosario) 1 tab PO 0800 [facility] Last Admin: 08/18/17 09:00 Dose: 1 tab - Labs Labs: 08/17/17 07:13 08/18/17 07:41 PT 14.4 SECONDS (9.7-12.2) H 08/05/17 14:01 INR 1.3 08/05/17 14:01 APTT 34 SECONDS (21-34) 08/05/17 14:01 - Head Exam Head Exam: ATRAUMATIC - Eye Exam Eye Exam: Normal appearance - ENT Exam ENT Exam: Mucous Membranes Dry - Respiratory Exam Respiratory Exam: NORMAL BREATHING PATTERN - Cardiovascular Exam Cardiovascular Exam: +S1, +S2 - GI/Abdominal Exam GI & Abdominal Exam: Normal Bowel Sounds Assessment and Plan (1) Anemia Assessment & Plan: multifactorial anemia of chronic disease from osteomyelitis anemia of CKD anemia of HIV on KIT to decrease transfusion requirements. transfusion support PRN Status: Acute (2) Monoclonal gammopathy Assessment & Plan: + monoclonal protein detected in urine abnormal free light chain ratio skeletal survey to evaluate for lytic lesions possible bone marrow +/- kidney biopsy; discussed with the patient who prefers to not have a biopsy during this admission but will reconsider at a later date Status: Acute
[2017-08-19] MEDS: Labetalol Hydrochloride 300 mg Tab PO SCH ×3 (00:11→17:00)
[2017-08-19] MEDS: oxyCODONE 30 mg Immediate Release Tab PO PRN ×3 (02:31→17:23)
--- NOTE | 2017-08-19 03:35 | PN ---
DATE: 08/18/2017 FOLLOWUP RENAL CONSULTATION LOCATION: Room 570 bed A. REQUESTED BY: Dr. Art Nathan. REASON FOR FOLLOWUP: Acute renal failure, hyperkalemia, metabolic acidosis SUBJECTIVE: Mrs. Johnson is 36 years old young transgender female with a history of hypertension, diabetes, nephrotic range proteinuria, chronic kidney disease stage 4, HIV positive, noncompliance with medication, Charcot's foot and left foot osteomyelitis with chronic infection, status post left foot transmetatarsal amputation about 10 days ago on IV antibiotics cefepime and vancomycin. Now, the patient was found to have worsening renal function for the last 3-4 days and also a elevated potassium. Her creatinine on 08/13/2017 was 3.5, 08/14/2017 is 3.8 and 08/16/2017 is 5.8 and 08/17/2017 is 6.4 and 08/18/2017 is 7.6. The patient is not in acute distress, denies any complaints. No chest pain, no palpitation. No fever. No cough. No shortness of breath. No urinary symptoms. The patient is refusing hemodialysis at this time. PHYSICAL EXAMINATION: VITAL SIGNS: Blood pressure this morning 125/73, pulse 103, respiration 18, temperature 99.9, saturation 96%. Height 6 feet 3 inches and weight is 280 pounds. GENERAL: Mrs. Johnson is a 36 years old young transgender female, well-built, well-nourished, looks male externally. HEENT: Pupils normal, react to light and accommodation. Conjunctivae pink. Sclerae anicteric. Tongue is moist and trachea is midline. LUNGS: Symmetric on both sides. Bilateral breath sounds present. Clear to auscultation. CVS: [place] at the fifth intercostal space, midclavicular line. S1 and S2 audible. No murmur or gallop. ABDOMEN: Normal in appearance, soft, tympanic. No guarding, no rigidity. No hepatosplenomegaly. ACCOUNTS RECEIVABLE ASSISTANT: The patient is alert, awake, oriented x3. Sensory and motor system is grossly within normal limits. EXTREMITIES: No cyanosis, no clubbing, no edema on the right leg. The patient has swelling of the left leg below the knee joint and also the patient has a dressing to the left foot status post transmetatarsal amputation. CURRENT MEDICATIONS: Benadryl, cefepime on hold, daptomycin 500 mg every 48 hours, Epivir 100 mg p.o. daily, Florastor 250 mg p.o. b.i.d., Lantus 16 units subcu at bedtime, Nephro-Rosario 1 tablet daily, labetalol 300 mg p.o. every 8 hours, amlodipine 10 mg p.o. daily, NovoLog 16 units subcu b.i.d., oxycodone, Procrit 20,000 units three times a week, Renvela 800 mg p.o. t.i.d., calcitriol 0.25 mcg three times a week, IV fluids half-normal saline with 75 mEq at 70 mL/hour noncompliance, Tivicay 50 mg p.o. daily, Ziagen 300 mg p.o. b.i.d., Zofran 4 mg IV every 6 hours p.r.n., Zoloft 50 mg p.o. daily. LABORATORY DATA: Include as follows; sodium 133, potassium 5.4, chloride 102, CO2 16, BUN 90, creatinine 7.6, glucose is 111, calcium 9.1, total bili 0.9, AST 57, ALT 52, alkaline phosphatase 315, total protein 8.3, albumin is 2.9 and Accu-Cheks 120, 124. Wound culture from 07/30/2017, 07/31/2017 and also 08/06/2017 positive for Staph coag negative. ASSESSMENT: In summary, Mrs. Johnson is a 36 years old young transgender female with hypertension, diabetes, proteinuria, chronic kidney disease stage 4, hyperkalemia, metabolic acidosis and worsening renal function, human immunodeficiency virus positive status post transmetatarsal amputation with low grade fever. 1. Acute renal failure on chronic kidney disease stage 4, most likely secondary to acute interstitial nephritis secondary to drugs, vancomycin. 2. Hyperkalemia secondary to worsening renal function acute renal failure. 3. Metabolic acidosis. 4. Hypertension. Blood pressure is stable. 5. Osteomyelitis of foot and status post transmetatarsal amputation. PLAN: Continue daptomycin, agree with Kayexalate this morning and discussed with the patient regarding the need for hemodialysis, the patient is refusing hemodialysis, the patient is aware of the risk of not getting hemodialysis including hyperkalemia and cardiac arrest and including , but still the patient is refusing hemodialysis at this time. Continue to monitor electrolytes and low sodium, low potassium diet and continue sodium bicarb IV drip and continue Procrit, continue Renvela, continue calcitriol. Overall prognosis is guarded. Thank you for allowing me to participate in your patient's care. Weston Brambila MD
[2017-08-19] MEDS: DiphenhydrAMINE 50 mg/ml Inj IVP PRN ×2 (03:50→17:26)
[2017-08-19] MEDS: (Novolin R) Insulin Human Regular 100 units/ml vial SC SCH ×4 (08:27→21:32)
[2017-08-19 08:41] LABS: ALBUMIN 2.9 g/dL (3.5-5.0); CALCIUM 8.8 mg/dl (8.6-10.4)
[2017-08-19 08:42] LABS: ALB/GLOB RATIO 0.5 (1.0-2.1)
--- NOTE | 2017-08-19 09:27 | CP.PCM.PN ---
Subjective - Date & Time of Evaluation Date of Evaluation: 08/19/17 Time of Evaluation: 09:22 - Subjective Subjective: pt is seen and examined, follow up consult is dictated #[id number] 1. hyperkalemia 2. Justin on ckd-4 3. masisve proteinuria r/o DM nephroapthy ,r/o HIVAN 4. Anemia 5.fever r/o sepsis, consider blood c/s, iv abx a sper Dr. Del Valle 6.htn 7.dm prognosis is guarded kayexalate 30 gm po x 1 consider psych consult Pt is refusing hemodialysis at this time pt is refusing to sign the refusal of treatment- release from liability form Objective - Vital Signs/Intake and Output Vital Signs (last 24 hours): Temp Pulse Resp BP Pulse Ox 100.5 F H 112 H 22 111/60 96 08/19/17 07:20 08/19/17 07:20 08/19/17 07:20 08/19/17 07:20 08/19/17 07:20 - Medications Medications: Current Medications Abacavir Sulfate (Ziagen) 300 mg PO BID [facility] PRN Reason: Protocol Stop: 09/03/19 10:00 Last Admin: 08/18/17 17:53 Dose: 300 mg Amlodipine Besylate (Norvasc) 10 mg PO DAILY [facility] Last Admin: 08/18/17 10:56 Dose: 10 mg Calcitriol (Rocaltrol) 0.25 mcg PO TTS [facility] Last Admin: 08/17/17 10:51 Dose: 0.25 mcg Diphenhydramine HCl (Benadryl) 50 mg IVP Q6H PRN PRN Reason: Insomnia Last Admin: 08/19/17 03:50 Dose: 50 mg Dolutegravir Sodium (Tivicay) 50 mg PO DAILY [facility] PRN Reason: Protocol Last Admin: 08/18/17 10:50 Dose: 50 mg Epoetin Anival (Procrit) 20,000 unit SC TTS [facility] Last Admin: 08/17/17 12:00 Dose: 20,000 unit Cefepime HCl 1 gm/ Dextrose 50 mls @ 100 mls/hr IVPB DAILY [facility] PRN Reason: Protocol Last Admin: 08/15/17 09:48 Dose: 100 mls/hr Daptomycin 500 mg/ Sodium (Chloride) 100 mls @ 100 mls/hr IV Q48H [facility] PRN Reason: Protocol Stop: 08/21/17 12:46 Last Admin: 08/18/17 13:45 Dose: 100 mls/hr Sodium Bicarbonate 75 meq/ (Sodium Chloride) 1,000 mls @ 70 mls/hr IV .[id number] [facility] Last Admin: 08/18/17 23:17 Dose: Not Given Insulin Aspart (Novolog) 16 unit SC BID [facility] Last Admin: 08/18/17 17:46 Dose: Not Given Insulin Glargine (Lantus) 16 unit SC HS [facility] Last Admin: 08/18/17 21:00 Dose: Not Given Insulin Human Regular (Novolin R) 0 unit SC ACHS [facility] PRN Reason: Protocol Last Admin: 08/19/17 08:27 Dose: Not Given Labetalol HCl (Normodyne) 300 mg PO Q8H [facility] Last Admin: 08/19/17 08:25 Dose: Not Given Lamivudine (Epivir) 100 mg PO DAILY [facility] PRN Reason: Protocol Stop: 09/03/19 08:00 Last Admin: 08/18/17 10:00 Dose: Not Given Ondansetron HCl (Zofran Inj) 4 mg IVP Q6H PRN PRN Reason: Nausea/Vomiting Last Admin: 08/19/17 03:51 Dose: 4 mg Oxycodone HCl (Oxycodone Immediate Release Tab) 30 mg PO Q4H PRN PRN Reason: Pain, moderate (4-7) Last Admin: 08/19/17 02:31 Dose: 30 mg Saccharomyces Boulardii (Florastor) 250 mg PO BID [facility] Last Admin: 08/18/17 17:53 Dose: 250 mg Sertraline HCl (Zoloft) 50 mg PO DAILY [facility] Last Admin: 08/18/17 10:56 Dose: 50 mg Sevelamer Carbonate (Renvela) 800 mg PO TIDCC [facility] Last Admin: 08/18/17 17:53 Dose: 800 mg Sodium Polystyrene Sulfonate (Kayexalate Susp) 30 gm PO ONCE ONE Stop: 08/19/17 10:01 Vitamin B Complex/Vit C/Folic Acid (Nephro-Rosario) 1 tab PO 0800 [facility] Last Admin: 08/18/17 09:00 Dose: 1 tab - Labs Labs: 08/17/17 07:13 08/19/17 08:09 PT 14.4 SECONDS (9.7-12.2) H 08/05/17 14:01 INR 1.3 08/05/17 14:01 APTT 34 SECONDS (21-34) 08/05/17 14:01
[2017-08-19] MEDS ORDERED: Sod Polystyrene Sulf 15 gm/60 ml Susp PO ONE (10:00)
--- NOTE | 2017-08-19 10:10 | CP.PCM.PN ---
Subjective - Date & Time of Evaluation Date of Evaluation: 08/19/17 Time of Evaluation: 10:07 - Subjective Subjective: Podiatry Progress note for Dr. 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 Patient resting in bed comfortably, NAD. AAOx3. Reports mild pain at amputation site however well-controlled. States she has been ambulating minimally and believes her LLE is more swollen due to increased weight bearing. Dressing to left foot remains clean/dry/intact. Patient's Dressing came off overnight and was replaced with RAFFY bandage from [employer]. Patient explains that it became loose by itself. Denies N/V/F/D/C/SOB today. Objective - Vital Signs/Intake and Output Vital Signs (last 24 hours): Temp Pulse Resp BP Pulse Ox 100.5 F H 112 H 22 111/60 96 08/19/17 07:20 08/19/17 07:20 08/19/17 07:20 08/19/17 07:20 08/19/17 07:20 - Medications Medications: Current Medications Abacavir Sulfate (Ziagen) 300 mg PO BID [facility] PRN Reason: Protocol Stop: 09/03/19 10:00 Last Admin: 08/18/17 17:53 Dose: 300 mg Amlodipine Besylate (Norvasc) 10 mg PO DAILY [facility] Last Admin: 08/18/17 10:56 Dose: 10 mg Calcitriol (Rocaltrol) 0.25 mcg PO TTS [facility] Last Admin: 08/17/17 10:51 Dose: 0.25 mcg Diphenhydramine HCl (Benadryl) 50 mg IVP Q6H PRN PRN Reason: Insomnia Last Admin: 08/19/17 03:50 Dose: 50 mg Dolutegravir Sodium (Tivicay) 50 mg PO DAILY [facility] PRN Reason: Protocol Last Admin: 08/18/17 10:50 Dose: 50 mg Epoetin Anival (Procrit) 20,000 unit SC TTS [facility] Last Admin: 08/17/17 12:00 Dose: 20,000 unit Cefepime HCl 1 gm/ Dextrose 50 mls @ 100 mls/hr IVPB DAILY [facility] PRN Reason: Protocol Last Admin: 08/15/17 09:48 Dose: 100 mls/hr Daptomycin 500 mg/ Sodium (Chloride) 100 mls @ 100 mls/hr IV Q48H [facility] PRN Reason: Protocol Stop: 08/21/17 12:46 Last Admin: 08/18/17 13:45 Dose: 100 mls/hr Sodium Bicarbonate 75 meq/ (Sodium Chloride) 1,000 mls @ 70 mls/hr IV .[id number] [facility] Last Admin: 08/18/17 23:17 Dose: Not Given Insulin Aspart (Novolog) 16 unit SC BID [facility] Last Admin: 08/18/17 17:46 Dose: Not Given Insulin Glargine (Lantus) 16 unit SC HS [facility] Last Admin: 08/18/17 21:00 Dose: Not Given Insulin Human Regular (Novolin R) 0 unit SC ACHS [facility] PRN Reason: Protocol Last Admin: 08/19/17 08:27 Dose: Not Given Labetalol HCl (Normodyne) 300 mg PO Q8H [facility] Last Admin: 08/19/17 08:25 Dose: Not Given Lamivudine (Epivir) 100 mg PO DAILY [facility] PRN Reason: Protocol Stop: 09/03/19 08:00 Last Admin: 08/18/17 10:00 Dose: Not Given Ondansetron HCl (Zofran Inj) 4 mg IVP Q6H PRN PRN Reason: Nausea/Vomiting Last Admin: 08/19/17 03:51 Dose: 4 mg Oxycodone HCl (Oxycodone Immediate Release Tab) 30 mg PO Q4H PRN PRN Reason: Pain, moderate (4-7) Last Admin: 08/19/17 02:31 Dose: 30 mg Saccharomyces Boulardii (Florastor) 250 mg PO BID [facility] Last Admin: 08/18/17 17:53 Dose: 250 mg Sertraline HCl (Zoloft) 50 mg PO DAILY [facility] Last Admin: 08/18/17 10:56 Dose: 50 mg Sevelamer Carbonate (Renvela) 800 mg PO TIDCC [facility] Last Admin: 08/18/17 17:53 Dose: 800 mg Vitamin B Complex/Vit C/Folic Acid (Nephro-Rosario) 1 tab PO 0800 [facility] Last Admin: 08/18/17 09:00 Dose: 1 tab - Labs Labs: 08/17/17 07:13 08/19/17 08:09 PT 14.4 SECONDS (9.7-12.2) H 08/05/17 14:01 INR 1.3 08/05/17 14:01 APTT 34 SECONDS (21-34) 08/05/17 14:01 - Constitutional Appears: Well, Non-toxic, No Acute Distress - Extremities Exam Additional comments: Left Lower Extremity exam: dressing appears c/d/i with no strikethrough evident VASC- DP pulse faintly palpable, skin temp runs warm to warm, nonpitting edema noted to left leg extending from knee joint distally into stump DERM- surgical site remains intact with surgical site well coapted along medial aspect with no evidence of wound dehiscence, plantarlateral surgical site appears macerated with gross lichenification of pedal skin; the lateral distal stump site has a circular opening which measures approx 1 cm x 1 cm which appears to be granulating inwards, mild amount of serosanginous drainage noted from wound, moderate malodor present NEURO- gross and protective pedal sensation are diminished ORTHO- minimal tenderness noted to palpation of the surgical site laterally and plantarly - Neurological Exam Neurological Exam: Alert, Awake, CN II-XII Intact - Psychiatric Exam Psychiatric exam: Normal Affect, Normal Mood Assessment and Plan - Assessment and Plan (Free Text) Assessment: 36 year old female patient seen 12 days s/p Chopart's amputation (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 Coy Labs and vitals reviewed - temp:100.5, WBC 11.0 (08/17/17) Continue local wound care - saline cleanse, betadine soaked gauze, ABD, kerlix, coban Intra-op wound cultures: Coagulase Neg Staph c/w IV abx as per ID Dr. Del Valle Continue pain mgt per primary team Patient may be PWB to left heel in surgical shoe with the assistance of a walker Podiatry will continue to follow
[2017-08-19] MEDS: Saccharomyces Boulardi 250 mg Cap PO SCH ×2 (10:26→17:22)
[2017-08-19] MEDS: Multivitamin Vitamin B Complex (Nephro-Vite) Tab PO SCH (10:26)
[2017-08-19] MEDS: (Novolog) Insulin Aspart, Recombinant 100 u/ml 10 ml vial SC SCH ×2 (10:26→17:35)
[2017-08-19] MEDS: Epoetin Alfa Dialysis 20000 UNIT/ML Inj SC SCH (10:26)
--- NOTE | 2017-08-19 12:05 | CP.PCM.PN ---
Subjective - Date & Time of Evaluation Date of Evaluation: 08/19/17 Time of Evaluation: 12:01 - Subjective Subjective: CONDITION DETERIORATING. RENAL FUNCTION POOR. K 5.3, BUN 84, CREAT 7.9. PT NEEDS DIALYSIS EXPLAINED BY DR. HERNANDEZ AND REFUSES. PT ALSO REFUSES TELEMETRY (HYPERKALEMIA) PT UNCOOPERATIVE. AND ABUSIVE. Objective - Vital Signs/Intake and Output Vital Signs (last 24 hours): Temp Pulse Resp BP Pulse Ox 100.5 F H 112 H 22 111/60 96 08/19/17 07:20 08/19/17 07:20 08/19/17 07:20 08/19/17 07:20 08/19/17 07:20 - Medications Medications: Current Medications Abacavir Sulfate (Ziagen) 300 mg PO BID [facility] PRN Reason: Protocol Stop: 09/03/19 10:00 Last Admin: 08/19/17 10:26 Dose: 300 mg Amlodipine Besylate (Norvasc) 10 mg PO DAILY [facility] Last Admin: 08/19/17 10:27 Dose: Not Given Calcitriol (Rocaltrol) 0.25 mcg PO TTS [facility] Last Admin: 08/19/17 10:26 Dose: 0.25 mcg Diphenhydramine HCl (Benadryl) 50 mg IVP Q6H PRN PRN Reason: Insomnia Last Admin: 08/19/17 03:50 Dose: 50 mg Dolutegravir Sodium (Tivicay) 50 mg PO DAILY [facility] PRN Reason: Protocol Last Admin: 08/19/17 10:25 Dose: 50 mg Epoetin Anival (Procrit) 20,000 unit SC TTS [facility] Last Admin: 08/19/17 10:26 Dose: 20,000 unit Cefepime HCl 1 gm/ Dextrose 50 mls @ 100 mls/hr IVPB DAILY [facility] PRN Reason: Protocol Last Admin: 08/15/17 09:48 Dose: 100 mls/hr Daptomycin 500 mg/ Sodium (Chloride) 100 mls @ 100 mls/hr IV Q48H [facility] PRN Reason: Protocol Stop: 08/21/17 12:46 Last Admin: 08/18/17 13:45 Dose: 100 mls/hr Sodium Bicarbonate 75 meq/ (Sodium Chloride) 1,000 mls @ 70 mls/hr IV .[id number] [facility] Last Admin: 08/18/17 23:17 Dose: Not Given Insulin Aspart (Novolog) 16 unit SC BID [facility] Last Admin: 08/19/17 10:26 Dose: Not Given Insulin Glargine (Lantus) 16 unit SC HS [facility] Last Admin: 08/18/17 21:00 Dose: Not Given Insulin Human Regular (Novolin R) 0 unit SC ACHS [facility] PRN Reason: Protocol Last Admin: 08/19/17 08:27 Dose: Not Given Labetalol HCl (Normodyne) 300 mg PO Q8H [facility] Last Admin: 08/19/17 08:25 Dose: Not Given Lamivudine (Epivir) 100 mg PO Q24H [facility] PRN Reason: Protocol Stop: 09/02/17 13:01 Ondansetron HCl (Zofran Inj) 4 mg IVP Q6H PRN PRN Reason: Nausea/Vomiting Last Admin: 08/19/17 03:51 Dose: 4 mg Oxycodone HCl (Oxycodone Immediate Release Tab) 30 mg PO Q4H PRN PRN Reason: Pain, moderate (4-7) Last Admin: 08/19/17 10:21 Dose: 30 mg Saccharomyces Boulardii (Florastor) 250 mg PO BID [facility] Last Admin: 08/19/17 10:26 Dose: 250 mg Sertraline HCl (Zoloft) 50 mg PO DAILY [facility] Last Admin: 08/19/17 10:26 Dose: 50 mg Sevelamer Carbonate (Renvela) 800 mg PO TIDCC [facility] Last Admin: 08/19/17 10:25 Dose: 800 mg Vitamin B Complex/Vit C/Folic Acid (Nephro-Rosario) 1 tab PO 0800 [facility] Last Admin: 08/19/17 10:26 Dose: 1 tab - Labs Labs: 08/17/17 07:13 08/19/17 08:09 PT 14.4 SECONDS (9.7-12.2) H 08/05/17 14:01 INR 1.3 08/05/17 14:01 APTT 34 SECONDS (21-34) 08/05/17 14:01 - Constitutional Appears: No Acute Distress, Chronically Ill - Head Exam Head Exam: ATRAUMATIC, NORMAL INSPECTION, NORMOCEPHALIC - Eye Exam Eye Exam: EOMI, Normal appearance, PERRL Pupil Exam: NORMAL ACCOMODATION, PERRL - ENT Exam ENT Exam: Mucous Membranes Moist, Normal Exam - Neck Exam Neck Exam: Full ROM, Normal Inspection. absent: Lymphadenopathy - Respiratory Exam Respiratory Exam: Clear to Ausculation Bilateral, NORMAL BREATHING PATTERN - Cardiovascular Exam Cardiovascular Exam: REGULAR RHYTHM, +S1, +S2. absent: Murmur - GI/Abdominal Exam GI & Abdominal Exam: Soft, Normal Bowel Sounds. absent: Tenderness - Extremities Exam Additional comments: LT FOOT OM PRESENT. - Back Exam Back Exam: NORMAL INSPECTION - Neurological Exam Neurological Exam: Alert, Awake, CN II-XII Intact, Normal Gait, Oriented x3 Assessment and Plan - Assessment and Plan (Free Text) Assessment: OM. CRF. DM. Plan: FOR PALLIATIVE CARE EVAL. CT OTHER TREATMENT PER DR. MCKEON AND DR. REYES.
[2017-08-19] MEDS: Sodium Bicarbonate 8.4% 75 MEQ in Sodium Chloride 0.45% 925 ML IV SCH (12:35)
[2017-08-19] MEDS: LamiVUDine 10 mg/ml Syringe PO SCH (12:58)
--- NOTE | 2017-08-19 14:11 | CP.PCM.CON ---
History of Present Illness - History of Present Illness History of Present Illness: Palliative consult requested by Doctor leydi Nathan for goals of care discussion Patient is a transgender woman admitted with left foot non healing ulcer. Patient is fallowed as an outpatient by Doctor Isaak. Upon admission the D&C was performed by Doctor Mulligan. The MRI of LEs was not completed as patient could not tolerate exam. Based on clinical presentation and lab results, the BKA of left leg was suggested and patient refused it. Hb 6.6 on admission, 8.0 today, post blood transfusion The wound C&S are positive Staph infection. Multiple IV antibiotincs on board as per Doctor Eligio. Patient's kidney functions are worsening and patient refuses HD as suggested by many MDs. PMH: transgender, DM,DVT.HIV,osteomyelitis, Soc. Hx: single, lives alone Fam. Hx: denied Review of Systems - Constitutional Constitutional: absent: As Per HPI, Anorexia, Chills, Daytime Sleepiness, Excessive Sweating, Fatigue, Fever, Frequent Falls, Headache, Increased Appetite , Lethargy, Malaise, Night Sweats, Snoring, Sleep Apnea, Weight Gain, Weight Loss, Weakness, Other - EENT Eyes: absent: As Per HPI, Blind Spots, Blurred Vision, Change in Vision, Decreased Night Vision, Diplopia, Discharge, Dry Eye, Exophthalmos, Floaters, Irritation, Itchy Eyes, Loss of Peripheral Vision, Pain, Photophobia, Requires Corrective Lenses, Sees Flashes, Spots in Vision, Tunnel Vision, Other Visual Disturbances, Loss of Vision, Other Ears: absent: As Per HPI, Decreased Hearing, Ear Discharge, Ear Pain, Tinnitus, Abnormal Hearing, Disequilibrium, Dizziness, Other Nose/Mouth/Throat: absent: As Per HPI, Epistaxis, Nasal Congestion, Nasal Discharge, Nasal Obstruction, Nasal Trauma, Nose Pain, Post Nasal Drip, Sinus Pain, Sinus Pressure, Bleeding Gums, Change in Voice, Dental Pain, Dry Mouth, Dysphagia, Halitosis, Hoarsness, Lip Swelling, Mouth Lesions, Mouth Pain, Odynophagia, Sore Throat, Throat Swelling, Tongue Swelling, Facial Pain, Neck Pain, Neck Mass, Other - Cardiovascular Cardiovascular: Leg Ulcers - Respiratory Respiratory: absent: As Per HPI, Cough, Dyspnea, Hemoptysis, Dyspnea on Exertion , Wheezing, Snoring, Stridor, Pain on Inspiration, Chest Congestion, Excessive Mucous Production, Change in Mucous Color, Pain with Coughing, Other - Gastrointestinal Gastrointestinal: absent: As Per HPI, Abdominal Pain, Belching, Bloating, Change in Bowel Habits, Change in Stool Character, Coffee Ground Emesis, Constipation, Cramping, Diarrhea, Dyspepsia, Dysphagia, Early Satiety, Excessive Flatus, Fecal Incontinence, Heartburn, Hematemesis, Hematochezia, Loose Stools, Melena, Nausea, Odynophagia, Temesmus, Vomiting, Other - Menstruation Additional comments: transgender - Integumentary Additional comments: left foot large dressing - Neurological Neurological: absent: As Per HPI, Abnormal Gait, Abnormal Hearing, Abnormal Movements, Abnormal Speech, Behavioral Changes, Burning Sensations, Confusion, Convulsions, Disequilibrium, Dizziness, Numbness, Focal Weakness, Frequent Falls , Headaches, Lack of Coordination, Loss of Vision, Memory Loss, Paresthesias, Radicular Pain, Restless Legs, Sensory Deficit, Syncope, Tingling, Tremor, Vertigo, Weakness, Other Visual Disturbances, Other - Psychiatric Psychiatric: Anxiety - Hematologic/Lymphatic Hematologic: absent: As Per HPI, Easy Bleeding, Easy Bruising, Lymphadenopathy, Other Past Patient History - Infectious Disease Hx of Infectious Diseases: None - Past Medical History & Family History Past Medical History?: Yes - Past Social History Smoking Status: cigars - CARDIAC Hx Hypertension: Yes - PULMONARY Hx Respiratory Disorders: No - NEUROLOGICAL Hx Neurological Disorder: No - HEENT Hx HEENT Problems: No - RENAL Hx Chronic Kidney Disease: No - HEMATOLOGICAL/ONCOLOGICAL Hx Human Immunodeficiency Virus (HIV): Yes - INTEGUMENTARY Hx Dermatological Problems: Yes Other/Comment: ULCER BOTTOM LEFT FOOT LEFT FOOT SUTURE LINES TOES - MUSCULOSKELETAL/RHEUMATOLOGICAL Hx Musculoskeletal Disorders: Yes Hx Falls: Yes Hx Osteomyelitis: Yes (LEFT FOOT, receiving daily infusion) - GASTROINTESTINAL Hx Gastrointestinal Disorders: No - GENITOURINARY/GYNECOLOGICAL Hx Genitourinary Disorders: No - PSYCHIATRIC Hx Depression: Yes Hx Substance Use: Yes (OCCASIONALLY) - ANESTHESIA Hx Anesthesia: Yes Hx Anesthesia Reactions: No (unknown) Meds Home Medications: Home Medication List Medication Instructions Recorded Confirmed Type Cefepime [Maxipime] 1 gm IVPB DAILY 28 Days vial 08/13/17 Rx Vancomycin 1 GM [Vancomycin 1GM in 1 gm IVPB Q48H 28 Days bag 08/13/17 Rx Normal Saline Addvantage] Allergies/Adverse Reactions: Allergies Allergy/AdvReac Type Severity Reaction Status Date / Time acetaminophen [From Tylenol] Allergy RASH Verified 07/30/17 16:06 aspirin Allergy RASH Verified 07/30/17 16:06 hydromorphone [From Dilaudid] Allergy Verified 07/30/17 16:06 ketorolac tromethamine Allergy RASH Verified 07/30/17 16:06 [From Toradol] meperidine HCl [From Demerol] Allergy RASH Verified 07/30/17 16:06 oxycodone HCl [From Percocet] Allergy RASH Verified 07/30/17 16:06 peas Allergy ANAPHYLAXIS Verified 07/30/17 16:06 propoxyphene napsylate Allergy RASH Verified 07/30/17 16:06 [From Darvocet-N] - Medications Medications: Current Medications Abacavir Sulfate (Ziagen) 300 mg PO BID [facility] PRN Reason: Protocol Stop: 09/03/19 10:00 Last Admin: 08/19/17 10:26 Dose: 300 mg Amlodipine Besylate (Norvasc) 10 mg PO DAILY [facility] Last Admin: 08/19/17 10:27 Dose: Not Given Calcitriol (Rocaltrol) 0.25 mcg PO TTS [facility] Last Admin: 08/19/17 10:26 Dose: 0.25 mcg Diphenhydramine HCl (Benadryl) 50 mg IVP Q6H PRN PRN Reason: Insomnia Last Admin: 08/19/17 03:50 Dose: 50 mg Dolutegravir Sodium (Tivicay) 50 mg PO DAILY [facility] PRN Reason: Protocol Last Admin: 08/19/17 10:25 Dose: 50 mg Epoetin Anival (Procrit) 20,000 unit SC TTS [facility] Last Admin: 08/19/17 10:26 Dose: 20,000 unit Cefepime HCl 1 gm/ Dextrose 50 mls @ 100 mls/hr IVPB DAILY [facility] PRN Reason: Protocol Last Admin: 08/15/17 09:48 Dose: 100 mls/hr Daptomycin 500 mg/ Sodium (Chloride) 100 mls @ 100 mls/hr IV Q48H [facility] PRN Reason: Protocol Stop: 08/21/17 12:46 Last Admin: 08/18/17 13:45 Dose: 100 mls/hr Sodium Bicarbonate 75 meq/ (Sodium Chloride) 1,000 mls @ 70 mls/hr IV .[id number] [facility] Last Admin: 08/19/17 12:35 Dose: Not Given Insulin Aspart (Novolog) 16 unit SC BID [facility] Last Admin: 08/19/17 10:26 Dose: Not Given Insulin Glargine (Lantus) 16 unit SC HS [facility] Last Admin: 08/18/17 21:00 Dose: Not Given Insulin Human Regular (Novolin R) 0 unit SC ACHS [facility] PRN Reason: Protocol Last Admin: 08/19/17 12:57 Dose: 2 unit Labetalol HCl (Normodyne) 300 mg PO Q8H [facility] Last Admin: 08/19/17 08:25 Dose: Not Given Lamivudine (Epivir) 100 mg PO Q24H [facility] PRN Reason: Protocol Stop: 09/02/17 13:01 Last Admin: 08/19/17 12:58 Dose: 100 mg Ondansetron HCl (Zofran Inj) 4 mg IVP Q6H PRN PRN Reason: Nausea/Vomiting Last Admin: 08/19/17 12:55 Dose: 4 mg Oxycodone HCl (Oxycodone Immediate Release Tab) 30 mg PO Q4H PRN PRN Reason: Pain, moderate (4-7) Last Admin: 08/19/17 10:21 Dose: 30 mg Saccharomyces Boulardii (Florastor) 250 mg PO BID [facility] Last Admin: 08/19/17 10:26 Dose: 250 mg Sertraline HCl (Zoloft) 50 mg PO DAILY [facility] Last Admin: 08/19/17 10:26 Dose: 50 mg Sevelamer Carbonate (Renvela) 800 mg PO TIDCC [facility] Last Admin: 08/19/17 12:58 Dose: 800 mg Vitamin B Complex/Vit C/Folic Acid (Nephro-Rosario) 1 tab PO 0800 [facility] Last Admin: 08/19/17 10:26 Dose: 1 tab Physical Exam - Constitutional Appears: No Acute Distress - Head Exam Head Exam: ATRAUMATIC, NORMAL INSPECTION, NORMOCEPHALIC - Eye Exam Eye Exam: EOMI, Normal appearance, PERRL Pupil Exam: NORMAL ACCOMODATION, PERRL - ENT Exam ENT Exam: Mucous Membranes Moist, Normal Exam - Neck Exam Neck exam: Positive for: Normal Inspection - Respiratory Exam Respiratory Exam: Clear to Auscultation Bilateral, NORMAL BREATHING PATTERN - Cardiovascular Exam Cardiovascular Exam: Tachycardia, REGULAR RHYTHM - GI/Abdominal Exam GI & Abdominal Exam: Normal Bowel Sounds, Soft - Rectal Exam Rectal Exam: Deferred - Exam Additional comments: not examined - Extremities Exam Additional comments: left foot partial amputation - Back Exam Back exam: NORMAL INSPECTION - Neurological Exam Neurological exam: Alert, Oriented x3 - Psychiatric Exam Psychiatric exam: Anxious - Skin Skin Exam: Normal Color Results - Vital Signs Recent Vital Signs: Last Vital Signs Temp 100.5 F H 08/19/17 07:20 Pulse 112 H 08/19/17 07:20 Resp 22 08/19/17 07:20 BP 111/60 08/19/17 07:20 Pulse Ox 96 08/19/17 07:20 - Labs Result Diagrams: 08/17/17 07:13 08/19/17 08:09 Labs: Laboratory Results - last 24 hr 08/18/17 08/18/17 08/19/17 16:20 20:52 06:32 Sodium Potassium Chloride Carbon Dioxide Anion Gap BUN Creatinine Est GFR ( Amer) Est GFR (Non-Af Amer) POC Glucose (mg/dL) 110 119 H 127 H Random Glucose Calcium Total Bilirubin AST ALT Alkaline Phosphatase Total Protein Albumin Globulin Albumin/Globulin Ratio 08/19/17 08/19/17 08:09 11:39 Sodium 137 Potassium 5.3 H Chloride 103 Carbon Dioxide 22 Anion Gap 18 BUN 84 H Creatinine 7.9 H* Est GFR ( Amer) 7 Est GFR (Non-Af Amer) 6 POC Glucose (mg/dL) 154 H Random Glucose 101 Calcium 8.8 Total Bilirubin 0.9 AST 54 H ALT 44 Alkaline Phosphatase 320 H Total Protein 8.2 Albumin 2.9 L Globulin 5.3 H Albumin/Globulin Ratio 0.5 L Assessment & Plan - Assessment and Plan (Free Text) Assessment: Palliative consult Full Code, no Advance directive on the chart,PPS 50% I reviewed medical records, all diagnostic studies, examined and interviewed patient Patient is alert, oriented X 3 with affect that is flat and mood anxious. Patient is not easy to interact with , as she easily gets frustrated with trivial things.Physical exam is significant for left foot dressing post amputation. The rest of system organs not examined as patient refused it. BP 11/60, HR 112, Temp 100.5 BUN 84, Preschool Education Director 7.9 I discussed patient 's condition and griselda concerns about patient not excepting HD. Patient reported not having knowledge about HD and I offered plenty of information on the subject. I elicited patient's feelings about HD and patient stated being afraid of. Further I discussed risks with possibility of if kidney functions get worse. Patient stated understanding but still did not make decision. During our discussion, patient had fallen asleep or just kept her eyes closed , maybe to avoid further discussion. I offered to come back another time and she agreed. Impression * Chronically ill patient * Worsening kidney function with HD offered what patient refused * Poor insight in own health problems * Interrupted thought process, I am not sure if this patient has decision making capacity * Wound infection Suggestion * Patient needs to be approached again with clear explanation of care needed and risks if care refused * Psych eval for competency * Continue IV antibiotics as pr Doctor Eligio I will meet with patient one more time and try to discuss goals f care once again.
[2017-08-19 16:48] VITALS: RESP 20
[2017-08-19] MEDS: (Lantus) Insulin Glargine, Recombinant SC SCH (21:32)
--- NOTE | 2017-08-20 00:09 | CP.PCM.PN ---
Subjective - Date & Time of Evaluation Date of Evaluation: 08/19/17 Time of Evaluation: 19:00 - Subjective Subjective: Doesn't feel well, reports blood sugar low, drinking juice. Objective - Vital Signs/Intake and Output Vital Signs (last 24 hours): Temp Pulse Resp BP Pulse Ox 98.4 F 94 H 20 107/61 96 08/20/17 00:03 08/20/17 00:03 08/20/17 00:03 08/20/17 00:03 08/20/17 00:03 Intake and Output: 08/19/17 08/20/17 18:59 06:59 Intake Total 960 300 Output Total 550 Balance 960 -250 - Medications Medications: Current Medications Abacavir Sulfate (Ziagen) 300 mg PO BID [facility] PRN Reason: Protocol Stop: 09/03/19 10:00 Last Admin: 08/19/17 17:28 Dose: 300 mg Amlodipine Besylate (Norvasc) 10 mg PO DAILY [facility] Last Admin: 08/19/17 10:27 Dose: Not Given Calcitriol (Rocaltrol) 0.25 mcg PO TTS [facility] Last Admin: 08/19/17 10:26 Dose: 0.25 mcg Diphenhydramine HCl (Benadryl) 50 mg IVP Q6H PRN PRN Reason: Insomnia Last Admin: 08/19/17 17:26 Dose: 50 mg Dolutegravir Sodium (Tivicay) 50 mg PO DAILY [facility] PRN Reason: Protocol Last Admin: 08/19/17 10:25 Dose: 50 mg Epoetin Anival (Procrit) 20,000 unit SC TTS [facility] Last Admin: 08/19/17 10:26 Dose: 20,000 unit Cefepime HCl 1 gm/ Dextrose 50 mls @ 100 mls/hr IVPB DAILY [facility] PRN Reason: Protocol Last Admin: 08/15/17 09:48 Dose: 100 mls/hr Daptomycin 500 mg/ Sodium (Chloride) 100 mls @ 100 mls/hr IV Q48H [facility] PRN Reason: Protocol Stop: 08/21/17 12:46 Last Admin: 08/18/17 13:45 Dose: 100 mls/hr Insulin Aspart (Novolog) 16 unit SC BID [facility] Last Admin: 08/19/17 17:35 Dose: 16 unit Insulin Glargine (Lantus) 16 unit SC HS [facility] Last Admin: 08/19/17 21:32 Dose: Not Given Insulin Human Regular (Novolin R) 0 unit SC ACHS [facility] PRN Reason: Protocol Last Admin: 08/19/17 21:32 Dose: Not Given Labetalol HCl (Normodyne) 300 mg PO Q8H [facility] Last Admin: 08/19/17 17:00 Dose: Not Given Lamivudine (Epivir) 100 mg PO Q24H [facility] PRN Reason: Protocol Stop: 09/02/17 13:01 Last Admin: 08/19/17 12:58 Dose: 100 mg Ondansetron HCl (Zofran Inj) 4 mg IVP Q6H PRN PRN Reason: Nausea/Vomiting Last Admin: 08/19/17 22:06 Dose: 4 mg Oxycodone HCl (Oxycodone Immediate Release Tab) 30 mg PO Q4H PRN PRN Reason: Pain, moderate (4-7) Last Admin: 08/19/17 17:23 Dose: 30 mg Saccharomyces Boulardii (Florastor) 250 mg PO BID [facility] Last Admin: 08/19/17 17:22 Dose: 250 mg Sertraline HCl (Zoloft) 50 mg PO DAILY [facility] Last Admin: 08/19/17 10:26 Dose: 50 mg Sevelamer Carbonate (Renvela) 800 mg PO TIDCC [facility] Last Admin: 08/19/17 17:27 Dose: 800 mg Vitamin B Complex/Vit C/Folic Acid (Nephro-Rosario) 1 tab PO 0800 [facility] Last Admin: 08/19/17 10:26 Dose: 1 tab - Labs Labs: 08/17/17 07:13 08/19/17 08:09 PT 14.4 SECONDS (9.7-12.2) H 08/05/17 14:01 INR 1.3 08/05/17 14:01 APTT 34 SECONDS (21-34) 08/05/17 14:01 - Head Exam Head Exam: ATRAUMATIC - Eye Exam Eye Exam: Normal appearance - ENT Exam ENT Exam: Mucous Membranes Dry - Respiratory Exam Respiratory Exam: NORMAL BREATHING PATTERN - Cardiovascular Exam Cardiovascular Exam: +S1, +S2 - GI/Abdominal Exam GI & Abdominal Exam: Normal Bowel Sounds Assessment and Plan (1) Anemia Assessment & Plan: multifactorial anemia of chronic disease from osteomyelitis anemia of CKD anemia of HIV on KIT to decrease transfusion requirements. transfusion support PRN Status: Acute (2) Monoclonal gammopathy Assessment & Plan: + monoclonal protein detected in urine abnormal free light chain ratio skeletal survey to evaluate for lytic lesions possible bone marrow +/- kidney biopsy; discussed with the patient who prefers to not have a biopsy during this admission but will reconsider at a later date Status: Acute
[2017-08-20] MEDS: oxyCODONE 30 mg Immediate Release Tab PO PRN ×4 (01:37→19:21)
[2017-08-20] MEDS: DiphenhydrAMINE 50 mg/ml Inj IVP PRN ×3 (01:37→14:00)
--- NOTE | 2017-08-20 02:37 | PN ---
DATE: 08/19/2017 FOLLOWUP RENAL CONSULTATION LOCATION: The patient is located in room 570, bed A. REQUESTED BY: Art Nathan MD REASON FOR FOLLOWUP: Acute renal failure, chronic kidney disease, hyperkalemia, and for further evaluation. HISTORY OF PRESENT ILLNESS: Mrs. Johnson is a 36-year-old young transgender female with a past medical history significant for longstanding hypertension, diabetes, chronic kidney disease stage 4, nephrotic range proteinuria, Charcot's foot, osteomyelitis of the left foot, status post transmetatarsal amputation of the left foot, anemia, metabolic acidosis, hyperkalemia, secondary hyperparathyroidism who was found to have worsening renal function for the last 4 days and hyperkalemia. The patient is receiving Kayexalate for hyperkalemia p.r.n., and the patient is denying any chest pain or palpitation. Denies any shortness of breath. Denies any nausea, vomiting, diarrhea. The patient is refusing hemodialysis at this time for worsening renal function. PHYSICAL EXAMINATION: VITAL SIGNS: This morning as follows, blood pressure 111/60, pulse 112, respirations 22, temperature 100.5, saturation 96%, height 6 feet 3 inches, and weight is 280 pounds. GENERAL: Mrs. Johnson is a 36-year-old young transgender female, well-built, well-nourished, not in acute distress, external appearance male. HEENT: Pupils normal and reactive to light and accommodation. Conjunctivae pink. Sclerae anicteric. Tongue is moist. Trachea is midline. LUNGS: Symmetric on both sides. Bilateral breath sounds present. Clear to auscultation. CVS: [place] at the fifth intercostal space, midclavicular line. S1, S2 audible. No murmur or gallop. ABDOMEN: Normal in appearance, soft, tympanic. No guarding. No rigidity. No hepatosplenomegaly. CRIMINAL INTELLIGENCE SPECIALIST: The patient is alert, awake, oriented x3. Nonfocal neuro examination. Cranial nerves II through XII grossly intact. Sensory and motor system is within normal limits. EXTREMITIES: No cyanosis, no clubbing, no edema on the right leg. The patient has swelling of the left leg from below the knee joint, and the patient also has a dressing to the left foot. MEDICATIONS: Her current medications include as follows, Benadryl 50 mg IV every 6 hours p.r.n., daptomycin 500 mg every 48 hours, Epivir 100 mg p.o. every 24 hours, Florastor 250 mg p.o. b.i.d., Lantus 16 units subcu at bedtime, Nephro-Rosario 1 tablet daily, labetalol 300 mg p.o. every 8 hours, amlodipine 10 mg p.o. daily, Novolin R for sliding scale, NovoLog 16 units subcu b.i.d., oxycodone 30 mg p.o. every 4 hours p.r.n., Procrit 20,000 units three times a week, Renvela 800 mg p.o. t.i.d., Rocaltrol 0.25 mcg three times a week, and Tivicay 50 mg p.o. daily, Ziagen 300 mg p.o. b.i.d., Zofran 4 mg IV every 6 hours p.r.n., and Zoloft 50 mg p.o. daily. LABORATORY DATA: Include as follows, as of 08/09/2017, sodium 137, potassium 5.3, chloride 103, CO2 of 22, BUN 84, creatinine 7.9, glucose is 101, calcium 8.8. Total bili 0.9, AST 54, ALT 44, alkaline phosphatase 320, total protein 8.2, albumin is 2.9. Accu-Chek 154 and 124. Wound culture from 08/06/2017, left foot positive for Staph coag negative. Urine immunofixation faint band in IgG and kappa is present and history of dense polyclonal background, serum immunofixation, a faint band in the lambda is present, again history of dense polyclonal background, and vancomycin level as of 08/16/2017, 12.2. IMPRESSION: In summary, Mrs. Johnson is a 36-year-old young transgender female with hypertension, diabetes, chronic kidney disease stage 4, proteinuria, human immunodeficiency virus, nephrotic range proteinuria, Charcot's foot, osteomyelitis, status post transmetatarsal amputation, anemia, metabolic acidosis and hyperkalemia, secondary hyperparathyroidism with worsening renal function for the last 4 days from 3.5 to 7.9 today, and elevated serum potassium. 1. Acute renal failure, chronic kidney disease stage 4, rule out acute interstitial nephritis, rule out acute tubular necrosis. 2. Nephrotic range proteinuria, most likely secondary to diabetic nephropathy, cannot rule out underlying human immunodeficiency virus associated nephropathy or focal segmental glomerulonephritis. 3. Anemia secondary to multifactorial iron-deficiency, chronic kidney disease infection, and human immunodeficiency virus. 4. Hyperkalemia secondary to worsening renal function and noncompliance with diet. 5. Secondary hyperparathyroidism. Continue calcitriol three times a week. 6. Low grade fever, rule out sepsis. The patient is refusing hemodialysis at this time. The patient does not want to sign the refusal of treatment form and case discussed with Dr. Nance who called me regarding the patient's refusal form and notified him. The patient does not want to sign the refusal of treatment form at this time. Continue to monitor electrolytes daily and consider psych evaluation. We will follow with you. Thank you for allowing me to participate in your patient's care. Agree with Jodielaquang. Weston Brambila MD
[2017-08-20 07:25] LABS: HEMOGLOBIN 7.4 g/dL (11.0-16.0); MEAN CELL VOLUME 87.9 fL (81.0-99.0); MEAN CORPUSCULAR HEMOGLOBIN 29.1 pg (27.0-31.0); MEAN CORPUSCULAR HGB CONC 33.1 g/dL (33.0-37.0); MEAN PLATELET VOLUME 6.9 fL (7.2-11.7); RBC 2.55 Mil/uL (3.80-5.20); RED CELL DISTRIBUTION WIDTH 17.4 % (11.5-14.5); WHITE BLOOD COUNT 11.8 K/uL (4.8-10.8)
[2017-08-20] MEDS: (Novolin R) Insulin Human Regular 100 units/ml vial SC SCH ×4 (07:42→21:13)
[2017-08-20] MEDS: Multivitamin Vitamin B Complex (Nephro-Vite) Tab PO SCH (07:47)
[2017-08-20 08:09] LABS: CALCIUM 9.1 mg/dl (8.6-10.4)
[2017-08-20] MEDS: Labetalol Hydrochloride 300 mg Tab PO SCH ×2 (08:22→16:11)
[2017-08-20] MEDS: Saccharomyces Boulardi 250 mg Cap PO SCH ×2 (09:40→17:19)
[2017-08-20] MEDS: (Novolog) Insulin Aspart, Recombinant 100 u/ml 10 ml vial SC SCH ×2 (09:41→17:10)
--- NOTE | 2017-08-20 11:00 | CP.PCM.PN ---
Subjective - Date & Time of Evaluation Date of Evaluation: 08/20/17 Time of Evaluation: 11:00 - Subjective Subjective: pt is seen and examined, follow up consult is dictated #[id number] pt signed informed consent for hemodialysis, pt was explained regarding dialysis, different accesses, complications during treatment, such as low bp, crams, seizers, bleeding pt is requesting surgeon to insert rosamaria catheter and under sleep please request surgery consult for rosamaria catheter for wednesday Objective - Vital Signs/Intake and Output Vital Signs (last 24 hours): Temp Pulse Resp BP Pulse Ox 99.1 F 107 H 20 115/60 100 08/20/17 07:00 08/20/17 07:07 08/20/17 07:00 08/20/17 07:00 08/20/17 07:00 Intake and Output: 08/20/17 08/20/17 06:59 18:59 Intake Total 300 Output Total 550 Balance -250 - Medications Medications: Current Medications Abacavir Sulfate (Ziagen) 300 mg PO BID [facility] PRN Reason: Protocol Stop: 09/03/19 10:00 Last Admin: 08/20/17 09:40 Dose: 300 mg Amlodipine Besylate (Norvasc) 10 mg PO DAILY [facility] Last Admin: 08/20/17 09:40 Dose: 10 mg Calcitriol (Rocaltrol) 0.25 mcg PO TTS [facility] Last Admin: 08/19/17 10:26 Dose: 0.25 mcg Diphenhydramine HCl (Benadryl) 50 mg IVP Q6H PRN PRN Reason: Insomnia Last Admin: 08/20/17 07:47 Dose: 50 mg Dolutegravir Sodium (Tivicay) 50 mg PO DAILY [facility] PRN Reason: Protocol Last Admin: 08/20/17 09:40 Dose: 50 mg Epoetin Anival (Procrit) 20,000 unit SC TTS [facility] Last Admin: 08/19/17 10:26 Dose: 20,000 unit Cefepime HCl 1 gm/ Dextrose 50 mls @ 100 mls/hr IVPB DAILY [facility] PRN Reason: Protocol Last Admin: 08/15/17 09:48 Dose: 100 mls/hr Daptomycin 500 mg/ Sodium (Chloride) 100 mls @ 100 mls/hr IV Q48H [facility] PRN Reason: Protocol Stop: 08/21/17 12:46 Last Admin: 08/18/17 13:45 Dose: 100 mls/hr Insulin Aspart (Novolog) 16 unit SC BID [facility] Last Admin: 08/20/17 09:41 Dose: Not Given Insulin Glargine (Lantus) 16 unit SC HS [facility] Last Admin: 08/19/17 21:32 Dose: Not Given Insulin Human Regular (Novolin R) 0 unit SC ACHS [facility] PRN Reason: Protocol Last Admin: 08/20/17 07:42 Dose: Not Given Labetalol HCl (Normodyne) 300 mg PO Q8H [facility] Last Admin: 08/20/17 08:22 Dose: Not Given Lamivudine (Epivir) 100 mg PO Q24H [facility] PRN Reason: Protocol Stop: 09/02/17 13:01 Last Admin: 08/19/17 12:58 Dose: 100 mg Ondansetron HCl (Zofran Inj) 4 mg IVP Q6H PRN PRN Reason: Nausea/Vomiting Last Admin: 08/19/17 22:06 Dose: 4 mg Oxycodone HCl (Oxycodone Immediate Release Tab) 30 mg PO Q4H PRN PRN Reason: Pain, moderate (4-7) Last Admin: 08/20/17 05:53 Dose: 30 mg Saccharomyces Boulardii (Florastor) 250 mg PO BID [facility] Last Admin: 08/20/17 09:40 Dose: 250 mg Sertraline HCl (Zoloft) 50 mg PO DAILY [facility] Last Admin: 08/20/17 09:40 Dose: 50 mg Sevelamer Carbonate (Renvela) 800 mg PO TIDCC [facility] Last Admin: 08/20/17 07:47 Dose: 800 mg Vitamin B Complex/Vit C/Folic Acid (Nephro-Rosario) 1 tab PO 0800 [facility] Last Admin: 08/20/17 07:47 Dose: 1 tab - Labs Labs: 08/20/17 07:04 08/20/17 07:04 PT 14.4 SECONDS (9.7-12.2) H 08/05/17 14:01 INR 1.3 08/05/17 14:01 APTT 34 SECONDS (21-34) 08/05/17 14:01
--- NOTE | 2017-08-20 11:06 | CP.PCM.PN ---
<Mamadou Tabares - Last Filed: 08/20/17 13:01> Subjective - Date & Time of Evaluation Date of Evaluation: 08/20/17 Time of Evaluation: 12:15 - Subjective Subjective: Hematology-Oncology Note- Dr. Mcfarlane's service Patient seen and examined in no apparent acute distress. Patient inquired about medical treatment course on a prior admission. Patient irritable. No other complaints Objective - Vital Signs/Intake and Output Vital Signs (last 24 hours): Temp Pulse Resp BP Pulse Ox 99.1 F 107 H 20 115/60 100 08/20/17 07:00 08/20/17 07:07 08/20/17 07:00 08/20/17 07:00 08/20/17 07:00 Intake and Output: 08/20/17 08/20/17 06:59 18:59 Intake Total 300 Output Total 550 Balance -250 - Medications Medications: Current Medications Abacavir Sulfate (Ziagen) 300 mg PO BID [facility] PRN Reason: Protocol Stop: 09/03/19 10:00 Last Admin: 08/20/17 09:40 Dose: 300 mg Amlodipine Besylate (Norvasc) 10 mg PO DAILY [facility] Last Admin: 08/20/17 09:40 Dose: 10 mg Calcitriol (Rocaltrol) 0.25 mcg PO TTS [facility] Last Admin: 08/19/17 10:26 Dose: 0.25 mcg Diphenhydramine HCl (Benadryl) 50 mg IVP Q6H PRN PRN Reason: Insomnia Last Admin: 08/20/17 07:47 Dose: 50 mg Dolutegravir Sodium (Tivicay) 50 mg PO DAILY [facility] PRN Reason: Protocol Last Admin: 08/20/17 09:40 Dose: 50 mg Epoetin Anival (Procrit) 20,000 unit SC TTS [facility] Last Admin: 08/19/17 10:26 Dose: 20,000 unit Cefepime HCl 1 gm/ Dextrose 50 mls @ 100 mls/hr IVPB DAILY [facility] PRN Reason: Protocol Last Admin: 08/15/17 09:48 Dose: 100 mls/hr Daptomycin 500 mg/ Sodium (Chloride) 100 mls @ 100 mls/hr IV Q48H [facility] PRN Reason: Protocol Stop: 08/21/17 12:46 Last Admin: 08/18/17 13:45 Dose: 100 mls/hr Insulin Aspart (Novolog) 16 unit SC BID [facility] Last Admin: 08/20/17 09:41 Dose: Not Given Insulin Glargine (Lantus) 16 unit SC HS [facility] Last Admin: 08/19/17 21:32 Dose: Not Given Insulin Human Regular (Novolin R) 0 unit SC ACHS [facility] PRN Reason: Protocol Last Admin: 08/20/17 07:42 Dose: Not Given Labetalol HCl (Normodyne) 300 mg PO Q8H [facility] Last Admin: 08/20/17 08:22 Dose: Not Given Lamivudine (Epivir) 100 mg PO Q24H [facility] PRN Reason: Protocol Stop: 09/02/17 13:01 Last Admin: 08/19/17 12:58 Dose: 100 mg Ondansetron HCl (Zofran Inj) 4 mg IVP Q6H PRN PRN Reason: Nausea/Vomiting Last Admin: 08/19/17 22:06 Dose: 4 mg Oxycodone HCl (Oxycodone Immediate Release Tab) 30 mg PO Q4H PRN PRN Reason: Pain, moderate (4-7) Last Admin: 08/20/17 05:53 Dose: 30 mg Saccharomyces Boulardii (Florastor) 250 mg PO BID [facility] Last Admin: 08/20/17 09:40 Dose: 250 mg Sertraline HCl (Zoloft) 50 mg PO DAILY [facility] Last Admin: 08/20/17 09:40 Dose: 50 mg Sevelamer Carbonate (Renvela) 800 mg PO TIDCC [facility] Last Admin: 08/20/17 07:47 Dose: 800 mg Vitamin B Complex/Vit C/Folic Acid (Nephro-Rosario) 1 tab PO 0800 [facility] Last Admin: 08/20/17 07:47 Dose: 1 tab - Labs Labs: 08/20/17 07:04 08/20/17 07:04 PT 14.4 SECONDS (9.7-12.2) H 08/05/17 14:01 INR 1.3 08/05/17 14:01 APTT 34 SECONDS (21-34) 08/05/17 14:01 - Constitutional Appears: Non-toxic, No Acute Distress - Head Exam Head Exam: ATRAUMATIC - Eye Exam Eye Exam: EOMI - ENT Exam ENT Exam: Mucous Membranes Moist - Neck Exam Neck Exam: Full ROM - Respiratory Exam Respiratory Exam: NORMAL BREATHING PATTERN - Cardiovascular Exam Cardiovascular Exam: +S1, +S2 - Extremities Exam Additional comments: amputation noted - Neurological Exam Neurological Exam: Alert, Awake, Oriented x3 - Skin Skin Exam: Dry Assessment and Plan - Assessment and Plan (Free Text) Assessment: Anemia Assessment & Plan: Hgb decreased today but stable- Limit repeated transfusion. Monitor Hgb Anemia of multifactorial etiology secondarily due to osteomyelitis, CKD and HIV on Epo to limit transfusion therapy- Monitor- may need dose adjustment Status: Acute Monoclonal gammopathy Assessment & Plan: Positive monoclonal protein detected in urine abnormal free light chain ratio Skeletal survey warranted to evaluate for lytic lesions- Patient hesitant at this time. Considerations for possible bone marrow or kidney biopsy; Patient is refusing at this time. Amenable to a later date Status: Acute <Joesph Mcfarlane - Last Filed: 08/20/17 22:59> Objective - Vital Signs/Intake and Output Vital Signs (last 24 hours): Temp Pulse Resp BP Pulse Ox 98.7 F 107 H 20 127/75 100 08/20/17 17:59 08/20/17 17:59 08/20/17 17:59 08/20/17 17:59 08/20/17 07:00 Intake and Output: 08/20/17 08/21/17 18:59 06:59 Intake Total 1085 925 Balance 1085 925 - Medications Medications: Current Medications Abacavir Sulfate (Ziagen) 300 mg PO BID [facility] PRN Reason: Protocol Stop: 09/03/19 10:00 Last Admin: 08/20/17 17:19 Dose: 300 mg Amlodipine Besylate (Norvasc) 10 mg PO DAILY [facility] Last Admin: 08/20/17 09:40 Dose: 10 mg Calcitriol (Rocaltrol) 0.25 mcg PO TTS [facility] Last Admin: 08/19/17 10:26 Dose: 0.25 mcg Diphenhydramine HCl (Benadryl) 50 mg IVP Q6H PRN PRN Reason: Insomnia Last Admin: 08/20/17 14:00 Dose: 50 mg Dolutegravir Sodium (Tivicay) 50 mg PO DAILY [facility] PRN Reason: Protocol Last Admin: 08/20/17 09:40 Dose: 50 mg Epoetin Anival (Procrit) 20,000 unit SC TTS [facility] Last Admin: 08/19/17 10:26 Dose: 20,000 unit Cefepime HCl 1 gm/ Dextrose 50 mls @ 100 mls/hr IVPB DAILY [facility] PRN Reason: Protocol Last Admin: 08/15/17 09:48 Dose: 100 mls/hr Daptomycin 500 mg/ Sodium (Chloride) 100 mls @ 100 mls/hr IV Q48H [facility] PRN Reason: Protocol Stop: 08/21/17 12:46 Last Admin: 08/20/17 18:07 Dose: 100 mls/hr Insulin Aspart (Novolog) 16 unit SC BID [facility] Last Admin: 08/20/17 17:10 Dose: Not Given Insulin Glargine (Lantus) 16 unit SC HS [facility] Last Admin: 08/20/17 21:14 Dose: Not Given Insulin Human Regular (Novolin R) 0 unit SC ACHS [facility] PRN Reason: Protocol Last Admin: 08/20/17 21:13 Dose: Not Given Labetalol HCl (Normodyne) 300 mg PO Q8H [facility] Last Admin: 08/20/17 16:11 Dose: Not Given Lamivudine (Epivir) 100 mg PO Q24H [facility] PRN Reason: Protocol Stop: 09/02/17 13:01 Last Admin: 08/20/17 14:00 Dose: 100 mg Ondansetron HCl (Zofran Inj) 4 mg IVP Q6H PRN PRN Reason: Nausea/Vomiting Last Admin: 08/19/17 22:06 Dose: 4 mg Oxycodone HCl (Oxycodone Immediate Release Tab) 30 mg PO Q4H PRN PRN Reason: Pain, moderate (4-7) Last Admin: 08/20/17 19:21 Dose: 30 mg Saccharomyces Boulardii (Florastor) 250 mg PO BID [facility] Last Admin: 08/20/17 17:19 Dose: 250 mg Sertraline HCl (Zoloft) 50 mg PO DAILY [facility] Last Admin: 08/20/17 09:40 Dose: 50 mg Sevelamer Carbonate (Renvela) 800 mg PO TIDCC [facility] Last Admin: 08/20/17 17:20 Dose: 800 mg Vitamin B Complex/Vit C/Folic Acid (Nephro-Rosario) 1 tab PO 0800 [facility] Last Admin: 08/20/17 07:47 Dose: 1 tab - Labs Labs: 08/20/17 07:04 08/20/17 07:04 PT 14.4 SECONDS (9.7-12.2) H 08/05/17 14:01 INR 1.3 08/05/17 14:01 APTT 34 SECONDS (21-34) 08/05/17 14:01 Assessment and Plan (1) Anemia Status: Acute (2) Monoclonal gammopathy Status: Acute - Assessment and Plan (Free Text) Assessment: Pt seen and examined, agree with residents note. Pt agreeable to HD, cont. EPO supplementation and transfusion support PRN.
--- NOTE | 2017-08-20 11:22 | CP.PCM.PN ---
Subjective - Date & Time of Evaluation Date of Evaluation: 08/20/17 Time of Evaluation: 11:19 - Subjective Subjective: Podiatry Progress note for Dr. Coy 36 year old female seen at bedside today 13 days s/p L foot Chopart's amputation (DOS 08/06/17). Patient resting in bed comfortably, NAD. AAOx3. Reports mild pain at amputation site however well-controlled. States she has been ambulating minimally and believes her LLE is more swollen due to increased weight bearing. Dressing to left foot remains clean/dry/intact. Denies N/V/F/D/C/SOB today. Objective - Vital Signs/Intake and Output Vital Signs (last 24 hours): Temp Pulse Resp BP Pulse Ox 99.1 F 107 H 20 115/60 100 08/20/17 07:00 08/20/17 07:07 08/20/17 07:00 08/20/17 07:00 08/20/17 07:00 Intake and Output: 08/20/17 08/20/17 06:59 18:59 Intake Total 300 Output Total 550 Balance -250 - Medications Medications: Current Medications Abacavir Sulfate (Ziagen) 300 mg PO BID [facility] PRN Reason: Protocol Stop: 09/03/19 10:00 Last Admin: 08/20/17 09:40 Dose: 300 mg Amlodipine Besylate (Norvasc) 10 mg PO DAILY [facility] Last Admin: 08/20/17 09:40 Dose: 10 mg Calcitriol (Rocaltrol) 0.25 mcg PO TTS [facility] Last Admin: 08/19/17 10:26 Dose: 0.25 mcg Diphenhydramine HCl (Benadryl) 50 mg IVP Q6H PRN PRN Reason: Insomnia Last Admin: 08/20/17 07:47 Dose: 50 mg Dolutegravir Sodium (Tivicay) 50 mg PO DAILY [facility] PRN Reason: Protocol Last Admin: 08/20/17 09:40 Dose: 50 mg Epoetin Anival (Procrit) 20,000 unit SC TTS [facility] Last Admin: 08/19/17 10:26 Dose: 20,000 unit Cefepime HCl 1 gm/ Dextrose 50 mls @ 100 mls/hr IVPB DAILY [facility] PRN Reason: Protocol Last Admin: 08/15/17 09:48 Dose: 100 mls/hr Daptomycin 500 mg/ Sodium (Chloride) 100 mls @ 100 mls/hr IV Q48H [facility] PRN Reason: Protocol Stop: 08/21/17 12:46 Last Admin: 08/18/17 13:45 Dose: 100 mls/hr Insulin Aspart (Novolog) 16 unit SC BID [facility] Last Admin: 08/20/17 09:41 Dose: Not Given Insulin Glargine (Lantus) 16 unit SC HS [facility] Last Admin: 08/19/17 21:32 Dose: Not Given Insulin Human Regular (Novolin R) 0 unit SC ACHS [facility] PRN Reason: Protocol Last Admin: 08/20/17 07:42 Dose: Not Given Labetalol HCl (Normodyne) 300 mg PO Q8H [facility] Last Admin: 08/20/17 08:22 Dose: Not Given Lamivudine (Epivir) 100 mg PO Q24H [facility] PRN Reason: Protocol Stop: 09/02/17 13:01 Last Admin: 08/19/17 12:58 Dose: 100 mg Ondansetron HCl (Zofran Inj) 4 mg IVP Q6H PRN PRN Reason: Nausea/Vomiting Last Admin: 08/19/17 22:06 Dose: 4 mg Oxycodone HCl (Oxycodone Immediate Release Tab) 30 mg PO Q4H PRN PRN Reason: Pain, moderate (4-7) Last Admin: 08/20/17 05:53 Dose: 30 mg Saccharomyces Boulardii (Florastor) 250 mg PO BID [facility] Last Admin: 08/20/17 09:40 Dose: 250 mg Sertraline HCl (Zoloft) 50 mg PO DAILY [facility] Last Admin: 08/20/17 09:40 Dose: 50 mg Sevelamer Carbonate (Renvela) 800 mg PO TIDCC [facility] Last Admin: 08/20/17 07:47 Dose: 800 mg Vitamin B Complex/Vit C/Folic Acid (Nephro-Rosario) 1 tab PO 0800 [facility] Last Admin: 08/20/17 07:47 Dose: 1 tab - Labs Labs: 08/20/17 07:04 08/20/17 07:04 PT 14.4 SECONDS (9.7-12.2) H 08/05/17 14:01 INR 1.3 08/05/17 14:01 APTT 34 SECONDS (21-34) 08/05/17 14:01 - Constitutional Appears: Well, Non-toxic, No Acute Distress - Head Exam Head Exam: ATRAUMATIC - Extremities Exam Additional comments: Left Lower Extremity exam: dressing appears c/d/i with no strikethrough evident VASC- DP pulse faintly palpable, skin temp runs warm to warm, nonpitting edema noted to left leg extending from knee joint distally into stump DERM- surgical site remains intact with surgical site well coapted along medial aspect with no evidence of wound dehiscence, plantarlateral surgical site appears macerated with gross lichenification of pedal skin; the lateral distal stump site has a circular opening which measures approx 2 cm x 2 cm which appears to be granulating inwards, mild amount of serosanginous drainage noted from wound, moderate malodor present NEURO- gross and protective pedal sensation are diminished ORTHO- minimal tenderness noted to palpation of the surgical site laterally and plantarly - Neurological Exam Neurological Exam: Alert, Awake, Oriented x3 - Psychiatric Exam Psychiatric exam: Normal Affect, Normal Mood - Skin Skin Exam: Normal Color Assessment and Plan - Assessment and Plan (Free Text) Assessment: 36 year old female patient seen 13 days s/p Chopart's amputation (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 Coy Labs and vitals reviewed - temp:100.5, WBC 11.8 Continue local wound care - saline cleanse, betadine soaked gauze, ABD, kerlix, coban Intra-op wound cultures: Coagulase Neg Staph c/w IV abx as per ID Dr. Del Valle Continue pain mgt per primary team Patient may be PWB to left heel in surgical shoe with the assistance of a walker Podiatry will continue to follow
--- NOTE | 2017-08-20 13:57 | CP.PCM.PN ---
Subjective - Date & Time of Evaluation Date of Evaluation: 08/20/17 Time of Evaluation: 13:54 - Subjective Subjective: CONDITION REMAINS SAME. FEBRILE. BUN 93/CREA 8.3 UN COOPERATIVE, ANEMIC. REFUSES DIALYSIS. Objective - Vital Signs/Intake and Output Vital Signs (last 24 hours): Temp Pulse Resp BP Pulse Ox 99.1 F 107 H 20 115/60 100 08/20/17 07:00 08/20/17 07:07 08/20/17 07:00 08/20/17 07:00 08/20/17 07:00 Intake and Output: 08/20/17 08/20/17 06:59 18:59 Intake Total 300 Output Total 550 Balance -250 - Medications Medications: Current Medications Abacavir Sulfate (Ziagen) 300 mg PO BID [facility] PRN Reason: Protocol Stop: 09/03/19 10:00 Last Admin: 08/20/17 09:40 Dose: 300 mg Amlodipine Besylate (Norvasc) 10 mg PO DAILY [facility] Last Admin: 08/20/17 09:40 Dose: 10 mg Calcitriol (Rocaltrol) 0.25 mcg PO TTS [facility] Last Admin: 08/19/17 10:26 Dose: 0.25 mcg Diphenhydramine HCl (Benadryl) 50 mg IVP Q6H PRN PRN Reason: Insomnia Last Admin: 08/20/17 07:47 Dose: 50 mg Dolutegravir Sodium (Tivicay) 50 mg PO DAILY [facility] PRN Reason: Protocol Last Admin: 08/20/17 09:40 Dose: 50 mg Epoetin Anival (Procrit) 20,000 unit SC TTS [facility] Last Admin: 08/19/17 10:26 Dose: 20,000 unit Cefepime HCl 1 gm/ Dextrose 50 mls @ 100 mls/hr IVPB DAILY [facility] PRN Reason: Protocol Last Admin: 08/15/17 09:48 Dose: 100 mls/hr Daptomycin 500 mg/ Sodium (Chloride) 100 mls @ 100 mls/hr IV Q48H [facility] PRN Reason: Protocol Stop: 08/21/17 12:46 Last Admin: 08/18/17 13:45 Dose: 100 mls/hr Insulin Aspart (Novolog) 16 unit SC BID [facility] Last Admin: 08/20/17 09:41 Dose: Not Given Insulin Glargine (Lantus) 16 unit SC HS [facility] Last Admin: 08/19/17 21:32 Dose: Not Given Insulin Human Regular (Novolin R) 0 unit SC ACHS [facility] PRN Reason: Protocol Last Admin: 08/20/17 07:42 Dose: Not Given Labetalol HCl (Normodyne) 300 mg PO Q8H [facility] Last Admin: 08/20/17 08:22 Dose: Not Given Lamivudine (Epivir) 100 mg PO Q24H [facility] PRN Reason: Protocol Stop: 09/02/17 13:01 Last Admin: 08/19/17 12:58 Dose: 100 mg Ondansetron HCl (Zofran Inj) 4 mg IVP Q6H PRN PRN Reason: Nausea/Vomiting Last Admin: 08/19/17 22:06 Dose: 4 mg Oxycodone HCl (Oxycodone Immediate Release Tab) 30 mg PO Q4H PRN PRN Reason: Pain, moderate (4-7) Last Admin: 08/20/17 05:53 Dose: 30 mg Saccharomyces Boulardii (Florastor) 250 mg PO BID [facility] Last Admin: 08/20/17 09:40 Dose: 250 mg Sertraline HCl (Zoloft) 50 mg PO DAILY [facility] Last Admin: 08/20/17 09:40 Dose: 50 mg Sevelamer Carbonate (Renvela) 800 mg PO TIDCC [facility] Last Admin: 08/20/17 07:47 Dose: 800 mg Vitamin B Complex/Vit C/Folic Acid (Nephro-Rosario) 1 tab PO 0800 [facility] Last Admin: 08/20/17 07:47 Dose: 1 tab - Labs Labs: 08/20/17 07:04 08/20/17 07:04 PT 14.4 SECONDS (9.7-12.2) H 08/05/17 14:01 INR 1.3 08/05/17 14:01 APTT 34 SECONDS (21-34) 08/05/17 14:01 - Constitutional Appears: No Acute Distress, Chronically Ill - Eye Exam Eye Exam: EOMI, Normal appearance, PERRL Pupil Exam: NORMAL ACCOMODATION, PERRL - ENT Exam ENT Exam: Mucous Membranes Moist, Normal Exam - Neck Exam Neck Exam: Full ROM, Normal Inspection. absent: Lymphadenopathy - Respiratory Exam Respiratory Exam: Clear to Ausculation Bilateral, NORMAL BREATHING PATTERN - Cardiovascular Exam Cardiovascular Exam: REGULAR RHYTHM, +S1, +S2. absent: Murmur - GI/Abdominal Exam GI & Abdominal Exam: Soft, Normal Bowel Sounds. absent: Tenderness - Extremities Exam Extremities Exam: Full ROM, Normal Capillary Refill, Normal Inspection. absent : Joint Swelling, Pedal Edema - Back Exam Back Exam: NORMAL INSPECTION - Neurological Exam Neurological Exam: Alert, Awake, CN II-XII Intact, Normal Gait, Oriented x3 - Psychiatric Exam Psychiatric exam: Normal Affect, Normal Mood Assessment and Plan - Assessment and Plan (Free Text) Assessment: SAME. Plan: CT PRESENT TREATMENT.
[2017-08-20] MEDS: LamiVUDine 10 mg/ml Syringe PO SCH (14:00)
--- NOTE | 2017-08-20 14:13 | CP.PCM.CON ---
History of Present Illness - History of Present Illness History of Present Illness: Vascular Consult For Dr. Laura This is a 36 transgender female genetic male who presented in july with a lower extremity infection since that time her renal function has declined. Our service has been consulted for a temporary non tunneled dialysis catheter. The patient has no visceral complaints at this time. Patient reports she is only willing to make a decision about wether or not she is willing to have a dialysis catheter placed on wednesday. She also reports she is only willing to have it done if she is under complete sedation or general anesthesia. When discussing the different methods of reciving dialysis she reports she would rather have a tunneled cather placed due to its slighly longer term durability in the face of infection risks. PMH: ESRD DM, DVT, HTN, HIV, recurrent Osteo PSH: Removal of 3rd-5th metatarsal bones due to osteo, IVC filter All: Tylenol, ASA, Dilaudid, toradol Soc: Smoke tobacco, and marijuana, denies etoh or other drugs Review of Systems - Review of Systems All systems: reviewed and no additional remarkable complaints except Past Patient History - Infectious Disease Hx of Infectious Diseases: None - Past Medical History & Family History Past Medical History?: Yes - Past Social History Smoking Status: cigars - CARDIAC Hx Hypertension: Yes - PULMONARY Hx Respiratory Disorders: No - NEUROLOGICAL Hx Neurological Disorder: No - HEENT Hx HEENT Problems: No - RENAL Hx Chronic Kidney Disease: No - HEMATOLOGICAL/ONCOLOGICAL Hx Human Immunodeficiency Virus (HIV): Yes - INTEGUMENTARY Hx Dermatological Problems: Yes Other/Comment: ULCER BOTTOM LEFT FOOT LEFT FOOT SUTURE LINES TOES - MUSCULOSKELETAL/RHEUMATOLOGICAL Hx Musculoskeletal Disorders: Yes Hx Falls: Yes Hx Osteomyelitis: Yes (LEFT FOOT, receiving daily infusion) - GASTROINTESTINAL Hx Gastrointestinal Disorders: No - GENITOURINARY/GYNECOLOGICAL Hx Genitourinary Disorders: No - PSYCHIATRIC Hx Depression: Yes Hx Substance Use: Yes (OCCASIONALLY) - ANESTHESIA Hx Anesthesia: Yes Hx Anesthesia Reactions: No (unknown) Meds Home Medications: Home Medication List Medication Instructions Recorded Confirmed Type Cefepime [Maxipime] 1 gm IVPB DAILY 28 Days vial 08/13/17 Rx Vancomycin 1 GM [Vancomycin 1GM in 1 gm IVPB Q48H 28 Days bag 08/13/17 Rx Normal Saline Addvantage] Allergies/Adverse Reactions: Allergies Allergy/AdvReac Type Severity Reaction Status Date / Time acetaminophen [From Tylenol] Allergy RASH Verified 07/30/17 16:06 aspirin Allergy RASH Verified 07/30/17 16:06 hydromorphone [From Dilaudid] Allergy Verified 07/30/17 16:06 ketorolac tromethamine Allergy RASH Verified 07/30/17 16:06 [From Toradol] meperidine HCl [From Demerol] Allergy RASH Verified 07/30/17 16:06 oxycodone HCl [From Percocet] Allergy RASH Verified 07/30/17 16:06 peas Allergy ANAPHYLAXIS Verified 07/30/17 16:06 propoxyphene napsylate Allergy RASH Verified 07/30/17 16:06 [From Darvocet-N] - Medications Medications: Current Medications Abacavir Sulfate (Ziagen) 300 mg PO BID [facility] PRN Reason: Protocol Stop: 09/03/19 10:00 Last Admin: 08/20/17 09:40 Dose: 300 mg Amlodipine Besylate (Norvasc) 10 mg PO DAILY [facility] Last Admin: 08/20/17 09:40 Dose: 10 mg Calcitriol (Rocaltrol) 0.25 mcg PO TTS [facility] Last Admin: 08/19/17 10:26 Dose: 0.25 mcg Diphenhydramine HCl (Benadryl) 50 mg IVP Q6H PRN PRN Reason: Insomnia Last Admin: 08/20/17 14:00 Dose: 50 mg Dolutegravir Sodium (Tivicay) 50 mg PO DAILY [facility] PRN Reason: Protocol Last Admin: 08/20/17 09:40 Dose: 50 mg Epoetin Anival (Procrit) 20,000 unit SC TTS [facility] Last Admin: 08/19/17 10:26 Dose: 20,000 unit Cefepime HCl 1 gm/ Dextrose 50 mls @ 100 mls/hr IVPB DAILY [facility] PRN Reason: Protocol Last Admin: 08/15/17 09:48 Dose: 100 mls/hr Daptomycin 500 mg/ Sodium (Chloride) 100 mls @ 100 mls/hr IV Q48H [facility] PRN Reason: Protocol Stop: 08/21/17 12:46 Last Admin: 08/18/17 13:45 Dose: 100 mls/hr Insulin Aspart (Novolog) 16 unit SC BID [facility] Last Admin: 08/20/17 09:41 Dose: Not Given Insulin Glargine (Lantus) 16 unit SC HS [facility] Last Admin: 08/19/17 21:32 Dose: Not Given Insulin Human Regular (Novolin R) 0 unit SC ACHS [facility] PRN Reason: Protocol Last Admin: 08/20/17 14:01 Dose: Not Given Labetalol HCl (Normodyne) 300 mg PO Q8H [facility] Last Admin: 08/20/17 08:22 Dose: Not Given Lamivudine (Epivir) 100 mg PO Q24H [facility] PRN Reason: Protocol Stop: 09/02/17 13:01 Last Admin: 08/20/17 14:00 Dose: 100 mg Ondansetron HCl (Zofran Inj) 4 mg IVP Q6H PRN PRN Reason: Nausea/Vomiting Last Admin: 08/19/17 22:06 Dose: 4 mg Oxycodone HCl (Oxycodone Immediate Release Tab) 30 mg PO Q4H PRN PRN Reason: Pain, moderate (4-7) Last Admin: 08/20/17 14:00 Dose: 30 mg Saccharomyces Boulardii (Florastor) 250 mg PO BID [facility] Last Admin: 08/20/17 09:40 Dose: 250 mg Sertraline HCl (Zoloft) 50 mg PO DAILY [facility] Last Admin: 08/20/17 09:40 Dose: 50 mg Sevelamer Carbonate (Renvela) 800 mg PO TIDCC [facility] Last Admin: 08/20/17 13:59 Dose: 800 mg Vitamin B Complex/Vit C/Folic Acid (Nephro-Rosario) 1 tab PO 0800 [facility] Last Admin: 08/20/17 07:47 Dose: 1 tab Physical Exam - Constitutional Appears: Non-toxic, No Acute Distress - Head Exam Head Exam: ATRAUMATIC, NORMOCEPHALIC - ENT Exam ENT Exam: Mucous Membranes Moist - Respiratory Exam Respiratory Exam: NORMAL BREATHING PATTERN - Cardiovascular Exam Cardiovascular Exam: +S1, +S2 Results - Vital Signs Recent Vital Signs: Last Vital Signs Temp 99.1 F 08/20/17 07:00 Pulse 107 H 08/20/17 07:07 Resp 20 08/20/17 07:00 BP 115/60 08/20/17 07:00 Pulse Ox 100 08/20/17 07:00 - Labs Result Diagrams: 08/21/17 13:58 08/21/17 13:58 Labs: Laboratory Results - last 24 hr 08/19/17 08/19/17 08/20/17 16:58 21:24 06:27 WBC RBC Hgb Hct MCV MCH MCHC RDW Plt Count MPV Sodium Potassium Chloride Carbon Dioxide Anion Gap BUN Creatinine Est GFR ( Amer) Est GFR (Non-Af Amer) POC Glucose (mg/dL) 124 H 86 89 Random Glucose Calcium Phosphorus Blood Type Antibody Screen 08/20/17 08/20/17 08/20/17 07:04 07:04 09:45 WBC 11.8 H RBC 2.55 L Hgb 7.4 L Hct 22.4 L MCV 87.9 MCH 29.1 MCHC 33.1 RDW 17.4 H Plt Count 443 H MPV 6.9 L Sodium 136 Potassium 5.0 Chloride 102 Carbon Dioxide 21 L Anion Gap 18 BUN 93 H Creatinine 8.4 H* Est GFR ( Amer) 6 Est GFR (Non-Af Amer) 5 POC Glucose (mg/dL) Random Glucose 74 Calcium 9.1 Phosphorus 6.9 H Blood Type AB POSITIVE Antibody Screen Negative 08/20/17 11:44 WBC RBC Hgb Hct MCV MCH MCHC RDW Plt Count MPV Sodium Potassium Chloride Carbon Dioxide Anion Gap BUN Creatinine Est GFR ( Amer) Est GFR (Non-Af Amer) POC Glucose (mg/dL) 109 Random Glucose Calcium Phosphorus Blood Type Antibody Screen Assessment & Plan - Assessment and Plan (Free Text) Assessment: 36F with ESRD Permacath wednesday D/W Dr. Keya Ayala PGY2
[2017-08-20] MEDS: DAPTOmycin 500 MG in Sodium Chloride 0.9% 100 ML IV SCH (18:07)
--- NOTE | 2017-08-20 20:42 | CP.PCM.PN ---
Subjective - Date & Time of Evaluation Date of Evaluation: 08/20/17 Time of Evaluation: 08:00 - Subjective Subjective: long discussion held with Ms Johnson concerning risks/ benefits of HD renal failure likely multifactorial in nature- likely worsened by infection IV antibiotics and antivirals renewed foot stable for now prognosis for limb salvage guarded Objective - Vital Signs/Intake and Output Vital Signs (last 24 hours): Temp Pulse Resp BP Pulse Ox 98.7 F 107 H 20 127/75 100 08/20/17 17:59 08/20/17 17:59 08/20/17 17:59 08/20/17 17:59 08/20/17 07:00 Intake and Output: 08/20/17 08/21/17 18:59 06:59 Intake Total 1085 Balance 1085 - Medications Medications: Current Medications Abacavir Sulfate (Ziagen) 300 mg PO BID [facility] PRN Reason: Protocol Stop: 09/03/19 10:00 Last Admin: 08/20/17 17:19 Dose: 300 mg Amlodipine Besylate (Norvasc) 10 mg PO DAILY [facility] Last Admin: 08/20/17 09:40 Dose: 10 mg Calcitriol (Rocaltrol) 0.25 mcg PO TTS [facility] Last Admin: 08/19/17 10:26 Dose: 0.25 mcg Diphenhydramine HCl (Benadryl) 50 mg IVP Q6H PRN PRN Reason: Insomnia Last Admin: 08/20/17 14:00 Dose: 50 mg Dolutegravir Sodium (Tivicay) 50 mg PO DAILY [facility] PRN Reason: Protocol Last Admin: 08/20/17 09:40 Dose: 50 mg Epoetin Anival (Procrit) 20,000 unit SC TTS [facility] Last Admin: 08/19/17 10:26 Dose: 20,000 unit Cefepime HCl 1 gm/ Dextrose 50 mls @ 100 mls/hr IVPB DAILY [facility] PRN Reason: Protocol Last Admin: 08/15/17 09:48 Dose: 100 mls/hr Daptomycin 500 mg/ Sodium (Chloride) 100 mls @ 100 mls/hr IV Q48H [facility] PRN Reason: Protocol Stop: 08/21/17 12:46 Last Admin: 08/20/17 18:07 Dose: 100 mls/hr Insulin Aspart (Novolog) 16 unit SC BID [facility] Last Admin: 08/20/17 17:10 Dose: Not Given Insulin Glargine (Lantus) 16 unit SC HS [facility] Last Admin: 08/19/17 21:32 Dose: Not Given Insulin Human Regular (Novolin R) 0 unit SC ACHS [facility] PRN Reason: Protocol Last Admin: 08/20/17 17:10 Dose: Not Given Labetalol HCl (Normodyne) 300 mg PO Q8H [facility] Last Admin: 08/20/17 16:11 Dose: Not Given Lamivudine (Epivir) 100 mg PO Q24H [facility] PRN Reason: Protocol Stop: 09/02/17 13:01 Last Admin: 08/20/17 14:00 Dose: 100 mg Ondansetron HCl (Zofran Inj) 4 mg IVP Q6H PRN PRN Reason: Nausea/Vomiting Last Admin: 08/19/17 22:06 Dose: 4 mg Oxycodone HCl (Oxycodone Immediate Release Tab) 30 mg PO Q4H PRN PRN Reason: Pain, moderate (4-7) Last Admin: 08/20/17 19:21 Dose: 30 mg Saccharomyces Boulardii (Florastor) 250 mg PO BID [facility] Last Admin: 08/20/17 17:19 Dose: 250 mg Sertraline HCl (Zoloft) 50 mg PO DAILY [facility] Last Admin: 08/20/17 09:40 Dose: 50 mg Sevelamer Carbonate (Renvela) 800 mg PO TIDCC [facility] Last Admin: 08/20/17 17:20 Dose: 800 mg Vitamin B Complex/Vit C/Folic Acid (Nephro-Rosario) 1 tab PO 0800 [facility] Last Admin: 08/20/17 07:47 Dose: 1 tab - Labs Labs: 08/20/17 07:04 08/20/17 07:04 PT 14.4 SECONDS (9.7-12.2) H 08/05/17 14:01 INR 1.3 08/05/17 14:01 APTT 34 SECONDS (21-34) 08/05/17 14:01 Assessment and Plan (1) Anemia Status: Acute (2) Chronic ulcer of left leg Status: Chronic (3) HIV disease Status: Chronic (4) GAEL (acute kidney injury) Status: Acute (5) Abscess and cellulitis Status: Acute
[2017-08-20] MEDS: (Lantus) Insulin Glargine, Recombinant SC SCH (21:14)
[2017-08-21] MEDS: DiphenhydrAMINE 50 mg/ml Inj IVP PRN ×2 (00:17→05:52)
[2017-08-21] MEDS: oxyCODONE 30 mg Immediate Release Tab PO PRN ×2 (00:17→05:52)
[2017-08-21] MEDS: Labetalol Hydrochloride 300 mg Tab PO SCH ×3 (00:17→17:01)
--- NOTE | 2017-08-21 01:58 | PN ---
DATE: 08/20/2017 FOLLOWUP RENAL CONSULTATION LOCATION: Room 570, bed A. REQUESTED BY: Dr. Art Nathan. REASON FOR FOLLOWUP: Acute renal failure for further evaluation. SUBJECTIVE: Mrs. Johnson is a 36 years old young transgender female with a past medical history significant for hypertension, diabetes, HIV positive, nephrotic range proteinuria, chronic kidney disease stage 4, Charcot's foot, osteomyelitis of the left foot status post transmetatarsal amputation of the left foot who is being treated for osteomyelitis with IV antibiotics, cefepime and vancomycin. Her creatinine went up to over 4.2 and after amputation her creatinine starts improving slowly to 3.5 and after few days her creatinine again was 3.8 on 08/14/2017 and after 2 days on 08/16/2017, creatinine jumped to 5.8 and 08/17/2017 creatinine went up to 6.4 on 08/18/2017 creatinine went up to 7.6 on 08/19/2017 creatinine was 7.9 and today creatinine went up to 8.4. The patient is not in acute distress. Denies any chest pain or palpitation. Denies any shortness of breath. No nausea, vomiting, diarrhea. PHYSICAL EXAMINATION: VITAL SIGNS: This morning, blood pressure 144/74, pulse 112, respirations 20, temperature 99.1. GENERAL: Mrs. Johnson is a 36 years old young transgender female with external appearance male. HEENT: Pupils normal, react to light and accommodation. Conjunctivae pink. Sclerae anicteric. Tongue is moist and trachea is midline. LUNGS: Symmetric on both sides. Bilateral breath sounds present. Clear to auscultation. CVS: S1 and S2 audible. No murmur or gallop. ABDOMEN: Normal in appearance, soft, tympanic. No guarding, no rigidity. No hepatosplenomegaly. FLUID DESIGNER: The patient is alert, awake, oriented x3. Nonfocal neuro examination. EXTREMITIES: No cyanosis, no clubbing, no edema on the right leg. The patient has swelling of the left leg below the knee joint and also the patient has a dressing to the left foot status post transmetatarsal amputation. CURRENT MEDICATIONS: Daptomycin 500 mg IV every 48 hours, Epivir 100 mg p.o. every 24 hours, Florastor 250 mg p.o. b.i.d., Lantus 60 units subcu at bedtime, Nephro-Rosario 1 tablet p.o., labetalol 300 mg p.o. every 8 hours, amlodipine 10 mg daily, Novolin R for sliding scale, NovoLog 16 units subcu b.i.d., oxycodone 30 mg p.o. every 4 hours, Procrit 20,000 units three times a week, Renvela 800 mg p.o. t.i.d., Rocaltrol 0.25 mcg p.o. three times a week, Tivicay 50 mg p.o. daily, abacavir 300 mg p.o. b.i.d., Zofran 4 mg IV every 6 hours, Zoloft 50 mg p.o. daily. LABORATORY DATA: WBC 11.8 today, hemoglobin 7.4, hematocrit is 22.4, platelets 443, sodium 136, potassium is 5, chloride 102, CO 21, BUN 93, creatinine 8.4, glucose 89 and calcium is 9.1, phosphorus 6.9. ASSESSMENT: In summary, Mrs. Johnson is a 36 years old young transgender female with hypertension, diabetes, nephrotic range proteinuria with worsening renal function. 1. Acute renal failure on chronic kidney disease stage 4, most likely secondary to acute interstitial nephritis, cannot rule out acute tubular necrosis. 2. Chronic kidney disease stage 4, most likely secondary to diabetic nephropathy, cannot rule out human immunodeficiency virus associated nephropathy, cannot rule out chronic glomerulonephritis such as focal segmental glomerulosclerosis secondary to obesity. 3. Anemia. Most likely multifactorial secondary to renal failure, iron deficiency and sepsis and human immunodeficiency virus, cannot rule out multiple myeloma. 4. Secondary hyperparathyroidism. Continue phosphate binders, Renvela and also continue calcitriol three times a week. Continue Nephro-Rosario and Procrit. PLAN: Discussed with the patient regarding the need for hemodialysis also present during the discussion was social services designee Theresa and also the patient's primary nurse and also unit leader John. The patient agrees for the hemodialysis and signed informed consent for the dialysis. The patient does not want dialysis today, the patient wants to have a dialysis sometime next week early Wednesday and also the patient has a special request the temporary catheter should be placed by the surgeon and also under sleep or sedation, she does not want to have any pain or she does not want to know while doing the procedure. Continue to monitor the electrolytes and requested Vascular Surgery consult for Jacques catheter placement under sedation. Follow up with Hematology for possible transfusion. Overall prognosis is guarded and also the patient was informed if she wants she can always request a second opinion regarding the hemodialysis. The patient is aware of the risk and benefits of the hemodialysis including different access for the hemodialysis and risk during hemodialysis, also including low blood pressure, cramps and seizures and blood loss. The patient signed informed consent for the dialysis. After Jacques catheter placement, we will plan for the dialysis. We will follow with you. Thank you for allowing me to participate in your patient's care. Weston rBambila MD
[2017-08-21 08:07] VITALS: TEMP 98.6
[2017-08-21] MEDS: (Novolin R) Insulin Human Regular 100 units/ml vial SC SCH ×3 (08:10→17:09)
[2017-08-21] MEDS: Multivitamin Vitamin B Complex (Nephro-Vite) Tab PO SCH (08:21)
--- NOTE | 2017-08-21 09:14 | CP.PCM.PN ---
Subjective - Date & Time of Evaluation Date of Evaluation: 08/21/17 Time of Evaluation: 09:11 - Subjective Subjective: Podiatry Progress note for Dr. Coy 36 year old female seen at bedside today 14 days s/p L foot Chopart's amputation (DOS 08/06/17). Patient seen with attending Dr. Coy at bedside. Patient resting in bed comfortably, NAD. AAOx3. Reports she is not happy today. Agrees to dressing change but wants to do it on her own. Reports she has been walking a little on the right foot. Denies of recent F/N/V/C/SOB/CP. No new pedal complains. Objective - Vital Signs/Intake and Output Vital Signs (last 24 hours): Temp Pulse Resp BP Pulse Ox 98.6 F 97 H 20 107/65 96 08/21/17 07:50 08/21/17 07:50 08/21/17 07:50 08/21/17 07:50 08/21/17 07:50 Intake and Output: 08/21/17 08/21/17 06:59 18:59 Intake Total 925 Balance 925 - Medications Medications: Current Medications Abacavir Sulfate (Ziagen) 300 mg PO BID [facility] PRN Reason: Protocol Stop: 09/03/19 10:00 Last Admin: 08/20/17 17:19 Dose: 300 mg Amlodipine Besylate (Norvasc) 10 mg PO DAILY [facility] Last Admin: 08/20/17 09:40 Dose: 10 mg Calcitriol (Rocaltrol) 0.25 mcg PO TTS [facility] Last Admin: 08/19/17 10:26 Dose: 0.25 mcg Diphenhydramine HCl (Benadryl) 50 mg IVP Q6H PRN PRN Reason: Insomnia Last Admin: 08/21/17 05:52 Dose: 50 mg Dolutegravir Sodium (Tivicay) 50 mg PO DAILY [facility] PRN Reason: Protocol Last Admin: 08/20/17 09:40 Dose: 50 mg Epoetin Anival (Procrit) 20,000 unit SC TTS [facility] Last Admin: 08/19/17 10:26 Dose: 20,000 unit Cefepime HCl 1 gm/ Dextrose 50 mls @ 100 mls/hr IVPB DAILY [facility] PRN Reason: Protocol Last Admin: 08/15/17 09:48 Dose: 100 mls/hr Daptomycin 500 mg/ Sodium (Chloride) 100 mls @ 100 mls/hr IV Q48H [facility] PRN Reason: Protocol Stop: 08/21/17 12:46 Last Admin: 08/20/17 18:07 Dose: 100 mls/hr Insulin Aspart (Novolog) 16 unit SC BID [facility] Last Admin: 08/20/17 17:10 Dose: Not Given Insulin Glargine (Lantus) 16 unit SC HS [facility] Last Admin: 08/20/17 21:14 Dose: Not Given Insulin Human Regular (Novolin R) 0 unit SC ACHS [facility] PRN Reason: Protocol Last Admin: 08/21/17 08:10 Dose: Not Given Labetalol HCl (Normodyne) 300 mg PO Q8H [facility] Last Admin: 08/21/17 00:17 Dose: 300 mg Lamivudine (Epivir) 100 mg PO Q24H [facility] PRN Reason: Protocol Stop: 09/02/17 13:01 Last Admin: 08/20/17 14:00 Dose: 100 mg Ondansetron HCl (Zofran Inj) 4 mg IVP Q6H PRN PRN Reason: Nausea/Vomiting Last Admin: 08/19/17 22:06 Dose: 4 mg Oxycodone HCl (Oxycodone Immediate Release Tab) 30 mg PO Q4H PRN PRN Reason: Pain, moderate (4-7) Last Admin: 08/21/17 05:52 Dose: 30 mg Saccharomyces Boulardii (Florastor) 250 mg PO BID [facility] Last Admin: 08/20/17 17:19 Dose: 250 mg Sertraline HCl (Zoloft) 50 mg PO DAILY [facility] Last Admin: 08/20/17 09:40 Dose: 50 mg Sevelamer Carbonate (Renvela) 800 mg PO TIDCC [facility] Last Admin: 08/20/17 17:20 Dose: 800 mg Vitamin B Complex/Vit C/Folic Acid (Nephro-Rosario) 1 tab PO 0800 [facility] Last Admin: 08/20/17 07:47 Dose: 1 tab - Labs Labs: 08/20/17 07:04 08/20/17 07:04 PT 14.4 SECONDS (9.7-12.2) H 08/05/17 14:01 INR 1.3 08/05/17 14:01 APTT 34 SECONDS (21-34) 08/05/17 14:01 - Constitutional Appears: Well, Non-toxic, No Acute Distress - Extremities Exam Additional comments: Left Lower Extremity exam: dressing appears c/d/i with no strikethrough evident VASC- DP pulse faintly palpable, skin temp runs warm to warm, nonpitting edema noted to left leg extending from knee joint distally into stump DERM- surgical site remains intact with surgical site well coapted along medial aspect with no evidence of wound dehiscence, plantarlateral surgical site appears macerated with gross lichenification of pedal skin; the lateral distal stump site has a circular opening which measures approx 2 cm x 2 cm which appears to be granulating inwards, mild amount of serosanginous drainage noted from wound, moderate malodor present NEURO- gross and protective pedal sensation are diminished ORTHO- minimal tenderness noted to palpation of the surgical site laterally and plantarly - Neurological Exam Neurological Exam: Alert, Awake, Oriented x3 - Psychiatric Exam Psychiatric exam: Normal Affect, Normal Mood Assessment and Plan - Assessment and Plan (Free Text) Assessment: 36 year old female patient seen 14 days s/p Chopart's amputation (DOS 08/06/17) Plan: Patient examined and evaluated at bedside with attending, Dr. Coy Labs and vitals reviewed - afebrile; WBC 11.8 as of yesterday Continue local wound care - saline cleanse, betadine soaked gauze, ABD, kerlix, RAFFY Intra-op wound cultures: Coagulase Neg Staph c/w IV abx as per ID Dr. Del Valle Continue pain mgt per primary team Patient may be PWB to left heel in surgical shoe with the assistance of a walker Podiatry will continue to follow
[2017-08-21] MEDS: Saccharomyces Boulardi 250 mg Cap PO SCH ×2 (09:22→17:09)
[2017-08-21] MEDS: Epoetin Alfa Dialysis 20000 UNIT/ML Inj SC SCH (10:25)
--- NOTE | 2017-08-21 11:16 | CP.PCM.PN ---
Subjective - Date & Time of Evaluation Date of Evaluation: 08/21/17 Time of Evaluation: 11:14 - Subjective Subjective: CONDITION SAME. Objective - Vital Signs/Intake and Output Vital Signs (last 24 hours): Temp Pulse Resp BP Pulse Ox 98.6 F 97 H 20 107/65 96 08/21/17 07:50 08/21/17 07:50 08/21/17 07:50 08/21/17 07:50 08/21/17 07:50 Intake and Output: 08/21/17 08/21/17 06:59 18:59 Intake Total 925 Balance 925 - Medications Medications: Current Medications Abacavir Sulfate (Ziagen) 300 mg PO BID [facility] PRN Reason: Protocol Stop: 09/03/19 10:00 Last Admin: 08/21/17 09:22 Dose: 300 mg Amlodipine Besylate (Norvasc) 10 mg PO DAILY [facility] Last Admin: 08/21/17 09:22 Dose: 10 mg Calcitriol (Rocaltrol) 0.25 mcg PO TTS [facility] Last Admin: 08/21/17 09:22 Dose: 0.25 mcg Diphenhydramine HCl (Benadryl) 50 mg IVP Q6H PRN PRN Reason: Insomnia Last Admin: 08/21/17 05:52 Dose: 50 mg Dolutegravir Sodium (Tivicay) 50 mg PO DAILY [facility] PRN Reason: Protocol Last Admin: 08/21/17 09:21 Dose: 50 mg Epoetin Anival (Procrit) 20,000 unit SC TTS [facility] Last Admin: 08/19/17 10:26 Dose: 20,000 unit Cefepime HCl 1 gm/ Dextrose 50 mls @ 100 mls/hr IVPB DAILY [facility] PRN Reason: Protocol Last Admin: 08/15/17 09:48 Dose: 100 mls/hr Daptomycin 500 mg/ Sodium (Chloride) 100 mls @ 100 mls/hr IV Q48H [facility] PRN Reason: Protocol Stop: 08/21/17 12:46 Last Admin: 08/20/17 18:07 Dose: 100 mls/hr Insulin Aspart (Novolog) 16 unit SC BID [facility] Last Admin: 08/20/17 17:10 Dose: Not Given Insulin Glargine (Lantus) 16 unit SC HS [facility] Last Admin: 08/20/17 21:14 Dose: Not Given Insulin Human Regular (Novolin R) 0 unit SC ACHS [facility] PRN Reason: Protocol Last Admin: 08/21/17 08:10 Dose: Not Given Labetalol HCl (Normodyne) 300 mg PO Q8H [facility] Last Admin: 08/21/17 08:21 Dose: Not Given Lamivudine (Epivir) 100 mg PO Q24H [facility] PRN Reason: Protocol Stop: 09/02/17 13:01 Last Admin: 08/20/17 14:00 Dose: 100 mg Ondansetron HCl (Zofran Inj) 4 mg IVP Q6H PRN PRN Reason: Nausea/Vomiting Last Admin: 08/19/17 22:06 Dose: 4 mg Oxycodone HCl (Oxycodone Immediate Release Tab) 30 mg PO Q4H PRN PRN Reason: Pain, moderate (4-7) Last Admin: 08/21/17 05:52 Dose: 30 mg Saccharomyces Boulardii (Florastor) 250 mg PO BID [facility] Last Admin: 08/21/17 09:22 Dose: 250 mg Sertraline HCl (Zoloft) 50 mg PO DAILY [facility] Last Admin: 08/21/17 09:21 Dose: 50 mg Sevelamer Carbonate (Renvela) 800 mg PO TIDCC [facility] Last Admin: 08/21/17 08:22 Dose: 800 mg Vitamin B Complex/Vit C/Folic Acid (Nephro-Rosario) 1 tab PO 0800 [facility] Last Admin: 08/21/17 08:21 Dose: 1 tab - Labs Labs: 08/20/17 07:04 08/20/17 07:04 PT 14.4 SECONDS (9.7-12.2) H 08/05/17 14:01 INR 1.3 08/05/17 14:01 APTT 34 SECONDS (21-34) 08/05/17 14:01 - Constitutional Appears: No Acute Distress, Chronically Ill - Eye Exam Eye Exam: EOMI, Normal appearance, PERRL Pupil Exam: NORMAL ACCOMODATION, PERRL - ENT Exam ENT Exam: Mucous Membranes Moist, Normal Exam - Neck Exam Neck Exam: Full ROM, Normal Inspection. absent: Lymphadenopathy - Respiratory Exam Respiratory Exam: Clear to Ausculation Bilateral, NORMAL BREATHING PATTERN - Cardiovascular Exam Cardiovascular Exam: REGULAR RHYTHM, +S1, +S2. absent: Murmur - GI/Abdominal Exam GI & Abdominal Exam: Soft, Normal Bowel Sounds. absent: Tenderness - Neurological Exam Neurological Exam: Alert, Awake, CN II-XII Intact, Normal Gait, Oriented x3 - Psychiatric Exam Psychiatric exam: Normal Affect, Normal Mood - Additional Findings Additional findings: LT FOOT OM AND INF SAME. Assessment and Plan - Assessment and Plan (Free Text) Assessment: SAME. Plan: CT PRESENT TREATMENT.
--- NOTE | 2017-08-21 11:36 | CP.PCM.PN ---
Subjective - Date & Time of Evaluation Date of Evaluation: 08/21/17 Time of Evaluation: 11:36 - Subjective Subjective: pt is seen and examined, follow up consult is dictated #[phone] pt does not hd until wednesday Objective - Vital Signs/Intake and Output Vital Signs (last 24 hours): Temp Pulse Resp BP Pulse Ox 98.6 F 97 H 20 107/65 96 08/21/17 07:50 08/21/17 07:50 08/21/17 07:50 08/21/17 07:50 08/21/17 07:50 Intake and Output: 08/21/17 08/21/17 06:59 18:59 Intake Total 925 Balance 925 - Medications Medications: Current Medications Abacavir Sulfate (Ziagen) 300 mg PO BID [facility] PRN Reason: Protocol Stop: 09/03/19 10:00 Last Admin: 08/21/17 09:22 Dose: 300 mg Amlodipine Besylate (Norvasc) 10 mg PO DAILY [facility] Last Admin: 08/21/17 09:22 Dose: 10 mg Calcitriol (Rocaltrol) 0.25 mcg PO TTS [facility] Last Admin: 08/21/17 09:22 Dose: 0.25 mcg Diphenhydramine HCl (Benadryl) 50 mg IVP Q6H PRN PRN Reason: Insomnia Last Admin: 08/21/17 05:52 Dose: 50 mg Dolutegravir Sodium (Tivicay) 50 mg PO DAILY [facility] PRN Reason: Protocol Last Admin: 08/21/17 09:21 Dose: 50 mg Epoetin Anival (Procrit) 20,000 unit SC TTS [facility] Last Admin: 08/19/17 10:26 Dose: 20,000 unit Cefepime HCl 1 gm/ Dextrose 50 mls @ 100 mls/hr IVPB DAILY [facility] PRN Reason: Protocol Last Admin: 08/15/17 09:48 Dose: 100 mls/hr Daptomycin 500 mg/ Sodium (Chloride) 100 mls @ 100 mls/hr IV Q48H [facility] PRN Reason: Protocol Stop: 08/21/17 12:46 Last Admin: 08/20/17 18:07 Dose: 100 mls/hr Insulin Aspart (Novolog) 16 unit SC BID [facility] Last Admin: 08/20/17 17:10 Dose: Not Given Insulin Glargine (Lantus) 16 unit SC HS [facility] Last Admin: 08/20/17 21:14 Dose: Not Given Insulin Human Regular (Novolin R) 0 unit SC ACHS [facility] PRN Reason: Protocol Last Admin: 08/21/17 08:10 Dose: Not Given Labetalol HCl (Normodyne) 300 mg PO Q8H [facility] Last Admin: 08/21/17 08:21 Dose: Not Given Lamivudine (Epivir) 100 mg PO Q24H [facility] PRN Reason: Protocol Stop: 09/02/17 13:01 Last Admin: 08/20/17 14:00 Dose: 100 mg Ondansetron HCl (Zofran Inj) 4 mg IVP Q6H PRN PRN Reason: Nausea/Vomiting Last Admin: 08/19/17 22:06 Dose: 4 mg Oxycodone HCl (Oxycodone Immediate Release Tab) 30 mg PO Q4H PRN PRN Reason: Pain, moderate (4-7) Last Admin: 08/21/17 05:52 Dose: 30 mg Saccharomyces Boulardii (Florastor) 250 mg PO BID [facility] Last Admin: 08/21/17 09:22 Dose: 250 mg Sertraline HCl (Zoloft) 50 mg PO DAILY [facility] Last Admin: 08/21/17 09:21 Dose: 50 mg Sevelamer Carbonate (Renvela) 800 mg PO TIDCC [facility] Last Admin: 08/21/17 08:22 Dose: 800 mg Vitamin B Complex/Vit C/Folic Acid (Nephro-Rosario) 1 tab PO 0800 [facility] Last Admin: 08/21/17 08:21 Dose: 1 tab - Labs Labs: 08/20/17 07:04 08/20/17 07:04 PT 14.4 SECONDS (9.7-12.2) H 08/05/17 14:01 INR 1.3 08/05/17 14:01 APTT 34 SECONDS (21-34) 08/05/17 14:01
[2017-08-21] MEDS: (Novolog) Insulin Aspart, Recombinant 100 u/ml 10 ml vial SC SCH ×2 (12:15→17:09)
[2017-08-21] MEDS: LamiVUDine 10 mg/ml Syringe PO SCH (13:15)
[2017-08-21 14:05] LABS: HEMOGLOBIN 7.8 g/dL (11.0-16.0); MEAN CELL VOLUME 87.5 fL (81.0-99.0); MEAN CORPUSCULAR HEMOGLOBIN 28.3 pg (27.0-31.0); MEAN CORPUSCULAR HGB CONC 32.4 g/dL (33.0-37.0); MEAN PLATELET VOLUME 6.9 fL (7.2-11.7); RBC 2.74 Mil/uL (3.80-5.20); RED CELL DISTRIBUTION WIDTH 18.4 % (11.5-14.5)
[2017-08-21 14:24] LABS: CALCIUM 9.1 mg/dl (8.6-10.4)
[2017-08-21 16:13] VITALS: BP 135/69; PULSE 109; O2SAT 97
--- NOTE | 2017-08-21 21:17 | CP.PCM.PN ---
Subjective - Date & Time of Evaluation Date of Evaluation: 08/21/17 Time of Evaluation: 16:00 - Subjective Subjective: Pt upset and wants to leave the hospital. Objective - Vital Signs/Intake and Output Vital Signs (last 24 hours): Temp Pulse Resp BP Pulse Ox 98.6 F 109 H 20 135/69 97 08/21/17 16:04 08/21/17 16:04 08/21/17 16:04 08/21/17 16:04 08/21/17 16:04 Intake and Output: 08/21/17 08/22/17 18:59 06:59 Intake Total 300 Output Total 300 Balance 0 - Labs Labs: 08/21/17 13:58 08/21/17 13:58 PT 14.4 SECONDS (9.7-12.2) H 08/05/17 14:01 INR 1.3 08/05/17 14:01 APTT 34 SECONDS (21-34) 08/05/17 14:01 - Head Exam Head Exam: ATRAUMATIC - Eye Exam Eye Exam: Normal appearance - ENT Exam ENT Exam: Mucous Membranes Dry - Respiratory Exam Respiratory Exam: NORMAL BREATHING PATTERN - Cardiovascular Exam Cardiovascular Exam: +S1, +S2 - GI/Abdominal Exam GI & Abdominal Exam: Normal Bowel Sounds - Psychiatric Exam Psychiatric exam: Agitated Assessment and Plan (1) Anemia Assessment & Plan: multifactorial anemia of chronic disease from osteomyelitis anemia of CKD anemia of HIV on KIT to decrease transfusion requirements. transfusion support PRN Status: Acute (2) Monoclonal gammopathy Assessment & Plan: + monoclonal protein detected in urine abnormal free light chain ratio skeletal survey to evaluate for lytic lesions possible bone marrow +/- kidney biopsy; discussed with the patient who prefers to not have a biopsy during this admission but will reconsider at a later date Status: Acute
--- NOTE | 2017-08-22 00:37 | PN ---
DATE: 08/21/2017 FOLLOWUP RENAL CONSULTATION LOCATION: Room 517, bed A. REQUESTED BY: Dr. Art Nathan. REASON FOR FOLLOWUP: Acute renal failure for further evaluation. HISTORY OF PRESENT ILLNESS: Mrs. Johnson is a 36 years old young transgender female with a past medical history significant for longstanding hypertension, diabetes, nephrotic range proteinuria, CKD 4, anemia, hyperkalemia, metabolic acidosis, Charcot's foot, osteomyelitis of the left foot status post transmetatarsal amputation, was found to have a worsening renal function since Wednesday and the patient was initially refusing dialysis and yesterday agreed for dialysis but patient wants the dialysis next week, Wednesday and wants to have a catheter after Wednesday, under sedation. The patient denies any chest pain or palpitation. Denies any fever or cough. No abdominal pain. No nausea, vomiting, diarrhea. PHYSICAL EXAMINATION: VITAL SIGNS: This morning as follows, blood pressure 107/65, pulse 97, respirations 20, temperature 98.6, saturation 96%. Height 6 feet 3 inches and weight is 280 pounds. GENERAL: Mrs. Johnson is 36 years old young transgender female not in acute distress, well-built, well-nourished. HEENT: Pupils normal, react to light and accommodation. Conjunctivae pink. Sclerae anicteric. Tongue is moist and trachea is midline. LUNGS: Symmetric on both sides. Bilateral breath sounds present. Clear to auscultation. CVS: [place] at the fifth intercostal space, midclavicular line. S1 and S2 audible. No murmur or gallop. ABDOMEN: Normal in appearance, soft, tympanic. No guarding, no rigidity. No hepatosplenomegaly. JIGMAKER: The patient is alert, awake, oriented x3. Nonfocal neuro examination. EXTREMITIES: No cyanosis, no clubbing, no edema on the right leg. The patient has a dressing to the left foot and left leg is swollen from below the knee joint. MEDICATIONS: Epivir 150 mg p.o. daily, amlodipine 10 mg daily, Nephro-Rosario 1 tablet daily, Zoloft 50 mg p.o. daily, Zofran 4 mg p.o. every 6 hours, labetalol 300 mg p.o. every 6 hours, insulin 16 units subcu b.i.d., Lantus 16 units subcu at bedtime, Tivicay 50 mg p.o. daily, Ziagen, calcitriol. LABORATORY DATA: As of 08/21/2017; WBC 12, hemoglobin 7.8, hematocrit is 24, platelets 454. Sodium 136, potassium 4.6, chloride 100, CO 21, BUN 93, creatinine 9.2, glucose 97, calcium 9.1 and phosphorus 6.9. ASSESSMENT: In summary, Mrs. Johnson is a 36 years old young transgender female with hypertension, diabetes, nephrotic range proteinuria, human immunodeficiency virus positive, chronic kidney disease 4 with anemia, serum protein electrophoresis/urine protein electrophoresis positive and refusing bone marrow biopsy and also with worsening renal function serum creatinine starts increasing from 3.5 last week Wednesday now it is 9.2 this morning. 1. Nonoliguric acute renal failure most likely secondary to a acute interstitial nephritis secondary to medication, cannot rule out acute tubular necrosis secondary to infection chronic. 2. Anemia secondary to multifactorial, renal failure, iron deficiency, human immunodeficiency virus and chronic infection. Cannot rule out multiple myeloma. 3. Hypertension. 4. Diabetes. 5. Human immunodeficiency virus positive. PLAN: Continue all her current medication. Continue antibiotics as per Dr. Del Valle. The patient is refusing any dialysis today. The patient wants to have a catheter placement under sedation on Wednesday and then hemodialysis after Wednesday. The patient does not want to discuss what type of access she wants, Jacques catheter, Perm-A-Cath, she does not want to discuss with me in rounds, the patient is irritable. Continue to monitor electrolytes in a.m. Overall prognosis is guarded. Continue monitor electrolytes closely. Thank you for allowing me to participate in your patient's care. Weston Brambila MD
--- NOTE | 2017-08-25 11:55 | DS ---
HISTORY OF PRESENT ILLNESS: This is a 36-year-old transgender came to the emergency room with history of left foot chronic infection with osteomyelitis. The patient also has chronic renal failure, diabetes, hypertension. The patient is HIV positive. HOSPITAL COURSE: During the hospital course, the patient was awake, comfortable, in chronic pain. The patient's vital signs were within normal limit. Lungs and heart were normal. During the hospital course, the patient was treated with IV antibiotics. Renal followup was done. Since the patient has persistent anemia, the patient has blood transfusion done. The patient has episodes of high fever at times. The patient was advised hemodialysis and bone marrow biopsy. The patient refused . The patient walked out of the hospital. FINAL DIAGNOSES: Left foot osteomyelitis. Chronic renal failure, needing hemodialysis. Diabetes mellitus. Hypertension. Human immunodeficiency virus positive. Art Nathan MD
--- NOTE | 2017-08-25 13:19 | CARD ---
APPROVED REPORT EKG Measurement Heart [id number] <Conclusion> Normal sinus rhythm Normal ECG
== END 2017-08-21 17:35 | disposition left against medical advice (07) | DRG 616 ==
LOC: C.ER 15:54 → C.9E 18:56 → C.3T 21:00 → C.5S 08-02 06:20
PROVIDERS: ADMIT Internal Medicine; ATTEND Internal Medicine
PROC: 02HV33Z Insertion of Infusion Device into Superior Vena Cava, Percutaneous Approach (ICD-10-PCS; 2017-07-30)
PROC: 0J9R0ZZ Drainage of Left Foot Subcutaneous Tissue and Fascia, Open Approach (ICD-10-PCS; 2017-07-31)
PROC: 0Y6N0Z0 Detachment at Left Foot, Complete, Open Approach (ICD-10-PCS; principal; 2017-08-06 07:30)
DX: E11.621 Type 2 diabetes mellitus with foot ulcer (principal); B20 Human immunodeficiency virus [HIV] disease; M86.172 Other acute osteomyelitis, left ankle and foot; E87.2 Acidosis; I12.0 Hypertensive chronic kidney disease with stage 5 chronic kidney disease or end stage renal disease; L97.429 Non-pressure chronic ulcer of left heel and midfoot with unspecified severity; M86.672 Other chronic osteomyelitis, left ankle and foot; E11.65 Type 2 diabetes mellitus with hyperglycemia; E11.610 Type 2 diabetes mellitus with diabetic neuropathic arthropathy; E11.69 Type 2 diabetes mellitus with other specified complication; Z79.4 Long term (current) use of insulin; D50.9 Iron deficiency anemia, unspecified; D47.2 Monoclonal gammopathy; D63.1 Anemia in chronic kidney disease; E11.21 Type 2 diabetes mellitus with diabetic nephropathy; E11.22 Type 2 diabetes mellitus with diabetic chronic kidney disease; E87.5 Hyperkalemia; F17.290 Nicotine dependence, other tobacco product, uncomplicated; F64.9 Gender identity disorder, unspecified; I25.10 Atherosclerotic heart disease of native coronary artery without angina pectoris; L97.529 Non-pressure chronic ulcer of other part of left foot with unspecified severity; N17.9 Acute kidney failure, unspecified; N18.6 End stage renal disease; N25.81 Secondary hyperparathyroidism of renal origin; M14.679 Charcot's joint, unspecified ankle and foot; Z91.14 Patient's other noncompliance with medication regimen; Z91.15 Patient's noncompliance with renal dialysis; Z68.35 Body mass index [BMI] 35.0-35.9, adult

== ENCOUNTER 2017-08-21 18:04 | Inpatient (IN) | payer MEDICARE ==
[2017-08-21 18:05] VITALS: BMI 36.2
--- NOTE | 2017-08-21 19:25 | C.PDOC ---
History Of Present Illness 36 year old female, PMHx of HIV, renal failure and recent amputation of left foot, presents to the emergency department for an evaluation. pt was admitted inpt, upset about her care, signed out ama, walked outside, and turned around and wishes to be readmitted Patient notes she is starting dialysis this upcoming Wednesday. no new complaints. labs from this afternoon PMD: Jarred Del Valle Time Seen by Provider: 08/21/17 18:32 Chief Complaint (Nursing): Lower Extremity Problem/Injury History Per: Patient History/Exam Limitations: no limitations Onset/Duration Of Symptoms: Mins Past Medical History Reviewed: Historical Data, Nursing Documentation, Vital Signs Vital Signs: Last Vital Signs Temp 99.2 F 08/21/17 18:12 Pulse 117 H 08/21/17 18:12 Resp 20 08/21/17 18:12 BP 120/65 08/21/17 18:12 Pulse Ox 97 08/21/17 19:57 - Medical History PMH: Depression, Diabetes, Deep Vein Thrombosis, HIV, HTN, Peripheral Edema, Chronic Pain Denies: Chronic Kidney Disease Surgical History: - [facility] Procedures ANAL FISTULOTOMY (03/15/13) CENTRAL VENOUS CATHETER PLACEMENT WITH GUIDANCE (08/24/13) DEBRIDEMENT OF NAIL, NAIL BED OR NAIL FOLD (07/09/14) DETACHMENT AT LEFT 1ST TOE, COMPLETE, OPEN APPROACH (02/12/16) DETACHMENT AT LEFT 3RD TOE, COMPLETE, OPEN APPROACH (03/20/15) DETACHMENT AT LEFT 4TH TOE, COMPLETE, OPEN APPROACH (03/20/15) DETACHMENT AT LEFT FOOT, PARTIAL 3RD RAY, OPEN APPROACH (10/23/15) DETACHMENT AT LEFT FOOT, PARTIAL 4TH RAY, OPEN APPROACH (10/23/15) DRAIN OF L FOOT SUBCU/FASCIA WITH DRAIN DEV, OPEN APPROACH (07/05/17) DRAINAGE OF BUTTOCK SUBCU/FASCIA, OPEN APPROACH (05/16/15) DRAINAGE OF LEFT FOOT, OPEN APPROACH (06/11/15) ELECTROCOAG RECT LES NEC (03/15/13) EXCIS DEBRIDE OF WOUND, INFECT, OR BURN (08/28/14) EXCISION OF L FOOT SUBCU/FASCIA, OPEN APPROACH (07/05/17) EXCISION OF LEFT FOOT SKIN, EXTERNAL APPROACH (10/29/16) EXCISION OF LEFT METATARSAL, OPEN APPROACH (10/29/16) EXCISION OF LEFT TOE PHALANX, OPEN APPROACH (02/12/16) EXCISION OF TOE NAIL, EXTERNAL APPROACH (02/12/16) INJECT ANTIBIOTIC (02/08/14) INJECT STEROID (02/09/12) INJECTION INTO JOINT (02/09/12) INSERTION OF INFUSION DEV INTO L SUBCLAV VEIN, PERC APPROACH (10/23/15) INSERTION OF INFUSION DEV INTO SUP VENA CAVA, PERC APPROACH (07/05/17) LOC EXC LES METATAR/TAR (12/09/13) OTH LOCAL EXC OR DEST OF LESION OR TISSUE OF ANUS (03/15/13) OTHER SKIN & SUBQ I D (10/24/14) PART OSTECT-METATAR/TAR (07/09/14) RESECTION OF LEFT METATARSAL, OPEN APPROACH (06/02/17) ULTRASONOGRAPHY OF SUPERIOR VENA CAVA, GUIDANCE (07/05/17) VASCULAR CATH IRRIGATION (01/10/14) VENOUS CATHETERIZATION NEC (01/18/14) Family History: States: MD, CAD, Diabetes, Hypertension - Social History Hx Tobacco Use: No Hx Alcohol Use: No Hx Substance Use: Yes (OCCASIONALLY) - Immunization History Hx Tetanus Toxoid Vaccination: Yes Hx Influenza Vaccination: No Hx Pneumococcal Vaccination: Yes Review Of Systems Except As Marked, All Systems Reviewed And Found Negative. Constitutional: Negative for: Fever, Weakness Respiratory: Negative for: Shortness of Breath Physical Exam - Physical Exam Appears: Non-toxic, No Acute Distress Skin: Normal Color, Warm, Dry Head: Atraumatic, Normacephalic Eye(s): bilateral: Normal Inspection Oral Mucosa: Moist Neck: Normal ROM, Supple Chest: Symmetrical Cardiovascular: Rhythm Regular Respiratory: Normal Breath Sounds Gastrointestinal/Abdominal: Soft, No Tenderness, No Guarding, No Rebound Extremity: Other (Amputation to the left foot ( 2nd,3rd,4th,5th metarsals) ) Neurological/Psych: Oriented x3 ED Course And Treatment O2 Sat by Pulse Oximetry: 97 (RA) Pulse Ox Interpretation: Normal Medical Decision Making Medical Decision Making: Impression: Patient complaints of unsatisfactory care. here immediatley after inpt ama. 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 Plan: Consultations requested to Dr. Coy, Dr. Del Valle, and Dr. Brambila Disposition - Disposition Disposition: HOSPITALIZED Disposition Time: 20:04 Condition: STABLE - Clinical Impression Clinical Impression: Ulcer of foot, HIV (human immunodeficiency virus) risk factors complicating , Osteomyelitis, GAEL (acute kidney injury) - Scribe Statement The provider has reviewed the documentation as recorded by the Scribe (Allyn Marie) Provider Attestation: All medical record entries made by the Scribe were at my direction and personally dictated by me. I have reviewed the chart and agree that the record accurately reflects my personal performance of the history, physical exam, medical decision making, and the department course for this patient. I have also personally directed, reviewed, and agree with the discharge instructions and disposition.
[2017-08-21] MEDS ORDERED: Home Med 1 UNIT (Vancomycin 1 Gm [Vancomycin 1gm In Normal Saline Addvantage] 1 GM) IVPB SCH (21:45)
[2017-08-21] MEDS: (Lantus) Insulin Glargine, Recombinant SC SCH (21:51)
[2017-08-21] MEDS: (Novolin R) Insulin Human Regular 100 units/ml vial SC SCH (21:54)
[2017-08-22] MEDS ORDERED: Morphine 4 MG/ML VIAL IV ONE ×2 (02:39→06:35)
[2017-08-22] MEDS: (Novolin R) Insulin Human Regular 100 units/ml vial SC SCH ×4 (07:17→21:49)
[2017-08-22] MEDS: Multivitamin Vitamin B Complex (Nephro-Vite) Tab PO SCH (08:00)
[2017-08-22] MEDS ORDERED: Cefepime (Maxipime) 1 g Inj IVPB SCH (10:00)
[2017-08-22] MEDS: Saccharomyces Boulardi 250 mg Cap PO SCH ×2 (10:02→16:59)
[2017-08-22] MEDS: Cefepime IV 1 gm in Dextrose 1 GM/50 ML BAG IVPB SCH (10:10)
[2017-08-22 11:21] LABS: HEMOGLOBIN 7.7 g/dL (11.0-16.0); MEAN CELL VOLUME 86.9 fL (81.0-99.0); MEAN CORPUSCULAR HEMOGLOBIN 28.7 pg (27.0-31.0); MEAN CORPUSCULAR HGB CONC 33.1 g/dL (33.0-37.0); MEAN PLATELET VOLUME 6.9 fL (7.2-11.7); RBC 2.69 Mil/uL (3.80-5.20); RED CELL DISTRIBUTION WIDTH 17.6 % (11.5-14.5); WHITE BLOOD COUNT 12.1 K/uL (4.8-10.8)
[2017-08-22 11:49] LABS: ALB/GLOB RATIO 0.5 (1.0-2.1); ALBUMIN 2.8 g/dL (3.5-5.0); CALCIUM 8.9 mg/dl (8.6-10.4)
--- NOTE | 2017-08-22 14:49 | CP.PCM.PN ---
Subjective - Date & Time of Evaluation Date of Evaluation: 08/22/17 Time of Evaluation: 14:47 - Subjective Subjective: Podiatry Progress note for Dr. Coy 36 year old female seen at bedside today 14 days s/p L foot Chopart's amputation (DOS 08/06/17). Patient resting in bed comfortably, NAD. AAOx3. Reprots that she fell yesterday. No pain to the foot today. Reports that she left the hospital for couple of hours and came back because she was not happy yesterday. Reports she has been walking a little on the right foot. Denies of recent F/N/V/C/SOB/CP. No new pedal complains. Objective - Vital Signs/Intake and Output Vital Signs (last 24 hours): Temp Pulse Resp BP Pulse Ox 98.4 F 96 H 20 148/82 95 08/22/17 07:35 08/22/17 08:40 08/22/17 07:35 08/22/17 13:46 08/22/17 07:35 Intake and Output: 08/22/17 08/22/17 06:59 18:59 Intake Total 300 Balance 300 - Medications Medications: Current Medications Abacavir Sulfate (Ziagen) 300 mg PO BID [facility] PRN Reason: Protocol Last Admin: 08/22/17 10:02 Dose: 300 mg Amlodipine Besylate (Norvasc) 5 mg PO DAILY [facility] Last Admin: 08/22/17 10:02 Dose: 5 mg Calcitriol (Rocaltrol) 0.25 mcg PO TTS [facility] Dolutegravir Sodium (Tivicay) 50 mg PO DAILY [facility] PRN Reason: Protocol Last Admin: 08/22/17 10:02 Dose: 50 mg Cefepime HCl (Maxipime Iv 1 Gm Premix) 1 gm in 50 mls @ 50 mls/hr IVPB DAILY [facility] Last Admin: 08/22/17 10:10 Dose: 50 mls/hr Insulin Glargine (Lantus) 16 unit SC HS [facility] Last Admin: 08/21/17 21:51 Dose: Not Given Insulin Human Regular (Novolin R) 0 unit SC ACHS [facility] PRN Reason: Protocol Last Admin: 08/22/17 12:30 Dose: Not Given Labetalol HCl (Trandate) 300 mg PO Q8H [facility] Last Admin: 08/22/17 13:46 Dose: 300 mg Morphine Sulfate (Morphine) 1 mg IVP Q6 PRN PRN Reason: Pain, moderate (4-7) Last Admin: 08/22/17 10:05 Dose: 1 mg Ondansetron HCl (Zofran Tab) 4 mg PO Q6H PRN PRN Reason: Nausea/Vomiting Saccharomyces Boulardii (Florastor) 250 mg PO BID [facility] Last Admin: 08/22/17 10:02 Dose: 250 mg Sertraline HCl (Zoloft) 50 mg PO DAILY [facility] Last Admin: 08/22/17 10:03 Dose: 50 mg Vitamin B Complex/Vit C/Folic Acid (Nephro-Rosario) 1 tab PO 0800 [facility] Last Admin: 08/22/17 08:00 Dose: 1 tab - Labs Labs: 08/22/17 11:15 08/22/17 11:15 - Constitutional Appears: Well, Non-toxic, No Acute Distress - Extremities Exam Additional comments: Left Lower Extremity exam: dressing appears c/d/i with no strikethrough evident VASC- DP pulse faintly palpable, skin temp runs warm to warm, nonpitting edema noted to left leg extending from knee joint distally into stump DERM- surgical site remains intact with surgical site well coapted along medial aspect with no evidence of wound dehiscence, plantarlateral surgical site appears macerated with gross lichenification of pedal skin; the lateral distal stump site has a circular opening which measures approx 2 cm x 2 cm which appears to be granulating inwards, mild amount of serosanginous drainage noted from wound, moderate malodor present NEURO- gross and protective pedal sensation are diminished ORTHO- minimal tenderness noted to palpation of the surgical site laterally and plantarly - Neurological Exam Neurological Exam: Alert, Awake, Oriented x3 - Psychiatric Exam Psychiatric exam: Normal Affect, Normal Mood Assessment and Plan - Assessment and Plan (Free Text) Assessment: 36 year old female patient seen 15 days s/p Chopart's amputation (DOS 08/06/17) Plan: Patient examined and evaluated at bedside Discussed plan with attending, Dr. Coy Labs and vitals reviewed - afebrile; WBC 12.1 Continue local wound care - saline cleanse, betadine soaked gauze, ABD, kerlix, RAFFY Intra-op wound cultures: Coagulase Neg Staph c/w IV abx as per ID Dr. Del Valle Continue pain mgt per primary team Patient may be PWB to left heel in surgical shoe with the assistance of a walker Podiatry will continue to follow
--- NOTE | 2017-08-22 14:53 | CP.PCM.CON ---
History of Present Illness - History of Present Illness History of Present Illness: 36 year old female, PMHx of HIV, renal failure and recent trans metatarsal amputation of left foot, presents to the emergency department for an evaluation. pt was admitted inpt, upset about her care, signed out ama, walked outside, and turned around and wishes to be readmitted Patient notes she is starting dialysis this upcoming Wednesday. has had long hx of noncompliance with follow ups and therapy interruptions developed GAEL and CKD with hx of HTN, DM , HIV as well as possible blood dyscrasia/ myeloma followed by Dr Mcfarlane refused BKA- instead opting for TMA now wants to discuss HD with Mom before starting rx - Medical History PMH: Depression, Diabetes, Deep Vein Thrombosis, HIV, HTN, Peripheral Edema, Chronic Pain Denies: Chronic Kidney Disease Surgical History: TMA left foot Review of Systems - Review of Systems All systems: reviewed and no additional remarkable complaints except - Constitutional Constitutional: As Per HPI - EENT Eyes: Blurred Vision, Decreased Night Vision. absent: As Per HPI, Blind Spots, Change in Vision, Diplopia, Discharge, Dry Eye, Exophthalmos, Floaters, Irritation, Itchy Eyes, Loss of Peripheral Vision, Pain, Photophobia, Requires Corrective Lenses, Sees Flashes, Spots in Vision, Tunnel Vision, Other Visual Disturbances, Loss of Vision, Other Ears: absent: As Per HPI, Decreased Hearing, Ear Discharge, Ear Pain, Tinnitus, Abnormal Hearing, Disequilibrium, Dizziness, Other Nose/Mouth/Throat: absent: As Per HPI, Epistaxis, Nasal Congestion, Nasal Discharge, Nasal Obstruction, Nasal Trauma, Nose Pain, Post Nasal Drip, Sinus Pain, Sinus Pressure, Bleeding Gums, Change in Voice, Dental Pain, Dry Mouth, Dysphagia, Halitosis, Hoarsness, Lip Swelling, Mouth Lesions, Mouth Pain, Odynophagia, Sore Throat, Throat Swelling, Tongue Swelling, Facial Pain, Neck Pain, Neck Mass, Other - Breasts Breasts: absent: As Per HPI, Change in Shape, Mass, Pain, Nipple Discharge, Nipple Inversion, Skin Changes, Swelling, Other - Cardiovascular Cardiovascular: absent: As Per HPI, Acrocyanosis, Chest Pain, Chest Pain at Rest , Chest Pain with Activity, Claudication, Diaphoresis, Dyspnea, Dyspnea on Exertion, Edema, Irregular Heart Rhythm, Pain Radiating to Arm/Neck/Jaw, Leg Edema, Leg Ulcers, Lightheadedness, Orthopnea, Palpitations, Paroxysmal Nocturnal Dyspnea, Pedal Edema, Radiating Pain, Rapid Heart Rate, Slow Heart Rate, Syncope, Other - Respiratory Respiratory: absent: As Per HPI, Cough, Dyspnea, Hemoptysis, Dyspnea on Exertion , Wheezing, Snoring, Stridor, Pain on Inspiration, Chest Congestion, Excessive Mucous Production, Change in Mucous Color, Pain with Coughing, Other - Gastrointestinal Gastrointestinal: absent: As Per HPI, Abdominal Pain, Belching, Bloating, Change in Bowel Habits, Change in Stool Character, Coffee Ground Emesis, Constipation, Cramping, Diarrhea, Dyspepsia, Dysphagia, Early Satiety, Excessive Flatus, Fecal Incontinence, Heartburn, Hematemesis, Hematochezia, Loose Stools, Melena, Nausea, Odynophagia, Temesmus, Vomiting, Other - Genitourinary Genitourinary: absent: As Per HPI, Change in Urinary Stream, Difficulty Urinating, Dysuria, Flank Pain, Hematuria, Pyuria, Nocturia, Urinary Incontinence, Urinary Frequency, Urinary Hesitance, Urinary Urgency, Voiding Freq/Small Amts, Freq UTI, Hx Renal/Bladder Calculi, Hx /Renal Surgery, Bladder Distension, Other - Reproductive: Female Reproductive:Female: absent: As Per HPI, Amenorrhea, Amenorrhea/ Control, Currently Menstual, Cycle <21 Days, Cycle >35 Days, Cycle Variable, Menses 1-7 Days, Menses >/= 8 Days, Menses Variable, Cycle > 4 Weeks Between, No Menses for 6 Months, Heavy Menses, Light Menses, Normal Menses, Spotting Between Cycles , S/P Hysterectomy, Menopausal, Post Menopausal, Premenarche, Abnormal Vaginal Bleeding, Dysmenorrhea, Dyspareunia, Genital Lesions, Genital Pruritis, Pelvic Pain, Prolapse Symptoms, Sexual Dysfunction, Vaginal Discharge, Vaginal Dryness , Vaginal Odor, Vaginal Pruritis, Other - Menstruation Menstruation: absent: As Per HPI, Amenorrhea, Amenorrhea/ Control, Currently Menstual, Cycle <21 Days, Cycle >35 Days, Cycle Variable, Menses 1-7 Days, Menses >/= 8 Days, Menses Variable, Cycle > 4 Weeks Between, No Menses for 6 Months, Heavy Menses, Light Menses, Normal Menses, Spotting Between Cycles , S/P Hysterectomy, Menopausal, Post Menopausal, Premenarche, Abnormal Vaginal Bleeding, Dysmenorrhea, Other - Musculoskeletal Musculoskeletal: As Per HPI - Integumentary Integumentary: As Per HPI, Skin Pain, Wounds - Neurological Neurological: absent: As Per HPI, Abnormal Gait, Abnormal Hearing, Abnormal Movements, Abnormal Speech, Behavioral Changes, Burning Sensations, Confusion, Convulsions, Disequilibrium, Dizziness, Numbness, Focal Weakness, Frequent Falls , Headaches, Lack of Coordination, Loss of Vision, Memory Loss, Paresthesias, Radicular Pain, Restless Legs, Sensory Deficit, Syncope, Tingling, Tremor, Vertigo, Weakness, Other Visual Disturbances, Other - Psychiatric Psychiatric: absent: As Per HPI, Abnormal Sleep Pattern, Anhedonia, Anxiety, Auditory Hallucinations, Behavioral Changes, Change in Appetite, Change in Libido, Confusion, Depression, Difficulty Concentrating, Hallucinations, Homicidal Ideation, Hopelessness, Irritability, Memory Loss, Mood Swings, Panic Attacks, Paranoia, Suicidal Ideation, Visual Hallucinations, Tactile Hallucinations, Other - Endocrine Endocrine: absent: As Per HPI, Change in Body Appearance, Change in Libido, Cold Intolorance, Deepening of Voice, Excessive Sweating, Fatigue, Flushing, Heat Intolorance, Increase in Ring/Shoe/Hat Size, Palpitations, Polydipsia, Polyphagia, Polyuria, Other - Hematologic/Lymphatic Hematologic: absent: As Per HPI, Easy Bleeding, Easy Bruising, Lymphadenopathy, Other Past Patient History - Infectious Disease Hx of Infectious Diseases: None - Past Medical History & Family History Past Medical History?: Yes - Past Social History Smoking Status: Former Smoker - CARDIAC Hx Cardiac Disorders: Yes Hx Hypertension: Yes Hx Peripheral Edema: Yes - PULMONARY Hx Respiratory Disorders: Yes Hx Asthma: Yes - NEUROLOGICAL Hx Neurological Disorder: No - HEENT Hx HEENT Problems: No - RENAL Hx Chronic Kidney Disease: No - ENDOCRINE/METABOLIC Hx Endocrine Disorders: No - HEMATOLOGICAL/ONCOLOGICAL Hx Blood Disorders: Yes Hx Human Immunodeficiency Virus (HIV): Yes - INTEGUMENTARY Hx Dermatological Problems: Yes Other/Comment: ULCER BOTTOM LEFT FOOT LEFT FOOT SUTURE LINES TOES - MUSCULOSKELETAL/RHEUMATOLOGICAL Hx Musculoskeletal Disorders: Yes Hx Falls: No Hx Osteomyelitis: Yes (LEFT FOOT, receiving daily infusion) - GASTROINTESTINAL Hx Gastrointestinal Disorders: No - GENITOURINARY/GYNECOLOGICAL Hx Genitourinary Disorders: No - PSYCHIATRIC Hx Psychophysiologic Disorder: Yes Hx Depression: Yes Hx Substance Use: No - SURGICAL HISTORY Hx Surgeries: Yes Other/Comment: left forefoot amputation on 08/06/17 - ANESTHESIA Hx Anesthesia: Yes Hx Anesthesia Reactions: No (unknown) Hx Malignant Hyperthermia: No Has any member of the family had a problem w/ anesthesia?: No Meds Allergies/Adverse Reactions: Allergies Allergy/AdvReac Type Severity Reaction Status Date / Time acetaminophen [From Tylenol] Allergy RASH Verified 07/30/17 16:06 aspirin Allergy RASH Verified 07/30/17 16:06 hydromorphone [From Dilaudid] Allergy Verified 07/30/17 16:06 ketorolac tromethamine Allergy RASH Verified 07/30/17 16:06 [From Toradol] meperidine HCl [From Demerol] Allergy RASH Verified 07/30/17 16:06 oxycodone HCl [From Percocet] Allergy RASH Verified 07/30/17 16:06 peas Allergy ANAPHYLAXIS Verified 07/30/17 16:06 propoxyphene napsylate Allergy RASH Verified 07/30/17 16:06 [From Darvocet-N] - Medications Medications: Current Medications Abacavir Sulfate (Ziagen) 300 mg PO BID [facility] PRN Reason: Protocol Last Admin: 08/22/17 10:02 Dose: 300 mg Amlodipine Besylate (Norvasc) 5 mg PO DAILY [facility] Last Admin: 08/22/17 10:02 Dose: 5 mg Calcitriol (Rocaltrol) 0.25 mcg PO TTS [facility] Dolutegravir Sodium (Tivicay) 50 mg PO DAILY [facility] PRN Reason: Protocol Last Admin: 08/22/17 10:02 Dose: 50 mg Cefepime HCl (Maxipime Iv 1 Gm Premix) 1 gm in 50 mls @ 50 mls/hr IVPB DAILY [facility] Last Admin: 08/22/17 10:10 Dose: 50 mls/hr Daptomycin 500 mg/ Sodium (Chloride) 100 mls @ 100 mls/hr IV Q48H [facility] PRN Reason: Protocol Stop: 08/27/17 15:01 Insulin Glargine (Lantus) 16 unit SC HS [facility] Last Admin: 08/21/17 21:51 Dose: Not Given Insulin Human Regular (Novolin R) 0 unit SC ACHS [facility] PRN Reason: Protocol Last Admin: 08/22/17 12:30 Dose: Not Given Labetalol HCl (Trandate) 300 mg PO Q8H [facility] Last Admin: 08/22/17 13:46 Dose: 300 mg Lamivudine (Epivir) 50 mg PO QD7 [facility] PRN Reason: Protocol Morphine Sulfate (Morphine) 1 mg IVP Q6 PRN PRN Reason: Pain, moderate (4-7) Last Admin: 08/22/17 10:05 Dose: 1 mg Ondansetron HCl (Zofran Tab) 4 mg PO Q6H PRN PRN Reason: Nausea/Vomiting Saccharomyces Boulardii (Florastor) 250 mg PO BID [facility] Last Admin: 08/22/17 10:02 Dose: 250 mg Sertraline HCl (Zoloft) 50 mg PO DAILY [facility] Last Admin: 08/22/17 10:03 Dose: 50 mg Vitamin B Complex/Vit C/Folic Acid (Nephro-Rosario) 1 tab PO 0800 [facility] Last Admin: 08/22/17 08:00 Dose: 1 tab Physical Exam - Constitutional Appears: Non-toxic, Chronically Ill - Head Exam Head Exam: NORMOCEPHALIC - Eye Exam Eye Exam: PERRL Pupil Exam: NORMAL ACCOMODATION - ENT Exam ENT Exam: Mucous Membranes Dry - Neck Exam Neck exam: Negative for: Lymphadenopathy - Respiratory Exam Respiratory Exam: Decreased Breath Sounds - Cardiovascular Exam Cardiovascular Exam: REGULAR RHYTHM - GI/Abdominal Exam GI & Abdominal Exam: Diminished Bowel Sounds, Soft. absent: Tenderness - Rectal Exam Rectal Exam: Deferred - Exam Exam: NORMAL INSPECTION - Extremities Exam Extremities exam: Positive for: pedal edema, tenderness. Negative for: calf tenderness, pedal pulses present - Back Exam Back exam: NORMAL INSPECTION. absent: CVA tenderness (L), CVA tenderness (R) - Neurological Exam Neurological exam: Alert, CN II-XII Intact, Oriented x3, Reflexes Normal - Psychiatric Exam Psychiatric exam: Depressed - Skin Skin Exam: Dry Results - Vital Signs Recent Vital Signs: Last Vital Signs Temp 98.4 F 08/22/17 07:35 Pulse 96 H 08/22/17 08:40 Resp 20 08/22/17 07:35 BP 148/82 08/22/17 13:46 Pulse Ox 95 08/22/17 07:35 - Labs Result Diagrams: 08/22/17 11:15 08/22/17 11:15 Labs: Laboratory Results - last 24 hr 08/22/17 08/22/17 11:15 11:15 WBC 12.1 H RBC 2.69 L Hgb 7.7 L Hct 23.4 L MCV 86.9 MCH 28.7 MCHC 33.1 RDW 17.6 H Plt Count 454 H MPV 6.9 L Sodium 135 Potassium 4.5 Chloride 100 Carbon Dioxide 21 L Anion Gap 18 BUN 92 H Creatinine 9.3 H* Est GFR ( Amer) 6 Est GFR (Non-Af Amer) 5 Random Glucose 95 Calcium 8.9 Total Bilirubin 1.4 H AST 34 ALT 19 Alkaline Phosphatase 227 H D Total Protein 8.4 H Albumin 2.8 L Globulin 5.6 H Albumin/Globulin Ratio 0.5 L Assessment & Plan (1) GAEL (acute kidney injury) Status: Acute Priority: Medium (2) HIV (human immunodeficiency virus) risk factors complicating Status: Acute (3) Osteomyelitis Status: Acute Priority: High Onset Date: 02/13/16 (4) Ulcer of foot Status: Acute (5) Abscess and cellulitis Status: Acute (6) Gangrene associated with type 2 diabetes mellitus Status: Acute (7) Hypertension Status: Acute (8) Left against medical advice Status: Acute - Assessment and Plan (Free Text) Assessment: cont cubicin for OM left foot needs HD
[2017-08-22] MEDS: DAPTOmycin 500 MG in Sodium Chloride 0.9% 100 ML IV SCH (15:20)
[2017-08-22 18:29] LABS: IRON 22 ug/dL (37-170)
[2017-08-22 18:38] LABS: % IRON SATURATION 12 (20-55); TOTAL IRON BINDING CAPACITY 185 ug/dL (250-450)
[2017-08-22] MEDS: (Lantus) Insulin Glargine, Recombinant SC SCH (21:48)
--- NOTE | 2017-08-22 23:39 | CON ---
DATE: NEPHROLOGY CONSULTATION HISTORY OF PRESENT ILLNESS: The patient is 36-year-old transgender female with past medical history of hypertension and diabetes since 18 years, HIV on HAART, recent left forefoot amputation due to osteomyelitis with continued foot infection, left AMA yesterday, but came straight back to the ED, Nephrology being consulted for advance CKD; the patient has been following with Nephrology. However, wants to switch to another pcts; has a long history of being impulsive and not cooperating with medical providers. The patient currently reports having some low grade fevers lately, has been on IV antibiotics. Otherwise reports appetite being fair, but has some altered taste sensation. The patient denies any shortness of breath or difficulty breathing. Denies any change in urination. No dysuria. Denies any nausea, vomiting, or diarrhea. PAST MEDICAL HISTORY: As above, also with history of depression, left lower extremity DVT; is on HAART therapy for HIV, but reports inconsistent adherence. SOCIAL HISTORY: Previous smoker. FAMILY HISTORY: Hypertension. REVIEW OF SYSTEMS: CONSTITUTIONAL: Low grade fevers. HEENT: Denies any difficulty swallowing. RESPIRATORY: Denies any dyspnea or cough. CARDIOVASCULAR: Denies chest pain or palpitation. GI: As per HPI. : Denies any change in urination. NEUROLOGIC: Reports neuropathy of the lower extremities. SKIN: Denies any ulcer of right foot. PSYCHIATRIC: History of anxiety. MUSCULOSKELETAL: Has been having intermittent pain in leg that is relieved by morphine. PHYSICAL EXAMINATION: VITAL SIGNS: This afternoon, blood pressure 148/82. Rest of the vitals from this morning, heart rate 97, respirations 20, temperature 98.4, O2 sat 95% on room air. GENERAL: No distress, resting comfortably in bed, conversing coherently in full sentences. HEENT: Moist mucous membranes. Nonicteric. No cervical lymphadenopathy. RESPIRATORY: Lungs clear to auscultation bilaterally. No rales, no rhonchi. No wheezes. CARDIOVASCULAR: Heart sounds S1 and S2 normal. No murmurs, no gallops, no rubs. GASTROINTESTINAL: Abdomen soft, nontender, nondistended. GENITOURINARY: No bladder distention. EXTREMITIES: Bilateral lower leg moderate edema, left greater than right. SKIN: Warm. No cyanosis. No ulceration of right foot. NEUROLOGIC: Mild asterixis present. Decreased sensation of right foot. PSYCHIATRIC: Normal mood and normal affect. LABORATORY DATA: CBC: WBC 12.1, hemoglobin 7.7, hematocrit 23.4, and platelets 454. Chemistry panel: Sodium 135, potassium 4.5, chloride 100, bicarbonate 21, BUN 92, creatinine 9.3, calcium 8.9, total bilirubin of 1.4, AST 34. ALT 19, alkaline phosphatase 27, and albumin 2.8. Urine protein creatinine ratio from last month, approximately 7.7 gm. ASSESSMENT AND PLAN: 1. Acute kidney injury, on chronic kidney disease, 07/08. The patient with estimated glomerular filtration rate of approximately 18 mL per minute during the early part of this month; now with worsening renal function with creatinine upto 9.3% with estimated glomerular filtration rate of 6 mL per min, etiology of acute kidney injury is not completely clear at this time. However, the patient has underlying nephrotic syndrome with advanced chronic kidney disease; in the setting any type of acute is enough to precipitate need for dialysis; currently with mild metabolic acidosis, otherwise stable electrolyte status; Lyme status also stable despite lower extremity edema, but with no respiratory symptoms. No urgent indications to initiate hemodialysis right away. However, given the patient's overall poor renal prognosis and the propensity for rapid deterioration in clinical condition, we will recommend that hemodialysis to be started as soon as possible. The patient had initially agreed for tunneled hemodialysis catheter placement. However, is hesitant right now and would wish to discuss the situation with her mother. 2. Nephrotic syndrome. The patient with underlying diabetes and with human immunodeficiency virus, not consistently on highly active antiretroviral therapy. Either one of these can be disposed to nephrotic syndrome. The patient is also on highly active antiretroviral therapy, which can also be nephrotoxic in source. Given advanced chronic kidney disease, we cannot start angiotensin-converting enzyme inhibitor or angiotensin receptor lexa; the patient may actually benefit from being initiated on hemodialysis in loosing her residual renal function as this may help stop massive proteinuria. 3. Sepsis, patient with left lower foot infection, currently on daptomycin and cefepime, both being dosed for creatinine clearance less than 15. 4. Hypertension. Blood pressure has been controlled lately on labetalol 300 mg every 8 hours and amlodipine 5 mg daily. Continue same for now. 5. Hyperphosphatemia, part of chronic kidney disease and mineral bone disorder, also with elevated PTH. Continue calcitriol 0.25 mcg 3 times for week. We will start PhosLo 2 tablets with each meal. 6. Anemia of chronic kidney disease/chronic disease. The patient has poor resistance in the setting of ongoing inflammation from foot infection. She will continue with the above (was being dosed at 20,000 units three times per week, we will double the dose to 40,000 units). 7. Pain control. The patient is currently on morphine 1 mg every 6 hours p.r.n. If patient is repeatedly getting morphine, should switch to Dilaudid as the metabolism for morphine can accumulate the renal failure. Thank you for this consult. We will be following up closely. Karson Brock MD
[2017-08-23] MEDS: Morphine 4 MG/ML VIAL IVP PRN ×3 (04:55→16:47)
[2017-08-23 06:27] LABS: BASO # 0.1 K/uL (0.0-0.2); EOS # 0.6 K/uL (0.0-0.7); EOS % 5.9 % (0.0-4.0); HEMOGLOBIN 7.7 g/dL (11.0-16.0); LYMPH # 2.7 K/uL (1.0-4.3); LYMPH % 25.8 % (20.0-40.0); MEAN CORPUSCULAR HEMOGLOBIN 29.2 pg (27.0-31.0); MEAN CORPUSCULAR HGB CONC 33.5 g/dL (33.0-37.0); MEAN PLATELET VOLUME 6.8 fL (7.2-11.7); MONO # 1.2 K/uL (0.0-0.8); MONO % 11.8 % (0.0-10.0); NEUT # 5.9 K/uL (1.8-7.0); NEUT % 55.5 % (50.0-75.0); NRBC % 0.1 % (0.0-2.0); RBC 2.65 Mil/uL (3.80-5.20); RED CELL DISTRIBUTION WIDTH 18.3 % (11.5-14.5); WHITE BLOOD COUNT 10.6 K/uL (4.8-10.8)
[2017-08-23 06:50] LABS: ALB/GLOB RATIO 0.6 (1.0-2.1); ALBUMIN 3.1 g/dL (3.5-5.0); CALCIUM 8.6 mg/dl (8.6-10.4)
[2017-08-23] MEDS: Multivitamin Vitamin B Complex (Nephro-Vite) Tab PO SCH (07:49)
[2017-08-23] MEDS: (Novolin R) Insulin Human Regular 100 units/ml vial SC SCH ×4 (07:52→22:30)
[2017-08-23] MEDS: Saccharomyces Boulardi 250 mg Cap PO SCH ×2 (09:41→17:15)
[2017-08-23] MEDS: Cefepime IV 1 gm in Dextrose 1 GM/50 ML BAG IVPB SCH (09:43)
[2017-08-23] MEDS ORDERED: DiphenhydrAMINE 50 mg/ml Inj IVP PRN (10:36)
[2017-08-23] MEDS: Labetalol Hydrochloride 300 mg Tab PO SCH ×3 (10:45→22:30)
[2017-08-23 11:28] LABS: IRON 24 ug/dL (37-170)
[2017-08-23 11:45] LABS: % IRON SATURATION 13 (20-55); TOTAL IRON BINDING CAPACITY 180 ug/dL (250-450)
--- NOTE | 2017-08-23 13:07 | CP.PCM.PN ---
Subjective - Date & Time of Evaluation Date of Evaluation: 08/23/17 Time of Evaluation: 09:00 - Subjective Subjective: refusing HD consider palliative care and renal consults iv antibiotics renewed Objective - Vital Signs/Intake and Output Vital Signs (last 24 hours): Temp Pulse Resp BP Pulse Ox 99.2 F 91 H 20 133/75 99 08/23/17 07:00 08/23/17 11:50 08/23/17 07:00 08/23/17 07:00 08/23/17 07:00 Intake and Output: 08/23/17 08/23/17 06:59 18:59 Intake Total 240 Balance 240 - Medications Medications: Current Medications Abacavir Sulfate (Ziagen) 300 mg PO BID [facility] PRN Reason: Protocol Last Admin: 08/23/17 09:41 Dose: 300 mg Amlodipine Besylate (Norvasc) 5 mg PO DAILY [facility] Last Admin: 08/23/17 09:44 Dose: 5 mg Calcitriol (Rocaltrol) 0.25 mcg PO TTS [facility] Calcium Acetate (Phoslo) 1,334 mg PO TIDCC [facility] Last Admin: 08/23/17 12:12 Dose: 1,334 mg Diphenhydramine HCl (Benadryl) 25 mg IVP Q6 PRN PRN Reason: Itching / Pruritus Dolutegravir Sodium (Tivicay) 50 mg PO DAILY [facility] PRN Reason: Protocol Last Admin: 08/23/17 09:41 Dose: 50 mg Cefepime HCl (Maxipime Iv 1 Gm Premix) 1 gm in 50 mls @ 50 mls/hr IVPB DAILY [facility] Last Admin: 08/23/17 09:43 Dose: 50 mls/hr Daptomycin 500 mg/ Sodium (Chloride) 100 mls @ 100 mls/hr IV Q48H [facility] PRN Reason: Protocol Stop: 08/27/17 15:01 Last Admin: 08/22/17 15:20 Dose: 100 mls/hr Insulin Glargine (Lantus) 16 unit SC HS [facility] Last Admin: 08/22/17 21:48 Dose: Not Given Insulin Human Regular (Novolin R) 0 unit SC ACHS [facility] PRN Reason: Protocol Last Admin: 08/23/17 12:22 Dose: Not Given Labetalol HCl (Normodyne) 300 mg PO Q8H [facility] Last Admin: 08/23/17 10:45 Dose: 300 mg Lamivudine (Epivir) 50 mg PO QD7 [facility] PRN Reason: Protocol Morphine Sulfate (Morphine) 1 mg IVP Q6H PRN PRN Reason: Pain, moderate (4-7) Last Admin: 08/23/17 10:11 Dose: 1 mg Ondansetron HCl (Zofran Inj) 4 mg IVP Q8H PRN PRN Reason: Nausea/Vomiting Last Admin: 08/22/17 18:08 Dose: 4 mg Saccharomyces Boulardii (Florastor) 250 mg PO BID [facility] Last Admin: 08/23/17 09:41 Dose: 250 mg Sertraline HCl (Zoloft) 50 mg PO DAILY [facility] Last Admin: 08/23/17 09:42 Dose: 50 mg Vitamin B Complex/Vit C/Folic Acid (Nephro-Rosario) 1 tab PO 0800 [facility] Last Admin: 08/23/17 07:49 Dose: 1 tab - Labs Labs: 08/23/17 06:20 08/23/17 11:03 Assessment and Plan (1) GAEL (acute kidney injury) Status: Acute (2) HIV (human immunodeficiency virus) risk factors complicating Status: Acute (3) Osteomyelitis Status: Acute (4) Ulcer of foot Status: Acute (5) Abscess and cellulitis Status: Acute (6) Gangrene associated with type 2 diabetes mellitus Status: Acute (7) Hypertension Status: Acute (8) Left against medical advice Status: Acute
--- NOTE | 2017-08-23 15:10 | CP.PCM.PN ---
Subjective - Date & Time of Evaluation Date of Evaluation: 08/23/17 Time of Evaluation: 11:07 - Subjective Subjective: Podiatry Progress note for Dr. 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 Patient resting in bed comfortably, NAD. AAOx3. Patient reports that she fell backwards on Wednesday while trying to leave the hospital against medical advice. No pain to the foot today. Reports she has been walking a little on the right foot. Denies of recent F/N/V/C/SOB/CP. No new pedal complains. Objective - Vital Signs/Intake and Output Vital Signs (last 24 hours): Temp Pulse Resp BP Pulse Ox 99.2 F 91 H 20 133/75 99 08/23/17 07:00 08/23/17 11:50 08/23/17 07:00 08/23/17 07:00 08/23/17 07:00 Intake and Output: 08/23/17 08/23/17 06:59 18:59 Intake Total 240 Balance 240 - Medications Medications: Current Medications Abacavir Sulfate (Ziagen) 300 mg PO BID [facility] PRN Reason: Protocol Last Admin: 08/23/17 09:41 Dose: 300 mg Amlodipine Besylate (Norvasc) 5 mg PO DAILY [facility] Last Admin: 08/23/17 09:44 Dose: 5 mg Calcitriol (Rocaltrol) 0.25 mcg PO TTS [facility] Calcium Acetate (Phoslo) 1,334 mg PO TIDCC [facility] Last Admin: 08/23/17 12:12 Dose: 1,334 mg Diphenhydramine HCl (Benadryl) 25 mg IVP Q6 PRN PRN Reason: Itching / Pruritus Dolutegravir Sodium (Tivicay) 50 mg PO DAILY [facility] PRN Reason: Protocol Last Admin: 08/23/17 09:41 Dose: 50 mg Cefepime HCl (Maxipime Iv 1 Gm Premix) 1 gm in 50 mls @ 50 mls/hr IVPB DAILY [facility] Last Admin: 08/23/17 09:43 Dose: 50 mls/hr Daptomycin 500 mg/ Sodium (Chloride) 100 mls @ 100 mls/hr IV Q48H [facility] PRN Reason: Protocol Stop: 08/27/17 15:01 Last Admin: 08/22/17 15:20 Dose: 100 mls/hr Insulin Glargine (Lantus) 16 unit SC HS [facility] Last Admin: 08/22/17 21:48 Dose: Not Given Insulin Human Regular (Novolin R) 0 unit SC ACHS [facility] PRN Reason: Protocol Last Admin: 08/23/17 12:22 Dose: Not Given Labetalol HCl (Normodyne) 300 mg PO Q8H [facility] Last Admin: 08/23/17 10:45 Dose: 300 mg Lamivudine (Epivir) 50 mg PO QD7 [facility] PRN Reason: Protocol Morphine Sulfate (Morphine) 1 mg IVP Q6H PRN PRN Reason: Pain, moderate (4-7) Last Admin: 08/23/17 10:11 Dose: 1 mg Ondansetron HCl (Zofran Inj) 4 mg IVP Q8H PRN PRN Reason: Nausea/Vomiting Last Admin: 08/22/17 18:08 Dose: 4 mg Saccharomyces Boulardii (Florastor) 250 mg PO BID [facility] Last Admin: 08/23/17 09:41 Dose: 250 mg Sertraline HCl (Zoloft) 50 mg PO DAILY [facility] Last Admin: 08/23/17 09:42 Dose: 50 mg Vitamin B Complex/Vit C/Folic Acid (Nephro-Rosario) 1 tab PO 0800 [facility] Last Admin: 08/23/17 07:49 Dose: 1 tab - Labs Labs: 08/23/17 06:20 08/23/17 11:03 - Constitutional Appears: Well, Non-toxic, No Acute Distress - Head Exam Head Exam: ATRAUMATIC - Extremities Exam Additional comments: Left Lower Extremity exam: dressing appears c/d/i with no strikethrough evident VASC- DP pulse faintly palpable, skin temp runs warm to warm, nonpitting edema noted to left leg extending from knee joint distally into stump DERM- surgical site remains intact with surgical site well coapted along medial aspect with no evidence of wound dehiscence, plantarlateral surgical site appears macerated with gross lichenification of pedal skin; the lateral distal stump site has a circular opening which measures approx 2 cm x 2 cm which appears to be granulating inwards, mild amount of serosanginous drainage noted from wound, moderate malodor present NEURO- gross and protective pedal sensation are diminished ORTHO- minimal tenderness noted to palpation of the surgical site laterally and plantarly - Neurological Exam Neurological Exam: Alert, Awake, Oriented x3 - Psychiatric Exam Psychiatric exam: Normal Affect, Normal Mood - Skin Skin Exam: Warm Assessment and Plan - Assessment and Plan (Free Text) Assessment: 36 year old female patient seen 17 days s/p Chopart's amputation (DOS 08/06/17) Plan: Patient examined and evaluated at bedside Discussed plan with attending, Dr. Coy Labs and vitals reviewed - afebrile; WBC 10.6 Continue local wound care - saline cleanse, betadine soaked gauze, ABD, kerlix, RAFFY Intra-op wound cultures: Coagulase Neg Staph c/w IV abx as per ID Dr. Del Valle Continue pain mgt per primary team Patient may be PWB to left heel in surgical shoe with the assistance of a walker Podiatry will continue to follow
--- NOTE | 2017-08-23 15:27 | CP.PCM.PN ---
Subjective - Date & Time of Evaluation Date of Evaluation: 08/23/17 Time of Evaluation: 15:23 - Subjective Subjective: PT SEEN IN BED TODAY COMFORTABLE. C/O THAT SHE IS MISERABLE IN THIS HOSPITAL WITH THE CARE SHE IS RECEIVING AND REQUESTS TO BE TRANSFERRED TO ANOTHER HOSPITAL; "I WANT TO BE TRANSFERRED TO [place]". I EXPLAINED AT LENGTH TO THE PT THE TRANSFER PROCESS AND THAT SINCE THIS IS NOT AN EMERGENCY TRANSFER AND ONE FOR CONTINUED CARE/MANAGEMENT, SHE WOULD NEED TO FIND AN ACCEPTING MD AT [place]. PT CONTACTED A FRIEND ON THE PHONE WHILE I WAS WITH HER AND THE FRIEND WILL CONTACT HER TODAY WITH THE NAME OF A MD. PT VERBALIZES UNDERSTANDING THAT SHE NEEDS THIS MD TO ACCEPT HER AT THE OTHER FACILITY IN ORDER FOR TRANSFER TO HAPPEN. I LEFT MESSAGE FOR DR. ROSS REGARDING THIS WELL AND HAVE UPDATED THE CM AND SW. NO FURTHER ORDERS. Objective - Vital Signs/Intake and Output Vital Signs (last 24 hours): Temp Pulse Resp BP Pulse Ox 99.2 F 91 H 20 133/75 99 08/23/17 07:00 08/23/17 11:50 08/23/17 07:00 08/23/17 07:00 08/23/17 07:00 Intake and Output: 08/23/17 08/23/17 06:59 18:59 Intake Total 240 Balance 240 - Medications Medications: Current Medications Abacavir Sulfate (Ziagen) 300 mg PO BID [facility] PRN Reason: Protocol Last Admin: 08/23/17 09:41 Dose: 300 mg Amlodipine Besylate (Norvasc) 5 mg PO DAILY [facility] Last Admin: 08/23/17 09:44 Dose: 5 mg Calcitriol (Rocaltrol) 0.25 mcg PO TTS [facility] Calcium Acetate (Phoslo) 1,334 mg PO TIDCC [facility] Last Admin: 08/23/17 12:12 Dose: 1,334 mg Diphenhydramine HCl (Benadryl) 25 mg IVP Q6 PRN PRN Reason: Itching / Pruritus Dolutegravir Sodium (Tivicay) 50 mg PO DAILY [facility] PRN Reason: Protocol Last Admin: 08/23/17 09:41 Dose: 50 mg Cefepime HCl (Maxipime Iv 1 Gm Premix) 1 gm in 50 mls @ 50 mls/hr IVPB DAILY [facility] Last Admin: 08/23/17 09:43 Dose: 50 mls/hr Daptomycin 500 mg/ Sodium (Chloride) 100 mls @ 100 mls/hr IV Q48H [facility] PRN Reason: Protocol Stop: 08/27/17 15:01 Last Admin: 08/22/17 15:20 Dose: 100 mls/hr Insulin Glargine (Lantus) 16 unit SC HS [facility] Last Admin: 08/22/17 21:48 Dose: Not Given Insulin Human Regular (Novolin R) 0 unit SC ACHS [facility] PRN Reason: Protocol Last Admin: 08/23/17 12:22 Dose: Not Given Labetalol HCl (Normodyne) 300 mg PO Q8H [facility] Last Admin: 08/23/17 10:45 Dose: 300 mg Lamivudine (Epivir) 50 mg PO QD7 [facility] PRN Reason: Protocol Morphine Sulfate (Morphine) 1 mg IVP Q6H PRN PRN Reason: Pain, moderate (4-7) Last Admin: 08/23/17 10:11 Dose: 1 mg Ondansetron HCl (Zofran Inj) 4 mg IVP Q8H PRN PRN Reason: Nausea/Vomiting Last Admin: 08/22/17 18:08 Dose: 4 mg Saccharomyces Boulardii (Florastor) 250 mg PO BID [facility] Last Admin: 08/23/17 09:41 Dose: 250 mg Sertraline HCl (Zoloft) 50 mg PO DAILY [facility] Last Admin: 08/23/17 09:42 Dose: 50 mg Vitamin B Complex/Vit C/Folic Acid (Nephro-Rosario) 1 tab PO 0800 [facility] Last Admin: 08/23/17 07:49 Dose: 1 tab - Labs Labs: 08/23/17 06:20 08/23/17 11:03
[2017-08-23] MEDS ORDERED: Epoetin Alfa Dialysis 40000 UNIT/ml Inj SC ONE (17:58)
[2017-08-23] MEDS ORDERED: Ferric Sodium Gluconat Complex 62.5 mg/5 ml Vial IVPB ONE (17:59)
--- NOTE | 2017-08-23 18:01 | HP ---
HISTORY OF PRESENT ILLNESS: The patient is 36 years old. The patient was seen and examined at bedside on 08/22/2017. The patient is 36 years old with past medical history of HIV, renal failure, recent amputation of the left foot, came to the emergency room department for an evaluation. The patient was admitted inpatient, upset with the staff about her care and signed out against medical advice, walked out, and turned around and wished to be readmitted. Noticed that the patient is starting dialysis this upcoming Wednesday and now no new complaints. The patient was getting treatment from Dr. Jarred Del Valle and Dr. Lorenz Podiatrchris. PAST MEDICAL HISTORY: Depression, diabetes mellitus, deep vein thrombosis, HIV, hypertension, peripheral edema, chronic pain syndrome. FAMILY HISTORY: According to the patient, history of ND, coronary artery disease, diabetes mellitus, and hypertension. SOCIAL HISTORY: Tobacco, no. Alcohol, no. Substance use, occasionally. REVIEW OF SYSTEMS: The patient was seen and examined at the bedside, looking comfortable. Complaining about pain in the foot. No fever, no chills. No nausea, vomiting, or diarrhea. No hematuria or hematochezia. No headache. No dizziness. PHYSICAL EXAMINATION: VITAL SIGNS: Temperature 99.2, pulse 117, respiratory rate 20, blood pressure 120/55, pulse oximetry 97%. HEENT: Head: Normocephalic, atraumatic. Eyes: PERRLA. Extraocular movements intact. Conjunctivae clear. Nose: Patent. Mucous membranes moist. NECK: Supple. No carotid bruits, JVD, or thyromegaly. CHEST: Bilaterally symmetrical. HEART: S1 and S2 positive. LUNGS: Clear to auscultation. ABDOMEN: Soft. Bowel sounds positive. No organomegaly. EXTREMITIES: Upper extremity, no edema, no cyanosis. Left foot has dressing. LABORATORY DATA: White blood cells 12.1, hemoglobin 7.7, hematocrit 23.4, platelets 454. Sodium 135, potassium 4.5, BUN 92, creatinine 9.6, glucose 95. ASSESSMENT AND PLAN: Zia Johnson is a 36-year-old patient with leukocytosis; anemia; thrombocytosis; renal insufficiency, acute on chronic; has hypertension; acute kidney injury; human immunodeficiency virus; osteomyelitis; ulcer of the left foot; abscess and cellulitis; gangrene associated with type 2 diabetes mellitus. The patient was getting treatment, left against medical advice, came back. We will continue Cubicin for osteomyelitis of left foot. Need hemodialysis. Call Nephrology on the case, Dr. Karson Brock. The patient was seen by Jarred Del Valle MD, Infectious Disease. The patient is a transgender female, diabetes since 18 years old; human immunodeficiency virus, on highly active antiretroviral therapy medication. The patient used to have another assessment nurse and now wanted to switch to another assessment nurse. She has long history of being impulsive and not cooperative with the medical providers. Nephrotic syndrome, sepsis, hyperphosphatemia. Need pain control. Gastrointestinal and deep venous thrombosis prophylaxis. Repeat labs. We will follow up. Alexandria Simmons MD MTD[facility]ke[facility]
--- NOTE | 2017-08-23 18:15 | CP.PCM.PN ---
Subjective - Date & Time of Evaluation Date of Evaluation: 08/23/17 Time of Evaluation: 13:00 - Subjective Subjective: Denies sob; tolerating diet without nausea/vomiting; not ambulating; still undecided about getting HD catheter placement (patient awaiting discussion with mother); Objective - Vital Signs/Intake and Output Vital Signs (last 24 hours): Temp Pulse Resp BP Pulse Ox 98.2 F 80 20 112/69 99 08/23/17 16:00 08/23/17 16:00 08/23/17 16:00 08/23/17 16:00 08/23/17 16:00 Intake and Output: 08/23/17 08/23/17 06:59 18:59 Intake Total 240 Balance 240 - Medications Medications: Current Medications Abacavir Sulfate (Ziagen) 300 mg PO BID [facility] PRN Reason: Protocol Last Admin: 08/23/17 17:15 Dose: 300 mg Amlodipine Besylate (Norvasc) 5 mg PO DAILY [facility] Last Admin: 08/23/17 09:44 Dose: 5 mg Calcitriol (Rocaltrol) 0.25 mcg PO TTS [facility] Calcium Acetate (Phoslo) 1,334 mg PO TIDCC [facility] Last Admin: 08/23/17 16:50 Dose: 1,334 mg Diphenhydramine HCl (Benadryl) 25 mg IVP Q6 PRN PRN Reason: Itching / Pruritus Dolutegravir Sodium (Tivicay) 50 mg PO DAILY [facility] PRN Reason: Protocol Last Admin: 08/23/17 09:41 Dose: 50 mg Epoetin Anival (Procrit) 40,000 unit SC ONCE ONE Stop: 08/23/17 17:59 Cefepime HCl (Maxipime Iv 1 Gm Premix) 1 gm in 50 mls @ 50 mls/hr IVPB DAILY [facility] Last Admin: 08/23/17 09:43 Dose: 50 mls/hr Daptomycin 500 mg/ Sodium (Chloride) 100 mls @ 100 mls/hr IV Q48H [facility] PRN Reason: Protocol Stop: 08/27/17 15:01 Last Admin: 08/22/17 15:20 Dose: 100 mls/hr Insulin Glargine (Lantus) 16 unit SC HS [facility] Last Admin: 08/22/17 21:48 Dose: Not Given Insulin Human Regular (Novolin R) 0 unit SC ACHS [facility] PRN Reason: Protocol Last Admin: 08/23/17 16:41 Dose: Not Given Labetalol HCl (Normodyne) 300 mg PO Q8H [facility] Last Admin: 08/23/17 10:45 Dose: 300 mg Lamivudine (Epivir) 50 mg PO QD7 [facility] PRN Reason: Protocol Morphine Sulfate (Morphine) 1 mg IVP Q6H PRN PRN Reason: Pain, moderate (4-7) Last Admin: 08/23/17 16:47 Dose: 1 mg Ondansetron HCl (Zofran Inj) 4 mg IVP Q8H [facility]N PRN Reason: Nausea/Vomiting Last Admin: 08/22/17 18:08 Dose: 4 mg Saccharomyces Boulardii (Florastor) 250 mg PO BID [facility] Last Admin: 08/23/17 17:15 Dose: 250 mg Sertraline HCl (Zoloft) 50 mg PO DAILY [facility] Last Admin: 08/23/17 09:42 Dose: 50 mg Vitamin B Complex/Vit C/Folic Acid (Nephro-Rosario) 1 tab PO 0800 [facility] Last Admin: 08/23/17 07:49 Dose: 1 tab - Labs Labs: 08/23/17 06:20 08/23/17 11:03 - Constitutional Appears: Non-toxic, No Acute Distress - Eye Exam Eye Exam: absent: Scleral icterus - ENT Exam ENT Exam: Mucous Membranes Moist - Respiratory Exam Respiratory Exam: Clear to Ausculation Bilateral. absent: Respiratory Distress - Cardiovascular Exam Cardiovascular Exam: RRR, +S1, +S2 - GI/Abdominal Exam GI & Abdominal Exam: Soft. absent: Distended, Tenderness - Extremities Exam Additional comments: mild/moderate lower leg edema (L>R); - Neurological Exam Neurological Exam: Alert, Awake - Psychiatric Exam Psychiatric exam: absent: Agitated - Skin Skin Exam: Warm. absent: Cyanosis Assessment and Plan (1) GAEL (acute kidney injury) Assessment & Plan: GAEL on CKD IV/V; no overt uremic signs/symptoms and relatively stable electrolyte/volume status; therefore no urgent indication to initiate HD right away, but patient should be started on HD soon to avoid an emergent situation ( discussed with patient) and to better manage CKD; discussed with patient at length but patient is awaiting personal consultation with mother; -daily chem panel -avoid nephrotoxic agents (NSAIDS, phosphate enema); Status: Acute (2) CKD (chronic kidney disease), stage IV Assessment & Plan: With nephrotic syndrome and severe hypoalbuminemia; no treatment would salvage kidney at this late stage but patient may benefit from renal biopsy for future prognostic purposes (useful to predict transplant outcome); should prepare for group home dialysis (AVF creation, though patient is very hesitant to make any decision); Status: Acute (3) Hypertensive CKD (chronic kidney disease) Assessment & Plan: BP controlled on labetalol, continue same; Status: Chronic (4) Anemia in CKD (chronic kidney disease) Assessment & Plan: Hgb well below goal, giving dose of IV iron today; will need higher doses of EPO (was on 20,000 u qTTS, will try to give higher dose); Status: Acute (5) Chronic kidney disease-mineral and bone disorder Assessment & Plan: Awaiting PTH level, continue phoslo 2 tab w/ meals and ergocalciferol weekly; Status: Acute (6) Abscess and cellulitis Assessment & Plan: On cefepime and dapto, dosed for CrCl < 15 ml/min; Status: Acute (7) HIV (human immunodeficiency virus infection) Status: Chronic
[2017-08-23] MEDS ORDERED: Epoetin Alfa 10,000 unit/ml Dialysis SC SCH (18:30)
[2017-08-23] MEDS ORDERED: Morphine 4 MG/ML VIAL IVP STA (21:17)
[2017-08-23] MEDS: (Lantus) Insulin Glargine, Recombinant SC SCH (22:29)
[2017-08-24] MEDS: Morphine 4 MG/ML VIAL IVP PRN ×4 (04:18→23:53)
[2017-08-24] MEDS: Labetalol Hydrochloride 300 mg Tab PO SCH ×3 (05:51→20:59)
[2017-08-24] MEDS: (Novolin R) Insulin Human Regular 100 units/ml vial SC SCH ×4 (08:29→22:53)
[2017-08-24] MEDS: Multivitamin Vitamin B Complex (Nephro-Vite) Tab PO SCH (08:53)
[2017-08-24] MEDS ORDERED: Epoetin Alfa 40000 UNIT/ml Inj SC ONE (09:00)
[2017-08-24] MEDS: Saccharomyces Boulardi 250 mg Cap PO SCH ×2 (09:51→17:27)
--- NOTE | 2017-08-24 10:24 | CP.PCM.PN ---
Subjective - Date & Time of Evaluation Date of Evaluation: 08/24/17 Time of Evaluation: 10:17 - Subjective Subjective: Podiatry Progress note for Dr. 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 Patient resting in bed comfortably, NAD. AAOx3. Patient reports that she fell backwards on Wednesday while trying to leave the hospital against medical advice. No pain to the foot today. Reports she has been walking a little on the right foot. Denies of recent F/N/V/C/SOB/CP. No new pedal complains. Objective - Vital Signs/Intake and Output Vital Signs (last 24 hours): Temp Pulse Resp BP Pulse Ox 99.0 F 91 H 20 147/77 97 08/24/17 08:51 08/24/17 08:51 08/24/17 08:51 08/24/17 08:51 08/24/17 08:51 Intake and Output: 08/24/17 08/24/17 06:59 18:59 Intake Total 600 Output Total 1100 Balance -500 - Medications Medications: Current Medications Abacavir Sulfate (Ziagen) 300 mg PO BID [facility] PRN Reason: Protocol Last Admin: 08/24/17 09:51 Dose: 300 mg Amlodipine Besylate (Norvasc) 5 mg PO DAILY [facility] Last Admin: 08/24/17 09:52 Dose: 5 mg Calcitriol (Rocaltrol) 0.25 mcg PO TTS [facility] Last Admin: 08/24/17 09:51 Dose: 0.25 mcg Calcium Acetate (Phoslo) 1,334 mg PO TIDCC [facility] Last Admin: 08/24/17 08:53 Dose: 1,334 mg Diphenhydramine HCl (Benadryl) 25 mg IVP Q6 PRN PRN Reason: Itching / Pruritus Dolutegravir Sodium (Tivicay) 50 mg PO DAILY [facility] PRN Reason: Protocol Last Admin: 08/24/17 09:51 Dose: 50 mg Cefepime HCl (Maxipime Iv 1 Gm Premix) 1 gm in 50 mls @ 50 mls/hr IVPB DAILY [facility] Last Admin: 08/23/17 09:43 Dose: 50 mls/hr Daptomycin 500 mg/ Sodium (Chloride) 100 mls @ 100 mls/hr IV Q48H [facility] PRN Reason: Protocol Stop: 08/27/17 15:01 Last Admin: 08/22/17 15:20 Dose: 100 mls/hr Insulin Glargine (Lantus) 16 unit SC HS [facility] Last Admin: 08/23/17 22:29 Dose: Not Given Insulin Human Regular (Novolin R) 0 unit SC ACHS [facility] PRN Reason: Protocol Last Admin: 08/24/17 08:29 Dose: Not Given Labetalol HCl (Normodyne) 300 mg PO Q8 [facility] Last Admin: 08/24/17 05:51 Dose: 300 mg Lamivudine (Epivir) 50 mg PO QD7 [facility] PRN Reason: Protocol Morphine Sulfate (Morphine) 1 mg IVP Q6H [facility] PRN Reason: Pain, moderate (4-7) Last Admin: 08/24/17 04:18 Dose: 1 mg Ondansetron HCl (Zofran Inj) 4 mg IVP Q8H [facility] PRN Reason: Nausea/Vomiting Last Admin: 08/22/17 18:08 Dose: 4 mg Saccharomyces Boulardii (Florastor) 250 mg PO BID [facility] Last Admin: 08/24/17 09:51 Dose: 250 mg Sertraline HCl (Zoloft) 50 mg PO DAILY [facility] Last Admin: 08/24/17 09:52 Dose: 50 mg Vitamin B Complex/Vit C/Folic Acid (Nephro-Rosario) 1 tab PO 0800 [facility] Last Admin: 08/24/17 08:53 Dose: 1 tab - Labs Labs: 08/23/17 06:20 08/23/17 11:03 - Constitutional Appears: Well, Non-toxic, No Acute Distress - Head Exam Head Exam: ATRAUMATIC - Extremities Exam Additional comments: Left Lower Extremity exam: dressing appears c/d/i with no strikethrough evident VASC- DP pulse faintly palpable, skin temp runs warm to warm, nonpitting edema noted to left leg extending from knee joint distally into stump DERM- surgical site remains intact with surgical site well coapted along medial aspect with no evidence of wound dehiscence, plantarlateral surgical site appears macerated with gross lichenification of pedal skin; the lateral distal stump site has a circular opening which measures approx 2 cm x 2 cm which appears to be granulating inwards, mild amount of serosanginous drainage noted from wound, moderate malodor present NEURO- gross and protective pedal sensation are diminished ORTHO- minimal tenderness noted to palpation of the surgical site laterally and plantarly - Neurological Exam Neurological Exam: Alert, Awake, Oriented x3 - Psychiatric Exam Psychiatric exam: Normal Affect, Normal Mood - Skin Skin Exam: Normal Color, Warm Assessment and Plan - Assessment and Plan (Free Text) Assessment: 36 year old female patient seen 18 days s/p Chopart's amputation (DOS 08/06/17) Plan: Patient examined and evaluated at bedside Discussed plan with attending, Dr. Coy Labs and vitals reviewed - afebrile Continue local wound care - saline cleanse, betadine soaked gauze, ABD, kerlix, RAFFY Intra-op wound cultures: Coagulase Neg Staph c/w IV abx as per ID Dr. Del Valle Continue pain mgt per primary team Patient may be PWB to left heel in surgical shoe with the assistance of a walker Podiatry will continue to follow
[2017-08-24] MEDS: Cefepime IV 1 gm in Dextrose 1 GM/50 ML BAG IVPB SCH (10:49)
--- NOTE | 2017-08-24 11:10 | RAD ---
HISTORY: placement of picc line position COMPARISON: 07/30/2017. FINDINGS: The right PICC line terminates in the SVC. LUNGS: The lungs are well inflated and clear. No focal consolidation. PLEURA: No significant pleural effusion identified, no pneumothorax apparent. CARDIOVASCULAR: The heart remains enlarged. OSSEOUS STRUCTURES: No significant abnormalities. VISUALIZED UPPER ABDOMEN: Normal. OTHER FINDINGS: None. IMPRESSION: Right PICC line terminates in the SVC. No active pulmonary disease.
--- NOTE | 2017-08-24 13:24 | CP.PCM.PN ---
Subjective - Date & Time of Evaluation Date of Evaluation: 08/24/17 Time of Evaluation: 08:00 - Subjective Subjective: events noted IV rx in progress wants to discuss options with mother beforeed HD Objective - Vital Signs/Intake and Output Vital Signs (last 24 hours): Temp Pulse Resp BP Pulse Ox 99.0 F 87 20 147/77 97 08/24/17 08:51 08/24/17 12:00 08/24/17 08:51 08/24/17 08:51 08/24/17 08:51 Intake and Output: 08/24/17 08/24/17 06:59 18:59 Intake Total 600 Output Total 1100 Balance -500 - Medications Medications: Current Medications Abacavir Sulfate (Ziagen) 300 mg PO BID [facility] PRN Reason: Protocol Last Admin: 08/24/17 09:51 Dose: 300 mg Amlodipine Besylate (Norvasc) 5 mg PO DAILY [facility] Last Admin: 08/24/17 09:52 Dose: 5 mg Calcitriol (Rocaltrol) 0.25 mcg PO TTS [facility] Last Admin: 08/24/17 09:51 Dose: 0.25 mcg Calcium Acetate (Phoslo) 1,334 mg PO TIDCC [facility] Last Admin: 08/24/17 12:12 Dose: 1,334 mg Diphenhydramine HCl (Benadryl) 25 mg IVP Q6 PRN PRN Reason: Itching / Pruritus Dolutegravir Sodium (Tivicay) 50 mg PO DAILY [facility] PRN Reason: Protocol Last Admin: 08/24/17 09:51 Dose: 50 mg Cefepime HCl (Maxipime Iv 1 Gm Premix) 1 gm in 50 mls @ 50 mls/hr IVPB DAILY [facility] Last Admin: 08/24/17 10:49 Dose: 50 mls/hr Daptomycin 500 mg/ Sodium (Chloride) 100 mls @ 100 mls/hr IV Q48H [facility] PRN Reason: Protocol Stop: 08/27/17 15:01 Last Admin: 08/22/17 15:20 Dose: 100 mls/hr Insulin Glargine (Lantus) 16 unit SC HS [facility] Last Admin: 08/23/17 22:29 Dose: Not Given Insulin Human Regular (Novolin R) 0 unit SC ACHS [facility] PRN Reason: Protocol Last Admin: 08/24/17 11:44 Dose: Not Given Labetalol HCl (Normodyne) 300 mg PO Q8 [facility] Last Admin: 08/24/17 05:51 Dose: 300 mg Lamivudine (Epivir) 50 mg PO QD7 [facility] PRN Reason: Protocol Morphine Sulfate (Morphine) 1 mg IVP Q6H PRN PRN Reason: Pain, moderate (4-7) Last Admin: 08/24/17 10:46 Dose: 1 mg Ondansetron HCl (Zofran Inj) 4 mg IVP Q8H PRN PRN Reason: Nausea/Vomiting Last Admin: 08/22/17 18:08 Dose: 4 mg Saccharomyces Boulardii (Florastor) 250 mg PO BID [facility] Last Admin: 08/24/17 09:51 Dose: 250 mg Sertraline HCl (Zoloft) 50 mg PO DAILY [facility] Last Admin: 08/24/17 09:52 Dose: 50 mg Vitamin B Complex/Vit C/Folic Acid (Nephro-Rosario) 1 tab PO 0800 [facility] Last Admin: 08/24/17 08:53 Dose: 1 tab - Labs Labs: 08/23/17 06:20 08/23/17 11:03 - Constitutional Appears: Non-toxic, Chronically Ill - Head Exam Head Exam: NORMOCEPHALIC - Eye Exam Eye Exam: PERRL - ENT Exam ENT Exam: Mucous Membranes Dry - Neck Exam Neck Exam: absent: Lymphadenopathy - Respiratory Exam Respiratory Exam: Decreased Breath Sounds - Cardiovascular Exam Cardiovascular Exam: REGULAR RHYTHM - GI/Abdominal Exam GI & Abdominal Exam: Distended Assessment and Plan (1) GAEL (acute kidney injury) Status: Acute (2) HIV (human immunodeficiency virus) risk factors complicating Status: Acute (3) Osteomyelitis Status: Acute (4) Ulcer of foot Status: Acute (5) Abscess and cellulitis Status: Acute (6) Gangrene associated with type 2 diabetes mellitus Status: Acute (7) Hypertension Status: Acute (8) Left against medical advice Status: Acute
[2017-08-24 13:32] LABS: HEMOGLOBIN 7.6 g/dL (11.0-16.0); MEAN CELL VOLUME 86.6 fL (81.0-99.0); MEAN CORPUSCULAR HEMOGLOBIN 28.9 pg (27.0-31.0); MEAN CORPUSCULAR HGB CONC 33.4 g/dL (33.0-37.0); MEAN PLATELET VOLUME 6.4 fL (7.2-11.7); RBC 2.64 Mil/uL (3.80-5.20); WHITE BLOOD COUNT 10.3 K/uL (4.8-10.8)
[2017-08-24 14:02] LABS: CALCIUM 8.6 mg/dl (8.6-10.4)
[2017-08-24] MEDS: DAPTOmycin 500 MG in Sodium Chloride 0.9% 100 ML IV SCH (14:59)
[2017-08-24 15:51] LABS: % CD4 (T HELPER CELL) 18 Percent (30-61); % CD8 (SUPPRESSOR T CELL) 71 Percent (12-42); ABSOLUTE CD4 CELLS 416 Cells/mcL (490-1740); ABSOLUTE CD8 CELLS 1589 Cells/mcL (180-1170); ABSOLUTE LYMPHOCYTES 2253 Cells/mcL (850-3900); HELPER/SUPPRESSOR RATIO 0.26 Ratio (0.86-5.00)
[2017-08-24] MEDS: (Lantus) Insulin Glargine, Recombinant SC SCH (22:53)
--- NOTE | 2017-08-24 22:56 | CP.PCM.PN ---
Subjective - Date & Time of Evaluation Date of Evaluation: 08/24/17 Time of Evaluation: 13:00 - Subjective Subjective: Patient still undecided regarding placing HD cath and initiating dialysis; denies sob, nausea/vomiting; appetite fair; Objective - Vital Signs/Intake and Output Vital Signs (last 24 hours): Temp Pulse Resp BP Pulse Ox 98.2 F 86 20 147/74 96 08/24/17 15:00 08/24/17 16:02 08/24/17 15:00 08/24/17 15:00 08/24/17 15:00 Intake and Output: 08/24/17 08/25/17 18:59 06:59 Intake Total 600 500 Output Total 600 Balance 0 500 - Medications Medications: Current Medications Abacavir Sulfate (Ziagen) 300 mg PO BID [facility] PRN Reason: Protocol Last Admin: 08/24/17 17:27 Dose: 300 mg Amlodipine Besylate (Norvasc) 5 mg PO DAILY [facility] Last Admin: 08/24/17 09:52 Dose: 5 mg Calcitriol (Rocaltrol) 0.25 mcg PO TTS [facility] Last Admin: 08/24/17 09:51 Dose: 0.25 mcg Calcium Acetate (Phoslo) 1,334 mg PO TIDCC [facility] Last Admin: 08/24/17 17:27 Dose: 1,334 mg Diphenhydramine HCl (Benadryl) 25 mg IVP Q6 PRN PRN Reason: Itching / Pruritus Dolutegravir Sodium (Tivicay) 50 mg PO DAILY [facility] PRN Reason: Protocol Last Admin: 08/24/17 09:51 Dose: 50 mg Cefepime HCl (Maxipime Iv 1 Gm Premix) 1 gm in 50 mls @ 50 mls/hr IVPB DAILY [facility] Last Admin: 08/24/17 10:49 Dose: 50 mls/hr Daptomycin 500 mg/ Sodium (Chloride) 100 mls @ 100 mls/hr IV Q48H [facility] PRN Reason: Protocol Stop: 08/27/17 15:01 Last Admin: 08/24/17 14:59 Dose: 100 mls/hr Insulin Glargine (Lantus) 16 unit SC HS [facility] Last Admin: 08/23/17 22:29 Dose: Not Given Insulin Human Regular (Novolin R) 0 unit SC ACHS [facility] PRN Reason: Protocol Last Admin: 08/24/17 17:28 Dose: Not Given Labetalol HCl (Normodyne) 300 mg PO Q8 [facility] Last Admin: 08/24/17 20:59 Dose: 300 mg Lamivudine (Epivir) 50 mg PO QD7 [facility] PRN Reason: Protocol Morphine Sulfate (Morphine) 1 mg IVP Q6H PRN PRN Reason: Pain, moderate (4-7) Last Admin: 08/24/17 17:24 Dose: 1 mg Ondansetron HCl (Zofran Inj) 4 mg IVP Q8H PRN PRN Reason: Nausea/Vomiting Last Admin: 08/22/17 18:08 Dose: 4 mg Saccharomyces Boulardii (Florastor) 250 mg PO BID [facility] Last Admin: 08/24/17 17:27 Dose: 250 mg Sertraline HCl (Zoloft) 50 mg PO DAILY [facility] Last Admin: 08/24/17 09:52 Dose: 50 mg Vitamin B Complex/Vit C/Folic Acid (Nephro-Rosario) 1 tab PO 0800 [facility] Last Admin: 08/24/17 08:53 Dose: 1 tab - Labs Labs: 08/24/17 13:29 08/24/17 13:29 - Constitutional Appears: Non-toxic, No Acute Distress - Eye Exam Eye Exam: absent: Scleral icterus - ENT Exam ENT Exam: Mucous Membranes Moist - Respiratory Exam Respiratory Exam: Clear to Ausculation Bilateral. absent: Respiratory Distress - Cardiovascular Exam Cardiovascular Exam: JVD, RRR, +S1, +S2 - GI/Abdominal Exam GI & Abdominal Exam: Soft. absent: Distended, Tenderness - Extremities Exam Additional comments: mild leg edema L >> R - Neurological Exam Neurological Exam: Alert, Awake - Psychiatric Exam Psychiatric exam: absent: Agitated - Skin Skin Exam: Warm. absent: Cyanosis Assessment and Plan (1) GAEL (acute kidney injury) Assessment & Plan: GAEL on CKD IV; serum creatinine showing mild improvement over past 2 days; relatively stable volume and electrolyte status; no urgent indication to initiate HD, however, patient counseled that renal function is very tenuous and any mild insult would be enough to precipitate need for dialysis urgently; also discussed need for AVF for chronic HD need; patient still wishing to discuss situation with mother before making any decision; -avoid nephrotoxic agents including NSAIDS, fleets phoshate enema; Status: Acute (2) CKD (chronic kidney disease), stage IV Status: Acute (3) Hypertensive CKD (chronic kidney disease) Status: Chronic (4) Anemia in CKD (chronic kidney disease) Status: Acute (5) Chronic kidney disease-mineral and bone disorder Status: Acute (6) Abscess and cellulitis Status: Acute (7) HIV (human immunodeficiency virus infection) Status: Chronic
--- NOTE | 2017-08-25 02:42 | PN ---
DATE: SUBJECTIVE: The patient is 37 years old female. The patient was seen at the bedside resting in the room, done with the dinner. Getting IV antibiotics. Podiatry and ID are on the case. Needed dialysis but want to discuss with her mother about her options. PHYSICAL EXAMINATION: VITAL SIGNS: Temperature 99, pulse 87, respiratory rate 20, blood pressure 147/77, pulse oximetry 97. HEENT: Head: Normocephalic, atraumatic. Eyes: PERRLA. Extraocular movements intact. Conjunctivae clear. Nose: Patent. Mucous membranes moist. NECK: Supple. No carotid bruits, JVD, or thyromegaly. CHEST: Bilaterally symmetrical. HEART: S1 and S2 positive. LUNGS: Clear to auscultation. ABDOMEN: Soft. Bowel sounds positive. No organomegaly. EXTREMITIES: Upper extremity, no edema, no cyanosis. Lower extremity, left foot has dressing. MEDICATIONS: HIV medications, amlodipine, Calcitrol, PhosLo, Benadryl, cefepime, daptomycin, insulin, Normodyne, Epivir, morphine, Zofran, Zoloft. LABORATORY DATA: White blood cells 10.6, hemoglobin 7.7, hematocrit 23.1, platelets 482. Potassium is 4.6. ASSESSMENT AND PLAN: Zia Johnson is a 37-year-old female with anemia, acute on chronic; thrombocytosis; has acute kidney injuries; human immunodeficiency virus positive; osteomyelitis; ulcers of the left foot; abscess and cellulitis of the foot; gangrene associated with type 2 diabetes mellitus, hypertension; left against medical advice on last admission. This is the patient's second admission. Getting antibiotics as per Dr. Del Valle. Command Post Superintendent is on the case. Chest x-ray done, reviewed by me, has left foot amputation. Plan is to continue treatment. The patient is talking to her mother about dialysis, will let us know. Gastrointestinal and deep venous thrombosis prophylaxis. We will follow up. Alexandria Simmons MD [facility]
--- NOTE | 2017-08-25 05:21 | PN ---
DATE: 08/23/2017 SUBJECTIVE: The patient is seen and examined at the bedside on 08/23/2017. Tolerated food very well. No nausea, vomiting, diarrhea. No fever, no chills. No headache, no dizziness. No shortness of breath. No hematuria or hematochezia. The patient is still undecided about hemodialysis, according to her, she is waiting for mother to discuss about dialysis, urged to get dialysis education done by me. PHYSICAL EXAMINATION: VITAL SIGNS: Temperature 98.2, pulse 80, respiratory rate 20, blood pressure 112/59, pulse oximetry 99%. HEENT: Head normocephalic, atraumatic. Eyes PERRLA. Extraocular muscles intact. Conjunctivae clear. Nose patent. Mucous membrane moist. NECK: Supple. No carotid bruit. No JVD or thyromegaly. CHEST: Bilaterally symmetrical. HEART: S1 and S2 positive. LUNGS: Clear to auscultation. ABDOMEN: Soft. Bowel sounds present. No organomegaly. EXTREMITIES: No edema. No cyanosis. NEUROLOGIC: The patient is awake, alert. Moving all 4 extremities. No focal deficits. MEDICATIONS: Norvasc, Calcitrol, PhosLo, HIV medications, Percocet, Maxipime, daptomycin, Lantus, Novolin, labetalol, Epivir, morphine. LABORATORY DATA: White blood cell 10.6, hemoglobin 7.7, hematocrit 23.1, platelets 482. ASSESSMENT AND PLAN: iZa Johnson is a 36 years old patient with anemia, acute on acute kidney injury on chronic kidney disease. No overt uremia signs and symptoms and relatively stable electrolyte and volume status, therefore no urgent indicator to initiate hemodialysis right away, but the patient should be started on hemodialysis soon. Emergency situation discussion done with patient to better manage chronic kidney disease. The patient is waiting for possible consultation with the mother, try to avoid nonsteroidal antiinflammatory drug. Chronic kidney disease stage 4, hypertension, chronic kidney disease, anemia of chronic kidney disease, chronic kidney disease mineral and bone disorder, abscess and cellulitis of the foot. The patient is seen by Mary Mcneill. The patient has explained her wishes that she wants to be transferred to [place] to nurse practitioner Mary, but the patient had to get some separate physician, I do not know anybody there and if the patient wants we can do that, otherwise, continue present treatment over here. Alexandria Simmons MD [facility] # [phone]
[2017-08-25] MEDS: Labetalol Hydrochloride 300 mg Tab PO SCH ×4 (05:30→21:28)
[2017-08-25] MEDS: Morphine 4 MG/ML VIAL IVP PRN ×3 (05:31→17:23)
[2017-08-25] MEDS: (Novolin R) Insulin Human Regular 100 units/ml vial SC SCH ×4 (08:25→21:05)
[2017-08-25] MEDS: Multivitamin Vitamin B Complex (Nephro-Vite) Tab PO SCH (08:25)
--- NOTE | 2017-08-25 09:47 | CP.PCM.PN ---
Subjective - Date & Time of Evaluation Date of Evaluation: 08/25/17 Time of Evaluation: 09:42 - Subjective Subjective: Podiatry Progress note for Dr. 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 Patient resting in bed comfortably, NAD. AAOx3. Patient reports that she fell backwards on Wednesday while trying to leave the hospital against medical advice. No pain to the foot today. Denies of recent F/N /V/C/SOB/CP. No new pedal complains. Objective - Vital Signs/Intake and Output Vital Signs (last 24 hours): Temp Pulse Resp BP Pulse Ox 100 F H 91 H 20 138/79 97 08/25/17 07:40 08/25/17 08:00 08/25/17 07:40 08/25/17 07:40 08/25/17 07:40 Intake and Output: 08/25/17 08/25/17 06:59 18:59 Intake Total 750 Output Total 675 Balance 75 - Medications Medications: Current Medications Abacavir Sulfate (Ziagen) 300 mg PO BID [facility] PRN Reason: Protocol Last Admin: 08/24/17 17:27 Dose: 300 mg Amlodipine Besylate (Norvasc) 5 mg PO DAILY [facility] Last Admin: 08/24/17 09:52 Dose: 5 mg Calcitriol (Rocaltrol) 0.25 mcg PO TTS [facility] Last Admin: 08/24/17 09:51 Dose: 0.25 mcg Calcium Acetate (Phoslo) 1,334 mg PO TIDCC [facility] Last Admin: 08/25/17 08:25 Dose: 1,334 mg Diphenhydramine HCl (Benadryl) 25 mg IVP Q6 PRN PRN Reason: Itching / Pruritus Dolutegravir Sodium (Tivicay) 50 mg PO DAILY [facility] PRN Reason: Protocol Last Admin: 08/24/17 09:51 Dose: 50 mg Cefepime HCl (Maxipime Iv 1 Gm Premix) 1 gm in 50 mls @ 50 mls/hr IVPB DAILY [facility] Last Admin: 08/24/17 10:49 Dose: 50 mls/hr Daptomycin 500 mg/ Sodium (Chloride) 100 mls @ 100 mls/hr IV Q48H [facility] PRN Reason: Protocol Stop: 08/27/17 15:01 Last Admin: 08/24/17 14:59 Dose: 100 mls/hr Insulin Glargine (Lantus) 16 unit SC HS [facility] Last Admin: 08/24/17 22:53 Dose: Not Given Insulin Human Regular (Novolin R) 0 unit SC ACHS [facility] PRN Reason: Protocol Last Admin: 08/25/17 08:25 Dose: Not Given Labetalol HCl (Normodyne) 300 mg PO Q8 [facility] Last Admin: 08/25/17 05:30 Dose: 300 mg Lamivudine (Epivir) 50 mg PO QD7 [facility] PRN Reason: Protocol Morphine Sulfate (Morphine) 1 mg IVP Q6H PRN PRN Reason: Pain, moderate (4-7) Last Admin: 08/25/17 05:31 Dose: 1 mg Ondansetron HCl (Zofran Inj) 4 mg IVP Q8H PRN PRN Reason: Nausea/Vomiting Last Admin: 08/22/17 18:08 Dose: 4 mg Saccharomyces Boulardii (Florastor) 250 mg PO BID [facility] Last Admin: 08/24/17 17:27 Dose: 250 mg Sertraline HCl (Zoloft) 50 mg PO DAILY [facility] Last Admin: 08/24/17 09:52 Dose: 50 mg Vitamin B Complex/Vit C/Folic Acid (Nephro-Rosario) 1 tab PO 0800 [facility] Last Admin: 08/25/17 08:25 Dose: 1 tab - Labs Labs: 08/24/17 13:29 08/24/17 13:29 - Constitutional Appears: Well, Non-toxic, No Acute Distress - Head Exam Head Exam: ATRAUMATIC - Extremities Exam Additional comments: Podiatry Progress note for Dr. 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 Patient resting in bed comfortably, AAOx3. Event noted ; Patient reports that she had fever this morning. Floor nurse advised last measured 100 'F. No pain to the foot today. Reports she has been walking a little on the right foot. - Neurological Exam Neurological Exam: Alert, Awake, Oriented x3 - Psychiatric Exam Psychiatric exam: Normal Affect, Normal Mood - Skin Skin Exam: Normal Color, Warm Assessment and Plan - Assessment and Plan (Free Text) Assessment: 36 year old female patient seen 19 days s/p Chopart's amputation (DOS 08/06/17) Plan: Patient examined and evaluated at bedside Discussed plan with attending, Dr. Coy Labs and vitals reviewed Continue local wound care - saline cleanse, betadine soaked gauze, ABD, kerlix, RAFFY Intra-op wound cultures: Coagulase Neg Staph c/w IV abx as per ID Dr. Del Valle Continue pain mgt per primary team Patient may be PWB to left heel in surgical shoe with the assistance of a walker Podiatry will continue to follow
[2017-08-25] MEDS: Saccharomyces Boulardi 250 mg Cap PO SCH ×3 (10:07→18:18)
[2017-08-25] MEDS: Cefepime IV 1 gm in Dextrose 1 GM/50 ML BAG IVPB SCH (10:08)
[2017-08-25] MEDS ORDERED: LamiVUDine 10 mg/ml Syringe PO SCH (11:30)
[2017-08-25 15:03] LABS: BASO # 0.2 K/uL (0.0-0.2); BASO % 1.3 % (0.0-2.0); EOS # 0.5 K/uL (0.0-0.7); EOS % 4.1 % (0.0-4.0); HEMOGLOBIN 8.3 g/dL (11.0-16.0); LYMPH # 3.2 K/uL (1.0-4.3); LYMPH % 26.1 % (20.0-40.0); MEAN CORPUSCULAR HEMOGLOBIN 28.3 pg (27.0-31.0); MEAN CORPUSCULAR HGB CONC 32.6 g/dL (33.0-37.0); MEAN PLATELET VOLUME 6.4 fL (7.2-11.7); MONO # 1.5 K/uL (0.0-0.8); MONO % 12.7 % (0.0-10.0); NEUT # 6.7 K/uL (1.8-7.0); NEUT % 55.8 % (50.0-75.0); NRBC % 0.1 % (0.0-2.0); RBC 2.91 Mil/uL (3.80-5.20); WHITE BLOOD COUNT 12.1 K/uL (4.8-10.8)
[2017-08-25 15:20] LABS: CALCIUM 9.3 mg/dl (8.6-10.4)
--- NOTE | 2017-08-25 16:01 | CP.PCM.PN ---
Subjective - Date & Time of Evaluation Date of Evaluation: 08/25/17 Time of Evaluation: 07:00 - Subjective Subjective: fever again some drainage recultured Objective - Vital Signs/Intake and Output Vital Signs (last 24 hours): Temp Pulse Resp BP Pulse Ox 99.4 F 87 20 118/69 97 08/25/17 10:06 08/25/17 14:40 08/25/17 07:40 08/25/17 14:40 08/25/17 07:40 Intake and Output: 08/25/17 08/25/17 06:59 18:59 Intake Total 750 Output Total 675 Balance 75 - Medications Medications: Current Medications Abacavir Sulfate (Ziagen) 300 mg PO BID [facility] PRN Reason: Protocol Last Admin: 08/25/17 10:08 Dose: 300 mg Amlodipine Besylate (Norvasc) 5 mg PO DAILY [facility] Last Admin: 08/25/17 10:07 Dose: 5 mg Calcitriol (Rocaltrol) 0.25 mcg PO TTS [facility] Last Admin: 08/24/17 09:51 Dose: 0.25 mcg Calcium Acetate (Phoslo) 1,334 mg PO TIDCC [facility] Last Admin: 08/25/17 12:55 Dose: 1,334 mg Diphenhydramine HCl (Benadryl) 25 mg IVP Q6 PRN PRN Reason: Itching / Pruritus Dolutegravir Sodium (Tivicay) 50 mg PO DAILY [facility] PRN Reason: Protocol Last Admin: 08/25/17 10:08 Dose: 50 mg Epoetin Anival (Procrit) 30,000 unit SC TTS [facility] Cefepime HCl (Maxipime Iv 1 Gm Premix) 1 gm in 50 mls @ 50 mls/hr IVPB DAILY [facility] Last Admin: 08/25/17 10:08 Dose: 50 mls/hr Daptomycin 500 mg/ Sodium (Chloride) 100 mls @ 100 mls/hr IV Q48H [facility] PRN Reason: Protocol Stop: 08/27/17 15:01 Last Admin: 08/24/17 14:59 Dose: 100 mls/hr Insulin Glargine (Lantus) 16 unit SC HS [facility] Last Admin: 08/24/17 22:53 Dose: Not Given Insulin Human Regular (Novolin R) 0 unit SC ACHS [facility] PRN Reason: Protocol Last Admin: 08/25/17 12:30 Dose: Not Given Labetalol HCl (Normodyne) 300 mg PO Q8 [facility] Last Admin: 08/25/17 14:48 Dose: Not Given Lamivudine (Epivir) 50 mg PO QD7 [facility] PRN Reason: Protocol Morphine Sulfate (Morphine) 1 mg IVP Q6H PRN PRN Reason: Pain, moderate (4-7) Last Admin: 08/25/17 11:36 Dose: 1 mg Ondansetron HCl (Zofran Inj) 4 mg IVP Q8H PRN PRN Reason: Nausea/Vomiting Last Admin: 08/25/17 14:43 Dose: 4 mg Saccharomyces Boulardii (Florastor) 250 mg PO BID [facility] Last Admin: 08/25/17 10:07 Dose: 250 mg Sertraline HCl (Zoloft) 50 mg PO DAILY [facility] Last Admin: 08/25/17 10:07 Dose: 50 mg Vitamin B Complex/Vit C/Folic Acid (Nephro-Rosario) 1 tab PO 0800 [facility] Last Admin: 08/25/17 08:25 Dose: 1 tab - Labs Labs: 08/25/17 14:54 08/25/17 14:54 - Constitutional Appears: Non-toxic, Chronically Ill - Head Exam Head Exam: NORMOCEPHALIC - Eye Exam Eye Exam: PERRL - ENT Exam ENT Exam: Mucous Membranes Dry - Neck Exam Neck Exam: absent: Lymphadenopathy - Respiratory Exam Respiratory Exam: Decreased Breath Sounds - Cardiovascular Exam Cardiovascular Exam: REGULAR RHYTHM - GI/Abdominal Exam GI & Abdominal Exam: Distended - Rectal Exam Rectal Exam: Deferred Assessment and Plan (1) GAEL (acute kidney injury) Status: Acute (2) HIV (human immunodeficiency virus) risk factors complicating Status: Acute (3) Osteomyelitis Status: Acute (4) Ulcer of foot Status: Acute (5) Abscess and cellulitis Status: Acute (6) Gangrene associated with type 2 diabetes mellitus Status: Acute (7) Hypertension Status: Acute (8) Left against medical advice Status: Acute - Assessment and Plan (Free Text) Assessment: may need BKA
--- NOTE | 2017-08-25 16:18 | RAD ---
HISTORY: Fever COMPARISON: 08/24/2017. FINDINGS: The right PICC line terminates in the SVC LUNGS: The lungs are well inflated. There is mild pulmonary venous congestion. PLEURA: No significant pleural effusion identified, no pneumothorax apparent. CARDIOVASCULAR: There is severe cardiomegaly OSSEOUS STRUCTURES: No significant abnormalities. VISUALIZED UPPER ABDOMEN: Normal. OTHER FINDINGS: None. IMPRESSION: Right PICC line terminates in the SVC. Severe cardiomegaly and mild pulmonary venous congestion.
--- NOTE | 2017-08-25 19:34 | CP.PCM.PN ---
Subjective - Date & Time of Evaluation Date of Evaluation: 08/25/17 Time of Evaluation: 13:00 - Subjective Subjective: Fever noted this morning; patient otherwise denies any complaints; no sob/nausea /vomiting; still undecided regarding HD access and awaiting to speak with mother ; Objective - Vital Signs/Intake and Output Vital Signs (last 24 hours): Temp Pulse Resp BP Pulse Ox 99.4 F 87 20 118/69 97 08/25/17 10:06 08/25/17 14:40 08/25/17 07:40 08/25/17 14:40 08/25/17 07:40 Intake and Output: 08/25/17 08/26/17 18:59 06:59 Output Total 300 Balance -300 - Medications Medications: Current Medications Abacavir Sulfate (Ziagen) 300 mg PO BID [facility] PRN Reason: Protocol Last Admin: 08/25/17 17:33 Dose: 300 mg Amlodipine Besylate (Norvasc) 5 mg PO DAILY [facility] Last Admin: 08/25/17 10:07 Dose: 5 mg Calcitriol (Rocaltrol) 0.25 mcg PO TTS [facility] Last Admin: 08/24/17 09:51 Dose: 0.25 mcg Calcium Acetate (Phoslo) 1,334 mg PO TIDCC [facility] Last Admin: 08/25/17 17:32 Dose: 1,334 mg Diphenhydramine HCl (Benadryl) 25 mg IVP Q6 PRN PRN Reason: Itching / Pruritus Dolutegravir Sodium (Tivicay) 50 mg PO DAILY [facility] PRN Reason: Protocol Last Admin: 08/25/17 10:08 Dose: 50 mg Epoetin Anival (Procrit) 30,000 unit SC TTS [facility] Cefepime HCl (Maxipime Iv 1 Gm Premix) 1 gm in 50 mls @ 50 mls/hr IVPB DAILY [facility] Last Admin: 08/25/17 10:08 Dose: 50 mls/hr Daptomycin 500 mg/ Sodium (Chloride) 100 mls @ 100 mls/hr IV Q48H [facility] PRN Reason: Protocol Stop: 08/27/17 15:01 Last Admin: 08/24/17 14:59 Dose: 100 mls/hr Insulin Glargine (Lantus) 16 unit SC [facility] Last Admin: 08/24/17 22:53 Dose: Not Given Insulin Human Regular (Novolin R) 0 unit SC ACHS [facility] PRN Reason: Protocol Last Admin: 08/25/17 17:20 Dose: Not Given Labetalol HCl (Normodyne) 300 mg PO Q8 [facility] Last Admin: 08/25/17 14:48 Dose: Not Given Lamivudine (Epivir) 50 mg PO QD7 [facility] PRN Reason: Protocol Morphine Sulfate (Morphine) 1 mg IVP Q6H PRN PRN Reason: Pain, moderate (4-7) Last Admin: 08/25/17 17:23 Dose: 1 mg Ondansetron HCl (Zofran Inj) 4 mg IVP Q8H PRN PRN Reason: Nausea/Vomiting Last Admin: 08/25/17 14:43 Dose: 4 mg Pantoprazole Sodium (Protonix Ec Tab) 40 mg PO ACB [facility] Saccharomyces Boulardii (Florastor) 250 mg PO BID [facility] Last Admin: 08/25/17 17:32 Dose: 250 mg Sertraline HCl (Zoloft) 50 mg PO DAILY [facility] Last Admin: 08/25/17 10:07 Dose: 50 mg Vitamin B Complex/Vit C/Folic Acid (Nephro-Rosario) 1 tab PO 0800 [facility] Last Admin: 08/25/17 08:25 Dose: 1 tab - Labs Labs: 08/25/17 14:54 08/25/17 14:54 - Constitutional Appears: Non-toxic, No Acute Distress - Eye Exam Eye Exam: absent: Scleral icterus - ENT Exam ENT Exam: Mucous Membranes Moist - Respiratory Exam Respiratory Exam: Clear to Ausculation Bilateral. absent: Respiratory Distress - Cardiovascular Exam Cardiovascular Exam: JVD, RRR, +S1, +S2 - GI/Abdominal Exam GI & Abdominal Exam: Soft. absent: Distended, Tenderness - Exam Exam: Bladder Distension - Extremities Exam Additional comments: mild R, moderate L lower leg edema; - Neurological Exam Neurological Exam: Alert, Awake - Psychiatric Exam Psychiatric exam: absent: Agitated - Skin Skin Exam: Warm. absent: Cyanosis Assessment and Plan (1) GAEL (acute kidney injury) Assessment & Plan: GAEL on CKD IV/V; renal function now improving, likely ATN in the setting of sepsis; in light of new fever, it is prudent to hold off on placing HD permcath ; mild volume excess on exam/CXR, otherwise no urgent indication to initiate HD currently; -continue to avoid nephrotoxic agents; -will avoid diuresis unless patient has respiratory symptoms; Status: Acute (2) CKD (chronic kidney disease), stage IV Assessment & Plan: Late stage IV CKD; need to establish skilled nursing HD access with AVF; discussed at length with patient's mother who will try to convince patient to adhere to our advice; Status: Acute (3) Hypertensive CKD (chronic kidney disease) Assessment & Plan: BP currently controlled on labetalol and amlodipine, continue same; Status: Chronic (4) Anemia in CKD (chronic kidney disease) Assessment & Plan: Hgb improved but still well below goal; will continue with EPO on TTS schedule ( dose increased); Status: Acute (5) Chronic kidney disease-mineral and bone disorder Assessment & Plan: Started on calcitriol, continue; continue phoslo with meals; Status: Acute (6) Abscess and cellulitis Assessment & Plan: Concern for ongoing sepsis, especially with fever spikes; on dapto and cefepime , dosed for CrCl < 20 ml/min; need to consider removing PICC line as well due to fevers as well as relative contraindication in advanced CKD patients (need to preserve their peripheral veins); will discuss with IR/vascular about putting chest port instead; Status: Acute (7) HIV (human immunodeficiency virus infection) Status: Chronic
[2017-08-25] MEDS: (Lantus) Insulin Glargine, Recombinant SC SCH (21:05)
[2017-08-26] MEDS: Morphine 4 MG/ML VIAL IVP PRN ×4 (01:02→19:43)
[2017-08-26] MEDS: Labetalol Hydrochloride 300 mg Tab PO SCH ×3 (05:24→21:47)
--- NOTE | 2017-08-26 07:11 | PN ---
DATE: 08/25/2017 SUBJECTIVE: The patient was seen and examined at the bedside, complaining about sleep problem. According to the patient, she cannot sleep at night. Then, she is sleeping all day. She wanted some help , promised to give her melatonin but she does not like melatonin, then we will work on that. History of, again, fever, some drainage. PHYSICAL EXAMINATION: VITAL SIGNS: Temperature 99.4, pulse 87, respiratory rate 20, blood pressure 118/69, pulse oximetry 97. HEENT: Head normocephalic, atraumatic. Eyes: PERRLA. EOMs intact. Conjunctivae clear. Nose patent. Mucus membranes moist. NECK: Supple. No carotid bruits. No JVD or thyromegaly. CHEST: Bilaterally symmetrical. HEART: S1, S2 positive. LUNGS: Clear to auscultation. ABDOMEN: Soft. Positive bowel sounds. No hepatosplenomegaly. EXTREMITIES: No edema, no cyanosis. NEUROLOGY: The patient is awake, alert, moving all 4 extremities. No focal deficits. MEDICATIONS: HIV medications, Norvasc, Calcitrol, PhosLo, Benadryl, Procrit, Daptomycin, Lantus, Epivir, morphine, Zofran, Zoloft, vitamins. LABORATORY DATA: White blood cells 12, hemoglobin 8.2, hematocrit 25.4, platelets 586. Sodium 137, potassium 4.7, BUN 72, creatinine 6.4, chloride 112. ASSESSMENT AND PLAN: Zia Johnson is a 37-year-old patient with leukocytosis, anemia, thrombocytosis, renal insufficiency, hyperglycemia. She is complaining about insomnia. We would give some sleep medications. Acute kidney infection, human immunodeficiency virus positive, osteomyelitis, also rule out foot abscess and cellulitis and gangrene associated with diabetes mellitus, hypertension, left against medical advice last admission, this is the second admission, may need below knee amputation as per Dr. Del Valle, patient's Infectious Disease. Podiatry is on the case also. Meanwhile, continue gastrointestinal and deep venous thrombosis prophylaxis. Repeat labs. We will follow up. Alexandria Simmons MD [facility] # [id number] MTDD
[2017-08-26] MEDS: (Novolin R) Insulin Human Regular 100 units/ml vial SC SCH ×4 (08:30→21:44)
[2017-08-26] MEDS: Pantoprazole 40 mg EC Tab PO SCH (08:30)
--- NOTE | 2017-08-26 08:45 | CP.PCM.CON ---
<Diana Hoyos - Last Filed: 08/26/17 08:51> History of Present Illness - History of Present Illness History of Present Illness: Gastroenterology Fellow/PGY5 Consult Note 37 year old transgender female with PMH of uncontrolled T2, HIV (CD4 count 416 ), HTN, CKD Stage IV/V, DVT s/p IVC filter, and left foot osteomyelitis s/ p multiple amputations presenting with fever. Recent left forefoot amputation on 08/09/17. Active workup for possible abscess/cellulitis/osteomyelitis post- amputation on broad spectrum antibiotics and acute kidney injury on CKD Stage IV /V. GI consultation for vomiting. Patient notes similar symptoms in 07/2017 of bilious vomiting intermittently that improved with Prilosec use. Notes recurrence of symptoms for the last three weeks every 3-4 days of bilious vomitus usually upon awakening that is not associated with oral intake. Associated heartburn, acid reflux, sour taste in mouth, bloating, and indigestion. Admits to not using Prilosec for the last month. Denies hematemesis , dysphagia, odynophagia, abdominal pain, constipation, diarrhea, melena, hematochezia, or unintentional weight loss. No prior EGD or colonoscopy. Family History- multiple cancers in family- unknown types Social History- admits to tobacco use, rare alcohol use, marijuana use Surgical History- left 3-5th metatarsal amputation, IVC filter Review of Systems - Review of Systems Review of Systems: 12-point review of systems negative except for as above Past Patient History - Infectious Disease Hx of Infectious Diseases: None - Past Medical History & Family History Past Medical History?: Yes - Past Social History Smoking Status: Former Smoker - CARDIAC Hx Hypertension: Yes - PULMONARY Hx Respiratory Disorders: Yes Hx Asthma: Yes - NEUROLOGICAL Hx Neurological Disorder: No - HEENT Hx HEENT Problems: No - RENAL Hx Chronic Kidney Disease: No - ENDOCRINE/METABOLIC Hx Endocrine Disorders: No - HEMATOLOGICAL/ONCOLOGICAL Hx Blood Disorders: Yes Hx Human Immunodeficiency Virus (HIV): Yes - INTEGUMENTARY Hx Dermatological Problems: Yes Other/Comment: ULCER BOTTOM LEFT FOOT LEFT FOOT SUTURE LINES TOES - MUSCULOSKELETAL/RHEUMATOLOGICAL Hx Musculoskeletal Disorders: Yes Hx Falls: No Hx Osteomyelitis: Yes (LEFT FOOT, receiving daily infusion) - GASTROINTESTINAL Hx Gastrointestinal Disorders: No - GENITOURINARY/GYNECOLOGICAL Hx Genitourinary Disorders: No - PSYCHIATRIC Hx Psychophysiologic Disorder: Yes Hx Depression: Yes Hx Substance Use: No - SURGICAL HISTORY Hx Surgeries: Yes Other/Comment: left forefoot amputation on 08/06/17 - ANESTHESIA Hx Anesthesia: Yes Hx Anesthesia Reactions: No (unknown) Hx Malignant Hyperthermia: No Has any member of the family had a problem w/ anesthesia?: No Meds Allergies/Adverse Reactions: Allergies Allergy/AdvReac Type Severity Reaction Status Date / Time acetaminophen [From Tylenol] Allergy RASH Verified 07/30/17 16:06 aspirin Allergy RASH Verified 07/30/17 16:06 hydromorphone [From Dilaudid] Allergy Verified 07/30/17 16:06 ketorolac tromethamine Allergy RASH Verified 07/30/17 16:06 [From Toradol] meperidine HCl [From Demerol] Allergy RASH Verified 07/30/17 16:06 oxycodone HCl [From Percocet] Allergy RASH Verified 07/30/17 16:06 peas Allergy ANAPHYLAXIS Verified 07/30/17 16:06 propoxyphene napsylate Allergy RASH Verified 07/30/17 16:06 [From Darvocet-N] - Medications Medications: Current Medications Abacavir Sulfate (Ziagen) 300 mg PO BID [facility] PRN Reason: Protocol Last Admin: 08/25/17 18:19 Dose: Not Given Amlodipine Besylate (Norvasc) 5 mg PO DAILY [facility] Last Admin: 08/25/17 10:07 Dose: 5 mg Calcitriol (Rocaltrol) 0.25 mcg PO TTS [facility] Last Admin: 08/24/17 09:51 Dose: 0.25 mcg Calcium Acetate (Phoslo) 1,334 mg PO TIDCC [facility] Last Admin: 08/25/17 18:18 Dose: Not Given Diphenhydramine HCl (Benadryl) 25 mg IVP Q6 PRN PRN Reason: Itching / Pruritus Dolutegravir Sodium (Tivicay) 50 mg PO DAILY [facility] PRN Reason: Protocol Last Admin: 08/25/17 10:08 Dose: 50 mg Epoetin Anival (Procrit) 30,000 unit SC TTS [facility] Cefepime HCl (Maxipime Iv 1 Gm Premix) 1 gm in 50 mls @ 50 mls/hr IVPB DAILY [facility] Last Admin: 08/25/17 10:08 Dose: 50 mls/hr Daptomycin 500 mg/ Sodium (Chloride) 100 mls @ 100 mls/hr IV Q48H [facility] PRN Reason: Protocol Stop: 08/27/17 15:01 Last Admin: 08/24/17 14:59 Dose: 100 mls/hr Insulin Glargine (Lantus) 16 unit SC HS [facility] Last Admin: 08/25/17 21:05 Dose: Not Given Insulin Human Regular (Novolin R) 0 unit SC ACHS [facility] PRN Reason: Protocol Last Admin: 08/26/17 08:30 Dose: Not Given Labetalol HCl (Normodyne) 300 mg PO Q8 [facility] Last Admin: 08/26/17 05:24 Dose: 300 mg Lamivudine (Epivir) 50 mg PO QD7 [facility] PRN Reason: Protocol Morphine Sulfate (Morphine) 1 mg IVP Q6H PRN PRN Reason: Pain, moderate (4-7) Last Admin: 08/26/17 06:56 Dose: 1 mg Ondansetron HCl (Zofran Inj) 4 mg IVP Q8H PRN PRN Reason: Nausea/Vomiting Last Admin: 08/25/17 14:43 Dose: 4 mg Pantoprazole Sodium (Protonix Ec Tab) 40 mg PO ACB [facility] Saccharomyces Boulardii (Florastor) 250 mg PO BID [facility] Last Admin: 08/25/17 18:18 Dose: Not Given Sertraline HCl (Zoloft) 50 mg PO DAILY [facility] Last Admin: 08/25/17 10:07 Dose: 50 mg Vitamin B Complex/Vit C/Folic Acid (Nephro-Rosario) 1 tab PO 0800 [facility] Last Admin: 08/25/17 08:25 Dose: 1 tab Zolpidem Tartrate (Ambien) 5 mg PO HS PRN PRN Reason: Insomnia Last Admin: 08/26/17 00:33 Dose: 5 mg Physical Exam - Constitutional Appears: Non-toxic, No Acute Distress - Head Exam Head Exam: ATRAUMATIC, NORMOCEPHALIC - Eye Exam Eye Exam: EOMI, Scleral icterus Pupil Exam: absent: Mydriatic, PERRL - ENT Exam ENT Exam: Mucous Membranes Moist, Normal Oropharynx - Neck Exam Neck exam: Positive for: Full Rom, Normal Inspection - Cardiovascular Exam Cardiovascular Exam: RRR, +S1, +S2. absent: Gallop, Rubs - GI/Abdominal Exam GI & Abdominal Exam: Normal Bowel Sounds, Soft. absent: Distended, Firm, Guarding, Organomegaly, Rebound, Rigid, Tenderness - Extremities Exam Additional comments: L>R leg swelling 2+, left foot bandage in place s/p recent amputation C/D/I - Neurological Exam Neurological exam: Alert, Oriented x3 - Psychiatric Exam Psychiatric exam: Normal Affect, Normal Mood - Skin Skin Exam: Dry, Intact, Normal Color, Warm Results - Vital Signs Recent Vital Signs: Last Vital Signs Temp 99.8 F H 08/26/17 08:31 Pulse 85 08/26/17 08:31 Resp 20 08/26/17 08:31 BP 136/76 08/26/17 08:31 Pulse Ox 97 08/26/17 08:31 - Labs Result Diagrams: 08/25/17 14:54 08/25/17 14:54 Labs: Laboratory Results - last 24 hr 08/25/17 08/25/17 08/25/17 06:16 11:55 14:54 WBC 12.1 H RBC 2.91 L Hgb 8.3 L Hct 25.4 L MCV 87.0 MCH 28.3 MCHC 32.6 L RDW 18.0 H Plt Count 586 H MPV 6.4 L Neut % (Auto) 55.8 Lymph % (Auto) 26.1 Sebastian % (Auto) 12.7 H Eos % (Auto) 4.1 H Baso % (Auto) 1.3 Neut # (Auto) 6.7 Lymph # (Auto) 3.2 Sebastian # (Auto) 1.5 H Eos # (Auto) 0.5 Baso # (Auto) 0.2 Sodium Potassium Chloride Carbon Dioxide Anion Gap BUN Creatinine Est GFR ( Amer) Est GFR (Non-Af Amer) POC Glucose (mg/dL) 94 100 Random Glucose Calcium Phosphorus 08/25/17 08/26/17 14:54 06:01 WBC RBC Hgb Hct MCV MCH MCHC RDW Plt Count MPV Neut % (Auto) Lymph % (Auto) Sebastian % (Auto) Eos % (Auto) Baso % (Auto) Neut # (Auto) Lymph # (Auto) Sebastian # (Auto) Eos # (Auto) Baso # (Auto) Sodium 137 Potassium 4.7 Chloride 107 Carbon Dioxide 21 L Anion Gap 15 BUN 72 H Creatinine 6.4 H Est GFR ( Amer) 9 Est GFR (Non-Af Amer) 7 POC Glucose (mg/dL) 103 Random Glucose 112 H Calcium 9.3 Phosphorus 5.0 H Assessment & Plan - Assessment and Plan (Free Text) Assessment: 37 year old transgender female with PMH of uncontrolled T2, HIV (CD4 count 416 ), HTN, CKD Stage IV/V, DVT s/p IVC filter, and left foot osteomyelitis s/ p multiple amputations presenting with fever. Recent left forefoot amputation on 08/09/17. Active workup for possible abscess/cellulitis/osteomyelitis post- amputation on broad spectrum antibiotics and acute kidney injury on CKD Stage IV /V. GI consultation for vomiting. No prior EGD or colonoscopy. Plan: -DDx: gastroparesis in setting of uncontrolled T2DM, antibiotics, active infection, uremia -improve glycemic control -A1c 6.6 from 11 in 02/2016 -small frequent low fat meals -start PPI trial- Protonix 40mg ACB -supportive care: anti-emetics -counselled on medication compliance -GI outpatient follow up if symptoms persist for possible endoscopic evaluation <Napoleon Hdez - Last Filed: 08/26/17 10:30> Meds - Medications Medications: Current Medications Abacavir Sulfate (Ziagen) 300 mg PO BID [facility] PRN Reason: Protocol Last Admin: 08/25/17 18:19 Dose: Not Given Amlodipine Besylate (Norvasc) 5 mg PO DAILY [facility] Last Admin: 08/25/17 10:07 Dose: 5 mg Calcitriol (Rocaltrol) 0.25 mcg PO TTS [facility] Last Admin: 08/24/17 09:51 Dose: 0.25 mcg Calcium Acetate (Phoslo) 1,334 mg PO TIDCC [facility] Last Admin: 08/26/17 08:58 Dose: 1,334 mg Diphenhydramine HCl (Benadryl) 25 mg IVP Q6 PRN PRN Reason: Itching / Pruritus Dolutegravir Sodium (Tivicay) 50 mg PO DAILY [facility] PRN Reason: Protocol Last Admin: 08/25/17 10:08 Dose: 50 mg Epoetin Anival (Procrit) 30,000 unit SC TTS [facility] Cefepime HCl (Maxipime Iv 1 Gm Premix) 1 gm in 50 mls @ 50 mls/hr IVPB DAILY [facility] Last Admin: 08/25/17 10:08 Dose: 50 mls/hr Daptomycin 500 mg/ Sodium (Chloride) 100 mls @ 100 mls/hr IV Q48H [facility] PRN Reason: Protocol Stop: 08/27/17 15:01 Last Admin: 08/24/17 14:59 Dose: 100 mls/hr Insulin Glargine (Lantus) 16 unit SC HS [facility] Last Admin: 08/25/17 21:05 Dose: Not Given Insulin Human Regular (Novolin R) 0 unit SC ACHS [facility] PRN Reason: Protocol Last Admin: 08/26/17 08:30 Dose: Not Given Labetalol HCl (Normodyne) 300 mg PO Q8 [facility] Last Admin: 08/26/17 05:24 Dose: 300 mg Lamivudine (Epivir) 50 mg PO QD7 [facility] PRN Reason: Protocol Morphine Sulfate (Morphine) 1 mg IVP Q6H PRN PRN Reason: Pain, moderate (4-7) Last Admin: 08/26/17 06:56 Dose: 1 mg Ondansetron HCl (Zofran Inj) 4 mg IVP Q8H PRN PRN Reason: Nausea/Vomiting Last Admin: 08/25/17 14:43 Dose: 4 mg Pantoprazole Sodium (Protonix Ec Tab) 40 mg PO ACB [facility] Last Admin: 08/26/17 08:30 Dose: 40 mg Saccharomyces Boulardii (Florastor) 250 mg PO BID [facility] Last Admin: 08/25/17 18:18 Dose: Not Given Sertraline HCl (Zoloft) 50 mg PO DAILY [facility] Last Admin: 08/25/17 10:07 Dose: 50 mg Vitamin B Complex/Vit C/Folic Acid (Nephro-Rosario) 1 tab PO 0800 [facility] Last Admin: 08/26/17 08:58 Dose: 1 tab Zolpidem Tartrate (Ambien) 5 mg PO HS PRN PRN Reason: Insomnia Last Admin: 08/26/17 00:33 Dose: 5 mg Results - Vital Signs Recent Vital Signs: Last Vital Signs Temp 99.8 F H 08/26/17 08:31 Pulse 85 08/26/17 08:31 Resp 20 08/26/17 08:31 BP 136/76 08/26/17 08:31 Pulse Ox 97 08/26/17 08:31 - Labs Result Diagrams: 08/25/17 14:54 08/25/17 14:54 Labs: Laboratory Results - last 24 hr 08/25/17 08/25/17 08/25/17 06:16 11:55 14:54 WBC 12.1 H RBC 2.91 L Hgb 8.3 L Hct 25.4 L MCV 87.0 MCH 28.3 MCHC 32.6 L RDW 18.0 H Plt Count 586 H MPV 6.4 L Neut % (Auto) 55.8 Lymph % (Auto) 26.1 Sebastian % (Auto) 12.7 H Eos % (Auto) 4.1 H Baso % (Auto) 1.3 Neut # (Auto) 6.7 Lymph # (Auto) 3.2 Sebastian # (Auto) 1.5 H Eos # (Auto) 0.5 Baso # (Auto) 0.2 Sodium Potassium Chloride Carbon Dioxide Anion Gap BUN Creatinine Est GFR ( Amer) Est GFR (Non-Af Amer) POC Glucose (mg/dL) 94 100 Random Glucose Calcium Phosphorus 08/25/17 08/26/17 14:54 06:01 WBC RBC Hgb Hct MCV MCH MCHC RDW Plt Count MPV Neut % (Auto) Lymph % (Auto) Sebastian % (Auto) Eos % (Auto) Baso % (Auto) Neut # (Auto) Lymph # (Auto) Sebastian # (Auto) Eos # (Auto) Baso # (Auto) Sodium 137 Potassium 4.7 Chloride 107 Carbon Dioxide 21 L Anion Gap 15 BUN 72 H Creatinine 6.4 H Est GFR ( Amer) 9 Est GFR (Non-Af Amer) 7 POC Glucose (mg/dL) 103 Random Glucose 112 H Calcium 9.3 Phosphorus 5.0 H Attending/Attestation - Attestation I have personally seen and examined this patient.: Yes I have fully participated in the care of the patient.: Yes I have reviewed all pertinent clinical information: Yes Notes (Text): 08/26/17 10:23 I have seen and examined patient with GI fellow. Agree with above documentation with the following additions. In brief, this is a 37 year old trans gender female with history of HIV, DM, obesity, CKD, DVT s/p IVC filter, PVD with recent foot amputation who presented initially to hospital with fever. She is currently undergoing treatment of suspected osteomyelitis. GI called for evaluation of nausea and vomiting which has been intermittently occurring for the past one month. On recent hospitalization, worsening renal function noted and she is being considered for dialysis initiation. Recently she describes substernal burning with sour sensation in mouth along with intermittent non-bloody emesis which happens every 3-4 days. She was asked to take oral PPI therapy but has not been compliant with that as outpatient. She denies abdominal pain, weight loss, change in bowel habits. No prior endoscopic evaluation. HIV DM - previously uncontrolled CKD DVT s/p IVC filter PVD, recent lower extremity amputation Vomiting - Diet as tolerated, suggest small frequent meals throughout the day - Begin PPI therapy - Anti-emetic therapy PRN - Maintain strict glycemic control as symptoms may potentially be related to gastroparesis - Continue with antibiotic therapy as per ID - Follow up nephrology recommendations regarding progressive renal dysfunction - Patient may benefit from EGD electively as outpatient following resolution of acute infectious and renal issues. No planned GI intervention, also patient currently declining any further evaluation. Will sign off case, please reconsult as necessary, thank you.
[2017-08-26] MEDS: Multivitamin Vitamin B Complex (Nephro-Vite) Tab PO SCH (08:58)
[2017-08-26] MEDS ORDERED: EPOETIN ALFA 10,000 UNIT/ML ML SC SCH (10:00)
[2017-08-26] MEDS: Saccharomyces Boulardi 250 mg Cap PO SCH ×2 (10:36→17:43)
[2017-08-26] MEDS: EPOETIN ALFA 10,000 UNIT/ML ML SC SCH (11:32)
[2017-08-26] MEDS: Epoetin Alfa 20000 UNIT/ML Inj SC SCH (11:32)
[2017-08-26] MEDS: Cefepime IV 1 gm in Dextrose 1 GM/50 ML BAG IVPB SCH (11:41)
--- NOTE | 2017-08-26 13:58 | CP.PCM.PN ---
Subjective - Date & Time of Evaluation Date of Evaluation: 08/26/17 Time of Evaluation: 13:53 - Subjective Subjective: Podiatry Progress note for Dr. Coy 36 year old female seen at bedside today 20 days s/p L foot Chopart's amputation (DOS 08/06/17). Patient resting in bed comfortably, NAD. AAOx3. Patient reports no pain to the Left foot today. Patient admits to having fever over night. No new pedal complains. Objective - Vital Signs/Intake and Output Vital Signs (last 24 hours): Temp Pulse Resp BP Pulse Ox 99.1 F 93 H 20 137/83 97 08/26/17 13:10 08/26/17 13:10 08/26/17 13:10 08/26/17 13:10 08/26/17 13:10 Intake and Output: 08/26/17 08/26/17 06:59 18:59 Output Total 250 Balance -250 - Medications Medications: Current Medications Abacavir Sulfate (Ziagen) 300 mg PO BID [facility] PRN Reason: Protocol Last Admin: 08/26/17 10:55 Dose: 300 mg Amlodipine Besylate (Norvasc) 5 mg PO DAILY [facility] Last Admin: 08/26/17 10:36 Dose: 5 mg Calcitriol (Rocaltrol) 0.25 mcg PO TTS [facility] Last Admin: 08/26/17 10:55 Dose: 0.25 mcg Calcium Acetate (Phoslo) 1,334 mg PO TIDCC [facility] Last Admin: 08/26/17 13:00 Dose: 1,334 mg Diphenhydramine HCl (Benadryl) 25 mg IVP Q6 PRN PRN Reason: Itching / Pruritus Dolutegravir Sodium (Tivicay) 50 mg PO DAILY [facility] PRN Reason: Protocol Last Admin: 08/26/17 10:55 Dose: 50 mg Epoetin Anival (Procrit) 10,000 unit SC TuThSa [facility] Last Admin: 08/26/17 11:32 Dose: 10,000 unit Epoetin Anival (Procrit) 20,000 unit SC TuThSa [facility] Last Admin: 08/26/17 11:32 Dose: 20,000 unit Cefepime HCl (Maxipime Iv 1 Gm Premix) 1 gm in 50 mls @ 50 mls/hr IVPB DAILY [facility] Last Admin: 08/26/17 11:41 Dose: 50 mls/hr Daptomycin 500 mg/ Sodium (Chloride) 100 mls @ 100 mls/hr IV Q48H [facility] PRN Reason: Protocol Stop: 08/27/17 15:01 Last Admin: 08/24/17 14:59 Dose: 100 mls/hr Insulin Glargine (Lantus) 16 unit SC HS [facility] Last Admin: 08/25/17 21:05 Dose: Not Given Insulin Human Regular (Novolin R) 0 unit SC ACHS [facility] PRN Reason: Protocol Last Admin: 08/26/17 12:10 Dose: Not Given Labetalol HCl (Normodyne) 300 mg PO Q8 [facility] Last Admin: 08/26/17 05:24 Dose: 300 mg Lamivudine (Epivir) 50 mg PO QD7 [facility] PRN Reason: Protocol Morphine Sulfate (Morphine) 1 mg IVP Q6H PRN PRN Reason: Pain, moderate (4-7) Last Admin: 08/26/17 13:10 Dose: 1 mg Ondansetron HCl (Zofran Inj) 4 mg IVP Q8H PRN PRN Reason: Nausea/Vomiting Last Admin: 08/25/17 14:43 Dose: 4 mg Pantoprazole Sodium (Protonix Ec Tab) 40 mg PO ACB [facility] Last Admin: 08/26/17 08:30 Dose: 40 mg Saccharomyces Boulardii (Florastor) 250 mg PO BID [facility] Last Admin: 08/26/17 10:36 Dose: 250 mg Sertraline HCl (Zoloft) 50 mg PO DAILY [facility] Last Admin: 08/26/17 10:36 Dose: 50 mg Vitamin B Complex/Vit C/Folic Acid (Nephro-Rosario) 1 tab PO 0800 [facility] Last Admin: 08/26/17 08:58 Dose: 1 tab Zolpidem Tartrate (Ambien) 5 mg PO HS PRN PRN Reason: Insomnia Last Admin: 08/26/17 00:33 Dose: 5 mg - Labs Labs: 08/25/17 14:54 08/25/17 14:54 - Constitutional Appears: Well, Non-toxic, No Acute Distress - Head Exam Head Exam: ATRAUMATIC - Extremities Exam Additional comments: Left Lower Extremity exam: dressing appears c/d/i with no strikethrough evident DERM- surgical site remains intact with surgical site well coapted along medial aspect, plantarlateral surgical site appears macerated with gross lichenification of pedal skin; the lateral distal stump site has a circular opening which measures approx 4 cm x 3 cm x 1cm which appears to be granulating inwards, mild amount of serosanginous drainage noted from wound, moderate malodor present VASC- DP pulse faintly palpable, skin temp runs warm to warm, nonpitting edema noted to left leg extending from knee joint distally into stump NEURO- gross and protective pedal sensation are diminished ORTHO- minimal tenderness noted to palpation of the surgical site laterally and plantarly - Neurological Exam Neurological Exam: Alert, Awake, Oriented x3 - Psychiatric Exam Psychiatric exam: Normal Affect, Normal Mood - Skin Skin Exam: Normal Color, Warm Assessment and Plan - Assessment and Plan (Free Text) Assessment: 36 year old female patient seen 20 days s/p Chopart's amputation (DOS 08/06/17) Plan: Patient examined and evaluated at bedside Discussed plan with attending, Dr. Coy Labs and vitals reviewed Continue local wound care - saline cleanse, betadine soaked gauze, ABD, kerlix, RAFFY Intra-op wound cultures: Coagulase Neg Staph Continue abx as per ID Continue pain mgt per primary team Patient may be PWB to left heel in surgical shoe with the assistance of a walker Podiatry will continue to follow
[2017-08-26 14:04] LABS: BASO # 0.1 K/uL (0.0-0.2); BASO % 0.5 % (0.0-2.0); EOS # 0.5 K/uL (0.0-0.7); EOS % 3.7 % (0.0-4.0); HEMOGLOBIN 8.9 g/dL (11.0-16.0); LYMPH # 3.3 K/uL (1.0-4.3); LYMPH % 25.2 % (20.0-40.0); MEAN CELL VOLUME 86.6 fL (81.0-99.0); MEAN CORPUSCULAR HEMOGLOBIN 28.9 pg (27.0-31.0); MEAN CORPUSCULAR HGB CONC 33.4 g/dL (33.0-37.0); MEAN PLATELET VOLUME 6.4 fL (7.2-11.7); MONO # 1.5 K/uL (0.0-0.8); MONO % 11.7 % (0.0-10.0); NEUT # 7.7 K/uL (1.8-7.0); NEUT % 58.9 % (50.0-75.0); NRBC % 0.1 % (0.0-2.0); RBC 3.08 Mil/uL (3.80-5.20); RED CELL DISTRIBUTION WIDTH 18.7 % (11.5-14.5); WHITE BLOOD COUNT 13.1 K/uL (4.8-10.8)
[2017-08-26 14:16] LABS: ALB/GLOB RATIO 0.5 (1.0-2.1); CALCIUM 9.3 mg/dl (8.6-10.4); URIC ACID 11.7 mg/dL (2.2-7.5)
[2017-08-26] MEDS: DAPTOmycin 500 MG in Sodium Chloride 0.9% 100 ML IV SCH (15:00)
--- NOTE | 2017-08-26 18:11 | CP.PCM.PN ---
Subjective - Date & Time of Evaluation Date of Evaluation: 08/26/17 Time of Evaluation: 13:00 - Subjective Subjective: Patient denies nausea/vomiting or sob; has been having intermittent diarrhea; tolerating diet; now agreeable for AVF creation; Objective - Vital Signs/Intake and Output Vital Signs (last 24 hours): Temp Pulse Resp BP Pulse Ox 98.1 F 88 20 139/78 97 08/26/17 15:16 08/26/17 15:16 08/26/17 15:16 08/26/17 15:16 08/26/17 15:16 Intake and Output: 08/26/17 08/26/17 06:59 18:59 Intake Total 750 Output Total 250 400 Balance -250 350 - Medications Medications: Current Medications Abacavir Sulfate (Ziagen) 300 mg PO BID [facility] PRN Reason: Protocol Last Admin: 08/26/17 17:43 Dose: 300 mg Amlodipine Besylate (Norvasc) 5 mg PO DAILY [facility] Last Admin: 08/26/17 10:36 Dose: 5 mg Calcitriol (Rocaltrol) 0.25 mcg PO TTS [facility] Last Admin: 08/26/17 10:55 Dose: 0.25 mcg Calcium Acetate (Phoslo) 1,334 mg PO TIDCC [facility] Last Admin: 08/26/17 17:43 Dose: 1,334 mg Diphenhydramine HCl (Benadryl) 25 mg IVP Q6 PRN PRN Reason: Itching / Pruritus Dolutegravir Sodium (Tivicay) 50 mg PO DAILY [facility] PRN Reason: Protocol Last Admin: 08/26/17 10:55 Dose: 50 mg Epoetin Anival (Procrit) 10,000 unit SC TuThSa [facility] Last Admin: 08/26/17 11:32 Dose: 10,000 unit Epoetin Anival (Procrit) 20,000 unit SC TuThSa [facility] Last Admin: 08/26/17 11:32 Dose: 20,000 unit Cefepime HCl (Maxipime Iv 1 Gm Premix) 1 gm in 50 mls @ 50 mls/hr IVPB DAILY [facility] Last Admin: 08/26/17 11:41 Dose: 50 mls/hr Daptomycin 500 mg/ Sodium (Chloride) 100 mls @ 100 mls/hr IV Q48H [facility] PRN Reason: Protocol Stop: 08/27/17 15:01 Last Admin: 08/26/17 15:00 Dose: 100 mls/hr Insulin Glargine (Lantus) 16 unit SC HS [facility] Last Admin: 08/25/17 21:05 Dose: Not Given Insulin Human Regular (Novolin R) 0 unit SC ACHS [facility] PRN Reason: Protocol Last Admin: 08/26/17 17:44 Dose: 1 unit Labetalol HCl (Normodyne) 300 mg PO Q8 [facility] Last Admin: 08/26/17 14:27 Dose: 300 mg Lamivudine (Epivir) 50 mg PO QD7 [facility] PRN Reason: Protocol Morphine Sulfate (Morphine) 1 mg IVP Q6H PRN PRN Reason: Pain, moderate (4-7) Last Admin: 08/26/17 13:10 Dose: 1 mg Ondansetron HCl (Zofran Inj) 4 mg IVP Q8H PRN PRN Reason: Nausea/Vomiting Last Admin: 08/25/17 14:43 Dose: 4 mg Pantoprazole Sodium (Protonix Ec Tab) 40 mg PO ACB [facility] Last Admin: 08/26/17 08:30 Dose: 40 mg Saccharomyces Boulardii (Florastor) 250 mg PO BID [facility] Last Admin: 08/26/17 17:43 Dose: 250 mg Sertraline HCl (Zoloft) 50 mg PO DAILY [facility] Last Admin: 08/26/17 10:36 Dose: 50 mg Sodium Bicarbonate (Sodium Bicarbonate Tab) 650 mg PO BID [facility] Vitamin B Complex/Vit C/Folic Acid (Nephro-Rosario) 1 tab PO 0800 [facility] Last Admin: 08/26/17 08:58 Dose: 1 tab Zolpidem Tartrate (Ambien) 5 mg PO HS PRN PRN Reason: Insomnia Last Admin: 08/26/17 00:33 Dose: 5 mg - Labs Labs: 08/26/17 13:53 08/26/17 13:53 - Constitutional Appears: Non-toxic, No Acute Distress - Eye Exam Eye Exam: absent: Scleral icterus - ENT Exam ENT Exam: Mucous Membranes Moist - Respiratory Exam Respiratory Exam: Clear to Ausculation Bilateral. absent: Respiratory Distress - Cardiovascular Exam Cardiovascular Exam: RRR, +S1, +S2 - GI/Abdominal Exam GI & Abdominal Exam: Soft. absent: Distended, Tenderness - Extremities Exam Additional comments: mild lower leg edema L >> R - Neurological Exam Neurological Exam: Alert, Awake - Psychiatric Exam Psychiatric exam: absent: Agitated - Skin Skin Exam: Warm. 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, wishes to defer until next week; will discuss with vascular surgery; should ideally have procedure done before discharge as AVF maturation takes ~2 months and it is in patient's best interest to avoid HD with a catheter if possilbe; Status: Acute (3) Hypertensive CKD (chronic kidney disease) Assessment & Plan: BP controlled on amlodipine and labetalol, continue same; Status: Chronic (4) Anemia in CKD (chronic kidney disease) Assessment & Plan: Hgb improved, continue with EPO 30,000 u three times per week; Status: Acute (5) Chronic kidney disease-mineral and bone disorder Status: Acute (6) Abscess and cellulitis Assessment & Plan: Patient with PICC line being used for IV access and blood draws; relatively contraindicated for patient who will become HD dependent as we need to preserve peripheral veins for future HD access; one option is to place port-a-cath; would need to wait until cultures negative for 48 hrs; discussed with ID and patient would benefit from line holiday before this is done, will plan to d/c PICC line over weekend; continue abx dosed for CrCl < 15 ml/min; Status: Acute (7) HIV (human immunodeficiency virus infection) Status: Chronic
--- NOTE | 2017-08-26 19:28 | CP.PCM.PN ---
Subjective - Date & Time of Evaluation Date of Evaluation: 08/26/17 Time of Evaluation: 10:00 - Subjective Subjective: seen on rounds iv rx renewed questions answered Objective - Vital Signs/Intake and Output Vital Signs (last 24 hours): Temp Pulse Resp BP Pulse Ox 98.1 F 88 20 139/78 97 08/26/17 15:16 08/26/17 15:16 08/26/17 15:16 08/26/17 15:16 08/26/17 15:16 Intake and Output: 08/26/17 08/27/17 18:59 06:59 Intake Total 750 Output Total 400 Balance 350 - Medications Medications: Current Medications Abacavir Sulfate (Ziagen) 300 mg PO BID [facility] PRN Reason: Protocol Last Admin: 08/26/17 17:43 Dose: 300 mg Amlodipine Besylate (Norvasc) 5 mg PO DAILY [facility] Last Admin: 08/26/17 10:36 Dose: 5 mg Calcitriol (Rocaltrol) 0.25 mcg PO TTS [facility] Last Admin: 08/26/17 10:55 Dose: 0.25 mcg Calcium Acetate (Phoslo) 1,334 mg PO TIDCC [facility] Last Admin: 08/26/17 17:43 Dose: 1,334 mg Diphenhydramine HCl (Benadryl) 25 mg IVP Q6 PRN PRN Reason: Itching / Pruritus Dolutegravir Sodium (Tivicay) 50 mg PO DAILY [facility] PRN Reason: Protocol Last Admin: 08/26/17 10:55 Dose: 50 mg Epoetin Anival (Procrit) 10,000 unit SC [facility] Last Admin: 08/26/17 11:32 Dose: 10,000 unit Epoetin Anival (Procrit) 20,000 unit SC [facility] Last Admin: 08/26/17 11:32 Dose: 20,000 unit Cefepime HCl (Maxipime Iv 1 Gm Premix) 1 gm in 50 mls @ 50 mls/hr IVPB DAILY [facility] Last Admin: 08/26/17 11:41 Dose: 50 mls/hr Daptomycin 500 mg/ Sodium (Chloride) 100 mls @ 100 mls/hr IV Q48H [facility] PRN Reason: Protocol Stop: 08/27/17 15:01 Last Admin: 08/26/17 15:00 Dose: 100 mls/hr Insulin Glargine (Lantus) 16 unit SC HS [facility] Last Admin: 08/25/17 21:05 Dose: Not Given Insulin Human Regular (Novolin R) 0 unit SC ACHS [facility] PRN Reason: Protocol Last Admin: 08/26/17 17:44 Dose: 1 unit Labetalol HCl (Normodyne) 300 mg PO Q8 [facility] Last Admin: 08/26/17 14:27 Dose: 300 mg Lamivudine (Epivir) 50 mg PO QD7 [facility] PRN Reason: Protocol Morphine Sulfate (Morphine) 1 mg IVP Q6H PRN PRN Reason: Pain, moderate (4-7) Last Admin: 08/26/17 13:10 Dose: 1 mg Ondansetron HCl (Zofran Inj) 4 mg IVP Q8H PRN PRN Reason: Nausea/Vomiting Last Admin: 08/25/17 14:43 Dose: 4 mg Pantoprazole Sodium (Protonix Ec Tab) 40 mg PO ACB [facility] Last Admin: 08/26/17 08:30 Dose: 40 mg Saccharomyces Boulardii (Florastor) 250 mg PO BID [facility] Last Admin: 08/26/17 17:43 Dose: 250 mg Sertraline HCl (Zoloft) 50 mg PO DAILY [facility] Last Admin: 08/26/17 10:36 Dose: 50 mg Sodium Bicarbonate (Sodium Bicarbonate Tab) 650 mg PO BID [facility] Vitamin B Complex/Vit C/Folic Acid (Nephro-Rosario) 1 tab PO 0800 [facility] Last Admin: 08/26/17 08:58 Dose: 1 tab Zolpidem Tartrate (Ambien) 5 mg PO HS PRN PRN Reason: Insomnia Last Admin: 08/26/17 00:33 Dose: 5 mg - Labs Labs: 08/26/17 13:53 08/26/17 13:53 - Constitutional Appears: Non-toxic, Chronically Ill - Head Exam Head Exam: NORMOCEPHALIC - Eye Exam Eye Exam: PERRL - ENT Exam ENT Exam: Mucous Membranes Dry - Neck Exam Neck Exam: absent: Lymphadenopathy - Respiratory Exam Respiratory Exam: Decreased Breath Sounds - Cardiovascular Exam Cardiovascular Exam: REGULAR RHYTHM - GI/Abdominal Exam GI & Abdominal Exam: Distended - Rectal Exam Rectal Exam: Deferred Assessment and Plan (1) GAEL (acute kidney injury) Status: Acute (2) HIV (human immunodeficiency virus) risk factors complicating Status: Acute (3) Osteomyelitis Status: Acute (4) Ulcer of foot Status: Acute (5) Abscess and cellulitis Status: Acute (6) Gangrene associated with type 2 diabetes mellitus Status: Acute (7) Hypertension Status: Acute (8) Left against medical advice Status: Acute
[2017-08-26] MEDS: (Lantus) Insulin Glargine, Recombinant SC SCH (21:44)
[2017-08-27] MEDS: Morphine 4 MG/ML VIAL IVP PRN ×4 (02:49→22:28)
[2017-08-27] MEDS: Labetalol Hydrochloride 300 mg Tab PO SCH ×4 (06:23→22:28)
[2017-08-27] MEDS: Pantoprazole 40 mg EC Tab PO SCH (06:30)
[2017-08-27] MEDS: (Novolin R) Insulin Human Regular 100 units/ml vial SC SCH ×4 (08:11→23:35)
[2017-08-27] MEDS: Multivitamin Vitamin B Complex (Nephro-Vite) Tab PO SCH (09:00)
[2017-08-27] MEDS: Cefepime IV 1 gm in Dextrose 1 GM/50 ML BAG IVPB SCH (09:31)
--- NOTE | 2017-08-27 09:41 | PN ---
DATE: 08/26/2017 SUBJECTIVE: The patient was seen and examined on bedside on 08/26/2017. Lying down comfortably. Last night had good sleep. Tolerating diet. Now agreeable for AVF creation after discussing with her mother. PHYSICAL EXAMINATION: VITAL SIGNS: Temperature 98.1, pulse 88, respiratory rate 20, blood pressure 139/78, pulse oximetry 97. HEENT: Head normocephalic, atraumatic. Eyes, PERRLA. Extraocular movements intact. Conjunctivae clear. Nose Patent. Mucous membranes moist. NECK: Supple. No carotid bruits, JVD or thyromegaly. CHEST: Bilaterally symmetrical. HEART: S1 and S2 positive. LUNGS: Clear to auscultation. ABDOMEN: Soft. Bowel sounds positive. No organomegaly. EXTREMITIES: Upper extremity, no edema, no cyanosis. Lower extremity, has dressing boots. NEUROLOGIC: The patient is awake, alert. Moving all 4 extremities. No focal deficits. MEDICATIONS: Norvasc, PhosLo, Benadryl, Procrit, Maxipime, Lantus, NovoLog, labetalol, morphine, Zofran, Protonix, Zoloft, Ambien. LABORATORY DATA: White blood cells 13.1, hemoglobin 8.9, hematocrit 26.6, platelets 650. Sodium 137, potassium 4.7, BUN 59, creatinine 5.5, glucose 138. ASSESSMENT AND PLAN: Zia Johnson is a 36-year-old patient with leukocytosis, anemia, thrombocytosis, renal insufficiency. First she was refusing dialysis, now she agrees to get arteriovenous fistula at least. Diabetes mellitus, has acute kidney injury, chronic kidney disease stage 4, hypertensive chronic kidney disease, anemia in chronic kidney disease, chronic kidney disease mineral and bone density, abscess and cellulitis, human immunodeficiency virus positive. Getting antibiotics as Dr. Jarred Del Valle. 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 Patient is seen by Dr. Napoleon Hdez because of diarrhea and some nausea and vomiting. Appreciated everybody's help. Repeat labs. We will follow. Alexandria Simmons MD [facility] # [id number] MTDD
[2017-08-27] MEDS: Saccharomyces Boulardi 250 mg Cap PO SCH ×2 (10:00→17:27)
--- NOTE | 2017-08-27 15:59 | CP.PCM.PN ---
Subjective - Date & Time of Evaluation Date of Evaluation: 08/27/17 Time of Evaluation: 13:57 - Subjective Subjective: Podiatry Progress note for Dr. 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 Patient resting in bed comfortably, NAD. AAOx3. Patient states she is tired and wants to sleep in, refusing dressing change today. No new pedal complains. Objective - Vital Signs/Intake and Output Vital Signs (last 24 hours): Temp Pulse Resp BP Pulse Ox 99.2 F 82 20 150/82 97 08/27/17 08:46 08/27/17 09:30 08/27/17 08:46 08/27/17 09:30 08/27/17 08:46 Intake and Output: 08/27/17 08/27/17 06:59 18:59 Intake Total 150 650 Output Total 1175 600 Balance -1025 50 - Medications Medications: Current Medications Abacavir Sulfate (Ziagen) 300 mg PO BID [facility] PRN Reason: Protocol Amlodipine Besylate (Norvasc) 5 mg PO DAILY [facility] Last Admin: 08/27/17 09:14 Dose: 5 mg Calcitriol (Rocaltrol) 0.25 mcg PO TTS [facility] Last Admin: 08/26/17 10:55 Dose: 0.25 mcg Calcium Acetate (Phoslo) 1,334 mg PO TIDCC [facility] Last Admin: 08/27/17 12:43 Dose: Not Given Diphenhydramine HCl (Benadryl) 25 mg IVP Q6 PRN PRN Reason: Itching / Pruritus Dolutegravir Sodium (Tivicay) 50 mg PO DAILY [facility] PRN Reason: Protocol Last Admin: 08/27/17 10:00 Dose: Not Given Epoetin Anival (Procrit) 10,000 unit SC TuTa [facility] Last Admin: 08/26/17 11:32 Dose: 10,000 unit Epoetin Anival (Procrit) 20,000 unit SC TuTa [facility] Last Admin: 08/26/17 11:32 Dose: 20,000 unit Cefepime HCl (Maxipime Iv 1 Gm Premix) 1 gm in 50 mls @ 50 mls/hr IVPB DAILY [facility] Last Admin: 08/27/17 09:31 Dose: 50 mls/hr Insulin Glargine (Lantus) 16 unit SC HS [facility] Last Admin: 08/26/17 21:44 Dose: Not Given Insulin Human Regular (Novolin R) 0 unit SC ACHS [facility] PRN Reason: Protocol Last Admin: 08/27/17 12:20 Dose: Not Given Labetalol HCl (Normodyne) 300 mg PO Q8 [facility] Last Admin: 08/27/17 14:43 Dose: Not Given Lamivudine (Epivir) 50 mg PO QD7 [facility] PRN Reason: Protocol Morphine Sulfate (Morphine) 1 mg IVP Q6H PRN PRN Reason: Pain, moderate (4-7) Last Admin: 08/27/17 09:38 Dose: 1 mg Ondansetron HCl (Zofran Inj) 4 mg IVP Q8H PRN PRN Reason: Nausea/Vomiting Last Admin: 08/27/17 09:25 Dose: 4 mg Pantoprazole Sodium (Protonix Ec Tab) 40 mg PO ACB [facility] Last Admin: 08/27/17 06:30 Dose: 40 mg Saccharomyces Boulardii (Florastor) 250 mg PO BID [facility] Last Admin: 08/27/17 10:00 Dose: Not Given Sertraline HCl (Zoloft) 50 mg PO DAILY [facility] Last Admin: 08/27/17 09:15 Dose: 50 mg Sodium Bicarbonate (Sodium Bicarbonate Tab) 650 mg PO BID [facility] Last Admin: 08/27/17 09:15 Dose: 650 mg Vitamin B Complex/Vit C/Folic Acid (Nephro-Rosario) 1 tab PO 0800 [facility] Last Admin: 08/27/17 09:00 Dose: 1 tab Zolpidem Tartrate (Ambien) 5 mg PO HS PRN PRN Reason: Insomnia Last Admin: 08/27/17 00:58 Dose: 5 mg - Labs Labs: 08/26/17 13:53 08/26/17 13:53 - Constitutional Appears: Well, Non-toxic, No Acute Distress - Extremities Exam Additional comments: Dressing to Left lower extremity remains clean dry and intact without any strikethrough - Psychiatric Exam Psychiatric exam: Normal Mood Assessment and Plan - Assessment and Plan (Free Text) Assessment: 36 year old female patient seen 21 days s/p Chopart's amputation (DOS 08/06/17) Plan: Patient examined and evaluated at bedside Discussed plan with attending, Dr. Coy Labs and vitals reviewed Intra-op wound cultures: Coagulase Neg Staph Continue abx as per ID Continue pain mgt per primary team Patient may be PWB to left heel in surgical shoe with the assistance of a walker Podiatry will continue to follow
--- NOTE | 2017-08-27 17:22 | CP.PCM.PN ---
Subjective - Date & Time of Evaluation Date of Evaluation: 08/27/17 Time of Evaluation: 08:00 - Subjective Subjective: events noted IV rx in progress Objective - Vital Signs/Intake and Output Vital Signs (last 24 hours): Temp Pulse Resp BP Pulse Ox 99.7 F H 86 20 173/84 H 97 08/27/17 15:00 08/27/17 15:00 08/27/17 15:00 08/27/17 15:00 08/27/17 15:00 Intake and Output: 08/27/17 08/27/17 06:59 18:59 Intake Total 150 650 Output Total 1175 600 Balance -1025 50 - Medications Medications: Current Medications Abacavir Sulfate (Ziagen) 300 mg PO BID [facility] PRN Reason: Protocol Amlodipine Besylate (Norvasc) 5 mg PO DAILY [facility] Last Admin: 08/27/17 09:14 Dose: 5 mg Calcitriol (Rocaltrol) 0.25 mcg PO TTS [facility] Last Admin: 08/26/17 10:55 Dose: 0.25 mcg Calcium Acetate (Phoslo) 1,334 mg PO TIDCC [facility] Last Admin: 08/27/17 16:44 Dose: Not Given Diphenhydramine HCl (Benadryl) 25 mg IVP Q6 PRN PRN Reason: Itching / Pruritus Dolutegravir Sodium (Tivicay) 50 mg PO DAILY [facility] PRN Reason: Protocol Last Admin: 08/27/17 10:00 Dose: Not Given Epoetin Anival (Procrit) 10,000 unit SC TuTa [facility] Last Admin: 08/26/17 11:32 Dose: 10,000 unit Epoetin Anival (Procrit) 20,000 unit SC TuTa [facility] Last Admin: 08/26/17 11:32 Dose: 20,000 unit Cefepime HCl (Maxipime Iv 1 Gm Premix) 1 gm in 50 mls @ 50 mls/hr IVPB DAILY [facility] Last Admin: 08/27/17 09:31 Dose: 50 mls/hr Insulin Glargine (Lantus) 16 unit SC HS [facility] Last Admin: 08/26/17 21:44 Dose: Not Given Insulin Human Regular (Novolin R) 0 unit SC ACHS [facility] PRN Reason: Protocol Last Admin: 08/27/17 16:33 Dose: Not Given Labetalol HCl (Normodyne) 300 mg PO Q8 [facility] Last Admin: 08/27/17 14:43 Dose: Not Given Lamivudine (Epivir) 50 mg PO QD7 [facility] PRN Reason: Protocol Morphine Sulfate (Morphine) 1 mg IVP Q6H PRN PRN Reason: Pain, moderate (4-7) Last Admin: 08/27/17 16:01 Dose: 1 mg Ondansetron HCl (Zofran Inj) 4 mg IVP Q8H PRN PRN Reason: Nausea/Vomiting Last Admin: 08/27/17 09:25 Dose: 4 mg Pantoprazole Sodium (Protonix Ec Tab) 40 mg PO ACB [facility] Last Admin: 08/27/17 06:30 Dose: 40 mg Saccharomyces Boulardii (Florastor) 250 mg PO BID [facility] Last Admin: 08/27/17 10:00 Dose: Not Given Sertraline HCl (Zoloft) 50 mg PO DAILY [facility] Last Admin: 08/27/17 09:15 Dose: 50 mg Sodium Bicarbonate (Sodium Bicarbonate Tab) 650 mg PO BID [facility] Last Admin: 08/27/17 09:15 Dose: 650 mg Vitamin B Complex/Vit C/Folic Acid (Nephro-Rosario) 1 tab PO 0800 [facility] Last Admin: 08/27/17 09:00 Dose: 1 tab Zolpidem Tartrate (Ambien) 5 mg PO HS PRN PRN Reason: Insomnia Last Admin: 08/27/17 00:58 Dose: 5 mg - Labs Labs: 08/26/17 13:53 08/26/17 13:53 - Constitutional Appears: Non-toxic - Head Exam Head Exam: NORMOCEPHALIC - Eye Exam Eye Exam: PERRL - ENT Exam ENT Exam: Mucous Membranes Dry - Neck Exam Neck Exam: absent: Lymphadenopathy - Respiratory Exam Respiratory Exam: Decreased Breath Sounds - Cardiovascular Exam Cardiovascular Exam: REGULAR RHYTHM - GI/Abdominal Exam GI & Abdominal Exam: Distended, Soft - Rectal Exam Rectal Exam: Deferred - Exam Exam: NORMAL INSPECTION - Extremities Exam Extremities Exam: Pedal Edema - Back Exam Back Exam: absent: CVA tenderness (L), CVA tenderness (R) - Neurological Exam Neurological Exam: Alert, Awake, CN II-XII Intact, Oriented x3 - Psychiatric Exam Psychiatric exam: Depressed Assessment and Plan (1) GAEL (acute kidney injury) Status: Acute (2) HIV (human immunodeficiency virus) risk factors complicating Status: Acute (3) Osteomyelitis Status: Acute (4) Ulcer of foot Status: Acute (5) Abscess and cellulitis Status: Acute (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
[2017-08-27] MEDS: DAPTOmycin 500 MG in Sodium Chloride 0.9% 100 ML IV SCH (18:52)
--- NOTE | 2017-08-27 19:39 | CP.PCM.PN ---
Subjective - Date & Time of Evaluation Date of Evaluation: 08/27/17 Time of Evaluation: 12:00 - Subjective Subjective: Patient reports feeling well; no sob; reports vomiting today after taking one of the meds (unclear which one); now refusing AVF creation procedure; Objective - Vital Signs/Intake and Output Vital Signs (last 24 hours): Temp Pulse Resp BP Pulse Ox 99.7 F H 86 20 173/84 H 97 08/27/17 15:00 08/27/17 15:00 08/27/17 15:00 08/27/17 15:00 08/27/17 15:00 Intake and Output: 08/27/17 08/28/17 18:59 06:59 Intake Total 650 Output Total 600 Balance 50 - Medications Medications: Current Medications Abacavir Sulfate (Ziagen) 300 mg PO BID [facility] PRN Reason: Protocol Last Admin: 08/27/17 17:29 Dose: 300 mg Amlodipine Besylate (Norvasc) 5 mg PO DAILY [facility] Last Admin: 08/27/17 09:14 Dose: 5 mg Calcitriol (Rocaltrol) 0.25 mcg PO TTS [facility] Last Admin: 08/26/17 10:55 Dose: 0.25 mcg Calcium Acetate (Phoslo) 1,334 mg PO TIDCC [facility] Last Admin: 08/27/17 16:44 Dose: Not Given Diphenhydramine HCl (Benadryl) 25 mg IVP Q6 PRN PRN Reason: Itching / Pruritus Dolutegravir Sodium (Tivicay) 50 mg PO DAILY [facility] PRN Reason: Protocol Last Admin: 08/27/17 10:00 Dose: Not Given Epoetin Anival (Procrit) 10,000 unit SC TuTa [facility] Last Admin: 08/26/17 11:32 Dose: 10,000 unit Epoetin Anival (Procrit) 20,000 unit SC TuTa [facility] Last Admin: 08/26/17 11:32 Dose: 20,000 unit Daptomycin 500 mg/ Sodium (Chloride) 100 mls @ 100 mls/hr IV Q48H [facility] PRN Reason: Protocol Stop: 09/01/17 19:01 Last Admin: 08/27/17 18:52 Dose: 100 mls/hr Insulin Glargine (Lantus) 16 unit SC [facility] Last Admin: 08/26/17 21:44 Dose: Not Given Insulin Human Regular (Novolin R) 0 unit SC ACHS [facility] PRN Reason: Protocol Last Admin: 08/27/17 16:33 Dose: Not Given Labetalol HCl (Normodyne) 300 mg PO Q8 [facility] Last Admin: 08/27/17 18:59 Dose: 300 mg Lamivudine (Epivir) 50 mg PO QD7 [facility] PRN Reason: Protocol Morphine Sulfate (Morphine) 1 mg IVP Q6H PRN PRN Reason: Pain, moderate (4-7) Last Admin: 08/27/17 16:01 Dose: 1 mg Ondansetron HCl (Zofran Inj) 4 mg IVP Q8H PRN PRN Reason: Nausea/Vomiting Last Admin: 08/27/17 09:25 Dose: 4 mg Pantoprazole Sodium (Protonix Ec Tab) 40 mg PO ACB [facility] Last Admin: 08/27/17 06:30 Dose: 40 mg Saccharomyces Boulardii (Florastor) 250 mg PO BID [facility] Last Admin: 08/27/17 17:27 Dose: 250 mg Sertraline HCl (Zoloft) 50 mg PO DAILY [facility] Last Admin: 08/27/17 09:15 Dose: 50 mg Sodium Bicarbonate (Sodium Bicarbonate Tab) 650 mg PO BID [facility] Last Admin: 08/27/17 17:27 Dose: 650 mg Vitamin B Complex/Vit C/Folic Acid (Nephro-Rosario) 1 tab PO 0800 [facility] Last Admin: 08/27/17 09:00 Dose: 1 tab Zolpidem Tartrate (Ambien) 5 mg PO HS PRN PRN Reason: Insomnia Last Admin: 08/27/17 00:58 Dose: 5 mg - Labs Labs: 08/26/17 13:53 08/26/17 13:53 - Constitutional Appears: Non-toxic, No Acute Distress - Eye Exam Eye Exam: Normal appearance. absent: Scleral icterus - ENT Exam ENT Exam: Mucous Membranes Moist - Respiratory Exam Respiratory Exam: Clear to Ausculation Bilateral. absent: Respiratory Distress - Cardiovascular Exam Cardiovascular Exam: RRR, +S1, +S2 - GI/Abdominal Exam GI & Abdominal Exam: Soft. absent: Distended, Tenderness - Extremities Exam Additional comments: mild lower leg edema L >> R; - Neurological Exam Neurological Exam: Alert, Awake - Psychiatric Exam Psychiatric exam: absent: Agitated - Skin Skin Exam: Warm. absent: Cyanosis Assessment and Plan (1) GAEL (acute kidney injury) Assessment & Plan: GAEL on CKD IV/V; likely ATN that is resolving though no labs available today; no indication to initiate HD for now; however, overall renal prognosis is that patient will need dialysis in the coming 6-12 months and that there is always high risk for another GAEL insult that will precipitate the need for dialysis even sooner; patient initially agreed to AVF placement but is now refusing; -continue to obtain labs daily; -avoid nephrotoxic agents (NSAIDS, phosphate enema, etc) Status: Acute (2) CKD (chronic kidney disease), stage IV Assessment & Plan: see above Status: Chronic (3) Hypertensive CKD (chronic kidney disease) Assessment & Plan: BP has been mostly controlled, continue current meds; Status: Chronic (4) Anemia in CKD (chronic kidney disease) Assessment & Plan: Hgb stable but below goal, continue EPO qTTS; Status: Acute (5) Chronic kidney disease-mineral and bone disorder Assessment & Plan: On phoslo and calcitriol, continue; will check PTH periodically; Status: Acute (6) Abscess and cellulitis Assessment & Plan: Still with low grade temp; on dapto q48h, continue to dose for CrCl < 20 ml/min ; PICC line should ideally be removed though other options limited for now; Status: Acute (7) HIV (human immunodeficiency virus infection) Assessment & Plan: On HAART, needs to continue regularly; Status: Chronic
[2017-08-27 20:18] LABS: BASO % 0.3 % (0.0-2.0); EOS # 0.5 K/uL (0.0-0.7); EOS % 3.2 % (0.0-4.0); HEMOGLOBIN 8.6 g/dL (11.0-16.0); LYMPH # 2.8 K/uL (1.0-4.3); LYMPH % 17.8 % (20.0-40.0); MEAN CELL VOLUME 86.9 fL (81.0-99.0); MEAN CORPUSCULAR HEMOGLOBIN 28.1 pg (27.0-31.0); MEAN CORPUSCULAR HGB CONC 32.4 g/dL (33.0-37.0); MEAN PLATELET VOLUME 6.3 fL (7.2-11.7); MONO # 1.8 K/uL (0.0-0.8); MONO % 11.1 % (0.0-10.0); NEUT # 10.8 K/uL (1.8-7.0); NEUT % 67.6 % (50.0-75.0); NRBC % 0.1 % (0.0-2.0); RBC 3.06 Mil/uL (3.80-5.20); RED CELL DISTRIBUTION WIDTH 18.5 % (11.5-14.5)
[2017-08-27 20:32] LABS: ALB/GLOB RATIO 0.5 (1.0-2.1); ALBUMIN 2.7 g/dL (3.5-5.0)
[2017-08-27] MEDS: (Lantus) Insulin Glargine, Recombinant SC SCH (23:34)
[2017-08-28] MEDS: Morphine 4 MG/ML VIAL IVP PRN ×3 (05:44→18:04)
[2017-08-28] MEDS: Labetalol Hydrochloride 300 mg Tab PO SCH ×3 (06:21→22:00)
--- NOTE | 2017-08-28 06:40 | PN ---
DATE: 08/27/2017 SUBJECTIVE: The patient is a 36-year-old female. The patient was seen and examined at the bedside on 08/27/2017, looking comfortable. Getting IV antibiotics. No nausea, vomiting or diarrhea. No headache or dizziness. No chest pain. No palpitations. PHYSICAL EXAMINATION: VITAL SIGNS: Temperature 99.7, pulse 86, blood pressure 173/84, and respiratory rate 20. HEENT: Head normocephalic, atraumatic. Eyes, PERRLA. Extraocular muscles intact. Conjunctivae clear. Nose Patent. Mucous membranes moist. NECK: Supple. No carotid bruits. No JVD or thyromegaly. CHEST: Bilaterally symmetrical. HEART: S1 and S2 positive. LUNGS: Clear to auscultation. ABDOMEN: Soft. Bowel sounds positive. No organomegaly. EXTREMITIES: No edema, no cyanosis. NEUROLOGIC: The patient is awake and alert. Moving all 4 extremities. No focal deficits. MEDICATIONS: Ambien, Benadryl, Epivir, Lantus, morphine, Nephro-Rosario, Norvasc, PhosLo, Percocet, Protonix, calcitriol, NS, Zofran, and Zoloft. LABORATORY DATA: White blood cells 16, hemoglobin 8.6, hematocrit 26.6, and platelets 633. Chemistry: Sodium 138, potassium 4.7, BUN 40, creatinine 4.2, and glucose 153. ASSESSMENT AND PLAN: My patient, Ms. Elizabeth Lizarraga, is a 36-year-old patient with leucocytosis, anemia, thrombocytosis, renal insufficiency, hyperglycemia, has human immunodeficiency virus positive, the patient has osteomyelitis of the foot, acute kidney injury, abscess of the foot, cellulitis, gangrene associated with type 2 diabetes mellitus, hypertension, left against medical advice on last admission. Plan is to continue IV antibiotics. Seen by Dr. Brock and Dr. Del Valle, car refinisher on the case also. Alexandria Simmons MD [facility]
[2017-08-28] MEDS: Pantoprazole 40 mg EC Tab PO SCH (06:50)
[2017-08-28] MEDS: (Novolin R) Insulin Human Regular 100 units/ml vial SC SCH ×4 (08:30→22:02)
[2017-08-28 08:54] VITALS: O2SAT 97
[2017-08-28] MEDS: Saccharomyces Boulardi 250 mg Cap PO SCH ×3 (09:50→18:59)
[2017-08-28] MEDS: Multivitamin Vitamin B Complex (Nephro-Vite) Tab PO SCH ×2 (09:51→10:00)
[2017-08-28] MEDS: Epoetin Alfa 20000 UNIT/ML Inj SC SCH (12:55)
[2017-08-28] MEDS: EPOETIN ALFA 10,000 UNIT/ML ML SC SCH (12:55)
[2017-08-28 14:12] LABS: BASO # 0.1 K/uL (0.0-0.2); BASO % 0.3 % (0.0-2.0); EOS # 0.5 K/uL (0.0-0.7); EOS % 3.4 % (0.0-4.0); HEMOGLOBIN 8.6 g/dL (11.0-16.0); LYMPH # 3.2 K/uL (1.0-4.3); LYMPH % 19.8 % (20.0-40.0); MEAN CELL VOLUME 86.6 fL (81.0-99.0); MEAN CORPUSCULAR HEMOGLOBIN 28.8 pg (27.0-31.0); MEAN CORPUSCULAR HGB CONC 33.3 g/dL (33.0-37.0); MEAN PLATELET VOLUME 6.3 fL (7.2-11.7); MONO # 1.5 K/uL (0.0-0.8); MONO % 9.6 % (0.0-10.0); NEUT # 10.7 K/uL (1.8-7.0); NEUT % 66.9 % (50.0-75.0); NRBC % 0.2 % (0.0-2.0); RED CELL DISTRIBUTION WIDTH 19.4 % (11.5-14.5)
--- NOTE | 2017-08-28 14:13 | CP.PCM.PN ---
Subjective - Date & Time of Evaluation Date of Evaluation: 08/28/17 Time of Evaluation: 11:10 - Subjective Subjective: Podiatry Progress note for Dr. 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 Patient resting in bed comfortably, in NAD and AAOx3. Patient reports that she is doing okay. Denies nausea, fever, shortness of breath, chest pains or chills. Reports that she will be moving to [place] once she gets discharge. Patient has no other pedal complaints. Objective - Vital Signs/Intake and Output Vital Signs (last 24 hours): Temp Pulse Resp BP Pulse Ox 99.3 F 90 20 135/75 97 08/28/17 08:53 08/28/17 08:53 08/28/17 08:53 08/28/17 08:53 08/28/17 08:53 Intake and Output: 08/28/17 08/28/17 06:59 18:59 Intake Total 150 Output Total 825 Balance -675 - Medications Medications: Current Medications Abacavir Sulfate (Ziagen) 300 mg PO BID [facility] PRN Reason: Protocol Last Admin: 08/28/17 09:56 Dose: 300 mg Amlodipine Besylate (Norvasc) 5 mg PO DAILY [facility] Last Admin: 08/27/17 09:14 Dose: 5 mg Calcitriol (Rocaltrol) 0.25 mcg PO TTS [facility] Last Admin: 08/28/17 09:50 Dose: 0.25 mcg Calcium Acetate (Phoslo) 1,334 mg PO TIDCC [facility] Last Admin: 08/28/17 12:55 Dose: 1,334 mg Diphenhydramine HCl (Benadryl) 25 mg IVP Q6 PRN PRN Reason: Itching / Pruritus Dolutegravir Sodium (Tivicay) 50 mg PO DAILY [facility] PRN Reason: Protocol Last Admin: 08/28/17 09:56 Dose: 50 mg Epoetin Anival (Procrit) 10,000 unit SC TuThSa [facility] Last Admin: 08/28/17 12:55 Dose: 10,000 unit Epoetin Anival (Procrit) 20,000 unit SC TuThSa [facility] Last Admin: 08/28/17 12:55 Dose: 20,000 unit Daptomycin 500 mg/ Sodium (Chloride) 100 mls @ 100 mls/hr IV Q48H [facility] PRN Reason: Protocol Stop: 09/01/17 19:01 Last Admin: 08/27/17 18:52 Dose: 100 mls/hr Insulin Glargine (Lantus) 16 unit SC HS [facility] Last Admin: 08/27/17 23:34 Dose: Not Given Insulin Human Regular (Novolin R) 0 unit SC ACHS [facility] PRN Reason: Protocol Last Admin: 08/28/17 11:36 Dose: Not Given Labetalol HCl (Normodyne) 300 mg PO Q8 [facility] Last Admin: 08/28/17 13:51 Dose: 300 mg Lamivudine (Epivir) 50 mg PO QD7 [facility] PRN Reason: Protocol Morphine Sulfate (Morphine) 1 mg IVP Q6H PRN PRN Reason: Pain, moderate (4-7) Last Admin: 08/28/17 11:45 Dose: 1 mg Ondansetron HCl (Zofran Inj) 4 mg IVP Q8H PRN PRN Reason: Nausea/Vomiting Last Admin: 08/27/17 09:25 Dose: 4 mg Pantoprazole Sodium (Protonix Ec Tab) 40 mg PO ACB [facility] Last Admin: 08/28/17 06:50 Dose: 40 mg Saccharomyces Boulardii (Florastor) 250 mg PO BID [facility] Last Admin: 08/28/17 09:50 Dose: 250 mg Sertraline HCl (Zoloft) 50 mg PO DAILY [facility] Last Admin: 08/28/17 09:50 Dose: 50 mg Sodium Bicarbonate (Sodium Bicarbonate Tab) 650 mg PO BID [facility] Last Admin: 08/28/17 09:51 Dose: 650 mg Vitamin B Complex/Vit C/Folic Acid (Nephro-Rosario) 1 tab PO 0800 [facility] Last Admin: 08/28/17 09:51 Dose: 1 tab Zolpidem Tartrate (Ambien) 5 mg PO HS PRN PRN Reason: Insomnia Last Admin: 08/27/17 23:48 Dose: 5 mg - Labs Labs: 08/27/17 20:08 08/27/17 20:08 - Constitutional Appears: Well, Non-toxic, No Acute Distress - Extremities Exam Extremities Exam: absent: Calf Tenderness Additional comments: Left Lower Extremity exam: dressing appears c/d/i with no strikethrough evident DERM- surgical site remains intact with surgical site well coapted along medial aspect, plantarlateral surgical site appears macerated with gross lichenification of pedal skin; the lateral distal stump site has a circular opening which measures approx 4 cm x 3 cm x 1cm which appears to be granulating inwards, mild amount of serosanginous drainage noted from wound, moderate malodor present VASC- DP pulse faintly palpable, skin temp runs warm to warm, nonpitting edema noted to left leg extending from knee joint distally into stump NEURO- gross and protective pedal sensation are diminished ORTHO- minimal tenderness noted to palpation of the surgical site laterally and plantarly - Neurological Exam Neurological Exam: Alert, Awake, Oriented x3 Assessment and Plan - Assessment and Plan (Free Text) Assessment: 36 year old female patient seen 22 days s/p Chopart's amputation (DOS 08/06/17) Plan: Patient examined and evaluated at bedside Discussed plan with attending, Dr. Coy Labs and vitals reviewed Intra-op wound cultures: Coagulase Neg Staph Continue abx as per ID Continue pain mgt per primary team Patient may be PWB to left heel in surgical shoe with the assistance of a walker Podiatry will continue to follow
[2017-08-28 14:32] LABS: ALB/GLOB RATIO 0.5 (1.0-2.1); ALBUMIN 2.8 g/dL (3.5-5.0)
--- NOTE | 2017-08-28 19:42 | CP.PCM.PN ---
Subjective - Date & Time of Evaluation Date of Evaluation: 08/28/17 Time of Evaluation: 13:00 - Subjective Subjective: Patient reports feeling well; want to leave tomorrow; denies sob; tolerating diet; Objective - Vital Signs/Intake and Output Vital Signs (last 24 hours): Temp Pulse Resp BP Pulse Ox 97.9 F 90 20 135/75 97 08/28/17 16:00 08/28/17 08:53 08/28/17 08:53 08/28/17 08:53 08/28/17 08:53 - Medications Medications: Current Medications Abacavir Sulfate (Ziagen) 300 mg PO BID [facility] PRN Reason: Protocol Last Admin: 08/28/17 18:59 Dose: 300 mg Amlodipine Besylate (Norvasc) 5 mg PO DAILY [facility] Last Admin: 08/28/17 09:56 Dose: 5 mg Calcitriol (Rocaltrol) 0.25 mcg PO TTS [facility] Last Admin: 08/28/17 09:50 Dose: 0.25 mcg Calcium Acetate (Phoslo) 1,334 mg PO TIDCC [facility] Last Admin: 08/28/17 18:59 Dose: 1,334 mg Diphenhydramine HCl (Benadryl) 25 mg IVP Q6 PRN PRN Reason: Itching / Pruritus Dolutegravir Sodium (Tivicay) 50 mg PO DAILY [facility] PRN Reason: Protocol Last Admin: 08/28/17 09:56 Dose: 50 mg Epoetin Anival (Procrit) 10,000 unit SC TuTa [facility] Last Admin: 08/28/17 12:55 Dose: 10,000 unit Epoetin Anival (Procrit) 20,000 unit SC TuTa [facility] Last Admin: 08/28/17 12:55 Dose: 20,000 unit Daptomycin 500 mg/ Sodium (Chloride) 100 mls @ 100 mls/hr IV Q48H [facility] PRN Reason: Protocol Stop: 09/01/17 19:01 Last Admin: 08/27/17 18:52 Dose: 100 mls/hr Insulin Glargine (Lantus) 16 unit SC HS [facility] Last Admin: 08/27/17 23:34 Dose: Not Given Insulin Human Regular (Novolin R) 0 unit SC ACHS [facility] PRN Reason: Protocol Last Admin: 08/28/17 18:06 Dose: Not Given Labetalol HCl (Normodyne) 300 mg PO Q8 [facility] Last Admin: 08/28/17 13:51 Dose: 300 mg Lamivudine (Epivir) 50 mg PO QD7 [facility] PRN Reason: Protocol Morphine Sulfate (Morphine) 1 mg IVP Q6H PRN PRN Reason: Pain, moderate (4-7) Last Admin: 08/28/17 18:04 Dose: 1 mg Ondansetron HCl (Zofran Inj) 4 mg IVP Q8H PRN PRN Reason: Nausea/Vomiting Last Admin: 08/27/17 09:25 Dose: 4 mg Pantoprazole Sodium (Protonix Ec Tab) 40 mg PO ACB [facility] Last Admin: 08/28/17 06:50 Dose: 40 mg Saccharomyces Boulardii (Florastor) 250 mg PO BID [facility] Last Admin: 08/28/17 18:59 Dose: 250 mg Sertraline HCl (Zoloft) 50 mg PO DAILY [facility] Last Admin: 08/28/17 09:50 Dose: 50 mg Sodium Bicarbonate (Sodium Bicarbonate Tab) 650 mg PO BID [facility] Last Admin: 08/28/17 18:59 Dose: 650 mg Vitamin B Complex/Vit C/Folic Acid (Nephro-Rosario) 1 tab PO 0800 [facility] Last Admin: 08/28/17 10:00 Dose: Not Given Zolpidem Tartrate (Ambien) 5 mg PO HS PRN PRN Reason: Insomnia Last Admin: 08/27/17 23:48 Dose: 5 mg - Labs Labs: 08/28/17 14:07 08/28/17 14:07 - Constitutional Appears: Non-toxic, No Acute Distress - Eye Exam Eye Exam: absent: Scleral icterus - ENT Exam ENT Exam: Mucous Membranes Moist - Respiratory Exam Respiratory Exam: Clear to Ausculation Bilateral. absent: Respiratory Distress - Cardiovascular Exam Cardiovascular Exam: RRR, +S1, +S2 - GI/Abdominal Exam GI & Abdominal Exam: Soft. absent: Distended, Tenderness - Extremities Exam Additional comments: mild leg edema L >> R - Neurological Exam Neurological Exam: Alert, Awake - Psychiatric Exam Psychiatric exam: Normal Mood. absent: Agitated - Skin Skin Exam: Warm. absent: Cyanosis Assessment and Plan (1) GAEL (acute kidney injury) Assessment & Plan: GAEL resolving; stable volume and electrolyte status; continue to monitor; Status: Acute (2) CKD (chronic kidney disease), stage IV Assessment & Plan: Advanced CKD, again discussed need for AVF creation procedure, patient wanting to defer until he moves; continue sodium bicarb 650 mg bid; Status: Chronic (3) Hypertensive CKD (chronic kidney disease) Assessment & Plan: BP controlled, continue current meds; Status: Chronic (4) Anemia in CKD (chronic kidney disease) Assessment & Plan: Hgb below goal but improving, continue EPO 30,000 u qTTS; Status: Acute (5) Chronic kidney disease-mineral and bone disorder Assessment & Plan: On calcitriol and phoslo, continue; Status: Chronic (6) Abscess and cellulitis Assessment & Plan: On daptomycin, continue to dose for CrCl < 20 ml/min; Status: Acute (7) HIV (human immunodeficiency virus infection) Status: Chronic
[2017-08-28] MEDS ORDERED: Cefepime IV 1 gm in Dextrose 1 GM/50 ML BAG IVPB SCH (22:00)
[2017-08-28] MEDS: (Lantus) Insulin Glargine, Recombinant SC SCH (22:00)
[2017-08-29] MEDS: Morphine 4 MG/ML VIAL IVP PRN ×3 (00:27→12:50)
[2017-08-29] MEDS: Labetalol Hydrochloride 300 mg Tab PO SCH ×2 (05:38→15:34)
[2017-08-29 07:53] VITALS: BP 130/84; PULSE 79; RESP 18; TEMP 98
[2017-08-29] MEDS: (Novolin R) Insulin Human Regular 100 units/ml vial SC SCH ×2 (08:21→12:44)
[2017-08-29] MEDS: Multivitamin Vitamin B Complex (Nephro-Vite) Tab PO SCH (08:25)
[2017-08-29] MEDS: Pantoprazole 40 mg EC Tab PO SCH (08:30)
[2017-08-29] MEDS: Saccharomyces Boulardi 250 mg Cap PO SCH (09:30)
--- NOTE | 2017-08-29 11:50 | CP.PCM.PN ---
<Trevor Elkins - Last Filed: 08/29/17 11:45> Subjective - Date & Time of Evaluation Date of Evaluation: 08/29/17 Time of Evaluation: 07:00 - Subjective Subjective: Podiatry Progress note for Dr. 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 Patient resting in bed comfortably in chair out of bed , in NAD and AAOx3. Patient reports that she is doing okay and reports that she will be leaving today. Her mom will be picking her up and she will be moving to [place]. Denies nausea, fever, shortness of breath, chest pains or chills. Patient has no other pedal complaints. Objective - Vital Signs/Intake and Output Vital Signs (last 24 hours): Temp Pulse Resp BP Pulse Ox 98.0 F 79 18 130/84 97 08/29/17 07:20 08/29/17 07:20 08/29/17 07:20 08/29/17 07:20 08/29/17 07:20 Intake and Output: 08/29/17 08/29/17 06:59 18:59 Intake Total 240 Output Total 200 Balance 40 - Medications Medications: Current Medications Abacavir Sulfate (Ziagen) 300 mg PO BID [facility] PRN Reason: Protocol Last Admin: 08/29/17 09:34 Dose: Not Given Amlodipine Besylate (Norvasc) 5 mg PO DAILY [facility] Last Admin: 08/29/17 09:28 Dose: 5 mg Calcitriol (Rocaltrol) 0.25 mcg PO TTS [facility] Last Admin: 08/28/17 09:50 Dose: 0.25 mcg Calcium Acetate (Phoslo) 1,334 mg PO TIDCC [facility] Last Admin: 08/29/17 08:24 Dose: Not Given Diphenhydramine HCl (Benadryl) 25 mg IVP Q6 PRN PRN Reason: Itching / Pruritus Dolutegravir Sodium (Tivicay) 50 mg PO DAILY [facility] PRN Reason: Protocol Last Admin: 08/29/17 09:34 Dose: Not Given Epoetin Anival (Procrit) 10,000 unit SC TuThSa [facility] Last Admin: 08/28/17 12:55 Dose: 10,000 unit Epoetin Anival (Procrit) 20,000 unit SC TuThSa [facility] Last Admin: 08/28/17 12:55 Dose: 20,000 unit Daptomycin 500 mg/ Sodium (Chloride) 100 mls @ 100 mls/hr IV Q48H [facility] PRN Reason: Protocol Stop: 09/01/17 19:01 Last Admin: 08/27/17 18:52 Dose: 100 mls/hr Cefepime HCl (Maxipime Iv 1 Gm Premix) 1 gm in 50 mls @ 100 mls/hr IVPB Q24H [facility] PRN Reason: Protocol Insulin Glargine (Lantus) 16 unit SC HS [facility] Last Admin: 08/28/17 22:00 Dose: Not Given Insulin Human Regular (Novolin R) 0 unit SC ACHS [facility] PRN Reason: Protocol Last Admin: 08/29/17 08:21 Dose: 1 unit Labetalol HCl (Normodyne) 300 mg PO Q8 [facility] Last Admin: 08/29/17 05:38 Dose: 300 mg Lamivudine (Epivir) 50 mg PO QD7 [facility] PRN Reason: Protocol Morphine Sulfate (Morphine) 1 mg IVP Q6H PRN PRN Reason: Pain, moderate (4-7) Last Admin: 08/29/17 06:18 Dose: 1 mg Ondansetron HCl (Zofran Inj) 4 mg IVP Q8H PRN PRN Reason: Nausea/Vomiting Last Admin: 08/28/17 22:01 Dose: 4 mg Pantoprazole Sodium (Protonix Ec Tab) 40 mg PO ACB [facility] Last Admin: 08/29/17 08:30 Dose: Not Given Saccharomyces Boulardii (Florastor) 250 mg PO BID [facility] Last Admin: 08/29/17 09:30 Dose: 250 mg Sertraline HCl (Zoloft) 50 mg PO DAILY [facility] Last Admin: 08/29/17 09:28 Dose: 50 mg Sodium Bicarbonate (Sodium Bicarbonate Tab) 650 mg PO BID [facility] Last Admin: 08/29/17 09:27 Dose: 650 mg Vitamin B Complex/Vit C/Folic Acid (Nephro-Rosario) 1 tab PO 0800 [facility] Last Admin: 08/29/17 08:25 Dose: Not Given Zolpidem Tartrate (Ambien) 5 mg PO HS PRN PRN Reason: Insomnia Last Admin: 08/27/17 23:48 Dose: 5 mg - Labs Labs: 08/28/17 14:07 08/28/17 14:07 - Constitutional Appears: Well, Non-toxic, No Acute Distress - Extremities Exam Extremities Exam: absent: Calf Tenderness Additional comments: Left Lower Extremity exam: dressing appears c/d/i with no strikethrough evident DERM- surgical site remains intact with surgical site well coapted along medial aspect, plantarlateral surgical site appears macerated with gross lichenification of pedal skin; the lateral distal stump site has a circular opening which measures approx 4 cm x 3 cm x 1cm which appears to be granulating inwards, mild amount of serosanginous drainage noted from wound, moderate malodor present VASC- DP pulse faintly palpable, skin temp runs warm to warm, nonpitting edema noted to left leg extending from knee joint distally into stump NEURO- gross and protective pedal sensation are diminished ORTHO- minimal tenderness noted to palpation of the surgical site laterally and plantarly - Neurological Exam Neurological Exam: Alert, Awake, Oriented x3 - Psychiatric Exam Psychiatric exam: Normal Affect, Normal Mood Assessment and Plan - Assessment and Plan (Free Text) Assessment: 36 year old female patient seen 23 days s/p Chopart's amputation (DOS 08/06/17) Plan: Patient examined and evaluated at bedside Discussed plan with attending, Dr. Coy Labs and vitals reviewed WBC=16.0 Intra-op wound cultures: Coagulase Neg Staph Continue abx as per ID Continue pain mgt per primary team Patient may be PWB to left heel in surgical shoe with the assistance of a walker Podiatry will continue to follow Script written for dressing changes products Patient to change dressing daily with betadine w2d, dsd, abd, and kerlix. Keep dressing c/d/i Patient reports that she will come back to [place] to f/u with Dr. Coy <Kalpesh Coy - Last Filed: 08/29/17 13:32> Objective - Vital Signs/Intake and Output Vital Signs (last 24 hours): Temp Pulse Resp BP Pulse Ox 98.0 F 79 18 130/84 97 08/29/17 07:20 08/29/17 07:20 08/29/17 07:20 08/29/17 07:20 08/29/17 07:20 Intake and Output: 08/29/17 08/29/17 06:59 18:59 Intake Total 240 Output Total 200 Balance 40 - Medications Medications: Current Medications Abacavir Sulfate (Ziagen) 300 mg PO BID [facility] PRN Reason: Protocol Last Admin: 08/29/17 09:34 Dose: Not Given Amlodipine Besylate (Norvasc) 5 mg PO DAILY [facility] Last Admin: 08/29/17 09:28 Dose: 5 mg Calcitriol (Rocaltrol) 0.25 mcg PO TTS [facility] Last Admin: 08/28/17 09:50 Dose: 0.25 mcg Calcium Acetate (Phoslo) 1,334 mg PO TIDCC [facility] Last Admin: 08/29/17 08:24 Dose: Not Given Diphenhydramine HCl (Benadryl) 25 mg IVP Q6 PRN PRN Reason: Itching / Pruritus Dolutegravir Sodium (Tivicay) 50 mg PO DAILY [facility] PRN Reason: Protocol Last Admin: 08/29/17 09:34 Dose: Not Given Epoetin Anival (Procrit) 10,000 unit SC TuTa [facility] Last Admin: 08/28/17 12:55 Dose: 10,000 unit Epoetin Anival (Procrit) 20,000 unit SC TuTa [facility] Last Admin: 08/28/17 12:55 Dose: 20,000 unit Daptomycin 500 mg/ Sodium (Chloride) 100 mls @ 100 mls/hr IV Q48H [facility] PRN Reason: Protocol Stop: 09/01/17 19:01 Last Admin: 08/27/17 18:52 Dose: 100 mls/hr Cefepime HCl (Maxipime Iv 1 Gm Premix) 1 gm in 50 mls @ 100 mls/hr IVPB Q24H [facility] PRN Reason: Protocol Insulin Glargine (Lantus) 16 unit SC HS [facility] Last Admin: 08/28/17 22:00 Dose: Not Given Insulin Human Regular (Novolin R) 0 unit SC ACHS [facility] PRN Reason: Protocol Last Admin: 08/29/17 12:44 Dose: 2 unit Labetalol HCl (Normodyne) 300 mg PO Q8 [facility] Last Admin: 08/29/17 05:38 Dose: 300 mg Lamivudine (Epivir) 50 mg PO QD7 [facility] PRN Reason: Protocol Morphine Sulfate (Morphine) 1 mg IVP Q6H PRN PRN Reason: Pain, moderate (4-7) Last Admin: 08/29/17 12:50 Dose: 1 mg Ondansetron HCl (Zofran Inj) 4 mg IVP Q8H PRN PRN Reason: Nausea/Vomiting Last Admin: 08/28/17 22:01 Dose: 4 mg Pantoprazole Sodium (Protonix Ec Tab) 40 mg PO ACB [facility] Last Admin: 08/29/17 08:30 Dose: Not Given Saccharomyces Boulardii (Florastor) 250 mg PO BID [facility] Last Admin: 08/29/17 09:30 Dose: 250 mg Sertraline HCl (Zoloft) 50 mg PO DAILY [facility] Last Admin: 08/29/17 09:28 Dose: 50 mg Sodium Bicarbonate (Sodium Bicarbonate Tab) 650 mg PO BID [facility] Last Admin: 08/29/17 09:27 Dose: 650 mg Vitamin B Complex/Vit C/Folic Acid (Nephro-Rosario) 1 tab PO 0800 [facility] Last Admin: 08/29/17 08:25 Dose: Not Given Zolpidem Tartrate (Ambien) 5 mg PO HS PRN PRN Reason: Insomnia Last Admin: 08/27/17 23:48 Dose: 5 mg - Labs Labs: 08/28/17 14:07 08/28/17 14:07 Assessment and Plan - Assessment and Plan (Free Text) Plan: pt was seen with resident this am and discussed need for compliance with follow up visits as out patient and antibiotics as Rx by Dr Del Valle .Incision site is healing very well and 1 open wound has improved with no purulence noted .. above RX written by me this am for wound care products and patient to follow up in wound center 09/08/17./ DR Morales
[2017-08-29] MEDS: DAPTOmycin 500 MG in Sodium Chloride 0.9% 100 ML IV SCH (15:32)
--- NOTE | 2017-08-29 19:12 | CP.PCM.PN ---
Subjective - Date & Time of Evaluation Date of Evaluation: 08/29/17 Time of Evaluation: 14:00 - Subjective Subjective: Patient seen prior to leaving [place]; plans to go to another hospital out of state close to family; spiked fever overnight; Objective - Vital Signs/Intake and Output Vital Signs (last 24 hours): Temp Pulse Resp BP Pulse Ox 98.0 F 79 18 130/84 97 08/29/17 07:20 08/29/17 07:20 08/29/17 07:20 08/29/17 07:20 08/29/17 07:20 - Medications Medications: Current Medications Abacavir Sulfate (Ziagen) 300 mg PO BID [facility] PRN Reason: Protocol Last Admin: 08/29/17 09:34 Dose: Not Given Amlodipine Besylate (Norvasc) 5 mg PO DAILY [facility] Last Admin: 08/29/17 09:28 Dose: 5 mg Calcitriol (Rocaltrol) 0.25 mcg PO TTS [facility] Last Admin: 08/28/17 09:50 Dose: 0.25 mcg Calcium Acetate (Phoslo) 1,334 mg PO TIDCC [facility] Last Admin: 08/29/17 12:00 Dose: Not Given Diphenhydramine HCl (Benadryl) 25 mg IVP Q6 PRN PRN Reason: Itching / Pruritus Dolutegravir Sodium (Tivicay) 50 mg PO DAILY [facility] PRN Reason: Protocol Last Admin: 08/29/17 09:34 Dose: Not Given Epoetin Anival (Procrit) 10,000 unit SC TuTa [facility] Last Admin: 08/28/17 12:55 Dose: 10,000 unit Epoetin Anival (Procrit) 20,000 unit SC [facility] Last Admin: 08/28/17 12:55 Dose: 20,000 unit Daptomycin 500 mg/ Sodium (Chloride) 100 mls @ 100 mls/hr IV Q48H [facility] PRN Reason: Protocol Stop: 09/01/17 19:01 Last Admin: 08/29/17 15:32 Dose: 100 mls/hr Cefepime HCl (Maxipime Iv 1 Gm Premix) 1 gm in 50 mls @ 100 mls/hr IVPB Q24H [facility] PRN Reason: Protocol Last Admin: 08/29/17 14:32 Dose: 100 mls/hr Insulin Glargine (Lantus) 16 unit SC HS [facility] Last Admin: 08/28/17 22:00 Dose: Not Given Insulin Human Regular (Novolin R) 0 unit SC ACHS [facility] PRN Reason: Protocol Last Admin: 08/29/17 12:44 Dose: 2 unit Labetalol HCl (Normodyne) 300 mg PO Q8 [facility] Last Admin: 08/29/17 15:34 Dose: Not Given Lamivudine (Epivir) 50 mg PO QD7 [facility] PRN Reason: Protocol Morphine Sulfate (Morphine) 1 mg IVP Q6H PRN PRN Reason: Pain, moderate (4-7) Last Admin: 08/29/17 12:50 Dose: 1 mg Ondansetron HCl (Zofran Inj) 4 mg IVP Q8H PRN PRN Reason: Nausea/Vomiting Last Admin: 08/28/17 22:01 Dose: 4 mg Pantoprazole Sodium (Protonix Ec Tab) 40 mg PO ACB [facility] Last Admin: 08/29/17 08:30 Dose: Not Given Saccharomyces Boulardii (Florastor) 250 mg PO BID [facility] Last Admin: 08/29/17 09:30 Dose: 250 mg Sertraline HCl (Zoloft) 50 mg PO DAILY [facility] Last Admin: 08/29/17 09:28 Dose: 50 mg Sodium Bicarbonate (Sodium Bicarbonate Tab) 650 mg PO BID [facility] Last Admin: 08/29/17 09:27 Dose: 650 mg Vitamin B Complex/Vit C/Folic Acid (Nephro-Rosario) 1 tab PO 0800 [facility] Last Admin: 08/29/17 08:25 Dose: Not Given Zolpidem Tartrate (Ambien) 5 mg PO HS PRN PRN Reason: Insomnia Last Admin: 08/27/17 23:48 Dose: 5 mg - Labs Labs: 08/28/17 14:07 08/28/17 14:07 - Constitutional Appears: Non-toxic, No Acute Distress - Respiratory Exam Respiratory Exam: absent: Respiratory Distress - Extremities Exam Additional comments: swollen L lower leg - Psychiatric Exam Psychiatric exam: absent: Agitated Assessment and Plan (1) GAEL (acute kidney injury) Assessment & Plan: GAEL on late CKD IV; likely ATN, resolving; however, in setting of persistent fever spikes, concern for underlying sepsis which could easily cause new GAEL and precipitate need for dialysis urgently; patient understands risks of leaving AMA; advised to at least get today's dose of IV antibiotics before leaving; also counseled that PICC lines should be avoided to preserve veins for future HD (PICC to be removed today prior to leaving); also advised to avoid all NSAIDS; overall prognosis guarded; Status: Acute (2) CKD (chronic kidney disease), stage IV Status: Chronic (3) Hypertensive CKD (chronic kidney disease) Status: Chronic (4) Anemia in CKD (chronic kidney disease) Status: Acute (5) Chronic kidney disease-mineral and bone disorder Status: Chronic (6) Abscess and cellulitis Status: Acute (7) HIV (human immunodeficiency virus infection) Status: Chronic
[2017-08-29] MEDS ORDERED: Cefepime IV 1 gm in Dextrose 1 GM/50 ML BAG IVPB SCH (22:00)
--- NOTE | 2017-08-30 01:31 | PN ---
DATE: SUBJECTIVE: The patient is seen and examined at the bedside. Mother was seen at the bedside also. According to the patient, the mother is a nurse. Length of time discussion was done with the mother, all questions answered. The patient want to be discharged with p.o. antibiotics, but I explained that the patient needs IV antibiotics because as per ID the patient is get IV antibiotics. No fever. No chills. Yesterday night, he has episode of fever and has episode of a warm finger. PHYSICAL EXAMINATION: VITAL SIGNS: Temperature 98, T-max 101.8, respiratory rate 18, pulse oximetry 79, blood pressure 130/84. HEENT: Head is normocephalic and atraumatic. Eyes: PERRLA. Extraocular movements are intact. Conjunctivae clear. NOSE: Patent. Mucous membranes are moist. NECK: Supple. No carotid bruits. No JVD or thyromegaly. CHEST: Bilaterally symmetrical. HEART: S1 and S2 positive. LUNGS: Clear to auscultation. ABDOMEN: Soft. Bowel sounds present. No organomegaly. EXTREMITIES: Upper extremity: No edema. No cyanosis. NEUROLOGIC: The patient is awake, alert. Moving all four extremities, and obeying and following up simple orders. MEDICATIONS: Ambien, Benadryl, daptomycin, Epivir, Lantus, cefepime, morphine, Norvasc, Procrit, Zoloft, HIV medications. LABORATORY DATA: White blood cell is 16, hemoglobin 8.6, hematocrit 26, platelet 596. Sodium 135, potassium 4.7, BUN 32, creatinine 4.2, glucose 127. ASSESSMENT AND PLAN: Zia Johnson is a 36-year-old who has leukocytosis; anemia; thrombocytosis; renal insufficiency, respiratory therapy assistant is on the case; diabetes mellitus; abnormal liver function test; history of human immunodeficiency virus positive, but virus is not detectable, seen by Dr. Karson Brock, respiratory therapy assistant. 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 Kalpesh Coy, ID is on the case also. The patient left last time against medical admission, and at this time, he is thinking about that also. Some prescriptions given to the nurse in case if he will sign against medical advice, but the decision will be Dr. Del Valle's decision because she has I and D for the sepsis and foot infection. Repeat labs. We will follow up. Alexandria Simmons MD MTDD
--- NOTE | 2017-08-31 07:59 | PN ---
DATE: 08/28/2017 SUBJECTIVE: The patient is 37 years old. The patient was seen and examined at the bedside, looking comfortable. No fever. No chills. No nausea, vomiting, or diarrhea. No hematuria, no hematochezia. No headache or dizziness. The patient is planning to go to [place] after hospital discharge of the patient's mother. PHYSICAL EXAMINATION: VITAL SIGNS: Temperature 97.9, pulse 90, respirations 20, blood pressure 135/75, pulse oximetry 97. HEENT: Head: Normocephalic, atraumatic. Eyes: PERRLA. Extraocular muscles intact. Conjunctivae clear. Nose: Patent. Mucous membranes moist. NECK: Supple. No carotid bruits. No JVD or thyromegaly. CHEST: Bilaterally symmetrical. HEART: S1 and S2 positive. LUNGS: Clear to auscultation. ABDOMEN: Soft. Bowel sounds positive. No organomegaly. EXTREMITIES: No edema, no cyanosis. NEUROLOGIC: The patient is awake and alert. Moving all 4 extremities. No focal deficits. MEDICATIONS: HIV medications, Norvasc, calcitriol, PhosLo, Benadryl, Procrit, Lantus, labetalol, Epivir, Zofran, and Protonix. LABORATORY DATA: White blood cells 16, hemoglobin 8.6, hematocrit 26, and platelets 596. Sodium 135, potassium 4.7, BUN 46, creatinine 4.2, glucose 103. ASSESSMENT AND PLAN: The patient is a 37-year-old lady with leucocytosis, anemia, thrombocytosis, acute kidney injury, chronic kidney disease stage 4, hypertensive chronic kidney disease, anemia in chronic kidney disease as per upset operator, chronic kidney disease, abscess and cellulitis of the foot, human immunodeficiency virus positive, getting IV medications from Dr. Del Valle. The patient needs a couple of weeks of intravenous antibiotics as per Dr. Del Valle for osteomyelitis of the foot, patient is planning to move to [place], urge to complete antibiotic course. Last time, the patient left against medical advice. This time, I hope the patient will complete the treatment, education done, discussion done with the nursing staff. Alexandria Simmons MD [facility]
--- NOTE | 2017-09-06 08:07 | DS ---
The patient is a 37-year-old female. The patient was admitted on 08/11/2017 and left against medical advice on 08/29/2017. The patient was seen and examined on the bedside by me in the presence of the mother on 08/29/2017. CHIEF COMPLAINT: Foot pain. HISTORY OF PRESENT ILLNESS: The patient is a 37-year-old lady with past medical history of HIV x3. She has recent amputation of the left foot, came to the emergency room with her partner for evaluation of the foot pain. The patient was admitted inpatient, upset with the staff about her care and signed against medical advice, walked out and turned around and wished to be readmitted, noticed that the patient is starting dialysis this upcoming Wednesday. The patient was getting treatment from Dr. Del Valle and Dr. Coy, Podiatry, who readmitted the patient, for renal insufficiency seen by Dr. Karson Brock's , and Dr. Jarred Del Valle, Infectious Disease. The patient was getting treatment, improving. PICC line was put, but the patient's mother came from [place] to see her and the patient decided to go with mother in [place] but treatment was not completed yet. She signed against medical advice, urged to complete the treatment, either go to the hospital there or come back, so that we can arrange something once we have the staff, but the patient decided to leave against medical advice. Prescription of medicines given by me like regular medical medicine, but the patient was informed she got HIV and infection medication from her Infectious Disease doctor. PAST MEDICAL HISTORY: Depression, diabetes mellitus, deep venous thrombosis, HIV, hypertension, peripheral edema, chronic pain syndrome. FAMILY HISTORY: History of [place], coronary artery disease, diabetes mellitus, and hypertension. SOCIAL HISTORY: Tobacco, no. Alcohol, no. Substance abuse, occasionally. REVIEW OF SYSTEMS: The patient was seen and examined at the bedside on 08/29/2017, and looking comfortable. Her mother was seen at the bedside also, want to go against medical advice, urged to do not go and complete the treatment and as soon as some treatment is done, may be we will arrange some home infusion, off antibiotics but the patient signed against medical advice, urged to follow up with the director utilization management since she is not doing very well, Infectious Disease, Podiatry, and Endocrinology. The patient is oriented x3. As per the patient, her mother is a nurse, and tried to explain the mother also and all questions are answered. The patient left against medical advice. For more details, see my progress note of 08/29/2017. Alexandria Simmons MD MTDD
== END 2017-08-29 17:00 | disposition left against medical advice (07) | DRG 682 ==
LOC: C.ER 18:04 → C.9E 19:32 → C.5S 20:09 → C.6T 08-22 23:04
PROVIDERS: ADMIT Internal Medicine; ATTEND Internal Medicine
PROC: 02HV33Z Insertion of Infusion Device into Superior Vena Cava, Percutaneous Approach (ICD-10-PCS; principal; 2017-08-24)
DX: N17.0 Acute kidney failure with tubular necrosis (principal); A41.9 Sepsis, unspecified organism; B20 Human immunodeficiency virus [HIV] disease; E11.52 Type 2 diabetes mellitus with diabetic peripheral angiopathy with gangrene; E87.2 Acidosis; I12.0 Hypertensive chronic kidney disease with stage 5 chronic kidney disease or end stage renal disease; L02.612 Cutaneous abscess of left foot; L03.116 Cellulitis of left lower limb; M86.672 Other chronic osteomyelitis, left ankle and foot; N18.5 Chronic kidney disease, stage 5; N04.9 Nephrotic syndrome with unspecified morphologic changes; D63.1 Anemia in chronic kidney disease; E11.22 Type 2 diabetes mellitus with diabetic chronic kidney disease; E11.621 Type 2 diabetes mellitus with foot ulcer; E11.65 Type 2 diabetes mellitus with hyperglycemia; E11.69 Type 2 diabetes mellitus with other specified complication; E83.39 Other disorders of phosphorus metabolism; L97.529 Non-pressure chronic ulcer of other part of left foot with unspecified severity; I25.10 Atherosclerotic heart disease of native coronary artery without angina pectoris; J45.909 Unspecified asthma, uncomplicated; K21.9 Gastro-esophageal reflux disease without esophagitis; B95.7 Other staphylococcus as the cause of diseases classified elsewhere; E11.43 Type 2 diabetes mellitus with diabetic autonomic (poly)neuropathy; K31.84 Gastroparesis; M89.9 Disorder of bone, unspecified; G89.4 Chronic pain syndrome; G47.00 Insomnia, unspecified; W19.XXXA Unspecified fall, initial encounter; Z89.432 Acquired absence of left foot; Z53.29 Procedure and treatment not carried out because of patient's decision for other reasons; F64.9 Gender identity disorder, unspecified; Z79.4 Long term (current) use of insulin; Z87.891 Personal history of nicotine dependence; Z86.718 Personal history of other venous thrombosis and embolism; Z79.899 Other long term (current) drug therapy

== ENCOUNTER 2018-08-14 22:22 | Inpatient (IN) | payer MEDICARE, OTHER ==
[2018-08-14 22:23] VITALS: BMI 38.0
--- NOTE | 2018-08-14 22:33 | C.PDOC ---
History Of Present Illness 37 yr old female w/ hx of Rectal abscesses, asthma, Dm2, DVT, HIV on HAART, HTN p/w rectal abscess. Pt notes rectal abscesses for 2-3 days now. She notes foul smelling drainage from one of the abscesses and notes multiple abscessess. She denies any receptive anal intercourse or recent sexual activity. No genitourinary discharge or urinary complaints. No genital rash. No fever, chills or night sweats. No chest pain or sob or abdominal pain. She notes that she is currently on HAART therapy and that her counts have been normal. No other complaints. Chief Complaint (Nursing): Abnormal Skin Integrity Past Medical History Vital Signs: Last Vital Signs Temp 98.7 F 08/14/18 22:24 Pulse 102 H 08/14/18 22:24 Resp 20 08/14/18 22:24 BP 162/78 H 08/14/18 22:24 Pulse Ox 96 08/14/18 22:24 Primary Care Provider: Jarred Del Valle - Medical History PMH: Anemia, Anxiety, Asthma, Depression, Diabetes, Deep Vein Thrombosis, Gastritis, HIV, HTN, Pancreatitis, Peripheral Edema, Chronic Kidney Disease, Chronic Pain Denies: Hepatitis, Seizures, Sexually Transmitted Disease Surgical History: Endoscopy - [facility] Procedures ANAL FISTULOTOMY (03/15/13) CENTRAL VENOUS CATHETER PLACEMENT WITH GUIDANCE (08/24/13) DEBRIDEMENT OF NAIL, NAIL BED OR NAIL FOLD (07/09/14) DETACHMENT AT LEFT 1ST TOE, COMPLETE, OPEN APPROACH (02/12/16) DETACHMENT AT LEFT 3RD TOE, COMPLETE, OPEN APPROACH (03/20/15) DETACHMENT AT LEFT 4TH TOE, COMPLETE, OPEN APPROACH (03/20/15) DETACHMENT AT LEFT FOOT, COMPLETE, OPEN APPROACH (07/30/17) DETACHMENT AT LEFT FOOT, PARTIAL 3RD RAY, OPEN APPROACH (10/23/15) DETACHMENT AT LEFT FOOT, PARTIAL 4TH RAY, OPEN APPROACH (10/23/15) DRAIN OF L FOOT SUBCU/FASCIA WITH DRAIN DEV, OPEN APPROACH (07/05/17) DRAINAGE OF BUTTOCK SUBCU/FASCIA, OPEN APPROACH (05/16/15) DRAINAGE OF L FOOT SUBCU/FASCIA, OPEN APPROACH (07/30/17) DRAINAGE OF LEFT FOOT, OPEN APPROACH (06/11/15) DRAINAGE OF RECTUM, OPEN APPROACH (12/14/17) ELECTROCOAG RECT LES NEC (03/15/13) EXCIS DEBRIDE OF WOUND, INFECT, OR BURN (08/28/14) EXCISION OF DUODENUM, ENDO, DIAGN (11/23/17) EXCISION OF L FOOT SUBCU/FASCIA, OPEN APPROACH (07/05/17) EXCISION OF LEFT FOOT SKIN, EXTERNAL APPROACH (10/29/16) EXCISION OF LEFT METATARSAL, OPEN APPROACH (10/29/16) EXCISION OF LEFT TOE PHALANX, OPEN APPROACH (02/12/16) EXCISION OF STOMACH, ENDO, DIAGN (11/23/17) EXCISION OF TOE NAIL, EXTERNAL APPROACH (02/12/16) INJECT ANTIBIOTIC (02/08/14) INJECT STEROID (02/09/12) INJECTION INTO JOINT (02/09/12) INSERTION OF INFUSION DEV INTO L SUBCLAV VEIN, PERC APPROACH (10/23/15) INSERTION OF INFUSION DEV INTO SUP VENA CAVA, PERC APPROACH (08/21/17) INSPECTION OF LOWER INTESTINAL TRACT, ENDO (11/23/17) LOC EXC LES METATAR/TAR (12/09/13) OTH LOCAL EXC OR DEST OF LESION OR TISSUE OF ANUS (03/15/13) OTHER SKIN & SUBQ I D (10/24/14) PART OSTECT-METATAR/TAR (07/09/14) RESECTION OF LEFT METATARSAL, OPEN APPROACH (06/02/17) ULTRASONOGRAPHY OF SUPERIOR VENA CAVA, GUIDANCE (07/05/17) VASCULAR CATH IRRIGATION (01/10/14) VENOUS CATHETERIZATION NEC (01/18/14) Family History: States: PR, CAD, Diabetes, Hypertension - Social History Hx Tobacco Use: No Hx Alcohol Use: No Hx Substance Use: No - Immunization History Hx Tetanus Toxoid Vaccination: Yes Hx Influenza Vaccination: No Hx Pneumococcal Vaccination: Yes Review Of Systems Constitutional: Negative for: Fever, Chills, Sweats, Weakness, Malaise Eyes: Negative for: Pain, Vision Change, Eyelid Inflammation ENT: Negative for: Ear Pain, Ear Discharge, Nose Pain, Nose Congestion, Mouth Pain Cardiovascular: Negative for: Chest Pain, Palpitations, Orthopnea, Edema Respiratory: Negative for: Cough, Shortness of Breath, SOB with Excertion, Pleu ritic Pain, Wheezing Gastrointestinal: Positive for: Rectal Pain. Negative for: Nausea, Vomiting, Abdominal Pain, Constipation, Melena, Hematochezia, Hematemesis Genitourinary: Negative for: Dysuria, Frequency, Incontinence, Hematuria, Vaginal Discharge, Vaginal Bleeding, Pelvic Pain Skin: Negative for: Rash, Lesions, Jaundice, Bruising Neurological: Negative for: Weakness, Numbness, Headache Psych: Negative for: Depression, Psychosis, Suicidal ideation, Withdrawal Physical Exam - Physical Exam Appears: Well, Non-toxic Skin: Normal Color, Warm Head: Atraumatic, Normacephalic Eye(s): bilateral: Normal Inspection, PERRL, EOMI Ear(s): Bilateral: Normal Nose: Normal Oral Mucosa: Moist Tongue: Normal Appearing Lips: Normal Appearing Teeth: Normal Dentition Gingiva: Normal Appearing Throat: Normal, No Erythema, No Exudate, No Drooling, No Mass Neck: Normal, Normal ROM, No Decreased ROM, No Midline Cervical Tenderness, No Paracervical Tenderness, Supple, Other (no meningeal signs) Chest: No Deformity, No Tenderness Cardiovascular: Rhythm Regular Respiratory: Normal Breath Sounds Gastrointestinal/Abdominal: Normal Exam, Soft, No Tenderness, No Organomegaly, No Mass, No Distention, No Guarding Rectal: Other (multiple ~4 cm abscess noted, capri rectal and perianal ) Back: Normal Inspection, No CVA Tenderness, No Vertebral Tenderness Extremity: Normal ROM, No Tenderness Neurological/Psych: Oriented x3, Normal Speech, Normal Cognition, No Cerebellar Signs, Normal Motor Gait: Steady ED Course And Treatment - Laboratory Results Result Diagrams: 08/14/18 23:58 08/14/18 23:58 O2 Sat by Pulse Oximetry: 96 Medical Decision Making Medical Decision Makin yr old transgender female w/ hx of Rectal abscesses, asthma, Dm2, DVT, HIV on HAART, HTN p/w rectal abscess. Multiple rectal abscess noted on exam, no dark or bloody stool per pt. No other complaints. Abdomen non-ttp. No genital d/c or rash noted. Pt has a noted hx of GAEL. Pt notes making good urine. Pending labs and likely CT, surgical consult and admission. Pending imaging and labs. 0102 x3 nurses attempted iv access without success I attempted IV access without success, pt notes that we are to make no more attempts from me or ER nurses She is also requesting another provider to attempt IV access WBC 22K, Cr 13, VBG ph 7.1: Consulted ICU 0138 Appreciate consult w/ surgical services assistant Dr. Walker: surgical team will follow inpatient appreciate consult w/ ICU Esme Reyes: recc picc line insertion RN in AM, PO bicarb, PO Abx and tele admission pt in NAD, continues to refuse md IV access / central line access and continued nurse attempts at IV access I endorsed my concern of worsening infection as well as elevated BUN / CR. Pt noted by concerns and states that despite the risk of or disability, she will wait for morning Picc RN for line insertion. Given good capacity, normal neuro examn and no SI / HI / depression or hallucinations as well as clear understanding of consequences of delay of recommended care will acquiese to patients wishes. paged Dr. Alanna Nathan for admission 0201 Appreciate consult w/ Dr. Haven Nathan: Pt is non-compliant w/ outpt and inpatient rx: we are to admit to hospitalist. 0206 Appreciate consult w/ Dr. Espinosa: to admit to his service pt in NAD, AOx3, MAEW, agreeable to plan Disposition - Disposition Disposition: HOSPITALIZED Disposition Time: 02:09 Condition: STABLE - Clinical Impression Clinical Impression: Rectal abscess
[2018-08-14] MEDS ORDERED: Sodium Chloride 0.9% 1,000 ML IV SCH (23:00)
[2018-08-15 00:07] LABS: BASO # 0.1 K/uL (0.0-0.2); BASO % 0.5 % (0.0-2.0); EOS % 0.1 % (0.0-4.0); HEMOGLOBIN 8.3 g/dL (11.0-16.0); LYMPH # 1.6 K/uL (1.0-4.3); LYMPH % 7.1 % (20.0-40.0); MEAN CORPUSCULAR HEMOGLOBIN 28.9 pg (27.0-31.0); MEAN CORPUSCULAR HGB CONC 32.4 g/dL (33.0-37.0); MEAN PLATELET VOLUME 7.1 fL (7.2-11.7); MONO # 0.9 K/uL (0.0-0.8); MONO % 3.9 % (0.0-10.0); NEUT # 19.5 K/uL (1.8-7.0); NEUT % 88.4 % (50.0-75.0); NRBC % 0.1 % (0.0-2.0); PLATELET COUNT 299 K/uL (130-400); RBC 2.88 Mil/uL (3.80-5.20); RED CELL DISTRIBUTION WIDTH 15.9 % (11.5-14.5); WHITE BLOOD COUNT 22.1 K/uL (4.8-10.8)
[2018-08-15 00:22] LABS: VENOUS BLOOD GAS BASE EXCESS -15.6 mmol/L (0.0-2.0); VENOUS BLOOD GAS PCO2 37 mmHg (40-60); VENOUS BLOOD GAS PO2 46 mm/Hg (30-55); VENOUS BLOOD PH 7.14 (7.32-7.43)
[2018-08-15] MEDS ORDERED: Piperacillin/Tazobact 3.375 GM in Sodium Chloride 100 ML IVPB SCH (00:45)
[2018-08-15 00:53] LABS: ALB/GLOB RATIO 0.7 (1.0-2.1); ALBUMIN 2.8 g/dL (3.5-5.0); CALCIUM 7.7 mg/dl (8.6-10.4)
[2018-08-15 01:21] LABS: ABG ALLEN TEST POS; ARTERIAL BLOOD GAS HCO3 12.6 mmol/L (21-28); ARTERIAL BLOOD GAS PCO2 28 mm/Hg (35-45); ARTERIAL BLOOD GAS PO2 83 mm/Hg (80-100); ARTERIAL BLOOD GAS TCO2 11.8 mmol/L (22-28)
[2018-08-15 01:26] LABS: LYMPHOCYTE 5 % (20-40); MONOCYTE 3 % (0-10); NEUTROPHIL 92 % (50-75); PLATELET ESTIMATE NORMAL (NORMAL); TOTAL CELLS COUNTED 100
[2018-08-15] MEDS ORDERED: Iohexol 240 (50 ml) PO ONE (02:14)
[2018-08-15] MEDS ORDERED: Iohexol 240 (50 ml) ONE (02:15)
--- NOTE | 2018-08-15 02:57 | CP.PCM.HP ---
<Yadira Sue - Last Filed: 08/15/18 05:29> History of Present Illness - History of Present Illness History of Present Illness: cc: rectal pain Patient is a 37 year old male to female transgender patient w/ pmhx of HIV(hx of non-compliance on HAART), DM2, HTN admitted for treatment of perirectal abscesses. Patient was recently admitted at [facility](08/10) however signed out AMA refusing further medical/surgical intervention. Patient reports he now noticed a new abscess near his rectum several days ago, draining yellow/bloody malodorous drainage, with worsening perirectal pain. Patient reports recent bloody BMs over the past few days as well. He reports fevers/chills, nausea and vomiting. Denies headache, dizziness, chest pain, SOB, diarrhea. pmhx: HIV, DM2, HTN pshx: L BKA meds: unknown allergies tylenol, ASA, dilaudid, darvocet, percocet, toradol, demerol sochx: 1/2ppd, denies alcohol/drug use famhx: unknown Present on Admission - Present on Admission Any Indicators Present on Admission: No Review of Systems - Constitutional Constitutional: Chills, Fever - Cardiovascular Cardiovascular: absent: Chest Pain, Palpitations - Respiratory Respiratory: absent: Cough, Dyspnea - Gastrointestinal Gastrointestinal: Constipation, Nausea, Vomiting. absent: Abdominal Pain, Diarrhea, Hematochezia - Genitourinary Genitourinary: absent: Difficulty Urinating, Dysuria, Urinary Hesitance - Integumentary Integumentary: New Lesions, Skin Ulcer Past Patient History - Infectious Disease Hx of Infectious Diseases: None - Past Medical History & Family History Past Medical History?: Yes - Past Social History Smoking Status: Former Smoker - CARDIAC Hx Hypertension: Yes Hx Peripheral Edema: Yes - PULMONARY Hx Asthma: Yes - NEUROLOGICAL Hx Seizures: No - HEENT Hx HEENT Problems: No - RENAL Hx Chronic Kidney Disease: Yes - HEMATOLOGICAL/ONCOLOGICAL Hx Anemia: Yes Hx Human Immunodeficiency Virus (HIV): Yes - INTEGUMENTARY Hx Dermatological Problems: Yes - MUSCULOSKELETAL/RHEUMATOLOGICAL Hx Musculoskeletal Disorders: Yes Hx Falls: Yes - GASTROINTESTINAL Hx Gastritis: Yes Hx Pancreatitis: Yes - GENITOURINARY/GYNECOLOGICAL Hx Sexually Transmitted Disorders: No - PSYCHIATRIC Hx Anxiety: Yes Hx Depression: Yes Hx Substance Use: No - ANESTHESIA Hx Anesthesia: Yes Hx Anesthesia Reactions: No Hx Malignant Hyperthermia: No Meds Allergies/Adverse Reactions: Allergies Allergy/AdvReac Type Severity Reaction Status Date / Time acetaminophen [From Tylenol] Allergy RASH Verified 08/14/18 22:29 aspirin Allergy RASH Verified 08/14/18 22:29 hydromorphone [From Dilaudid] Allergy RASH Verified 08/14/18 22:29 ketorolac tromethamine Allergy RASH Verified 08/14/18 22:29 [From Toradol] meperidine HCl [From Demerol] Allergy RASH Verified 08/14/18 22:29 oxycodone HCl [From Percocet] Allergy RASH Verified 08/14/18 22:29 peas Allergy ANAPHYLAXIS Verified 08/14/18 22:29 propoxyphene napsylate Allergy RASH Verified 08/14/18 22:29 [From Darvocet-N] Physical Exam - Constitutional Appears: Non-toxic, No Acute Distress - Head Exam Head Exam: ATRAUMATIC, NORMAL INSPECTION, NORMOCEPHALIC - Eye Exam Eye Exam: EOMI, Normal appearance Pupil Exam: NORMAL ACCOMODATION, PERRL - ENT Exam ENT Exam: Mucous Membranes Moist, Normal Exam - Neck Exam Neck exam: Positive for: Normal Inspection - Respiratory Exam Respiratory Exam: Decreased Breath Sounds, NORMAL BREATHING PATTERN - Cardiovascular Exam Cardiovascular Exam: Tachycardia, REGULAR RHYTHM, +S1, +S2 - GI/Abdominal Exam GI & Abdominal Exam: Normal Bowel Sounds, Soft. absent: Distended, Tenderness - Rectal Exam Rectal Exam: Deferred Additional comments: Perianal abscesses noted(several), diffusely erythematous and TTP, foul smelling sero-purulent drainage - Extremities Exam Extremities exam: Negative for: normal inspection Additional comments: left BKA - Neurological Exam Neurological exam: Alert, Oriented x3 - Psychiatric Exam Psychiatric exam: Agitated - Skin Skin Exam: Dry, Normal Color, Warm Results - Vital Signs Recent Vital Signs: Last Vital Signs Temp 98.4 F 08/15/18 02:29 Pulse 82 08/15/18 02:29 Resp 18 08/15/18 02:29 BP 137/86 08/15/18 02:29 Pulse Ox 99 08/15/18 02:29 - Labs Result Diagrams: 08/14/18 23:58 08/14/18 23:58 Labs: Laboratory Results - last 24 hr 08/14/18 08/14/18 08/15/18 23:58 23:58 00:16 WBC 22.1 H RBC 2.88 L Hgb 8.3 L Hct 25.6 L MCV 89.0 D MCH 28.9 MCHC 32.4 L RDW 15.9 H Plt Count 299 D MPV 7.1 L Neut % (Auto) 88.4 H Lymph % (Auto) 7.1 L [place] % (Auto) 3.9 Eos % (Auto) 0.1 Baso % (Auto) 0.5 Neut # (Auto) 19.5 H Lymph # (Auto) 1.6 [place] # (Auto) 0.9 H Eos # (Auto) 0.0 Baso # (Auto) 0.1 Neutrophils % (Manual) 92 H Lymphocytes % (Manual) 5 L Monocytes % (Manual) 3 Platelet Estimate Normal Puncture Site pCO2 pO2 46 HCO3 ABG pH ABG Total CO2 ABG O2 Saturation ABG Base Excess Nicho Test ABG Potassium VBG pH 7.14 L* VBG pCO2 37 L VBG HCO3 11.9 VBG Total CO2 13.7 L VBG O2 Sat (Calc) 78.4 H VBG Base Excess -15.6 L VBG Potassium 4.5 A-a O2 Difference Respiratory Index Glucose 171 H Lactate 1.0 Liter Flow FiO2 Crit Value Called To Dr mcclain Crit Value Called By Narinder rt Crit Value Read Back Y Blood Gas Notified Time 22 Sodium 136 134.0 Potassium 4.7 Chloride 105 106.0 Carbon Dioxide 12 L Anion Gap 24 H BUN 95 H Creatinine 13.2 H* D Est GFR ( Amer) 4 Est GFR (Non-Af Amer) 3 Random Glucose 168 H D Calcium 7.7 L Magnesium 1.9 Total Bilirubin 0.6 AST 75 H D ALT 42 Alkaline Phosphatase 228 H D Total Protein 7.0 Albumin 2.8 L Globulin 4.2 H Albumin/Globulin Ratio 0.7 L Arterial Blood Potassium Venous Blood Potassium 4.5 08/15/18 01:00 WBC RBC Hgb Hct MCV MCH MCHC RDW Plt Count MPV Neut % (Auto) Lymph % (Auto) [place] % (Auto) Eos % (Auto) Baso % (Auto) Neut # (Auto) Lymph # (Auto) [place] # (Auto) Eos # (Auto) Baso # (Auto) Neutrophils % (Manual) Lymphocytes % (Manual) Monocytes % (Manual) Platelet Estimate Puncture Site R rad pCO2 28 L pO2 83 HCO3 12.6 L ABG pH 7.20 L ABG Total CO2 11.8 L ABG O2 Saturation 96.0 ABG Base Excess -15.6 L Nicho Test Pos ABG Potassium 3.6 VBG pH VBG pCO2 VBG HCO3 VBG Total CO2 VBG O2 Sat (Calc) VBG Base Excess VBG Potassium A-a O2 Difference 32.0 Respiratory Index 0.4 Glucose 142 H Lactate 0.7 Liter Flow 0 FiO2 21.0 Crit Value Called To Crit Value Called By Crit Value Read Back Blood Gas Notified Time Sodium 139.0 Potassium Chloride 113.0 H Carbon Dioxide Anion Gap BUN Creatinine Est GFR ( Amer) Est GFR (Non-Af Amer) Random Glucose Calcium Magnesium Total Bilirubin AST ALT Alkaline Phosphatase Total Protein Albumin Globulin Albumin/Globulin Ratio Arterial Blood Potassium 3.6 Venous Blood Potassium Assessment & Plan - Assessment and Plan (Free Text) Assessment: 37 year old male to female transgendered pat w/ pmhx of HIV, DM2, HTN admitted for evaluation of capri-rectal abscesses Plan: Sepsis 2/2 abscesses -leukocytosis 22.1, left shift of 92, tachycardia 102 upon arrival -wound/blood cxs -PO Abx, clinda -no vascular access, PICC requested -f/u CT A/P -wound care -warm compresses prn -Sx consult, Dr. Fregoso Acute on Chronic kidney disease -metabolic acidosis, pH 7.2 -given sodium bicarb -Cr 13.2, up from 9.4 on 08/10; baseline 8- -renal diet -nephro consult, Dr. Young Anemia -hgb -f/u stool occult HIV -hold home meds pending verification DM2 -hold home meds -f/u hgb a1c -ISS-low -Accuchecks ACHS -hypoglycemia protocol -consistent carb diet HTN -continue home norvasc Ppx GI: not indicated VTE: SCD contraindication 2/2 BKA, AC contraindication 2/2 suspected GI bleed and anemia Discussed w/ Dr. Espinosa -Yadira Sue <Richard Espinosa - Last Filed: 08/15/18 06:19> Results - Vital Signs Recent Vital Signs: Last Vital Signs Temp 98 F 08/15/18 03:37 Pulse 105 H 08/15/18 03:37 Resp 20 08/15/18 03:37 BP 127/60 08/15/18 03:37 Pulse Ox 96 08/15/18 03:48 - Labs Result Diagrams: 08/14/18 23:58 08/14/18 23:58 Labs: Laboratory Results - last 24 hr 08/14/18 08/14/18 08/15/18 23:58 23:58 00:16 WBC 22.1 H RBC 2.88 L Hgb 8.3 L Hct 25.6 L MCV 89.0 D MCH 28.9 MCHC 32.4 L RDW 15.9 H Plt Count 299 D MPV 7.1 L Neut % (Auto) 88.4 H Lymph % (Auto) 7.1 L [place] % (Auto) 3.9 Eos % (Auto) 0.1 Baso % (Auto) 0.5 Neut # (Auto) 19.5 H Lymph # (Auto) 1.6 [place] # (Auto) 0.9 H Eos # (Auto) 0.0 Baso # (Auto) 0.1 Neutrophils % (Manual) 92 H Lymphocytes % (Manual) 5 L Monocytes % (Manual) 3 Platelet Estimate Normal Puncture Site pCO2 pO2 46 HCO3 ABG pH ABG Total CO2 ABG O2 Saturation ABG Base Excess Nicho Test ABG Potassium VBG pH 7.14 L* VBG pCO2 37 L VBG HCO3 11.9 VBG Total CO2 13.7 L VBG O2 Sat (Calc) 78.4 H VBG Base Excess -15.6 L VBG Potassium 4.5 A-a O2 Difference Respiratory Index Glucose 171 H Lactate 1.0 Liter Flow FiO2 Crit Value Called To Dr mcclain Crit Value Called By Narinder rt Crit Value Read Back Y Blood Gas Notified Time 22 Sodium 136 134.0 Potassium 4.7 Chloride 105 106.0 Carbon Dioxide 12 L Anion Gap 24 H BUN 95 H Creatinine 13.2 H* D Est GFR ( Amer) 4 Est GFR (Non-Af Amer) 3 Random Glucose 168 H D Calcium 7.7 L Magnesium 1.9 Total Bilirubin 0.6 AST 75 H D ALT 42 Alkaline Phosphatase 228 H D Total Protein 7.0 Albumin 2.8 L Globulin 4.2 H Albumin/Globulin Ratio 0.7 L Arterial Blood Potassium Venous Blood Potassium 4.5 08/15/18 01:00 WBC RBC Hgb Hct MCV MCH MCHC RDW Plt Count MPV Neut % (Auto) Lymph % (Auto) [place] % (Auto) Eos % (Auto) Baso % (Auto) Neut # (Auto) Lymph # (Auto) [place] # (Auto) Eos # (Auto) Baso # (Auto) Neutrophils % (Manual) Lymphocytes % (Manual) Monocytes % (Manual) Platelet Estimate Puncture Site R rad pCO2 28 L pO2 83 HCO3 12.6 L ABG pH 7.20 L ABG Total CO2 11.8 L ABG O2 Saturation 96.0 ABG Base Excess -15.6 L Nicho Test Pos ABG Potassium 3.6 VBG pH VBG pCO2 VBG HCO3 VBG Total CO2 VBG O2 Sat (Calc) VBG Base Excess VBG Potassium A-a O2 Difference 32.0 Respiratory Index 0.4 Glucose 142 H Lactate 0.7 Liter Flow 0 FiO2 21.0 Crit Value Called To Crit Value Called By Crit Value Read Back Blood Gas Notified Time Sodium 139.0 Potassium Chloride 113.0 H Carbon Dioxide Anion Gap BUN Creatinine Est GFR ( Amer) Est GFR (Non-Af Amer) Random Glucose Calcium Magnesium Total Bilirubin AST ALT Alkaline Phosphatase Total Protein Albumin Globulin Albumin/Globulin Ratio Arterial Blood Potassium 3.6 Venous Blood Potassium Assessment & Plan - Date & Time Date: 08/15/18 (I have seen and examined the patient. I agree with the findings and plan of care as documented by Dr. Sue. Patient with multiple anal abs cesses and SIRS positive. Monitor for hemodynamic instability. Consult to surgery. PICC nurse consulted for access. PO clinda for now. Blood cultures. Also with chronic kidney disease but patient has refused dialysis. Nephro consult. History of HIV infection. Verify home meds and continue. History of diabetes. NISS and accuchecks. Monitor for acute changes.) Time: 06:17 Attending/Attestation - Attestation I have personally seen and examined this patient.: Yes I have fully participated in the care of the patient.: Yes I have reviewed all pertinent clinical information: Yes
[2018-08-15 03:39] VITALS: RESP 20
[2018-08-15] MEDS ORDERED: Glucagon Recombinant 1 mg Inj IM PRN (04:10)
[2018-08-15] MEDS ORDERED: Dextrose 50% SYRINGE Inj (50 ml) IV PRN (04:10)
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
--- NOTE | 2018-08-15 06:54 | CP.PCM.CON ---
History of Present Illness - History of Present Illness History of Present Illness: CCM 37 yo patient with hx DVT /DM /HTN/CKD /HIV /Asthma /Gastritis/Anemia /Anxiety /Depression/Pancreatitis /REstal Abscesses to ED c/o Rectal abscesses draining x 3 days. Pt Denied chest pain /sob /n /v /d /fever /cough. After ED IV attempts pt refusing IV. ROS- as noted All- APAP /ASA /hydromorphone Social-+tob/ Meds- reviewed FH- Unknown PE T-98.5 P-75 R-16 BP-135/62 Neck- no jvdlungs- bilat coarse bs Hewart-rr aBd- obese, bs+, soft, nontender Ext- Left AKA, nontender Buttocks- perirectal induration, tenderness and purulent drainage Labs-reviewed A&P Perirectal Abscesses GAEL on CKD Met Acidosis HIV Anemia Asthma Anxiety/Depression Hx DVT IV hydration when pt agrees PO HCO3 until IV access [place] [facility] Nephrology eval /Plan for dialysis Surgery eval ID eval for HIV Re-consult prn Critical care time with patient 35 min Past Patient History - Infectious Disease Hx of Infectious Diseases: None - Past Medical History & Family History Past Medical History?: Yes - Past Social History Smoking Status: Former Smoker - CARDIAC Hx Hypertension: Yes Hx Peripheral Edema: Yes - PULMONARY Hx Asthma: Yes - NEUROLOGICAL Hx Seizures: No - HEENT Hx HEENT Problems: No - RENAL Hx Chronic Kidney Disease: Yes - HEMATOLOGICAL/ONCOLOGICAL Hx Anemia: Yes Hx Human Immunodeficiency Virus (HIV): Yes - INTEGUMENTARY Hx Dermatological Problems: Yes - MUSCULOSKELETAL/RHEUMATOLOGICAL Hx Musculoskeletal Disorders: Yes Hx Falls: Yes - GASTROINTESTINAL Hx Gastritis: Yes Hx Pancreatitis: Yes - GENITOURINARY/GYNECOLOGICAL Hx Sexually Transmitted Disorders: No - PSYCHIATRIC Hx Anxiety: Yes Hx Depression: Yes Hx Substance Use: No - ANESTHESIA Hx Anesthesia: Yes Hx Anesthesia Reactions: No Hx Malignant Hyperthermia: No Meds Allergies/Adverse Reactions: Allergies Allergy/AdvReac Type Severity Reaction Status Date / Time acetaminophen [From Tylenol] Allergy RASH Verified 08/14/18 22:29 aspirin Allergy RASH Verified 08/14/18 22:29 hydromorphone [From Dilaudid] Allergy RASH Verified 08/14/18 22:29 ketorolac tromethamine Allergy RASH Verified 08/14/18 22:29 [From Toradol] meperidine HCl [From Demerol] Allergy RASH Verified 08/14/18 22:29 oxycodone HCl [From Percocet] Allergy RASH Verified 08/14/18 22:29 peas Allergy ANAPHYLAXIS Verified 08/14/18 22:29 propoxyphene napsylate Allergy RASH Verified 08/14/18 22:29 [From Darvocet-N] - Medications Medications: Current Medications Amlodipine Besylate (Norvasc) 10 mg PO DAILY [facility] Clindamycin HCl (Cleocin) 150 mg PO Q6H [facility]; Protocol Last Admin: 08/15/18 06:10 Dose: 150 mg Dextrose (Dextrose 50% Inj) 0 ml IV STAT PRN; Protocol PRN Reason: Hypoglycemia Protocol Dextrose (Glutose 15) 0 gm PO ONCE PRN; Protocol PRN Reason: Hypoglycemia Protocol Glucagon (Glucagen Diagnostic Kit) 0 mg IM STAT PRN; Protocol PRN Reason: Hypoglycemia Protocol Dextrose (Dextrose 5% In Water 1000 Ml) 1,000 mls @ 0 mls/hr IV .Q0M PRN; Protocol PRN Reason: Hypoglycemia Protocol Insulin Human Regular (Novolin R) 0 unit SC ACHS [facility]; Protocol Results - Vital Signs Recent Vital Signs: Last Vital Signs Temp 98 F 08/15/18 03:37 Pulse 105 H 08/15/18 03:37 Resp 20 08/15/18 03:37 BP 127/60 08/15/18 03:37 Pulse Ox 96 08/15/18 03:48 - Labs Result Diagrams: 08/14/18 23:58 08/14/18 23:58 Labs: Laboratory Results - last 24 hr 08/14/18 08/14/18 08/15/18 23:58 23:58 00:16 WBC 22.1 H RBC 2.88 L Hgb 8.3 L Hct 25.6 L MCV 89.0 D MCH 28.9 MCHC 32.4 L RDW 15.9 H Plt Count 299 D MPV 7.1 L Neut % (Auto) 88.4 H Lymph % (Auto) 7.1 L [place] % (Auto) 3.9 Eos % (Auto) 0.1 Baso % (Auto) 0.5 Neut # (Auto) 19.5 H Lymph # (Auto) 1.6 [place] # (Auto) 0.9 H Eos # (Auto) 0.0 Baso # (Auto) 0.1 Neutrophils % (Manual) 92 H Lymphocytes % (Manual) 5 L Monocytes % (Manual) 3 Platelet Estimate Normal Puncture Site pCO2 pO2 46 HCO3 ABG pH ABG Total CO2 ABG O2 Saturation ABG Base Excess Nicho Test ABG Potassium VBG pH 7.14 L* VBG pCO2 37 L VBG HCO3 11.9 VBG Total CO2 13.7 L VBG O2 Sat (Calc) 78.4 H VBG Base Excess -15.6 L VBG Potassium 4.5 A-a O2 Difference Respiratory Index Glucose 171 H Lactate 1.0 Liter Flow FiO2 Crit Value Called To Dr mcclain Crit Value Called By Narinder rt Crit Value Read Back Y Blood Gas Notified Time 22 Sodium 136 134.0 Potassium 4.7 Chloride 105 106.0 Carbon Dioxide 12 L Anion Gap 24 H BUN 95 H Creatinine 13.2 H* D Est GFR ( Amer) 4 Est GFR (Non-Af Amer) 3 POC Glucose (mg/dL) Random Glucose 168 H D Calcium 7.7 L Magnesium 1.9 Total Bilirubin 0.6 AST 75 H D ALT 42 Alkaline Phosphatase 228 H D Total Protein 7.0 Albumin 2.8 L Globulin 4.2 H Albumin/Globulin Ratio 0.7 L Arterial Blood Potassium Venous Blood Potassium 4.5 08/15/18 08/15/18 01:00 06:26 WBC RBC Hgb Hct MCV MCH MCHC RDW Plt Count MPV Neut % (Auto) Lymph % (Auto) [place] % (Auto) Eos % (Auto) Baso % (Auto) Neut # (Auto) Lymph # (Auto) [place] # (Auto) Eos # (Auto) Baso # (Auto) Neutrophils % (Manual) Lymphocytes % (Manual) Monocytes % (Manual) Platelet Estimate Puncture Site R rad pCO2 28 L pO2 83 HCO3 12.6 L ABG pH 7.20 L ABG Total CO2 11.8 L ABG O2 Saturation 96.0 ABG Base Excess -15.6 L Nicho Test Pos ABG Potassium 3.6 VBG pH VBG pCO2 VBG HCO3 VBG Total CO2 VBG O2 Sat (Calc) VBG Base Excess VBG Potassium A-a O2 Difference 32.0 Respiratory Index 0.4 Glucose 142 H Lactate 0.7 Liter Flow 0 FiO2 21.0 Crit Value Called To Crit Value Called By Crit Value Read Back Blood Gas Notified Time Sodium 139.0 Potassium Chloride 113.0 H Carbon Dioxide Anion Gap BUN Creatinine Est GFR ( Amer) Est GFR (Non-Af Amer) POC Glucose (mg/dL) 203 H Random Glucose Calcium Magnesium Total Bilirubin AST ALT Alkaline Phosphatase Total Protein Albumin Globulin Albumin/Globulin Ratio Arterial Blood Potassium 3.6 Venous Blood Potassium Assessment & Plan (1) Rectal abscess Status: Acute (2) Acute on chronic renal failure Status: Acute (3) Anemia Status: Chronic (4) HIV (human immunodeficiency virus infection) Status: Chronic (5) DM II (diabetes mellitus, type II), controlled Status: Chronic (6) Metabolic acidosis Status: Acute
[2018-08-15 07:16] LABS: BASO # 0.1 K/uL (0.0-0.2); BASO % 0.4 % (0.0-2.0); EOS # 0.1 K/uL (0.0-0.7); EOS % 0.7 % (0.0-4.0); LYMPH # 1.5 K/uL (1.0-4.3); LYMPH % 7.7 % (20.0-40.0); MEAN CELL VOLUME 88.9 fL (81.0-99.0); MEAN CORPUSCULAR HEMOGLOBIN 29.1 pg (27.0-31.0); MEAN CORPUSCULAR HGB CONC 32.8 g/dL (33.0-37.0); MEAN PLATELET VOLUME 7.3 fL (7.2-11.7); NEUT # 16.6 K/uL (1.8-7.0); NEUT % 86.2 % (50.0-75.0); NRBC % 0.1 % (0.0-2.0); PLATELET COUNT 288 K/uL (130-400); RBC 2.76 Mil/uL (3.80-5.20); RED CELL DISTRIBUTION WIDTH 15.9 % (11.5-14.5); WHITE BLOOD COUNT 19.2 K/uL (4.8-10.8)
[2018-08-15 07:20] LABS: INR 1.1; PARTIAL THROMBOPLASTIN TIME 31.6 SECONDS (21-34); PROTHROMBIN TIME 12.3 SECONDS (9.7-12.2)
[2018-08-15] MEDS ORDERED: (Novolin R) Insulin Human Regular 100 units/ml vial SC SCH (07:30)
[2018-08-15 07:54] VITALS: BP 111/64; PULSE 102; TEMP 98.2; O2SAT 100
[2018-08-15 08:21] LABS: ALB/GLOB RATIO 0.7 (1.0-2.1); ALBUMIN 2.6 g/dL (3.5-5.0); CALCIUM 7.3 mg/dl (8.6-10.4)
[2018-08-15] MEDS ORDERED: Lactobacillus Acidophilus 500 MU Cap PO SCH (08:56)
--- NOTE | 2018-08-15 09:19 | RAD ---
Chest x-ray single frontal view HISTORY: Tachycardia. COMPARISON: 08/25/2017 FINDINGS: Suboptimal technique limits evaluation. Moderate to severe venous congestion with prominent diffuse airspace opacification throughout both lung mazariegos. Small left pleural effusion. Elevated right hemidiaphragm. Cardiomegaly. Enlarged ectatic aorta. Degenerative changes in the spine. IMPRESSION: Suboptimal technique limits evaluation. Moderate to severe venous congestion with prominent diffuse airspace opacification throughout both lung mazariegos. Small left pleural effusion. Elevated right hemidiaphragm. Cardiomegaly. Enlarged ectatic aorta. Further evaluation with chest PA and lateral view and or chest CT may be helpful if clinically indicated.
--- NOTE | 2018-08-15 09:20 | CP.PCM.DIS ---
<Gustavo Valverde - Last Filed: 08/16/18 16:43> Provider - Provider Date of Admission: 08/15/18 02:08 Attending physician: Richard Espinosa MD Consults: 08/15/18 04:11 Nursing Referral for Palliative Care Routine Comment: Physician Instructions: Reason For Exam: eval Nursing Referral for Wound Care Routine Comment: Physician Instructions: Reason For Exam: rectal abcess 08/15/18 04:53 General Surgery Consult Routine Comment: Consulting Provider: Nicolette Fregoso Consulting Physician: Nicolette Fregoso Reason for Consult: perirectal abscess 08/15/18 08:00 Nephrology Consult Routine Comment: Consulting Provider: Mango Young Consulting Physician: Mango Young Reason for Consult: acute on CKD 08/15/18 08:42 Infectious Disease Consult Routine Comment: Consulting Provider: Jarred Del Valle Consulting Physician: Jarred Del Valle Reason for Consult: Hs o0f HIV, Perirectal abscess Time Spent in preparation of Discharge (in minutes): 45 Hospital Course - Lab Results Lab Results: Most Recent Lab Values WBC 19.2 K/uL (4.8-10.8) H 08/15/18 07:00 RBC 2.76 Mil/uL (3.80-5.20) L 08/15/18 07:00 Hgb 8.0 g/dL (11.0-16.0) L 08/15/18 07:00 Hct 24.5 % (34.0-47.0) L 08/15/18 07:00 MCV 88.9 fL (81.0-99.0) 08/15/18 07:00 MCH 29.1 pg (27.0-31.0) 08/15/18 07:00 MCHC 32.8 g/dL (33.0-37.0) L 08/15/18 07:00 RDW 15.9 % (11.5-14.5) H 08/15/18 07:00 Plt Count 288 K/uL (130-400) 08/15/18 07:00 MPV 7.3 fL (7.2-11.7) 08/15/18 07:00 Neut % (Auto) 86.2 % (50.0-75.0) H 08/15/18 07:00 Lymph % (Auto) 7.7 % (20.0-40.0) L 08/15/18 07:00 [place] % (Auto) 5.0 % (0.0-10.0) 08/15/18 07:00 Eos % (Auto) 0.7 % (0.0-4.0) 08/15/18 07:00 Baso % (Auto) 0.4 % (0.0-2.0) 08/15/18 07:00 Neut # (Auto) 16.6 K/uL (1.8-7.0) H 08/15/18 07:00 Lymph # (Auto) 1.5 K/uL (1.0-4.3) 08/15/18 07:00 [place] # (Auto) 1.0 K/uL (0.0-0.8) H 08/15/18 07:00 Eos # (Auto) 0.1 K/uL (0.0-0.7) 08/15/18 07:00 Baso # (Auto) 0.1 K/uL (0.0-0.2) 08/15/18 07:00 Neutrophils % (Manual) 92 % (50-75) H 08/14/18 23:58 Lymphocytes % (Manual) 5 % (20-40) L 08/14/18 23:58 Monocytes % (Manual) 3 % (0-10) 08/14/18 23:58 Platelet Estimate Normal (NORMAL) 08/14/18 23:58 PT 12.3 SECONDS (9.7-12.2) H 08/15/18 07:00 INR 1.1 08/15/18 07:00 APTT 31.6 SECONDS (21-34) 08/15/18 07:00 Puncture Site R rad 08/15/18 01:00 pCO2 28 mm/Hg (35-45) L 08/15/18 01:00 pO2 83 mm/Hg (80-100) 08/15/18 01:00 HCO3 12.6 mmol/L (21-28) L 08/15/18 01:00 ABG pH 7.20 (7.35-7.45) L 08/15/18 01:00 ABG Total CO2 11.8 mmol/L (22-28) L 08/15/18 01:00 ABG O2 Saturation 96.0 % (95-98) 08/15/18 01:00 ABG Base Excess -15.6 mmol/L (-2.0-3.0) L 08/15/18 01:00 Nihco Test Pos 08/15/18 01:00 ABG Potassium 3.6 mmol/L (3.6-5.2) 08/15/18 01:00 VBG pH 7.14 (7.32-7.43) L* 08/15/18 00:16 VBG pCO2 37 mmHg (40-60) L 08/15/18 00:16 VBG HCO3 11.9 mmol/L 08/15/18 00:16 VBG Total CO2 13.7 mmol/L (22-28) L 08/15/18 00:16 VBG O2 Sat (Calc) 78.4 % (40-65) H 08/15/18 00:16 VBG Base Excess -15.6 mmol/L (0.0-2.0) L 08/15/18 00:16 VBG Potassium 4.5 mmol/L (3.6-5.2) 08/15/18 00:16 A-a O2 Difference 32.0 mm/Hg 08/15/18 01:00 Respiratory Index 0.4 08/15/18 01:00 Sodium 139.0 mmol/l (132-148) 08/15/18 01:00 Chloride 113.0 mmol/L (98-107) H 08/15/18 01:00 Glucose 142 mg/dl (65-105) H 08/15/18 01:00 Lactate 0.7 mmol/L (0.7-2.1) 08/15/18 01:00 Liter Flow 0 08/15/18 01:00 FiO2 21.0 % 08/15/18 01:00 Crit Value Called To Dr mcclain 08/15/18 00:16 Crit Value Called By Narinder rt 08/15/18 00:16 Crit Value Read Back Y 08/15/18 00:16 Blood Gas Notified Time 22 08/15/18 00:16 Sodium 138 mmol/L (132-148) 08/15/18 07:00 Potassium 4.4 mmol/L (3.6-5.2) 08/15/18 07:00 Chloride 106 mmol/L (98-107) 08/15/18 07:00 Carbon Dioxide 15 mmol/L (22-30) L 08/15/18 07:00 Anion Gap 22 (10-20) H 08/15/18 07:00 BUN 98 mg/dL (7-17) H 08/15/18 07:00 Creatinine 13.1 mg/dL (0.7-1.2) H* 08/15/18 07:00 Est GFR ( Amer) 4 08/15/18 07:00 Est GFR (Non-Af Amer) 3 08/15/18 07:00 POC Glucose (mg/dL) 203 mg/dL (65-110) H 08/15/18 06:26 Random Glucose 184 mg/dL (65-105) H 08/15/18 07:00 Hemoglobin A1c 7.0 % (4.2-6.5) H 08/15/18 07:00 Calcium 7.3 mg/dl (8.6-10.4) L 08/15/18 07:00 Phosphorus 8.6 mg/dL (2.5-4.5) H 08/15/18 07:00 Magnesium 1.9 mg/dL (1.6-2.3) 08/15/18 07:00 Total Bilirubin 0.4 mg/dL (0.2-1.3) 08/15/18 07:00 AST 69 U/L (14-36) H 08/15/18 07:00 ALT 38 U/L (9-52) 08/15/18 07:00 Alkaline Phosphatase 242 U/L (38-126) H 08/15/18 07:00 Total Protein 6.4 g/dL (6.3-8.3) 08/15/18 07:00 Albumin 2.6 g/dL (3.5-5.0) L 08/15/18 07:00 Globulin 3.8 gm/dL (2.2-3.9) 08/15/18 07:00 Albumin/Globulin Ratio 0.7 (1.0-2.1) L 08/15/18 07:00 Arterial Blood Potassium 3.6 mmol/L (3.6-5.2) 08/15/18 01:00 Venous Blood Potassium 4.5 mmol/L (3.6-5.2) 08/15/18 00:16 - Hospital Course Hospital Course: After introducing ourselves to Ms Elizabeth, I started to explain to her the multiple issues that we were working on and the plan of care. She explained that she understood about the perirectal abscesses and that we were going to coordinate with Surgery Team to get this done. Explained the need for IV access but that this would have to be done through a Triple Lumen catheter as we wanted to preserve the vasculature of the arms (therefore PICC could not be used at this time) for the likely need for HD considering her CKD Stage 5. Patient then became upset and stated that we were keeping things from her. I tried to further explain to her the rest of her Assessment and Plans but she stated that she wanted to leave the hospital and sign AMA. I explained to her the danger of doing so (sepsis from the perirectal abscess and that this could lead to her ). Despite understanding the dangers she continued to want to sign AMA and this was done in the presence of resident Dr. Valverde and Nurse Regine. Prescriptions for Cipro and Clindamycin were provided to her and we explained their use for the perirectal abscess. Eliud Nathan D.O. Discharge Exam - Head Exam Head Exam: ATRAUMATIC, NORMAL INSPECTION, NORMOCEPHALIC Additional comments: pt refused Discharge Plan - Discharge Medications Prescriptions: Acidoph/L.bulg/Bif.b/S.thermop [Bacid Caplet] 1 each PO BID #14 tablet Ciprofloxacin HCl [Cipro] 500 mg PO BID #14 tablet Clindamycin [Cleocin] 300 mg PO BID #14 cap - Follow Up Plan Condition: STABLE Disposition: AGAINST MEDICAL ADVICE <Eliud Nathan - Last Filed: 08/16/18 17:19> Provider - Provider Date of Admission: 08/15/18 02:08 Attending physician: Richard Espinosa MD Consults: 08/15/18 04:11 Nursing Referral for Palliative Care Routine Comment: Physician Instructions: Reason For Exam: eval Nursing Referral for Wound Care Routine Comment: Physician Instructions: Reason For Exam: rectal abcess 08/15/18 04:53 General Surgery Consult Routine Comment: Consulting Provider: Nicolette Fregoso Consulting Physician: Nicolette Fregoso Reason for Consult: perirectal abscess 08/15/18 08:00 Nephrology Consult Routine Comment: Consulting Provider: Mango Young Consulting Physician: Mango Young Reason for Consult: acute on CKD 08/15/18 08:42 Infectious Disease Consult Routine Comment: Consulting Provider: Jarred Del Valle Consulting Physician: Jarred Del Valle Reason for Consult: Hs o0f HIV, Perirectal abscess Hospital Course - Lab Results Lab Results: Micro Results 08/15/18 00:43 Abscess - Buttock-Right Gram Stain - Final 08/15/18 00:43 Abscess - Buttock-Right Wound Culture - Preliminary Gram Negative Ryan 08/15/18 05:10 Blood Blood Culture - Preliminary NO GROWTH AFTER 24 HOURS 08/15/18 05:10 Blood Blood Culture - Preliminary NO GROWTH AFTER 24 HOURS Most Recent Lab Values WBC 19.2 K/uL (4.8-10.8) H 08/15/18 07:00 RBC 2.76 Mil/uL (3.80-5.20) L 08/15/18 07:00 Hgb 8.0 g/dL (11.0-16.0) L 08/15/18 07:00 Hct 24.5 % (34.0-47.0) L 08/15/18 07:00 MCV 88.9 fL (81.0-99.0) 08/15/18 07:00 MCH 29.1 pg (27.0-31.0) 08/15/18 07:00 MCHC 32.8 g/dL (33.0-37.0) L 08/15/18 07:00 RDW 15.9 % (11.5-14.5) H 08/15/18 07:00 Plt Count 288 K/uL (130-400) 08/15/18 07:00 MPV 7.3 fL (7.2-11.7) 08/15/18 07:00 Neut % (Auto) 86.2 % (50.0-75.0) H 08/15/18 07:00 Lymph % (Auto) 7.7 % (20.0-40.0) L 08/15/18 07:00 [place] % (Auto) 5.0 % (0.0-10.0) 08/15/18 07:00 Eos % (Auto) 0.7 % (0.0-4.0) 08/15/18 07:00 Baso % (Auto) 0.4 % (0.0-2.0) 08/15/18 07:00 Neut # (Auto) 16.6 K/uL (1.8-7.0) H 08/15/18 07:00 Lymph # (Auto) 1.5 K/uL (1.0-4.3) 08/15/18 07:00 [place] # (Auto) 1.0 K/uL (0.0-0.8) H 08/15/18 07:00 Eos # (Auto) 0.1 K/uL (0.0-0.7) 08/15/18 07:00 Baso # (Auto) 0.1 K/uL (0.0-0.2) 08/15/18 07:00 Neutrophils % (Manual) 69 % (50-75) 08/15/18 07:00 Band Neutrophils % 16 % (0-2) H* 08/15/18 07:00 Lymphocytes % (Manual) 10 % (20-40) L 08/15/18 07:00 Monocytes % (Manual) 3 % (0-10) 08/15/18 07:00 Eosinophils % (Manual) 2 % (0-4) 08/15/18 07:00 Platelet Estimate Normal (NORMAL) 08/15/18 07:00 Hypochromasia (manual) Slight 08/15/18 07:00 Poikilocytosis (manual Slight 08/15/18 07:00 Anisocytosis (manual) Slight 08/15/18 07:00 Ariella Cells Slight 08/15/18 07:00 PT 12.3 SECONDS (9.7-12.2) H 08/15/18 07:00 INR 1.1 08/15/18 07:00 APTT 31.6 SECONDS (21-34) 08/15/18 07:00 Puncture Site R rad 08/15/18 01:00 pCO2 28 mm/Hg (35-45) L 08/15/18 01:00 pO2 83 mm/Hg (80-100) 08/15/18 01:00 HCO3 12.6 mmol/L (21-28) L 08/15/18 01:00 ABG pH 7.20 (7.35-7.45) L 08/15/18 01:00 ABG Total CO2 11.8 mmol/L (22-28) L 08/15/18 01:00 ABG O2 Saturation 96.0 % (95-98) 08/15/18 01:00 ABG Base Excess -15.6 mmol/L (-2.0-3.0) L 08/15/18 01:00 Nicho Test Pos 08/15/18 01:00 ABG Potassium 3.6 mmol/L (3.6-5.2) 08/15/18 01:00 VBG pH 7.14 (7.32-7.43) L* 08/15/18 00:16 VBG pCO2 37 mmHg (40-60) L 08/15/18 00:16 VBG HCO3 11.9 mmol/L 08/15/18 00:16 VBG Total CO2 13.7 mmol/L (22-28) L 08/15/18 00:16 VBG O2 Sat (Calc) 78.4 % (40-65) H 08/15/18 00:16 VBG Base Excess -15.6 mmol/L (0.0-2.0) L 08/15/18 00:16 VBG Potassium 4.5 mmol/L (3.6-5.2) 08/15/18 00:16 A-a O2 Difference 32.0 mm/Hg 08/15/18 01:00 Respiratory Index 0.4 08/15/18 01:00 Sodium 139.0 mmol/l (132-148) 08/15/18 01:00 Chloride 113.0 mmol/L (98-107) H 08/15/18 01:00 Glucose 142 mg/dl (65-105) H 08/15/18 01:00 Lactate 0.7 mmol/L (0.7-2.1) 08/15/18 01:00 Liter Flow 0 08/15/18 01:00 FiO2 21.0 % 08/15/18 01:00 Crit Value Called To Dr mcclain 08/15/18 00:16 Crit Value Called By Narinder rt 08/15/18 00:16 Crit Value Read Back Y 08/15/18 00:16 Blood Gas Notified Time 08/15/18 00:16 Sodium 138 mmol/L (132-148) 08/15/18 07:00 Potassium 4.4 mmol/L (3.6-5.2) 08/15/18 07:00 Chloride 106 mmol/L (98-107) 08/15/18 07:00 Carbon Dioxide 15 mmol/L (22-30) L 08/15/18 07:00 Anion Gap 22 (10-20) H 08/15/18 07:00 BUN 98 mg/dL (7-17) H 08/15/18 07:00 Creatinine 13.1 mg/dL (0.7-1.2) H* 08/15/18 07:00 Est GFR ( Amer) 4 08/15/18 07:00 Est GFR (Non-Af Amer) 3 08/15/18 07:00 POC Glucose (mg/dL) 203 mg/dL (65-110) H 08/15/18 06:26 Random Glucose 184 mg/dL (65-105) H 08/15/18 07:00 Hemoglobin A1c 7.0 % (4.2-6.5) H 08/15/18 07:00 Calcium 7.3 mg/dl (8.6-10.4) L 08/15/18 07:00 Phosphorus 8.6 mg/dL (2.5-4.5) H 08/15/18 07:00 Magnesium 1.9 mg/dL (1.6-2.3) 08/15/18 07:00 Total Bilirubin 0.4 mg/dL (0.2-1.3) 08/15/18 07:00 AST 69 U/L (14-36) H 08/15/18 07:00 ALT 38 U/L (9-52) 08/15/18 07:00 Alkaline Phosphatase 242 U/L (38-126) H 08/15/18 07:00 Total Protein 6.4 g/dL (6.3-8.3) 08/15/18 07:00 Albumin 2.6 g/dL (3.5-5.0) L 08/15/18 07:00 Globulin 3.8 gm/dL (2.2-3.9) 08/15/18 07:00 Albumin/Globulin Ratio 0.7 (1.0-2.1) L 08/15/18 07:00 Arterial Blood Potassium 3.6 mmol/L (3.6-5.2) 08/15/18 01:00 Venous Blood Potassium 4.5 mmol/L (3.6-5.2) 08/15/18 00:16 Attending/Attestation - Attestation I have personally seen and examined this patient.: Yes I have fully participated in the care of the patient.: Yes I have reviewed all pertinent clinical information, including history, physical exam and plan: Yes Notes (Text): 08/16/18 17:18 This is a late entry. Attempt was made to see this patient on 08/15/18. Please see Physician Communication Note dated 08/15/18. Eliud Nathan D.O.
--- NOTE | 2018-08-15 09:23 | CP.PCM.PCO ---
Physician Communication Note - Physician Communication Note Physician Communication Note: Please see above
[2018-08-15 09:35] LABS: BANDS 16 % (0-2); EOSINOPHIL 2 % (0-4); LYMPHOCYTE 10 % (20-40); MONOCYTE 3 % (0-10); NEUTROPHIL 69 % (50-75); TOTAL CELLS COUNTED 100
[2018-08-15 09:36] LABS: ANISOCYTOSIS SLIGHT; HYPOCHROMIC SLIGHT; PLATELET ESTIMATE NORMAL (NORMAL); POIKILOCYTOSIS SLIGHT
[2018-08-15 09:37] LABS: BURR CELLS SLIGHT
== END 2018-08-15 09:55 | disposition left against medical advice (07) | DRG 394 ==
LOC: C.ER 22:22 → C.5S 08-15 02:08
PROVIDERS: ADMIT Family Medicine; ATTEND Family Medicine
DX: K61.1 Rectal abscess (principal); B20 Human immunodeficiency virus [HIV] disease; E87.2 Acidosis; I12.9 Hypertensive chronic kidney disease with stage 1 through stage 4 chronic kidney disease, or unspecified chronic kidney disease; N18.9 Chronic kidney disease, unspecified; F64.9 Gender identity disorder, unspecified; E11.22 Type 2 diabetes mellitus with diabetic chronic kidney disease; D64.9 Anemia, unspecified; F32.9 Major depressive disorder, single episode, unspecified; F41.9 Anxiety disorder, unspecified; J45.909 Unspecified asthma, uncomplicated; Z86.718 Personal history of other venous thrombosis and embolism; Z79.4 Long term (current) use of insulin; Z87.891 Personal history of nicotine dependence; Z89.512 Acquired absence of left leg below knee; Z91.19 Patient's noncompliance with other medical treatment and regimen; Z88.6 Allergy status to analgesic agent; Z82.49 Family history of ischemic heart disease and other diseases of the circulatory system